=== PATIENT | female | born 1945 | race Caucasian/White ===

== ENCOUNTER 2017-10-06 11:18 | Emergency (ER) | payer OTHER, BC ==
[2017-10-06] MEDS ORDERED: METHYLPREDNISOLONE 125 MG INJ ONE (12:00)
[2017-10-06] MEDS ORDERED: LEVALBUTEROL 1.25 MG/3 ML NEB ONE (12:00)
[2017-10-06] MEDS ORDERED: IPRATROPIUM BROM 0.5MG/2.5ML ONE (12:00)
[2017-10-06 12:12] LABS: Absolute Lymphocytes (CBC) 1.5 K/uL (0.7-4.9); Absolute Monocytes 0.4 K/uL (0.1-1.3); Absolute Neutrophil 4.4 K/uL (1.8-8.0); Basophils % 0.5 % (0-1.3); Eosinophils % 8.3 % (0-4.4); Hematocrit 33.3 % (36.0-45.0); Lymphocytes % 21.8 % (15.3-44.8); MCH 30.1 pg (27.0-35.0); MCV 93.5 fL (80-100); MPV 10.2 fL (7.6-11.3); Monocytes % 6.4 % (3.3-12.3); RBC Red Blood Cell Count 3.56 M/uL (3.86-4.86)
[2017-10-06] MEDS ORDERED: MAGNESIUM SULFATE 1 gm IVPB 1 GM/100 ML BAG IV ONE (12:17)
[2017-10-06 12:41] LABS: Potassium 5.3 mEq/L (3.6-5.0)
--- NOTE | 2017-10-06 13:00 | RAD REPORT ---
EXAM DESCRIPTION: RAD - Chest Pa And Lat (2 Views) - 10/06/2017 12:53 pm CLINICAL HISTORY: Shortness of breath. COMPARISON: 06/23/2017, 05/19/2017 TECHNIQUE: PA and lateral views of the chest were obtained. FINDINGS: The lungs are hyperexpanded compatible with COPD. The heart is upper limit of normal in si ze. No fracture or aggressive bony process. IMPRESSION: COPD without acute process identified.
[2017-10-06] MEDS ORDERED: ALBUTEROL 2.5 MG/3 ML NEB SOL ONE (13:43)
--- NOTE | 2017-10-06 14:20 | ER ---
Nurse's Notes [facility] Name: Macrina Mason Age: 71 yrs Sex: Female : 1945 Arrival Date: 10/06/2017 Time: 11:23 Bed 6 Private MD: Diagnosis: Chronic obstructive pulmonary disease with (acute) exacerbation;Hyperkalemia Presentation: 10/06 11:38 Presenting complaint: Patient states: "I got diagnosed with COPD in Jul and I got lk1 really short of breath about 3-4 days ago. I am using about 5 breathing treatments a day.". Transition of care: patient was not received from another setting of care. Onset of symptoms was October 02, 2017. Care prior to arrival: None. 11:38 Method Of Arrival: Wheelchair lk1 11:38 Acuity: EVENS 2 lk1 Triage Assessment: 11:39 General: Appears distressed, Behavior is calm, cooperative, appropriate for age. Pain: lk1 Complains of pain in chest and head Pain currently is 7 out of 10 on a pain scale. Respiratory: Reports shortness of breath cough that is air hunger labored breathing pain with cough Airway is patent Respiratory effort is labored, with nasal flaring, pursed lip, using tripod position, Respiratory pattern is symmetrical, tachypnea Onset: The symptoms/episode began/occurred 3-4 days ago, the patient has moderate shortness of breath. Historical: - Allergies: 11:38 No Known Allergies; lk1 - PMHx: 11:38 Schizophrenia; DVT; Bipolar disorder; allergies; COPD; lk1 - PSHx: 11:38 ERIKA TKR; sinus; lk1 - Immunization history:: Adult Immunizations up to date. - Social history:: Smoking status: unknown. Screenin:40 Abuse screen: Denies threats or abuse. Denies injuries from another. Nutritional hj screening: No deficits noted. Tuberculosis screening: No symptoms or risk factors identified. Fall Risk None identified. Assessment: 11:40 General: Appears in no apparent distress. uncomfortable, Behavior is cooperative, hj appropriate for age, anxious. Pain: Denies pain. Neuro: Level of Consciousness is awake, alert, obeys commands, Oriented to person, place, time, situation, Appropriate for age. Cardiovascular: Capillary refill < 3 seconds Patient's skin is warm and dry. Cardiovascular: Rhythm is regular. Respiratory: Airway is patent Respiratory effort is labored, Respiratory pattern is tachypnea Breath sounds with wheezes. GI: Abdomen is obese. : No signs and/or symptoms were reported regarding the genitourinary system. EENT: No signs and/or symptoms were reported regarding the EENT system. Derm: No signs and/or symptoms reported regarding the dermatologic system. Musculoskeletal: No signs and/or symptoms reported regarding the musculoskeletal system. 12:45 Reassessment: Patient and/or family updated on plan of care and expected duration. Pain hj level reassessed. Patient is alert, oriented x 3, equal unlabored respirations, skin warm/dry/pink. Patient states feeling better. 13:52 Reassessment: Patient and/or family updated on plan of care and expected duration. Pain hj level reassessed. Patient is alert, oriented x 3, equal unlabored respirations, skin warm/dry/pink. Patient states feeling better. Patient states symptoms have improved. Vital Signs: 11:36 BP 158 / 63; Pulse 84; Resp 26; Temp 97.6(O); Pulse Ox 97% on R/A; Weight 134.26 kg lk1 (R); Height 5 ft. 10 in. (177.80 cm) (R); 12:08 BP 131 / 64; Pulse 84; Resp 18; Pulse Ox 100% on Nebulizer Mask; hj 13:51 BP 139 / 70; Pulse 85; Resp 18; Pulse Ox 100% on Nebulizer Mask; hj 14:48 BP 140 / 68; Pulse 86; Resp 18; Pulse Ox 97% on R/A; hj 11:36 Body Mass Index 42.47 (134.26 kg, 177.80 cm) lk1 ED Course: 11:23 Patient arrived in ED. mr 11:35 Mary Gage, JOHN [facility]. kb 11:35 Kameron Phipps MD is Attending Physician. kb 11:38 Paulino Valerio, BENTON is Primary Nurse. hj 11:39 Triage completed. lk1 11:40 Arm band placed on left wrist. lk1 11:40 Patient has correct armband on for positive identification. Placed in gown. Bed in low hj position. Call light in reach. Side rails up X 1. 11:40 Initial lab(s) drawn, by me, sent to lab. Inserted saline lock: 22 gauge in right hand, hj using aseptic technique. Blood collected. 12:00 Radiology exam delayed due to patient receiving breathing treatment at this time. la2 12:26 Radiology exam delayed due to patient is not appropriately dressed for the exam at this jb2 time. 12:52 X-ray completed. Patient tolerated procedure well. Patient moved back from radiology. jb2 12:53 Chest Pa And Lat (2 Views) XRAY In Process Unspecified. EDMS 14:46 No provider procedures requiring assistance completed. IV discontinued, intact, hj bleeding controlled, No redness/swelling at site. Pressure dressing applied. Administered Medications: 11:36 Drug: Xopenex (3) 1.25 mg Route: Inhalation; hj 12:05 Follow up: Response: No adverse reaction; Wheezing diminished hj 11:36 Drug: AtroVENT Aerosol 0.5 mg Route: Inhalation; hj 12:05 Follow up: Response: No adverse reaction; Wheezing diminished hj 11:39 Drug: SOLU-Medrol 125 mg Route: IVP; Site: right hand; hj 12:04 Follow up: Response: No adverse reaction hj 12:04 Drug: Magnesium Sulfate 1 grams Route: IVPB; Infused Over: 1 hrs; Site: right hand; hj 13:08 Drug: Albuterol 2.5 mg Route: Inhalation; hj 13:33 Drug: Albuterol 2.5 mg Route: Inhalation; hj 13:33 Drug: Albuterol 2.5 mg Route: Inhalation; hj Outcome: 14:19 Discharge ordered by MD. kb 14:46 Discharged to home via wheelchair. hj 14:46 Condition: stable 14:46 Discharge instructions given to patient, Instructed on discharge instructions, follow up and referral plans. medication usage, Demonstrated understanding of instructions, follow-up care, medications, Prescriptions given X 1. 14:47 Patient left the ED. hj Signatures: Dispatcher [employer] EDMI Mary Gage, JOHN BARBER-Supriya Miranda Kwaku Escobar jb2 Paulino Valerio RN RN hj Kluge, Leah, RN RN lk1 Eileen Nieves la2
--- NOTE | 2017-10-06 14:20 | EDPHYS ---
Physician Documentation [facility] Name: Macrina Mason Age: 71 yrs Sex: Female : 1945 Arrival Date: 10/06/2017 Time: 11:23 Bed 6 Private MD: ED Physician Kameron Phipps HPI: 10/06 12:02 This 71 yrs old Female presents to ER via Wheelchair with complaints of kb Cough, Breathing Difficulty. 12:02 The patient has shortness of breath at rest, and the patient has a history of COPD. kb Onset: The symptoms/episode began/occurred 4 day(s) ago, and became persistent. Duration: The symptoms are continuous. The patient's shortness of breath is aggravated by exertion, talking, is alleviated by nothing. Associated signs and symptoms: Pertinent positives: non-productive cough, Pertinent negatives: chest pain, productive cough, diaphoresis, dizziness, fever, hemoptysis, loss of consciousness, nausea, numbness in extremities, visual changes, vomiting. Severity of symptoms: At their worst the symptoms were moderate in the emergency department the symptoms are unchanged. The patient has experienced similar episodes in the past, several times. The patient has not recently seen a physician. Pt states she was diagnosed with COPD last year. Last saw Dr Clement in and was given neb treatments and inhalers. States she started having more difficulty breathing and a cough a few days ago, called [facility] and he told her she needed to see a ground crewman. Has an appt 10/19 with Terry. . Historical: - Allergies: 11:38 No Known Allergies; lk1 - PMHx: 11:38 Schizophrenia; DVT; Bipolar disorder; allergies; COPD; lk1 - PSHx: 11:38 ERIKA TKR; sinus; lk1 - Immunization history:: Adult Immunizations up to date. - Social history:: Smoking status: unknown. ROS: 11:42 Constitutional: Negative for fever, chills, and weight loss, Cardiovascular: Negative kb for chest pain, palpitations, and edema, Abdomen/GI: Negative for abdominal pain, nausea, vomiting, diarrhea, and constipation, Back: Negative for injury and pain, MS/Extremity: Negative for injury and deformity, Skin: Negative for injury, rash, and discoloration, Neuro: Negative for headache, weakness, numbness, tingling, and seizure. 11:42 Respiratory: Positive for cough, shortness of breath, wheezing, Negative for dyspnea on exertion, hemoptysis, orthopnea, pleurisy, sputum production. Exam: 11:42 Constitutional: This is a well developed, well nourished patient who is awake, alert, kb and in no acute distress. Head/Face: Normocephalic, atraumatic. ENT: Nares patent. No nasal discharge, no septal abnormalities noted. Tympanic membranes are normal and external auditory canals are clear. Oropharynx with no redness, swelling, or masses, exudates, or evidence of obstruction, uvula midline. Mucous membranes moist. Chest/axilla: Normal chest wall appearance and motion. Nontender with no deformity. No lesions are appreciated. Cardiovascular: Regular rate and rhythm with a normal S1 and S2. No gallops, murmurs, or rubs. Normal PMI, no JVD. No pulse deficits. Abdomen/GI: Soft, non-tender, with normal bowel sounds. No distension or tympany. No guarding or rebound. No evidence of tenderness throughout. Back: No spinal tenderness. No costovertebral tenderness. Full range of motion. Skin: Warm, dry with normal turgor. Normal color with no rashes, no lesions, and no evidence of cellulitis. MS/ Extremity: Pulses equal, no cyanosis. Neurovascular intact. Full, normal range of motion. Neuro: Awake and alert, GCS 15, oriented to person, place, time, and situation. Cranial nerves II-XII grossly intact. Motor strength 5/5 in all extremities. Sensory grossly intact. Cerebellar exam normal. Normal gait. 11:42 Respiratory: mild respiratory distress is noted, moderate respiratory distress is noted, Respirations: labored breathing, Breath sounds: wheezing: expiratory that is moderate, is heard diffusely. 13:17 Respiratory: the patient does not display signs of respiratory distress, Respirations: kb normal, Breath sounds: wheezing: expiratory that is mild, is heard diffusely. Vital Signs: 11:36 BP 158 / 63; Pulse 84; Resp 26; Temp 97.6(O); Pulse Ox 97% on R/A; Weight 134.26 kg lk1 (R); Height 5 ft. 10 in. (177.80 cm) (R); 12:08 BP 131 / 64; Pulse 84; Resp 18; Pulse Ox 100% on Nebulizer Mask; hj 13:51 BP 139 / 70; Pulse 85; Resp 18; Pulse Ox 100% on Nebulizer Mask; hj 14:48 BP 140 / 68; Pulse 86; Resp 18; Pulse Ox 97% on R/A; hj 11:36 Body Mass Index 42.47 (134.26 kg, 177.80 cm) lk1 MDM: 11:35 Patient medically screened. kb 11:42 Data reviewed: vital signs, nurses notes. Data interpreted: Pulse oximetry: on room air kb is 97 %. Interpretation: normal. ED course: O2 sat decreased to 93% while talking and with exertion. O2 sat remains at 97% while pt is at rest. . 13:17 ED course: Pt resting on stretcher, resp even and unlabored. No apparent distress. 100% kb on room air. . 13:59 Counseling: I had a detailed discussion with the patient and/or guardian regarding: the kb historical points, exam findings, and any diagnostic results supporting the discharge/admit diagnosis, lab results, radiology results, the need for outpatient follow up, a family practitioner. 14:18 ED course: Pt states she is feeling much better and wants to go home. Educated on kb elevated potassium. Given albuterol to decrease level. Pt will follow up with Dr Clement. . 04 11:36 Order name: CBC with Diff; Complete Time: 12:25 kb 10/06 11:36 Order name: Basic Metabolic Panel; Complete Time: 13:06 kb 10/06 11:36 Order name: Chest Pa And Lat (2 Views) XRAY; Complete Time: 13:01 kb 10/06 11:36 Order name: IV Start; Complete Time: 11:56 kb Administered Medications: 11:36 Drug: Xopenex (3) 1.25 mg Route: Inhalation; hj 12:05 Follow up: Response: No adverse reaction; Wheezing diminished hj 11:36 Drug: AtroVENT Aerosol 0.5 mg Route: Inhalation; hj 12:05 Follow up: Response: No adverse reaction; Wheezing diminished hj 11:39 Drug: SOLU-Medrol 125 mg Route: IVP; Site: right hand; hj 12:04 Follow up: Response: No adverse reaction hj 12:04 Drug: Magnesium Sulfate 1 grams Route: IVPB; Infused Over: 1 hrs; Site: right hand; hj 13:08 Drug: Albuterol 2.5 mg Route: Inhalation; hj 13:33 Drug: Albuterol 2.5 mg Route: Inhalation; hj 13:33 Drug: Albuterol 2.5 mg Route: Inhalation; hj Disposition: 10/07 07:30 Co-signature as Attending Physician, Kameron Phipps MD I agree with the assessment and joelle plan of care. Disposition: 10/06/17 14:19 Discharged to Home. Impression: Chronic obstructive pulmonary disease with (acute) exacerbation, Hyperkalemia. - Condition is Stable. - Discharge Instructions: Chronic Obstructive Pulmonary Disease. - Prescriptions for prednisone 10 mg Oral tablet - take 1 tablet by ORAL route 2 times per day for 10 days; 20 tablet. - Medication Reconciliation Form, Thank You Letter, Antibiotic Education, Prescription Opioid Use form. - Follow up: Emergency Department; When: As needed; Reason: Worsening of condition. Follow up: Private Physician; When: 2 - 3 days; Reason: Recheck today's complaints, Continuance of care, Re-evaluation by your physician. Signatures: Dispatcher [employer] Mary Alberts, BUSINESS DEVELOPMENT ENGINEER-C BUSINESS DEVELOPMENT ENGINEER-Kameron Friedman MD MD cha Joaquin, Henry, RN RN Linda Pulido RN RN lk1
[2017-10-06 14:53] VITALS: TEMP 97.6
[2017-10-06 14:56] VITALS: BP 140/68; O2SAT 97
== END 2017-10-06 14:47 | disposition home or self-care (01) ==
LOC: ER 11:18
DX: J44.1 Chronic obstructive pulmonary disease with (acute) exacerbation (principal); E87.5 Hyperkalemia
CPT/HCPCS: 36415; 71046; 80048; 85025; 96374; 96375; 99284; J2930; J3475

== ENCOUNTER 2017-11-09 19:49 | Emergency (ER) | payer OTHER, BC ==
--- NOTE | 2017-11-09 20:54 | RAD REPORT ---
EXAM DESCRIPTION: CT - Stone Protocol - 11/09/2017 8:37 pm CLINICAL HISTORY: Abdominal pain. Status post fall. COMPARISON: 2011 TECHNIQUE: Computed axial tomography of the abdomen pelvis was obtained without oral or IV contrast. Lack of IV and oral contrast limits evaluation of solid organs, bowel, and vessels. Coronal reformat james images were obtained and reviewed. All CT scans are performed using dose optimization technique as appropriate and may include automated exposure control or mA/KV adjustment according to patient size. FINDINGS: A renal calculus is not seen. An ureteral calculus is not noted. A bladder calculus is not present. Renal cortical thinning is present. Moderate dilatation of a left extrarenal pelvis has dev eloped. An 18 millimeter left renal cyst is suspected the. The liver, spleen, pancreas and adrenals appear grossly normal There is no evidence of diverticulitis. Spondylosis involves the lumbar spine resulting in spinal stenosis A filter has been placed into the inferior vena cava. One of the limbs protrudes through the wall sev eral millimeters medial A hysterectomy has been performed. A moderate amount of stool is present within the colon . Mild stra nding within the central mesentery is unchanged IMPRESSION: Negative for a genitourinary calculus Moderate dilatation of a left extrarenal pelvis may be secondary to a stricture. If clinically indica jaems a nuclear medicine renal scan with Lasix may be helpful Spondylosis involving lumbar spine resulting in spinal stenosis
[2017-11-09] MEDS ORDERED: KETOROLAC 30 MG/ML INJ ONE (20:55)
--- NOTE | 2017-11-09 21:01 | RAD REPORT ---
EXAM DESCRIPTION: RAD - Knee Right 3 View - 11/09/2017 8:53 pm CLINICAL HISTORY: Right knee pain status post fall FINDINGS: No fracture or dislocation is seen. Right knee arthroplasty has been performed. There is no evidence of loosening of the prosthesis
--- NOTE | 2017-11-09 21:14 | ER ---
Nurse's Notes [facility] Name: Macrina Mason Age: 71 yrs Sex: Female : 1945 Arrival Date: 11/09/2017 Time: 19:51 Bed 15 Private MD: Diagnosis: Contusion of lower back and pelvis;Contusion of right knee;Contusion of left knee Presentation: 11/09 19:49 Presenting complaint: EMS states: Pt called EMS due to fall when going to the restroom. ea Pt denied hitting head or LOC. Complaining of lower back pain and erika arm pain. Transition of care: patient was not received from another setting of care. Onset of symptoms was November 09, 2017. Initial Sepsis Screen: Does the patient meet any 2 criteria? No. Patient's initial sepsis screen is negative. Does the patient have a suspected source of infection? No. Patient's initial sepsis screen is negative. Care prior to arrival: None. 19:49 Method Of Arrival: EMS: [facility] ea 19:49 Acuity: [place] 3 ea Triage Assessment: 19:55 General: Appears in no apparent distress. Behavior is calm, cooperative, appropriate ea for age. General: Pt reports she was trying to transfer herself to the restroom and her knees gave out. . General: Pt denies hitting head, or LOC. Pain: Complains of pain in lumbar area, left low back, right low back, right arm, left arm, right knee and left knee Pain currently is 9 out of 10 on a pain scale. Quality of pain is described as aching. Neuro: Level of Consciousness is awake, alert, obeys commands, Oriented to person, place, time, situation. Respiratory: Airway is patent Respiratory effort is even, unlabored, Respiratory pattern is regular, symmetrical. Historical: - Allergies: 19:54 No Known Allergies; ea - PMHx: 19:54 allergies; Bipolar disorder; COPD; DVT; Schizophrenia; ea - PSHx: 19:54 sinus; ERIKA TKR; ea - Immunization history:: Adult Immunizations up to date. - Social history:: Smoking status: . Screenin:58 Abuse screen: Denies threats or abuse. Nutritional screening: No deficits noted. ea Tuberculosis screening: No symptoms or risk factors identified. Fall Risk Fall in past 12 months (25 points). Assessment: 20:13 General: Appears uncomfortable, well developed, well nourished, Behavior is rk2 cooperative. Pain: Complains of pain in right leg and back and right knee and right low back and left low back and lumbar area and left leg and left arm and right arm and left knee. Neuro: Level of Consciousness is alert, Oriented to person, place, time, situation. Respiratory: Airway is patent Respiratory effort is even, unlabored, Respiratory pattern is regular, symmetrical. Derm: Skin is pink, warm \T\ dry. Injury Description: No obvious trauma noted. 20:28 Reassessment: Pt. taken to radiology on stretcher by tech.. rk2 21:40 Reassessment: Pt. placed onto bedside commode... in room. rk2 Vital Signs: 19:49 BP 138 / 83; Pulse 78; Resp 18; Temp 97.8(O); Pulse Ox 100% on R/A; Weight 140.61 kg; ea Height 5 ft. 10 in. (177.80 cm); Pain 9/10; 21:15 BP 123 / 78; Pulse 72; Resp 18; Pulse Ox 98% on R/A; rk2 19:49 Body Mass Index 44.48 (140.61 kg, 177.80 cm) ea ED Course: 19:51 Patient arrived in ED. ea 19:53 Cheng Sanches MD is Attending Physician. gs 19:53 Triage completed. ea 19:59 Patient has correct armband on for positive identification. Bed in low position. Call ea light in reach. Side rails up X2. 19:59 Arm band placed on right wrist. ea 20:07 Emma Rodrigez, RN is Primary Nurse. rk2 20:[address] vm2 20:37 CT completed. Patient moved back from CT. vm2 20:37 CT Stone Protocol In Process Unspecified. EDMS 20:52 X-ray completed. Portable x-ray completed in exam room. Patient tolerated procedure kc2 well. 20:53 Knee Right 3 View XRAY In Process Unspecified. EDMS 21:56 No provider procedures requiring assistance completed. rk2 Administered Medications: 20:57 Drug: TORadol 30 mg Route: IVP; Site: Other; rk2 21:43 Follow up: Response: No adverse reaction rk2 Outcome: 21:13 Discharge ordered by . gs 21:56 Discharged to home via wheelchair. rk2 21:56 Condition: unchanged 21:56 Discharge instructions given to patient, family, Prescriptions given X 1. 22:11 Patient left the ED. rk2 Signatures: Dispatcher [employer] Wendi Sanchez kc2 Dona Navarrete2 Sammie Paz RN Cheng Mcfadden ea, MD MD Emma Rodrigez RN RN rk2
--- NOTE | 2017-11-09 21:14 | EDPHYS ---
Physician Documentation [facility] Name: Macrina Mason Age: 71 yrs Sex: Female : 1945 Arrival Date: 11/09/2017 Time: 19:51 Bed 15 Private MD: ED Physician Cheng Sanches HPI: 11/09 21:00 This 71 yrs old Female presents to ER via EMS with complaints of Fall Injury. gs 21:00 Details of fall: The patient fell from an upright position, while walking. Onset: The gs symptoms/episode began/occurred acutely, just prior to arrival. Associated injuries: The patient sustained injury to the low back, pain with movement, right knee. Severity of symptoms: At their worst the symptoms were moderate, in the emergency department the symptoms are unchanged. The patient has experienced similar episodes in the past, a few times. Historical: - Allergies: 19:54 No Known Allergies; ea - PMHx: 19:54 allergies; Bipolar disorder; COPD; DVT; Schizophrenia; ea - PSHx: 19:54 sinus; ERIKA TKR; ea - Immunization history:: Adult Immunizations up to date. - Social history:: Smoking status: . ROS: 21:00 All other systems are negative. gs Exam: 21:00 Head/Face: Normocephalic, atraumatic. Eyes: Pupils equal round and reactive to light, gs extra-ocular motions intact. Lids and lashes normal. Conjunctiva and sclera are non-icteric and not injected. Cornea within normal limits. Periorbital areas with no swelling, redness, or edema. ENT: Nares patent. No nasal discharge, no septal abnormalities noted. Tympanic membranes are normal and external auditory canals are clear. Oropharynx with no redness, swelling, or masses, exudates, or evidence of obstruction, uvula midline. Mucous membranes moist. Neck: Trachea midline, no thyromegaly or masses palpated, and no cervical lymphadenopathy. Supple, full range of motion without nuchal rigidity, or vertebral point tenderness. No Meningismus. Chest/axilla: Normal chest wall appearance and motion. Nontender with no deformity. No lesions are appreciated. Cardiovascular: Regular rate and rhythm with a normal S1 and S2. No gallops, murmurs, or rubs. Normal PMI, no JVD. No pulse deficits. Respiratory: Lungs have equal breath sounds bilaterally, clear to auscultation and percussion. No rales, rhonchi or wheezes noted. No increased work of breathing, no retractions or nasal flaring. Abdomen/GI: Soft, non-tender, with normal bowel sounds. No distension or tympany. No guarding or rebound. No evidence of tenderness throughout. Skin: Warm, dry with normal turgor. Normal color with no rashes, no lesions, and no evidence of cellulitis. Neuro: Awake and alert, GCS 15, oriented to person, place, time, and situation. Cranial nerves II-XII grossly intact. Motor strength 5/5 in all extremities. Sensory grossly intact. Cerebellar exam normal. Normal gait. 21:00 Constitutional: The patient appears alert, awake. 21:00 Back: vertebral tenderness, is appreciated at L3 and L4. 21:00 Musculoskeletal/extremity: ROM: limited active range of motion due to pain, limited passive range of motion due to pain, Joints: the right knee displays painful range of motion, tenderness. Vital Signs: 19:49 BP 138 / 83; Pulse 78; Resp 18; Temp 97.8(O); Pulse Ox 100% on R/A; Weight 140.61 kg; ea Height 5 ft. 10 in. (177.80 cm); Pain 9/10; 21:15 BP 123 / 78; Pulse 72; Resp 18; Pulse Ox 98% on R/A; rk2 19:49 Body Mass Index 44.48 (140.61 kg, 177.80 cm) ea MDM: 19:58 Patient medically screened. 21:00 Data reviewed: vital signs, nurses notes. Response to treatment: and as a result, I will discharge patient. 21:44 ED course: discussed with rads 3mm protrusion this is considered not pathologic per literature, plan discharge. 11/09 19:58 Order name: Knee Right 3 View XRAY; Complete Time: 21:11 11/09 19:58 Order name: CT Stone Protocol; Complete Time: 21:11 Administered Medications: 20:57 Drug: TORadol 30 mg Route: IVP; Site: Other; rk2 21:43 Follow up: Response: No adverse reaction rk2 Disposition: 11/09/17 21:13 Discharged to Home. Impression: Contusion of lower back and pelvis, Contusion of right knee, Contusion of left knee. - Condition is Stable. - Prescriptions for Tylenol- Codeine #4 300-60 mg Oral Tablet - take 1 tablet by ORAL route every 6 hours As needed; 10 tablet. - Medication Reconciliation Form, Thank You Letter, Antibiotic Education, Prescription Opioid Use form. - Follow up: Private Physician; When: 2 - 3 days; Reason: Re-evaluation by your physician. Signatures: Dispatcher [employer] EDMS Sammie Paz RN RN ea Cheng Sanches MD MD Emma Rodrigez RN RN rk2 Corrections: (The following items were deleted from the chart) 22:11 21:13 11/09/2017 21:13 Discharged to Home. Impression: Contusion of lower back and rk2 pelvis; Contusion of right knee; Contusion of left knee. Condition is Stable. Forms are Medication Reconciliation Form, Thank You Letter, Antibiotic Education, Prescription Opioid Use. Follow up: Private Physician; When: 2 - 3 days; Reason: Re-evaluation by your physician.
[2017-11-09 22:16] VITALS: TEMP 97.8
[2017-11-09 22:17] VITALS: BP 123/78; O2SAT 98
== END 2017-11-09 22:11 | disposition home or self-care (01) ==
LOC: ER 19:49
DX: S30.0XXA Contusion of lower back and pelvis, initial encounter (principal); S80.02XA Contusion of left knee, initial encounter; S80.01XA Contusion of right knee, initial encounter; W18.39XA Other fall on same level, initial encounter; Y93.01 Activity, walking, marching and hiking; Y92.9 Unspecified place or not applicable
CPT/HCPCS: 74176; 76377; 96374; 99284

== ENCOUNTER 2017-12-02 10:51 | Emergency (ER) | payer OTHER, BC ==
[2017-12-02] MEDS ORDERED: FENTANYL CITR 100 MCG/2 ML ONE (11:15)
--- NOTE | 2017-12-02 12:03 | ER ---
Nurse's Notes [facility] Name: Macrina Mason Age: 72 yrs Sex: Female : 1945 Arrival Date: 12/02/2017 Time: 10:56 Bed 18 Private MD: Rafael Clement Diagnosis: Cumminuted non-dispalced left humeral head fracture. S/p fall Presentation: 12/02 10:57 Presenting complaint: EMS states: EMS states patient was ambulating with walker, walker ae1 got caught on step and patient fell forward striking her left shoulder. Denies LOC. Transition of care: patient was not received from another setting of care. Onset of symptoms was December 02, 2017. 10:57 Method Of Arrival: EMS: [facility] ae1 11:16 Risk Assessment: Do you want to hurt yourself or someone else? Patient reports no ae1 desire to harm self or others. Initial Sepsis Screen: Does the patient meet any 2 criteria? No. Patient's initial sepsis screen is negative. Does the patient have a suspected source of infection? No. Patient's initial sepsis screen is negative. Care prior to arrival: Medication(s) given: zofran 4 mg, fentanyl 100 mcg IVP IV initiated. 20 GA, in the right hand. 11:16 Acuity: [place] 4 ae1 Triage Assessment: 11:17 General: Appears uncomfortable, obese, Behavior is cooperative, anxious, crying, ae1 restless. Pain: Complains of pain in anterior aspect of left shoulder and posterior aspect of left shoulder Pain radiates to left arm. Neuro: Level of Consciousness is awake, alert, obeys commands, Oriented to person, place, time, situation. Respiratory: Airway is patent Respiratory effort is even, unlabored, Respiratory pattern is regular, symmetrical. 11:17 EENT: No signs and/or symptoms were reported regarding the EENT system. ae1 11:17 Cardiovascular: cool and dry. ae1 11:17 GI: Abdomen is round obese. : No signs and/or symptoms were reported regarding the ae1 genitourinary system. Derm: Skin is pale, Patient has Fentanyl patches on ERIKA arms, 25 mcg each. Historical: - Allergies: 11:03 No Known Allergies; ae1 - PMHx: 11:04 allergies; Bipolar disorder; COPD; DVT; Schizophrenia; ae1 - Immunization history:: Last tetanus immunization: > 10 years ago. - Social history:: Smoking status: Patient/guardian denies using tobacco, never smoked. - Ebola Screening: : Patient negative for fever greater than or equal to 101.5 degrees Fahrenheit, and additional compatible Ebola Virus Disease symptoms Patient denies exposure to infectious person Patient denies travel to an Ebola-affected area in the 21 days before illness onset. Screenin:21 Abuse screen: Denies threats or abuse. Nutritional screening: No deficits noted. ae1 Tuberculosis screening: No symptoms or risk factors identified. Fall Risk Fall in past 12 months (25 points). Secondary diagnosis (15 points) impaired mobility, IV access (20 points). Ambulatory Aid- Crutches/Cane/Walker (15 pts). Gait- Impaired (20 pts.). Mental Status- Oriented to own ability (0 pts). Assessment: 12:47 Pain: Complains of pain in anterior aspect of left shoulder and posterior aspect of ae1 left shoulder Pain currently is 10 out of 10 on a pain scale. Noted to be crying, moaning, Provider notified, no new orders received at this time. Tourism Radio Presenter consult initiated. 12:57 Reassessment: patient updated on plan of care, awaiting Tourism Radio Presenter consult. ae1 13:30 Reassessment: Boat Outfitting Supervisor Natali at bedside discussing options with patient. ae1 13:35 Reassessment: Provider at bedside discussing plan of care. ae1 13:50 Reassessment: Patient and/or family updated on plan of care and expected duration. Pain ae1 level reassessed. General: Behavior is anxious, crying, restless. Pain: Complains of pain in anterior aspect of left shoulder and posterior aspect of left shoulder Noted to be crying, moaning, restless. 14:28 Reassessment: Patient assisted to restroom via wheelchair. Patient tolerated poorly. ae1 Pain: Complains of pain in anterior aspect of left shoulder and posterior aspect of left shoulder Pain currently is 10 out of 10 on a pain scale. Quality of pain is described as sharp, stabbing, Noted to be agitated, crying, grimacing, moaning, restless. 14:40 Reassessment: patient reports nausea, provider notified, new orders received. ae1 14:51 Reassessment: Patient still awaiting transportation home. Patient states her daughter ae1 is coming from [facility] to pick her up. 15:17 Reassessment: is now at bedside. Reassessment: No changes from previously ae1 documented assessment. Pain: Complains of pain in anterior aspect of left shoulder and posterior aspect of left shoulder Noted to be crying, moaning. Vital Signs: 11:05 BP 151 / 102; Pulse 79; Resp 24 S; Pulse Ox 97% on R/A; Weight 139.71 kg (R); Pain ae1 1010; 11:45 BP 108 / 51; Pulse 57; Resp 19; Pulse Ox 96% on R/A; ae1 12:12 Temp 97.8(O); ae1 13:51 BP 120 / 96; Pulse 62; Resp 21 S; Pulse Ox 95% on R/A; ae1 ED Course: 10:56 Patient arrived in ED. ae1 10:56 Kevyn Carrillo MD is Attending Physician. kdr 10:57 Rahul Guajardo RN is Primary Nurse. ae1 11:03 Bed in low position. Call light in reach. Side rails up X2. Pulse ox on. NIBP on. Warm ae1 blanket given. 11:10 Arm band placed on right wrist. ae1 11:17 Triage completed. ae1 11:47 X-ray completed. Portable x-ray completed in exam room. Patient tolerated procedure ml well. 11:48 Shoulder Left (2 View) XRAY In Process Unspecified. EDMS 11:48 Clavicle Left XRAY In Process Unspecified. EDMS 11:48 Humerus Left XRAY In Process Unspecified. EDMS 11:50 Rafael Clement MD is Private Physician. rg4 11:56 Rafael Clement MD is Referral Physician. kdr 11:56 Krishna Cole MD is Referral Physician. kdr 16:23 No provider procedures requiring assistance completed. IV discontinued. rk2 Administered Medications: 11:21 Drug: fentaNYL (PF) 50 mcg Route: IVP; Site: right hand; ae1 12:01 Follow up: Response: Pain is unchanged, physician notified ae1 12:12 Not Given (Hemodynamic Parameters; Provider notified. ): morphine 5 mg IM once ae1 12:12 Drug: [place] 10 mg-325 mg 1 tabs Route: PO; ae1 13:51 Follow up: Response: Pain is unchanged, physician notified ae1 14:44 Drug: Zofran 4 mg Route: IVP; Site: right hand; ae1 Outcome: 12:02 Discharge ordered by . kdr 16:23 Discharged to home via wheelchair. rk2 16:23 Condition: good 16:23 Discharge instructions given to patient, family, Prescriptions given X 1. 16:26 Patient left the ED. rk2 Signatures: Dispatcher [employer] EDMS Kevyn Carrillo MD MD kdr Lopez, Melissa ml Elliott, Andrea, RN RN ae1 Arleen Moore 4 Emma Rodrigez RN RN rk2 Corrections: (The following items were deleted from the chart) 14:15 11:17 Cardiovascular: ae1 ae1
--- NOTE | 2017-12-02 12:03 | EDPHYS ---
Physician Documentation [facility] Name: Macrina Mason Age: 72 yrs Sex: Female : 1945 Arrival Date: 12/02/2017 Time: 10:56 Bed 18 Private MD: Rafael Clement ED Physician Kevyn Carrillo HPI: 12/02 12:13 This 72 yrs old Female presents to ER via EMS with complaints of Fall Injury. kdr 12:13 Details of fall: The patient fell from an upright position, while standing. Onset: The kdr symptoms/episode began/occurred suddenly, just prior to arrival. Associated injuries: The patient sustained anterior aspect of left shoulder, left bicep, posterior aspect of left shoulder, left axilla and left tricep, decreased range of motion, painful injury. Severity of symptoms: At their worst the symptoms were severe, incapacitating, just prior to arrival, in the emergency department the symptoms are unchanged. The patient has not experienced similar symptoms in the past. The patient has not recently seen a physician. Historical: - Allergies: 11:03 No Known Allergies; ae1 - PMHx: 11:04 allergies; Bipolar disorder; COPD; DVT; Schizophrenia; ae1 - Immunization history:: Last tetanus immunization: > 10 years ago. - Social history:: Smoking status: Patient/guardian denies using tobacco, never smoked. - Ebola Screening: : Patient negative for fever greater than or equal to 101.5 degrees Fahrenheit, and additional compatible Ebola Virus Disease symptoms Patient denies exposure to infectious person Patient denies travel to an Ebola-affected area in the 21 days before illness onset. ROS: 12:13 Constitutional: Negative for fever, chills, and weight loss, Eyes: Negative for injury, kdr pain, redness, and discharge, Neck: Negative for injury, pain, and swelling, Cardiovascular: Negative for chest pain, palpitations, and edema, Respiratory: Negative for shortness of breath, cough, wheezing, and pleuritic chest pain, Abdomen/GI: Negative for abdominal pain, nausea, vomiting, diarrhea, and constipation, Back: Negative for injury and pain, : Negative for injury, bleeding, discharge, and swelling, Skin: Negative for injury, rash, and discoloration, Neuro: Negative for headache, weakness, numbness, tingling, and seizure activity. Psych: Negative for depression, anxiety, suicide ideation, homicidal ideation, and hallucinations, Allergy/Immunology: Negative for hives, rash, and allergies, Endocrine: Negative for neck swelling, polydipsia, polyuria, polyphagia, and marked weight changes, Hematologic/Lymphatic: Negative for swollen nodes, abnormal bleeding, and unusual bruising. 12:13 MS/extremity: Positive for injury or acute deformity, decreased range of motion, pain, tenderness, Negative for 12:13 Skin: Positive for abrasion(s), of the left knee. Exam: 12:13 Constitutional: This is a well developed, well nourished patient who is awake, alert, kdr and in no acute distress. Head/Face: Normocephalic, atraumatic. Eyes: Pupils equal round and reactive to light, extra-ocular motions intact. Lids and lashes normal. Conjunctiva and sclera are non-icteric and not injected. Cornea within normal limits. Periorbital areas with no swelling, redness, or edema. Neck: Trachea midline, no thyromegaly or masses palpated, and no cervical lymphadenopathy. Supple, full range of motion without nuchal rigidity, or vertebral point tenderness. No Meningismus. Chest/axilla: Normal chest wall appearance and motion. Nontender with no deformity. No lesions are appreciated. Cardiovascular: Regular rate and rhythm with a normal S1 and S2. No gallops, murmurs, or rubs. Normal PMI, no JVD. No pulse deficits. Respiratory: Lungs have equal breath sounds bilaterally, clear to auscultation and percussion. No rales, rhonchi or wheezes noted. No increased work of breathing, no retractions or nasal flaring. Abdomen/GI: Soft, non-tender, with normal bowel sounds. No distension or tympany. No guarding or rebound. No evidence of tenderness throughout. Back: No spinal tenderness. No costovertebral tenderness. Full range of motion. Neuro: Awake and alert, GCS 15, oriented to person, place, time, and situation. Cranial nerves II-XII grossly intact. Motor strength 5/5 in all extremities. Sensory grossly intact. Cerebellar exam normal. Normal gait. Psych: Awake, alert, with orientation to person, place and time. Behavior, mood, and affect are within normal limits. 12:13 Skin: injury, abrasion(s), moderate sized abrasion noted, of the left scapular area, right arm, right leg and left leg. Vital Signs: 11:05 BP 151 / 102; Pulse 79; Resp 24 S; Pulse Ox 97% on R/A; Weight 139.71 kg (R); Pain ae1 10/10; 11:45 BP 108 / 51; Pulse 57; Resp 19; Pulse Ox 96% on R/A; ae1 12:12 Temp 97.8(O); ae1 13:51 BP 120 / 96; Pulse 62; Resp 21 S; Pulse Ox 95% on R/A; ae1 MDM: 12:02 Patient medically screened. kdr 12:13 Data reviewed: vital signs, nurses notes, radiologic studies. Counseling: I had a kdr detailed discussion with the patient and/or guardian regarding: the historical points, exam findings, and any diagnostic results supporting the discharge/admit diagnosis, radiology results, the need for outpatient follow up. 12/02 11:03 Order name: Shoulder Left (2 View) XRAY; Complete Time: 12:45 kdr 12/02 11:03 Order name: Clavicle Left XRAY; Complete Time: 12:45 kdr 12/02 11:03 Order name: Humerus Left XRAY; Complete Time: 12:45 kdr 12/02 11:55 Order name: Sling: To left arm; Complete Time: 12:21 kdr Administered Medications: 11:21 Drug: fentaNYL (PF) 50 mcg Route: IVP; Site: right hand; ae1 12:01 Follow up: Response: Pain is unchanged, physician notified ae1 12:12 Not Given (Hemodynamic Parameters; Provider notified. ): morphine 5 mg IM once ae1 12:12 Drug: [place] 10 mg-325 mg 1 tabs Route: PO; ae1 13:51 Follow up: Response: Pain is unchanged, physician notified ae1 14:44 Drug: Zofran 4 mg Route: IVP; Site: right hand; ae1 Disposition: 12/02/17 12:02 Discharged to Home. Impression: Cumminuted non-dispalced left humeral head fracture. S/p fall. - Condition is Stable. - Discharge Instructions: Shoulder Fracture, Humerus Fracture, Treated with Immobilization. - Prescriptions for Tylenol- Codeine #3 300-30 mg Oral Tablet - take 2 tablet by ORAL route every 6 hours As needed; 30 tablet. - Medication Reconciliation Form, Thank You Letter, Prescription Opioid Use form. - Follow up: Rafael Clement MD; When: 2 - 3 days; Reason: If symptoms return, Further diagnostic work-up, Recheck today's complaints, Continuance of care, Re-evaluation by your physician. Follow up: Krishna Cole MD; When: 1 - 2 days; Reason: If symptoms return, Further diagnostic work-up, Recheck today's complaints, Continuance of care, Re-evaluation by your physician. - Problem is new. - Symptoms have improved. Signatures: Dispatcher [employer] EDMS Kevyn Carrillo MD MD kdr Rahul Guajardo RN RN ae1 Emma Rodrigez RN RN rk2 Corrections: (The following items were deleted from the chart) 16:26 12:02 12/02/2017 12:02 Discharged to Home. Impression: Cumminuted non-dispalced left rk2 humeral head fracture. S/p fall. Condition is Stable. Forms are Medication Reconciliation Form, Thank You Letter, Antibiotic Education, Prescription Opioid Use. Follow up: Rafael Clement; When: 2 - 3 days; Reason: If symptoms return, Further diagnostic work-up, Recheck today's complaints, Continuance of care, Re-evaluation by your physician. Follow up: Krishna Cole; When: 1 - 2 days; Reason: If symptoms return, Further diagnostic work-up, Recheck today's complaints, Continuance of care, Re-evaluation by your physician. Problem is new. Symptoms have improved. kdr
[2017-12-02] MEDS ORDERED: HYDROCODONE/APAP 10/325 TAB ONE (12:12)
--- NOTE | 2017-12-02 12:40 | RAD REPORT ---
EXAM DESCRIPTION: RAD - Clavicle Left - 12/02/2017 11:48 am CLINICAL HISTORY: Left shoulder pain status post fall FINDINGS: No fracture or dislocation is seen involving the left clavicle
--- NOTE | 2017-12-02 12:43 | RAD REPORT ---
EXAM DESCRIPTION: RAD - Shoulder Left 2 View - 12/02/2017 11:48 am CLINICAL HISTORY: Left shoulder pain status post fall FINDINGS: A mildly displaced fracture involves the humeral head. The greater tubercle is avulsed. No dislocation is seen
--- NOTE | 2017-12-02 12:44 | RAD REPORT ---
EXAM DESCRIPTION: RAD - Humerus Left - 12/02/2017 11:48 am CLINICAL HISTORY: Left arm pain status post fall FINDINGS: A mildly displaced fracture involves the humeral head. The greater tubercle is avulsed. No dislocation is seen
[2017-12-02] MEDS ORDERED: ONDANSETRON 4 MG/2 ML VIAL ONE (14:47)
[2017-12-02 16:37] VITALS: TEMP 97.8
[2017-12-02 16:38] VITALS: BP 120/96; O2SAT 95
== END 2017-12-02 16:26 | disposition home or self-care (01) ==
LOC: ER 10:51
DX: S42.295A Other nondisplaced fracture of upper end of left humerus, initial encounter for closed fracture (principal); W18.39XA Other fall on same level, initial encounter; Y93.89 Activity, other specified; Y92.9 Unspecified place or not applicable; Y99.9 Unspecified external cause status; J44.9 Chronic obstructive pulmonary disease, unspecified
CPT/HCPCS: 73000; 73030; 73060; 96374; 96375; 99284; J2405; J3010

== ENCOUNTER 2018-03-12 13:13 | Emergency (ER) | payer OTHER, BC ==
[2018-03-12] MEDS ORDERED: MEPERIDINE HCL 50 MG/ML AMP ONE ×2 (14:36→17:18)
[2018-03-12] MEDS ORDERED: NA CHLORIDE 0.9% 500 ML ONE (14:36)
[2018-03-12 14:56] LABS: Absolute Lymphocytes (CBC) 1.5 K/uL (0.7-4.9); Absolute Monocytes 0.4 K/uL (0.1-1.3); Absolute Neutrophil 4.8 K/uL (1.8-8.0); Basophils % 0.4 % (0-1.3); Eosinophils % 3.7 % (0-4.4); Hematocrit 32.2 % (36.0-45.0); Lymphocytes % 21.7 % (15.3-44.8); MCH 30.4 pg (27.0-35.0); MCV 89.2 fL (80-100); MPV 9.9 fL (7.6-11.3); Monocytes % 5.7 % (3.3-12.3); RBC Red Blood Cell Count 3.61 M/uL (3.86-4.86)
[2018-03-12 15:10] LABS: ALT/SGPT 21 U/L (12-78); AST/SGOT 20 U/L (15-37); Albumin 3.9 g/dL (3.4-5.0); Alkaline Phosphatase 183 U/L (45-117); BUN Blood Urea Nitrogen 21 mg/dL (7-18); Bicarbonate 24 mmol/L (21-32); Bilirubin Direct < 0.1 mg/dL (0-0.2); Bilirubin Total 0.4 mg/dL (0.2-1.0); Glucose Level 84 mg/dL (74-106); Lipase 244 U/L (73-393); Potassium 5.3 mmol/L (3.5-5.1); Protein, Total 7.5 g/dL (6.4-8.2); Sodium Level 141 mmol/L (136-145)
[2018-03-12 15:15] LABS: Urine Blood TRACE (NEG); Urine Glucose NEGATIVE (NEG); Urine Protein 2+ (NEG); Urine Specific Gravity 1.015 (1.005-1.030)
[2018-03-12 15:53] LABS: Urine Bacteria >50 /HPF (<20); Urine Culture Reflex Order REFLEXED; Urine RBC <5 /HPF (NONE SEEN)
[2018-03-12] MEDS ORDERED: CIPROFLOXACIN 400mg IV 400 MG/200 ML BAG IV ONE (16:42)
--- NOTE | 2018-03-12 16:58 | RAD REPORT ---
EXAM DESCRIPTION: CT - Abdomen Pelvis Wo Contrast - 03/12/2018 4:26 pm CLINICAL HISTORY: Abdominal pain. ABD PAIN COMPARISON: Stone Protocol dated 11/09/2017Stone Protocol dated 11/09/2017 TECHNIQUE: CT imaging of the abdomen and pelvis was performed without contrast. Solid organ and vasc ular assessment is limited due to lack of IV contrast. All CT scans are performed using dose optimization technique as appropriate and may include automated exposure control or mA/KV adjustment according to patient size. FINDINGS: The lower lung serna are clear. The liver, spleen, pancreas, adrenal glands and kidneys are within normal limits for a limited non-co ntrast examination.IVC filter is noted. No bowel obstruction, free air, free fluid or abscess. The appendix is not identified as a discrete structure, however, no secondary findings of appendicitis are identified. The osseous structures are within normal limits. IMPRESSION: No acute intra-abdominal or pelvic findings. A limited non-contrast examination was performed as detailed.
--- NOTE | 2018-03-12 17:06 | EDPHYS ---
Physician Documentation [facility] Name: Macrina Mason Age: 72 yrs Sex: Female : 1945 Arrival Date: 03/12/2018 Time: 13:14 Bed 20 Private MD: Rafael Clement ED Physician Ta Stevens HPI: 03/12 16:01 This 72 yrs old Female presents to ER via Wheelchair with complaints of abd rn pain. 16:01 The patient presents with abdominal pain in the lower abdomen. Onset: The rn symptoms/episode began/occurred 2 day(s) ago. The symptoms do not radiate. Associated signs and symptoms: Pertinent positives: diarrhea, nausea, Pertinent negatives: anorexia, blood in stools, chest pain, fever, palpitations, shortness of breath, vaginal discharge, vomiting. The symptoms are described as achy. Modifying factors: The symptoms are alleviated by nothing, the symptoms are aggravated by touching the area. Severity of pain: At its worst the pain was moderate in the emergency department the pain has improved. The patient has not experienced similar symptoms in the past. The patient has not recently seen a physician. Historical: - Allergies: 14:06 No Known Allergies; aj1 - Home Meds: 14:06 Symbicort 80-4.5 mcg/actuation inhalation HFAA 2 puffs 2 times per day [Active]; aj1 duloxetine 60 mg oral cpDR 1 cap once daily [Active]; donepezil 10 mg oral tab 1 tab twice a day [Active]; diclofenac sodium 75 mg oral TbEC 1 tab 2 times per day [Active]; divalproex 500 mg oral Tb24 1 tab once daily [Active]; gabapentin 300 mg oral cap 1 cap 3 times per day [Active]; bupropion HCl 300 mg Oral Tb24 1 tab once daily [Active]; Amitiza 24 mcg oral cap 1 cap 2 times per day [Active]; amitriptyline 25 mg Oral tab 1 tab 2 times per day [Active]; PreserVision Lutein 226 mg-200 unit -5 mg-0.8 mg oral cap daily [Active]; lisinopril 2.5 mg Oral tab 1 tab once daily [Active]; memantine 10 mg oral tab 1 tab 2 times per day [Active]; mirtazapine 30 mg Oral tab 1 tab once daily [Active]; carbamazepine 200 mg Oral CM12 1 cap 2 times per day [Active]; atorvastatin 20 mg oral tab 1 tab once daily [Active]; folic acid 800 mcg Oral tab 1 tab once daily [Active]; flaxseed oil oral oral daily [Active]; Centrum Silver oral oral daily [Active]; ipratropium bromide 0.02 % inhalation soln 1.25 mL every 6 hours [Active]; lorazepam 0.5 mg Oral tab 1 tab 3 times per day [Active]; - PMHx: 14:06 allergies; Bipolar disorder; COPD; DVT; Schizophrenia; aj1 - PSHx: 14:06 Knee surgery; aj1 - Immunization history:: Flu vaccine is up to date. - Social history:: Smoking status: Patient/guardian denies using tobacco. - Ebola Screening: : Patient denies travel to an Ebola-affected area in the 21 days before illness onset. - Family history:: not pertinent. - Hospitalizations: : No recent hospitalization is reported. ROS: 16:01 Constitutional: Negative for fever, chills, and weight loss, Eyes: Negative for injury, rn pain, redness, and discharge, Neck: Negative for injury, pain, and swelling, Cardiovascular: Negative for chest pain, palpitations, and edema, Respiratory: Negative for shortness of breath, cough, wheezing, and pleuritic chest pain, Abdomen/GI: + abd pain/nausea/diarrhea MS/Extremity: Negative for injury and deformity, Skin: Negative for injury, rash, and discoloration, Neuro: Negative for headache, weakness, numbness, tingling, and seizure. Exam: 16:03 Constitutional: Overweight female, appears to be in pain Head/Face: Normocephalic, rn atraumatic. Eyes: Pupils equal round and reactive to light, extra-ocular motions intact. Lids and lashes normal. Conjunctiva and sclera are non-icteric and not injected. Cornea within normal limits. Periorbital areas with no swelling, redness, or edema. Cardiovascular: Regular rate and rhythm with a normal S1 and S2. No gallops, murmurs, or rubs. Normal PMI, no JVD. No pulse deficits. Respiratory: Lungs have equal breath sounds bilaterally, clear to auscultation and percussion. No rales, rhonchi or wheezes noted. No increased work of breathing, no retractions or nasal flaring. Abdomen/GI: soft, mild RLQ/LLQ/suprapubic tenderness, no rebound, no masses Back: No spinal tenderness. No costovertebral tenderness. Full range of motion. MS/ Extremity: Pulses equal, no cyanosis. Neurovascular intact. Full, normal range of motion. Equal circumference. Neuro: Awake and alert, GCS 15, oriented to person, place, time, and situation. Cranial nerves II-XII grossly intact. Motor strength 5/5 in all extremities. Sensory grossly intact. Vital Signs: 14:06 BP 171 / 84; Pulse 79; Resp 18; Temp 98.1(O); Pulse Ox 100% on R/A; Weight 145.15 kg aj1 (R); Height 5 ft. 10 in. (177.80 cm) (R); Pain 10/10; 15:08 BP 115 / 78; Pulse 65; Resp 20; Pulse Ox 98% on R/A; em 16:00 BP 158 / 64; Pulse 59; Resp 17; Pulse Ox 96% on R/A; dh3 17:00 BP 156 / 58; Pulse 67; Resp 16; Pulse Ox 99% on R/A; dh3 17:42 BP 163 / 60; Pulse 58; Resp 16; Pulse Ox 99% on R/A; Pain 10/10; em 14:06 Body Mass Index 45.91 (145.15 kg, 177.80 cm) [facility] MDM: 14:14 Patient medically screened. rn 17:02 Differential diagnosis: appendicitis, cholecystitis, Cholelithiasis, diverticulitis, rn gastritis, pancreatitis, Peptic Ulcer Disease, Pyelonephritis, Ureterolithiasis, urinary tract infection. Data reviewed: vital signs, nurses notes, lab test result(s), radiologic studies, CT scan, and as a result, I will discharge patient. Counseling: I had a detailed discussion with the patient and/or guardian regarding: the historical points, exam findings, and any diagnostic results supporting the discharge/admit diagnosis, lab results, radiology results, the need for outpatient follow up, to return to the emergency department if symptoms worsen or persist or if there are any questions or concerns that arise at home. Response to treatment: the patient's symptoms have mildly improved after treatment, and as a result, I will discharge patient. Special discussion: Based on the patient's Hx, exam, and Dx evaluation, there is no indication for emergent surgery or inpatient Tx. It is understood by the patient/guardian that if the Sx's persist or worsen they need to return immediately for re-evaluation. I discussed with the patient/guardian in detail that at this point there is no indication for admission to the hospital. It is understood, however, that if the symptoms persist or worsen the patient needs to return immediately for re-evaluation. 03/12 14:21 Order name: Basic Metabolic Panel; Complete Time: 15:30 rn 03/12 14:21 Order name: CBC with Diff; Complete Time: 15:30 rn 03/12 14:21 Order name: Creatinine for Radiology; Complete Time: 15:30 rn 03/12 14:21 Order name: Hepatic Function; Complete Time: 15:30 rn 03/12 14:21 Order name: Lipase; Complete Time: 15:30 03/12 14:21 Order name: Urine Microscopic Only; Complete Time: 15:54 03/12 15:09 Order name: Urine Dipstick--Ancillary (enter results); Complete Time: 15:30 03/12 15:55 Order name: Urine Culture [facility] 03/12 16:04 Order name: Abdomen ; Complete Time: 17:00 [facility] 03/12 14:21 Order name: IV Saline Lock; Complete Time: 14:35 rn 03/12 14:21 Order name: Labs collected and sent; Complete Time: 14:35 03/12 14:21 Order name: Urine Dipstick-Ancillary (obtain specimen); Complete Time: 15:19 rn Administered Medications: 14:36 Drug: Demerol 25 mg Route: IVP; Site: right antecubital; iw 16:19 Follow up: Response: No adverse reaction; Pain is decreased em 14:47 Drug: NS 0.9% 500 ml Route: IV; Rate: bolus; Site: right antecubital; iw 15:50 Follow up: IV Status: Completed infusion; IV Intake: 500ml em 16:44 Drug: Cipro 400 mg Volume: 200 ml; Route: IVPB; Infused Over: 60 mins; Site: right em antecubital; 18:20 Follow up: Response: No adverse reaction; IV Status: Completed infusion; IV Intake: em 200ml 17:45 Drug: Demerol 25 mg Route: IVP; Site: right antecubital; em 18:33 Follow up: Response: No adverse reaction; Pain is decreased em Disposition: 03/12/18 17:06 Discharged to Home. Impression: Urinary tract infection, site not specified. - Condition is Stable. - Discharge Instructions: Urinary Tract Infection, Adult. - Prescriptions for Cipro 500 mg Oral Tablet - take 1 tablet by ORAL route every 12 hours for 10 days; 20 tablet. Ultram 50 mg Oral Tablet - take 1 tablet by ORAL route every 6 hours As needed; 20 tablet. - Medication Reconciliation Form, Thank You Letter, Antibiotic Education, Prescription Opioid Use form. - Follow up: Private Physician; When: As needed; Reason: Recheck today's complaints, Re-evaluation by your physician. - Problem is new. - Symptoms have improved. Signatures: Dispatcher [employer] EDNusrat Liz RN RN aj1 Kevin Guevara, LIFT MANAGER LIFT MANAGER em Terrie Frye RN [place] iw Ta Stevens MD MD furnace door tender: (The following items were deleted from the chart) 16:03 16:01 Constitutional: Negative for fever, chills, and weight loss, rn rn 16:04 14:22 Abdomen Pelvis W Con+CT.RAD.BRZ ordered. [facility] 18:38 17:06 03/12/2018 17:06 Discharged to Home. Impression: Urinary tract infection, site em not specified. Condition is Stable. Forms are Medication Reconciliation Form, Thank You Letter, Antibiotic Education, Prescription Opioid Use. Follow up: Private Physician; When: As needed; Reason: Recheck today's complaints, Re-evaluation by your physician. Problem is new. Symptoms have improved. rn
--- NOTE | 2018-03-12 17:06 | ER ---
Nurse's Notes [facility] Name: Macrina Mason Age: 72 yrs Sex: Female : 1945 Arrival Date: 03/12/2018 Time: 13:14 Bed 20 Private MD: Rafael Clement Diagnosis: Urinary tract infection, site not specified Presentation: 03/12 13:58 Presenting complaint: Patient states: Right lower abdominal pain since Wednesday, aj1 states the pain wasn't that bad at first but yesterday it started to become severe and radiate to her back. Reports nausea, and diarrhea. Denies vomiting. Denies fever. Transition of care: patient was not received from another setting of care. Onset of symptoms was March 09, 2018. Risk Assessment: Do you want to hurt yourself or someone else? Patient reports no desire to harm self or others. Initial Sepsis Screen: Does the patient meet any 2 criteria? No. Patient's initial sepsis screen is negative. Does the patient have a suspected source of infection? No. Patient's initial sepsis screen is negative. Care prior to arrival: None. 13:58 Method Of Arrival: Wheelchair aj1 13:58 Acuity: [place] 3 aj1 Triage Assessment: 14:06 General: Appears uncomfortable, Behavior is anxious, restless. Pain: Complains of pain aj1 in left lower quadrant Pain radiates to back Pain currently is 10 out of 10 on a pain scale. Neuro: Level of Consciousness is awake, alert, obeys commands. Cardiovascular: Patient's skin is warm and dry. Respiratory: Airway is patent Respiratory effort is even, unlabored, Respiratory pattern is regular, symmetrical. Historical: - Allergies: 14:06 No Known Allergies; aj1 - Home Meds: 14:06 Symbicort 80-4.5 mcg/actuation inhalation HFAA 2 puffs 2 times per day [Active]; aj1 duloxetine 60 mg oral cpDR 1 cap once daily [Active]; donepezil 10 mg oral tab 1 tab twice a day [Active]; diclofenac sodium 75 mg oral TbEC 1 tab 2 times per day [Active]; divalproex 500 mg oral Tb24 1 tab once daily [Active]; gabapentin 300 mg oral cap 1 cap 3 times per day [Active]; bupropion HCl 300 mg Oral Tb24 1 tab once daily [Active]; Amitiza 24 mcg oral cap 1 cap 2 times per day [Active]; amitriptyline 25 mg Oral tab 1 tab 2 times per day [Active]; PreserVision Lutein 226 mg-200 unit -5 mg-0.8 mg oral cap daily [Active]; lisinopril 2.5 mg Oral tab 1 tab once daily [Active]; memantine 10 mg oral tab 1 tab 2 times per day [Active]; mirtazapine 30 mg Oral tab 1 tab once daily [Active]; carbamazepine 200 mg Oral CM12 1 cap 2 times per day [Active]; atorvastatin 20 mg oral tab 1 tab once daily [Active]; folic acid 800 mcg Oral tab 1 tab once daily [Active]; flaxseed oil oral oral daily [Active]; Centrum Silver oral oral daily [Active]; ipratropium bromide 0.02 % inhalation soln 1.25 mL every 6 hours [Active]; lorazepam 0.5 mg Oral tab 1 tab 3 times per day [Active]; - PMHx: 14:06 allergies; Bipolar disorder; COPD; DVT; Schizophrenia; aj1 - PSHx: 14:06 Knee surgery; aj1 - Immunization history:: Flu vaccine is up to date. - Social history:: Smoking status: Patient/guardian denies using tobacco. - Ebola Screening: : Patient denies travel to an Ebola-affected area in the 21 days before illness onset. - Family history:: not pertinent. - Hospitalizations: : No recent hospitalization is reported. Screenin:15 Abuse screen: Denies threats or abuse. Nutritional screening: No deficits noted. em Tuberculosis screening: No symptoms or risk factors identified. Fall Risk None identified. Assessment: 14:30 General: Appears in no apparent distress. uncomfortable, Behavior is cooperative, em anxious. Pain: Complains of pain in back and abdomen and left lower quadrant Pain currently is 10 out of 10 on a pain scale. Neuro: Level of Consciousness is awake, alert, obeys commands, Oriented to person, place, time, situation, Gait is steady, Speech is normal. Cardiovascular: Capillary refill < 3 seconds Patient's skin is warm and dry. Respiratory: Airway is patent Respiratory effort is even, unlabored, Respiratory pattern is regular, symmetrical. GI: Abdomen is obese, Bowel sounds present X 4 quads. Abd is soft X 4 quads Abdomen is tender to palpation in right lower quadrant and left lower quadrant. : Urine is clear. EENT: No signs and/or symptoms were reported regarding the EENT system. Derm: Skin is intact, Skin is pink, warm \T\ dry. Musculoskeletal: Range of motion: limited in left shoulder. 14:49 Reassessment: finished drinking PO contrast, CT notified. em 15:18 Reassessment: Patient appears in no apparent distress at this time. Patient and/or em family updated on plan of care and expected duration. Pain level reassessed. Patient is alert, oriented x 3, equal unlabored respirations, skin warm/dry/pink. 16:20 Reassessment: Patient appears in no apparent distress at this time. Patient and/or em family updated on plan of care and expected duration. Pain level reassessed. Patient is alert, oriented x 3, equal unlabored respirations, skin warm/dry/pink. pt wheeled to CT via stretcher Patient states feeling better. 17:17 Reassessment: Patient appears in no apparent distress at this time. Patient and/or em family updated on plan of care and expected duration. Pain level reassessed. Patient is alert, oriented x 3, equal unlabored respirations, skin warm/dry/pink. pt up for discharge, pending completion of IV antibiotics. 17:25 Reassessment: Patient appears in no apparent distress at this time. pt request pain em medication. 18:15 Reassessment: Patient appears in no apparent distress at this time. Patient and/or em family updated on plan of care and expected duration. Pain level reassessed. Patient is alert, oriented x 3, equal unlabored respirations, skin warm/dry/pink. waiting for ride. Vital Signs: 14:06 BP 171 / 84; Pulse 79; Resp 18; Temp 98.1(O); Pulse Ox 100% on R/A; Weight 145.15 kg aj1 (R); Height 5 ft. 10 in. (177.80 cm) (R); Pain 10/10; 15:08 BP 115 / 78; Pulse 65; Resp 20; Pulse Ox 98% on R/A; em 16:00 BP 158 / 64; Pulse 59; Resp 17; Pulse Ox 96% on R/A; dh3 17:00 BP 156 / 58; Pulse 67; Resp 16; Pulse Ox 99% on R/A; dh3 17:42 BP 163 / 60; Pulse 58; Resp 16; Pulse Ox 99% on R/A; Pain 10/10; em 14:06 Body Mass Index 45.91 (145.15 kg, 177.80 cm) aj1 ED Course: 13:14 Patient arrived in ED. sb2 13:15 Rafael Clement MD is Private Physician. sb2 14:00 Triage completed. aj1 14:06 Arm band placed on Patient placed in an exam room. aj1 14:11 Kevin Guevara LVN is Primary Nurse. em 14:14 Ta Stevens MD is Attending Physician. rn 14:30 Patient has correct armband on for positive identification. Bed in low position. Call em light in reach. Adult w/ patient. 14:35 Initial lab(s) drawn, by me, sent to lab. Inserted saline lock: 20 gauge in right dh3 antecubital area, using aseptic technique. Blood collected. 15:06 Urine collected: clean catch specimen, cloudy. iw 16:25 CT completed. Patient moved to CT via stretcher. Patient moved back from CT. cw1 16:27 Abdomen In Process Unspecified. EDMS 18:11 No provider procedures requiring assistance completed. IV discontinued, intact, em bleeding controlled, No redness/swelling at site. Pressure dressing applied. Administered Medications: 14:36 Drug: Demerol 25 mg Route: IVP; Site: right antecubital; iw 16:19 Follow up: Response: No adverse reaction; Pain is decreased em 14:47 Drug: NS 0.9% 500 ml Route: IV; Rate: bolus; Site: right antecubital; iw 15:50 Follow up: IV Status: Completed infusion; IV Intake: 500ml em 16:44 Drug: Cipro 400 mg Volume: 200 ml; Route: IVPB; Infused Over: 60 mins; Site: right em antecubital; 18:20 Follow up: Response: No adverse reaction; IV Status: Completed infusion; IV Intake: em 200ml 17:45 Drug: Demerol 25 mg Route: IVP; Site: right antecubital; em 18:33 Follow up: Response: No adverse reaction; Pain is decreased em Intake: 15:50 IV: 500ml; Total: 500ml. em 18:20 IV: 200ml; Total: 700ml. em Outcome: 17:06 Discharge ordered by . rn 18:32 Discharged to home via wheelchair. em 18:32 Condition: good 18:32 Discharge instructions given to patient, Instructed on discharge instructions, follow up and referral plans. medication usage, Demonstrated understanding of instructions, follow-up care, medications, Prescriptions given X 2. 18:38 Patient left the ED. em Addendum: 03/15/2018 19:18 Addendum: Culture Results: Positive urine culture. Bacteria is resistant to, has i w intermediate sensitivity, or is not tested against prescribed antibiotics. Report given to RTANA for further evaluation and then to mall plant caretaker for follow up with patient. Phone call Attempt #1 pt states she is still having lower abd pain, and hasn't been taking her abx because she has been vomiting, called in Macrobid 100 mg PO BID X 7 days, qty 14, no refills and Levaquin 250 mg PO daily X 10 days, qty 10, no refills, called in to [facility] pharmacy, faxed culture report to Dr. Clement's office. Signatures: Dispatcher [employer] Nusrat Cruz, RN RN aj1 Kevin Guevara, CERTIFIED GREEN BUILDING ENGINEER CERTIFIED GREEN BUILDING ENGINEER Terrie Huang, Ta Santizo RN, MD MD rn Woodley, Crystal cw1 Irlanda Castano 3 Essie Rock2
[2018-03-12 18:45] VITALS: TEMP 98.1
[2018-03-12 18:49] VITALS: O2SAT 99
[2018-03-12 18:50] VITALS: BP 163/60
== END 2018-03-12 18:38 | disposition home or self-care (01) ==
LOC: ER 13:13
DX: N39.0 Urinary tract infection, site not specified (principal); F31.9 Bipolar disorder, unspecified; J44.9 Chronic obstructive pulmonary disease, unspecified; Z86.718 Personal history of other venous thrombosis and embolism; F20.9 Schizophrenia, unspecified
CPT/HCPCS: 36415; 74176; 80048; 80076; 83690; 85025; 87077 ×2; 87086; 87088; 87186 ×2; 96361; 96365; 96366; 96375; 99284; J0744; J2175 ×2; 81003; 81015

== ENCOUNTER 2018-09-30 20:19 | Emergency (ER) | payer OTHER, BC ==
[2018-09-30] MEDS ORDERED: FENTANYL CITR 100 MCG/2 ML ONE (20:48)
[2018-09-30] MEDS ORDERED: ONDANSETRON 4 MG/2 ML VIAL ONE (20:48)
[2018-09-30 20:51] LABS: Absolute Lymphocytes (CBC) 1.8 K/uL (0.7-4.9); Absolute Monocytes 0.5 K/uL (0.1-1.3); Absolute Neutrophil 3.7 K/uL (1.8-8.0); Basophils % 0.5 % (0-1.3); Eosinophils % 6.6 % (0-4.4); Hematocrit 29.8 % (36.0-45.0); Lymphocytes % 27.5 % (15.3-44.8); Monocytes % 7.9 % (3.3-12.3); RBC Red Blood Cell Count 3.18 M/uL (3.86-4.86)
--- NOTE | 2018-09-30 21:37 | RAD REPORT ---
EXAM DESCRIPTION: RAD - Femur Right - 09/30/2018 9:21 pm CLINICAL HISTORY: Fall, femur pain COMPARISON: None. FINDINGS: No fracture, dislocation or periosteal reaction noted. No acute or suspicious bony finding . Right knee prosthesis in place. No radiographic evidence for loosening. No measurable joint effusio n. No air or foreign body in the soft tissues. IMPRESSION: Negative right femur examination for fracture or acute finding.
--- NOTE | 2018-09-30 21:37 | RAD REPORT ---
EXAM DESCRIPTION: RAD - Shoulder Left 2 View - 09/30/2018 9:21 pm CLINICAL HISTORY: Fall, shoulder pain COMPARISON: November 2017 left shoulder, chest film March 2018 TECHNIQUE: Internal and external rotation views of the left shoulder were obtained. FINDINGS: No dislocation of the humeral head. Acute fracture of the proximal humerus is not confirme d. There is remodeling and angulation deformity related to a remote fracture. Minimal AC joint degene rative change present. IMPRESSION: Negative two-view left shoulder examination for acute finding. Remodeling and angulation deformity is seen secondary to prior fracture.
[2018-09-30] MEDS ORDERED: DIAZEPAM 10 MG/2 ML INJ SYRINGE ONE (22:46)
--- NOTE | 2018-10-01 01:16 | ER ---
Nurse's Notes [facility] Name: Macrina Mason Age: 72 yrs Sex: Female : 1945 Arrival Date: 09/30/2018 Time: 20:26 Bed 27 Private MD: Diagnosis: Fracture of thoracic vertebra-Unstable Presentation: 09/30 20:28 Presenting complaint: EMS states: patient was getting out of her car and she started mg2 feeling weakness on her knees. she fell on the gravel/ground and hit her head, back and bottom. she sustained pain on the mentioned areas and in route here she started complaining of rib pain. denies LOC. Care prior to arrival: Medication(s) given: Normal saline infusion, 500 mL, zofran 4 mg, fentanyl 100 mcg IV. Mechanism of Injury: Fall from standing position. Trauma event details: Injury occurred:. 20:28 Acuity: [place] 2 mg2 20:28 Method Of Arrival: [facility] mg2 20:49 Transition of care: patient was not received from another setting of care. Onset of mg2 symptoms was September 30, 2018. Risk Assessment: Do you want to hurt yourself or someone else? Patient reports no desire to harm self or others. Initial Sepsis Screen: Does the patient meet any 2 criteria? No. Patient's initial sepsis screen is negative. Does the patient have a suspected source of infection? No. Patient's initial sepsis screen is negative. Trauma Activation: Not Applicable Physician: ED Physician; Name: ; Notified At: ; Arrived At: Physician: General Surgeon; Name: ; Notified At: ; Arrived At: Physician: Radiology; Name: ; Notified At: ; Arrived At: Physician: Respiratory; Name: ; Notified At: ; Arrived At: Physician: Lab; Name: ; Notified At: ; Arrived At: Historical: - Allergies: 20:53 No Known Allergies; mg2 - Home Meds: 20:53 Amitiza 24 mcg Oral cap 1 cap 2 times per day [Active]; amitriptyline 25 mg Oral tab 1 mg2 tab 2 times per day [Active]; atorvastatin 20 mg Oral tab 1 tab once daily [Active]; bupropion HCl 300 mg Oral Tb24 1 tab once daily [Active]; carbamazepine 200 mg Oral CM12 1 cap 2 times per day [Active]; Centrum Silver Oral daily [Active]; diclofenac sodium 75 mg Oral TbEC 1 tab 2 times per day [Active]; divalproex 500 mg Oral Tb24 1 tab once daily [Active]; donepezil 10 mg Oral tab 1 tab twice a day [Active]; duloxetine 60 mg Oral cpDR 1 cap once daily [Active]; flaxseed oil Oral daily [Active]; folic acid 800 mcg Oral tab 1 tab once daily [Active]; gabapentin 300 mg Oral cap 1 cap 3 times per day [Active]; ipratropium bromide 0.02 % inhalation soln 1.25 mL every 6 hours [Active]; lisinopril 2.5 mg Oral tab 1 tab once daily [Active]; lorazepam 0.5 mg Oral tab 1 tab 3 times per day [Active]; memantine 10 mg Oral tab 1 tab 2 times per day [Active]; mirtazapine 30 mg Oral tab 1 tab once daily [Active]; PreserVision Lutein 226 mg-200 unit -5 mg-0.8 mg Oral cap daily [Active]; Symbicort 80-4.5 mcg/actuation inhalation HFAA 2 puffs 2 times per day [Active]; - PMHx: 20:53 allergies; Bipolar disorder; COPD; DVT; Schizophrenia; mg2 - PSHx: 20:53 eye surgery; both knee replacement; mg2 - Immunization history:: Flu vaccine is up to date. - Immunization history: Last tetanus immunization: unknown. - Social history:: Smoking status: Patient/guardian denies using tobacco, Patient/guardian denies using alcohol, street drugs, IV drugs. - Ebola Screening: : No symptoms or risks identified at this time. Screenin:42 Abuse screen: Denies threats or abuse. Denies injuries from another. Nutritional mg2 screening: No deficits noted. Tuberculosis screening: No symptoms or risk factors identified. Fall risk At risk due to prior history of falls. 20:55 Fall Risk Fall in past 12 months (25 points). IV access (20 points). mg2 Primary Survey: 20:47 NO uncontrolled hemorrhage observed. Breathing/Chest: Respiratory pattern: regular, mg2 Respiratory effort: spontaneous, unlabored, Breath sounds: clear. Circulation: Skin color: pink. Disability Alert. Exposure/Environment: All clothing and personal items were removed. Forensic evidence collection is not deemed to be indicated at this time. Items placed in patient belonging bag. There is no evidence of uncontrolled external bleeding. No obvious injuries are noted at this time. 23:23 Reassessment Airway Airway Patent Oxygen Nasal cannula Breathing/Chest Respiratory mg2 pattern Regular Respiratory effort Spontaneous Unlabored Breath sounds Clear Chest inspection Symmetrical Circulation Color [place] Disability Alert. Secondary Survey: 20:48 HEENT: No deficits noted. Gastrointestinal: No deficits noted. : No deficits noted. mg2 Musculoskeletal: Circulation, motion, and sensation intact. Capillary refill < 3 seconds, Reports pain in back of left arm, posterior chest, buttocks, back of right leg and back. Assessment: 20:42 General: Appears uncomfortable, Behavior is anxious. Pain: Complains of pain in back of mg2 head, back of left arm, posterior chest, buttocks, back of right leg and back Pain does not radiate. Pain at worst was 10 out of 10 on a pain scale. Quality of pain is described as aching, Pain began suddenly, 30 min ago. Is intermittent, Alleviated by medications. Neuro: Level of Consciousness is awake, alert, obeys commands, Oriented to person, place, time, situation. EENT: No signs and/or symptoms were reported regarding the EENT system. Cardiovascular: Capillary refill < 3 seconds Patient's skin is warm and dry. Respiratory: Airway is patent Respiratory effort is even, unlabored, Respiratory pattern is regular, symmetrical. GI: No signs and/or symptoms were reported involving the gastrointestinal system. : No signs and/or symptoms were reported regarding the genitourinary system. Derm: Skin is intact, is healthy with good turgor, Skin is pink, warm \T\ dry. normal, abrasion in the left mid back. Musculoskeletal: Circulation, motion, and sensation intact. Capillary refill < 3 seconds, Reports pain in back of left arm, posterior chest, buttocks, back of right leg and back Pain is 10 out of 10 on a pain scale. 20:57 Reassessment: patient sent to [facility] via stretcher. logrolling done. c-collar in situ. mg2 21:06 Reassessment: patient sent back from xray. mg2 23:22 Reassessment: patient is asleep. mg2 10/01 01:08 Reassessment: report called to BENTON Romero of [facility]. mg2 01:17 Reassessment: patient informed about the need for transfer. she agreed. mg2 02:06 Reassessment: patient taken by [facility] to be transferred to [facility]. mg2 Vital Signs: 09/30 20:34 BP 156 / 72; Pulse 58; Resp 18; Temp 98.6; Pulse Ox 100% on R/A; Weight 122.47 kg; mg2 Height 5 ft. 10 in. (177.80 cm); Pain 10/10; 22:17 BP 146 / 42; Pulse 70; Resp 18; Pulse Ox 98% on 1 lpm NC; Pain 8/10; mg2 23:20 Pulse 62; Resp 18; Pulse Ox 100% on R/A; Pain 0/10; mg2 10/01 00:36 BP 162 / 62; Pulse 59; Resp 18; Pulse Ox 100% on 1 lpm NC; mg2 01:14 BP 155 / 52; Pulse 60; Resp 18; Pulse Ox 100% on 1 lpm NC; mg2 09/30 20:34 Body Mass Index 38.74 (122.47 kg, 177.80 cm) mg2 [place] Coma Score: 09/30 20:34 Eye Response: spontaneous(4). Verbal Response: oriented(5). Motor Response: obeys mg2 commands(6). Total: 15. 10/01 00:36 Eye Response: spontaneous(4). Verbal Response: oriented(5). Motor Response: obeys mg2 commands(6). Total: 15. Trauma Score (Adult): 09/30 20:34 Eye Response: spontaneous(1); Verbal Response: oriented(1); Motor Response: obeys mg2 commands(2); Systolic BP: > 89 mm Hg(4); Respiratory Rate: 10 to 29 per min(4); [place] Score: 15; Trauma Score: 12 10/01 00:36 Eye Response: spontaneous(1); Verbal Response: oriented(1); Motor Response: obeys mg2 commands(2); Systolic BP: > 89 mm Hg(4); Respiratory Rate: 10 to 29 per min(4); [place] Score: 15; Trauma Score: 12 ED Course: 09/30 18:20 Patient has correct armband on for positive identification. Placed in gown. Bed in low jp3 position. Call light in reach. Side rails up X 1. Side rails up X2. 20:26 Patient arrived in ED. aa1 20:27 Jesús Crabtree PA is PHCP. jr8 20:27 Kameron Phipps MD is Attending Physician. jr8 20:28 Danny Crawford, [place] is Primary Nurse. mg2 20:30 Initial lab(s) drawn, by me, sent to lab. Maintain EMS IV. Dressing intact. Good blood jp3 return noted. Site clean \T\ dry. Gauge \T\ site: 18-gauge in RAC. 20:31 Radiology exam delayed due to lab results not completed at this time. (BUN/Creatinine). vr 20:34 Triage completed. mg2 20:40 Pulse ox on. NIBP on. jp3 20:41 CBC with Diff Sent. jp3 20:42 Basic Metabolic Panel Sent. jp3 20:54 Patient maintains SpO2 saturation greater than 95% on room air. Thermoregulation: warm mg2 blanket given to patient. 20:54 Arm band placed on. mg2 20:55 No provider procedures requiring assistance completed. mg2 21:[address] via stretcher. vr 21:20 XRAY Shoulder LEFT 2 view In Process Unspecified. EDMS 21:20 XRAY Femur RIGHT In Process Unspecified. EDMS 21:34 CT completed. Patient tolerated procedure well. Patient moved back from CT. nj 22:06 Head C Spine Cap Wo Con In Process Unspecified. EDMS 10/01 00:50 Steele cath inserted, using sterile technique, 16 Fr., by me, balloon inflated, returned mg2 1 liter of urine. Patient tolerated well. 02:07 Patient transferred, IV remains in place. mg2 Administered Medications: 09/30 20:45 Drug: fentaNYL (PF) 50 mcg Route: IVP; Site: right antecubital; mg2 21:57 Follow up: Response: No adverse reaction; Marked relief of symptoms mg2 20:45 Drug: Zofran 4 mg Route: IVP; Site: right antecubital; mg2 21:57 Follow up: Response: No adverse reaction; Marked relief of symptoms mg2 21:57 Drug: fentaNYL (PF) 50 mcg Route: IVP; Site: right antecubital; mg2 22:38 Follow up: Response: No adverse reaction; Marked relief of symptoms mg2 22:38 Drug: Valium 5 mg Route: IVP; Site: right antecubital; mg2 10/01 00:49 Follow up: Response: No adverse reaction; Marked relief of symptoms mg2 01:28 Drug: Valium 2 mg Route: IVP; Site: right antecubital; mg2 02:00 Follow up: Response: No adverse reaction; Marked relief of symptoms mg2 : Drug: fentaNYL (PF) 50 mcg Route: IVP; Site: right antecubital; mg2 02:00 Follow up: Response: No adverse reaction; Marked relief of symptoms mg2 Intake: 09/30 23:20 PO: 0ml; Total: 0ml. mg2 Outcome: 10/01 01:16 ER care complete, transfer ordered by MD. ortega 02:07 Transferred by ground EMS to [facility], Transfer form completed. mg2 02:07 Condition: stable 02:07 Instructed on the need for admit, Demonstrated understanding of instructions. 02:08 Patient's length of stay in the Emergency Department was greater than 2 hours. awaiting mg2 for transfer to other facility. Patient's length of stay extended due to 02:09 Patient left the ED. mg2 Signatures: Dispatcher [employer] EDMS Anisha Lafleur RN RN aa1 Dona Colon Josh, PA PA jr8 Rakesh Haley Michele, RN RN mg2 Kobe Lafleur jp3 Corrections: (The following items were deleted from the chart) 09/30 23:24 21:07 Reassessment Breathing/Chest mg2 mg2 10/01 00:52 09/30 20:34 BP 156 / 72; Pulse 58bpm; Resp 18bpm; Pulse Ox 100% RA; 122.47 kg; Height 5 mg2 ft. 10 in.; BMI: 38.7; Pain 10/10; mg2
--- NOTE | 2018-10-01 01:17 | EDPHYS ---
Physician Documentation [facility] Name: Macrina Mason Age: 72 yrs Sex: Female : 1945 Arrival Date: 09/30/2018 Time: 20:26 Bed 27 Private MD: ED Physician Kameron Phipps HPI: 09/30 20:44 This 72 yrs old Female presents to ER via EMS with complaints of Fall Injury, jr8 Shoulder Injury. 20:44 Details of fall: The patient fell from an upright position, while standing. Onset: The jr8 symptoms/episode began/occurred acutely, today. Associated injuries: The patient sustained injury to the head, neck injury, upper back injury, injury to the low back, right leg, left arm. Severity of symptoms: At their worst the symptoms were moderate, in the emergency department the symptoms are unchanged. The patient has not experienced similar symptoms in the past. The patient has not recently seen a physician. Patient stated that she had a long car drive today. While getting out of the car legs buckled causing her to fall on back and head. Denies LOC. EMS was called out to seen. Patient in spinal motion restriction upon arrival in moderate pain. No obvious deformity noted . Historical: - Allergies: 20:53 No Known Allergies; mg2 - Home Meds: 20:53 Amitiza 24 mcg Oral cap 1 cap 2 times per day [Active]; amitriptyline 25 mg Oral tab 1 mg2 tab 2 times per day [Active]; atorvastatin 20 mg Oral tab 1 tab once daily [Active]; bupropion HCl 300 mg Oral Tb24 1 tab once daily [Active]; carbamazepine 200 mg Oral CM12 1 cap 2 times per day [Active]; Centrum Silver Oral daily [Active]; diclofenac sodium 75 mg Oral TbEC 1 tab 2 times per day [Active]; divalproex 500 mg Oral Tb24 1 tab once daily [Active]; donepezil 10 mg Oral tab 1 tab twice a day [Active]; duloxetine 60 mg Oral cpDR 1 cap once daily [Active]; flaxseed oil Oral daily [Active]; folic acid 800 mcg Oral tab 1 tab once daily [Active]; gabapentin 300 mg Oral cap 1 cap 3 times per day [Active]; ipratropium bromide 0.02 % inhalation soln 1.25 mL every 6 hours [Active]; lisinopril 2.5 mg Oral tab 1 tab once daily [Active]; lorazepam 0.5 mg Oral tab 1 tab 3 times per day [Active]; memantine 10 mg Oral tab 1 tab 2 times per day [Active]; mirtazapine 30 mg Oral tab 1 tab once daily [Active]; PreserVision Lutein 226 mg-200 unit -5 mg-0.8 mg Oral cap daily [Active]; Symbicort 80-4.5 mcg/actuation inhalation HFAA 2 puffs 2 times per day [Active]; - PMHx: 20:53 allergies; Bipolar disorder; COPD; DVT; Schizophrenia; mg2 - PSHx: 20:53 eye surgery; both knee replacement; mg2 - Immunization history:: Flu vaccine is up to date. - Immunization history: Last tetanus immunization: unknown. - Social history:: Smoking status: Patient/guardian denies using tobacco, Patient/guardian denies using alcohol, street drugs, IV drugs. - Ebola Screening: : No symptoms or risks identified at this time. ROS: 20:44 Constitutional: Negative for fever, chills, and weight loss. jr8 20:44 Neck: Positive for pain with movement, pain at rest, tenderness, bony tenderness. 20:44 Back: Positive for pain at rest, pain with movement. 20:44 MS/extremity: Positive for pain, tenderness, of the left arm and right leg. 20:44 Neuro: Positive for headache, Negative for altered mental status, dizziness, loss of consciousness. 20:44 All other systems are negative. Exam: 20:44 Head/Face: Normocephalic, atraumatic. Eyes: Pupils equal round and reactive to light, jr8 extra-ocular motions intact. Lids and lashes normal. Conjunctiva and sclera are non-icteric and not injected. Cornea within normal limits. Periorbital areas with no swelling, redness, or edema. ENT: Nares patent. No nasal discharge, no septal abnormalities noted. Tympanic membranes are normal and external auditory canals are clear. Oropharynx with no redness, swelling, or masses, exudates, or evidence of obstruction, uvula midline. Mucous membranes moist. Chest/axilla: Normal chest wall appearance and motion. Nontender with no deformity. No lesions are appreciated. Cardiovascular: Regular rate and rhythm with a normal S1 and S2. No gallops, murmurs, or rubs. Normal PMI, no JVD. No pulse deficits. Respiratory: Lungs have equal breath sounds bilaterally, clear to auscultation and percussion. No rales, rhonchi or wheezes noted. No increased work of breathing, no retractions or nasal flaring. Abdomen/GI: Soft, non-tender, with normal bowel sounds. No distension or tympany. No guarding or rebound. No evidence of tenderness throughout. Skin: Warm, dry with normal turgor. Normal color with no rashes, no lesions, and no evidence of cellulitis. Neuro: Awake and alert, GCS 15, oriented to person, place, time, and situation. Cranial nerves II-XII grossly intact. Motor strength 5/5 in all extremities. Sensory grossly intact. Cerebellar exam normal. Normal gait. 20:44 Neck: External neck: is normal, C-spine: C-collar placed CORPORATE PILOT, Back board CORPORATE PILOT vertebral tenderness, that is moderate, appreciated at C3, C4, C5 and C6, Thyroid: appears normal, Trachea: is midline with no obvious abnormalities, ROM/movement: pain, that is moderate, with any movement, Lymph nodes: no appreciated lymphadenopathy. 20:44 Back: pain, that is moderate, of the thoracic area and lumbar area, ROM is painful, normal spinal alignment noted, vertebral tenderness, is appreciated at T4, T5, T6, T7, T12, L1 and L2, small abrasion noted to right lateral back. 20:44 Musculoskeletal/extremity: Extremities: grossly normal except: noted in the left shoulder: pain, tenderness, noted in the right hip: pain, tenderness, ROM: limited active range of motion, in the left arm and right leg, limited active range of motion due to pain, limited passive range of motion due to pain, Circulation is intact in all extremities. Pulses: noted to be 2+ in the right radial artery, right posterior tibial artery, right dorsalis pedis artery, left radial artery, left posterior tibial artery and left dorsalis pedis artery, Sensation intact. Vital Signs: 20:34 BP 156 / 72; Pulse 58; Resp 18; Temp 98.6; Pulse Ox 100% on R/A; Weight 122.47 kg; mg2 Height 5 ft. 10 in. (177.80 cm); Pain 10/10; 22:17 BP 146 / 42; Pulse 70; Resp 18; Pulse Ox 98% on 1 lpm NC; Pain 8/10; mg2 23:20 Pulse 62; Resp 18; Pulse Ox 100% on R/A; Pain 0/10; mg2 10/01 00:36 BP 162 / 62; Pulse 59; Resp 18; Pulse Ox 100% on 1 lpm NC; mg2 01:14 BP 155 / 52; Pulse 60; Resp 18; Pulse Ox 100% on 1 lpm NC; mg2 09/30 20:34 Body Mass Index 38.74 (122.47 kg, 177.80 cm) mg2 [place] Coma Score: 09/30 20:34 Eye Response: spontaneous(4). Verbal Response: oriented(5). Motor Response: obeys mg2 commands(6). Total: 15. 10/01 00:36 Eye Response: spontaneous(4). Verbal Response: oriented(5). Motor Response: obeys mg2 commands(6). Total: 15. Trauma Score (Adult): 09/30 20:34 Eye Response: spontaneous(1); Verbal Response: oriented(1); Motor Response: obeys mg2 commands(2); Systolic BP: > 89 mm Hg(4); Respiratory Rate: 10 to 29 per min(4); [place] Score: 15; Trauma Score: 12 10/01 00:36 Eye Response: spontaneous(1); Verbal Response: oriented(1); Motor Response: obeys mg2 commands(2); Systolic BP: > 89 mm Hg(4); Respiratory Rate: 10 to 29 per min(4); [place] Score: 15; Trauma Score: 12 MDM: 09/30 20:29 Patient medically screened. jr8 10/01 00:37 Data reviewed: vital signs, nurses notes, lab test result(s), radiologic studies, CT jr8 scan, plain films. Data interpreted: cardiac monitor: rate is 60 beats/min, rhythm is normal sinus rhythm, with no ectopy, Interpretation: normal rate, normal rhythm, Pulse oximetry: on room air is 100 %. Interpretation: normal. Counseling: I had a detailed discussion with the patient and/or guardian regarding: the historical points, exam findings, and any diagnostic results supporting the discharge/admit diagnosis, lab results, radiology results, the need to transfer to another facility, [facility] does not immediately have the required specialist. 01:13 ED course: [facility] Contacted and accepted patient for spinal fracture . 09/30 20:29 Order name: CBC with Diff; Complete Time: 21:10 09/30 20:29 Order name: Basic Metabolic Panel; Complete Time: 21:10 09/30 20:29 Order name: XRAY Shoulder LEFT 2 view; Complete Time: 21:43 8 09/30 20:29 Order name: XRAY Femur RIGHT; Complete Time: 21:43 09/30 21:17 Order name: Head C Spine Cap Wo Con EDMS 09/30 20:29 Order name: IV; Complete Time: 20:41 10/01 00:51 Order name: Steele; Complete Time: 00:51 mg2 Administered Medications: 09/30 20:45 Drug: fentaNYL (PF) 50 mcg Route: IVP; Site: right antecubital; mg2 21:57 Follow up: Response: No adverse reaction; Marked relief of symptoms mg2 20:45 Drug: Zofran 4 mg Route: IVP; Site: right antecubital; mg2 21:57 Follow up: Response: No adverse reaction; Marked relief of symptoms mg2 21:57 Drug: fentaNYL (PF) 50 mcg Route: IVP; Site: right antecubital; mg2 22:38 Follow up: Response: No adverse reaction; Marked relief of symptoms mg2 22:38 Drug: Valium 5 mg Route: IVP; Site: right antecubital; mg2 10/01 00:49 Follow up: Response: No adverse reaction; Marked relief of symptoms mg2 01:28 Drug: Valium 2 mg Route: IVP; Site: right antecubital; mg2 02:00 Follow up: Response: No adverse reaction; Marked relief of symptoms mg2 01:29 Drug: fentaNYL (PF) 50 mcg Route: IVP; Site: right antecubital; mg2 02:00 Follow up: Response: No adverse reaction; Marked relief of symptoms mg2 Disposition: 10/01/18 01:16 Transfer ordered to [facility]. Diagnosis is Fracture of thoracic vertebra - Unstable . - Reason for transfer: Higher level of care. - Accepting physician is Dr. Palacios . - Condition is Stable. - Problem is new. - Symptoms have improved. Addendum: 10/03/2018 11:12 Co-signature as Attending Physician, Kameron Phipps MD I agree with the assessment and c decker plan of care. Signatures: Dispatcher [employer] [facility] Kameron Phipps MD MD cha Roszak, Josh, PA PA jr8 Danny Crawford RN RN mg2 Corrections: (The following items were deleted from the chart) 09/30 21:18 20:30 Head C Spine CAP W [id number] ordered. [facility] 10/01 02:09 01:16 10/01/2018 01:16 Transfer ordered to [facility]. mg2 Diagnosis is Fracture of thoracic vertebra - Unstable . Reason for transfer: Higher level of care. Accepting physician is Dr. Palacios . Condition is Stable. Problem is new. Symptoms have improved. jr8
[2018-10-01] MEDS ORDERED: FENTANYL CITR 100 MCG/2 ML ONE (01:31)
[2018-10-01] MEDS ORDERED: DIAZEPAM 10 MG/2 ML INJ SYRINGE ONE (01:31)
[2018-10-01 02:28] VITALS: TEMP 98.6
[2018-10-01 02:37] VITALS: O2SAT 100
[2018-10-01 02:40] VITALS: BP 155/52
--- NOTE | 2018-10-03 12:00 | RAD REPORT ---
EXAM DESCRIPTION: Head C Spine Cap Wo Con CLINICAL HISTORY: Fall injury;Pain COMPARISON: None Available. TECHNIQUE: Multiple helical axial tomographic images were obtained of the head, cervical spine, ches t, abdomen, and pelvis without intravenous contrast. Coronal and sagittal reformatted images were obt ained. This exam was performed according to our departmental dose-optimization program, which include s automated exposure control, adjustment of the mA and/or kV according to patient size and/or use of iterative reconstruction technique. FINDINGS: CT head: Exam mildly limited given that a portion of the frontal calvarium is not imaged. Mild generalized brain volume loss is present. There is mild hypoattenuation in the periventricular w luis matter suggestive of chronic microvascular ischemic changes. There is no acute intracranial hemo rrhage. No mass. No midline shift. No ventriculomegaly. Bhagat-white matter differentiation is maintain ed. Right maxillary sinus mucosal thickening is present with hypertrophy of the right maxillary sinus wal l suggestive of chronic sinusitis. Mastoid air cells and middle ear spaces are clear. Changes of lens replacement noted. Osseous structures are unremarkable. Surrounding soft tissues are unremarkable. CT cervical spine: No evidence for an acute fracture of the cervical spine. Multilevel facet joint degenerative changes demonstrated. Neuroforaminal narrowing at C3-C4 and C4-C5 is present. Central canal appears grossly p atent. No subluxation. Surrounding soft tissues are unremarkable. CT chest: Thyroid gland: A few hypodense structures in the left thyroid lobe are present measuring up to 2.2 cm ; a few rounded structures demonstrate peripheral calcification. Axilla: unremarkable. Aorta: No evidence of aortic aneurysm. Mediastinum: Unremarkable. No adenopathy. Heart: Heart is normal in size. Lungs/airways: No consolidation. Airways are patent. Pleural spaces: No significant pleural effusion. No pneumothorax. Osseous: There is an acute fracture extending through the disc space at T9-T10 involving the inferior endplate of T9 and superior endplate of T10 with mild widening of the disc space. No evidence of ret ropulsion. Fracture through an anterior T9-T10 osteophyte is present. There are multilevel anterior o steophytes of the thoracic spine suggestive of DISH. Chronic appearing fracture deformity of the left humeral head/neck noted. Soft tissues: Unremarkable. CT abdomen pelvis: Liver: Homogenous attenuation is demonstrated. Gallbladder/biliary: Gallbladder appears unremarkable. No calcified gallstones. No evidence of biliar y ductal dilatation. Pancreas: Unremarkable. Spleen: Unremarkable. Adrenals: Unremarkable. Kidneys and ureters: No evidence of renal or ureteral stones. No hydronephrosis. There is a 2.[address] in the upper pole of the left kidney. Bladder: Trace amount of air in the bladder is present. Pelvic organs: Post hysterectomy changes are present. Bowel: No evidence of bowel obstruction. No bowel wall thickening. Appendix appears unremarkable. Non specific haziness of the small bowel mesentery noted. Peritoneum: No free air. No significant free fluid. Lymph nodes: Unremarkable. Vasculature: IVC filter is present. Mild aortoiliac atherosclerosis present. Soft tissues: Unremarkable. Bones: Degenerative changes of the lumbar spine noted. IMPRESSION: 1. Acute fracture extending through the disc space at T9-T10 with associated fractures o f the inferior endplate of T9 and superior endplate of T10 and mild disc space widening. Findings sug gestive of DISH. 2. No acute intracranial process. 3. No evidence for an acute fracture of the cervical spine. 4. No acute cardiopulmonary process. 5. Trace amount of air in the bladder which may be related to recent catheterization or cystitis. 6. Changes of chronic right maxillary sinusitis. 7. Few rounded structures in the thyroid gland may represent cysts or nodules and can be followed up with ultrasound nonemergently. 8. Chronic appearing fracture of the left humeral head/neck. THIS REPORT CONTAINS FINDINGS THAT MAY BE CRITICAL TO PATIENT CARE: The findings were verbally discu ssed via telephone conference with Dr. Crabtree at 22:46 hrs central time on 09/30/2018. The results w ere acknowledged and understood. Electronically signed by: Jordan Jerez MD 09/30/2018 11:03 PM CDT Due to temporary technical issues with the PACS/Fluency reporting system, reports are being signed by the in house radiologist as a courtesy to ensure prompt reporting. The interpreting radiologist is [employer] responsible for the content of the report.
== END 2018-10-01 02:09 | disposition short-term general hospital (02) ==
LOC: ER 20:19
DX: S22.008A Other fracture of unspecified thoracic vertebra, initial encounter for closed fracture (principal); W19.XXXA Unspecified fall, initial encounter; Y93.89 Activity, other specified; Y92.89 Other specified places as the place of occurrence of the external cause; Z86.718 Personal history of other venous thrombosis and embolism; F20.9 Schizophrenia, unspecified; F31.9 Bipolar disorder, unspecified; J44.9 Chronic obstructive pulmonary disease, unspecified
CPT/HCPCS: 85025; 80048; 36415; 70450; 71250; 72125; 73030; 73552; 51702; 96375; 96374; 99285; J3360 ×2; J3010 ×2; J2405

== ENCOUNTER 2019-01-12 14:22 | Emergency (ER) | payer OTHER, BC ==
--- OUTSIDE RECORDS SUMMARY | 2019-01-12 14:24 | XMS REPORT ---
:1945 Author Organization [employer] Care Team Providers Name Role Phone Gordon Ireland Provider Role Unavailable Allergies, Adverse Reactions, Alerts Substance Reaction Event Type N.K.D.A. Info Not Available Non Drug Allergy Problems Problem Type Condition Code Onset Dates Condition Status Assessment Other closed displaced fracture of S42.292S Active proximal end of left humerus, sequela Assessment Sprain of left shoulder, S43.402A Active unspecified shoulder sprain type, initial encounter Assessment Acute pain of left shoulder M25.512 Active Medications Medication Code Code Instructions Start End Status Dosage System Date Date Divalproex [facility] 33707627734 500 MG Orally Active 1 tablet Sodium Twice a day Claritin [facility] 51555981616 10 MG Orally December 08, Active 1 tablet Once a day 2018 Memantine HCl [facility] [address]-78 Active not defined Oxybutynin [facility] 06404543231 5 MG Oral Active not Chloride ER defined Calcium ND 0 Oral Active 1 tab Promethazine HCl [facility] 90902372537 25 MG/ML Active 1 ml as Injection every needed 6 hrs Protonix [facility] 61895155610 40 MG Orally Active 1 tablet Once a day Atorvastatin [facility] [address]-34 Active not Calcium defined Carbamazepine [facility] [address]-47 Active not defined Melatonin [facility] 08080356444 3 MG Orally Active 1 tablet Once a day at bedtime as needed with food Trazodone HCl [facility] 99663018015 50 MG Oral Active not defined Imodium A-D [facility] 76135417568 2 MG Orally Active 1 tablet Four times a as needed day Simethicone [facility] 17166311878 80 MG Orally Active 1 tablet Four times a after day meals and at bedtime as needed Vitamin D [facility] 19812596448 1000 UNIT Active 1 tablet Orally Once a day Folic Acid-Vit [facility] 49417-[address]29 0.8-10-0.115 MG Active 1 tablet B6-Vit B12 Orally Once a day Donepezil HCl [facility] 17836683494 10 MG Oral Active not defined Flonase [facility] 0 50 MCG/DOSE December 08, Active 1 spray Nasally Twice a 2019 in each day nostril Benadryl Allergy [facility] 45220611057 25 MG Orally Active 1 tablet every 8 hrs as needed Zantac [facility] 59833244103 150 MG Orally Active 1 tablet Once a day at bedtime Duloxetine HCl [facility] 76140660818 60 MG Oral Active not defined Topiramate [facility] 81937010466 100 MG Oral Active not defined Ipratropium-Albu [facility] 44763268081 0.5-2.5 (3) Active 3 ml terol MG/3ML Inhalation every 6 hrs Results Name Result Date Reference Range Unit Abnormality Flag Physical/Occupational Therapy Summary Purpose [employer] Submission
[2019-01-12 15:44] LABS: Absolute Lymphocytes (CBC) 1.4 K/uL (0.7-4.9); Basophils % 0.9 % (0-1.3); Eosinophils % 5.5 % (0-4.4); Hematocrit 36.8 % (36.0-45.0); Lymphocytes % 17.7 % (15.3-44.8); MPV 8.7 fL (7.6-11.3); Monocytes % 7.5 % (3.3-12.3); RBC Red Blood Cell Count 3.97 M/uL (3.86-4.86)
[2019-01-12] MEDS ORDERED: NA CHLORIDE 0.9% 500 ML ONE (15:49)
[2019-01-12] MEDS ORDERED: ONDANSETRON 4 MG/2 ML VIAL ONE (15:49)
[2019-01-12 16:02] LABS: ALT/SGPT 14 U/L (12-78); AST/SGOT 10 U/L (15-37); Alkaline Phosphatase 147 U/L (45-117); BUN Blood Urea Nitrogen 20 mg/dL (7-18); Bicarbonate 25 mmol/L (21-32); Bilirubin Direct < 0.1 mg/dL (0-0.2); Bilirubin Total 0.2 mg/dL (0.2-1.0); Glucose Level 73 mg/dL (74-106); Lipase 133 U/L (73-393); Potassium 4.4 mmol/L (3.5-5.1); Protein, Total 6.9 g/dL (6.4-8.2); Sodium Level 141 mmol/L (136-145)
--- NOTE | 2019-01-12 16:53 | RAD REPORT ---
EXAM DESCRIPTION: CT - Abdomen Pelvis Wo Contrast - 01/12/2019 4:40 pm CLINICAL HISTORY: Abdominal pain. ABD PAIN COMPARISON: <Comparisons> TECHNIQUE: CT imaging of the abdomen and pelvis was performed without contrast. Solid organ, bowel a nd vascular assessment is limited due to lack of IV and oral contrast. All CT scans are performed using dose optimization technique as appropriate and may include automated exposure control or mA/KV adjustment according to patient size. FINDINGS: The lower lung serna are clear. The liver, spleen, pancreas, adrenal glands and kidneys are within normal limits for a limited non-co ntrast examination.IVC filter. No bowel obstruction, free air, free fluid or abscess. Moderate stool is present in the colon. The ap pendix is normal. Findings related to DISH are present at the thoracolumbar junction. IMPRESSION: No acute intra-abdominal or pelvic findings. A limited non-contrast examination was performed as detailed.
--- NOTE | 2019-01-12 17:37 | EDPHYS ---
Physician Documentation [facility] Name: Macrina Mason Age: 73 yrs Sex: Female : 1945 Arrival Date: 01/12/2019 Time: 14:24 Bed 25 Private MD: Rafael Clement ED Physician Kevyn Carrillo HPI: 01/12 15:27 This 73 yrs old Female presents to ER via Wheelchair with complaints of kb Nausea/Vomiting. 15:28 The patient presents to the emergency department with nausea, vomiting. Onset: The kb symptoms/episode began/occurred 2 week(s) ago. Possible causes: unknown. The symptoms are aggravated by nothing. The symptoms are alleviated by nothing. Associated signs and symptoms: Pertinent positives: abdominal pain, constipation, nausea, vomiting, Pertinent negatives: anorexia, belching, diarrhea, dysuria, fever, flatulence, GI bleeding, hematuria, vaginal discharge. Severity of symptoms: At their worst the symptoms were moderate in the emergency department the symptoms are unchanged. The patient has not experienced similar symptoms in the past. The patient has not recently seen a physician. Pt reports she got out of rehab 2 weeks ago and has nausea and vomiting since then. States she hasn't been able to hold anything down. Denies fever. States even in rehab she couldn't eat much. She has an appt with DR Clement today, but his office staff sent her here because she was so sick to her stomach. Reports she has had some constipation, but was able to have a BM this morning. Historical: - Allergies: 15:33 No Known Allergies; iw - Home Meds: 15:33 Amitiza 24 mcg Oral cap 1 cap 2 times per day [Active]; aspirin 325 mg Oral tab 1 tab iw once daily [Active]; carbamazepine 200 mg Oral CM12 1 cap 2 times per day [Active]; mirtazapine 30 mg Oral tab 1 tab once daily [Active]; trazodone 50 mg Oral tab nightly [Active]; divalproex 500 mg Oral Tb24 1 tab once daily [Active]; topiramate 100 mg oral CSpX 1 cap once daily [Active]; memantine 10 mg Oral tab 1 tab 2 times per day [Active]; lisinopril 2.5 mg Oral tab 1 tab twice a day [Active]; bisacodyl Oral as needed [Active]; Breo Ellipta 200-25 mcg/dose inhalation dsdv 1 puff once daily [Active]; amitriptyline 25 mg Oral tab 1 tab 2 times per day [Active]; folic acid 800 mcg Oral tab 1 tab once daily [Active]; gabapentin 800 mg oral tab 3 times per day [Active]; diclofenac sodium 75 mg Oral TbEC 1 tab 2 times per day [Active]; carvedilol 6.25 mg oral tab 1 tab 2 times per day [Active]; flaxseed oil 1,000 mg oral cap daily [Active]; fexofenadine 180 mg Oral tab 1 tab once daily [Active]; lorazepam 0.5 mg Oral tab 1 tab 2 times per day [Active]; duloxetine 60 mg oral cpDR 1 cap once daily [Active]; bupropion HCl 300 mg Oral Tb24 1 tab once daily [Active]; oxybutynin chloride 5 mg Oral tr24 2 tabs once daily [Active]; atorvastatin 20 mg Oral tab 1 tab once daily [Active]; levothyroxine 200 mcg tab 1 tab once daily [Active]; promethazine 25 mg Oral tab 1 tab every 6 hours [Active]; donepezil 10 mg Oral tab 1 tab twice a day [Active]; - PMHx: 15:38 allergies; Bipolar disorder; COPD; DVT; Schizophrenia; iw - PSHx: 15:38 eye surgery; both knee replacement; iw - Immunization history:: Adult Immunizations up to date. - Social history:: Smoking status: Patient/guardian denies using tobacco. - Ebola Screening: : Patient negative for fever greater than or equal to 101.5 degrees Fahrenheit, and additional compatible Ebola Virus Disease symptoms Patient denies exposure to infectious person Patient denies travel to an Ebola-affected area in the 21 days before illness onset No symptoms or risks identified at this time. ROS: 15:27 Constitutional: Negative for fever, chills, and weight loss, Neck: Negative for injury, kb pain, and swelling, Cardiovascular: Negative for chest pain, palpitations, and edema, Respiratory: Negative for shortness of breath, cough, wheezing, and pleuritic chest pain, Back: Negative for injury and pain, : Negative for injury, bleeding, discharge, and swelling, MS/Extremity: Negative for injury and deformity, Skin: Negative for injury, rash, and discoloration, Neuro: Negative for headache, weakness, numbness, tingling, and seizure. 15:27 Abdomen/GI: Positive for nausea and vomiting, constipation, Negative for abdominal pain, diarrhea, abdominal cramps, abdominal distension, anorexia. Exam: 15:26 Constitutional: This is a well developed, well nourished patient who is awake, alert, kb and in no acute distress. Head/Face: Normocephalic, atraumatic. Eyes: Pupils equal round and reactive to light, extra-ocular motions intact. Lids and lashes normal. Conjunctiva and sclera are non-icteric and not injected. Cornea within normal limits. Periorbital areas with no swelling, redness, or edema. ENT: Nares patent. No nasal discharge, no septal abnormalities noted. Tympanic membranes are normal and external auditory canals are clear. Oropharynx with no redness, swelling, or masses, exudates, or evidence of obstruction, uvula midline. Mucous membranes moist. Neck: Trachea midline, no thyromegaly or masses palpated, and no cervical lymphadenopathy. Supple, full range of motion without nuchal rigidity, or vertebral point tenderness. No Meningismus. Chest/axilla: Normal chest wall appearance and motion. Nontender with no deformity. No lesions are appreciated. Cardiovascular: Regular rate and rhythm with a normal S1 and S2. No gallops, murmurs, or rubs. Normal PMI, no JVD. No pulse deficits. Respiratory: Lungs have equal breath sounds bilaterally, clear to auscultation and percussion. No rales, rhonchi or wheezes noted. No increased work of breathing, no retractions or nasal flaring. Skin: Warm, dry with normal turgor. Normal color with no rashes, no lesions, and no evidence of cellulitis. MS/ Extremity: Pulses equal, no cyanosis. Neurovascular intact. Full, normal range of motion. Neuro: Awake and alert, GCS 15, oriented to person, place, time, and situation. Cranial nerves II-XII grossly intact. Motor strength 5/5 in all extremities. Sensory grossly intact. Cerebellar exam normal. Normal gait. 15:27 Abdomen/GI: Inspection: obese Bowel sounds: normal, Palpation: soft, in all quadrants, kb mild abdominal tenderness, in all quadrants. Vital Signs: 15:17 BP 118 / 58; Pulse 88; Resp 20; Temp 97.7; Pulse Ox 100% on R/A; Weight 108.86 kg; 5 Height 5 ft. 10 in. (177.80 cm); 17:16 BP 132 / 92; Pulse 64; Resp 17; Pulse Ox 98% on R/A; wh 18:00 BP 154 / 67; Pulse 69; Resp 18; Pulse Ox 100% on R/A; wh 15:17 Body Mass Index 34.44 (108.86 kg, 177.80 cm) [facility] MDM: 15:13 Patient medically screened. kb 15:26 Data reviewed: vital signs, nurses notes. Data interpreted: Pulse oximetry: on room air kb is 100 %. Interpretation: normal. 17:35 Counseling: I had a detailed discussion with the patient and/or guardian regarding: the kb historical points, exam findings, and any diagnostic results supporting the discharge/admit diagnosis, lab results, radiology results, the need for outpatient follow up, a family practitioner, to return to the emergency department if symptoms worsen or persist or if there are any questions or concerns that arise at home. 01/12 15:21 Order name: Basic Metabolic Panel; Complete Time: 16:06 kb 01/12 15:21 Order name: CBC with Diff; Complete Time: 15:53 kb 01/12 15:21 Order name: Hepatic Function; Complete Time: 16:06 kb 01/12 15:21 Order name: Lipase; Complete Time: 16:06 kb 01/12 16:34 Order name: Abdomen ; Complete Time: 17:02 EDMS 01/12 15:21 Order name: IV Saline Lock; Complete Time: 15:37 kb 01/12 15:21 Order name: Labs collected and sent; Complete Time: 15:37 kb Administered Medications: 15:38 Drug: NS 0.9% 500 ml Route: IV; Rate: bolus; Site: right antecubital; 18:16 Follow up: Response: No adverse reaction; IV Status: Completed infusion 15:38 Drug: Zofran 4 mg Route: IVP; Site: right antecubital; 18:16 Follow up: Response: No adverse reaction Disposition: 18:54 Co-signature as Attending Physician, Kevyn Carrillo MD I agree with the assessment and kdr plan of care. Disposition: 01/12/19 17:36 Discharged to Home. Impression: Nausea and vomiting. - Condition is Stable. - Discharge Instructions: Nausea and Vomiting, Adult, Nfyx-tw-Gpic. - Prescriptions for Zofran 4 mg Oral Tablet - take 1 tablet by ORAL route every 6 hours As needed; 20 tablet. - Medication Reconciliation Form, Thank You Letter, Antibiotic Education, Prescription Opioid Use form. - Follow up: Private Physician; When: 2 - 3 days; Reason: Recheck today's complaints, Continuance of care, Re-evaluation by your physician. Follow up: Emergency Department; When: As needed; Reason: Worsening of condition. Signatures: Dispatcher [employer] EDMS Mary Gage, JOHN HEAD HOUSEKEEPER-Kevyn Mart MD MD kdr Williams, Irene, RN RN iw Habalo, Winsy wh Corrections: (The following items were deleted from the chart) 15:28 15:26 Constitutional: This is a well developed, well nourished patient who is awake, kb alert, and in no acute distress. Head/Face: Normocephalic, atraumatic. Eyes: Pupils equal round and reactive to light, extra-ocular motions intact. Lids and lashes normal. Conjunctiva and sclera are non-icteric and not injected. Cornea within normal limits. Periorbital areas with no swelling, redness, or edema. ENT: Nares patent. No nasal discharge, no septal abnormalities noted. Tympanic membranes are normal and external auditory canals are clear. Oropharynx with no redness, swelling, or masses, exudates, or evidence of obstruction, uvula midline. Mucous membranes moist. Neck: Trachea midline, no thyromegaly or masses palpated, and no cervical lymphadenopathy. Supple, full range of motion without nuchal rigidity, or vertebral point tenderness. No Meningismus. Chest/axilla: Normal chest wall appearance and motion. Nontender with no deformity. No lesions are appreciated. Cardiovascular: Regular rate and rhythm with a normal S1 and S2. No gallops, murmurs, or rubs. Normal PMI, no JVD. No pulse deficits. Respiratory: Lungs have equal breath sounds bilaterally, clear to auscultation and percussion. No rales, rhonchi or wheezes noted. No increased work of breathing, no retractions or nasal flaring. Abdomen/GI: Soft, non-tender, with normal bowel sounds. No distension or tympany. No guarding or rebound. No evidence of tenderness throughout. Skin: Warm, dry with normal turgor. Normal color with no rashes, no lesions, and no evidence of cellulitis. MS/ Extremity: Pulses equal, no cyanosis. Neurovascular intact. Full, normal range of motion. Neuro: Awake and alert, GCS 15, oriented to person, place, time, and situation. Cranial nerves II-XII grossly intact. Motor strength 5/5 in all extremities. Sensory grossly intact. Cerebellar exam normal. Normal gait. kb 15:28 15:26 Constitutional: Negative for fever, chills, and weight loss, ENT: Negative for kb injury, pain, and discharge, Neck: Negative for injury, pain, and swelling, Cardiovascular: Negative for chest pain, palpitations, and edema, Abdomen/GI: Negative for abdominal pain, nausea, vomiting, diarrhea, and constipation, Back: Negative for injury and pain, : Negative for injury, bleeding, discharge, and swelling, MS/Extremity: Negative for injury and deformity, Skin: Negative for injury, rash, and discoloration, kb 15:28 15:26 Respiratory: Positive for shortness of breath, Negative for cough, dyspnea on kb exertion, hemoptysis, orthopnea, pleurisy, sputum production, wheezing, kb 15:28 15:26 Neuro: Positive for dizziness, near syncope, kb kb 15:30 15:27 Abdomen/GI: Positive for nausea and vomiting, Negative for abdominal pain, kb diarrhea, constipation, abdominal cramps, abdominal distension, anorexia, kb 15:30 15:28 Pt reports she got out of rehab 2 weeks ago and has nausea and vomiting since kb then. States she hasn't been able to hold anything down. Denies fever. States even in rehab she couldn't eat much. She has an appt with DR Clement today, but his office staff sent her here because she was so sick to her stomach. . kb 16:34 15:21 Abdomen Pelvis W Con+CT.RAD.BRZ ordered. EDMS EDMS 18:17 17:36 01/12/2019 17:36 Discharged to Home. Impression: Nausea and vomiting. Condition wh is Stable. Forms are Medication Reconciliation Form, Thank You Letter, Antibiotic Education, Prescription Opioid Use. Follow up: Private Physician; When: 2 - 3 days; Reason: Recheck today's complaints, Continuance of care, Re-evaluation by your physician. Follow up: Emergency Department; When: As needed; Reason: Worsening of condition. kb
--- NOTE | 2019-01-12 17:37 | ER ---
Nurse's Notes [facility] Name: Macrina Mason Age: 73 yrs Sex: Female : 1945 Arrival Date: 01/12/2019 Time: 14:24 Bed 25 [facility] MD: Rafael Clement Diagnosis: Nausea and vomiting Presentation: 01/12 15:23 Presenting complaint: Patient states: nausea, vomiting X 2 weeks, also constipated. iw Transition of care: patient was not received from another setting of care. Onset of symptoms was December 31, 2018. Risk Assessment: Do you want to hurt yourself or someone else? Patient reports no desire to harm self or others. Initial Sepsis Screen: Does the patient meet any 2 criteria? No. Patient's initial sepsis screen is negative. Does the patient have a suspected source of infection? No. Patient's initial sepsis screen is negative. Care prior to arrival: None. 15:23 Method Of Arrival: Wheelchair iw 15:23 Acuity: [place] 3 iw Triage Assessment: 16:54 General: Appears in no apparent distress. Pain: Complains of pain in abdomen Pain does wh not radiate. Pain currently is 5 out of 10 on a pain scale. 16:56 General: Behavior is calm, cooperative. wh Historical: - Allergies: 15:33 No Known Allergies; iw - Home Meds: 15:33 Amitiza 24 mcg Oral cap 1 cap 2 times per day [Active]; aspirin 325 mg Oral tab 1 tab iw once daily [Active]; carbamazepine 200 mg Oral CM12 1 cap 2 times per day [Active]; mirtazapine 30 mg Oral tab 1 tab once daily [Active]; trazodone 50 mg Oral tab nightly [Active]; divalproex 500 mg Oral Tb24 1 tab once daily [Active]; topiramate 100 mg oral CSpX 1 cap once daily [Active]; memantine 10 mg Oral tab 1 tab 2 times per day [Active]; lisinopril 2.5 mg Oral tab 1 tab twice a day [Active]; bisacodyl Oral as needed [Active]; Breo Ellipta 200-25 mcg/dose inhalation dsdv 1 puff once daily [Active]; amitriptyline 25 mg Oral tab 1 tab 2 times per day [Active]; folic acid 800 mcg Oral tab 1 tab once daily [Active]; gabapentin 800 mg oral tab 3 times per day [Active]; diclofenac sodium 75 mg Oral TbEC 1 tab 2 times per day [Active]; carvedilol 6.25 mg oral tab 1 tab 2 times per day [Active]; flaxseed oil 1,000 mg oral cap daily [Active]; fexofenadine 180 mg Oral tab 1 tab once daily [Active]; lorazepam 0.5 mg Oral tab 1 tab 2 times per day [Active]; duloxetine 60 mg oral cpDR 1 cap once daily [Active]; bupropion HCl 300 mg Oral Tb24 1 tab once daily [Active]; oxybutynin chloride 5 mg Oral tr24 2 tabs once daily [Active]; atorvastatin 20 mg Oral tab 1 tab once daily [Active]; levothyroxine 200 mcg tab 1 tab once daily [Active]; promethazine 25 mg Oral tab 1 tab every 6 hours [Active]; donepezil 10 mg Oral tab 1 tab twice a day [Active]; - PMHx: 15:38 allergies; Bipolar disorder; COPD; DVT; Schizophrenia; iw - PSHx: 15:38 eye surgery; both knee replacement; iw - Immunization history:: Adult Immunizations up to date. - Social history:: Smoking status: Patient/guardian denies using tobacco. - Ebola Screening: : Patient negative for fever greater than or equal to 101.5 degrees Fahrenheit, and additional compatible Ebola Virus Disease symptoms Patient denies exposure to infectious person Patient denies travel to an Ebola-affected area in the 21 days before illness onset No symptoms or risks identified at this time. Screenin:54 Abuse screen: Denies threats or abuse. Denies injuries from another. Nutritional wh screening: No deficits noted. Tuberculosis screening: No symptoms or risk factors identified. Fall Risk None identified. Assessment: 17:00 General: Appears in no apparent distress. Behavior is calm, cooperative, appropriate wh for age. Pain: Complains of pain in abdomen Pain does not radiate. Pain currently is 5 out of 10 on a pain scale. Pain began 2-3 days ago. Neuro: Level of Consciousness is awake, alert, obeys commands, Oriented to person, place, time, situation, Appropriate for age Family Practice Physician Assistant are equal bilaterally. Cardiovascular: Heart tones S1 S2. Respiratory: Airway is patent Respiratory effort is even, unlabored, Respiratory pattern is regular, symmetrical, Breath sounds are clear bilaterally. GI: Abdomen is round non-distended, Bowel sounds present X 4 quads. Abd is soft Reports nausea. EENT: No signs and/or symptoms were reported regarding the EENT system. Derm: Skin is intact, is healthy with good turgor, Skin is pink, warm \T\ dry. normal. Musculoskeletal: Range of motion: intact in all extremities. 18:02 Reassessment: Patient appears in no apparent distress at this time. Patient and/or wh family updated on plan of care and expected duration. Pain level reassessed. Patient is alert, oriented x 3, equal unlabored respirations, skin warm/dry/pink. Patient states feeling better. 18:14 Reassessment: Patient appears in no apparent distress at this time. Patient and/or wh family updated on plan of care and expected duration. Pain level reassessed. Patient is alert, oriented x 3, equal unlabored respirations, skin warm/dry/pink. Patient states feeling better. Patient states symptoms have improved. Vital Signs: 15:17 BP 118 / 58; Pulse 88; Resp 20; Temp 97.7; Pulse Ox 100% on R/A; Weight 108.86 kg; 5 Height 5 ft. 10 in. (177.80 cm); 17:16 BP 132 / 92; Pulse 64; Resp 17; Pulse Ox 98% on R/A; wh 18:00 BP 154 / 67; Pulse 69; Resp 18; Pulse Ox 100% on R/A; wh 15:17 Body Mass Index 34.44 (108.86 kg, 177.80 cm) [facility] ED Course: 14:24 Patient arrived in ED. as 14:24 Rafael Clement MD is Private Physician. as 15:12 Michoacano Guerrero is Primary Nurse. wh 15:13 Mary Gage FNP-C is [facility]. kb 15:13 Kevyn Carrillo MD is Attending Physician. kb 15:18 Patient has correct armband on for positive identification. Bed in low position. Call [facility] light in reach. Side rails up X 1. Adult w/ patient. Pulse ox on. NIBP on. 15:24 Triage completed. iw 15:30 Inserted saline lock: 20 gauge in right antecubital area, using aseptic technique. wh Blood collected. 15:36 Radiology exam delayed due to lab results not completed at this time. (BUN/Creatinine) or IV insertion attempt and/or patient not having appropriate IV at this time. 16:[address] via stretcher. or 16:40 Abdomen In Process Unspecified. EDMS 17:00 Patient notified of wait time. 18:15 No provider procedures requiring assistance completed. IV discontinued, intact, bleeding controlled, No redness/swelling at site. Administered Medications: 15:38 Drug: NS 0.9% 500 ml Route: IV; Rate: bolus; Site: right antecubital; 18:16 Follow up: Response: No adverse reaction; IV Status: Completed infusion 15:38 Drug: Zofran 4 mg Route: IVP; Site: right antecubital; 18:16 Follow up: Response: No adverse reaction Outcome: 17:36 Discharge ordered by MD. kb 18:15 Discharged to home via wheelchair, with family. 18:15 Condition: improved 18:15 Discharge instructions given to patient, family, Instructed on discharge instructions, follow up and referral plans. medication usage, POC Nausea Demonstrated understanding of instructions, follow-up care, medications, POC Prescriptions given X 1. 18:17 Patient left the ED. Signatures: Dispatcher [employer] EDWY Mary Gage, JOHN BARBER-Lisa Rothman Irene, RN RN iw Jordan, Nathan nj Martinez, Maria [facility] Michoacano Guerrero Corrections: (The following items were deleted from the chart) 15:38 15:37 NS 0.9% 500 ml IV at bolus in left antecubital [facility]
[2019-01-12 19:10] VITALS: TEMP 97.7
[2019-01-12 19:12] VITALS: BP 154/67; O2SAT 100
== END 2019-01-12 18:17 | disposition home or self-care (01) ==
LOC: ER 14:22
DX: R11.2 Nausea with vomiting, unspecified (principal); J44.9 Chronic obstructive pulmonary disease, unspecified; F31.9 Bipolar disorder, unspecified; F20.9 Schizophrenia, unspecified; Z79.82 Long term (current) use of aspirin; Z86.718 Personal history of other venous thrombosis and embolism
CPT/HCPCS: 96361; 85025; 80048; 36415; 80076; 83690; 74176; 96374; 99284; J2405

== ENCOUNTER 2019-01-20 11:24 | Emergency (ER) | payer OTHER, BC ==
--- OUTSIDE RECORDS SUMMARY | 2019-01-20 11:27 | XMS REPORT ---
[...] End Status Dosage System Date Date Divalproex [facility] 12189278580 500 MG Orally Active 1 tablet Sodium Twice a day Claritin [facility] 96170411479 10 MG Orally December 08, Active 1 tablet Once a day 2018 Memantine HCl [facility] [address]-29 Active not defined Oxybutynin [facility] 52845156179 5 MG Oral Active not Chloride ER defined Calcium ND 0 Oral Active 1 tab Promethazine HCl [facility] 72168982686 25 MG/ML Active 1 ml as Injection every needed 6 hrs Protonix [facility] 54949956471 40 MG Orally Active 1 tablet Once a day Atorvastatin [facility] [address]-50 Active not Calcium defined Carbamazepine [facility] [address]-53 Active not defined Melatonin [facility] 39004013905 3 MG Orally Active 1 tablet Once a day at bedtime as needed with food Trazodone HCl [facility] 16224921301 50 MG Oral Active not defined Imodium A-D [facility] 60845739072 2 MG Orally Active 1 tablet Four times a as needed day Simethicone [facility] 14496294523 80 MG Orally Active 1 tablet Four times a after day meals and at bedtime as needed Vitamin D [facility] 22627212928 1000 UNIT Active 1 tablet Orally Once a day Folic Acid-Vit [facility] [address]24 0.8-10-0.115 MG Active 1 tablet B6-Vit B12 Orally Once a day Donepezil HCl [facility] 88603837269 10 MG Oral Active not defined Flonase [facility] 0 50 MCG/DOSE December 08, Active 1 spray Nasally Twice a 2019 in each day nostril Benadryl Allergy [facility] 06771403029 25 MG Orally Active 1 tablet every 8 hrs as needed Zantac [facility] 58583871053 150 MG Orally Active 1 tablet Once a day at bedtime Duloxetine HCl [facility] 24236148958 60 MG Oral Active not defined Topiramate [facility] 33856000365 100 MG Oral Active not defined Ipratropium-Albu [facility] 89271522523 0.5-2.5 (3) Active 3 ml terol MG/3ML Inhalation every 6 hrs Results Name Result Date Reference Range Unit Abnormality Flag Physical/Occupational Therapy Summary Purpose eClinicalWorks Submission
--- NOTE | 2019-01-20 12:24 | RAD REPORT ---
EXAM DESCRIPTION: CT - Head Brain Wo Cont - 01/20/2019 12:17 pm CLINICAL HISTORY: WEAKNESS Headache, drowsiness, CVA symptomology. COMPARISON: Sinus Wo Cont dated 10/04/2017; HEAD BRAIN W O CONTRAST dated 12/26/2014 TECHNIQUE: All CT scans are performed using dose optimization technique as appropriate and may inclu de automated exposure control or mA/KV adjustment according to patient size. FINDINGS: No intracranial hemorrhage, hydrocephalus or extra-axial fluid collection.Mild generalized brain atrophy is present with mild periventricular and deep white matter chronic microvascular ische phil changes.No areas of brain edema or evidence of midline shift. Mild mucosal thickening affects the right maxillary antrum. The paranasal sinuses mastoids appear oth erwise clear. The calvarium is intact. IMPRESSION: No acute intracranial abnormality.
[2019-01-20 12:54] LABS: Absolute Lymphocytes (CBC) 1.1 K/uL (0.7-4.9); Basophils % 0.5 % (0-1.3); Eosinophils % 5.5 % (0-4.4); Hematocrit 28.6 % (36.0-45.0); Lymphocytes % 22.7 % (15.3-44.8); MPV 9.8 fL (7.6-11.3); Monocytes % 6.5 % (3.3-12.3); RBC Red Blood Cell Count 3.07 M/uL (3.86-4.86)
[2019-01-20 13:02] LABS: Protime INR 1.02
[2019-01-20] MEDS ORDERED: FENTANYL CITR 100 MCG/2 ML ONE ×3 (13:15→21:42)
[2019-01-20 13:17] LABS: ALT/SGPT 18 U/L (12-78); AST/SGOT 16 U/L (15-37); Albumin 2.7 g/dL (3.4-5.0); Alkaline Phosphatase 125 U/L (45-117); BUN Blood Urea Nitrogen 18 mg/dL (7-18); Bicarbonate 24 mmol/L (21-32); Bilirubin Direct < 0.1 mg/dL (0-0.2); Bilirubin Total 0.1 mg/dL (0.2-1.0); Glucose Level 80 mg/dL (74-106); Magnesium 2.3 mg/dL (1.8-2.4); NT PRO-BNP 1262 pg/mL (<125); Potassium 4.6 mmol/L (3.5-5.1); Sodium Level 145 mmol/L (136-145); Troponin (Emerg Dept Use Only) 0.05 ng/mL (0.0-0.045)
--- NOTE | 2019-01-20 13:28 | RAD REPORT ---
EXAM DESCRIPTION: Zack Single View01/20/2019 1:18 pm CLINICAL HISTORY: Chest pain COMPARISON: March 2018 FINDINGS: The lungs appear clear of acute infiltrate. The heart is borderline enlarged IMPRESSION: No acute abnormalities displayed
--- NOTE | 2019-01-20 13:52 | RAD REPORT ---
EXAM DESCRIPTION: RAD - Shoulder Left 2 View - 01/20/2019 1:40 pm CLINICAL HISTORY: Left shoulder pain FINDINGS: Old left humeral neck fracture No acute fracture or dislocation seen. Osteoporosis
[2019-01-20 15:04] LABS: Urine Blood NEGATIVE (NEG); Urine Glucose NEGATIVE (NEG); Urine Protein NEGATIVE (NEG)
[2019-01-20 15:31] LABS: Urine Bacteria <20 /HPF (<20); Urine Culture Reflex Order REFLEXED; Urine RBC NONE SEEN /HPF (NONE SEEN)
--- NOTE | 2019-01-20 15:36 | EKG ---
Test Date: 2019-01-20 Test Time: 12:35:12 Sr. Operations Manager: KELLY MEASUREMENT RESULTS: Intervals: Rate: 67 OH: 198 QRSD: 116 QT: 450 QTc: 475 Mcdowell: P: 51 OH: 198 QRS: -34 T: 23 INTERPRETIVE STATEMENTS: Normal sinus rhythm Left axis deviation Cannot rule out Anterior infarct, age undetermined Abnormal ECG Compared to ECG 03/19/2018 17:39:08 Left-axis deviation now present Myocardial infarct finding now present Sinus arrhythmia no longer present Electronically Signed On 01-20-19 15:35:10 CDT by Cuba Sotelo
--- NOTE | 2019-01-20 16:52 | RAD REPORT ---
EXAM DESCRIPTION: MRI - Brain W/Wo Cont - 01/20/2019 4:41 pm CLINICAL HISTORY: . Headache, drowsiness, CVA symptomology, seizure COMPARISON: MRA Head Wo Cont dated 01/20/2019; Head Brain Wo Cont dated 01/20/2019; Sinus Wo Cont date d 10/04/2017 TECHNIQUE: Multi-sequence, multiplanar MR imaging of the brain was performed with contrast. FINDINGS: No intracranial hemorrhage, hydrocephalus, or extra-axial fluid collection.Mild brain atro phy with mild T2 and FLAIR hyperintensity in the periventricular and deep white matter compatible wit h chronic microvascular ischemic changes. No edema or shift of midline structures. No intracranial ma ss. DWI is negative for acute CVA. The midline structures are normally formed. Coronal T1 and T2 weighted sequences show symmetric hippo campal structures and temporal lobes.Mild mucosal thickening of the right maxillary antrum is seen. T he paranasal sinuses and mastoids are otherwise clear. Post-contrast images show no abnormal enhancement to suggest tumor or infection. IMPRESSION: Negative for acute CVA or other acute intracranial process. No pathologic post-contrast enhancement suspected.
--- NOTE | 2019-01-20 16:56 | RAD REPORT ---
EXAM DESCRIPTION: MRI - MRA Head Wo Cont - 01/20/2019 4:42 pm CLINICAL HISTORY: WEAKNESS CVA COMPARISON: Head Brain Wo Cont dated 01/20/2019 FINDINGS: 3D noncontrast [id number] MR angiography of the [place] was performed. No aneurysm, flow-limiting stenosis or vascular malformation is seen. Forward flow seen in codominant vertebral arteries. The visualized dural venous sinuses appear patent. IMPRESSION: No significant flow abnormality of the [place] is identified.
--- NOTE | 2019-01-20 16:58 | RAD REPORT ---
EXAM DESCRIPTION: MRI - MRA Neck W/Wo Cont - 01/20/2019 4:42 pm CLINICAL HISTORY: . Headache, drowsiness, CVA COMPARISON: No comparisons FINDINGS: Contrast enhance 2D [id number] MR angiography of the neck vessels was performed. A left aortic arch is present with normal branching pattern of the great vessels. Both common carotid arteries and subclavian arteries are widely patent. No significant internal carotid artery stenosis identified. Antegrade flow seen in both vertebral art eries. IMPRESSION: No significant flow abnormality of the neck vessels identified.
[2019-01-20] MEDS ORDERED: MORPHINE 4 MG/ML SYR ONE (17:07)
[2019-01-20] MEDS ORDERED: NA CHLORIDE 0.9% 500 ML ONE (17:10)
--- NOTE | 2019-01-20 18:51 | ER ---
Nurse's Notes [facility] Name: Macrina Mason Age: 73 yrs Sex: Female : 1945 Arrival Date: 01/20/2019 Time: 11:34 Bed 15 Private MD: Diagnosis: Other chronic pain;Weakness Presentation: 01/20 11:41 Presenting complaint: EMS states: pt ambulated to restroom while using a walker, became sg really weak while sitting on the toilet, was able to stand with the help of the walker and the but reported to her that she needs to sit down and was able to sit herself on the floor, pt reports left arm pain from a previous injury and break from a fall several weeks ago. Transition of care: patient was not received from another setting of care. Onset of symptoms was January 20, 2019. Risk Assessment: Do you want to hurt yourself or someone else? Patient reports no desire to harm self or others. Initial Sepsis Screen: Does the patient meet any 2 criteria? No. Patient's initial sepsis screen is negative. Does the patient have a suspected source of infection? No. Patient's initial sepsis screen is negative. Care prior to arrival: Medication(s) given: Normal saline infusion, 900 mL zofran 4 mg, IV initiated. 18 GA, in the right antecubital area. 11:41 Method Of Arrival: EMS: [facility] sg 11:41 Acuity: [place] 3 sg 11:57 Note pt reports fall was in september, has had rehab and PT for treatment after fall. sg Historical: - Allergies: 11:56 No Known Allergies; sg - PMHx: 11:56 allergies; Bipolar disorder; COPD; DVT; Schizophrenia; sg - PSHx: 11:56 eye surgery; both knee replacement; sg - Immunization history:: Adult Immunizations up to date. - Social history:: Smoking status: Patient/guardian denies using tobacco. - Ebola Screening: : Patient negative for fever greater than or equal to 101.5 degrees Fahrenheit, and additional compatible Ebola Virus Disease symptoms Patient denies exposure to infectious person Patient denies travel to an Ebola-affected area in the 21 days before illness onset No symptoms or risks identified at this time. Screenin:10 Abuse screen: Denies threats or abuse. Denies injuries from another. Nutritional sg screening: No deficits noted. Tuberculosis screening: No symptoms or risk factors identified. Never had TB. Fall Risk None identified. Assessment: 13:02 Reassessment: xray at bedside at this time. sg 15:10 Reassessment: pt reports having pain in the left hip and left knee at this time, pt sg states she did not fall but is unsure if while sitting herself down if she injured herself. 16:46 Reassessment: Patient appears in no apparent distress at this time. Patient and/or sg family updated on plan of care and expected duration. Pain level reassessed. Patient is alert, oriented x 3, equal unlabored respirations, skin warm/dry/pink. pt returned from MRI at this time, pt tolerated scan well, pt son remains at bedside at this time, awaiting results, awaiting dispo, will continue to monitor. 19:04 Reassessment: Patient appears in no apparent distress at this time. Patient and/or aa1 family updated on plan of care and expected duration. Pain level reassessed. Patient is alert, oriented x 3, equal unlabored respirations, skin warm/dry/pink. Pt's son notified of d/c and states he will be here shortly to pick her up. 19:30 Reassessment: Pt's son present for d/c. Pt states she cannot go home because she is aa1 still having pain. States, "I'm not leaving. I can't go home. It's not my fault you can't find anything wrong with me." Informed pt that unfortunately we are not able to admit her to the hospital through the emergency but she is welcome to contact her PCP to see if he is able to direct admit her to the hospital. Pt reports she will contact Dr. Clement at this time. 19:55 Reassessment: This RN and Anisha RN at bedside for discharge instructions pt states she bb is not going home "It is not my fault that they can't find out what is wrong with me" instructed pt that EDP tried to contact her provider and left a message with him, along with rehab facility but they were unable to contact anyone, instructed pt again that all of her test results were negative and that there was no medical reason for pt to be admitted at this time and that she should follow up with her primary care doctor for further evaluation. 20:21 Reassessment: spoke to Dr Clement who stated he saw pt 2 days ago in his office and that bb she was okay to be discharged home and she should follow-up with him next week. 21:30 Reassessment: Dr Carrillo notified pt c/o pain unable to get into wheelchair with out bb pain medication new orders received pt medicated see SEP. 21:56 Reassessment: Patient appears in no apparent distress at this time. Patient is alert, aa1 oriented x 3, equal unlabored respirations, skin warm/dry/pink. Pt dc'd at this time and transported to [facility] by wheelchair. Vital Signs: 11:43 Pulse 77; Resp 18; Temp 97.6; Pulse Ox 100% on R/A; sg 11:57 BP 136 / 67; sg 12:00 BP 135 / 85; Pulse 76; Resp 18; Temp 97.9(TE); Pulse Ox 100% on R/A; mh5 13:00 BP 115 / 56; Pulse 62; Resp 18; Pulse Ox 100% on R/A; mh5 15:01 BP 103 / 64; Pulse 66; Resp 18; Temp 97.7; Pulse Ox 100% on R/A; mh5 16:53 BP 133 / 68; Pulse 65; Resp 18; Temp 97.0(TE); Pulse Ox 100% ; mh5 18:20 BP 136 / 65; Pulse 62; Resp 18; Temp 97.9(TE); Pulse Ox 100% on R/A; mh5 19:30 BP 150 / 75; Pulse 68; Resp 18; Temp 98.0; Pulse Ox 100% on R/A; aa1 ED Course: 11:34 Patient arrived in ED. sg 11:42 Triage completed. sg 11:42 Arm band placed on. sg 11:42 Patient has correct armband on for positive identification. Bed in low position. Call 5 light in reach. Side rails up X2. Adult w/ patient. Warm blanket given. Pulse ox on. NIBP on. 11:54 Edwar Higginbotham NP is PHCP. pm1 11:54 Cheng Sanches MD is Attending Physician. pm1 12:15 Maintain EMS IV. Good blood return noted. Site clean \\T\\ dry. Gauge \\T\\ site: 18 G RAC. IV sg is patent, with good blood return. 12:16 CT Head Brain wo Cont In Process Unspecified. EDMS 12:44 EKG done, by pharmacy technician assistant. reviewed by Cheng Sanches MD. at1 12:54 Jack Leos, RN is Primary Nurse. sg 13:17 X-ray completed. Portable x-ray completed in exam room. Patient tolerated procedure jb2 well. 13:19 XRAY Chest (1 view) In Process Unspecified. EDMS 13:41 Shoulder Left (2 View) XRAY In Process Unspecified. EDMS 14:49 Steele cath inserted, using sterile technique, 16 Fr., by va, balloon inflated, to sg gravity drainage, urine specimen collected. returned clear yellow urine. Patient tolerated well. 14:58 Urine Dipstick--Ancillary (enter results) Sent. mh5 14:58 Urine Microscopic Only Sent. mh5 14:58 Basic Metabolic Panel Sent. 5 14:58 CBC with Diff Sent. mh5 14:59 Urine collected: Steele catheter specimen, clear, Amount Returned: 240mL. mh5 16:41 MRA Head Wo Cont In Process Unspecified. EDMS 16:41 Brain W/Wo Cont In Process Unspecified. EDMS 16:41 MRA Neck W/Wo Cont In Process Unspecified. EDMS 16:52 MRI completed. Patient tolerated well. em2 17:40 Repeat lab(s) drawn. by ED staff, sent to lab. sg 19:30 No provider procedures requiring assistance completed. Steele cath removed intact, aa1 balloon deflated. IV discontinued, intact, bleeding controlled, No redness/swelling at site. Pressure dressing applied. Administered Medications: 13:02 Drug: fentaNYL (PF) 25 mcg Route: IVP; Site: right antecubital; sg 14:15 Follow up: Response: No adverse reaction sg 16:55 Drug: NS 0.9% 500 ml Route: IV; Rate: bolus; Site: right antecubital; sg 19:00 Follow up: IV Status: Completed infusion; IV Intake: 500ml aa1 16:55 Drug: morphine 4 mg Route: IVP; Site: right antecubital; sg 18:25 Drug: fentaNYL (PF) 25 mcg Route: IVP; Site: right antecubital; aa5 19:25 Follow up: Response: No adverse reaction; Pain is decreased aa1 18:55 Drug: Bactrim (160 mg-800 mg (DS) 1 tablet Route: PO; sg 19:55 Follow up: Response: No adverse reaction aa1 21:50 Drug: fentaNYL (PF) 25 mcg Route: IM; Site: right deltoid; bb 22:04 Follow up: Response: Medication administered at discharge. bb Intake: 19:00 IV: 500ml; Total: 500ml. aa1 Outcome: 18:50 Discharge ordered by MD. pm1 22:00 Discharged to home via wheelchair, with family. aa1 22:00 Condition: good 22:00 Discharge instructions given to patient, family, Instructed on discharge instructions, follow up and referral plans. Demonstrated understanding of instructions, follow-up care. 22:11 Patient left the ED. aa1 Signatures: Dispatcher [employer] EDMS Jack Leos RN RN sg Anisha Lafleur RN RN aa1 Kwaku Escobar jb2 Priya Law RN RN bb Rachel Vann RN RN aa5 Mando Dela Cruz em2 Rafaela Harris, household appliances service technician EKG Tat1 Edwar Higginbotham, HARDBOARD FACTORY WORKER HARDBOARD FACTORY WORKER pm1 Supriya Zhong [facility] Corrections: (The following items were deleted from the chart) 14:58 11:41 Care prior to arrival: Medication(s) given: zofran 4 mg, IV initiated. 18 GA, in sg the right antecubital area, sg
--- NOTE | 2019-01-20 18:52 | EDPHYS ---
Physician Documentation [facility] Name: Macrina Mason Age: 73 yrs Sex: Female : 1945 Arrival Date: 01/20/2019 Time: 11:34 Bed 15 Private MD: ED Physician Cheng Sanches HPI: 01/20 12:48 This 73 yrs old Female presents to ER via EMS with complaints of Generalized pm1 Weakness, Left Shoulder Pain. 12:48 The patient's problem is reported as weakness, that is generalized. pm1 15:18 Onset: The symptoms/episode began/occurred this morning, at 06:30, upon waking up. pm1 Duration: The episode is continuous. Context: occurred at home, Possible contributing factors include: Recent UTI and prescribed sulfa per Dr. Rose. The symptoms are alleviated by nothing. The symptoms are aggravated by nothing. Associated signs and symptoms: Pertinent positives: nausea, Left shoulder pain, Pertinent negatives: abdominal pain, chest pain, dizziness, headache, numbness, tingling. Severity of symptoms:. Patient's baseline: Neuro: alert and fully oriented, Motor: no deficits, Ambulation: walks with assist only, uses walker, Speech: normal. The patient has been recently seen by a physician: the patient's primary care provider, Dr. Rose. Historical: - Allergies: 11:56 No Known Allergies; sg - PMHx: 11:56 allergies; Bipolar disorder; COPD; DVT; Schizophrenia; sg - PSHx: 11:56 eye surgery; both knee replacement; sg - Immunization history:: Adult Immunizations up to date. - Social history:: Smoking status: Patient/guardian denies using tobacco. - Ebola Screening: : Patient negative for fever greater than or equal to 101.5 degrees Fahrenheit, and additional compatible Ebola Virus Disease symptoms Patient denies exposure to infectious person Patient denies travel to an Ebola-affected area in the 21 days before illness onset No symptoms or risks identified at this time. ROS: 15:18 Constitutional: Negative for fever, chills, and weight loss, Eyes: Negative for injury, pm1 pain, redness, and discharge, ENT: Negative for injury, pain, and discharge, Neck: Negative for injury, pain, and swelling, Cardiovascular: Negative for chest pain, palpitations, and edema, Respiratory: Negative for shortness of breath, cough, wheezing, and pleuritic chest pain, Abdomen/GI: Negative for abdominal pain, nausea, vomiting, diarrhea, and constipation, : Negative for injury, bleeding, discharge, and swelling, Skin: Negative for injury, rash, and discoloration. 15:18 Back: Positive for pain with movement, of the low back area. 15:18 MS/extremity: Positive for pain, of the anterior aspect of left shoulder, left antecubital area and left wrist and left hip. 15:18 Neuro: Positive for weakness, of the generalized, Negative for altered mental status, dizziness, headache, numbness, seizure activity, syncope, tingling. Exam: 13:05 Radiologist reports: No acute intracranial abnormality pm1 15:18 Constitutional: This is a well developed, well nourished patient who is awake, alert, pm1 and in no acute distress. Head/Face: Normocephalic, atraumatic. Eyes: Pupils equal round and reactive to light, extra-ocular motions intact. Lids and lashes normal. Conjunctiva and sclera are non-icteric and not injected. Cornea within normal limits. Periorbital areas with no swelling, redness, or edema. ENT: Nares patent. No nasal discharge, no septal abnormalities noted. Tympanic membranes are normal and external auditory canals are clear. Oropharynx with no redness, swelling, or masses, exudates, or evidence of obstruction, uvula midline. Mucous membranes moist. Neck: Trachea midline, no thyromegaly or masses palpated, and no cervical lymphadenopathy. Supple, full range of motion without nuchal rigidity, or vertebral point tenderness. No Meningismus. Chest/axilla: Normal chest wall appearance and motion. Nontender with no deformity. No lesions are appreciated. Cardiovascular: Regular rate and rhythm with a normal S1 and S2. No gallops, murmurs, or rubs. Normal PMI, no JVD. No pulse deficits. Respiratory: Lungs have equal breath sounds bilaterally, clear to auscultation and percussion. No rales, rhonchi or wheezes noted. No increased work of breathing, no retractions or nasal flaring. Abdomen/GI: Soft, non-tender, with normal bowel sounds. No distension or tympany. No guarding or rebound. No evidence of tenderness throughout. Back: No spinal tenderness. No costovertebral tenderness. Full range of motion. Skin: Warm, dry with normal turgor. Normal color with no rashes, no lesions, and no evidence of cellulitis. 15:18 Musculoskeletal/extremity: Extremities: grossly normal except: noted in the left knee, left hip, left wrist, and anterior aspect of left shoulder: tenderness, pain with movement of joints, Circulation is intact in all extremities. 15:18 Neuro: Orientation: is normal, Cranial nerves: CN II- XII are normal as tested, Motor: is normal, moves all fours, Sensation: is normal, no obvious gross deficits. 15:18 Neuro: Motor: Patient with 5/5 strength bilateral plantar and dorsiflexion of both pm1 great toes. Vital Signs: 11:43 Pulse 77; Resp 18; Temp 97.6; Pulse Ox 100% on R/A; sg 11:57 BP 136 / 67; sg 12:00 BP 135 / 85; Pulse 76; Resp 18; Temp 97.9(TE); Pulse Ox 100% on R/A; mh5 13:00 BP 115 / 56; Pulse 62; Resp 18; Pulse Ox 100% on R/A; mh5 15:01 BP 103 / 64; Pulse 66; Resp 18; Temp 97.7; Pulse Ox 100% on R/A; mh5 16:53 BP 133 / 68; Pulse 65; Resp 18; Temp 97.0(TE); Pulse Ox 100% ; mh5 18:20 BP 136 / 65; Pulse 62; Resp 18; Temp 97.9(TE); Pulse Ox 100% on R/A; mh5 19:30 BP 150 / 75; Pulse 68; Resp 18; Temp 98.0; Pulse Ox 100% on R/A; aa1 MDM: 12:03 Patient medically screened. pm1 18:15 Data reviewed: vital signs. Data interpreted: Pulse oximetry: on room air is 100 %. pm1 Interpretation: normal. 18:25 ED course: Left message with Autumn Boudreaux RN with [facility] [address] 18:37 ED course: Called [facility] [place]. No answer and mailbox pm1 is full. 18:47 Counseling: I had a detailed discussion with the patient and/or guardian regarding: the pm1 historical points, exam findings, and any diagnostic results supporting the discharge/admit diagnosis, lab results, radiology results, the need for outpatient follow up. 18:50 ED course: Left message on Dr. Rose's voice mail regarding patient and impression of pm1 chronic pain and patient's desire for intermediate, home health, and/or physical therapy. 01/20 12:07 Order name: Basic Metabolic Panel pm1 01/20 12:07 Order name: CBC with Diff pm1 01/20 12:07 Order name: LFT's; Complete Time: 14:17 pm1 01/20 12:07 Order name: Magnesium; Complete Time: 14:17 pm1 01/20 12:07 Order name: NT PRO-BNP; Complete Time: 14:17 pm01/20 12:07 Order name: PT-INR; Complete Time: 13:08 pm1 01/20 12:04 Order name: CT Head Brain wo Cont; Complete Time: 12:32 pm1 01/20 12:07 Order name: Troponin (emerg Dept Use Only); Complete Time: 14:17 pm1 01/20 12:07 Order name: Urine Microscopic Only; Complete Time: 16:14 pm1 01/20 12:08 Order name: Basic Metabolic Panel; Complete Time: 14:17 EDMS 01/20 12:08 Order name: CBC with Automated Diff; Complete Time: 13:08 EDMS 01/20 14:56 Order name: Urine Dipstick--Ancillary (enter results); Complete Time: 16:14 ms 01/20 15:32 Order name: Urine Culture EDMS 01/20 16:40 Order name: Troponin (emerg Dept Use Only); Complete Time: 18:19 pm1 01/20 12:07 Order name: XRAY Chest (1 view); Complete Time: 14:17 pm01/20 12:07 Order name: EKG; Complete Time: 12:09 pm01/20 12:07 Order name: Cardiac monitoring; Complete Time: 12:10 pm01/20 12:07 Order name: EKG - Nurse/Tech; Complete Time: 18:56 pm01/20 12:07 Order name: IV Saline Lock; Complete Time: 12:10 pm01/20 12:07 Order name: Shoulder Left (2 View) XRAY; Complete Time: 14:17 pm01/20 15:20 Order name: MRA Head Wo Cont; Complete Time: 17:06 EDMS 01/20 15:20 Order name: Brain W/Wo Cont; Complete Time: 16:55 EDMS 01/20 15:20 Order name: MRA Neck W/Wo Cont; Complete Time: 17:06 EDMS 01/20 12:07 Order name: Labs collected and sent; Complete Time: 12:10 pm1 01/20 12:07 Order name: O2 Per Protocol; Complete Time: 12:10 pm1 01/20 12:07 Order name: O2 Sat Monitoring; Complete Time: 12:10 pm1 01/20 12:07 Order name: Urine Dipstick-Ancillary (obtain specimen); Complete Time: 14:58 pm1 01/20 14:32 Order name: Orthostatic Blood Pressure; Complete Time: 14:48 pm1 01/20 14:32 Order name: Straight Cath - Urine; Complete Time: 14:48 ms Administered Medications: 13:02 Drug: fentaNYL (PF) 25 mcg Route: IVP; Site: right antecubital; sg 14:15 Follow up: Response: No adverse reaction sg 16:55 Drug: NS 0.9% 500 ml Route: IV; Rate: bolus; Site: right antecubital; sg 19:00 Follow up: IV Status: Completed infusion; IV Intake: 500ml aa1 16:55 Drug: morphine 4 mg Route: IVP; Site: right antecubital; sg 18:25 Drug: fentaNYL (PF) 25 mcg Route: IVP; Site: right antecubital; aa5 19:25 Follow up: Response: No adverse reaction; Pain is decreased aa1 18:55 Drug: Bactrim (160 mg-800 mg (DS) 1 tablet Route: PO; sg 19:55 Follow up: Response: No adverse reaction aa1 21:50 Drug: fentaNYL (PF) 25 mcg Route: IM; Site: right deltoid; bb 22:04 Follow up: Response: Medication administered at discharge. bb Disposition: 01/21 18:33 Co-signature as Attending Physician, Cheng Sanches MD. gs Disposition: 01/20/19 18:50 Discharged to Home. Impression: Weakness, Other chronic pain. - Condition is Stable. - Discharge Instructions: Chronic Pain, Weakness. - Medication Reconciliation Form, Thank You Letter, Antibiotic Education, Prescription Opioid Use form. - Follow up: Emergency Department; When: As needed; Reason: Worsening of condition. Follow up: Private Physician; When: 2 - 3 days; Reason: Recheck today's complaints, Continuance of care, Re-evaluation by your physician. - Problem is new. - Symptoms have improved. - Notes: [address] [address] Autumn Boudreaux RN [phone] Signatures: Dispatcher [employer] EDMS Jack Leos, RN RN sg Anisha Lafleur RN RN aa1 Priya Law, RN RN Supriya Nielsen ms, Audri, RN RN aa5 Edwar Higginbotham, AUTOMATIC PROFILE SANDER OPERATOR AUTOMATIC PROFILE SANDER OPERATOR pm1 Cheng Sanches MD MD gs Corrections: (The following items were deleted from the chart) 01/20 15:19 15:05 MR STROKE PROTOCOL+MRI.RAD.BRZ ordered. [facility] 22:11 18:50 01/20/2019 18:50 Discharged to Home. Impression: WeaknessOther chronic pain. aa1 Condition is Stable. Forms are Medication Reconciliation Form, Thank You Letter, Antibiotic Education, Prescription Opioid Use. Follow up: Emergency Department; When: As needed; Reason: Worsening of condition. Follow up: Private Physician; When: 2 - 3 days; Reason: Recheck today's complaints, Continuance of care, Re-evaluation by your physician. Problem is new. Symptoms have improved. pm1
[2019-01-20] MEDS ORDERED: SMZ./TMP. 800/160 MG TABLET ONE (19:05)
[2019-01-20 23:54] VITALS: O2SAT 100
[2019-01-21 01:06] VITALS: BP 150/75; TEMP 98
== END 2019-01-20 22:11 | disposition home or self-care (01) ==
LOC: ER 11:24
DX: G89.29 Other chronic pain (principal); Z96.653 Presence of artificial knee joint, bilateral
CPT/HCPCS: 96361; 93005; 87088; 85025; 87086; 80048; 36415; 83735; 85610; 80076; 84484 ×2; 83880; 70450; 71045; 73030; 70553; 70544; 70549; 51702; 96375; 96372; 96374; 99285; A9577; J3010 ×3; 81003; 81015

== ENCOUNTER 2019-03-21 17:17 | Inpatient (IN) | payer OTHER, BC ==
--- OUTSIDE RECORDS SUMMARY | 2019-03-21 17:20 | XMS REPORT ---
[...] End Status Dosage System Date Date Divalproex [facility] 17885423331 500 MG Orally Active 1 tablet Sodium Twice a day Claritin [facility] 84585894440 10 MG Orally December 08, Active 1 tablet Once a day 2018 Memantine HCl [facility] [address]-32 Active not defined Oxybutynin [facility] 79989401378 5 MG Oral Active not Chloride ER defined Calcium ND 0 Oral Active 1 tab Promethazine HCl [facility] 01901875866 25 MG/ML Active 1 ml as Injection every needed 6 hrs Protonix [facility] 81328180093 40 MG Orally Active 1 tablet Once a day Atorvastatin [facility] [address]-93 Active not Calcium defined Carbamazepine [facility] [address]-41 Active not defined Melatonin [facility] 86035631370 3 MG Orally Active 1 tablet Once a day at bedtime as needed with food Trazodone HCl [facility] 60741885679 50 MG Oral Active not defined Imodium A-D [facility] 62407156182 2 MG Orally Active 1 tablet Four times a as needed day Simethicone [facility] 15481500290 80 MG Orally Active 1 tablet Four times a after day meals and at bedtime as needed Vitamin D [facility] 55077870259 1000 UNIT Active 1 tablet Orally Once a day Folic Acid-Vit [facility] 11389-85738 0.8-10-0.115 MG Active 1 tablet B6-Vit B12 Orally Once a day Donepezil HCl [facility] 99150374468 10 MG Oral Active not defined Flonase [facility] 0 50 MCG/DOSE December 08, Active 1 spray Nasally Twice a 2019 in each day nostril Benadryl Allergy [facility] 70036904409 25 MG Orally Active 1 tablet every 8 hrs as needed Zantac [facility] 75273752276 150 MG Orally Active 1 tablet Once a day at bedtime Duloxetine HCl [facility] 57930274739 60 MG Oral Active not defined Topiramate [facility] 74190166431 100 MG Oral Active not defined Ipratropium-Albu [facility] 64995072918 0.5-2.5 (3) Active 3 ml terol MG/3ML Inhalation every 6 hrs Results Name Result Date Reference Range Unit Abnormality Flag Physical/Occupational Therapy Summary Purpose eClinicalWorks Submission
--- OUTSIDE RECORDS SUMMARY | 2019-03-21 17:20 | XMS REPORT ---
:1945 [facility] [address] [place] [id number] Care Team Providers Name Role Phone Unavailable Unavailable Unavailable Problems This patient has no known problems. Allergies, Adverse Reactions, Alerts This patient has no known allergies or adverse reactions. Medications This patient has no known medications.
[2019-03-21] MEDS ORDERED: ONDANSETRON 4 MG/2 ML VIAL ONE (18:49)
[2019-03-21] MEDS ORDERED: FAMOTIDINE 20 MG/2 ML VIAL IV ONE (18:49)
[2019-03-21] MEDS ORDERED: MORPHINE 2 MG/ML SYR ONE ×2 (18:49→19:58)
[2019-03-21] MEDS ORDERED: NA CHLORIDE 0.9% 1,000 ML ONE (18:50)
[2019-03-21] MEDS ORDERED: CIPROFLOXACIN 400mg IV 400 MG/200 ML BAG IV ONE (18:50)
[2019-03-21 18:56] LABS: Absolute Lymphocytes (CBC) 1.7 K/uL (0.7-4.9); Basophils % 0.8 % (0-1.3); Hematocrit 32.2 % (36.0-45.0); Lymphocytes % 27.5 % (15.3-44.8); MPV 8.1 fL (7.6-11.3); RBC Red Blood Cell Count 3.44 M/uL (3.86-4.86)
[2019-03-21 18:59] LABS: Protime INR 1.05
[2019-03-21 19:16] LABS: ALT/SGPT 37 U/L (12-78); AST/SGOT 31 U/L (15-37); Albumin 3.4 g/dL (3.4-5.0); Alkaline Phosphatase 146 U/L (45-117); BUN Blood Urea Nitrogen 23 mg/dL (7-18); Bicarbonate 23 mmol/L (21-32); Bilirubin Direct < 0.1 mg/dL (0-0.2); Bilirubin Total 0.3 mg/dL (0.2-1.0); Glucose Level 79 mg/dL (74-106); Lipase 234 U/L (73-393); Magnesium 2.1 mg/dL (1.8-2.4); NT PRO-BNP 2038 pg/mL (<125); Potassium 4.6 mmol/L (3.5-5.1); Sodium Level 142 mmol/L (136-145); Troponin (Emerg Dept Use Only) 0.06 ng/mL (0.0-0.045)
[2019-03-21] MEDS ORDERED: METRONIDAZOLE 500mg IVPB 500 MG/100 ML BAG IV ONE (19:18)
--- NOTE | 2019-03-21 19:53 | ER ---
Nurse's Notes [facility] Name: Macrina Mason Age: 73 yrs Sex: Female : 1945 Arrival Date: 03/21/2019 Time: 17:19 Bed 14 Private MD: Diagnosis: Abdominal tenderness;Urinary tract infection, site not specified;Unspecified kidney failure;Weakness;Obesity, unspecified Presentation: 03/21 17:37 Presenting complaint: Lower abdominal pain, low back pain, and burning with urination x hb 4 days. Transition of care: patient was not received from another setting of care. Onset of symptoms was March 18, 2019. Risk Assessment: Do you want to hurt yourself or someone else? Patient reports no desire to harm self or others. Initial Sepsis Screen: Does the patient meet any 2 criteria? No. Patient's initial sepsis screen is negative. Does the patient have a suspected source of infection? No. Patient's initial sepsis screen is negative. Care prior to arrival: None. 17:37 Method Of Arrival: Wheelchair hb 17:37 Acuity: [place] 3 hb Historical: - Allergies: 17:39 No Known Allergies; hb - Home Meds: 17:45 Amitiza 24 mcg Oral cap 1 cap 2 times per day [Active]; amitriptyline 25 mg Oral tab 1 rb1 tab 2 times per day [Active]; aspirin 325 mg Oral tab 1 tab once daily [Active]; atorvastatin 20 mg Oral tab 1 tab once daily [Active]; Bisacodyl Oral as needed [Active]; Breo Ellipta 200-25 mcg/dose inhalation dsdv 1 puff once daily [Active]; bupropion HCl 300 mg Oral Tb24 1 tab once daily [Active]; carbamazepine 200 mg Oral CM12 1 cap 2 times per day [Active]; carvedilol 6.25 mg Oral tab 1 tab 2 times per day [Active]; diclofenac sodium 75 mg Oral TbEC 1 tab 2 times per day [Active]; divalproex 500 mg Oral Tb24 1 tab once daily [Active]; donepezil 10 mg Oral tab 1 tab twice a day [Active]; duloxetine 60 mg Oral cpDR 1 cap once daily [Active]; fexofenadine 180 mg Oral tab 1 tab once daily [Active]; flaxseed oil 1,000 mg Oral cap daily [Active]; folic acid 800 mcg Oral tab 1 tab once daily [Active]; gabapentin 800 mg Oral tab 3 times per day [Active]; levothyroxine 200 mcg tab 1 tab once daily [Active]; lisinopril 2.5 mg Oral tab 1 tab twice a day [Active]; lorazepam 0.5 mg Oral tab 1 tab 2 times per day [Active]; memantine 10 mg Oral tab 1 tab 2 times per day [Active]; mirtazapine 30 mg Oral tab 1 tab once daily [Active]; oxybutynin chloride 5 mg Oral tr24 2 tabs once daily [Active]; promethazine 25 mg Oral tab 1 tab every 6 hours [Active]; topiramate 100 mg Oral CSpX 1 cap once daily [Active]; trazodone 50 mg Oral tab nightly [Active]; - PMHx: 17:45 allergies; Bipolar disorder; COPD; DVT; Schizophrenia; rb1 - PSHx: 17:45 eye surgery; both knee replacement; rb1 17:45 Hysterectomy; rb1 - Immunization history:: Adult Immunizations up to date. - Social history:: Smoking status: Patient/guardian denies using tobacco. - Ebola Screening: : No symptoms or risks identified at this time. - Family history:: not pertinent. Screenin:45 Abuse screen: Denies threats or abuse. Nutritional screening: No deficits noted. rb1 Tuberculosis screening: No symptoms or risk factors identified. Fall Risk None identified. Assessment: 17:45 General: Appears uncomfortable, Behavior is cooperative, anxious, Denies fever. Pain: rb1 Complains of pain in lower abdomen and lower back Pain currently is 10 out of 10 on a pain scale. Pain began 3-4 days ago. Neuro: Level of Consciousness is awake, alert, obeys commands, Oriented to person, place, situation. Cardiovascular: Capillary refill < 3 seconds is brisk in bilateral fingers. Respiratory: Airway is patent Respiratory effort is even, unlabored, Respiratory pattern is regular, symmetrical. GI: No signs and/or symptoms were reported involving the gastrointestinal system. : Reports pain with urination. Derm: Skin is pink, warm \T\ dry. 18:38 Reassessment: Patient appears in no apparent distress at this time. No changes from rb1 previously documented assessment. 19:20 Reassessment: Patient appears in no apparent distress at this time. Patient and/or aa1 family updated on plan of care and expected duration. Pain level reassessed. Patient is alert, oriented x 3, equal unlabored respirations, skin warm/dry/pink. Reassessment: Awaiting provider reassessment. notified pt c/o pain that was not resolved with morphine. : Reports burning with urination, pain in vaginal area. Musculoskeletal: Circulation, motion, and sensation intact. Capillary refill < 3 seconds. 20:10 Reassessment: Patient appears in no apparent distress at this time. Patient and/or aa1 family updated on plan of care and expected duration. Pain level reassessed. Patient is alert, oriented x 3, equal unlabored respirations, skin warm/dry/pink. Pt reports she urinated all over herself and now her pain is gone. Linens and gown changed at this time and pt taken to CT scan. 20:59 Reassessment: Patient appears in no apparent distress at this time. Patient and/or aa1 family updated on plan of care and expected duration. Pain level reassessed. Patient is alert, oriented x 3, equal unlabored respirations, skin warm/dry/pink. Report given to BENTON Souza on 4th floor. Vital Signs: 17:39 BP 154 / 89; Pulse 65; Resp 16; Temp 97.1; Pulse Ox 100% on R/A; Weight 107.05 kg; hb Height 5 ft. 10 in. (177.80 cm); Pain 10/10; 18:30 BP 168 / 88; Pulse 58; Resp 19; Pulse Ox 100% ; Pain 10/10; rb1 19:20 BP 117 / 78; Pulse 59; Resp 18; Pulse Ox 100% on R/A; Pain 8/10; aa1 20:42 BP 161 / 80; Pulse 61; Resp 18; Temp 97.4; Pulse Ox 100% on R/A; Pain 0/10; aa1 17:39 Body Mass Index 33.86 (107.05 kg, 177.80 cm) hb ED Course: 17:19 Patient arrived in ED. rg4 17:38 Triage completed. hb 17:39 Arm band placed on. hb 17:45 Patient has correct armband on for positive identification. Bed in low position. Call rb1 light in reach. Side rails up X 1. Pulse ox on. NIBP on. Warm blanket given. 17:50 Kameron Phipps MD is Attending Physician. joelle 18:11 Radiology exam delayed due to lab results not completed at this time. IV insertion vm2 attempt and/or patient not having appropriate IV at this time. 18:35 Catalina Edmonds, RN is Primary Nurse. rb1 18:44 XRAY Chest (1 view) In Process Unspecified. EDMS 19:50 Holland Gutierres DO is Hospitalizing Provider. joelle 20:25 Abdomen In Process Unspecified. EDMS 20:44 No provider procedures requiring assistance completed. Patient admitted, IV remains in aa1 place. 22g IV noted to R AC that was inserted by previous shift. Administered Medications: 18:45 Drug: NS 0.9% 1000 ml Route: IV; Rate: 125 ml/hr; Site: right antecubital; rb1 20:42 Follow up: IV Status: Infusion continued upon admission aa1 18:45 Drug: Pepcid 20 mg Route: IVP; Site: right antecubital; rb1 19:45 Follow up: Response: No adverse reaction aa1 18:45 Drug: morphine 2 mg Route: IVP; Site: right antecubital; rb1 18:45 Drug: Zofran 4 mg Route: IVP; Site: right antecubital; rb1 19:45 Follow up: Response: No adverse reaction aa1 18:50 Drug: Cipro 400 mg Volume: 200 ml; Route: IVPB; Infused Over: 60 mins; Site: right rb1 antecubital; 19:50 Follow up: IV Status: Completed infusion; IV Intake: 200ml aa1 19:20 Drug: Flagyl 500 mg Volume: 100 ml; Route: IVPB; Rate: 200 ml/hr; Infused Over: 30 aa1 mins; Site: right antecubital; 19:50 Follow up: IV Status: Completed infusion; IV Intake: 100ml aa1 20:00 Drug: morphine 2 mg Route: IVP; Site: right antecubital; aa1 21:00 Follow up: Response: No adverse reaction; Pain is decreased; RASS: Alert and Calm (0) aa1 20:00 Drug: Rocephin 1 grams Route: IV; Rate: per protocol; Site: right antecubital; aa1 20:05 Follow up: IV Status: Completed infusion; IV Intake: 10ml aa1 21:05 Not Given (Other Intervention Used): Ativan 1 mg IVP once aa1 21:06 Not Given (Other Intervention Used): Geodon 20 mg IM once aa1 21:06 Not Given (Other Intervention Used): Ativan 1 mg IVP once aa1 Intake: 19:50 IV: 100ml; Total: 100ml. aa1 19:50 IV: 200ml; Total: 300ml. aa1 20:05 IV: 10ml; Total: 310ml. aa1 Outcome: 19:52 Decision to Hospitalize by Provider. joelle 21:07 Admitted to Med/surg accompanied by tech, via wheelchair, room 404, with chart, Report aa1 called to BENTON Souza 21:07 Condition: stable 21:07 Discharge instructions given to patient, Instructed on the need for admit. 21:08 Patient left the ED. aa1 Signatures: Dispatcher [employer] EDMS Anisha Lafleur RN RN aa1 Kameron Phipps MD MD cha Barber, Rebecca RN RN rb1 Ivone Valdez RN RN hb Garcia, Rubi rg4 McGuire, Victoria [facility] Corrections: (The following items were deleted from the chart) 18:18 17:45 PSHx: Uterectomy; rb1 rb1
--- NOTE | 2019-03-21 19:54 | EDPHYS ---
Physician Documentation [facility] Name: Macrina Mason Age: 73 yrs Sex: Female : 1945 Arrival Date: 03/21/2019 Time: 17:19 Bed 14 Private MD: GEORGE Physician Kameron Phipps HPI: 03/21 18:06 This 73 yrs old Female presents to ER via Wheelchair with complaints of Low joelle Back Pain, Pain With Urination. 18:06 The patient presents with pain that is acute, with no known mechanism of injury. joelle 18:07 The symptoms are located in the low back. The pain does not radiate. The problem was joelle sustained from unknown cause. Modifying factors: The patient symptoms are alleviated by nothing, the patient symptoms are aggravated by any movement, movement. The patient presents with abdominal pain in the lower abdomen, abdominal distention in the upper abdomen, in the lower abdomen. Onset: The symptoms/episode began/occurred 3 day(s) ago. Severity of symptoms: At their worst the symptoms were moderate. Historical: - Allergies: 17:39 No Known Allergies; hb - Home Meds: 17:45 Amitiza 24 mcg Oral cap 1 cap 2 times per day [Active]; amitriptyline 25 mg Oral tab 1 rb1 tab 2 times per day [Active]; aspirin 325 mg Oral tab 1 tab once daily [Active]; atorvastatin 20 mg Oral tab 1 tab once daily [Active]; Bisacodyl Oral as needed [Active]; Breo Ellipta 200-25 mcg/dose inhalation dsdv 1 puff once daily [Active]; bupropion HCl 300 mg Oral Tb24 1 tab once daily [Active]; carbamazepine 200 mg Oral CM12 1 cap 2 times per day [Active]; carvedilol 6.25 mg Oral tab 1 tab 2 times per day [Active]; diclofenac sodium 75 mg Oral TbEC 1 tab 2 times per day [Active]; divalproex 500 mg Oral Tb24 1 tab once daily [Active]; donepezil 10 mg Oral tab 1 tab twice a day [Active]; duloxetine 60 mg Oral cpDR 1 cap once daily [Active]; fexofenadine 180 mg Oral tab 1 tab once daily [Active]; flaxseed oil 1,000 mg Oral cap daily [Active]; folic acid 800 mcg Oral tab 1 tab once daily [Active]; gabapentin 800 mg Oral tab 3 times per day [Active]; levothyroxine 200 mcg tab 1 tab once daily [Active]; lisinopril 2.5 mg Oral tab 1 tab twice a day [Active]; lorazepam 0.5 mg Oral tab 1 tab 2 times per day [Active]; memantine 10 mg Oral tab 1 tab 2 times per day [Active]; mirtazapine 30 mg Oral tab 1 tab once daily [Active]; oxybutynin chloride 5 mg Oral tr24 2 tabs once daily [Active]; promethazine 25 mg Oral tab 1 tab every 6 hours [Active]; topiramate 100 mg Oral CSpX 1 cap once daily [Active]; trazodone 50 mg Oral tab nightly [Active]; - PMHx: 17:45 allergies; Bipolar disorder; COPD; DVT; Schizophrenia; rb1 - PSHx: 17:45 eye surgery; both knee replacement; rb1 17:45 Hysterectomy; rb1 - Immunization history:: Adult Immunizations up to date. - Social history:: Smoking status: Patient/guardian denies using tobacco. - Ebola Screening: : No symptoms or risks identified at this time. - Family history:: not pertinent. ROS: 18:07 Constitutional: Negative for fever, chills, and weight loss, Eyes: Negative for injury, joelle pain, redness, and discharge, ENT: Negative for injury, pain, and discharge, Neck: Negative for injury, pain, and swelling, Cardiovascular: Negative for chest pain, palpitations, and edema, Respiratory: Negative for shortness of breath, cough, wheezing, and pleuritic chest pain, Back: Negative for injury and pain, : Negative for injury, bleeding, discharge, and swelling, MS/Extremity: Negative for injury and deformity, Neuro: Negative for headache, weakness, numbness, tingling, and seizure, Psych: Negative for depression, anxiety, suicide ideation, homicidal ideation, and hallucinations, Allergy/Immunology: Negative for hives, rash, and allergies, Endocrine: Negative for neck swelling, polydipsia, polyuria, polyphagia, and marked weight changes, Hematologic/Lymphatic: Negative for swollen nodes, abnormal bleeding, and unusual bruising. 18:07 Abdomen/GI: Positive for abdominal pain, diarrhea, abdominal cramps, of the right lower quadrant and left lower quadrant. Exam: 18:07 Constitutional: This is a well developed, well nourished patient who is awake, alert, joelle and in no acute distress. Head/Face: Normocephalic, atraumatic. Eyes: Pupils equal round and reactive to light, extra-ocular motions intact. Lids and lashes normal. Conjunctiva and sclera are non-icteric and not injected. Cornea within normal limits. Periorbital areas with no swelling, redness, or edema. ENT: Nares patent. No nasal discharge, no septal abnormalities noted. Tympanic membranes are normal and external auditory canals are clear. Oropharynx with no redness, swelling, or masses, exudates, or evidence of obstruction, uvula midline. Mucous membranes moist. Neck: Trachea midline, no thyromegaly or masses palpated, and no cervical lymphadenopathy. Supple, full range of motion without nuchal rigidity, or vertebral point tenderness. No Meningismus. Chest/axilla: Normal chest wall appearance and motion. Nontender with no deformity. No lesions are appreciated. Cardiovascular: Regular rate and rhythm with a normal S1 and S2. No gallops, murmurs, or rubs. Normal PMI, no JVD. No pulse deficits. Respiratory: Lungs have equal breath sounds bilaterally, clear to auscultation and percussion. No rales, rhonchi or wheezes noted. No increased work of breathing, no retractions or nasal flaring. Back: No spinal tenderness. No costovertebral tenderness. Full range of motion. MS/ Extremity: Pulses equal, no cyanosis. Neurovascular intact. Full, normal range of motion. Neuro: Awake and alert, GCS 15, oriented to person, place, time, and situation. Cranial nerves II-XII grossly intact. Motor strength 5/5 in all extremities. Sensory grossly intact. Cerebellar exam normal. Normal gait. Psych: Awake, alert, with orientation to person, place and time. Behavior, mood, and affect are within normal limits. 18:07 Abdomen/GI: Inspection: distension, Bowel sounds: normal, Palpation: moderate abdominal tenderness, in the right lower quadrant and left lower quadrant, Liver: no appreciated palpable abnormalities, Hernia: not appreciated. Vital Signs: 17:39 BP 154 / 89; Pulse 65; Resp 16; Temp 97.1; Pulse Ox 100% on R/A; Weight 107.05 kg; hb Height 5 ft. 10 in. (177.80 cm); Pain 10/10; 18:30 BP 168 / 88; Pulse 58; Resp 19; Pulse Ox 100% ; Pain 10/10; rb1 19:20 BP 117 / 78; Pulse 59; Resp 18; Pulse Ox 100% on R/A; Pain 8/10; aa1 20:42 BP 161 / 80; Pulse 61; Resp 18; Temp 97.4; Pulse Ox 100% on R/A; Pain 0/10; aa1 17:39 Body Mass Index 33.86 (107.05 kg, 177.80 cm) hb MDM: 17:50 Patient medically screened. [facility] 18:09 Data reviewed: vital signs, nurses notes, lab test result(s), EKG, radiologic studies, [facility] CT scan, plain films. 03/21 17:40 Order name: Urine Microscopic Only; Complete Time: 21:06 kb 03/21 18:06 Order name: Basic Metabolic Panel; Complete Time: 19:21 [facility] 03/21 18:06 Order name: CBC with Diff; Complete Time: 19:41 [facility] 03/21 18:06 Order name: LFT's; Complete Time: 19:21 [facility] 03/21 18:06 Order name: Magnesium; Complete Time: 19:21 [facility] 03/21 18:06 Order name: NT PRO-BNP; Complete Time: 19:21 [facility] 03/21 18:06 Order name: PT-INR; Complete Time: 19:21 [facility] 03/21 18:06 Order name: Troponin (emerg Dept Use Only); Complete Time: 19:21 [facility] 03/21 18:06 Order name: Lipase; Complete Time: 19:21 [facility] 03/21 18:06 Order name: Type And Screen; Complete Time: 21:06 [facility] 03/21 18:06 Order name: Urine Culture [facility] 03/21 18:55 Order name: Urine Dipstick--Ancillary (enter results); Complete Time: 21:06 03/21 19:53 Order name: Valproic Acid (depakote) [facility] 03/21 19:53 Order name: Tegretol Level [facility] 03/21 17:40 Order name: Urine Dipstick-Ancillary (obtain specimen); Complete Time: 19:20 kb 03/21 18:06 Order name: XRAY Chest (1 view); Complete Time: 21:06 [facility] 03/21 18:06 Order name: EKG; Complete Time: 18:09 [facility] 03/21 18:06 Order name: Cardiac monitoring; Complete Time: 19:04 [facility] 03/21 20:02 Order name: Abdomen ; Complete Time: 21:06 EDMS 03/21 18:06 Order name: EKG - Nurse/Tech; Complete Time: 19:04 [facility] 03/21 18:06 Order name: IV Saline Lock; Complete Time: 19:04 [facility] 03/21 18:06 Order name: Labs collected and sent; Complete Time: 19:04 [facility] 03/21 18:06 Order name: O2 Per Protocol; Complete Time: 19:04 [facility] 03/21 18:06 Order name: O2 Sat Monitoring; Complete Time: 19:04 [facility] Administered Medications: 18:45 Drug: NS 0.9% 1000 ml Route: IV; Rate: 125 ml/hr; Site: right antecubital; rb1 20:42 Follow up: IV Status: Infusion continued upon admission aa1 18:45 Drug: Pepcid 20 mg Route: IVP; Site: right antecubital; rb1 19:45 Follow up: Response: No adverse reaction aa1 18:45 Drug: morphine 2 mg Route: IVP; Site: right antecubital; rb1 18:45 Drug: Zofran 4 mg Route: IVP; Site: right antecubital; rb1 19:45 Follow up: Response: No adverse reaction aa1 18:50 Drug: Cipro 400 mg Volume: 200 ml; Route: IVPB; Infused Over: 60 mins; Site: right rb1 antecubital; 19:50 Follow up: IV Status: Completed infusion; IV Intake: 200ml aa1 19:20 Drug: Flagyl 500 mg Volume: 100 ml; Route: IVPB; Rate: 200 ml/hr; Infused Over: 30 aa1 mins; Site: right antecubital; 19:50 Follow up: IV Status: Completed infusion; IV Intake: 100ml aa1 20:00 Drug: morphine 2 mg Route: IVP; Site: right antecubital; aa1 21:00 Follow up: Response: No adverse reaction; Pain is decreased; RASS: Alert and Calm (0) aa1 20:00 Drug: Rocephin 1 grams Route: IV; Rate: per protocol; Site: right antecubital; aa1 20:05 Follow up: IV Status: Completed infusion; IV Intake: 10ml aa1 21:05 Not Given (Other Intervention Used): Ativan 1 mg IVP once aa1 21:06 Not Given (Other Intervention Used): Geodon 20 mg IM once aa1 21:06 Not Given (Other Intervention Used): Ativan 1 mg IVP once aa1 Disposition: 03/21/19 19:52 Hospitalization ordered by Holland Gutierres for Inpatient Admission. Preliminary diagnosis are Abdominal tenderness, Urinary tract infection, site not specified, Unspecified kidney failure, Weakness, Obesity, unspecified. - Bed requested for Telemetry/MedSurg (Inpatient). - Status is Inpatient Admission. aa1 - Condition is Fair. - Problem is new. - Symptoms have improved. UTI on Admission? Yes Signatures: Dispatcher [employer] [facility] Mary Gage FNP-C [employer]-Shayy Estrella RN RN Anisha Lafleur RN RN aa Kameron Phipps MD MD cha Barber, Rebecca RN RN [facility] Ivone Valdez RN RN Corrections: (The following items were deleted from the chart) 18:18 17:45 PSHx: Uterectomy; rb1 rb1 20:01 18:09 Abdomen Pelvis W Con+CT.RAD.BRZ ordered. [facility] 20:32 19:52 Hospitalization Ordered by Holland Gutierres DO for Inpatient Admission. Preliminary diagnosis is Abdominal tenderness; Urinary tract infection, site not specified; Unspecified kidney failure; Weakness; Obesity, unspecified. Bed requested for Telemetry/MedSurg (Inpatient). Status is Inpatient Admission. Condition is Fair. Problem is new. Symptoms have improved. UTI on Admission? Yes. [facility] 21:03 20:32 03/21/2019 19:52 Hospitalization Ordered by Holland Gutierres DO for Inpatient mw Admission. Preliminary diagnosis is Abdominal tenderness; Urinary tract infection, site not specified; Unspecified kidney failure; Weakness; Obesity, unspecified. Bed requested for Telemetry/MedSurg (Inpatient). Status is Inpatient Admission. Condition is Fair. Problem is new. Symptoms have improved. UTI on Admission? Yes. 21:08 21:03 03/21/2019 19:52 Hospitalization Ordered by Holland Gutierres DO for Inpatient aa1 Admission. Preliminary diagnosis is Abdominal tenderness; Urinary tract infection, site not specified; Unspecified kidney failure; Weakness; Obesity, unspecified. Bed requested for Telemetry/MedSurg (Inpatient). Status is Inpatient Admission. Condition is Fair. Problem is new. Symptoms have improved. UTI on Admission? Yes. mw
[2019-03-21] MEDS ORDERED: CEFTRIAXONE/SWI 1gm 1 GM/10 ML SYR ONE (19:58)
[2019-03-21 20:00] LABS: Urine Bacteria 20-50 /HPF (<20); Urine Culture Reflex Order REFLEXED; Urine RBC <5 /HPF (NONE SEEN)
[2019-03-21] MEDS ORDERED: WATER FOR INJ,STERILE 10 ML ONE (20:15)
[2019-03-21] MEDS ORDERED: LORazepam 2 MG/ML VIAL ONE (20:15)
[2019-03-21] MEDS ORDERED: ZIPRASIDONE MESYLA 20 MG/VIAL IM ONE (20:15)
--- NOTE | 2019-03-21 20:35 | P.HP ---
Certification for Inpatient Patient admitted to: Inpatient With expected LOS: >2 Midnights Patient will require the following post-hospital care: Home Health Services Practitioner: I am a practitioner with admitting privileges, knowledge of patient current condition, hospital course, and medical plan of care. Services: Services provided to patient in accordance with Admission requirements found in Title 42 Section 412.3 of the Code of Federal Regulations Patient History Date of Service: 03/21/19 Primary Care Provider: Dr. Alegre Reason for admission: Urinary pain History of Present Illness: 73-year-old female presented to the emergency room with urinary pain. Patient with multiple medical problems including bipolar disorder, schizophrenia , chronic renal disease stage III, hypertension, hyperlipidemia, dementia, and chronic pain. Patient reported increasing pain with urination over the last several days. She reports some pain to the lower abdominal pelvic region. She is not sure whether this is related to the pain with urination. Patient with history of ESBL treated with meropenem last year in March. No mention of fever. Denies shortness of breath, chest pain. Patient came into the ER for further evaluation In the ER patient seems to have pain out of proportion. Patient with history of chronic pain. In the ER urinalysis was positive for bacteria. White count 6.3, hemoglobin 10.9. Sodium 142, potassium 4.6. BUN of 23, creatinine 1.52 with a GFR of 34. Glucose 79. AST, ALT within normal range. Lactic acid and pro calcitonin pending at this time. CT of the abdomen and pelvis pending at this time. Troponin 0.06. BNP 2088. Lipase unremarkable. Patient admitted for further evaluation and treatment. When I saw the patient in the ER, pain seems to be out of proportion. There were times during her examination and history when she had no pain. Patient with history of bipolar disorder and schizophrenia. Patient lives at home. Allergies No Known Allergies Allergy (Verified 03/15/18 23:47) Home medications list reviewed: Yes Home Medications: Acetam/Caff/Butal [Fioricet*] 1 tab PO Q8H PRN 03/16/18 Amitriptyline HCl 25 mg PO BID 03/16/18 Atorvastatin Calcium [Lipitor*] 20 mg PO DAILY 03/16/18 Budesonide/Formoterol Fumarate [Symbicort 80-4.5 Mcg Inhaler] 2 puff IH BID 06/21 Bupropion HCl [Bupropion Xl] 300 mg PO DAILY 03/16/18 Carbamazepine [Tegretol*] 200 mg PO BEDTIME 03/16/18 Diclofenac Na [Voltaren D.r*] 75 mg PO BID 03/16/18 Divalproex Sodium [Depakote ER] 500 mg PO DAILY 03/16/18 Donepezil HCl 10 mg PO BID 03/16/18 Duloxetine HCl 60 mg PO DAILY 03/16/18 Gabapentin [Gralise] 800 mg PO TID 03/16/18 Hydrocodone 10/APAP 325 [[place]ague 10/325*] 1 tab PO BID 03/16/18 LORazepam [Ativan*] 0.5 mg PO TID 03/16/18 Levothyroxine Sodium [Synthroid] 200 mcg PO DAILY 03/16/18 Lubiprostone [Amitiza*] 25 mcg PO BID 03/16/18 Memantine HCl [Namenda*] 10 mg PO BEDTIME 03/16/18 Mirtazapine [Remeron] 30 mg PO DAILY 03/16/18 Tolterodine Tartrate [Detrol] 2 mg PO BID 03/16/18 Topiramate [Topamax*] 100 mg PO BID 03/16/18 Trazodone [Desyrel*] 50 mg PO DAILY 03/16/18 Vit C/Karla AC/Lut/Copper/Znox [Preservision Lutein Softgel] 1 each PO DAILY 06/21 Aspirin [Aspirin EC 81 MG] 81 mg PO DAILY #30 tablet. 03/21/18 Carvedilol [Coreg] 6.25 mg PO BID #60 tab 03/21/18 Docusate [Colace Cap*] 100 mg PO BID PRN cap 03/21/18 Meropenem [Merrem 500 MG/100 ML NS IVPB] 500 mg IV Q12HR #1 bag 03/21/18 Triamcinolone 0.1% Oint [Kenalog 0.1% Ointment*] 1 appl TOP BID tube 03/21/18 - Past Medical/Surgical History Diabetic: No -: Bipolar disorder -: Schizophrenia -: COPD -: History of DVT -: Hypertension -: Hypothyroidism -: Hyperlipidemia -: Dementia -: Chronic pain with neuropathy -: Complete hysterectomy Psychosocial/ Personal History: Patient lives at home. - Family History Mother -: Lung disease, Diabetes Notes: COPD Father -: Heart disease Notes: quadruple bypass - Social History Smoking Status: Unknown if ever smoked Alcohol use: No CD- Drugs: No Caffeine use: No Place of Residence: Home Review of Systems General: As per HPI Eyes: Unremarkable ENT: Unremarkable Respiratory: Unremarkable Cardiovascular: Unremarkable Gastrointestinal: Abdominal Pain, As per HPI Genitourinary: Dysuria, Frequency, As per HPI Musculoskeletal: Unremarkable Integumentary: Unremarkable Neurological: As per HPI Lymphatics: Unremarkable Physical Examination - Physical Exam General: Alert, In no apparent distress, Oriented x3, Other (Increased anxiety noted. At times patient without distress.) HEENT: Atraumatic, Normocephalic, Mucous membr. moist/pink Neck: Supple, No Thyromegaly Respiratory: Clear to auscultation bilaterally, Normal air movement Cardiovascular: Normal pulses, Regular rate/rhythm Gastrointestinal: Normal bowel sounds, Soft and benign, Non-distended, Tenderness (Pain out of proportion to the lower pelvic region. No evidence of rash or inflammation to the vaginal region.) Musculoskeletal: No erythema, No tenderness, No warmth Integumentary: No tenderness/swelling, No erythema, No warmth, No cyanosis Neurological: Normal speech, Normal strength at 5/5 x4 extr, Normal tone, Abnormal affect (Increase anxiety. Patient with history of bipolar disorder and schizophrenia.) - Studies Laboratory Data (last 24 hrs) 03/21/19 18:42: PT 12.4, INR 1.05 03/21/19 18:42: WBC 6.3, Hgb 10.9 L, Hct 32.2 L, Plt Count 201 03/21/19 18:42: Sodium 142, Potassium 4.6, BUN 23 H, Creatinine 1.52 H, Glucose 79, Magnesium 2.1, Total Bilirubin 0.3, AST 31, ALT 37, Alkaline Phosphatase 146 H, Lipase 234 Assessment and Plan - Plan Impression: Lower abdominal pain with dysuria secondary to recurrent UTI with history of ESBL Chronic renal disease stage III Bipolar disorder Schizophrenia COPD Hypertension Chronic pain with neuropathy Hyperlipidemia Dementia Plan: Lower abdominal pain with dysuria secondary to recurrent UTI with history of ESBL: Patient will be admitted for further evaluation and treatment. Patient with history of ESBL last year in March. Patient reports history of recurrent UTI. Will start meropenem IV 1 g twice daily. Cath urine culture and blood cultures obtained. Await final results. If abnormal and positive for ESBL, patient will likely require placement for IV antibiotic treatment. Pain seems to be out of proportion. Will order CT scan of the abdomen and pelvis to further evaluate. Will check pro calcitonin and lactic acid. Will start IV fluids. Will provide DVT prophylaxis-Lovenox. Daytime hospitalist will continue her care. Likely discharge in the next 2-4 days pending clinical improvement and final analysis of urine culture. Chronic renal disease stage III: Continue IV fluids. Encourage oral intake. Bipolar disorder: Restart home meds including Buproprion XL 300 mg daily. Will provide Ativan as needed for agitation. Schizophrenia: Restart home medication of carbamazepine 200 mg 1 pill twice daily, divalproex 500 mg daily. Will obtain and verify home medication. COPD: Will provide COPD medication. Maintain sats above 94%. Hypertension: Restart carvedilol 6.25 mg 1 pill twice daily. Will verify lisinopril dosage before restarting. Continue to monitor and adjust appropriately. Chronic pain with neuropathy: Will provide medication for pain-tramadol and hydrocodone. Patient already takes Elavil 25 mg at bedtime, gabapentin 100 mg 3 times a day. Pain seems to be out of proportion. Will try to limit IV pain medication. Hyperlipidemia: Continue Lipitor 20 mg daily. Dementia: Continue home medication-Aricept 10 mg daily and Namenda 10 mg 1 pill twice daily. Will provide Ativan as needed for agitation. Discharge Plan: Home Plan to discharge in: Greater than 2 days - Advance Directives Does patient have a Living Will: No Does patient have a Durable POA for Healthcare: No - Code Status/Comfort Care Code Status Assessed: Yes (Patient is full code) Time Spent Managing Pts Care (In Minutes): 55
[2019-03-21 20:39] LABS: Urine Blood 2+ (NEG); Urine Glucose NEGATIVE (NEG); Urine Protein NEGATIVE (NEG); Urine Specific Gravity <1.005 (1.005-1.030); Urine pH 5.5 (5.0-7.0)
--- NOTE | 2019-03-21 20:43 | RAD REPORT ---
EXAM DESCRIPTION: CT - Abdomen Pelvis Wo Contrast - 03/21/2019 8:24 pm CLINICAL HISTORY: Abdominal pain COMPARISON: January 2019 TECHNIQUE: Computed axial tomography of the abdomen and pelvis was obtained. IV was not requested. O ral contrast was given. Coronal reconstructions performed. All CT scans are performed using dose optimization technique as appropriate and may include automated exposure control or mA/KV adjustment according to patient size. FINDINGS: The evaluation of solid organs and vessels is limited secondary to the lack of contrast a dministration. The liver, spleen, pancreas, and adrenals appear grossly normal. Extrarenal pelves. A couple of air bubbles within the bladder. Hysterectomy No evidence of diverticulitis. Spondylosis involving the lumbar spine resulting in spinal stenosis Filter within the inferior vena cava Borderline gallbladder distention IMPRESSION: A couple of air bubbles within the bladder may be secondary to recent instrumentation. Infection can also result in this appearance. Borderline gallbladder distention
--- NOTE | 2019-03-21 20:44 | RAD REPORT ---
EXAM DESCRIPTION: Zack Single View03/21/2019 6:40 pm CLINICAL HISTORY: Abd pain COMPARISON: January 2019 FINDINGS: The lungs appear clear of acute infiltrate. The heart is normal size IMPRESSION: No acute abnormalities displayed
[2019-03-21] MEDS ORDERED: ALBUTEROL 2.5 MG/3 ML NEB SOL NEB PRN (22:10)
[2019-03-21] MEDS ORDERED: IPRATROPIUM BROM 0.5MG/2.5ML NEB PRN (22:10)
[2019-03-21] MEDS ORDERED: LORazepam 2 MG/ML VIAL IV PRN (22:10)
[2019-03-21] MEDS ORDERED: Meropenem 1000 MG/VIAL IV SCH (22:10)
[2019-03-21] MEDS ORDERED: ACETAMINOPHEN 500 MG TAB PO PRN (22:10)
[2019-03-21] MEDS: NA CHLORIDE 0.9% 1,000 ML IV SCH (22:10)
[2019-03-21] MEDS ORDERED: ENOXAPARIN 40 MG/0.4 ML SQ SCH (23:00)
[2019-03-21] MEDS: ATORVASTATIN 20 MG TAB PO SCH (23:03)
[2019-03-21] MEDS: GABAPENTIN 400 MG CAP PO SCH (23:03)
[2019-03-21] MEDS: AMITRIPTYLINE 25 MG TAB PO SCH (23:03)
[2019-03-21] MEDS: DONEPEZIL HCL 5 MG TAB PO SCH (23:03)
[2019-03-21] MEDS: carBAMazepine 200 MG TAB PO SCH (23:03)
[2019-03-21] MEDS: MEMANTINE HCL 10 MG TABLET PO SCH (23:04)
[2019-03-21] MEDS: DIVALPROEX ER 250 MG TAB PO SCH (23:04)
[2019-03-21] MEDS: DULOXETINE 30 MG CAP PO SCH (23:04)
[2019-03-21] MEDS: CARVEDILOL 6.25 MG TAB PO SCH (23:05)
[2019-03-21] MEDS ORDERED: Meropenem 1 GM/100 ML BAG ONE (23:27)
[2019-03-21] MEDS: HYDROCODONE/APAP 7.5/325 MG TAB PO PRN (23:45)
[2019-03-22 02:40] VITALS: BMI 33.8
[2019-03-22] MEDS ORDERED: ENOXAPARIN 40 MG/0.4 ML SQ SCH ×2 (03:00→21:00)
[2019-03-22 04:44] LABS: Absolute Lymphocytes (CBC) 1.9 K/uL (0.7-4.9); Basophils % 0.6 % (0-1.3); Hematocrit 29.2 % (36.0-45.0); Lymphocytes % 34.5 % (15.3-44.8); MPV 8.8 fL (7.6-11.3); RBC Red Blood Cell Count 3.13 M/uL (3.86-4.86)
[2019-03-22 05:06] LABS: Potassium 4.7 mmol/L (3.5-5.1)
[2019-03-22 05:33] LABS: Thyroid Stimulating Hormone 9.07 uIU/mL (0.360-3.740)
[2019-03-22] MEDS: LEVOTHYROXINE SOD 0.1 MG TAB PO SCH (05:33)
[2019-03-22] MEDS: HYDROCODONE/APAP 7.5/325 MG TAB PO PRN ×2 (05:33→16:38)
[2019-03-22] MEDS: NA CHLORIDE 0.9% 1,000 ML IV SCH (05:34)
[2019-03-22 06:05] LABS: Urine Appearance CLOUDY; Urine Bilirubin NEGATIVE (NEG); Urine Blood TRACE (NEG); Urine Color YELLOW; Urine Glucose NEGATIVE (NEG); Urine Protein TRACE (NEG); Urine Specific Gravity 1.015 (1.005-1.030); Urine Urobilinogen 0.2 mg/dL (0.2-1.0)
[2019-03-22 06:10] LABS: Urine Microscopic Reflex ORDER UMIC
[2019-03-22 06:14] LABS: Urine Amorphous Sediment 1+ /HPF (NONE SEEN); Urine Bacteria <20 /HPF (<20); Urine Culture Reflex Order NOT NEEDED; Urine RBC <5 /HPF (NONE SEEN)
[2019-03-22] MEDS: ARFORMOTEROL TARTRATE 15 MCG/2 ML VIAL.NEB NEB SCH ×2 (08:47→20:00)
[2019-03-22] MEDS: Meropenem 1,000 MG in NA CHLORIDE 0.9% 100 ML IV SCH ×2 (08:50→20:07)
[2019-03-22] MEDS: BUPROPION HCL XL 150 MG TAB PO SCH (08:51)
[2019-03-22] MEDS: GABAPENTIN 400 MG CAP PO SCH ×3 (08:51→20:08)
[2019-03-22] MEDS: MEMANTINE HCL 10 MG TABLET PO SCH ×2 (08:51→20:08)
[2019-03-22] MEDS: CARVEDILOL 6.25 MG TAB PO SCH ×2 (08:51→20:10)
[2019-03-22] MEDS: ASPIRIN EC 81 MG TAB PO SCH (08:51)
[2019-03-22] MEDS: carBAMazepine 200 MG TAB PO SCH ×2 (08:51→20:08)
[2019-03-22] MEDS: TRAMADOL HCL 50 MG TAB PO PRN ×2 (09:01→20:09)
[2019-03-22] MEDS: ONDANSETRON 4 MG/2 ML VIAL IV PRN (09:01)
--- NOTE | 2019-03-22 11:30 | EKG ---
Test Date: 2019-03-21 Test Time: 23:08:44 Supervisor Refractory Products: RT-O MEASUREMENT RESULTS: Intervals: Rate: 57 [place]: 178 QRSD: 106 QT: 470 QTc: 457 [place]: P: 20 [place]: 178 QRS: -27 T: 10 INTERPRETIVE STATEMENTS: Sinus bradycardia with premature atrial complexes Minimal voltage criteria for LVH, may be normal variant Cannot rule out Anterior infarct, age undetermined Abnormal ECG Compared to ECG 01/20/2019 12:35:12 Atrial premature complex(es) now present Left ventricular hypertrophy now present Sinus rhythm no longer present Left-axis deviation no longer present Myocardial infarct finding still present Electronically Signed On 03-22-19 11:29:42 CDT by Cuba Sotelo
--- NOTE | 2019-03-22 14:02 | P.PN ---
Subjective Date of Service: 03/22/19 Primary Care Provider: Dr. Alegre Chief Complaint: Urinary pain Subjective: No C/O voiced, Tolerating diet, Improving, Doing well, Other (No fever over night) Review of Systems 10-point ROS is otherwise unremarkable Physical Examination - Vital Signs Temperature: 97.4 F Blood Pressure: 114/55 Pulse: 56 Respirations: 16 Pulse Ox (%): 99 - Physical Exam General: Alert, In no apparent distress HEENT: Atraumatic, PERRLA, EOMI Neck: Supple, JVD not distended Respiratory: Clear to auscultation bilaterally, Normal air movement Cardiovascular: Regular rate/rhythm, Normal S1 S2 Gastrointestinal: Normal bowel sounds, No tenderness Musculoskeletal: No tenderness Integumentary: No rashes Neurological: Normal speech, Normal tone, Normal affect Lymphatics: No axilla or inguinal lymphadenopathy - Studies Laboratory Data (last 24 hrs) 03/21/19 18:42: PT 12.4, INR 1.05 03/21/19 18:42: WBC 6.3, Hgb 10.9 L, Hct 32.2 L, Plt Count 201 03/21/19 18:42: Sodium 142, Potassium 4.6, BUN 23 H, Creatinine 1.52 H, Glucose 79, Magnesium 2.1, Total Bilirubin 0.3, AST 31, ALT 37, Alkaline Phosphatase 146 H, Lipase 234 Medications List Reviewed: Yes Assessment And Plan - Current Problems (Diagnosis) (1) UTI (urinary tract infection) Onset Date: 03/16/18 Current Visit: No Status: Acute Plan: Ua with with UTI -Past h/o of ESBL -Started on Merrem -Will continue till urine culture and blood culture back Qualifiers: Urinary tract infection type: acute cystitis Hematuria presence: without hematuria Qualified Code(s): N30.00 - Acute cystitis without hematuria (2) Bipolar disorder Onset Date: 03/16/18 Current Visit: No Status: Chronic Qualifiers: Active/Remission status: remission status unspecified Qualified Code(s): F31.9 - Bipolar disorder, unspecified (3) Dementia Onset Date: 10/22/14 Current Visit: No Status: Chronic Qualifiers: Dementia type: unspecified type Dementia behavioral disturbance: without behavioral disturbance Qualified Code(s): F03.90 - Unspecified dementia without behavioral disturbance (4) Hypothyroidism Onset Date: 10/22/14 Current Visit: No Status: Acute (5) Chronic pain Current Visit: Yes Status: Chronic Qualifiers: Chronic pain type: chronic pain syndrome Qualified Code(s): G89.4 - Chronic pain syndrome Discharge Plan: Home Plan to discharge in: Greater than 2 days - Code Status/Comfort Care Code Status Assessed: Yes Critical Care: No
[2019-03-22] MEDS: DIVALPROEX ER 250 MG TAB PO SCH (20:07)
[2019-03-22] MEDS: DULOXETINE 30 MG CAP PO SCH (20:08)
[2019-03-22] MEDS: AMITRIPTYLINE 25 MG TAB PO SCH (20:08)
[2019-03-22] MEDS: ATORVASTATIN 20 MG TAB PO SCH (20:08)
[2019-03-22] MEDS: DONEPEZIL HCL 5 MG TAB PO SCH (20:08)
[2019-03-23] MEDS: HYDROCODONE/APAP 7.5/325 MG TAB PO PRN (00:44)
[2019-03-23 04:55] LABS: Absolute Lymphocytes (CBC) 0.5 K/uL (0.7-4.9); Basophils % 0.2 % (0-1.3); Hematocrit 30.7 % (36.0-45.0); Lymphocytes % 8.4 % (15.3-44.8); MPV 8.7 fL (7.6-11.3); RBC Red Blood Cell Count 3.28 M/uL (3.86-4.86)
[2019-03-23] MEDS: LEVOTHYROXINE SOD 0.1 MG TAB PO SCH (05:39)
[2019-03-23] MEDS: ONDANSETRON 4 MG/2 ML VIAL IV PRN (06:35)
[2019-03-23] MEDS: ARFORMOTEROL TARTRATE 15 MCG/2 ML VIAL.NEB NEB SCH (08:14)
[2019-03-23] MEDS: Meropenem 1,000 MG in NA CHLORIDE 0.9% 100 ML IV SCH (09:04)
[2019-03-23] MEDS: CARVEDILOL 6.25 MG TAB PO SCH (09:05)
[2019-03-23] MEDS: ASPIRIN EC 81 MG TAB PO SCH (09:05)
[2019-03-23] MEDS: GABAPENTIN 400 MG CAP PO SCH ×2 (09:05→13:37)
[2019-03-23] MEDS: carBAMazepine 200 MG TAB PO SCH (09:05)
[2019-03-23] MEDS: MEMANTINE HCL 10 MG TABLET PO SCH (09:06)
[2019-03-23] MEDS: BUPROPION HCL XL 150 MG TAB PO SCH (09:06)
[2019-03-23 09:27] VITALS: O2SAT 93
--- NOTE | 2019-03-23 14:50 | P.DS ---
Admission Date: 03/21/19 Discharge Date: 03/23/19 Primary Care Provider: Dr. Alegre Disposition: ROUTINE DISCHARGE Discharge Condition: GOOD Reason for Admission: Urinary pain - Problems (1) UTI (urinary tract infection) Onset Date: 03/16/18 Current Visit: No Status: Acute Qualifiers: Urinary tract infection type: acute cystitis Hematuria presence: without hematuria Qualified Code(s): N30.00 - Acute cystitis without hematuria (2) Bipolar disorder Onset Date: 03/16/18 Current Visit: No Status: Chronic Qualifiers: Active/Remission status: remission status unspecified Qualified Code(s): F31.9 - Bipolar disorder, unspecified (3) Dementia Onset Date: 10/22/14 Current Visit: No Status: Chronic Qualifiers: Dementia type: unspecified type Dementia behavioral disturbance: without behavioral disturbance Qualified Code(s): F03.90 - Unspecified dementia without behavioral disturbance (4) Hypothyroidism Onset Date: 10/22/14 Current Visit: No Status: Acute (5) Chronic pain Current Visit: Yes Status: Chronic Qualifiers: Chronic pain type: chronic pain syndrome Qualified Code(s): G89.4 - Chronic pain syndrome Brief History of Present Illness: 73-year-old female presented to the emergency room with urinary pain. Patient with multiple medical problems including bipolar disorder, schizophrenia , chronic renal disease stage III, hypertension, hyperlipidemia, dementia, and chronic pain. Patient reported increasing pain with urination over the last several days. She reports some pain to the lower abdominal pelvic region. She is not sure whether this is related to the pain with urination. Patient with history of ESBL treated with meropenem last year in March. No mention of fever. Denies shortness of breath, chest pain. Patient came into the ER for further evaluation In the ER patient seems to have pain out of proportion. Patient with history of chronic pain. In the ER urinalysis was positive for bacteria. White count 6.3, hemoglobin 10.9. Sodium 142, potassium 4.6. BUN of 23, creatinine 1.52 with a GFR of 34. Glucose 79. AST, ALT within normal range. Lactic acid and pro calcitonin pending at this time. CT of the abdomen and pelvis pending at this time. Troponin 0.06. BNP 2088. Lipase unremarkable. Patient admitted for further evaluation and treatment. When I saw the patient in the ER, pain seems to be out of proportion. There were times during her examination and history when she had no pain. Patient with history of bipolar disorder and schizophrenia. Patient lives at home. Hospital Course: overall during the hospital stay patient remained stable Patient was initially admitted to the hospital for lower pelvic plain was thought to have urinary tract infection with initial UA positive for bacteria and leuk esterase. Urine culture however was done and was negative for any abnormality were bacterial growth. Initially patient was started on IV meropenem given the age of long-term es BL infection however after the urine cultures were negative. Antibiotics were stopped and patient was discharged home under stable condition. Patient does have history of chronic pain syndrome along with fibromyalgia and syncope most likely secondary to that and thus she was discharged home under stable condition given her white count and her chemistry panel was within normal limits and patient did not have any fever while here in the hospital as well Vital Signs/Physical Exam: Temp Pulse Resp BP Pulse Ox 97.7 F 66 16 134/53 L 96 03/23/19 12:00 03/23/19 12:00 03/23/19 12:00 03/23/19 12:00 03/23/19 12:00 General: Alert, In no apparent distress HEENT: Atraumatic, PERRLA, EOMI Neck: Supple, JVD not distended Respiratory: Clear to auscultation bilaterally, Normal air movement Cardiovascular: Regular rate/rhythm, Normal S1 S2 Gastrointestinal: Normal bowel sounds, No tenderness Musculoskeletal: No tenderness Integumentary: No rashes Neurological: Normal speech, Normal tone, Normal affect Lymphatics: No axilla or inguinal lymphadenopathy Laboratory Data at Discharge: WBC 6.4 K/uL (4.3-10.9) D 03/23/19 03:47 Hgb 10.4 g/dL (12.0-15.0) L 03/23/19 03:47 Hct 30.7 % (36.0-45.0) L 03/23/19 03:47 Plt Count 165 K/uL (152-406) 03/23/19 03:47 PT 12.4 SECONDS (9.5-12.5) 03/21/19 18:42 INR 1.05 03/21/19 18:42 Sodium 142 mmol/L (136-145) 03/23/19 03:47 Potassium 5.0 mmol/L (3.5-5.1) 03/23/19 03:47 BUN 21 mg/dL (7-18) H 03/23/19 03:47 Creatinine 1.29 mg/dL (0.55-1.3) 03/23/19 03:47 Glucose 99 mg/dL (74-106) 03/23/19 03:47 Magnesium 2.0 mg/dL (1.8-2.4) 03/23/19 03:47 Total Bilirubin 0.3 mg/dL (0.2-1.0) 03/21/19 18:42 AST 31 U/L (15-37) 03/21/19 18:42 ALT 37 U/L (12-78) 03/21/19 18:42 Alkaline Phosphatase 146 U/L (45-117) H 03/21/19 18:42 Lipase 234 U/L (73-393) 03/21/19 18:42 Home Medications: Amitriptyline [Elavil*] 1 tab PO BID 03/22/19 Aspirin 1 tab PO DAILY 03/22/19 Atorvastatin Calcium [Lipitor*] 1 tab PO DAILY 03/22/19 Bisacodyl [Dulcolax*] 1 tab PO DAILYPRN PRN 03/22/19 Bupropion HCl [Wellbutrin Xl] 1 tab PO DAILY 03/22/19 Carbamazepine [Tegretol*] 1 tab PO BID 03/22/19 Carvedilol [Coreg*] 1 tab PO BID 03/22/19 Diclofenac Na [Voltaren D.r*] 1 tab PO BID 03/22/19 Divalproex [Depakote Sprinkle*] 500 mg PO DAILY 03/22/19 Donepezil [Aricept*] 10 mg PO BID 03/22/19 Duloxetine [Cymbalta *] 60 mg PO DAILY 03/22/19 Fexofenadine HCl [Brooke Allergy] 1 tab PO DAILY 03/22/19 Flaxseed Oil 1 tab PO DAILY 03/22/19 Fluticasone/Vilanterol [Breo Ellipta 200-25 Mcg INH] 1 puff IH DAILY 03/22/19 Folic Acid 1 tab PO DAILY 03/22/19 Gabapentin [Neurontin] 1 tab PO TID 03/22/19 LORazepam [Ativan*] 1 tab PO BID 03/22/19 Levothyroxine [Synthroid*] 200 mcg PO DAILY 03/22/19 Lisinopril [Zestril] 1 tab PO BID 03/22/19 Lubiprostone [Amitiza*] 1 tab PO BID 03/22/19 Memantine HCl [Namenda*] 1 tab PO BID 03/22/19 Mirtazapine 1 tab PO DAILY 03/22/19 Oxybutynin Chloride [Ditropan*] 1 tab PO DAILY 03/22/19 Promethazine HCl 1 tab PO Q6H 03/22/19 Topiramate [Topamax*] 1 tab PO DAILY 03/22/19 Trazodone [Desyrel*] 1 tab PO BEDTIME 03/22/19 Patient Discharge Instructions: Please f.u with PCP and Pain mgmt doctor in 1 to 2 week post discharge. No new medication. Urine culture was negative for any growth. Diet: Regular Activity: Ad jimi
[2019-03-23 16:43] VITALS: BP 140/45; TEMP 97.4
== END 2019-03-23 15:51 | disposition home or self-care (01) | DRG 690 ==
LOC: ER 17:17 → ERHOLD 20:24 → 4TH 20:59
PROVIDERS: ADMIT Family Medicine; ATTEND Family Medicine
DX: N30.00 Acute cystitis without hematuria (principal); I48.0 Paroxysmal atrial fibrillation; F31.9 Bipolar disorder, unspecified; F20.9 Schizophrenia, unspecified; N18.3 Chronic kidney disease, stage 3 (moderate); I12.9 Hypertensive chronic kidney disease with stage 1 through stage 4 chronic kidney disease, or unspecified chronic kidney disease; E78.5 Hyperlipidemia, unspecified; E03.9 Hypothyroidism, unspecified; F03.90 Unspecified dementia, unspecified severity, without behavioral disturbance, psychotic disturbance, mood disturbance, and anxiety; G89.29 Other chronic pain; G62.9 Polyneuropathy, unspecified; J44.9 Chronic obstructive pulmonary disease, unspecified; Z16.12 Extended spectrum beta lactamase (ESBL) resistance
CPT/HCPCS: 36415; 71045; 74176; 80048; 80076; 80156; 80164; 81003; 81015; 83605; 83690; 83735; 83880; 84145; 84439; 84443; 84484; 85025; 85610; 86850; 86900; 86901; 87040; 87086; 87088; 93005; 94640; 96361; 96365; 96375; 97161; 99285; J0696; J0744; J1650; J2185; J2270; J2405; J3486; J7030; J7605

== ENCOUNTER 2019-07-17 15:21 | Inpatient (IN) | payer OTHER, BC ==
--- OUTSIDE RECORDS SUMMARY | 2019-07-17 15:24 | XMS REPORT ---
:1945 Author Organization [employer] Care Team Providers Name Role Phone Alegre, Na Provider Role Unavailable Allergies, Adverse Reactions, Alerts Substance Reaction Event Type N.K.D.A. Info Not Available Non Drug Allergy Problems Problem Type Condition Code Onset Dates Condition Status Assessment Unsteady gait R26.81 Active Assessment Hyperkalemia E87.5 Active Assessment Migraines G43.909 Active Assessment Alkaline phosphatase elevation R74.8 Active Assessment Primary osteoarthritis of both M17.0 Active knees Assessment Degenerative disc disease, lumbar M51.36 Active Assessment Nausea R11.0 Active Assessment Dermatitis L30.9 Active Problem COPD (chronic obstructive pulmonary J44.9 Active disease) Assessment Mixed hyperlipidemia E78.2 Active Problem Allergic rhinitis J30.9 Active Assessment HTN (hypertension) I10 Active Problem Mixed hyperlipidemia E78.2 Active Problem Dementia without behavioral F03.90 Active disturbance, unspecified dementia type Problem Migraines G43.909 Active Problem Overactive bladder N32.81 Active Problem Other chronic pain G89.29 Active Assessment CKD (chronic kidney disease), stage N18.3 Active III Problem CKD (chronic kidney disease), stage N18.3 Active III Assessment Acquired hypothyroidism E03.9 Active Problem Swelling R60.9 Active Problem Primary osteoarthritis of both M17.0 Active knees Problem Lumbar disc herniation M51.26 Active Problem Pure hyperglyceridemia E78.1 Active Problem Bipolar disorder F31.9 Active Problem Degenerative disc disease, lumbar M51.36 Active Problem Unsteady gait R26.81 Active Problem Acquired hypothyroidism E03.9 Active Problem Depression F32.9 Active Problem Anxiety F41.9 Active Problem Hyperthyroidism E05.90 Active Problem HTN (hypertension) I10 Active Medications Medication Code Code Instructions Start End Status Dosage System Date Date Carvedilol [facility] 21924490681 6.25 MG Orally Active 1 tablet Twice a day Lisinopril [facility] 00482993862 2.5 MG Orally Active 1 tablet twice a day Carbamazepine [facility] 22196099448 200 MG Orally Active 1 tablet once a day Ondansetron HCl NDC 32561683771 4 MG Orally Active 1 tablet every 6 hrs Vitamin D [facility] 16014158799 1000 UNIT Active 1 tablet Orally Once a day Melatonin ND 91667885297 3 MG Orally Active 1 tablet Once a day at bedtime as needed with food Protonix [facility] 55487879596 40 MG Orally Active 1 tablet Once a day Imitrex ND 63304240343 50 MG Orally Apr 03, Active 1 tablet Once a day november 2018 as needed repeat dose 1 dose in 2 hours ( max 2 doses in 24 hours) Donepezil HCl [facility] 99317673542 10 MG Oral Active 1 tablet twice a day at bedtime Claritin [facility] 58609131730 10 MG Orally December 08, Active 1 tablet Once a day 2018 Duloxetine HCl [facility] 12018219954 60 MG Orally Active 1 capsule Once a day Benadryl Allergy [facility] 11162310639 25 MG Orally Active 1 tablet every 8 hrs as needed Simethicone [facility] 29343876843 80 MG Orally Active 1 tablet Four times a after day meals and at bedtime as needed Imodium A-D [facility] 30542358704 2 MG Orally Active 1 tablet Four times a as needed day Gabapentin [facility] 59457200223 800 MG Orally Active 1 tablet three times a day Oxybutynin [facility] 75161356874 5 MG Oral twice Active 1 tablet Chloride ER a day Ipratropium-Albu [facility] 39549866289 0.5-2.5 (3) Active 3 ml terol MG/3ML Inhalation every 6 hrs Zofran [facility] 90526032214 4 MG Orally Jun 17, Active 1 tablet every 12 hrs 2018 prn nausea Trazodone HCl [facility] 74841473438 50 MG Oral Active not defined Zantac [facility] 72586998958 150 MG Orally Active 1 tablet Once a day at bedtime Atorvastatin [facility] 36058398797 20 MG Orally Active 1 tablet Calcium Once a day Levothyroxine [facility] 36285398296 25 MCG Orally Apr 24, Active 1 tablet Sodium Once a day 2018 in the morning on an empty stomach Divalproex [facility] 75116183801 500 MG Orally Active 1 tablet Sodium Twice a day Levothyroxine [facility] 86935642696 200 MCG Orally Active 1 tablet Sodium Once a day on an empty stomach in the morning Flonase [facility] 79703847693 50 MCG/DOSE December 08, Active 1 spray Nasally Twice a 2019 in each day nostril Diclofenac [facility] 77439885789 75 MG Orally Active 1 tablet Sodium Twice a day with food or milk BuPROPion HCl ER [facility] 44891126148 300 MG Orally Active 1 tablet (XL) Once a day in the morning Memantine HCl [facility] 53132723460 10 MG Orally Active 1 tablet Twice a day Promethazine HCl [facility] 71350817719 25 MG/ML Inactive 1 ml as Injection every needed 6 hrs Folic Acid-Vit [facility] 7[address]133 0.8-10-0.115 MG Active 1 tablet B6-Vit B12 Orally Once a day Topiramate [facility] 27843852043 100 MG Active TAKE 1 TABLET BY MOUTH TWICE DAILY Oxybutynin [facility] 25440443626 5 MG Orally Apr 27October Active 1 tablet Chloride Twice a day 2018 Calcium NDC 0 Oral Active 1 tab Results Name Result Date Reference Range Unit Abnormality Flag Basic Metabolic Panel ----Calcium Level 8.4 20190616 8.5-10.1 mg/dL L ----Glomerular Filtration 33 [id number] =/>90 mL L Rate ----Creatinine 1.56 20190616 0.55-1.3 mg/dL H ----BUN Blood Urea Nitrogen 34 20190616 7-18 mg/dL H ----Glucose Level 85 87972562 74-106 mg/dL ----Sodium Level 143 20190616 136-145 mmol/L ----Potassium 5.3 77072785 3.5-5.1 mmol/L H ----Chloride Level 114 20190616 98-107 mmol/L H ----Bicarbonate 26 20190616 21-32 mmol/L Summary Purpose [employer] Submission
--- OUTSIDE RECORDS SUMMARY | 2019-07-17 15:24 | XMS REPORT ---
:1945 Author Organization [employer] Care Team Providers Name Role Phone Alegre, Na Provider Role Unavailable Allergies No Known Allergies Problems Problem Type Condition Code Onset Dates Condition Status Problem Allergic rhinitis J30.9 Active Problem Primary osteoarthritis of both M17.0 Active knees Problem Dementia without behavioral F03.90 Active disturbance, unspecified dementia type Problem Overactive bladder N32.81 Active Assessment Urinary tract infection, site not N39.0 Active specified Problem Migraines G43.909 Active Assessment Hematuria, unspecified R31.9 Active Problem Other chronic pain G89.29 Active Problem Pure hyperglyceridemia E78.1 Active Problem Swelling R60.9 Active Problem Mixed hyperlipidemia E78.2 Active Problem Lumbar disc herniation M51.26 Active Problem Acquired hypothyroidism E03.9 Active Problem Bipolar disorder F31.9 Active Problem Unsteady gait R26.81 Active Problem HTN (hypertension) I10 Active Problem Depression F32.9 Active Problem Degenerative disc disease, lumbar M51.36 Active Problem Anxiety F41.9 Active Problem Hyperthyroidism E05.90 Active Problem COPD (chronic obstructive pulmonary J44.9 Active disease) Medications Medication Code Code Instructions Start End Date Status Dosage System Date Topiramate ND 68496411922 100 MG Orally Active 1 tablet twice a day Levothyroxine ND 90112309907 200 MCG Orally Active 1 tablet Sodium Once a day on an empty stomach in the morning Imodium A-D ND 31171900403 2 MG Orally Active 1 tablet Four times a as needed day Melatonin ND 21223898919 3 MG Orally Active 1 tablet Once a day at bedtime as needed with food Oxybutynin ND 34623576222 5 MG Oral twice Active 1 tablet Chloride ER a day Lisinopril ND 55825217832 2.5 MG Orally Active 1 tablet twice a day Ipratropium-Albu ND 68567451870 0.5-2.5 (3) Active 3 ml terol MG/3ML Inhalation every 6 hrs Levothyroxine ND 64218511342 25 MCG Orally Oct 24, Active 1 tablet Sodium Once a day 2018 in the morning on an empty stomach Simethicone [facility] 98599375969 80 MG Orally Active 1 tablet Four times a after day meals and at bedtime as needed Memantine HCl [facility] 49107113538 10 MG Orally Active 1 tablet Twice a day Donepezil HCl [facility] 63263245114 10 MG Oral Active 1 tablet twice a day at bedtime Carbamazepine [facility] 39845394180 200 MG Orally Active 1 tablet once a day Claritin [facility] 45076915522 10 MG Orally December 08, Active 1 tablet Once a day 2018 BuPROPion HCl ER [facility] 73875108040 300 MG Orally Active 1 tablet (XL) Once a day in the morning Calcium ND 0 Oral Active 1 tab Cipro [facility] 75194966794 500 MG Orally May 12, May 19, Active 1 tablet every 12 hrs 2018 2018 Oxybutynin [facility] 38151907065 5 MG Orally Apr 27October Active 1 tablet Chloride Twice a day 2018 Benadryl Allergy [facility] 57242806166 25 MG Orally Active 1 tablet every 8 hrs as needed Imitrex [facility] 44079218800 50 MG Orally Apr 03, Active 1 tablet Once a day november 2018 as needed repeat dose 1 dose in 2 hours ( max 2 doses in 24 hours) Carvedilol [facility] 37069696165 6.25 MG Orally Active 1 tablet Twice a day Promethazine HCl [facility] 69625114833 25 MG/ML Active 1 ml as Injection every needed 6 hrs Zantac [facility] 25801394928 150 MG Orally Active 1 tablet Once a day at bedtime Duloxetine HCl [facility] 99329310627 60 MG Orally Active 1 capsule Once a day Folic Acid-Vit [facility] 54688-82312 0.8-10-0.115 MG Active 1 tablet B6-Vit B12 Orally Once a day Divalproex [facility] 40308356153 500 MG Orally Active 1 tablet Sodium Twice a day Vitamin D [facility] 19250437019 1000 UNIT Active 1 tablet Orally Once a day Diclofenac [facility] 70937598242 75 MG Orally Active 1 tablet Sodium Twice a day with food or milk Flonase [facility] 90461518748 50 MCG/DOSE December 08, Active 1 spray in Nasally Twice a 2018 each day nostril Protonix [facility] 99125255571 40 MG Orally Active 1 tablet Once a day Atorvastatin [facility] 37356136934 20 MG Orally Active 1 tablet Calcium Once a day Trazodone HCl [facility] 83499014060 50 MG Oral Active not defined Gabapentin [facility] 28008277304 800 MG Orally Active 1 tablet three times a day Ondansetron HCl [facility] 92031889218 4 MG Orally Active 1 tablet every 6 hrs Results Name Result Date Reference Range Unit Abnormality Flag Urine Dip Stick ----Appearance yellow and cloudy 20190512 ----SP. Gr 1.015 20190512 ----pH 6.0 20190512 ----Ketone NEG 20190512 ----Glucose NEG 20190512 ----Blood 2+ 20190512 ----Protein 1+ 20190512 ----Nitrite POS 20190512 ----Leukocytes 3+ 20190512 Summary Purpose [employer]ClinicalWorks Submission
--- OUTSIDE RECORDS SUMMARY | 2019-07-17 15:24 | XMS REPORT ---
:1945 Author Organization [employer] Care Team Providers Name Role Phone Alegre, Na Provider Role Unavailable Allergies No Known Allergies Problems Problem Type Condition Code Onset Dates Condition Status Problem Mixed hyperlipidemia E78.2 Active Problem Dementia without behavioral F03.90 Active disturbance, unspecified dementia type Problem Migraines G43.909 Active Problem Overactive bladder N32.81 Active Problem Other chronic pain G89.29 Active Problem CKD (chronic kidney disease), stage N18.3 Active III Problem Swelling R60.9 Active Problem Primary osteoarthritis [...] COPD (chronic obstructive pulmonary J44.9 Active disease) Problem HTN (hypertension) I10 Active Problem Allergic rhinitis J30.9 Active Medications Medication Code Code Instructions Start End Status Dosage System Date Date Comp Air [facility] 39099992839 - every 6 hours Jun 16, Active as directed Compressor as needed 2019 Nebulizer Results No Known Results Summary Purpose [employer]ClinicalWorks Submission
--- OUTSIDE RECORDS SUMMARY | 2019-07-17 15:24 | XMS REPORT ---
:1945 [facility] [address] [place] [address] Care Team Providers Name Role Phone Unavailable Unavailable Unavailable Problems This patient has no known problems. Allergies, Adverse Reactions, Alerts This patient has no known allergies or adverse reactions. Medications This patient has no known medications.
--- OUTSIDE RECORDS SUMMARY | 2019-07-17 15:24 | XMS REPORT ---
:1945 Author Organization [employer] Care Team Providers Name Role Phone Alegre, Na Provider Role Unavailable Allergies, Adverse Reactions, Alerts Substance Reaction Event Type N.K.D.A. Info Not Available Non Drug Allergy Problems Problem Type Condition Code Onset Dates Condition Status Assessment Unsteady gait R26.81 Active Assessment Other chronic pain G89.29 Active Assessment Mild chronic anemia D64.9 Active Assessment Elevated TSH R79.89 Active Assessment Lumbar disc herniation M51.26 Active Assessment Overactive bladder N32.81 Active Assessment COPD (chronic obstructive pulmonary J44.9 Active disease) Assessment Primary osteoarthritis of both M17.0 Active knees Assessment Dementia without behavioral F03.90 Active disturbance, unspecified dementia type Problem Anxiety F41.9 Active Assessment Migraines G43.909 Active Problem COPD (chronic obstructive pulmonary J44.9 Active disease) Assessment Degenerative disc disease, lumbar M51.36 Active Problem Allergic rhinitis J30.9 Active Problem Primary osteoarthritis of both M17.0 Active knees Problem Dementia without behavioral F03.90 Active disturbance, unspecified dementia type Problem Overactive bladder N32.81 Active Problem Migraines G43.909 Active Assessment Acquired hypothyroidism E03.9 Active Assessment HTN (hypertension) I10 Active Problem Other chronic pain G89.29 Active Assessment Mixed hyperlipidemia E78.2 Active Problem Pure hyperglyceridemia E78.1 Active Problem Swelling R60.9 Active Problem Mixed hyperlipidemia E78.2 Active Problem Lumbar disc herniation M51.26 Active Problem Acquired hypothyroidism E03.9 Active Assessment Pain in left shoulder M25.512 Active Problem Bipolar disorder F31.9 Active Problem Unsteady gait R26.81 Active Problem HTN (hypertension) I10 Active Problem Depression F32.9 Active Problem Degenerative disc disease, lumbar M51.36 Active Problem Hyperthyroidism E05.90 Active Medications Medication Code Code Instructions Start End Date Status Dosage System Date Protonix [facility] 79042485618 40 MG Orally Active 1 tablet Once a day Benadryl Allergy [facility] 16442714807 25 MG Orally Active 1 tablet every 8 hrs as needed Folic Acid-Vit [facility] 52867-59375 0.8-10-0.115 MG Active 1 tablet B6-Vit B12 Orally Once a day Calcium ND 0 Oral Active 1 tab Diclofenac [facility] 53398422886 75 MG Orally Active 1 tablet Sodium Twice a day with food or milk Carbamazepine [facility] 07876295664 200 MG Orally Active 1 tablet once a day Ipratropium-Albu [facility] 98881633658 0.5-2.5 (3) Active 3 ml terol MG/3ML Inhalation every 6 hrs Simethicone [facility] 13676190547 80 MG Orally Active 1 tablet Four times a after day meals and at bedtime as needed Myrbetriq [facility] 90252300253 25 MG Orally Apr 27October Active 1 tablet Once a day 2018 Levothyroxine [facility] 55164844591 25 MCG Orally Apr 27, Active 1 tablet Sodium Once a day 2018 in the morning on an empty stomach Ondansetron HCl [facility] 65714502112 4 MG Orally Active 1 tablet every 6 hrs Gabapentin [facility] 59178337677 800 MG Orally Active 1 tablet three times a day Atorvastatin [facility] 63910094666 20 MG Orally Active 1 tablet Calcium Once a day Oxybutynin [facility] 32015702571 5 MG Oral twice Active 1 tablet Chloride ER a day Claritin [facility] 40625554808 10 MG Orally December 08, Active 1 tablet Once a day 2018 Promethazine HCl [facility] 86688542896 25 MG/ML Active 1 ml as Injection every needed 6 hrs Melatonin [facility] 53850933289 3 MG Orally Active 1 tablet Once a day at bedtime as needed with food Carvedilol [facility] 36146717624 6.25 MG Orally Active 1 tablet Twice a day Lisinopril [facility] 48976065622 2.5 MG Orally Active 1 tablet twice a day Donepezil HCl [facility] 07533073674 10 MG Oral Active 1 tablet twice a day at bedtime Vitamin D [facility] 39587441524 1000 UNIT Active 1 tablet Orally Once a day Duloxetine HCl [facility] 85413155466 60 MG Orally Active 1 capsule Once a day BuPROPion HCl ER [facility] 44008470853 300 MG Orally Active 1 tablet (XL) Once a day in the morning Flonase [facility] 31003285351 50 MCG/DOSE December 08, Active 1 spray in Nasally Twice a 2018 each day nostril Imodium A-D [facility] 06490549768 2 MG Orally Active 1 tablet Four times a as needed day Imitrex [facility] 21817638670 50 MG Orally Apr 03, Active 1 tablet Once a day november 2018 as needed repeat dose 1 dose in 2 hours ( max 2 doses in 24 hours) Levothyroxine [facility] 82806699508 200 MCG Orally Active 1 tablet Sodium Once a day on an empty stomach in the morning Topiramate [facility] 56759715852 100 MG Orally Active 1 tablet twice a day Divalproex [facility] 92601190332 500 MG Orally Active 1 tablet Sodium Twice a day Zantac [facility] 46860463902 150 MG Orally Active 1 tablet Once a day at bedtime Memantine HCl [facility] 29921822559 10 MG Orally Active 1 tablet Twice a day Trazodone HCl [facility] 46285282350 50 MG Oral Active not defined Results No Known Results Summary Purpose [employer]ClinicalWorks Submission
--- OUTSIDE RECORDS SUMMARY | 2019-07-17 15:24 | XMS REPORT ---
[...] bladder N32.81 Active Problem Migraines G43.909 Active Problem Other chronic pain G89.29 Active [...] (chronic obstructive pulmonary J44.9 Active disease) Medications No Known Medications Results No Known Results Summary Purpose [employer]ClinicalWorks Submission
--- OUTSIDE RECORDS SUMMARY | 2019-07-17 15:24 | XMS REPORT ---
[...] Active Problem Allergic rhinitis J30.9 Active Medications No Known Medications Results No Known Results Summary Purpose [employer]ClinicalWorks Submission
--- OUTSIDE RECORDS SUMMARY | 2019-07-17 15:24 | XMS REPORT ---
[...] type Problem Overactive bladder N32.81 Active Assessment Mixed hyperlipidemia E78.2 Active Problem Migraines G43.909 Active Assessment Acquired hypothyroidism E03.9 Active Assessment Migraines G43.909 Active Problem Other chronic pain G89.29 Active Problem Pure hyperglyceridemia E78.1 Active Problem Swelling R60.9 Active Problem Mixed hyperlipidemia E78.2 Active Problem Lumbar disc herniation M51.26 Active Problem Acquired hypothyroidism E03.9 Active Problem Bipolar disorder F31.9 Active Problem Unsteady gait R26.81 Active Problem HTN (hypertension) I10 Active Problem Depression F32.9 Active Assessment Elevated TSH R79.89 Active Problem Degenerative disc disease, lumbar M51.36 Active Problem Anxiety F41.9 Active Assessment Mild chronic anemia D64.9 Active Problem Hyperthyroidism E05.90 Active Problem COPD (chronic obstructive pulmonary J44.9 Active disease) Medications No Known Medications Results No Known Results Summary Purpose [employer]ClinicalWorks Submission
--- OUTSIDE RECORDS SUMMARY | 2019-07-17 15:25 | XMS REPORT ---
:1945 Author Organization [employer] Care Team Providers Name Role Phone Alegre, Na Provider Role Unavailable Allergies No Known Allergies Problems Problem Type Condition Code Onset Dates Condition Status Problem Migraines G43.909 Active Problem Primary osteoarthritis of both M17.0 Active knees Problem Dementia without behavioral F03.90 Active disturbance, unspecified dementia type Problem CKD (chronic kidney disease), stage N18.3 Active III Problem Unsteady gait R26.81 Active Problem Overactive bladder N32.81 Active Problem Dry eye syndrome of both eyes H04.123 Active Problem Pure hyperglyceridemia E78.1 Active Problem Swelling R60.9 Active Problem Other chronic pain G89.29 Active Problem Lumbar disc herniation M51.26 Active Problem Degenerative disc disease, lumbar M51.36 Active Problem Hyperthyroidism E05.90 Active Problem Acquired hypothyroidism E03.9 Active Problem Bipolar disorder F31.9 Active Problem Anxiety F41.9 Active Problem COPD (chronic obstructive pulmonary J44.9 Active disease) Problem HTN (hypertension) I10 Active Problem Allergic rhinitis J30.9 Active Problem Depression F32.9 Active Problem Mixed hyperlipidemia E78.2 Active Medications No Known Medications Results No Known Results Summary Purpose eClinicalWorks Submission
--- OUTSIDE RECORDS SUMMARY | 2019-07-17 15:25 | XMS REPORT ---
:1945 Author Organization [employer] Care Team Providers Name Role Phone Alegre, Na Provider Role Unavailable Allergies No Known Allergies Problems Problem Type Condition Code Onset Dates Condition Status Assessment Overactive bladder N32.81 Active Problem Allergic rhinitis J30.9 Active Assessment Degenerative disc disease, lumbar M51.36 Active Problem Mixed hyperlipidemia E78.2 Active Assessment Dry eye syndrome of both eyes H04.123 Active Problem Migraines G43.909 Active Problem Primary osteoarthritis of both M17.0 Active knees Problem Dementia without behavioral F03.90 Active disturbance, unspecified dementia type Problem CKD (chronic kidney disease), stage N18.3 Active III Problem Overactive bladder N32.81 Active Problem Unsteady gait R26.81 Active Problem Dry eye syndrome of both eyes H04.123 Active Assessment Dry mouth, unspecified R68.2 Active Problem Pure hyperglyceridemia E78.1 Active Problem Swelling R60.9 Active Problem Other chronic pain G89.29 Active Problem Lumbar disc herniation M51.26 Active Problem Degenerative disc disease, lumbar M51.36 Active Problem Hyperthyroidism E05.90 Active Problem Acquired hypothyroidism E03.9 Active Problem Bipolar disorder F31.9 Active Problem Anxiety F41.9 Active Problem COPD (chronic obstructive pulmonary J44.9 Active disease) Problem HTN (hypertension) I10 Active Problem Depression F32.9 Active Medications Medication Code Code Instructions Start End Date Status Dosage System Date Melatonin ND 22305650748 3 MG Orally Active 1 tablet Once a day at bedtime as needed with food Simethicone ND 86607775653 80 MG Orally Active 1 tablet Four times a after day meals and at bedtime as needed Calcium NDC 0 Oral Active 1 tab Vitamin D ND 65972913368 1000 UNIT Active 1 tablet Orally Once a day Donepezil HCl ND 86694857245 10 MG Oral Active 1 tablet twice a day at bedtime Oxybutynin ND 69123802772 5 MG Orally Apr 27October Active 1 tablet Chloride Twice a day 2018 Claritin ND 89798607563 10 MG Orally December 08, Active 1 tablet Once a day 2018 Protonix [facility] 59861765132 40 MG Orally Active 1 tablet Once a day Duloxetine HCl [facility] 40552358314 60 MG Orally Active 1 capsule Once a day Zantac [facility] 08155332961 150 MG Orally Active 1 tablet Once a day at bedtime Gabapentin [facility] 70097017791 800 MG Orally Active 1 tablet three times a day Oxybutynin [facility] 72809381731 5 MG Oral twice Active 1 tablet Chloride ER a day Topiramate [facility] 18483438021 100 MG Active TAKE 1 TABLET BY MOUTH TWICE DAILY BuPROPion HCl ER [facility] 76289802539 300 MG Orally Active 1 tablet (XL) Once a day in the morning Imitrex [facility] 30158900776 50 MG Orally Apr 03, Active 1 tablet Once a day november 2018 as needed repeat dose 1 dose in 2 hours ( max 2 doses in 24 hours) Benadryl Allergy [facility] 35880844687 25 MG Orally Active 1 tablet every 8 hrs as needed Imodium A-D [facility] 56689709605 2 MG Orally Active 1 tablet Four times a as needed day Atorvastatin [facility] 35240959604 20 MG Orally Active 1 tablet Calcium Once a day Levothyroxine [facility] 82561781406 200 MCG Orally Active 1 tablet Sodium Once a day on an empty stomach in the morning Ipratropium-Albu [facility] 40748795560 0.5-2.5 (3) Active 3 ml terol MG/3ML Inhalation every 6 hrs Folic Acid-Vit [facility] 98424-12521 0.8-10-0.115 MG Active 1 tablet B6-Vit B12 Orally Once a day Flonase [facility] 60607589698 50 MCG/DOSE December 08, Active 1 spray in Nasally Twice a 2018 each day nostril Zofran [facility] 75122726397 4 MG Orally Jun 17, Active 1 tablet every 12 hrs 2019 prn nausea Lisinopril [facility] 59661374557 2.5 MG Orally Active 1 tablet twice a day Diclofenac ND 33936078542 75 MG Orally Active 1 tablet Sodium Twice a day with food or milk Levothyroxine [facility] 48479686361 25 MCG Orally Apr 27, Active 1 tablet Sodium Once a day 2018 in the morning on an empty stomach Memantine HCl [facility] 62736045501 10 MG Orally Active 1 tablet Twice a day Comp Air [facility] 66358572435 - every Jun 16, Active as Compressor hours as needed 2019 directed Nebulizer Carvedilol [facility] 52942730842 6.25 MG Orally Active 1 tablet Twice a day Carbamazepine [facility] 39926139947 200 MG Orally Active 1 tablet once a day Trazodone HCl [facility] 64708212490 50 MG Oral Active not defined Divalproex [facility] 20985833362 500 MG Orally Active 1 tablet Sodium Twice a day Ondansetron HCl [facility] 11075246926 4 MG Orally Active 1 tablet every 6 hrs Results Name Result Date Reference Range Unit Abnormality Flag Sjogren's Ab, Anti-SSA/-SSB ----Sjogren's <0.2 [id number] 0.0-0.9 AI Anti-SS-A ----Sjogren's <0.2 [id number] 0.0-0.9 AI Anti-SS-B EDWIN w/Reflex ----EDWIN Direct Negative [id number] Negative Comp. Metabolic Panel (14) (CMP) ----Sodium 142 20190627 134-144 mmol/L ----BUN/Creatinine 17 64728530 12-28 Ratio ----Chloride 106 50381121 96-106 mmol/L ----Potassium 5.5 85910687 3.5-5.2 mmol/L H ----Calcium 9.2 83655361 8.7-10.3 mg/dL ----Protein, Total 5.7 02147089 6.0-8.5 g/dL L ----Carbon Dioxide, 23 20190627 20-29 mmol/L Total ----A/G Ratio 1.9 72129904 1.2-2.2 ----eGFR If NonAfricn 38 [id number] >59 mL/min/1.73 L Am ----Bilirubin, Total <0.2 17892965 0.0-1.2 mg/dL ----eGFR If Africn Am 44 [id number] >59 mL/min/1.73 L ----Albumin 3.7 58812296 3.5-4.8 g/dL ----BUN 23 20190627 8-27 mg/dL ----Globulin, Total 2.0 20190627 1.5-4.5 g/dL ----Creatinine 1.38 20190627 0.57-1.00 mg/dL H ----ALT (SGPT) 13 20190627 0-32 IU/L ----Glucose 84 20190627 65-99 mg/dL ----Alkaline 122 20190627 39-117 IU/L H Phosphatase ----AST (SGOT) 13 20190627 0-40 IU/L Summary Purpose eClinicalWorks Submission
--- NOTE | 2019-07-17 16:25 | RAD REPORT ---
EXAM DESCRIPTION: RAD - Chest Single View - 07/17/2019 4:03 pm CLINICAL HISTORY: Weakness, shortness of breath COMPARISON: March 2019 TECHNIQUE: AP portable chest image was obtained 1558 hours . FINDINGS: Lung volumes are low. No acute lung parenchymal process. Heart and vasculature are normal. No measurable pleural effusion and no pneumothorax. No acute bony abnormality seen. No acute aortic findings suspected. IMPRESSION: No acute cardiopulmonary process. No significant change from comparison.
[2019-07-17 16:50] LABS: Absolute Lymphocytes (CBC) 0.4 K/uL (0.7-4.9); Basophils % 0.3 % (0-1.3); Hematocrit 32.5 % (36.0-45.0); Lymphocytes % 5.3 % (15.3-44.8); MPV 9.1 fL (7.6-11.3); RBC Red Blood Cell Count 3.41 M/uL (3.86-4.86)
[2019-07-17 16:51] LABS: Protime INR 1.04
[2019-07-17 17:26] LABS: Urine Bacteria LOADED /HPF (<20); Urine Culture Reflex Order REFLEXED; Urine RBC <5 /HPF (NONE SEEN)
[2019-07-17 17:28] LABS: Blood Morphology Comment NOT SEEN (NOT SEEN); Platelet Estimate DECR; Urine White Blood Cell Casts OK
[2019-07-17] MEDS ORDERED: ACETAMINOPHEN 325 MG TABLET ONE (17:38)
--- NOTE | 2019-07-17 17:38 | EDPHYS ---
Physician Documentation [facility] Name: Macrina Mason Age: 73 yrs Sex: Female : 1945 Arrival Date: 07/17/2019 Time: 15:29 Bed 16 Private MD: ED Physician Ta Stevens HPI: 07/17 16:38 This 73 yrs old Female presents to ER via EMS with complaints of general jr8 weakness . 16:38 The patient's problem is reported as weakness, that is generalized. Onset: The jr8 symptoms/episode began/occurred acutely, 2 day(s) ago. Duration: The episode is continuous. Context: the episode(s) was witnessed, by family. The symptoms are alleviated by nothing. The symptoms are aggravated by walking. Associated signs and symptoms: The patient has no apparent associated signs or symptoms. Severity of symptoms: At their worst the symptoms were moderate in the emergency department the symptoms are unchanged. Patient's baseline: Neuro: alert and fully oriented, Motor: no deficits, Ambulation: walks with assist only, uses walker, Speech: normal. The patient has not experienced similar symptoms in the past. The patient has not recently seen a physician. Historical: - Allergies: 15:52 No Known Allergies; jl7 - Home Meds: 15:52 Amitiza 24 mcg Oral cap 1 cap 2 times per day [Active]; amitriptyline 25 mg Oral tab 1 jl7 tab 2 times per day [Active]; aspirin 325 mg Oral tab 1 tab once daily [Active]; atorvastatin 20 mg Oral tab 1 tab once daily [Active]; Bisacodyl Oral as needed [Active]; Breo Ellipta 200-25 mcg/dose inhalation dsdv 1 puff once daily [Active]; bupropion HCl 300 mg Oral Tb24 1 tab once daily [Active]; carbamazepine 200 mg Oral CM12 1 cap 2 times per day [Active]; carvedilol 6.25 mg Oral tab 1 tab 2 times per day [Active]; diclofenac sodium 75 mg Oral TbEC 1 tab 2 times per day [Active]; divalproex 500 mg Oral Tb24 1 tab once daily [Active]; donepezil 10 mg Oral tab 1 tab twice a day [Active]; duloxetine 60 mg Oral cpDR 1 cap once daily [Active]; fexofenadine 180 mg Oral tab 1 tab once daily [Active]; flaxseed oil 1,000 mg Oral cap daily [Active]; folic acid 800 mcg Oral tab 1 tab once daily [Active]; gabapentin 800 mg Oral tab 3 times per day [Active]; levothyroxine 200 mcg tab 1 tab once daily [Active]; lisinopril 2.5 mg Oral tab 1 tab twice a day [Active]; lorazepam 0.5 mg Oral tab 1 tab 2 times per day [Active]; memantine 10 mg Oral tab 1 tab 2 times per day [Active]; mirtazapine 30 mg Oral tab 1 tab once daily [Active]; oxybutynin chloride 5 mg Oral tr24 2 tabs once daily [Active]; promethazine 25 mg Oral tab 1 tab every 6 hours [Active]; topiramate 100 mg Oral CSpX 1 cap once daily [Active]; trazodone 50 mg Oral tab nightly [Active]; - PMHx: 15:52 allergies; Bipolar disorder; COPD; DVT; Schizophrenia; jl7 - PSHx: 15:52 Hysterectomy; eye surgery; both knee replacement; jl7 - Immunization history:: Adult Immunizations unknown. - Social history:: Smoking status: unknown. - Ebola Screening: : No symptoms or risks identified at this time. ROS: 16:45 Eyes: Negative for injury, pain, redness, and discharge, ENT: Negative for injury, jr8 pain, and discharge, Neck: Negative for injury, pain, and swelling, Cardiovascular: Negative for chest pain, palpitations, and edema, Respiratory: Negative for shortness of breath, cough, wheezing, and pleuritic chest pain, Abdomen/GI: Negative for abdominal pain, nausea, vomiting, diarrhea, and constipation, Back: Negative for injury and pain, MS/Extremity: Negative for injury and deformity, Skin: Negative for injury, rash, and discoloration. 16:45 Neuro: Positive for weakness. Exam: 16:45 Eyes: Pupils equal round and reactive to light, extra-ocular motions intact. Lids and jr8 lashes normal. Conjunctiva and sclera are non-icteric and not injected. Cornea within normal limits. Periorbital areas with no swelling, redness, or edema. ENT: Nares patent. No nasal discharge, no septal abnormalities noted. Tympanic membranes are normal and external auditory canals are clear. Oropharynx with no redness, swelling, or masses, exudates, or evidence of obstruction, uvula midline. Mucous membranes moist. Neck: Trachea midline, no thyromegaly or masses palpated, and no cervical lymphadenopathy. Supple, full range of motion without nuchal rigidity, or vertebral point tenderness. No Meningismus. Cardiovascular: Regular rate and rhythm with a normal S1 and S2. No gallops, murmurs, or rubs. Normal PMI, no JVD. No pulse deficits. Respiratory: Lungs have equal breath sounds bilaterally, clear to auscultation and percussion. No rales, rhonchi or wheezes noted. No increased work of breathing, no retractions or nasal flaring. Abdomen/GI: Soft, non-tender, with normal bowel sounds. No distension or tympany. No guarding or rebound. No evidence of tenderness throughout. Back: No spinal tenderness. No costovertebral tenderness. Full range of motion. Skin: Warm, dry with normal turgor. Normal color with no rashes, no lesions, and no evidence of cellulitis. MS/ Extremity: Pulses equal, no cyanosis. Neurovascular intact. Full, normal range of motion. Neuro: Awake and alert, GCS 15, oriented to person, place, time, and situation. Cranial nerves II-XII grossly intact. Motor strength 4/5 in all extremities. Sensory grossly intact. 17:37 Radiologist reports: No acute findings jr8 Vital Signs: 15:58 BP 143 / 61; Pulse 89; Resp 19 S; Temp 99.4(O); Pulse Ox 97% on R/A; jl7 16:30 BP 162 / 83; Pulse 88; Resp 16 S; Temp 99.4(O); Pulse Ox 100% on R/A; jl7 17:30 BP 154 / 89; Pulse 92; Resp 19 S; Pulse Ox 99% on R/A; jl7 MDM: 15:30 Patient medically screened. jr8 17:32 Differential diagnosis: CVA, TIA, metabolic disorder, drug effects, sepsis. Data jr8 reviewed: vital signs, nurses notes, lab test result(s), EKG, radiologic studies, CT scan, plain films. Data interpreted: Pulse oximetry: on room air is 97 %. Interpretation: normal. Counseling: I had a detailed discussion with the patient and/or guardian regarding: the historical points, exam findings, and any diagnostic results supporting the discharge/admit diagnosis, lab results, radiology results, the need for further work-up and treatment in the hospital. 07/17 15:41 Order name: Basic Metabolic Panel; Complete Time: 17:43 [facility] 07/17 15:41 Order name: CBC with Diff; Complete Time: 17:34 07/17 15:41 Order name: LFT's; Complete Time: 17:43 [facility] 07/17 15:41 Order name: Magnesium; Complete Time: 17:43 [facility] 07/17 15:41 Order name: NT PRO-BNP; Complete Time: 17:43 07/17 15:41 Order name: PT-INR; Complete Time: 16:53 [facility] 07/17 15:41 Order name: Troponin (emerg Dept Use Only); Complete Time: 17:43 [facility] 07/17 15:41 Order name: Urine Microscopic Only; Complete Time: 17:34 [facility] 07/17 15:41 Order name: Blood Culture Adult (2) [facility] 07/17 15:41 Order name: Procalcitonin; Complete Time: 17:23 [facility] 07/17 17:03 Order name: Urine Dipstick--Ancillary (enter results) bd 07/17 17:06 Order name: Valproic Acid (Depakene) Level; Complete Time: 17:43 [facility] 07/17 17:28 Order name: Urine Culture [facility] 07/17 15:41 Order name: XRAY Chest (1 view); Complete Time: 16:35 [facility] 07/17 15:41 Order name: EKG; Complete Time: 15:42 [facility] 07/17 15:41 Order name: Cardiac monitoring; Complete Time: 16:42 07/17 15:41 Order name: EKG - Nurse/Tech; Complete Time: 16:42 07/17 15:41 Order name: IV Saline Lock; Complete Time: 16:42 [facility] 07/17 15:41 Order name: Labs collected and sent; Complete Time: 16:42 [facility] 07/17 15:41 Order name: O2 Per Protocol; Complete Time: 16:42 07/17 15:41 Order name: O2 Sat Monitoring; Complete Time: 16:42 07/17 15:41 Order name: Urine Dipstick-Ancillary (obtain specimen); Complete Time: 18:34 [facility] 07/17 16:47 Order name: CT Head Brain wo Cont; Complete Time: 18:02 [facility] 07/17 17:28 Order name: CBC Smear Scan; Complete Time: 17:34 [facility] 07/17 17:35 Order name: Flu [facility] 07/17 15:41 Order name: Straight Cath; Complete Time: 17:31 [facility] Administered Medications: 17:55 Drug: Tylenol 650 mg Route: PO; jl7 18:34 Follow up: Response: No adverse reaction jl7 18:00 Drug: Rocephin 2 grams Route: IV; Rate: calculated rate; Site: right forearm; jl7 18:05 Follow up: Response: No adverse reaction; IV Status: Completed infusion jl7 18:12 Drug: NS 0.9% 1000 ml Route: IV; Rate: 1000 ml; Site: right forearm; jl7 18:33 Follow up: IV Status: Infusion continued upon admission jl7 Disposition: 18:40 Co-signature as Attending Physician, Ta Stevens MD. rn Disposition: 07/17/19 17:36 Hospitalization ordered by Geovanni Guzmán for Inpatient Admission. Preliminary diagnosis are Altered mental status, unspecified, Urinary tract infection, site not specified. - Bed requested for Telemetry/MedSurg (Inpatient). - Status is Inpatient Admission. jl7 - Condition is Stable. - Problem is new. - Symptoms have improved. UTI on Admission? Yes Signatures: Dispatcher [employer] EDSC Teagan Banks Roman, MD MD rn Roszak, Josh, PA PA jr8 Toan Nunez RN RN jl7 Corrections: (The following items were deleted from the chart) 16:54 16:47 Head Brain Wo Cont+CT.RAD.BRZ ordered. EDSC EDMS 17:08 16:48 VALPROIC ACID (DEPAKOTE)+C.LAB.BRZ ordered. [facility] EDSC 17:56 17:36 Hospitalization Ordered by Geovanni Guzmán MD for Inpatient Admission. Preliminary bd diagnosis is Altered mental status, unspecified; Urinary tract infection, site not specified. Bed requested for Telemetry/MedSurg (Inpatient). Status is Inpatient Admission. Condition is Stable. Problem is new. Symptoms have improved. UTI on Admission? Yes. [facility] 18:36 17:56 07/17/2019 17:36 Hospitalization Ordered by Geovanni Guzmán MD for Inpatient jl7 Admission. Preliminary diagnosis is Altered mental status, unspecified; Urinary tract infection, site not specified. Bed requested for Telemetry/MedSurg (Inpatient). Status is Inpatient Admission. Condition is Stable. Problem is new. Symptoms have improved. UTI on Admission? Yes. bd
--- NOTE | 2019-07-17 17:38 | ER ---
Nurse's Notes [facility] Name: Macrina Mason Age: 73 yrs Sex: Female : 1945 Arrival Date: 07/17/2019 Time: 15:29 Bed 16 Private MD: Diagnosis: Altered mental status, unspecified;Urinary tract infection, site not specified Presentation: 07/17 15:30 Presenting complaint: EMS states: Bilateral lower extremity weakness x 2-3 days, jl7 reports she had a severe migraine 2 days ago and took powerful painkiller and has not been feeling well since then. Transition of care: patient was not received from another setting of care. Onset of symptoms was July 15, 2019. Risk Assessment: Do you want to hurt yourself or someone else? Patient reports no desire to harm self or others. Initial Sepsis Screen: Does the patient meet any 2 criteria? No. Patient's initial sepsis screen is negative. Does the patient have a suspected source of infection? No. Patient's initial sepsis screen is negative. Care prior to arrival: Glucose check: 117 Temp 101.6, BP 130/80, HR 89, RR 16. 15:30 Method Of Arrival: EMS [facility] 15:30 Acuity: [facility] 3 jl7 Historical: - Allergies: 15:52 No Known Allergies; jl7 - Home Meds: 15:52 Amitiza 24 mcg Oral cap 1 cap 2 times per day [Active]; amitriptyline 25 mg Oral tab 1 jl7 tab 2 times per day [Active]; aspirin 325 mg Oral tab 1 tab once daily [Active]; atorvastatin 20 mg Oral tab 1 tab once daily [Active]; Bisacodyl Oral as needed [Active]; Breo Ellipta 200-25 mcg/dose inhalation dsdv 1 puff once daily [Active]; bupropion HCl 300 mg Oral Tb24 1 tab once daily [Active]; carbamazepine 200 mg Oral CM12 1 cap 2 times per day [Active]; carvedilol 6.25 mg Oral tab 1 tab 2 times per day [Active]; diclofenac sodium 75 mg Oral TbEC 1 tab 2 times per day [Active]; divalproex 500 mg Oral Tb24 1 tab once daily [Active]; donepezil 10 mg Oral tab 1 tab twice a day [Active]; duloxetine 60 mg Oral cpDR 1 cap once daily [Active]; fexofenadine 180 mg Oral tab 1 tab once daily [Active]; flaxseed oil 1,000 mg Oral cap daily [Active]; folic acid 800 mcg Oral tab 1 tab once daily [Active]; gabapentin 800 mg Oral tab 3 times per day [Active]; levothyroxine 200 mcg tab 1 tab once daily [Active]; lisinopril 2.5 mg Oral tab 1 tab twice a day [Active]; lorazepam 0.5 mg Oral tab 1 tab 2 times per day [Active]; memantine 10 mg Oral tab 1 tab 2 times per day [Active]; mirtazapine 30 mg Oral tab 1 tab once daily [Active]; oxybutynin chloride 5 mg Oral tr24 2 tabs once daily [Active]; promethazine 25 mg Oral tab 1 tab every 6 hours [Active]; topiramate 100 mg Oral CSpX 1 cap once daily [Active]; trazodone 50 mg Oral tab nightly [Active]; - PMHx: 15:52 allergies; Bipolar disorder; COPD; DVT; Schizophrenia; jl7 - PSHx: 15:52 Hysterectomy; eye surgery; both knee replacement; jl7 - Immunization history:: Adult Immunizations unknown. - Social history:: Smoking status: unknown. - Ebola Screening: : No symptoms or risks identified at this time. Screenin:30 Abuse screen: Denies threats or abuse. Denies injuries from another. Nutritional jl7 screening: No deficits noted. Tuberculosis screening: No symptoms or risk factors identified. Fall Risk Fall in past 12 months (25 points). Secondary diagnosis (15 points) IV access (20 points). Total Sandoval Fall Scale indicates High Risk Score (45 or more points). Fall prevention measures have been instituted. Side Rails Up X 2 Placed Close to Nursing Station Frequent Obs/Assessments Occuring Family Present and informed to notify staff if the need to leave the bedside As available patient and family educated on Fall Prevention Program and Strategies. Assessment: 15:30 General: Appears in no apparent distress. uncomfortable, obese, unkempt, Behavior is jl7 cooperative. Pain: Denies pain. Neuro: Level of Consciousness is awake, alert, obeys commands, Oriented to person, place, time, situation, Motor Mechanic are equal bilaterally Speech with expressive aphasia noted, Facial symmetry appears normal, Reports weakness in right leg and left leg. Cardiovascular: Patient's skin is warm and dry. Respiratory: Airway is patent Respiratory effort is even, unlabored, Respiratory pattern is regular, symmetrical. Derm: Skin is pink, warm \T\ dry. Musculoskeletal: Range of motion: intact in all extremities. 16:30 Reassessment: Patient appears in no apparent distress at this time. No changes from jl7 previously documented assessment. Patient and/or family updated on plan of care and expected duration. Pain level reassessed. Patient is alert, oriented x 3, equal unlabored respirations, skin warm/dry/pink. 17:30 Reassessment: Patient appears in no apparent distress at this time. No changes from jl7 previously documented assessment. Patient and/or family updated on plan of care and expected duration. Pain level reassessed. Patient is alert, oriented x 3, equal unlabored respirations, skin warm/dry/pink. Vital Signs: 15:58 BP 143 / 61; Pulse 89; Resp 19 S; Temp 99.4(O); Pulse Ox 97% on R/A; jl7 16:30 BP 162 / 83; Pulse 88; Resp 16 S; Temp 99.4(O); Pulse Ox 100% on R/A; jl7 17:30 BP 154 / 89; Pulse 92; Resp 19 S; Pulse Ox 99% on R/A; jl7 ED Course: 15:29 Patient arrived in ED. em 15:29 Jesús Crabtree PA is PHCP. jr8 15:30 Ta Stevens MD is Attending Physician. jr8 15:30 Patient has correct armband on for positive identification. Bed in low position. Call jl7 light in reach. Side rails up X2. monitoring and evaluation advisor on. Pulse ox on. NIBP on. 15:30 Warm blanket given. jl7 15:40 Toan Nunez, BENTON is Primary Nurse. jl7 15:45 Triage completed. jl7 15:58 Arm band placed on right wrist. jl7 16:04 XRAY Chest (1 view) In Process Unspecified. EDMS 16:05 Inserted saline lock: 22 gauge in right forearm, using aseptic technique. Blood jl7 collected. 16:05 First set of blood cultures drawn by il. Inserted saline lock: 22 gauge in right jl7 antecubital area, using aseptic technique. Blood collected. 16:30 Initial lab(s) drawn, by me, sent to lab. Second set of blood cultures drawn by me. jl7 16:45 Urine collected: straight cath specimen, cloudy. Straight cath inserted, using sterile 7 technique, 16 Fr. Specimen obtained. 17:15 EKG done, by ED staff, reviewed by Jesús JURADO. 7 17:36 Geovanni Guzmán MD is Hospitalizing Provider. jr8 17:43 CT Head Brain wo Cont In Process Unspecified. EDMS 17:45 EKG done, by ED staff, reviewed by Jesús JURADO. 3 18:34 No provider procedures requiring assistance completed. Flu and/or RSV swab sent to lab. jl7 Patient admitted, IV remains in place. intact, No redness/swelling at site. Administered Medications: 17:55 Drug: Tylenol 650 mg Route: PO; 7 18:34 Follow up: Response: No adverse reaction jl7 18:00 Drug: Rocephin 2 grams Route: IV; Rate: calculated rate; Site: right forearm; jl7 18:05 Follow up: Response: No adverse reaction; IV Status: Completed infusion jl7 18:12 Drug: NS 0.9% 1000 ml Route: IV; Rate: 1000 ml; Site: right forearm; jl7 18:33 Follow up: IV Status: Infusion continued upon admission jl7 Outcome: 17:36 Decision to Hospitalize by Provider. jr8 18:34 Admitted to Tele accompanied by [facility], via stretcher, room 207, with chart, Report jl7 called to BENTON Saldivar 18:34 Condition: stable 18:34 Discharge instructions given to patient, family, Instructed on the need for admit, Demonstrated understanding of instructions. 18:36 Patient left the ED. jl7 Signatures: Dispatcher [employer] EDMS Kevin Guevara RN Jesús Shi PA PA jr8 Leal, Jahala, RN RN jl7 Herrera, Deanna on license of [facility] Corrections: (The following items were deleted from the chart) 18:09 17:30 EKG done, by ED staff, reviewed by Jesús gustafson 18:09 16:45 EKG done, by ED staff, reviewed by Jesús gustafson
[2019-07-17] MEDS ORDERED: NA CHLORIDE 0.9% 1,000 ML ONE (17:39)
[2019-07-17] MEDS ORDERED: CEFTRIAXONE/SWI 1gm 2 GM/20 ML SYR ONE (17:39)
[2019-07-17 17:42] LABS: ALT/SGPT 24 U/L (12-78); AST/SGOT 20 U/L (15-37); Albumin 2.8 g/dL (3.4-5.0); Alkaline Phosphatase 137 U/L (45-117); BUN Blood Urea Nitrogen 34 mg/dL (7-18); Bicarbonate 25 mmol/L (21-32); Bilirubin Direct 0.1 mg/dL (0-0.2); Bilirubin Total 0.4 mg/dL (0.2-1.0); Glucose Level 93 mg/dL (74-106); Magnesium 2.1 mg/dL (1.8-2.4); NT PRO-BNP 4154 pg/mL (<125); Potassium 4.6 mmol/L (3.5-5.1); Protein, Total 6.7 g/dL (6.4-8.2); Sodium Level 143 mmol/L (136-145); Troponin (Emerg Dept Use Only) < 0.02 ng/mL (0.0-0.045)
--- NOTE | 2019-07-17 17:51 | RAD REPORT ---
EXAM DESCRIPTION: CT - Head Brain Wo Cont - 07/17/2019 5:42 pm CLINICAL HISTORY: Bilateral lower extremity weakness COMPARISON: CT head January 2019 TECHNIQUE: Axial 5 mm thick images of the head were obtained without IV contrast. All CT scans are performed using dose optimization technique as appropriate and may include automated exposure control or mA/KV adjustment according to patient size. FINDINGS: No intracranial hemorrhage, mass, edema or shift of mid-line structures. No acute infarcti on changes seen. No cortical edema or sulcal effacement. Mild atrophy and chronic ischemic changes ar e present matching comparison. Ventricles are in proportion. Mastoid air cells are clear. Chronic right maxillary sinus mucosal thickening and wall thickening not ed. No acute bony findings. IMPRESSION: No acute intracranial finding. Atrophy and chronic ischemic changes match comparison. Chronic right-sided maxillary sinus changes.
[2019-07-17] MEDS: NA CHLORIDE 0.9% 1,000 ML IV SCH (18:28)
[2019-07-17] MEDS ORDERED: ACETAMINOPHEN 500 MG TAB PO PRN (18:28)
[2019-07-17 18:49] VITALS: BMI 34.8
[2019-07-17] MEDS ORDERED: CHLORHEXIDINE GLUCO 4% 120 ML TOP SCH (19:00)
--- NOTE | 2019-07-17 19:23 | RAD REPORT ---
EXAM DESCRIPTION: CT - Abdomen Pelvis Wo Contrast - 07/17/2019 7:01 pm CLINICAL HISTORY: abdominal pain COMPARISON: Abdomen Pelvis Wo Contrast dated 03/21/2019 TECHNIQUE: Axial [address] imaging of the abdomen and pelvis was performed without IV contrast. No IV contrast was given because of allergy, abnormal renal function, patient refusal or physician re quest. No oral contrast. All CT scans are performed using dose optimization technique as appropriate and may include automated exposure control or mA/KV adjustment according to patient size. FINDINGS: No suspicious findings in the lung bases. The liver, spleen and pancreas show no suspicious findings on non-contrast imaging. Gallbladder and b iliary tree are also without suspicious finding. No hydronephrosis or suspicious renal mass. No significant adrenal finding. Isodense renal masses an d pyelonephritis cannot be excluded in the absence of IV contrast. Uterus is absent. Ovaries are abse nt or atrophic. No adnexal mass. Urinary bladder is only partially filled. Bladder wall does not appear abnormally thickened. A puncta te air density is seen along the anterior wall of the bladder. This is difficult to determine if this is in the lumen, in the wall or within a diverticulum of abutting bowel. Patient had a similar findi ng in March 2019. This is potentially air from a catheterization procedure. Air from an infectiou s process is a possibility. No dilated bowel loops or bowel wall thickening. No free air, free fluid or inflammatory stranding. No hernia, mass or bulky lymphadenopathy. No suspicious bony findings. Degenerative changes are present. IVC filter is in place. Vascular calci fications are seen. IMPRESSION: Non-contrast enhanced CT abdomen and pelvis imaging show no significant or suspicious fi nding. Single punctate air density in the urinary bladder may be from recent instrumentation or catheterizat ion. Punctate air density from an infectious process in the bladder is possible. A similar finding wa s seen in March 2019. Full assessment is limited is the absence of IV contrast.
[2019-07-17 20:10] LABS: Urine Blood 2+ (NEG); Urine Glucose NEGATIVE (NEG); Urine Protein 2+ (NEG); Urine pH 6.5 (5.0-7.0)
[2019-07-17] MEDS: NYSTATIN PWDR 100000 UNIT/GM TOP SCH (21:00)
[2019-07-17] MEDS: HYDROCODONE/APAP 10/325 TAB PO PRN (21:41)
--- NOTE | 2019-07-18 00:10 | HP ---
Date of Admission: 07/17/2019 Code Status: Full. Chief Complaint: Altered mental status. Primary Care Physician: Dr. Alegre. History Of Present Illness: Patient is a 73-year-old female with past medical history of bipolar dis order, schizophrenia, chronic kidney disease stage 3, hypertension, hyperlipidemia, dementia, chronic pain, comes in with decreased mental status. Patient is a very poor historian. Most of the history is taken from the previous records, ER staff, and some by the patient. The patient's symptoms began 2 days prior to admission, not worsened by anything. Patient has had some confusion. No falls. Ortega beltran was brought into the ER and was found to have UTI. White blood cell count was positive, howeve r, procalcitonin was 27. The patient's kidney function was around her baseline. Troponin was negati ve. Head CT scan did not show any acute changes. Chest x-ray showed no acute cardiopulmonary proces s. Patient was then referred for admission. When seen in the ER, she was awake, alert, oriented x3, in some mild distress. Past Medical History: Hypertension, hypothyroidism, hyperlipidemia, history of DVT, COPD, schizophre raudel, bipolar disorder, atrial fibrillation, not a candidate for anticoagulation, dementia, chronic pa in with neuropathy. Surgical History: Complete hysterectomy. Allergies: NO KNOWN DRUG ALLERGIES. Medications: List reviewed. Social History: No current tobacco use, alcohol use, or illicit drug use. Lives at home. , uses a walker for ambulation. Family History: Mother has lung disease and diabetes as well as COPD. Father has heart disease and had quadruple bypass. Review of Systems: Limited due to patient's medical condition. Otherwise, as per HPI. Physical Examination: Vital Signs: Blood pressure 143/61, pulse 89, respirations 19, temperature 99.4, O2 97% on room air. General: Awake, alert, and oriented x3, in some mild distress, ill-appearing female, obese, elderly. HEENT: Normocephalic, atraumatic. PERRLA. EOMI. Dry mucous membranes. Oropharynx is clear. Poor dentition. Conjunctivae are anicteric. Neck: Supple. No JVD. Trachea midline. CV: S1, S2, irregularly irregular. Peripheral pulses are present. Respiratory: Diminished breath sounds at the bases. Poor inspiratory effort, otherwise moving air w ell bilaterally at the apices. No wheezing or stridor. Gastrointestinal: Abdomen is soft. Mild tenderness to palpation in the epigastric region. No rebou nd or guarding. Positive bowel sounds. Extremities: No clubbing, cyanosis. The patient has trace edema. No calf tenderness. Neuro: Cranial nerves 2 through 12 intact grossly. No focal neurological deficit. Moves all 4 extr emities. Speech is normal. Patient does appear to be confused, repeating multiple phrases. Psych: Mood is dysphoric. Judgment is poor. Insight is also poor. Affect is congruent with mood. Laboratory Data: Valproic acid level is 26. UA shows [id number] wbc's, loaded bacteria. Microscopy is pending. Sodium 143, potassium 4.6, chloride 112, CO2 of 25, BUN 34, creatinine 1.69, glucose 93, calcium 8.8, magnesium 2.1. Troponin less than 0.02, BNP 4154, albumin 2.8, procalciton in 27.92. INR 1.04. WBC 7.6, H and H 10.7 and 32.5, platelets 124, neutrophils 86%. Imaging Studies: CT scan of the head shows no acute intracranial finding. Atrophy and chronic ische phil changes match comparison, chronic right-sided maxillary sinus changes. Chest x-ray shows no acut e cardiopulmonary process. No significant change from previous. Assessment: A 73-year-old female with, 1.Acute metabolic encephalopathy, likely related to urinary tract infection. We will place on fall precautions. 2.Acute cystitis without hematuria. Patient received Rocephin, we will continue. We will obtain ur ine culture and followup. 3.Atrial fibrillation, paroxysmal. Patient is not a candidate for anticoagulation. We will continu e with rate control. 4.Chronic kidney disease. Creatinine is somewhat above baseline of 1.3, 1.4. 5.Essential hypertension. We will resume home medications as appropriate. 6.Hypothyroidism. Continue Synthroid. 7.History of deep venous thrombosis, currently not on any anticoagulation. 8.Chronic obstructive pulmonary disease, chronic bronchitis. We will continue with nebulizer treatm ents. 9.History of schizophrenia. 10.Bipolar disorder, stable. 11.Mixed hyperlipidemia. Continue statin. 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 No behavioral disturbance. 13.Chronic pain with neuropathy. 14.Abdominal pain, epigastric. We will obtain CT scan of the abdomen and pelvis. Patient unable to describe her pain or answer questions regarding her abdomen. 15.Deep vein thrombosis prophylaxis with Lovenox renally dosed. Plan: Admit patient to Med-Surg, place as inpatient. Length of stay greater than 2 midnights. [facility] Voice ID: [id number]
[2019-07-18] MEDS: HYDROCODONE/APAP 10/325 TAB PO PRN ×3 (02:43→20:47)
[2019-07-18] MEDS: NA CHLORIDE 0.9% 1,000 ML IV SCH ×3 (05:28→17:43)
[2019-07-18 05:48] LABS: Absolute Lymphocytes (CBC) 0.6 K/uL (0.7-4.9); Basophils % 0.4 % (0-1.3); Hematocrit 25.6 % (36.0-45.0); Lymphocytes % 10.3 % (15.3-44.8); MPV 8.4 fL (7.6-11.3)
[2019-07-18 06:15] LABS: Albumin 2.1 g/dL (3.4-5.0); Bilirubin Total 0.3 mg/dL (0.2-1.0); Potassium 4.3 mmol/L (3.5-5.1); Protein, Total 5.1 g/dL (6.4-8.2)
[2019-07-18 07:21] LABS: Blood Morphology Comment NOT SEEN (NOT SEEN); Platelet Estimate DECR; Urine White Blood Cell Casts OK
[2019-07-18] MEDS ORDERED: CEFTRIAXONE 1 GM/NS 50 ML 1 GM/50 ML BAG IV SCH (09:00)
[2019-07-18] MEDS: NYSTATIN PWDR 100000 UNIT/GM TOP SCH ×2 (09:16→20:49)
[2019-07-18] MEDS: ENOXAPARIN 30 MG/0.3 ML SQ SCH (09:16)
[2019-07-18] MEDS: CEFTRIAXONE/SWI 1gm 1 GM/10 ML SYR IV SCH (09:17)
--- NOTE | 2019-07-18 13:31 | P.PN ---
Subjective Date of Service: 07/18/19 headache, fatigue. poor appetite. dw patient and son at bedside. Review of Systems 10-point ROS is otherwise unremarkable General: Fever, Chills, Malaise Physical Examination - Vital Signs Temperature: 97.3 F Blood Pressure: 180/72 Pulse: 81 Respirations: 16 Pulse Ox (%): 99 - Physical Exam General: Alert, In no apparent distress HEENT: Atraumatic, PERRLA, EOMI Neck: Supple, JVD not distended Respiratory: Clear to auscultation bilaterally, Normal air movement Cardiovascular: Regular rate/rhythm, Normal S1 S2 Gastrointestinal: Normal bowel sounds, No tenderness Musculoskeletal: No tenderness Integumentary: No rashes Neurological: Normal speech, Normal tone, Normal affect Lymphatics: No axilla or inguinal lymphadenopathy - Studies Laboratory Data (last 24 hrs) 07/17/19 16:30: PT 12.3, INR 1.04 07/17/19 16:30: WBC 7.6, Hgb 10.7 L, Hct 32.5 L, Plt Count 124 L 07/17/19 16:30: Sodium 143, Potassium 4.6, BUN 34 H, Creatinine 1.69 H, Glucose 93, Magnesium 2.1, Total Bilirubin 0.4, AST 20, ALT 24, Alkaline Phosphatase 137 H Assessment And Plan - Plan Ms. Mason is 73 y/o female pw AMS #Acute metabolic encephalopathy,-likely related to urinary tract infection. - treat underlying infection -continue fall precaition #Acute cystitis without hematuria- Urine culture with GNR > 100K colon, await final culture - continue rocephin -follow VS and blood culture #Atrial fibrillation, paroxysmal- currently in NSR - Patient is not a candidate for anticoagulation. We will continue with rate control. #Chronic kidney disease.-Creatinine is close to baseline - continue IVF #Essential hypertension- resume home medications as appropriate. #Hypothyroidism- Continue Synthroid. #History of deep venous thrombosis, currently not on any anticoagulation. #Chronic obstructive pulmonary disease, chronic bronchitis-stable -We will continue with nebulizer treatments PRN #History of schizophrenia. #Bipolar disorder, stable. #Mixed hyperlipidemia. Continue statin. 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 No behavioral disturbance. #Chronic pain with neuropathy. #Deep vein thrombosis prophylaxis with Lovenox renally dosed.
[2019-07-18 18:24] LABS: Absolute Lymphocytes (CBC) 0.6 K/uL (0.7-4.9); Basophils % 0.4 % (0-1.3); Hematocrit 27.3 % (36.0-45.0); Lymphocytes % 11.6 % (15.3-44.8); MPV 9.1 fL (7.6-11.3); RBC Red Blood Cell Count 2.85 M/uL (3.86-4.86)
[2019-07-18 19:30] LABS: Blood Morphology Comment NOTED (NOT SEEN); Platelet Estimate DECR; Poikilocytosis 1+; Urine White Blood Cell Casts OK
--- NOTE | 2019-07-18 20:58 | EKG ---
Test Date: 2019-07-17 Test Time: 17:44:22 Computer Peripheral Equipment Operator: DARYL MEASUREMENT RESULTS: Intervals: Rate: 101 [place]: QRSD: 106 QT: 348 QTc: 451 [place]: P: [place]: QRS: -55 T: 68 INTERPRETIVE STATEMENTS: Atrial fibrillation with rapid ventricular response Left anterior fascicular block Cannot rule out Anterior infarct, age undetermined Abnormal ECG Compared to ECG 07/17/2019 16:37:44 Sinus rhythm no longer present Myocardial infarct finding still present Electronically Signed On 07-18-19 20:55:18 FORM SETTER/DRIVER by Cuba Sotelo
--- NOTE | 2019-07-18 20:58 | EKG ---
Test Date: 2019-07-17 Test Time: 16:37:44 Fire Management Technician: JÚNIOR MEASUREMENT RESULTS: Intervals: Rate: 88 [place]: 166 QRSD: 106 QT: 364 QTc: 440 [place]: P: 12 [place]: 166 QRS: -46 T: 74 INTERPRETIVE STATEMENTS: Normal sinus rhythm Left anterior fascicular block Cannot rule out Anterior infarct, age undetermined Abnormal ECG Compared to ECG 03/21/2019 23:08:44 Left anterior fascicular block now present Sinus bradycardia no longer present Atrial premature complex(es) no longer present Left ventricular hypertrophy no longer present Myocardial infarct finding still present Electronically Signed On 07-18-19 20:55:22 TRAY FILLER by Cuba Sotelo
[2019-07-19] MEDS: HYDROCODONE/APAP 10/325 TAB PO PRN ×3 (03:55→18:38)
[2019-07-19] MEDS: NA CHLORIDE 0.9% 1,000 ML IV SCH ×3 (05:02→22:10)
[2019-07-19 05:52] LABS: Absolute Lymphocytes (CBC) 0.8 K/uL (0.7-4.9); Basophils % 0.3 % (0-1.3); Hematocrit 25.2 % (36.0-45.0); Lymphocytes % 15.5 % (15.3-44.8); MPV 8.6 fL (7.6-11.3); RBC Red Blood Cell Count 2.66 M/uL (3.86-4.86)
[2019-07-19 06:17] LABS: Albumin 2.1 g/dL (3.4-5.0); Bilirubin Total 0.3 mg/dL (0.2-1.0); Magnesium 1.9 mg/dL (1.8-2.4); Potassium 4.5 mmol/L (3.5-5.1); Protein, Total 5.4 g/dL (6.4-8.2)
[2019-07-19] MEDS: CEFTRIAXONE/SWI 1gm 1 GM/10 ML SYR IV SCH (08:23)
[2019-07-19] MEDS: NYSTATIN PWDR 100000 UNIT/GM TOP SCH ×2 (08:24→21:46)
[2019-07-19] MEDS: ENOXAPARIN 30 MG/0.3 ML SQ SCH (09:00)
--- NOTE | 2019-07-19 11:02 | P.PN ---
Subjective Date of Service: 07/19/19 PT at bedside. Still with body aches, improved. Mental status has improved. Physical Examination - Vital Signs Temperature: 97 F Blood Pressure: 140/86 Pulse: 73 Respirations: 20 Pulse Ox (%): 94 - Physical Exam General: Alert, In no apparent distress, Obese HEENT: Atraumatic, PERRLA, EOMI Neck: Supple, JVD not distended Respiratory: Clear to auscultation bilaterally, Normal air movement Cardiovascular: Regular rate/rhythm, Normal S1 S2 Gastrointestinal: Normal bowel sounds, No tenderness Musculoskeletal: No tenderness Integumentary: No rashes Neurological: Normal speech, Normal affect - Studies Laboratory Tests 07/19/19 07/19/19 05:28 05:28 WBC 5.3 Hgb 8.5 L Hct 25.2 L Plt Count 97 L Sodium 143 Potassium 4.5 BUN 23 H Creatinine 1.32 H Alkaline Phosphatase 150 H Microbiology Data (last 24 hrs): 07/17/19 16:58 Clean Catch Urine [place] Count - Final >100,000 CFU/ML. 07/17/19 16:58 Clean Catch Urine - Final Escherichia Coli 07/17/19 16:05 Blood - Blood Gram Stain - Final 07/17/19 16:30 Blood - Blood Gram Stain - Final Medications List Reviewed: Yes Assessment And Plan - Plan Ms. Mason is 73 y/o female pw AMS #Acute metabolic encephalopathy,-likely related to urinary tract infection. - treat underlying infection -continue fall precaution #Acute cystitis without hematuria- Urine culture with Ecoli - continue rocephin -follow VS and blood culture #Atrial fibrillation, paroxysmal- currently in NSR - Patient is not a candidate for anticoagulation. We will continue with rate control. #Chronic kidney disease.-Creatinine is close to baseline - continue IVF, improving. #Essential hypertension- resume home medications as appropriate. #Hypothyroidism- Continue Synthroid. #History of deep venous thrombosis, currently not on any anticoagulation. #Chronic obstructive pulmonary disease, chronic bronchitis-stable -We will continue with nebulizer treatments PRN #History of schizophrenia. #Bipolar disorder, stable. #Mixed hyperlipidemia. Continue statin. 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 No behavioral disturbance. #Chronic pain with neuropathy. #Deep vein thrombosis prophylaxis with SCD. patient with thrombocytopenia PT/OT
[2019-07-19] MEDS: ONDANSETRON 4 MG/2 ML VIAL IV PRN (17:59)
[2019-07-20] MEDS: HYDROCODONE/APAP 10/325 TAB PO PRN ×4 (01:05→23:36)
[2019-07-20 06:21] LABS: Absolute Lymphocytes (CBC) 0.9 K/uL (0.7-4.9); Basophils % 0.3 % (0-1.3); Bilirubin Total 0.3 mg/dL (0.2-1.0); Hematocrit 26.5 % (36.0-45.0); Lymphocytes % 15.4 % (15.3-44.8); MPV 8.4 fL (7.6-11.3); Magnesium 1.7 mg/dL (1.8-2.4); Potassium 4.7 mmol/L (3.5-5.1); Protein, Total 5.4 g/dL (6.4-8.2); RBC Red Blood Cell Count 2.82 M/uL (3.86-4.86)
[2019-07-20] MEDS: CEFTRIAXONE/SWI 1gm 1 GM/10 ML SYR IV SCH (09:03)
[2019-07-20] MEDS: NYSTATIN PWDR 100000 UNIT/GM TOP SCH ×2 (09:04→21:50)
--- NOTE | 2019-07-20 11:03 | P.PN ---
Subjective Date of Service: 07/20/19 Patient is more alert. complains "I'm not better", unable to elaborate. "They keep poking me" Physical Examination - Vital Signs Temperature: 97.6 F Blood Pressure: 179/80 Pulse: 71 Respirations: 18 Pulse Ox (%): 98 - Physical Exam General: Alert, In no apparent distress, Obese HEENT: Atraumatic, PERRLA, EOMI Neck: Supple, JVD not distended Respiratory: Clear to auscultation bilaterally, Normal air movement Cardiovascular: Regular rate/rhythm, Normal S1 S2 Gastrointestinal: Normal bowel sounds, No tenderness Musculoskeletal: No tenderness Integumentary: No rashes Neurological: Normal speech, Normal tone, Normal affect Lymphatics: No axilla or inguinal lymphadenopathy - Studies Laboratory Tests 07/20/19 07/20/19 07/20/19 05:30 05:30 05:30 WBC 6.1 D RBC 2.82 L Hgb 8.9 L Plt Count 109 L Sodium 141 Potassium 4.7 Chloride 112 H Glucose 74 Magnesium 1.7 L Alkaline Phosphatase 159 H Procalcitonin 4.44 H Microbiology Data (last 24 hrs): 07/17/19 16:05 Blood - Blood Gram Stain - Final 07/17/19 16:30 Blood - Blood Gram Stain - Final 07/17/19 16:58 Clean Catch Urine [place] Count - Final >100,000 CFU/ML. 07/17/19 16:58 Clean Catch Urine - Final Escherichia Coli 07/20/19 Microbiology 07/17/19 16:30 Blood - Blood Gram Stain - Final 07/17/19 16:05 Blood - Blood Gram Stain - Final 07/17/19 16:30 Blood - Blood Aerobic Blood Culture - Preliminary 07/17/19 16:30 Blood - Blood Anaerobic Blood Culture - Preliminary Escherichia Coli 07/17/19 16:05 Blood - Blood Aerobic Blood Culture - Preliminary 07/17/19 16:05 Blood - Blood Anaerobic Blood Culture - Preliminary Escherichia Coli Microbiology 07/17/19 16:58 Clean Catch Urine [place] Count - Final 07/17/19 16:58 Clean Catch Urine - Final Escherichia Coli >100,000 CFU/ML. Medications List Reviewed: Yes Assessment And Plan - Plan Ms. Mason is 73 y/o female pw AMS #Acute metabolic encephalopathy,-likely related to urinary tract infection/ bacteremia. - treat underlying infection -continue fall precaution -significantly improved #Ecoli Bacteremia- from UTI. - Continue IV abx -repeat blood cultures, pending. #Acute cystitis without hematuria- Urine culture with Ecoli - continue rocephin -follow VS #Atrial fibrillation, paroxysmal- currently in NSR - Patient is not a candidate for anticoagulation. We will continue with rate control. #Chronic kidney disease.-Creatinine is close to baseline - continue IVF, resolved #Essential hypertension- resume home medications as appropriate. #Hypothyroidism- Continue Synthroid. #History of deep venous thrombosis, currently not on any anticoagulation. #Chronic obstructive pulmonary disease, chronic bronchitis-stable -We will continue with nebulizer treatments PRN #History of schizophrenia. #Bipolar disorder, stable. #Mixed hyperlipidemia. Continue statin. 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 No behavioral disturbance. #Chronic pain with neuropathy. #Deep vein thrombosis prophylaxis with SCD. patient with thrombocytopenia PT/OT Dispo- to SNF once repeat blood culture results. Discharge Plan: Custodial
[2019-07-20] MEDS: NA CHLORIDE 0.9% 1,000 ML IV SCH ×2 (13:08→21:48)
[2019-07-21] MEDS: NA CHLORIDE 0.9% 1,000 ML IV SCH (00:31)
[2019-07-21] MEDS: ONDANSETRON 4 MG/2 ML VIAL IV PRN (03:32)
[2019-07-21 05:25] LABS: Basophils % 0.3 % (0-1.3); Hematocrit 26.9 % (36.0-45.0); Lymphocytes % 16.9 % (15.3-44.8); MPV 7.9 fL (7.6-11.3)
[2019-07-21 05:29] LABS: Potassium 4.3 mmol/L (3.5-5.1)
[2019-07-21] MEDS: NYSTATIN PWDR 100000 UNIT/GM TOP SCH ×2 (08:21→20:50)
[2019-07-21] MEDS: HYDROCODONE/APAP 10/325 TAB PO PRN ×2 (08:21→20:49)
[2019-07-21] MEDS: CEFTRIAXONE/SWI 1gm 1 GM/10 ML SYR IV SCH (08:21)
--- NOTE | 2019-07-21 10:31 | P.PN ---
Subjective Date of Service: 07/21/19 Subjective: Working w/ PT, Doing well improving. Lower back pain. Physical Examination - Vital Signs Temperature: 97.7 F Blood Pressure: 150/70 Pulse: 83 Respirations: 20 Pulse Ox (%): 100 - Physical Exam General: Alert, In no apparent distress HEENT: Atraumatic, PERRLA, EOMI Neck: Supple, JVD not distended Respiratory: Clear to auscultation bilaterally, Normal air movement Cardiovascular: Regular rate/rhythm, Normal S1 S2 Gastrointestinal: Normal bowel sounds, No tenderness Musculoskeletal: No tenderness Integumentary: No rashes Neurological: Normal speech, Normal tone, Normal affect Lymphatics: No axilla or inguinal lymphadenopathy - Studies Laboratory Tests 07/21/19 07/21/19 07/21/19 04:46 04:51 04:51 WBC 6.2 RBC 2.90 L Hgb 9.3 L Hct 26.9 L Plt Count 112 L Sodium 142 Potassium 4.3 Chloride 111 H Carbon Dioxide 23 BUN 10 Creatinine 1.04 Magnesium 1.7 L Microbiology Data (last 24 hrs): 07/17/19 16:05 Blood - Blood Gram Stain - Final 07/17/19 16:30 Blood - Blood Gram Stain - Final Microbiology 07/20/19 09:16 Blood - Blood Anaerobic Blood Culture - Final 07/20/19 09:16 Blood - Blood Anaerobic Blood Culture - Final 07/17/19 16:58 Clean Catch Urine [place] Count - Final 07/17/19 16:58 Clean Catch Urine - Final Escherichia Coli >100,000 CFU/ML. 07/17/19 16:30 Blood - Blood Gram Stain - Final 07/17/19 16:05 Blood - Blood Gram Stain - Final 07/20/19 09:16 Blood - Blood Aerobic Blood Culture - Preliminary 07/20/19 09:16 Blood - Blood No growth in 24 hours. 07/20/19 09:16 Blood - Blood Aerobic Blood Culture - Preliminary 07/20/19 09:16 Blood - Blood No growth in 24 hours. 07/17/19 16:30 Blood - Blood Aerobic Blood Culture - Preliminary 07/17/19 16:30 Blood - Blood Anaerobic Blood Culture - Preliminary Escherichia Coli 07/17/19 16:05 Blood - Blood Aerobic Blood Culture - Preliminary 07/17/19 16:05 Blood - Blood Anaerobic Blood Culture - Preliminary Escherichia Coli Medications List Reviewed: Yes Assessment And Plan - Plan Ms. Mason is 73 y/o female pw AMS #Acute metabolic encephalopathy,-likely related to urinary tract infection/ bacteremia. - treat underlying infection -continue fall precaution -significantly improved #Ecoli Bacteremia- from UTI. - Continue IV abx -repeat blood cultures, pending. #Acute cystitis without hematuria- Urine culture with Ecoli - continue rocephin -follow VS #Atrial fibrillation, paroxysmal- currently in NSR - Patient is not a candidate for anticoagulation. We will continue with rate control. #Chronic kidney disease.-Creatinine is close to baseline - continue IVF, resolved #Essential hypertension- resume home medications as appropriate. #Hypothyroidism- Continue Synthroid. #History of deep venous thrombosis, currently not on any anticoagulation. #Chronic obstructive pulmonary disease, chronic bronchitis-stable -We will continue with nebulizer treatments PRN #History of schizophrenia. #Bipolar disorder, stable. #Mixed hyperlipidemia. Continue statin. 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 No behavioral disturbance. #Chronic pain with neuropathy. #Deep vein thrombosis prophylaxis with SCD. patient with thrombocytopenia PT/OT Dispo- to SNF once repeat blood culture results. Discharge Plan: Jail
[2019-07-21] MEDS ORDERED: POLYVINYL ALCOHOL 1.4% 15 ML EACH EYE PRN (12:32)
[2019-07-21] MEDS ORDERED: HYDRALAZINE HCL 20 MG/ML VIAL IV PRN (12:37)
--- NOTE | 2019-07-21 15:25 | P.DS ---
Admission Date: 07/17/19 Discharge Date: 07/23/19 Disposition: TRANSFER TO [facility] Discharge Condition: GOOD Reason for Admission: AMS - Problems (1) Bacteremia due to Escherichia coli Current Visit: Yes Status: Acute (2) UTI (urinary tract infection) Onset Date: 03/16/18 Current Visit: No Status: Acute Qualifiers: Urinary tract infection type: acute cystitis Hematuria presence: without hematuria Qualified Code(s): N30.00 - Acute cystitis without hematuria (3) Chronic pain Current Visit: No Status: Chronic Qualifiers: Chronic pain type: chronic pain syndrome Qualified Code(s): G89.4 - Chronic pain syndrome (4) Dementia Onset Date: 10/22/14 Current Visit: No Status: Chronic Qualifiers: Dementia type: unspecified type Dementia behavioral disturbance: without behavioral disturbance Qualified Code(s): F03.90 - Unspecified dementia without behavioral disturbance Hospital Course: Ms. Mason is 73-year-old female with past medical history of bipolar disorder , schizophrenia, chronic kidney disease stage 3, hypertension, hyperlipidemia, dementia, chronic pain, presented with decreased mental status. Initial evaluation found patient to have UTI and she was initiated on antibiotics. Urine culture grew cephalosporin sensitive E coli. Blood culture subsequently grew cephalosporin sensitive E coli as well and patient responded adequately to IV antibiotics. Repeat blood culture is negative. Patient's mental status returned to baseline. She underwent physical and occupational therapy, recommended for alf facility. She will be discharged to SNF with oral antibiotics to complete for 14 days. She remained hemodynamically stable for discharge. Vital Signs/Physical Exam: Temp Pulse Resp BP Pulse Ox 97.7 F 83 20 150/70 H 100 07/21/19 12:35 07/21/19 12:35 07/21/19 12:35 07/21/19 12:35 07/21/19 12:35 General: Alert, In no apparent distress, Obese HEENT: Atraumatic, PERRLA, EOMI Neck: Supple, JVD not distended Respiratory: Clear to auscultation bilaterally, Normal air movement Cardiovascular: Regular rate/rhythm, Normal S1 S2 Gastrointestinal: Normal bowel sounds, No tenderness Musculoskeletal: Tenderness (chronic) Integumentary: No rashes Neurological: Normal speech, Normal tone, Normal affect Lymphatics: No axilla or inguinal lymphadenopathy Laboratory Data at Discharge: WBC 6.2 K/uL (4.3-10.9) 07/21/19 04:51 Hgb 9.3 g/dL (12.0-15.0) L 07/21/19 04:51 Hct 26.9 % (36.0-45.0) L 07/21/19 04:51 Plt Count 112 K/uL (152-406) L 07/21/19 04:51 PT 12.3 SECONDS (9.5-12.5) 07/17/19 16:30 INR 1.04 07/17/19 16:30 Sodium 142 mmol/L (136-145) 07/21/19 04:51 Potassium 4.3 mmol/L (3.5-5.1) 07/21/19 04:51 BUN 10 mg/dL (7-18) 07/21/19 04:51 Creatinine 1.04 mg/dL (0.55-1.3) 07/21/19 04:51 Glucose 82 mg/dL (74-106) 07/21/19 04:51 Magnesium 1.7 mg/dL (1.8-2.4) L 07/21/19 04:46 Total Bilirubin 0.3 mg/dL (0.2-1.0) 07/20/19 05:30 AST 34 U/L (15-37) 07/20/19 05:30 ALT 30 U/L (12-78) 07/20/19 05:30 Alkaline Phosphatase 159 U/L (45-117) H 07/20/19 05:30 Home Medications: Aspirin 325 mg PO Q6HP PRN 07/18/19 Diclofenac Sodium 75 mg PO BID 07/18/19 Divalproex Sodium 500 mg PO BID 07/18/19 Donepezil HCl 10 mg PO BID 07/18/19 Duloxetine HCl 60 mg PO DAILY 07/18/19 Flaxseed Oil 1,000 mg PO DAILY 07/18/19 Fluticasone/Vilanterol [Breo Ellipta 200-25 Mcg INH] 1 each IH PRN 07/18/19 Folic Acid 0.4 mg PO DAILY 07/18/19 Gabapentin 800 mg PO TID 07/18/19 Hydrocodone Bit/Acetaminophen [Hydrocodon-Acetaminophen 5-325] 1 each PO Q6HP PRN 07/18/19 Levothyroxine Sodium 25 mcg PO [id number] 07/18/19 Memantine HCl 10 mg PO BID 07/18/19 Mirtazapine 30 mg PO BEDTIME 07/18/19 Oxybutynin Chloride 5 mg PO BID 07/18/19 Promethazine HCl 25 mg PO Q6HP PRN 07/18/19 Propranolol HCl 20 mg PO BID 07/18/19 Sumatriptan [Imitrex*] 100 mg PO PRN 07/18/19 Tizanidine [Zanaflex*] 4 mg PO BID 07/18/19 Trazodone [Desyrel*] 50 mg PO BEDTIME 07/18/19 Cephalexin [Keflex] 500 mg PO Q6HR 14 Days #56 cap 07/21/19 Diphenhydramine [Benadryl*] 25 mg PO DAILY PRN 07/21/19 New Medications: Cephalexin [Keflex] 500 mg PO Q6HR 14 Days #56 cap Diet: Regular Activity: Ad jimi Followup: Unknown,U [Primary Care Provider] - 1 Week
[2019-07-21] MEDS: PROPRANOLOL HCL 10 MG TAB PO SCH (20:50)
[2019-07-21] MEDS: ALBUTEROL 2.5 MG/3 ML NEB SOL NEB PRN (23:05)
[2019-07-21] MEDS: IPRATROPIUM BROM 0.5MG/2.5ML NEB PRN (23:05)
[2019-07-22] MEDS ORDERED: TEMAZEPAM 15 MG CAP PO PRN (00:07)
[2019-07-22] MEDS: CEPHALEXIN 250 MG CAP PO SCH ×2 (01:13→06:13)
[2019-07-22] MEDS: ALBUTEROL 2.5 MG/3 ML NEB SOL NEB PRN ×2 (06:10→10:30)
[2019-07-22] MEDS: IPRATROPIUM BROM 0.5MG/2.5ML NEB PRN ×2 (06:10→10:30)
[2019-07-22 07:59] VITALS: O2SAT 99
[2019-07-22] MEDS: PROPRANOLOL HCL 10 MG TAB PO SCH (08:33)
[2019-07-22] MEDS: NYSTATIN PWDR 100000 UNIT/GM TOP SCH (08:34)
[2019-07-22] MEDS ORDERED: ONDANSETRON 4 MG (ODT) TAB PO ONE (09:00)
[2019-07-22] MEDS ORDERED: CEPHALEXIN 500 MG CAP PO SCH (12:00)
[2019-07-22 12:44] VITALS: BP 136/75; TEMP 96.8
== END 2019-07-22 12:49 | DRG 689 ==
LOC: ER 15:21 → ERHOLD 17:44 → 2ND 18:20
PROVIDERS: ADMIT Family Medicine; ATTEND Hospitalist
DX: N30.00 Acute cystitis without hematuria (principal); G93.41 Metabolic encephalopathy; R78.81 Bacteremia; I12.9 Hypertensive chronic kidney disease with stage 1 through stage 4 chronic kidney disease, or unspecified chronic kidney disease; N18.3 Chronic kidney disease, stage 3 (moderate); E03.9 Hypothyroidism, unspecified; J42 Unspecified chronic bronchitis; F20.9 Schizophrenia, unspecified; F31.9 Bipolar disorder, unspecified; G89.4 Chronic pain syndrome; G62.9 Polyneuropathy, unspecified; F01.50 Vascular dementia, unspecified severity, without behavioral disturbance, psychotic disturbance, mood disturbance, and anxiety; R10.13 Epigastric pain; E78.2 Mixed hyperlipidemia; B96.20 Unspecified Escherichia coli [E. coli] as the cause of diseases classified elsewhere; I48.0 Paroxysmal atrial fibrillation; Z86.718 Personal history of other venous thrombosis and embolism
CPT/HCPCS: 36415; 51702; 70450; 71045; 74176; 80048; 80053; 80076; 80164; 81003; 81015; 82947; 82977; 83735; 83880; 84145; 84484; 85025; 85610; 87040; 87077; 87086; 87088; 87186; 87205; 87804; 93005; 94760; 96374; 97110; 97112; 97116; 97161; 97530; 99285; J0696; J1650; J2405; J7030

== ENCOUNTER 2019-08-09 18:37 | Emergency (ER) | payer OTHER, BC ==
--- OUTSIDE RECORDS SUMMARY | 2019-08-09 18:39 | XMS REPORT ---
:1945 [facility] Organization [facility] Address [facility] [address]rell [address] [place] [id number] Care Team Providers Name Role Phone Unavailable Unavailable Unavailable Problems This patient has no known problems. Allergies, Adverse Reactions, Alerts This patient has no known allergies or adverse reactions. Medications This patient has no known medications.
--- OUTSIDE RECORDS SUMMARY | 2019-08-09 18:39 | XMS REPORT ---
[...] Date Status Dosage System Date Topiramate ND 68301935070 100 MG Orally Active 1 tablet twice a day Levothyroxine ND 90847072453 200 MCG Orally Active 1 tablet Sodium Once a day on an empty stomach in the morning Imodium A-D ND 51404284548 2 MG Orally Active 1 tablet Four times a as needed day Melatonin ND 80010844805 3 MG Orally Active 1 tablet Once a day at bedtime as needed with food Oxybutynin ND 89277220843 5 MG Oral twice Active 1 tablet Chloride ER a day Lisinopril ND 26636474414 2.5 MG Orally Active 1 tablet twice a day Ipratropium-Albu ND 53926825129 0.5-2.5 (3) Active 3 ml terol MG/3ML Inhalation every 6 hrs Levothyroxine ND 32638659935 25 MCG Orally Oct 24, Active 1 tablet Sodium Once a day 2018 in the morning on an empty stomach Simethicone [facility] 55821747187 80 MG Orally Active 1 tablet Four times a after day meals and at bedtime as needed Memantine HCl [facility] 16617459171 10 MG Orally Active 1 tablet Twice a day Donepezil HCl [facility] 84471513117 10 MG Oral Active 1 tablet twice a day at bedtime Carbamazepine [facility] 61057760232 200 MG Orally Active 1 tablet once a day Claritin [facility] 71974904826 10 MG Orally December 08, Active 1 tablet Once a day 2018 BuPROPion HCl ER [facility] 98579132857 300 MG Orally Active 1 tablet (XL) Once a day in the morning Calcium ND 0 Oral Active 1 tab Cipro [facility] 23645322812 500 MG Orally May 12, May 19, Active 1 tablet every 12 hrs 2018 2018 Oxybutynin [facility] 15903477902 5 MG Orally Apr 27October Active 1 tablet Chloride Twice a day 2018 Benadryl Allergy [facility] 01624781290 25 MG Orally Active 1 tablet every 8 hrs as needed Imitrex [facility] 99373097957 50 MG Orally Apr 03, Active 1 tablet Once a day november 2018 as needed repeat dose 1 dose in 2 hours ( max 2 doses in 24 hours) Carvedilol [facility] 41886304385 6.25 MG Orally Active 1 tablet Twice a day Promethazine HCl [facility] 93353414946 25 MG/ML Active 1 ml as Injection every needed 6 hrs Zantac [facility] 48197665973 150 MG Orally Active 1 tablet Once a day at bedtime Duloxetine HCl [facility] 77093874311 60 MG Orally Active 1 capsule Once a day Folic Acid-Vit [facility] 96766-69[address] 0.8-10-0.115 MG Active 1 tablet B6-Vit B12 Orally Once a day Divalproex [facility] 60879884591 500 MG Orally Active 1 tablet Sodium Twice a day Vitamin D [facility] 53009719934 1000 UNIT Active 1 tablet Orally Once a day Diclofenac [facility] 72796821679 75 MG Orally Active 1 tablet Sodium Twice a day with food or milk Flonase [facility] 01545147590 50 MCG/DOSE December 08, Active 1 spray in Nasally Twice a 2018 each day nostril Protonix [facility] 01095173248 40 MG Orally Active 1 tablet Once a day Atorvastatin [facility] 63448804719 20 MG Orally Active 1 tablet Calcium Once a day Trazodone HCl [facility] 94887030338 50 MG Oral Active not defined Gabapentin [facility] 81938946807 800 MG Orally Active 1 tablet three times a day Ondansetron HCl [facility] 11705195344 4 MG Orally Active 1 tablet every 6 hrs Results Name Result Date Reference Range Unit Abnormality Flag Urine Dip Stick ----Appearance yellow and cloudy 20190512 ----SP. Gr 1.015 20190512 ----pH 6.0 20190512 ----Ketone NEG 20190512 ----Glucose NEG 20190512 ----Blood 2+ 20190512 ----Protein 1+ 20190512 ----Nitrite POS 20190512 ----Leukocytes 3+ 20190512 Summary Purpose eClinicalWorks Submission
--- OUTSIDE RECORDS SUMMARY | 2019-08-09 18:40 | XMS REPORT ---
[...] End Date Status Dosage System Date Protonix [facility] 84942681392 40 MG Orally Active 1 tablet Once a day Benadryl Allergy [facility] 92580652120 25 MG Orally Active 1 tablet every 8 hrs as needed Folic Acid-Vit [facility] 76576-21378 0.8-10-0.115 MG Active 1 tablet B6-Vit B12 Orally Once a day Calcium ND 0 Oral Active 1 tab Diclofenac [facility] 80021822581 75 MG Orally Active 1 tablet Sodium Twice a day with food or milk Carbamazepine [facility] 83369944648 200 MG Orally Active 1 tablet once a day Ipratropium-Albu [facility] 56929264268 0.5-2.5 (3) Active 3 ml terol MG/3ML Inhalation every 6 hrs Simethicone [facility] 98360324608 80 MG Orally Active 1 tablet Four times a after day meals and at bedtime as needed Myrbetriq [facility] 64335585987 25 MG Orally Apr 27October Active 1 tablet Once a day 2018 Levothyroxine [facility] 70148674787 25 MCG Orally Apr 27, Active 1 tablet Sodium Once a day 2018 in the morning on an empty stomach Ondansetron HCl [facility] 01947706210 4 MG Orally Active 1 tablet every 6 hrs Gabapentin [facility] 05603861812 800 MG Orally Active 1 tablet three times a day Atorvastatin [facility] 45421720545 20 MG Orally Active 1 tablet Calcium Once a day Oxybutynin [facility] 18414621331 5 MG Oral twice Active 1 tablet Chloride ER a day Claritin [facility] 98794925994 10 MG Orally December 08, Active 1 tablet Once a day 2018 Promethazine HCl [facility] 40977403682 25 MG/ML Active 1 ml as Injection every needed 6 hrs Melatonin [facility] 00298969890 3 MG Orally Active 1 tablet Once a day at bedtime as needed with food Carvedilol [facility] 98644320733 6.25 MG Orally Active 1 tablet Twice a day Lisinopril [facility] 67532869613 2.5 MG Orally Active 1 tablet twice a day Donepezil HCl [facility] 45853607793 10 MG Oral Active 1 tablet twice a day at bedtime Vitamin D [facility] 57208521083 1000 UNIT Active 1 tablet Orally Once a day Duloxetine HCl [facility] 74778107819 60 MG Orally Active 1 capsule Once a day BuPROPion HCl ER [facility] 69943842939 300 MG Orally Active 1 tablet (XL) Once a day in the morning Flonase [facility] 60909919631 50 MCG/DOSE December 08, Active 1 spray in Nasally Twice a 2018 each day nostril Imodium A-D [facility] 62407041944 2 MG Orally Active 1 tablet Four times a as needed day Imitrex [facility] 85263881862 50 MG Orally Apr 03, Active 1 tablet Once a day november 2018 as needed repeat dose 1 dose in 2 hours ( max 2 doses in 24 hours) Levothyroxine [facility] 32790864408 200 MCG Orally Active 1 tablet Sodium Once a day on an empty stomach in the morning Topiramate [facility] 76270530831 100 MG Orally Active 1 tablet twice a day Divalproex [facility] 31798506319 500 MG Orally Active 1 tablet Sodium Twice a day Zantac [facility] 88818101661 150 MG Orally Active 1 tablet Once a day at bedtime Memantine HCl [facility] 28849911637 10 MG Orally Active 1 tablet Twice a day Trazodone HCl [facility] 89273930345 50 MG Oral Active not defined Results No Known Results Summary Purpose eClinicalWorks Submission
--- OUTSIDE RECORDS SUMMARY | 2019-08-09 18:40 | XMS REPORT ---
[...] Status Dosage System Date Date Comp Air [facility] 84122067281 - every 6 hours Jun 16, Active as directed Compressor as needed 2019 Nebulizer Results No Known Results Summary Purpose eClinicalWorks Submission
--- OUTSIDE RECORDS SUMMARY | 2019-08-09 18:40 | XMS REPORT ---
[...] End Status Dosage System Date Date Carvedilol [facility] 05315132607 6.25 MG Orally Active 1 tablet Twice a day Lisinopril [facility] 44233816809 2.5 MG Orally Active 1 tablet twice a day Carbamazepine [facility] 56707612650 200 MG Orally Active 1 tablet once a day Ondansetron HCl [facility] 13610368327 4 MG Orally Active 1 tablet every 6 hrs Vitamin D [facility] 91669742350 1000 UNIT Active 1 tablet Orally Once a day Melatonin ND 32062482798 3 MG Orally Active 1 tablet Once a day at bedtime as needed with food Protonix [facility] 77807232695 40 MG Orally Active 1 tablet Once a day Imitrex ND 52974396284 50 MG Orally Apr 03, Active 1 tablet Once a day november 2018 as needed repeat dose 1 dose in 2 hours ( max 2 doses in 24 hours) Donepezil HCl [facility] 95362048920 10 MG Oral Active 1 tablet twice a day at bedtime Claritin [facility] 41578655343 10 MG Orally December 08, Active 1 tablet Once a day 2018 Duloxetine HCl [facility] 94319125264 60 MG Orally Active 1 capsule Once a day Benadryl Allergy [facility] 98958885348 25 MG Orally Active 1 tablet every 8 hrs as needed Simethicone [facility] 52764516766 80 MG Orally Active 1 tablet Four times a after day meals and at bedtime as needed Imodium A-D [facility] 46906692080 2 MG Orally Active 1 tablet Four times a as needed day Gabapentin [facility] 39642793830 800 MG Orally Active 1 tablet three times a day Oxybutynin [facility] 92144837132 5 MG Oral twice Active 1 tablet Chloride ER a day Ipratropium-Albu [facility] 41492951520 0.5-2.5 (3) Active 3 ml terol MG/3ML Inhalation every 6 hrs Zofran [facility] 30602922706 4 MG Orally Jun 17, Active 1 tablet every 12 hrs 2018 prn nausea Trazodone HCl [facility] 47228619972 50 MG Oral Active not defined Zantac [facility] 64386427399 150 MG Orally Active 1 tablet Once a day at bedtime Atorvastatin [facility] 00176796968 20 MG Orally Active 1 tablet Calcium Once a day Levothyroxine [facility] 99767357628 25 MCG Orally Apr 24, Active 1 tablet Sodium Once a day 2018 in the morning on an empty stomach Divalproex [facility] 85598072530 500 MG Orally Active 1 tablet Sodium Twice a day Levothyroxine [facility] 87169607847 200 MCG Orally Active 1 tablet Sodium Once a day on an empty stomach in the morning Flonase [facility] 53533919399 50 MCG/DOSE December 08, Active 1 spray Nasally Twice a 2019 in each day nostril Diclofenac [facility] 98400414727 75 MG Orally Active 1 tablet Sodium Twice a day with food or milk BuPROPion HCl ER [facility] 94961152096 300 MG Orally Active 1 tablet (XL) Once a day in the morning Memantine HCl [facility] 04863373404 10 MG Orally Active 1 tablet Twice a day Promethazine HCl [facility] 53627675183 25 MG/ML Inactive 1 ml as Injection every needed 6 hrs Folic Acid-Vit [facility] 87218-45899 0.8-10-0.115 MG Active 1 tablet B6-Vit B12 Orally Once a day Topiramate [facility] 90242676413 100 MG Active TAKE 1 TABLET BY MOUTH TWICE DAILY Oxybutynin [facility] 15894168647 5 MG Orally Apr 27October Active 1 [...] 20190616 7-18 mg/dL H ----Glucose Level 85 26804634 74-106 mg/dL ----Sodium Level 143 20190616 136-145 mmol/L ----Potassium 5.3 03549084 3.5-5.1 mmol/L H ----Chloride Level 114 20190616 98-107 mmol/L H ----Bicarbonate 26 20190616 21-32 mmol/L Summary Purpose eClinicalWorks Submission
--- OUTSIDE RECORDS SUMMARY | 2019-08-09 18:41 | XMS REPORT ---
[...] Date Status Dosage System Date Melatonin ND 93094057446 3 MG Orally Active 1 tablet Once a day at bedtime as needed with food Simethicone ND 60994420936 80 MG Orally Active 1 tablet Four times a after day meals and at bedtime as needed Calcium NDC 0 Oral Active 1 tab Vitamin D ND 10004118608 1000 UNIT Active 1 tablet Orally Once a day Donepezil HCl ND 11780294326 10 MG Oral Active 1 tablet twice a day at bedtime Oxybutynin ND 84007489102 5 MG Orally Apr 27October Active 1 tablet Chloride Twice a day 2018 Claritin ND 97330133514 10 MG Orally December 08, Active 1 tablet Once a day 2018 Protonix [facility] 36230955089 40 MG Orally Active 1 tablet Once a day Duloxetine HCl [facility] 49579358008 60 MG Orally Active 1 capsule Once a day Zantac [facility] 94585518850 150 MG Orally Active 1 tablet Once a day at bedtime Gabapentin [facility] 50465002581 800 MG Orally Active 1 tablet three times a day Oxybutynin [facility] 67598927138 5 MG Oral twice Active 1 tablet Chloride ER a day Topiramate [facility] 85809639535 100 MG Active TAKE 1 TABLET BY MOUTH TWICE DAILY BuPROPion HCl ER [facility] 28028830943 300 MG Orally Active 1 tablet (XL) Once a day in the morning Imitrex [facility] 43477449310 50 MG Orally Apr 03, Active 1 tablet Once a day november 2018 as needed repeat dose 1 dose in 2 hours ( max 2 doses in 24 hours) Benadryl Allergy [facility] 15271336677 25 MG Orally Active 1 tablet every 8 hrs as needed Imodium A-D [facility] 89046288177 2 MG Orally Active 1 tablet Four times a as needed day Atorvastatin [facility] 12793820545 20 MG Orally Active 1 tablet Calcium Once a day Levothyroxine [facility] 74948079120 200 MCG Orally Active 1 tablet Sodium Once a day on an empty stomach in the morning Ipratropium-Albu [facility] 99692016793 0.5-2.5 (3) Active 3 ml terol MG/3ML Inhalation every 6 hrs Folic Acid-Vit [facility] 21597-07405 0.8-10-0.115 MG Active 1 tablet B6-Vit B12 Orally Once a day Flonase [facility] 00959474555 50 MCG/DOSE December 08, Active 1 spray in Nasally Twice a 2018 each day nostril Zofran [facility] 28211815541 4 MG Orally Jun 17, Active 1 tablet every 12 hrs 2019 prn nausea Lisinopril [facility] 79656688478 2.5 MG Orally Active 1 tablet twice a day Diclofenac ND 44306579443 75 MG Orally Active 1 tablet Sodium Twice a day with food or milk Levothyroxine [facility] 88406007624 25 MCG Orally Apr 27, Active 1 tablet Sodium Once a day 2018 in the morning on an empty stomach Memantine HCl [facility] 03306760355 10 MG Orally Active 1 tablet Twice a day Comp Air [facility] 80784728528 - every Jun 16, Active as Compressor hours as needed 2019 directed Nebulizer Carvedilol [facility] 47170581910 6.25 MG Orally Active 1 tablet Twice a day Carbamazepine [facility] 74047712676 200 MG Orally Active 1 tablet once a day Trazodone HCl [facility] 78005548930 50 MG Oral Active not defined Divalproex [facility] 68529159595 500 MG Orally Active 1 tablet Sodium Twice a day Ondansetron HCl [facility] 80299785439 4 MG Orally Active 1 tablet every 6 hrs Results Name Result Date Reference Range Unit Abnormality Flag Sjogren's Ab, Anti-SSA/-SSB ----Sjogren's <0.2 [id number] 0.0-0.9 AI Anti-SS-A ----Sjogren's <0.2 16976850 0.0-0.9 AI Anti-SS-B EDWIN w/Reflex ----EDWIN Direct Negative 20190627 Negative Comp. Metabolic Panel (14) (CMP) ----Sodium 142 20190627 134-144 mmol/L ----BUN/Creatinine 17 23067196 12-28 Ratio ----Chloride 106 00596907 96-106 mmol/L ----Potassium 5.5 09974950 3.5-5.2 mmol/L H ----Calcium 9.2 67785327 8.7-10.3 mg/dL ----Protein, Total 5.7 56336026 6.0-8.5 g/dL L ----Carbon Dioxide, 23 20190627 20-29 mmol/L Total ----A/G Ratio 1.9 93845354 1.2-2.2 ----eGFR If NonAfricn 38 09364416 >59 mL/min/1.73 L Am ----Bilirubin, Total <0.2 15873062 0.0-1.2 mg/dL ----eGFR If Africn Am 44 98086058 >59 mL/min/1.73 L ----Albumin 3.7 32926743 3.5-4.8 g/dL ----BUN 23 20190627 8-27 mg/dL ----Globulin, Total 2.0 20190627 1.5-4.5 g/dL ----Creatinine 1.38 20190627 0.57-1.00 mg/dL H ----ALT (SGPT) 13 20190627 0-32 IU/L ----Glucose 84 20190627 65-99 mg/dL ----Alkaline 122 20190627 39-117 IU/L H Phosphatase ----AST (SGOT) 13 20190627 0-40 IU/L Summary Purpose eClinicalWorks Submission
[2019-08-09] MEDS ORDERED: NA CHLORIDE 0.9% 1,000 ML ONE (19:34)
[2019-08-09] MEDS ORDERED: KETOROLAC 30 MG/ML INJ ONE (19:34)
[2019-08-09 20:06] LABS: Absolute Lymphocytes (CBC) 1.3 K/uL (0.7-4.9); Basophils % 0.5 % (0-1.3); Hematocrit 25.2 % (36.0-45.0); Lymphocytes % 28.8 % (15.3-44.8); RBC Red Blood Cell Count 2.62 M/uL (3.86-4.86)
[2019-08-09 20:13] LABS: ALT/SGPT 17 U/L (12-78); AST/SGOT 24 U/L (15-37); Albumin 2.8 g/dL (3.4-5.0); Alkaline Phosphatase 113 U/L (45-117); BUN Blood Urea Nitrogen 23 mg/dL (7-18); Bicarbonate 24 mmol/L (21-32); Bilirubin Direct < 0.1 mg/dL (0-0.2); Bilirubin Total 0.3 mg/dL (0.2-1.0); Glucose Level 76 mg/dL (74-106); Lipase 84 U/L (73-393); Potassium 4.6 mmol/L (3.5-5.1); Protein, Total 5.9 g/dL (6.4-8.2); Sodium Level 143 mmol/L (136-145)
--- NOTE | 2019-08-09 20:45 | RAD REPORT ---
EXAM DESCRIPTION: CT - Stone Protocol - 08/09/2019 8:33 pm CLINICAL HISTORY: Flank pain. ABD PAIN COMPARISON: Abdomen Pelvis Wo Contrast dated 07/17/2019 TECHNIQUE: Axial images were obtained without oral or IV contrast. Lack of contrast limits solid org an and vascular assessment. The [id number] spans the entirety of the system partially obscuring uppermost abdomen and lung bases. Coronal reformatted images were obtained and reviewed. All CT scans are performed using dose optimization technique as appropriate and may include automated exposure control or mA/KV adjustment according to patient size. FINDINGS: Mild linear opacities are present in both lung bases likely subsegmental atelectasis. Imaged portions of the liver and spleen show no suspicious findings on non-contrast imaging. The panc reas and adrenal glands are normal. No pathologic lymphadenopathy in the abdomen or pelvis. No urinary tract stones or obstructive uropathy. Small benign renal cysts. IVC filter is in place. No bowel obstruction, free air, free fluid or abscess. Normal appendix noted.Moderate stool is presen t in the colon. No significant bony abnormality. IMPRESSION: No urinary tract stones or obstructive uropathy.
[2019-08-09] MEDS ORDERED: FENTANYL CITR 100 MCG/2 ML ONE (22:25)
[2019-08-09] MEDS ORDERED: CEFTRIAXONE/SWI 1gm 1 GM/10 ML SYR ONE (22:26)
--- NOTE | 2019-08-09 22:41 | EDPHYS ---
Physician Documentation [facility] Name: Macrina Mason Age: 73 yrs Sex: Female : 1945 Arrival Date: 08/09/2019 Time: 18:41 Bed 16 Private MD: ED Physician Josh Leiva HPI: 08/09 19:21 This 73 yrs old Female presents to ER via EMS with complaints of Back Pain. tw4 19:21 The patient presents with pain that is acute, with no known mechanism of injury. The tw4 symptoms are located in the right low back. Onset: The symptoms/episode began/occurred today. The pain radiates to the right low back. Associated signs and symptoms: The patient has no apparent associated signs or symptoms. The problem was sustained from unknown cause. Modifying factors: The patient symptoms are alleviated by nothing, the patient symptoms are aggravated by nothing. Severity of symptoms: At their worst the symptoms were moderate, in the emergency department the symptoms are unchanged. The patient has not experienced similar symptoms in the past. Historical: - Allergies: 18:49 No Known Allergies; ph - PMHx: 18:49 allergies; Bipolar disorder; COPD; DVT; Schizophrenia; Back pain; ph - PSHx: 18:49 Hysterectomy; eye surgery; both knee replacement; ph - Immunization history:: Adult Immunizations up to date. - Coronavirus screen:: The patient has NOT traveled to [place], [place], or [place] in the past 14 days. The patient has NOT had contact with known/suspected case of Coronavirus?. - Social history:: Smoking status: Patient denies any tobacco usage or history of. - Ebola Screening: : No symptoms or risks identified at this time. ROS: 19:21 Constitutional: Negative for fever, chills, and weight loss, Eyes: Negative for injury, tw4 pain, redness, and discharge, Cardiovascular: Negative for chest pain, palpitations, and edema, Respiratory: Negative for shortness of breath, cough, wheezing, and pleuritic chest pain, Abdomen/GI: Negative for abdominal pain, nausea, vomiting, diarrhea, and constipation, MS/Extremity: Negative for injury and deformity, Skin: Negative for injury, rash, and discoloration, Neuro: Negative for headache, weakness, numbness, tingling, and seizure. 19:21 Back: Positive for decreased range of motion, pain at rest, pain with movement, flank pain, Negative for injury or acute deformity. Exam: 19:21 Head/Face: Normocephalic, atraumatic. Chest/axilla: Normal chest wall appearance and tw4 motion. Nontender with no deformity. No lesions are appreciated. Cardiovascular: Regular rate and rhythm with a normal S1 and S2. No gallops, murmurs, or rubs. Normal PMI, no JVD. No pulse deficits. Respiratory: Lungs have equal breath sounds bilaterally, clear to auscultation and percussion. No rales, rhonchi or wheezes noted. No increased work of breathing, no retractions or nasal flaring. 19:21 Back: No spinal tenderness. No costovertebral tenderness. Full range of motion. MS/ Extremity: Pulses equal, no cyanosis. Neurovascular intact. Full, normal range of motion. Neuro: Awake and alert, GCS 15, oriented to person, place, time, and situation. Cranial nerves II-XII grossly intact. Motor strength 5/5 in all extremities. Sensory grossly intact. Cerebellar exam normal. Normal gait. 19:21 Constitutional: The patient appears in obvious distress, moderately distressed, in obvious pain. 19:21 Abdomen/GI: Inspection: abdomen appears normal, Bowel sounds: diminished, Palpation: mild abdominal tenderness, in the suprapubic area. Vital Signs: 18:44 BP 168 / 78; Pulse 95; Resp 18; Temp 97.8; Pulse Ox 98% on R/A; ph 19:40 BP 125 / 60; Pulse 61; Resp 18; Temp 98; Pulse Ox 99% on R/A; Pain 10/10; jv1 20:43 BP 133 / 66; Pulse 60; Resp 18; Temp 98; Pulse Ox 99% ; Pain 10/10; jv1 21:54 BP 117 / 90; Pulse 53; Resp 18; Temp 98; Pulse Ox 99% ; Pain 8/10; jv1 22:50 BP 125 / 80; Pulse 60; Resp 18; Temp 98; Pulse Ox 98% ; Pain 0/10; jv1 23:18 BP 140 / 70; jv1 MDM: 19:01 Patient medically screened. tw4 08/10 06:12 Differential diagnosis: Osteomyelitis Osteoporosis. Data reviewed: vital signs, nurses tw4 notes. Data interpreted: Pulse oximetry: Interpretation: normal. Counseling: I had a detailed discussion with the patient and/or guardian regarding: the historical points, exam findings, and any diagnostic results supporting the discharge/admit diagnosis. Medication response: morphine relieved the patient's pain. Symptoms have resolved. Response to treatment: and as a result, I will discharge patient. Special discussion: I discussed with the patient/guardian in detail that at this point there is no indication for admission to the hospital. It is understood, however, that if the symptoms persist or worsen the patient needs to return immediately for re-evaluation. 08/09 19:18 Order name: Basic Metabolic Panel [facility] 08/09 19:18 Order name: CBC with Diff [facility] 08/09 19:18 Order name: Creatinine for Radiology [facility] 08/09 19:18 Order name: Hepatic Function [facility] 08/09 19:18 Order name: Lipase [facility] 08/09 20:14 Order name: Basic Metabolic Panel; Complete Time: 22:36 EDMS 08/09 22:36 Interpretation: Normal except: GFR 33; BUN 23; CRE 1.56; CL 112. [facility] 08/09 20:10 Order name: CT Stone Protocol; Complete Time: 21:10 [facility] 08/09 21:12 Interpretation: No acute disease. [facility] 08/09 20:14 Order name: Liver (Hepatic) Function; Complete Time: 22:36 EDMS 08/09 22:36 Interpretation: Normal except: TP 5.9; ALB 2.8; A/G 0.9. [facility] 08/09 20:14 Order name: Lipase; Complete Time: 21:11 [facility] 08/09 21:11 Interpretation: Within normal limits: LIP 84. [facility] 08/09 20:14 Order name: CBC with Automated Diff; Complete Time: 22:36 EDMS 08/09 22:36 Interpretation: Normal except: RBC 2.62; HGB 8.2; HCT 25.2; PLT 129. [facility] 08/09 20:14 Order name: Creatinine (Radiology Only); Complete Time: 21:10 EDMS 08/09 21:11 Interpretation: Normal except: GFR 33; CRE 1.55. [facility] 08/09 21:55 Order name: Urine Dipstick--Ancillary (enter results) [facility] 08/09 22:02 Order name: Urine Culture [facility] 08/09 19:18 Order name: IV Saline Lock; Complete Time: 19:57 tw4 08/09 19:18 Order name: Labs collected and sent; Complete Time: 19:57 tw4 Administered Medications: 08/09 19:45 Drug: NS 0.9% 1000 ml Route: IV; Rate: 1 bolus; Site: right antecubital; jv1 19:45 Drug: TORadol 30 mg Route: IVP; Site: right antecubital; jv1 22:17 Follow up: Response: No adverse reaction mg2 22:31 Drug: Rocephin - (cefTRIAXone) 1 grams Route: IVPB; Infused Over: 30 mins; Site: right mg2 antecubital; 23:19 Follow up: Response: No adverse reaction; IV Status: Completed infusion jv1 22:31 Drug: fentaNYL (PF) 25 mcg Route: IVP; Site: right antecubital; mg2 23:18 Follow up: BP 140 / 70; Response: No adverse reaction; Pain is decreased jv1 Disposition: 08/09/19 22:40 Discharged to Home. Impression: Urinary tract infection, site not specified. - Condition is Stable. - Discharge Instructions: Dysuria, Urinary Tract Infection, Adult. - Prescriptions for Pyridium 200 mg Oral Tablet - take 1 tablet by ORAL route every 8 hours for 3 days; 9 tablet. Macrobid 100 mg Oral Capsule - take 1 capsule by ORAL route every 12 hours for 10 days; 20 capsule. Bactrim DS 800- 160 mg Oral Tablet - take 1 tablet by ORAL route every 12 hours for 10 days; 20 tablet. - Medication Reconciliation Form, Thank You Letter, Antibiotic Education, Prescription Opioid Use, SBAR form form. - Follow up: Private Physician; When: Upon discharge from the Emergency Department; Reason: If symptoms return, Recheck today's complaints, Continuance of care, Re-evaluation by your physician. - Problem is new. - Symptoms have improved. Signatures: Dispatcher [employer] Priscilla Pérez RN RN Josh Leiva MD MD tw4 Danny Crawford RN RN mg2 Sheila Pinto RN RN jv1 Corrections: (The following items were deleted from the chart) 21:11 21:10 Normal except: GFR 33. tw4 tw4 23:43 22:40 08/09/2019 22:40 Discharged to Home. Impression: Urinary tract infection, site mg2 not specified. Condition is Stable. Forms are Medication Reconciliation Form, Thank You Letter, Antibiotic Education, Prescription Opioid Use. Follow up: Private Physician; When: Upon discharge from the Emergency Department; Reason: If symptoms return, Recheck today's complaints, Continuance of care, Re-evaluation by your physician. Problem is new. Symptoms have improved. tw4
--- NOTE | 2019-08-09 22:41 | ER ---
Nurse's Notes [facility] Name: Macrina Mason Age: 73 yrs Sex: Female : 1945 Arrival Date: 08/09/2019 Time: 18:41 Bed 16 Private MD: Diagnosis: Urinary tract infection, site not specified Presentation: 08/09 18:42 Presenting complaint: EMS states: Severe R mid back pain, reports hx of slipped disk, ph also had episode of urinary incontinence [employer], denies fall, recent UTI, from [facility]. Transition of care: patient was not received from another setting of care. Onset of symptoms was August 09, 2019. Risk Assessment: Do you want to hurt yourself or someone else? Patient reports no desire to harm self or others. 18:42 Method Of Arrival: EMS: [facility] 18:42 Acuity: [facility] 3 ph 19:13 Initial Sepsis Screen: Does the patient meet any 2 criteria? No. Patient's initial ph sepsis screen is negative. Does the patient have a suspected source of infection? No. Patient's initial sepsis screen is negative. 23:11 Care prior to arrival: None. jv1 Historical: - Allergies: 18:49 No Known Allergies; ph - PMHx: 18:49 allergies; Bipolar disorder; COPD; DVT; Schizophrenia; Back pain; ph - PSHx: 18:49 Hysterectomy; eye surgery; both knee replacement; ph - Immunization history:: Adult Immunizations up to date. - Coronavirus screen:: The patient has NOT traveled to [place], [place], or [place] in the past 14 days. The patient has NOT had contact with known/suspected case of Coronavirus?. - Social history:: Smoking status: Patient denies any tobacco usage or history of. - Ebola Screening: : No symptoms or risks identified at this time. Screenin:27 Abuse screen: Denies threats or abuse. Nutritional screening: No deficits noted. jv1 Tuberculosis screening: No symptoms or risk factors identified. Fall Risk None identified. Assessment: 20:09 General: Appears in no apparent distress. uncomfortable, obese, Behavior is jv1 cooperative, crying. Pain: Complains of pain in suprapubic area and right low back Pain radiates to right leg Pain currently is 10 out of 10 on a pain scale. Quality of pain is described as aching, radiating. Neuro: Level of Consciousness is awake, alert, obeys commands, Oriented to person, place, time, situation, Machine Strap Buckler are equal bilaterally Moves all extremities. Cardiovascular: Denies chest pain, Heart tones S1 S2 Capillary refill < 3 seconds Pulses are all present. Respiratory: Airway is patent Respiratory effort is even, unlabored, Respiratory pattern is regular, symmetrical, Breath sounds are clear bilaterally. GI: Abdomen is round non-distended, Bowel sounds present X 4 quads. Abd is soft and non tender X 4 quads. : No signs and/or symptoms were reported regarding the genitourinary system. EENT: No signs and/or symptoms were reported regarding the EENT system. Derm:. Musculoskeletal: Reports pain in suprapubic area and right low back. 20:26 Reassessment: Patient states symptoms have improved. pt taken to CT scan. jv1 20:46 Reassessment: back from ct.. jv1 21:51 Reassessment: Patient appears in no apparent distress at this time. No changes from jv1 previously documented assessment. Patient and/or family updated on plan of care and expected duration. Pain level reassessed. Patient is alert, oriented x 3, equal unlabored respirations, skin warm/dry/pink. provider ordered for straight cath to obtain urine specimen. straight cath done. 22:50 Reassessment: Patient appears in no apparent distress at this time. No changes from jv1 previously documented assessment. Patient and/or family updated on plan of care and expected duration. Pain level reassessed. Patient is alert, oriented x 3, equal unlabored respirations, skin warm/dry/pink. 23:19 Reassessment: No changes from previously documented assessment. Patient and/or family jv1 updated on plan of care and expected duration. Pain level reassessed. Patient is alert, oriented x 3, equal unlabored respirations, skin warm/dry/pink. Patient states feeling better. Patient states symptoms have improved. called report to Leobardo Vigil LVN. waiting for ambulance. Vital Signs: 18:44 BP 168 / 78; Pulse 95; Resp 18; Temp 97.8; Pulse Ox 98% on R/A; ph 19:40 BP 125 / 60; Pulse 61; Resp 18; Temp 98; Pulse Ox 99% on R/A; Pain 10/10; jv1 20:43 BP 133 / 66; Pulse 60; Resp 18; Temp 98; Pulse Ox 99% ; Pain 10/10; jv1 21:54 BP 117 / 90; Pulse 53; Resp 18; Temp 98; Pulse Ox 99% ; Pain 8/10; jv1 22:50 BP 125 / 80; Pulse 60; Resp 18; Temp 98; Pulse Ox 98% ; Pain 0/10; jv1 23:18 BP 140 / 70; jv1 ED Course: 18:41 Patient arrived in ED. ph 18:44 Triage completed. ph 18:49 Arm band placed on Patient placed in an exam room, on a stretcher. Antipyretics given ph from triage as ordered by an ER provider. 19:00 Josh Leiva MD is Attending Physician. tw4 19:57 Basic Metabolic Panel Sent. jv1 20:27 Patient has correct armband on for positive identification. jv1 20:42 CT Stone Protocol In Process Unspecified. EDMS 21:45 Straight cath inserted, using sterile technique, 16 Fr. Specimen obtained. Returned mg2 1000 ml . 22:59 No provider procedures requiring assistance completed. jv1 23:11 IV discontinued, intact, bleeding controlled, No redness/swelling at site. Pressure jv1 dressing applied. Administered Medications: 19:45 Drug: NS 0.9% 1000 ml Route: IV; Rate: 1 bolus; Site: right antecubital; jv1 19:45 Drug: TORadol 30 mg Route: IVP; Site: right antecubital; jv1 22:17 Follow up: Response: No adverse reaction mg2 22:31 Drug: Rocephin - (cefTRIAXone) 1 grams Route: IVPB; Infused Over: 30 mins; Site: right mg2 antecubital; 23:19 Follow up: Response: No adverse reaction; IV Status: Completed infusion jv1 22:31 Drug: fentaNYL (PF) 25 mcg Route: IVP; Site: right antecubital; mg2 23:18 Follow up: BP 140 / 70; Response: No adverse reaction; Pain is decreased jv1 Outcome: 22:40 Discharge ordered by . tw4 23:08 Discharged to [facility]. Report called to Leobardo Vigil LVN jv1 23:08 Condition: improved 23:08 Discharge instructions given to patient, [facility], Instructed on discharge instructions, follow up and referral plans. medication usage, Demonstrated understanding of instructions, follow-up care, medications. 23:43 Patient left the ED. mg2 Signatures: Dispatcher [employer] EDMS Priscilla Simon RN RN ph Josh Leiva MD MD tw4 Danny Crawford RN RN mg2 Sheila Pinto RN RN jv1 Corrections: (The following items were deleted from the chart) 19:16 18:42 Presenting complaint: EMS states: Severe L mid back pain, reports hx of slipped ph disk, also had episode of urinary incontinence [employer], denies fall, recent UTI, from [facility]
[2019-08-10 00:27] VITALS: TEMP 98
[2019-08-10 00:32] VITALS: BP 140/70; O2SAT 98
[2019-08-10 08:16] LABS: Urine Blood 2+ (NEG); Urine Glucose NEGATIVE (NEG); Urine Protein 1+ (NEG); Urine pH 5.5 (5.0-7.0)
== END 2019-08-09 23:43 | disposition home or self-care (01) ==
LOC: ER 18:37
DX: N39.0 Urinary tract infection, site not specified (principal)
CPT/HCPCS: 96365; 85025; 80048; 36415; 80076; 81003; 83690; 76377; 74176; 51702; 96375; 99284; J3010; J0696; J7030

== ENCOUNTER 2019-08-19 06:36 | Inpatient (IN) | payer OTHER, BC ==
--- OUTSIDE RECORDS SUMMARY | 2019-08-19 06:38 | XMS REPORT ---
[...] End Date Status Dosage System Date Protonix [facility] 75572733853 40 MG Orally Active 1 tablet Once a day Benadryl Allergy [facility] 34427045790 25 MG Orally Active 1 tablet every 8 hrs as needed Folic Acid-Vit [facility] [address] 0.8-10-0.115 MG Active 1 tablet B6-Vit B12 Orally Once a day Calcium ND 0 Oral Active [address] [facility] 62489987526 75 MG Orally Active 1 tablet Sodium Twice a day with food or milk Carbamazepine [facility] 34822297721 200 MG Orally Active 1 tablet once a day Ipratropium-Albu [facility] 87423030491 0.5-2.5 (3) Active 3 ml terol MG/3ML Inhalation every [address] [facility] 72176810686 80 MG Orally Active 1 tablet Four times a after day meals and at bedtime as needed Myrbetriq [facility] 83103253767 25 MG Orally Apr 27October Active 1 tablet Once a day [address] [facility] 21506493181 25 MCG Orally Apr 27, Active 1 tablet Sodium Once a day 2018 in the morning on an empty stomach Ondansetron HCl [facility] 94987937730 4 MG Orally Active 1 tablet every [address] [facility] 89463963468 800 MG Orally Active 1 tablet three times a day Atorvastatin [facility] 75156588246 20 MG Orally Active 1 tablet Calcium Once a day Oxybutynin [facility] 78815000267 5 MG Oral twice Active 1 tablet Chloride ER a day Claritin [facility] 64247945031 10 MG Orally December 08, Active 1 tablet Once a day [address] [facility] 32901125288 25 MG/ML Active 1 ml as Injection every needed [address] [facility] 16834924763 3 MG Orally Active 1 tablet Once a day at bedtime as needed with food Carvedilol [facility] 33229058097 6.25 MG Orally Active 1 tablet Twice a day Lisinopril [facility] 21361975545 2.5 MG Orally Active 1 tablet twice a day Donepezil HCl [facility] 85424397200 10 MG Oral Active 1 tablet twice a day at bedtime Vitamin D [facility] 37194986898 1000 UNIT Active 1 tablet Orally Once a day Duloxetine HCl [facility] 14411456495 60 MG Orally Active 1 capsule Once a day BuPROPion HCl ER [facility] 60407428139 300 MG Orally Active 1 tablet (XL) Once a day in the morning Flonase [facility] 41392508890 50 MCG/DOSE December 08, Active 1 spray in Nasally Twice a 2018 each day nostril Imodium A-D [facility] 09475740736 2 MG Orally Active 1 tablet Four times a as needed day Imitrex [facility] 97984656122 50 MG Orally Apr 03, Active 1 tablet Once a day november 2018 as needed repeat dose 1 dose in 2 hours ( max 2 doses in 24 hours) Levothyroxine [facility] 91093864572 200 MCG Orally Active 1 tablet Sodium Once a day on an empty stomach in the morning Topiramate [facility] 28510850758 100 MG Orally Active 1 tablet twice a day Divalproex [facility] 54621168508 500 MG Orally Active 1 tablet Sodium Twice a day Zantac [facility] 95771962495 150 MG Orally Active 1 tablet Once a day at bedtime Memantine HCl [facility] 74404811982 10 MG Orally Active 1 tablet Twice a day Trazodone HCl [facility] 30696591993 50 MG Oral Active not defined Results No Known Results Summary Purpose eClinicalWorks Submission
--- OUTSIDE RECORDS SUMMARY | 2019-08-19 06:38 | XMS REPORT ---
:1945 Author Organization [facility] Address [facility] [address] [place] [id number] Care Team Providers Name Role Phone Unavailable Unavailable Unavailable Problems This patient has no known problems. Allergies, Adverse Reactions, Alerts This patient has no known allergies or adverse reactions. Medications This patient has no known medications.
--- OUTSIDE RECORDS SUMMARY | 2019-08-19 06:38 | XMS REPORT ---
[...] Date Status Dosage System Date Topiramate ND 44467576479 100 MG Orally Active 1 tablet twice a day Levothyroxine ND 76925595500 200 MCG Orally Active 1 tablet Sodium Once a day on an empty stomach in the morning Imodium A-D ND 05789295804 2 MG Orally Active 1 tablet Four times a as needed day Melatonin ND 79308055622 3 MG Orally Active 1 tablet Once a day at bedtime as needed with food Oxybutynin ND 03783066275 5 MG Oral twice Active 1 tablet Chloride ER a day Lisinopril ND 49107519880 2.5 MG Orally Active 1 tablet twice a day Ipratropium-Albu ND 11407475570 0.5-2.5 (3) Active 3 ml terol MG/3ML Inhalation every 6 hrs Levothyroxine ND 04410224422 25 MCG Orally Oct 24, Active 1 tablet Sodium Once a day 2018 in the morning on an empty stomach Simethicone [facility] 02325985669 80 MG Orally Active 1 tablet Four times a after day meals and at bedtime as needed Memantine HCl [facility] 25292905341 10 MG Orally Active 1 tablet Twice a day Donepezil HCl [facility] 32690490173 10 MG Oral Active 1 tablet twice a day at bedtime Carbamazepine [facility] 14072445843 200 MG Orally Active 1 tablet once a day Claritin [facility] 70571679003 10 MG Orally December 08, Active 1 tablet Once a day 2018 BuPROPion HCl ER [facility] 49987653344 300 MG Orally Active 1 tablet (XL) Once a day in the morning Calcium ND 0 Oral Active 1 tab Cipro [facility] 26445780891 500 MG Orally May 12, May 19, Active 1 tablet every 12 hrs 2018 2018 Oxybutynin [facility] 42837061329 5 MG Orally Apr 27October Active 1 tablet Chloride Twice a day 2018 Benadryl Allergy [facility] 69996799496 25 MG Orally Active 1 tablet every 8 hrs as needed Imitrex [facility] 25882734327 50 MG Orally Apr 03, Active 1 tablet Once a day november 2018 as needed repeat dose 1 dose in 2 hours ( max 2 doses in 24 hours) Carvedilol [facility] 39701976797 6.25 MG Orally Active 1 tablet Twice a day Promethazine HCl [facility] 35321588577 25 MG/ML Active 1 ml as Injection every needed 6 hrs Zantac [facility] 98809465873 150 MG Orally Active 1 tablet Once a day at bedtime Duloxetine HCl [facility] 06877779528 60 MG Orally Active 1 capsule Once a day Folic Acid-Vit [facility] [address] 0.8-10-0.115 MG Active 1 tablet B6-Vit B12 Orally Once a day Divalproex [facility] 45571238973 500 MG Orally Active 1 tablet Sodium Twice a day Vitamin D [facility] 21287713173 1000 UNIT Active 1 tablet Orally Once a day Diclofenac [facility] 78752131522 75 MG Orally Active 1 tablet Sodium Twice a day with food or milk Flonase [facility] 61640538396 50 MCG/DOSE December 08, Active 1 spray in Nasally Twice a 2018 each day nostril Protonix [facility] 22082026835 40 MG Orally Active 1 tablet Once a day Atorvastatin [facility] 90561082091 20 MG Orally Active 1 tablet Calcium Once a day Trazodone HCl [facility] 32796540657 50 MG Oral Active not defined Gabapentin [facility] 02216107097 800 MG Orally Active 1 tablet three times a day Ondansetron HCl [facility] 56035585983 4 MG Orally Active 1 tablet every 6 hrs Results Name Result Date Reference Range Unit Abnormality Flag Urine Dip Stick ----Appearance yellow and cloudy 20190512 ----SP. Gr 1.015 20190512 ----pH 6.0 20190512 ----Ketone NEG 20190512 ----Glucose NEG 20190512 ----Blood 2+ 20190512 ----Protein 1+ 20190512 ----Nitrite POS 20190512 ----Leukocytes 3+ 20190512 Summary Purpose eClinicalWorks Submission
--- OUTSIDE RECORDS SUMMARY | 2019-08-19 06:39 | XMS REPORT ---
[...] Date Status Dosage System Date Melatonin ND 96356534749 3 MG Orally Active 1 tablet Once a day at bedtime as needed with food Simethicone ND 12002971724 80 MG Orally Active 1 tablet Four times a after day meals and at bedtime as needed Calcium NDC 0 Oral Active 1 tab Vitamin D ND 68834963752 1000 UNIT Active 1 tablet Orally Once a day Donepezil HCl ND 50183224743 10 MG Oral Active 1 tablet twice a day at bedtime Oxybutynin ND 74246493150 5 MG Orally Apr 27October Active 1 tablet Chloride Twice a day 2018 Claritin ND 18858231118 10 MG Orally December 08, Active 1 tablet Once a day [address] [facility] 40527275192 40 MG Orally Active 1 tablet Once a day Duloxetine HCl [facility] 43876704548 60 MG Orally Active 1 capsule Once a day Zantac [facility] 41460007077 150 MG Orally Active 1 tablet Once a day at bedtime Gabapentin [facility] 57111676563 800 MG Orally Active 1 tablet three times a day Oxybutynin [facility] 63185051967 5 MG Oral twice Active 1 tablet Chloride ER a day Topiramate [facility] 68296248435 100 MG Active TAKE 1 TABLET BY MOUTH TWICE DAILY BuPROPion HCl ER [facility] 22685713442 300 MG Orally Active 1 tablet (XL) Once a day in the morning Imitrex [facility] 89272678533 50 MG Orally Apr 03, Active 1 tablet Once a day november 2018 as needed repeat dose 1 dose in 2 hours ( max 2 doses in 24 hours) Benadryl Allergy [facility] 97641391771 25 MG Orally Active 1 tablet every 8 hrs as needed Imodium A-D [facility] 30199233230 2 MG Orally Active 1 tablet Four times a as needed day Atorvastatin [facility] 97004860574 20 MG Orally Active 1 tablet Calcium Once a day Levothyroxine [facility] 34301115020 200 MCG Orally Active 1 tablet Sodium Once a day on an empty stomach in the morning Ipratropium-Albu [facility] 43774553765 0.5-2.5 (3) Active 3 ml terol MG/3ML Inhalation every 6 hrs Folic Acid-Vit [facility] 17420-99310 0.8-10-0.115 MG Active 1 tablet B6-Vit B12 Orally Once a day Flonase [facility] 30268023559 50 MCG/DOSE December 08, Active 1 spray in Nasally Twice a 2018 each day nostril Zofran [facility] 76883412351 4 MG Orally Jun 17, Active 1 tablet every 12 hrs 2019 prn nausea Lisinopril [facility] 68320258357 2.5 MG Orally Active 1 tablet twice a day Diclofenac ND 29154123433 75 MG Orally Active 1 tablet Sodium Twice a day with food or milk Levothyroxine [facility] 03291918990 25 MCG Orally Apr 27, Active 1 tablet Sodium Once a day 2018 in the morning on an empty stomach Memantine HCl [facility] 83093758802 10 MG Orally Active 1 tablet Twice a day Comp Air [facility] 74043613934 - every Jun 16, Active as Compressor hours as needed 2019 directed Nebulizer Carvedilol [facility] 53715119348 6.25 MG Orally Active 1 tablet Twice a day Carbamazepine [facility] 92091190275 200 MG Orally Active 1 tablet once a day Trazodone HCl [facility] 18904177221 50 MG Oral Active not defined Divalproex [facility] 05812040630 500 MG Orally Active 1 tablet Sodium Twice a day Ondansetron HCl [facility] 08449780247 4 MG Orally Active 1 tablet every 6 hrs Results Name Result Date Reference Range Unit Abnormality Flag Sjogren's Ab, Anti-SSA/-SSB ----Sjogren's <0.2 [id number] 0.0-0.9 AI Anti-SS-A ----Sjogren's <0.2 [id number] 0.0-0.9 AI Anti-SS-B EDWIN w/Reflex ----EDWIN Direct Negative [id number] Negative Comp. Metabolic Panel (14) (CMP) ----Sodium 142 20190627 134-144 mmol/L ----BUN/Creatinine 17 36869632 12-28 Ratio ----Chloride 106 58718030 96-106 mmol/L ----Potassium 5.5 56548156 3.5-5.2 mmol/L H ----Calcium 9.2 85792374 8.7-10.3 mg/dL ----Protein, Total 5.7 70695492 6.0-8.5 g/dL L ----Carbon Dioxide, 23 20190627 20-29 mmol/L Total ----A/G Ratio 1.9 92173578 1.2-2.2 ----eGFR If NonAfricn 38 [id number] >59 mL/min/1.73 L Am ----Bilirubin, Total <0.2 07207464 0.0-1.2 mg/dL ----eGFR If Africn Am 44 [id number] >59 mL/min/1.73 L ----Albumin 3.7 85102762 3.5-4.8 g/dL ----BUN 23 20190627 8-27 mg/dL ----Globulin, Total 2.0 20190627 1.5-4.5 g/dL ----Creatinine 1.38 20190627 0.57-1.00 mg/dL H ----ALT (SGPT) 13 20190627 0-32 IU/L ----Glucose 84 20190627 65-99 mg/dL ----Alkaline 122 20190627 39-117 IU/L H Phosphatase ----AST (SGOT) 13 20190627 0-40 IU/L Summary Purpose eClinicalWorks Submission
--- OUTSIDE RECORDS SUMMARY | 2019-08-19 06:39 | XMS REPORT ---
[...] Status Dosage System Date Date Comp Air [facility] 07862107471 - every 6 hours Jun 16, Active as directed Compressor as needed 2019 Nebulizer Results No Known Results Summary Purpose eClinicalWorks Submission
--- OUTSIDE RECORDS SUMMARY | 2019-08-19 06:39 | XMS REPORT ---
[...] End Status Dosage System Date Date Carvedilol [facility] 15404908563 6.25 MG Orally Active 1 tablet Twice a day Lisinopril [facility] 84369403387 2.5 MG Orally Active 1 tablet twice a day Carbamazepine [facility] 78525967230 200 MG Orally Active 1 tablet once a day Ondansetron HCl NDC 16197686823 4 MG Orally Active 1 tablet every 6 hrs Vitamin D [facility] 40290180992 1000 UNIT Active 1 tablet Orally Once a day Melatonin ND 14629916289 3 MG Orally Active 1 tablet Once a day at bedtime as needed with food Protonix [facility] 69158906143 40 MG Orally Active 1 tablet Once a day Imitrex ND 54667660363 50 MG Orally Apr 03, Active 1 tablet Once a day november 2018 as needed repeat dose 1 dose in 2 hours ( max 2 doses in 24 hours) Donepezil HCl [facility] 89325211723 10 MG Oral Active 1 tablet twice a day at bedtime Claritin [facility] 72845864148 10 MG Orally December 08, Active 1 tablet Once a day 2018 Duloxetine HCl [facility] 10039621760 60 MG Orally Active 1 capsule Once a day Benadryl Allergy [facility] 74591982875 25 MG Orally Active 1 tablet every 8 hrs as needed Simethicone [facility] 41465520220 80 MG Orally Active 1 tablet Four times a after day meals and at bedtime as needed Imodium A-D [facility] 13403563779 2 MG Orally Active 1 tablet Four times a as needed day Gabapentin [facility] 57777163301 800 MG Orally Active 1 tablet three times a day Oxybutynin [facility] 19381147822 5 MG Oral twice Active 1 tablet Chloride ER a day Ipratropium-Albu [facility] 53070287316 0.5-2.5 (3) Active 3 ml terol MG/3ML Inhalation every 6 hrs Zofran [facility] 91389027383 4 MG Orally Jun 17, Active 1 tablet every 12 hrs 2018 prn nausea Trazodone HCl [facility] 92610653262 50 MG Oral Active not defined Zantac [facility] 30631052890 150 MG Orally Active 1 tablet Once a day at bedtime Atorvastatin [facility] 02409881414 20 MG Orally Active 1 tablet Calcium Once a day Levothyroxine [facility] 10759284483 25 MCG Orally Apr 24, Active 1 tablet Sodium Once a day 2018 in the morning on an empty stomach Divalproex [facility] 81110909115 500 MG Orally Active 1 tablet Sodium Twice a day Levothyroxine [facility] 17102442472 200 MCG Orally Active 1 tablet Sodium Once a day on an empty stomach in the morning Flonase [facility] 46718716543 50 MCG/DOSE December 08, Active 1 spray Nasally Twice a 2019 in each day nostril Diclofenac [facility] 45810968572 75 MG Orally Active 1 tablet Sodium Twice a day with food or milk BuPROPion HCl ER [facility] 59878307494 300 MG Orally Active 1 tablet (XL) Once a day in the morning Memantine HCl [facility] 03354970177 10 MG Orally Active 1 tablet Twice a day Promethazine HCl [facility] 69429589373 25 MG/ML Inactive 1 ml as Injection every needed 6 hrs Folic Acid-Vit [facility] 943[address]-67651 0.8-10-0.115 MG Active 1 tablet B6-Vit B12 Orally Once a day Topiramate [facility] 60418225870 100 MG Active TAKE 1 TABLET BY MOUTH TWICE DAILY Oxybutynin [facility] 33781217768 5 MG Orally Apr 27October Active 1 [...] 20190616 7-18 mg/dL H ----Glucose Level 85 23324907 74-106 mg/dL ----Sodium Level 143 20190616 136-145 mmol/L ----Potassium 5.3 39511567 3.5-5.1 mmol/L H ----Chloride Level 114 20190616 98-107 mmol/L H ----Bicarbonate 26 20190616 21-32 mmol/L Summary Purpose eClinicalWorks Submission
--- NOTE | 2019-08-19 07:03 | RAD REPORT ---
EXAM DESCRIPTION: CT - Ct Stroke Brain Wo Cont - 08/19/2019 6:51 am CLINICAL HISTORY: Confusion/alteration of awareness COMPARISON: July 2019 TECHNIQUE: Computed axial tomography of the head was obtained. All CT scans are performed using dose optimization technique as appropriate and may include automated exposure control or mA/KV adjustment according to patient size. FINDINGS: An intracranial bleed is not seen . The ventricles are normal in caliber. No extra-axial fluid collection is noted. Mild low-density within periventricular, deep and subcortical white matter likely ischemic changes s econdary to small vessel disease Fluid within the sinuses/ mastoids is not seen. IMPRESSION: No acute intracranial abnormality is seen. If patient's symptoms persist MRI of the bra in would be recommended. Avery of the emergency room was notified at 653 a.m. August 19, 2019
[2019-08-19 07:14] LABS: Absolute Lymphocytes (CBC) 1.6 K/uL (0.7-4.9); Basophils % 0.7 % (0-1.3); Hematocrit 31.8 % (36.0-45.0); Lymphocytes % 34.6 % (15.3-44.8); MPV 9.2 fL (7.6-11.3)
[2019-08-19 07:17] LABS: Protime INR 0.93
[2019-08-19] MEDS ORDERED: FLUMAZENIL 0.1 MG/ML (5 mL VIAL) IV ONE (07:20)
[2019-08-19 07:23] LABS: Barbiturates NEGATIVE (NEGATIVE); Benzodiazepines NEGATIVE (NEGATIVE); Cocaine NEGATIVE (NEGATIVE); METHAMPHETAM NEGATIVE (NEGATIVE); Methadone NEGATIVE (NEGATIVE); Opiates NEGATIVE (NEGATIVE); Phencyclidine NEGATIVE (NEGATIVE); THC Cannibis NEGATIVE (NEGATIVE)
[2019-08-19] MEDS ORDERED: HYDRALAZINE HCL 20 MG/ML VIAL ONE ×2 (07:23→13:32)
[2019-08-19 07:28] LABS: Magnesium 3.3 mg/dL (1.8-2.4); Troponin (Emerg Dept Use Only) 0.09 ng/mL (0.0-0.045)
[2019-08-19 07:48] LABS: Potassium 6.2 mmol/L (3.5-5.1)
[2019-08-19] MEDS ORDERED: CEFTRIAXONE/SWI 1gm 1 GM/10 ML SYR ONE (07:52)
[2019-08-19 08:04] LABS: Urine Bacteria >50 /HPF (<20); Urine Culture Reflex Order REFLEXED; Urine Mucus 1+ /HPF (NONE SEEN); Urine RBC <5 /HPF (NONE SEEN)
--- NOTE | 2019-08-19 08:06 | RAD REPORT ---
EXAM DESCRIPTION: Zack Single View08/19/2019 7:51 am CLINICAL HISTORY: Chest pain COMPARISON: July 2019 FINDINGS: Mild bilateral pulmonary opacities Heart is mildly enlarged IMPRESSION: These findings may indicate mild CHF or pneumonia
[2019-08-19 08:07] LABS: Thyroid Stimulating Hormone 2.91 uIU/mL (0.360-3.740)
[2019-08-19] MEDS ORDERED: ALBUTEROL 2.5 MG/3 ML NEB SOL ONE (08:21)
[2019-08-19] MEDS ORDERED: FUROSEMIDE 20 MG/ 2ML VIAL ONE (08:21)
[2019-08-19] MEDS ORDERED: INSULIN -REGULAR HUMAN 50 UNIT/0.5 ML ML ONE ×2 (08:21→21:30)
[2019-08-19] MEDS ORDERED: D50W 25 GM/50 ML SYRINGE/VIAL IV ONE ×4 (08:22→21:30)
[2019-08-19] MEDS ORDERED: NA CHLORIDE 0.9% 1,000 ML ONE (08:22)
--- NOTE | 2019-08-19 08:32 | ER ---
Nurse's Notes [facility] Name: Macrina Mason Age: 73 yrs Sex: Female : 1945 Arrival Date: 08/19/2019 Time: 06:37 Bed 4 Private MD: Diagnosis: Hypothermia;Acute kidney failure;Hypermagnesemia;Hyperkalemia;Encephalopathy, unspecified;Acute combined systolic (congestive) and diastolic (congestive) heart failure Presentation: 08/19 06:37 Presenting complaint: EMS states: they were toned out for report of pt unresponsive pt bb last known well 0100. Transition of care: patient was received from another setting of care (long-term care [facility]), [facility]. Onset of symptoms was August 19, 2019. Risk Assessment: Do you want to hurt yourself or someone else? Unable to obtain. Initial Sepsis Screen: Does the patient meet any 2 criteria? Altered Mental Status. Does the patient have a suspected source of infection? Yes: Dysuria/Frequency/Urgency/UTI Care prior to arrival: IV initiated. 18 GA, in the right antecubital area, Glucose check: 92. 06:37 Method Of Arrival: EMS: [facility] bb 06:37 Acuity: [facility] 1 bb Historical: - Allergies: 06:59 No Known Allergies; bb - Home Meds: 07:19 Breo Ellipta 200-25 mcg/dose inhalation dsdv 1 puff once daily [Active]; promethazine bb 25 mg Oral tab 1 tab every 6 hours [Active]; mirtazapine 30 mg Oral tab 1 tab once daily [Active]; levothyroxine 200 mcg tab 1 tab once daily [Active]; trazodone 50 mg Oral tab nightly [Active]; Amitiza 24 mcg Oral cap 1 cap 2 times per day [Active]; amitriptyline 25 mg Oral tab 1 tab 2 times per day [Active]; aspirin 325 mg Oral tab 1 tab once daily [Active]; atorvastatin 20 mg Oral tab 1 tab once daily [Active]; Bisacodyl Oral as needed [Active]; bupropion HCl 300 mg Oral Tb24 1 tab once daily [Active]; carbamazepine 200 mg Oral CM12 1 cap 2 times per day [Active]; carvedilol 6.25 mg Oral tab 1 tab 2 times per day [Active]; diclofenac sodium 75 mg Oral TbEC 1 tab 2 times per day [Active]; divalproex 500 mg Oral Tb24 1 tab once daily [Active]; donepezil 10 mg Oral tab 1 tab twice a day [Active]; duloxetine 60 mg Oral cpDR 1 cap once daily [Active]; fexofenadine 180 mg Oral tab 1 tab once daily [Active]; flaxseed oil 1,000 mg Oral cap daily [Active]; folic acid 800 mcg Oral tab 1 tab once daily [Active]; gabapentin 800 mg Oral tab 3 times per day [Active]; lisinopril 2.5 mg Oral tab 1 tab twice a day [Active]; lorazepam 0.5 mg Oral tab 1 tab 2 times per day [Active]; memantine 10 mg Oral tab 1 tab 2 times per day [Active]; oxybutynin chloride 5 mg Oral tr24 2 tabs once daily [Active]; topiramate 100 mg Oral CSpX 1 cap once daily [Active]; - PMHx: 07:19 allergies; Back pain; Bipolar disorder; COPD; DVT; Schizophrenia; bb - PSHx: 07:19 Hysterectomy; eye surgery; both knee replacement; bb - Immunization history:: Adult Immunizations unknown. - Coronavirus screen:: The patient has NOT traveled to [place] in the past 14 days. Proceed with normal triage process as indicated. - Social history:: Smoking status: unknown. - Ebola Screening: : No symptoms or risks identified at this time. Screenin:45 The patient has not been NPO before screening. The patient is not alert, or is unable bb to follow commands. Bedside swallow screening discontinued. Patient kept NPO until cleared by Speech Therapy or Physician. 07:11 Abuse screen: Denies threats or abuse. Denies injuries from another. Nutritional lp1 screening: No deficits noted. Tuberculosis screening: No symptoms or risk factors identified. Fall Risk Total Sandoval Fall Scale indicates High Risk Score (45 or more points). Fall prevention measures have been instituted. Side Rails Up X 2 Placed Close to Nursing Station Frequent Obs/Assessments Occuring As available patient and family educated on Fall Prevention Program and Strategies. Assessment: 06:35 Reassessment: pt to CT scan via EMS stretcher accompanied by this RN. bb 06:45 Reassessment: phlebotomy at bedside for lab draw. bb 07:02 Reassessment: spoke to nurse at [facility] who states pt is normally A\T\O x 4, pt's bb last known well time was 0100 when night nurse administered Xanax 1 mg which pt receives PRN for sleep then pt was found by aide at 0600 unresponsive. 07:05 General: Appears Behavior is drowsy, unresponsive. responsive to tactile stimuli . em Pain: Unable to use pain scale. Patient is unresponsive. Neuro: Level of Consciousness is obtunded, unresponsive, Pupils are sluggish. Cardiovascular: Capillary refill is > 3 seconds is sluggish in bilateral fingers toes Rhythm is sinus bradycardia. Respiratory: Airway is patent Respiratory effort is shallow, Respiratory pattern is regular. : Steele in place to gravity drainage Urine is clear. EENT: Sclera/Cornea are clear in right eye and left eye. Derm: Skin is intact, is thin, Skin is dry, Skin is pale. Musculoskeletal: Capillary refill is sluggish, in bilateral fingers. toes. 07:20 Reassessment: pt belongings given to security, 2 rings and watch, 1 pillow and black em pants, bra and gown were cut and discarded. 08:23 Reassessment: No changes from previously documented assessment. Symptoms have not em improved. 08:51 Reassessment: Dr. Gutierres and ADRIEN Espinosa at bedside. em 09:05 Reassessment: No changes from previously documented assessment. RT at bedside for ABG em Symptoms have not improved. 09:15 Reassessment: Patient appears in no apparent distress at this time. MRI delayed due to sg rad staffing, pt to be admitted. 09:35 Reassessment: No changes from previously documented assessment. ADRIEN Espinosa at bedside for em intubation. 10:20 Reassessment: Patient appears in no apparent distress at this time. pt sedated, skin em pale warm and dry, respirations even pt on ventilator. 11:05 Reassessment: BGL 70, provider notified, received verbal order for 1/2 AMP D50. em 11:10 General: Appears comfortable. Neuro: Level of Consciousness is obtunded, unresponsive. em Respiratory: Airway via oral intubation Respiratory effort is Respiratory pattern is regular, symmetrical. : Steele in place to gravity drainage. Derm: Skin is intact, is thin, Skin is dry, Skin is pale. 11:16 Reassessment: report given to Sachi, RN at ICU. em Vital Signs: 06:59 BP 177 / 84; Pulse 57; Resp 10 S; Pulse Ox 98% on R/A; Weight 108.86 kg (R); Height 5 bb ft. 7 in. (170.18 cm) (R); Pain 0/10; 07:10 BP 193 / 92; Pulse 69; Resp 18; Temp 95.5(C); Pulse Ox 100% on 4 lpm NC; lp1 07:20 BP 201 / 92; Pulse 66; Temp 95.6; Pulse Ox 100% on 4 lpm NC; sg 07:27 BP 160 / 85; Pulse 68; Pulse Ox 100% on 4 lpm NC; em 07:40 BP 154 / 67; Pulse 54; Resp 14 S; Temp 95.6(C); Pulse Ox 100% on 4 lpm NC; em 08:00 BP 172 / 80; Pulse 84; Resp 12 S; Temp 95.7(C); Pulse Ox 100% on 4 lpm NC; em 08:30 BP 161 / 63; Pulse 59; Resp 14 S; Temp 95.9(C); Pulse Ox 100% on 4 lpm NC; em 08:50 BP 164 / 75; Pulse 63; Resp 16; Pulse Ox 100% on 4 lpm NC; em 09:10 BP 111 / 82; Pulse 62; Resp 18; Pulse Ox 99% on 4 lpm NC; em 09:48 BP 108 / 63; Pulse 65; Resp 12; Pulse Ox 100% on Nebulizer Mask; em 09:55 BP 163 / 96; Pulse 83; Resp 16 A; Pulse Ox 100% on ETT ambu; em 09:58 BP 177 / 85; Pulse 75; Resp 18 A; Pulse Ox 100% on 50% FiO2 ETT vent; em 10:15 BP 108 / 96; Pulse 79; Resp 18 A; Pulse Ox 100% on 50% FiO2 ETT vent; em 10:20 BP 120 / 80; Pulse 74; Resp 18 A; Pulse Ox 99% on 50% FiO2 ETT vent; em 10:30 BP 155 / 73; Pulse 75; Resp 22 A; Temp 97.0(C); Pulse Ox 100% on 50% FiO2 ETT vent; em 11:00 BP 161 / 95; Pulse 72; Resp 21; Pulse Ox 100% on 50% FiO2 ETT vent; em 11:10 BP 157 / 65; Pulse 65; Resp 18 A; Temp 97.2(C); em 06:59 Body Mass Index 37.59 (108.86 kg, 170.18 cm) bb 07:20 a kae hugger has been applied, Jesús JURADO notified of pt condition and VS sg Donovan Coma Score: 08:08 Eye Response: to pain(2). Verbal Response: incomprehensible(2). Motor Response: jr8 withdraws from pain(4). Total: 8. NIH Stroke Scale Scores: 06:45 NIHSS Score: 36 bb 07:36 NIHSS Score: 27 jr8 ED Course: 06:[address] scan via EMS stretcher accompanied by this RN. bb 06:35 Maintain EMS IV. Dressing intact. Site clean \T\ dry. Gauge \T\ site: 18 g R AC. bb 06:37 Patient arrived in ED. bb 06:43 Jesús Crabtree PA is PHCP. jr8 06:43 Kevyn Carrillo MD is Attending Physician. jr8 06:55 EKG done, by ED staff, reviewed by Jesús JURADO. bb 06:55 Initial lab(s) drawn, by wood preserving plant laborer, sent to lab. First set of blood cultures drawn. rr5 06:58 Triage completed. bb 06:59 Arm band placed on. bb 07:00 Patient has correct armband on for positive identification. Placed in gown. Bed in low lp1 position. Side rails up X2. school bus monitor on. Pulse ox on. NIBP on. 07:05 Steele cath inserted, using sterile technique, 16 Fr., by nv, balloon inflated, urine rr5 specimen collected. 07:11 Thermoregulation: Kae blanket applied. lp1 07:32 Inserted saline lock: 22 gauge in left antecubital area, using aseptic technique. Blood sg collected. Flushed left antecubital with 5 ml normal saline. 07:35 Kevin Guevara, RN is Primary Nurse. em 08:30 Holland Gutierres DO is Hospitalizing Provider. jr8 09:51 Assisted provider with intubation using 7.5 mm ETT via oral route. ET tube secured at em 23cm at the teeth. Set up intubation tray. Intubated by Jesús JURADO Placement verified by CXR, CO2 detector w/ + color change, auscultating bilateral breath sounds, Patient tolerated well. 10:12 NGT: inserted 14 Fr. other oral gastric verified placement of air over stomach, em Placement verified by X-ray, to intermittent suction. Returned bile. Patient tolerated well. 11:44 Patient admitted, IV remains in place. em Administered Medications: 07:25 Drug: hydrALAZINE 5 mg Route: IV; Rate: calculated rate; Site: right antecubital; em 08:00 Follow up: Response: No adverse reaction; Blood pressure is lowered; IV Status: em Completed infusion 07:37 Not Given (Physician Discretion): hydrALAZINE 10 mg IV at calculated rate once em 08:08 Drug: Rocephin 1 grams Route: IV; Rate: calculated rate; Site: left antecubital; em 09:00 Follow up: Response: No adverse reaction; IV Status: Completed infusion; IV Intake: 10mlem 08:23 Drug: NS 0.9% 1000 ml Route: IV; Rate: 1000 ml; Site: left antecubital; em 08:25 Drug: D50W 50 ml Route: IVP; Site: left antecubital; em 09:38 Follow up: Response: No adverse reaction em 08:38 Drug: Albuterol 2.5 mg Route: Inhalation; em 09:42 Follow up: Response: No adverse reaction em 08:38 Drug: Albuterol 2.5 mg Route: Inhalation; em 08:38 Drug: Albuterol 2.5 mg Route: Inhalation; em 08:38 Drug: Calcium Gluconate 1 grams Route: IVPB; Infused Over: 60 mins; Site: left em antecubital; 09:38 Follow up: Response: No adverse reaction; IV Status: Completed infusion; IV Intake: em 100ml 08:40 Drug: Insulin Regular Human 10 units {Co-Signature: sg (Jack Leos RN).} Route: IVP; em Site: right antecubital; 09:38 Follow up: Response: No adverse reaction em 08:42 Drug: Lasix 20 mg Route: IVP; Site: right antecubital; em 09:38 Follow up: Response: No adverse reaction em 09:50 Drug: Etomidate 10 mg Route: IVP; Site: left antecubital; em 09:52 Follow up: Response: No adverse reaction em 09:50 Drug: Rocuronium 100 mg Route: IVP; Site: left antecubital; em 09:52 Follow up: Response: No adverse reaction em 10:14 Drug: Propofol 5 mcg/kg/min Route: IV; Rate: calculated rate; Site: left antecubital; em 11:18 Follow up: Response: No adverse reaction; IV Status: Infusion continued upon transfer; em started propofol at 10mcg/min/hr, titrated up to 15mcg/min/hr at 1055 11:11 Drug: D50W 25 ml Route: IVP; Site: right antecubital; em 11:34 Follow up: Response: No adverse reaction; Blood sugar is elevated em Point of Care Testing: Blood Glucose: 09:38 Blood Glucose: 85 mg/dL; em 11:05 Blood Glucose: 70 mg/dL; em 11:30 Blood Glucose: 107 mg/dL; em Ranges: Intake: 09:00 IV: 10ml; Total: 10ml. em 09:38 IV: 100ml; Total: 110ml. em Ventilator: 09:58 Fi02: 50%; Rate: 16min; T.V.: 500ml; Peep: 5cm; em Outcome: 08:31 Decision to Hospitalize by Provider. jr8 11:44 Admitted to ICU accompanied by nurse, via wheelchair, room 1, with oxygen, on monitor, em with chart, Report called to BENTON Karimi 11:44 Condition: stable 11:44 Instructed on the need for admit. em 11:45 Patient left the ED. NIH Stroke Scale - NIH Stroke Score Date: 08/19/2019 Time: 06:45 Total Score = 36 1a. Level of Consciousness (LOC) - 3(Unresponsive) 1b. Level of Consciousness (LOC) (Year \T\ Age) - 2(Neither) 1c. LOC Commands (Open \T\ Closes Eyes/Field Case Manager) - 2(Neither) 2. Best Gaze (Lateral Gaze Paresis) - 0(Normal) 3. Visual Field Loss - 0(No visual loss) 4. Facial Palsy - 3(Complete paralysis) 5a. Left Arm: Motor (10-second hold) - 4(No movement) 5b. Right Arm: Motor (10-second hold) - 4(No movement) 6a. Left Leg: Motor (5-second hold - always test supine) - 4(No movement) 6b. Right Leg: Motor (5-second hold - always test supine) - 4(No movement) 7. Limb Ataxia (finger/nose \T\ heel/mccann - test with eyes open) - 2(Present in two limbs) 8. Sensory Loss (pinprick arms/legs/face) - 1(Mild to moderate loss) 9. Best Language: Aphasia (description/naming/reading) - 3(Mute, global aphasia) 10. Dysarthria (speech clarity - read or repeat words) - 2(Severe) 11. Extinction and Inattention (visual/tactile/auditory/spatial/personal) - 2(Profound) Initials: hernando NIH Stroke Scale - NIH Stroke Score Date: 08/19/2019 Time: 07:36 Total Score = 27 1a. Level of Consciousness (LOC) - 1(Not Alert) 1b. Level of Consciousness (LOC) (Year \T\ Age) - 2(Neither) 1c. LOC Commands (Open \T\ Closes Eyes/Field Case Manager) - 2(Neither) 2. Best Gaze (Lateral Gaze Paresis) - 1(Partial gaze palsy) 3. Visual Field Loss - 1(Partial hemianopia) 4. Facial Palsy - 0(Normal) 5a. Left Arm: Motor (10-second hold) - 4(No movement) 5b. Right Arm: Motor (10-second hold) - 4(No movement) 6a. Left Leg: Motor (5-second hold - always test supine) - 4(No movement) 6b. Right Leg: Motor (5-second hold - always test supine) - 4(No movement) 7. Limb Ataxia (finger/nose \T\ heel/mccann - test with eyes open) - 9(Amputation, joint fusion) - Notes: unable to test 8. Sensory Loss (pinprick arms/legs/face) - 0(Normal) 9. Best Language: Aphasia (description/naming/reading) - 2(Severe aphasia) 10. Dysarthria (speech clarity - read or repeat words) - 2(Severe) 11. Extinction and Inattention (visual/tactile/auditory/spatial/personal) - 0(No abnormality) Initials: jrGeraldine Signatures: Jack Leos RN Kevin Hughes RN RN Priya Del Toro RN RN bb Smirch, Shelby, Daylin Sherwood RN, RN RN lp1 Jesús Crabtree PA PA jr8 Casey Berrios RN RN rr5 Jack Leos RN sg Corrections: (The following items were deleted from the chart) 11:18 10:20 Reassessment: Patient appears in no apparent distress at this time. pt em sedated, skin pink warm and dry, respirations even pt on ventilator em 08:23 Reassessment: No changes from previously documented assessment. Patient em states symptoms have not improved. em 09:05 Reassessment: No changes from previously documented assessment. RT at em bedside for ABG Patient states symptoms have not improved. em 02 08:33 02/ 10:35 Reassessment: No changes from previously documented assessment. em ADRIEN Espinosa at bedside for intubation em
--- NOTE | 2019-08-19 08:32 | EDPHYS ---
Physician Documentation [facility] Name: Macrina Mason Age: 73 yrs Sex: Female : 1945 Arrival Date: 08/19/2019 Time: 06:37 Bed 4 Private MD: ED Physician Kevyn Carrillo HPI: 08/19 07:36 This 73 yrs old Female presents to ER via EMS with complaints of Altered jr8 Mental Status. 07:36 The patient presents with decreased mental status, decreased responsiveness. Onset: The jr8 symptoms/episode began/occurred acutely, today, at an unknown time. Last known well 0100 this AM. Possible causes: unknown. Current symptoms: In the emergency department the patient's symptoms are unchanged from the initial presentation. Patient's baseline: Neuro: alert and fully oriented, Motor: no deficits, Ambulation: walks with assist only, uses walker, Speech: normal. It is unknown whether or not the patient has had similar symptoms in the past. The patient has been recently seen at the [facility] Emergency [facility], last week, for unrelated complaints, Nurse reports normal mentation at that time . NE staff went to check on patient this AM. Stated that she got xanax last night. Found her unresponsive this morning and could not arouse her. Last known normal 0100 this AM. Patient minimally responsive to painful stimulus upon arrival but with normal saturation . Historical: - Allergies: 06:59 No Known Allergies; bb - Home Meds: 07:19 Breo Ellipta 200-25 mcg/dose inhalation dsdv 1 puff once daily [Active]; promethazine bb 25 mg Oral tab 1 tab every 6 hours [Active]; mirtazapine 30 mg Oral tab 1 tab once daily [Active]; levothyroxine 200 mcg tab 1 tab once daily [Active]; trazodone 50 mg Oral tab nightly [Active]; Amitiza 24 mcg Oral cap 1 cap 2 times per day [Active]; amitriptyline 25 mg Oral tab 1 tab 2 times per day [Active]; aspirin 325 mg Oral tab 1 tab once daily [Active]; atorvastatin 20 mg Oral tab 1 tab once daily [Active]; Bisacodyl Oral as needed [Active]; bupropion HCl 300 mg Oral Tb24 1 tab once daily [Active]; carbamazepine 200 mg Oral CM12 1 cap 2 times per day [Active]; carvedilol 6.25 mg Oral tab 1 tab 2 times per day [Active]; diclofenac sodium 75 mg Oral TbEC 1 tab 2 times per day [Active]; divalproex 500 mg Oral Tb24 1 tab once daily [Active]; donepezil 10 mg Oral tab 1 tab twice a day [Active]; duloxetine 60 mg Oral cpDR 1 cap once daily [Active]; fexofenadine 180 mg Oral tab 1 tab once daily [Active]; flaxseed oil 1,000 mg Oral cap daily [Active]; folic acid 800 mcg Oral tab 1 tab once daily [Active]; gabapentin 800 mg Oral tab 3 times per day [Active]; lisinopril 2.5 mg Oral tab 1 tab twice a day [Active]; lorazepam 0.5 mg Oral tab 1 tab 2 times per day [Active]; memantine 10 mg Oral tab 1 tab 2 times per day [Active]; oxybutynin chloride 5 mg Oral tr24 2 tabs once daily [Active]; topiramate 100 mg Oral CSpX 1 cap once daily [Active]; - PMHx: 07:19 allergies; Back pain; Bipolar disorder; COPD; DVT; Schizophrenia; bb - PSHx: 07:19 Hysterectomy; eye surgery; both knee replacement; bb - Immunization history:: Adult Immunizations unknown. - Coronavirus screen:: The patient has NOT traveled to [place] in the past 14 days. Proceed with normal triage process as indicated. - Social history:: Smoking status: unknown. - Ebola Screening: : No symptoms or risks identified at this time. ROS: 07:36 Unable to obtain ROS due to altered mental status, obtunded state. jr8 Exam: 07:36 Eyes: Pupils: right pupil is approximately 4 mm(s), left pupil is approximately 4 jr8 mm(s), irregularly shaped, in the right eye, reactive, Conjunctiva: normal, Corneas: are normal, Sclera: no appreciated abnormality, Anterior chamber: normal, Lids and lashes: appear normal. 07:36 ENT: External ear(s): are unremarkable, Ear canal(s): are normal, clear, TM's: are normal, Nose: External nose: no obvious acute abnormality, Nasal septum: is midline, Nasal mucosa: moist, Turbinates: are normal, Mouth: Lips: dry, Oral mucosa: dry, Gums: pink, Tongue: is normal, Posterior pharynx: Airway: patent, Uvula: midline, swelling, is not appreciated, erythema, is not appreciated. 07:36 Neck: External neck: is normal, C-spine: crepitus, is not appreciated, Trachea: is midline with no obvious abnormalities, ROM/movement: nuchal rigidity, is not appreciated, Lymph nodes: no appreciated lymphadenopathy. 07:36 Cardiovascular: Rate: normal, Rhythm: regular, Pulses: Pulses are 2+ in right radial artery and left radial artery. Heart sounds: normal, normal S1and S2, no S3 or S4, no murmur, no rub, no gallop, Edema: is not appreciated, JVD: is not appreciated. 07:36 Respiratory: the patient does not display signs of respiratory distress, Respirations: shallow respirations, that is mild, Breath sounds: are clear throughout, no bronchial sounds, no decreased breath sounds, no rales, rhonchi, no stridor, no wheezing. 07:36 Abdomen/GI: Inspection: obese Bowel sounds: active, all quadrants, Palpation: soft, in all quadrants, Liver: no appreciated palpable abnormalities. 07:36 Skin: Appearance: Color: normal in color, Temperature: cool. 07:36 Neuro: Orientation: Not oriented to person, place, time, situation, Mentation: unable to follow commands, somnolent, responsive to pain, Motor: Flaccid in right arm, left arm, right leg and left leg. Sensation: no obvious gross deficits, seizure activity, is not displayed by the patient, Abnormal movements: there are no abnormal movements. 08:08 ECG was reviewed by the Attending Physician. jr8 Vital Signs: 06:59 BP 177 / 84; Pulse 57; Resp 10 S; Pulse Ox 98% on R/A; Weight 108.86 kg (R); Height 5 bb ft. 7 in. (170.18 cm) (R); Pain 0/10; 07:10 BP 193 / 92; Pulse 69; Resp 18; Temp 95.5(C); Pulse Ox 100% on 4 lpm NC; lp1 07:20 BP 201 / 92; Pulse 66; Temp 95.6; Pulse Ox 100% on 4 lpm NC; sg 07:27 BP 160 / 85; Pulse 68; Pulse Ox 100% on 4 lpm NC; em 07:40 BP 154 / 67; Pulse 54; Resp 14 S; Temp 95.6(C); Pulse Ox 100% on 4 lpm NC; em 08:00 BP 172 / 80; Pulse 84; Resp 12 S; Temp 95.7(C); Pulse Ox 100% on 4 lpm NC; em 08:30 BP 161 / 63; Pulse 59; Resp 14 S; Temp 95.9(C); Pulse Ox 100% on 4 lpm NC; em 08:50 BP 164 / 75; Pulse 63; Resp 16; Pulse Ox 100% on 4 lpm NC; em 09:10 BP 111 / 82; Pulse 62; Resp 18; Pulse Ox 99% on 4 lpm NC; em 09:48 BP 108 / 63; Pulse 65; Resp 12; Pulse Ox 100% on Nebulizer Mask; em 09:55 BP 163 / 96; Pulse 83; Resp 16 A; Pulse Ox 100% on ETT ambu; em 09:58 BP 177 / 85; Pulse 75; Resp 18 A; Pulse Ox 100% on 50% FiO2 ETT vent; em 10:15 BP 108 / 96; Pulse 79; Resp 18 A; Pulse Ox 100% on 50% FiO2 ETT vent; em 10:20 BP 120 / 80; Pulse 74; Resp 18 A; Pulse Ox 99% on 50% FiO2 ETT vent; em 10:30 BP 155 / 73; Pulse 75; Resp 22 A; Temp 97.0(C); Pulse Ox 100% on 50% FiO2 ETT vent; em 11:00 BP 161 / 95; Pulse 72; Resp 21; Pulse Ox 100% on 50% FiO2 ETT vent; em 11:10 BP 157 / 65; Pulse 65; Resp 18 A; Temp 97.2(C); em 06:59 Body Mass Index 37.59 (108.86 kg, 170.18 cm) bb 07:20 a kae hugger has been applied, Jesús JURADO notified of pt condition and VS sg NIH Stroke Scale Scores: 06:45 NIHSS Score: 36 bb 07:36 NIHSS Score: 27 jr8 [place] Coma Score: 08:08 Eye Response: to pain(2). Verbal Response: incomprehensible(2). Motor Response: jr8 withdraws from pain(4). Total: 8. Ventilator: 09:58 Fi02: 50%; Rate: 16min; T.V.: 500ml; Peep: 5cm; em Procedures: 10:10 Intubation: Ventilated with 100% NRB prior to procedure. O2 saturation prior to jr8 procedure was 100 %. Intubated orally using # 4 Harini blade with 7.5 mm ETT. was successful on first attempt. Ventilated with Ambu bag. ventilator. Tube secured with ETT gonzalez at center of mouth measured 23 cm at lip. Placement verified by CXR, CO2 detector with (+) color change, auscultating bilateral breath sounds, O2 saturation after procedure was 100 %. Patient tolerated well. MDM: 06:43 Patient medically screened. jr8 08:23 Differential Diagnosis: CVA, electrolyte abnormality, hypoglycemia, intracranial bleed, jr8 overdose, pneumonia, sepsis, UTI, volume depletion. Data reviewed: vital signs, nurses notes, lab test result(s), EKG, radiologic studies, plain films. Data interpreted: Pulse oximetry: on room air is 100 %. Interpretation: normal. Counseling: I had a detailed discussion with the patient and/or guardian regarding: the historical points, exam findings, and any diagnostic results supporting the discharge/admit diagnosis, lab results, radiology results, the need for further work-up and treatment in the hospital. ED course: Patient with minimal improvement at this time. Will admit to ICU for Acute renal failure, Hyperkalemia, Hypermagnesemia, Encephalopathy, UTI, Hypothermia for further evaluation . 08:29 Physician consultation: Holland Gutierres DO was called at 08:30, was contacted at 08:30, jr8 regarding admission, to the ICU, consult, patient's condition, and will see patient in ED. 10:11 ED course: After talking with Dr. Gutierres post ABG. Opted to intubate at this time due jr8 to AMS with hypoventilation that is starting to affect her pH balance. 08/19 06:42 Order name: Troponin (emerg Dept Use Only) 08/19 06:42 Order name: Magnesium 08/19 06:42 Order name: Basic Metabolic Panel 08/19 06:42 Order name: CBC with Diff 08/19 06:42 Order name: Protime (+inr) 08/19 06:42 Order name: Ptt, Activated 08/19 06:43 Order name: UDS 08/19 06:43 Order name: Urine Microscopic Only 08/19 06:48 Order name: Blood Culture Adult (2) [facility] 08/19 06:48 Order name: Procalcitonin [facility] 08/19 06:48 Order name: Lactate [facility] 08/19 06:48 Order name: TSH [facility] 08/19 06:48 Order name: T4 Free [facility] 08/19 06:48 Order name: Depakote [facility] 08/19 07:01 Order name: Glucose, Ancillary Testing; Complete Time: 07:28 EDMS 08/19 07:15 Order name: Urine Dipstick--Ancillary (enter results) 08/19 07:20 Order name: CBC with Automated Diff; Complete Time: 07:28 EDMS 08/19 07:20 Order name: Protime (+INR); Complete Time: 07:28 EDMS 08/19 07:20 Order name: PTT, Activated Partial Thromb; Complete Time: 07:28 EDMS 08/19 07:24 Order name: Urine Drug Screen; Complete Time: 07:28 EDMS 08/19 07:28 Order name: Lactate; Complete Time: 07:30 EDMS 08/19 07:48 Order name: Basic Metabolic Panel; Complete Time: 08:50 EDMS 08/19 07:48 Order name: Troponin (Emerg Dept Use Only); Complete Time: 08:50 EDMS 08/19 07:48 Order name: Magnesium; Complete Time: 08:50 EDMS 08/19 08:04 Order name: Urine Microscopic Only; Complete Time: 08:08 EDMS 08/19 08:08 Order name: T4 Free; Complete Time: 08:09 EDMS 08/19 08:08 Order name: Valproic Acid (Depakene) Level; Complete Time: 08:08 EDMS 08/19 08:08 Order name: Thyroid Stimulating Hormone; Complete Time: 08:09 EDMS 08/19 08:18 Order name: Procalcitonin; Complete Time: 08:20 EDMS 08/19 08:22 Order name: LAB Add On [facility] 08/19 06:42 Order name: CT Stroke Brain w/o Contrast 08/19 06:42 Order name: Stroke CXR 1 View 08/19 06:42 Order name: EKG; Complete Time: 06:44 08/19 06:42 Order name: Accucheck; Complete Time: 07:08 bb 08/19 07:10 Order name: CT; Complete Time: 07:28 EDMS 08/19 08:17 Order name: RAD; Complete Time: 08:20 EDMS 08/19 08:29 Order name: MRI - Brain Wo Cont 8 08/19 08:33 Order name: Urine Dipstick-Ancillary; Complete Time: 08:37 EDMS 08/19 08:43 Order name: NT PRO-BNP; Complete Time: 08:50 EDMS 08/19 08:58 Order name: ABG 08/19 09:39 Order name: ABG Arterial Blood Gas; Complete Time: 10:08 EDMS 08/19 09:52 Order name: Glucose, Ancillary Testing; Complete Time: 10:08 EDMS 08/19 10:05 Order name: Sputum Culture 08/19 10:14 Order name: XRAY Chest (1 view) [facility] 08/19 10:27 Order name: XRAY Abdomen 1 View [facility] 08/19 11:06 Order name: Glucose, Ancillary Testing; Complete Time: 11:08 EDMS 08/19 11:18 Order name: RAD; Complete Time: 11:19 EDMS 08/19 11:25 Order name: RAD; Complete Time: 11:32 EDMS 08/19 11:34 Order name: Blood Culture [facility] 08/19 06:42 Order name: Cardiac monitoring; Complete Time: 07:08 08/19 06:42 Order name: EKG - Nurse/Tech; Complete Time: 07:08 08/19 06:42 Order name: IV Saline Lock; Complete Time: 07:08 08/19 06:42 Order name: Labs collected and sent; Complete Time: 07:08 08/19 06:42 Order name: NPO; Complete Time: 07:08 bb 08/19 06:42 Order name: O2 Per Protocol; Complete Time: 07:08 bb 08/19 06:42 Order name: O2 Sat Monitoring; Complete Time: 07:09 08/19 06:42 Order name: Stroke Swallow Screen; Complete Time: 07:09 08/19 06:43 Order name: Straight Cath; Complete Time: 07:08 bb EC:08 Rate is 60 beats/min. Rhythm is regular, Sinus Rhythm. Left axis deviation noted. AR jr8 interval is prolonged at 210 msec. QRS interval is normal. QT interval is normal. No Q waves. T waves are Inverted in lead III. No ST changes noted. Clinical impression: 1st degree heart block and No evidence of ischemia. Interpreted by me. Reviewed by me. Administered Medications: 07:25 Drug: hydrALAZINE 5 mg Route: IV; Rate: calculated rate; Site: right antecubital; em 08:00 Follow up: Response: No adverse reaction; Blood pressure is lowered; IV Status: em Completed infusion 07:37 Not Given (Physician Discretion): hydrALAZINE 10 mg IV at calculated rate once em 08:08 Drug: Rocephin 1 grams Route: IV; Rate: calculated rate; Site: left antecubital; em 09:00 Follow up: Response: No adverse reaction; IV Status: Completed infusion; IV Intake: 10mlem 08:23 Drug: NS 0.9% 1000 ml Route: IV; Rate: 1000 ml; Site: left antecubital; em 08:25 Drug: D50W 50 ml Route: IVP; Site: left antecubital; em 09:38 Follow up: Response: No adverse reaction em 08:38 Drug: Albuterol 2.5 mg Route: Inhalation; em 09:42 Follow up: Response: No adverse reaction em 08:38 Drug: Albuterol 2.5 mg Route: Inhalation; em 08:38 Drug: Albuterol 2.5 mg Route: Inhalation; em 08:38 Drug: Calcium Gluconate 1 grams Route: IVPB; Infused Over: 60 mins; Site: left em antecubital; 09:38 Follow up: Response: No adverse reaction; IV Status: Completed infusion; IV Intake: em 100ml 08:40 Drug: Insulin Regular Human 10 units {Co-Signature: sg (Jack Leos RN).} Route: IVP; em Site: right antecubital; 09:38 Follow up: Response: No adverse reaction em 08:42 Drug: Lasix 20 mg Route: IVP; Site: right antecubital; em 09:38 Follow up: Response: No adverse reaction em 09:50 Drug: Etomidate 10 mg Route: IVP; Site: left antecubital; em 09:52 Follow up: Response: No adverse reaction em 09:50 Drug: Rocuronium 100 mg Route: IVP; Site: left antecubital; em 09:52 Follow up: Response: No adverse reaction em 10:14 Drug: Propofol 5 mcg/kg/min Route: IV; Rate: calculated rate; Site: left antecubital; em 11:18 Follow up: Response: No adverse reaction; IV Status: Infusion continued upon transfer; em started propofol at 10mcg/min/hr, titrated up to 15mcg/min/hr at 1055 11:11 Drug: D50W 25 ml Route: IVP; Site: right antecubital; em 11:34 Follow up: Response: No adverse reaction; Blood sugar is elevated em Point of Care Testing: Blood Glucose: 09:38 Blood Glucose: 85 mg/dL; em 11:05 Blood Glucose: 70 mg/dL; em 11:30 Blood Glucose: 107 mg/dL; em Ranges: Critical Glucose Levels:Adult <50 mg/dl or >400 mg/dl <40 mg/dl or >180 mg/dl Disposition: 08:30 Critical Care:. jr8 19:04 Co-signature as Attending Physician, Kevyn Carrillo MD I agree with the assessment and kdr plan of care. Disposition: 08/19/19 08:31 Hospitalization ordered by Holland Gutierres for Inpatient Admission. Preliminary diagnosis are Hypothermia, Acute kidney failure, Hypermagnesemia, Hyperkalemia, Encephalopathy, unspecified, Acute combined systolic (congestive) and diastolic (congestive) heart failure. - Bed requested for Intensive Care Unit. - Status is Inpatient Admission. ss - Condition is Fair. - Problem is new. - Symptoms are unchanged. Critical care time excluding procedures: 08:30 Critical care time: Bedside Care: 20 minutes, Consultation: 10 minutes. Total time: 30 jr8 minutes NIH Stroke Scale - NIH Stroke Score Date: 08/19/2019 Time: 06:45 Total Score = 36 1a. Level of Consciousness (LOC) - 3(Unresponsive) 1b. Level of Consciousness (LOC) (Year \T\ Age) - 2(Neither) 1c. LOC Commands (Open \T\ Closes Eyes/Benefits Specialist) - 2(Neither) 2. Best Gaze (Lateral Gaze Paresis) - 0(Normal) 3. Visual Field Loss - 0(No visual loss) 4. Facial Palsy - 3(Complete paralysis) 5a. Left Arm: Motor (10-second hold) - 4(No movement) 5b. Right Arm: Motor (10-second hold) - 4(No movement) 6a. Left Leg: Motor (5-second hold - always test supine) - 4(No movement) 6b. Right Leg: Motor (5-second hold - always test supine) - 4(No movement) 7. Limb Ataxia (finger/nose \T\ heel/mccann - test with eyes open) - 2(Present in two limbs) 8. Sensory Loss (pinprick arms/legs/face) - 1(Mild to moderate loss) 9. Best Language: Aphasia (description/naming/reading) - 3(Mute, global aphasia) 10. Dysarthria (speech clarity - read or repeat words) - 2(Severe) 11. Extinction and Inattention (visual/tactile/auditory/spatial/personal) - 2(Profound) Initials: hernando NIH Stroke Scale - NIH Stroke Score Date: 08/19/2019 Time: 07:36 Total Score = 27 1a. Level of Consciousness (LOC) - 1(Not Alert) 1b. Level of Consciousness (LOC) (Year \T\ Age) - 2(Neither) 1c. LOC Commands (Open \T\ Closes Eyes/Benefits Specialist) - 2(Neither) 2. Best Gaze (Lateral Gaze Paresis) - 1(Partial gaze palsy) 3. Visual Field Loss - 1(Partial hemianopia) 4. Facial Palsy - 0(Normal) 5a. Left Arm: Motor (10-second hold) - 4(No movement) 5b. Right Arm: Motor (10-second hold) - 4(No movement) 6a. Left Leg: Motor (5-second hold - always test supine) - 4(No movement) 6b. Right Leg: Motor (5-second hold - always test supine) - 4(No movement) 7. Limb Ataxia (finger/nose \T\ heel/mccann - test with eyes open) - 9(Amputation, joint fusion) - Notes: unable to test 8. Sensory Loss (pinprick arms/legs/face) - 0(Normal) 9. Best Language: Aphasia (description/naming/reading) - 2(Severe aphasia) 10. Dysarthria (speech clarity - read or repeat words) - 2(Severe) 11. Extinction and Inattention (visual/tactile/auditory/spatial/personal) - 0(No abnormality) Initials: jr8 Signatures: Dispatcher [employer] Jcak Caldwell RN RN sg Kevyn Carrillo MD MD [facility] Kevin Guevara, RN RN Priya Del Toro RN RN bb Smirch, Shelby, RN RN ss Jesús Crabtree PA PA jr8 Stephan Boyd RN RN ja1 Lesly Trevino Jack Leos RN sg Corrections: (The following items were deleted from the chart) 08:33 08:31 Hospitalization Ordered by Holland Gutierres DO for Inpatient Admission. eb Preliminary diagnosis is Hypothermia; Acute kidney failure; Hypermagnesemia; Hyperkalemia; Encephalopathy, unspecified; Acute combined systolic (congestive) and diastolic (congestive) heart failure. Bed requested for Intensive Care Unit. Status is Inpatient Admission. Condition is Fair. Problem is new. Symptoms are unchanged. jr8 09:22 08:33 08/19/2019 08:31 Hospitalization Ordered by Holland Gutierres DO for [facility] Inpatient Admission. Preliminary diagnosis is Hypothermia; Acute kidney failure; Hypermagnesemia; Hyperkalemia; Encephalopathy, unspecified; Acute combined systolic (congestive) and diastolic (congestive) heart failure. Bed requested for Intensive Care Unit. Status is Inpatient Admission. Condition is Fair. Problem is new. Symptoms are unchanged. eb 11:45 09:22 08/19/2019 08:31 Hospitalization Ordered by Holland Gutierres DO for Inpatient Admission. Preliminary diagnosis is Hypothermia; Acute kidney failure; Hypermagnesemia; Hyperkalemia; Encephalopathy, unspecified; Acute combined systolic (congestive) and diastolic (congestive) heart failure. Bed requested for Intensive Care Unit. Status is Inpatient Admission. Condition is Fair. Problem is new. Symptoms are unchanged. ja1
[2019-08-19 08:33] LABS: Urine Blood NEGATIVE (NEG); Urine Glucose NEGATIVE (NEG); Urine Protein NEGATIVE (NEG); Urine Specific Gravity 1.015 (1.005-1.030)
[2019-08-19] MEDS ORDERED: CALCIUM GLUCONATE 1gm/100 ML NS (4.65 mEq/100mL) IV ONE ×2 (09:00)
[2019-08-19] MEDS ORDERED: MIDAZOLAM HCL 2 MG/2 ML INJ ONE (09:27)
[2019-08-19] MEDS ORDERED: RSI MEDICATION KIT IV ONE (09:27)
[2019-08-19 09:35] LABS: Blood Gas Oxyhemoglobin 96.9 % (94-97)
--- NOTE | 2019-08-19 09:55 | P.HP ---
Certification for Inpatient Patient admitted to: Inpatient With expected LOS: >2 Midnights Patient will require the following post-hospital care: Other (group home) Practitioner: I am a practitioner with admitting privileges, knowledge of patient current condition, hospital course, and medical plan of care. Services: Services provided to patient in accordance with Admission requirements found in Title 42 Section 412.3 of the Code of Federal Regulations Patient History Date of Service: 08/19/19 Primary Care Provider: group home physician Reason for admission: Altered mental status History of Present Illness: 73-year-old female with history of dementia, seizure disorder, COPD, bipolar disorder, hypothyroidism. Patient with recent bacteremia and UTI with culture showing E coli. [facility] Bactrim and Macrobid. Most of the information came from the ER physician and . reports patient was doing well. He visited her yesterday. Patient was acting appropriately. Her mentation was at her baseline yesterday. She does have underlying severe dementia. Patient presented to the emergency room with altered mental state. Patient had increased somnolence. Vital signs were stable other than blood pressure slightly elevated. She was hyperthermic with a temperature of 95. Patient required oxygen. Workup included CT head showed no evidence of stroke. Chest x -ray showed possible volume overload. Troponin 0.09. BUN of 30, creatinine 1.93 with a GFR of 20. Glucose 84. Sodium 139, potassium 6.2. Chloride 107, bicarb 27. PH is 7.33 with a pCO2 of 47. Procalcitonin unremarkable. Lactic acid unremarkable. Patient was given calcium gluconate in the emergency room along with blood pressure medication. Case discussed with ER physician due to her increased somnolence and poor respirations patient will be intubated. Patient will be transferred to ICU for further evaluation. When I saw the patient in the ER, she had increased somnolence. Minimal response to pain. Respirations low. Patient was still hypothermic. Allergies No Known Allergies Allergy (Verified 07/17/19 19:33) Home medications list reviewed: Yes Home Medications: Aspirin 325 mg PO Q6HP PRN 07/18/19 Diclofenac Sodium 75 mg PO BID 07/18/19 Divalproex Sodium 500 mg PO BID 07/18/19 Donepezil HCl 10 mg PO BID 07/18/19 Duloxetine HCl 60 mg PO DAILY 07/18/19 Flaxseed Oil 1,000 mg PO DAILY 07/18/19 Fluticasone/Vilanterol [Breo Ellipta 200-25 Mcg INH] 1 each IH PRN 07/18/19 Folic Acid 0.4 mg PO DAILY 07/18/19 Gabapentin 800 mg PO TID 07/18/19 Hydrocodone Bit/Acetaminophen [Hydrocodon-Acetaminophen 5-325] 1 each PO Q6HP PRN 07/18/19 Levothyroxine Sodium 25 mcg PO [id number] 07/18/19 Memantine HCl 10 mg PO BID 07/18/19 Mirtazapine 30 mg PO BEDTIME 07/18/19 Oxybutynin Chloride 5 mg PO BID 07/18/19 Promethazine HCl 25 mg PO Q6HP PRN 07/18/19 Propranolol HCl 20 mg PO BID 07/18/19 Sumatriptan [Imitrex*] 100 mg PO PRN 07/18/19 Tizanidine [Zanaflex*] 4 mg PO BID 07/18/19 Trazodone [Desyrel*] 50 mg PO BEDTIME 07/18/19 Cephalexin [Keflex] 500 mg PO Q6HR 14 Days #56 cap 07/21/19 Diphenhydramine [Benadryl*] 25 mg PO DAILY PRN 07/21/19 - Past Medical/Surgical History Diabetic: No -: Bipolar disorder -: Schizoaffective disorder -: COPD -: History of DVT-cannot describe further/in neck -: Hypertension -: Hypothyroidism -: Hyperlipidemia -: Dementia -: Chronic pain with neuropathy -: Chronic renal disease -: Complete hysterectomy -: sb knee replacement Psychosocial/ Personal History: Patient [facility]. - Family History Mother -: Heart disease, Lung disease Notes: COPD Father -: Heart disease, Diabetes Notes: quadruple bypass - Social History Smoking Status: Unknown if ever smoked Alcohol use: No CD- Drugs: No Caffeine use: No Place of Residence: [place] Review of Systems is unable to be obtained Physical Examination - Physical Exam General: Other (Increased somnolence noted. Poor response to pain.) HEENT: Atraumatic, Normocephalic Neck: Supple Respiratory: Other (Poor inspiration and expiration. Diminished the basis) Cardiovascular: Normal pulses, Regular rate/rhythm Gastrointestinal: Normal bowel sounds, Soft and benign, Non-distended, No tenderness Integumentary: Tenderness/swelling (Minimal edema to the lower extremities bilateral) Neurological: Other (Patient with history of severe dementia. Increased somnolence noted. Patient to be intubated.) - Studies Laboratory Data (last 24 hrs) 08/19/19 06:54: PT 11.0, INR 0.93, APTT 25.7 08/19/19 06:54: WBC 4.5, Hgb 10.2 L, Hct 31.8 L D, Plt Count 159 D 08/19/19 06:54: Sodium 139, Potassium 6.2 H*, BUN 30 H, Creatinine 1.93 H, Glucose 84, Magnesium 3.3 H D Assessment and Plan - Plan Impression: Acute encephalopathy likely multifactorial suspect recurrent UTI with bacteremia Acute on chronic renal failure stage 2 with hyperkalemia Acute respiratory failure with acute on chronic diastolic CHF exacerbation with history of COPD with elevated troponin Hypertension Bipolar disorder with schizoaffective disorder Severe dementia History of seizure disorder Anemia likely of chronic disease Plan: Acute encephalopathy likely multifactorial suspect recurrent UTI with bacteremia , hypothermia, acute renal failure, acute respiratory failure: Case discussed with the ER. Due to poor respiration patient will be admitted for acute respiratory failure. Patient with multiple medical issues. Patient recently on Bactrim/Macrobid for UTI/bacteremia. Previous cultures reviewed. Patient has E coli. Will start IV meropenem. Will continue with IV Lasix. Patient has been given calcium gluconate for hyperkalemia. Will also give 1 amp of D50 followed by 10 units of regular insulin IV. Patient will also require Kayexalate. This was recommended by Nephrology. Patient will be intubated due to acute respiratory failure. Pulmonology consulted for ICU management. Will continue with vent protocol. Cardiology consulted to further evaluate. Order echocardiogram and renal ultrasound. Will monitor telemetry and cardiac enzymes. Neurology also consulted. Will obtain MRI of brain once medically stable. Will also order EEG due to history of seizure disorder. Will continue with Depakote. Will monitor electrolytes closely. Bear hugger in place. Pharmacy consulted to monitor medications. Will provide PICC line. Dobhoff will be placed for nutrition. Will continue to reassess. Case discussed with . Advanced directives address with him. Patient is full code at this time. Acute on chronic renal failure stage 2 with hyperkalemia: Case discussed with Nephrology. Patient has received calcium gluconate. Patient will also receive 1 amp D50 with followed by insulin and Kayexalate. Will monitor electrolytes closely. Renal ultrasound obtained. Await further recommendations from Nephrology. Acute respiratory failure with acute on chronic diastolic CHF exacerbation with history of COPD with elevated troponin: Patient to be intubated. Continue vent protocol. Pulmonology consulted to further evaluate. Cardiology also consulted to further assess. Will continue with IV Lasix 20 mg IV twice daily. Will order echocardiogram. Monitor telemetry and cardiac enzymes. Will provide DVT prophylaxis-heparin. Hypertension: Will provide medication IV for elevated blood pressure. Bipolar disorder with schizoaffective disorder: Obtained and verify penitentiary medication. Severe dementia: Obtained and verify penitentiary medication History of seizure disorder: Neurology consulted. Continue with Depakote. Depakote level low. Will get MRI brain once medically stable. EEG also ordered. Anemia likely of chronic disease: Will monitor lab closely. Maintain hemoglobin above 7.0. Discharge Plan: [facility]way Plan to discharge in: Greater than 2 days - Advance Directives Does patient have a Living Will: No Does patient have a Durable POA for Healthcare: No - Code Status/Comfort Care Code Status Assessed: Yes (Patient is full code) Time Spent Managing Pts Care (In Minutes): 65
[2019-08-19] MEDS ORDERED: propofoL 1,000 MG/100 ML VIAL IV ONE (10:14)
--- NOTE | 2019-08-19 10:53 | RAD REPORT ---
EXAM DESCRIPTION: Zack Single View08/19/2019 10:43 am CLINICAL HISTORY: Device placement endotracheal tube placement IMPRESSION: An endotracheal tube has been inserted with its tip well above the bong. Nasogastric tube is present within the stomach
--- NOTE | 2019-08-19 11:15 | RAD REPORT ---
EXAM DESCRIPTION: RAD - Abdomen Single View - 08/19/2019 11:00 am CLINICAL HISTORY: Device placement NG tube placement FINDINGS: The tip of a NG tube lies within the mid stomach.
[2019-08-19] MEDS ORDERED: ACETAMINOPHEN 500 MG TAB PO PRN (11:27)
[2019-08-19] MEDS ORDERED: ALBUTEROL 2.5 MG/3 ML NEB SOL NEB PRN (11:27)
[2019-08-19] MEDS ORDERED: SOD POLYSTYREN SUL 15 GM/60 ML UCUP PO ONE ×2 (11:27→21:14)
[2019-08-19] MEDS ORDERED: ONDANSETRON 4 MG/2 ML VIAL IV PRN (11:27)
[2019-08-19] MEDS ORDERED: IPRATROPIUM BROM 0.5MG/2.5ML NEB PRN (11:27)
[2019-08-19] MEDS ORDERED: ACETAMINOPHEN 650MG/RECT SUPP PR PRN (11:27)
[2019-08-19] MEDS ORDERED: HYDRALAZINE HCL 20 MG/ML VIAL IV PRN (13:11)
[2019-08-19 13:41] VITALS: BMI 37.7
[2019-08-19] MEDS ORDERED: FENTANYL CITR 100 MCG/2 ML IV PRN (13:47)
[2019-08-19] MEDS ORDERED: MIDAZOLAM HCL 2 MG/2 ML INJ IV PRN (13:47)
[2019-08-19] MEDS ORDERED: HALOPERIDOL LACT 5 MG/ML INJ IV PRN (13:47)
[2019-08-19] MEDS: Meropenem 1,000 MG in NA CHLORIDE 0.9% 100 ML IV SCH ×2 (13:51→20:30)
[2019-08-19] MEDS ORDERED: METOPROLOL TAR 25 MG TAB ONE (13:51)
[2019-08-19] MEDS: LORazepam 2 MG/ML VIAL IV PRN ×2 (14:12→19:08)
--- NOTE | 2019-08-19 14:17 | CON ---
Reason For Consult: History of atrial fibrillation. History Of Present Illness: Ms. Mason is a 73-year-old woman. She lives in a senior living. She h as a history of atrial fibrillation and does not normally take any anticoagulant. I am really not young re of the reason for her living in a senior living or the reason for her present medications. In any event at about 1 o'clock this morning she was awake and asked the nurses at the senior living to get h er a sleeping pill. She received Xanax and this morning at 6 when they went in to wake her up she wa s unarousable. Medications: She receives in the senior living other than Xanax are Breo Ellipta, promethazine, judith zapine, levothyroxine, trazodone, Amitiza, amitriptyline, aspirin, atorvastatin, bupropion, carbamaze pine, carvedilol, diclofenac, donepezil, duloxetine, fexofenadine, flaxseed oil, folic acid, gabapent in, lisinopril 2.5 mg twice a day, lorazepam 0.5 b.i.d., memantine, oxybutynin, and topiramate. She has dementia, COPD, bipolar, depression, history of deep vein thrombosis, schizophrenia. She has had hysterectomy, eye surgery, both knees have been replaced. Physical Examination: General: The patient is intubated and comatose. HEENT: Pupils react. All of her pulses are palpab le. Lungs: Breath sounds are equal bilaterally. She is on a propofol drip but it has been turned off just to see if she not awaken. Extremities reve aled mild edema. A chest x-ray post intubation shows endotracheal tube at an acceptable level. Brai n CAT scan looks normal. There does not seem to be an infiltrate or mass or evidence of any signific ant pulmonary problem to account for her obtundation or comatose state. Impression: The patient probably is obtunded or comatose because of medications. She is on a lot of medications that could make her obtunded. Certainly, she received all at once that would be it, but I doubt if that happened and it could be that the combination of medications would probably have a l deisi half-life in her with the addition of Xanax just puts her over the edge. She has an elevated tro ponin of 0.09. This is not an acute coronary syndrome. She has a very elevated potassium, so I thin k we want to not give her any more spironolactone. We can do an echocardiogram again, but her echoca rdiograms in the past have not shown depressed ejection fraction, so the role of spironolactone in he r is questionable anyway, but now that we see a potassium of 6.2, I would recommend not giving spiron olactone any further. Thank you very much for your kind referral of Ms. Mason. I will follow her with you. SADA/MIGUEL ÁNGEL Voice ID: [id number] Report ID: [id number]
[2019-08-19] MEDS ORDERED: ROCURONIUM 50 MG/5 ML VIAL IV ONE (14:51)
[2019-08-19] MEDS ORDERED: ETOMIDATE 20 MG/10 ML VIAL IV ONE (14:51)
[2019-08-19] MEDS: propofoL 1,000 MG/100 ML VIAL IV PRN ×2 (15:35→20:10)
[2019-08-19 16:16] LABS: BUN Blood Urea Nitrogen 28 mg/dL (7-18); Bicarbonate 26 mmol/L (21-32); Glucose Level 83 mg/dL (74-106); Sodium Level 139 mmol/L (136-145)
[2019-08-19 16:17] LABS: Potassium 5.6 mmol/L (3.5-5.1)
[2019-08-19] MEDS: METHYLPREDNISOLONE 40 MG INJ IV SCH (16:46)
[2019-08-19] MEDS: METOPROLOL TAR 25 MG TAB PO SCH (16:46)
[2019-08-19] MEDS: FUROSEMIDE 20 MG/ 2ML VIAL IV SCH ×2 (16:46→16:56)
[2019-08-19 17:48] LABS: CKMB Creatine Kinase MB < 1.0 ng/mL (0.3-3.6); Creatine Phosphokinase 23 U/L (26-192); Troponin I 0.08 ng/mL (0.0-0.045)
[2019-08-19] MEDS: ARFORMOTEROL TARTRATE 15 MCG/2 ML VIAL.NEB NEB SCH (19:45)
[2019-08-19] MEDS: VALPROATE SODIUM INJ 500 MG in NA CHLORIDE 0.9% 100 ML IV SCH (20:29)
[2019-08-19] MEDS: HEPARIN 5000 UNIT/ML 1 ML VIAL SQ SCH (20:30)
[2019-08-19] MEDS: FAMOTIDINE 20 MG/2 ML VIAL IV SCH (20:32)
[2019-08-19 20:54] LABS: Potassium 6.2 mmol/L (3.5-5.1)
[2019-08-19] MEDS ORDERED: Meropenem 1000 MG/VIAL IV SCH (21:00)
[2019-08-19] MEDS ORDERED: LEVALBUTEROL 0.63 MG/3 ML NEB NEB ONE (21:11)
[2019-08-19] MEDS ORDERED: D50W 25 GM/50 ML SYRINGE/VIAL IV PRN (21:14)
[2019-08-19] MEDS ORDERED: GLUCAGON 1 MG/VIAL IM PRN (21:14)
[2019-08-19] MEDS ORDERED: INSULIN -REGULAR HUMAN 50 UNIT/0.5 ML ML IV ONE (21:15)
[2019-08-19] MEDS ORDERED: CALCIUM GLUC 10% INJ 4.65 MEQ in NA CHLORIDE 0.9% 100 ML IV ONE (21:16)
[2019-08-19] MEDS ORDERED: FUROSEMIDE 40 MG/4 ML VIAL IV ONE (21:26)
[2019-08-19] MEDS ORDERED: CALCIUM GLUCONATE 1 GM IVPB 1 GM/50 ML BAG IV ONE (21:30)
[2019-08-19] MEDS ORDERED: SOD POLYSTYREN SUL 15 GM/60 ML UCUP ONE (21:31)
[2019-08-20] MEDS: METHYLPREDNISOLONE 40 MG INJ IV SCH ×2 (00:31→08:46)
[2019-08-20] MEDS: propofoL 1,000 MG/100 ML VIAL IV PRN ×3 (00:32→08:25)
[2019-08-20 02:48] LABS: Potassium 5.3 mmol/L (3.5-5.1)
[2019-08-20 02:57] LABS: CKMB Creatine Kinase MB < 1.0 ng/mL (0.3-3.6); Creatine Phosphokinase 22 U/L (26-192); Troponin I 0.11 ng/mL (0.0-0.045)
[2019-08-20 04:47] LABS: Absolute Lymphocytes (CBC) 1.1 K/uL (0.7-4.9); Basophils % 0.3 % (0-1.3); Hematocrit 35.1 % (36.0-45.0); MPV 9.6 fL (7.6-11.3)
[2019-08-20 05:15] LABS: Thyroid Stimulating Hormone 1.51 uIU/mL (0.360-3.740)
[2019-08-20 05:18] LABS: Potassium 5.7 mmol/L (3.5-5.1)
[2019-08-20] MEDS ORDERED: LEVOTHYROXINE SODIUM 100 MCG VIAL IV SCH (06:00)
--- NOTE | 2019-08-20 06:25 | EKG ---
Test Date: 2019-08-19 Test Time: 06:55:55 Clutch Assembler: TOMI MEASUREMENT RESULTS: Intervals: Rate: 60 PA: 210 QRSD: 118 QT: 450 QTc: 450 [place]: P: 75 PA: 210 QRS: -43 T: 20 INTERPRETIVE STATEMENTS: Sinus rhythm with sinus arrhythmia with 1st degree AV block Left axis deviation Abnormal ECG Compared to ECG 07/17/2019 17:44:22 First degree AV block now present Myocardial infarct finding no longer present Supraventricular tachycardia is no longer present Electronically Signed On 08-20-19 06:24:55 LICENSED SALES ASSISTANT by Abraham Solomon
[2019-08-20 06:26] LABS: Arterial Blood Carboxyhemoglob 0.9 % (0-1.5); Blood Gas Oxyhemoglobin 95.7 % (94-97); Blood O2 Saturation 97.8 % (92-98.5)
[2019-08-20] MEDS: FUROSEMIDE 100 MG/10 ML VIAL IV SCH ×3 (06:46→21:10)
[2019-08-20] MEDS: METOPROLOL TAR 25 MG TAB PO SCH ×2 (06:46→17:33)
[2019-08-20] MEDS: ARFORMOTEROL TARTRATE 15 MCG/2 ML VIAL.NEB NEB SCH (08:01)
--- NOTE | 2019-08-20 08:01 | P.PN ---
Subjective Date of Service: 08/20/19 Primary Care Provider: alf physician Chief Complaint: Altered mental status Subjective: Other (Patient intubated at this time. Response to pain.) Physical Examination - Vital Signs Temperature: 96.7 F Blood Pressure: 123/52 Pulse: 68 Respirations: 12 Pulse Ox (%): 98 - Physical Exam General: Other (Patient is intubated. Patient response to pain better than yesterday.) HEENT: Atraumatic Neck: Supple Respiratory: Clear to auscultation bilaterally, Normal air movement Cardiovascular: Normal pulses, Regular rate/rhythm Gastrointestinal: Normal bowel sounds, No tenderness Musculoskeletal: No erythema, No warmth Integumentary: No tenderness/swelling, No erythema, No warmth, No cyanosis Neurological: Other (Response to pain noted) - Studies Laboratory Data (last 24 hrs) 08/19/19 06:54: Sodium 139, Potassium 6.2 H*, BUN 30 H, Creatinine 1.93 H, Glucose 84, Magnesium 3.3 H D Microbiology Data (last 24 hrs): 08/19/19 07:03 Blood - Blood Anaerobic Blood Culture - Final 08/19/19 06:54 Blood - Blood Anaerobic Blood Culture - Final Medications List Reviewed: Yes Assessment & Plan Discharge Plan: [facility] Plan to discharge in: Greater than 2 days Physician Review Additional Text: Impression: Acute encephalopathy likely multifactorial suspect recurrent UTI with bacteremia , hypothermia, acute renal failure, acute respiratory failure verses medication Acute on chronic renal failure stage 2 with hyperkalemia Acute respiratory failure with acute on chronic diastolic CHF exacerbation with history of COPD with elevated troponin Hypertension Bipolar disorder with schizoaffective disorder Severe dementia History of seizure disorder Anemia likely of chronic disease History of atrial fibrillation not on chronic anti coagulation therapy Plan: Acute encephalopathy likely multifactorial suspect recurrent UTI with bacteremia , hypothermia, acute renal failure, acute respiratory failure verses medication : Patient remains intubated at this time. Continue with IV meropenem. Blood and urine culture obtained. Patient received multiple rounds of medication for hyperkalemia. Potassium still elevated. Will recheck potassium this morning. Continue to wean off ventilator. There is some report that the patient received benzodiazepine at the skilled nursing before she had altered mental status changes. Urine drug screen was negative for benzodiazepine. Patient does take multiple medications. Multiple medications have been held. Will continue with Depakote. Will continue to monitor electrolytes. Will discuss with pulmonology, cardiology and nephrology. Once medically stable will obtain EEG and MRI. This will likely occur after she is extubated. Will continue to monitor closely. Acute on chronic renal failure stage 2 with hyperkalemia: Case discussed with Nephrology yesterday. Patient has received multiple rounds of medication for hyperkalemia. Potassium improving. Will recheck potassium at this time. If still elevated patient may require another round of medication to help with hyperkalemia. Aldactone has been discontinued. Continue with IV Lasix. Acute respiratory failure with acute on chronic diastolic CHF exacerbation with history of COPD with elevated troponin: Patient remains intubated. Continue vent protocol. Continue to wean off ventilator. Continue IV Lasix. Will obtain echocardiogram. Repeat chest x-ray today. Await further recommendation from pulmonology. Hypertension: Will provide medication IV for elevated blood pressure. Bipolar disorder with schizoaffective disorder: Patient takes multiple medications. Medications have been held. Urine drug screen was negative for benzodiazepine. Apparently patient received doses in the skilled nursing. Tylenol level within normal range. Severe dementia: Patient takes multiple medications. History of seizure disorder: Neurology consulted. Continue with Depakote. Depakote level low. Will get MRI brain and EEG once medically stable and off ventilator. Anemia likely of chronic disease: Will monitor lab closely. Maintain hemoglobin above 7.0. History of atrial fibrillation not on chronic anti coagulation therapy: Patient remains in sinus rhythm. Will monitor closely. Time Spent Managing Pts Care (In Minutes): 55
--- NOTE | 2019-08-20 08:09 | RAD REPORT ---
EXAM DESCRIPTION: US - Renal Ultrasound-Complete - 08/19/2019 9:24 pm CLINICAL HISTORY: acute renal failure COMPARISON: [facility] Protocol dated 08/09/2019 FINDINGS: The right kidney measures 9.3 x 3.9 by 5.2 cm. The left kidney measures 10.0 x 4.9 x 4.6 cm. Cortical thickness is within normal limits. There is increased cortical echogenicity which could be medical renal disease, body habitus artifact or combination. No hydronephrosis or suspicious renal mass. Urinary bladder assessment was limited due to decompressed state adjacent bowel. Overall exam is limited. Patient was on a ventilator with little ability to be repositioned or remove d for better acoustic window. IMPRESSION: No hydronephrosis or suspicious renal mass. Increased cortical echogenicity could be medical renal disease, body habitus artifact or a combinatio n.
--- NOTE | 2019-08-20 08:21 | RAD REPORT ---
EXAM DESCRIPTION: RAD - Chest Single View - 08/20/2019 7:02 am CLINICAL HISTORY: ETT placement COMPARISON: Chest Single View dated 08/19/2019 TECHNIQUE: AP portable chest image was obtained 08/20/2019 7:02 am . FINDINGS: ET tube remains in good position. Tip is mid aortic arch level. Lung volumes remain low. N o new or progressive lung parenchymal process. NG tube is in place well below the diaphragm. Heart and vasculature are normal. No measurable pleural effusion and no pneumothorax. No acute bony abnormality seen. No acute aortic findings suspected. IMPRESSION: No new or progressive finding from prior day imaging.
[2019-08-20] MEDS: HEPARIN 5000 UNIT/ML 1 ML VIAL SQ SCH ×2 (08:47→21:11)
[2019-08-20] MEDS: FAMOTIDINE 20 MG/2 ML VIAL IV SCH (08:47)
[2019-08-20] MEDS: VALPROATE SODIUM INJ 500 MG in NA CHLORIDE 0.9% 100 ML IV SCH (08:48)
[2019-08-20] MEDS ORDERED: FUROSEMIDE 40 MG/4 ML VIAL IV SCH (09:00)
[2019-08-20] MEDS: LORazepam 2 MG/ML VIAL IV PRN (09:00)
[2019-08-20] MEDS ORDERED: THIAMINE 200 MG/2 ML INJ IVP SCH (09:00)
--- NOTE | 2019-08-20 09:02 | P.CNS ---
Date of Consult: 08/20/19 Primary Care Provider: halfway physician Chief Complaint: Altered mental status patient on a ventilator History of Present Illness: Patient is 73 years of age admitted from a custodial was found unresponsive he is currently on propofol on a ventilator. Multiple medical issues E coli in the urine was also hyperkalemia GB side effect of the medication she has chronic renal failure currently on propofol drip unresponsive no evidence of a stroke and a CT 3-year-old female with history of dementia, seizure disorder, COPD, bipolar disorder, hypothyroidism. Patient with recent bacteremia and UTI with culture showing E coli. Patient was sent back to the custodial on Bactrim and Macrobid. Pro calcitonin is normal Allergies No Known Allergies Allergy (Verified 07/17/19 19:33) Home Medications: Acetaminophen [Tylenol] 650 mg PO Q6HR PRN MDD 3gm 08/19/19 Aspirin [Aspirin EC 325 MG] 325 mg PO Q6HR PRN 08/19/19 Diclofenac Na [Voltaren D.r*] 75 mg PO BID 08/19/19 Diclofenac Sodium [Voltaren] 100 gm TP DAILY PRN 08/19/19 Diphenhydramine [Benadryl Tab/Cap] 25 mg PO DAILY PRN 08/19/19 Divalproex Sodium [Depakote] 500 mg PO BID 08/19/19 Docusate Sodium 100 mg PO BID PRN 08/19/19 Donepezil HCl [Aricept] 10 mg PO BID 08/19/19 Duloxetine HCl [Drizalma Sprinkle] 60 mg PO DAILY 08/19/19 Enema, Fleet Adult [Fleet Enema Adult*] 1 bottle [place] DAILY PRN 08/19/19 Flaxseed Oil 1,000 mg PO DAILY 08/19/19 Fluticasone/Vilanterol [Breo Ellipta 200-25 Mcg INH] 1 inh IH DAILY 08/19/19 Folic Acid 0.4 mg PO DAILY 08/19/19 Gabapentin [Neurontin] 800 mg PO TID 08/19/19 Ipratropium/Albuterol Sulfate [Iprat-Albut 0.5-3(2.5) mg/3 ml] 3 ml NEB Q4H PRN 08/19/19 Levothyroxine Sodium 25 mcg PO DAILY 08/19/19 Mag Hydrox/Aluminum Hyd/Simeth [Sunita-Lanta Liquid] 30 ml PO Q4H PRN 08/19/19 Mag Hydroxide 8% [Milk Of Magnesia] 30 ml PO DAILY PRN 08/19/19 Magnesium Citrate [Citroma*] 1 bottle PO DAILY PRN 08/19/19 Melatonin 5 mg PO BEDTIME PRN PRN 08/19/19 Memantine HCl [Namenda] 10 mg PO BID 08/19/19 Mirtazapine [Remeron] 30 mg PO BEDTIME 08/19/19 Nitrofuran Macro [Macrobid*] 1 cap PO BID 08/19/19 Nystatin 1,000,000 unit TOP BID 08/19/19 Oxycodone HCl 5 mg PO BID 08/19/19 Phenol/Glycerin [Chloraseptic Max [place]] 2 spray PO Q4H PRN 08/19/19 Promethazine HCl 25 mg PO Q6HR PRN 08/19/19 Propranolol HCl 20 mg PO BID 08/19/19 Smz./Tmp. [Bactrim Ds 800 MG/160 MG] 1 tab PO BID 08/19/19 Sodium Chloride [Saline Nasal [place]] 2 spray IN BID PRN 08/19/19 Sumatriptan [Imitrex] 100 mg PO DAILY PRN 08/19/19 Tizanidine [Zanaflex*] 4 mg PO BID 08/19/19 Trazodone HCl [Desyrel] 200 mg PO DAILY 08/19/19 guaiFENesin [Sunita-Tussin] 5 ml PO Q6HR PRN 08/19/19 - Past Medical/Surgical History Diabetic: No -: Bipolar disorder -: Schizoaffective disorder -: COPD -: History of DVT-cannot describe further/in neck -: Hypertension -: Hypothyroidism -: Hyperlipidemia -: Dementia -: Chronic pain with neuropathy -: Chronic renal disease -: Complete hysterectomy -: sb knee replacement Psychosocial/ Personal History: Patient currently at custodial. - Family History Mother Medical History: Heart disease, Lung disease Notes: COPD Father Medical History: Heart disease, Diabetes Notes: quadruple bypass - Social History Smoking Status: Unknown if ever smoked Alcohol use: No CD- Drugs: No Caffeine use: No Place of Residence: [facility] Term Review of Systems is unable to be obtained Physical Examination Temp Pulse Resp BP Pulse Ox 96.7 F L 68 12 123/52 L 98 08/20/19 08:02 08/20/19 08:02 08/20/19 08:02 08/20/19 08:02 08/20/19 08:02 General: Unresponsive Respiratory: Clear to auscultation bilaterally Cardiovascular: No edema, Regular rate/rhythm Gastrointestinal: Normal bowel sounds, Soft and benign Musculoskeletal: No clubbing, No swelling - Problems (1) Respiratory failure Current Visit: Yes Status: Acute Plan: Patient is 73 years of age admitted with altered mental status she is currently on a ventilator propofol drip patient was mildly hypoxic hypercapnic on admission chest x-rays clear white count is normal vital signs stable plan to wean off the ventilator possible extubate continue with breathing treatments p.r.n. 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
--- NOTE | 2019-08-20 10:01 | CON ---
Date of Consultation: 08/19/2019 Requesting Provider: Dr. Holland Gutierres. Reason For Consultation: Acute kidney injury and hyperkalemia. History Of Present Illness: Ms. Mason is seen here in the ICU. History gathered from the chart. The patient has been intubated. The patient is a 73-year-old female with history of dementi a, seizure disorder, COPD, bipolar disorder, and hypothyroidism, who was sent in from the [facility] with altered mental status. The patient was drowsy and not arousable. The patient was seen here i n the emergency room. She was hypothermic and was found to have poor respiratory status, and the pat ient was intubated for airway protection and for respiratory support. The patient had hyperkalemia o n admission, as well as acute kidney injury. The patient has been treated partially in the emergency room for hyperkalemia. The patient has been in the ICU, has not required pressor support. In terms of renal function, the patient was according to the chart, recently hospitalized for urinary tract infection. She was found to have urinary tract infection with E coli and was discharged on ni trofurantoin as well as Bactrim. Urine and blood cultures at that time had shown both bacteremia and urinary tract infection secondary to E coli. The culture for the urinal was sensitive to Bactrim an d blood cultures were sensitive to Bactrim as well. The patient's creatinine upon that discharge is 1.55. It appears that she does have a long history of chronic kidney disease with a baseline creatin ine from 1.2 to 1.5. On presentation to the hospital this admission, creatinine was 1.93. Also on a dmission, patient had a potassium of 6.2. With management of this, has ranged from a peak of 6.2 whi ch has wavered and had a latha of 5.3. Past Medical History: As per HPI. Physical Examination: Vital Signs: Blood pressure is 140/82, pulse 72, temperature 97.5. Input and output not recorded he re in the computer; however, more 1900 mL of urine output per observe since transfer from the emergen cy room with another 600 in the Steele bag throughout the day today. General: Patient is intubated with FiO2 of 50%. Patient is sedated. Heart: Regular rate and rhythm. No murmurs, rubs, or gallops. Lungs: Crepitations heard in bilateral lung serna. Abdomen: Soft, nontender, nondistended. Extremities: With 1+ edema. Laboratory Data: Sodium 141, potassium 6.2, chloride 105, CO2 of 27, BUN 28, creatinine 1.9, glucose 139, calcium 9. Potassium was 6.2 on admission. BUN and creatinine were 30/1.93. Magnesium was 3. 3. Troponin was mildly elevated. BNP was 1648. TSH was 2.9. CBC; WBC 4.5, hemoglobin 10.2, hemato crit 31.8, platelet count 159. Blood gas; pH 7.33, pCO2 of 47.9, pO2 of 184, bicarb 24.5. UA; 5 to 10 wbc's and over 50 bacteria with reflex culture. There are no rbc's in the urine, negative for ket ones, nitrate, and leukocyte esterase. U-tox was negative. Acetaminophen less than 2. Microbiology Data: Initial blood cultures, no growth 24 hours. Urine culture, final results pending . Diagnostic Imaging: Renal ultrasound on 08/19, no hydronephrosis or suspicious mass. Increased lauryn l cortical echogenicity was noted. The CT scan of the head with no acute findings. Chest x-ray show ing mild CHF versus pneumonia. Current Medications: Reviewed. Impression: 1.Acute kidney injury on chronic kidney disease, likely from acute illness with underlying possible urinary tract infection. Etiology of renal failure, likely acute tubular necrosis with acute illness . 2.Hyperkalemia, likely from recent Bactrim use and worsening renal function with unknown dietary int viji outside of hospital. 3.Altered mental status. 4.Acute respiratory failure. 5.Elevated troponin. Plan: The patient's nursing and chart was reviewed. The patient was on SHAWN inhibitor as well as spi ronolactone. This likely led to hyperkalemia with worsening renal failure with recent Bactrim use. The patient will be medically managed for hyperkalemia. The patient did have significant tachycardia and hypertension, so the patient will be given Xopenex nebulizers, D50, and insulin to assist with p otassium movement. The patient has received Kayexalate twice earlier today 30 g x1. She has not had a bowel movement, so will repeat Kayexalate 1 dose now. We will also repeat beta-agonist therapy, D 50, insulin. Patient was also received calcium gluconate and will continue patient with ICU monitori ng. If there is any arrhythmias, the patient can receive further doses of calcium gluconate for card iac stability. The patient's renal function will need to be closely monitored. We will monitor stri ct input and output and avoid hypotension in the patient to avoid further worsening ATN. I would ahsan id any NSAIDs and any contrast. Please assure any medications are renally dosed to creatinine cleara nce of less than 10. Currently medication doses appear to be appropriate. There is not a need for acute renal replacement therapy at this time. We will continue to medically manage the patient's hyperkalemia with management hope to observe a downward trend in patient's potas sium balance. If nutrition is undertaken, these must be low-potassium renal feeds. In terms of the patient's respiratory failure, would follow up all cultures. Would consider adding a viral panel to the patient to rule out any viral disease as a cause. The patient may need MRI for f urther evaluation of mentation to ensure that there has not been any acute neurologic insult. Continue monitoring strict input and output. We will need to monitor serial electrolytes every 4 to 6 hours to ensure that electrolyte balance is maintained. Dr. Gutierres, thank you kindly for the consultation. Contact me anytime with any questions or concerns . /MIGUEL ÁNGEL Voice ID: [id number] Report ID: [id number]
[2019-08-20] MEDS ORDERED: TRAMADOL HCL 50 MG TAB PO PRN (14:49)
[2019-08-20] MEDS ORDERED: POLYETHYL GLY 3350 17 GM/DOSE PO PRN (14:49)
[2019-08-20] MEDS: HYDROCODONE/APAP 7.5/325 MG TAB PO PRN ×2 (15:03→23:11)
--- NOTE | 2019-08-20 15:07 | PN ---
Mrs. Mason seems to be awakening some. Her potassium came into the almost normal range yesterday, but now is back up. Kayexalate is still being given. She will not be tolerant of any more spironolactone because what we see today. Her troponins are mildly elevated, not something that makes me think this is an acute coronary syndrome. We will readdress the issue of whether we should do a cardiac cath if we can get to the point where she is speaking with us and extubated obviously, and if she has chest pain. Other than that, I think it is best we avoid doing heart catheterization. SADA/MIGUEL ÁNGEL Voice ID: [id number] Report ID: [id number] MTDD
[2019-08-20] MEDS: DIVALPROEX DR 500MG TAB PO SCH (21:09)
[2019-08-20] MEDS: DONEPEZIL HCL 5 MG TAB PO SCH (21:10)
[2019-08-20] MEDS: GABAPENTIN 400 MG CAP PO SCH (21:10)
[2019-08-20] MEDS: MEMANTINE HCL 10 MG TABLET PO SCH (21:10)
--- NOTE | 2019-08-21 00:07 | PN ---
Date of Progress Note: 08/20/2019 Subjective: Patient is seen at the bedside. Patient remains intubated. FiO2 has been reduced at 30 %. She is currently on SIMV setting. She has had urine output over 1 L overnight in response to Las ix challenge. Patient remains sedated. Objective: Vital Signs: Blood pressure is 142/79, pulse 66, afebrile. Urinary output measured at 1 .2 L. General: Intubated, no acute distress. Heart: Regular rate and rhythm. No murmurs, rubs, or gallops. Lungs: Grossly clear to auscultation bilaterally. Abdomen: Soft, nontender, nondistended. Extremities: No significant edema. Laboratory Data: BUN and creatinine 30 and 2.01. Potassium was 5.7 at 4:23 and repeat at 8:25 was 5 .1. TSH 1.510. Magnesium is 3. CBC, hemoglobin 11.2, hematocrit 35.1. UA had shown WBCs and bacte arti. However, microbiology data shows mixed win of the urine. Current Medications: Reviewed. Furosemide 60 mg IV t.i.d. was noted. Remainder medications reviewe d. Impression: 1.Acute kidney injury on chronic kidney disease. 2.Urinary tract infection. 3.Electrolyte abnormalities. 4.Acute respiratory failure. 5.Altered mental status. Plan: Renal function has shown some worsening likely in the setting of ATN. The patient has been co ntinued on Lasix and dose will need to be reduced. Once the patient is on minimal vent settings and pulmonary edema is no longer an acute factor posing any difficulty in weaning. Avoid all NSAIDs. Av oid all contrast. Monitor strict input and output. Continue monitoring serial chemistries. Renal d ose all antibiotics to creatinine clearance less than 10. I will continue to follow. SE/MODL Voice ID: [id number] Report ID: [id number]
[2019-08-21] MEDS ORDERED: FENTANYL CITR 100 MCG/2 ML IV ONE (02:25)
[2019-08-21 05:04] LABS: Absolute Lymphocytes (CBC) 2.1 K/uL (0.7-4.9); Basophils % 0.6 % (0-1.3); Hematocrit 30.5 % (36.0-45.0); Lymphocytes % 19.7 % (15.3-44.8); MPV 9.2 fL (7.6-11.3); RBC Red Blood Cell Count 3.13 M/uL (3.86-4.86)
[2019-08-21 05:21] LABS: Magnesium 3.1 mg/dL (1.8-2.4); Potassium 4.3 mmol/L (3.5-5.1)
[2019-08-21] MEDS: METOPROLOL TAR 25 MG TAB PO SCH ×2 (06:00→17:14)
[2019-08-21] MEDS: LEVOTHYROXINE SOD 0.025 MG TAB PO SCH (06:04)
[2019-08-21] MEDS ORDERED: LORazepam 2 MG/ML VIAL IV PRN (07:00)
--- NOTE | 2019-08-21 08:11 | RAD REPORT ---
EXAM DESCRIPTION: [facility] Single View08/21/2019 5:32 am CLINICAL HISTORY: Shortness of breath COMPARISON: August 19 FINDINGS: Endotracheal tube has been removed. Lungs appear clear of acute infiltrate. Heart is mildly enlarged
[2019-08-21] MEDS: MEMANTINE HCL 10 MG TABLET PO SCH ×2 (08:42→20:49)
[2019-08-21] MEDS: DULOXETINE 30 MG CAP PO SCH (08:42)
[2019-08-21] MEDS: FOLIC ACID 1 MG TABLET PO SCH (08:42)
[2019-08-21] MEDS: DOCUSATE NA 100 MG CAP PO SCH (08:42)
[2019-08-21] MEDS: FUROSEMIDE 100 MG/10 ML VIAL IV SCH (08:42)
[2019-08-21] MEDS: GABAPENTIN 400 MG CAP PO SCH ×3 (08:42→20:49)
[2019-08-21] MEDS: HEPARIN 5000 UNIT/ML 1 ML VIAL SQ SCH ×2 (08:42→20:49)
[2019-08-21] MEDS: DONEPEZIL HCL 5 MG TAB PO SCH ×2 (08:42→20:49)
[2019-08-21] MEDS: DIVALPROEX DR 500MG TAB PO SCH ×2 (08:43→20:49)
[2019-08-21] MEDS: HYDROCODONE/APAP 7.5/325 MG TAB PO PRN ×2 (08:51→20:44)
[2019-08-21] MEDS ORDERED: HOME MED 1 EA UNK (Docusate Sodium [Docusate Sodium] 100 MG) PO SCH (09:00)
--- NOTE | 2019-08-21 09:50 | P.PN ---
Subjective Date of Service: 08/21/19 Primary Care Provider: [facility] physician Chief Complaint: Altered mental status patient on a ventilator Subjective: Improving, Doing well Physical Examination - Vital Signs Temperature: 96.8 F Blood Pressure: 152/67 Pulse: 50 Respirations: 18 Pulse Ox (%): 98 - Physical Exam General: Alert, Cooperative, Other (Increase anxiety) HEENT: Atraumatic Neck: Supple Respiratory: Clear to auscultation bilaterally, Normal air movement Cardiovascular: Normal pulses, Regular rate/rhythm Gastrointestinal: Normal bowel sounds, Soft and benign, Non-distended Neurological: Normal speech, Normal strength at 5/5 x4 extr, Normal tone, Abnormal affect (Increase anxiety noted) - Studies Microbiology Data (last 24 hrs): 08/19/19 07:05 Clean Catch Urine [place] Count - Final >100,000 CFU/ML. 08/19/19 07:05 Clean Catch Urine - Final MIXED WIN. 08/19/19 07:03 Blood - Blood Anaerobic Blood Culture - Final 08/19/19 06:54 Blood - Blood Anaerobic Blood Culture - Final Medications List Reviewed: Yes Assessment & Plan Discharge Plan: Other (Skilled placement) Plan to discharge in: 24 Hours Physician Review Additional Text: Impression: Acute encephalopathy likely multifactorial hypothermia, acute renal failure, acute respiratory failure verses medication Acute on chronic renal failure stage 2 with hyperkalemia Acute respiratory failure with acute on chronic diastolic CHF exacerbation with history of COPD with elevated troponin Hypertension Bipolar disorder with schizoaffective disorder Severe dementia History of seizure disorder Anemia likely of chronic disease History of atrial fibrillation not on chronic anti coagulation therapy Plan: Acute encephalopathy likely multifactorial suspect hypothermia, acute renal failure, acute respiratory failure verses medication: Patient was extubated yesterday. Patient has done well. Urine culture negative only shows mixed win. IV antibiotic therapy has been discontinued. Patient has received diuresis with improvement. Chest x-ray reviewed. Will decrease IV Lasix. Await further recommendations from nephrology. MRI order to evaluate for her encephalopathy. Patient with underlying psychiatric disorder. Etiology of encephalopathy still on known but may be related to her acute respiratory failure verses medications. Patient takes multiple medications. This was reviewed in detail yesterday. Adjustments have been made. Will discuss further with Neurology and Psychiatry for further recommendation. I will transition patient to the floor. I will have physical therapy assess ambulation. Will connect with older adult social work specialist to help arrange for skilled placement at discharge. Will discuss with family. I will turn the service over to the hospitalist team tomorrow. Over go the plan of care with him. Acute on chronic renal failure stage 2 with hyperkalemia: Case discussed with Nephrology yesterday. Potassium improved. Will decrease Lasix. Await further recommendations from nephrology. Acute respiratory failure with acute on chronic diastolic CHF exacerbation with history of COPD with elevated troponin: Patient extubated yesterday. Will decrease IV Lasix. Continue fluid restriction. Chest x-ray shows improvement. Echocardiogram pending at this time. Hypertension: Medications have been adjusted to oral medication. Will monitor and adjust appropriately. Bipolar disorder with schizoaffective disorder: Patient takes multiple medications. Some medications have been held. Urine drug screen negative for benzodiazepine upon admission. Apparently patient was given benzodiazepine prior to admission in the [facility]. Nurses will discuss with nursing staff at snf. Will consult Psychiatry for further evaluation and recommendation on current medication/treatment. Severe dementia: Patient takes multiple medications. Neurology and Psychiatry to evaluate. MRI pending. History of seizure disorder: Neurology consulted. Continue with Depakote. Depakote level low. MRI brain and EEG to be obtained. Anemia likely of chronic disease: Will monitor lab closely. Maintain hemoglobin above 7.0. History of atrial fibrillation not on chronic anti coagulation therapy: Patient remains in sinus rhythm. Will monitor closely. Time Spent Managing Pts Care (In Minutes): 55
--- NOTE | 2019-08-21 10:51 | RAD REPORT ---
EXAM DESCRIPTION: MRI - Brain Wo Cont - 08/21/2019 7:57 am CLINICAL HISTORY: Slurred speech COMPARISON: August 19, [address] TECHNIQUE: Axial, sagittal, and coronal magnetic images of the brain were obtained. Contrast was not requested FINDINGS: Mild to moderate signal within periventricular, deep subcortical white matter probably isc hemic changes secondary to small vessel Diffusion-weighted/ADC mapping does not reveal evidence of acute infarction. The ventricles are normal caliber. An extra-axial fluid collection is not present Fluid within the sinuses/mastoids is not noted IMPRESSION: No acute abnormality is displayed
--- NOTE | 2019-08-21 11:09 | P.PN ---
Date of Service: 08/21/19 Vital Signs Temp Pulse Resp BP Pulse Ox 96.8 F 50 18 152/67 H 98 08/21/19 09:49 08/21/19 09:49 08/21/19 09:49 08/21/19 09:49 08/21/19 09:49 Medications Acetaminophen (Tylenol -Extra Strength) 500 mg PO Q4HP PRN PRN Reason: TEMP > 101' F Stop: 09/18/19 11:28 Last Admin: 08/20/19 17:32 Dose: 500 mg Acetaminophen (Tylenol Suppository) 650 mg WI Q6HP PRN PRN Reason: TEMP > 101' F Stop: 09/18/19 11:28 Hydrocodone Bitart/Acetaminophen ([place] 7.5/325 Mg) 1 tab PO Q6H PRN PRN Reason: Pain scale 5-7 (Moderate) Stop: 09/19/19 14:50 Last Admin: 08/21/19 08:51 Dose: 1 tab Albuterol Sulfate (Proventil 0.083% Neb Soln) 2.5 mg NEB [id number] PRN PRN Reason: SHORTNESS OF BREATH Stop: 09/18/19 11:28 Dextrose (Dextrose 50% Syringe/Vial) 12.5 gm IV PRN PRN; Protocol PRN Reason: HYPOGLYCEMIA Stop: 09/18/19 21:15 Divalproex Sodium (Depakote) 500 mg PO BID [facility] Stop: 09/19/19 21:01 Last Admin: 08/21/19 08:43 Dose: 500 mg Docusate Sodium (Colace Cap) 100 mg PO DAILY [facility] Stop: 09/20/19 09:01 Last Admin: 08/21/19 08:42 Dose: 100 mg Donepezil HCl (Aricept) 10 mg PO BID [facility] Stop: 09/19/19 21:01 Last Admin: 08/21/19 08:42 Dose: 10 mg Duloxetine HCl (Cymbalta Delayed Release Pellets) 60 mg PO DAILY [facility] Stop: 09/20/19 09:01 Last Admin: 08/21/19 08:42 Dose: 60 mg Folic Acid (Folic Acid) 1 mg PO DAILY [facility] Stop: 09/20/19 09:01 Last Admin: 08/21/19 08:42 Dose: 1 mg Furosemide (Lasix) 40 mg IV BID [facility] Stop: 09/20/19 21:01 Gabapentin (Neurontin) 800 mg PO TID [facility] Stop: 09/19/19 21:01 Last Admin: 08/21/19 08:42 Dose: 800 mg Glucagon (Glucagen) 1 mg IM 1X PRN; Protocol PRN Reason: HYPOGLYCEMIA Stop: 09/18/19 21:15 Heparin Sodium (Porcine) (Heparin 5,000 Units/Ml) 5,000 unit SQ Q12HR [facility] Stop: 09/18/19 21:01 Last Admin: 08/21/19 08:42 Dose: 5,000 unit Hydralazine HCl (Apresoline) 10 mg IV Q6HP PRN PRN Reason: FOR SBP>160 OR DBP>100 MMHG Stop: 09/18/19 13:12 Ipratropium [place] (Atrovent Neb) 0.5 mg NEB [id number] PRN PRN Reason: SHORTNESS OF BREATH Stop: 09/18/19 11:28 Last Admin: 08/19/19 19:45 Dose: 0.5 mg Levothyroxine Sodium (Synthroid) 0.025 mg PO DAILYAC [facility] Stop: 09/20/19 06:31 Last Admin: 08/21/19 06:04 Dose: 0.025 mg Lorazepam (Ativan) 0.5 mg IV TID PRN PRN Reason: AGITATION Stop: 09/20/19 09:01 Memantine (Namenda) 10 mg PO BID [facility] Stop: 09/19/19 21:01 Last Admin: 08/21/19 08:42 Dose: 10 mg Metoprolol Tartrate (Lopressor) 25 mg PO BID 6AM 6PM [facility] Stop: 09/18/19 18:01 Last Admin: 08/21/19 06:00 Dose: Not Given Ondansetron HCl (Zofran) 4 mg IV Q6HP PRN PRN Reason: NAUSEA / VOMITING Stop: 09/18/19 11:28 Polyethylene Glycol (Glycolax) 17 gm PO DAILY PRN PRN Reason: CONSTIPATION Stop: 09/19/19 14:50 Last Admin: 08/20/19 15:03 Dose: 17 gm Sodium Chloride (Normal Saline Flush) 10 ml IV BID [facility] Stop: 09/18/19 21:01 Last Admin: 08/21/19 08:43 Dose: 10 ml Tramadol HCl (Ultram) 50 mg PO TID PRN PRN Reason: Pain scale 2-4 (Mild) Stop: 09/19/19 14:50 Last Admin: 08/21/19 00:19 Dose: 50 mg Microbiology Results 08/19/19 07:05 Clean Catch Urine [place] Count - Final >100,000 CFU/ML. 08/19/19 07:05 Clean Catch Urine - Final MIXED SERGEY. 08/19/19 07:03 Blood - Blood Aerobic Blood Culture - Preliminary No growth in 24 hours. 08/19/19 07:03 Blood - Blood Anaerobic Blood Culture - Final 08/19/19 06:54 Blood - Blood Aerobic Blood Culture - Preliminary No growth in 24 hours. 08/19/19 06:54 Blood - Blood Anaerobic Blood Culture - Final Assessment/ Plan: Nephrology CPS stable without CP or SOB. No acute events overnight. BL low back pain. Working with PT. Vitals, medications, blood work and imaging reviewed in the chart. NAD. MMM. Neck supple. CTA. RRR. Soft Abd. No C/C/E. No rash. AAO. Normal Speech. Steele with light urine. A/ AMBAR Hyperkalemia Hypocalcemia CKD III with Proteinuria HTN with CKD. Anemia in chronic illness P/ Continue current POC and Medications. Change Lasix to PO. Encourage nutrition. Low sodium. AM labs. Daily weight. No NSAIDs. PT as tolerated. LEFT VENTRICULAR WALL MOTION: NORMAL DOPPLER/COLOR FLOW: MILD AORTIC, MITRAL AND TRICUSPID REGURGITATION. NORMAL RIGHT VENTRICULAR SYSTOLIC PRESSURE. COMMENTS: NORMAL 2D ECHOCARDIOGRAM. MILD AORTIC, MITRAL AND TRICUSPID REGURGITATION. EXAM DESCRIPTION: [facility] Single View08/21/2019 5:32 am CLINICAL HISTORY: Shortness of breath COMPARISON: August 19 FINDINGS: Endotracheal tube has been removed. Lungs appear clear of acute infiltrate. Heart is mildly enlarged. EXAM DESCRIPTION: US - Renal Ultrasound-Complete - 08/19/2019 9:24 pm CLINICAL HISTORY: acute renal failure COMPARISON: [facility] Protocol dated 08/09/2019 FINDINGS: The right kidney measures 9.3 x 3.9 by 5.2 cm. The left kidney measures 10.0 x 4.9 x 4.6 cm. Cortical thickness is within normal limits. There is increased cortical echogenicity which could be medical renal disease, body habitus artifact or combination. No hydronephrosis or suspicious renal mass. Urinary bladder assessment was limited due to decompressed state adjacent bowel. Overall exam is limited. Patient was on a ventilator with little ability to be repositioned or removed for better acoustic window. IMPRESSION: No hydronephrosis or suspicious renal mass. Increased cortical echogenicity could be medical renal disease, body habitus artifact or a combination.
--- NOTE | 2019-08-21 11:30 | ECHO ---
HEIGHT: 5 ft 6 in WEIGHT: 233 lb 8 oz DATE OF STUDY: 08/21/[address]: Holland Gutierres DO 2-DIMENSIONAL: YES M.MODE: YES DOPPLER: YES COLOR FLOW: YES TDS: NO PORTABLE: NO DEFINITY: NO BUBBLE STUDY: NO DIAGNOSIS: ACUTE RESPIRATORY AND RENAL FAILURE, CONGESTIVE HEART FAILURE CARDIAC HISTORY: CATHERIZATION: NO SURGERY: NO PROSTHETIC VALVE: NO PACEMAKER: NO MEASUREMENTS (cm) DIASTOLIC (NORMALS) SYSTOLIC (NORMALS) IVSd 1.0 (0.6-1.2) LA Diam 3.7 (1.9-4.0) LVEF 75% LVIDd 4.5 (3.5-5.7) LVIDs 2.6 (2.0-3.5) %FS 43% LVPWd 1.1 (0.6-1.2) Ao Diam 3.0 (2.0-3.7) 2 DIMENSIONAL ASSESSMENT: RIGHT ATRIUM: NORMAL LEFT ATRIUM: NORMAL RIGHT VENTRICLE: NORMAL LEFT VENTRICLE: NORMAL TRICUSPID VALVE: NORMAL MITRAL VALVE: NORMAL PULMONIC VALVE: NORMAL AORTIC VALVE: NORMAL PERICARDIAL EFFUSION: NONE AORTIC ROOT: NORMAL LEFT VENTRICULAR WALL MOTION: NORMAL DOPPLER/COLOR FLOW: MILD AORTIC, MITRAL AND TRICUSPID REGURGITATION. NORMAL RIGHT VENTRICULAR SYSTOLIC PRESSURE. COMMENTS: NORMAL 2D ECHOCARDIOGRAM. MILD AORTIC, MITRAL AND TRICUSPID REGURGITATION. TECHNOLOGIST: Talya SHANKAR
[2019-08-21 12:48] LABS: Urine Appearance CLEAR; Urine Bilirubin NEGATIVE (NEG); Urine Blood NEGATIVE (NEG); Urine Color YELLOW; Urine Glucose NEGATIVE (NEG); Urine Protein NEGATIVE (NEG); Urine Urobilinogen 0.2 mg/dL (0.2-1.0)
[2019-08-21 13:13] LABS: UR MICROALBUMIN 4.2 mg/dL (< 1.9)
[2019-08-21 13:17] LABS: Urine Bacteria <20 /HPF (<20); Urine Culture Reflex Order REFLEXED; Urine RBC <5 /HPF (NONE SEEN)
[2019-08-21 16:21] VITALS: TEMP 97.2
[2019-08-21] MEDS ORDERED: FUROSEMIDE 40 MG/4 ML VIAL IV SCH (21:00)
[2019-08-21 21:23] VITALS: O2SAT 96
[2019-08-21] MEDS ORDERED: MELATONIN 5 MG TABLET PO SCH (23:45)
[2019-08-22 05:01] LABS: Absolute Lymphocytes (CBC) 2.8 K/uL (0.7-4.9); Basophils % 0.7 % (0-1.3); Hematocrit 30.1 % (36.0-45.0); Lymphocytes % 28.5 % (15.3-44.8); MPV 9.3 fL (7.6-11.3); RBC Red Blood Cell Count 3.07 M/uL (3.86-4.86)
[2019-08-22 05:07] LABS: Magnesium 2.7 mg/dL (1.8-2.4); Phosphorus 3.7 mg/dL (2.5-4.9); Potassium 4.4 mmol/L (3.5-5.1); Uric Acid 6.9 mg/dL (2.6-6.0)
[2019-08-22] MEDS: METOPROLOL TAR 25 MG TAB PO SCH (05:49)
[2019-08-22] MEDS: LEVOTHYROXINE SOD 0.025 MG TAB PO SCH (05:49)
--- NOTE | 2019-08-22 07:02 | RAD REPORT ---
EXAM DESCRIPTION: RAD - Chest Single View - 08/22/2019 6:46 am CLINICAL HISTORY: ETT placement Chest pain. COMPARISON: Chest Single View dated 08/21/2019; Chest Single View dated 08/20/2019; Chest Single View dated 08/19/2019; Chest Single View dated 08/19/2019 FINDINGS: Portable technique limits examination quality. The lungs are grossly clear. The heart is mildly enlarged in size. No displaced fractures. IMPRESSION: No acute intrathoracic process suspected.
[2019-08-22] MEDS ORDERED: FUROSEMIDE 40 MG TABLET PO SCH (08:30)
[2019-08-22] MEDS ORDERED: DULERA 200/5 (MOMETASONE/FORMOTEROL) INHALER IH SCH (09:00)
[2019-08-22] MEDS ORDERED: VITAMIN D 5,000 UNIT CAP PO SCH (09:00)
[2019-08-22] MEDS: DOCUSATE NA 100 MG CAP PO SCH (09:00)
[2019-08-22] MEDS: GABAPENTIN 400 MG CAP PO SCH (09:02)
[2019-08-22] MEDS: DONEPEZIL HCL 5 MG TAB PO SCH (09:02)
[2019-08-22] MEDS: DULOXETINE 30 MG CAP PO SCH (09:02)
[2019-08-22] MEDS: DIVALPROEX DR 500MG TAB PO SCH (09:03)
[2019-08-22] MEDS: FOLIC ACID 1 MG TABLET PO SCH (09:03)
[2019-08-22] MEDS: HYDROCODONE/APAP 7.5/325 MG TAB PO PRN (09:03)
[2019-08-22] MEDS: MEMANTINE HCL 10 MG TABLET PO SCH (09:03)
[2019-08-22] MEDS: HEPARIN 5000 UNIT/ML 1 ML VIAL SQ SCH (09:03)
[2019-08-22 09:41] VITALS: BP 146/67
--- NOTE | 2019-08-22 11:08 | P.DS ---
Admission Date: 08/19/19 Discharge Date: 08/22/19 Primary Care Provider: snf physician Disposition: TRANSFER TO SNF - REHAB Discharge Condition: FAIR Reason for Admission: Altered mental status patient on a ventilator Brief History of Present Illness: From H and P 73-year-old female with history of dementia, seizure disorder, COPD, bipolar disorder, hypothyroidism. Patient with recent bacteremia and UTI with culture showing E coli. Patient was sent back to the longterm on Bactrim and Macrobid. Most of the information came from the ER physician and . reports patient was doing well. He visited her yesterday. Patient was acting appropriately. Her mentation was at her baseline yesterday. She does have underlying severe dementia. Patient presented to the emergency room with altered mental state. Patient had increased somnolence. Vital signs were stable other than blood pressure slightly elevated. She was hyperthermic with a temperature of 95. Patient required oxygen. Workup included CT head showed no evidence of stroke. Chest x -ray showed possible volume overload. Troponin 0.09. BUN of 30, creatinine 1.93 with a GFR of 20. Glucose 84. Sodium 139, potassium 6.2. Chloride 107, bicarb 27. PH is 7.33 with a pCO2 of 47. Procalcitonin unremarkable. Lactic acid unremarkable. Patient was given calcium gluconate in the emergency room along with blood pressure medication. due to her increased somnolence and poor respirations patient will be intubated. Patient will be transferred to ICU for further evaluation. Hospital Course: Patient is a 73-year-old female with multiple chronic medical conditions comes in with decreased mental status and respirations needing to be intubated. This was thought to be due to medication side effect. Patient is on multiple sedating medications at the nursing facility. Patient also had elevated troponin. Cardiology was consulted. Echocardiogram did not show significant changes from previous ejection fraction was normal. ACS was ruled out. No further cardiac intervention recommended by cardiology at this time. Patient was also seen by pulmonology for ventilation management. She was able to be extubated. Patient did well and did not have any further hypoxic episodes since. Dulera was added. MRI of the brain was negative. CT scan also did not show any acute hemorrhage. Neurology was consulted. Patient was continued on her Depakote. Patient was seen by nephrology due to acute kidney injury. Her kidney function normalized. Her home medication spironolactone will be discontinued due to hyperkalemia. Psychiatry was also consulted due to patient' s depression anxiety. Adjustments were made to her medication doses. Cymbalta was in increased to 90 mg and Abilify was added. Patient has multiple sedating medications including Zanaflex trazodone Remeron will be discontinued. Avoid benzodiazepines. Patient is in referred back to nursing facility and was discharged in a stable condition. Acute encephalopathy likely multifactorial hypothermia, acute renal failure, acute respiratory failure verses medication Acute on chronic renal failure stage 2 with hyperkalemia Acute respiratory failure with acute on chronic diastolic CHF exacerbation with history of COPD with elevated troponin Hypertension Bipolar disorder with schizoaffective disorder Severe dementia History of seizure disorder Anemia likely of chronic disease History of atrial fibrillation not on chronic anti coagulation therapy Vital Signs/Physical Exam: Temp Pulse Resp BP Pulse Ox 97.2 F 54 18 146/67 H 97 08/22/19 08:00 08/22/19 08:00 08/22/19 08:00 08/22/19 08:00 08/22/19 08:00 General: Alert, In no apparent distress, Oriented x3, Other (Elderly female) HEENT: Atraumatic, PERRLA, EOMI Neck: Supple, JVD not distended Respiratory: Clear to auscultation bilaterally, Normal air movement Cardiovascular: No edema, Normal pulses, Regular rate/rhythm, Normal S1 S2 Gastrointestinal: Normal bowel sounds, Soft and benign, Non-distended, Tenderness (Minimal) Musculoskeletal: No tenderness Integumentary: No rashes Neurological: Normal speech, Normal tone, Cranial nerves 3-12 intact, Normal affect Laboratory Data at Discharge: WBC 9.7 K/uL (4.3-10.9) 08/22/19 04:44 Hgb 9.7 g/dL (12.0-15.0) L 08/22/19 04:44 Hct 30.1 % (36.0-45.0) L 08/22/19 04:44 Plt Count 194 K/uL (152-406) 08/22/19 04:44 PT 11.0 SECONDS (9.5-12.5) 08/19/19 06:54 INR 0.93 08/19/19 06:54 APTT 25.7 SECONDS (24.3-36.9) 08/19/19 06:54 Sodium 141 mmol/L (136-145) 08/22/19 04:44 Potassium 4.4 mmol/L (3.5-5.1) 08/22/19 04:44 BUN 38 mg/dL (7-18) H 08/22/19 04:44 Creatinine 2.04 mg/dL (0.55-1.3) H 08/22/19 04:44 Glucose 120 mg/dL (74-106) H 08/22/19 04:44 Uric Acid 6.9 mg/dL (2.6-6.0) H 08/22/19 04:44 Phosphorus 3.7 mg/dL (2.5-4.9) 08/22/19 04:44 Magnesium 2.7 mg/dL (1.8-2.4) H 08/22/19 04:44 Troponin I 0.11 ng/mL (0.0-0.045) H 08/20/19 02:05 Home Medications: Acetaminophen [Tylenol] 650 mg PO Q6HR PRN MDD 3gm 08/19/19 Aspirin [Aspirin EC 325 MG] 325 mg PO Q6HR PRN 08/19/19 Diclofenac Sodium [Voltaren] 100 gm TP DAILY PRN 08/19/19 Divalproex Sodium [Depakote] 500 mg PO BID 08/19/19 Docusate Sodium 100 mg PO BID PRN 08/19/19 Donepezil HCl [Aricept] 10 mg PO BID 08/19/19 Enema, Fleet Adult [Fleet Enema Adult*] 1 bottle ME DAILY PRN 08/19/19 Flaxseed Oil 1,000 mg PO DAILY 08/19/19 Fluticasone/Vilanterol [Breo Ellipta 200-25 Mcg INH] 1 inh IH DAILY 08/19/19 Folic Acid 0.4 mg PO DAILY 08/19/19 Gabapentin [Neurontin] 800 mg PO TID 08/19/19 Ipratropium/Albuterol Sulfate [Iprat-Albut 0.5-3(2.5) mg/3 ml] 3 ml NEB Q4H PRN 08/19/19 Levothyroxine Sodium 25 mcg PO DAILY 08/19/19 Mag Hydrox/Aluminum Hyd/Simeth [Sunita-Lanta Liquid] 30 ml PO Q4H PRN 08/19/19 Mag Hydroxide 8% [Milk Of Magnesia*] 30 ml PO DAILY PRN 08/19/19 Magnesium Citrate [Citroma*] 1 bottle PO DAILY PRN 08/19/19 Melatonin 5 mg PO BEDTIME PRN PRN 08/19/19 Memantine HCl [Namenda] 10 mg PO BID 08/19/19 Nitrofuran Macro [Macrobid*] 1 cap PO BID 08/19/19 Nystatin 1,000,000 unit TOP BID 08/19/19 Oxycodone HCl 5 mg PO BID 08/19/19 Phenol/Glycerin [Chloraseptic Max [place]] 2 spray PO Q4H PRN 08/19/19 Sodium Chloride [Saline Nasal [place]] 2 spray IN BID PRN 08/19/19 Sumatriptan [Imitrex*] 100 mg PO DAILY PRN 08/19/19 guaiFENesin [Sunita-Tussin] 5 ml PO Q6HR PRN 08/19/19 ARIPiprazole [Abilify] 5 mg PO DAILY #30 tab 08/22/19 Duloxetine HCl [Jenniferma Brannonle] 90 mg PO DAILY #60 cap.spr 08/22/19 Furosemide [Lasix*] 40 mg PO DAILY #60 tab 08/22/19 Metoprolol Tartrate [Lopressor*] 25 mg PO BID 6AM 6PM #60 tab 08/22/19 Mometasone/Formoterol [Dulera 200 Mcg/5 Mcg Inhaler] 2 puff IH BID #1 inhaler New Medications: ARIPiprazole [Abilify] 5 mg PO DAILY #30 tab Duloxetine HCl [Drizalma Sprinkle] 90 mg PO DAILY #60 cap.spr Furosemide [Lasix*] 40 mg PO DAILY #60 tab Metoprolol Tartrate [Lopressor*] 25 mg PO BID 6AM 6PM #60 tab Mometasone/Formoterol [Dulera 200 Mcg/5 Mcg Inhaler] 2 puff IH BID #1 inhaler Patient Discharge Instructions: Follow up with primary care physician in 2-3 days. Follow up with psychiatrist Dr. Alvares in 2 weeks. Follow up with neurologist Dr. Zuniga in 2 weeks. Follow up with evening or night nurse supervisor Dr. Solomon in 1-2 weeks. Follow up with mail handler sorter Dr. Fernando in 2 weeks. Return to ER for worsening condition Diet: AHA Activity: Ad jimi Followup: Pranay Stewart MD [ACTIVE - CAN ADMIT] - Mauricio Zuniga MD [ASSOCIATE-ACTIVE - CAN ADMIT] - Abraham Solomon MD [ACTIVE - CAN ADMIT] - Jovany Alvares [ACTIVE - CAN ADMIT] - Time spent managing pt's care (in minutes): 37
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
--- NOTE | 2019-08-22 13:41 | PN ---
Date of Progress Note: 08/22/2019 Ms. Mason was admitted with toxic encephalopathy and coma. She has a history of bipolar disorder w ith schizophrenia, DVT, and COPD. She had hyperkalemia. Her Aldactone was stopped. Echocardiogram which was done yesterday was normal without any wall motion abnormalities or effusion. She is on Lop ressor, Lasix, and hydralazine for her blood pressure. Her blood pressure is 145/65. She is in sinu s rhythm. Renal is following. Her last potassium is 4.3. Her creatinine however have worsened to 2 .7 and I would consider stopping her Lasix as well. I will leave that up to Nephrology. No further cardiac recommendation at this point. NB/MODL Voice ID: [id number] Report ID: [id number]
--- NOTE | 2019-08-23 09:10 | CON ---
Date of Consultation: 08/21/2019 Chief Complaint: Psychiatric consultation advice on medication for patient with significant psychiatric history of bipolar disorder. History Of Present Illness: Ms. Mason is a 73-year-old female with a psychiatric history significant for dementia and bipolar disorder. Patient does have a comorbid medical pathology significant for seizure disorder, COPD, and hypothyroidism, recently admitted on account of altered mental status. On interview, patient reports history of multiple psychiatric hospitalizations and numerous suicidal attempts. She does admit to be depressed and lack desire to live, but no intent or plane to commit suicide. She reports difficulty sleeping , frequent crying spells, racing thoughts and lack energy and motivation. She is , has 2 children, a son and a daughter. She does admit to anxiety symptoms, also admits to poor memory and concentration. She states she is all a lone and has no one to be by her side. She denies psychotic symptoms and no history of OCD or panic attacks. She is currently on Cymbalta 60 mg p.o. and Mirtazapine 30 mg daily for depressive symptoms and she is on numerous anticonvulsants for seizure disorder. She states she is compliant with the medication and no significant side effects. Objective: Vital Signs: Blood pressure 146/67, pulse rate is 72, respiratory rate is 18, temperature is 98. Mental Status: Patient is an obese built female, dressed in hospital gown, lying on bed, not in any acute distress. Alert and oriented to person and place, but not time and date. She is superficially cooperative with interview. No stereotypic movement. Concentration and memory are poor. Mild psychomotor retardation. Her mood seems to be depressed. Affect is not congruent. Thought process linear to circumstantial. Thought content, no delusional thinking. Patient verbalized she rather be than to be alive, but not intent to hurt herself. No auditory hallucinations. Fund of knowledge is average. Language skills fair. Diagnoses: 1. Bipolar disorder, most recent episode depressed, moderate. 2. Delirium. 3. Dementia. Recommendations: 1. Recommend increasing Cymbalta to 90 mg p.o. daily for depressive symptoms. 2. Start Abilify 5 mg p.o. daily for depressive symptoms and mood stabilization. 3. Discussed recommendations with management team. 4. Followup with Psychiatry on outpatient basis 2 weeks post discharge SAMANTHA/MIGUEL ÁNGEL Voice ID: [id number] Report ID: [id number] DULCE
--- NOTE | 2019-08-23 15:14 | EEG ---
CHART: [id number] TEST ID#: [id number] DATE OF STUDY: 08/21/2019 THE EEG WAS RECORDED PORTABLE IN THE PATIENTS ROOM ON A 17 CHANNEL MACHINE. ELECTRODES WERE APPLIED IN THE USUAL MANNER USING THE INTERNATIONAL 10-20 SYSTEM. THE WAKING BACKGROUND RHYTHM IN THIS RECORD CONSISTS OF FAIRLY WELL DEVELOPED AND FAIRLY WELL ORGANIZED WAVES OF 11 HZ., MAXIMAL IN THE POSTERIOR HEAD REGIONS WHICH ATTENUATE NORMALLY WITH EYE OPENING. LOW-VOLTAGE 18-22 HZ ACTIVITY EXPRESSED IN THE FRONTAL REGIONS. THERE ARE NO FOCAL OR LATERALIZING FEATURES. NO EPILEPTIFORM ACTIVITY APPEARS. SLEEP OCCURRED NATURALLY. IN ADDTION NORMAL SLEEP PATTERNS ARE PRESENT. HYPERVENTILATION WAS NOT PERFORMED. PHOTIC STIMULATION PRODUCED NO DRIVING BILATERALLY. IMPRESSION: NORMAL EEG FOR THE AGE OF THE PATIENT IN [place], DROWSINESS AND SLEEP.
== END 2019-08-22 12:02 | DRG 189 ==
LOC: ER 06:36 → ERHOLD 09:09 → 3RD-ICU 11:20 → 2ND 08-21 09:15
PROVIDERS: ADMIT Family Medicine; ATTEND Family Medicine
DX: J96.00 Acute respiratory failure, unspecified whether with hypoxia or hypercapnia (principal); I50.33 Acute on chronic diastolic (congestive) heart failure; N39.0 Urinary tract infection, site not specified; G93.40 Encephalopathy, unspecified; N17.9 Acute kidney failure, unspecified; I48.20 Chronic atrial fibrillation, unspecified; I13.0 Hypertensive heart and chronic kidney disease with heart failure and stage 1 through stage 4 chronic kidney disease, or unspecified chronic kidney disease; E03.9 Hypothyroidism, unspecified; B96.20 Unspecified Escherichia coli [E. coli] as the cause of diseases classified elsewhere; J44.9 Chronic obstructive pulmonary disease, unspecified; F03.90 Unspecified dementia, unspecified severity, without behavioral disturbance, psychotic disturbance, mood disturbance, and anxiety; N18.2 Chronic kidney disease, stage 2 (mild); F25.0 Schizoaffective disorder, bipolar type; D63.8 Anemia in other chronic diseases classified elsewhere; E87.5 Hyperkalemia; R68.0 Hypothermia, not associated with low environmental temperature; E83.51 Hypocalcemia
CPT/HCPCS: 31500; 36415; 51702; 70450; 70551; 71045; 74018; 76770; 80048; 80164; 80307; 80329; 81001; 81003; 81015; 82043; 82550; 82553; 82570; 82805; 82947; 83605; 83735; 83880; 84100; 84132; 84145; 84300; 84439; 84443; 84484; 84550; 85025; 85610; 85730; 87040; 87070; 87086; 87088; 87205; 93005; 93306; 94002; 94003; 94640; 95819; 97112; 97116; 97161; 97530; 99291; 99292; J0360; J0610; J0696; J1644; J1940; J2250; J2704; J2920; J3010; J3411; J7030; J7605; J7606

== ENCOUNTER 2019-08-23 23:45 | Emergency (ER) | payer OTHER, BC ==
--- OUTSIDE RECORDS SUMMARY | 2019-08-23 23:47 | XMS REPORT ---
:1945 [facility] [address] Harrell [address] [place] [id number] Care Team Providers Name Role Phone Unavailable Unavailable Unavailable Problems This patient has no known problems. Allergies, Adverse Reactions, Alerts This patient has no known allergies or adverse reactions. Medications This patient has no known medications.
--- OUTSIDE RECORDS SUMMARY | 2019-08-23 23:47 | XMS REPORT ---
[...] End Status Dosage System Date Date Carvedilol [facility] [id number] 6.25 MG Orally Active 1 tablet Twice a day Lisinopril [facility] 48121413201 2.5 MG Orally Active 1 tablet twice a day Carbamazepine [facility] 30920542117 200 MG Orally Active 1 tablet once a day Ondansetron HCl NDC 02801516041 4 MG Orally Active 1 tablet every 6 hrs Vitamin D [facility] 06213940067 1000 UNIT Active 1 tablet Orally Once a day Melatonin ND 68627922046 3 MG Orally Active 1 tablet Once a day at bedtime as needed with food Protonix [facility] 84117081575 40 MG Orally Active 1 tablet Once a day Imitrex ND 25169606901 50 MG Orally Apr 03, Active 1 tablet Once a day november 2018 as needed repeat dose 1 dose in 2 hours ( max 2 doses in 24 hours) Donepezil HCl [facility] 37335631952 10 MG Oral Active 1 tablet twice a day at bedtime Claritin [facility] 61699256045 10 MG Orally December 08, Active 1 tablet Once a day 2018 Duloxetine HCl [facility] 23038365501 60 MG Orally Active 1 capsule Once a day Benadryl Allergy [facility] 37750462564 25 MG Orally Active 1 tablet every 8 hrs as needed Simethicone [facility] 09492431509 80 MG Orally Active 1 tablet Four times a after day meals and at bedtime as needed Imodium A-D [facility] 19299083232 2 MG Orally Active 1 tablet Four times a as needed day Gabapentin [facility] 05299880419 800 MG Orally Active 1 tablet three times a day Oxybutynin [facility] 07563010401 5 MG Oral twice Active 1 tablet Chloride ER a day Ipratropium-Albu [facility] 66080266057 0.5-2.5 (3) Active 3 ml terol MG/3ML Inhalation every 6 hrs Zofran [facility] 82423270989 4 MG Orally Jun 17, Active 1 tablet every 12 hrs 2018 prn nausea Trazodone HCl [facility] 51629985471 50 MG Oral Active not defined Zantac [facility] 77622933955 150 MG Orally Active 1 tablet Once a day at bedtime Atorvastatin [facility] 14582998804 20 MG Orally Active 1 tablet Calcium Once a day Levothyroxine [facility] 92774287205 25 MCG Orally Apr 24, Active 1 tablet Sodium Once a day 2018 in the morning on an empty stomach Divalproex [facility] 27179212293 500 MG Orally Active 1 tablet Sodium Twice a day Levothyroxine [facility] 32153330250 200 MCG Orally Active 1 tablet Sodium Once a day on an empty stomach in the morning Flonase [facility] 40273063997 50 MCG/DOSE December 08, Active 1 spray Nasally Twice a 2019 in each day nostril Diclofenac [facility] 14779725529 75 MG Orally Active 1 tablet Sodium Twice a day with food or milk BuPROPion HCl ER [facility] 95596557805 300 MG Orally Active 1 tablet (XL) Once a day in the morning Memantine HCl [facility] 31463026326 10 MG Orally Active 1 tablet Twice a day Promethazine HCl [facility] 69685475991 25 MG/ML Inactive 1 ml as Injection every needed 6 hrs Folic Acid-Vit [facility] [id number] 0.8-10-0.115 MG Active 1 tablet B6-Vit B12 Orally Once a day Topiramate [facility] 22234726151 100 MG Active TAKE 1 TABLET BY MOUTH TWICE DAILY Oxybutynin [facility] 53586258438 5 MG Orally Apr 27October Active 1 [...] 20190616 7-18 mg/dL H ----Glucose Level 85 16151987 74-106 mg/dL ----Sodium Level 143 20190616 136-145 mmol/L ----Potassium 5.3 38187830 3.5-5.1 mmol/L H ----Chloride Level 114 20190616 98-107 mmol/L H ----Bicarbonate 26 20190616 21-32 mmol/L Summary Purpose eClinicalWorks Submission
--- OUTSIDE RECORDS SUMMARY | 2019-08-23 23:47 | XMS REPORT ---
[...] End Date Status Dosage System Date Protonix [facility] 32881229702 40 MG Orally Active 1 tablet Once a day Benadryl Allergy [facility] 65955674648 25 MG Orally Active 1 tablet every 8 hrs as needed Folic Acid-Vit [facility] [address] 0.8-10-0.115 MG Active 1 tablet B6-Vit B12 Orally Once a day Calcium ND 0 Oral Active 1 tab Diclofenac [facility] 60686901486 75 MG Orally Active 1 tablet Sodium Twice a day with food or milk Carbamazepine [facility] 25897100953 200 MG Orally Active 1 tablet once a day Ipratropium-Albu [facility] 67665112569 0.5-2.5 (3) Active 3 ml terol MG/3ML Inhalation every 6 hrs Simethicone [facility] 27026393042 80 MG Orally Active 1 tablet Four times a after day meals and at bedtime as needed Myrbetriq [facility] 62280980979 25 MG Orally Apr 27October Active 1 tablet Once a day 2018 Levothyroxine [facility] 72654705138 25 MCG Orally Apr 27, Active 1 tablet Sodium Once a day 2018 in the morning on an empty stomach Ondansetron HCl [facility] 14030670555 4 MG Orally Active 1 tablet every 6 hrs Gabapentin [facility] 63611316692 800 MG Orally Active 1 tablet three times a day Atorvastatin [facility] 58922023153 20 MG Orally Active 1 tablet Calcium Once a day Oxybutynin [facility] 74813140656 5 MG Oral twice Active 1 tablet Chloride ER a day Claritin [facility] 35510297358 10 MG Orally December 08, Active 1 tablet Once a day 2018 Promethazine HCl [facility] 56118130975 25 MG/ML Active 1 ml as Injection every needed 6 hrs Melatonin [facility] 51954131829 3 MG Orally Active 1 tablet Once a day at bedtime as needed with food Carvedilol [facility] 60298487994 6.25 MG Orally Active 1 tablet Twice a day Lisinopril [facility] 62648007603 2.5 MG Orally Active 1 tablet twice a day Donepezil HCl [facility] 50636244863 10 MG Oral Active 1 tablet twice a day at bedtime Vitamin D [facility] 63924791899 1000 UNIT Active 1 tablet Orally Once a day Duloxetine HCl [facility] 26218343387 60 MG Orally Active 1 capsule Once a day BuPROPion HCl ER [facility] 62212015471 300 MG Orally Active 1 tablet (XL) Once a day in the morning Flonase [facility] 44616494700 50 MCG/DOSE December 08, Active 1 spray in Nasally Twice a 2018 each day nostril Imodium A-D [facility] 39611170534 2 MG Orally Active 1 tablet Four times a as needed day Imitrex [facility] 90574989221 50 MG Orally Apr 03, Active 1 tablet Once a day november 2018 as needed repeat dose 1 dose in 2 hours ( max 2 doses in 24 hours) Levothyroxine [facility] 47886292692 200 MCG Orally Active 1 tablet Sodium Once a day on an empty stomach in the morning Topiramate [facility] 29608262254 100 MG Orally Active 1 tablet twice a day Divalproex [facility] 62164556642 500 MG Orally Active 1 tablet Sodium Twice a day Zantac [facility] 39839255580 150 MG Orally Active 1 tablet Once a day at bedtime Memantine HCl [facility] 27728181803 10 MG Orally Active 1 tablet Twice a day Trazodone HCl [facility] 87807072217 50 MG Oral Active not defined Results No Known Results Summary Purpose eClinicalWorks Submission
--- OUTSIDE RECORDS SUMMARY | 2019-08-23 23:47 | XMS REPORT ---
[...] Status Dosage System Date Date Comp Air [facility] [id number] - every 6 hours Jun 16, Active as directed Compressor as needed 2019 Nebulizer Results No Known Results Summary Purpose eClinicalWorks Submission
--- OUTSIDE RECORDS SUMMARY | 2019-08-23 23:47 | XMS REPORT ---
[...] Date Status Dosage System Date Topiramate ND 39147888583 100 MG Orally Active 1 tablet twice a day Levothyroxine ND 68693872949 200 MCG Orally Active 1 tablet Sodium Once a day on an empty stomach in the morning Imodium A-D ND 73267768267 2 MG Orally Active 1 tablet Four times a as needed day Melatonin ND 98307912355 3 MG Orally Active 1 tablet Once a day at bedtime as needed with food Oxybutynin ND 91411139020 5 MG Oral twice Active 1 tablet Chloride ER a day Lisinopril ND 29805296206 2.5 MG Orally Active 1 tablet twice a day Ipratropium-Albu ND 89440171445 0.5-2.5 (3) Active 3 ml terol MG/3ML Inhalation every 6 hrs Levothyroxine ND 27059610712 25 MCG Orally Oct 24, Active 1 tablet Sodium Once a day 2018 in the morning on an empty stomach Simethicone [facility] 01116391942 80 MG Orally Active 1 tablet Four times a after day meals and at bedtime as needed Memantine HCl [facility] 22299459835 10 MG Orally Active 1 tablet Twice a day Donepezil HCl [facility] 54137937632 10 MG Oral Active 1 tablet twice a day at bedtime Carbamazepine [facility] 06338610415 200 MG Orally Active 1 tablet once a day Claritin [facility] 90858550101 10 MG Orally December 08, Active 1 tablet Once a day 2018 BuPROPion HCl ER [facility] 41659912998 300 MG Orally Active 1 tablet (XL) Once a day in the morning Calcium ND 0 Oral Active 1 tab Cipro [facility] 18072946890 500 MG Orally May 12, May 19, Active 1 tablet every 12 hrs 2018 [address] [facility] 09358554893 5 MG Orally Apr 27October Active 1 tablet Chloride Twice a day 2018 Benadryl Allergy [facility] 35178153778 25 MG Orally Active 1 tablet every 8 hrs as needed Imitrex [facility] 76411336169 50 MG Orally Apr 03, Active 1 tablet Once a day november 2018 as needed repeat dose 1 dose in 2 hours ( max 2 doses in 24 hours) Carvedilol [facility] 13391262621 6.25 MG Orally Active 1 tablet Twice a day Promethazine HCl [facility] 60536470613 25 MG/ML Active 1 ml as Injection every needed 6 hrs Zantac [facility] 37162408240 150 MG Orally Active 1 tablet Once a day at bedtime Duloxetine HCl [facility] 30997994641 60 MG Orally Active 1 capsule Once a day Folic Acid-Vit [facility] [address]856 0.8-10-0.115 MG Active 1 tablet B6-Vit B12 Orally Once a day Divalproex [facility] 23803807253 500 MG Orally Active 1 tablet Sodium Twice a day Vitamin D [facility] 63565131504 1000 UNIT Active 1 tablet Orally Once a day Diclofenac [facility] 83962440707 75 MG Orally Active 1 tablet Sodium Twice a day with food or milk Flonase [facility] 75450191632 50 MCG/DOSE December 08, Active 1 spray in Nasally Twice a 2018 each day nostril Protonix [facility] 74210900768 40 MG Orally Active 1 tablet Once a day Atorvastatin [facility] 16433811313 20 MG Orally Active 1 tablet Calcium Once a day Trazodone HCl [facility] 18783973271 50 MG Oral Active not defined Gabapentin [facility] 58550187882 800 MG Orally Active 1 tablet three times a day Ondansetron HCl [facility] 07224885008 4 MG Orally Active 1 tablet every 6 hrs Results Name Result Date Reference Range Unit Abnormality Flag Urine Dip Stick ----Appearance yellow and cloudy 20190512 ----SP. Gr 1.015 20190512 ----pH 6.0 20190512 ----Ketone NEG 20190512 ----Glucose NEG 20190512 ----Blood 2+ 20190512 ----Protein 1+ 20190512 ----Nitrite POS 20190512 ----Leukocytes 3+ 20190512 Summary Purpose eClinicalWorks Submission
--- OUTSIDE RECORDS SUMMARY | 2019-08-23 23:48 | XMS REPORT ---
[...] Date Status Dosage System Date Melatonin ND 20506140990 3 MG Orally Active 1 tablet Once a day at bedtime as needed with food Simethicone ND 19866282274 80 MG Orally Active 1 tablet Four times a after day meals and at bedtime as needed Calcium NDC 0 Oral Active 1 tab Vitamin D ND 47043131118 1000 UNIT Active 1 tablet Orally Once a day Donepezil HCl ND 35493799059 10 MG Oral Active 1 tablet twice a day at bedtime Oxybutynin ND 44279224073 5 MG Orally Apr 27October Active 1 tablet Chloride Twice a day 2018 Claritin ND 81187082502 10 MG Orally December 08, Active 1 tablet Once a day 2018 Protonix [facility] 35271357967 40 MG Orally Active 1 tablet Once a day Duloxetine HCl [facility] 69316671065 60 MG Orally Active 1 capsule Once a day Zantac [facility] 88720061139 150 MG Orally Active 1 tablet Once a day at bedtime Gabapentin [facility] 62266569581 800 MG Orally Active 1 tablet three times a day Oxybutynin [facility] 70131465469 5 MG Oral twice Active 1 tablet Chloride ER a day Topiramate [facility] 01433925393 100 MG Active TAKE 1 TABLET BY MOUTH TWICE DAILY BuPROPion HCl ER [facility] 37240388184 300 MG Orally Active 1 tablet (XL) Once a day in the morning Imitrex [facility] 01748880456 50 MG Orally Apr 03, Active 1 tablet Once a day november 2018 as needed repeat dose 1 dose in 2 hours ( max 2 doses in 24 hours) Benadryl Allergy [facility] 40225269981 25 MG Orally Active 1 tablet every 8 hrs as needed Imodium A-D [facility] 58194424003 2 MG Orally Active 1 tablet Four times a as needed day Atorvastatin [facility] 75070429126 20 MG Orally Active 1 tablet Calcium Once a day Levothyroxine [facility] 99226323728 200 MCG Orally Active 1 tablet Sodium Once a day on an empty stomach in the morning Ipratropium-Albu [facility] 36741009953 0.5-2.5 (3) Active 3 ml terol MG/3ML Inhalation every 6 hrs Folic Acid-Vit [facility] 58149-[address]35 0.8-10-0.115 MG Active 1 tablet B6-Vit B12 Orally Once a day Flonase [facility] 14042983450 50 MCG/DOSE December 08, Active 1 spray in Nasally Twice a 2018 each day nostril Zofran [facility] 76349966452 4 MG Orally Jun 17, Active 1 tablet every 12 hrs 2019 prn nausea Lisinopril [facility] 92257033443 2.5 MG Orally Active 1 tablet twice a day Diclofenac ND 91245841244 75 MG Orally Active 1 tablet Sodium Twice a day with food or milk Levothyroxine [facility] 10742817427 25 MCG Orally Apr 27, Active 1 tablet Sodium Once a day 2018 in the morning on an empty stomach Memantine HCl [facility] 12418838561 10 MG Orally Active 1 tablet Twice a day Comp Air [facility] 99984816906 - every Jun 16, Active as Compressor hours as needed 2019 directed Nebulizer Carvedilol [facility] 40823786719 6.25 MG Orally Active 1 tablet Twice a day Carbamazepine [facility] 38638169643 200 MG Orally Active 1 tablet once a day Trazodone HCl [facility] 86129297213 50 MG Oral Active not defined Divalproex [facility] 08916937729 500 MG Orally Active 1 tablet Sodium Twice a day Ondansetron HCl [facility] 75998947083 4 MG Orally Active 1 tablet every 6 hrs Results Name Result Date Reference Range Unit Abnormality Flag Sjogren's Ab, Anti-SSA/-SSB ----Sjogren's <0.2 [id number] 0.0-0.9 AI Anti-SS-A ----Sjogren's <0.2 [id number] 0.0-0.9 AI Anti-SS-B EDWIN w/Reflex ----EDWIN Direct Negative [id number] Negative Comp. Metabolic Panel (14) (CMP) ----Sodium 142 20190627 134-144 mmol/L ----BUN/Creatinine 17 63621639 12-28 Ratio ----Chloride 106 92868596 96-106 mmol/L ----Potassium 5.5 00431381 3.5-5.2 mmol/L H ----Calcium 9.2 61072350 8.7-10.3 mg/dL ----Protein, Total 5.7 06972520 6.0-8.5 g/dL L ----Carbon Dioxide, 23 20190627 20-29 mmol/L Total ----A/G Ratio 1.9 95774501 1.2-2.2 ----eGFR If NonAfricn 38 13879977 >59 mL/min/1.73 L Am ----Bilirubin, Total <0.2 35011114 0.0-1.2 mg/dL ----eGFR If Africn Am 44 [id number] >59 mL/min/1.73 L ----Albumin 3.7 95234164 3.5-4.8 g/dL ----BUN 23 20190627 8-27 mg/dL ----Globulin, Total 2.0 20190627 1.5-4.5 g/dL ----Creatinine 1.38 20190627 0.57-1.00 mg/dL H ----ALT (SGPT) 13 20190627 0-32 IU/L ----Glucose 84 20190627 65-99 mg/dL ----Alkaline 122 20190627 39-117 IU/L H Phosphatase ----AST (SGOT) 13 20190627 0-40 IU/L Summary Purpose eClinicalWorks Submission
[2019-08-24 00:38] LABS: Absolute Lymphocytes (CBC) 2.7 K/uL (0.7-4.9); Basophils % 0.7 % (0-1.3); Hematocrit 30.3 % (36.0-45.0); Lymphocytes % 35.6 % (15.3-44.8); MPV 9.6 fL (7.6-11.3)
[2019-08-24] MEDS ORDERED: LORazepam 2 MG/ML VIAL ONE ×3 (00:40→08:50)
[2019-08-24 00:41] LABS: Protime INR 0.93
[2019-08-24 00:56] LABS: Barbiturates NEGATIVE (NEGATIVE); Benzodiazepines POSITIVE (NEGATIVE); Cocaine NEGATIVE (NEGATIVE); METHAMPHETAM NEGATIVE (NEGATIVE); Methadone NEGATIVE (NEGATIVE); Opiates NEGATIVE (NEGATIVE); Phencyclidine NEGATIVE (NEGATIVE); THC Cannibis NEGATIVE (NEGATIVE)
[2019-08-24] MEDS ORDERED: ZIPRASIDONE MESYLA 20 MG/VIAL IM ONE ×2 (01:01→10:01)
[2019-08-24] MEDS ORDERED: WATER FOR INJ,STERILE 10 ML ONE (01:02)
[2019-08-24 01:09] LABS: ALT/SGPT 11 U/L (12-78); AST/SGOT 11 U/L (15-37); Albumin 2.9 g/dL (3.4-5.0); Alkaline Phosphatase 123 U/L (45-117); BUN Blood Urea Nitrogen 40 mg/dL (7-18); Bicarbonate 28 mmol/L (21-32); Bilirubin Direct 0.1 mg/dL (0-0.2); Bilirubin Total 0.3 mg/dL (0.2-1.0); Glucose Level 92 mg/dL (74-106); Potassium 4.9 mmol/L (3.5-5.1); Protein, Total 6.2 g/dL (6.4-8.2); Sodium Level 141 mmol/L (136-145)
[2019-08-24 03:15] LABS: Urine Blood NEGATIVE (NEG); Urine Glucose NEGATIVE (NEG); Urine Protein NEGATIVE (NEG); Urine Specific Gravity 1.015 (1.005-1.030)
--- NOTE | 2019-08-24 07:19 | EKG ---
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 MEASUREMENT RESULTS: Intervals: Rate: 86 UT: 190 QRSD: 102 QT: 584 QTc: 698 [place]: P: 44 UT: 190 QRS: -55 T: 77 INTERPRETIVE STATEMENTS: Normal sinus rhythm Left anterior fascicular block Anterolateral infarct, age undetermined Prolonged QT Abnormal ECG Compared to ECG 08/19/2019 06:55:55 Left anterior fascicular block now present Myocardial infarct finding now present Prolonged QT interval now present Sinus arrhythmia no longer present First degree AV block no longer present Left-axis deviation no longer present Electronically Signed On 08-24-19 07:19:06 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
--- NOTE | 2019-08-24 13:58 | ER ---
Nurse's Notes [facility] Name: Macrina Mason Age: 73 yrs Sex: Female : 1945 Arrival Date: 08/23/2019 Time: 23:51 Bed 14 Private MD: Diagnosis: Suicidal ideations;Major depressive disorder, recurrent Presentation: 08/23 23:50 Presenting complaint: EMS states: patient stated she wants to , punching her head, rr5 holding her breath. bruise noted on the forehead area and face. 23:50 Transition of care: patient was received from another setting of care (long-term care 5 facility), [facility]. Onset of symptoms was August 24, 2019. Risk Assessment: Do you want to hurt yourself or someone else? Patient reports desire/thoughts of hurting themselves or someone else. Provider notified. Initial Sepsis Screen: Does the patient meet any 2 criteria? No. Patient's initial sepsis screen is negative. Does the patient have a suspected source of infection? No. Patient's initial sepsis screen is negative. Note brought by EMS escorted by MONTSE and public service officer with Emergency alf order form. Care prior to arrival: None. 23:50 Method Of Arrival: EMS: [facility] rr5 23:50 Acuity: [facility] 2 rr5 Historical: - Allergies: 23:50 No Known Allergies; rr5 - Home Meds: 23:50 Amitiza 24 mcg Oral cap 1 cap 2 times per day [Active]; amitriptyline 25 mg Oral tab 1 rr5 tab 2 times per day [Active]; aspirin 325 mg Oral tab 1 tab once daily [Active]; atorvastatin 20 mg Oral tab 1 tab once daily [Active]; Bisacodyl Oral as needed [Active]; Breo Ellipta 200-25 mcg/dose inhalation dsdv 1 puff once daily [Active]; bupropion HCl 300 mg Oral Tb24 1 tab once daily [Active]; carbamazepine 200 mg Oral CM12 1 cap 2 times per day [Active]; carvedilol 6.25 mg Oral tab 1 tab 2 times per day [Active]; diclofenac sodium 75 mg Oral TbEC 1 tab 2 times per day [Active]; divalproex 500 mg Oral Tb24 1 tab once daily [Active]; duloxetine 60 mg Oral cpDR 1 cap once daily [Active]; donepezil 10 mg Oral tab 1 tab twice a day [Active]; fexofenadine 180 mg Oral tab 1 tab once daily [Active]; flaxseed oil 1,000 mg Oral cap daily [Active]; folic acid 800 mcg Oral tab 1 tab once daily [Active]; gabapentin 800 mg Oral tab 3 times per day [Active]; lisinopril 2.5 mg Oral tab 1 tab twice a day [Active]; lorazepam 0.5 mg Oral tab 1 tab 2 times per day [Active]; oxybutynin chloride 5 mg Oral tr24 2 tabs once daily [Active]; levothyroxine 200 mcg tab 1 tab once daily [Active]; memantine 10 mg Oral tab 1 tab 2 times per day [Active]; mirtazapine 30 mg Oral tab 1 tab once daily [Active]; promethazine 25 mg Oral tab 1 tab every 6 hours [Active]; topiramate 100 mg Oral CSpX 1 cap once daily [Active]; trazodone 50 mg Oral tab nightly [Active]; - PMHx: 23:50 allergies; Back pain; Bipolar disorder; COPD; DVT; Schizophrenia; UTI; rr5 - Immunization history:: Adult Immunizations unknown. - Coronavirus screen:: The patient has NOT traveled to [place] in the past 14 days. Proceed with normal triage process as indicated. - Social history:: Smoking status: unknown. - Ebola Screening: : Unable to complete screening because. Screenin:50 Abuse screen: Denies threats or abuse. Denies injuries from another. Nutritional rr5 screening: No deficits noted. Tuberculosis screening: No symptoms or risk factors identified. Fall Risk IV access (20 points). Gait- Impaired (20 pts.). Mental Status- Overestimates/Forgets Limitations (15 pts.). Total Sandoval Fall Scale indicates High Risk Score (45 or more points). Fall prevention measures have been instituted. Side Rails Up X 2 Placed Close to Nursing Station Frequent Obs/Assessments Occuring As available patient and family educated on Fall Prevention Program and Strategies. Assessment: 23:50 General: Appears in no apparent distress. uncomfortable, Behavior is agitated, rr5 uncooperative, withdrawn, does want to open her eyes, not want to talk to anyone.. Reports I want to . brought by EMS escorted by MONTSE and public service officer with emergency alf order from on chart.. 23:50 Pain: Unable to use pain scale. Patient appears agitated, withdrawn. Neuro: Level of rr5 Consciousness is awake, alert, Oriented to person, place, time, situation. Cardiovascular: Capillary refill < 3 seconds Patient's skin is warm and dry. Respiratory: Airway is patent Respiratory effort is even, unlabored, Respiratory pattern is regular, symmetrical. GI: No signs and/or symptoms were reported involving the gastrointestinal system. : No signs and/or symptoms were reported regarding the genitourinary system. EENT: No signs and/or symptoms were reported regarding the EENT system. Derm: Bruising that is dark purple, on forehead, right eye, right cheek, right ear, left eye and abdomen. Musculoskeletal: Capillary refill < 3 seconds. 08/24 00:30 Reassessment: patient started to punched her self and shouting "I want to , let me rr5 " ED provider aware with order made and carried out. 2 point restraint applied. 01:45 Reassessment: Patient appears in no apparent distress at this time. patient's asleep rr5 discontinued restraint, vital signs taken and recorded. ED provider informed. 03:00 Reassessment: Patient appears in no apparent distress at this time. No changes from rr5 previously documented assessment. awaiting for mental facility acceptance. 04:30 Reassessment: Patient appears in no apparent distress at this time. No changes from previously documented assessment. Pt sleeping well no signs of distress noted. 05:30 Reassessment: Patient appears in no apparent distress at this time. No changes from previously documented assessment. Pt sleeping well no signs of distress noted. 07:00 Reassessment: RECD REPORT FROM RAFAL BHARDWAJ. 73YO WF SENT FROM [facility] FOR SI AND bp SELF-INJURIOUS BEHAVIOR. PT MEDICALLY CLEARED, DISPO PENDING. BHAVESH ON FILE. 07:04 Reassessment: Patient appears in no apparent distress at this time. No changes from previously documented assessment. Pt sleeping well no signs of distress noted. 07:30 Reassessment: PT ENGAGING IN SELF-INJURIOUS BEHAVIOR, HITTING HERSELF IN THE HEAD bp REPEATEDLY. PT NOT RESPONDING TO VERBAL REDIRECTION, REQUIRING PHYSICAL INTERVENTION TO PREVENT SELF-HARM. 08:00 Reassessment: PT REPEATEDLY COMBATIVE WITH STAFF AND MAKING SELF-INJURIOUS GESTURES, bp USING PROFANITY AND THREATS AT STAFF. PT REQUIRING FREQUENT PHYSICAL REDIRECTION TO CEASE THESE BEHAVIORS. PT NOT RESPONDING TO VERBAL REDIRECTION AND ATTEMPTING TO STRIKE STAFF. RESTRAINTS PLACED FOR PT AND STAFF SAFETY. RESTRAINT RELEASE CRITERIA EXPLAINED, BUT PT REFUSED TO COMPLY. 09:00 Reassessment: PT D/C OWN RESTRAINTS AND ATTEMPTING TO INJURE SELF AND STAFF. RESTRAINTS bp REAPPLIED. 09:14 Reassessment: REPORT TO MIGUEL ANGEL BHARDWAJ AT [facility]. AWAITING FURTHER bp DOCUMENTATION FOR DOC TO DOC. 09:27 Reassessment: PT DECLINED BY [facility] / PT COMBATIVENESS AND NECESSITY OF bp RESTRAINTS. 09:44 Reassessment: NURSE REPORT TO MONIQUE BHARDWAJ AT [facility] FOR STEPHEN-PSYCH, DOC TO DOC bp PENDING. 10:30 Reassessment: PT SLEEPING, RESTRAINTS RELEASED. bp 11:58 Reassessment: FURTHER DOCUMENTATION FAXED TO [facility]. ADMIN RESPONSE PENDING. bp 13:43 Reassessment: Report called to Gina BHARDWAJ at [facility]. hb 14:44 Reassessment: [facility] FOR TRANSPORT. bp Psych: 08/23 23:50 Subjective: Patient's mood is sad, irritable, hopeless, Delusions are Hallucinations rr5 are denied Having thoughts of suicide. Plan for suicide is punching her face and holding her breath. verbalized I want to . 23:50 Objective: Patient is uncooperative, Speech is normal, Affect is inappropriate. rr5 Interventions: Removed personal items and placed in bag. Patient placed in hospital gown. Searched person for dangerous items. Urine collected and sent for urine drug test. Belonging list filled out. Restraints: Patient placed in soft restraints as ordered by physician. Patient's physical safety, cardiac and respiratory status will continue to be monitored while in restraints. 08/24 00:00 Interventions: Patient reassessed during use of restraints. Patient is physically safe. rr5 Patient's cardiac status is stable. Patient's respirations are even and unlabored. Patient has good circulation in all extremities as indicated by capillary refill < 3 seconds. Patient's ROM assessed and is intact. Patient hygiene and elimination needs met. Patient assessed for signs of distress. Patient remains reasonably comfortable at this time. Assisted patient in de-escalation of behavior by removing stimuli causing behavior where possible. Restraints continue to be necessary for patient and staff safety. Suicide Risk Assessment: Sad Person Scale: Sex of patient: Female: Score 0 points. Age of patient: Score 1 point if patient is over 65. Depression: Score 1 point if signs of depression are present. Previous Attempt: Substance Abuse: Score 0 point if patient does not abuse alcohol or drugs. Rational Thinking: Score 1 point if patient is lacking rational thinking. Social Support: Score 1 point if social support is lacking and/or unavailable. Organized Plan: Score 0 if patient did not have an organized plan in place. Relationship: Score 1 point if patient is , , , or for a single male Chronic Sickness: Score 1 point if patient has illness, chronic, debilitating, or severe. TOTAL POINTS: If total points are 5-6, proposed clinical action is to strongly consider hospitalization, depending upon confidence in the follow-up arrangement. Implement suicide precautions. 00:00 Safety Checks: Personal items have been removed. Door is open. No visitors are present rr5 at this time. sitter at bedside. unable to complete, patient is uncooperative. Commitment: Patient will be an involuntary commitment. Commitment papers completed. Vital Signs: 08/23 23:50 BP 141 / 100; Pulse 75; Resp 19; Temp 98.1; Pulse Ox 99% ; Weight 108.86 kg; rr5 08/24 00:30 BP 145 / 105; Pulse 79; Resp 17; Temp 98.1(A); Pulse Ox 99% ; rr5 00:45 BP 121 / 74; Pulse 82; Resp 17; Pulse Ox 100% ; rr5 01:00 BP 126 / 104; Pulse 61; Resp 17; Pulse Ox 98% on R/A; rr5 01:15 BP 126 / 104; Pulse 77; Resp 18; Pulse Ox 99% on R/A; rr5 01:15 BP 136 / 99; Pulse 80; Resp 20; Pulse Ox 100% ; rr5 01:30 BP 115 / 45; Pulse 75; Resp 17; Pulse Ox 96% on R/A; rr5 01:45 BP 98 / 45; Pulse 59; Resp 16; Pulse Ox 97% ; rr5 02:00 BP 95 / 59; Pulse 60; Resp 15; Temp 98; Pulse Ox 95% ; rr5 03:00 BP 95 / 45; Pulse 62; Resp 16; Pulse Ox 97% ; rr5 03:19 BP 118 / 51; Pulse 73; Resp 18; Pulse Ox 98% ; rr5 04:30 BP 122 / 59; Pulse 63; Resp 16; Pulse Ox 97% ; wh 05:55 BP 111 / 46 LA; Pulse 54 LA; Resp 20; Pulse Ox 98% on R/A; cs8 07:00 BP 122 / 51; Pulse 72; Resp 16; Pulse Ox 95% ; bp 08:16 BP 92 / 61; Pulse 68; Resp 18; Pulse Ox 98% on R/A; dh3 09:48 BP 145 / 49; Pulse 70; Resp 16; Pulse Ox 97% ; bp 10:54 BP 120 / 53; Pulse 69; Resp 17; Pulse Ox 96% ; bp 11:58 BP 102 / 49; Pulse 59; Resp 16; Pulse Ox 98% ; bp ED Course: 08/23 23:50 Arm band placed on right wrist. rr5 23:51 Patient arrived in ED. rr5 23:54 Josh Leiva MD is Attending Physician. tw4 08/24 00:00 Pulse ox on. NIBP on. Warm blanket given. Pillow given. Patient is placed in psych rr5 hold. Patient is placed in psych hold. Patient is placed in psych hold. 00:07 EKG done, by ED staff, reviewed by Josh Leiva MD. bb 00:10 Initial lab(s) drawn, by [facility], sent to lab. Inserted saline lock: 20 gauge in left bb forearm, using aseptic technique. Blood collected. 00:20 Straight cath inserted, using sterile technique, 16 Fr. Specimen obtained. Patient bb tolerated well. 00:46 Casey Berrios, RN is Primary Nurse. rr5 00:50 Triage completed. rr5 01:15 Patient has correct armband on for positive identification. Placed in gown. Bed in low rr5 position. Call light in reach. Side rails up X2. Valuables inventory done. Locked in safe. See valuables checklist. 01:17 Patient is placed in psych hold. rr5 01:30 Safety checks: Items removed: yes. Door open/sign placed on door: yes. Sitter present: cs8 Yes. 01:45 Safety checks: Items removed: yes. Door open/sign placed on door: yes. Safety checks: cs8 Sitter present: Yes. 02:00 Safety checks: Items removed: Door open/sign placed on door: yes. Sitter present: Yes. cs8 02:15 Safety checks: Items removed: yes. Door open/sign placed on door: yes. cs8 02:30 Safety checks: Items removed: yes. Door open/sign placed on door: yes. Sitter present: cs8 Yes. 02:45 Safety checks: Items removed: yes. Door open/sign placed on door: yes. Sitter present: cs8 Yes. 03:00 Safety checks: Items removed: yes. Door open/sign placed on door: yes. Sitter present: cs8 Yes. 03:15 Safety checks: Items removed: yes. Door open/sign placed on door: yes. Sitter present: cs8 Yes. 03:30 Safety checks: Items removed: yes. Door open/sign placed on door: yes. Sitter present: cs8 Yes. 03:45 Safety checks: Items removed: yes. Door open/sign placed on door: yes. Sitter present: cs8 Yes. 04:00 Safety checks: Items removed: yes. Door open/sign placed on door: yes. Sitter present: cs8 Yes. 04:15 Safety checks: Items removed: yes. Door open/sign placed on door: yes. Sitter present: cs8 Yes. 04:30 Safety checks: Items removed: yes. Safety checks: Door open/sign placed on door: yes. cs8 Sitter present: Yes. Placed in gown. Bed in low position. Side rails up X2. Pulse ox on. NIBP on. 04:30 Safety checks: Items removed: yes. Door open/sign placed on door: yes. Sitter present: cs8 Yes. Placed in gown. Bed in low position. Side rails up X2. Pulse ox on. NIBP on. 05:00 Safety checks: Items removed: yes. Door open/sign placed on door: yes. Sitter present: cs8 Yes. Side rails up X2. Pulse ox on. NIBP on. 05:15 Safety checks: Items removed: yes. Door open/sign placed on door: yes. Sitter present: cs8 Yes. Side rails up X2. Pulse ox on. NIBP on. 05:30 Safety checks: Items removed: yes. Door open/sign placed on door: yes. Sitter present: cs8 Yes. Side rails up X2. Pulse ox on. NIBP on. 05:45 Safety checks: Items removed: yes. Door open/sign placed on door: yes. Sitter present: cs8 Yes. Side rails up X2. Pulse ox on. NIBP on. 06:00 Safety checks: Items removed: yes. Door open/sign placed on door: yes. Sitter present: cs8 Yes. Side rails up X2. 06:15 Safety checks: Items removed: yes. Door open/sign placed on door: yes. Sitter present: cs8 Yes. Side rails up X2. Pulse ox on. NIBP on. 06:30 spoke with Renae from [facility]. Requested EKG and UA results to be faxed to [phone]. faxed as requested. 06:30 Safety checks: Items removed: yes. Door open/sign placed on door: yes. Sitter present: cs8 Yes. Side rails up X2. Pulse ox on. NIBP on. 06:45 Safety checks: Items removed: yes. Door open/sign placed on door: yes. Sitter present: cs8 Yes. Side rails up X2. Pulse ox on. NIBP on. 06:59 Primary Nurse role handed off by Casey Berrios, [place] bp 06:59 Henrique Angel, [place] is Primary Nurse. bp 07:00 [facility] called to check if patient still needed placement/ due to shift change eb someone will be calling back to do nurse to nurse. 09:10 Nurse from [facility] calling to do nurse to nurse. dh4 09:20 Sekou from [facility] calling for nurse to nurse. dh4 09:28 Pt denied at [facility] per sekou / pt must be off restraints for 24 hours. dh4 09:37 [facility] for nurse to nurse consulation. dh4 11:01 Attending Physician role handed off by Josh Leiva MD kdr 11:01 Kevyn Carrillo MD is Attending Physician. kdr 11:34 called the [facility]' office spoke with Maria Del Rosario who will page the [facility] deputy for a warrant. 12:40 called [facility] to page out Judge Weston for the transfer warrant to be signed. eb 12:51 Transfer Warrant sandy faxed to Judge Weston. [facility] 13:15 Administrative approval from [facility] from Aline Bowen. [facility] 13:59 \\[id number] initial contact made with Gia Rodriguez from the [facility]/ \\[id number] Dr. Wilde accepted the patient without conference / \\[id number] administrative approval given by Nhi Mcgill/ the facility requests the transfer warrant be faxed to [phone] prior to Nurse to Nurse being done. 14:47 No provider procedures requiring assistance completed. IV discontinued, intact, bp bleeding controlled, No redness/swelling at site. Pressure dressing applied. Restraints: 00:30 Violent/Self Destructive Restraint: Order: obtained. Initiated August 24, 2019 at rr5 00:30 Staff present during the Initiation of Restraint: Priya RN, sofia RN, casey RN, . Observed actions/behavior: violent, actively suicidal, harming self/others, unable to follow instructions, Less restrictive alternatives attempted: 1:1 patient care, placed near Nurse station, repositioned, trained sitter in room, Monitoring: Mental status: agitated/restless, verbally abusive, Cognition: poor safety awareness, Impulsive, poor attention/concentration, Circulation: Within defined parameters (based on Cardiovascular assessment). Skin integrity: Range of Motion: Performed. Restraint status: Soft wrist restraint (Right) Started. Soft wrist restraint (Left) Started. 00:30 Violent/Self Destructive Restraint: Family Notification/Education: Unable to provide rr5 education: uncooperative, withdrawn. 00:45 Violent/Self Destructive Restraint: Observed actions/behavior: violent, actively rr5 suicidal, harming self/others, unable to follow instructions, Less restrictive alternatives attempted: placed near Nurse station, reoriented to location, repositioned, trained sitter in room, Alternative interventions: Effective. Clinical justification for use: Violent/self destructing behavior impacts therapeutic environment. Poses a serious danger to physical safety of self \\T\\ others. Monitoring: Mental status: agitated/restless, Cognition: poor safety awareness, Impulsive, Circulation: Within defined parameters (based on Cardiovascular assessment). Skin integrity: Within defined parameters (based on Integumentary assessment) Restraint status: Soft wrist restraint (Right) Continued. Soft wrist restraint (Left) Continued. Violent/Self Destructive Restraint: Observed actions/behavior: violent, actively suicidal, harming self/others, Monitoring: Mental status: agitated/restless, verbally abusive, Cognition: poor safety awareness, Impulsive, poor attention/concentration, Circulation: Within defined parameters (based on Cardiovascular assessment). Skin integrity: Within defined parameters (based on Integumentary assessment) Restraint status: Soft wrist restraint (Right) Continued. Soft wrist restraint (Left) Continued. 01:00 Violent/Self Destructive Restraint: Observed actions/behavior: violent, harming rr5 self/others, Monitoring: Mental status: agitated/restless, Cognition: poor safety awareness, Impulsive, poor attention/concentration, Circulation: Within defined parameters (based on Cardiovascular assessment). Skin integrity: Within defined parameters (based on Integumentary assessment) Restraint status: Soft wrist restraint (Right) Continued. Soft wrist restraint (Left) Continued. 01:15 Violent/Self Destructive Restraint: Observed actions/behavior: violent, harming rr5 self/others, Less restrictive alternatives attempted: 1:1 patient care, placed near Nurse station, reoriented to location, repositioned, trained sitter in room, Alternative interventions: Ineffective. Clinical justification for use: Violent/self destructing behavior impacts therapeutic environment. Poses a serious danger to physical safety of self \\T\\ others. Monitoring: Mental status: agitated/restless, verbally abusive, Cognition: poor safety awareness, Impulsive, poor attention/concentration, Circulation: Within defined parameters (based on Cardiovascular assessment). Skin integrity: Within defined parameters (based on Integumentary assessment) No injuries due to Restraints noted. 01:15 Violent/Self Destructive Restraint: Restraint status: Soft wrist restraint (Right) rr5 Continued. Soft wrist restraint (Left) Continued. 01:30 Violent/Self Destructive Restraint: Observed actions/behavior: harming self/others, rr5 unable to follow instructions, Less restrictive alternatives attempted: 1:1 patient care, placed near Nurse station, reoriented to location, repositioned, trained sitter in room, Alternative interventions: Ineffective. Clinical justification for use: Violent/self destructing behavior impacts therapeutic environment. Poses a serious danger to physical safety of self \\T\\ others. Monitoring: Mental status: agitated/restless, Cognition: poor safety awareness, Impulsive, Circulation: Within defined parameters (based on Cardiovascular assessment). Skin integrity: Within defined parameters (based on Integumentary assessment) No injuries due to Restraints noted. Range of Motion: declined. Restraint status: Soft wrist restraint (Right) Continued. Soft wrist restraint (Left) Continued. 01:45 Violent/Self Destructive Restraint: Less restrictive alternatives attempted: decreased rr5 environmental stimuli, 1:1 patient care, placed near Nurse station, medications evaluated, repositioned, trained sitter in room, Alternative interventions: Monitoring: Mental status: patient asleep, Cognition: Unable to assess. Circulation: Within defined parameters (based on Cardiovascular assessment). Skin integrity: Within defined parameters (based on Integumentary assessment) No injuries due to Restraints noted. Restraint status: Soft wrist restraint (Right) Discontinued. Soft wrist restraint (Left) Discontinued. Readiness for Discontinue: Release criteria met. No longer exhibiting violent or self destructive behavior. Alt interventions effective. 02:15 Violent/Self Destructive Restraint: Face to Face Evaluatn: Response of Patient to rr5 Restraint: patient asleep Medical \\T\\ Behavioral condition: asleep on bed comfortable, hemodynamically stable. Terminate restraint. MD Notified of Evaluation result: Josh Leiva MD. 08:00 Violent/Self Destructive Restraint: Initiated August 24, 2019 at 08:00 Staff present bp during the Initiation of Restraint: VU PACK, PRAHSANT BHARDWAJ. Family Notification/Education: Unable to provide education: PT REFUSED. Observed actions/behavior: violent, actively suicidal, harming self/others, repeated attempts to get up from bed/chair without assistance. Less restrictive alternatives attempted: decreased environmental stimuli, 1:1 patient care, placed near Nurse station, reoriented to location, medications evaluated, repositioned, trained sitter in room, Alternative interventions: Ineffective. Clinical justification for use: Violent/self destructing behavior impacts therapeutic environment. Poses a serious danger to physical safety of self \\T\\ others. Monitoring: Mental status: agitated/restless, verbally abusive, Cognition: poor judgement, Impulsive, Circulation: Within defined parameters (based on Cardiovascular assessment). Skin integrity: Within defined parameters (based on Integumentary assessment) No injuries due to Restraints noted. Range of Motion: declined. Restraint status: Soft wrist restraint (Right) Started. Soft wrist restraint (Left) Started. Readiness for Discontinue: Criteria not met. Patient still violent/self destructive and Alternative interventions still ineffective. Restraint continued. Face to Face Evaluatn: Immediate Situation: PT STRIKING SELF AND STAFF, ACTIVELY COMBATIVE AND SUICIDAL Response of Patient to Restraint: VERBALLY ABUSIVE AND THREATENING TO STAFF, ATTEMPTS TO D/C RESTRAINTS Medical \\T\\ Behavioral condition: MEDICALLY STABLE, ACTIVELY COMBATIVE Continue Restraint. MD Notified of Evaluation result: Kevyn Carrillo MD. 08:15 Violent/Self Destructive Restraint: Observed actions/behavior: violent, actively bp suicidal, harming self/others, repeated attempts to get up from bed/chair without assistance. unable to follow instructions, Less restrictive alternatives attempted: decreased environmental stimuli, 1:1 patient care, placed near Nurse station, reoriented to location, medications evaluated, repositioned, trained sitter in room, Alternative interventions: Ineffective. Clinical justification for use: Violent/self destructing behavior impacts therapeutic environment. Poses a serious danger to physical safety of self \\T\\ others. Monitoring: Mental status: agitated/restless, verbally abusive, Cognition: poor judgement, Impulsive, Circulation: Within defined parameters (based on Cardiovascular assessment). Skin integrity: Within defined parameters (based on Integumentary assessment) No injuries due to Restraints noted. Restraint status: Soft wrist restraint (Right) Continued. Soft wrist restraint (Left) Continued. Readiness for Discontinue: Criteria not met. Patient still violent/self destructive and Alternative interventions still ineffective. Restraint continued. 08:30 Violent/Self Destructive Restraint: Observed actions/behavior: violent, actively bp suicidal, harming self/others, repeated attempts to get up from bed/chair without assistance. Less restrictive alternatives attempted: decreased environmental stimuli, 1:1 patient care, placed near Nurse station, reoriented to location, medications evaluated, repositioned, trained sitter in room, Alternative interventions: Ineffective. Clinical justification for use: Violent/self destructing behavior impacts therapeutic environment. Poses a serious danger to physical safety of self \\T\\ others. Monitoring: Mental status: agitated/restless, verbally abusive, Cognition: poor judgement, Impulsive, Circulation: Within defined parameters (based on Cardiovascular assessment). Skin integrity: Within defined parameters (based on Integumentary assessment) No injuries due to Restraints noted. Restraint status: Soft wrist restraint (Right) Continued. Soft wrist restraint (Left) Continued. Readiness for Discontinue: Criteria not met. Patient still violent/self destructive and Alternative interventions still ineffective. Restraint continued. 08:45 Violent/Self Destructive Restraint: Observed actions/behavior: violent, actively bp suicidal, harming self/others, repeated attempts to get up from bed/chair without assistance. unable to follow instructions, Less restrictive alternatives attempted: decreased environmental stimuli, 1:1 patient care, placed near Nurse station, reoriented to location, medications evaluated, medicated for pain/anxiety, repositioned, trained sitter in room, Alternative interventions: Ineffective. Clinical justification for use: Violent/self destructing behavior impacts therapeutic environment. Poses a serious danger to physical safety of self \\T\\ others. Monitoring: Mental status: agitated/restless, verbally abusive, Cognition: poor judgement, Impulsive, Circulation: Within defined parameters (based on Cardiovascular assessment). Skin integrity: Within defined parameters (based on Integumentary assessment) No injuries due to Restraints noted. Restraint status: Soft wrist restraint (Right) Continued. Soft wrist restraint (Left) Continued. Readiness for Discontinue: Criteria not met. Patient still violent/self destructive and Alternative interventions still ineffective. Restraint continued. 09:00 Violent/Self Destructive Restraint: Observed actions/behavior: violent, actively bp suicidal, harming self/others, repeated attempts to get up from bed/chair without assistance. unable to follow instructions, Less restrictive alternatives attempted: decreased environmental stimuli, 1:1 patient care, placed near Nurse station, reoriented to location, medications evaluated, medicated for pain/anxiety, repositioned, trained sitter in room, Alternative interventions: Ineffective. Clinical justification for use: Violent/self destructing behavior impacts therapeutic environment. Poses a serious danger to physical safety of self \\T\\ others. Monitoring: Mental status: agitated/restless, verbally abusive, Cognition: poor judgement, poor safety awareness, Impulsive, Circulation: Within defined parameters (based on Cardiovascular assessment). Skin integrity: Within defined parameters (based on Integumentary assessment) No injuries due to Restraints noted. Restraint status: Soft wrist restraint (Right) Continued. Soft wrist restraint (Left) Continued. Readiness for Discontinue: Criteria not met. Patient still violent/self destructive and Alternative interventions still ineffective. Restraint continued. Violent/Self Destructive Restraint: Range of Motion: declined. Hydration/Food: patient declined. Elimination/Hygiene: Patient declined. 09:15 Violent/Self Destructive Restraint: Observed actions/behavior: violent, actively bp suicidal, harming self/others, repeated attempts to get up from bed/chair without assistance. unable to follow instructions, Less restrictive alternatives attempted: decreased environmental stimuli, 1:1 patient care, placed near Nurse station, reoriented to location, medications evaluated, medicated for pain/anxiety, repositioned, trained sitter in room, Alternative interventions: Ineffective. Clinical justification for use: Violent/self destructing behavior impacts therapeutic environment. Poses a serious danger to physical safety of self \\T\\ others. Monitoring: Mental status: agitated/restless, verbally abusive, Cognition: poor judgement, poor safety awareness, Impulsive, Circulation: Within defined parameters (based on Cardiovascular assessment). Skin integrity: Within defined parameters (based on Integumentary assessment) No injuries due to Restraints noted. Restraint status: Soft wrist restraint (Right) Continued. Soft wrist restraint (Left) Continued. Readiness for Discontinue: Criteria not met. Patient still violent/self destructive and Alternative interventions still ineffective. Restraint continued. 09:30 Violent/Self Destructive Restraint: Observed actions/behavior: violent, actively bp suicidal, harming self/others, repeated attempts to get up from bed/chair without assistance. unable to follow instructions, Less restrictive alternatives attempted: decreased environmental stimuli, 1:1 patient care, placed near Nurse station, reoriented to location, medications evaluated, repositioned, trained sitter in room, Alternative interventions: Ineffective. Clinical justification for use: Violent/self destructing behavior impacts therapeutic environment. Poses a serious danger to physical safety of self \\T\\ others. Monitoring: Mental status: agitated/restless, verbally abusive, Cognition: poor judgement, poor safety awareness, Impulsive, Circulation: Within defined parameters (based on Cardiovascular assessment). Skin integrity: Within defined parameters (based on Integumentary assessment) No injuries due to Restraints noted. Restraint status: Soft wrist restraint (Right) Continued. Soft wrist restraint (Left) Continued. Readiness for Discontinue: Criteria not met. Patient still violent/self destructive and Alternative interventions still ineffective. Restraint continued. 09:45 Violent/Self Destructive Restraint: Observed actions/behavior: violent, actively bp suicidal, harming self/others, repeated attempts to get up from bed/chair without assistance. unable to follow instructions, Less restrictive alternatives attempted: decreased environmental stimuli, 1:1 patient care, placed near Nurse station, reoriented to location, medications evaluated, repositioned, trained sitter in room, Alternative interventions: Ineffective. Clinical justification for use: Violent/self destructing behavior impacts therapeutic environment. Poses a serious danger to physical safety of self \\T\\ others. Monitoring: Mental status: agitated/restless, verbally abusive, Cognition: poor judgement, poor safety awareness, Impulsive, Circulation: Within defined parameters (based on Cardiovascular assessment). Skin integrity: Within defined parameters (based on Integumentary assessment) Restraint status: Soft wrist restraint (Right) Continued. Soft wrist restraint (Left) Continued. Readiness for Discontinue: Criteria not met. Patient still violent/self destructive and Alternative interventions still ineffective. Restraint continued. 10:00 Violent/Self Destructive Restraint: Observed actions/behavior: violent, harming bp self/others, repeated attempts to get up from bed/chair without assistance. unable to follow instructions, Less restrictive alternatives attempted: decreased environmental stimuli, 1:1 patient care, placed near Nurse station, reoriented to location, medicated for pain/anxiety, repositioned, trained sitter in room, Alternative interventions: Ineffective. Clinical justification for use: Violent/self destructing behavior impacts therapeutic environment. Poses a serious danger to physical safety of self \\T\\ others. Monitoring: Mental status: agitated/restless, verbally abusive, Cognition: poor judgement, poor safety awareness, Impulsive, Circulation: Within defined parameters (based on Cardiovascular assessment). Skin integrity: Within defined parameters (based on Integumentary assessment) No injuries due to Restraints noted. Range of Motion: declined. Hydration/Food: patient declined. Elimination/Hygiene: Patient declined. Restraint status: Soft wrist restraint (Right) Continued. Soft wrist restraint (Left) Continued. Readiness for Discontinue: Criteria not met. Patient still violent/self destructive and Alternative interventions still ineffective. Restraint continued. 10:15 Violent/Self Destructive Restraint: Observed actions/behavior: bp confusion/disorientation, impaired decision making, repeated attempts to get up from bed/chair without assistance. unable to follow instructions, Less restrictive alternatives attempted: decreased environmental stimuli, 1:1 patient care, placed near Nurse station, reoriented to location, medications evaluated, repositioned, trained sitter in room, Alternative interventions: Ineffective. Clinical justification for use: Violent/self destructing behavior impacts therapeutic environment. Poses a serious danger to physical safety of self \\T\\ others. Monitoring: Mental status: confused. Cognition: Unable to assess. poor attention/concentration, unable to follow commands, Circulation: Within defined parameters (based on Cardiovascular assessment). Skin integrity: Within defined parameters (based on Integumentary assessment) No injuries due to Restraints noted. Restraint status: Soft wrist restraint (Right) Continued. Soft wrist restraint (Left) Continued. Readiness for Discontinue: Criteria not met. Patient still violent/self destructive and Alternative interventions still ineffective. Restraint continued. 10:30 Violent/Self Destructive Restraint: Restraint status: Soft wrist restraint (Right) bp Continued. Soft wrist restraint (Left) Continued. Readiness for Discontinue: Release criteria met. No longer exhibiting violent or self destructive behavior. Alt interventions effective. Restraint discontinuation: Discontinued at August 24, 2019 at 10:30 Effective alternative interventions: medicated for pain/anxiety. Administered Medications: 00:42 Drug: Ativan 1 mg Route: IVP; Site: left forearm; bb 01:45 Follow up: Response: No adverse reaction; Other; patient asleep not aggressive. rr5 00:55 Drug: Geodon 20 mg Route: IM; Site: right deltoid; rr5 01:45 Follow up: Response: No adverse reaction; Other; patient asleep not aggressive rr5 04:39 Drug: Ativan 2 mg Route: IVP; Site: left forearm; wh 08:52 Follow up: Response: No adverse reaction bp 08:52 Drug: Ativan 2 mg Route: IVP; Site: left forearm; bp 10:07 Follow up: Response: No adverse reaction bp 10:07 Drug: Geodon 20 mg Route: IM; Site: left vastus lateralis; bp 14:40 Follow up: Response: Anxiety decreased bp Intake: Outcome: 13:56 ER care complete, transfer ordered by . kdr 14:46 Transferred by [facility] Transfer form completed. Note: [facility] [place] 14:46 Condition: stable 14:46 Instructed on the need for transfer. 15:01 Patient left the ED. bp Signatures: Kevyn Carrillo MD MD kdr Ballard, Brenda RN RN Ivone Romero RN RN hb Herrera, Deanna 3 Rafal Guerrero Brian, RN RN Josh Allan MD MD 4 Lesly Trevino Christina 8 Casey Berrios RN RN rr5 Pasquale Bone 4 Corrections: (The following items were deleted from the chart) 03:50 03:44 Safety checks: Items removed: yes. Door open/sign placed on door: yes. Sitter cs8 present: Yes. cs8 03:57 02:54 Safety checks: Door open/sign placed on door: Sitter present: Yes. cs8 cs8 08:29 08:15 Reassessment: PT REPEATEDLY COMBATIVE WITH STAFF AND MAKING SELF-INJURIOUS bp GESTURES, USING PROFANITY AND THREATS AT STAFF. PT REQUIRING FREQUENT PHYSICAL REDIRECTION TO CEASE THESE BEHAVIORS bp 09:48 09:37 behavioral facility called for nurse to nurse [place] [id number]
--- NOTE | 2019-08-24 13:58 | EDPHYS ---
Physician Documentation [facility] Name: Macrina Mason Age: 73 yrs Sex: Female : 1945 Arrival Date: 08/23/2019 Time: 23:51 Bed 14 Private MD: ED Physician Kevyn Carrillo HPI: 08/24 06:52 This 73 yrs old Female presents to ER via EMS with complaints of Suicidal tw4 Ideation. 06:52 The patient presents to the emergency department with suicide ideation, but the patient tw4 has no formulated plan. Onset: The symptoms/episode began/occurred today. Past psychiatric history: Prior diagnosis: schizophrenia. Associated signs and symptoms: The patient has no apparent associated signs or symptoms. 06:53 Past psychiatric history: Psychiatric medications include: Wellbutrin, Zoloft. Severity tw4 of symptoms: At their worst the symptoms were moderate in the emergency department the symptoms are unchanged. Unable to obtain HPI due to patient is being uncooperative. Historical: - Allergies: 08/23 23:50 No Known Allergies; rr5 - Home Meds: 23:50 Amitiza 24 mcg Oral cap 1 cap 2 times per day [Active]; amitriptyline 25 mg Oral tab 1 rr5 tab 2 times per day [Active]; aspirin 325 mg Oral tab 1 tab once daily [Active]; atorvastatin 20 mg Oral tab 1 tab once daily [Active]; Bisacodyl Oral as needed [Active]; Breo Ellipta 200-25 mcg/dose inhalation dsdv 1 puff once daily [Active]; bupropion HCl 300 mg Oral Tb24 1 tab once daily [Active]; carbamazepine 200 mg Oral CM12 1 cap 2 times per day [Active]; carvedilol 6.25 mg Oral tab 1 tab 2 times per day [Active]; diclofenac sodium 75 mg Oral TbEC 1 tab 2 times per day [Active]; divalproex 500 mg Oral Tb24 1 tab once daily [Active]; duloxetine 60 mg Oral cpDR 1 cap once daily [Active]; donepezil 10 mg Oral tab 1 tab twice a day [Active]; fexofenadine 180 mg Oral tab 1 tab once daily [Active]; flaxseed oil 1,000 mg Oral cap daily [Active]; folic acid 800 mcg Oral tab 1 tab once daily [Active]; gabapentin 800 mg Oral tab 3 times per day [Active]; lisinopril 2.5 mg Oral tab 1 tab twice a day [Active]; lorazepam 0.5 mg Oral tab 1 tab 2 times per day [Active]; oxybutynin chloride 5 mg Oral tr24 2 tabs once daily [Active]; levothyroxine 200 mcg tab 1 tab once daily [Active]; memantine 10 mg Oral tab 1 tab 2 times per day [Active]; mirtazapine 30 mg Oral tab 1 tab once daily [Active]; promethazine 25 mg Oral tab 1 tab every 6 hours [Active]; topiramate 100 mg Oral CSpX 1 cap once daily [Active]; trazodone 50 mg Oral tab nightly [Active]; - PMHx: 23:50 allergies; Back pain; Bipolar disorder; COPD; DVT; Schizophrenia; UTI; rr5 - Immunization history:: Adult Immunizations unknown. - Coronavirus screen:: The patient has NOT traveled to [place] in the past 14 days. Proceed with normal triage process as indicated. - Social history:: Smoking status: unknown. - Ebola Screening: : Unable to complete screening because. ROS: 08/24 06:53 Unable to obtain ROS due to patient being uncooperative. tw4 16:07 Constitutional: The patient is uncooperative kdr Exam: 06:53 Head/Face: Normocephalic, atraumatic. tw4 06:53 Chest/axilla: Normal chest wall appearance and motion. Nontender with no deformity. No lesions are appreciated. Cardiovascular: Regular rate and rhythm with a normal S1 and S2. No gallops, murmurs, or rubs. Normal PMI, no JVD. No pulse deficits. Respiratory: Lungs have equal breath sounds bilaterally, clear to auscultation and percussion. No rales, rhonchi or wheezes noted. No increased work of breathing, no retractions or nasal flaring. Abdomen/GI: Soft, non-tender, with normal bowel sounds. No distension or tympany. No guarding or rebound. No evidence of tenderness throughout. MS/ Extremity: Pulses equal, no cyanosis. Neurovascular intact. Full, normal range of motion. 06:53 Constitutional: The patient appears in no acute distress, awake, pt is uncooperative holding her breath 06:53 Neuro: Orientation: unable to test, the patient refuses to cooperate, Mentation: slow to respond, Motor: moves all fours, unable to test, the patient refuses to cooperate. 06:53 Psych: Behavior/mood is aggressive, angry, delirious, Affect is animated, Patient having thoughts of suicide. Denies suicidal plan. Vital Signs: 08/23 23:50 BP 141 / 100; Pulse 75; Resp 19; Temp 98.1; Pulse Ox 99% ; Weight 108.86 kg; rr5 08/24 00:30 BP 145 / 105; Pulse 79; Resp 17; Temp 98.1(A); Pulse Ox 99% ; rr5 00:45 BP 121 / 74; Pulse 82; Resp 17; Pulse Ox 100% ; rr5 01:00 BP 126 / 104; Pulse 61; Resp 17; Pulse Ox 98% on R/A; rr5 01:15 BP 126 / 104; Pulse 77; Resp 18; Pulse Ox 99% on R/A; rr5 01:15 BP 136 / 99; Pulse 80; Resp 20; Pulse Ox 100% ; rr5 01:30 BP 115 / 45; Pulse 75; Resp 17; Pulse Ox 96% on R/A; rr5 01:45 BP 98 / 45; Pulse 59; Resp 16; Pulse Ox 97% ; rr5 02:00 BP 95 / 59; Pulse 60; Resp 15; Temp 98; Pulse Ox 95% ; rr5 03:00 BP 95 / 45; Pulse 62; Resp 16; Pulse Ox 97% ; rr5 03:19 BP 118 / 51; Pulse 73; Resp 18; Pulse Ox 98% ; rr5 04:30 BP 122 / 59; Pulse 63; Resp 16; Pulse Ox 97% ; wh 05:55 BP 111 / 46 LA; Pulse 54 LA; Resp 20; Pulse Ox 98% on R/A; cs8 07:00 BP 122 / 51; Pulse 72; Resp 16; Pulse Ox 95% ; bp 08:16 BP 92 / 61; Pulse 68; Resp 18; Pulse Ox 98% on R/A; dh3 09:48 BP 145 / 49; Pulse 70; Resp 16; Pulse Ox 97% ; bp 10:54 BP 120 / 53; Pulse 69; Resp 17; Pulse Ox 96% ; bp 11:58 BP 102 / 49; Pulse 59; Resp 16; Pulse Ox 98% ; bp MDM: 08/23 23:55 Patient medically screened. tw4 08/24 13:57 Data reviewed: vital signs, nurses notes. Counseling: I had a detailed discussion with kdr the patient and/or guardian regarding: the historical points, exam findings, and any diagnostic results supporting the discharge/admit diagnosis, lab results, the need to transfer to another facility. 08/23 23:55 Order name: Acetaminophen; Complete Time: 06:10 08/24 06:10 Interpretation: Normal except: ACETA < 2.0. 08/23 23:55 Order name: Basic Metabolic Panel; Complete Time: 06:10 08/24 06:10 Interpretation: Normal except: GFR 21; CRE 2.28; BUN 40. 08/23 23:55 Order name: CBC with Diff; Complete Time: 06:10 08/24 06:11 Interpretation: Normal except: WBC 7.6; RBC 3.10; HGB 9.8; HCT 30.3; EOSINOPHIL % 8.3. 08/23 23:55 Order name: ETOH Level; Complete Time: 06:10 08/24 06:12 Interpretation: Within normal limits: ETOH < 10. 08/23 23:55 Order name: Hepatic Function; Complete Time: 06:10 08/24 06:11 Interpretation: Normal except: AST 11; ALT 11; ALK 123; TP 6.2; ALB 2.9; A/G 0.9. 08/23 23:55 Order name: PT-INR; Complete Time: 06:10 08/24 06:12 Interpretation: Within normal limits: PT 11.0. 08/23 23:55 Order name: Ptt, Activated; Complete Time: 06:10 08/24 06:12 Interpretation: Within normal limits: PTT 29.8. 08/23 23:55 Order name: Salicylate; Complete Time: 06:10 08/24 06:11 Interpretation: Normal except: ROSA MARIA < 1.7. 08/23 23:55 Order name: Urine Drug Screen; Complete Time: 06:10 08/24 06:12 Interpretation: Normal except: BZO POSITIVE. 08/24 00:42 Order name: Urine Dipstick--Ancillary (enter results); Complete Time: 06:10 [facility] 08/24 00:43 Order name: Urine Culture mw2 08/23 23:55 Order name: EKG; Complete Time: 23:58 tw4 08/23 23:55 Order name: EKG - Nurse/Tech; Complete Time: 00:31 tw4 08/23 23:55 Order name: IV Saline Lock; Complete Time: 00:31 tw4 08/23 23:55 Order name: Labs collected and sent; Complete Time: 00:31 tw4 08/23 23:55 Order name: Urine Dipstick-Ancillary (obtain specimen); Complete Time: 00:31 tw4 08/24 03:25 Order name: Restraint:Violent/Self Destructive (Adult:18yo or >); Complete Time: 03:24 rr5 08/24 07:25 Order name: Diet Regular; Complete Time: 07:26 dh3 08/24 08:53 Order name: Restraint:Violent/Self Destructive (Adult:18yo or >); Complete Time: 08:54 bp 08/24 12:42 Order name: Diet Regular; Complete Time: 12:42 dh3 Administered Medications: 00:42 Drug: Ativan 1 mg Route: IVP; Site: left forearm; bb 01:45 Follow up: Response: No adverse reaction; Other; patient asleep not aggressive. rr5 00:55 Drug: Geodon 20 mg Route: IM; Site: right deltoid; rr5 01:45 Follow up: Response: No adverse reaction; Other; patient asleep not aggressive rr5 04:39 Drug: Ativan 2 mg Route: IVP; Site: left forearm; wh 08:52 Follow up: Response: No adverse reaction bp 08:52 Drug: Ativan 2 mg Route: IVP; Site: left forearm; bp 10:07 Follow up: Response: No adverse reaction bp 10:07 Drug: Geodon 20 mg Route: IM; Site: left vastus lateralis; bp 14:40 Follow up: Response: Anxiety decreased bp Disposition: 08/24/19 13:56 Transfer ordered to Psych Facility. Diagnosis are Suicidal ideations, Major depressive disorder, recurrent. - Reason for transfer: Higher level of care. - Accepting physician is Dr. Wilde. - Condition is Fair. - Problem is an acute exacerbation. - Symptoms are unchanged. Signatures: Dispatcher [employer] EDKevyn Espino MD MD kdr Ballard, Brenda, RN RN [place] Puckett Brian RN RN Josh Allan MD MD tw4 Casey Berrios RN RN rr5 Corrections: (The following items were deleted from the chart) 15:01 13:56 08/24/2019 13:56 Transfer ordered to Psych Facility. Diagnosis is Suicidal bp ideations; Major depressive disorder, recurrent. Reason for transfer: Higher level of care. Accepting physician is Dr. Wilde. Condition is Fair. Problem is an acute exacerbation. Symptoms are unchanged. kdr
[2019-08-24 15:28] VITALS: TEMP 98
[2019-08-24 15:47] VITALS: BP 102/49; O2SAT 98
== END 2019-08-24 15:01 ==
LOC: ER 23:45
DX: F33.9 Major depressive disorder, recurrent, unspecified (principal); F20.9 Schizophrenia, unspecified; J44.9 Chronic obstructive pulmonary disease, unspecified; Z79.82 Long term (current) use of aspirin
CPT/HCPCS: 93005; 87088; 85025; 87086; 80048; 36415; 80320; 80329 ×2; 85610; 80076; 80307 ×8; 85730; 81003; 51702; 96372; 96374; 99285; J3486 ×2

== ENCOUNTER 2019-09-13 20:22 | Inpatient (IN) | payer OTHER, BC ==
--- OUTSIDE RECORDS SUMMARY | 2019-09-13 20:24 | XMS REPORT ---
:1945 Author Organization [facility] Address [address] [place] [address] Care Team Providers Name Role Phone Unavailable Unavailable Unavailable Payers Payer Name Policy Type Policy Number Effective Date Expiration Date Problems This patient has no known problems. Allergies, Adverse Reactions, Alerts Allergy Allergy Status Severity Reaction(s) Onset Inactive Treating Comments Name Type Date Date Clinician No Known DA Active U 2019-08 Allergies 20 00:00:0 0 Medications This patient has no known medications. Results Test Description Test Time Test Comments Text Results Atomic Results Result Comments VALPROIC ACID (DEPAKENE) 2019-08-31 07:37:00 Test Item Value Reference Range Comments VALPROIC ACID (DEPAKENE) (test code=VALP) 45.7 ug/mL 50.0-100.0 HGBA1C - GLYCOSYLATED [id number] 14:38:00 Test Item Value Reference Range Comments GLYCOSYLATED HEMOGLOBIN (HA1C) (test code=GLYHGB) 4.7 % 4.0-6.0 URINALYSIS [id number] 13:31:00 Test Item Value Reference Range Comments UA COLOR (test code=COLU) YELLOW YELLOW UA APPEARANCE (test code=APPU) CLOUDY CLEAR UA GLUCOSE DIPSTICK (test code=DGLUU) NEGATIVE MG/AL NEGATIVE UA BILIRUBIN DIPSTICK (test code=BILU) NEGATIVE NEGATIVE UA KETONE DIPSTICK (test code=KETU) NEGATIVE MG/DL NEGATIVE UA SPECIFIC GRAVITY (test code=SGU) 1.020 1.000-1.030 UA BLOOD DIPSTICK (test code=DAMIEN) 1+ NEGATIVE UA PH DIPSTICK (test code=RJ) 5.5 4.5-8.5 UA PROTEIN DIPSTICK (test code=PROU) 30 (1+) NEGATIVE UA UROBILINOGEN DIPSTICK (test code=URO) 0.2 EU/dL <=1.0 UA NITRITE DIPSTICK (test code=MARY ALICE) POSITIVE NEGATIVE UA LEUKOCYTE ESTERASE DIPSTICK (test 3+ NEGATIVE code=LEUU) UA WBC (test code=WBCU) >100 /HPF 0-3 UA RBC (test code=RBCU) 0-3 /HPF 0-3 UA EPITHELIAL CELLS (test code=EPIU) 3+ /LPF NONE-FEW UA BACTERIA (test code=BACU) 3+ /HPF NEGATIVE URINALYSIS [id number] 13:20:00 Test Item Value Reference Range Comments UA COLOR (test code=COLU) YELLOW YELLOW UA APPEARANCE (test code=APPU) CLOUDY CLEAR UA GLUCOSE DIPSTICK (test code=DGLUU) NEGATIVE MG/AL NEGATIVE UA BILIRUBIN DIPSTICK (test code=BILU) NEGATIVE NEGATIVE UA KETONE DIPSTICK (test code=KETU) NEGATIVE MG/DL NEGATIVE UA SPECIFIC GRAVITY (test code=SGU) 1.020 1.000-1.030 UA BLOOD DIPSTICK (test code=DAMIEN) 1+ NEGATIVE UA PH DIPSTICK (test code=RJ) 5.5 4.5-8.5 UA PROTEIN DIPSTICK (test code=PROU) 30 (1+) NEGATIVE UA UROBILINOGEN DIPSTICK (test code=URO) 0.2 EU/dL <=1.0 UA NITRITE DIPSTICK (test code=MARY ALICE) POSITIVE NEGATIVE UA LEUKOCYTE ESTERASE DIPSTICK (test 3+ NEGATIVE code=LEUU) UA WBC (test code=WBCU) /HPF 0-3 UA RBC (test code=RBCU) /HPF 0-3 UA EPITHELIAL CELLS (test code=EPIU) /LPF NONE-FEW UA BACTERIA (test code=BACU) /HPF NEGATIVE BASIC METABOLIC [id number] 12:49:00 Test Item Value Reference Range Comments SODIUM (test code=NA) 140 mmol/L 136-145 POTASSIUM (test code=K) 5.1 MMOL/L 3.6-5.2 CHLORIDE (test code=CL) 108 MMOL/L 98-110 CARBON DIOXIDE (test 23 mEq/L 24-32 code=CO2) GLUCOSE (test code=GLU) 88 mg/dL 70-110 BLOOD UREA NITROGEN (test 29 mg/dL 7-18 code=BUN) GLOMERULAR FILTRATION RATE 36 >60 The estimated glomerular (test code=GFR) filtration rate is computed usingpatient race, age (>18), sex, and serum creatinine. If anyof the needed data elements are missing the Laboratory cannot compute an estimation of the glomerular filtration rate. CREATININE (test code=CREAT) 1.53 mg/dL 0.60-1.30 CALCIUM (test code=CA) 9.2 mg/dL 8.6-10.4 BASIC METABOLIC [id number] 12:43:00 Test Item Value Reference Range Comments SODIUM (test code=NA) mmol/L 136-145 POTASSIUM (test code=K) 5.1 MMOL/L 3.6-5.2 CHLORIDE (test code=CL) MMOL/L 98-110 CARBON DIOXIDE (test mEq/L 24-32 code=CO2) GLUCOSE (test code=GLU) mg/dL 70-110 BLOOD UREA NITROGEN (test 29 mg/dL 7-18 code=BUN) GLOMERULAR FILTRATION RATE 36 >60 The estimated glomerular (test code=GFR) filtration rate is computed usingpatient race, age (>18), sex, and serum creatinine. If anyof the needed data elements are missing the Laboratory cannot compute an estimation of the glomerular filtration rate. CREATININE (test code=CREAT) 1.53 mg/dL 0.60-1.30 CALCIUM (test code=CA) mg/dL 8.6-10.4 CBC W/AUTO [id number] 12:02:00 Test Item Value Reference Range Comments WHITE BLOOD CELL (test code=WBC) 6.89 K/mm3 5.0-12.0 RED BLOOD CELL (test code=RBC) 2.93 M/mm3 4.20-5.40 HEMOGLOBIN (test code=HGB) 9.2 G/DL 12.0-16.0 HEMATOCRIT (test code=HCT) 30.0 % 36.0-46.0 MEAN CELL VOLUME (test code=MCV) 102 fL 81-99 MEAN CELL HGB (test code=MCH) 31.4 PGM 27-31 MEAN CELL HGB CONCENTRATION (test code=MCHC) 30.7 G/DL 33-37 RED CELL DISTRIBUTION WIDTH (test code=RDW) 13.3 % 11.6-16.2 PLATELET COUNT (test code=PLT) 190 K/mm3 130-400 MEAN PLATELET VOLUME (test code=MPV) 11.3 fl 7.4-10.4 NEUTROPHIL % (test code=NT%) 64.0 % 43-65 IMMATURE GRANULOCYTE % (test code=IG%) 0.4 % 0.0-2.0 LYMPHOCYTE % (test code=LY%) 21.2 % 20.5-45.5 MONOCYTE % (test code=MO%) 7.5 % 5.5-11.7 EOSINOPHIL % (test code=EO%) 6.5 % 0.9-2.9 BASOPHIL % (test code=BA%) 0.4 % 0.2-1.0 NUCLEATED RBC % (test code=NRBC%) 0.0 % 0-1.0 NEUTROPHIL # (test code=NT#) 4.40 K/mm3 2.2-4.8 LYMPHOCYTE # (test code=LY#) 1.46 K/mm3 1.3-2.9 MONOCYTE # (test code=MO#) 0.52 K/mm3 0.3-0.8 EOSINOPHIL # (test code=EO#) 0.45 K/MM3 0.0-0.2 BASOPHIL # (test code=BA#) 0.03 K/mm3 0.0-0.1 LIPID PROFILE (CORONARY RISK)2019-08-27 12:09:00 Test Item Value Reference Range Comments TRIGLYCERIDES (test 149 mg/dL 35-160 X-wguvtx-l-benzoquinone imine code=TRIG) (NAPQI), a metabolite ofacetaminophen (paracetamol), may generate erroneously lowresults in samples for patients that have taken toxic dosesof acetaminophen (paracetamol). CHOLESTEROL (test code=CHOL) 211 mg/dL 50-200 HDL CHOLESTEROL (test 50 mg/dL 35-85 code=HDL) LIPOPROTEIN LDL TORI (test 131 MG/DL 10-130 code=LDLC) CORONARY RISK FACTOR (test 4.22 code=RISK) CHOL/HDL RISK MALE: 1/2 AVG 3.43 FEMALE: 1/2 AVG 3.27 AVG 4.97 AVG 4.44 2X AVG 9.55 2X AVG 7.05 3X AVG 23.39 3X AVG 11.04~~~~~~~~~~~~~~~~~~~~~~~~~ ~~~~~~~~~~~~~~~~~~~~~~~~~~~~~~ ~~~~~National Cholesterol Education (NCEP) Guidelines:~~~~~~~~~~~~~~~~~~~ ~~~~~~~~~~~~~~~~~~~~~~~~~~~~~~ ~~~~~~~~~~~ HDL Cholesterol<40mg/dL: HDL Cholesterol (Major risk factor for CHD)>60mg/dL: HDL Cholesterol (Negative risk factor for CHD)40-59mg/dL: Borderline Risk LDL Cholesterol<100mg/dL: Desirable LDL-C yyosaiuyejfrv773-520yr/dL: Borderline High Risk LDL-C vpkvuoahgweki823-960rk/dL: High risk LDL-C concentration HDL-LDL Cholesterol is affected by a number of factors suchas smoking, age and sex.~~~~~~~~~~~~~~~~~~~~~~~~~~ ~~~~~~~~~~~~~~~~~~~~~~~~~~~~~~ ~~~~ THYROID STIMULATING [id number] 12:09:00 Test Item Value Reference Range Comments THYROID STIMULATING HORMONE (test code=TSH) 8.41 mIU/mL 0.38-5.60
--- OUTSIDE RECORDS SUMMARY | 2019-09-13 20:24 | XMS REPORT ---
[...] Date Status Dosage System Date Topiramate ND 76848171251 100 MG Orally Active 1 tablet twice a day Levothyroxine ND 85831059716 200 MCG Orally Active 1 tablet Sodium Once a day on an empty stomach in the morning Imodium A-D ND 88647735324 2 MG Orally Active 1 tablet Four times a as needed day Melatonin ND 53016867147 3 MG Orally Active 1 tablet Once a day at bedtime as needed with food Oxybutynin ND 76629658900 5 MG Oral twice Active 1 tablet Chloride ER a day Lisinopril ND 04798497541 2.5 MG Orally Active 1 tablet twice a day Ipratropium-Albu ND 83839208425 0.5-2.5 (3) Active 3 ml terol MG/3ML Inhalation every 6 hrs Levothyroxine ND 82715080749 25 MCG Orally Oct 24, Active 1 tablet Sodium Once a day 2018 in the morning on an empty stomach Simethicone [facility] 82777017284 80 MG Orally Active 1 tablet Four times a after day meals and at bedtime as needed Memantine HCl [facility] 14910723059 10 MG Orally Active 1 tablet Twice a day Donepezil HCl [facility] 68793489678 10 MG Oral Active 1 tablet twice a day at bedtime Carbamazepine [facility] 21811536489 200 MG Orally Active 1 tablet once a day Claritin [facility] 83837346048 10 MG Orally December 08, Active 1 tablet Once a day 2018 BuPROPion HCl ER [facility] 30375493030 300 MG Orally Active 1 tablet (XL) Once a day in the morning Calcium ND 0 Oral Active 1 tab Cipro [facility] 40786956156 500 MG Orally May 12, May 19, Active 1 tablet every 12 hrs 2018 2018 Oxybutynin [facility] 02373295706 5 MG Orally Apr 27October Active 1 tablet Chloride Twice a day 2018 Benadryl Allergy [facility] 82582480381 25 MG Orally Active 1 tablet every 8 hrs as needed Imitrex [facility] 06497493844 50 MG Orally Apr 03, Active 1 tablet Once a day november 2018 as needed repeat dose 1 dose in 2 hours ( max 2 doses in 24 hours) Carvedilol [facility] 19011129641 6.25 MG Orally Active 1 tablet Twice a day Promethazine HCl [facility] 17153012033 25 MG/ML Active 1 ml as Injection every needed 6 hrs Zantac [facility] 08626132422 150 MG Orally Active 1 tablet Once a day at bedtime Duloxetine HCl [facility] 20820526521 60 MG Orally Active 1 capsule Once a day Folic Acid-Vit [facility] [address]240 0.8-10-0.115 MG Active 1 tablet B6-Vit B12 Orally Once a day Divalproex [facility] 43295522044 500 MG Orally Active 1 tablet Sodium Twice a day Vitamin D [facility] 34776281607 1000 UNIT Active 1 tablet Orally Once a day Diclofenac [facility] 41504974755 75 MG Orally Active 1 tablet Sodium Twice a day with food or milk Flonase [facility] 31083881875 50 MCG/DOSE December 08, Active 1 spray in Nasally Twice a 2018 each day nostril Protonix [facility] 19810640830 40 MG Orally Active 1 tablet Once a day Atorvastatin [facility] 53759676484 20 MG Orally Active 1 tablet Calcium Once a day Trazodone HCl [facility] 10168784180 50 MG Oral Active not defined Gabapentin [facility] 05183340194 800 MG Orally Active 1 tablet three times a day Ondansetron HCl [facility] 28309734474 4 MG Orally Active 1 tablet every 6 hrs Results Name Result Date Reference Range Unit Abnormality Flag Urine Dip Stick ----Appearance yellow and cloudy 20190512 ----SP. Gr 1.015 20190512 ----pH 6.0 20190512 ----Ketone NEG 20190512 ----Glucose NEG 20190512 ----Blood 2+ 20190512 ----Protein 1+ 20190512 ----Nitrite POS 20190512 ----Leukocytes 3+ 20190512 Summary Purpose eClinicalWorks Submission
--- OUTSIDE RECORDS SUMMARY | 2019-09-13 20:25 | XMS REPORT ---
[...] End Status Dosage System Date Date Carvedilol [facility] 86420910874 6.25 MG Orally Active 1 tablet Twice a day Lisinopril [facility] 08799063581 2.5 MG Orally Active 1 tablet twice a day Carbamazepine [facility] 56983350954 200 MG Orally Active 1 tablet once a day Ondansetron HCl NDC 90710867694 4 MG Orally Active 1 tablet every 6 hrs Vitamin D [facility] 50407887756 1000 UNIT Active 1 tablet Orally Once a day Melatonin ND 98212614288 3 MG Orally Active 1 tablet Once a day at bedtime as needed with food Protonix [facility] 65057050930 40 MG Orally Active 1 tablet Once a day Imitrex ND 77526236725 50 MG Orally Apr 03, Active 1 tablet Once a day november 2018 as needed repeat dose 1 dose in 2 hours ( max 2 doses in 24 hours) Donepezil HCl [facility] 20356510443 10 MG Oral Active 1 tablet twice a day at bedtime Claritin [facility] 17005934279 10 MG Orally December 08, Active 1 tablet Once a day 2018 Duloxetine HCl [facility] 54663091290 60 MG Orally Active 1 capsule Once a day Benadryl Allergy [facility] 07286514964 25 MG Orally Active 1 tablet every 8 hrs as needed Simethicone [facility] 40817899382 80 MG Orally Active 1 tablet Four times a after day meals and at bedtime as needed Imodium A-D [facility] 19026099727 2 MG Orally Active 1 tablet Four times a as needed day Gabapentin [facility] 51850512911 800 MG Orally Active 1 tablet three times a day Oxybutynin [facility] 47480833364 5 MG Oral twice Active 1 tablet Chloride ER a day Ipratropium-Albu [facility] 19908408185 0.5-2.5 (3) Active 3 ml terol MG/3ML Inhalation every 6 hrs Zofran [facility] 51970501128 4 MG Orally Jun 17, Active 1 tablet every 12 hrs 2018 prn nausea Trazodone HCl [facility] 84134187763 50 MG Oral Active not defined Zantac [facility] 56988751759 150 MG Orally Active 1 tablet Once a day at bedtime Atorvastatin [facility] 66205669331 20 MG Orally Active 1 tablet Calcium Once a day Levothyroxine [facility] 98841939011 25 MCG Orally Apr 24, Active 1 tablet Sodium Once a day 2018 in the morning on an empty stomach Divalproex [facility] 97722298696 500 MG Orally Active 1 tablet Sodium Twice a day Levothyroxine [facility] 59292729855 200 MCG Orally Active 1 tablet Sodium Once a day on an empty stomach in the morning Flonase [facility] 20313416740 50 MCG/DOSE December 08, Active 1 spray Nasally Twice a 2019 in each day nostril Diclofenac [facility] 29652358932 75 MG Orally Active 1 tablet Sodium Twice a day with food or milk BuPROPion HCl ER [facility] 32314545568 300 MG Orally Active 1 tablet (XL) Once a day in the morning Memantine HCl [facility] 68834009530 10 MG Orally Active 1 tablet Twice a day Promethazine HCl [facility] 99546287340 25 MG/ML Inactive 1 ml as Injection every needed 6 hrs Folic Acid-Vit [facility] 27535-[address]94 0.8-10-0.115 MG Active 1 tablet B6-Vit B12 Orally Once a day Topiramate [facility] 79881965376 100 MG Active TAKE 1 TABLET BY MOUTH TWICE DAILY Oxybutynin [facility] 32118134761 5 MG Orally Apr 27October Active 1 [...] 20190616 7-18 mg/dL H ----Glucose Level 85 77219135 74-106 mg/dL ----Sodium Level 143 20190616 136-145 mmol/L ----Potassium 5.3 69502791 3.5-5.1 mmol/L H ----Chloride Level 114 20190616 98-107 mmol/L H ----Bicarbonate 26 20190616 21-32 mmol/L Summary Purpose eClinicalWorks Submission
--- OUTSIDE RECORDS SUMMARY | 2019-09-13 20:25 | XMS REPORT ---
[...] Status Dosage System Date Date Comp Air [facility] [id number] - every 6 hours Jun 16, Active as directed Compressor as needed 2019 Nebulizer Results No Known Results Summary Purpose eClinicalWorks Submission
--- OUTSIDE RECORDS SUMMARY | 2019-09-13 20:25 | XMS REPORT ---
:1945 Author Organization [employer] Care Team Providers Name Role Phone Alerge, Na Provider Role Unavailable Allergies No Known [...]
--- OUTSIDE RECORDS SUMMARY | 2019-09-13 20:25 | XMS REPORT ---
[...] Date Status Dosage System Date Melatonin ND 95367637138 3 MG Orally Active 1 tablet Once a day at bedtime as needed with food Simethicone ND 08558183118 80 MG Orally Active 1 tablet Four times a after day meals and at bedtime as needed Calcium NDC 0 Oral Active 1 tab Vitamin D ND 00062236645 1000 UNIT Active 1 tablet Orally Once a day Donepezil HCl ND 07424851828 10 MG Oral Active 1 tablet twice a day at bedtime Oxybutynin ND 69030635311 5 MG Orally Apr 27October Active 1 tablet Chloride Twice a day 2018 Claritin ND 70207646017 10 MG Orally December 08, Active 1 tablet Once a day 2018 Protonix [facility] 61387108941 40 MG Orally Active 1 tablet Once a day Duloxetine HCl [facility] 41484730248 60 MG Orally Active 1 capsule Once a day Zantac [facility] 20271926637 150 MG Orally Active 1 tablet Once a day at bedtime Gabapentin [facility] 79936652744 800 MG Orally Active 1 tablet three times a day Oxybutynin [facility] 06181437003 5 MG Oral twice Active 1 tablet Chloride ER a day Topiramate [facility] 74850362829 100 MG Active TAKE 1 TABLET BY MOUTH TWICE DAILY BuPROPion HCl ER [facility] 81532465168 300 MG Orally Active 1 tablet (XL) Once a day in the morning Imitrex [facility] 82111924284 50 MG Orally Apr 03, Active 1 tablet Once a day november 2018 as needed repeat dose 1 dose in 2 hours ( max 2 doses in 24 hours) Benadryl Allergy [facility] 30234752742 25 MG Orally Active 1 tablet every 8 hrs as needed Imodium A-D [facility] 03324913962 2 MG Orally Active 1 tablet Four times a as needed day Atorvastatin [facility] 52382554616 20 MG Orally Active 1 tablet Calcium Once a day Levothyroxine [facility] 26849247382 200 MCG Orally Active 1 tablet Sodium Once a day on an empty stomach in the morning Ipratropium-Albu [facility] 01661792492 0.5-2.5 (3) Active 3 ml terol MG/3ML Inhalation every 6 hrs Folic Acid-Vit [facility] 35445-61504 0.8-10-0.115 MG Active 1 tablet B6-Vit B12 Orally Once a day Flonase [facility] 69902894336 50 MCG/DOSE December 08, Active 1 spray in Nasally Twice a 2018 each day nostril Zofran [facility] 93894147425 4 MG Orally Jun 17, Active 1 tablet every 12 hrs 2019 prn nausea Lisinopril [facility] 68935615442 2.5 MG Orally Active 1 tablet twice a day Diclofenac ND 45735075067 75 MG Orally Active 1 tablet Sodium Twice a day with food or milk Levothyroxine [facility] 31261525153 25 MCG Orally Apr 27, Active 1 tablet Sodium Once a day 2018 in the morning on an empty stomach Memantine HCl [facility] 97451977504 10 MG Orally Active 1 tablet Twice a day Comp Air [facility] 80064892305 - every Jun 16, Active as Compressor hours as needed 2019 directed Nebulizer Carvedilol [facility] 95257991423 6.25 MG Orally Active 1 tablet Twice a day Carbamazepine [facility] 76203984691 200 MG Orally Active 1 tablet once a day Trazodone HCl [facility] 76485129100 50 MG Oral Active not defined Divalproex [facility] 39831029477 500 MG Orally Active 1 tablet Sodium Twice a day Ondansetron HCl [facility] 91394549782 4 MG Orally Active 1 tablet every 6 hrs Results Name Result Date Reference Range Unit Abnormality Flag Sjogren's Ab, Anti-SSA/-SSB ----Sjogren's <0.2 [id number] 0.0-0.9 AI Anti-SS-A ----Sjogren's <0.2 [id number] 0.0-0.9 AI Anti-SS-B EDWIN w/Reflex ----EDWIN Direct Negative 20190627 Negative Comp. Metabolic Panel (14) (CMP) ----Sodium 142 20190627 134-144 mmol/L ----BUN/Creatinine 17 94769612 12-28 Ratio ----Chloride 106 62536302 96-106 mmol/L ----Potassium 5.5 51798952 3.5-5.2 mmol/L H ----Calcium 9.2 05398804 8.7-10.3 mg/dL ----Protein, Total 5.7 10950506 6.0-8.5 g/dL L ----Carbon Dioxide, 23 20190627 20-29 mmol/L Total ----A/G Ratio 1.9 64258475 1.2-2.2 ----eGFR If NonAfricn 38 29790619 >59 mL/min/1.73 L Am ----Bilirubin, Total <0.2 04458644 0.0-1.2 mg/dL ----eGFR If Africn Am 44 [id number] >59 mL/min/1.73 L ----Albumin 3.7 85019094 3.5-4.8 g/dL ----BUN 23 20190627 8-27 mg/dL ----Globulin, Total 2.0 20190627 1.5-4.5 g/dL ----Creatinine 1.38 20190627 0.57-1.00 mg/dL H ----ALT (SGPT) 13 20190627 0-32 IU/L ----Glucose 84 20190627 65-99 mg/dL ----Alkaline 122 20190627 39-117 IU/L H Phosphatase ----AST (SGOT) 13 20190627 0-40 IU/L Summary Purpose eClinicalWorks Submission
--- OUTSIDE RECORDS SUMMARY | 2019-09-13 20:25 | XMS REPORT ---
[...] End Date Status Dosage System Date Protonix [facility] 56943768236 40 MG Orally Active 1 tablet Once a day Benadryl Allergy [facility] 16695573656 25 MG Orally Active 1 tablet every 8 hrs as needed Folic Acid-Vit [facility] 22297-82527 0.8-10-0.115 MG Active 1 tablet B6-Vit B12 Orally Once a day Calcium ND 0 Oral Active [address] [facility] 66465327244 75 MG Orally Active 1 tablet Sodium Twice a day with food or milk Carbamazepine [facility] 01907311321 200 MG Orally Active 1 tablet once a day Ipratropium-Albu [facility] 66673878853 0.5-2.5 (3) Active 3 ml terol MG/3ML Inhalation every [address] [facility] 28227885912 80 MG Orally Active 1 tablet Four times a after day meals and at bedtime as needed Myrbetriq [facility] 97454732773 25 MG Orally Apr 27October Active 1 tablet Once a day [address] [facility] 42681181671 25 MCG Orally Apr 27, Active 1 tablet Sodium Once a day 2018 in the morning on an empty stomach Ondansetron HCl [facility] 91346951209 4 MG Orally Active 1 tablet every [address] [facility] 10465420787 800 MG Orally Active 1 tablet three times a day Atorvastatin [facility] 96352449679 20 MG Orally Active 1 tablet Calcium Once a day Oxybutynin [facility] 46234469303 5 MG Oral twice Active 1 tablet Chloride ER a day Claritin [facility] 88144561856 10 MG Orally December 08, Active 1 tablet Once a day [address] [facility] 87644402229 25 MG/ML Active 1 ml as Injection every needed [address] [facility] 03306252684 3 MG Orally Active 1 tablet Once a day at bedtime as needed with food Carvedilol [facility] 55720460190 6.25 MG Orally Active 1 tablet Twice a day Lisinopril [facility] 47570992706 2.5 MG Orally Active 1 tablet twice a day Donepezil HCl [facility] 97206103272 10 MG Oral Active 1 tablet twice a day at bedtime Vitamin D [facility] 70210418181 1000 UNIT Active 1 tablet Orally Once a day Duloxetine HCl [facility] 95888786691 60 MG Orally Active 1 capsule Once a day BuPROPion HCl ER [facility] 32506012765 300 MG Orally Active 1 tablet (XL) Once a day in the morning Flonase [facility] 24846510613 50 MCG/DOSE December 08, Active 1 spray in Nasally Twice a 2018 each day nostril Imodium A-D [facility] 62457251826 2 MG Orally Active 1 tablet Four times a as needed day Imitrex [facility] 98519891540 50 MG Orally Apr 03, Active 1 tablet Once a day november 2018 as needed repeat dose 1 dose in 2 hours ( max 2 doses in 24 hours) Levothyroxine [facility] 70968065612 200 MCG Orally Active 1 tablet Sodium Once a day on an empty stomach in the morning Topiramate [facility] 11105484949 100 MG Orally Active 1 tablet twice a day Divalproex [facility] 25830700696 500 MG Orally Active 1 tablet Sodium Twice a day Zantac [facility] 20833555264 150 MG Orally Active 1 tablet Once a day at bedtime Memantine HCl [facility] 11028471506 10 MG Orally Active 1 tablet Twice a day Trazodone HCl [facility] 28733308909 50 MG Oral Active not defined Results No Known Results Summary Purpose eClinicalWorks Submission
[2019-09-13 22:30] LABS: Absolute Lymphocytes (CBC) 0.9 K/uL (0.7-4.9); Basophils % 0.3 % (0-1.3); Hematocrit 32.5 % (36.0-45.0); Lymphocytes % 16.5 % (15.3-44.8); MPV 8.9 fL (7.6-11.3); RBC Red Blood Cell Count 3.34 M/uL (3.86-4.86)
[2019-09-13 22:31] LABS: Protime INR 0.99
--- NOTE | 2019-09-13 22:36 | RAD REPORT ---
EXAM DESCRIPTION: RAD - Pelvis - 09/13/2019 9:55 pm CLINICAL HISTORY: Pelvic pain status post injury FINDINGS: No fracture or dislocation is seen.
--- NOTE | 2019-09-13 22:37 | RAD REPORT ---
EXAM DESCRIPTION: RAD - Femur Right - 09/13/2019 9:55 pm CLINICAL HISTORY: Leg pain FINDINGS: No fracture is seen. No bony abnormality is displayed
--- NOTE | 2019-09-13 22:39 | RAD REPORT ---
EXAM DESCRIPTION: Zack Single View09/13/2019 10:19 pm CLINICAL HISTORY: Chest pain COMPARISON: August 2019 FINDINGS: The lungs appear clear of acute infiltrate. The heart is mildly enlarged IMPRESSION: No acute abnormalities displayed
--- NOTE | 2019-09-13 22:39 | RAD REPORT ---
EXAM DESCRIPTION: RAD - Femur Left - 09/13/2019 9:56 pm CLINICAL HISTORY: Left leg pain FINDINGS: The bones are osteoporotic. No fracture is seen. No bony lesion is displayed.
[2019-09-13 23:02] LABS: Albumin 3.1 g/dL (3.4-5.0); Bilirubin Direct 0.1 mg/dL (0-0.2); Bilirubin Total 0.3 mg/dL (0.2-1.0); Potassium 4.5 mmol/L (3.5-5.1); Protein, Total 7.1 g/dL (6.4-8.2); Troponin (Emerg Dept Use Only) 0.1 ng/mL (0.0-0.045)
[2019-09-13] MEDS ORDERED: NA CHLORIDE 0.9% 250 ML ONE (23:44)
[2019-09-13] MEDS ORDERED: CEFTRIAXONE/SWI 1gm 1 GM/10 ML SYR ONE (23:44)
[2019-09-14 00:01] LABS: Urine Blood 1+ (NEG); Urine Glucose NEGATIVE (NEG); Urine Protein 1+ (NEG)
--- NOTE | 2019-09-14 00:16 | ER ---
Nurse's Notes [facility] Name: Macrina Mason Age: 73 yrs Sex: Female : 1945 Arrival Date: 09/13/2019 Time: 20:41 Bed 17 Private MD: Diagnosis: Weakness;Urinary tract infection, site not specified;elevated troponin Presentation: 09/12 20:42 Chief complaint: Patient states: I HAVE A BAD UTI AND I HAVE A HEADACHE. Care prior to ls4 arrival: None. Mechanism of Injury: Fall UNKNOWN EMS STATES THAT FAMILY STATES THAT SHE FELL YESTERDAY AND HAS BEEN FALLING FREQUENTLY. Trauma event details: Injury occurred in the [facility], Injury occurred: at home. Injury occurred: September 12, 2019. Activity prior to arrival: None. 20:42 Acuity: EVESN 3 ls4 20:42 Method Of Arrival: EMS: [facility] ls4 20:52 Coronavirus screen: The patient has NOT traveled to a country currently being monitored ls4 by the [facility] within the last 14 days. Proceed with normal triage procedures. Ebola Screen: No symptoms or risks identified at this time. Initial Sepsis Screen: Does the patient meet any 2 criteria? No. Patient's initial sepsis screen is negative. Does the patient have a suspected source of infection? No. Patient's initial sepsis screen is negative. Risk Assessment: Do you want to hurt yourself or someone else? Patient reports no desire to harm self or others. 23:15 Onset of symptoms is unknown. ls4 Triage Assessment: 21:07 General:. Neuro: Reports headache frontal area, since YESTERDAY PER PATIENT. ls4 Cardiovascular: Denies chest pain. Respiratory: Respiratory effort is even, unlabored, Breath sounds are diminished bilaterally. Derm: LEFT KNEE ABRASION. Trauma Activation: Not Applicable Physician: ED Physician; Name: ; Notified At: ; Arrived At: Physician: General Surgeon; Name: ; Notified At: ; Arrived At: Physician: Radiology; Name: ; Notified At: ; Arrived At: Physician: Respiratory; Name: ; Notified At: ; Arrived At: Physician: Lab; Name: ; Notified At: ; Arrived At: Historical: - Allergies: 21:34 No Known Allergies; ls4 - PMHx: 21:34 allergies; Back pain; Bipolar disorder; COPD; DVT; Schizophrenia; UTI; ls4 - Immunization history:: Adult Immunizations up to date. - Social history:: Smoking status: Patient denies any tobacco usage or history of. Patient/guardian denies using alcohol, street drugs, IV drugs, caffeine. Screenin:36 Abuse screen: Denies threats or abuse. Denies injuries from another. Nutritional ls4 screening: No deficits noted. Tuberculosis screening: No symptoms or risk factors identified. Fall Risk Total Sandoval Fall Scale indicates High Risk Score (45 or more points). Fall prevention measures have been instituted. Side Rails Up X 2 Placed Close to Nursing Station Frequent Obs/Assessments Occuring Family Present and informed to notify staff if the need to leave the bedside As available patient and family educated on Fall Prevention Program and Strategies. Assessment: 20:42 General: Appears obese, unkempt, Behavior is calm, cooperative, appropriate for age. ls4 Pain: Complains of pain in top of head Pain currently is 7 out of 10 on a pain scale. Quality of pain is described as aching, Pain began gradually, Is intermittent. Neuro: No deficits noted. Oriented to person, place, time, situation, Scale Reclamation Tender are equal bilaterally Moves all extremities. Gait is unsteady, Speech is normal, Facial symmetry appears normal, Pupils are PERRLA, Cardiovascular: Denies chest pain. Respiratory: Respiratory effort is even, unlabored, Respiratory pattern is regular, Breath sounds are clear bilaterally. GI: Abdomen is non-distended, obese, Bowel sounds present X 4 quads. : Reports burning with urination, pain in suprapubic area urinary frequency. Musculoskeletal: Circulation, motion, and sensation intact. Capillary refill < 3 seconds, Range of motion: intact in all extremities, Swelling absent Reports. 20:42 Derm: Decubitus located on sacrum NONBLANCHABLE REDNESS TO BUTTOCKS AND SACRAL AREA. PT ls4 TURNED AND REPOSITIONED. PERICARE DONE. 23:00 Reassessment: Patient and/or family updated on plan of care and expected duration. Pain ls4 level reassessed. Patient is alert, oriented x 3, equal unlabored respirations, skin warm/dry/pink. PT TURNED AND REPOSITIONED. 09/13 00:00 Reassessment: Patient appears in no apparent distress at this time. Patient and/or ls4 family updated on plan of care and expected duration. Pain level reassessed. Patient is alert, oriented x 3, equal unlabored respirations, skin warm/dry/pink. PT REPOSITIONED AND TURNED. . 02:35 Reassessment: Patient appears in no apparent distress at this time. Patient and/or ls4 family updated on plan of care and expected duration. Pain level reassessed. Patient is alert, oriented x 3, equal unlabored respirations, skin warm/dry/pink. PT REPOSITIONED TO BACK. 04:00 Reassessment: Patient appears in no apparent distress at this time. Patient and/or wh family updated on plan of care and expected duration. Pain level reassessed. Patient is alert, oriented x 3, equal unlabored respirations, skin warm/dry/pink. transferred to room 17. 10:48 Reassessment: Called report to BENTON Esquivel. Information from the SBAR was given, All rb1 questions asked and answered. Vital Signs: 09/12 20:52 BP 165 / 80; Pulse 66; Resp 14; Temp 98.4(O); Pulse Ox 99% on R/A; Weight 108.86 kg; ls4 Height 5 ft. 4 in. (162.56 cm); Pain 7/10; 23:11 BP 179 / 80; Pulse 65; Resp 14; Temp 98; Pulse Ox 99% on R/A; Pain 5/10; ls4 03 02:30 BP 173 / 89; Pulse 70; Resp 14; Pulse Ox 98% on R/A; Pain 3/10; ls4 04:00 BP 155 / 92; Pulse 84; Resp 18; Pulse Ox 99% on R/A; wh 09/12 20:52 Body Mass Index 41.20 (108.86 kg, 162.56 cm) ls4 ED Course: 09/12 20:14 Inserted saline lock: 20 gauge in right antecubital area, using aseptic technique. ls4 Blood collected. 20:14 Initial lab(s) drawn, by ms, sent to lab. Urine collected: Steele catheter specimen, ls4 cloudy, Amount Returned: 400mL EKG done, by ED staff, reviewed by Kameron Phipps MD. Steele cath inserted, using sterile technique, 16 Fr., by ms, balloon inflated, to gravity drainage, urine specimen collected. 20:41 Patient arrived in ED. ds1 20:41 Catrina Hussein RN is Primary Nurse. ls4 20:41 Arm band placed on. ls4 20:43 Kameron Vela PA is PHCP. cp 20:44 Kameron Phipps MD is Attending Physician. cp 20:48 Triage completed. ls4 21:36 Patient has correct armband on for positive identification. Fall risk band placed. Bed ls4 in low position. Call light in reach. Side rails up X 1. Adult w/ patient. teletypesetter monitor on. Pulse ox on. NIBP on. Warm blanket given. 21:36 No provider procedures requiring assistance completed. ls4 21:57 XRAY Pelvis In Process Unspecified. EDMS 21:57 XRAY Femur LEFT In Process Unspecified. EDMS 21:57 XRAY Femur RIGHT In Process Unspecified. EDMS 22:14 CT Traumagram (Head C Spine CAP wo con) In Process Unspecified. EDMS 22:20 XRAY Chest (1 view) In Process Unspecified. EDMS 23:51 Flu Sent. 4 03 00:12 Urine Dipstick--Ancillary (enter results) Sent. ls4 00:15 Kristina Garcia MD is Hospitalizing Provider. cp 04:00 Report received from Priya Law RN. 04:00 Patient admitted, IV remains in place. 09:32 EKG done, by genetic technologist. reviewed by Jesús JURADO. at1 10:50 No provider procedures requiring assistance completed. Patient admitted, IV remains in rb1 place. Administered Medications: 09/12 23:30 Drug: NS 0.9% 250 ml Route: IV; Rate: bolus; Site: right antecubital; [facility] 09/13 00:00 Follow up: IV Status: Completed infusion; IV Intake: 250ml [facility] 09/12 23:48 Drug: Rocephin 1 grams Route: IV; Rate: calculated rate; Site: right antecubital; [facility] 12 00:14 Follow up: Response: No adverse reaction; IV Status: Completed infusion; IV Intake: [id number] 00:24 Drug: NS 0.9% 1000 ml Route: IV; Rate: 75 ml/hr; Site: right antecubital; 4 05:11 Follow up: Response: No adverse reaction; IV Status: Completed infusion; Infusion wh continued upon admission 00:24 Drug: Lovenox 110 mg Route: Sub-Q; Site: right lower abdomen; ls4 01:09 Follow up: Response: No adverse reaction ls4 00:47 Drug: Aspirin Chewable Tablet 324 mg Route: PO; ls4 01:09 Follow up: Response: No adverse reaction ls4 Intake: 00:00 IV: 250ml; Total: 250ml. ls4 00:14 IV: 10ml; Total: 260ml. ls4 Outcome: 00:16 Decision to Hospitalize by Provider. cp 04:00 Admitted to ER Hold. Please see [facility] for further documentation. 04:00 Condition: stable 04:00 Instructed on the need for admit. 10:50 Patient left the ED. rb1 10:50 Admitted to Med/surg accompanied by tech, via stretcher, room 231, with chart, Report rb1 called to BNETON Esquivel Signatures: Dispatcher [employer] EDMT Kalyn Gu ds1 Rafaela Harris, fleet manager/dispatch EKG Tat1 Kameron Vela PA PA cp Barber, Rebecca, RN RN rb1 Michoacano Guerrero Catrina Hussein RN RN ls4 Corrections: (The following items were deleted from the chart) 00:14 00:13 IV Status: Completed infusion ls4 ls4 00:15 03/11 23:59 IV Status: Completed infusion; IV Intake: 10ml ls4 ls4 09/13 02:33 03 22:00 Reassessment: Patient and/or family updated on plan of care and expected ls4 duration. Pain level reassessed. Patient is alert, oriented x 3, equal unlabored respirations, skin warm/dry/pink. ls4 09/13 19:47 11:43 Patient left the ED. rb1 rb1
--- NOTE | 2019-09-14 00:17 | EDPHYS ---
Physician Documentation [facility] Name: Macrina Mason Age: 73 yrs Sex: Female : 1945 Arrival Date: 09/13/2019 Time: 20:41 Bed 17 Private MD: ED Physician Kameron Phipps HPI: 09/12 21:05 This 73 yrs old Female presents to ER via EMS with complaints of Hip Pain, cp Fall Injury. Historical: - Allergies: 21:34 No Known Allergies; ls4 - PMHx: 21:34 allergies; Back pain; Bipolar disorder; COPD; DVT; Schizophrenia; UTI; ls4 - Immunization history:: Adult Immunizations up to date. - Social history:: Smoking status: Patient denies any tobacco usage or history of. Patient/guardian denies using alcohol, street drugs, IV drugs, caffeine. ROS: 21:10 Constitutional: Positive for poor PO intake, Negative for body aches, chills, fever. cp 21:10 Eyes: Negative for injury, pain, redness, and discharge. cp 21:10 ENT: Negative for drainage from ear(s), ear pain, sore throat, difficulty swallowing, difficulty handling secretions. 21:10 Cardiovascular: Negative for chest pain, palpitations. 21:10 Respiratory: Negative for cough, shortness of breath, wheezing. 21:10 Abdomen/GI: Negative for vomiting, diarrhea, constipation, black/tarry stool, rectal bleeding. 21:10 MS/extremity: Positive for pain. 21:10 Neuro: Positive for headache, weakness, Negative for altered mental status. 21:10 All other systems are negative. Exam: 21:20 Constitutional: The patient appears in no acute distress, alert, awake, cp non-diaphoretic, non-toxic, well developed, well nourished, obese. 21:20 Head/Face: Normocephalic, atraumatic. cp 21:20 Eyes: Periorbital structures: appear normal, Pupils: equal, round, and reactive to light and accomodation, Extraocular movements: intact throughout, Conjunctiva: normal, no exudate, no injection, Sclera: no appreciated abnormality, Lids and lashes: appear normal, bilaterally. 21:20 ENT: External ear(s): are unremarkable, Ear canal(s): are normal, clear, TM's: bulging, is not appreciated, bilaterally, dullness, bilaterally, erythema, is not appreciated, bilaterally, Nose: is normal, Mouth: Lips: dry, Oral mucosa: pink and intact, dry, Posterior pharynx: Airway: no evidence of obstruction, patent, erythema, is not appreciated, exudate, is not appreciated. 21:20 Neck: ROM/movement: Meningeal signs: are not present, nuchal rigidity, is not appreciated. 21:20 Chest/axilla: Inspection: normal, Palpation: is normal, no crepitus, no tenderness. 21:20 Cardiovascular: Rate: normal, Rhythm: regular, Pulses: Pulses are 2+ in right radial artery, right dorsalis pedis artery, left radial artery and left dorsalis pedis artery. Edema: is not appreciated, JVD: is not appreciated. 21:20 Respiratory: the patient does not display signs of respiratory distress, Respirations: normal, no use of accessory muscles, no retractions, labored breathing, is not present, Breath sounds: are clear throughout, no decreased breath sounds, no stridor, no wheezing. 21:20 Abdomen/GI: Inspection: abdomen appears normal, Bowel sounds: active, all quadrants, Palpation: soft, in all quadrants, moderate abdominal tenderness, in all quadrants. 21:20 Musculoskeletal/extremity: Extremities: grossly normal except: noted in the left knee: abrasion, pain. 21:20 Neuro: Orientation: to person, place \T\ time. Mentation: is normal, Motor: moves all fours, general weakness without focal deficits, Sensation: is normal. 22:26 ECG was reviewed by the Attending Physician. cp Vital Signs: 20:52 BP 165 / 80; Pulse 66; Resp 14; Temp 98.4(O); Pulse Ox 99% on R/A; Weight 108.86 kg; ls4 Height 5 ft. 4 in. (162.56 cm); Pain 7/10; 23:11 BP 179 / 80; Pulse 65; Resp 14; Temp 98; Pulse Ox 99% on R/A; Pain 5/10; ls4 03/12 02:30 BP 173 / 89; Pulse 70; Resp 14; Pulse Ox 98% on R/A; Pain 3/10; ls4 04:00 BP 155 / 92; Pulse 84; Resp 18; Pulse Ox 99% on R/A; wh 03/11 20:52 Body Mass Index 41.20 (108.86 kg, 162.56 cm) ls4 MDM: 09/12 20:41 Patient medically screened. joelle 20:55 Patient medically screened. 09/13 00:00 Differential diagnosis: metabolic disorder, urosepsis, UTI, multiple trauma, CVA, acute cp OR. 00:15 Data reviewed: vital signs, nurses notes, lab test result(s), EKG, radiologic studies, cp CT scan. 00:15 Test interpretation: by ED physician or midlevel provider: ECG. Counseling: I had a cp detailed discussion with the patient and/or guardian regarding: the historical points, exam findings, and any diagnostic results supporting the discharge/admit diagnosis, lab results. Response to treatment: the patient's symptoms have mildly improved after treatment, and as a result, I will admit patient. 00:20 Physician consultation: Kristina Garcia MD was contacted at 00:15, regarding admission, cp to the telemetry unit. patient's condition. 09/12 20:58 Order name: Basic Metabolic Panel; Complete Time: 00:10 09/13 00:10 Interpretation: Normal except: CL 109; BUN 30; CRE 1.70; GFR 30. 09/12 20:58 Order name: CBC with Diff; Complete Time: 22:55 09/12 22:55 Interpretation: Normal except: RBC 3.34; HGB 10.7; HCT 32.5; PLT 100; EOSINOPHIL % 7.3. 09/12 20:58 Order name: LFT's; Complete Time: 00:10 09/12 20:58 Order name: Magnesium; Complete Time: 00:10 09/12 20:58 Order name: NT PRO-BNP; Complete Time: 00:10 09/12 20:58 Order name: PT-INR; Complete Time: 00:10 09/12 20:58 Order name: Troponin (emerg Dept Use Only); Complete Time: 00:10 09/13 00:11 Interpretation: Abnormal: TROPED 0.10. 09/12 20:58 Order name: Lactate; Complete Time: 22:55 09/12 20:58 Order name: Procalcitonin; Complete Time: 01:08 09/12 20:58 Order name: Blood Culture Adult (2) cp 09/12 20:58 Order name: Urine Microscopic Only; Complete Time: 01:08 09/12 23:08 Order name: Urine Dipstick--Ancillary (enter results) mw2 09/12 23:25 Order name: Flu ls4 09/13 00:04 Order name: Urine Dipstick-Ancillary; Complete Time: 00:10 EDIL 09/13 00:11 Interpretation: Normal except: UBLD 1+; UPROT 1+; U NIT POSITIVE; UESTR 3+. 09/12 20:58 Order name: XRAY Chest (1 view); Complete Time: 22:55 cp 09/12 20:58 Order name: XRAY Pelvis; Complete Time: 22:55 09/12 20:58 Order name: XRAY Femur LEFT; Complete Time: 22:55 09/12 20:58 Order name: XRAY Femur RIGHT; Complete Time: 22:55 09/12 21:30 Order name: CT Traumagram (Head C Spine CAP wo con) 09/13 01:17 Order name: Influenza Screen (A EDIL 09/13 05:50 Order name: CBC with Automated Diff EDIL 09/13 06:01 Order name: Comprehensive Metabolic Panel EDIL 09/13 06:01 Order name: T4 Free EDIL 09/13 06:01 Order name: Thyroid Stimulating Hormone EDIL 09/13 09:02 Order name: Troponin I EDIL 09/12 20:58 Order name: EKG; Complete Time: 20:59 09/12 20:58 Order name: Cardiac monitoring; Complete Time: 21:41 09/12 20:58 Order name: EKG - Nurse/Tech; Complete Time: 23:14 09/12 20:58 Order name: IV Saline Lock; Complete Time: 23:15 09/12 20:58 Order name: Labs collected and sent; Complete Time: 23:15 09/12 20:58 Order name: O2 Per Protocol; Complete Time: 21:41 09/12 20:58 Order name: O2 Sat Monitoring; Complete Time: 21:41 09/12 20:58 Order name: Steele; Complete Time: 23:14 09/12 20:58 Order name: Urine Dipstick-Ancillary (obtain specimen); Complete Time: 23:26 09/13 09:21 Order name: EKG; Complete Time: 09:21 [facility] EC/11 22:26 Rate is 60 beats/min. Rhythm is regular. FL interval is normal. QRS interval is cp prolonged at 112 msec. QT interval is normal. Interpreted by me. Reviewed by me. Administered Medications: 23:30 Drug: NS 0.9% 250 ml Route: IV; Rate: bolus; Site: right antecubital; 4 09/13 00:00 Follow up: IV Status: Completed infusion; IV Intake: 250ml [facility] 09/12 23:48 Drug: Rocephin 1 grams Route: IV; Rate: calculated rate; Site: right antecubital; 4 09/13 00:14 Follow up: Response: No adverse reaction; IV Status: Completed infusion; IV Intake: [id number] 00:24 Drug: NS 0.9% 1000 ml Route: IV; Rate: 75 ml/hr; Site: right antecubital; 4 05:11 Follow up: Response: No adverse reaction; IV Status: Completed infusion; Infusion wh continued upon admission 00:24 Drug: Lovenox 110 mg Route: Sub-Q; Site: right lower abdomen; 4 01:09 Follow up: Response: No adverse reaction [facility] 00:47 Drug: Aspirin Chewable Tablet 324 mg Route: PO; 4 01:09 Follow up: Response: No adverse reaction [facility] Disposition: 00:30 Chart complete. cp 11:59 Co-signature as Attending Physician, Kameron Phipps MD I agree with the assessment and joelle plan of care. Disposition: 09/14/19 00:16 Hospitalization ordered by Kristina Garcia for Inpatient Admission. Preliminary diagnosis are Weakness, Urinary tract infection, site not specified, elevated troponin. - Bed requested for Telemetry/MedSurg (Inpatient). - Status is Inpatient Admission. rb1 - Condition is Stable. - Problem is new. - Symptoms are unchanged. Signatures: Dispatcher [employer] Magui Villalpando RN Kameron Cisneros MD MD cha Page, Corey, PA PA cp Barber, Rebecca, BENTON RN rb1 Catrina Hussein RN RN 4 Michoacano Guerrero Corrections: (The following items were deleted from the chart) 09/12 21:34 20:58 Head C Spine MPR Wo Con+CT.RAD.BRZ ordered. EDIL EDMS 09/13 02:06 00:16 Hospitalization Ordered by Kristina Garcia MD for Inpatient Admission. Preliminary dw diagnosis is Weakness; Urinary tract infection, site not specified; elevated troponin. Bed requested for Telemetry/MedSurg (Inpatient). Status is Inpatient Admission. Condition is Stable. Problem is new. Symptoms are unchanged. cp 09:41 02:06 09/14/2019 00:16 Hospitalization Ordered by Kristina Garcia MD for Inpatient dw Admission. Preliminary diagnosis is Weakness; Urinary tract infection, site not specified; elevated troponin. Bed requested for [facility] ER HOLD. Status is Inpatient Admission. Condition is Stable. Problem is new. Symptoms are unchanged. dw 11:43 09:41 09/14/2019 00:16 Hospitalization Ordered by Kristina Garcia MD for Inpatient rb1 Admission. Preliminary diagnosis is Weakness; Urinary tract infection, site not specified; elevated troponin. Bed requested for Telemetry/MedSurg (Inpatient). Status is Inpatient Admission. Condition is Stable. Problem is new. Symptoms are unchanged. dw
[2019-09-14 00:28] LABS: Urine Bacteria >50 /HPF (<20); Urine RBC <5 /HPF (NONE SEEN)
[2019-09-14] MEDS ORDERED: ENOXAPARIN 100 MG/ML SYR SQ ONE (00:37)
[2019-09-14] MEDS ORDERED: ENOXAPARIN 30 MG/0.3 ML SQ ONE (00:38)
[2019-09-14] MEDS ORDERED: NA CHLORIDE 0.9% 1,000 ML ONE (00:40)
[2019-09-14] MEDS ORDERED: ASPIRIN 81 MG CHEWABLE TABLET ONE (00:40)
[2019-09-14] MEDS ORDERED: MORPHINE 2 MG/ML SYR IV PRN (01:16)
[2019-09-14] MEDS ORDERED: NA CHLORIDE 0.9% 1,000 ML IV SCH (02:00)
[2019-09-14 05:18] VITALS: BMI 41.1
[2019-09-14 05:42] LABS: Absolute Lymphocytes (CBC) 0.7 K/uL (0.7-4.9); Basophils % 0.2 % (0-1.3); Hematocrit 30.2 % (36.0-45.0); Lymphocytes % 9.4 % (15.3-44.8); MPV 9.1 fL (7.6-11.3); RBC Red Blood Cell Count 3.08 M/uL (3.86-4.86)
[2019-09-14 05:59] LABS: Albumin 2.9 g/dL (3.4-5.0); Bilirubin Total 0.3 mg/dL (0.2-1.0); Potassium 4.4 mmol/L (3.5-5.1); Protein, Total 7.1 g/dL (6.4-8.2)
[2019-09-14 06:00] LABS: Thyroid Stimulating Hormone 4.25 uIU/mL (0.360-3.740)
--- NOTE | 2019-09-14 07:01 | P.HP ---
Certification for Inpatient Patient admitted to: Inpatient With expected LOS: >2 Midnights Patient will require the following post-hospital care: None Practitioner: I am a practitioner with admitting privileges, knowledge of patient current condition, hospital course, and medical plan of care. Services: Services provided to patient in accordance with Admission requirements found in Title 42 Section 412.3 of the Code of Federal Regulations Patient History Date of Service: 09/14/19 Reason for admission: Altered mental status; UTIs; generalized weakness; status post fall History of Present Illness: Patient is a 73-year-old female who came into the hospital with generalized weakness and a fall. She has suffer from a urinary tract infection and has been on IV antibiotic therapy. She was there about 3 weeks ago and at that time she was having acute psychosis. She was hitting herself in completely confused. She was sent to a [facility] at [place]. She apparently was released from that facility and has been living with her family. I spoke with the [facility] and they tell me that she did not come back to their facility after discharging from [place]. She is normally ambulatory and interactive. Currently she is not really interacting appropriately. I did try to contact family but there was no family available by phone. At this time patient has had a change in status from her baseline. She will need to be admitted to the hospital for further evaluation. She could be having encephalopathy from her urinary tract infection. Will need to do a neurology consultation as well as MRI of the brain if her mentation does not improve with hydration any antibiotics. X-rays have not revealed an acute fracture. However she is having a lot of pain in the left hip. We may need to review the CT scan. At this time she will be admitted to the hospital as an inpatient. Allergies No Known Allergies Allergy (Verified 07/17/19 19:33) Home Medications: Acetaminophen [Tylenol] 650 mg PO Q6HR PRN MDD 3gm 08/19/19 Aspirin [Aspirin EC 325 MG] 325 mg PO Q6HR PRN 08/19/19 Diclofenac Sodium [Voltaren] 100 gm TP DAILY PRN 08/19/19 Divalproex Sodium [Depakote] 500 mg PO BID 08/19/19 Docusate Sodium 100 mg PO BID PRN 08/19/19 Donepezil HCl [Aricept] 10 mg PO BID 02/15/20 Enema, Fleet Adult [Fleet Enema Adult*] 1 bottle FL DAILY PRN 08/19/19 Flaxseed Oil 1,000 mg PO DAILY 08/19/19 Fluticasone/Vilanterol [Breo Ellipta 200-25 Mcg INH] 1 inh IH DAILY 08/19/19 Folic Acid 0.4 mg PO DAILY 08/19/19 Gabapentin [Neurontin] 800 mg PO TID 08/19/19 Ipratropium/Albuterol Sulfate [Iprat-Albut 0.5-3(2.5) mg/3 ml] 3 ml NEB Q4H PRN 08/19/19 Levothyroxine Sodium 25 mcg PO DAILY 08/19/19 Mag Hydrox/Aluminum Hyd/Simeth [[facility]-Lanta Liquid] 30 ml PO Q4H PRN 08/19/19 Mag Hydroxide 8% [Milk Of Magnesia*] 30 ml PO DAILY PRN 08/19/19 Magnesium Citrate [Citroma*] 1 bottle PO DAILY PRN 08/19/19 Melatonin 5 mg PO BEDTIME PRN PRN 08/19/19 Memantine HCl [Namenda] 10 mg PO BID 08/19/19 Nitrofuran Macro [Macrobid*] 1 cap PO BID 08/19/19 Nystatin 1,000,000 unit TOP BID 08/19/19 Oxycodone HCl 5 mg PO BID 08/19/19 Phenol/Glycerin [Chloraseptic Max Wingina] 2 spray PO Q4H PRN 08/19/19 Sodium Chloride [Saline Nasal Wingina] 2 spray IN BID PRN 08/19/19 Sumatriptan [Imitrex*] 100 mg PO DAILY PRN 08/19/19 guaiFENesin [[facility]-Tussin] 5 ml PO Q6HR PRN 08/19/19 ARIPiprazole [Abilify] 5 mg PO DAILY #30 tab 08/22/19 Duloxetine HCl [Drizalma Sprinkle] 90 mg PO DAILY #60 cap.drRadhaspr 08/22/19 Furosemide [Lasix*] 40 mg PO DAILY #60 tab 08/22/19 Metoprolol Tartrate [Lopressor*] 25 mg PO BID 6AM 6PM #60 tab 08/22/19 Mometasone/Formoterol [Dulera 200 Mcg/5 Mcg Inhaler] 2 puff IH BID #1 inhaler - Past Medical/Surgical History Has patient received pneumonia vaccine in the past: Yes Diabetic: No -: Bipolar disorder -: Schizoaffective disorder -: COPD -: History of DVT-cannot describe further/in neck -: Hypertension -: Hypothyroidism -: Hyperlipidemia -: Dementia -: Chronic pain with neuropathy -: Chronic renal disease -: Complete hysterectomy -: sb knee replacement Psychosocial/ Personal History: [facility] currently at [facility] - Family History Mother Medical History: Heart disease, Lung disease Notes: COPD Father Medical History: Heart disease, Diabetes Notes: quadruple bypass - Social History Smoking Status: Unknown if ever smoked Alcohol use: No CD- Drugs: No Caffeine use: No Place of Residence: Jail Review of Systems is unable to be obtained Physical Examination - Vital Signs Temperature: 98.4 F Blood Pressure: 159/94 Pulse: 82 Respirations: 16 Pulse Ox (%): 99 - Physical Exam General: Alert, In no apparent distress, Demented, Confused HEENT: Atraumatic, PERRLA, Mucous membr. moist/pink, EOMI, Sclerae nonicteric Neck: Supple, 2+ carotid pulse no bruit, No LAD, Without JVD or thyroid abnormality Respiratory: Clear to auscultation bilaterally, Normal air movement Cardiovascular: Regular rate/rhythm, Normal S1 S2, Systolic murmur Gastrointestinal: Normal bowel sounds, Soft and benign, Non-distended, No tenderness Musculoskeletal: No clubbing, No swelling, No tenderness Integumentary: No rashes Neurological: Sensation intact, Cranial nerves 3-12 intact, Normal affect, Abnormal gait, Abnormal speech, Abnormal strength Lymphatics: No axilla or inguinal lymphadenopathy - Studies Laboratory Data (last 24 hrs) 09/13/19 22:00: PT 11.7, INR 0.99 09/13/19 22:00: WBC 5.5, Hgb 10.7 L, Hct 32.5 L, Plt Count 100 L 09/13/19 22:00: Sodium 142, Potassium 4.5, BUN 30 H, Creatinine 1.70 H, Glucose 81, Magnesium 2.0 D, Total Bilirubin 0.3, AST 10 L, ALT 14, Alkaline Phosphatase 134 H Microbiology Data (last 24 hrs): 09/13/19 23:45 Nasopharnyx Influenza Type A Antigen Screen - Final 09/13/19 23:45 Nasopharnyx Influenza Type B Antigen Screen - Final Assessment & Plan - Problems (Diagnosis) (1) Acute encephalopathy Current Visit: Yes Status: Acute (2) Urinary tract infection Current Visit: Yes Status: Acute (3) 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 Aggressive IV hydration 2. IV antibiotic therapy 3. Pain control 4. Resume medication for bipolar disorder and her P he renal disorders 5. Monitor renal function closely 6. Serial troponins 7. Repeat CT of the head or MRI of the brain and for mentation is not improving 8. Neurology consultation 9. GI and DVT prophylaxis Discharge Plan: Jail Plan to discharge in: Greater than 2 days - Advance Directives Does patient have a Living Will: No Does patient have a Durable POA for Healthcare: No - Code Status/Comfort Care Code Status Assessed: Yes Code Status: Full Code Critical Care: No Time Spent Managing PTS Care (In Minutes): 40
[2019-09-14] MEDS ORDERED: CEFTRIAXONE/SWI 1gm 1 GM/10 ML SYR ONE (08:34)
[2019-09-14] MEDS: CEFTRIAXONE/SWI 1gm 1 GM/10 ML SYR IVP SCH ×2 (08:36→20:41)
--- NOTE | 2019-09-14 08:51 | EKG ---
Test Date: 2019-09-13 Test Time: 22:21:54 Retail Brand Ambassador: MATHEUS MEASUREMENT RESULTS: Intervals: Rate: 60 GA: 178 QRSD: 112 QT: 418 QTc: 418 [place]: P: 44 GA: 178 QRS: -13 T: 42 INTERPRETIVE STATEMENTS: Normal sinus rhythm with sinus arrhythmia Minimal voltage criteria for LVH, may be normal variant Cannot rule out Anterior infarct, age undetermined Abnormal ECG Compared to ECG 08/24/2019 00:07:26 Left ventricular hypertrophy now present Left anterior fascicular block no longer present Prolonged QT interval no longer present Myocardial infarct finding still present Electronically Signed On 09-14-19 08:50:25 CDT by Cuba Sotelo
--- NOTE | 2019-09-14 10:01 | RAD REPORT ---
EXAM DESCRIPTION: CT - Head C Spine Cap Wo Con - 09/14/2019 6:27 am ADDENDUM #1 EXAM: CT chest, abdomen, and pelvis without intravenous contrast CLINICAL HISTORY: Fall, general weakness COMPARISON: None Available TECHNIQUE: Multiple helical axial tomographic images were obtained of the chest, abdomen, and pelvis without intravenous contrast. Coronal and sagittal reformatted images were obtained. This exam was performed according to our departmental dose-optimization program, which includes autom ated exposure control, adjustment of the mA and/or kV according to patient size and/or use of iterati ve reconstruction technique. FINDINGS: Chest: Thyroid gland: A 1.8 cm hypodense structure in the left thyroid lobe is present with associated calci fication. Axilla: unremarkable. Aorta: No evidence of aortic aneurysm. Mediastinum: Unremarkable. No adenopathy. Heart: Heart is normal in size. Lungs/airways: There are geographic areas of groundglass opacity in both lungs favoring atelectasis o purvi infiltrates. Airways are patent. Pleural spaces: Trace bilateral pleural effusions are present. No pneumothorax. Osseous: Chronic-appearing fracture deformity of the left humeral head/neck noted. Thoracic spine ost eophytes are present. No acute fracture. Soft tissues: Unremarkable. Abdomen and pelvis: Liver: Homogenous attenuation is demonstrated. Gallbladder/biliary: Gallbladder appears unremarkable. No calcified gallstones. No evidence of biliar y ductal dilatation. Pancreas: Unremarkable. Spleen: Unremarkable. Adrenals: Unremarkable. Kidneys and ureters: No evidence of renal or ureteral stones. No hydronephrosis. There is a 2 cm cyst in the upper pole of the left kidney. Bladder: Unremarkable. Pelvic organs: Post hysterectomy changes are present. Bowel: No evidence of bowel obstruction. No bowel wall thickening. Appendix appears unremarkable. Non specific mild mesenteric haziness noted. Peritoneum: No free air. No significant free fluid. Lymph nodes: Unremarkable. Vasculature: IVC filter is present. Mild aortoiliac atherosclerosis is noted. Soft tissues: Unremarkable. Bones: Degenerative changes of the lumbar spine are present. No acute fracture. IMPRESSION: 1. Areas of geographic groundglass opacity in both lungs likely related to atelectasis r ather than infiltrates. Trace bilateral pleural effusions. 2. No evidence for an acute process within the abdomen or pelvis. 3. Left thyroid lobe cyst versus nodule, nonemergent follow-up ultrasound recommended. 4. Chronic appearing fracture deformity of the left humeral head/neck. Electronically signed by: Jordan Jerez MD 09/13/2019 11:32 PM CDT End of Addendum EXAM DESCRIPTION: Head C Spine Cap Wo Con CLINICAL HISTORY: Fall, general weakness COMPARISON: CT head August 19, 2019 TECHNIQUE: Multiple helical axial tomographic images were obtained of the head and cervical spine wi thout intravenous contrast. Coronal and sagittal reformatted images were obtained. This exam was perf ormed according to our departmental dose-optimization program, which includes automated exposure cont rol, adjustment of the mA and/or kV according to patient size and/or use of iterative reconstruction technique. FINDINGS: Mild generalized brain volume loss is demonstrated. There is mild hypoattenuation in the p eriventricular white matter suggestive of chronic microvascular ischemic changes. There is no acute i ntracranial hemorrhage. No mass. No midline shift. No ventriculomegaly. Bhagat-white matter differentia tion is maintained. Mild right maxillary sinus mucosal thickening is demonstrated. Thickening of the right maxillary sinu s wall again noted which can be seen with chronic sinusitis. Mastoid air cells and middle ear spaces are clear. Orbits and orbital contents are unremarkable. No acute calvarial fracture. No evidence for an acute fracture of the cervical spine. No subluxation. Multilevel facet arthropathy is demonstrated. There is multilevel neural foraminal narrowing. There is a 1.8 cm hypodense in the left thyroid lobe with associated coarse calcification. Small left temporoparietal scalp hematoma is present. IMPRESSION: 1. No acute intracranial process. 2. No evidence for an acute fracture of the cervical spine. 3. 1.8 cm incidental thyroid nodule. Recommend thyroid US. Reference: J Am Leopoldo Radiol. 2015 Aug;12(2 ): 143-50 Electronically signed by: Jordan Jerez MD 09/13/2019 10:53 PM CDT Due to temporary technical issues with the PACS/Fluency reporting system, reports are being signed by the in house radiologist as a courtesy to ensure prompt reporting. The interpreting radiologist is f ully responsible for the content of the report.
--- NOTE | 2019-09-14 11:11 | EKG ---
Test Date: 2019-09-14 Test Time: 09:31:15 Railroad Car Checker: KELLY MEASUREMENT RESULTS: Intervals: Rate: 83 MD: 162 QRSD: 108 QT: 400 QTc: 470 [place]: P: 14 MD: 162 QRS: -37 T: 69 INTERPRETIVE STATEMENTS: Normal sinus rhythm Left axis deviation Moderate voltage criteria for LVH, may be normal variant Cannot rule out Septal infarct, age undetermined Abnormal ECG Compared to ECG 09/13/2019 22:21:54 Left-axis deviation now present Sinus arrhythmia no longer present Myocardial infarct finding still present Electronically Signed On 09-14-19 11:11:17 CDT by Cuba Sotelo
--- NOTE | 2019-09-14 11:33 | P.PN ---
Date of Service: 09/14/19 Patient with history of bipolar and psychotic disorder, recurrent well padded metastatic to from multiple sedative medications, recent urosepsis noted with elevated troponin 1 month ago but no intervention done after which she was discharged to a residential and later to an acute psych facility . She somehow has been at home with family rather than the NH but now presented because she was hitting herself. unclear if she was taking her meds as family no available . She is being managed for UTI but noted routine troponin was noted elevated to 3.6. EKG shows no acute ischemic changes. -I will consult Cardiology now but from history and review of records patient has chronic troponin elevation. -also unclear why it is patient's mental status changes as patient is oriented, complain of gen pain at this point which seems to be typical of her baseline
--- NOTE | 2019-09-14 20:08 | CON ---
Reason For Consultation: Consultation called because of altered mental status. History Of Present Illness: Ms. Mason is a 73-year-old patient who was seen in clinic with markell dorantes, comes into [facility] with generalized weakness, fall, urinary tract infection, and a rec ent hospital admission in [place] with psychotic features. She was discharged from the [facility] facility and came home and sent back to [facility], where she was originally residing and appa rently became more disoriented, confused, not following instructions and was brought in for evaluatio n. At [facility], urinary tract infection was suspected as her urinalysis was very consiste nt with urinary tract infection. Her white blood cell count was normal. Hemoglobin and hematocrit a re essentially stable, but low around 10 and 30. Chemistries show dehydration with increased creatin ine 1.47. She had blood work suggestive of a possible myocardial infarction and she is currently pebbles ng ruled out for that. Her last troponin is 3.76 and a rapid troponin was 0.1 yesterday. Since she fell, she had a trauma series. CT scan from head to toe, which showed no acute findings. She did decker ve ventricular small-vessel ischemic disease without acute ischemic or hemorrhagic findings. Again, no fractures in the bones of the head, neck, chest, arm, or legs. She did say when she fell she bump ed her head, her right shoulder, her elbow, and her right hip and had some pain there, but that is be ing further evaluated. Past Medical History: Moderate dementia likely Alzheimer's type for which she is on Aricept, bipolar disorder, schizoaffective disorder, chronic obstructive pulmonary disease, hypertension, hypothyroid ism, dyslipidemia, peripheral neuropathy, chronic renal insufficiency. Surgical History: Complete hysterectomy, bilateral knee replacement. Social History: Patient lives at home with family. No alcohol, tobacco, or IV drug use exposure. Family History: Heart disease, lung disease, COPD in mother and heart disease, diabetes in father. Medications: At home, Tylenol 650 mg every 6 hours as needed, aspirin 325 mg every 6 hours as needed , Voltaren 100 g topical daily, Depakote 500 mg twice a day, docusate sodium 100 mg twice a day, done pezil 10 mg twice a day as needed, flaxseed oil 1000 mg daily, Breo Ellipta 200/25 mcg inhaled 1 chester y, folic acid 0.4 mg daily, gabapentin 800 mg 3 times daily, ipratropium/albuterol nebulizer every 4 hours as needed, levothyroxine 25 mcg daily, [facility]ita-Lanta liquid 30 mL every 4 hours as needed, milk of magnesia 30 mL daily as needed, Citroma 1 bottle daily as needed, melatonin 5 mg at bedtime, Namenda 10 mg twice daily, Macrobid 1 daily, nystatin 1 million units topically twice daily, oxycodone 5 mg twice daily, Imitrex 100 mg daily as needed, Abilify 5 mg daily, Sunita-Tussin 5 mL every 6 hours as ne eded, duloxetine 90 mg daily, Lasix 40 mg daily, Lopressor 25 mg twice daily, and Dulera 200 mcg/5 mc g inhaler 2 puffs twice daily. Review of Systems: Not reliable. Physical Examination: Vital Signs: Blood pressure 147/67, pulse 81, respiratory rate 16, temperature 98.1, oxygen saturati on 99% on room air. General: Ms. Mason is resting in bed. HEENT: She has mild bruising in the right elbow and no obvious bruising on the right head, some on t he right forearm. Otherwise, she is normocephalic and atraumatic. Sclerae appear anicteric. Oropha rynx is moist. Neck: Supple. Chest: Clear. Abdomen: Soft. Extremities: Show mild edema in the lower extremities. Neurological: She is alert and oriented to person, but not situation, place, time. She does follow simple commands with encouragement, not able to follow complex commands. Cranial nerves show no foca l deficits by observation. Face is symmetric. Sensation responses on the face are symmetric and hea ring appears intact. Motor examination, she does move the arms with encouragement and appears equal. Leg movement appears equal with encouragement. Sensation and responses, sensation appears equal an d symmetric. Reflexes are around 1+. Unable to ambulate at this point. Laboratory Studies: Complete blood count with differential shows white blood cell 7.2, hemoglobin 10 .0, hematocrit 30.2, platelets 100. Chemistries; sodium 141, potassium 4.4, chloride 109, carbon marily xide 26, BUN 20, creatinine 1.47. On admission, creatinine was 1.70. Her liver function studies ess entially unremarkable except for elevated alkaline phosphatase of 131, and she has myocardial infarct ion rule out ongoing. Urinalysis shows positive nitrites, 3+ esterase, greater than 50 bacteria, 1+ total protein, 1+ blood, greater than 50 white blood cells and greater than 50 bacteria. Assessment: Ms. Mason is a 73-year-old patient with urinary tract infection, which has aggravated her chronic dementia from Alzheimer disease. Therefore, she has acute on chronic encephalopathy. Sukhdev rahman did have episodes of psychosis in the past and she has psychiatric diagnoses including schizoaffect luis miguel disorder and bipolar disorder. Plan: 1.Continue aggressive management of urinary tract infection with antibiotics as per primary team inc tash Miles. Continue with hydration. 2.Continue the donepezil and memantine. 3.Continue comorbid condition medications including for hypothyroidism and other medications. 4.She has no evidence of acute ischemic or hemorrhagic stroke on exam or on imaging. However, the a spirin should be continued and folic acid 1 mg daily. 5.Once discharged, she may follow up with Dr. Zuniga in 1 month after her discharge. SHANNON/MIGUEL ÁNGEL Voice ID: [id number] Report ID: [id number]
[2019-09-14] MEDS: DULOXETINE 30 MG CAP PO SCH (20:41)
[2019-09-14] MEDS: ARIPiprazole 5 MG TAB PO SCH (20:41)
[2019-09-14] MEDS: Enoxaparin 120 MG/0.8 ML SYR SQ SCH (20:41)
--- NOTE | 2019-09-15 05:21 | CON ---
Date of Consultation: 09/14/2019 Reason For Consultation: Elevated troponin. History Of Present Illness: Ms. Mason is a 73-year-old [place] woman who came into the hosp ital with weakness, was found to have a urinary tract infection. She was in the hospital recently in August 2019, and had a normal echocardiogram then. She has also a history of hypothyroidism, COPD , chronic diastolic congestive heart failure, seizure disorder, and depression. She has absolutely n o cardiac symptoms. No shortness of breath. No chest pain. Denied PND, orthopnea, pedal edema, pal pitations, or syncope. Weakness was her main complaint. Past Medical History: As stated above. Allergies: SHE HAS NO ALLERGIES. Review of Systems: Negative. Social History: Negative. Family History: Noncontributory. Medications: At home include, Abilify, Synthroid, inhalers, Neurontin, Lasix, Depakote, and metoprol ol. Physical Examination: General: Ms. Mason appears to be very somnolent, very fatigued. Vital Signs: Stable. Heart: She was in sinus rhythm. She was afebrile. HEENT: Negative. Neck: Supple with no bruit, lymphadenopathy, JVD, or thyromegaly. Chest: Clear to auscultation and percussion. Cardiac: Revealed a regular rhythm and rate. No murmurs, gallops, or rubs. Abdomen: Obese. Extremities: Revealed no clubbing, cyanosis. She had trace edema. Diagnostic Data: Her hemoglobin was 10.0. Her troponin was 3.76. Creatinine is 1.47. Chest x-ray was negative. Urinalysis was positive for UTI. EKG was nonspecific. Impression And Plan: Elevated troponin probably secondary to urinary tract infection and possible se psis. This is not an acute coronary syndrome. There are absolutely no cardiac symptoms reported by the patient. Recent echocardiogram was normal. I will treat her UTI. Continue the present regimen for her other problems, which include depression, hypothyroidism, chronic obstructive pulmonary disea se, chronic diastolic congestive heart failure, attention deficit disorder, as well as neuropathy. Sharonda Mason really is not a candidate for coronary intervention at this point. If she develops chest pain, we will change our plan. We will continue to follow her. SU/MIGUEL ÁNGEL Voice ID: [id number] Report ID: [id number]
[2019-09-15 06:15] LABS: Absolute Lymphocytes (CBC) 0.7 K/uL (0.7-4.9); Basophils % 0.5 % (0-1.3); Hematocrit 26.6 % (36.0-45.0); Lymphocytes % 15.5 % (15.3-44.8); MPV 9.2 fL (7.6-11.3); RBC Red Blood Cell Count 2.82 M/uL (3.86-4.86)
[2019-09-15 07:09] LABS: Albumin 2.5 g/dL (3.4-5.0); Bilirubin Total 0.3 mg/dL (0.2-1.0); Potassium 4.1 mmol/L (3.5-5.1); Protein, Total 6.4 g/dL (6.4-8.2)
[2019-09-15 07:19] LABS: Troponin I 3.67 ng/mL (0.0-0.045)
[2019-09-15] MEDS: Enoxaparin 120 MG/0.8 ML SYR SQ SCH (08:19)
[2019-09-15] MEDS: CEFTRIAXONE/SWI 1gm 1 GM/10 ML SYR IVP SCH (08:20)
--- NOTE | 2019-09-15 11:10 | P.PN ---
Subjective Date of Service: 09/15/19 Chief Complaint: Altered mental status; UTIs; generalized weakness; status post fall Subjective: No new changes Physical Examination - Vital Signs Temperature: 97.5 F Blood Pressure: 114/52 Pulse: 84 Respirations: 19 Pulse Ox (%): 95 - Physical Exam General: Alert, In no apparent distress HEENT: Atraumatic, PERRLA, EOMI Neck: Supple, JVD not distended Respiratory: Clear to auscultation bilaterally, Normal air movement Cardiovascular: Regular rate/rhythm, Normal S1 S2 Gastrointestinal: Normal bowel sounds, No tenderness Musculoskeletal: No tenderness Integumentary: No rashes Neurological: Normal speech, Normal tone, Normal affect Lymphatics: No axilla or inguinal lymphadenopathy Assessment & Plan Discharge Plan: Residential - Code Status/Comfort Care Code Status Assessed: No Physician Review Additional Text: #Metabolic encephalopathy-UTIs contributory. Patient with underlining psych disorder. -will treat underlining infection. -Repeat CT brain as mentation remains same. -Neuro on consult #Urinary tract infection- blood pressure relatively low. -UA strongly positive, present urinary tract infection with E coli. -escalate abx to zosyn pending cultures. -follow urine culture. #Depressive disorder-continue medication. # elevated troponin-serial troponin elevated. Evaluated by loom operator, thought to be secondary to acute infection. -will discontinue full dose Lovenox. -follow patient clinically. #Hypothyroidism-continue medication. #H/o COPD- Stable. #Dementia with behavioral disturbance- antipsychotics cautiously due to decreased mentation. -will consider holding med. #GI and DVT prophylaxis Discharge Plan: Residential Plan to discharge in: Greater than 2 days
[2019-09-15] MEDS ORDERED: Meropenem 1000 MG/VIAL IV SCH (12:40)
[2019-09-15] MEDS ORDERED: Meropenem 1,000 MG in NA CHLORIDE 0.9% 100 ML IV SCH (13:00)
--- NOTE | 2019-09-15 13:01 | PN ---
Date of Progress Note: 09/15/2019 Ms. Mason was admitted with UTI, sepsis, elevated troponin. No cardiac symptoms. Her troponin did get higher from her first troponin and I believe it was approximately 4 but yet her EKG showed sinus rhythm, left ventricular hypertrophy. No arrhythmias. Patient continues to deny any chest pain or shortness of breath. She has severe chronic dementia and Alzheimer's. She was seen by Dr. Zuniga yesterday. She is on aspirin. She is on folic acid. No cardiac symptoms reported. No further card iac plans. Recent echo was normal in August 2019. I will sign off her case. If she develops ches t pain or shortness of breath, we will readdress the issue. SU/MIGUEL ÁNGEL Voice ID: [id number] Report ID: [id number]
--- NOTE | 2019-09-15 13:52 | RAD REPORT ---
EXAM DESCRIPTION: CT - Head Brain Wo Cont - 09/15/2019 1:34 pm CLINICAL HISTORY: persistent AMS COMPARISON: Ct Stroke Brain Wo Cont dated 08/19/2019 TECHNIQUE: Axial 5 mm thick images of the head were obtained without IV contrast. All CT scans are performed using dose optimization technique as appropriate and may include automated exposure control or mA/KV adjustment according to patient size. FINDINGS: No intracranial hemorrhage, mass, edema or shift of mid-line structures. No acute cortical based infarction identified. No cortical edema or sulcal effacement. Mild atrophy changes are presen t with ventricles in proportion. White matter chronic ischemic changes are present similar to the com parison study. Arterial tree calcifications are present. Mastoid air cells are clear. Chronic right maxillary sinusitis changes are present. Paranasal sinuses are otherwise unremarkable. No acute bony findings. Patient has normal variant hyperostosis frontalis interna. Minimal stranding is present in the left lateral scalp soft tissues. IMPRESSION: No acute intracranial findings identifiable. The atrophy and chronic ischemic changes ma tch the recent August 19 study. Right maxillary sinus chronic sinusitis.
[2019-09-15] MEDS: PIPER/TAZO/NS 3.375gm 3.375 GM/100 ML BAG IVPB SCH (16:47)
[2019-09-15] MEDS ORDERED: PIPER/TAZO/NS 3.375gm 3.375 GM/100 ML BAG IVPB SCH (17:00)
[2019-09-15] MEDS: DULOXETINE 30 MG CAP PO SCH (20:46)
[2019-09-15] MEDS: ARIPiprazole 5 MG TAB PO SCH (20:46)
[2019-09-16] MEDS: PIPER/TAZO/NS 3.375gm 3.375 GM/100 ML BAG IVPB SCH (01:23)
[2019-09-16] MEDS ORDERED: Meropenem 500 MG VIAL IV SCH (09:00)
[2019-09-16] MEDS: ACETAMINOPHEN 500 MG TAB PO PRN ×2 (09:25→23:03)
[2019-09-16] MEDS: Meropenem 500 MG in NA CHLORIDE 0.9% 100 ML IV SCH ×2 (09:25→17:10)
[2019-09-16 15:25] LABS: Albumin 2.4 g/dL (3.4-5.0); Bilirubin Total 0.2 mg/dL (0.2-1.0); Hematocrit 27.1 % (36.0-45.0); Lymphocytes % 23.5 % (15.3-44.8); MPV 9.4 fL (7.6-11.3); Potassium 4.1 mmol/L (3.5-5.1); Protein, Total 6.3 g/dL (6.4-8.2); RBC Red Blood Cell Count 2.88 M/uL (3.86-4.86)
[2019-09-16 15:40] LABS: Thyroid Stimulating Hormone 5.54 uIU/mL (0.360-3.740)
[2019-09-16] MEDS ORDERED: MORPHINE 2 MG/ML SYR IV ONE ×2 (16:00→18:00)
[2019-09-16 16:04] LABS: Blood Morphology Comment NOT SEEN (NOT SEEN); Platelet Estimate ADEQ; White Blood Cell Scan OK
[2019-09-16] MEDS: PROPRANOLOL HCL 10 MG TAB PO SCH (17:10)
[2019-09-16] MEDS: ONDANSETRON 4 MG/2 ML VIAL IV PRN (17:54)
--- NOTE | 2019-09-16 19:14 | PN ---
Subjective: Currently, patient is lying in bed. She looks comfortable. She is fully alert, but she is not oriented. She is trying to eat her lunch. She has been having diarrhea, and she has 3 bowel movements. She is started on meropenem. She has no nausea, no vomiting, no chest pain, or abdomina l pain. Review of Systems: Otherwise negative. Objective: Vital Signs: Blood pressure is 131/58, respiratory rate 16, pulse 90, temperature 97.8, saturating 98. General: The patient is alert, does not look in any distress. Not very oriented. HEENT: Atraumatic, normocephalic. PERRLA. Oral mucosa is moist. Neck: Supple. No JVD. No carotid bruits. Chest: Clear to auscultation. Good air entry. Heart: Regular rate and rhythm. S1, S2 normal. No gallop or murmur. Abdomen: Soft, nontender. No masses. No hepatosplenomegaly. Obese. Positive bowel sounds. Extremities: No clubbing, no cyanosis, no edema. Neurologic: Deferred. Psychiatric: Normal affect. Laboratory Data: Today, showed CBC pending. Chemistry all pending. Troponin peaked at 4.44 down to 3.67 yesterday. UA was positive and urine culture was positive for ESBL E coli. Assessment And Plan: 1.Metabolic encephalopathy secondary to urosepsis, improved. The patient seems more alert today acc ording to the nurse. Continue IV antibiotic with meropenem. We will consider ID consult to discuss a term of antibiotic with meropenem. Repeat CT of the brain did not show any significant change. Dr Radha Zuniga advised to continue her admission medication and treat her urosepsis aggressively. 2.Urosepsis, better. Patient is on meropenem. Again, we will consider ID consult to decide the ter m of antibiotic. 3.Depression. She is on Abilify 5 mg p.o. at bedtime and Cymbalta 30 mg at bedtime. 4.[id number] myocardial infarction with elevated troponin. Cardiology evaluated the patient. There is no intervention at this point given patient's multiple comorbidities and the fact that she is asymptomatic. They signed off. 5.Hypothyroidism. LTAC TSH, I do not have. Patient is on Synthroid while in the hospital. 6.Diarrhea, new. We will check for Clostridium difficile. 7.Dementia. We will resume patient on memantine and Aricept. 8.Insomnia. We will hold off trazodone as patient being confused lately. 9.Deep vein thrombosis prophylaxis. I will start patient on Lovenox 30 given her renal insufficienc y. 10.Discharge plan will be pending to LTAC when she gets accepted after the weekend. CORRY/MIGUEL ÁNGEL Voice ID: [id number] Report ID: [id number]
[2019-09-16] MEDS: ARIPiprazole 5 MG TAB PO SCH (21:47)
[2019-09-16] MEDS: DULOXETINE 30 MG CAP PO SCH (21:48)
[2019-09-16] MEDS: MEMANTINE HCL 10 MG TABLET PO SCH (21:48)
[2019-09-16] MEDS: DONEPEZIL HCL 5 MG TAB PO SCH (21:48)
[2019-09-17] MEDS: Meropenem 500 MG in NA CHLORIDE 0.9% 100 ML IV SCH ×3 (01:00→16:00)
[2019-09-17] MEDS: PROPRANOLOL HCL 10 MG TAB PO SCH ×2 (05:40→17:03)
[2019-09-17 06:27] LABS: Absolute Lymphocytes (CBC) 1.1 K/uL (0.7-4.9); Basophils % 0.5 % (0-1.3); Hematocrit 27.9 % (36.0-45.0); Lymphocytes % 26.3 % (15.3-44.8); MPV 8.4 fL (7.6-11.3)
[2019-09-17 06:55] LABS: Albumin 2.5 g/dL (3.4-5.0); Bilirubin Total 0.2 mg/dL (0.2-1.0); Potassium 4.1 mmol/L (3.5-5.1); Protein, Total 6.5 g/dL (6.4-8.2)
[2019-09-17] MEDS: MEMANTINE HCL 10 MG TABLET PO SCH ×2 (08:45→20:18)
[2019-09-17] MEDS: ACETAMINOPHEN 500 MG TAB PO PRN ×2 (13:43→18:54)
--- NOTE | 2019-09-17 15:45 | PN ---
Subjective: Currently, patient is lying in bed. She looks comfortable. She has no chest pain, no a bdominal pain. She stated that she is having a lot of diarrhea. In the meantime, no fever, no chill s. According to the nurse, there was no bowel movement overnight. She looks comfortable otherwise i n bed. Objective: Vital Signs: Blood pressure 144/65, respiratory rate 18, pulse 64, temperature 97.4, sat urating 99% on room air. General: Patient is alert, does not look in any distress. HEENT: Atraumatic, normocephalic. PERRLA. Oral mucosa is moist. Neck: Supple. No JVD. No bruits. Chest: Clear to auscultation. Good air entry. No expiratory wheezing. Heart: Regular rate and rhythm. S1, S2 normal. No gallop or murmur. Abdomen: Soft, nontender. No masses. No hepatosplenomegaly. Obese. Positive bowel sounds. Extremities: No clubbing, cyanosis, or edema. No calf tenderness. Psychiatric: She has normal flat affect otherwise. Laboratory Data: Labs today showed CBC with white blood cells , hemoglobin 9.2, platelets 139. Chemistry within normal except for GFR of 43. Assessment/plan: 1.Metabolic encephalopathy secondary to urosepsis, improved. It seems the patient is fully alert at this point. Continue IV antibiotic with meropenem. ID consult requested to discuss the term of ant ibiotic. CT of the brain twice did not show any significant change. Dr. Zuniga advised to continu e aggressive treatment for sepsis, hoping that will help to preserve her metabolic encephalopathy, wh ich seems much better now. 2.Urosepsis, much better. Again, patient on meropenem. She has ESBL. ID consult requested to deci de the term of antibiotic and . 3.Diarrhea, new since yesterday. Clostridium difficile ordered, but is still pending. 4.Non-ST elevation myocardial infarction with elevated troponin. Cardiology evaluated the patient. Given her multiple comorbidities, it seems like no intervention, they signed off. 5.Depression. Patient on Abilify as well as Cymbalta. 6.Dementia. I restarted her medication yesterday with Aricept and memantine. 7.Insomnia. Trazodone on hold for now given patient's confusion recently. 8.Deep vein thrombosis prophylaxis, on Lovenox 30 given her renal insufficiency. 9.Discharge plan pending to LTAC after we get patient to get accepted hopefully in a.m. if patient h as no Clostridium difficile and if accepted at LTAC, she can go home. CORRY/MIGUEL ÁNGEL Voice ID: [id number] Report ID: [id number]
[2019-09-17] MEDS: DONEPEZIL HCL 5 MG TAB PO SCH (20:18)
[2019-09-17] MEDS: DULOXETINE 30 MG CAP PO SCH (20:18)
[2019-09-17] MEDS: ARIPiprazole 5 MG TAB PO SCH (20:18)
[2019-09-18] MEDS: Meropenem 500 MG in NA CHLORIDE 0.9% 100 ML IV SCH ×3 (00:14→17:11)
[2019-09-18] MEDS: ACETAMINOPHEN 500 MG TAB PO PRN ×3 (01:00→20:03)
[2019-09-18] MEDS: PROPRANOLOL HCL 10 MG TAB PO SCH ×2 (05:05→17:11)
[2019-09-18] MEDS: MEMANTINE HCL 10 MG TABLET PO SCH ×2 (09:02→20:03)
[2019-09-18] MEDS: ONDANSETRON 4 MG/2 ML VIAL IV PRN ×2 (15:39→23:06)
--- NOTE | 2019-09-18 16:38 | P.PN ---
Subjective Date of Service: 09/18/19 Chief Complaint: Altered mental status; UTIs; generalized weakness; status post fall Subjective: Improving This is a 73-year-old female that was admitted for urosepsis. Doing much better since she has been on antibiotics and hydrated. Patient is able to eat and drink. Diarrhea has decreased. C. diff antigen was positive but toxin negative. Unlikely that patient has Clostridium difficile. May be secondary to the antibiotics that she is on currently. All renal function has improved of the last 24 hr. Review of Systems General: Unremarkable Eyes: Unremarkable ENT: Unremarkable Respiratory: Unremarkable Cardiovascular: Unremarkable Musculoskeletal: Unremarkable Integumentary: Unremarkable Neurological: Unremarkable Lymphatics: Unremarkable Physical Examination - Vital Signs Temperature: 97.5 F Blood Pressure: 137/60 Pulse: 78 Respirations: 18 Pulse Ox (%): 99 - Physical Exam General: Alert, In no apparent distress, Oriented x3 HEENT: Mucous membr. moist/pink, EOMI Neck: Supple, JVD not distended, No Thyromegaly Respiratory: Clear to auscultation bilaterally, Normal air movement Cardiovascular: No edema, Normal pulses, Regular rate/rhythm, No gallops, No rubs, No murmurs Capillary refill: <2 Seconds Gastrointestinal: Normal bowel sounds, Soft and benign, Non-distended, No ascites, No tenderness, No masses, No rebound, No guarding Musculoskeletal: No clubbing, No swelling, No contractures, No erythema, No tenderness, No warmth Integumentary: No rashes, No breakdown, No significant lesion, No tenderness/ swelling, No erythema, No warmth, No cyanosis Neurological: Normal speech, Normal strength at 5/5 x4 extr, Normal tone, Sensation intact, Cranial nerves 3-12 intact, Normal reflexes 2+, Normal affect Lymphatics: No axilla or inguinal lymphadenopathy Assessment & Plan - Problems (Diagnosis) (1) Acute encephalopathy Current Visit: Yes Status: Acute (2) Urinary tract infection Current Visit: Yes Status: Acute Qualifiers: Urinary tract infection type: acute cystitis Hematuria presence: without hematuria Qualified Code(s): N30.00 - Acute cystitis without hematuria (3) Bacteremia due to Escherichia coli Current Visit: No Status: Acute (4) COPD (chronic obstructive pulmonary disease) Current Visit: No Status: Chronic Qualifiers: COPD type: chronic bronchitis Chronic bronchitis type: simple Qualified Code(s): J41.0 - Simple chronic bronchitis (5) Hypothyroidism Onset Date: 10/22/14 Current Visit: No Status: Chronic Qualifiers: 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 Qualified Code(s): E03.8 - Other specified hypothyroidism; E06.3 - Autoimmune thyroiditis (6) Hypoxia Onset Date: 12/10/14 Current Visit: No Status: Acute (7) Dementia Onset Date: 10/22/14 Current Visit: No Status: Chronic Qualifiers: Dementia type: Alzheimer's disease Alzheimer's disease onset: unspecified onset Dementia behavioral disturbance: without behavioral disturbance Qualified Code(s): G30.9 - Alzheimer's disease, unspecified; F02.80 - Dementia in other diseases classified elsewhere without behavioral disturbance (8) ESBL (extended spectrum beta-lactamase) producing bacteria infection Current Visit: Yes Status: Acute (9) CKD (chronic kidney disease) stage 3, GFR 30-59 ml/min Current Visit: Yes Status: Chronic (10) AMBAR (acute kidney injury) Current Visit: Yes Status: Acute Discharge Plan: LTAC Plan to discharge in: 24 Hours Physician Review Additional Text: 1. Metabolic encephalopathy secondary to urosepsis, improved. It seems the patient is fully alert at this point. Continue IV antibiotic with meropenem. ID consult requested to discuss the term of antibiotic. CT of the brain twice did not show any significant change. Dr. Zuniga advised to continue aggressive treatment for sepsis, hoping that will help to preserve her metabolic encephalopathy, which seems much better now. 2.Urosepsis, much better. Again, patient on meropenem. She has ESBL. ID consult requested to decide the term of antibiotic. 3.Diarrhea, new since yesterday. Clostridium difficile Ag + but Toxin (-). Unlikely that patient has c-diff at this time. 4.Non-ST elevation myocardial infarction with elevated troponin. Cardiology evaluated the patient. Given her multiple comorbidities, it seems like no intervention, they signed off. 5.Depression. Patient on Abilify as well as Cymbalta. 6.Dementia. Medications restarted yesterday with Aricept and memantine. 7.Insomnia. Trazodone on hold for now given patient's confusion recently. 8.Deep vein thrombosis prophylaxis, on Lovenox 30 given her renal insufficiency. 9.Discharge plan pending to LTAC after we get patient to get accepted hopefully in a.m. Critical Care: No Time Spent Managing Pts Care (In Minutes): 35
[2019-09-18] MEDS: DONEPEZIL HCL 5 MG TAB PO SCH (20:03)
[2019-09-18] MEDS: DULOXETINE 30 MG CAP PO SCH (20:03)
[2019-09-18] MEDS: ARIPiprazole 5 MG TAB PO SCH (20:03)
[2019-09-18] MEDS ORDERED: LORAZEPAM 1 MG TABLET PO PRN (20:51)
[2019-09-18] MEDS ORDERED: HYDROCODONE/APAP 5/325 MG TAB PO ONE (22:43)
[2019-09-19] MEDS: Meropenem 500 MG in NA CHLORIDE 0.9% 100 ML IV SCH ×3 (00:02→17:21)
[2019-09-19] MEDS: PROPRANOLOL HCL 10 MG TAB PO SCH ×2 (05:15→17:20)
[2019-09-19] MEDS: MEMANTINE HCL 10 MG TABLET PO SCH ×2 (08:04→20:29)
--- NOTE | 2019-09-19 08:23 | P.PN ---
Subjective Date of Service: 09/19/19 Primary Care Provider: unknown Chief Complaint: Altered mental status; UTIs; generalized weakness; status post fall Subjective: Doing well Physical Examination - Vital Signs Temperature: 97 F Blood Pressure: 148/71 Pulse: 67 Respirations: 16 Pulse Ox (%): 99 - Physical Exam General: Alert, Cooperative HEENT: Atraumatic Neck: Supple Respiratory: Clear to auscultation bilaterally, Normal air movement Cardiovascular: Normal pulses, Regular rate/rhythm Gastrointestinal: Normal bowel sounds, Soft and benign, Non-distended Neurological: Normal speech, Normal strength at 5/5 x4 extr, Normal tone - Studies Microbiology Data (last 24 hrs): 09/13/19 22:00 Blood - Blood Aerobic Blood Culture - Final Escherichia Coli Esbl 09/13/19 22:00 Blood - Blood Blood Culture Gram Stain - Final 09/13/19 22:00 Blood - Blood Anaerobic Blood Culture - Final No growth in 5 days. Medications List Reviewed: Yes Assessment & Plan Discharge Plan: LTAC Plan to discharge in: 24 Hours Physician Review Additional Text: Impression: Metabolic encephalopathy with sepsis related to UTI and bacteremia, blood/urine culture positive for E coli ESBL Acute on chronic renal disease stage 3 Diarrhea Elevated troponin related to sepsis Depression/schizophrenia Dementia Insomnia Anemia of chronic disease Plan: Metabolic encephalopathy with sepsis related to UTI and bacteremia, blood/urine culture positive for E coli ESBL: Continue IV antibiotic therapy-meropenem. Patient will need 2 week course of antibiotic therapy. Awaiting approval for long-term acute care facility placement. Anticipate approval today. If not approved patient will require skilled placement for continued antibiotic therapy. Acute on chronic renal disease stage III: This has improved. Overall stable. Encourage oral intake. Diarrhea: Improved. Will provide probiotic. C diff negative. Elevated troponin related to sepsis: Reviewed notes from cardiology. Cardiology felt this was not related to CAD. This was likely related to sepsis. Depression/schizophrenia: Home medications reviewed and restarted. Dementia: Continue home medication Insomnia: Continue home medication Anemia of chronic disease: Overall stable. Monitor closely. Time Spent Managing Pts Care (In Minutes): 55
[2019-09-19] MEDS ORDERED: HOME MED 1 EA UNK (Duloxetine Hcl [Cymbalta] 1 TAB) PO SCH (09:00)
[2019-09-19] MEDS: DULOXETINE 30 MG CAP PO SCH (09:23)
[2019-09-19] MEDS: DIVALPROEX DR 500MG TAB PO SCH ×2 (09:23→20:30)
[2019-09-19] MEDS: FERROUS SULFATE 325 MG TAB PO SCH (09:23)
[2019-09-19] MEDS: LACTOBACILLUS/ACIDOPHILUS TAB PO SCH ×3 (09:24→20:29)
[2019-09-19] MEDS: CYANOCOBALAMIN 1,000 MCG TAB PO SCH (09:24)
[2019-09-19] MEDS: OLANZapine 2.5 MG TAB PO SCH ×2 (09:32→20:30)
--- NOTE | 2019-09-19 10:31 | EKG ---
Test Date: 2019-09-16 Test Time: 18:08:40 Gravel Weigher: MOSHE MEASUREMENT RESULTS: Intervals: Rate: 113 FL: 176 QRSD: 110 QT: 386 QTc: 529 [place]: P: -2 FL: 176 QRS: -48 T: 178 INTERPRETIVE STATEMENTS: Sinus tachycardia Left anterior fascicular block Septal infarct, age undetermined T wave abnormality, consider inferior ischemia T wave abnormality, consider anterolateral ischemia Abnormal ECG Compared to ECG 09/14/2019 09:31:15 Left anterior fascicular block now present T-wave abnormality now present Possible ischemia now present Sinus rhythm no longer present Left-axis deviation no longer present Left ventricular hypertrophy no longer present Myocardial infarct finding still present Electronically Signed On 09-19-19 10:29:19 CDT by Cuba Sotelo
--- NOTE | 2019-09-19 17:14 | CON ---
History Of Present Illness: This is a 73-year-old female. I was consulted for urinary tract infecti on secondary to ESBL and bacteremia secondary to ESBL, currently being treated with meropenem. Patie nt came in with altered mental status, generalized weakness, urinary tract infection. Patient evangelina corbett being treated with meropenem. Feeling much better today. She has been having recurrent urinary tract infection. No other complaints except lower abdominal discomfort. Past Medical History: Bipolar disorder, schizoaffective disorder, COPD, history of DVT, hypertension , hypothyroidism, hyperlipidemia, dementia, chronic pain and neuropathy, chronic renal failure, compl ete hysterectomy, bilateral knee replacement. Social History: Nonsmoker, nondrinker. [facility]. Current Medications: Include meropenem. See MAR for other medications. Allergies: NO KNOWN DRUG ALLERGIES. Review of Systems: A 10-point review was performed. Physical Examination: General: This is a 73-year-old female, lying in bed, not in any acute distress. Vital Signs: Temperature 96.8, pulse 78, respirations 16, blood pressure 148/71. HEENT: Unremarkable. Neck: Supple. Lungs: Clear to auscultation. Heart: S1, S2. Regular. Abdomen: Soft, nontender. Bowel sounds present. Extremities: No edema. Laboratory Data: WBC 4.2, hemoglobin 9.2, platelets 139. Chemistry shows sodium 142, potassium 4.1, chloride 110, bicarb 26, BUN 28, creatinine 1.23, glucose 92, albumin is 2.5. Procalcitonin 0.28. Head CT showed no intracranial hemorrhage, mass, edema. No acute bony finding. Chest x-ray from shows no acute abnormalities. Assessment And Plan: Recurrent urinary tract infection, currently being treated for Escherichia coli extended spectrum beta-lactamase and bacteremia secondary to Escherichia coli extended spectrum beta -lactamase. Total duration of treatment 2 weeks. Repeat cultures. We will continue antibiotic and supportive care with meropenem. Consider transferring to long-term acute care. We will follow the p atient closely. Thank you Dr. Gutierres for consult. NF/MODL Voice ID: [id number] Report ID: [id number]
[2019-09-19] MEDS: ENOXAPARIN 30 MG/0.3 ML SQ SCH (17:21)
[2019-09-19] MEDS: DONEPEZIL HCL 5 MG TAB PO SCH (20:29)
[2019-09-19] MEDS: ARIPiprazole 5 MG TAB PO SCH (20:29)
[2019-09-19] MEDS: TRAZODONE 50 MG TABLET PO SCH (20:29)
[2019-09-20] MEDS: Meropenem 500 MG in NA CHLORIDE 0.9% 100 ML IV SCH ×3 (01:22→16:23)
[2019-09-20] MEDS: PROPRANOLOL HCL 10 MG TAB PO SCH ×2 (05:01→17:07)
[2019-09-20] MEDS: FERROUS SULFATE 325 MG TAB PO SCH (09:14)
[2019-09-20] MEDS: OLANZapine 2.5 MG TAB PO SCH ×2 (09:14→22:09)
[2019-09-20] MEDS: CYANOCOBALAMIN 1,000 MCG TAB PO SCH (09:14)
[2019-09-20] MEDS: DIVALPROEX DR 500MG TAB PO SCH ×2 (09:14→22:08)
[2019-09-20] MEDS: LACTOBACILLUS/ACIDOPHILUS TAB PO SCH ×3 (09:14→22:08)
[2019-09-20] MEDS: MEMANTINE HCL 10 MG TABLET PO SCH ×2 (09:14→22:09)
[2019-09-20] MEDS: DULOXETINE 30 MG CAP PO SCH (09:14)
[2019-09-20] MEDS: ACETAMINOPHEN 500 MG TAB PO PRN (10:04)
[2019-09-20] MEDS: ONDANSETRON 4 MG/2 ML VIAL IV PRN (10:36)
--- NOTE | 2019-09-20 14:07 | P.PN ---
Subjective Date of Service: 09/20/19 Primary Care Provider: unknown Chief Complaint: Altered mental status; UTIs; generalized weakness; status post fall Subjective: Doing well Physical Examination - Vital Signs Temperature: 97.1 F Blood Pressure: 103/52 Pulse: 73 Respirations: 18 Pulse Ox (%): 99 - Physical Exam General: Alert, In no apparent distress, Oriented x3 HEENT: Atraumatic Neck: Supple Respiratory: Clear to auscultation bilaterally, Normal air movement Cardiovascular: Normal pulses, Regular rate/rhythm Neurological: Normal speech, Normal strength at 5/5 x4 extr, Normal tone - Studies Medications List Reviewed: Yes Assessment & Plan Discharge Plan: Other (alf facility) Plan to discharge in: 24 Hours Physician Review Additional Text: Impression: Metabolic encephalopathy with sepsis related to UTI and bacteremia, blood/urine culture positive for E coli ESBL Acute on chronic renal disease stage 3 Diarrhea Elevated troponin related to sepsis Depression/schizophrenia Dementia Insomnia Anemia of chronic disease Plan: Metabolic encephalopathy with sepsis related to UTI and bacteremia, blood/urine culture positive for E coli ESBL: Continue IV antibiotic therapy-meropenem. Patient will need 2 week course of antibiotic therapy. Patient was denied going to a long-term acute care facility. Therefore patient being evaluated for skilled placement. Hopefully the patient will be approved. Patient will need PICC line prior to discharge. Acute on chronic renal disease stage III: This has improved. Overall stable. Encourage oral intake. Diarrhea: Improved. Will provide probiotic. C diff negative. Elevated troponin related to sepsis: Reviewed notes from cardiology. Cardiology felt this was not related to CAD. This was likely related to sepsis. Depression/schizophrenia: Home medications reviewed and restarted. Dementia: Continue home medication Insomnia: Continue home medication Anemia of chronic disease: Overall stable. Monitor closely. Time Spent Managing Pts Care (In Minutes): 55
--- NOTE | 2019-09-20 16:12 | PN ---
Subjective: Patient lying in bed. No new complaints. Objective: Vital Signs: Temperature 97, pulse 73, respirations 16, blood pressure 103/52. Lungs: Basal crackles. Heart: S1, S2. Regular. Abdomen: Soft. Bowel sounds present. Extremity: Trace edema. Laboratory Data: Shows WBC 4.2, hemoglobin 9.2, platelets are 139. Chemistry shows sodium 142, pota ssium 4.1, chloride 110, bicarb 26, BUN 28, creatinine 1.2, glucose is 92. Albumin is 2.5. Micro da ta, ESBL in urine and blood, E coli from 09/12. Yesterday, blood cultures are pending. We will follow patient closely. Patient now has pancytopenia with WBC down to 4.2, hemoglobin 9.2, a nd platelets are 139. Continue current treatment. We will follow patient closely. NF/MODL Voice ID: [id number] Report ID: [id number]
[2019-09-20] MEDS: ENOXAPARIN 30 MG/0.3 ML SQ SCH (16:23)
[2019-09-20] MEDS ORDERED: PROPRANOLOL HCL 10 MG TAB PO SCH (17:09)
[2019-09-20] MEDS ORDERED: NA CHLORIDE 0.9% 500 ML IV ONE (17:29)
[2019-09-20 19:26] VITALS: O2SAT 97
[2019-09-20] MEDS: TRAZODONE 50 MG TABLET PO SCH (22:09)
[2019-09-20] MEDS: DONEPEZIL HCL 5 MG TAB PO SCH (22:09)
[2019-09-20] MEDS: ARIPiprazole 5 MG TAB PO SCH (22:11)
[2019-09-21] MEDS: Meropenem 500 MG in NA CHLORIDE 0.9% 100 ML IV SCH ×3 (00:58→18:08)
[2019-09-21] MEDS: ONDANSETRON 4 MG/2 ML VIAL IV PRN ×2 (00:59→15:29)
[2019-09-21] MEDS: ACETAMINOPHEN 500 MG TAB PO PRN ×2 (05:15→18:59)
[2019-09-21] MEDS: FERROUS SULFATE 325 MG TAB PO SCH (09:47)
[2019-09-21] MEDS: CYANOCOBALAMIN 1,000 MCG TAB PO SCH (09:48)
[2019-09-21] MEDS: DULOXETINE 30 MG CAP PO SCH (09:48)
[2019-09-21] MEDS: OLANZapine 2.5 MG TAB PO SCH (09:48)
[2019-09-21] MEDS: DIVALPROEX DR 500MG TAB PO SCH (09:48)
[2019-09-21] MEDS: LACTOBACILLUS/ACIDOPHILUS TAB PO SCH ×2 (09:49→13:49)
[2019-09-21] MEDS: MEMANTINE HCL 10 MG TABLET PO SCH (09:49)
--- NOTE | 2019-09-21 11:56 | RAD REPORT ---
EXAM DESCRIPTION: RAD - Chest Single View - 09/21/2019 1:59 am CLINICAL HISTORY: PICC placement COMPARISON: None. TECHNIQUE: XR CHEST 1 VIEW 09/21/2019 12:44 AM CDT FINDINGS: Cardiac silhouette is normal in size. Lungs are clear without consolidation, atelectasis, mass or edema. There is no pleural effusion. There is no pneumothorax. There are no acute osseous fin dings. Right PICC line tip is in the upper SVC. IMPRESSION: Clear lungs. Electronically signed by: Ranjith Velasquez MD 09/21/2019 1:15 AM CDT Due to temporary technical issues with the PACS/Fluency reporting system, reports are being signed by the in house radiologist as a courtesy to ensure prompt reporting. The interpreting radiologist is f ully responsible for the content of the report.
[2019-09-21 12:58] VITALS: TEMP 97
[2019-09-21] MEDS: NYSTATIN 500,000 UNIT/5 ML UDC PO SCH ×2 (13:49→18:08)
--- NOTE | 2019-09-21 14:51 | P.PN ---
Subjective Date of Service: 09/21/19 Primary Care Provider: unknown Chief Complaint: Altered mental status; UTIs; generalized weakness; status post fall Subjective: Improving, Doing well Physical Examination - Vital Signs Temperature: 97 F Blood Pressure: 131/58 Pulse: 85 Respirations: 18 Pulse Ox (%): 99 - Physical Exam General: Alert, In no apparent distress, Oriented x3 HEENT: Atraumatic Neck: Supple Respiratory: Clear to auscultation bilaterally, Normal air movement Cardiovascular: Normal pulses, Regular rate/rhythm Gastrointestinal: Normal bowel sounds, Soft and benign, Non-distended Musculoskeletal: No tenderness, No warmth Integumentary: No erythema, No warmth, No cyanosis Neurological: Normal speech, Normal strength at 5/5 x4 extr, Normal tone, Normal affect - Studies Medications List Reviewed: Yes Assessment & Plan Discharge Plan: Other (SNF) Plan to discharge in: 24 Hours Physician Review Additional Text: Impression: Metabolic encephalopathy with sepsis related to UTI and bacteremia, blood/urine culture positive for E coli ESBL C dif positive with chronic diarrhea: Acute on chronic renal disease stage 3 Diarrhea Elevated troponin related to sepsis Depression/schizophrenia Dementia Insomnia Anemia of chronic disease Plan: Metabolic encephalopathy with sepsis related to UTI and bacteremia, blood/urine culture positive for E coli ESBL: Continue IV antibiotic therapy-meropenem. Patient will need 2 week course of antibiotic therapy. Patient now with PICC line. Await approval for snf. C dif positive with chronic diarrhea: Will start Oral vancomycin. Acute on chronic renal disease stage III: This has improved. Overall stable. Encourage oral intake. Elevated troponin related to sepsis: Reviewed notes from cardiology. Cardiology felt this was not related to CAD. This was likely related to sepsis. Depression/schizophrenia: Home medications reviewed and restarted. Dementia: Continue home medication Insomnia: Continue home medication Anemia of chronic disease: Overall stable. Monitor closely. Time Spent Managing Pts Care (In Minutes): 55
--- NOTE | 2019-09-21 14:55 | P.DS ---
Admission Date: 09/14/19 Discharge Date: 09/21/19 Primary Care Provider: unknown Disposition: TRANSFER TO SNF - MEDICAL Discharge Condition: GOOD Reason for Admission: Altered mental status; UTIs; generalized weakness; status post fall Consultations: Cardiology-Dr. Solomon Neurology-Dr. Zuniga PSYC Procedures: CT Head: FINDINGS: No intracranial hemorrhage, mass, edema or shift of mid-line structures. No acute cortical based infarction identified. No cortical edema or sulcal effacement. Mild atrophy changes are present with ventricles in proportion. White matter chronic ischemic changes are present similar to the comparison study. Arterial tree calcifications are present. Mastoid air cells are clear. Chronic right maxillary sinusitis changes are present. Paranasal sinuses are otherwise unremarkable. No acute bony findings. Patient has normal variant hyperostosis frontalis interna. Minimal stranding is present in the left lateral scalp soft tissues. IMPRESSION: No acute intracranial findings identifiable. The atrophy and chronic ischemic changes match the recent August 19 study. Right maxillary sinus chronic sinusitis. Medical problem list: Metabolic encephalopathy with sepsis related to UTI and bacteremia, blood/urine culture positive for E coli ESBL C dif positive with chronic diarrhea: Acute on chronic renal disease stage 3 Diarrhea Elevated troponin related to sepsis Depression/schizophrenia Dementia Insomnia Anemia of chronic disease Brief History of Present Illness: 73-year-old female presented to the emergency room with generalized weakness, fall. Patient also had altered mental status. Hospital Course: Patient presented with altered mental status secondary to metabolic encephalopathy with sepsis related to UTI and bacteremia. Blood and urine cultures were positive for E coli-ESBL. Patient placed on IV antibiotic therapy. PICC line also placed. The patient has done well. During the course of her stay CT scan unremarkable. Her altered mental status resolved. Patient now back to baseline. Patient with underlying depression, schizophrenia, and dementia. Patient was evaluated for skilled placement. Patient improved. At discharge patient will continue with meropenem 500 mg IV 3 times a day for 8 more days to complete therapy. Recommend to recheck urinalysis and blood culture after that time to monitor resolution. If negative PICC line can be discontinued. Patient with history of chronic diarrhea. This was evaluated. Initial C diff evaluation was negative. This was sent to an outside lab. Prior to discharge. The results were positive. Diarrhea has improved. Patient will be treated. At discharge she will continue with vancomycin 250 mg/5 mL at 5 mL [place] 4 times a day for 10 days. Patient will also continue with lactobacillus 3 times a day. Patient may follow up with GI as an outpatient to further monitor and address. Patient had elevated troponin. This was likely related to her sepsis. Patient was seen by Cardiology. No need for cardiac evaluation at this time. Recommend cardiac stress test as an outpatient. Patient may follow up with cardiology as an outpatient. Patient has history of hypertension. This has remained stable. Propanolol was discontinued. Recommend to monitor blood pressure daily. If her blood pressure remains elevated greater than 140/90 patient may need to restart medication. Would recommend carvedilol low dose if required. This can be further addressed by her PCP. Patient with underlying depression, schizophrenia and dementia. At discharge she will continue with her medications including Depakote 500 mg 1 pill twice daily, Aricept 10 mg at bedtime, Namenda 10 mg twice daily, Zyprexa 2.5 mg 1 pill twice daily, trazodone 200 mg at bedtime, Abilify 5 mg daily, and Cymbalta 60 mg daily. Patient with iron and B12 deficiency. At discharge she will continue with iron and B12 supplementation. Recommend to recheck CBC in 2-4 weeks to monitor progress. Vital Signs/Physical Exam: Temp Pulse Resp BP Pulse Ox 97 F 85 18 131/58 L 99 09/21/19 14:51 09/21/19 14:51 09/21/19 14:51 09/21/19 14:51 09/21/19 14:51 General: Alert, In no apparent distress HEENT: Atraumatic Neck: Supple Respiratory: Clear to auscultation bilaterally, Normal air movement Cardiovascular: Normal pulses, Regular rate/rhythm Gastrointestinal: Normal bowel sounds, Soft and benign, Non-distended Musculoskeletal: No erythema, No tenderness, No warmth Integumentary: No tenderness/swelling, No erythema, No warmth, No cyanosis Neurological: Normal speech, Normal strength at 5/5 x4 extr, Normal tone Laboratory Data at Discharge: WBC 4.2 K/uL (4.3-10.9) L 09/17/19 06:05 Hgb 9.2 g/dL (12.0-15.0) L 09/17/19 06:05 Hct 27.9 % (36.0-45.0) L 09/17/19 06:05 Plt Count 139 K/uL (152-406) L 09/17/19 06:05 PT 11.7 SECONDS (9.5-12.5) 09/13/19 22:00 INR 0.99 09/13/19 22:00 Sodium 142 mmol/L (136-145) 09/17/19 06:05 Potassium 4.1 mmol/L (3.5-5.1) 09/17/19 06:05 BUN 28 mg/dL (7-18) H 09/17/19 06:05 Creatinine 1.23 mg/dL (0.55-1.3) 09/17/19 06:05 Glucose 92 mg/dL (74-106) 09/17/19 06:05 Magnesium 2.0 mg/dL (1.8-2.4) D 09/13/19 22:00 Total Bilirubin 0.2 mg/dL (0.2-1.0) 09/17/19 06:05 AST 16 U/L (15-37) 09/17/19 06:05 ALT 12 U/L (12-78) 09/17/19 06:05 Alkaline Phosphatase 109 U/L (45-117) 09/17/19 06:05 Troponin I 3.67 ng/mL (0.0-0.045) H* 09/15/19 05:38 Home Medications: ARIPiprazole [Abilify*] 1 tab PO DAILY 09/14/19 Divalproex Sodium [Depakote] 500 mg PO BID 09/14/19 Donepezil [Aricept*] 10 mg PO BEDTIME 09/14/19 Duloxetine HCl [Cymbalta] 1 tab PO DAILY 09/14/19 Hydrocodone 5/APAP 325 [[place] 5/325*] 1 tab PO Q6H PRN 09/14/19 Memantine HCl 1 tab PO BID 09/14/19 OLANZapine [Zyprexa*] 1 tab PO BID 09/14/19 Trazodone HCl [Desyrel] 2 tab PO BEDTIME 09/14/19 Cyanocobalamin [Vitamin B-12*] 1,000 mcg PO DAILY #90 tab 09/21/19 Ferrous Sulfate [Ferrous Sulfate*] 325 mg PO DAILY #90 tab 09/21/19 Lactobacillus Acidophilus [Acidophilus Lactobacilli] 1 each PO TID #90 capsule 09/21/19 Nystatin 5 ml PO SEECOM #1 bottle 09/21/19 Vancomycin Oral Soln [Vancocin HCl*] 5 ml PO Q6HR #1 bottle 09/21/19 New Medications: Cyanocobalamin [Vitamin B-12*] 1,000 mcg PO DAILY #90 tab Ferrous Sulfate [Ferrous Sulfate*] 325 mg PO DAILY #90 tab Lactobacillus Acidophilus [Acidophilus Lactobacilli] 1 each PO TID #90 capsule Nystatin 5 ml PO SEECOM #1 bottle Vancomycin Oral Soln [Vancocin HCl*] 5 ml PO Q6HR #1 bottle Patient Discharge Instructions: 1. Patient will go to skilled facility to continue therapy. 2. Patient presented with altered mental status secondary to metabolic encephalopathy with sepsis related to UTI and bacteremia. Blood and urine cultures were positive for E coli-ESBL. Patient placed on IV antibiotic therapy. PICC line also placed. The patient has done well. During the course of her stay CT scan unremarkable. Her altered mental status resolved. Patient now back to baseline. Patient with underlying depression, schizophrenia, and dementia. Patient was evaluated for skilled placement. Patient improved. At discharge patient will continue with meropenem 500 mg IV 3 times a day for 8 more days to complete therapy. Recommend to recheck urinalysis and blood culture after that time to monitor resolution. If negative PICC line can be discontinued. 3. Patient with history of chronic diarrhea. This was evaluated. Initial C diff evaluation was negative. This was sent to an outside lab. Prior to discharge. The results were positive. Diarrhea has improved. Patient will be treated. At discharge she will continue with vancomycin 250 mg/5 mL at 5 mL [place] 4 times a day for 10 days. Patient will also continue with lactobacillus 3 times a day. Patient may follow up with GI as an outpatient to further monitor and address. 4. Patient had elevated troponin. This was likely related to her sepsis. Patient was seen by Cardiology. No need for cardiac evaluation at this time. Recommend cardiac stress test as an outpatient. Patient may follow up with cardiology as an outpatient. 5. Patient has history of hypertension. This has remained stable. Propanolol was discontinued. Recommend to monitor blood pressure daily. If her blood pressure remains elevated greater than 140/90 patient may need to restart medication. Would recommend carvedilol low dose if required. This can be further addressed by her PCP. 6. Patient with underlying depression, schizophrenia and dementia. At discharge she will continue with her medications including Depakote 500 mg 1 pill twice daily, Aricept 10 mg at bedtime, Namenda 10 mg twice daily, Zyprexa 2.5 mg 1 pill twice daily, trazodone 200 mg at bedtime, Abilify 5 mg daily, and Cymbalta 60 mg daily. 7. Patient with iron and B12 deficiency. At discharge she will continue with iron and B12 supplementation. Recommend to recheck CBC in 2-4 weeks to monitor progress. 8. Patient reported some oral thrush. At discharge nystatin swish and swallow will be provided for 1 week. Diet: AHA Activity: Ad jimi Time spent managing pt's care (in minutes): 55
[2019-09-21] MEDS: VANCOMYCIN ORAL SOLN 250 MG/5 ML OSYR PO SCH ×2 (15:33→18:08)
[2019-09-21 16:30] VITALS: BP 124/58
[2019-09-21] MEDS: ENOXAPARIN 30 MG/0.3 ML SQ SCH (18:08)
[2019-09-21] MEDS ORDERED: NYSTATIN PWDR 100000 UNIT/GM TOP SCH (21:00)
[2019-09-25 14:10] LABS: C.diff Antigen/Toxin Ag pos : Tox neg (NEG : NEG)
--- NOTE | 2019-10-03 09:12 | CON ---
Date of Consultation: 09/14/2019 Chief Complaint: Psychiatry is consulted to evaluate patient psychiatrically and make medication recommendations. History Of Present Illness: Ms. Macrina Mason is a 73-year-old female with a psychiatric history significant for Bipolar disorder. The patient is currently admitted for altered mental status and history of UTI on IV antibiotic therapy. On interview, the patient was unable to provide detailed history on what lead to her current admission, she however verbalized that she is not depressed but she is feeling very sick. She was observed to be perseverating and restless. The patient was brought in confused by EMS. Patient's family could not be reached to provide collateral information. The patient lives at home with and son after her recent discharge from psychiatric admission. Objective: Vital Signs: Blood pressure , pulse rate is 85, respiratory rate is 18, pulse oximetry is 99% on room air. Mental Status: Patient is an obese built female, lying on bed, was unable to fully participate with this examination The patient is perseverating and restless. Assessment: 1. Delirium. 2. Bipolar disorder Recommendations: 1. Recommend continuing Abilify 5 mg p.o. daily. 2. Recommend reducing Cymbalta 30 mg p.o. daily. 3. Discussed recommendations with treatment team. 4. Recommend the patient to followup with Psychiatry 2 weeks post discharge. Spent 45 minutes reviewing patient's chart, interviewing patient and discussing with patient's treatment team CLARY Voice ID: [id number] Report ID: [id number] DULCE
== END 2019-09-21 19:15 | DRG 871 ==
LOC: ER 20:22 → OBSVTOIN 09-14 02:03 → ERHOLD 09-14 02:03 → 2ND 09-14 10:55 → 4TH 09-16 20:25
PROVIDERS: ADMIT Hospitalist; ATTEND Hospitalist
DX: A41.51 Sepsis due to Escherichia coli [E. coli] (principal); G93.41 Metabolic encephalopathy; N39.0 Urinary tract infection, site not specified; Z16.12 Extended spectrum beta lactamase (ESBL) resistance; A04.72 Enterocolitis due to Clostridium difficile, not specified as recurrent; N17.9 Acute kidney failure, unspecified; B96.20 Unspecified Escherichia coli [E. coli] as the cause of diseases classified elsewhere; I12.9 Hypertensive chronic kidney disease with stage 1 through stage 4 chronic kidney disease, or unspecified chronic kidney disease; N18.3 Chronic kidney disease, stage 3 (moderate); F32.9 Major depressive disorder, single episode, unspecified; F20.9 Schizophrenia, unspecified; F03.90 Unspecified dementia, unspecified severity, without behavioral disturbance, psychotic disturbance, mood disturbance, and anxiety; G47.00 Insomnia, unspecified; D64.9 Anemia, unspecified
CPT/HCPCS: 36415; 36569; 51702; 70450; 71045; 71250; 72125; 72170; 80048; 80053; 80076; 81003; 81015; 83605; 83735; 83880; 84145; 84439; 84443; 84484; 85025; 85610; 87040; 87077; 87086; 87088; 87186; 87205; 87324; 87449; 87493; 87804; 93005; 96361; 96365; 96372; 97110; 97112; 97116; 97161; 97530; 99285; J0696; J1650; J2270; J2405; J2543; J7030; J7040

== ENCOUNTER 2019-10-12 04:50 | Emergency (ER) | payer OTHER, BC ==
--- OUTSIDE RECORDS SUMMARY | 2019-10-12 04:53 | XMS REPORT ---
:1945 Author Organization [facility] t Address [address] [place] [address] Care Team Providers Name Role Phone Unavailable Unavailable Unavailable Payers Payer Name Policy Type Policy Number Effective Date Expiration D ate Problems This patient has no known problems. Allergies, Adverse Reactions, Alerts Allergy Allergy Status Severity Reaction(s) Onset Inactive Treating C omments Name Type Date Date Clinician No Known DA Active U 2019-08 Allergies 20 00:00:0 0 Medications This patient has no known medications. Results Test Description Test Time Test Comments Text Results Atomic Results Result Comments VALPROIC ACID (DEPAKENE) 2019-08-31 07:37:00 Test Item Value Reference Range Comments VALPROIC ACID (DEPAKENE) (test code = VALP) 45.7 ug/mL 50.0 -100.0 HGBA1C - GLYCOSYLATED [id number] 14:38:00 Test Item Value Reference Range Comments GLYCOSYLATED HEMOGLOBIN (HA1C) (test code = GLYHGB) 4.7 % 4.0-6.0 URINALYSIS [id number] 13:31:00 Test Item Value Reference Range Comments UA COLOR (test code = COLU) YELLOW YELLOW UA APPEARANCE (test code = APPU) CLOUDY CLEAR UA GLUCOSE DIPSTICK (test code = DGLUU) NEGATIVE MG/AL NEGATIVE UA BILIRUBIN DIPSTICK (test code = BILU) NEGATIVE NEGATIV E UA KETONE DIPSTICK (test code = KETU) NEGATIVE MG/DL NEGATIVE UA SPECIFIC GRAVITY (test code = SGU) 1.020 1.000-1.03 0 UA BLOOD DIPSTICK (test code = DAMIEN) 1+ NEGATIVE UA PH DIPSTICK (test code = RJ) 5.5 4.5-8.5 UA PROTEIN DIPSTICK (test code = PROU) 30 (1+) NEGATIVE UA UROBILINOGEN DIPSTICK (test code = URO) 0.2 EU/dL <=1.0 UA NITRITE DIPSTICK (test code = MARY ALICE) POSITIVE NEGATIVE UA LEUKOCYTE ESTERASE DIPSTICK (test code = 3+ NEGA TIVE LEUU) UA WBC (test code = WBCU) >100 /HPF 0-3 UA RBC (test code = RBCU) 0-3 /HPF 0-3 UA EPITHELIAL CELLS (test code = EPIU) 3+ /LPF NONE-FEW UA BACTERIA (test code = BACU) 3+ /HPF NEGATIVE URINALYSIS [id number] 13:20:00 Test Item Value Reference Range Comments UA COLOR (test code = COLU) YELLOW YELLOW UA APPEARANCE (test code = APPU) CLOUDY CLEAR UA GLUCOSE DIPSTICK (test code = DGLUU) NEGATIVE MG/AL NEGATIVE UA BILIRUBIN DIPSTICK (test code = BILU) NEGATIVE NEGATIV E UA KETONE DIPSTICK (test code = KETU) NEGATIVE MG/DL NEGATIVE UA SPECIFIC GRAVITY (test code = SGU) 1.020 1.000-1.03 0 UA BLOOD DIPSTICK (test code = DAMIEN) 1+ NEGATIVE UA PH DIPSTICK (test code = RJ) 5.5 4.5-8.5 UA PROTEIN DIPSTICK (test code = PROU) 30 (1+) NEGATIVE UA UROBILINOGEN DIPSTICK (test code = URO) 0.2 EU/dL <=1.0 UA NITRITE DIPSTICK (test code = MARY ALICE) POSITIVE NEGATIVE UA LEUKOCYTE ESTERASE DIPSTICK (test code = 3+ NEGA TIVE LEUU) UA WBC (test code = WBCU) /HPF 0-3 UA RBC (test code = RBCU) /HPF 0-3 UA EPITHELIAL CELLS (test code = EPIU) /LPF NONE-FEW UA BACTERIA (test code = BACU) /HPF NEGATIVE BASIC METABOLIC [id number] 12:49:00 Test Item Value Reference Range Comments SODIUM (test code = NA) 140 mmol/L 136-145 POTASSIUM (test code = K) 5.1 MMOL/L 3.6-5.2 CHLORIDE (test code = CL) 108 MMOL/L 98-110 CARBON DIOXIDE (test code = 23 mEq/L 24-32 CO2) GLUCOSE (test code = GLU) 88 mg/dL 70-110 BLOOD UREA NITROGEN (test 29 mg/dL 7-18 code = BUN) GLOMERULAR FILTRATION RATE 36 >60 The e stimated glomerular (test code = GFR) filtration rat e is computed usingpatient rac e, age (>18), sex, and serum c reatinine. If anyof the needed data elements are missing the Laboratory cannot compute a n estimation of the glomerula r filtration rate. CREATININE (test code = 1.53 mg/dL 0.60-1.30 CREAT) CALCIUM (test code = CA) 9.2 mg/dL 8.6-10.4 BASIC METABOLIC [id number] 12:43:00 Test Item Value Reference Range Comments SODIUM (test code = NA) mmol/L 136-145 POTASSIUM (test code = K) 5.1 MMOL/L 3.6-5.2 CHLORIDE (test code = CL) MMOL/L 98-110 CARBON DIOXIDE (test code = mEq/L 24-32 CO2) GLUCOSE (test code = GLU) mg/dL 70-110 BLOOD UREA NITROGEN (test 29 mg/dL 7-18 code = BUN) GLOMERULAR FILTRATION RATE 36 >60 The e stimated glomerular (test code = GFR) filtration rat e is computed usingpatient rac e, age (>18), sex, and serum c reatinine. If anyof the needed data elements are missing the Laboratory cannot compute a n estimation of the glomerula r filtration rate. CREATININE (test code = 1.53 mg/dL 0.60-1.30 CREAT) CALCIUM (test code = CA) mg/dL 8.6-10.4 CBC W/AUTO [id number] 12:02:00 Test Item Value Reference Range Comments WHITE BLOOD CELL (test code = WBC) 6.89 K/mm3 5.0-12.0 RED BLOOD CELL (test code = RBC) 2.93 M/mm3 4.20-5.40 HEMOGLOBIN (test code = HGB) 9.2 G/DL 12.0-16.0 HEMATOCRIT (test code = HCT) 30.0 % 36.0-46.0 MEAN CELL VOLUME (test code = MCV) 102 fL 81-99 MEAN CELL HGB (test code = MCH) 31.4 PGM 27-31 MEAN CELL HGB CONCENTRATION (test code = MCHC) 30.7 G/DL 3 3-37 RED CELL DISTRIBUTION WIDTH (test code = RDW) 13.3 % 11 .6-16.2 PLATELET COUNT (test code = PLT) 190 K/mm3 130-400 MEAN PLATELET VOLUME (test code = MPV) 11.3 fl 7.4-10.4 NEUTROPHIL % (test code = NT%) 64.0 % 43-65 IMMATURE GRANULOCYTE % (test code = IG%) 0.4 % 0.0-2.0 LYMPHOCYTE % (test code = LY%) 21.2 % 20.5-45.5 MONOCYTE % (test code = MO%) 7.5 % 5.5-11.7 EOSINOPHIL % (test code = EO%) 6.5 % 0.9-2.9 BASOPHIL % (test code = BA%) 0.4 % 0.2-1.0 NUCLEATED RBC % (test code = NRBC%) 0.0 % 0-1.0 NEUTROPHIL # (test code = NT#) 4.40 K/mm3 2.2-4.8 LYMPHOCYTE # (test code = LY#) 1.46 K/mm3 1.3-2.9 MONOCYTE # (test code = MO#) 0.52 K/mm3 0.3-0.8 EOSINOPHIL # (test code = EO#) 0.45 K/MM3 0.0-0.2 BASOPHIL # (test code = BA#) 0.03 K/mm3 0.0-0.1 LIPID PROFILE (CORONARY RISK)2019-08-27 12:09:00 Test Item Value Reference Range Comments TRIGLYCERIDES (test code = 149 mg/dL 35-160 N-[place] wfb-n-pntubibvlxsh imine TRIG) (NAPQI), a metab olite ofacetaminophen (paracetamol), may generate err oneously lowresults in sa mples for patients that decker ve taken toxic dosesof acetamin ophen (paracetamol). CHOLESTEROL (test code = 211 mg/dL 50-200 CHOL) HDL CHOLESTEROL (test code = 50 mg/dL 35-85 HDL) LIPOPROTEIN LDL TORI (test 131 MG/DL 10-130 code = LDLC) CORONARY RISK FACTOR (test 4.22 code = RISK) CHOL/HDL RISK M MIRI: 2 AVG 3.43 FEMALE: 1/2 AVG 3.27 AVG 4.97 AVG 4.44 2X AVG 9.55 2X AVG 7.05 3X AVG 23.39 3X AVG 11.04~~~~~~~~~~~ ~~~~~~~~~~~~~~ ~~~~~~~~~~~~~~~~ ~~~~~~~~~~~~~~ ~~~~~[facility] olesterol Education (NCEP) Guidelines:~~~~~ ~~~~~~~~~~~~~~ ~~~~~~~~~~~~~~~~ ~~~~~~~~~~~~~~ ~~~~~~~~~~~ HDL Cholestero l<40mg/dL: HDL Cholesterol (Major risk factor for CHD)> 60mg/dL: HDL Cholesterol (Neg ative risk factor for CHD)4 0-59mg/dL: Borderline Risk LDL Cholesterol<10 0mg/dL: Desirable LDL-C [id number] -159mg/dL: Borderline High Risk LDL-C drezpfmoizvkv362 -189mg/dL: High risk LDL-C concentration HDL-LDL Choleste rol is affected by a nu mber of factors suchas s moking, age and sex.~~~~~~~~~~~~ ~~~~~~~~~~~~~~ ~~~~~~~~~~~~~~~~ ~~~~~~~~~~~~~~ ~~~~ THYROID STIMULATING [id number] 12:09:00 Test Item Value Reference Range Comments THYROID STIMULATING HORMONE (test code = TSH) 8.41 mIU/mL 0. 38-5.60
--- OUTSIDE RECORDS SUMMARY | 2019-10-12 04:54 | XMS REPORT ---
:1945 Author Organization [employer] Care Team Providers Name Role Phone Alegre, Na Provider Role Unavailable Allergies No Known Allergies Problems Problem Type Condition Code Onset Dates Condition Statu s Problem Allergic rhinitis J30.9 Active Problem Primary osteoarthritis of both M17.0 Active knees Problem Dementia without behavioral F03.90 Active disturbance, unspecified dementia type Problem Overactive bladder N32.81 Active Assessment Urinary tract infection, site not N39.0 Active specified Problem Migraines G43.909 Active Assessment Hematuria, unspecified R31.9 Activ e Problem Other chronic pain G89.29 Active Problem Pure hyperglyceridemia E78.1 Activ e Problem Swelling R60.9 Active Problem Mixed hyperlipidemia E78.2 Active Problem Lumbar disc herniation M51.26 Activ e Problem Acquired hypothyroidism E03.9 Acti ve Problem Bipolar disorder F31.9 Active Problem Unsteady gait R26.81 Active Problem HTN (hypertension) I10 Active Problem Depression F32.9 Active Problem Degenerative disc disease, lumbar M51.36 Active Problem Anxiety F41.9 Active Problem Hyperthyroidism E05.90 Active Problem COPD (chronic obstructive pulmonary J44.9 Active disease) Medications Medication Code Code Instructions Start End Date Status Dosage System Date Topiramate ND 59016912523 100 MG Orally Active 1 t ablet twice a day Levothyroxine ND 69825197869 200 MCG Orally Active 1 tablet Sodium Once a day on an empty stomach in the morning Imodium A-D ND 46204425048 2 MG Orally Active 1 ta blet Four times a as needed day Melatonin ND 38395844118 3 MG Orally Active 1 tabl et Once a day at bedtime as needed with food Oxybutynin ND 62936149176 5 MG Oral twice Active 1 tablet Chloride ER a day Lisinopril ND 67104756014 2.5 MG Orally Active 1 t ablet twice a day Ipratropium-Albu ND 99509668403 0.5-2.5 (3) Active 3 ml terol MG/3ML Inhalation every 6 hrs Levothyroxine ND 13720261129 25 MCG Orally Oct , Active 1 tablet Sodium Once a day 2018 in the morning on an empty stomach Simethicone ND 39008275254 80 MG Orally Active 1 t ablet Four times a after day meals and at bedtime as needed Memantine HCl ND 65643617094 10 MG Orally Active 1 tablet Twice a day Donepezil HCl ND 68245412828 10 MG Oral Active 1 t ablet twice a day at bedtime Carbamazepine ND 16927720963 200 MG Orally Active 1 tablet once a day Claritin ND 58319654944 10 MG Orally December 08, Active 1 tab let Once a day 2018 BuPROPion HCl ER ND 44848792419 300 MG Orally Activ e 1 tablet (XL) Once a day in the morning Calcium NDC 0 Oral Active 1 tab Cipro [facility] 91629623334 500 MG Orally May 12, May 19, Active 1 tabl et every 12 hrs 2018 2018 Oxybutynin [facility] 50586244686 5 MG Orally Apr 27October Active 1 tab let Chloride Twice a day 2018 Benadryl Allergy ND 38849600824 25 MG Orally Active 1 tablet every 8 hrs as needed Imitrex ND 56141733960 50 MG Orally Apr 03, Active 1 tabl et Once a day november 2018 as needed repeat dose 1 dose in 2 hours ( max 2 doses in 24 hours) Carvedilol [facility] 28712802309 6.25 MG Orally Active 1 tablet Twice a day Promethazine HCl [facility] 60520610561 25 MG/ML Active 1 ml as Injection every needed 6 hrs Zantac [facility] 12481741347 150 MG Orally Active 1 tabl et Once a day at bedtime Duloxetine HCl [facility] 51103202692 60 MG Orally Active 1 capsule Once a day Folic Acid-Vit [facility] 24532-49396 0.8-10-0.115 MG Activ e 1 tablet B6-Vit B12 Orally Once a day Divalproex ND 33313635928 500 MG Orally Active 1 t ablet Sodium Twice a day Vitamin D [facility] 82424637638 1000 UNIT Active 1 tablet Orally Once a day Diclofenac ND 47178723727 75 MG Orally Active 1 ta blet Sodium Twice a day with food or milk Flonase [facility] 73805858991 50 MCG/DOSE December 08, Active 1 spray in Nasally Twice a 2018 each day nostril Protonix [facility] 86868101773 40 MG Orally Active 1 tabl et Once a day Atorvastatin [facility] 92539598540 20 MG Orally Active 1 tablet Calcium Once a day Trazodone HCl [facility] 23977278634 50 MG Oral Active not defined Gabapentin [facility] 99721625438 800 MG Orally Active 1 t ablet three times a day Ondansetron HCl [facility] 11460720893 4 MG Orally Active 1 tablet every 6 hrs Results Name Result Date Reference Range Unit Abnormali ty Flag Urine Dip Stick ----Appearance yellow and cloudy 20190512 ----SP. Gr 1.015 20190512 ----pH 6.0 20190512 ----Ketone NEG 20190512 ----Glucose NEG 72572599 ----Blood 2+ 20190512 ----Protein 1+ 20190512 ----Nitrite POS [id number] ----Leukocytes 3+ 20190512 Summary Purpose [employer] Submission
--- OUTSIDE RECORDS SUMMARY | 2019-10-12 04:54 | XMS REPORT ---
:1945 Author Organization e[employer]Works Care Team Providers Name Role Phone Alegre, Na Provider Role Unavailable Allergies, Adverse Reactions, Alerts Substance Reaction Event Type N.K.D.A. 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 Activ e Assessment Overactive bladder N32.81 Active Assessment COPD [...] Migraines G43.909 Active Assessment Acquired hypothyroidism E03.9 Acti ve Assessment HTN (hypertension) I10 Active Problem Other chronic pain G89.29 Active Assessment Mixed hyperlipidemia E78.2 Active Problem Pure hyperglyceridemia E78.1 Activ e Problem Swelling R60.9 Active Problem Mixed hyperlipidemia E78.2 Active Problem Lumbar disc herniation M51.26 Activ e Problem Acquired hypothyroidism E03.9 Acti ve Assessment Pain in left shoulder M25.512 Active Problem Bipolar disorder F31.9 Active Problem Unsteady gait R26.81 Active Problem HTN (hypertension) I10 Active Problem Depression F32.9 Active Problem Degenerative disc disease, lumbar M51.36 Active Problem Hyperthyroidism E05.90 Active Medications Medication Code Code Instructions Start End Date Status Dosage System Date Protonix ND 85612687773 40 MG Orally Active 1 tabl et Once a day Benadryl Allergy ND 87001116134 25 MG Orally Active 1 tablet every 8 hrs as needed Folic Acid-Vit [facility] 33277-28613 0.8-10-0.115 MG Activ e 1 tablet B6-Vit B12 Orally Once a day Calcium NDC 0 Oral Active 1 tab Diclofenac ND 84035884126 75 MG Orally Active 1 ta blet Sodium Twice a day with food or milk Carbamazepine [facility] 79974727020 200 MG Orally Active 1 tablet once a day Ipratropium-Albu [facility] 61641178434 0.5-2.5 (3) Active 3 ml terol MG/3ML Inhalation every 6 hrs Simethicone [facility] 76321733575 80 MG Orally Active 1 t ablet Four times a after day meals and at bedtime as needed Myrbetriq [facility] 64232181329 25 MG Orally Apr 27October Active 1 tab let Once a day 2018 Levothyroxine [facility] 19356756388 25 MCG Orally Apr 27, Active 1 tablet Sodium Once a day 2018 in the morning on an empty stomach Ondansetron HCl [facility] 37310227184 4 MG Orally Active 1 tablet every 6 hrs Gabapentin ND 60822747887 800 MG Orally Active 1 t ablet three times a day Atorvastatin [facility] 38351628212 20 MG Orally Active 1 tablet Calcium Once a day Oxybutynin ND 58292801241 5 MG Oral twice Active 1 tablet Chloride ER a day Claritin [facility] 42345444982 10 MG Orally December 08, Active 1 tab let Once a day 2018 Promethazine HCl [facility] 27388479133 25 MG/ML Active 1 ml as Injection every needed 6 hrs Melatonin [facility] 64409532772 3 MG Orally Active 1 tabl et Once a day at bedtime as needed with food Carvedilol [facility] 86986483984 6.25 MG Orally Active 1 tablet Twice a day Lisinopril [facility] 41186747701 2.5 MG Orally Active 1 t ablet twice a day Donepezil HCl [facility] 03318364370 10 MG Oral Active 1 t ablet twice a day at bedtime Vitamin D [facility] 32715629422 1000 UNIT Active 1 tablet Orally Once a day Duloxetine HCl [facility] 77203879369 60 MG Orally Active 1 capsule Once a day BuPROPion HCl ER [facility] 21529796199 300 MG Orally Activ e 1 tablet (XL) Once a day in the morning Flonase [facility] 33992479946 50 MCG/DOSE December 08, Active 1 spray in Nasally Twice a 2019 each day nostril Imodium A-D [facility] 61898496391 2 MG Orally Active 1 ta blet Four times a as needed day Imitrex ND 64418961544 50 MG Orally Apr 03, Active 1 tabl et Once a day november 2018 as needed repeat dose 1 dose in 2 hours ( max 2 doses in 24 hours) Levothyroxine [facility] 54565061540 200 MCG Orally Active 1 tablet Sodium Once a day on an empty stomach in the morning Topiramate [facility] 66117677002 100 MG Orally Active 1 t ablet twice a day Divalproex [facility] 11989240945 500 MG Orally Active 1 t ablet Sodium Twice a day Zantac [facility] 59378220305 150 MG Orally Active 1 tabl et Once a day at bedtime Memantine HCl [facility] 72915230557 10 MG Orally Active 1 tablet Twice a day Trazodone HCl [facility] 23397103119 50 MG Oral Active not defined Results No Known Results Summary Purpose eClinicalWorks Submission
--- OUTSIDE RECORDS SUMMARY | 2019-10-12 04:55 | XMS REPORT ---
:1945 Author Organization [employer]Works Care Team Providers Name Role Phone Alegre, Na Provider Role Unavailable Allergies No Known Allergies Problems Problem Type Condition Code Onset Dates Condition Statu s Problem Mixed hyperlipidemia E78.2 Active Problem Dementia without behavioral F03.90 Active disturbance, unspecified dementia type Problem Migraines G43.909 Active Problem Overactive bladder N32.81 Active Problem Other chronic pain G89.29 Active Problem CKD (chronic kidney disease), stage N18.3 Active III Problem Swelling R60.9 Active Problem Primary osteoarthritis of both M17.0 Active knees Problem Lumbar disc herniation M51.26 Activ e Problem Pure hyperglyceridemia E78.1 Activ e Problem Bipolar disorder F31.9 Active Problem Degenerative disc disease, lumbar M51.36 Active Problem Unsteady gait R26.81 Active Problem Acquired hypothyroidism E03.9 Acti ve Problem Depression F32.9 Active Problem Anxiety F41.9 Active Problem Hyperthyroidism E05.90 Active Problem COPD (chronic obstructive pulmonary J44.9 Active disease) Problem HTN (hypertension) I10 Active Problem Allergic rhinitis J30.9 Active Medications Medication Code Code Instructions Start End Status Dosage System Date Date Comp Air [facility] 35826266672 - every 6 hours Jun 16, Active as directed Compressor as needed 2019 Nebulizer Results No Known Results Summary Purpose eClinicalWorks Submission
--- OUTSIDE RECORDS SUMMARY | 2019-10-12 04:55 | XMS REPORT ---
[...] Assessment Acquired hypothyroidism E03.9 Acti ve Assessment Migraines G43.909 Active Problem Other chronic [...]
--- OUTSIDE RECORDS SUMMARY | 2019-10-12 04:56 | XMS REPORT ---
:1945 Author Organization [employer] Care Team Providers Name Role Phone Alegre, Na Provider Role Unavailable Allergies No Known Allergies Problems Problem Type Condition Code Onset Dates Condition Statu s Assessment Overactive bladder N32.81 Active Problem Allergic [...] H04.123 Active Assessment Dry mouth, unspecified R68.2 Activ e Problem Pure hyperglyceridemia E78.1 Activ e Problem Swelling R60.9 Active Problem Other chronic pain G89.29 Active Problem Lumbar disc herniation M51.26 Activ e Problem Degenerative disc disease, lumbar M51.36 Active Problem Hyperthyroidism E05.90 Active Problem Acquired hypothyroidism E03.9 Acti ve Problem Bipolar disorder F31.9 Active Problem Anxiety F41.9 Active Problem COPD (chronic obstructive pulmonary J44.9 Active disease) Problem HTN (hypertension) I10 Active Problem Depression F32.9 Active Medications Medication Code Code Instructions Start End Date Status Dosage System Date Melatonin ND 69995272518 3 MG Orally Active 1 tabl et Once a day at bedtime as needed with food Simethicone ND 90936236007 80 MG Orally Active 1 t ablet Four times a after day meals and at bedtime as needed Calcium NDC 0 Oral Active 1 tab Vitamin D ND 90997903500 1000 UNIT Active 1 tablet Orally Once a day Donepezil HCl ND 66457003937 10 MG Oral Active 1 t ablet twice a day at bedtime Oxybutynin ND 33285404425 5 MG Orally Apr 27October Active 1 tab let Chloride Twice a day 2018 Claritin [facility] 11462123939 10 MG Orally December 08, Active 1 tab let Once a day 2018 Protonix [facility] 90487271105 40 MG Orally Active 1 tabl et Once a day Duloxetine HCl [facility] 55545501794 60 MG Orally Active 1 capsule Once a day Zantac [facility] 23247222393 150 MG Orally Active 1 tabl et Once a day at bedtime Gabapentin ND 37190871485 800 MG Orally Active 1 t ablet three times a day Oxybutynin [facility] 87323135631 5 MG Oral twice Active 1 tablet Chloride ER a day Topiramate [facility] 51452891164 100 MG Active TAKE 1 TABLET BY MOUTH TWICE DAILY BuPROPion HCl ER [facility] 85102626791 300 MG Orally Activ e 1 tablet (XL) Once a day in the morning Imitrex ND 65998990024 50 MG Orally Apr 03, Active 1 tabl et Once a day november 2018 as needed repeat dose 1 dose in 2 hours ( max 2 doses in 24 hours) Benadryl Allergy [facility] 17411748445 25 MG Orally Active 1 tablet every 8 hrs as needed Imodium A-D [facility] 97927237310 2 MG Orally Active 1 ta blet Four times a as needed day Atorvastatin ND 57530079952 20 MG Orally Active 1 tablet Calcium Once a day Levothyroxine [facility] 75399827891 200 MCG Orally Active 1 tablet Sodium Once a day on an empty stomach in the morning Ipratropium-Albu [facility] 46793419772 0.5-2.5 (3) Active 3 ml terol MG/3ML Inhalation every 6 hrs Folic Acid-Vit [facility] 24926-29751 0.8-10-0.115 MG Activ e 1 tablet B6-Vit B12 Orally Once a day Flonase [facility] 71163801346 50 MCG/DOSE December 08, Active 1 spray in Nasally Twice a 2018 each day nostril Zofran [facility] 05073456306 4 MG Orally Jun 17, Active 1 tablet every 12 hrs 2019 prn nausea Lisinopril ND 55930761036 2.5 MG Orally Active 1 t ablet twice a day Diclofenac ND 07325143297 75 MG Orally Active 1 ta blet Sodium Twice a day with food or milk Levothyroxine [facility] 66506053945 25 MCG Orally Apr 27, Active 1 tablet Sodium Once a day 2018 in the morning on an empty stomach Memantine HCl [facility] 04766911958 10 MG Orally Active 1 tablet Twice a day Comp Air [facility] 12234594856 - every Jun 16, Active as Compressor hours as needed 2018 dire james Nebulizer Carvedilol [facility] 68083080909 6.25 MG Orally Active 1 tablet Twice a day Carbamazepine [facility] 83568382216 200 MG Orally Active 1 tablet once a day Trazodone HCl [facility] 85715053231 50 MG Oral Active not defined Divalproex [facility] 98403502929 500 MG Orally Active 1 t ablet Sodium Twice a day Ondansetron HCl [facility] 45119675101 4 MG Orally Active 1 tablet every 6 hrs Results Name Result Date Reference Range Unit Abnormali ty Flag Sjogren's Ab, Anti-SSA/-SSB ----Sjogren's <0.2 [id number] 0.0-0.9 AI Anti-SS-A ----Sjogren's <0.2 [id number] 0.0-0.9 AI Anti-SS-B EDWIN w/Reflex ----EDWIN Direct Negative [id number] Negative Comp. Metabolic Panel (14) (CMP) ----Sodium 142 66675656 134-144 mmol/L ----BUN/Creatinine 17 [id number] 12-28 Ratio ----Chloride 106 89286113 96-106 mmol/L ----Potassium 5.5 12601101 3.5-5.2 mmol/L H ----Calcium 9.2 13951524 8.7-10.3 mg/dL ----Protein, Total 5.7 05511855 6.0-8.5 g/dL L ----Carbon Dioxide, 23 20190627 20-29 mmol/L Total ----A/G Ratio 1.9 [id number] 1.2-2.2 ----eGFR If NonAfricn 38 [id number] >59 mL/min/1.73 L Am ----Bilirubin, Total <0.2 76508120 0.0-1.2 mg/dL ----eGFR If Africn Am 44 [id number] >59 mL/min/1.73 L ----Albumin 3.7 20190627 3.5-4.8 g/dL ----BUN 23 20190627 8-27 mg/dL ----Globulin, Total 2.0 20190627 1.5-4.5 g/dL ----Creatinine 1.38 20190627 0.57-1.00 mg/dL H ----ALT (SGPT) 13 20190627 0-32 IU/L ----Glucose 84 20190627 65-99 mg/dL ----Alkaline 122 20190627 39-117 IU/L H Phosphatase ----AST (SGOT) 13 20190627 0-40 IU/L Summary Purpose eClinicalWorks Submission
--- OUTSIDE RECORDS SUMMARY | 2019-10-12 04:56 | XMS REPORT ---
:1945 Author Organization eClinicalWorks Care Team Providers Name Role Phone Alegre, Na Provider Role Unavailable Allergies, Adverse Reactions, Alerts Substance Reaction Event Type N.K.D.A. Info Not Available Non Drug Allergy Problems Problem Type Condition Code Onset Dates Condition Statu s Assessment Unsteady gait R26.81 Active Assessment Hyperkalemia [...] N18.3 Active III Assessment Acquired hypothyroidism E03.9 Acti ve Problem Swelling R60.9 Active Problem Primary osteoarthritis [...] End Status Dosage System Date Date Carvedilol ND 32516293661 6.25 MG Orally Active 1 tablet Twice a day Lisinopril ND 68297381915 2.5 MG Orally Active 1 t ablet twice a day Carbamazepine ND 24814099668 200 MG Orally Active 1 tablet once a day Ondansetron HCl [facility] 35866727394 4 MG Orally Active 1 tablet every [address] [facility] 66519619158 1000 UNIT Active 1 tablet Orally Once a day Melatonin ND 25496100817 3 MG Orally Active 1 tabl et Once a day at bedtime as needed with food Protonix [facility] 64846267916 40 MG Orally Active 1 tabl et Once a day Imitrex ND 19213338327 50 MG Orally Apr 03, Active 1 tabl et Once a day november 2018 as needed repeat dose 1 dose in 2 hours ( max 2 doses in 24 hours) Donepezil HCl [facility] 42362756171 10 MG Oral Active 1 t ablet twice a day at bedtime Claritin [facility] 78345642555 10 MG Orally December 08, Active 1 tab let Once a day [address] [facility] 75999041641 60 MG Orally Active 1 capsule Once a day Benadryl Allergy [facility] 06062558723 25 MG Orally Active 1 tablet every 8 hrs as needed Simethicone [facility] 73493849590 80 MG Orally Active 1 t ablet Four times a after day meals and at bedtime as needed Imodium A-D [facility] 16104022548 2 MG Orally Active 1 ta blet Four times a as needed day Gabapentin [facility] 80867036844 800 MG Orally Active 1 t ablet three times a day Oxybutynin [facility] 84528341384 5 MG Oral twice Active 1 tablet Chloride ER a day Ipratropium-Albu [facility] 19930312606 0.5-2.5 (3) Active 3 ml terol MG/3ML Inhalation every [address] [facility] 66885267231 4 MG Orally Jun 17, Active 1 tablet every 12 hrs 2018 prn nausea Trazodone HCl [facility] 52037996933 50 MG Oral Active not defined Zantac [facility] 57676408298 150 MG Orally Active 1 tabl et Once a day at bedtime Atorvastatin [facility] 11959345421 20 MG Orally Active 1 tablet Calcium Once a day Levothyroxine [facility] 57480641270 25 MCG Orally Apr 27, Active 1 tablet Sodium Once a day 2018 in the morning on an empty stomach Divalproex [facility] 38699712509 500 MG Orally Active 1 t ablet Sodium Twice a day Levothyroxine NDC 32315184021 200 MCG Orally Active 1 tablet Sodium Once a day on an empty stomach in the morning Flonase ND 86649334945 50 MCG/DOSE December 08, Active 1 spray Nasally Twice a 2019 in each day nostril Diclofenac ND 08320027229 75 MG Orally Active 1 ta blet Sodium Twice a day with food or milk BuPROPion HCl ER ND 58858232799 300 MG Orally Activ e 1 tablet (XL) Once a day in the morning Memantine HCl ND 64672703493 10 MG Orally Active 1 tablet Twice a day Promethazine HCl [facility] 86387453027 25 MG/ML Inactive 1 ml as Injection every needed 6 hrs Folic Acid-Vit [facility] 14106-78703 0.8-10-0.115 MG Activ e 1 tablet B6-Vit B12 Orally Once a day Topiramate [facility] 84029094444 100 MG Active TAKE 1 TABLET BY MOUTH TWICE DAILY Oxybutynin [facility] 00892335754 5 MG Orally Apr 27October Active 1 tab let Chloride Twice a day 2018 Calcium NDC 0 Oral Active 1 tab Results Name Result Date Reference Range Unit Abnormali ty Flag Basic Metabolic Panel ----Calcium Level 8.4 [id number] 8.5-10.1 mg/dL L ----Glomerular Filtration 33 [id number] =/>90 mL L Rate ----Creatinine 1.56 65364467 0.55-1.3 mg/dL H ----BUN Blood Urea Nitrogen 34 25885430 7-18 mg/dL H ----Glucose Level 85 26544625 74-106 mg/dL ----Sodium Level 143 78947792 136-145 mmol/L ----Potassium 5.3 79828111 3.5-5.1 mmol/L H ----Chloride Level 114 05715695 98-107 mmol/L H ----Bicarbonate 26 20190616 21-32 mmol/L Summary Purpose eClinicalWorks Submission
--- OUTSIDE RECORDS SUMMARY | 2019-10-12 04:56 | XMS REPORT ---
:1945 Author Organization eClinicalWorks Care Team Providers Name Role Phone Alegre, Na Provider Role Unavailable Allergies No Known Allergies Problems Problem Type Condition Code Onset Dates Condition Statu s Problem Migraines G43.909 Active Problem Primary osteoarthritis of both M17.0 Active knees Problem Dementia without behavioral F03.90 Active disturbance, unspecified dementia type Problem CKD (chronic kidney disease), stage N18.3 Active III Problem Unsteady gait R26.81 Active Problem Overactive bladder N32.81 Active Problem Dry eye syndrome of both eyes H04.123 Active Problem Pure hyperglyceridemia E78.1 Activ e [...]
--- NOTE | 2019-10-12 06:44 | ER ---
Nurse's Notes [facility] Name: Macrina Mason Age: 73 yrs Sex: Female : 1945 Arrival Date: 10/12/2019 Time: 04:53 Bed 20 Private MD: Diagnosis: Contusion of right knee;Contusion of left knee;Contusion of left upper arm;Displaced transverse fracture of shaft of humerus, left arm-Chronic Presentation: 10/11 04:55 Chief complaint: EMS states: "Her said that she fell around 2300 yesterday jd3 evening after having an accendent and getting out of the shower and fall and hurt her left shoulder.". Coronavirus screen: Proceed with normal triage. Ebola Screen: Patient negative for fever greater than or equal to 101.5 degrees Fahrenheit, and additional compatible Ebola Virus Disease symptoms. Initial Sepsis Screen: Does the patient meet any 2 criteria? No. Patient's initial sepsis screen is negative. Does the patient have a suspected source of infection? No. Patient's initial sepsis screen is negative. Risk Assessment: Do you want to hurt yourself or someone else? Patient reports no desire to harm self or others. Onset of symptoms was October 11, 2019. 04:55 Method Of Arrival: EMS: [facility] jd3 04:55 Acuity: [facility] 3 jd3 Historical: - Allergies: 05:03 Penicillins; jd3 - Home Meds: 05:03 Amitiza 24 mcg Oral cap 1 cap 2 times per day [Active]; aspirin 325 mg Oral tab 1 tab jd3 once daily [Active]; atorvastatin 20 mg Oral tab 1 tab once daily [Active]; carbamazepine 200 mg Oral CM12 1 cap 2 times per day [Active]; Bisacodyl Oral as needed [Active]; carvedilol 6.25 mg Oral tab 1 tab 2 times per day [Active]; bupropion HCl 300 mg Oral Tb24 1 tab once daily [Active]; diclofenac sodium 75 mg Oral TbEC 1 tab 2 times per day [Active]; Breo Ellipta 200-25 mcg/dose inhalation dsdv 1 puff once daily [Active]; duloxetine 60 mg Oral cpDR 1 cap once daily [Active]; amitriptyline 25 mg Oral tab 1 tab 2 times per day [Active]; donepezil 10 mg Oral tab 1 tab twice a day [Active]; fexofenadine 180 mg Oral tab 1 tab once daily [Active]; folic acid 800 mcg Oral tab 1 tab once daily [Active]; gabapentin 800 mg Oral tab 3 times per day [Active]; lisinopril 2.5 mg Oral tab 1 tab twice a day [Active]; levothyroxine 200 mcg tab 1 tab once daily [Active]; mirtazapine 30 mg Oral tab 1 tab once daily [Active]; topiramate 100 mg Oral CSpX 1 cap once daily [Active]; lorazepam 0.5 mg Oral tab 1 tab 2 times per day [Active]; memantine 10 mg Oral tab 1 tab 2 times per day [Active]; oxybutynin chloride 5 mg Oral tr24 2 tabs once daily [Active]; flaxseed oil 1,000 mg Oral cap daily [Active]; promethazine 25 mg Oral tab 1 tab every 6 hours [Active]; divalproex 500 mg Oral Tb24 1 tab once daily [Active]; trazodone 50 mg Oral tab nightly [Active]; - PMHx: 05:03 allergies; UTI; DVT; Bipolar disorder; Back pain; Schizophrenia; COPD; jd3 - PSHx: 05:03 ERIKA kNEE; jd3 - Immunization history:: Adult Immunizations up to date. - Social history:: Smoking status: Patient denies any tobacco usage or history of. - Family history:: not pertinent. - Hospitalizations: : No recent hospitalization is reported. Screenin:07 Abuse screen: Denies threats or abuse. Nutritional screening: No deficits noted. ea Tuberculosis screening: No symptoms or risk factors identified. 05:08 Fall Risk Fall in past 12 months (25 points). Ambulatory Aid- Crutches/Cane/Walker (15 jd3 pts). Gait- Weak (10 pts.). Mental Status- Overestimates/Forgets Limitations (15 pts.). Total Sandoval Fall Scale indicates High Risk Score (45 or more points). Fall prevention measures have been instituted. Side Rails Up X 2 Placed Close to Nursing Station Frequent Obs/Assessments Occuring. Assessment: 05:05 General: Appears in no apparent distress. uncomfortable, Behavior is calm, cooperative, jd3 appropriate for age, drowsy. Pain: Complains of pain in left shoulder, right knee and left knee Quality of pain is described as aching, tender. Neuro: Level of Consciousness is awake, obeys commands, drowsy. Oriented to person, place, time, situation. Cardiovascular: Denies chest pain, Capillary refill < 3 seconds Patient's skin is warm and dry. Respiratory: Airway is patent Respiratory effort is even, unlabored, Respiratory pattern is regular, symmetrical, Denies cough, shortness of breath. GI: No signs and/or symptoms were reported involving the gastrointestinal system. Patient currently denies constipation, diarrhea, nausea, vomiting. : No signs and/or symptoms were reported regarding the genitourinary system. EENT: No signs and/or symptoms were reported regarding the EENT system. Derm: Skin is intact, Skin is dry, Skin is normal, Skin temperature is warm. Musculoskeletal: Circulation, motion, and sensation intact. Range of motion: limited in left shoulder. 06:12 Reassessment: Patient appears in no apparent distress at this time. No changes from jd3 previously documented assessment. Patient and/or family updated on plan of care and expected duration. Pain level reassessed. 06:52 Reassessment: Patient appears in no apparent distress at this time. No changes from jd3 previously documented assessment. Patient and/or family updated on plan of care and expected duration. Pain level reassessed. provider at bedside discussing results, attempted to call son for discharge with no answer. 07:00 General: Appears in no apparent distress. comfortable, Behavior is calm, cooperative. rb1 Pain: Complains of pain in left shoulder Pain currently is 3 out of 10 on a pain scale. Neuro: Level of Consciousness is awake, obeys commands, Oriented to person, place, time, situation. Respiratory: Airway is patent Respiratory effort is even, unlabored, Respiratory pattern is regular, symmetrical. Derm: Skin is pink, warm \\T\\ dry. 07:25 Reassessment: Tried to call the pt. son Chele \\T\\ [phone], but his voice mailbox is rb1 not set up. 07:34 Reassessment: Spoke to Chele, the pt. son. He will come to pick her up around 0930, he rb1 reports that he has to take his father to dialysis and has children asleep at the house, so he needs to make arrangements before he can come. 08:00 Reassessment: Patient appears in no apparent distress at this time. No changes from rb1 previously documented assessment. 08:49 Reassessment: Patient appears in no apparent distress at this time. Pt. resting with rb1 eyes closed, respirations even, unlabored. Discharge pending, awaiting transportation. 09:51 Reassessment: Discharge pending due to waiting for transportation. rb1 10:15 Reassessment: Patient appears in no apparent distress at this time. Patient and/or rb1 family updated on plan of care and expected duration. Pain level reassessed. Patient is alert, oriented x 3, equal unlabored respirations, skin warm/dry/pink. Vital Signs: 05:04 BP 151 / 59; Pulse 73; Resp 18 S; Temp 98.4(A); Pulse Ox 99% on R/A; Weight 107.05 kg jd3 (R); Height 5 ft. 11 in. (180.34 cm) (R); Pain 8/10; 06:12 BP 144 / 73; Pulse 63; Resp 17 S; Pulse Ox 99% on R/A; jd3 06:53 BP 155 / 70; Pulse 63; Resp 16 S; Pulse Ox 99% on R/A; jd3 07:30 BP 147 / 58; Pulse 67; Resp 18; Pulse Ox 99% ; Pain 3/10; rb1 08:30 BP 158 / 72; Pulse 61; Resp 17; Pulse Ox 98% on R/A; rb1 09:30 BP 165 / 62; Pulse 61; Resp 18; Pulse Ox 97% on R/A; rb1 10:15 BP 147 / 74; Pulse 63; Resp 17; Pulse Ox 98% on R/A; rb1 05:04 Body Mass Index 32.91 (107.05 kg, 180.34 cm) jd3 ED Course: 04:53 Patient arrived in ED. sg 04:54 Ta Stevens MD is Attending Physician. rn 04:55 Rolando Shipman RN is Primary Nurse. jd3 04:57 Triage completed. jd3 05:05 Arm band placed on. jd3 05:07 Patient has correct armband on for positive identification. Bed in low position. Call ea light in reach. Side rails up X2. 05:09 Pulse ox on. NIBP on. jd3 05:37 XRAY Knee LEFT 3 view In Process Unspecified. EDMS 05:37 XRAY Knee RIGHT 3 view In Process Unspecified. EDMS 05:38 XRAY Humerus LEFT In Process Unspecified. EDMS 10:19 No provider procedures requiring assistance completed. Patient did not have IV access rb1 during this emergency room visit. Administered Medications: No medications were administered Outcome: 06:43 Discharge ordered by . rn 10:19 Discharged to home via wheelchair, with family. rb1 10:19 Condition: stable 10:19 Discharge instructions given to patient, Instructed on discharge instructions, follow up and referral plans. Demonstrated understanding of instructions, follow-up care, Prescriptions given X none 10:19 Patient left the ED. rb1 Signatures: Dispatcher [employer] EDMS Jack Leos RN RN sg Ta Stevens MD MD rn Barber, Rebecca RN RN rb1 Sammie Paz RN RN ea Davies, Jonathon RN RN jd3 Corrections: (The following items were deleted from the chart) 10:25 10:24 Patient left the ED. rb1 rb1
--- NOTE | 2019-10-12 06:44 | EDPHYS ---
Physician Documentation [facility] Name: Macrina Mason Age: 73 yrs Sex: Female : 1945 Arrival Date: 10/12/2019 Time: 04:53 Bed 20 Private MD: ED Physician Ta Stevens HPI: 10/11 04:55 This 73 yrs old Female presents to ER via Unassigned with complaints of fall. rn 04:55 Details of fall: The patient fell from an upright position, while walking. Onset: The rn symptoms/episode began/occurred this morning. Associated injuries: The patient sustained left shoulder, both knees. Severity of symptoms: At their worst the symptoms were mild, in the emergency department the symptoms are unchanged. The patient has experienced similar episodes in the past. The patient has not recently seen a physician. Reports chronic falls, reports walking this AM, fell forward, landed on knees and hurt left shoulder. Has broken left humerus before and has had bilateral knee replacements. No head injury/back injury/chest or abd injury. Had gotten up to use shower to clean off accident. . Historical: - Allergies: 05:03 Penicillins; jd3 - Home Meds: 05:03 Amitiza 24 mcg Oral cap 1 cap 2 times per day [Active]; aspirin 325 mg Oral tab 1 tab jd3 once daily [Active]; atorvastatin 20 mg Oral tab 1 tab once daily [Active]; carbamazepine 200 mg Oral CM12 1 cap 2 times per day [Active]; Bisacodyl Oral as needed [Active]; carvedilol 6.25 mg Oral tab 1 tab 2 times per day [Active]; bupropion HCl 300 mg Oral Tb24 1 tab once daily [Active]; diclofenac sodium 75 mg Oral TbEC 1 tab 2 times per day [Active]; Breo Ellipta 200-25 mcg/dose inhalation dsdv 1 puff once daily [Active]; duloxetine 60 mg Oral cpDR 1 cap once daily [Active]; amitriptyline 25 mg Oral tab 1 tab 2 times per day [Active]; donepezil 10 mg Oral tab 1 tab twice a day [Active]; fexofenadine 180 mg Oral tab 1 tab once daily [Active]; folic acid 800 mcg Oral tab 1 tab once daily [Active]; gabapentin 800 mg Oral tab 3 times per day [Active]; lisinopril 2.5 mg Oral tab 1 tab twice a day [Active]; levothyroxine 200 mcg tab 1 tab once daily [Active]; mirtazapine 30 mg Oral tab 1 tab once daily [Active]; topiramate 100 mg Oral CSpX 1 cap once daily [Active]; lorazepam 0.5 mg Oral tab 1 tab 2 times per day [Active]; memantine 10 mg Oral tab 1 tab 2 times per day [Active]; oxybutynin chloride 5 mg Oral tr24 2 tabs once daily [Active]; flaxseed oil 1,000 mg Oral cap daily [Active]; promethazine 25 mg Oral tab 1 tab every 6 hours [Active]; divalproex 500 mg Oral Tb24 1 tab once daily [Active]; trazodone 50 mg Oral tab nightly [Active]; - PMHx: 05:03 allergies; UTI; DVT; Bipolar disorder; Back pain; Schizophrenia; COPD; jd3 - PSHx: 05:03 ERIKA kNEE; jd3 - Immunization history:: Adult Immunizations up to date. - Social history:: Smoking status: Patient denies any tobacco usage or history of. - Family history:: not pertinent. - Hospitalizations: : No recent hospitalization is reported. ROS: 04:55 Constitutional: Negative for fever, chills, and weight loss, Cardiovascular: Negative rn for chest pain, palpitations, and edema, Respiratory: Negative for shortness of breath, cough, wheezing, and pleuritic chest pain, Abdomen/GI: Negative for abdominal pain, nausea, vomiting, diarrhea, and constipation, Back: Negative for injury and pain, MS/Extremity: + left shoulder and both knee pain Skin: bruising to both knees Neuro: Negative for headache, numbness, tingling, and seizure. Exam: 04:55 Constitutional: This is a well developed, well nourished patient who is awake, alert, rn and in no acute distress. Head/Face: Normocephalic, atraumatic. ENT: No oral trauma Neck: No spinal tenderness Cardiovascular: Regular rate and rhythm. No pulse deficits. Respiratory: No increased work of breathing, no retractions or nasal flaring. Abdomen/GI: soft, non-tender Back: No spinal tenderness. No costovertebral tenderness. Full range of motion. MS/ Extremity: Pulses equal, no cyanosis. + mild right knee tenderness, mild lef tknee tenderness, + mild left proximal humerus tenderness. Ecchymosis of both knees. No gross deformity. Neuro: Awake and alert, GCS 15 Vital Signs: 05:04 BP 151 / 59; Pulse 73; Resp 18 S; Temp 98.4(A); Pulse Ox 99% on R/A; Weight 107.05 kg jd3 (R); Height 5 ft. 11 in. (180.34 cm) (R); Pain 8/10; 06:12 BP 144 / 73; Pulse 63; Resp 17 S; Pulse Ox 99% on R/A; jd3 06:53 BP 155 / 70; Pulse 63; Resp 16 S; Pulse Ox 99% on R/A; jd3 07:30 BP 147 / 58; Pulse 67; Resp 18; Pulse Ox 99% ; Pain 3/10; rb1 08:30 BP 158 / 72; Pulse 61; Resp 17; Pulse Ox 98% on R/A; rb1 09:30 BP 165 / 62; Pulse 61; Resp 18; Pulse Ox 97% on R/A; rb1 10:15 BP 147 / 74; Pulse 63; Resp 17; Pulse Ox 98% on R/A; rb1 05:04 Body Mass Index 32.91 (107.05 kg, 180.34 cm) jd3 MDM: 04:54 Patient medically screened. rn 06:42 Differential diagnosis: contusion, fracture, sprain, strain. Data reviewed: vital rn signs, nurses notes, radiologic studies, plain films, and as a result, I will discharge patient. Counseling: I had a detailed discussion with the patient and/or guardian regarding: the historical points, exam findings, and any diagnostic results supporting the discharge/admit diagnosis, radiology results, the need for outpatient follow up, to return to the emergency department if symptoms worsen or persist or if there are any questions or concerns that arise at home. Special discussion: I discussed with the patient/guardian in detail that at this point there is no indication for admission to the hospital. It is understood, however, that if the symptoms persist or worsen the patient needs to return immediately for re-evaluation. ED course: Xray shoulder shows old left proximal humeral fracture, no acute changes. Xrays right and left knee without acute fracture or dislocation.. 10/11 04:55 Order name: XRAY Humerus LEFT rn 10/11 04:55 Order name: XRAY Knee LEFT 3 view rn 10/11 04:55 Order name: XRAY Knee RIGHT 3 view rn Administered Medications: No medications were administered Disposition: 10/12/19 06:43 Discharged to Home. Impression: Contusion of right knee, Contusion of left knee, Contusion of left upper arm, Displaced transverse fracture of shaft of humerus, left arm - Chronic. - Condition is Stable. - Discharge Instructions: Contusion, Knee Pain. - Medication Reconciliation Form, Thank You Letter, Antibiotic Education, Prescription Opioid Use form. - Follow up: Private Physician; When: As needed; Reason: Recheck today's complaints, Re-evaluation by your physician. - Problem is new. - Symptoms have improved. Signatures: Dispatcher [employer] EDMS Ta Stevens MD MD rn Barber, Rebecca RN RN rb1 Rolando Shipman RN RN jd3 Corrections: (The following items were deleted from the chart) 10:24 06:43 10/12/2019 06:43 Discharged to Home. Impression: Contusion of right knee; rb1 Contusion of left knee; Contusion of left upper arm; Displaced transverse fracture of shaft of humerus, left arm - Chronic. Condition is Stable. Forms are Medication Reconciliation Form, Thank You Letter, Antibiotic Education, Prescription Opioid Use. Follow up: Private Physician; When: As needed; Reason: Recheck today's complaints, Re-evaluation by your physician. Problem is new. Symptoms have improved. rn
--- NOTE | 2019-10-12 09:44 | RAD REPORT ---
EXAM DESCRIPTION: RAD - Knee Left 3 View - 10/12/2019 5:36 am CLINICAL HISTORY: The patient is 73 years old and is Female; PAIN TECHNIQUE: Three views of the left knee. COMPARISON: No relevant prior studies available. FINDINGS: BONES/JOINTS: A left knee prosthesis is present. The hardware is engaged without surrounding luce ncy. No acute Fracture. No dislocation. SOFT TISSUES: Unremarkable. IMPRESSION: No acute findings in the left knee. Electronically signed by: Myranda Oconnell MD 10/12/2019 5:49 AM CDT Due to temporary technical issues with the PACS/Fluency reporting system, reports are being signed by the in house radiologist as a courtesy to ensure prompt reporting. The interpreting radiologist is f ully responsible for the content of the report.
--- NOTE | 2019-10-12 09:51 | RAD REPORT ---
EXAM DESCRIPTION: RAD - Knee Right 3 View - 10/12/2019 5:37 am CLINICAL HISTORY: The patient is 73 years old and is Female; PAIN TECHNIQUE: Three views of the right knee. COMPARISON: No relevant prior studies available. FINDINGS: BONES/JOINTS: A right knee prosthesis is present. The hardware is engaged without surrou nding lucency. No acute fracture. No dislocation. SOFT TISSUES: Unremarkable. IMPRESSION: No acute findings in the right knee. Electronically signed by: Myranda Oconnell MD 10/12/2019 5:50 AM CDT Due to temporary technical issues with the PACS/Fluency reporting system, reports are being signed by the in house radiologist as a courtesy to ensure prompt reporting. The interpreting radiologist is f ully responsible for the content of the report.
--- NOTE | 2019-10-12 10:00 | RAD REPORT ---
EXAM DESCRIPTION: RAD - Humerus Left - 10/12/2019 5:37 amEXAM: CLINICAL HISTORY: The patient is 73 years old and is Female; PAIN TECHNIQUE: Frontal and lateral views of the left humerus. COMPARISON: Chest radiograph September 21, 2019 FINDINGS: BONES/JOINTS: Deformity of the proximal left humerus suggesting a subacute/healing fracture is pres ent. The appearance is similar to prior exam. No dislocation. SOFT TISSUES: Unremarkable. IMPRESSION: No acute findings in the left humerus. Electronically signed by: Mryanda Oconnell MD 10/12/2019 5:49 AM CDT Due to temporary technical issues with the PACS/Fluency reporting system, reports are being signed by the in house radiologist as a courtesy to ensure prompt reporting. The interpreting radiologist is f ully responsible for the content of the report.
[2019-10-12 10:33] VITALS: TEMP 98.4
[2019-10-12 10:42] VITALS: BP 147/74; O2SAT 98
== END 2019-10-12 10:24 | disposition home or self-care (01) ==
LOC: ER 04:50
DX: S42.322A Displaced transverse fracture of shaft of humerus, left arm, initial encounter for closed fracture (principal); S80.01XA Contusion of right knee, initial encounter; S40.022A Contusion of left upper arm, initial encounter; W19.XXXA Unspecified fall, initial encounter; Y93.01 Activity, walking, marching and hiking; Y92.9 Unspecified place or not applicable; Z79.82 Long term (current) use of aspirin; Z88.0 Allergy status to penicillin; F20.9 Schizophrenia, unspecified; F31.9 Bipolar disorder, unspecified; J44.9 Chronic obstructive pulmonary disease, unspecified
CPT/HCPCS: 99284

== ENCOUNTER 2019-10-18 16:30 | Inpatient (IN) | payer OTHER, BC ==
--- OUTSIDE RECORDS SUMMARY | 2019-10-18 16:33 | XMS REPORT ---
[...] Date Status Dosage System Date Topiramate ND 04869407117 100 MG Orally Active 1 t ablet twice a day Levothyroxine ND 34009977206 200 MCG Orally Active 1 tablet Sodium Once a day on an empty stomach in the morning Imodium A-D ND 41061272656 2 MG Orally Active 1 ta blet Four times a as needed day Melatonin ND 60535368231 3 MG Orally Active 1 tabl et Once a day at bedtime as needed with food Oxybutynin ND 60890540655 5 MG Oral twice Active 1 tablet Chloride ER a day Lisinopril ND 13141018376 2.5 MG Orally Active 1 t ablet twice a day Ipratropium-Albu ND 30700213857 0.5-2.5 (3) Active 3 ml terol MG/3ML Inhalation every 6 hrs Levothyroxine ND 31767630996 25 MCG Orally Oct , Active 1 tablet Sodium Once a day 2018 in the morning on an empty stomach Simethicone ND 23636277000 80 MG Orally Active 1 t ablet Four times a after day meals and at bedtime as needed Memantine HCl ND 21741395060 10 MG Orally Active 1 tablet Twice a day Donepezil HCl ND 36601756360 10 MG Oral Active 1 t ablet twice a day at bedtime Carbamazepine ND 74324092171 200 MG Orally Active 1 tablet once a day Claritin ND 78930938850 10 MG Orally December 08, Active 1 tab let Once a day 2018 BuPROPion HCl ER ND 21593911720 300 MG Orally Activ e 1 tablet (XL) Once a day in the morning Calcium NDC 0 Oral Active 1 tab Cipro [facility] 84135693326 500 MG Orally May 12, May 19, Active 1 tabl et every 12 hrs 2018 2018 Oxybutynin [facility] 58258624551 5 MG Orally Apr 27October Active 1 tab let Chloride Twice a day 2018 Benadryl Allergy ND 42278873468 25 MG Orally Active 1 tablet every 8 hrs as needed Imitrex ND 71692959205 50 MG Orally Apr 03, Active 1 tabl et Once a day november 2018 as needed repeat dose 1 dose in 2 hours ( max 2 doses in 24 hours) Carvedilol [facility] 05672503760 6.25 MG Orally Active 1 tablet Twice a day Promethazine HCl [facility] 84942633681 25 MG/ML Active 1 ml as Injection every needed 6 hrs Zantac [facility] 98853761470 150 MG Orally Active 1 tabl et Once a day at bedtime Duloxetine HCl [facility] 09827931020 60 MG Orally Active 1 capsule Once a day Folic Acid-Vit [facility] 18652-63809 0.8-10-0.115 MG Activ e 1 tablet B6-Vit B12 Orally Once a day Divalproex ND 37207214175 500 MG Orally Active 1 t ablet Sodium Twice a day Vitamin D [facility] 04871998207 1000 UNIT Active 1 tablet Orally Once a day Diclofenac ND 19950109110 75 MG Orally Active 1 ta blet Sodium Twice a day with food or milk Flonase [facility] 57499496935 50 MCG/DOSE December 08, Active 1 spray in Nasally Twice a 2018 each day nostril Protonix [facility] 82203043348 40 MG Orally Active 1 tabl et Once a day Atorvastatin [facility] 27625223587 20 MG Orally Active 1 tablet Calcium Once a day Trazodone HCl [facility] 70195514038 50 MG Oral Active not defined Gabapentin [facility] 13042478775 800 MG Orally Active 1 t ablet three times a day Ondansetron HCl [facility] 18112358058 4 MG Orally Active 1 tablet every 6 hrs Results Name Result Date Reference Range Unit Abnormali ty Flag Urine Dip Stick ----Appearance yellow and cloudy 20190512 ----SP. Gr 1.015 20190512 ----pH 6.0 20190512 ----Ketone NEG 20190512 ----Glucose NEG 79004085 ----Blood 2+ 20190512 ----Protein 1+ 20190512 ----Nitrite POS [id number] ----Leukocytes 3+ 20190512 Summary Purpose eClinicalWorks Submission
--- OUTSIDE RECORDS SUMMARY | 2019-10-18 16:33 | XMS REPORT ---
:1945 Author Organization [facility] t Address [address] [place] [address] Care Team Providers Name Role Phone Unavailable [...] 45.7 ug/mL 50.0 -100.0 HGBA1C - GLYCOSYLATED [id number] 14:38:00 Test Item Value Reference Range Comments GLYCOSYLATED HEMOGLOBIN (HA1C) (test code = GLYHGB) 4.7 % 4.0-6.0 URINALYSIS [id number] 13:31:00 Test Item Value Reference Range Comments [...] code = BACU) 3+ /HPF NEGATIVE URINALYSIS [id number] 13:20:00 Test Item Value Reference Range Comments [...] code = BACU) /HPF NEGATIVE BASIC METABOLIC [id number] 12:49:00 Test Item Value Reference Range Comments [...] = CA) 9.2 mg/dL 8.6-10.4 BASIC METABOLIC [id number] 12:43:00 Test Item Value Reference Range Comments [...] code = CA) mg/dL 8.6-10.4 CBC W/AUTO [id number] 12:02:00 Test Item Value Reference Range Comments [...] (test code = 149 mg/dL 35-160 [facility]-cgzgzchpxkqh imine TRIG) (NAPQI), a metab olite ofacetaminophen [...] 23.39 3X AVG 11.04~~~~~~~~~~~ ~~~~~~~~~~~~~~ ~~~~~~~~~~~~~~~~ ~~~~~~~~~~~~~~ ~~~~~[facility] olesterol Education (NCEP) Guidelines:~~~~~ ~~~~~~~~~~~~~~ ~~~~~~~~~~~~~~~~ ~~~~~~~~~~~~~~ ~~~~~~~~~~~ HDL Cholestero l<40mg/dL: HDL Cholesterol (Major risk factor for CHD)> 60mg/dL: HDL Cholesterol (Neg ative risk factor for CHD)4 0-59mg/dL: Borderline Risk LDL Cholesterol<10 0mg/dL: Desirable LDL-C [id number] -159mg/dL: Borderline High Risk LDL-C -189mg/dL: High risk LDL-C concentration HDL-LDL Choleste rol is affected by a nu mber of factors suchas s moking, age and sex.~~~~~~~~~~~~ ~~~~~~~~~~~~~~ ~~~~~~~~~~~~~~~~ ~~~~~~~~~~~~~~ ~~~~ THYROID STIMULATING [id number] 12:09:00 Test Item Value Reference Range Comments THYROID STIMULATING HORMONE (test code = TSH) 8.41 mIU/mL 0. 38-5.60
--- OUTSIDE RECORDS SUMMARY | 2019-10-18 16:34 | XMS REPORT ---
[...] Date Status Dosage System Date Protonix ND 47602416622 40 MG Orally Active 1 tabl et Once a day Benadryl Allergy ND 03044450168 25 MG Orally Active 1 tablet every 8 hrs as needed Folic Acid-Vit [facility] 77603-45950 0.8-10-0.115 MG Activ e 1 tablet B6-Vit B12 Orally Once a day Calcium NDC 0 Oral Active 1 tab Diclofenac ND 45038071218 75 MG Orally Active 1 ta blet Sodium Twice a day with food or milk Carbamazepine [facility] 00692425261 200 MG Orally Active 1 tablet once a day Ipratropium-Albu [facility] 33931164060 0.5-2.5 (3) Active 3 ml terol MG/3ML Inhalation every 6 hrs Simethicone [facility] 49918017506 80 MG Orally Active 1 t ablet Four times a after day meals and at bedtime as needed Myrbetriq [facility] 87514892370 25 MG Orally Apr 27October Active 1 tab let Once a day 2018 Levothyroxine [facility] 30970995639 25 MCG Orally Apr 27, Active 1 tablet Sodium Once a day 2018 in the morning on an empty stomach Ondansetron HCl [facility] 76107700717 4 MG Orally Active 1 tablet every 6 hrs Gabapentin ND 05995443073 800 MG Orally Active 1 t ablet three times a day Atorvastatin [facility] 76455496084 20 MG Orally Active 1 tablet Calcium Once a day Oxybutynin ND 60972806770 5 MG Oral twice Active 1 tablet Chloride ER a day Claritin [facility] 44257212313 10 MG Orally December 08, Active 1 tab let Once a day 2018 Promethazine HCl [facility] 14505896348 25 MG/ML Active 1 ml as Injection every needed 6 hrs Melatonin [facility] 67909902631 3 MG Orally Active 1 tabl et Once a day at bedtime as needed with food Carvedilol [facility] 06937916149 6.25 MG Orally Active 1 tablet Twice a day Lisinopril [facility] 33347366390 2.5 MG Orally Active 1 t ablet twice a day Donepezil HCl [facility] 53330616359 10 MG Oral Active 1 t ablet twice a day at bedtime Vitamin D [facility] 43298427976 1000 UNIT Active 1 tablet Orally Once a day Duloxetine HCl [facility] 66907692492 60 MG Orally Active 1 capsule Once a day BuPROPion HCl ER [facility] 41833596936 300 MG Orally Activ e 1 tablet (XL) Once a day in the morning Flonase [facility] 73447486057 50 MCG/DOSE December 08, Active 1 spray in Nasally Twice a 2019 each day nostril Imodium A-D [facility] 43112230174 2 MG Orally Active 1 ta blet Four times a as needed day Imitrex ND 29885298298 50 MG Orally Apr 03, Active 1 tabl et Once a day november 2018 as needed repeat dose 1 dose in 2 hours ( max 2 doses in 24 hours) Levothyroxine [facility] 77071443768 200 MCG Orally Active 1 tablet Sodium Once a day on an empty stomach in the morning Topiramate [facility] 22088292010 100 MG Orally Active 1 t ablet twice a day Divalproex [facility] 16520835201 500 MG Orally Active 1 t ablet Sodium Twice a day Zantac [facility] 54779412572 150 MG Orally Active 1 tabl et Once a day at bedtime Memantine HCl [facility] 01038883815 10 MG Orally Active 1 tablet Twice a day Trazodone HCl [facility] 82515212115 50 MG Oral Active not defined Results No Known Results Summary Purpose eClinicalWorks Submission
--- OUTSIDE RECORDS SUMMARY | 2019-10-18 16:34 | XMS REPORT ---
[...] Status Dosage System Date Date Comp Air [facility] 97330900163 - every 6 hours Jun 16, Active as directed Compressor as needed 2019 Nebulizer Results No Known Results Summary Purpose eClinicalWorks Submission
--- OUTSIDE RECORDS SUMMARY | 2019-10-18 16:35 | XMS REPORT ---
[...] Date Status Dosage System Date Melatonin ND 49461428305 3 MG Orally Active 1 tabl et Once a day at bedtime as needed with food Simethicone ND 91385073555 80 MG Orally Active 1 t ablet Four times a after day meals and at bedtime as needed Calcium NDC 0 Oral Active 1 tab Vitamin D ND 87266201926 1000 UNIT Active 1 tablet Orally Once a day Donepezil HCl ND 50440963026 10 MG Oral Active 1 t ablet twice a day at bedtime Oxybutynin ND 50260366227 5 MG Orally Apr 27October Active 1 tab let Chloride Twice a day 2018 Claritin [facility] 32378883414 10 MG Orally December 08, Active 1 tab let Once a day 2018 Protonix [facility] 46487039301 40 MG Orally Active 1 tabl et Once a day Duloxetine HCl [facility] 62746295969 60 MG Orally Active 1 capsule Once a day Zantac [facility] 11561076412 150 MG Orally Active 1 tabl et Once a day at bedtime Gabapentin ND 23891711948 800 MG Orally Active 1 t ablet three times a day Oxybutynin [facility] 04534198675 5 MG Oral twice Active 1 tablet Chloride ER a day Topiramate [facility] 22489244231 100 MG Active TAKE 1 TABLET BY MOUTH TWICE DAILY BuPROPion HCl ER [facility] 59693093012 300 MG Orally Activ e 1 tablet (XL) Once a day in the morning Imitrex ND 39070208789 50 MG Orally Apr 03, Active 1 tabl et Once a day november 2018 as needed repeat dose 1 dose in 2 hours ( max 2 doses in 24 hours) Benadryl Allergy [facility] 53893499460 25 MG Orally Active 1 tablet every 8 hrs as needed Imodium A-D [facility] 03594606620 2 MG Orally Active 1 ta blet Four times a as needed day Atorvastatin ND 63485754550 20 MG Orally Active 1 tablet Calcium Once a day Levothyroxine [facility] 11773797540 200 MCG Orally Active 1 tablet Sodium Once a day on an empty stomach in the morning Ipratropium-Albu [facility] 98955841671 0.5-2.5 (3) Active 3 ml terol MG/3ML Inhalation every 6 hrs Folic Acid-Vit [facility] 53187-52466 0.8-10-0.115 MG Activ e 1 tablet B6-Vit B12 Orally Once a day Flonase [facility] 56505746285 50 MCG/DOSE December 08, Active 1 spray in Nasally Twice a 2018 each day nostril Zofran [facility] 14947601848 4 MG Orally Jun 17, Active 1 tablet every 12 hrs 2019 prn nausea Lisinopril ND 61674298222 2.5 MG Orally Active 1 t ablet twice a day Diclofenac ND 11842027429 75 MG Orally Active 1 ta blet Sodium Twice a day with food or milk Levothyroxine [facility] 13907256886 25 MCG Orally Apr 27, Active 1 tablet Sodium Once a day 2018 in the morning on an empty stomach Memantine HCl [facility] 64851301093 10 MG Orally Active 1 tablet Twice a day Comp Air [facility] 09434297434 - every Jun 16, Active as Compressor hours as needed 2018 dire james Nebulizer Carvedilol [facility] 83623629055 6.25 MG Orally Active 1 tablet Twice a day Carbamazepine [facility] 52583302078 200 MG Orally Active 1 tablet once a day Trazodone HCl [facility] 53829278159 50 MG Oral Active not defined Divalproex [facility] 17351000063 500 MG Orally Active 1 t ablet Sodium Twice a day Ondansetron HCl [facility] 22183791415 4 MG Orally Active 1 tablet every 6 hrs Results Name Result Date Reference Range Unit Abnormali ty Flag Sjogren's Ab, Anti-SSA/-SSB ----Sjogren's <0.2 [id number] 0.0-0.9 AI Anti-SS-A ----Sjogren's <0.2 [id number] 0.0-0.9 AI Anti-SS-B EDWIN w/Reflex ----EDWIN Direct Negative [id number] Negative Comp. Metabolic Panel (14) (CMP) ----Sodium 142 32730143 134-144 mmol/L ----BUN/Creatinine 17 [id number] 12-28 Ratio ----Chloride 106 94472837 96-106 mmol/L ----Potassium 5.5 [id number] 3.5-5.2 mmol/L H ----Calcium 9.2 37086621 8.7-10.3 mg/dL ----Protein, Total 5.7 90392279 6.0-8.5 g/dL L ----Carbon Dioxide, 23 [id number] 20-29 mmol/L Total ----A/G Ratio 1.9 [id number] 1.2-2.2 ----eGFR If NonAfricn 38 [id number] >59 mL/min/1.73 L Am ----Bilirubin, Total <0.2 12897952 0.0-1.2 mg/dL ----eGFR If Africn Am 44 [id number] >59 mL/min/1.73 L ----Albumin 3.7 20190627 3.5-4.8 g/dL ----BUN 23 [id number] 8-27 mg/dL ----Globulin, Total 2.0 20190627 1.5-4.5 g/dL ----Creatinine 1.38 20190627 0.57-1.00 mg/dL H ----ALT (SGPT) 13 [id number] 0-32 IU/L ----Glucose 84 20190627 65-99 mg/dL ----Alkaline 122 20190627 39-117 IU/L H Phosphatase ----AST (SGOT) 13 [id number] 0-40 IU/L Summary Purpose eClinicalWorks Submission
--- OUTSIDE RECORDS SUMMARY | 2019-10-18 16:35 | XMS REPORT ---
[...] Status Dosage System Date Date Carvedilol ND 91490402364 6.25 MG Orally Active 1 tablet Twice a day Lisinopril ND 95518262978 2.5 MG Orally Active 1 t ablet twice a day Carbamazepine ND 76000066765 200 MG Orally Active 1 tablet once a day Ondansetron HCl [facility] 72858638761 4 MG Orally Active 1 tablet every 6 hrs Vitamin D [facility] 74633596449 1000 UNIT Active 1 tablet Orally Once a day Melatonin ND 13481561085 3 MG Orally Active 1 tabl et Once a day at bedtime as needed with food Protonix [facility] 49545910339 40 MG Orally Active 1 tabl et Once a day Imitrex ND 96747170284 50 MG Orally Apr 03, Active 1 tabl et Once a day november 2018 as needed repeat dose 1 dose in 2 hours ( max 2 doses in 24 hours) Donepezil HCl [facility] 41209474171 10 MG Oral Active 1 t ablet twice a day at bedtime Claritin [facility] 04000255130 10 MG Orally December 08, Active 1 tab let Once a day 2018 Duloxetine HCl [facility] 95850832304 60 MG Orally Active 1 capsule Once a day Benadryl Allergy [facility] 53141789392 25 MG Orally Active 1 tablet every 8 hrs as needed Simethicone [facility] 60475605049 80 MG Orally Active 1 t ablet Four times a after day meals and at bedtime as needed Imodium A-D [facility] 72340092228 2 MG Orally Active 1 ta blet Four times a as needed day Gabapentin [facility] 30051762133 800 MG Orally Active 1 t ablet three times a day Oxybutynin [facility] 03083575454 5 MG Oral twice Active 1 tablet Chloride ER a day Ipratropium-Albu [facility] 00673442732 0.5-2.5 (3) Active 3 ml terol MG/3ML Inhalation every 6 hrs Zofran [facility] 23995279083 4 MG Orally Jun 17, Active 1 tablet every 12 hrs 2018 prn nausea Trazodone HCl [facility] 36505013883 50 MG Oral Active not defined Zantac [facility] 04019603692 150 MG Orally Active 1 tabl et Once a day at bedtime Atorvastatin [facility] 51443933713 20 MG Orally Active 1 tablet Calcium Once a day Levothyroxine [facility] 81530254626 25 MCG Orally Apr 27, Active 1 tablet Sodium Once a day 2018 in the morning on an empty stomach Divalproex [facility] 76535266135 500 MG Orally Active 1 t ablet Sodium Twice a day Levothyroxine NDC 17864050027 200 MCG Orally Active 1 tablet Sodium Once a day on an empty stomach in the morning Flonase ND 26481693076 50 MCG/DOSE December 08, Active 1 spray Nasally Twice a 2019 in each day nostril Diclofenac ND 86600463366 75 MG Orally Active 1 ta blet Sodium Twice a day with food or milk BuPROPion HCl ER ND 78426874438 300 MG Orally Activ e 1 tablet (XL) Once a day in the morning Memantine HCl ND 09008256838 10 MG Orally Active 1 tablet Twice a day Promethazine HCl [facility] 63010950503 25 MG/ML Inactive 1 ml as Injection every needed 6 hrs Folic Acid-Vit [facility] 32892-80659 0.8-10-0.115 MG Activ e 1 tablet B6-Vit B12 Orally Once a day Topiramate [facility] 35914447391 100 MG Active TAKE 1 TABLET BY MOUTH TWICE DAILY Oxybutynin [facility] 00266896408 5 MG Orally Apr 27October Active 1 tab let Chloride Twice a day 2018 Calcium NDC 0 Oral Active 1 tab Results Name Result Date Reference Range Unit Abnormali ty Flag Basic Metabolic Panel ----Calcium Level 8.4 37757597 8.5-10.1 mg/dL L ----Glomerular Filtration 33 [id number] =/>90 mL L Rate ----Creatinine 1.56 19527784 0.55-1.3 mg/dL H ----BUN Blood Urea Nitrogen 34 15883497 7-18 mg/dL H ----Glucose Level 85 51968975 74-106 mg/dL ----Sodium Level 143 22721571 136-145 mmol/L ----Potassium 5.3 72623374 3.5-5.1 mmol/L H ----Chloride Level 114 31405605 98-107 mmol/L H ----Bicarbonate 26 20190616 21-32 mmol/L Summary Purpose eClinicalWorks Submission
--- NOTE | 2019-10-18 16:59 | RAD REPORT ---
EXAM DESCRIPTION: RAD - Chest Single View - 10/18/2019 4:53 pm CLINICAL HISTORY: AMS Chest pain. COMPARISON: Chest Single View dated 09/21/2019; Chest Single View dated 09/13/2019; Chest Single View dated 08/22/2019; Chest Single View dated 08/21/2019 FINDINGS: Portable technique limits examination quality. Mild interstitial pulmonary edema. The heart is mildly prominent. No displaced fractures. IMPRESSION: CHF.
[2019-10-18 17:18] LABS: Absolute Lymphocytes (CBC) 0.6 K/uL (0.7-4.9); Basophils % 0.4 % (0-1.3); Hematocrit 37.7 % (36.0-45.0); Lymphocytes % 4.8 % (15.3-44.8); MPV 9.4 fL (7.6-11.3); RBC Red Blood Cell Count 4.02 M/uL (3.86-4.86)
[2019-10-18 17:19] LABS: Protime INR 0.99
--- NOTE | 2019-10-18 17:25 | RAD REPORT ---
EXAM DESCRIPTION: CT - Head Brain Wo Cont - 10/18/2019 5:10 pm CLINICAL HISTORY: AMS Headache, drowsiness COMPARISON: Head Brain Wo Cont dated 09/15/2019; Ct Stroke Brain Wo Cont dated 08/19/2019; Head Brain Wo Cont dated 07/17/2019 TECHNIQUE: All CT scans are performed using dose optimization technique as appropriate and may inclu de automated exposure control or mA/KV adjustment according to patient size. FINDINGS: No intracranial hemorrhage, hydrocephalus or extra-axial fluid collection.No areas of brai n edema or evidence of midline shift. The paranasal sinuses and mastoids are clear. The calvarium is intact. IMPRESSION: No acute intracranial abnormality.
[2019-10-18] MEDS ORDERED: dexAMETHasone 10 MG/ML VIAL ONE (18:21)
[2019-10-18] MEDS ORDERED: CLINDAMYCIN 900MG/D5W 900 MG/50 ML IVPB IV ONE (18:22)
[2019-10-18 18:25] LABS: Albumin 3.3 g/dL (3.4-5.0); Bilirubin Total 0.5 mg/dL (0.2-1.0); Platelet Estimate ADEQ; Potassium 5.4 mmol/L (3.5-5.1); Protein, Total 8.3 g/dL (6.4-8.2); Urine White Blood Cell Casts OK
[2019-10-18 18:26] LABS: Blood Morphology Comment NOT SEEN (NOT SEEN)
[2019-10-18 18:28] LABS: Troponin (Emerg Dept Use Only) 0.67 ng/mL (0.0-0.045)
[2019-10-18 18:38] LABS: Urine Bacteria >50 /HPF (<20); Urine Culture Reflex Order NOT NEEDED
[2019-10-18] MEDS ORDERED: VANCOMYCIN/NS 1 gm 1 GM/250 ML BAG IVPB ONE (19:00)
--- NOTE | 2019-10-18 19:10 | RAD REPORT ---
EXAM DESCRIPTION: CT - Soft Tissue Neck W/Contr CLINICAL HISTORY: left facial swelling Pain and swelling left neck COMPARISON: C Spine Wo Con dated 04/21/2019; Head Brain Wo Cont dated 10/18/[address] scans are performed using dose optimization technique as appropriate and may includ e automated exposure control or mA/KV adjustment according to patient size. FINDINGS: Skin thickening and subcutaneous inflammatory fat stranding is seen along the left aspect of pain neck from the level of the left parotid gland inferiorly to the left base of the neck. The in flammation also extends along the left upper chest. The left parotid gland appears quite enlarged rel ative to the right with inflammatory fat stranding present within the gland. Mild mass effect larynx is present toward the right. No bulky adenopathy seen. Bilateral layering pleural effusions suspected. IMPRESSION: Significant enlargement and inflammatory appearance to the left parotid gland suggests p arotitis.
[2019-10-18] MEDS ORDERED: ASPIRIN 600 MG/SUPP PR ONE (19:18)
--- NOTE | 2019-10-18 19:28 | EDPHYS ---
Physician Documentation [facility] Name: Macrina Mason Age: 73 yrs Sex: Female : 1945 Arrival Date: 10/18/2019 Time: 16:31 Bed 4 Private MD: Rashaun Mariano T ED Physician Jalen Gonzalez HPI: 10/17 16:31 This 73 yrs old Female presents to ER via Unassigned with complaints of ps1 altered mental status. 16:31 patient was recently hospitalized for sepsis and sent to [place]. Went home and now ps1 disoriented per EMS. Not able to answer questions. Moving all 4. Alert. Listless. . Historical: - Allergies: 16:53 PENICILLINS; ph - Home Meds: 16:53 Breo Ellipta 200-25 mcg/dose inhalation dsdv 1 puff once daily [Active]; divalproex 250 ph mg oral TbEC 3 tabs 2 times per day [Active]; duloxetine 60 mg Oral cpDR 1 cap once daily [Active]; gabapentin 800 mg Oral tab 1 tab 3 times per day [Active]; diclofenac sodium 75 mg Oral TbEC 1 tab 2 times per day [Active]; levothyroxine 25 mcg oral tab 1 tab once daily [Active]; memantine 10 mg Oral tab 1 tab 2 times per day [Active]; flaxseed oil 1,000 mg Oral cap daily [Active]; topiramate 100 mg Oral CSpX 1 cap twice a day [Active]; donepezil 10 mg Oral tab 1 tab twice a day [Active]; propranolol 20 mg Oral tab 1 tab 2 times per day [Active]; meloxicam 7.5 mg oral tab 1 tab once daily [Active]; Toprol XL 25 mg Oral Tb24 1 tab twice a day [Active]; ondansetron 4 mg oral TbDL 1 tabs every 12 hours [Active]; furosemide 40 mg Oral tab 1 tab once daily [Active]; hydrocodone-acetaminophen 5-325 mg Oral tab 1 tab every 6 hours [Active]; olanzapine 2.5 mg oral tab 1 tabs twice a day [Active]; - PMHx: 16:53 allergies; Back pain; Bipolar disorder; COPD; DVT; Schizophrenia; UTI; ph - PSHx: 16:53 ERIKA kNEE; ph - Immunization history:: Adult Immunizations unknown. - Social history:: Smoking status: unknown. ROS: 16:36 Unable to obtain ROS due to altered mental status. ps1 Exam: 16:36 Head/Face: Normocephalic, atraumatic. Eyes: Pupils equal round and reactive to light, ps1 extra-ocular motions intact. Lids and lashes normal. Conjunctiva and sclera are non-icteric and not injected. 16:36 Constitutional: The patient appears alert, listless. 16:36 Chest/axilla: Inspection: normal. 16:36 Cardiovascular: Rate: normal, Rhythm: regular. 16:36 Respiratory: the patient does not display signs of respiratory distress, Respirations: normal. 16:36 Abdomen/GI: Inspection: abdomen appears normal, Palpation: abdomen is soft and non-tender. 16:36 Skin: Appearance: Color: normal in color. 16:36 Neuro: Orientation: Not oriented to person, place, time. Vital Signs: 16:33 BP 145 / 67; Pulse 65; Resp 18; Pulse Ox 95% on R/A; ph 17:17 Weight 86.18 kg; ph 18:06 BP 135 / 67; Pulse 55; Resp 18; Temp 98.1; Pulse Ox 100% on R/A; ph 19:28 BP 139 / 65; Pulse 69; Resp 18; Pulse Ox 100% on R/A; mg2 20:00 BP 120 / 55; Pulse 59; Resp 18; Pulse Ox 100% on R/A; mg2 20:30 BP 126 / 42; Pulse 57; Resp 18; Pulse Ox 100% on R/A; mg2 21:33 BP 121 / 64; Pulse 56; Resp 18; Temp 98(TE); Pulse Ox 100% on R/A; mg2 MDM: 16:37 Patient medically screened. ps1 19:20 ED course: IV fluid bolus of 30 mL/kg withheld due to cxray showing pulmonary edema. cp 19:24 Data reviewed: vital signs, nurses notes, lab test result(s), EKG, radiologic studies, cp CT scan, plain films. Test interpretation: by ED physician or midlevel provider: ECG. Physician consultation: Geovanni Guzmán MD was called at 19:24, was contacted at 19:24, regarding admission, to the medical/surgical unit. patient's condition. 10/17 16:36 Order name: Urine Culture ps1 10/17 16:36 Order name: Blood Culture Adult (2) [facility] 10/17 16:36 Order name: CBC with Diff; Complete Time: 18:30 [facility] 10/17 19:08 Interpretation: Normal except: WBC 13.1; MCHC 31.7; ASHLEY% 92.2; LYM% 4.8; MN% 2.6; NEUT cp A 12.0; LYMA 0.6. 10/17 16:36 Order name: Lactate; Complete Time: 17:35 [facility] 10/17 16:36 Order name: Procalcitonin; Complete Time: 18:49 [facility] 10/17 16:36 Order name: Protime (+inr); Complete Time: 17:24 [facility] 10/17 16:36 Order name: Troponin (emerg Dept Use Only); Complete Time: 18:30 [facility] 10/17 19:08 Interpretation: Abnormal: TROPED 0.67. 10/17 16:36 Order name: Urine Microscopic Only; Complete Time: 18:42 [facility] 10/17 16:36 Order name: CMP; Complete Time: 18:30 [facility] 10/17 19:08 Interpretation: Normal except: K 5.4; CO2 16; GLUC 62; BUN 20; CRE 1.45; GFR 36. 10/17 16:36 Order name: Urine Culture [facility] 10/17 16:50 Order name: CORONAVIRUS (COVID-19) [facility] 10/17 17:16 Order name: Glucose, Ancillary Testing; Complete Time: 17:17 [facility] 10/17 18:26 Order name: CBC Smear Scan; Complete Time: 18:30 [facility] 10/17 19:55 Order name: Glucose, Ancillary Testing [facility] 10/17 16:36 Order name: Chest Single View XRAY; Complete Time: 17:07 [facility] 10/17 16:36 Order name: Accucheck; Complete Time: 16:50 [facility] 10/17 16:36 Order name: Cardiac monitoring; Complete Time: 16:50 [facility] 10/17 16:36 Order name: EKG - Nurse/Tech; Complete Time: 16:50 [facility] 10/17 16:36 Order name: IV Saline Lock - Large Bore; Complete Time: 17:17 [facility] 10/17 16:36 Order name: CT Head Brain wo Cont; Complete Time: 17:26 [facility] 10/17 17:58 Order name: CT Soft Tissue Neck W/contr; Complete Time: 19:12 [facility] 10/17 20:07 Order name: Glucose, Ancillary Testing [facility] 10/17 20:19 Order name: Amylase Level [facility] 10/17 21:39 Order name: Urine Microscopic Only [facility] 10/17 16:36 Order name: Labs collected and sent; Complete Time: 17:18 ps1 10/17 16:36 Order name: O2 Per Protocol; Complete Time: 16:51 ps1 10/17 16:36 Order name: O2 Sat Monitoring; Complete Time: 16:51 ps1 10/17 16:36 Order name: Urine Dipstick-Ancillary (obtain specimen); Complete Time: 20:16 ps1 10/17 19:31 Order name: Accucheck Blood Glucose; Complete Time: 20:15 cp Administered Medications: 18:03 Not Given (Physician Discretion): NS 0.9% (30 ml/kg) 30 ml/kg IV at bolus once; Sepsis ph Protocol 19:30 Drug: Clindamycin 900 mg Route: IVPB; Infused Over: 30 mins; Site: left antecubital; mg2 21:36 Follow up: Response: No adverse reaction; IV Status: Completed infusion mg2 19:30 Drug: Decadron - Dexamethasone 10 mg Route: IVP; Site: left antecubital; mg2 21:36 Follow up: Response: No adverse reaction mg2 19:30 Drug: Aspirin Suppository 300 mg Route: VT; mg2 21:36 Follow up: Response: No adverse reaction mg2 19:42 Drug: D50W 50 ml Route: IVP; Site: left antecubital; mg2 21:35 Follow up: Response: No adverse reaction; Blood sugar is elevated mg2 19:50 Drug: vancoMYCIN 1 grams Route: IVPB; Infused Over: 2 hrs; Site: left antecubital; mg2 21:36 Follow up: Response: No adverse reaction; IV Status: Completed infusion mg2 Disposition: 19:45 Chart complete. cp 10/18 07:19 Co-signature as Attending Physician, Jalen Gonzalez MD I agree with the assessment and ps1 plan of care. Disposition: 10/18/19 19:27 Hospitalization ordered by Geovanni Guzmán for Inpatient Admission. Preliminary diagnosis are Altered mental status, unspecified, Left Parotitis, Other sepsis. - Bed requested for Telemetry/MedSurg (Inpatient). - Status is Inpatient Admission. sg - Condition is Stable. - Problem is new. - Symptoms are unchanged. Signatures: Dispatcher [employer] EDMS Jack Leos RN RN Priscilla Simon RN RN ph Kameron Vela PA PA cp [place], [facility] Jalen Gonzalez MD MD [facility] Danny Crawford RN RN mg2 Corrections: (The following items were deleted from the chart) 10/17 19:29 19:27 Hospitalization Ordered by Geovanni Guzmán MD for Inpatient Admission. Preliminary cp diagnosis is Altered mental status, unspecified; Left Parotitis. Bed requested for Telemetry/MedSurg (Inpatient). Status is Inpatient Admission. Condition is Stable. Problem is new. Symptoms are unchanged. cp 21:34 19:29 10/18/2019 19:27 Hospitalization Ordered by Geovanni Guzmán MD for Inpatient mt Admission. Preliminary diagnosis is Altered mental status, unspecified; Left Parotitis; Other sepsis. Bed requested for Telemetry/MedSurg (Inpatient). Status is Inpatient Admission. Condition is Stable. Problem is new. Symptoms are unchanged. cp 22:26 21:34 10/18/2019 19:27 Hospitalization Ordered by Geovanni Guzmán MD for Inpatient sg Admission. Preliminary diagnosis is Altered mental status, unspecified; Left Parotitis; Other sepsis. Bed requested for Telemetry/MedSurg (Inpatient). Status is Inpatient Admission. Condition is Stable. Problem is new. Symptoms are unchanged. mt
--- NOTE | 2019-10-18 19:28 | ER ---
Nurse's Notes [facility] Name: Macrina Mason Age: 73 yrs Sex: Female : 1945 Arrival Date: 10/18/2019 Time: 16:31 Bed 4 Private MD: Rashaun Mariano T Diagnosis: Altered mental status, unspecified;Left Parotitis;Other sepsis Presentation: 10/17 16:33 Chief complaint: EMS states: Pt from home, EMS called for AMS, recently d/c from group home, pt minimally responsive, drowsy and moaning, BGL 76, oral glucose given, all other VS WNL, hx of urosepsis, is unknown if pt has been appropriately taking home medications. Coronavirus screen: Patient denies a cough. Patient denies shortness of breath or difficulty breathing. Patient reports a measured and/or subjective temperature greater than 100.4F. Patient denies travel on a cruise ship or to a country the [facility] currently lists as an affected area. Patient denies contact with known and/or suspected case of COVID-19. Ebola Screen: No symptoms or risks identified at this time. Initial Sepsis Screen: Does the patient meet any 2 criteria? Altered Mental Status. Yes Does the patient have a suspected source of infection? Yes: Dysuria/Frequency/Urgency/UTI. Risk Assessment: Do you want to hurt yourself or someone else? Patient reports no desire to harm self or others. Onset of symptoms was October 18, 2019. 16:33 Method Of Arrival: EMS: [facility] 16:33 Acuity: [facility] 2 ph Historical: - Allergies: 16:53 PENICILLINS; ph - Home Meds: 16:53 Breo Ellipta 200-25 mcg/dose inhalation dsdv 1 puff once daily [Active]; divalproex 250 ph mg oral TbEC 3 tabs 2 times per day [Active]; duloxetine 60 mg Oral cpDR 1 cap once daily [Active]; gabapentin 800 mg Oral tab 1 tab 3 times per day [Active]; diclofenac sodium 75 mg Oral TbEC 1 tab 2 times per day [Active]; levothyroxine 25 mcg oral tab 1 tab once daily [Active]; memantine 10 mg Oral tab 1 tab 2 times per day [Active]; flaxseed oil 1,000 mg Oral cap daily [Active]; topiramate 100 mg Oral CSpX 1 cap twice a day [Active]; donepezil 10 mg Oral tab 1 tab twice a day [Active]; propranolol 20 mg Oral tab 1 tab 2 times per day [Active]; meloxicam 7.5 mg oral tab 1 tab once daily [Active]; Toprol XL 25 mg Oral Tb24 1 tab twice a day [Active]; ondansetron 4 mg oral TbDL 1 tabs every 12 hours [Active]; furosemide 40 mg Oral tab 1 tab once daily [Active]; hydrocodone-acetaminophen 5-325 mg Oral tab 1 tab every 6 hours [Active]; olanzapine 2.5 mg oral tab 1 tabs twice a day [Active]; - PMHx: 16:53 allergies; Back pain; Bipolar disorder; COPD; DVT; Schizophrenia; UTI; ph - PSHx: 16:53 ERIKA kNEE; ph - Immunization history:: Adult Immunizations unknown. - Social history:: Smoking status: unknown. Screenin:11 Abuse screen: Denies threats or abuse. Denies injuries from another. Nutritional ph screening: No deficits noted. Tuberculosis screening: No symptoms or risk factors identified. Fall Risk No fall in past 12 months (0 pts). No secondary diagnosis (0 pts). IV access (20 points). Ambulatory Aid- None/Bed Rest/Nurse Assist (0 pts). Gait- Weak (10 pts.). Mental Status- Overestimates/Forgets Limitations (15 pts.). Total Sandoval Fall Scale indicates High Risk Score (45 or more points). Fall prevention measures have been instituted. Side Rails Up X 2 Placed Close to Nursing Station Frequent Obs/Assessments Occuring As available patient and family educated on Fall Prevention Program and Strategies. Assessment: 17:15 General: Appears in no apparent distress. obese, Behavior is cooperative, drowsy, ph fussy, quiet, Denies fever. Pain: Denies pain. Neuro: Level of Consciousness is awake, obeys commands, confused, lethargic, Oriented to person, place, Moves all extremities. Pupils are PERRLA. Cardiovascular: Capillary refill < 3 seconds in bilateral fingers. Respiratory: Airway is patent Respiratory effort is even, unlabored, Respiratory pattern is regular, symmetrical. GI: No signs and/or symptoms were reported involving the gastrointestinal system. Derm: Skin is intact, is fragile, is thin, Skin is pink, warm \\T\\ dry. Musculoskeletal: Circulation, motion, and sensation intact. Range of motion: intact in all extremities. 18:04 Reassessment: Patient appears in no apparent distress at this time. Patient and/or ph family updated on plan of care and expected duration. Pain level reassessed. Pt awake, moaning, repeating "okay, okay" area of redness and swelling noted to L jaw area, firm and warm to touch, ERP notified of finding, additional imaging and antibiotics ordered. 18:56 Reassessment: Patient appears in no apparent distress at this time. Notified by CT that ph pt's IV infiltrated, additional IV started. 21:13 Reassessment: hospitalist came and examined the patient. mg2 21:33 Reassessment: Patient appears in no apparent distress at this time. Patient and/or mg2 family updated on plan of care and expected duration. Pain level reassessed. Vital Signs: 16:33 BP 145 / 67; Pulse 65; Resp 18; Pulse Ox 95% on R/A; ph 17:17 Weight 86.18 kg; ph 18:06 BP 135 / 67; Pulse 55; Resp 18; Temp 98.1; Pulse Ox 100% on R/A; ph 19:28 BP 139 / 65; Pulse 69; Resp 18; Pulse Ox 100% on R/A; mg2 20:00 BP 120 / 55; Pulse 59; Resp 18; Pulse Ox 100% on R/A; mg2 20:30 BP 126 / 42; Pulse 57; Resp 18; Pulse Ox 100% on R/A; mg2 21:33 BP 121 / 64; Pulse 56; Resp 18; Temp 98(TE); Pulse Ox 100% on R/A; mg2 ED Course: 16:31 Patient arrived in ED. em1 16:31 Jalen Gonzalez MD is Attending Physician. ps1 16:37 Triage completed. ph 16:37 Priscilla Simon, [place] is Primary Nurse. ph 16:47 EKG done, by ED staff, reviewed by Jalen Gonzalez MD. jp3 16:48 Patient has correct armband on for positive identification. Placed in gown. Bed in low jp3 position. Call light in reach. Side rails up X 1. Side rails up X2. Warm blanket given. Verbal reassurance given. rn admissions on. Pulse ox on. NIBP on. 16:51 Rashaun Mariano MD is Private Physician. am2 16:53 Chest Single View XRAY In Process Unspecified. EDMS 17:00 Initial lab(s) drawn, by me, sent to lab. First set of blood cultures drawn by me. ph Inserted saline lock: 20 gauge in right antecubital area, using aseptic technique. Blood collected. 17:09 CT Head Brain wo Cont In Process Unspecified. EDMS 17:14 Arm band placed on right wrist. ph 17:40 Second set of blood cultures drawn Urine collected: straight cath specimen, cloudy. ph Straight cath inserted, using sterile technique, 14 Fr. Returned cloudy urine. Patient tolerated poorly. 18:56 CT Soft Tissue Neck W/contr In Process Unspecified. EDMS 18:57 Inserted saline lock: 22 gauge in left antecubital area, using aseptic technique. ph 19:06 Kameron Vela PA is PHCP. cp 19:25 Geovanni Guzmán MD is Hospitalizing Provider. cp 19:44 Primary Nurse role handed off by Priscilla Simon, [place] sg 19:58 Danny Crawford, [place] is Primary Nurse. mg2 20:44 No provider procedures requiring assistance completed. Patient admitted, IV remains in mg2 place. 10/18 09:34 per Rafaela in the lab patient's COVID swab was sent to [facility] to get eb tested no PUI number needed at this time. Administered Medications: 10/17 18:03 Not Given (Physician Discretion): NS 0.9% (30 ml/kg) 30 ml/kg IV at bolus once; Sepsis ph Protocol 19:30 Drug: Clindamycin 900 mg Route: IVPB; Infused Over: 30 mins; Site: left antecubital; mg2 21:36 Follow up: Response: No adverse reaction; IV Status: Completed infusion mg2 19:30 Drug: Decadron - Dexamethasone 10 mg Route: IVP; Site: left antecubital; mg2 21:36 Follow up: Response: No adverse reaction mg2 19:30 Drug: Aspirin Suppository 300 mg Route: AK; mg2 21:36 Follow up: Response: No adverse reaction mg2 19:42 Drug: D50W 50 ml Route: IVP; Site: left antecubital; mg2 21:35 Follow up: Response: No adverse reaction; Blood sugar is elevated mg2 19:50 Drug: vancoMYCIN 1 grams Route: IVPB; Infused Over: 2 hrs; Site: left antecubital; mg2 21:36 Follow up: Response: No adverse reaction; IV Status: Completed infusion mg2 Outcome: 19:27 Decision to Hospitalize by Provider. cp 21:52 Admitted to Tele accompanied by tech, via stretcher, room 416, with chart, Report mg2 called to [place] Henao 21:52 Condition: stable 21:52 Instructed on the need for admit, Demonstrated understanding of instructions. 22:26 Patient left the ED. sg Signatures: Dispatcher [employer] EDMS Jack Leos, RN RN sg Jose Antonio Zhong em1 Priscilla Simon RN RN ph Kameron Vela PA PA cp Rafaela Wayne am2 Jalen Gonzalez MD MD ps1 Lesly Trevino Michele RN RN mg2 Kobe Lafleur jp3 Corrections: (The following items were deleted from the chart) 21:35 21:33 BP 121 / 64; Pulse 56bpm; Resp 18bpm; Pulse Ox 100% RA; mg2 mg2
[2019-10-18] MEDS ORDERED: D50W 25 GM/50 ML SYRINGE/VIAL IV ONE (19:43)
--- NOTE | 2019-10-18 20:48 | P.CNS ---
Date of Consult: 10/18/19 I was called by Dr Guzmán in regards to evaluation of parotitis. Patient's chart is reviewed. She was discharged about 1 month ago for AMS with UTI. She was brought today for AMS and underwent ER evaluation. She has leukocytosis and bacteruria with this admission. She has multiple chronic medical conditions and prior imaging for comparison. I reviewed her recent CT neck with contrast in conjunction with prior CT Head and MRI neck over the last 2 years. She has prominent left parotid swelling with fat stranding extending from the anabaptist to the left lower neck. There is no radiographic evidence of airway compromise. I do not see clear evidence of odontogenic infection as a factor. I spoke with Dr Guzmán regarding my findings and recommend Abx coverage to include staph, which is a common agent in parotid infection, especially in patients with chronic/recurrent hospitalizations. MDR strains need to be considered. If possible, a culture might be collected by massaging the parotid gland firmly and collection pus draining from Ivette's duct. General care for parotitis including warm compresses, firm and frequent massage, sialogogues including lemon wedges, sour candies, and ice chips are recommended. There is no sign of abscess on the scan at this time and no surgical intervention is currently indicated. I would be happy to evaluate the patient in person if needed/if patient not improving but will defer for now in light of COVID crisis. There is a left thyroid nodule as well. It appears stable from prior studies. Consideration can be made for observation vs US/FNA. Acute evaluation is not strongly indicated at this time.
--- NOTE | 2019-10-18 21:24 | P.HP ---
Certification for Inpatient Patient admitted to: Inpatient With expected LOS: >2 Midnights Practitioner: I am a practitioner with admitting privileges, knowledge of patient current condition, hospital course, and medical plan of care. Services: Services provided to patient in accordance with Admission requirements found in Title 42 Section 412.3 of the Code of Federal Regulations Patient History Date of Service: 10/18/19 Reason for admission: Altered mental status, protitis History of Present Illness: Patient is a 73-year-old female with past medical history of COPD, hypertension hyperlipidemia chronic kidney disease, dementia who was recently discharged from the hospital about a month ago for C. diff colitis and E..S. BL he coli in the urine and blood. Patient comes in for swelling of the left parotid gland. Patient's symptoms are constant moderate progressively worsening. She reports pain that is sharp. Patient is immunocompromised. Patient's workup revealed elevated white blood cell count. Her head CT scan was negative for any acute changes and CT of the neck showed left-sided protitis. Patient was not having any difficulty breathing or stridor. She was given Decadron IV vancomycin. Cultures were also obtained. Patient was referred for admission. When seen in the ER she was awake alert oriented x2 in some moderate distress. Due to patient's symptoms she has been swabbed for COVID 19 Allergies No Known Allergies Allergy (Verified 07/17/19 19:33) Home medications list reviewed: Yes Home Medications: ARIPiprazole [Abilify*] 1 tab PO DAILY 09/14/19 Divalproex Sodium [Depakote] 500 mg PO BID 09/14/19 Donepezil [Aricept*] 10 mg PO BEDTIME 09/14/19 Duloxetine HCl [Cymbalta] 1 tab PO DAILY 09/14/19 Hydrocodone 5/APAP 325 [[place] 5/325*] 1 tab PO Q6H PRN 09/14/19 Memantine HCl 1 tab PO BID 09/14/19 OLANZapine [Zyprexa*] 1 tab PO BID 09/14/19 Trazodone HCl [Desyrel] 2 tab PO BEDTIME 09/14/19 Cyanocobalamin [Vitamin B-12*] 1,000 mcg PO DAILY #90 tab 09/21/19 Ferrous Sulfate [Ferrous Sulfate*] 325 mg PO DAILY #90 tab 09/21/19 Lactobacillus Acidophilus [Acidophilus Lactobacilli] 1 each PO TID #90 capsule 09/21/19 Nystatin 5 ml PO SEECOM #1 bottle 09/21/19 Vancomycin Oral Soln [Vancocin HCl*] 5 ml PO Q6HR #1 bottle 09/21/19 - Past Medical/Surgical History Diabetic: No -: Bipolar disorder -: Schizoaffective disorder -: COPD -: History of DVT-cannot describe further/in neck -: Hypertension -: Hypothyroidism -: Hyperlipidemia -: Dementia -: Chronic pain with neuropathy -: Chronic renal disease -: Complete hysterectomy -: sb knee replacement Psychosocial/ Personal History: Patient currently at [facility]. - Family History Mother -: Heart disease, Lung disease Notes: COPD Father -: Heart disease, Diabetes Notes: quadruple bypass - Social History Smoking Status: Unknown if ever smoked Alcohol use: No CD- Drugs: No Caffeine use: No Review of Systems 10-point ROS is otherwise unremarkable Neurological: As per HPI Physical Examination - Vital Signs Temperature: 98.1 F Blood Pressure: 145/67 Pulse: 65 Respirations: 18 Pulse Ox (%): 95 - Physical Exam General: Alert, Oriented x2, Mild distress, Obese, Other (Ill-appearing elderly female) HEENT: Atraumatic, PERRLA, Mucous membr. moist/pink, Other (Left parotid gland swelling redness and tenderness), EOMI, Sclerae nonicteric Neck: JVD not distended, Other (Swelling and redness on the left side) Respiratory: Clear to auscultation bilaterally, Normal air movement, Other (No stridor or use of accessory muscles) Cardiovascular: Normal pulses, Regular rate/rhythm, Normal S1 S2, Edema Capillary refill: <2 Seconds Gastrointestinal: Normal bowel sounds, Soft and benign, Non-distended, No tenderness Musculoskeletal: No tenderness Integumentary: No rashes Neurological: Normal speech, Normal strength at 5/5 x4 extr, Normal tone, Normal affect - Studies Laboratory Data (last 24 hrs) 10/18/19 17:00: Amylase 72 10/18/19 17:00: Sodium 138, Potassium 5.4 H, BUN 20 H, Creatinine 1.45 H, Glucose 62 L, Total Bilirubin 0.5, AST 14 L, ALT 14, Alkaline Phosphatase 177 H 10/18/19 17:00: PT 11.7, INR 0.99 10/18/19 17:00: WBC 13.1 H, Hgb 12.0, Hct 37.7, Plt Count 212 Imagings Data: EXAM DESCRIPTION: CT - Soft Tissue Neck W/Contr CLINICAL HISTORY: left facial swelling Pain and swelling left neck COMPARISON: C Spine Wo Con dated 04/21/2019; Head Brain Wo Cont dated 10/18/[address] scans are performed using dose optimization technique as appropriate and may include automated exposure control or mA/KV adjustment according to patient size. FINDINGS: Skin thickening and subcutaneous inflammatory fat stranding is seen along the left aspect of pain neck from the level of the left parotid gland inferiorly to the left base of the neck. The inflammation also extends along the left upper chest. The left parotid gland appears quite enlarged relative to the right with inflammatory fat stranding present within the gland. Mild mass effect larynx is present toward the right. No bulky adenopathy seen. Bilateral layering pleural effusions suspected. IMPRESSION: Significant enlargement and inflammatory appearance to the left parotid gland suggests parotitis. EXAM DESCRIPTION: CT - Head Brain Wo Cont - 10/18/2019 5:10 pm CLINICAL HISTORY: AMS Headache, drowsiness COMPARISON: Head Brain Wo Cont dated 09/15/2019; Ct Stroke Brain Wo Cont dated 08/19/2019; Head Brain Wo Cont dated 07/17/2019 TECHNIQUE: All CT scans are performed using dose optimization technique as appropriate and may include automated exposure control or mA/KV adjustment according to patient size. FINDINGS: No intracranial hemorrhage, hydrocephalus or extra-axial fluid collection.No areas of brain edema or evidence of midline shift. The paranasal sinuses and mastoids are clear. The calvarium is intact. IMPRESSION: No acute intracranial abnormality. Assessment and Plan - Plan 73-year-old female with 1. Acute left parotitis. CT scan reviewed with the ENT Dr. Castano. No surgical intervention at this time. No abscess or stone or obstruction. Will start on broad-spectrum IV antibiotics. Patient is immunocompromised and has had multiple recent hospitalizations has chronic kidney disease. Will follow up on blood cultures. [place] [id number]. With left shift. No elevated lactate or pro calcitonin. 2. Acute metabolic encephalopathy. Rule out covid 19. Patient did have subjective fever at home. Testing has been sent out. Will place on contact in droplet precautions. Place on 4th floor. 3. Elevated troponin level. Likely secondary to above. Spoke with supervisor drying electronics utility worker Dr. Sotelo. Recent echocardiogram in August was normal. Patient denies any chest pain. Will continue to monitor. Continue aspirin. Patient not a candidate for intervention at this time. 4. Chronic kidney disease stage 3. Creatinine is slightly above baseline. Will continue to monitor. Avoid NSAIDs. Consult nephrology. Continue IV fluids 5. Hyperkalemia. Will give Kayexalate monitor 6. Hypoglycemia. Patient is not a diabetic received amp of D50. Will monitor blood glucose level. Start on D5 half NS 7. Acute cystitis. Microscopy is pending. Patient recently completed treatment for E. S. B. L E.coli. Follow up on urine culture 8. COPD chronic bronchitis. Not oxygen dependent. Stable 9. Essential hypertension. Resume home medications as appropriate. 10. Hypothyroidism. Resume home medication 11. Dementia. Alzheimer's. Without behavioral disturbance. Fall precautions 12. Bipolar disorder. Continue home medications 13. Schizoaffective disorder. Continue home medications. Recently seen by psychiatry last month. DVT prophylaxis with Lovenox renally dosed. Patient may need placement Plan to discharge in: Greater than 2 days - Advance Directives Does patient have a Living Will: No Does patient have a Durable POA for Healthcare: No - Code Status/Comfort Care Code Status Assessed: Yes
[2019-10-18] MEDS ORDERED: SOD POLYSTYREN SUL 15 GM/60 ML UCUP PO ONE (21:58)
[2019-10-18] MEDS ORDERED: CEFEPIME 2 GM VIAL IV SCH (22:07)
[2019-10-18] MEDS: INSULIN -REGULAR HUMAN 50 UNIT/0.5 ML ML SQ SCH (22:07)
[2019-10-18] MEDS ORDERED: ONDANSETRON 4 MG/2 ML VIAL IV PRN (22:07)
[2019-10-18] MEDS ORDERED: D5 0.45 NS 1,000 ML IV SCH (22:07)
[2019-10-18 23:05] VITALS: BMI 36.9
[2019-10-19 05:43] LABS: Potassium 5.5 mmol/L (3.5-5.1)
[2019-10-19] MEDS ORDERED: SOD POLYSTYREN SUL 15 GM/60 ML UCUP PO ONE (07:00)
[2019-10-19] MEDS: INSULIN -REGULAR HUMAN 50 UNIT/0.5 ML ML SQ SCH ×4 (07:30→21:00)
[2019-10-19 07:48] LABS: Absolute Lymphocytes (CBC) 0.8 K/uL (0.7-4.9); Basophils % 0.6 % (0-1.3); Hematocrit 33.7 % (36.0-45.0); Lymphocytes % 3.9 % (15.3-44.8); MPV 9.7 fL (7.6-11.3); RBC Red Blood Cell Count 3.66 M/uL (3.86-4.86)
[2019-10-19] MEDS: ENOXAPARIN 30 MG/0.3 ML SQ SCH (08:02)
[2019-10-19 08:31] LABS: Platelet Estimate ADEQ
[2019-10-19 08:32] LABS: Blood Morphology Comment NOT SEEN (NOT SEEN)
[2019-10-19] MEDS ORDERED: ASPIRIN EC 81 MG TAB PO SCH (09:00)
[2019-10-19] MEDS ORDERED: VANCOMYCIN/NS 1 gm 1 GM/250 ML BAG IVPB SCH (09:00)
--- NOTE | 2019-10-19 09:08 | CON ---
Date of Consultation: 10/19/2019 The patient admitted by Dr. Guzmán on 10/18/2019. Patient was seen on 10/19/2019. Reason For Consultation: Elevated troponin, altered mental status, and parotitis. History Of Present Illness: Ms. Mason is 73, has a history of bipolar disorder, COPD, DVT, schizop hrenia, UTI, recent sepsis. She recently had an echocardiogram which was normal. Her EKG showed sin us rhythm with left anterior hemiblock, which is chronic. She came in with a white count of 13,000, creatinine of 1.43, and evidence of parotitis. She has already been consulted by Dr. Castano I am no t really so sure why the troponin was drawn, but nevertheless, it was 0.67. No history of chest pain or cardiac symptoms. Past Medical History: As stated above. Allergies: PENICILLIN. Review of Systems: Noncontributory. Social History: Noncontributory. Family History: Noncontributory. Medications: At home include aspirin, Depakote, benazepril, duloxetine, , Lasix, Neurontin, inhaler s, Synthroid, metoprolol, and memantine. Physical Examination: Reported to be within normal limit except for her parotitis, vital signs are stable, she is afebrile, and she is in sinus rhythm. Diagnostic Data: Listed earlier. Chest x-ray showed possible congestive heart failure. Impression And Plan: Elevated troponin secondary to parotitis. May be it is still elevated from her recent sepsis. Her chest x-ray showed congestive heart failure, but there are no cardiac symptoms. I will continue her home medications including her p.o. Lasix. Antibiotics have been ordered for he r parotitis. ENT has seen her. Her echocardiogram was normal 2 months ago. Her EKG has not changed since. There are no cardiac symptoms and no clinical finding on physical examination of congestive heart failure. I would not repeat any cardiac workup. I will be available for questions if the need arises. SU/MIGUEL ÁNGEL Voice ID: [id number] Report ID: [id number]
[2019-10-19] MEDS ORDERED: D5 0.45 NS 1,000 ML IV SCH ×2 (10:28→17:58)
[2019-10-19] MEDS: SODIUM BICARB 325 MG TAB PO SCH ×2 (11:52→16:52)
--- NOTE | 2019-10-19 17:36 | P.CNS ---
Date of Consult: 10/19/19 Subjective: Patient is a 73-year-old female with past medical history of COPD, hypertension, hyperlipidemia, chronic kidney disease, and dementia. Patient was recently discharged from the hospital about a month ago for C. diff colitis in the ESBL E. coli in the urine and blood. Patient came to the hospital this admission with complaints of pain and swelling in the left parotid gland that has progressively gotten worse. I was consulted for leukocytosis. PMH: Bipolar disorder, schizoaffective disorder, COPD, history of DVT, hy pertension, hypothyroidism, hyperlipidemia, dementia, chronic pain with neuropathy, chronic renal disease Surgical history: Complete hysterectomy, bilateral knee replacement Medications: Aspirin 1 tab PO DAILY 10/18/19 Diclofenac Na [Voltaren D.r*] 75 mg PO BID PRN 10/18/19 Divalproex ER [Depakote *ER] 3 tab PO BID 10/18/19 Donepezil HCl 10 mg PO BID 10/18/19 Duloxetine HCl 60 mg PO DAILY 10/18/19 Flaxseed Oil 1 cap PO DAILY 10/18/19 Fluticasone/Vilanterol [Breo Ellipta 200-25 Mcg INH] 1 puff IN DAILY 10/18/19 Folic Acid 1 tab PO DAILY 10/18/19 Furosemide 40 mg PO DAILY 10/18/19 Gabapentin 800 mg PO TID 10/18/19 Hydrocodone 5/APAP 325 [[place] 5/325*] 1 tab PO Q6H PRN 10/18/19 Levothyroxine Sodium 25 mcg PO 0630 10/18/19 Loratadine [Claritin*] 1 tab PO DAILY PRN 10/18/19 Meloxicam [Mobic*] 7.5 mg PO DAILY 10/18/19 Memantine HCl 10 mg PO BID 10/18/19 Metoprolol Succinate 25 mg PO BID 10/18/19 OLANZapine [Zyprexa*] 2.5 mg PO BID 10/18/19 Ondansetron [Ondansetron Odt] 4 mg PO Q12H PRN 10/18/19 Propranolol HCl 20 mg PO BID 10/18/19 Topiramate 100 mg PO BID 10/18/19 Vit A,C & E/Lutein/Minerals [Healthy Eyes Tablet] 1 tab PO DAILY 10/18/19 Family history: Mother with heart disease and lung disease/COPD. Father with heart disease and diabetes Social history: Denies tobacco and alcohol use ROS: Vision: Denies change in vision HEENT: Denies difficulty swallowing CV: Denies chest pain RESP: Denies difficulty breathing, shortness of breath, cough GI: Reports diarrhea : Reports incontinence MSK: Reports uses walker at home and has had multiple falls Physical examination: Vitals: T 97.8, pulse 84, respirations 18, BP 147/56 Labs: NA 141, K 5.5, BUN 21, Creatinine 1.43, GFR 36, WBC 20.5 ROS: General: Patient alert, knows she is in the hospital but unsure of which one CV: S1, S2 HEENT: Left parotid glad swollen with mild erythema RESP: Clear to auscultation ABD: Soft, round, normoactive bowel sounds : Incontinence, using brief Extremities: mild swelling to BLLE, 1+ pedal pulses and 2+ radial pulses Skin: multiple bruises to upper and lower extremities Assessment and plan: Patient is 73-year-old female with past medical history of COPD, hypertension, hyperlipidemia, chronic kidney disease, and dementia. Patient presented to the hospital with pain and swelling of the left parotid gland. Patient recently treated for ESBL E.coli in the urine and blood. Urine cultures show 4+ Gram-negative rods, awaiting final report and sensitivity. Blood cultures show no growth to date. CT neck shows left sided protitis without evidence of abcess, stone or obstruction. Leukocytosis, patient currently being treated with IV Maxipime and IV Vancomycin, continue. Diarrhea, patient receiving kayexalate for high potassium. Patient tested for COVID-19 this admission with negative results reported by charge nurse, Chest x-ray shows evidence of CHF. Will continue to monitor for signs of infection. Thank you for consult. Patient discussed with Dr. Savage.
--- NOTE | 2019-10-19 17:56 | P.PN ---
Subjective Date of Service: 10/19/19 Chief Complaint: Altered mental status, protitis Patient seen and examined chart reviewed and case discussed with RN and ID HOSPICE HOME HEALTH AIDE. Patient COVID TESTING WAS NEGATIVE. WILL BE MOVED down to 2nd floor. Still has swelling and pain on the left parotid gland Review of Systems 10-point ROS is otherwise unremarkable ENT: As per HPI Physical Examination - Vital Signs Temperature: 97.8 F Blood Pressure: 147/56 Pulse: 84 Respirations: 18 Pulse Ox (%): 97 - Physical Exam General: Alert, Oriented x3, Mild distress, Obese, Other (Ill-appearing elderly female) HEENT: Atraumatic, PERRLA, Other (Left parotid gland erythema swelling and tenderness to palpation extending down to the neck), EOMI Neck: Supple, JVD not distended Respiratory: Clear to auscultation bilaterally, Normal air movement Cardiovascular: Regular rate/rhythm, Normal S1 S2, Edema Gastrointestinal: Normal bowel sounds, Soft and benign, Non-distended, No tenderness Musculoskeletal: No tenderness Integumentary: No rashes Neurological: Normal speech, Normal tone, Normal affect - Studies Laboratory Data (last 24 hrs) 10/18/19 17:00: Amylase 72 10/18/19 17:00: Sodium 138, Potassium 5.4 H, BUN 20 H, Creatinine 1.45 H, Glucose 62 L, Total Bilirubin 0.5, AST 14 L, ALT 14, Alkaline Phosphatase 177 H 10/18/19 17:00: WBC 13.1 H, Hgb 12.0, Hct 37.7, Plt Count 212 Microbiology Data (last 24 hrs): 10/18/19 17:05 Nasopharnyx Coronavirus COVID-19 PCR - Final Urine culture: Gram-negative rods, 4+ Medications List Reviewed: Yes Assessment And Plan - Plan 73-year-old female with 1. Acute left parotitis. CT scan reviewed with the ENT Dr. Csatano. No surgical intervention at this time. No abscess or stone or obstruction. Adjust broad-spectrum IV antibiotics. WBC count has gone up to 20,000. Will switch to meropenem. Patient is immunocompromised and has had multiple recent hospitalizations has chronic kidney disease. Will follow up on blood cultures. 2. Acute metabolic encephalopathy. covid 19 has been ruled out. Patient did have subjective fever at home. Testing has been sent out. Will move to 2nd floor unit. 3. Elevated troponin level. Likely secondary to above. Spoke with medical radiation dosimetrist [employer] worker Dr. Sotelo. Recent echocardiogram in August was normal. Patient denies any chest pain. Will continue to monitor. Continue aspirin. Patient not a candidate for intervention at this time. 4. Chronic kidney disease stage 3. Creatinine is slightly above baseline. Will continue to monitor. Avoid NSAIDs. Consult nephrology. Continue IV fluids 5. Hyperkalemia. Will give Kayexalate monitor. Repeat level this evening 6. Hypoglycemia. Patient is not a diabetic received amp of D50. Continued D5 half NS. Resolved 7. Acute cystitis. Microscopy is pending. Patient recently completed treatment for E. S. B. L E.coli. urine culture grew out 4+ gram-negative rods. Possible repeat of ESBL. SWITCH ANTIBIOTICS TO MEROPENEM 8. COPD chronic bronchitis. Not oxygen dependent. Stable 9. Essential hypertension. Resume home medications as appropriate. 10. Hypothyroidism. Resume home medication 11. Dementia. Alzheimer's. Without behavioral disturbance. Fall precautions 12. Bipolar disorder. Continue home medications 13. Schizoaffective disorder. Continue home medications. Recently seen by psychiatry last month.. 14. Patient under investigation for COVID 19. Testing came back negative. Incentive spirometer Consult Physical therapy and occupational therapy for evaluation DVT prophylaxis with Lovenox renally dosed. Patient may need placement
[2019-10-19] MEDS ORDERED: LORATADINE 10 MG TAB PO PRN (17:58)
[2019-10-19] MEDS ORDERED: VANCOMYCIN 2 GM in NA CHLORIDE 0.9% 500 ML IVPB SCH ×2 (18:00→19:30)
[2019-10-19] MEDS: D5 0.45 NS 1,000 ML IV SCH (18:52)
--- NOTE | 2019-10-19 20:48 | P.CNS ---
Date of Consult: 10/19/19 Reason for Consult: AMBAR Requesting Physician: Geovanni Guzmán Chief Complaint: Altered mental status, protitis History of Present Illness: 73 yo WF COPD presented to the ER with moderate, progressive left parotid gland swelling with associated confusion. Limited IH/ ROS due to confusion. Patient is a 73-year-old female with past medical history of COPD, hypertension hyperlipidemia chronic kidney disease, dementia who was recently discharged from the hospital about a month ago for C. diff colitis and E..S. BL he coli in the urine and blood. Patient comes in for swelling of the left parotid gland. Patient's symptoms are constant moderate progressively worsening. She reports pain that is sharp. Patient is immunocompromised. Patient's workup revealed elevated white blood cell count. Her head CT scan was negative for any acute changes and CT of the neck showed left-sided protitis. Patient was not having any difficulty breathing or stridor. She was given Decadron IV vancomycin. Cultures were also obtained. Patient was referred for admission. When seen in the ER she was awake alert oriented x2 in some moderate distress. Due to patient's symptoms she has been swabbed for COVID 19. 16:31 This 73 yrs old Female presents to ER via Unassigned with complaints of ps1 altered mental status. 16:31 patient was recently hospitalized for sepsis and sent to [place]. Went home and now ps1 disoriented per EMS. Not able to answer questions. Moving all 4. Alert. Listless. Allergies Penicillins Allergy (Verified 10/19/19 03:02) Itching/Hives/Rash Home medications list reviewed: Yes Home Medications: Aspirin 1 tab PO DAILY 10/18/19 Diclofenac Na [Voltaren D.r*] 75 mg PO BID PRN 10/18/19 Divalproex ER [Depakote *ER] 3 tab PO BID 10/18/19 Donepezil HCl 10 mg PO BID 10/18/19 Duloxetine HCl 60 mg PO DAILY 10/18/19 Flaxseed Oil 1 cap PO DAILY 10/18/19 Fluticasone/Vilanterol [Breo Ellipta 200-25 Mcg INH] 1 puff IN DAILY 10/18/19 Folic Acid 1 tab PO DAILY 10/18/19 Furosemide 40 mg PO DAILY 10/18/19 Gabapentin 800 mg PO TID 10/18/19 Hydrocodone 5/APAP 325 [[place] 5/325*] 1 tab PO Q6H PRN 10/18/19 Levothyroxine Sodium 25 mcg PO 0630 10/18/19 Loratadine [Claritin*] 1 tab PO DAILY PRN 10/18/19 Meloxicam [Mobic*] 7.5 mg PO DAILY 10/18/19 Memantine HCl 10 mg PO BID 10/18/19 Metoprolol Succinate 25 mg PO BID 10/18/19 OLANZapine [Zyprexa*] 2.5 mg PO BID 10/18/19 Ondansetron [Ondansetron Odt] 4 mg PO Q12H PRN 10/18/19 Propranolol HCl 20 mg PO BID 10/18/19 Topiramate 100 mg PO BID 10/18/19 Vit A,C & E/Lutein/Minerals [Healthy Eyes Tablet] 1 tab PO DAILY 10/18/19 - Past Medical/Surgical History Diabetic: No -: Bipolar disorder -: Schizoaffective disorder -: COPD -: History of DVT-cannot describe further/in neck -: Hypertension -: Hypothyroidism -: Hyperlipidemia -: Dementia -: Chronic pain with neuropathy -: Chronic renal disease -: Complete hysterectomy -: sb knee replacement Psychosocial/ Personal History: Patient currently at [facility]. - Family History Mother Medical History: Heart disease, Lung disease Notes: COPD Father Medical History: Heart disease, Diabetes Notes: quadruple bypass - Social History Smoking Status: Unknown if ever smoked Alcohol use: No CD- Drugs: No Caffeine use: No Place of Residence: Home Review of Systems is unable to be obtained (Confusion) General: Weakness, Malaise Neurological: Confusion Physical Examination Temp Pulse Resp BP Pulse Ox 97.8 F 84 18 147/56 H 97 10/19/19 18:48 10/19/19 18:48 10/19/19 18:48 10/19/19 18:48 10/19/19 18:48 General: In no apparent distress, Confused HEENT: Atraumatic Neck: Supple Respiratory: Clear to auscultation bilaterally Cardiovascular: No edema, Regular rate/rhythm Gastrointestinal: Soft and benign, Non-distended Musculoskeletal: No clubbing, No contractures Integumentary: No rashes, No cyanosis Neurological: Normal speech Laboratory Data (last 24 hrs) 10/18/19 17:00: Amylase 72 Imagings Data: EXAM DESCRIPTION: RAD - Chest Single View - 10/18/2019 4:53 pm CLINICAL HISTORY: AMS Chest pain. COMPARISON: Chest Single View dated 09/21/2019; Chest Single View dated 09/13/2019; Chest Single View dated 08/22/2019; Chest Single View dated 08/21/2019 FINDINGS: Portable technique limits examination quality. Mild interstitial pulmonary edema. The heart is mildly prominent. No displaced fractures. IMPRESSION: CHF. Conclusions/Impression: A/ AMBAR likely CRS. Hyperkalemia. Acidosis. CKD III. Hyperglycemia. HTN with CKD. Anemia in chronic illness. Toxic metabolic encephalopathy. Acute cystitis. P/ Continue current POC and Medications. Gentle IVF. Continue abx. Monitor vanco level. Start oral bicarb. Agree with kayexalate. No NSAIDs. AM labs. Daily weight. Thank you kindly for the consultation.
[2019-10-19] MEDS ORDERED: HOME MED 1 EA UNK (Gabapentin [Gabapentin] 300 MG) PO SCH (21:00)
[2019-10-19] MEDS: LACTOBACILLUS/ACIDOPHILUS TAB PO SCH ×2 (21:00→21:25)
[2019-10-19] MEDS ORDERED: HOME MED 1 EA UNK (Donepezil Hcl [Donepezil Hcl] 10 MG) PO SCH (21:00)
[2019-10-19] MEDS ORDERED: CEFEPIME/SWI 2gm 2 GM/20 ML SYR IV SCH (21:00)
[2019-10-19] MEDS: DIVALPROEX ER 250 MG TAB PO SCH (21:24)
[2019-10-19] MEDS: METOPROLOL XL 25 MG TAB PO SCH (21:25)
[2019-10-19] MEDS: MEMANTINE HCL 10 MG TABLET PO SCH (21:25)
[2019-10-19] MEDS: DONEPEZIL HCL 5 MG TAB PO SCH (21:25)
[2019-10-19] MEDS: TOPIRAMATE 100 MG TAB PO SCH (21:27)
[2019-10-19] MEDS: OLANZapine 2.5 MG TAB PO SCH (21:28)
[2019-10-19] MEDS: Meropenem 1,000 MG in NA CHLORIDE 0.9% 100 ML IV SCH (22:25)
[2019-10-19] MEDS: ACETAMINOPHEN 500 MG TAB PO PRN (23:27)
[2019-10-20] MEDS ORDERED: Meropenem 1000 MG/VIAL IV SCH (01:00)
[2019-10-20] MEDS: D5 0.45 NS 1,000 ML IV SCH (01:54)
[2019-10-20] MEDS: LEVOTHYROXINE SOD 0.025 MG TAB PO SCH (05:49)
[2019-10-20] MEDS: ACETAMINOPHEN 500 MG TAB PO PRN ×2 (06:06→17:11)
[2019-10-20 06:21] LABS: Albumin 2.6 g/dL (3.4-5.0); Bilirubin Total 0.5 mg/dL (0.2-1.0); Magnesium 2.1 mg/dL (1.8-2.4); Potassium 3.4 mmol/L (3.5-5.1); Protein, Total 6.5 g/dL (6.4-8.2); Uric Acid 9.9 mg/dL (2.6-6.0)
[2019-10-20 06:46] LABS: Absolute Lymphocytes (CBC) 1.5 K/uL (0.7-4.9); Basophils % 0.3 % (0-1.3); Hematocrit 30.8 % (36.0-45.0); Lymphocytes % 12.3 % (15.3-44.8); MPV 8.6 fL (7.6-11.3); RBC Red Blood Cell Count 3.37 M/uL (3.86-4.86)
[2019-10-20] MEDS: INSULIN -REGULAR HUMAN 50 UNIT/0.5 ML ML SQ SCH ×4 (07:30→21:00)
--- NOTE | 2019-10-20 08:59 | P.PN ---
Subjective Date of Service: 10/20/19 Chief Complaint: Altered mental status, protitis Subjective: Improving Patient seen and examined chart reviewed and case discussed with RN. Still has swelling and pain on the left parotid gland but is improving Review of Systems 10-point ROS is otherwise unremarkable ENT: As per HPI Physical Examination - Vital Signs Temperature: 98.1 F Blood Pressure: 131/61 Pulse: 72 Respirations: 16 Pulse Ox (%): 94 - Physical Exam General: Alert, In no apparent distress, Oriented x3, Obese, Other (Ill- appearing elderly female) HEENT: Atraumatic, PERRLA, Other (Left parotid gland swelling and redness improving), EOMI Neck: Supple, JVD not distended Respiratory: Clear to auscultation bilaterally, Normal air movement Cardiovascular: Regular rate/rhythm, Normal S1 S2, Edema Gastrointestinal: Normal bowel sounds, Soft and benign, Non-distended, No tenderness Musculoskeletal: No tenderness Integumentary: No rashes Neurological: Normal speech, Normal tone, Cranial nerves 3-12 intact, Normal affect - Studies Laboratory Last Values WBC 13.1 K/uL (4.3-10.9) H 10/18/19 17:00 RBC 4.02 M/uL (3.86-4.86) 10/18/19 17:00 Hgb 12.0 g/dL (12.0-15.0) 10/18/19 17:00 Hct 37.7 % (36.0-45.0) 10/18/19 17:00 MCV 93.7 fL (80-100) 10/18/19 17:00 MCH 29.7 pg (27.0-35.0) 10/18/19 17:00 MCHC 31.7 g/dL (32.0-36.0) L 10/18/19 17:00 RDW 13.8 % (12.1-15.2) 10/18/19 17:00 Plt Count 212 K/uL (152-406) 10/18/19 17:00 MPV 9.4 fL (7.6-11.3) 10/18/19 17:00 Neutrophils % 92.2 % (41.7-73.7) H 10/18/19 17:00 Lymphocytes % 4.8 % (15.3-44.8) L 10/18/19 17:00 Monocytes % 2.6 % (3.3-12.3) L 10/18/19 17:00 Eosinophils % 0.0 % (0-4.4) 10/18/19 17:00 Basophils % 0.4 % (0-1.3) 10/18/19 17:00 Absolute Neutrophils 12.0 K/uL (1.8-8.0) H 10/18/19 17:00 Absolute Lymphocytes 0.6 K/uL (0.7-4.9) L 10/18/19 17:00 Absolute Monocytes 0.3 K/uL (0.1-1.3) 10/18/19 17:00 Absolute Eosinophils 0.0 K/uL (0-0.5) 10/18/19 17:00 Absolute Basophils 0.1 K/uL (0-0.5) 10/18/19 17:00 Morphology Comment Not seen (NOT SEEN) 10/18/19 17:00 PT 11.7 SECONDS (9.5-12.5) 10/18/19 17:00 INR 0.99 10/18/19 17:00 Sodium 138 mmol/L (136-145) 10/18/19 17:00 Potassium 5.4 mmol/L (3.5-5.1) H 10/18/19 17:00 Chloride 107 mmol/L (98-107) 10/18/19 17:00 Carbon Dioxide 16 mmol/L (21-32) L 10/18/19 17:00 BUN 20 mg/dL (7-18) H 10/18/19 17:00 Creatinine 1.45 mg/dL (0.55-1.3) H 10/18/19 17:00 Estimated GFR 36 mL/min (=/>90) L 10/18/19 17:00 Glucose 62 mg/dL (74-106) L 10/18/19 17:00 POC Glucose 114 mg/dl (65-120) 10/18/19 19:55 Lactic Acid 0.9 mmol/L (0.4-2.0) 10/18/19 17:00 Calcium 9.4 mg/dL (8.5-10.1) 10/18/19 17:00 Total Bilirubin 0.5 mg/dL (0.2-1.0) 10/18/19 17:00 AST 14 U/L (15-37) L 10/18/19 17:00 ALT 14 U/L (12-78) 10/18/19 17:00 Alkaline Phosphatase 177 U/L (45-117) H 10/18/19 17:00 Rapid Troponin I 0.67 ng/mL (0.0-0.045) H* 10/18/19 17:00 Serum Total Protein 8.3 g/dL (6.4-8.2) H 10/18/19 17:00 Albumin 3.3 g/dL (3.4-5.0) L 10/18/19 17:00 Globulin 5.0 g/dL (2.3-3.5) H 10/18/19 17:00 Albumin/Globulin Ratio 0.7 (1.1-1.8) L 10/18/19 17:00 Amylase 72 U/L (25-115) 10/18/19 17:00 Procalcitonin 0.06 ng/mL (<0.50) 10/18/19 17:00 Urine RBC 5-10 /HPF (NONE SEEN) H 10/18/19 17:45 Urine WBC >50 /HPF (<5) H 10/18/19 17:45 Ur Squamous Epith Cells 5-10 /HPF (NONE SEEN) H 10/18/19 17:45 Urine Bacteria >50 /HPF (<20) H 10/18/19 17:45 Urine Culture Reflexed Not needed 10/18/19 17:45 Microbiology Data (last 24 hrs): 10/18/19 17:45 Catheterized Urine [place] Count - Final >100,000 CFU/ML. 10/18/19 17:45 Catheterized Urine - Final Klebsiella Oxytoca 10/18/19 17:05 Nasopharnyx Coronavirus COVID-19 PCR - Final Medications List Reviewed: Yes Assessment And Plan - Plan 73-year-old female with 1. Acute left parotitis. CT scan reviewed with the ENT Dr. Castano. No surgical intervention at this time. No abscess or stone or obstruction. Adjust broad-spectrum IV antibiotics. WBC count trending down. Patient is immunocompromised and has had multiple recent hospitalizations has chronic kidney disease. Will follow up on blood cultures. Clinically improving. patient recommended to continue secretagouges and to massage the gland. 2. Acute metabolic encephalopathy. Resolved now back to baseline does have mild dementia. covid 19 has been ruled out. Patient did have subjective fever at home. Testing has been sent out. 3. Elevated troponin level. Likely secondary to above. Spoke with [facility] rn Dr. Sotelo. Recent echocardiogram in August was normal. Patient denies any chest pain. Will continue to monitor. Continue aspirin. Patient not a candidate for intervention at this time. 4. Chronic kidney disease stage 3. Creatinine is slightly above baseline. Will continue to monitor. Avoid NSAIDs. Consult nephrology. stop IV fluids. 5. Hyperkalemia. Will give Kayexalate monitor. Corrected 6. Hypoglycemia. Patient is not a diabetic received amp of D50. Resolved 7. Acute cystitis. Microscopy is pending. Patient recently completed treatment for E. S. B. L E.coli. urine culture showing Klebsiella. 8. COPD chronic bronchitis. Not oxygen dependent. Stable 9. Essential hypertension. Resume home medications as appropriate. 10. Hypothyroidism. Resume home medication 11. Dementia. Alzheimer's. Without behavioral disturbance. Fall precautions 12. Bipolar disorder. Continue home medications 13. Schizoaffective disorder. Continue home medications. Recently seen by psychiatry last month.. 14. Patient under investigation for COVID 19. Testing came back negative. Incentive spirometer Consult Physical therapy and occupational therapy for evaluation DVT prophylaxis with Lovenox renally dosed. Patient may need placement. Likely Dc in the next 24 hr depending on clinical improvement
[2019-10-20] MEDS ORDERED: HOME MED 1 EA UNK (Fluticasone/Vilanterol [Breo Ellipta 200-25 Mcg Inh] 1 PUFF) IN SCH (09:00)
[2019-10-20] MEDS: FOLIC ACID PO SCH (09:00)
[2019-10-20] MEDS ORDERED: FUROSEMIDE 20 MG TABLET PO SCH (09:00)
[2019-10-20] MEDS ORDERED: FUROSEMIDE 40 MG TABLET PO SCH (09:00)
[2019-10-20] MEDS ORDERED: HOME MED 1 EA UNK (Duloxetine Hcl [Duloxetine Hcl] 60 MG) PO SCH (09:00)
[2019-10-20] MEDS: SODIUM BICARB 325 MG TAB PO SCH ×3 (09:25→16:50)
[2019-10-20] MEDS: DULOXETINE 30 MG CAP PO SCH (09:25)
[2019-10-20] MEDS: LACTOBACILLUS/ACIDOPHILUS TAB PO SCH ×3 (09:25→20:58)
[2019-10-20] MEDS: TOPIRAMATE 100 MG TAB PO SCH ×2 (09:26→20:58)
[2019-10-20] MEDS: GABAPENTIN 300 MG CAP PO SCH ×3 (09:26→20:59)
[2019-10-20] MEDS: MEMANTINE HCL 10 MG TABLET PO SCH ×2 (09:26→20:58)
[2019-10-20] MEDS: METOPROLOL XL 25 MG TAB PO SCH ×2 (09:26→20:58)
[2019-10-20] MEDS: ASPIRIN 325 MG TAB PO SCH (09:26)
[2019-10-20] MEDS: DIVALPROEX ER 250 MG TAB PO SCH ×2 (09:26→20:58)
[2019-10-20] MEDS: DONEPEZIL HCL 5 MG TAB PO SCH ×2 (09:27→21:00)
[2019-10-20] MEDS: ENOXAPARIN 30 MG/0.3 ML SQ SCH (09:27)
[2019-10-20] MEDS: OLANZapine 2.5 MG TAB PO SCH ×2 (09:27→20:58)
--- NOTE | 2019-10-20 10:21 | P.PN ---
Date of Service: 10/20/19 Subjective: Patient is a 73-year-old female with past medical history of COPD, hypertension, hyperlipidemia, chronic kidney disease, and dementia. Patient was recently discharged from the hospital about a month ago for C. diff colitis in the ESBL E. coli in the urine and blood. Patient came to the hospital this admission with complaints of pain and swelling in the left parotid gland that has progressively gotten worse. The patient reports difficulty eating due to pain. Denies difficulty breathing. The patient reports diarrhea. Physical examination: Vitals: T 98.3, pulse 65, respirations 16, BP 128/60, O2 96% Labs: NA 145, K 3.4, BUN 24, Creatinine 1.47, GFR 35, Uric acid 9.9, WBC 12.5, Albumin 2.6 ROS: General: Patient alert, knows she is in the hospital but unsure of which one CV: S1, S2 HEENT: Left parotid glad swollen with mild erythema RESP: Clear to auscultation ABD: Soft, round, normoactive bowel sounds : Incontinence, using brief Extremities: mild swelling to BLLE, 1+ pedal pulses and 2+ radial pulses Skin: multiple bruises to upper and lower extremities Assessment and plan: Patient presented to the hospital with pain and swelling of the left parotid gland. Urine cultures show Klebsiella Oxytoca, continue current antibiotics while in hospital. Blood cultures show no growth to date. CT neck shows left sided protitis without evidence of abcess, stone or obstruction, no surgical intervention. Leukocytosis, patient currently being treated with IV Maxipime and IV Vancomycin, continue while in the hospital. Diarrhea, patient receiving kayexalate for high potassium. Patient tested for COVID-19 this admission with negative results reported by charge nurse, Chest x-ray shows evidence of CHF. On discharge, recommend to change antibiotic to Augmentin for total of two weeks. Will continue to monitor for signs of infection. Patient discussed with Dr. Savage.
[2019-10-20] MEDS: Meropenem 1,000 MG in NA CHLORIDE 0.9% 100 ML IV SCH ×2 (10:53→20:57)
--- NOTE | 2019-10-20 12:06 | EKG ---
Test Date: 2019-10-18 Test Time: 16:41:15 [employer]: SUPRIYA MEASUREMENT RESULTS: Intervals: Rate: 69 VA: QRSD: 104 QT: 432 QTc: 462 [place]: P: VA: QRS: 12 T: 10 INTERPRETIVE STATEMENTS: Accelerated Junctional rhythm Anterior infarct, age undetermined Abnormal ECG Compared to ECG 09/16/2019 18:08:40 Accelerated junctional rhythm now present Sinus tachycardia no longer present Left anterior fascicular block no longer present T-wave abnormality no longer present Possible ischemia no longer present Myocardial infarct finding still present Electronically Signed On 10-20-19 12:03:21 CDT by [place] Sotelo
[2019-10-20] MEDS: VANCOMYCIN 2 GM in NA CHLORIDE 0.9% 500 ML IVPB SCH (17:12)
[2019-10-20] MEDS ORDERED: POTASS/SODIUM PHOSPHATE 1 PKT POWD.PACK PO ONE (20:41)
--- NOTE | 2019-10-20 20:46 | P.PN ---
Date of Service: 10/20/19 Vital Signs Temp Pulse Resp BP Pulse Ox 97.9 F 59 16 123/56 L 94 10/20/19 16:00 10/20/19 16:00 10/20/19 16:00 10/20/19 16:00 10/20/19 16:00 Medications Acetaminophen (Tylenol -Extra Strength) 500 mg PO Q6H PRN PRN Reason: Pain scale 2-4 (Mild) Stop: 11/17/19 22:08 Last Admin: 10/20/19 17:11 Dose: 500 mg Documented by: Aspirin (Abdulaziz Aspirin) 325 mg PO DAILY [facility] Stop: 11/19/19 09:01 Last Admin: 10/20/19 09:26 Dose: 325 mg Documented by: Divalproex Sodium (Depakote *Er*) 750 mg PO BID [facility] Stop: 11/18/19 21:01 Last Admin: 10/20/19 09:26 Dose: 750 mg Documented by: Donepezil HCl (Aricept) 10 mg PO BID [facility] Stop: 11/18/19 21:01 Last Admin: 10/20/19 09:27 Dose: 10 mg Documented by: Duloxetine HCl (Cymbalta Delayed Release Pellets) 60 mg PO DAILY [facility] Stop: 11/19/19 09:01 Last Admin: 10/20/19 09:25 Dose: 60 mg Documented by: Enoxaparin Sodium (Lovenox 30 Mg Inj) 30 mg SQ DAILY [facility] Stop: 11/18/19 09:01 Last Admin: 10/20/19 09:27 Dose: 30 mg Documented by: Gabapentin (Neurontin) 300 mg PO TID [facility] Stop: 11/19/19 09:01 Last Admin: 10/20/19 14:00 Dose: 300 mg Documented by: Home Med (Fluticasone/Vilanterol [Breo Ellipta 200-25 Mcg Inh]) 1 puff IN DAILY [facility] Stop: 11/19/19 09:01 Home Med (Folic Acid [Folic Acid]) 1 tab PO DAILY [facility] Stop: 11/19/19 09:01 Last Admin: 10/20/19 09:00 Dose: Not Given Documented by: Vancomycin HCl 2 gm/ Sodium (Chloride) 500 mls @ 250 mls/hr IVPB Q24H [facility] Stop: 11/19/19 18:01 Last Admin: 10/20/19 17:12 Dose: 500 mls Documented by: Meropenem 1,000 mg/ Sodium (Chloride) 100 mls @ 100 mls/hr IV Q12HR [facility] Stop: 11/18/19 21:01 Last Admin: 10/20/19 10:53 Dose: 100 mls Documented by: Insulin Human Regular (Novolin -R) 0 unit SQ ACHS [facility]; Protocol Stop: 11/17/19 22:08 Last Admin: 10/20/19 16:30 Dose: Not Given Documented by: Lactobacillus Acidoph/Bulgaricus (Lactinex) 1 tab PO TID [facility] Stop: 11/18/19 18:57 Last Admin: 10/20/19 14:22 Dose: 1 tab Documented by: Levothyroxine Sodium (Synthroid) 0.025 mg PO 0630 [facility] Stop: 11/19/19 06:31 Last Admin: 10/20/19 05:49 Dose: 0.025 mg Documented by: Loratadine (Claritin) 10 mg PO DAILY PRN PRN Reason: ALLERGIES Stop: 11/18/19 17:59 Memantine (Namenda) 10 mg PO BID [facility] Stop: 11/18/19 21:01 Last Admin: 10/20/19 09:26 Dose: 10 mg Documented by: Metoprolol Succinate (Toprol Xl) 25 mg PO BID [facility] Stop: 11/18/19 21:01 Last Admin: 10/20/19 09:26 Dose: 25 mg Documented by: Olanzapine (Zyprexa) 2.5 mg PO BID [facility] Stop: 11/18/19 21:01 Last Admin: 10/20/19 09:27 Dose: 2.5 mg Documented by: Ondansetron HCl (Zofran) 4 mg IV Q4H PRN PRN Reason: NAUSEA / VOMITING Stop: 11/17/19 22:08 Potassium Phos/Sodium Phos (Neutra-Phos Pwd) 2 pkt PO ONCE ONE Stop: 10/20/19 20:42 Sodium Bicarbonate (Sodium Bicarb 325 Mg) 650 mg PO TIDWM [facility] Stop: 11/18/19 12:01 Last Admin: 10/20/19 16:50 Dose: 650 mg Documented by: Sodium Chloride (Normal Saline Flush) 10 ml IV BID [facility] Stop: 11/17/19 22:08 Last Admin: 10/20/19 09:27 Dose: 10 ml Documented by: Topiramate (Topamax) 100 mg PO BID [facility] Stop: 11/18/19 21:01 Last Admin: 10/20/19 09:26 Dose: 100 mg Documented by: Microbiology Results 10/18/19 17:45 Catheterized Urine [place] Count - Final >100,000 CFU/ML. 10/18/19 17:45 Catheterized Urine - Final Klebsiella Oxytoca 10/18/19 17:40 Blood - Blood Aerobic Blood Culture - Preliminary No growth in 24 hours. 10/18/19 17:40 Blood - Blood Anaerobic Blood Culture - Preliminary No growth in 24 hours. 10/18/19 17:00 Blood - Blood Aerobic Blood Culture - Preliminary No growth in 24 hours. 10/18/19 17:00 Blood - Blood Anaerobic Blood Culture - Preliminary No growth in 24 hours. 10/18/19 17:05 Nasopharnyx Coronavirus COVID-19 PCR - Final Assessment/ Plan: Nephrology Limited IH/ ROS due to confusion. CPS stable without CP or SOB. No acute events overnight. Vitals, medications, blood work and imaging reviewed in the chart. General: In no apparent distress, Confused HEENT: Atraumatic Neck: Supple Respiratory: Clear to auscultation bilaterally Cardiovascular: No edema, Regular rate/rhythm Gastrointestinal: Soft and benign, Non-distended Musculoskeletal: No clubbing, No contractures Integumentary: No rashes, No cyanosis Neurological: Normal speech Laboratory Data (last 24 hrs) 10/18/19 17:00: Amylase 72 Imagings Data: EXAM DESCRIPTION: RAD - Chest Single View - 10/18/2019 4:53 pm CLINICAL HISTORY: AMS Chest pain. COMPARISON: Chest Single View dated 09/21/2019; Chest Single View dated 09/13/2019; Chest Single View dated 08/22/2019; Chest Single View dated 08/21/2019 FINDINGS: Portable technique limits examination quality. Mild interstitial pulmonary edema. The heart is mildly prominent. No displaced fractures. IMPRESSION: CHF. Conclusions/Impression: A/ AMBAR likely CRS. Hyperkalemia. Acidosis. CKD III. Hyperglycemia. HTN with CKD. Anemia in chronic illness. Toxic metabolic encephalopathy. Acute cystitis. P/ Continue current POC and Medications. Continue abx. Monitor vanco level. Give neutra-phos. Encourage free water intake. No NSAIDs. AM labs. Daily weight.
[2019-10-21] MEDS: ACETAMINOPHEN 500 MG TAB PO PRN ×4 (03:32→23:31)
[2019-10-21 06:08] LABS: Absolute Lymphocytes (CBC) 0.9 K/uL (0.7-4.9); Basophils % 0.5 % (0-1.3); Hematocrit 28.5 % (36.0-45.0); Lymphocytes % 10.3 % (15.3-44.8); MPV 8.5 fL (7.6-11.3); RBC Red Blood Cell Count 3.12 M/uL (3.86-4.86)
[2019-10-21] MEDS: LEVOTHYROXINE SOD 0.025 MG TAB PO SCH (06:10)
[2019-10-21 06:47] LABS: Albumin 2.4 g/dL (3.4-5.0); Bilirubin Total 0.3 mg/dL (0.2-1.0); Phosphorus 2.3 mg/dL (2.5-4.9); Protein, Total 6.1 g/dL (6.4-8.2)
[2019-10-21 06:56] LABS: Potassium 2.7 mmol/L (3.5-5.1)
[2019-10-21] MEDS ORDERED: POTASSIUM CL SA 10 MEQ TAB PO ONE ×2 (06:58→09:00)
[2019-10-21] MEDS: INSULIN -REGULAR HUMAN 50 UNIT/0.5 ML ML SQ SCH ×4 (07:30→21:00)
--- NOTE | 2019-10-21 08:03 | P.PN ---
Subjective Date of Service: 10/21/19 Chief Complaint: Altered mental status, protitis Subjective: Improving Patient seen and examined chart reviewed and case discussed with RN and Dr. Savage. Still has swelling and pain on the left parotid gland but is improving. Patient work with physical therapy yesterday however feeling weak Review of Systems 10-point ROS is otherwise unremarkable ENT: As per HPI Physical Examination - Vital Signs Temperature: 97.7 F Blood Pressure: 159/62 Pulse: 69 Respirations: 18 Pulse Ox (%): 96 - Physical Exam General: Alert, In no apparent distress, Oriented x3, Obese, Other (Elderly female) HEENT: Atraumatic, PERRLA, Other (Left parotid gland swelling erythema has improved significantly. TTP), EOMI Neck: Supple, JVD not distended Respiratory: Clear to auscultation bilaterally, Normal air movement Cardiovascular: Regular rate/rhythm, Normal S1 S2, Edema Gastrointestinal: Normal bowel sounds, Soft and benign, Non-distended, No tenderness Musculoskeletal: No tenderness Integumentary: No rashes Neurological: Normal speech, Normal tone, Cranial nerves 3-12 intact, Normal affect - Studies Laboratory Last Values WBC 13.1 K/uL (4.3-10.9) H 10/18/19 17:00 RBC 4.02 M/uL (3.86-4.86) 10/18/19 17:00 Hgb 12.0 g/dL (12.0-15.0) 10/18/19 17:00 Hct 37.7 % (36.0-45.0) 10/18/19 17:00 MCV 93.7 fL (80-100) 10/18/19 17:00 MCH 29.7 pg (27.0-35.0) 10/18/19 17:00 MCHC 31.7 g/dL (32.0-36.0) L 10/18/19 17:00 RDW 13.8 % (12.1-15.2) 10/18/19 17:00 Plt Count 212 K/uL (152-406) 10/18/19 17:00 MPV 9.4 fL (7.6-11.3) 10/18/19 17:00 Neutrophils % 92.2 % (41.7-73.7) H 10/18/19 17:00 Lymphocytes % 4.8 % (15.3-44.8) L 10/18/19 17:00 Monocytes % 2.6 % (3.3-12.3) L 10/18/19 17:00 Eosinophils % 0.0 % (0-4.4) 10/18/19 17:00 Basophils % 0.4 % (0-1.3) 10/18/19 17:00 Absolute Neutrophils 12.0 K/uL (1.8-8.0) H 10/18/19 17:00 Absolute Lymphocytes 0.6 K/uL (0.7-4.9) L 10/18/19 17:00 Absolute Monocytes 0.3 K/uL (0.1-1.3) 10/18/19 17:00 Absolute Eosinophils 0.0 K/uL (0-0.5) 10/18/19 17:00 Absolute Basophils 0.1 K/uL (0-0.5) 10/18/19 17:00 Morphology Comment Not seen (NOT SEEN) 10/18/19 17:00 PT 11.7 SECONDS (9.5-12.5) 10/18/19 17:00 INR 0.99 10/18/19 17:00 Sodium 138 mmol/L (136-145) 10/18/19 17:00 Potassium 5.4 mmol/L (3.5-5.1) H 10/18/19 17:00 Chloride 107 mmol/L (98-107) 10/18/19 17:00 Carbon Dioxide 16 mmol/L (21-32) L 10/18/19 17:00 BUN 20 mg/dL (7-18) H 10/18/19 17:00 Creatinine 1.45 mg/dL (0.55-1.3) H 10/18/19 17:00 Estimated GFR 36 mL/min (=/>90) L 10/18/19 17:00 Glucose 62 mg/dL (74-106) L 10/18/19 17:00 POC Glucose 114 mg/dl (65-120) 10/18/19 19:55 Lactic Acid 0.9 mmol/L (0.4-2.0) 10/18/19 17:00 Calcium 9.4 mg/dL (8.5-10.1) 10/18/19 17:00 Total Bilirubin 0.5 mg/dL (0.2-1.0) 10/18/19 17:00 AST 14 U/L (15-37) L 10/18/19 17:00 ALT 14 U/L (12-78) 10/18/19 17:00 Alkaline Phosphatase 177 U/L (45-117) H 10/18/19 17:00 Rapid Troponin I 0.67 ng/mL (0.0-0.045) H* 10/18/19 17:00 Serum Total Protein 8.3 g/dL (6.4-8.2) H 10/18/19 17:00 Albumin 3.3 g/dL (3.4-5.0) L 10/18/19 17:00 Globulin 5.0 g/dL (2.3-3.5) H 10/18/19 17:00 Albumin/Globulin Ratio 0.7 (1.1-1.8) L 10/18/19 17:00 Amylase 72 U/L (25-115) 10/18/19 17:00 Procalcitonin 0.06 ng/mL (<0.50) 10/18/19 17:00 Urine RBC 5-10 /HPF (NONE SEEN) H 10/18/19 17:45 Urine WBC >50 /HPF (<5) H 10/18/19 17:45 Ur Squamous Epith Cells 5-10 /HPF (NONE SEEN) H 10/18/19 17:45 Urine Bacteria >50 /HPF (<20) H 10/18/19 17:45 Urine Culture Reflexed Not needed 10/18/19 17:45 Microbiology Data (last 24 hrs): 10/18/19 17:45 Catheterized Urine [place] Count - Final >100,000 CFU/ML. 10/18/19 17:45 Catheterized Urine - Final Klebsiella Oxytoca Medications List Reviewed: Yes Assessment And Plan - Plan 73-year-old female with 1. Acute left parotitis. CT scan reviewed with the ENT Dr. Castano. No surgical intervention at this time. No abscess or stone or obstruction. Continue broad-spectrum IV antibiotics. WBC count trending down. Patient is immunocompromised and has had multiple recent hospitalizations has chronic kidney disease. Will follow up on blood cultures - negative to date. Clinically improving. patient recommended to continue secretagouges and to massage the gland. 2. Acute metabolic encephalopathy. Resolved now back to baseline does have mild dementia. covid 19 has been ruled out. Patient did have subjective fever at home. 3. Elevated troponin level. Likely secondary to above. Appreciate Dr. Sotelo input. Recent echocardiogram in August was normal. Patient denies any chest pain. Will continue to monitor. Continue aspirin. Patient not a candidate for intervention at this time. 4. Chronic kidney disease stage 3. Creatinine now normalized. Will continue to monitor. Avoid NSAIDs. Consult nephrology. 5. Hypokalemia. Likely secondary to diarrhea which is from the Kayexalate. Replace and monitor. Check magnesium level 6. Diarrhea. Likely secondary to Kayexalate however patient had recent C. diff infection. 7. Acute cystitis. Microscopy is pending. Patient recently completed treatment for E. S. B. L E.coli. urine culture showing Klebsiella. Continue antibiotics 8. COPD chronic bronchitis. Not oxygen dependent. Stable 9. Essential hypertension. Continue meds stable 10. Hypothyroidism. Resume home medication 11. Dementia. Alzheimer's. Without behavioral disturbance. Fall precautions 12. Bipolar disorder. Continue home medications 13. Schizoaffective disorder. Continue home medications. Recently seen by psychiatry last month.. 14. Patient under investigation for COVID 19. Testing came back negative. Incentive spirometer Continue Physical therapy and occupational therapy. DVT prophylaxis with Lovenox Referred to [facility] facility for physical therapy.
[2019-10-21] MEDS: DIVALPROEX ER 250 MG TAB PO SCH ×2 (09:00→21:00)
[2019-10-21] MEDS: FOLIC ACID PO SCH (09:00)
[2019-10-21] MEDS: LACTOBACILLUS/ACIDOPHILUS TAB PO SCH ×3 (09:36→21:39)
[2019-10-21] MEDS: METOPROLOL XL 25 MG TAB PO SCH ×2 (09:36→21:38)
[2019-10-21] MEDS: OLANZapine 2.5 MG TAB PO SCH ×2 (09:37→21:38)
[2019-10-21] MEDS: GABAPENTIN 300 MG CAP PO SCH ×3 (09:37→21:00)
[2019-10-21] MEDS: DONEPEZIL HCL 5 MG TAB PO SCH ×2 (09:37→21:39)
[2019-10-21] MEDS: ASPIRIN 325 MG TAB PO SCH (09:37)
[2019-10-21] MEDS: DULOXETINE 30 MG CAP PO SCH (09:37)
[2019-10-21] MEDS: TOPIRAMATE 100 MG TAB PO SCH ×2 (09:37→21:38)
[2019-10-21] MEDS: Meropenem 1,000 MG in NA CHLORIDE 0.9% 100 ML IV SCH ×2 (09:38→21:38)
[2019-10-21] MEDS: MEMANTINE HCL 10 MG TABLET PO SCH ×2 (09:38→21:39)
[2019-10-21] MEDS ORDERED: Magnesium Sulfate 2gm IVPB 2 G/50 ML BAG IV ONE (16:08)
[2019-10-21] MEDS: POTASS/SODIUM PHOSPHATE 1 PKT POWD.PACK PO SCH (17:30)
[2019-10-21] MEDS: VANCOMYCIN 2 GM in NA CHLORIDE 0.9% 500 ML IVPB SCH (17:47)
[2019-10-21] MEDS ORDERED: NA CHLORIDE 0.9% 250 ML ONE (18:05)
--- NOTE | 2019-10-21 20:47 | PN ---
Date of Progress Note: 10/21/2019 Subjective: Patient is seen at the bedside. No overnight events reported. The patient has no acute complaints, but does continue to have pain over her left parotid gland. Denies any fevers, chills, chest pain, shortness of breath, nausea, vomiting, or diarrhea. Objective: Vital Signs: Blood pressure is 162/63, pulse 80, temperature 98.1. General: No acute distress. Heart: Regular rate and rhythm. No murmurs, rubs, or gallops. Lungs: Clear to auscultation bilaterally. Abdomen: Soft, nontender, nondistended. Extremities: With trace edema. HEENT: Left parotid swelling noted which is tender to the touch. Laboratory Data: CBC showing hemoglobin 9.2, hematocrit 28.5. Serum chemistry: Sodium 144, potassi um was 2.7 in the morning and then was 3.2 on the last check, chloride 113, BUN and creatinine 15/1.0 9. Current Medications: Reviewed. Of note, the patient did receive 1 dose of Neutra-Phos yesterday. S he also received potassium chloride 40 mEq x1 earlier today. Impression: 1.Electrolyte abnormalities including hypokalemia and hypophosphatemia. 2.Urinary tract infection with Klebsiella. 3.Acute left parotitis. 4.Altered mental status. 5.Chronic obstructive pulmonary disease. Plan: The patient's renal function has remained stable. Would continue antibiotics for parotitis an d urinary tract infection. For the patient's hypokalemia and hypophosphatemia, it is likely secondar y to decreased p.o. intake overall with the patient's parotitis. The patient's potassium was replete d. I have added to magnesium 2 g to help with potassium balance. Hypophosphatemia persists. I will place the patient on Neutra-Phos with meals until tomorrow, and I would recommend encouraging p.o., especially encouraging dairy intake to help with dietary phosphorus supplementation. Continue monito ring electrolytes and phosphorus levels and will continue to follow. SE/MODL Voice ID: [id number] Report ID: [id number]
[2019-10-21 23:03] LABS: Urine Appearance CLEAR; Urine Bilirubin NEGATIVE (NEG); Urine Blood NEGATIVE (NEG); Urine Color YELLOW; Urine Glucose NEGATIVE (NEG); Urine Protein NEGATIVE (NEG); Urine Urobilinogen 0.2 mg/dL (0.2-1.0)
[2019-10-21 23:23] LABS: UR MICROALBUMIN 14.4 mg/dL (< 1.9)
[2019-10-22 00:15] LABS: Urine Bacteria 20-50 /HPF (<20); Urine Culture Reflex Order NOT NEEDED
[2019-10-22 06:00] LABS: Basophils % 0.6 % (0-1.3); Hematocrit 29.1 % (36.0-45.0); Lymphocytes % 18.6 % (15.3-44.8); MPV 8.3 fL (7.6-11.3); RBC Red Blood Cell Count 3.18 M/uL (3.86-4.86)
[2019-10-22] MEDS: ACETAMINOPHEN 500 MG TAB PO PRN ×3 (06:10→18:26)
[2019-10-22] MEDS: LEVOTHYROXINE SOD 0.025 MG TAB PO SCH (06:10)
[2019-10-22 06:14] LABS: Magnesium 2.1 mg/dL (1.8-2.4); Potassium 3.3 mmol/L (3.5-5.1)
[2019-10-22] MEDS: INSULIN -REGULAR HUMAN 50 UNIT/0.5 ML ML SQ SCH ×4 (07:30→21:00)
--- NOTE | 2019-10-22 08:29 | P.PN ---
Subjective Date of Service: 10/22/19 Chief Complaint: Altered mental status, protitis Subjective: Improving Patient seen and examined chart reviewed and case discussed with RN. Still has swelling and pain on the left parotid gland but is improving. Review of Systems 10-point ROS is otherwise unremarkable ENT: As per HPI Physical Examination - Vital Signs Temperature: 98.4 F Blood Pressure: 124/60 Pulse: 69 Respirations: 16 Pulse Ox (%): 95 - Physical Exam General: Alert, In no apparent distress, Oriented x3, Obese, Other (Elderly female) HEENT: Atraumatic, PERRLA, Other (Left parotid gland swelling improved. Minimal erythema), EOMI Neck: Supple, JVD not distended Respiratory: Clear to auscultation bilaterally, Normal air movement, Other (No wheezing or stridor) Cardiovascular: Regular rate/rhythm, Normal S1 S2, Edema Gastrointestinal: Normal bowel sounds, Soft and benign, Non-distended, No tender ness Musculoskeletal: No tenderness Integumentary: No rashes Neurological: Normal speech, Normal tone, Cranial nerves 3-12 intact, Normal affect - Studies Laboratory Last Values WBC 13.1 K/uL (4.3-10.9) H 10/18/19 17:00 RBC 4.02 M/uL (3.86-4.86) 10/18/19 17:00 Hgb 12.0 g/dL (12.0-15.0) 10/18/19 17:00 Hct 37.7 % (36.0-45.0) 10/18/19 17:00 MCV 93.7 fL (80-100) 10/18/19 17:00 MCH 29.7 pg (27.0-35.0) 10/18/19 17:00 MCHC 31.7 g/dL (32.0-36.0) L 10/18/19 17:00 RDW 13.8 % (12.1-15.2) 10/18/19 17:00 Plt Count 212 K/uL (152-406) 10/18/19 17:00 MPV 9.4 fL (7.6-11.3) 10/18/19 17:00 Neutrophils % 92.2 % (41.7-73.7) H 10/18/19 17:00 Lymphocytes % 4.8 % (15.3-44.8) L 10/18/19 17:00 Monocytes % 2.6 % (3.3-12.3) L 10/18/19 17:00 Eosinophils % 0.0 % (0-4.4) 10/18/19 17:00 Basophils % 0.4 % (0-1.3) 10/18/19 17:00 Absolute Neutrophils 12.0 K/uL (1.8-8.0) H 10/18/19 17:00 Absolute Lymphocytes 0.6 K/uL (0.7-4.9) L 10/18/19 17:00 Absolute Monocytes 0.3 K/uL (0.1-1.3) 10/18/19 17:00 Absolute Eosinophils 0.0 K/uL (0-0.5) 10/18/19 17:00 Absolute Basophils 0.1 K/uL (0-0.5) 10/18/19 17:00 Morphology Comment Not seen (NOT SEEN) 10/18/19 17:00 PT 11.7 SECONDS (9.5-12.5) 10/18/19 17:00 INR 0.99 10/18/19 17:00 Sodium 138 mmol/L (136-145) 10/18/19 17:00 Potassium 5.4 mmol/L (3.5-5.1) H 10/18/19 17:00 Chloride 107 mmol/L (98-107) 10/18/19 17:00 Carbon Dioxide 16 mmol/L (21-32) L 10/18/19 17:00 BUN 20 mg/dL (7-18) H 10/18/19 17:00 Creatinine 1.45 mg/dL (0.55-1.3) H 10/18/19 17:00 Estimated GFR 36 mL/min (=/>90) L 10/18/19 17:00 Glucose 62 mg/dL (74-106) L 10/18/19 17:00 POC Glucose 114 mg/dl (65-120) 10/18/19 19:55 Lactic Acid 0.9 mmol/L (0.4-2.0) 10/18/19 17:00 Calcium 9.4 mg/dL (8.5-10.1) 10/18/19 17:00 Total Bilirubin 0.5 mg/dL (0.2-1.0) 10/18/19 17:00 AST 14 U/L (15-37) L 10/18/19 17:00 ALT 14 U/L (12-78) 10/18/19 17:00 Alkaline Phosphatase 177 U/L (45-117) H 10/18/19 17:00 Rapid Troponin I 0.67 ng/mL (0.0-0.045) H* 10/18/19 17:00 Serum Total Protein 8.3 g/dL (6.4-8.2) H 10/18/19 17:00 Albumin 3.3 g/dL (3.4-5.0) L 10/18/19 17:00 Globulin 5.0 g/dL (2.3-3.5) H 10/18/19 17:00 Albumin/Globulin Ratio 0.7 (1.1-1.8) L 10/18/19 17:00 Amylase 72 U/L (25-115) 10/18/19 17:00 Procalcitonin 0.06 ng/mL (<0.50) 10/18/19 17:00 Urine RBC 5-10 /HPF (NONE SEEN) H 10/18/19 17:45 Urine WBC >50 /HPF (<5) H 10/18/19 17:45 Ur Squamous Epith Cells 5-10 /HPF (NONE SEEN) H 10/18/19 17:45 Urine Bacteria >50 /HPF (<20) H 10/18/19 17:45 Urine Culture Reflexed Not needed 10/18/19 17:45 Microbiology Data (last 24 hrs): Urine culture growing Klebsiella Medications List Reviewed: Yes Assessment And Plan - Plan 73-year-old female with 1. Acute left parotitis. Improving erythema has reduced his swelling is better. CT scan reviewed with the ENT Dr. Castano. No surgical intervention at this time. No abscess or stone or obstruction. Continue broad-spectrum IV antibiotics. WBC count trending down. Patient is immunocompromised and has had multiple recent hospitalizations has chronic kidney disease. Will follow up on blood cultures - negative to date. Clinically improving. patient recommended to continue secretagouges and to massage the gland. 2. Acute metabolic encephalopathy. Resolved now back to baseline does have mild dementia. covid 19 has been ruled out. Patient did have subjective fever at home. 3. Elevated troponin level. Likely secondary to above. Appreciate Dr. Sotelo input. Recent echocardiogram in August was normal. Patient denies any chest pain. Will continue to monitor. Continue aspirin. Patient not a candidate for intervention at this time. 4. Chronic kidney disease stage 3. Creatinine now normalized. Will continue to monitor. Avoid NSAIDs. Appreciate nephrology input 5. Hypokalemia. Likely secondary to diarrhea which is from the Kayexalate. Replace and monitor. Check magnesium level 6. Diarrhea. Likely secondary to Kayexalate however patient had recent C. diff infection. Continue with Lactinex 7. Acute cystitis. Patient recently completed treatment for E. S. B. L E.coli. urine culture showing Klebsiella. Continue antibiotics 8. COPD chronic bronchitis. Not oxygen dependent. Stable 9. Essential hypertension. Continue meds stable 10. Hypothyroidism. Resume home medication 11. Dementia. Alzheimer's. Without behavioral disturbance. Fall precautions 12. Bipolar disorder. Continue home medications 13. Schizoaffective disorder. Continue home medications. Recently seen by psychiatry last month.. 14. Patient under investigation for COVID 19. Testing came back negative. Incentive spirometer Continue Physical therapy and occupational therapy. DVT prophylaxis with Lovenox., dose adjusted his kidney function is improved Referred to alf facility for physical therapy. Discharge to alf facility once accepted on oral antibiotics Augmentin for 2 weeks. Spoke with patient she does not have any allergy to penicillin and has used penicillin in the past. She stated that her usually tells staff that she is allergic to penicillin despite no actual allergy.
[2019-10-22] MEDS: DIVALPROEX ER 250 MG TAB PO SCH ×2 (09:00→22:20)
[2019-10-22] MEDS: FOLIC ACID PO SCH (09:00)
[2019-10-22] MEDS: GABAPENTIN 300 MG CAP PO SCH ×3 (09:00→22:19)
[2019-10-22] MEDS: MEMANTINE HCL 10 MG TABLET PO SCH ×2 (09:00→22:20)
[2019-10-22] MEDS: Meropenem 1,000 MG in NA CHLORIDE 0.9% 100 ML IV SCH (09:42)
[2019-10-22] MEDS: OLANZapine 2.5 MG TAB PO SCH ×2 (09:43→22:21)
[2019-10-22] MEDS: ASPIRIN 325 MG TAB PO SCH (09:43)
[2019-10-22] MEDS: DONEPEZIL HCL 5 MG TAB PO SCH ×2 (09:43→22:19)
[2019-10-22] MEDS: TOPIRAMATE 100 MG TAB PO SCH ×2 (09:44→22:20)
[2019-10-22] MEDS: DULOXETINE 30 MG CAP PO SCH (09:45)
[2019-10-22] MEDS: LACTOBACILLUS/ACIDOPHILUS TAB PO SCH ×3 (09:45→22:20)
[2019-10-22] MEDS: METOPROLOL XL 25 MG TAB PO SCH ×2 (09:46→22:19)
[2019-10-22] MEDS: POTASS/SODIUM PHOSPHATE 1 PKT POWD.PACK PO SCH ×2 (09:46→16:07)
[2019-10-22] MEDS: ENOXAPARIN 40 MG/0.4 ML SQ SCH (09:46)
[2019-10-22] MEDS ORDERED: POTASSIUM CL SA 10 MEQ TAB PO ONE (14:47)
--- NOTE | 2019-10-22 19:50 | PN ---
Date of Progress Note: 10/22/2019 Subjective: Patient is seen at the bedside. No overnight events are reported. Continues on antibio tics for her parotitis. She states the pain is improved and she is able to tolerate more food than s he was yesterday. Denies any fevers, chills, chest pain, shortness of breath, nausea, vomiting, or d iarrhea. Objective: Vital Signs: Blood pressure is 122/57, pulse 75, temperature 97.6. General: No acute distress. HEENT: Left parotid swelling noted, subjectively less tender than yesterday. Heart: Regular rate and rhythm. No murmurs, rubs, or gallops. Lungs: Grossly clear to auscultation. Abdomen: Soft, nontender, nondistended. Extremities: Trace to 1+ edema. Laboratory Data: CBC with WBC of 5.4, hemoglobin 9.5, hematocrit 29.1, platelets 178. Serum professor of biochemistry ry from today: Potassium is 3.3, chloride 113, BUN and creatinine 11 over 0.95, glucose is 91, magne sium 2.1, calcium 8.9. Vancomycin trough yesterday was 22.8. Current Medications: Reviewed. Of note, patient was started on Neutra-Phos b.i.d. yesterday with me als. I do not see any additional potassium supplementation for today. Phosphorus level is not noted . Impression: 1.Electrolyte abnormalities including hypokalemia and hypophosphatemia. 2.Urinary tract infection with klebsiella. 3.Acute left parotitis. 4.Altered mental status. 5.Chronic obstructive pulmonary disease. Plan: Patient's renal function remains stable. Potassium again is low. I have ordered a 40 mEq p.o . replenishment. The patient now is having a loose stool and undergoing C difficile workup. This wi ll intensify her potassium loss, and so we will need to continue monitoring electrolytes closely. Ortega beltran may require standing IV potassium until the patient's enteritis improves. We will continue mon itoring daily potassium, magnesium levels. Phosphorus is not drawn today. However, we will continue Neutra-Phos until tomorrow and continue fol lowing for improvement in phosphorus level. Encourage p.o. intake as tolerated. The patient may nee d standing IV phosphorus supplementation as well if it remains low, again until enteritis resolves. SE/MODL Voice ID: [id number] Report ID: [id number]
[2019-10-22] MEDS: AMOX/K CLAV 875 MG TAB PO SCH (22:18)
[2019-10-23] MEDS: ACETAMINOPHEN 500 MG TAB PO PRN ×4 (00:08→20:53)
[2019-10-23 04:27] LABS: Absolute Lymphocytes (CBC) 1.3 K/uL (0.7-4.9); Basophils % 0.8 % (0-1.3); Hematocrit 27.5 % (36.0-45.0); Lymphocytes % 27.4 % (15.3-44.8); RBC Red Blood Cell Count 2.98 M/uL (3.86-4.86)
[2019-10-23 04:34] LABS: Phosphorus 2.8 mg/dL (2.5-4.9); Potassium 3.9 mmol/L (3.5-5.1)
[2019-10-23] MEDS: LEVOTHYROXINE SOD 0.025 MG TAB PO SCH (05:16)
[2019-10-23] MEDS: INSULIN -REGULAR HUMAN 50 UNIT/0.5 ML ML SQ SCH ×4 (07:30→20:47)
[2019-10-23] MEDS: TOPIRAMATE 100 MG TAB PO SCH ×2 (08:29→20:46)
[2019-10-23] MEDS: OLANZapine 2.5 MG TAB PO SCH ×2 (08:29→20:43)
[2019-10-23] MEDS: ENOXAPARIN 40 MG/0.4 ML SQ SCH (08:29)
[2019-10-23] MEDS: LACTOBACILLUS/ACIDOPHILUS TAB PO SCH ×3 (08:30→20:45)
[2019-10-23] MEDS: DONEPEZIL HCL 5 MG TAB PO SCH ×2 (08:31→20:50)
[2019-10-23] MEDS: POTASS/SODIUM PHOSPHATE 1 PKT POWD.PACK PO SCH ×2 (08:31→17:27)
[2019-10-23] MEDS: DIVALPROEX ER 250 MG TAB PO SCH ×2 (08:31→20:46)
[2019-10-23] MEDS: GABAPENTIN 300 MG CAP PO SCH ×3 (08:31→20:45)
[2019-10-23] MEDS: MEMANTINE HCL 10 MG TABLET PO SCH ×2 (08:31→20:46)
[2019-10-23] MEDS: AMOX/K CLAV 875 MG TAB PO SCH ×2 (08:32→20:45)
[2019-10-23] MEDS: DULOXETINE 30 MG CAP PO SCH (08:32)
[2019-10-23] MEDS: ASPIRIN 325 MG TAB PO SCH (08:32)
[2019-10-23] MEDS: METOPROLOL XL 25 MG TAB PO SCH ×2 (08:32→20:46)
[2019-10-23] MEDS: FOLIC ACID 1 MG TABLET PO SCH (10:40)
[2019-10-23 12:39] LABS: C.diff Antigen/Toxin Ag neg : Tox neg (NEG : NEG)
--- NOTE | 2019-10-23 15:11 | P.PN ---
Subjective Date of Service: 10/23/19 Primary Care Provider: Dr. Alegre Chief Complaint: Altered mental status, protitis Subjective: Improving Physical Examination - Vital Signs Temperature: 99.2 F Blood Pressure: 137/64 Pulse: 69 Respirations: 18 Pulse Ox (%): 98 - Physical Exam General: Alert, Cooperative HEENT: Atraumatic Neck: Other (Left parotid enlargement with pain with palpation) Respiratory: Clear to auscultation bilaterally, Normal air movement Cardiovascular: Normal pulses, Regular rate/rhythm Neurological: Normal speech, Normal affect - Studies Medications List Reviewed: Yes Assessment & Plan Discharge Plan: Other (custodial facility) Plan to discharge in: 24 Hours Physician Review Additional Text: Impression: Left acute parotiditis Acute metabolic encephalopathy Elevated troponin likely related to above Chronic renal disease stage III with hypokalemia Diarrhea Acute cystitis recently treated for E coli-ESBL COPD Hypertension Hypothyroidism Dementia Bipolar disorder with schizoaffective disorder Plan: Continue current antibiotic treatment-Augmentin. Patient will require 2 weeks of oral antibiotic therapy. Case discussed with nephrology. Continue other medications. Awaiting approval for skilled placement. Continue physical therapy, occupational therapy. Patient on DVT prophylaxis. Will plan for discharge once approved to skilled facility. Patient will need close follow up with ENT. Time Spent Managing Pts Care (In Minutes): 55
--- NOTE | 2019-10-23 15:52 | P.PN ---
Date of Service: 10/23/19 Subjective: Patient is a 73-year-old female with past medical history of COPD, hypertension, hyperlipidemia, chronic kidney disease, and dementia. Patient was recently discharged from the hospital about a month ago for C. diff colitis in the ESBL E. coli in the urine and blood. Patient came to the hospital this admission with complaints of pain and swelling in the left parotid gland that has progressively gotten worse. Patient reports able to tolerate small bites of food. Denies difficulty breathing. The patient reports diarrhea x3 today. Nurse reports patient was able to sit on the side of the bed with physical therapy. Awaiting transfer to SNF. Physical examination: Vitals: T 98.3, pulse 65, respirations 16, BP 128/60, O2 96% Labs: NA 146, K 3.9, BUN 10, Creatinine 0.87, GFR 64, WBC 4.6, Albumin 2.4 ROS: General: Patient alert, oriented, lying in bed CV: S1, S2 HEENT: Left parotid glad swollen, no erythema or warmth RESP: Clear to auscultation ABD: Soft, round, normoactive bowel sounds : Incontinence, using brief Extremities: mild swelling to BLLE, 1+ pedal pulses and 2+ radial pulses Skin: multiple bruises to upper and lower extremities Assessment and plan: Urine cultures show Klebsiella Oxytoca, continue current antibiotics Blood cultures show no growth to date. CT neck shows left sided protitis without evidence of abcess, stone or obstruction, no surgical intervention. Leukocytosis resolved Patient currently being treated Augmentin, recommend total of two weeks Diarrhea, stool cultures pending Patient tested for COVID-19 this admission with negative results reported by charge nurse, Chest x-ray shows evidence of CHF Will continue to monitor for signs of infection. Patient discussed with Dr. Savage.
--- NOTE | 2019-10-23 17:52 | P.PN ---
Date of Service: 10/23/19 Vital Signs Temp Pulse Resp BP Pulse Ox 97.8 F 66 16 138/64 96 10/23/19 16:00 10/23/19 16:00 10/23/19 16:00 10/23/19 16:00 10/23/19 16:00 Medications Acetaminophen (Tylenol -Extra Strength) 500 mg PO Q6H PRN PRN Reason: Pain scale 2-4 (Mild) Stop: 11/17/19 22:08 Last Admin: 10/23/19 14:34 Dose: 500 mg Documented by: Amoxicillin/Clavulanate Potassium (Augmentin 875-125 Tab) 875 mg PO BID [facility]; Protocol Stop: 11/21/19 21:01 Last Admin: 10/23/19 08:32 Dose: 875 mg Documented by: Aspirin (Abdulaziz Aspirin) 325 mg PO DAILY [facility] Stop: 11/19/19 09:01 Last Admin: 10/23/19 08:32 Dose: 325 mg Documented by: Divalproex Sodium (Depakote *Er*) 750 mg PO BID [facility] Stop: 11/18/19 21:01 Last Admin: 10/23/19 08:31 Dose: 750 mg Documented by: Donepezil HCl (Aricept) 10 mg PO BID [facility] Stop: 11/18/19 21:01 Last Admin: 10/23/19 08:31 Dose: 10 mg Documented by: Duloxetine HCl (Cymbalta Delayed Release Pellets) 60 mg PO DAILY [facility] Stop: 11/19/19 09:01 Last Admin: 10/23/19 08:32 Dose: 60 mg Documented by: Enoxaparin Sodium (Lovenox 40 Mg Inj) 40 mg SQ DAILY [facility] Stop: 11/21/19 09:01 Last Admin: 10/23/19 08:29 Dose: 40 mg Documented by: Folic Acid (Folic Acid) 1 mg PO DAILY [facility] Stop: 11/22/19 09:01 Last Admin: 10/23/19 10:40 Dose: 1 mg Documented by: Gabapentin (Neurontin) 300 mg PO TID [facility] Stop: 11/19/19 09:01 Last Admin: 10/23/19 14:35 Dose: 300 mg Documented by: Home Med (Fluticasone/Vilanterol [Breo Ellipta 200-25 Mcg Inh]) 1 puff IN DAILY [facility] Stop: 11/19/19 09:01 Insulin Human Regular (Novolin -R) 0 unit SQ ACHS [facility]; Protocol Stop: 11/17/19 22:08 Last Admin: 10/23/19 16:30 Dose: Not Given Documented by: Lactobacillus Acidoph/Bulgaricus (Lactinex) 1 tab PO TID [facility] Stop: 11/18/19 18:57 Last Admin: 10/23/19 14:34 Dose: 1 tab Documented by: Levothyroxine Sodium (Synthroid) 0.025 mg PO 0630 [facility] Stop: 11/19/19 06:31 Last Admin: 10/23/19 05:16 Dose: 0.025 mg Documented by: Loratadine (Claritin) 10 mg PO DAILY PRN PRN Reason: ALLERGIES Stop: 11/18/19 17:59 Last Admin: 10/21/19 06:15 Dose: 10 mg Documented by: Memantine (Namenda) 10 mg PO BID [facility] Stop: 11/18/19 21:01 Last Admin: 10/23/19 08:31 Dose: 10 mg Documented by: Metoprolol Succinate (Toprol Xl) 25 mg PO BID [facility] Stop: 11/18/19 21:01 Last Admin: 10/23/19 08:32 Dose: 25 mg Documented by: Olanzapine (Zyprexa) 2.5 mg PO BID [facility] Stop: 11/18/19 21:01 Last Admin: 10/23/19 08:29 Dose: 2.5 mg Documented by: Ondansetron HCl (Zofran) 4 mg IV Q4H PRN PRN Reason: NAUSEA / VOMITING Stop: 11/17/19 22:08 Potassium Phos/Sodium Phos (Neutra-Phos Pwd) 1 pkt PO BIDWM [facility] Stop: 11/20/19 17:01 Last Admin: 10/23/19 17:27 Dose: 1 pkt Documented by: Sodium Chloride (Normal Saline Flush) 10 ml IV BID [facility] Stop: 11/17/19 22:08 Last Admin: 10/23/19 08:27 Dose: 10 ml Documented by: Topiramate (Topamax) 100 mg PO BID [facility] Stop: 11/18/19 21:01 Last Admin: 10/23/19 08:29 Dose: 100 mg Documented by: Microbiology Results 10/18/19 17:00 Blood - Blood Aerobic Blood Culture - Final No growth in 5 days. 10/18/19 17:00 Blood - Blood Anaerobic Blood Culture - Final No growth in 5 days. 10/18/19 17:45 Catheterized Urine [place] Count - Final >100,000 CFU/ML. 10/18/19 17:45 Catheterized Urine - Final Klebsiella Oxytoca 10/18/19 17:40 Blood - Blood Aerobic Blood Culture - Preliminary No growth in 24 hours. 10/18/19 17:40 Blood - Blood Anaerobic Blood Culture - Preliminary No growth in 24 hours. 10/18/19 17:05 Nasopharnyx Coronavirus COVID-19 PCR - Final Assessment/ Plan: Nephrology Reports worsening diarrhea today. CPS stable without CP or SOB. No acute events overnight. Vitals, medications, blood work and imaging reviewed in the chart. General: In no apparent distress, Confused HEENT: Atraumatic Neck: Supple Respiratory: Clear to auscultation bilaterally Cardiovascular: No edema, Regular rate/rhythm Gastrointestinal: Soft and benign, Non-distended Musculoskeletal: No clubbing, No contractures Integumentary: No rashes, No cyanosis Neurological: Normal speech Laboratory Data (last 24 hrs) 10/18/19 17:00: Amylase 72 Imagings Data: EXAM DESCRIPTION: RAD - Chest Single View - 10/18/2019 4:53 pm CLINICAL HISTORY: AMS Chest pain. COMPARISON: Chest Single View dated 09/21/2019; Chest Single View dated 09/13/2019; Chest Single View dated 08/22/2019; Chest Single View dated 08/21/2019 FINDINGS: Portable technique limits examination quality. Mild interstitial pulmonary edema. The heart is mildly prominent. No displaced fractures. IMPRESSION: CHF. Conclusions/Impression: A/ AMBAR likely CRS. Hypernatremia. Hyperkalemia/ Hypokalemia. Acidosis. CKD III. Hyperglycemia. HTN with CKD. Anemia in chronic illness. Toxic metabolic encephalopathy. Acute cystitis. P/ Continue current POC and Medications. Continue abx. Monitor vanco level. Encourage free water intake. No NSAIDs. AM labs. Daily weight.
[2019-10-24] MEDS: ACETAMINOPHEN 500 MG TAB PO PRN ×3 (02:51→14:24)
[2019-10-24 04:09] LABS: Absolute Lymphocytes (CBC) 1.8 K/uL (0.7-4.9); Basophils % 0.6 % (0-1.3); MPV 8.2 fL (7.6-11.3); RBC Red Blood Cell Count 3.29 M/uL (3.86-4.86)
[2019-10-24 04:19] LABS: Potassium 4.5 mmol/L (3.5-5.1)
[2019-10-24] MEDS: LEVOTHYROXINE SOD 0.025 MG TAB PO SCH (06:01)
[2019-10-24] MEDS: INSULIN -REGULAR HUMAN 50 UNIT/0.5 ML ML SQ SCH ×2 (07:30→11:30)
[2019-10-24] MEDS: GABAPENTIN 300 MG CAP PO SCH ×2 (09:00→13:41)
[2019-10-24] MEDS: OLANZapine 2.5 MG TAB PO SCH (09:18)
[2019-10-24] MEDS: POTASS/SODIUM PHOSPHATE 1 PKT POWD.PACK PO SCH (09:18)
[2019-10-24] MEDS: DIVALPROEX ER 250 MG TAB PO SCH (09:19)
[2019-10-24] MEDS: DONEPEZIL HCL 5 MG TAB PO SCH (09:20)
[2019-10-24] MEDS: ASPIRIN 325 MG TAB PO SCH (09:20)
[2019-10-24] MEDS: LACTOBACILLUS/ACIDOPHILUS TAB PO SCH ×2 (09:20→13:39)
[2019-10-24] MEDS: TOPIRAMATE 100 MG TAB PO SCH (09:20)
[2019-10-24] MEDS: FOLIC ACID 1 MG TABLET PO SCH (09:21)
[2019-10-24] MEDS: METOPROLOL XL 25 MG TAB PO SCH (09:21)
[2019-10-24] MEDS: MEMANTINE HCL 10 MG TABLET PO SCH (09:21)
[2019-10-24] MEDS: AMOX/K CLAV 875 MG TAB PO SCH (09:21)
[2019-10-24] MEDS: DULOXETINE 30 MG CAP PO SCH (09:22)
[2019-10-24] MEDS: ENOXAPARIN 40 MG/0.4 ML SQ SCH (09:23)
[2019-10-24 15:10] VITALS: O2SAT 99
--- NOTE | 2019-10-24 15:30 | P.DS ---
Admission Date: 10/18/19 Discharge Date: 10/24/19 Primary Care Provider: Dr. Alegre Disposition: TRANSFER TO SNF - MEDICAL Discharge Condition: GOOD Reason for Admission: Altered mental status, protitis Consultations: ID-Dr. Savage ENT-Dr. Castano Cardiology-Dr. Sotelo Nephrology-Dr. Fernando Procedures: CT scan: FINDINGS: Skin thickening and subcutaneous inflammatory fat stranding is seen along the left aspect of pain neck from the level of the left parotid gland inferiorly to the left base of the neck. The inflammation also extends along the left upper chest. The left parotid gland appears quite enlarged relative to the right with inflammatory fat stranding present within the gland. Mild mass effect larynx is present toward the right. No bulky adenopathy seen. Bilateral layering pleural effusions suspected. IMPRESSION: Significant enlargement and inflammatory appearance to the left parotid gland suggests parotitis. Medical problem list: Left acute parotiditis Acute metabolic encephalopathy Elevated troponin likely related to above Chronic renal disease stage III with hypokalemia Diarrhea Acute cystitis/UTI treated for E coli-ESBL COPD Hypertension Hypothyroidism Dementia Bipolar disorder with schizoaffective disorder Brief History of Present Illness: 73-year-old female with multiple medical problems presented with altered mental status. Patient found to have acute parotitis with acute on chronic renal disease. Patient was admitted for further evaluation. Hospital Course: Review daily notes for details of hospitalization. Patient was admitted for altered mental status related to acute metabolic encephalopathy. This was related to acute peritonitis and UTI. Patient was found to have E coli with ESBL. Patient treated during the course of her stay. Patient was seen by multiple specialists including Infectious Disease, Nephrology, and ENT. During the course for her stay UTI was treated. At discharge patient required Augmentin twice daily for 10 more days to continue to treat the peritonitis. Patient will follow up with ENT as directed. Patient with other medical problems including COPD, hypertension, hypothyroidism, dementia, bipolar disorder. She will continue with her current medications. Patient with chronic renal disease follow up with nephrology in 1 week to monitor progress. Recommend to recheck lab-BMP in 1 week. Vital Signs/Physical Exam: Temp Pulse Resp BP Pulse Ox 97.4 F 75 15 130/67 99 10/24/19 12:00 10/24/19 12:00 10/24/19 12:00 10/24/19 12:00 10/24/19 12:00 General: Alert, In no apparent distress, Oriented x3, Cooperative HEENT: Atraumatic Neck: Other (Mild swelling to the left parotid region) Respiratory: Clear to auscultation bilaterally, Normal air movement Cardiovascular: Normal pulses, Regular rate/rhythm Gastrointestinal: Normal bowel sounds, Soft and benign, Non-distended Neurological: Normal speech, Normal strength at 5/5 x4 extr, Normal tone, Normal affect Laboratory Data at Discharge: WBC 5.5 K/uL (4.3-10.9) D 10/24/19 03:36 Hgb 9.8 g/dL (12.0-15.0) L 10/24/19 03:36 Hct 30.0 % (36.0-45.0) L 10/24/19 03:36 Plt Count 190 K/uL (152-406) D 10/24/19 03:36 PT 11.7 SECONDS (9.5-12.5) 10/18/19 17:00 INR 0.99 10/18/19 17:00 Sodium 143 mmol/L (136-145) 10/24/19 03:36 Potassium 4.5 mmol/L (3.5-5.1) 10/24/19 03:36 BUN 13 mg/dL (7-18) 10/24/19 03:36 Creatinine 0.90 mg/dL (0.55-1.3) 10/24/19 03:36 Glucose 97 mg/dL (74-106) 10/24/19 03:36 Uric Acid 9.9 mg/dL (2.6-6.0) H D 10/20/19 05:54 Phosphorus 2.8 mg/dL (2.5-4.9) 10/23/19 04:00 Magnesium 2.1 mg/dL (1.8-2.4) 10/22/19 05:21 Total Bilirubin 0.3 mg/dL (0.2-1.0) 10/21/19 05:53 AST 8 U/L (15-37) L 10/21/19 05:53 ALT 9 U/L (12-78) L 10/21/19 05:53 Alkaline Phosphatase 118 U/L (45-117) H 10/21/19 05:53 Amylase 72 U/L (25-115) 10/18/19 17:00 Home Medications: Aspirin 1 tab PO DAILY 10/18/19 Divalproex ER [Depakote *ER] 3 tab PO BID 10/18/19 Donepezil HCl 10 mg PO BID 10/18/19 Duloxetine HCl 60 mg PO DAILY 10/18/19 Flaxseed Oil 1 cap PO DAILY 10/18/19 Fluticasone/Vilanterol [Breo Ellipta 200-25 Mcg INH] 1 puff IN DAILY 10/18/19 Folic Acid 1 tab PO DAILY 10/18/19 Gabapentin 800 mg PO TID 10/18/19 Hydrocodone 5/APAP 325 [[place] 5/325*] 1 tab PO Q6H PRN 10/18/19 Levothyroxine Sodium 25 mcg PO 0630 10/18/19 Loratadine [Claritin*] 1 tab PO DAILY PRN 10/18/19 Memantine HCl 10 mg PO BID 10/18/19 Metoprolol Succinate 25 mg PO BID 10/18/19 OLANZapine [Zyprexa*] 2.5 mg PO BID 10/18/19 Ondansetron [Ondansetron Odt] 4 mg PO Q12H PRN 10/18/19 Topiramate 100 mg PO BID 10/18/19 Vit A,C & E/Lutein/Minerals [Healthy Eyes Tablet] 1 tab PO DAILY 10/18/19 Amox/Clavulanate [Augmentin 875-125 Tab*] 875 mg PO BID #20 tab 10/24/19 New Medications: Amox/Clavulanate [Augmentin 875-125 Tab*] 875 mg PO BID #20 tab Patient Discharge Instructions: 1. Transfer to SNF. 2. Continue with Augmentin 875 mg BID for 10 days. Follow up with ENT in 2 weeks to follow up hospitalization. 3. She may continue with her other medications. 4. Follow up with Nephrology in 1-2 weeks. 5. Recheck lab-CBC, CMP in 1-2 weeks. Diet: AHA Activity: Ad jimi Time spent managing pt's care (in minutes): 55
[2019-10-24 17:05] VITALS: BP 142/65; TEMP 97.5
--- NOTE | 2019-10-24 20:57 | P.PN ---
Date of Service: 10/24/19 Vital Signs Temp Pulse Resp BP Pulse Ox 97.5 F 68 16 142/65 H 99 10/24/19 16:00 10/24/19 16:00 10/24/19 16:00 10/24/19 16:00 10/24/19 16:00 Microbiology Results 10/18/19 17:40 Blood - Blood Aerobic Blood Culture - Final No growth in 5 days. 10/18/19 17:40 Blood - Blood Anaerobic Blood Culture - Final No growth in 5 days. 10/18/19 17:00 Blood - Blood Aerobic Blood Culture - Final No growth in 5 days. 10/18/19 17:00 Blood - Blood Anaerobic Blood Culture - Final No growth in 5 days. 10/18/19 17:45 Catheterized Urine [place] Count - Final >100,000 CFU/ML. 10/18/19 17:45 Catheterized Urine - Final Klebsiella Oxytoca 10/18/19 17:05 Nasopharnyx Coronavirus COVID-19 PCR - Final Assessment/ Plan: Nephrology Doing well and feeling better. CPS stable without CP or SOB. No acute events overnight. Vitals, medications, blood work and imaging reviewed in the chart. General: In no apparent distress, Confused HEENT: Atraumatic Neck: Supple Respiratory: Clear to auscultation bilaterally Cardiovascular: No edema, Regular rate/rhythm Gastrointestinal: Soft and benign, Non-distended Musculoskeletal: No clubbing, No contractures Integumentary: No rashes, No cyanosis Neurological: Normal speech Laboratory Data (last 24 hrs) 10/18/19 17:00: Amylase 72 Imagings Data: EXAM DESCRIPTION: RAD - Chest Single View - 10/18/2019 4:53 pm CLINICAL HISTORY: AMS Chest pain. COMPARISON: Chest Single View dated 09/21/2019; Chest Single View dated 09/13/2019; Chest Single View dated 08/22/2019; Chest Single View dated 08/21/2019 FINDINGS: Portable technique limits examination quality. Mild interstitial pulmonary edema. The heart is mildly prominent. No displaced fractures. IMPRESSION: CHF. Conclusions/Impression: A/ AMBAR likely CRS. Hypernatremia. Hyperkalemia/ Hypokalemia. Acidosis. CKD III. Hyperglycemia. HTN with CKD. Anemia in chronic illness. Toxic metabolic encephalopathy. Acute cystitis. P/ Continue current POC and Medications. Continue abx. Monitor vanco level. Encourage free water intake. No NSAIDs. AM labs. Daily weight.
== END 2019-10-24 16:28 | DRG 154 ==
LOC: ER 16:30 → 4TH 21:57 → 2ND 10-19 18:44
PROVIDERS: ADMIT Family Medicine; ATTEND Family Medicine
DX: K11.21 Acute sialoadenitis (principal); G92 Toxic encephalopathy; N30.00 Acute cystitis without hematuria; Z16.12 Extended spectrum beta lactamase (ESBL) resistance; N17.9 Acute kidney failure, unspecified; N18.3 Chronic kidney disease, stage 3 (moderate); E87.5 Hyperkalemia; E87.6 Hypokalemia; E16.2 Hypoglycemia, unspecified; B96.20 Unspecified Escherichia coli [E. coli] as the cause of diseases classified elsewhere; J42 Unspecified chronic bronchitis; I12.9 Hypertensive chronic kidney disease with stage 1 through stage 4 chronic kidney disease, or unspecified chronic kidney disease; E03.9 Hypothyroidism, unspecified; G30.9 Alzheimer's disease, unspecified; F02.80 Dementia in other diseases classified elsewhere, unspecified severity, without behavioral disturbance, psychotic disturbance, mood disturbance, and anxiety; F31.9 Bipolar disorder, unspecified; F25.9 Schizoaffective disorder, unspecified; D63.8 Anemia in other chronic diseases classified elsewhere; Z87.898 Personal history of other specified conditions; Z03.818 Encounter for observation for suspected exposure to other biological agents ruled out
CPT/HCPCS: 36415; 51702; 70450; 70491; 71045; 80048; 80053; 80202; 81001; 81015; 82043; 82150; 82570; 82947; 83605; 83735; 84100; 84132; 84145; 84484; 84550; 85025; 85610; 87040; 87045; 87046; 87077; 87086; 87088; 87186; 87324; 87449; 93005; 94760; 96365; 96375; 97110; 97112; 97116; 97161; 97530; 99285; J0692; J1100; J1650; J3370; J3475; J7030; J7040; J7799; Q9967; U0002

== ENCOUNTER 2019-11-06 00:19 | Emergency (ER) | payer OTHER, BC ==
--- OUTSIDE RECORDS SUMMARY | 2019-11-06 00:45 | XMS REPORT ---
:1945 Author Organization [facility] t Address [address] [place] [address] Care Team Providers Name Role Phone Unavailable Unavailable Unavailable Payers Payer Name Policy Type Policy Number Effective Date Expiration D ate Problems Condition Condition Condition Status Onset Resolution Last Treatin g Comments Name Details Category Date Date Treatment Clinician Date Unsteady Unsteady Problem Active gait gait Bipolar Bipolar Problem Active disorder disorder Acquired Acquired Problem Active hypothyroid hypothyroid ism ism COPD COPD Problem Active (chronic (chronic obstructive obstructive pulmonary pulmonary disease) disease) Anxiety Anxiety Problem Active Allergic Allergic Problem Active rhinitis rhinitis Hyperthyroi Hyperthyroi Problem Active dism dism Degenerativ Degenerativ Problem Active e disc e disc disease, disease, lumbar lumbar Depression Depression Problem Active HTN HTN Problem Active (hypertensi (hypertensi on) on) Dementia Dementia Problem Active without without behavioral behavioral disturbance disturbance , , unspecified unspecified dementia dementia type type Pure Pure Problem Active hyperglycer hyperglycer idemia idemia Lumbar disc Lumbar disc Problem Active herniation herniation Primary Primary Problem Active osteoarthri osteoarthri tis of both tis of both knees knees Mixed Mixed Problem Active hyperlipide hyperlipide narciso narciso Swelling Swelling Problem Active Migraines Migraines Problem Active Overactive Overactive Problem Active bladder bladder Other Other Problem Active chronic chronic pain pain CKD CKD Problem Active (chronic (chronic kidney kidney disease), disease), stage III stage III Dry eye Dry eye Problem Active syndrome of syndrome of both eyes both eyes Allergies, Adverse Reactions, Alerts Allergy Allergy Status Severity Reaction(s) Onset Inactive Treating C omments Name Type Date Date Clinician No Known DA Active U 2019-08 Allergies -20 00:00:0 0 Medications Ordered Filled Start Stop Current Ordering Indication Dosage Frequency Signature Comments Components Medication Medication Date Date Medication? Clinician (SIG) Name Name Lesley Sutton 2018-07 Yes Na Alegre 1 tablet 2-14 00:00: 00 Comp Air Comp Air 2018-07 Yes Na Alegre as Compressor Compressor 2-13 directed Nebulizer Nebulizer 00:00: 00 Levothyroxi Levothyroxi 2018-07 Yes Na Alegre 1 tab let ne Sodium ne Sodium 0-24 in the 00:00: morning on 00 an empty stomach Oxybutynin Oxybutynin 2018-07 2020- No Na Alegre 1 table t Chloride Chloride 0-24 04-21 00:00: 00:00 00 :00 Imitrex Imitrex Yes Na Alegre 1 tablet 30 as needed 00:00: 00 Claritin Claritin Yes Na Alegre 1 tablet 12-08 00:00: 00 Flonase Flonase Yes Na Alegre 1 spray in 12-08 each 00:00: nostril 00 Carvedilol Carvedilol Yes Na Alegre 1 tablet Lisinopril Lisinopril Yes Na Alegre 1 tablet Carbamazepi Carbamazepi Yes Na Alegre 1 tabl et ne ne Ondansetron Ondansetron Yes Na Alegre 1 tabl et HCl HCl Vitamin D Vitamin D Yes Na Alegre 1 tablet Melatonin Melatonin Yes Na Alegre 1 tablet at bedtime as needed with food Protonix Protonix Yes Na Alegre 1 tablet Donepezil Donepezil Yes Na Alegre 1 tablet HCl HCl at bedtime Duloxetine Duloxetine Yes Na Alegre 1 capsul e HCl HCl Benadryl Benadryl Yes Na Alegre 1 tablet Allergy Allergy as needed Simethicone Simethicone Yes Na Alegre 1 tabl et after meals and at bedtime as needed Imodium A-D Imodium A-D Yes Na Alegre 1 tabl et as needed Gabapentin Gabapentin Yes Na Alegre 1 tablet Oxybutynin Oxybutynin Yes Na Alegre 1 tablet Chloride ER Chloride ER Ipratropium Ipratropium Yes Na Alegre 3 ml -Albuterol -Albuterol Trazodone Trazodone Yes Na Alegre not HCl HCl defined Zantac Zantac Yes Na Alegre 1 tablet at bedtime Atorvastati Atorvastati Yes Na Alegre 1 tabl et n Calcium n Calcium Divalproex Divalproex Yes Na Alegre 1 tablet Sodium Sodium Levothyroxi Levothyroxi Yes Na Alegre 1 tabl et ne Sodium ne Sodium on an empty stomach in the morning Diclofenac Diclofenac Yes Na Alegre 1 tablet Sodium Sodium with food or milk BuPROPion BuPROPion Yes Na Alegre 1 tablet HCl ER (XL) HCl ER (XL) in the morning Memantine Memantine Yes Na Alegre 1 tablet HCl HCl Folic Folic Yes Na Alegre 1 tablet Acid-Vit Acid-Vit B6-Vit B12 B6-Vit B12 Topiramate Topiramate Yes Na Alegre TAKE 1 TABLET BY MOUTH TWICE DAILY Calcium Calcium Yes Na Alegre 1 tab Encounters Start End Encounter Admission Attending Care Care Encounter Date/Time Date/Time Type Type Clinicians Facility Department ID 2019-09-13 2019-09-13 [id number] 09:14:00 09:14:00 [facility] 2019-07-01 2019-07-01 [facility] [id number] 15:38:00 15:38:00 [facility] 2019-06-27 2019-06-27 [facility] [id number] 10:00:00 10:00:00 [facility] 2019-06-21 2019-06-21 [facility] [id number] 14:45:00 14:45:00 [facility] 2019-06-16 2019-06-16 [facility] [id number] 15:42:00 15:42:00 [facility] 2019-06-14 2019-06-14 [facility] [id number] 10:40:00 10:40:00 [facility] 2019-06-06 2019-06-06 [facility] [id number] 11:00:00 11:00:00 [facility] 2019-06-05 2019-06-05 [facility] [id number] 16:47:00 16:47:00 [facility] 2019-05-12 2019-05-12 [facility] [id number] 15:40:00 15:40:00 [employer] [facility] 2019-04-27 2019-04-27 [facility] [id number] 16:10:00 16:10:00 [facility] [employer] [facility] 2019-04-27 2019-04-27 [facility] [id number] 11:20:00 11:20:00 [place] [facility] [employer] [facility] 2019-04-03 2019-04-03 [id number] 12:04:00 12:04:00 [employer] [facility] 2019-03-28 2019-03-28 [facility] [id number] 13:40:00 13:40:00 [employer] [facility] 2019-03-21 2019-03-21 [facility] [id number] 15:40:00 15:40:00 [employer] [facility] [employer] [facility] 2019-03-14 2019-03-14 [facility] [id number] 13:13:00 13:13:00 [employer] [facility] 2019-03-13 2019-03-13 [facility] [id number] 14:00:00 14:00:00 [employer] [facility] 2018-12-08 2018-12-08 [facility] [id number] 15:00:00 15:00:00 [facility] Results Test Description Test Time Test Comments Text Results Atomic Results Result Comments VALPROIC ACID (DEPAKENE) 2019-08-31 07:37:00 Test Item Value Reference Range Comments VALPROIC ACID (DEPAKENE) (test code = VALP) 45.7 ug/mL 50.0 -100.0 HGBA1C - GLYCOSYLATED [id number] 14:38:00 Test Item Value Reference Range Comments GLYCOSYLATED HEMOGLOBIN (HA1C) (test code = GLYHGB) 4.7 % 4.0-6.0 URINALYSIS [id number] 13:31:00 Test Item Value Reference Range Comments [...] code = BACU) 3+ /HPF NEGATIVE URINALYSIS [id number] 13:20:00 Test Item Value Reference Range Comments [...] code = BACU) /HPF NEGATIVE BASIC METABOLIC [id number] 12:49:00 Test Item Value Reference Range Comments [...] = CA) 9.2 mg/dL 8.6-10.4 BASIC METABOLIC [id number] 12:43:00 Test Item Value Reference Range Comments [...] code = CA) mg/dL 8.6-10.4 CBC W/AUTO [id number] 12:02:00 Test Item Value Reference Range Comments [...] (test code = 149 mg/dL 35-160 [place] tzo-n-oqvpeghybuxl imine TRIG) (NAPQI), a metab olite ofacetaminophen [...] code = RISK) CHOL/HDL RISK M MIRI: 1/2 AVG 3.43 FEMALE: 1/2 AVG 3.27 AVG 4.97 AVG 4.44 2X AVG 9.55 2X AVG 7.05 3X AVG 23.39 3X AVG 11.04~~~~~~~~~~~ ~~~~~~~~~~~~~~ ~~~~~~~~~~~~~~~~ ~~~~~~~~~~~~~~ ~~~~~National olesterol Education (NCEP) Guidelines:~~~~~ ~~~~~~~~~~~~~~ ~~~~~~~~~~~~~~~~ ~~~~~~~~~~~~~~ ~~~~~~~~~~~ HDL Cholestero l<40mg/dL: HDL Cholesterol (Major risk factor for CHD)> 60mg/dL: HDL Cholesterol (Neg ative risk factor for CHD)4 0-59mg/dL: Borderline Risk LDL Cholesterol<10 0mg/dL: Desirable LDL-C [id number] -159mg/dL: Borderline High Risk LDL-C [id number] -189mg/dL: High risk LDL-C concentration HDL-LDL Choleste rol is affected by a nu mber of factors suchas s moking, age and sex.~~~~~~~~~~~~ ~~~~~~~~~~~~~~ ~~~~~~~~~~~~~~~~ ~~~~~~~~~~~~~~ ~~~~ THYROID STIMULATING [id number] 12:09:00 Test Item Value Reference Range Comments THYROID STIMULATING HORMONE (test code = TSH) 8.41 mIU/mL 0. 38-5.60
--- OUTSIDE RECORDS SUMMARY | 2019-11-06 00:46 | XMS REPORT ---
[...] Date Status Dosage System Date Topiramate ND 87471827699 100 MG Orally Active 1 t ablet twice a day Levothyroxine ND 94594920494 200 MCG Orally Active 1 tablet Sodium Once a day on an empty stomach in the morning Imodium A-D ND 83319171980 2 MG Orally Active 1 ta blet Four times a as needed day Melatonin ND 06202838051 3 MG Orally Active 1 tabl et Once a day at bedtime as needed with food Oxybutynin ND 07088228236 5 MG Oral twice Active 1 tablet Chloride ER a day Lisinopril ND 46082577420 2.5 MG Orally Active 1 t ablet twice a day Ipratropium-Albu ND 58714360909 0.5-2.5 (3) Active 3 ml terol MG/3ML Inhalation every 6 hrs Levothyroxine ND 05004932918 25 MCG Orally Oct , Active 1 tablet Sodium Once a day 2018 in the morning on an empty stomach Simethicone ND 22772983501 80 MG Orally Active 1 t ablet Four times a after day meals and at bedtime as needed Memantine HCl ND 83717273163 10 MG Orally Active 1 tablet Twice a day Donepezil HCl ND 12647026771 10 MG Oral Active 1 t ablet twice a day at bedtime Carbamazepine ND 41009885893 200 MG Orally Active 1 tablet once a day Claritin ND 54242421769 10 MG Orally December 08, Active 1 tab let Once a day 2018 BuPROPion HCl ER ND 12926912191 300 MG Orally Activ e 1 tablet (XL) Once a day in the morning Calcium NDC 0 Oral Active 1 tab Cipro [facility] 23226110769 500 MG Orally May 12, May 19, Active 1 tabl et every 12 hrs 2018 2018 Oxybutynin [facility] 73921167086 5 MG Orally Apr 27October Active 1 tab let Chloride Twice a day 2018 Benadryl Allergy ND 22981280242 25 MG Orally Active 1 tablet every 8 hrs as needed Imitrex ND 03157018346 50 MG Orally Apr 03, Active 1 tabl et Once a day november 2018 as needed repeat dose 1 dose in 2 hours ( max 2 doses in 24 hours) Carvedilol [facility] 72991122346 6.25 MG Orally Active 1 tablet Twice a day Promethazine HCl [facility] 08785315927 25 MG/ML Active 1 ml as Injection every needed 6 hrs Zantac [facility] 33815651020 150 MG Orally Active 1 tabl et Once a day at bedtime Duloxetine HCl [facility] 41198258344 60 MG Orally Active 1 capsule Once a day Folic Acid-Vit [facility] 48791-85662 0.8-10-0.115 MG Activ e 1 tablet B6-Vit B12 Orally Once a day Divalproex ND 06637712421 500 MG Orally Active 1 t ablet Sodium Twice a day Vitamin D [facility] 72749186886 1000 UNIT Active 1 tablet Orally Once a day Diclofenac ND 93172221948 75 MG Orally Active 1 ta blet Sodium Twice a day with food or milk Flonase [facility] 27797273237 50 MCG/DOSE December 08, Active 1 spray in Nasally Twice a 2018 each day nostril Protonix [facility] 11084565102 40 MG Orally Active 1 tabl et Once a day Atorvastatin [facility] 87095583606 20 MG Orally Active 1 tablet Calcium Once a day Trazodone HCl [facility] 69814714499 50 MG Oral Active not defined Gabapentin [facility] 70496733482 800 MG Orally Active 1 t ablet three times a day Ondansetron HCl [facility] 77573569154 4 MG Orally Active 1 tablet every 6 hrs Results Name Result Date Reference Range Unit Abnormali ty Flag Urine Dip Stick ----Appearance yellow and cloudy 20190512 ----SP. Gr 1.015 20190512 ----pH 6.0 20190512 ----Ketone NEG 20190512 ----Glucose NEG [id number] ----Blood 2+ 20190512 ----Protein 1+ 20190512 ----Nitrite POS [id number] ----Leukocytes 3+ 20190512 Summary Purpose eClinicalWorks Submission
[2019-11-06] MEDS ORDERED: ACETAMINOPHEN 500 MG TAB ONE (00:47)
--- OUTSIDE RECORDS SUMMARY | 2019-11-06 00:47 | XMS REPORT ---
[...] Date Status Dosage System Date Protonix ND 52667287924 40 MG Orally Active 1 tabl et Once a day Benadryl Allergy ND 29320412204 25 MG Orally Active 1 tablet every 8 hrs as needed Folic Acid-Vit [facility] 53441-37109 0.8-10-0.115 MG Activ e 1 tablet B6-Vit B12 Orally Once a day Calcium NDC 0 Oral Active 1 tab Diclofenac ND 95135408811 75 MG Orally Active 1 ta blet Sodium Twice a day with food or milk Carbamazepine [facility] 17599848498 200 MG Orally Active 1 tablet once a day Ipratropium-Albu [facility] 56553744732 0.5-2.5 (3) Active 3 ml terol MG/3ML Inhalation every 6 hrs Simethicone [facility] 35217970577 80 MG Orally Active 1 t ablet Four times a after day meals and at bedtime as needed Myrbetriq [facility] 80142081444 25 MG Orally Apr 27October Active 1 tab let Once a day 2018 Levothyroxine [facility] 82690934560 25 MCG Orally Apr 27, Active 1 tablet Sodium Once a day 2018 in the morning on an empty stomach Ondansetron HCl [facility] 52309785222 4 MG Orally Active 1 tablet every 6 hrs Gabapentin ND 47024284740 800 MG Orally Active 1 t ablet three times a day Atorvastatin [facility] 32459826004 20 MG Orally Active 1 tablet Calcium Once a day Oxybutynin ND 05970920745 5 MG Oral twice Active 1 tablet Chloride ER a day Claritin [facility] 64222489620 10 MG Orally December 08, Active 1 tab let Once a day 2018 Promethazine HCl [facility] 25693096718 25 MG/ML Active 1 ml as Injection every needed 6 hrs Melatonin [facility] 03305510305 3 MG Orally Active 1 tabl et Once a day at bedtime as needed with food Carvedilol [facility] 60637040142 6.25 MG Orally Active 1 tablet Twice a day Lisinopril [facility] 61309151379 2.5 MG Orally Active 1 t ablet twice a day Donepezil HCl [facility] 94802907284 10 MG Oral Active 1 t ablet twice a day at bedtime Vitamin D [facility] 16508898772 1000 UNIT Active 1 tablet Orally Once a day Duloxetine HCl [facility] 02572363762 60 MG Orally Active 1 capsule Once a day BuPROPion HCl ER [facility] 26568238627 300 MG Orally Activ e 1 tablet (XL) Once a day in the morning Flonase [facility] 11763064366 50 MCG/DOSE December 08, Active 1 spray in Nasally Twice a 2019 each day nostril Imodium A-D [facility] 47418814860 2 MG Orally Active 1 ta blet Four times a as needed day Imitrex ND 92720131033 50 MG Orally Apr 03, Active 1 tabl et Once a day november 2018 as needed repeat dose 1 dose in 2 hours ( max 2 doses in 24 hours) Levothyroxine [facility] 46201839090 200 MCG Orally Active 1 tablet Sodium Once a day on an empty stomach in the morning Topiramate [facility] 21374995907 100 MG Orally Active 1 t ablet twice a day Divalproex [facility] 54246282483 500 MG Orally Active 1 t ablet Sodium Twice a day Zantac [facility] 02463855382 150 MG Orally Active 1 tabl et Once a day at bedtime Memantine HCl [facility] 05532887025 10 MG Orally Active 1 tablet Twice a day Trazodone HCl [facility] 32130236624 50 MG Oral Active not defined Results No Known Results Summary Purpose eClinicalWorks Submission
--- OUTSIDE RECORDS SUMMARY | 2019-11-06 00:47 | XMS REPORT ---
[...] Dosage System Date Date Comp Air [facility] 89897952178 - every 6 hours Jun 16, Active as directed Compressor as needed 2019 Nebulizer Results No Known Results Summary Purpose eClinicalWorks Submission
--- OUTSIDE RECORDS SUMMARY | 2019-11-06 00:48 | XMS REPORT ---
[...] Date Status Dosage System Date Melatonin ND 21483419418 3 MG Orally Active 1 tabl et Once a day at bedtime as needed with food Simethicone ND 30517835335 80 MG Orally Active 1 t ablet Four times a after day meals and at bedtime as needed Calcium NDC 0 Oral Active 1 tab Vitamin D ND 64136758539 1000 UNIT Active 1 tablet Orally Once a day Donepezil HCl ND 20709764045 10 MG Oral Active 1 t ablet twice a day at bedtime Oxybutynin ND 07965996387 5 MG Orally Apr 27October Active 1 tab let Chloride Twice a day 2018 Claritin [facility] 82199073905 10 MG Orally December 08, Active 1 tab let Once a day 2018 Protonix [facility] 17460139342 40 MG Orally Active 1 tabl et Once a day Duloxetine HCl [facility] 21775488548 60 MG Orally Active 1 capsule Once a day Zantac [facility] 33797406198 150 MG Orally Active 1 tabl et Once a day at bedtime Gabapentin ND 53462087306 800 MG Orally Active 1 t ablet three times a day Oxybutynin [facility] 29738889113 5 MG Oral twice Active 1 tablet Chloride ER a day Topiramate [facility] 19514241978 100 MG Active TAKE 1 TABLET BY MOUTH TWICE DAILY BuPROPion HCl ER [facility] 81623265690 300 MG Orally Activ e 1 tablet (XL) Once a day in the morning Imitrex ND 85820205637 50 MG Orally Apr 03, Active 1 tabl et Once a day november 2018 as needed repeat dose 1 dose in 2 hours ( max 2 doses in 24 hours) Benadryl Allergy [facility] 99555722237 25 MG Orally Active 1 tablet every 8 hrs as needed Imodium A-D [facility] 39467859826 2 MG Orally Active 1 ta blet Four times a as needed day Atorvastatin ND 11364168233 20 MG Orally Active 1 tablet Calcium Once a day Levothyroxine [facility] 54998572518 200 MCG Orally Active 1 tablet Sodium Once a day on an empty stomach in the morning Ipratropium-Albu [facility] 23614412153 0.5-2.5 (3) Active 3 ml terol MG/3ML Inhalation every 6 hrs Folic Acid-Vit [facility] [address]38[address]42 0.8-10-0.115 MG Activ e 1 tablet B6-Vit B12 Orally Once a day Flonase [facility] 44456443893 50 MCG/DOSE December 08, Active 1 spray in Nasally Twice a 2018 each day nostril Zofran [facility] 56438331489 4 MG Orally Jun 17, Active 1 tablet every 12 hrs 2019 prn nausea Lisinopril ND 32636488281 2.5 MG Orally Active 1 t ablet twice a day Diclofenac ND 96366967447 75 MG Orally Active 1 ta blet Sodium Twice a day with food or milk Levothyroxine [facility] 62375145416 25 MCG Orally Apr 27, Active 1 tablet Sodium Once a day 2018 in the morning on an empty stomach Memantine HCl [facility] 79347564912 10 MG Orally Active 1 tablet Twice a day Comp Air [facility] 30601609423 - every Jun 16, Active as Compressor hours as needed 2018 dire james Nebulizer Carvedilol [facility] 13400665508 6.25 MG Orally Active 1 tablet Twice a day Carbamazepine [facility] 36147146711 200 MG Orally Active 1 tablet once a day Trazodone HCl [facility] 60244464235 50 MG Oral Active not defined Divalproex [facility] 42580311170 500 MG Orally Active 1 t ablet Sodium Twice a day Ondansetron HCl [facility] 24031358916 4 MG Orally Active 1 tablet every 6 hrs Results Name Result Date Reference Range Unit Abnormali ty Flag Sjogren's Ab, Anti-SSA/-SSB ----Sjogren's <0.2 [id number] 0.0-0.9 AI Anti-SS-A ----Sjogren's <0.2 [id number] 0.0-0.9 AI Anti-SS-B EDWIN w/Reflex ----EDWIN Direct Negative [id number] Negative Comp. Metabolic Panel (14) (CMP) ----Sodium 142 68153830 134-144 mmol/L ----BUN/Creatinine 17 20190627 12-28 Ratio ----Chloride 106 88291099 96-106 mmol/L ----Potassium 5.5 56096531 3.5-5.2 mmol/L H ----Calcium 9.2 53866631 8.7-10.3 mg/dL ----Protein, Total 5.7 97888645 6.0-8.5 g/dL L ----Carbon Dioxide, 23 20190627 20-29 mmol/L Total ----A/G Ratio 1.9 45259823 1.2-2.2 ----eGFR If NonAfricn 38 [id number] >59 mL/min/1.73 L Am ----Bilirubin, Total <0.2 47996078 0.0-1.2 mg/dL ----eGFR If Africn Am 44 [id number] >59 mL/min/1.73 L ----Albumin 3.7 20190627 3.5-4.8 g/dL ----BUN 23 20190627 8-27 mg/dL ----Globulin, Total 2.0 20190627 1.5-4.5 g/dL ----Creatinine 1.38 20190627 0.57-1.00 mg/dL H ----ALT (SGPT) 13 20190627 0-32 IU/L ----Glucose 84 20190627 65-99 mg/dL ----Alkaline 122 20190627 39-117 IU/L H Phosphatase ----AST (SGOT) 13 [id number] 0-40 IU/L Summary Purpose eClinicalWorks Submission
--- OUTSIDE RECORDS SUMMARY | 2019-11-06 00:48 | XMS REPORT ---
[...] Status Dosage System Date Date Carvedilol ND 42802416057 6.25 MG Orally Active 1 tablet Twice a day Lisinopril ND 35258270305 2.5 MG Orally Active 1 t ablet twice a day Carbamazepine ND 05933185277 200 MG Orally Active 1 tablet once a day Ondansetron HCl [facility] 02364020071 4 MG Orally Active 1 tablet every 6 hrs Vitamin D [facility] 22281484613 1000 UNIT Active 1 tablet Orally Once a day Melatonin ND 38392538633 3 MG Orally Active 1 tabl et Once a day at bedtime as needed with food Protonix [facility] 94776797403 40 MG Orally Active 1 tabl et Once a day Imitrex ND 93426593896 50 MG Orally Apr 03, Active 1 tabl et Once a day november 2018 as needed repeat dose 1 dose in 2 hours ( max 2 doses in 24 hours) Donepezil HCl [facility] 34499957971 10 MG Oral Active 1 t ablet twice a day at bedtime Claritin [facility] 78682237339 10 MG Orally December 08, Active 1 tab let Once a day 2018 Duloxetine HCl [facility] 30507503975 60 MG Orally Active 1 capsule Once a day Benadryl Allergy [facility] 54479559928 25 MG Orally Active 1 tablet every 8 hrs as needed Simethicone [facility] 71341184207 80 MG Orally Active 1 t ablet Four times a after day meals and at bedtime as needed Imodium A-D [facility] 65005984486 2 MG Orally Active 1 ta blet Four times a as needed day Gabapentin [facility] 82022117764 800 MG Orally Active 1 t ablet three times a day Oxybutynin [facility] 61016719791 5 MG Oral twice Active 1 tablet Chloride ER a day Ipratropium-Albu [facility] 47123169103 0.5-2.5 (3) Active 3 ml terol MG/3ML Inhalation every 6 hrs Zofran [facility] 99999117111 4 MG Orally Jun 17, Active 1 tablet every 12 hrs 2018 prn nausea Trazodone HCl [facility] 97751931512 50 MG Oral Active not defined Zantac [facility] 16339405534 150 MG Orally Active 1 tabl et Once a day at bedtime Atorvastatin [facility] 40065080152 20 MG Orally Active 1 tablet Calcium Once a day Levothyroxine [facility] 49190344588 25 MCG Orally Apr 27, Active 1 tablet Sodium Once a day 2018 in the morning on an empty stomach Divalproex [facility] 54444195824 500 MG Orally Active 1 t ablet Sodium Twice a day Levothyroxine NDC 28521904599 200 MCG Orally Active 1 tablet Sodium Once a day on an empty stomach in the morning Flonase ND 46610065450 50 MCG/DOSE December 08, Active 1 spray Nasally Twice a 2019 in each day nostril Diclofenac ND 39430153047 75 MG Orally Active 1 ta blet Sodium Twice a day with food or milk BuPROPion HCl ER ND 90394669740 300 MG Orally Activ e 1 tablet (XL) Once a day in the morning Memantine HCl ND 93211716846 10 MG Orally Active 1 tablet Twice a day Promethazine HCl [facility] 93581959679 25 MG/ML Inactive 1 ml as Injection every needed 6 hrs Folic Acid-Vit [facility] 71276-96473 0.8-10-0.115 MG Activ e 1 tablet B6-Vit B12 Orally Once a day Topiramate [facility] 12060925022 100 MG Active TAKE 1 TABLET BY MOUTH TWICE DAILY Oxybutynin [facility] 76277571704 5 MG Orally Apr 27October Active 1 tab let Chloride Twice a day 2018 Calcium NDC 0 Oral Active 1 tab Results Name Result Date Reference Range Unit Abnormali ty Flag Basic Metabolic Panel ----Calcium Level 8.4 85309859 8.5-10.1 mg/dL L ----Glomerular Filtration 33 [id number] =/>90 mL L Rate ----Creatinine 1.56 [id number] 0.55-1.3 mg/dL H ----BUN Blood Urea Nitrogen 34 21630203 7-18 mg/dL H ----Glucose Level 85 [id number] 74-106 mg/dL ----Sodium Level 143 82554447 136-145 mmol/L ----Potassium 5.3 [id number] 3.5-5.1 mmol/L H ----Chloride Level 114 [id number] 98-107 mmol/L H ----Bicarbonate 26 20190616 21-32 mmol/L Summary Purpose eClinicalWorks Submission
--- NOTE | 2019-11-06 02:14 | ER ---
Nurse's Notes [facility] Name: Macrina Mason Age: 73 yrs Sex: Female : 1945 Arrival Date: 11/06/2019 Time: 00:24 Bed 4 Private MD: Diagnosis: Contusion of unspecified part of head;Sprain of joints and ligaments of other parts of neck;Concussion without loss of consciousness Presentation: 11/05 00:24 Chief complaint: EMS states: patient was in the bathroom, the patient came with the raised toilet seat when it tipped over. hitting her left side of the face on the wall. denies LOC. takes Aspirin but no blood thinners. complains of pain on the left side of the face. with bruising noted on the outer cantus of the left eye. Coronavirus screen: Proceed with normal triage. Patient denies a cough. Patient denies shortness of breath or difficulty breathing. Patient denies measured and/or subjective temperature greater than 100.4F prior to today's visit. Ebola Screen: No symptoms or risks identified at this time. Initial Sepsis Screen: Does the patient meet any 2 criteria? No. Patient's initial sepsis screen is negative. Does the patient have a suspected source of infection? No. Patient's initial sepsis screen is negative. Risk Assessment: Do you want to hurt yourself or someone else? Patient reports no desire to harm self or others. Onset of symptoms was November 06, 2019 at 00:00. 00:24 Method Of Arrival: EMS: [facility] 00:24 Acuity: [place] 3 rv Triage Assessment: 00:29 General: Appears comfortable, Behavior is calm, cooperative. Pain: Complains of pain in rv left eye and left rastafarian Pain currently is 7 out of 10 on a pain scale. EENT: No signs and/or symptoms were reported regarding the EENT system. Neuro: Level of Consciousness is awake, alert, obeys commands, Oriented to person, place, time, situation, Moves all extremities. Full function. Cardiovascular: Patient's skin is warm and dry. Rhythm is sinus rhythm. Respiratory: Airway is patent Respiratory effort is even, unlabored. Derm: Skin is intact. Historical: - Allergies: 00:29 PENICILLINS; rv - PMHx: 00:29 allergies; Back pain; Bipolar disorder; COPD; DVT; Schizophrenia; UTI; rv - Immunization history:: Adult Immunizations up to date. - Social history:: Smoking status: Patient denies any tobacco usage or history of. Screenin:30 Abuse screen: Denies threats or abuse. Denies injuries from another. Nutritional rv screening: No deficits noted. Tuberculosis screening: No symptoms or risk factors identified. Fall Risk Fall in past 12 months (25 points). Secondary diagnosis (15 points) impaired mobility, No IV (0 pts). Ambulatory Aid- None/Bed Rest/Nurse Assist (0 pts). Gait- Weak (10 pts.). Mental Status- Overestimates/Forgets Limitations (15 pts.). Total Sandoval Fall Scale indicates High Risk Score (45 or more points). Fall prevention measures have been instituted. Side Rails Up X 2 Frequent Obs/Assessments Occuring As available patient and family educated on Fall Prevention Program and Strategies. Assessment: 00:48 Reassessment: patient sent to ct scan via stretcher. General: Appears in no apparent mg2 distress. comfortable, Behavior is calm, cooperative. Pain: Complains of pain in face and neck. Neuro: Level of Consciousness is awake, alert, obeys commands, Oriented to person, place, time, situation. Cardiovascular: Capillary refill < 3 seconds Patient's skin is warm and dry. Respiratory: Airway is patent Respiratory effort is even, unlabored, Respiratory pattern is regular, symmetrical. GI: No signs and/or symptoms were reported involving the gastrointestinal system. : No signs and/or symptoms were reported regarding the genitourinary system. EENT: No signs and/or symptoms were reported regarding the EENT system. Derm: Bruising that is dark purple, on left side of the eye area. Musculoskeletal: Circulation, motion, and sensation intact. Capillary refill < 3 seconds. 00:53 Reassessment: patient sent to ct scan via stretcher. mg2 02:30 Reassessment: C-collar removed from patient at this time; Patient drinking water, lp1 sitting up at 45 degrees for comfort. 02:44 Reassessment: [facility] contacted for discharge; will call back with transportation lp1 arrangements. 04:17 Reassessment: Patient appears in no apparent distress at this time. mg2 06:06 Reassessment: Patient and/or family updated on plan of care and expected duration. Pain rv level reassessed. Patient is alert, oriented x 3, equal unlabored respirations, skin warm/dry/pink. Vital Signs: 00:24 BP 141 / 69; Pulse 66; Resp 17; Temp 97.7; Pulse Ox 100% ; Weight 116.12 kg; Height 5 rv ft. 11 in. (180.34 cm); Pain 7/10; 02:50 BP 141 / 63; Pulse 60; Resp 16; Pulse Ox 100% on R/A; lp1 03:40 BP 153 / 60; Pulse 55; Resp 15; Pulse Ox 99% on R/A; rv 04:17 BP 115 / 59; Pulse 56; Resp 18; Pulse Ox 100% on R/A; mg2 05:00 BP 123 / 60; Pulse 59; Resp 12; Pulse Ox 100% on R/A; rv 06:00 BP 147 / 64; Pulse 59; Resp 12; Pulse Ox 99% on R/A; rv 00:24 Body Mass Index 35.70 (116.12 kg, 180.34 cm) rv [place] Coma Score: 03:42 Eye Response: spontaneous(4). Verbal Response: oriented(5). Motor Response: obeys tw4 commands(6). Total: 15. ED Course: 00:24 Patient arrived in ED. rv 00:27 Josh Leiva MD is Attending Physician. tw4 00:28 Triage completed. rv 00:29 Arm band placed on Patient placed in the treatment room, on a stretcher, Patient rv notified of wait time. 00:30 Patient has correct armband on for positive identification. Bed in low position. Call rv light in reach. Side rails up X2. radiation monitor on. Pulse ox on. NIBP on. 00:30 Rigid cervical collar applied and checked by physician. rv 00:47 Danny Crawford, [place] is Primary Nurse. mg2 00:49 No provider procedures requiring assistance completed. Patient did not have IV access mg2 during this emergency room visit. 01:21 CT Head C Spine In Process Unspecified. EDMS 01:22 CT Facial Bones W/O Con In Process Unspecified. EDMS Administered Medications: 00:48 Drug: Tylenol 1000 mg Route: PO; mg2 03:41 Follow up: Response: No adverse reaction rv Outcome: 02:14 Discharge ordered by . tw4 07:28 Patient left the ED. sv Signatures: Dispatcher [employer] EDMS Libby, Autumn, RN RN sv Daylin Perea, RN RN lp1 Josh Leiva MD MD tw4 Danny Crawford, RN RN mg2 Alex Pinto RN RN rv
--- NOTE | 2019-11-06 02:14 | EDPHYS ---
Physician Documentation [facility] Name: Macrina Msaon Age: 73 yrs Sex: Female : 1945 Arrival Date: 11/06/2019 Time: 00:24 Bed 4 Private MD: ED Physician Josh Leiva HPI: 11/05 03:42 This 73 yrs old Female presents to ER via EMS with complaints of head injury tw4 after fall. 03:42 The patient or guardian reports injury, pain. The complaints affect the left eye. tw4 Context of injury: The problem was sustained at a [facility] or assisted living facility. Onset: The symptoms/episode began/occurred just prior to arrival. Associated signs and symptoms: Loss of consciousness: This patient did not experience any loss of consciousness. Pertinent positives: neck pain, Pertinent negatives: the patient has not experienced a loss of conciousness, biting tongue, double vision. Severity of symptoms: At their worst the symptoms were moderate, in the emergency department the symptoms are unchanged. The patient has not experienced similar symptoms in the past. Historical: - Allergies: 00:29 PENICILLINS; rv - PMHx: 00:29 allergies; Back pain; Bipolar disorder; COPD; DVT; Schizophrenia; UTI; rv - Immunization history:: Adult Immunizations up to date. - Social history:: Smoking status: Patient denies any tobacco usage or history of. ROS: 03:42 Constitutional: Negative for fever, chills, and weight loss, Eyes: Negative for injury, tw4 pain, redness, and discharge, Cardiovascular: Negative for chest pain, palpitations, and edema, Respiratory: Negative for shortness of breath, cough, wheezing, and pleuritic chest pain, Abdomen/GI: Negative for abdominal pain, nausea, vomiting, diarrhea, and constipation, Back: Negative for injury and pain, MS/Extremity: Negative for injury and deformity, Skin: Negative for injury, rash, and discoloration, Neuro: Negative for headache, weakness, numbness, tingling, and seizure. Exam: 03:42 Constitutional: This is a well developed, well nourished patient who is awake, alert, tw4 and in no acute distress. 03:42 Chest/axilla: Normal chest wall appearance and motion. Nontender with no deformity. No lesions are appreciated. Cardiovascular: Regular rate and rhythm with a normal S1 and S2. No gallops, murmurs, or rubs. Normal PMI, no JVD. No pulse deficits. Respiratory: Lungs have equal breath sounds bilaterally, clear to auscultation and percussion. No rales, rhonchi or wheezes noted. No increased work of breathing, no retractions or nasal flaring. Abdomen/GI: Soft, non-tender, with normal bowel sounds. No distension or tympany. No guarding or rebound. No evidence of tenderness throughout. Back: No spinal tenderness. No costovertebral tenderness. Full range of motion. MS/ Extremity: Pulses equal, no cyanosis. Neurovascular intact. Full, normal range of motion. Neuro: Awake and alert, GCS 15, oriented to person, place, time, and situation. Cranial nerves II-XII grossly intact. Motor strength 5/5 in all extremities. Sensory grossly intact. Cerebellar exam normal. Normal gait. 03:42 Head/face: Noted is contusion, that is superficial, of the left eye. Vital Signs: 00:24 BP 141 / 69; Pulse 66; Resp 17; Temp 97.7; Pulse Ox 100% ; Weight 116.12 kg; Height 5 rv ft. 11 in. (180.34 cm); Pain 7/10; 02:50 BP 141 / 63; Pulse 60; Resp 16; Pulse Ox 100% on R/A; lp1 03:40 BP 153 / 60; Pulse 55; Resp 15; Pulse Ox 99% on R/A; rv 04:17 BP 115 / 59; Pulse 56; Resp 18; Pulse Ox 100% on R/A; mg2 05:00 BP 123 / 60; Pulse 59; Resp 12; Pulse Ox 100% on R/A; rv 06:00 BP 147 / 64; Pulse 59; Resp 12; Pulse Ox 99% on R/A; rv 00:24 Body Mass Index 35.70 (116.12 kg, 180.34 cm) rv [place] Coma Score: 03:42 Eye Response: spontaneous(4). Verbal Response: oriented(5). Motor Response: obeys tw4 commands(6). Total: 15. MDM: 00:27 Patient medically screened. tw4 11/05 00:27 Order name: CT Head C Spine tw4 11/05 00:34 Order name: CT Facial Bones W/O Con tw4 Administered Medications: 00:48 Drug: Tylenol 1000 mg Route: PO; mg2 03:41 Follow up: Response: No adverse reaction rv Disposition: 11/06/19 02:14 Discharged to Home. Impression: Contusion of unspecified part of head, Sprain of joints and ligaments of other parts of neck, Concussion without loss of consciousness. - Condition is Stable. - Discharge Instructions: Contusion, Head Injury, Adult, [id number]. - Prescriptions for Tramadol 50 mg Oral Tablet - take 1 tablet by ORAL route every 8 hours as needed; 12 tablet. - SBAR form, Medication Reconciliation Form, Thank You Letter, Antibiotic Education, Prescription Opioid Use form. - Follow up: Private Physician; When: Upon discharge from the Emergency Department; Reason: Recheck today's complaints, Continuance of care, Re-evaluation by your physician. - Problem is new. - Symptoms have improved. Signatures: Dispatcher [employer] EDAutumn Ch RN RN Josh Thompson MD MD tw4 Danny Crawford RN RN mg2 Alex Pinto RN RN rv Corrections: (The following items were deleted from the chart) 07:28 02:14 11/06/2019 02:14 Discharged to Home. Impression: Contusion of unspecified part of sv head; Sprain of joints and ligaments of other parts of neck; Concussion without loss of consciousness. Condition is Stable. Forms are Medication Reconciliation Form, Thank You Letter, Antibiotic Education, Prescription Opioid Use. Follow up: Private Physician; When: Upon discharge from the Emergency Department; Reason: Recheck today's complaints, Continuance of care, Re-evaluation by your physician. Problem is new. Symptoms have improved. tw4
[2019-11-06 07:34] VITALS: TEMP 97.7
[2019-11-06 07:42] VITALS: BP 147/64; O2SAT 99
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
--- NOTE | 2019-11-06 11:40 | RAD REPORT ---
EXAM DESCRIPTION: CT - Facial Bones W/ Mpr - 11/06/2019 5:36 am CLINICAL HISTORY: SMASH INJURY COMPARISON: None. TECHNIQUE: CT Head and Cervical spine WO contrast, CT MAXILLOFACIAL WITHOUT IV CONTRAST on 11/06/2019 12:27 AM CDT This exam was performed according to our departmental dose-optimization program, which includes autom ated exposure control, adjustment of the mA and/or kV according to patient size and/or use of iterati ve reconstruction technique. FINDINGS: Brain: There is no acute hemorrhage, mass effect or midline shift. Bhagat-white differentiat ion is preserved. There is no hydrocephalus. There is no significant volume loss for age. The calvarium is intact. There is a left periorbital scalp hematoma. There is moderate thickening of the right maxillary sinus. Mastoid air cells are clear. Cervical Spine: There is no acute fracture. Alignment is anatomic. There is moderate diffuse bilatera l facet arthritis. Disc spaces are maintained. Vertebral body heights are preserved. Soft tissues are unremarkable. IMPRESSION: No acute fracture or intracranial hemorrhage. Electronically signed by: Ranjith Velasquez MD 11/06/2019 1:34 AM CDT Due to temporary technical issues with the PACS/Fluency reporting system, reports are being signed by the in house radiologist as a courtesy to ensure prompt reporting. The interpreting radiologist is f ully responsible for the content of the report.
== END 2019-11-06 07:28 | disposition home or self-care (01) ==
LOC: ER 00:19
DX: S06.0X0A Concussion without loss of consciousness, initial encounter (principal); S13.8XXA Sprain of joints and ligaments of other parts of neck, initial encounter; S00.93XA Contusion of unspecified part of head, initial encounter; W19.XXXA Unspecified fall, initial encounter; Y93.9 Activity, unspecified; Y92.129 Unspecified place in nursing home as the place of occurrence of the external cause; Z88.0 Allergy status to penicillin
CPT/HCPCS: 70450; 70486; 72125; 76377; 99284

== ENCOUNTER 2020-02-20 16:36 | Inpatient (IN) | payer OTHER, BC ==
--- OUTSIDE RECORDS SUMMARY | 2020-02-20 16:39 | XMS REPORT ---
[...] Active Problem Mixed hyperlipidemia E78.2 Active Medications Medication Code Code Instructions Start End Status Dosage System Date Date [facility] [id number] 1 % Externally January 03, Feb 02, Active 1 application twice a day 2019 2019 to affected area Results No Known Results Summary Purpose eClinicalWorks Submission
--- OUTSIDE RECORDS SUMMARY | 2020-02-20 16:39 | XMS REPORT | Continuity of Care Document ---
:1945 Author Organization [facility] t Address [address] [place] [address] Care Team Providers Name Role Phone Unavailable Unavailable Unavailable Payers Payer Name Policy Type Policy Number Effective Date Expiration Date S ource Problems Condition Condition Condition Status Onset Resolution Last Treating Co mments Source Name Details Category Date Date Treatment Clinician Date Unsteady Unsteady Problem [facility] Bipolar Bipolar Problem Active [facility] disorder [facility] Acquired Acquired Problem [facility] hypothyroi hypothyroi [facility] dism [facility] COPD COPD Problem Active [facility] (chronic (chronic [facility] - obstructiv obstructiv Me moria e e l pulmonary pulmonary Outp ati disease) disease) ent Clinics Anxiety Anxiety Problem [facility] Allergic Allergic Problem [facility] Hyperthyro Hyperthyro Problem Active [facility] idism idism [facility] Degenerati Degenerati Problem Active [facility] ve disc ve disc [facility] disease, disease, [facility]ori a lumbar lumbar l Outpati ent Clinics Depression Depression Problem [facility] HTN HTN Problem Active [facility] (hypertens (hypertens [facility] - ion) ion) [facility] Dementia Dementia Problem [facility] without without [facility] behavioral behavioral Me moria disturbanc disturbanc l e, e, Outpati unspecifie unspecifie en t d dementia d dementia Cl inics type type Pure Pure Problem Active [facility] hyperglyce hyperglyce [facility] - ridemia ridemia [facility] Lumbar Lumbar Problem Active [facility] disc disc [facility] herniation herniation Me moria l [facility] Primary Primary Problem Active [facility] osteoarthr osteoarthr [facility] both knees [facility] Mixed Mixed Problem Active [facility] hyperlipid hyperlipid [facility] - emia emia [facility] Swelling Swelling Problem [facility] Migraines Migraines Problem [facility] Overactive Overactive Problem Active [facility] Other Other Problem Active [facility] chronic chronic [facility] pain [facility] CKD CKD Problem Active [facility] (chronic (chronic [facility] kidney kidney [facility] disease), disease), l stage III stage III Outp ati ent Clinics Dry eye Dry eye Problem Active [facility] syndrome syndrome [facility] of both of both [facility] eyes eyes l [facility] Allergies, Adverse Reactions, Alerts Allergy Allergy Status Severity Reaction(s) Onset Inactive Treating Comm ents Source Name Type Date Date Clinician No Known DA Active [facility] 08[facility] [facility] 00:00: [facility] 00 are [place] Medications Ordered Filled Start Stop Current Ordering Indication Dosage Frequency Signature Comments Components Source Medication Medication Date Date Medication? Clinician (SIG) Name Name Divalproex Divalproex Yes [place] [address] [facility] Sodium Sodium [facility] Procedures This patient has no known procedures. Encounters Start End Encounter Admission Attending Care Care Encounter Source Date/Time Date/Time Type Type Clinicians Facility Department ID 2020-02-09 2020-02-09 Outpatient Anna Johnson [id number] [facility] 16:59:00 16:59:00 t [employer] [facility] Medicine [facility] 2020-02-05 2020-02-05 Outpatient Anna Johnson [id number] [facility] 17:16:00 17:16:00 t [employer] [facility] Medicine [facility] 2020-01-23 2020-01-23 Outpatient Anna Johnson [id number] [facility] 10[facility]32:00 10:32:[address] [place] [address] [place] - [address] [facility] Medicine l Medicine Outpati ent Clinics 2020-01-15 2020-01-15 [facility] [id number] 09:59:00 09:59:[address] [place] [address] [place] - Drive [facility] Medicine l Medicine Outpati ent Clinics 2020-01-10 2020-01-10 [facility] [id number] [address] 14:25:00 14:25:00 [place] [employer] [place] s - Drive [facility] Medicine l Medicine Outpati ent Clinics 2020-01-08 2020-01-08 [facility] [id number] 14[facility]20:00 14:20:00 [place] [employer] s - Drive [facility] Medicine l Medicine Outpati ent Clinics 2020-01-07 2020-01-07 [facility] [id number] 19:54:00 19:54:00 t [facility] - Road [facility] l Medicine Outpati ent Clinics 2020-01-04 2020-01-04 [facility] [id number] 13:37:00 13:37:00 [place] [employer] s - Drive [facility] Medicine l Medicine Outpati ent Clinics 2019-09-13 2019-09-13 [facility] [id number] 09:14:00 09:14:00 [place] [employer] - Drive [facility] Medicine l Medicine Outpati ent Clinics 2019-07-01 2019-07-01 [facility] [id number] 15:38:00 15:38:00 [place] [employer] [place] [facility] - Drive [facility] Medicine l Medicine Outpati ent Clinics 2019-06-27 2019-06-27 [facility] [id number] [facility] 10:00:00 10:00:00 [place] [employer] [place] [facility] - Drive [facility] Medicine l Medicine Outpati ent Clinics 2019-06-21 2019-06-21 [facility] [id number] [facility] 14:45:00 14:45:00 [place] [employer] - Drive [facility] l Medicine Outpati ent Clinics 2019-06-16 2019-06-16 [facility] [id number] [facility] 15:42:00 15:42:[address] [place] [address] [place] - Drive [facility] Medicine l Medicine Outpati ent Clinics 2019-06-14 2019-06-14 [facility] [id number] [facility] 10:40:00 10:40:[address] [place] [address] [place] - Drive [facility] Medicine l Medicine Outpati ent Clinics 2019-06-06 2019-06-06 [facility] [id number] 11:00:00 11:00:[address] [place] [address] [place] - Drive [facility] Medicine l Medicine Outpati ent Clinics 2019-06-05 2019-06-05 [facility] [id number] [facility] 16:47:00 16:47:[address] [place] [address] [place] - Drive [facility] Medicine l Medicine Outpati ent Clinics 2019-05-12 2019-05-12 [facility] [id number] 15:40:00 15:40:[address] [place] [address] [place] - Drive [facility] Medicine Medicine Outpati ent Clinics 2019-04-27 2019-04-27 [facility] [id number] 16:10:00 16:10:[address] [place] [address] [place] - Drive [facility] Medicine Medicine Outpati ent Clinics 2019-04-27 2019-04-27 [facility] [id number] 11:20:00 11:20:[address] [place] [address] [place] - Drive [facility] Medicine Medicine Outpati ent Clinics 2019-04-03 2019-04-03 [facility] [id number] 12:04:00 12:04:[address] [place] [address] [place] - Drive [facility] Medicine Medicine Outpati ent Clinics 2019-03-28 2019-03-28 [facility] [id number] 13:40:00 13:40:[address] [place] [address] [place] - Drive [facility] l Medicine Outpati ent Clinics 2019-03-21 2019-03-21 [facility] [id number] [facility] 15:40:00 15:40:00 [place] [facility] ent [facility] 2019-03-14 2019-03-14 [facility] [id number] 13:13:00 13:13:00 t [facility] 2019-03-13 2019-03-13 Outpatient Anna Annat [id number] 14:00:00 14:00:00 t [facility] ent [facility] 2018-12-08 2018-12-08 Outpatient Anna nAnat [id number] 15:00:00 15:00:00 t [facility] Results Test Description Test Time Test Comments Results Result Comments Source VALPROIC ACID (DEPAKENE) 2019-08-31 07:37:00 Test Item Value Reference Range Interpretation Comme nts VALPROIC ACID (DEPAKENE) (test code = VALP) 45.7 ug/mL 50.0-100.0 L HGBA1C - GLYCOSYLATED [id number] 14:38:00 Test Item Value Reference Range Interpretation Comments GLYCOSYLATED HEMOGLOBIN (HA1C) (test 4.7 % 4.0-6.0 N code = GLYHGB) URINALYSIS [id number] 13:31:00 Test Item Value Reference Range Interpretation Comments UA COLOR (test code = COLU) YELLOW YELLOW UA APPEARANCE (test code = CLOUDY CLEAR A APPU) UA GLUCOSE DIPSTICK (test code NEGATIVE MG/AL NEGATIVE = DGLUU) UA BILIRUBIN DIPSTICK (test NEGATIVE NEGATIVE code = BILU) UA KETONE DIPSTICK (test code NEGATIVE MG/DL NEGATIVE = KETU) UA SPECIFIC GRAVITY (test code 1.020 1.000-1.030 = SGU) UA BLOOD DIPSTICK (test code = 1+ NEGATIVE A DAMIEN) UA PH DIPSTICK (test code = 5.5 4.5-8.5 RJ) UA PROTEIN DIPSTICK (test code 30 (1+) NEGATIVE A = PROU) UA UROBILINOGEN DIPSTICK (test 0.2 EU/dL <=1.0 code = URO) UA NITRITE DIPSTICK (test code POSITIVE NEGATIVE A = MARY ALICE) UA LEUKOCYTE ESTERASE DIPSTICK 3+ NEGATIVE (test code = LEUU) UA WBC (test code = WBCU) >100 /HPF 0-3 A UA RBC (test code = RBCU) 0-3 /HPF 0-3 UA EPITHELIAL CELLS (test code 3+ /LPF NONE-FEW = EPIU) UA BACTERIA (test code = BACU) 3+ /HPF NEGATIVE A URINALYSIS [id number] 13:20:00 Test Item Value Reference Range Interpretation Comments UA COLOR (test code = COLU) YELLOW YELLOW UA APPEARANCE (test code = CLOUDY CLEAR A APPU) UA GLUCOSE DIPSTICK (test code NEGATIVE MG/AL NEGATIVE = DGLUU) UA BILIRUBIN DIPSTICK (test NEGATIVE NEGATIVE code = BILU) UA KETONE DIPSTICK (test code NEGATIVE MG/DL NEGATIVE = KETU) UA SPECIFIC GRAVITY (test code 1.020 1.000-1.030 = SGU) UA BLOOD DIPSTICK (test code = 1+ NEGATIVE A DAMIEN) UA PH DIPSTICK (test code = 5.5 4.5-8.5 RJ) UA PROTEIN DIPSTICK (test code 30 (1+) NEGATIVE A = PROU) UA UROBILINOGEN DIPSTICK (test 0.2 EU/dL <=1.0 code = URO) UA NITRITE DIPSTICK (test code POSITIVE NEGATIVE A = MARY ALICE) UA LEUKOCYTE ESTERASE DIPSTICK 3+ NEGATIVE (test code = LEUU) UA WBC (test code = WBCU) /HPF 0-3 UA RBC (test code = RBCU) /HPF 0-3 UA EPITHELIAL CELLS (test code /LPF NONE-FEW = EPIU) UA BACTERIA (test code = BACU) /HPF NEGATIVE BASIC METABOLIC [id number] 12:49:00 Test Item Value Reference Range Interpretation Comments SODIUM (test code = 140 mmol/L 136-145 N NA) POTASSIUM (test code 5.1 MMOL/L 3.6-5.2 N = K) CHLORIDE (test code = 108 MMOL/L 98-110 N CL) CARBON DIOXIDE (test 23 mEq/L 24-32 L code = CO2) GLUCOSE (test code = 88 mg/dL 70-110 N GLU) BLOOD UREA NITROGEN 29 mg/dL 7-18 H (test code = BUN) GLOMERULAR FILTRATION 36 >60 L The es timated RATE (test code = glomerular filtration GFR) rate is compute d usingpatient ra ce, age (>18), sex, and serum creatinine. If anyof the needed data elements are mi ssing the Laboratory cannot compute an isma mation of the glomerul ar filtration rate . CREATININE (test code 1.53 mg/dL 0.60-1.30 H = CREAT) CALCIUM (test code = 9.2 mg/dL 8.6-10.4 N CA) BASIC METABOLIC [id number] 12:43:00 Test Item Value Reference Range Interpretation Comments SODIUM (test code = mmol/L 136-145 NA) POTASSIUM (test code 5.1 MMOL/L 3.6-5.2 N = K) CHLORIDE (test code = MMOL/L 98-110 CL) CARBON DIOXIDE (test mEq/L 24-32 code = CO2) GLUCOSE (test code = mg/dL 70-110 GLU) BLOOD UREA NITROGEN 29 mg/dL 7-18 H (test code = BUN) GLOMERULAR FILTRATION 36 >60 L The es timated RATE (test code = glomerular filtration GFR) rate is compute d usingpatient ra ce, age (>18), sex, and serum creatinine. If anyof the needed data elements are mi ssing the Laboratory cannot compute an isma mation of the glomerul ar filtration rate . CREATININE (test code 1.53 mg/dL 0.60-1.30 H = CREAT) CALCIUM (test code = mg/dL 8.6-10.4 CA) CBC W/AUTO [id number] 12:02:00 Test Item Value Reference Range Interpretation Comments WHITE BLOOD CELL (test code = WBC) 6.89 K/mm3 5.0-12.0 N RED BLOOD CELL (test code = RBC) 2.93 M/mm3 4.20-5.40 L HEMOGLOBIN (test code = HGB) 9.2 G/DL 12.0-16.0 L HEMATOCRIT (test code = HCT) 30.0 % 36.0-46.0 L MEAN CELL VOLUME (test code = MCV) 102 fL 81-99 H MEAN CELL HGB (test code = MCH) 31.4 PGM 27-31 H MEAN CELL HGB CONCENTRATION (test 30.7 G/DL 33-37 L code = MCHC) RED CELL DISTRIBUTION WIDTH (test 13.3 % 11.6-16.2 N code = RDW) PLATELET COUNT (test code = PLT) 190 K/mm3 130-400 N MEAN PLATELET VOLUME (test code = 11.3 fl 7.4-10.4 H MPV) NEUTROPHIL % (test code = NT%) 64.0 % 43-65 N IMMATURE GRANULOCYTE % (test code 0.4 % 0.0-2.0 N = IG%) LYMPHOCYTE % (test code = LY%) 21.2 % 20.5-45.5 N MONOCYTE % (test code = MO%) 7.5 % 5.5-11.7 N EOSINOPHIL % (test code = EO%) 6.5 % 0.9-2.9 H BASOPHIL % (test code = BA%) 0.4 % 0.2-1.0 N NUCLEATED RBC % (test code = 0.0 % 0-1.0 N NRBC%) NEUTROPHIL # (test code = NT#) 4.40 K/mm3 2.2-4.8 N LYMPHOCYTE # (test code = LY#) 1.46 K/mm3 1.3-2.9 N MONOCYTE # (test code = MO#) 0.52 K/mm3 0.3-0.8 N EOSINOPHIL # (test code = EO#) 0.45 K/MM3 0.0-0.2 H BASOPHIL # (test code = BA#) 0.03 K/mm3 0.0-0.1 N LIPID PROFILE (CORONARY RISK)2019-08-27 12:09:00 Test Item Value Reference Range Interpretation Comments TRIGLYCERIDES (test 149 mg/dL 35-160 N N-acetyl -p-benzoquinone code = TRIG) imine (NAPQI), a metabolite ofacetaminophen (paracetamol), may generate errone ously lowresults in s amples for patients th at have taken toxic dos esof acetaminophen (paracetamol). CHOLESTEROL (test 211 mg/dL 50-200 H code = CHOL) HDL CHOLESTEROL (test 50 mg/dL 35-85 N code = HDL) LIPOPROTEIN LDL TORI 131 MG/DL 10-130 H (test code = LDLC) CORONARY RISK FACTOR 4.22 (test code = RISK) CHOL/HDL RISK MALE: 1/2 AVG 3.43 FEMALE: 1/2 AV G 3.27 AVG 4.97 AV G 4.44 2X AVG 9.55 2X AV G 7.05 3X AVG 23.39 3X AVG 11.04~~~~~~~~~~ ~~~~~~~~ ~~~~~~~~~~~~~~~ ~~~~~~~~ ~~~~~~~~~~~~~~~ ~~~~Yudith onal Cholestero l Education (NCEP ) Guidelines:~~~~ ~~~~~~~~ ~~~~~~~~~~~~~~~ ~~~~~~~~ ~~~~~~~~~~~~~~~ ~~~~~~~~ ~~ HDL Cholesterol<4 0mg/dL: HDL Cholesterol (Major risk factor for CHD)>60mg/dL: H DL Cholesterol (Ne gative risk factor for CHD)40-59mg/dL: Borderline Risk LD L Cholesterol<1 00mg/dL: Desirable LDL-C [id number] 0-159mg/ dL: Borderline High Risk LDL-C [id number] 0-189mg/ dL: High risk L DL-C concentration H DL-LDL Cholesterol is affected by a number of factors suchas smoking, age and sex.~~~~~~~~~~~ ~~~~~~~~ ~~~~~~~~~~~~~~~ ~~~~~~~~ ~~~~~~~~~~~~~~~ ~~~ THYROID STIMULATING [id number] 12:09:00 Test Item Value Reference Range Interpretation Comments THYROID STIMULATING HORMONE (test 8.41 mIU/mL 0.38-5.60 H code = TSH)
--- OUTSIDE RECORDS SUMMARY | 2020-02-20 16:39 | XMS REPORT ---
[...] R26.81 Active Problem Overactive bladder N32.81 Active Assessment Dysuria R30.0 Active Problem Dry eye syndrome of both [...]
--- OUTSIDE RECORDS SUMMARY | 2020-02-20 16:40 | XMS REPORT ---
[...] End Status Dosage System Date Date Divalproex [facility] 31881918987 250 MG Orally Active 3 t ablets Sodium Twice a day Results No Known Results Summary Purpose eClinicalWorks Submission
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
--- OUTSIDE RECORDS SUMMARY | 2020-02-20 16:40 | XMS REPORT ---
[...] Mixed hyperlipidemia E78.2 Active Medications Medication Code System Code Instructions Start Date End Date Status Dosage Bactrim DS [facility] 19237704496 800-160 MG Orally January 14, January 24, Activ e 1 tablet Twice a day 2019 2019 Results No Known Results Summary Purpose eClinicalWorks Submission
[2020-02-20 17:46] LABS: Urine Bacteria 20-50 /HPF (<20)
--- NOTE | 2020-02-20 17:46 | RAD REPORT ---
EXAM DESCRIPTION: CT - Head Brain Wo Cont - 02/20/2020 5:34 pm CLINICAL HISTORY: Alteration of awareness/confusion/tremors COMPARISON: November 2019 TECHNIQUE: Computed axial tomography of the head was obtained. IV contrast was not requested. All CT scans are performed using dose optimization technique as appropriate and may include automated exposure control or mA/KV adjustment according to patient size. FINDINGS: An intracranial bleed is not seen . The ventricles are normal in caliber. No extra-axial fluid collection is noted. Mild low-density areas within periventricular, deep and subcortical white matter likely represent isc hemic changes secondary to small vessel disease. Fluid within the sinuses/ mastoids is not seen. IMPRESSION: No acute intracranial abnormality is seen. If patient's symptoms persist MRI of the bra in would be recommended.
[2020-02-20 17:47] LABS: Urine Blood TRACE (NEG); Urine Glucose NEGATIVE (NEG); Urine Protein NEGATIVE (NEG); Urine pH 5.5 (5.0-7.0)
[2020-02-20 17:47] LABS: Urine Culture Reflex Order NOT NEEDED; Urine Mucus 2+ /HPF (NONE SEEN)
[2020-02-20 18:18] LABS: ALT/SGPT 10 U/L (12-78); AST/SGOT 9 U/L (15-37); Albumin 2.8 g/dL (3.4-5.0); Alkaline Phosphatase 99 U/L (45-117); BUN Blood Urea Nitrogen 55 mg/dL (7-18); Bicarbonate 27 mmol/L (21-32); Bilirubin Direct < 0.1 mg/dL (0-0.2); Bilirubin Total 0.3 mg/dL (0.2-1.0); Glucose Level 86 mg/dL (74-106); Lipase 116 U/L (73-393); Magnesium 2.7 mg/dL (1.8-2.4); Potassium 5.2 mmol/L (3.5-5.1); Protein, Total 6.1 g/dL (6.4-8.2); Sodium Level 144 mmol/L (136-145)
[2020-02-20 18:25] LABS: Absolute Lymphocytes (CBC) 1.1 K/uL (0.7-4.9); Basophils % 0.3 % (0-1.3); Lymphocytes % 24.5 % (15.3-44.8); MPV 9.2 fL (7.6-11.3); RBC Red Blood Cell Count 3.08 M/uL (3.86-4.86)
--- NOTE | 2020-02-20 18:38 | RAD REPORT ---
EXAM DESCRIPTION: Zack Single View02/20/2020 5:54 pm CLINICAL HISTORY: COPD and tremors COMPARISON: October 2019 FINDINGS: The lungs appear clear of acute infiltrate. The heart is normal size IMPRESSION: No acute abnormalities displayed
--- NOTE | 2020-02-20 18:39 | EDPHYS ---
Physician Documentation [facility] Name: Macrina Mason Age: 74 yrs Sex: Female : 1945 Arrival Date: 02/20/2020 Time: 16:42 Bed 4 Private MD: ED Physician Ta Stevens HPI: 02/19 18:30 This 74 yrs old Female presents to ER via EMS with complaints of AMS, rn tremors, weakness. 18:30 The patient presents with decreased mental status, decreased responsiveness. Onset: The rn symptoms/episode began/occurred at an unknown time. Possible causes: unknown. Current symptoms: In the emergency department the patient's symptoms are unchanged from the initial presentation. The patient has experienced similar episodes in the past. Reports generalized weakness, feels like has UTI, + new tremors for 2 days, can't stop shaking, no fever, having "trouble thinking". No fall or head injury. No focal neuro complaint. . Historical: - Allergies: 16:50 PENICILLINS; bp - Home Meds: 16:50 Metoprolol Tartrate Oral [Active]; levothyroxine 25 mcg tab 1 tab once daily [Active]; bp gabapentin 800 mg Oral tab 1 tab 3 times per day [Active]; hydrocodone-acetaminophen 5-325 mg Oral tab 1 tab every 6 hours [Active]; olanzapine 2.5 mg Oral tab 1 tabs twice a day [Active]; aspirin 325 mg Oral tab 1 tab once daily [Active]; propranolol 20 mg Oral tab 1 tab 2 times per day [Active]; furosemide 40 mg Oral tab 1 tab once daily [Active]; - PMHx: 16:50 allergies; Back pain; Bipolar disorder; COPD; DVT; Schizophrenia; UTI; bp - Immunization history:: Adult Immunizations up to date. - Social history:: Smoking status: Patient denies any tobacco usage or history of. - Family history:: not pertinent. - Hospitalizations: : No recent hospitalization is reported. ROS: 18:30 Constitutional: Negative for fever, + chills and tremors Eyes: Negative for injury, rn pain, redness, and discharge, Cardiovascular: Negative for chest pain, palpitations, and edema, Respiratory: Negative for shortness of breath, cough, wheezing, and pleuritic chest pain, Abdomen/GI: Negative for vomiting, diarrhea, and constipation, : + dysuria and frequency MS/Extremity: Negative for injury and deformity, Neuro: Negative for headache, numbness, tingling, and seizure. Exam: 18:30 Constitutional: This is a well developed, well nourished patient who is awake, rn somnolent, forgets what she is talking about mid-sentence Head/Face: Normocephalic, atraumatic. Cardiovascular: Regular rate and rhythm. No pulse deficits. Respiratory: No increased work of breathing, no retractions or nasal flaring. Abdomen/GI: soft, mild suprapubic tendernes,s no rebound Skin: Warm, dry MS/ Extremity: Pulses equal, dusky bilateral hands but equal and strong radial pulses with good cap refill Neuro: Awake, somnolent, moves all 4 extremities with 4/5 strength, + upper ext tremors and jerking movements, no seizure like activity. Vital Signs: 16:46 BP 126 / 65; Pulse 66; Resp 17; Temp 97.1; Pulse Ox 96% ; bp 17:32 BP 119 / 76; Pulse 66; Resp 17; Pulse Ox 99% ; bp 19:26 BP 133 / 60; Pulse 58; Resp 17; Temp 97.6; Pulse Ox 99% ; rr5 MDM: 16:52 Patient medically screened. rn 18:30 Differential Diagnosis: CVA, electrolyte abnormality, hypoglycemia, intracranial bleed, rn seizure, UTI, volume depletion. Data reviewed: vital signs, nurses notes, lab test result(s), radiologic studies, CT scan, plain films, and as a result, I will admit patient. Counseling: I had a detailed discussion with the patient and/or guardian regarding: the historical points, exam findings, and any diagnostic results supporting the discharge/admit diagnosis, lab results, radiology results, the need for further work-up and treatment in the hospital. Response to treatment: the patient's symptoms have mildly improved after treatment, and as a result, I will admit patient. Admission orders: after a detailed discussion of the patient's condition and case, the admit orders are written by me. ED course: Pt admitted to Dr. Gutierres for UTI and AMS, weakness, and new onset tremors. . 02/19 17:00 Order name: CBC with Diff rn 02/19 17:00 Order name: Basic Metabolic Panel; Complete Time: 18:26 rn 02/19 17:00 Order name: Urine Culture rn 02/19 17:00 Order name: Urine Microscopic Only; Complete Time: 18:00 rn 02/19 17:00 Order name: Blood Culture Adult (2) rn 02/19 17:00 Order name: Procalcitonin rn 02/19 17:00 Order name: CT Head Brain wo Cont; Complete Time: 18:00 rn 02/19 17:00 Order name: EKG; Complete Time: 17:01 rn 02/19 17:00 Order name: Hepatic Function; Complete Time: 18:26 rn 02/19 17:00 Order name: Lipase; Complete Time: 18:26 rn 02/19 17:01 Order name: XRAY Chest (1 view); Complete Time: 18:48 rn 02/19 17:01 Order name: Magnesium; Complete Time: 18:26 rn 02/19 17:17 Order name: Urine Dipstick--Ancillary (enter results); Complete Time: 18:00 bd 02/19 17:00 Order name: IV Start; Complete Time: 17:49 rn 02/19 17:00 Order name: Urine Dipstick-Ancillary (obtain specimen); Complete Time: 17:32 rn 02/19 17:00 Order name: EKG - Nurse/Tech; Complete Time: 17:32 rn 02/19 17:00 Order name: Labs collected and sent; Complete Time: 17:49 rn Administered Medications: 18:50 Drug: Rocephin 1 grams Route: IV; Rate: calculated rate; Site: right antecubital; bp 19:03 Follow up: IV Status: Completed infusion bp Disposition: 02/20/20 18:38 Hospitalization ordered by Holland Gutierres for Inpatient Admission. Preliminary diagnosis are Urinary tract infection, site not specified, Altered mental status, unspecified, Weakness. - Bed requested for Telemetry/MedSurg (Inpatient). - Status is Inpatient Admission. ar5 - Condition is Stable. - Problem is new. - Symptoms have improved. Signatures: Dispatcher [employer] Magui Villalpando RN Ta Chapa MD MD rn Peltier, Brian, RN RN bp Robles, Autumn ar5 Corrections: (The following items were deleted from the chart) 19:12 18:38 Hospitalization Ordered by Holland Gutierres DO for Inpatient Admission. Preliminary dw diagnosis is Urinary tract infection, site not specified; Altered mental status, unspecified; Weakness. Bed requested for Telemetry/MedSurg (Inpatient). Status is Inpatient Admission. Condition is Stable. Problem is new. Symptoms have improved. rn 20:05 19:12 02/20/2020 18:38 Hospitalization Ordered by Holland Gutierres DO for Inpatient ar5 Admission. Preliminary diagnosis is Urinary tract infection, site not specified; Altered mental status, unspecified; Weakness. Bed requested for Telemetry/MedSurg (Inpatient). Status is Inpatient Admission. Condition is Stable. Problem is new. Symptoms have improved. dw
--- NOTE | 2020-02-20 18:39 | ER ---
Nurse's Notes [facility] Name: Macrina Mason Age: 74 yrs Sex: Female : 1945 Arrival Date: 02/20/2020 Time: 16:42 Bed 4 Private MD: Diagnosis: Urinary tract infection, site not specified;Altered mental status, unspecified;Weakness Presentation: 02/19 16:46 Chief complaint: EMS states: EXTREMITY TREMORS OFF AND ON FOR 2 DAYS. Coronavirus bp screen: At this time, the client does not indicate any symptoms associated with coronavirus-19. Ebola Screen: No symptoms or risks identified at this time. Initial Sepsis Screen: Does the patient meet any 2 criteria? No. Patient's initial sepsis screen is negative. Does the patient have a suspected source of infection? No. Patient's initial sepsis screen is negative. Risk Assessment: Do you want to hurt yourself or someone else? Patient reports no desire to harm self or others. Onset of symptoms is unknown. Care prior to arrival: Glucose check: 98. 16:46 Method Of Arrival: EMS: [facility] bp 16:46 Acuity: [place] 3 bp Triage Assessment: 16:50 General: Appears in no apparent distress. comfortable, obese, Behavior is listless. bp Pain: Denies pain. EENT: No deficits noted. Neuro: Level of Consciousness is listless, Oriented to person, place, time, situation, Appropriate for age. Cardiovascular: Rhythm is sinus rhythm. Respiratory: No deficits noted. GI: No signs and/or symptoms were reported involving the gastrointestinal system. : No signs and/or symptoms were reported regarding the genitourinary system. Derm: No deficits noted. Musculoskeletal: No deficits noted. Historical: - Allergies: 16:50 PENICILLINS; bp - Home Meds: 16:50 Metoprolol Tartrate Oral [Active]; levothyroxine 25 mcg tab 1 tab once daily [Active]; bp gabapentin 800 mg Oral tab 1 tab 3 times per day [Active]; hydrocodone-acetaminophen 5-325 mg Oral tab 1 tab every 6 hours [Active]; olanzapine 2.5 mg Oral tab 1 tabs twice a day [Active]; aspirin 325 mg Oral tab 1 tab once daily [Active]; propranolol 20 mg Oral tab 1 tab 2 times per day [Active]; furosemide 40 mg Oral tab 1 tab once daily [Active]; - PMHx: 16:50 allergies; Back pain; Bipolar disorder; COPD; DVT; Schizophrenia; UTI; bp - Immunization history:: Adult Immunizations up to date. - Social history:: Smoking status: Patient denies any tobacco usage or history of. - Family history:: not pertinent. - Hospitalizations: : No recent hospitalization is reported. Screenin:53 Abuse screen: Denies threats or abuse. Denies injuries from another. Nutritional bp screening: No deficits noted. Tuberculosis screening: No symptoms or risk factors identified. Fall Risk None identified. Assessment: 16:53 General: SEE TRIAGE NOTE. bp 17:33 Reassessment: PT TO CT WITH PR[employer]. bp 19:20 General: Appears in no apparent distress. comfortable, awaiting for room assignment. rr5 Pain: Denies pain. Neuro: Level of Consciousness is awake, alert, obeys commands, Reports weakness. Cardiovascular: Capillary refill < 3 seconds Patient's skin is warm and dry. Respiratory: Airway is patent Respiratory effort is even, unlabored, Respiratory pattern is regular, symmetrical. : Reports incontinence. 19:20 GI: Abdomen is round non-distended. EENT: No signs and/or symptoms were reported rr5 regarding the EENT system. Derm: Skin is intact, is healthy with good turgor, Skin temperature is warm. Musculoskeletal: Circulation, motion, and sensation intact. Capillary refill < 3 seconds. Vital Signs: 16:46 BP 126 / 65; Pulse 66; Resp 17; Temp 97.1; Pulse Ox 96% ; bp 17:32 BP 119 / 76; Pulse 66; Resp 17; Pulse Ox 99% ; bp 19:26 BP 133 / 60; Pulse 58; Resp 17; Temp 97.6; Pulse Ox 99% ; rr5 ED Course: 16:42 Patient arrived in ED. iw 16:45 Henrique Angel, [place] is Primary Nurse. bp 16:47 Triage completed. bp 16:52 Ta Stevens MD is Attending Physician. rn 16:53 Arm band placed on. bp 16:55 Patient has correct armband on for positive identification. Bed in low position. Call bp light in reach. Side rails up X2. 17:34 CT Head Brain wo Cont In Process Unspecified. EDMS 17:45 Inserted saline lock: 20 gauge in right antecubital area, using aseptic technique. bp Blood collected. 17:54 XRAY Chest (1 view) In Process Unspecified. EDMS 18:37 Mainor Turcios FNP-C is Hospitalizing Provider. rn 18:38 Holland Gutierres DO is Hospitalizing Provider. rn 19:37 No provider procedures requiring assistance completed. Patient admitted, IV remains in rr5 place. intact, No redness/swelling at site. Administered Medications: 18:50 Drug: Rocephin 1 grams Route: IV; Rate: calculated rate; Site: right antecubital; bp 19:03 Follow up: IV Status: Completed infusion bp Outcome: 18:38 Decision to Hospitalize by Provider. rn 19:37 Admitted to Med/surg accompanied by tech, via stretcher, room 212, with chart, Report rr5 called to iman 19:37 Condition: stable 19:37 Instructed on the need for admit. 20:05 Patient left the ED. ar5 Signatures: Dispatcher [employer] EDTerrie Martinez RN RN iw Nieto, Roman, MD MD rn Peltier, Brian, RN RN bp Roque, Raymond, RN RN rr5 Mai Amin ar5
[2020-02-20] MEDS ORDERED: CEFTRIAXONE/SWI 1gm 1 GM/10 ML SYR ONE (19:02)
[2020-02-20] MEDS ORDERED: NA CHLORIDE 0.9% 100 ML IV ONE (19:02)
--- NOTE | 2020-02-20 19:03 | P.HP ---
Certification for Inpatient Patient admitted to: Observation With expected LOS: <2 Midnights Patient will require the following post-hospital care: None Practitioner: I am a practitioner with admitting privileges, knowledge of patient current condition, hospital course, and medical plan of care. Services: Services provided to patient in accordance with Admission requirements found in Title 42 Section 412.3 of the Code of Federal Regulations Patient History Date of Service: 02/20/20 Primary Care Provider: Dr. Alegre Reason for admission: UTI/AMS History of Present Illness: 74-year-old female presents emergency department for reported altered mental status. Patient with history of urinary tract infection and altered mental status similar to this. Patient is alert but lethargic, Patient does doze off while speaking. Patient does report that she has had some burning with urination for approximately 1 week. Patient does have a history of chronic kidney disease stage 3. ED provider wishes to admit patient for further evaluation and management. When I saw the patient in the emergency department she was awake but lethargic. Vital signs within normal limits. Patient is afebrile, blood pressure within normal limits. Patient does not appear septic at this time. Urine culture obtained in the emergency department. Allergies No Known Allergies Allergy (Unverified 10/22/19 09:42) Home Medications: Aspirin 1 tab PO DAILY 10/18/19 Divalproex ER [Depakote *ER] 3 tab PO BID 10/18/19 Donepezil HCl 10 mg PO BID 10/18/19 Duloxetine HCl 60 mg PO DAILY 10/18/19 Flaxseed Oil 1 cap PO DAILY 10/18/19 Fluticasone/Vilanterol [Breo Ellipta 200-25 Mcg INH] 1 puff IN DAILY 10/18/19 Folic Acid 1 tab PO DAILY 10/18/19 Gabapentin 800 mg PO TID 10/18/19 Hydrocodone 5/APAP 325 [[place] 5/325*] 1 tab PO Q6H PRN 10/18/19 Levothyroxine Sodium 25 mcg PO 0630 10/18/19 Loratadine [Claritin*] 1 tab PO DAILY PRN 10/18/19 Memantine HCl 10 mg PO BID 10/18/19 Metoprolol Succinate 25 mg PO BID 10/18/19 OLANZapine [Zyprexa*] 2.5 mg PO BID 10/18/19 Ondansetron [Ondansetron Odt] 4 mg PO Q12H PRN 10/18/19 Topiramate 100 mg PO BID 10/18/19 Vit A,C & E/Lutein/Minerals [Healthy Eyes Tablet] 1 tab PO DAILY 10/18/19 Amox/Clavulanate [Augmentin 875-125 Tab*] 875 mg PO BID #20 tab 10/24/19 - Past Medical/Surgical History Diabetic: No -: Bipolar disorder -: Schizoaffective disorder -: COPD -: History of DVT-cannot describe further/in neck -: Hypertension -: Hypothyroidism -: Hyperlipidemia -: Dementia -: Chronic pain with neuropathy -: Chronic renal disease -: Complete hysterectomy -: sb knee replacement Psychosocial/ Personal History: Patient currently lives at home with her , son this. Reports that she does have a nurse that comes to visit her but reports that she does not have home health. - Family History Mother -: Heart disease, Lung disease Notes: COPD Father -: Heart disease, Diabetes Notes: quadruple bypass - Social History Smoking Status: Never smoker Alcohol use: No CD- Drugs: No Caffeine use: No Place of Residence: Home Review of Systems 10-point ROS is otherwise unremarkable General: Chills, Weakness, Malaise Genitourinary: Dysuria, Frequency Physical Examination - Physical Exam General: Alert, In no apparent distress, Confused, Other (Lethargic) HEENT: Atraumatic, Normocephalic, PERRLA, Other (Mucous membranes dry) Neck: Supple Respiratory: Clear to auscultation bilaterally, Normal air movement Cardiovascular: Regular rate/rhythm, Normal S1 S2 Capillary refill: <2 Seconds Gastrointestinal: Normal bowel sounds, Soft and benign, No tenderness, No rebound, No guarding Musculoskeletal: No contractures, No erythema, No tenderness Integumentary: No tenderness/swelling, No erythema, No warmth Neurological: Normal strength at 5/5 x4 extr, Normal tone, Abnormal affect - Studies Laboratory Data (last 24 hrs) 02/20/20 17:45: Sodium 144, Potassium 5.2 H, BUN 55 H, Creatinine 2.00 H, Glucose 86, Magnesium 2.7 H D, Total Bilirubin 0.3, AST 9 L, ALT 10 L, Alkaline Phosphatase 99, Lipase 116 02/20/20 17:45: WBC 4.7, Hgb 9.7 L, Hct 29.0 L, Plt Count 129 L Assessment and Plan - Plan Assessment Toxic metabolic encephalopathy likely secondary to urinary tract infection Acute kidney injury underlying CKD stage 3 Bipolar and schizoaffective disorder COPD Hypertension Hypothyroidism Hyperlipidemia Chronic back pain with neuropathy Plan Toxic metabolic encephalopathy likely secondary to urinary tract infection: Urine culture obtained in the emergency department, patient was started on Rocephin at this time. Previous urine culture sensitive to Rocephin. Will followup on urine culture. Will also provide gentle hydration. DVT prophylaxis with heparin 5000 units subcutaneous twice daily. Anticipate clinical improvement in the next 24-48 hr. Acute kidney injury underlying CKD stage 3: Nephrology has been consulted on this case. Continue gentle hydration at this time. Appreciate further input from nephrology. Bipolar and schizoaffective disorder: Obtain and continue patient's home medications. COPD: Albuterol inhaler in place as needed, continue patient's home medications as appropriate. Hypertension: Obtain and continue patient's home medications. Hypothyroidism: Obtain and continue patient's home medications. Hyperlipidemia: Obtain and continue patient's home medications. Chronic back pain with neuropathy: [place] as needed. Discharge Plan: Home Plan to discharge in: 24 Hours - Advance Directives Does patient have a Living Will: No Does patient have a Durable POA for Healthcare: No - Code Status/Comfort Care Code Status Assessed: Yes (Patient is full code) Critical Care: No Time Spent Managing Pts Care (In Minutes): 55
[2020-02-20] MEDS ORDERED: ONDANSETRON 4 MG/2 ML VIAL IV PRN (21:22)
[2020-02-20] MEDS ORDERED: ACETAMINOPHEN 500 MG TAB PO PRN (21:22)
[2020-02-20] MEDS ORDERED: ALBUTEROL INHALER 60 PUFF/8 GM IH PRN (21:22)
[2020-02-20] MEDS ORDERED: NA CHLORIDE 0.9% 1,000 ML IV SCH (21:22)
[2020-02-20] MEDS: NACHLORIDE 0.45% 1,000 ML IV SCH (22:55)
[2020-02-20] MEDS: HEPARIN 5000 UNIT/ML 1 ML VIAL SQ SCH (22:56)
[2020-02-20 22:59] VITALS: BMI 31.6
[2020-02-21 06:26] LABS: Magnesium 2.8 mg/dL (1.8-2.4); Potassium 4.5 mmol/L (3.5-5.1); Thyroid Stimulating Hormone 1.43 uIU/mL (0.360-3.740)
[2020-02-21 06:32] LABS: Absolute Lymphocytes (CBC) 1.4 K/uL (0.7-4.9); Basophils % 0.6 % (0-1.3); Hematocrit 29.5 % (36.0-45.0); Lymphocytes % 36.4 % (15.3-44.8); MPV 9.8 fL (7.6-11.3); RBC Red Blood Cell Count 3.16 M/uL (3.86-4.86)
[2020-02-21 08:10] LABS: Blood Morphology Comment NOT SEEN (NOT SEEN); Platelet Estimate DECR; Urine White Blood Cell Casts OK
[2020-02-21] MEDS: HEPARIN 5000 UNIT/ML 1 ML VIAL SQ SCH (08:40)
[2020-02-21] MEDS: HYDROCODONE/APAP 5/325 MG TAB PO PRN ×3 (10:24→23:05)
[2020-02-21] MEDS: NACHLORIDE 0.45% 1,000 ML IV SCH (12:40)
--- NOTE | 2020-02-21 13:08 | P.PN ---
Subjective Date of Service: 02/21/20 Primary Care Provider: Dr. Alegre Chief Complaint: UTI/AMS Altered mental status resolved. No new complaint except generalized weakness. Urine culture is pending. Physical Examination - Vital Signs Temperature: 97.4 F Blood Pressure: 136/63 Pulse: 52 Respirations: 15 Pulse Ox (%): 98 - Physical Exam General: In no apparent distress, Oriented x3 HEENT: Mucous membr. moist/pink Neck: JVD not distended Respiratory: Clear to auscultation bilaterally, Normal air movement Cardiovascular: No edema, Regular rate/rhythm, Normal S1 S2 Gastrointestinal: Normal bowel sounds, Soft and benign, Non-distended, No tenderness Musculoskeletal: No swelling, No erythema Integumentary: No rashes Neurological: Normal strength at 5/5 x4 extr, Cranial nerves 3-12 intact - Studies Laboratory Data (last 24 hrs) 02/21/20 05:23: Sodium 143, Potassium 4.5, BUN 53 H, Creatinine 1.85 H, Glucose 76, Magnesium 2.8 H 02/21/20 05:23: WBC 3.7 L D, Hgb 9.9 L, Hct 29.5 L, Plt Count 97 L D 02/20/20 17:45: Sodium 144, Potassium 5.2 H, BUN 55 H, Creatinine 2.00 H, Glucose 86, Magnesium 2.7 H D, Total Bilirubin 0.3, AST 9 L, ALT 10 L, Alkaline Phosphatase 99, Lipase 116 02/20/20 17:45: WBC 4.7, Hgb 9.7 L, Hct 29.0 L, Plt Count 129 L Microbiology Data (last 24 hrs): 02/20/20 23:18 Nasopharnyx Coronavirus COVID-19 PCR - Final Assessment And Plan - Current Problems (Diagnosis) (1) Acute encephalopathy Current Visit: No Status: Acute (2) UTI (urinary tract infection) Onset Date: 03/16/18 Current Visit: No Status: Acute Qualifiers: Urinary tract infection type: acute cystitis Hematuria presence: without hematuria Qualified Code(s): N30.00 - Acute cystitis without hematuria (3) AMBAR (acute kidney injury) Current Visit: No Status: Acute (4) COPD (chronic obstructive pulmonary disease) Current Visit: No Status: Chronic Qualifiers: COPD type: chronic bronchitis Chronic bronchitis type: simple Qualified Code(s): J41.0 - Simple chronic bronchitis (5) Dementia Onset Date: 10/22/14 Current Visit: No Status: Chronic Qualifiers: Dementia type: Alzheimer's disease Alzheimer's disease onset: unspecified onset Dementia behavioral disturbance: without behavioral disturbance Qualified Code(s): G30.9 - Alzheimer's disease, unspecified; F02.80 - Dementia in other diseases classified elsewhere without behavioral disturbance (6) Hypothyroidism Onset Date: 10/22/14 Current Visit: No Status: Chronic Qualifiers: 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 coli. Continue current antibiotics. Follow urine culture and adjust antibiotics as appropriate. Altered mental status resolved. PT evaluation. Acute renal failure Likely prerenal secondary to dehydration. Serum creatinine is trending down. Continue IV hydration and monitor renal function. Nephrology consult. COPD: Stable. Hypothyroidism Tsh within normal limit. Stable. Validate home medications for med reconciliation. Continue home dose Synthroid.
[2020-02-21] MEDS ORDERED: CEFTRIAXONE 1 GM/NS 50 ML 1 GM/50 ML BAG IV SCH (18:00)
[2020-02-21] MEDS ORDERED: CEFTRIAXONE/SWI 1gm 1 GM/10 ML SYR IV SCH (18:00)
--- NOTE | 2020-02-21 22:18 | P.CNS ---
Date of Consult: 02/21/20 Reason for Consult: AMBAR Requesting Physician: phoenix benito Primary Care Provider: Dr. Alegre Chief Complaint: UTI/AMS History of Present Illness: 74-year-old female presents emergency department for reported altered mental status. Patient with history of urinary tract infection and altered mental status similar to this. Patient is alert but lethargic, Patient does doze off while speaking. Patient does report that she has had some burning with urination for approximately 1 week. Patient does have a history of chronic kidney disease stage 3. ED provider wishes to admit patient for further e valuation and management. 18:30 This 74 yrs old Female presents to ER via EMS with complaints of AMS, rn tremors, weakness. 18:30 The patient presents with decreased mental status, decreased responsiveness. Onset: The rn symptoms/episode began/occurred at an unknown time. Possible causes: unknown. Current symptoms: In the emergency department the patient's symptoms are unchanged from the initial presentation. The patient has experienced similar episodes in the past. Reports generalized weakness, feels like has UTI, + new tremors for 2 days, can't stop shaking, no fever, having "trouble thinking". No fall or head injury. No focal neuro complaint. Allergies No Known Allergies Allergy (Unverified 10/22/19 09:42) Home medications list reviewed: Yes Home Medications: Aspirin 1 tab PO DAILY 10/18/19 Divalproex ER [Depakote *ER] 3 tab PO BID 10/18/19 Donepezil HCl 10 mg PO BID 10/18/19 Duloxetine HCl 60 mg PO DAILY 10/18/19 Flaxseed Oil 1 cap PO DAILY 10/18/19 Fluticasone/Vilanterol [Breo Ellipta 200-25 Mcg INH] 1 puff IN DAILY 10/18/19 Folic Acid 1 tab PO DAILY 10/18/19 Gabapentin 800 mg PO TID 10/18/19 Hydrocodone 5/APAP 325 [[place] 5/325*] 1 tab PO Q6H PRN 10/18/19 Levothyroxine Sodium 25 mcg PO 0630 10/18/19 Loratadine [Claritin*] 1 tab PO DAILY PRN 10/18/19 Memantine HCl 10 mg PO BID 10/18/19 Metoprolol Succinate 25 mg PO BID 10/18/19 OLANZapine [Zyprexa*] 2.5 mg PO BID 10/18/19 Ondansetron [Ondansetron Odt] 4 mg PO Q12H PRN 10/18/19 Topiramate 100 mg PO BID 10/18/19 Vit A,C & E/Lutein/Minerals [Healthy Eyes Tablet] 1 tab PO DAILY 10/18/19 Amox/Clavulanate [Augmentin 875-125 Tab*] 875 mg PO BID #20 tab 10/24/19 - Past Medical/Surgical History Diabetic: No -: Bipolar disorder -: Schizoaffective disorder -: COPD -: History of DVT-cannot describe further/in neck -: Hypertension -: Hypothyroidism -: Hyperlipidemia -: Dementia -: Chronic pain with neuropathy -: Chronic renal disease -: Complete hysterectomy -: sb knee replacement Psychosocial/ Personal History: Patient currently lives at home with her , son this. Reports that she does have a nurse that comes to visit her but reports that she does not have home health. - Family History Mother Medical History: Heart disease, Lung disease Notes: COPD Father Medical History: Heart disease, Diabetes Notes: quadruple bypass - Social History Smoking Status: Unknown if ever smoked Alcohol use: No CD- Drugs: No Caffeine use: Yes Place of Residence: Home Review of Systems 10-point ROS is otherwise unremarkable General: Weakness, Malaise Respiratory: SOB with Excertion Gastrointestinal: Nausea Neurological: Weakness Physical Examination Temp Pulse Resp BP Pulse Ox 97.6 F 56 18 125/60 98 02/21/20 16:00 02/21/20 16:00 02/21/20 17:53 02/21/20 16:00 02/21/20 16:00 General: Cooperative, Obese HEENT: Atraumatic, Normocephalic Neck: Supple Respiratory: Clear to auscultation bilaterally, Diminished Cardiovascular: No edema, Regular rate/rhythm Gastrointestinal: Soft and benign, Non-distended Musculoskeletal: No clubbing, No contractures Integumentary: No rashes, No cyanosis Neurological: Normal speech Laboratory Data (last 24 hrs) 02/21/20 05:23: Sodium 143, Potassium 4.5, BUN 53 H, Creatinine 1.85 H, Glucose 76, Magnesium 2.8 H 02/21/20 05:23: WBC 3.7 L D, Hgb 9.9 L, Hct 29.5 L, Plt Count 97 L D Imagings Data: EXAM DESCRIPTION: Zack Single View02/20/2020 5:54 pm CLINICAL HISTORY: COPD and tremors COMPARISON: October 2019 FINDINGS: The lungs appear clear of acute infiltrate. The heart is normal size IMPRESSION: No acute abnormalities displayed Conclusions/Impression: A/ AMBAR improving with IVF Hyperkalemia Hypocalcemia Moderate malnutrition Pancytopenia Acute cystitis P/ Continue current POC and Medications. Continue IVF 1/2NS. Continue Abx. Follow up culture. Start Vitamin D & C. Encourage nutrition. No NSAIDs. AM labs. Daily weight. Thank you kindly for the consultation.
[2020-02-21] MEDS: ASCORBIC ACID 500 MG TABLET PO SCH (23:05)
[2020-02-22] MEDS: NACHLORIDE 0.45% 1,000 ML IV SCH (01:30)
[2020-02-22 04:26] LABS: Absolute Lymphocytes (CBC) 1.3 K/uL (0.7-4.9); Basophils % 0.4 % (0-1.3); Hematocrit 25.1 % (36.0-45.0); Lymphocytes % 36.3 % (15.3-44.8); RBC Red Blood Cell Count 2.68 M/uL (3.86-4.86)
[2020-02-22] MEDS: HYDROCODONE/APAP 5/325 MG TAB PO PRN ×2 (04:37→10:42)
[2020-02-22 04:41] LABS: Magnesium 2.4 mg/dL (1.8-2.4); Potassium 5.2 mmol/L (3.5-5.1)
--- NOTE | 2020-02-22 08:44 | EKG ---
Test Date: 2020-02-20 Test Time: 17:25:41 Supervisor Spring Up: LAMBERT MEASUREMENT RESULTS: Intervals: Rate: 57 CT: 198 QRSD: 112 QT: 448 QTc: 436 [place]: P: 61 CT: 198 QRS: -32 T: 96 INTERPRETIVE STATEMENTS: Sinus bradycardia Left axis deviation Cannot rule out Anterior infarct, age undetermined Abnormal ECG Compared to ECG 10/18/2019 16:41:15 Left-axis deviation now present Accelerated junctional rhythm no longer present Myocardial infarct finding still present Electronically Signed On 02-22-20 08:38:49 CDT by Cuba Sotelo
[2020-02-22] MEDS ORDERED: CALCITROL 0.25 MCG CAP PO SCH (09:00)
[2020-02-22] MEDS ORDERED: VITAMIN D 5,000 UNIT CAP PO SCH (09:00)
[2020-02-22] MEDS: ASCORBIC ACID 500 MG TABLET PO SCH (10:42)
[2020-02-22 11:05] VITALS: O2SAT 94
--- NOTE | 2020-02-22 12:05 | P.DS ---
Admission Date: 02/21/20 Discharge Date: 02/22/20 Primary Care Provider: Dr. Alegre Disposition: DC HOME/HOME HEALTH CARE Discharge Condition: FAIR Reason for Admission: UTI/AMS - Problems (1) Acute encephalopathy Status: Acute (2) UTI (urinary tract infection) Onset Date: 03/16/18 Status: Acute Qualifiers: Urinary tract infection type: acute cystitis Hematuria presence: without hematuria Qualified Code(s): N30.00 - Acute cystitis without hematuria (3) AMBAR (acute kidney injury) Status: Acute (4) COPD (chronic obstructive pulmonary disease) Status: Chronic Qualifiers: COPD type: chronic bronchitis Chronic bronchitis type: simple Qualified Code(s): J41.0 - Simple chronic bronchitis (5) Dementia Onset Date: 10/22/14 Status: Chronic Qualifiers: Dementia type: Alzheimer's disease Alzheimer's disease onset: unspecified onset Dementia behavioral disturbance: without behavioral disturbance Qualified Code(s): G30.9 - Alzheimer's disease, unspecified; F02.80 - Dementia in other diseases classified elsewhere without behavioral disturbance (6) Hypothyroidism Onset Date: 10/22/14 Status: Chronic Qualifiers: 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 She has a history of recurrent UTI. UA in the emergency department suggest the presence of UTI. She has a history of chronic kidney disease. Her creatinine was increased above baseline. The patient was admitted for further management. Hospital Course: Patient admitted to the medical floor and treated for UTI with IV antibiotics. He is also hydrated with IV fluid. Her renal function responded to the IV flow with decrease in serum creatinine. Her urine culture yielded polymicrobial growth. Her mental status improved with treatment. Patient was back to baseline. She was seen and evaluated by physical therapy. She ambulated in the hallway with a walker. Patient was seen in consultation by nephrology-Dr. Fernando who assisted with treatment of the acute renal failure. Patient clinical condition has improved. She is discharged with Omnicef to continue treatment for the UTI. Recommend home health to be resumed on discharge. Vital Signs/Physical Exam: Temp Pulse Resp BP Pulse Ox 97.0 F 62 19 128/55 L 97 02/22/20 08:00 02/22/20 08:00 02/22/20 10:42 02/22/20 08:00 02/22/20 08:00 General: Alert, In no apparent distress HEENT: Mucous membr. moist/pink, Sclerae nonicteric Neck: Supple, JVD not distended Respiratory: Clear to auscultation bilaterally, Normal air movement Cardiovascular: No edema, Regular rate/rhythm, Normal S1 S2 Capillary refill: <2 Seconds Gastrointestinal: Normal bowel sounds, Soft and benign, Non-distended, No tenderness Musculoskeletal: No swelling, No erythema Integumentary: No rashes Neurological: Normal strength at 5/5 x4 extr, Cranial nerves 3-12 intact Laboratory Data at Discharge: WBC 3.6 K/uL (4.3-10.9) L 02/22/20 03:50 Hgb 8.6 g/dL (12.0-15.0) L 02/22/20 03:50 Hct 25.1 % (36.0-45.0) L 02/22/20 03:50 Plt Count 112 K/uL (152-406) L 02/22/20 03:50 Sodium 141 mmol/L (136-145) 02/22/20 03:50 Potassium 5.2 mmol/L (3.5-5.1) H 02/22/20 03:50 BUN 47 mg/dL (7-18) H 02/22/20 03:50 Creatinine 1.61 mg/dL (0.55-1.3) H 02/22/20 03:50 Glucose 98 mg/dL (74-106) 02/22/20 03:50 Magnesium 2.4 mg/dL (1.8-2.4) 02/22/20 03:50 Total Bilirubin 0.3 mg/dL (0.2-1.0) 02/20/20 17:45 AST 9 U/L (15-37) L 02/20/20 17:45 ALT 10 U/L (12-78) L 02/20/20 17:45 Alkaline Phosphatase 99 U/L (45-117) 02/20/20 17:45 Lipase 116 U/L (73-393) 02/20/20 17:45 Home Medications: Aspirin 1 tab PO DAILY 10/18/19 Divalproex ER [Depakote *ER] 3 tab PO BID 10/18/19 Donepezil HCl 10 mg PO BID 10/18/19 Duloxetine HCl 60 mg PO DAILY 10/18/19 Flaxseed Oil 1 cap PO DAILY 10/18/19 Fluticasone/Vilanterol [Breo Ellipta 200-25 Mcg INH] 1 puff IN DAILY 10/18/19 Folic Acid 1 tab PO DAILY 10/18/19 Gabapentin 800 mg PO TID 10/18/19 Hydrocodone 5/APAP 325 [[place] 5/325*] 1 tab PO Q6H PRN 10/18/19 Levothyroxine Sodium 25 mcg PO 0630 10/18/19 Loratadine [Claritin*] 1 tab PO DAILY PRN 10/18/19 Memantine HCl 10 mg PO BID 10/18/19 Metoprolol Succinate 25 mg PO BID 10/18/19 OLANZapine [Zyprexa*] 2.5 mg PO BID 10/18/19 Ondansetron [Ondansetron Odt] 4 mg PO Q12H PRN 10/18/19 Topiramate 100 mg PO BID 10/18/19 Vit A,C & E/Lutein/Minerals [Healthy Eyes Tablet] 1 tab PO DAILY 10/18/19 Ascorbic Acid [Vitamin C*] 500 mg PO Q12H #90 tablet 02/22/20 Calcitrol [Rocaltrol*] 0.5 mcg PO DAILY #30 cap 02/22/20 Cefdinir [Cefdinir*] 300 mg PO BID #14 cap 02/22/20 Cholecalciferol (Vitamin D3) [Vitamin D 5,000 IU Cap*] 5,000 unit PO DAILY #30 cap 02/22/20 New Medications: Cefdinir [Cefdinir*] 300 mg PO BID #14 cap Calcitrol [Rocaltrol*] 0.5 mcg PO DAILY #30 cap Ascorbic Acid [Vitamin C*] 500 mg PO Q12H #90 tablet Cholecalciferol (Vitamin D3) [Vitamin D 5,000 IU Cap*] 5,000 unit PO DAILY #30 cap Diet: AHA Activity: Fall precautions Followup: Leroy Fernando DO [ACTIVE - CAN ADMIT] - Time spent managing pt's care (in minutes): 35
[2020-02-22 13:01] VITALS: BP 122/58; TEMP 97.4
== END 2020-02-22 13:43 | disposition home health service (06) | DRG 682 ==
LOC: ER 16:36 → ERHOLD 18:52 → 2ND 19:38 → OBSVTOIN 02-21 10:50
PROVIDERS: ADMIT Family Medicine; ATTEND Internal Medicine
DX: N17.9 Acute kidney failure, unspecified (principal); G92 Toxic encephalopathy; N30.00 Acute cystitis without hematuria; E44.0 Moderate protein-calorie malnutrition; I12.9 Hypertensive chronic kidney disease with stage 1 through stage 4 chronic kidney disease, or unspecified chronic kidney disease; N18.3 Chronic kidney disease, stage 3 (moderate); F25.0 Schizoaffective disorder, bipolar type; E78.5 Hyperlipidemia, unspecified; M54.9 Dorsalgia, unspecified; G62.9 Polyneuropathy, unspecified; J41.0 Simple chronic bronchitis; E06.3 Autoimmune thyroiditis; G30.9 Alzheimer's disease, unspecified; F02.80 Dementia in other diseases classified elsewhere, unspecified severity, without behavioral disturbance, psychotic disturbance, mood disturbance, and anxiety; B96.1 Klebsiella pneumoniae [K. pneumoniae] as the cause of diseases classified elsewhere; E87.5 Hyperkalemia; E83.51 Hypocalcemia; Z68.31 Body mass index [BMI] 31.0-31.9, adult; Z11.59 Encounter for screening for other viral diseases
CPT/HCPCS: 36415; 70450; 71045; 80048; 80076; 81003; 81015; 83690; 83735; 84145; 84439; 84443; 85025; 87040; 87077; 87086; 87088; 87186; 93005; 96374; 97116; 97161; 97530; 99285; G0378; J0696; J1644; U0002

== ENCOUNTER 2020-05-16 07:16 | Emergency (ER) | payer OTHER, BC ==
--- OUTSIDE RECORDS SUMMARY | 2020-05-16 07:22 | XMS REPORT ---
:[address] [facility] Address [address] [place] [place] [address] Care Team Providers Name Role Phone Nian Alegre Unavailable [phone] PROBLEMS Type Condition ICD9-CM FTS06-KS Onset Condition SNOMED Code Notes Code Code Dates Status Problem Dementia without F03.90 Active 82306940 behavioral disturbance, unspecified dementia type Problem Unsteady gait R26.81 Active 243867764 Problem Primary M17.0 Active 323603666 osteoarthritis of both knees Problem Bipolar disorder F31.9 Active 54320665 Problem Acquired E03.9 Active 385426208 hypothyroidism Problem Hyperthyroidism E05.90 Active 78339482 Problem Degenerative disc M51.36 Active 08410226 disease, lumbar Problem CKD (chronic kidney N18.3 Active 668927813 disease), stage III Problem Overactive bladder N32.81 Active 296662889 Problem Allergic rhinitis J30.9 Active 40480594 Problem COPD (chronic J44.9 Active 39401924 obstructive pulmonary disease) Problem Migraines G43.909 Active 51113839 Problem Mixed hyperlipidemia E78.2 Active 290252179 Problem Pure E78.1 Active 182859102 hyperglyceridemia Problem Swelling R60.9 Active 577431268 Problem Other chronic pain G89.29 Active 34872494 Problem Lumbar disc M51.26 Active 502440635 herniation Problem Dry eye syndrome of H04.123 Active 22772685 both eyes Problem Cloudy urine R82.90 Active 9307676 Problem Jerking R25.3 Active 095225084 Problem Wheelchair dependent Z99.3 Active 048443880 Problem Depression F32.9 Active 90877330 Problem History of recurrent Z87.440 Active 715738122 UTI (urinary tract infection) Problem HTN (hypertension) I10 Active 55229067 Problem Anxiety F41.9 Active 05920423 Problem Bipolar disorder, F31.4 Active 43199265 current episode depressed, severe, without psychotic features Problem Decreased ROM of M25.612 Active 583253353 left shoulder Problem Acute pain of left M25.512 Active 38948368 shoulder Problem Abnormality of gait R26.9 Active 65152658 ALLERGIES No Known Allergies ENCOUNTERS from 1945 to 2020-05-10 Encounter Location Date Provider Diagnosis [facility] [address] [place], Nina Alegre History of recurrent Family Medicine [place], [place] UTI (uri nary tract [id number] infection) Z87. 440 IMMUNIZATIONS Vaccine Route Administration Date Status Phenergan (Promethazine) IM Intramuscular Mar 13, 2019 Admini stered SOCIAL HISTORY Tobacco Use: Social History Observation Description Date Details (start date - stop date) Never Smoker Sex Assigned At : Social History Observation Description Sex Assigned At Unknown PHQ9 Question Answer Notes Little interest or pleasure in doing things Not at all Feeling down, depressed, or hopeless Not at all Trouble falling or staying asleep or sleeping too much Nearl y every day Feeling tired or having little energy More than half the day s Poor appetite or overeating More than half the days Feeling bad about yourself, or that you are a failure, Not a t all or have let yourself or your family down Trouble concentrating on things, such as reading the Nearly every day newspaper or watching television Moving or speaking so slowly that other people could Not at all have noticed; or the opposite, being so fidgety or restless that you have been moving around a lot more than usual Total Score 10 Interpretation Moderate Depression Thoughts that you would be better off or of Not at all hurting yourself in some way Alcohol Screen Question Answer Notes Did you have a drink containing alcohol in the past year? No Points 0 Interpretation Negative Tobacco Use/Smoking Question Answer Notes Are you a never smoker Additional Findings: Tobacco Non-User Current non-smoker REASON FOR REFERRAL No Information VITAL SIGNS No information MEDICATIONS Medication SIG (Take, Route, Start Date End Date Status Frequency, Duration) Calcium 1 tab Oral for 14 days Activ e Ondansetron HCl 4 MG 1 tablet Orally every 6 Active hrs Furosemide 40 MG TAKE 1 TABLET BY MOUTH A ctive EVERY DAY for 60 BuPROPion HCl ER (XL) 300 1 tablet in the morning Active MG Orally Once a day for 30 day(s) Carbamazepine 200 MG 1 tablet Orally once a Active day Metoprolol Succinate ER 25 TAKE 1 TABLET BY MOUTH Active MG TWICE DAILY AT 6AM AND 6PM for 30 Folic Acid-Vit B6-Vit B12 1 tablet Orally Once a Active 0.8-10-0.115 MG day for 30 day(s) Donepezil HCl 10 MG 1 tablet at bedtime Oral Active twice a day Divalproex Sodium 250 MG 3 tablets Orally Twice a Active day for 30 day(s) Ipratropium-Albuterol 3 ml Inhalation every 6 Active 0.5-2.5 (3) MG/3ML hrs Oxybutynin Chloride ER 5 MG 1 tablet Oral twice a day Active Duloxetine HCl 60 MG 1 capsule Orally Once a Active day Memantine HCl 10 MG 1 tablet Orally Twice a Active day Topiramate 100 MG TAKE 1 TABLET BY MOUTH Active TWICE DAILY for 30 Vitamin D 1000 UNIT 1 tablet Orally Once a Active day for 30 day(s) Trazodone HCl 50 MG Oral for 30 Active Calcitriol 0.25 MCG TAKE 2 CAPSULES BY MOUTH Active EVERY DAY for 15 Gabapentin 800 MG 1 tablet Orally three A ctive times a day Protonix 40 MG 1 tablet Orally Once a Act luis miguel day for 30 day(s) Levothyroxine Sodium 200 1 tablet on an empty Active MCG stomach in the morning Orally Once a day Diclofenac Sodium 1 % 2 gram application to Active affected area Transdermal Three times a day for 30 day(s) Flonase 50 MCG/DOSE 1 spray in each nostril Dec, Not-Taking Nasally Twice a day for 30 day(s) Simethicone 80 MG 1 tablet after meals and Not-Taking at bedtime as needed Orally Four times a day Comp Air Compressor as directed every 6 hours Jun, Active Nebulizer - as needed for 90 days Benadryl Allergy 25 MG 1 tablet as needed Orally Active every 8 hrs Imodium A-D 2 MG 1 tablet as needed Orally Not-Taking Four times a day Zantac 150 MG 1 tablet at bedtime Not-Mann ing Orally Once a day for 30 day(s) Diclofenac Sodium 75 MG 1 tablet with food or Active milk Orally Twice a day for 30 day(s) Zofran 4 MG 1 tablet Orally every 12 Jun, Act luis miguel hrs prn nausea for 30 days Melatonin 3 MG 1 tablet at bedtime as Act luis miguel needed with food Orally Once a day for 30 day(s) Levothyroxine Sodium 25 MCG 1 tablet in the morning Apr, Active on an empty stomach Orally Once a day Carvedilol 6.25 MG 1 tablet Orally Twice a Active day Atorvastatin Calcium 20 MG 1 tablet Orally Once a Active day Imitrex 50 MG 1 tablet as needed Orally Mar, A ctive Once a day may repeat dose 1 dose in 2 hours ( max 2 doses in 24 hours) Lisinopril 2.5 MG 1 tablet Orally twice a Active day Claritin 10 MG 1 tablet Orally Once a Dec, Act luis miguel day for 30 day(s) PROCEDURES No Information RESULTS No Results REASON FOR VISIT cloudy urine MEDICAL (GENERAL) HISTORY Type Description Date Medical History htn Medical History Bipolar disorder Medical History Allergic rhinitis Medical History Depression Medical History HTN (hypertension) Medical History Swelling Medical History Anxiety Medical History Migraines Medical History COPD (chronic obstructive pulmonary dise ase) Medical History Hyperthyroidism Surgical History sb. TKA-metal 2015 Hospitalization History UTI_ [facility] 2020 Goals Section No Information Health Concerns No Information MEDICAL EQUIPMENT No Information MENTAL STATUS No Information FUNCTIONAL STATUS No Information ASSESSMENTS Encounter Date Diagnosis Notes May, History of recurrent UTI (urinary tract infection) (ICD-10 - Z87.440) PLAN OF TREATMENT Medication Medication Name Sig Start Date Stop Date Diclofenac Sodium 1 % 2 gram application to affected area Transdermal Three times a day for 30 day(s) Treatment Notes Test Name Order Date Urinalysis W/Microscopic 2020-05-10 Urine Culture Reflex Order 2020-05-10 Next Appt Details Provider Name:Nina Alegre, 2020-07-08 01:2 0:00 PM, [address], [address], [place], [address], Insurance Providers Payer Name Payer Address Payer Insured Patient Coverage Cover age Phone Name Relationship to Start Date End Date Insured [employer] [address] [phone] [place] [address] [facility] [id number] MEDICARE Attn Part B [id number] [place] self [employer] Claims [address] [facility] [place] [phone]
--- OUTSIDE RECORDS SUMMARY | 2020-05-16 07:22 | XMS REPORT ---
:1945 Author Organization [facility] Address [address] [place], [address] [place] [address] Care Team Providers Name Role Phone Nina Alegre Unavailable [phone] PROBLEMS Type Condition ICD9-CM MUU04-EL Onset Condition SNOMED Code Notes Code Code Dates Status Problem Dementia without F03.90 Active 57368831 behavioral disturbance, unspecified dementia type Problem Unsteady gait R26.81 Active 994335088 Problem Primary M17.0 Active 555037390 osteoarthritis of both knees Problem Bipolar disorder F31.9 Active 94007546 Problem Acquired E03.9 Active 256953537 hypothyroidism Problem Hyperthyroidism E05.90 Active 81437993 Problem Degenerative disc M51.36 Active 32449115 disease, lumbar Problem CKD (chronic kidney N18.3 Active 544765065 disease), stage III Problem Overactive bladder N32.81 Active 738771276 Problem Allergic rhinitis J30.9 Active 26853113 Problem COPD (chronic J44.9 Active 06410144 obstructive pulmonary disease) Problem Migraines G43.909 Active 48263215 Problem Mixed hyperlipidemia E78.2 Active 003949338 Problem Pure E78.1 Active 025990100 hyperglyceridemia Problem Swelling R60.9 Active 047867679 Problem Other chronic pain G89.29 Active 96993717 Problem Lumbar disc M51.26 Active 881806792 herniation Problem Dry eye syndrome of H04.123 Active 80587883 both eyes Problem Cloudy urine R82.90 Active 7247948 Problem Jerking R25.3 Active 297905855 Problem Wheelchair dependent 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 Active 753234713 Problem Depression F32.9 Active 45614099 Problem History of recurrent Z87.440 Active 499495992 UTI (urinary tract infection) Problem HTN (hypertension) I10 Active 41425276 Problem Anxiety F41.9 Active 68585386 Problem Bipolar disorder, F31.4 Active 91093070 current episode depressed, severe, without psychotic features Problem Decreased ROM of M25.612 Active 746493174 left shoulder Problem Acute pain of left M25.512 Active 69032668 shoulder Problem Abnormality of gait R26.9 Active 79348665 ALLERGIES No Known Allergies ENCOUNTERS from 1945 to 2020-05-12 Encounter Location Date Provider Diagnosis [facility] [employer] [address] [place], [facility] [address], follow- up Z09 ; [place] [address] pain of left s houlder M25.512 ; Decre ased ROM of left concha ulder M25.612 ; Hyp h rt & chr kdny dis w hrt fail and stg 1- 4/unsp chr kdny I13.0 ; Heart failure, unspec ified I50.9 ; Bipolar disorder, curre nt episode depress ed, severe, without psychotic featu res F31.4 ; Dementi a without behavio ral disturbance, unspecified dem entia type F03.90 ; Abnormality of gait R26.9 ; Wheelch air dependent Z99.3 and History of urin edinson tract infection Z87.440 IMMUNIZATIONS Vaccine Route Administration Date Status Phenergan [...] REASON FOR REFERRAL No Information VITAL SIGNS Height 69 in May, Weight 217 lbs May, Temperature 96.4 degrees Fahrenheit May, BMI 32.04 kg/m2 May, Oximetry 98 % May, Respiratory Rate 16 /min May, Blood pressure systolic 148 mm Hg May, Blood pressure diastolic 68 mm Hg May, MEDICATIONS Medication SIG (Take, Route, Start Date [...] Orally three A ctive times a day Cipro 500 MG 1 tablet Orally every 12 13 Sep, 2020 Act luis miguel hrs for 7 days Protonix 40 MG 1 tablet Orally Once [...] Information RESULTS No Results REASON FOR VISIT [facility]. In office. MEDICAL (GENERAL) HISTORY Type Description Date Medical History htn Medical History Bipolar disorder Medical History Allergic rhinitis Medical History Depression Medical History HTN (hypertension) Medical History Swelling Medical History Anxiety Medical History Migraines Medical History COPD (chronic obstructive pulmonary dise ase) Medical History Hyperthyroidism Surgical History sb. TKA-metal 2015 Hospitalization History UTI_ [facility] 2020 Goals Section No Information Health Concerns No Information MEDICAL EQUIPMENT No Information MENTAL STATUS No Information FUNCTIONAL STATUS No Information ASSESSMENTS Encounter Date Diagnosis Notes May, Dementia without behavioral disturbance, unspecified dementia type (ICD-10 - F03.90) May, Bipolar disorder, current episode depres sed, severe, without psychotic features (ICD-10 - F31.4) May, Wheelchair dependent (ICD-10 - Z99.3) May, Abnormality of gait (ICD-10 - R26.9) May, Decreased ROM of left shoulder (ICD-10 - M25.612) May, Acute pain of left shoulder (ICD-10 - M2 5.512) May, Heart failure, unspecified (ICD-10 - I50 .9) May, Hyp hrt & chr kdny dis w hrt fail and st g -/unsp chr kdny (ICD-10 - I13.0) May, History of urinary tract infection (ICD- 10 - Z87.440) May, Hospital discharge follow-up (ICD-10 - Z 09) PLAN OF TREATMENT Medication Medication Name Sig Start Date Stop Date Cipro 500 MG 1 tablet Orally every 12 hrs for 7 days Mar, Diclofenac Sodium 1 % 2 gram application to affected area Transdermal Three times a day for 30 day(s) Treatment Notes Assessment Notes Clinical Notes Hospital discharge follow-up will obtain records Acute pain of left shoulder Will send order for [facility] to start physical therapy evil and treat to decrease pain and increase range of motion of neck and shoulderSince it is a taxing effort to leave the home For the patient Decreased ROM of left shoulder decrease pain do stretches da all Hyp hrt & chr kdny dis w hrt fail -- Maintian a low salt WELCH H diet, and stg -/unsp chr kdny exercise, weight loss and decrease stress recommended. Keep BP log and will review next visit. If blood pressure consistently above 140/90 return to clinic for adjustment of meds. Try to quit smoking if you currently smoke. Decrease caffeine intake if possible. - - advised to avoid phenylephrine and pseudoephedrine in otc sinus/cold meds containing these decongestants which work by vasoconstricting blood vessels to help decrease congestion however may cause your BP to rise. -- If you have a cold may take Coricidin brand of cold medicines safe for high blood pressure patients. Heart failure, unspecified -low salt diet.-limit water intak e to no more than 1.5L per day- Weigh yourself daily. If increase swelling in legs and ankles or weight gain of more than 2-3 lbs in one day then call clinic because you are likely retaining fluid.- Go to ER if you develop any sob or chest pain.-May increase lasix for about 3 days to decrease edema. Bipolar disorder, current episode Follow up with mental heal th depressed, severe, without specialist Dr. Bravo psychotic features Dementia without behavioral Continue medications follow-up w ith disturbance, unspecified dementia neurology type Wheelchair dependent Fall precautions discussed-Be careful and try to eliminate rugs, throws, pets , and dim lighting.-Take frequent breaks if you feel tired- Move slowly and take a look at your surrounding before you get up and move.- use walker /wheelchair Next Appt Details 2 Months Reason: Provider Name:Nina Alegre, 2020-07-08 01:2 0:00 PM, [address] [place], [address], [place], [address], Insurance Providers Payer Name Payer Address Payer Insured Patient Coverage Cover age Phone Name Relationship to Start Date End Date Insured MEDICARE Attn Part B [id number] Yanelis Mason self [employer] Claims [address] [facility] [id number] [place] [address] [phone] Yanelis Mason self and [employer] [address] [address]
--- OUTSIDE RECORDS SUMMARY | 2020-05-16 07:22 | XMS REPORT | Continuity of Care Document ---
:1945 Author Organization [facility] t Address [address] [place] [address] Care Team Providers Name Role Phone Unavailable Unavailable Unavailable Payers Payer Name Policy Type Policy Number Effective Date Expiration Date S ource Problems This patient has no known problems. Allergies, Adverse Reactions, Alerts Allergy Allergy Status Severity Reaction(s) Onset Inactive Treating Comm ents Source Name Type Date Date Clinician No Known DA Active U 2019-07 [facility] [place] [facility] 00:[facility]: [address] No Known DA Active U 0 [facility] 2-20 [place] 00:[facility]: [facility] 00 are [place] Medications Ordered Filled Start Stop Current Ordering Indication Dosage Frequency Signature Comments Components Source Medication Medication Date Date Medication? Clinician (SIG) Name Name Cipro Cipro 2020- Yes Na Alegre [address] [facility] Santyl Santyl 0 2020- No [facility] 1 [facility] - [facility]: 00:00 n nickel [facility] 00 :00 thickness l Outpati ent Clinics Zofran Zofran 2018-07 Yes Na [facility]re [address] [facility] - 00:[facility]: [facility] 00 l [facility] Comp Air Comp Air 2018-07 Yes Na [facility] as [facility] Compressor Compressor 2-13 directed [facility] - Nebulizer Nebulizer 00:00: Mem oria 00 l [facility] Levothyroxi Levothyroxi 2018-07 Yes Na Alegre [address] [facility] ne Sodium ne Sodium 0-24 in the [place] [facility] - 00:00: morning on Memoria 00 an empty l stomach [facility] Imitrex Imitrex Yes Na Alegre [address] [facility] 9-30 as needed [facility] - 00:[facility]: [facility] 00 l [facility] Flonase Flonase Yes Na Alegre [address] [facility] 6[facility]06 each [facility] - 00:00: nostril Memoria 00 l [facility] Claritin Claritin Yes Na Alegre [address] [facility] 6-06 [facility] - 00:00: [facility]oria 00 l [facility] Divalproex Divalproex Yes Na Alegre [address] [facility] Sodium Sodium [facility] Lisinopril Lisinopril Yes Na Alegre [address] [facility] Carvedilol Carvedilol Yes Na Alegre [address] [facility] Simethicone Simethicone Yes Na [place]legre [address] [facility] after [facility] - meals and Memoria at bedtime l as needed [facility] Furosemide Furosemide Yes Na Alegre TAKE [address] [facility] TABLET BY [facility] - MOUTH Memoria EVERY DAY l [facility] Duloxetine Duloxetine Yes Na Alegre [address] [facility] HCl HCl [facility] - [facility] l [facility] Benadryl Benadryl Yes Na Alegre [address] [facility] Allergy Allergy as needed [facility] - Memoria l [facility]ics Metoprolol Metoprolol Yes Na Alegre TAKE [address] [facility] Succinate Succinate TABLET BY [facility] - ER ER MOUTH Memoria TWICE l DAILY AT [facility] 6AM AND ent 6PM Clinics Topiramate Topiramate Yes Na Alegre TAKE [address] [facility] TABLET BY [facility] - MOUTH Memoria TWICE l DAILY [facility] Ipratropium Ipratropium Yes Na Alegre [address] [facility] -Albuterol -Albuterol [place] [facility] - Memoria l [facility]ics Calcium Calcium Yes [facility] Carbamazepi Carbamazepi Yes Na Alegre [address] [facility] ne ne [facility] - [facility] l [facility] ent Clinics BuPROPion BuPROPion Yes Na Alegre [address] [facility] HCl ER (XL) HCl ER (XL) in the [facility] - morning [facility]oria l [facility] Clinics Gabapentin Gabapentin Yes Na Alegre [address] [facility] Levothyroxi Levothyroxi Yes Na Alegre [address] [facility] ne Sodium ne Sodium on an Luke s - empty Memoria stomach in l the [facility] morning ent Clinics Atorvastati Atorvastati Yes Na Alegre [address] [facility] n Calcium n Calcium [facility] - [facility] l [facility]ics Diclofenac Diclofenac Yes Na Alegre [address] [facility] Sodium Sodium with food [facility] - or milk Memoria l [facility]ics Donepezil Donepezil Yes Na Alegre [address] [facility] HCl HCl at bedtime [facility] - [facility] Protonix Protonix Yes Na Alegre [address] [facility] Ondansetron Ondansetron Yes Na Alegre [address] [facility] [address] HCl HCl [facility] - [facility] Oxybutynin Oxybutynin Yes Na Alegre [address] [facility] Chloride ER Chloride ER L ukes - Memoria l [facility] Clinics Folic Folic Yes Na Alegre [address] [facility] [address] Acid-Vit Acid-Vit [facility] - B6-Vit B12 B6-Vit B12 Mem oria l [facility] Clinics Memantine Memantine Yes Na Alegre [address] [facility] HCl HCl [facility] - [facility] l [facility]ics Trazodone Trazodone Yes Na Alegre not [facility] HCl HCl defined [facility] - [facility] Imodium A-D Imodium A-D Yes Na Alegre [address] [facility] as needed [facility] - [facility] Melatonin Melatonin Yes Na Alegre [address] [facility] at bedtime [facility] - as needed [facility]oria with food l [facility]ics Vitamin D Vitamin D Yes Na Alegre [address] [facility] - [facility] l Outpati ent Clinics Zantac Zantac Yes Na Alerge [address] [facility] - [facility] l Outpati ent Clinics Procedures Procedure Date / Time Performed Performing [id number] 2020-04-22 00:00:00 ENCPL [id number] 2020-04-22 00:00:00 ENCPL [id number] 2020-04-22 00:00:00 ENCPL [id number] 2020-04-22 00:00:00 ENCPL [id number] 2020-04-22 00:00:00 ENCPL [id number] 2020-04-19 00:00:00 ENCPL [id number] 2020-04-19 00:00:00 ENCPL [id number] 2020-04-19 00:00:00 ENCPL [id number] 2020-04-19 00:00:00 ENCPL [id number] 2020-04-19 00:00:00 ENCPL [id number] 2020-04-19 00:00:00 ENCPL Encounters Start End Encounter Admission Attending Care Care Encounter Source Date/Time Date/Time Type Type Clinicians Facility Department ID 2020-05-11 2020-05-11 Outpatient [facility] [id number] [facility] 2020-05-09 2020-05-09 Outpatient STLMLC [facility]LMLC [id number] [facility] 2020-05-06 2020-05-06 Outpatient [facility]LMLC STLMLC [id number] [facility] 2020-03-28 2020-03-28 Outpatient STLMLC STLMLC [id number] [facility] 2020-03-17 2020-03-17 Outpatient Anna Johnson [id number] [facility] 15:04:00 15:04:00 Tissue [employer] [facility] Outpati ent Clinics 2020-03-08 2020-03-08 Outpatient [facility] [id number] [facility] 16:56:00 16:56:00 [place] [email or web address] s - Drive [facility] Medicine Medicine Outpati ent Clinics 2020-02-09 2020-02-09 [place] [id number] 16:59:00 16:59:00 [place] [employer] s - Drive [facility] l Medicine Outpati ent Clinics 2020-02-05 2020-02-05 [facility] [id number] 17:16:00 17:16:00 [place] [employer] s - Drive [facility] l Medicine Outpati ent Clinics 2020-01-23 2020-01-23 [facility] [id number] 10:32:00 10:32:00 t [place] Care [facility] Connect s - Drive [facility] Medicine Outpati ent Clinics 2020-01-15 2020-01-15 [facility] [id number] 09:59:00 09:59:00 t [place] Care [facility] Connect s - Drive [facility] Medicine Outpati ent Clinics 2020-01-10 2020-01-10 [facility] [id number] 14:25:00 14:25:00 t [place] Care [facility] Connect s - Drive [facility] Medicine Outpati ent Clinics 2020-01-08 2020-01-08 [facility] [id number] 14:20:00 14:20:00 t [employer] s - Drive [facility] Medicine Outpati ent Clinics 2020-01-07 2020-01-07 [facility] [id number] [address] 19:54:00 19:54:00 t [facility] s - Road [facility] Medicine Outpati ent Clinics 2020-01-04 2020-01-04 [facility] [id number] 13:37:00 13:37:00 t [place] [facility] Connect s - Drive [facility] l Medicine Outpati ent Clinics 2019-09-13 2019-09-13 [facility] [id number] [facility] 09:14:00 09:14:00 t [place] Care [facility] Connect s - Drive [facility] Medicine Outpati ent Clinics 2019-07-01 2019-07-01 [facility] [id number] [facility] 15:38:00 15:38:[address] Luke s - Drive [facility] l Medicine Outpati ent Clinics 2019-06-27 2019-06-27 [facility] [id number] 10:00:00 10:00:[address] Luke s - Drive [facility] Medicine l Medicine Outpati ent Clinics 2019-06-21 2019-06-21 [facility] [id number] [address] 14:45:00 14:45:[address] Luke s - Drive [facility] l Medicine Outpati ent Clinics 2019-06-16 2019-06-16 [facility] [id number] [facility] 15:42:00 15:42:00 [place] [employer] Luke s - Drive [facility] Medicine l Medicine Outpati ent Clinics 2019-06-14 2019-06-14 [facility] [id number] 10:40:00 10:40:00 [place] [employer] Luke s - Drive [facility] Medicine l Medicine Outpati ent Clinics 2019-06-06 2019-06-06 [facility] [id number] 11:00:00 11:00:00 [place] [employer] Luke s - Drive [facility] Medicine l Medicine Outpati ent Clinics 2019-06-05 2019-06-05 [facility] [id number] 16:47:00 16:47:00 [place] [employer] Luke s - Drive [facility] Medicine l Medicine Outpati ent Clinics 2019-05-12 2019-05-12 [facility] [id number] 15:40:00 15:40:00 t [place] [employer] Luke s - Drive [facility] Medicine l Medicine Outpati ent Clinics 2019-04-27 2019-04-27 [facility] [id number] 16:10:00 16:10:00 [place] [employer] Luke s - Drive [facility] Medicine l Medicine Outpati ent Clinics 2019-04-27 2019-04-27 [facility] [id number] 11:20:00 11:20:[address] Luke s - Drive [facility] Medicine l Medicine Outpati ent Clinics 2019-04-03 2019-04-03 [facility] [id number] 12:04:00 12:04:00 t [employer] [place] s - [facility] ent Clinics 2019-03-28 2019-03-28 [facility] [id number] 13:40:00 13:40:00 t [place] [employer] [facility] ent Clinics 2019-03-21 2019-03-21 [facility] [id number] 15:40:00 15:40:00 t [employer] - [employer] [facility] ent Clinics 2019-03-14 2019-03-14 [facility] [id number] 13:13:00 13:13:00 t [employer] [facility] ent Clinics 2019-03-13 2019-03-13 Outpatient [place] [facility] [id number] 14:00:00 14:00:00 t [employer] [place] [facility] - [facility] ent Clinics 2018-12-08 2018-12-08 [facility] [id number] [facility] 15:00:00 15:00:00 t [facility] and [facility] - and [facility] a [facility] of [facility] [place] by [facility] ent Clinics Results Test Description Test Time Test Comments Results Result Comments Source CBC W/AUTO DIFF 2020-04-22 07:20:00 Test Item Value Reference Range Interpretation Comme nts WHITE BLOOD CELL (test code = WBC) 5.7 K/mm3 3.5-11.0 N RED BLOOD CELL (test code = RBC) 2.28 M/mm3 4.70-6.10 L HEMOGLOBIN (test code = HGB) 7.2 G/DL 10.4-14.9 L HEMATOCRIT (test code = HCT) 23.5 % 31.5-44.1 L MEAN CELL VOLUME (test code = MCV) 103.1 Fl 84.5-98.6 H MEAN CELL HGB (test code = MCH) 31.6 pg 27.0-34.2 N MEAN CELL HGB CONCETRATION (test code = MCHC) 30.6 G/DL 31.5-34. 0 L RED CELL DISTRIBUTION WIDTH (test code = RDW) 14.3 SD 11.5-14. 5 N PLATELET COUNT (test code = PLT) 150 K/mm3 150-450 N MEAN PLATELET VOLUME (test code = MPV) 12.00 fL 7.0-10.5 H NEUTROPHIL % (test code = NT%) 52.0 % 40-76 N IMMATURE GRANULOCYTE % (test code = IG%) 0.4 % 0.0-5.0 N LYMPHOCYTE % (test code = LY%) 29.9 % 20.5-51.1 N MONOCYTE % (test code = MO%) 6.4 % 1.7-9.3 N EOSINOPHIL % (test code = EO%) 10.8 % 0.0-6.0 H BASOPHIL % (test code = BA%) 0.5 % 0.0-2.0 N NUCLEATED RBC % (test code = NRBC%) 0.0 /100WBC% 0.0-1.0 N NEUTROPHIL # (test code = NT#) 2.9 K/mm3 1.8-7.6 N IMMATURE GRANULOCYTE # (test code = IG#) 0.02 x10 3/uL 0.00-0.03 N LYMPHOCYTE # (test code = LY#) 1.7 K/mm3 0.6-3.2 N MONOCYTE # (test code = MO#) 0.4 K/mm3 0.3-1.1 N EOSINOPHIL # (test code = EO#) 0.6 K/mm3 0.0-0.4 H BASOPHIL # (test code = BA#) 0.0 K/mm3 0.0-0.1 N NUCLEATED RBC # (test code = NRBC#) 0.0 K/mm3 0.0-0.1 N MANUAL DIFF REQUIRED (test code = MDIFF) NO DIFF/SCN CRITERIA CBC W/AUTO [id number] 12:23:00 Test Item Value Reference Range Interpretation Comments WHITE BLOOD CELL (test code = 5.6 K/mm3 3.5-11.0 N WBC) RED BLOOD CELL (test code = 2.35 M/mm3 4.70-6.10 L RBC) HEMOGLOBIN (test code = HGB) 7.5 G/DL 10.4-14.9 L HEMATOCRIT (test code = HCT) 23.5 % 31.5-44.1 L MEAN CELL VOLUME (test code = 100.0 Fl 84.5-98.6 H MCV) MEAN CELL HGB (test code = MCH) 31.9 pg 27.0-34.2 N MEAN CELL HGB CONCETRATION 31.9 G/DL 31.5-34.0 N (test code = MCHC) RED CELL DISTRIBUTION WIDTH 14.2 SD 11.5-14.5 N (test code = RDW) PLATELET COUNT (test code = 142 K/mm3 150-450 L PLT) MEAN PLATELET VOLUME (test code 11.20 fL 7.0-10.5 H = MPV) NEUTROPHIL % (test code = NT%) 57.7 % 40-76 N IMMATURE GRANULOCYTE % (test 0.4 % 0.0-5.0 N code = IG%) LYMPHOCYTE % (test code = LY%) 22.1 % 20.5-51.1 N MONOCYTE % (test code = MO%) 6.8 % 1.7-9.3 N EOSINOPHIL % (test code = EO%) 12.6 % 0.0-6.0 H BASOPHIL % (test code = BA%) 0.4 % 0.0-2.0 N NUCLEATED RBC % (test code = 0.0 /100WBC% 0.0-1.0 N NRBC%) NEUTROPHIL # (test code = NT#) 3.2 K/mm3 1.8-7.6 N IMMATURE GRANULOCYTE # (test 0.02 x10 3/uL 0.00-0.03 N code = IG#) LYMPHOCYTE # (test code = LY#) 1.2 K/mm3 0.6-3.2 N MONOCYTE # (test code = MO#) 0.4 K/mm3 0.3-1.1 N EOSINOPHIL # (test code = EO#) 0.7 K/mm3 0.0-0.4 H BASOPHIL # (test code = BA#) 0.0 K/mm3 0.0-0.1 N NUCLEATED RBC # (test code = 0.0 K/mm3 0.0-0.1 N NRBC#) MANUAL DIFF REQUIRED (test code NO DIFF/SCN CRITERIA = MDIFF) [id number] 15:11:00 Test Item Value Reference Range Interpretation Comments TRANSFERRRIN (test code 193 mg/dL 192-364 Perf ormed At: BN = TRANSF) [facility] [id number] [place], [place] [id number] ra Carlitos ZAMORA [phone] GLUCOSE BEDSIDE [id number] 13:01:00 Test Item Value Reference Range Interpretation Comments GLUCOSE BEDSIDE TESTING (test code 101 mg/dL 70-110 N = GLUBED) GLUCOSE BEDSIDE [id number] 08:35:00 Test Item Value Reference Range Interpretation Comments GLUCOSE BEDSIDE TESTING (test code 101 mg/dL 70-110 N = GLUBED) GLUCOSE BEDSIDE [id number] 19:42:00 Test Item Value Reference Range Interpretation Comments GLUCOSE BEDSIDE TESTING (test code = 93 mg/dL 70-110 N GLUBED) GLUCOSE BEDSIDE [id number] 16:13:00 Test Item Value Reference Range Interpretation Comments GLUCOSE BEDSIDE TESTING (test code = 96 mg/dL 70-110 N GLUBED) GLUCOSE BEDSIDE [id number] 12:55:00 Test Item Value Reference Range Interpretation Comments GLUCOSE BEDSIDE TESTING (test code 104 mg/dL 70-110 N = GLUBED) CBC W/AUTO [id number] 12:42:00 Test Item Value Reference Range Interpretation Comments WHITE BLOOD CELL (test code = 7.1 K/mm3 3.5-11.0 N WBC) RED BLOOD CELL (test code = 2.95 M/mm3 4.70-6.10 L RBC) HEMOGLOBIN (test code = HGB) 9.3 G/DL 10.4-14.9 L HEMATOCRIT (test code = HCT) 28.6 % 31.5-44.1 L MEAN CELL VOLUME (test code = 96.9 Fl 84.5-98.6 N MCV) MEAN CELL HGB (test code = MCH) 31.5 pg 27.0-34.2 N MEAN CELL HGB CONCETRATION 32.5 G/DL 31.5-34.0 N (test code = MCHC) RED CELL DISTRIBUTION WIDTH 13.9 SD 11.5-14.5 N (test code = RDW) PLATELET COUNT (test code = 113 K/mm3 150-450 L PLT) MEAN PLATELET VOLUME (test code 9.40 fL 7.0-10.5 N = MPV) NEUTROPHIL % (test code = NT%) 66.1 % 40-76 IMMATURE GRANULOCYTE % (test 0.6 % 0.0-5.0 N code = IG%) LYMPHOCYTE % (test code = LY%) 17.8 % 20.5-51.1 L MONOCYTE % (test code = MO%) 11.6 % 1.7-9.3 H EOSINOPHIL % (test code = EO%) 3.8 % 0.0-6.0 N BASOPHIL % (test code = BA%) 0.1 % 0.0-2.0 N NUCLEATED RBC % (test code = 0.0 /100WBC% 0.0-1.0 N NRBC%) NEUTROPHIL # (test code = NT#) 4.7 K/mm3 1.8-7.6 N IMMATURE GRANULOCYTE # (test 0.04 x10 3/uL 0.00-0.03 H code = IG#) LYMPHOCYTE # (test code = LY#) 1.3 K/mm3 0.6-3.2 N MONOCYTE # (test code = MO#) 0.8 K/mm3 0.3-1.1 N EOSINOPHIL # (test code = EO#) 0.3 K/mm3 0.0-0.4 N BASOPHIL # (test code = BA#) 0.0 K/mm3 0.0-0.1 N NUCLEATED RBC # (test code = 0.0 K/mm3 0.0-0.1 N NRBC#) FE W/TOTAL IRON BINDING CAP.2020-04-13 08:58:00 Test Item Value Reference Range Interpretation Comments SERUM IRON (test code = IRON) 85 mcG/DL 50-170 N TOTAL IRON BINDING CAPACITY (test 241 mcG/DL 250-450 L code = TIBC) IRON SATURATION (test code = 35 % calc 12-57 N FESAT) VITAMIN [id number] 08:58:00 Test Item Value Reference Range Interpretation Comments VITAMIN B12 (test code = VITB12) 479 PG/ML 183-986 N FOLIC [id number] 08:58:00 Test Item Value Reference Range Interpretation Comments FOLIC ACID (test code = FOL) 7.00 NG/ML 3.10-17.50 N [id number] 08:58:00 Test Item Value Reference Range Interpretation Comments FERRITIN (test code = TIO) 154.1 NG/ML 3.0-105.0 H GLUCOSE BEDSIDE [id number] 08:22:00 Test Item Value Reference Range Interpretation Comments GLUCOSE BEDSIDE TESTING (test code 107 mg/dL 70-110 N = GLUBED) BASIC METABOLIC [id number] 06:11:00 Test Item Value Reference Range Interpretation Comments SODIUM (test code = NA) 139 mmol/L 134-147 N POTASSIUM (test code = K) 3.6 mmol/L 3.4-5.0 N CHLORIDE (test code = CL) 109 mmol/L 100-108 H CARBON DIOXIDE (test code = CO2) 27 mmol/L 21-32 N ANION GAP (test code = GAP) 3.0 GAP calc 4.0-15.0 L GLUCOSE (test code = GLU) 108 MG/DL 70-110 BLOOD UREA NITROGEN (test code = 13 MG/DL 7-18 N BUN) GLOMERULAR FILTRATION RATE (test 52 estGFR >60 L code = GFR) CREATININE (test code = CREAT) 1.1 MG/DL 0.6-1.0 H CALCIUM (test code = CA) 8.8 MG/DL 8.5-10.1 N GLUCOSE BEDSIDE [id number] 20:03:00 Test Item Value Reference Range Interpretation Comments GLUCOSE BEDSIDE TESTING (test code 124 mg/dL 70-110 H = GLUBED) CBC W/AUTO [id number] 08:57:00 Test Item Value Reference Range Interpretation Comments WHITE BLOOD CELL 4.9 K/mm3 3.5-11.0 N (test code = WBC) RED BLOOD CELL (test 2.46 M/mm3 4.70-6.10 L code = RBC) HEMOGLOBIN (test code 7.6 G/DL 10.4-14.9 L = HGB) HEMATOCRIT (test code 24.3 % 31.5-44.1 L = HCT) MEAN CELL VOLUME 98.8 Fl 84.5-98.6 H (test code = MCV) MEAN CELL HGB (test 30.9 pg 27.0-34.2 N code = MCH) MEAN CELL HGB 31.3 G/DL 31.5-34.0 L CONCETRATION (test code = MCHC) RED CELL DISTRIBUTION 13.8 SD 11.5-14.5 N WIDTH (test code = RDW) PLATELET COUNT (test 95 K/mm3 150-450 L code = PLT) MEAN PLATELET VOLUME 10.30 fL 7.0-10.5 N (test code = MPV) NEUTROPHIL % (test 55.9 % 40-76 code = NT%) IMMATURE GRANULOCYTE 0.4 % 0.0-5.0 N % (test code = IG%) LYMPHOCYTE % (test 22.5 % 20.5-51.1 N code = LY%) MONOCYTE % (test code 10.5 % 1.7-9.3 H = MO%) EOSINOPHIL % (test 10.3 % 0.0-6.0 H code = EO%) BASOPHIL % (test code 0.4 % 0.0-2.0 N = BA%) NUCLEATED RBC % (test 0.0 /100WBC% 0.0-1.0 N code = NRBC%) NEUTROPHIL # (test 2.7 K/mm3 1.8-7.6 N code = NT#) IMMATURE GRANULOCYTE 0.02 x10 3/uL 0.00-0.03 N # (test code = IG#) LYMPHOCYTE # (test 1.1 K/mm3 0.6-3.2 N code = LY#) MONOCYTE # (test code 0.5 K/mm3 0.3-1.1 N = MO#) EOSINOPHIL # (test 0.5 K/mm3 0.0-0.4 H code = EO#) BASOPHIL # (test code 0.0 K/mm3 0.0-0.1 N = BA#) NUCLEATED RBC # (test 0.0 K/mm3 0.0-0.1 N code = NRBC#) MANUAL DIFF REQUIRED NO DIFF/SCN CRITERIA SLIDE R EVIEW (test code = MDIFF) CONSISTA NT WITH AUTO DIFFERENTI AL. CBC W/AUTO [id number] 08:57:00 Test Item Value Reference Range Interpretation Comments WHITE BLOOD CELL 4.9 K/mm3 3.5-11.0 N (test code = WBC) RED BLOOD CELL (test 2.46 M/mm3 4.70-6.10 L code = RBC) HEMOGLOBIN (test code 7.6 G/DL 10.4-14.9 L = HGB) HEMATOCRIT (test code 24.3 % 31.5-44.1 L = HCT) MEAN CELL VOLUME 98.8 Fl 84.5-98.6 H (test code = MCV) MEAN CELL HGB (test 30.9 pg 27.0-34.2 N code = MCH) MEAN CELL HGB 31.3 G/DL 31.5-34.0 L CONCETRATION (test code = MCHC) RED CELL DISTRIBUTION 13.8 SD 11.5-14.5 N WIDTH (test code = RDW) PLATELET COUNT (test 95 K/mm3 150-450 L code = PLT) MEAN PLATELET VOLUME 10.30 fL 7.0-10.5 N (test code = MPV) NEUTROPHIL % (test 55.9 % 40-76 code = NT%) IMMATURE GRANULOCYTE 0.4 % 0.0-5.0 N % (test code = IG%) LYMPHOCYTE % (test 22.5 % 20.5-51.1 N code = LY%) MONOCYTE % (test code 10.5 % 1.7-9.3 H = MO%) EOSINOPHIL % (test 10.3 % 0.0-6.0 H code = EO%) BASOPHIL % (test code 0.4 % 0.0-2.0 N = BA%) NUCLEATED RBC % (test 0.0 /100WBC% 0.0-1.0 N code = NRBC%) NEUTROPHIL # (test 2.7 K/mm3 1.8-7.6 N code = NT#) IMMATURE GRANULOCYTE 0.02 x10 3/uL 0.00-0.03 N # (test code = IG#) LYMPHOCYTE # (test 1.1 K/mm3 0.6-3.2 N code = LY#) MONOCYTE # (test code 0.5 K/mm3 0.3-1.1 N = MO#) EOSINOPHIL # (test 0.5 K/mm3 0.0-0.4 H code = EO#) BASOPHIL # (test code 0.0 K/mm3 0.0-0.1 N = BA#) NUCLEATED RBC # (test 0.0 K/mm3 0.0-0.1 N code = NRBC#) MANUAL DIFF REQUIRED NO DIFF/SCN CRITERIA SLIDE R KOFIW (test code = MDIFF) CONSISTA NT WITH AUTO DIFFERENTI AL. RBC [id number] 08:57:00 Test Item Value Reference Range Interpretation Comments PLATELET ESTIMATE DECREASED THOUSAND ADEQUATE PLAT ELET COUNT (test code = REVIEWED AND PLTEST) VERIFIED. PLATELET MORPHOLOGY NORMAL (test code = PLTMORPH) CBC W/AUTO [id number] 08:57:00 Test Item Value Reference Range Interpretation Comments WHITE BLOOD CELL 4.9 K/mm3 3.5-11.0 N (test code = WBC) RED BLOOD CELL (test 2.46 M/mm3 4.70-6.10 L code = RBC) HEMOGLOBIN (test code 7.6 G/DL 10.4-14.9 L = HGB) HEMATOCRIT (test code 24.3 % 31.5-44.1 L = HCT) MEAN CELL VOLUME 98.8 Fl 84.5-98.6 H (test code = MCV) MEAN CELL HGB (test 30.9 pg 27.0-34.2 N code = MCH) MEAN CELL HGB 31.3 G/DL 31.5-34.0 L CONCETRATION (test code = MCHC) RED CELL DISTRIBUTION 13.8 SD 11.5-14.5 N WIDTH (test code = RDW) PLATELET COUNT (test 95 K/mm3 150-450 L code = PLT) MEAN PLATELET VOLUME 10.30 fL 7.0-10.5 N (test code = MPV) NEUTROPHIL % (test 55.9 % 40-76 code = NT%) IMMATURE GRANULOCYTE 0.4 % 0.0-5.0 N % (test code = IG%) LYMPHOCYTE % (test 22.5 % 20.5-51.1 N code = LY%) MONOCYTE % (test code 10.5 % 1.7-9.3 H = MO%) EOSINOPHIL % (test 10.3 % 0.0-6.0 H code = EO%) BASOPHIL % (test code 0.4 % 0.0-2.0 N = BA%) NUCLEATED RBC % (test 0.0 /100WBC% 0.0-1.0 N code = NRBC%) NEUTROPHIL # (test 2.7 K/mm3 1.8-7.6 N code = NT#) IMMATURE GRANULOCYTE 0.02 x10 3/uL 0.00-0.03 N # (test code = IG#) LYMPHOCYTE # (test 1.1 K/mm3 0.6-3.2 N code = LY#) MONOCYTE # (test code 0.5 K/mm3 0.3-1.1 N = MO#) EOSINOPHIL # (test 0.5 K/mm3 0.0-0.4 H code = EO#) BASOPHIL # (test code 0.0 K/mm3 0.0-0.1 N = BA#) NUCLEATED RBC # (test 0.0 K/mm3 0.0-0.1 N code = NRBC#) MANUAL DIFF REQUIRED NO DIFF/SCN CRITERIA SLIDE Lul MADRIGAL (test code = MDIFF) CONSISTA NT WITH AUTO DIFFERENTI AL. GLUCOSE BEDSIDE [id number] 07:43:00 Test Item Value Reference Range Interpretation Comments GLUCOSE BEDSIDE TESTING (test code = 97 mg/dL 70-110 N GLUBED) BASIC METABOLIC [id number] 07:02:00 Test Item Value Reference Range Interpretation Comments SODIUM (test code = NA) 126 mmol/L 134-147 L POTASSIUM (test code = K) 3.5 mmol/L 3.4-5.0 N CHLORIDE (test code = CL) 96 mmol/L 100-108 L CARBON DIOXIDE (test code = CO2) 23 mmol/L 21-32 N ANION GAP (test code = GAP) 7.0 GAP calc 4.0-15.0 N GLUCOSE (test code = GLU) 492 MG/DL 70-110 HH BLOOD UREA NITROGEN (test code = 16 MG/DL 7-18 N BUN) GLOMERULAR FILTRATION RATE (test 47 estGFR >60 L code = GFR) CREATININE (test code = CREAT) 1.2 MG/DL 0.6-1.0 H CALCIUM (test code = CA) 7.8 MG/DL 8.5-10.1 L [id number] 07:02:00 Test Item Value Reference Range Interpretation Comments MAGNESIUM (test code = MAG) 1.5 MG/DL 1.8-2.4 L CBC W/AUTO [id number] 06:50:00 Test Item Value Reference Range Interpretation Comments WHITE BLOOD CELL (test code = WBC) 4.9 K/mm3 3.5-11.0 N RED BLOOD CELL (test code = RBC) 2.46 M/mm3 4.70-6.10 L HEMOGLOBIN (test code = HGB) 7.6 G/DL 10.4-14.9 L HEMATOCRIT (test code = HCT) 24.3 % 31.5-44.1 L MEAN CELL VOLUME (test code = MCV) 98.8 Fl 84.5-98.6 H MEAN CELL HGB (test code = MCH) 30.9 pg 27.0-34.2 N MEAN CELL HGB CONCETRATION (test 31.3 G/DL 31.5-34.0 L code = MCHC) RED CELL DISTRIBUTION WIDTH (test SD 11.5-14.5 N code = RDW) PLATELET COUNT (test code = PLT) 95 K/mm3 150-450 L MEAN PLATELET VOLUME (test code = fL 7.0-10.5 N MPV) NEUTROPHIL % (test code = NT%) % 40-76 IMMATURE GRANULOCYTE % (test code % 0.0-5.0 N = IG%) LYMPHOCYTE % (test code = LY%) % 20.5-51.1 N MONOCYTE % (test code = MO%) % 1.7-9.3 H EOSINOPHIL % (test code = EO%) % 0.0-6.0 H BASOPHIL % (test code = BA%) % 0.0-2.0 N NUCLEATED RBC % (test code = /100WBC% 0.0-1.0 N NRBC%) NEUTROPHIL # (test code = NT#) K/mm3 1.8-7.6 N IMMATURE GRANULOCYTE # (test code x10 3/uL 0.00-0.03 N = IG#) LYMPHOCYTE # (test code = LY#) K/mm3 0.6-3.2 N MONOCYTE # (test code = MO#) K/mm3 0.3-1.1 N EOSINOPHIL # (test code = EO#) K/mm3 0.0-0.4 H BASOPHIL # (test code = BA#) K/mm3 0.0-0.1 N NUCLEATED RBC # (test code = K/mm3 0.0-0.1 N NRBC#) MANUAL DIFF REQUIRED (test code = DIFF/SCN CRITERIA MDIFF) GLUCOSE BEDSIDE [id number] 20:58:00 Test Item Value Reference Range Interpretation Comments GLUCOSE BEDSIDE TESTING (test code = 90 mg/dL 70-110 N GLUBED) GLUCOSE BEDSIDE [id number] 18:52:00 Test Item Value Reference Range Interpretation Comments GLUCOSE BEDSIDE TESTING (test code = 92 mg/dL 70-110 N GLUBED) BASIC METABOLIC [id number] 17:20:00 Test Item Value Reference Range Interpretation Comments SODIUM (test code = NA) 139 mmol/L 134-147 N POTASSIUM (test code = K) 4.1 mmol/L 3.4-5.0 N CHLORIDE (test code = CL) 107 mmol/L 100-108 N CARBON DIOXIDE (test code = CO2) 26 mmol/L 21-32 N ANION GAP (test code = GAP) 6.0 GAP calc 4.0-15.0 N GLUCOSE (test code = GLU) 100 MG/DL 70-110 BLOOD UREA NITROGEN (test code = 17 MG/DL 7-18 N BUN) GLOMERULAR FILTRATION RATE (test 58 estGFR >60 L code = GFR) CREATININE (test code = CREAT) 1.0 MG/DL 0.6-1.0 N CALCIUM (test code = CA) 9.2 MG/DL 8.5-10.1 N CORTISOL [id number] 15:12:00 Test Item Value Reference Range Interpretation Comments CORTISOL AM (test code 9.8 ug/dL 6.2-19.4 Perfo rmed At: HD = CORTAM) [facility] [address] [id number] stacie Grossman MD [phone] GLUCOSE BEDSIDE [id number] 14:56:00 Test Item Value Reference Range Interpretation Comments GLUCOSE BEDSIDE TESTING (test code 100 mg/dL 70-110 N = GLUBED) THYROID STIMULATING [id number] 13:24:00 Test Item Value Reference Range Interpretation Comments THYROID STIMULATING HORMONE 6.680 mcIU/ML 0.340-4.820 H (test code = TSH) - CT ABD PELVIS [id number] 11:35:00 Name: SHANTEL LAURENT Formerly [facility] : 1945 Age/S: 74 / F [address] [facility] Unit #: [id number] Loc: [place] [address] Phys: Ursula Do MD Acct: [id number] Dis Date: Status: ADM IN PHONE #: [phone] Exam Date: 04/11/2020 111 FAX #: Reason: abdominal pain EXAMS: CPT: [id number] CT ABD PELVIS W/CONT 03894 HISTORY: abdominal pain TECHNIQUE: Helical imaging of the abdomen and pelvis is performed with intravenous contrast. Approximately 100 mL of intravenous contrast was administered. Oral contrast is administered. Sagittal and coronal reconstructions reviewed. CT DLP dose: 991 mGy-cm. Iterative dose reduction technique was utilized. Location: C3 Comparison study: None FINDINGS: The images of the lung bases demonstrate no masses, effusions or infiltrates. Heart size is normal. There is no pericardial effusion. The liver is homogeneous, free of focal masses and dilated intrahepatic ducts. The gallbladder is unremarkable. The spleen is normal in size and contour. The pancreas is morphologically normal. No mass, pancreatic duct dilatation or peripancreatic edema is visible. The adrenal glands are normal in size and contour. There is a 2 cm low-density cyst arising from the left upper kidney. No hydronephrosis is seen. Mild perinephric stranding seen around each kidney. No renal nor ureteral calculi. The urinary bladder is unremarkable. There is minimal oral contrast in the stomach. No significant contrast seen in the remaining bowel. Stomach and duodenum appear unremarkable. The visualized small bowel is unremarkable without evidence of bowel thickening or obstruction. The colon is unremarkable. The uterus is absent. No adnexal masses are visible. No retroperitoneal lymphadenopathy is present. The diffusely atherosclerotic aorta is of normal caliber. The IVC is patent. An IVC filter appears in place. Majority of the struts have penetrated beyond the wall of the IVC. The portal vein is patent. No evidenceof ascites. Abdominal wall is intact. PAGE 1 Signed Report (CONTINUED) Name: SHANTEL LAURENT Formerly [facility] : 1945 Age/S: 74 / F [address] [facility] [place] Unit #: [id number] Loc: [place] [address] Phys: Ursual Do MD Acct: [id number] Dis Date: Status: ADM IN PHONE #: [phone] Exam Date: 04/11/2020 1115 FAX #:Reason: abdominal pain EXAMS: CPT: [id number] CT ABD PELVIS W/CONT [address]43 <Continued> No significant bone lesions. IMPRESSION: 1. There is a 2 cm low- density cyst arising from the upper pole left kidney. 2. Status post hysterectomy. 3. IVC filter in noted in the infrarenal segment. 4. Mild perinephric stranding is seen around each kidney. Consider possibility of pyelonephritis. at 1135 Reported and signed by: Gregory Mayers M.D. CC: Zurdo Rondon MD; Ursula Do MD Technologist:Shahla Vaughn, RT(R)(CT) CTDI: DLP: Trnscb Date/Time: 04/11/2020 (7345) [email or web address] Orig Print D/T: S: 04/11/2020 (6467) PAGE 2 Signed ReportGLUCOSE BEDSIDE [id number] 08:00:00 Test Item Value Reference Range Interpretation Comments GLUCOSE BEDSIDE TESTING (test code 152 mg/dL 70-110 H = GLUBED) CBC W/AUTO [id number] 06:43:00 Test Item Value Reference Range Interpretation Comments WHITE BLOOD CELL (test code = 6.7 K/mm3 3.5-11.0 N WBC) RED BLOOD CELL (test code = 2.57 M/mm3 4.70-6.10 L RBC) HEMOGLOBIN (test code = HGB) 8.1 G/DL 10.4-14.9 L HEMATOCRIT (test code = HCT) 26.3 % 31.5-44.1 L MEAN CELL VOLUME (test code = 102.3 Fl 84.5-98.6 H MCV) MEAN CELL HGB (test code = MCH) 31.5 pg 27.0-34.2 N MEAN CELL HGB CONCETRATION 30.8 G/DL 31.5-34.0 L (test code = MCHC) RED CELL DISTRIBUTION WIDTH 13.8 SD 11.5-14.5 N (test code = RDW) PLATELET COUNT (test code = 112 K/mm3 150-450 L PLT) MEAN PLATELET VOLUME (test code 10.70 fL 7.0-10.5 H = MPV) NEUTROPHIL % (test code = NT%) 73.4 % 40-76 IMMATURE GRANULOCYTE % (test 0.9 % 0.0-5.0 N code = IG%) LYMPHOCYTE % (test code = LY%) 11.4 % 20.5-51.1 L MONOCYTE % (test code = MO%) 7.9 % 1.7-9.3 N EOSINOPHIL % (test code = EO%) 6.1 % 0.0-6.0 H BASOPHIL % (test code = BA%) 0.3 % 0.0-2.0 N NUCLEATED RBC % (test code = 0.0 /100WBC% 0.0-1.0 N NRBC%) NEUTROPHIL # (test code = NT#) 4.9 K/mm3 1.8-7.6 N IMMATURE GRANULOCYTE # (test 0.06 x10 3/uL 0.00-0.03 H code = IG#) LYMPHOCYTE # (test code = LY#) 0.8 K/mm3 0.6-3.2 N MONOCYTE # (test code = MO#) 0.5 K/mm3 0.3-1.1 N EOSINOPHIL # (test code = EO#) 0.4 K/mm3 0.0-0.4 N BASOPHIL # (test code = BA#) 0.0 K/mm3 0.0-0.1 N NUCLEATED RBC # (test code = 0.0 K/mm3 0.0-0.1 N NRBC#) MANUAL DIFF REQUIRED (test code NO DIFF/SCN CRITERIA = MDIFF) RBC [id number] 06:43:00 Test Item Value Reference Range Interpretation Comments PLATELET ESTIMATE (test SLIGHTLY DECREASED ADEQUATE code = PLTEST) THOUSAND PLATELET MORPHOLOGY NORMAL (test code = PLTMORPH) CBC W/AUTO [id number] 06:42:00 Test Item Value Reference Range Interpretation Comments WHITE BLOOD CELL (test code = 6.7 K/mm3 3.5-11.0 N WBC) RED BLOOD CELL (test code = 2.57 M/mm3 4.70-6.10 L RBC) HEMOGLOBIN (test code = HGB) 8.1 G/DL 10.4-14.9 L HEMATOCRIT (test code = HCT) 26.3 % 31.5-44.1 L MEAN CELL VOLUME (test code = 102.3 Fl 84.5-98.6 H MCV) MEAN CELL HGB (test code = MCH) 31.5 pg 27.0-34.2 N MEAN CELL HGB CONCETRATION 30.8 G/DL 31.5-34.0 L (test code = MCHC) RED CELL DISTRIBUTION WIDTH 13.8 SD 11.5-14.5 N (test code = RDW) PLATELET COUNT (test code = 112 K/mm3 150-450 L PLT) MEAN PLATELET VOLUME (test code 10.70 fL 7.0-10.5 H = MPV) NEUTROPHIL % (test code = NT%) 73.4 % 40-76 IMMATURE GRANULOCYTE % (test 0.9 % 0.0-5.0 N code = IG%) LYMPHOCYTE % (test code = LY%) 11.4 % 20.5-51.1 L MONOCYTE % (test code = MO%) 7.9 % 1.7-9.3 N EOSINOPHIL % (test code = EO%) 6.1 % 0.0-6.0 H BASOPHIL % (test code = BA%) 0.3 % 0.0-2.0 N NUCLEATED RBC % (test code = 0.0 /100WBC% 0.0-1.0 N NRBC%) NEUTROPHIL # (test code = NT#) 4.9 K/mm3 1.8-7.6 N IMMATURE GRANULOCYTE # (test 0.06 x10 3/uL 0.00-0.03 H code = IG#) LYMPHOCYTE # (test code = LY#) 0.8 K/mm3 0.6-3.2 N MONOCYTE # (test code = MO#) 0.5 K/mm3 0.3-1.1 N EOSINOPHIL # (test code = EO#) 0.4 K/mm3 0.0-0.4 N BASOPHIL # (test code = BA#) 0.0 K/mm3 0.0-0.1 N NUCLEATED RBC # (test code = 0.0 K/mm3 0.0-0.1 N NRBC#) MANUAL DIFF REQUIRED (test code NO DIFF/SCN CRITERIA = MDIFF) CBC W/AUTO [id number] 06:42:00 Test Item Value Reference Range Interpretation Comments WHITE BLOOD CELL (test code = 6.7 K/mm3 3.5-11.0 N WBC) RED BLOOD CELL (test code = 2.57 M/mm3 4.70-6.10 L RBC) HEMOGLOBIN (test code = HGB) 8.1 G/DL 10.4-14.9 L HEMATOCRIT (test code = HCT) 26.3 % 31.5-44.1 L MEAN CELL VOLUME (test code = 102.3 Fl 84.5-98.6 H MCV) MEAN CELL HGB (test code = MCH) 31.5 pg 27.0-34.2 N MEAN CELL HGB CONCETRATION 30.8 G/DL 31.5-34.0 L (test code = MCHC) RED CELL DISTRIBUTION WIDTH 13.8 SD 11.5-14.5 N (test code = RDW) PLATELET COUNT (test code = 112 K/mm3 150-450 L PLT) MEAN PLATELET VOLUME (test code 10.70 fL 7.0-10.5 H = MPV) NEUTROPHIL % (test code = NT%) 73.4 % 40-76 IMMATURE GRANULOCYTE % (test 0.9 % 0.0-5.0 N code = IG%) LYMPHOCYTE % (test code = LY%) 11.4 % 20.5-51.1 L MONOCYTE % (test code = MO%) 7.9 % 1.7-9.3 N EOSINOPHIL % (test code = EO%) 6.1 % 0.0-6.0 H BASOPHIL % (test code = BA%) 0.3 % 0.0-2.0 N NUCLEATED RBC % (test code = 0.0 /100WBC% 0.0-1.0 N NRBC%) NEUTROPHIL # (test code = NT#) 4.9 K/mm3 1.8-7.6 N IMMATURE GRANULOCYTE # (test 0.06 x10 3/uL 0.00-0.03 H code = IG#) LYMPHOCYTE # (test code = LY#) 0.8 K/mm3 0.6-3.2 N MONOCYTE # (test code = MO#) 0.5 K/mm3 0.3-1.1 N EOSINOPHIL # (test code = EO#) 0.4 K/mm3 0.0-0.4 N BASOPHIL # (test code = BA#) 0.0 K/mm3 0.0-0.1 N NUCLEATED RBC # (test code = 0.0 K/mm3 0.0-0.1 N NRBC#) MANUAL DIFF REQUIRED (test code NO DIFF/SCN CRITERIA = MDIFF) GLUCOSE BEDSIDE [id number] 06:33:00 Test Item Value Reference Range Interpretation Comments GLUCOSE BEDSIDE TESTING (test code 154 mg/dL 70-110 H = GLUBED) BASIC METABOLIC [id number] 06:18:00 Test Item Value Reference Range Interpretation Comments SODIUM (test code = NA) 132 mmol/L 134-147 L POTASSIUM (test code = K) 3.2 mmol/L 3.4-5.0 L CHLORIDE (test code = CL) 99 mmol/L 100-108 L CARBON DIOXIDE (test code = CO2) 25 mmol/L 21-32 N ANION GAP (test code = GAP) 8.0 GAP calc 4.0-15.0 N GLUCOSE (test code = GLU) 440 MG/DL 70-110 H BLOOD UREA NITROGEN (test code = 19 MG/DL 7-18 H BUN) GLOMERULAR FILTRATION RATE (test 52 estGFR >60 L code = GFR) CREATININE (test code = CREAT) 1.1 MG/DL 0.6-1.0 H CALCIUM (test code = CA) 8.1 MG/DL 8.5-10.1 L - XR CHEST 1 [id number] 21:13:00 Name: SHANTEL LAURENT [place] : 1945 Age/S: 74 / F [address] [address] [place] Unit #: [id number] Loc: [place] [address] Phys: Ursula Do MD Acct: [id number] Dis Date: Status: ADM IN PHONE #: [phone] Exam Date: 04/10/20202106 FAX #: Reason: PICC LINE PLACEMENT EXAMS: CPT: [id number] XR CHEST 1 V 19753 Fluoro Time: DAP (Gy m2): Air Kerma (mGy): Location Code: H 31 CHEST AP HISTORY: PICC line placement COMPARISON: Chest radiograph from 04/07/2020 FINDINGS: Right PICC line tip is at distal SVC. No evidence of consolidation, effusion, or pneumothorax is present. The cardiomediastinal silhouette and pulmonary vasculature are normal. Cervical spine fusion hardware is noted. Osseous structures are otherwise unremarkable. IMPRESSION: Right PICC line tip is at distal SVC. at 2113 Reported and signed by: Karey Oconnor MD CC: Zurdo Rondon MD; Ursula Do MD PAGE 1 Signed Report Name: SHANTEL LAURENT [place] : 1945 Age/S: 74 / F [address] [address] [place] Unit #: [id number] Loc: [place] [address] Phys: Ursula Do MD Acct: [id number] Dis Date: Status: ADM IN PHONE #: [phone] Exam Date: 04/10/20202106 FAX #: Reason: PICC LINE PLACEMENT EXAMS: CPT: [id number] XR CHEST 1 V 09760 Fluoro Time: DAP (Gy m2): Air Kerma (mGy): <Continued> Technologist: Joelle So RT(R)(CT) Trnscb Date/Time: 04/10/2020 (2112) [id number] Orig Print D/T: S: 04/10/2020 (2115) PAGE 2 Signed ReportGLUCOSE BEDSIDE [id number] 20:19:00 Test Item Value Reference Range Interpretation Comments GLUCOSE BEDSIDE TESTING (test code = 76 mg/dL 70-110 N GLUBED) GLUCOSE BEDSIDE [id number] 16:22:00 Test Item Value Reference Range Interpretation Comments GLUCOSE BEDSIDE TESTING (test code = 82 mg/dL 70-110 N GLUBED) CBC W/AUTO [id number] 07:47:00 Test Item Value Reference Range Interpretation Comments WHITE BLOOD CELL (test code = 4.1 K/mm3 3.5-11.0 N WBC) RED BLOOD CELL (test code = 2.76 M/mm3 4.70-6.10 L RBC) HEMOGLOBIN (test code = HGB) 8.7 G/DL 10.4-14.9 L HEMATOCRIT (test code = HCT) 28.3 % 31.5-44.1 L MEAN CELL VOLUME (test code = 102.5 Fl 84.5-98.6 H MCV) MEAN CELL HGB (test code = MCH) 31.5 pg 27.0-34.2 N MEAN CELL HGB CONCETRATION 30.7 G/DL 31.5-34.0 L (test code = MCHC) RED CELL DISTRIBUTION WIDTH 14.1 SD 11.5-14.5 N (test code = RDW) PLATELET COUNT (test code = 110 K/mm3 150-450 L PLT) MEAN PLATELET VOLUME (test code 10.60 fL 7.0-10.5 H = MPV) NEUTROPHIL % (test code = NT%) 65.2 % 40-76 N IMMATURE GRANULOCYTE % (test 0.2 % 0.0-5.0 N code = IG%) LYMPHOCYTE % (test code = LY%) 18.9 % 20.5-51.1 L MONOCYTE % (test code = MO%) 8.6 % 1.7-9.3 N EOSINOPHIL % (test code = EO%) 6.6 % 0.0-6.0 H BASOPHIL % (test code = BA%) 0.5 % 0.0-2.0 N NUCLEATED RBC % (test code = 0.0 /100WBC% 0.0-1.0 N NRBC%) NEUTROPHIL # (test code = NT#) 2.7 K/mm3 1.8-7.6 N IMMATURE GRANULOCYTE # (test 0.01 x10 3/uL 0.00-0.03 N code = IG#) LYMPHOCYTE # (test code = LY#) 0.8 K/mm3 0.6-3.2 N MONOCYTE # (test code = MO#) 0.4 K/mm3 0.3-1.1 N EOSINOPHIL # (test code = EO#) 0.3 K/mm3 0.0-0.4 N BASOPHIL # (test code = BA#) 0.0 K/mm3 0.0-0.1 N NUCLEATED RBC # (test code = 0.0 K/mm3 0.0-0.1 N NRBC#) MANUAL DIFF REQUIRED (test code NO DIFF/SCN CRITERIA = MDIFF) BASIC METABOLIC [id number] 06:50:00 Test Item Value Reference Range Interpretation Comments SODIUM (test code = NA) 142 mmol/L 134-147 N POTASSIUM (test code = K) 4.2 mmol/L 3.4-5.0 N CHLORIDE (test code = CL) 107 mmol/L 100-108 N CARBON DIOXIDE (test code = CO2) 33 mmol/L 21-32 H ANION GAP (test code = GAP) 2.0 GAP calc 4.0-15.0 L GLUCOSE (test code = GLU) 154 MG/DL 70-110 H BLOOD UREA NITROGEN (test code = 26 MG/DL 7-18 H BUN) GLOMERULAR FILTRATION RATE (test 36 estGFR >60 L code = GFR) CREATININE (test code = CREAT) 1.5 MG/DL 0.6-1.0 H CALCIUM (test code = CA) 8.8 MG/DL 8.5-10.1 N GLUCOSE BEDSIDE [id number] 00:23:00 Test Item Value Reference Range Interpretation Comments GLUCOSE BEDSIDE TESTING (test code = 88 mg/dL 70-110 N GLUBED) GLUCOSE BEDSIDE [id number] 22:47:00 Test Item Value Reference Range Interpretation Comments GLUCOSE BEDSIDE TESTING (test code = 50 mg/dL 70-110 L GLUBED) GLUCOSE BEDSIDE [id number] 20:50:00 Test Item Value Reference Range Interpretation Comments GLUCOSE BEDSIDE TESTING (test code = 62 mg/dL 70-110 L GLUBED) BASIC METABOLIC [id number] 19:19:00 Test Item Value Reference Range Interpretation Comments SODIUM (test code = NA) 145 mmol/L 134-147 N POTASSIUM (test code = K) 6.4 mmol/L 3.4-5.0 HH CHLORIDE (test code = CL) 110 mmol/L 100-108 H CARBON DIOXIDE (test code = CO2) 32 mmol/L 21-32 N ANION GAP (test code = GAP) 3.0 GAP calc 4.0-15.0 L GLUCOSE (test code = GLU) 51 MG/DL 70-110 L BLOOD UREA NITROGEN (test code = 30 MG/DL 7-18 H BUN) GLOMERULAR FILTRATION RATE (test 36 estGFR >60 L code = GFR) CREATININE (test code = CREAT) 1.5 MG/DL 0.6-1.0 H CALCIUM (test code = CA) 9.5 MG/DL 8.5-10.1 N BASIC METABOLIC [id number] 15:26:00 Test Item Value Reference Range Interpretation Comments SODIUM (test code = NA) 142 mmol/L 134-147 N POTASSIUM (test code = K) 6.1 mmol/L 3.4-5.0 HH CHLORIDE (test code = CL) 109 mmol/L 100-108 H CARBON DIOXIDE (test code = CO2) 30 mmol/L 21-32 N ANION GAP (test code = GAP) 3.0 GAP calc 4.0-15.0 L GLUCOSE (test code = GLU) 87 MG/DL 70-110 N BLOOD UREA NITROGEN (test code = 30 MG/DL 7-18 H BUN) GLOMERULAR FILTRATION RATE (test 34 estGFR >60 L code = GFR) CREATININE (test code = CREAT) 1.6 MG/DL 0.6-1.0 H CALCIUM (test code = CA) 9.0 MG/DL 8.5-10.1 N GLUCOSE BEDSIDE [id number] 12:06:00 Test Item Value Reference Range Interpretation Comments GLUCOSE BEDSIDE TESTING (test code = 81 mg/dL 70-110 N GLUBED) GLUCOSE BEDSIDE [id number] 12:06:00 Test Item Value Reference Range Interpretation Comments GLUCOSE BEDSIDE TESTING (test code = 54 mg/dL 70-110 L GLUBED) GLUCOSE BEDSIDE [id number] 08:14:00 Test Item Value Reference Range Interpretation Comments GLUCOSE BEDSIDE TESTING (test code = 46 mg/dL 70-110 L GLUBED) GLUCOSE BEDSIDE [id number] 08:14:00 Test Item Value Reference Range Interpretation Comments GLUCOSE BEDSIDE TESTING (test code = 34 mg/dL 70-110 LL GLUBED) CBC W/AUTO [id number] 06:08:00 Test Item Value Reference Range Interpretation Comments WHITE BLOOD CELL (test code = 4.7 K/mm3 3.5-11.0 N WBC) RED BLOOD CELL (test code = 3.00 M/mm3 4.70-6.10 L RBC) HEMOGLOBIN (test code = HGB) 9.5 G/DL 10.4-14.9 L HEMATOCRIT (test code = HCT) 31.0 % 31.5-44.1 L MEAN CELL VOLUME (test code = 103.3 Fl 84.5-98.6 H MCV) MEAN CELL HGB (test code = MCH) 31.7 pg 27.0-34.2 N MEAN CELL HGB CONCETRATION 30.6 G/DL 31.5-34.0 L (test code = MCHC) RED CELL DISTRIBUTION WIDTH 13.8 SD 11.5-14.5 N (test code = RDW) PLATELET COUNT (test code = 91 K/mm3 150-450 L PLT) MEAN PLATELET VOLUME (test code 10.60 fL 7.0-10.5 H = MPV) NEUTROPHIL % (test code = NT%) 67.8 % 40-76 N IMMATURE GRANULOCYTE % (test 0.2 % 0.0-5.0 N code = IG%) LYMPHOCYTE % (test code = LY%) 17.7 % 20.5-51.1 L MONOCYTE % (test code = MO%) 9.6 % 1.7-9.3 H EOSINOPHIL % (test code = EO%) 4.3 % 0.0-6.0 N BASOPHIL % (test code = BA%) 0.4 % 0.0-2.0 N NUCLEATED RBC % (test code = 0.0 /100WBC% 0.0-1.0 N NRBC%) NEUTROPHIL # (test code = NT#) 3.2 K/mm3 1.8-7.6 N IMMATURE GRANULOCYTE # (test 0.01 x10 3/uL 0.00-0.03 N code = IG#) LYMPHOCYTE # (test code = LY#) 0.8 K/mm3 0.6-3.2 N MONOCYTE # (test code = MO#) 0.5 K/mm3 0.3-1.1 N EOSINOPHIL # (test code = EO#) 0.2 K/mm3 0.0-0.4 N BASOPHIL # (test code = BA#) 0.0 K/mm3 0.0-0.1 N NUCLEATED RBC # (test code = 0.0 K/mm3 0.0-0.1 N NRBC#) MANUAL DIFF REQUIRED (test code NO DIFF/SCN CRITERIA = MDIFF) RBC [id number] 06:08:00 Test Item Value Reference Range Interpretation Comments PLATELET ESTIMATE DECREASED ADEQUATE PLATELET C OUNT (test code = THOUSAND VERIFIED BY PLTEST) EXAMINATION OF PERIPHERAL BLOODSMEAR.MANU AL PLT ESTIMATE 92,000-115,000 PLATELET NORMAL MORPHOLOGY (test code = PLTMORPH) CBC W/AUTO [id number] 06:07:00 Test Item Value Reference Range Interpretation Comments WHITE BLOOD CELL (test code = 4.7 K/mm3 3.5-11.0 N WBC) RED BLOOD CELL (test code = 3.00 M/mm3 4.70-6.10 L RBC) HEMOGLOBIN (test code = HGB) 9.5 G/DL 10.4-14.9 L HEMATOCRIT (test code = HCT) 31.0 % 31.5-44.1 L MEAN CELL VOLUME (test code = 103.3 Fl 84.5-98.6 H MCV) MEAN CELL HGB (test code = MCH) 31.7 pg 27.0-34.2 N MEAN CELL HGB CONCETRATION 30.6 G/DL 31.5-34.0 L (test code = MCHC) RED CELL DISTRIBUTION WIDTH 13.8 SD 11.5-14.5 N (test code = RDW) PLATELET COUNT (test code = 91 K/mm3 150-450 L PLT) MEAN PLATELET VOLUME (test code 10.60 fL 7.0-10.5 H = MPV) NEUTROPHIL % (test code = NT%) 67.8 % 40-76 N IMMATURE GRANULOCYTE % (test 0.2 % 0.0-5.0 N code = IG%) LYMPHOCYTE % (test code = LY%) 17.7 % 20.5-51.1 L MONOCYTE % (test code = MO%) 9.6 % 1.7-9.3 H EOSINOPHIL % (test code = EO%) 4.3 % 0.0-6.0 N BASOPHIL % (test code = BA%) 0.4 % 0.0-2.0 N NUCLEATED RBC % (test code = 0.0 /100WBC% 0.0-1.0 N NRBC%) NEUTROPHIL # (test code = NT#) 3.2 K/mm3 1.8-7.6 N IMMATURE GRANULOCYTE # (test 0.01 x10 3/uL 0.00-0.03 N code = IG#) LYMPHOCYTE # (test code = LY#) 0.8 K/mm3 0.6-3.2 N MONOCYTE # (test code = MO#) 0.5 K/mm3 0.3-1.1 N EOSINOPHIL # (test code = EO#) 0.2 K/mm3 0.0-0.4 N BASOPHIL # (test code = BA#) 0.0 K/mm3 0.0-0.1 N NUCLEATED RBC # (test code = 0.0 K/mm3 0.0-0.1 N NRBC#) MANUAL DIFF REQUIRED (test code NO DIFF/SCN CRITERIA = MDIFF) CBC W/AUTO [id number] 06:07:00 Test Item Value Reference Range Interpretation Comments WHITE BLOOD CELL (test code = 4.7 K/mm3 3.5-11.0 N WBC) RED BLOOD CELL (test code = 3.00 M/mm3 4.70-6.10 L RBC) HEMOGLOBIN (test code = HGB) 9.5 G/DL 10.4-14.9 L HEMATOCRIT (test code = HCT) 31.0 % 31.5-44.1 L MEAN CELL VOLUME (test code = 103.3 Fl 84.5-98.6 H MCV) MEAN CELL HGB (test code = MCH) 31.7 pg 27.0-34.2 N MEAN CELL HGB CONCETRATION 30.6 G/DL 31.5-34.0 L (test code = MCHC) RED CELL DISTRIBUTION WIDTH 13.8 SD 11.5-14.5 N (test code = RDW) PLATELET COUNT (test code = 91 K/mm3 150-450 L PLT) MEAN PLATELET VOLUME (test code 10.60 fL 7.0-10.5 H = MPV) NEUTROPHIL % (test code = NT%) 67.8 % 40-76 N IMMATURE GRANULOCYTE % (test 0.2 % 0.0-5.0 N code = IG%) LYMPHOCYTE % (test code = LY%) 17.7 % 20.5-51.1 L MONOCYTE % (test code = MO%) 9.6 % 1.7-9.3 H EOSINOPHIL % (test code = EO%) 4.3 % 0.0-6.0 N BASOPHIL % (test code = BA%) 0.4 % 0.0-2.0 N NUCLEATED RBC % (test code = 0.0 /100WBC% 0.0-1.0 N NRBC%) NEUTROPHIL # (test code = NT#) 3.2 K/mm3 1.8-7.6 N IMMATURE GRANULOCYTE # (test 0.01 x10 3/uL 0.00-0.03 N code = IG#) LYMPHOCYTE # (test code = LY#) 0.8 K/mm3 0.6-3.2 N MONOCYTE # (test code = MO#) 0.5 K/mm3 0.3-1.1 N EOSINOPHIL # (test code = EO#) 0.2 K/mm3 0.0-0.4 N BASOPHIL # (test code = BA#) 0.0 K/mm3 0.0-0.1 N NUCLEATED RBC # (test code = 0.0 K/mm3 0.0-0.1 N NRBC#) MANUAL DIFF REQUIRED (test code NO DIFF/SCN CRITERIA = MDIFF) BASIC METABOLIC [id number] 06:06:00 Test Item Value Reference Range Interpretation Comments SODIUM (test code = NA) 144 mmol/L 134-147 N POTASSIUM (test code = K) 5.3 mmol/L 3.4-5.0 H CHLORIDE (test code = CL) 110 mmol/L 100-108 H CARBON DIOXIDE (test code = CO2) 29 mmol/L 21-32 N ANION GAP (test code = GAP) 5.0 GAP calc 4.0-15.0 N GLUCOSE (test code = GLU) 67 MG/DL 70-110 L BLOOD UREA NITROGEN (test code = 36 MG/DL 7-18 H BUN) GLOMERULAR FILTRATION RATE (test 36 estGFR >60 L code = GFR) CREATININE (test code = CREAT) 1.5 MG/DL 0.6-1.0 H CALCIUM (test code = CA) 9.4 MG/DL 8.5-10.1 N CBC W/AUTO [id number] 05:48:00 Test Item Value Reference Range Interpretation Comments WHITE BLOOD CELL (test code = WBC) 4.7 K/mm3 3.5-11.0 N RED BLOOD CELL (test code = RBC) 3.00 M/mm3 4.70-6.10 L HEMOGLOBIN (test code = HGB) 9.5 G/DL 10.4-14.9 L HEMATOCRIT (test code = HCT) 31.0 % 31.5-44.1 L MEAN CELL VOLUME (test code = MCV) 103.3 Fl 84.5-98.6 H MEAN CELL HGB (test code = MCH) 31.7 pg 27.0-34.2 N MEAN CELL HGB CONCETRATION (test 30.6 G/DL 31.5-34.0 L code = MCHC) RED CELL DISTRIBUTION WIDTH (test SD 11.5-14.5 N code = RDW) PLATELET COUNT (test code = PLT) 91 K/mm3 150-450 L MEAN PLATELET VOLUME (test code = fL 7.0-10.5 H MPV) NEUTROPHIL % (test code = NT%) % 40-76 N IMMATURE GRANULOCYTE % (test code % 0.0-5.0 N = IG%) LYMPHOCYTE % (test code = LY%) % 20.5-51.1 L MONOCYTE % (test code = MO%) % 1.7-9.3 H EOSINOPHIL % (test code = EO%) % 0.0-6.0 N BASOPHIL % (test code = BA%) % 0.0-2.0 N NUCLEATED RBC % (test code = /100WBC% 0.0-1.0 N NRBC%) NEUTROPHIL # (test code = NT#) K/mm3 1.8-7.6 N IMMATURE GRANULOCYTE # (test code x10 3/uL 0.00-0.03 N = IG#) LYMPHOCYTE # (test code = LY#) K/mm3 0.6-3.2 N MONOCYTE # (test code = MO#) K/mm3 0.3-1.1 N EOSINOPHIL # (test code = EO#) K/mm3 0.0-0.4 N BASOPHIL # (test code = BA#) K/mm3 0.0-0.1 N NUCLEATED RBC # (test code = K/mm3 0.0-0.1 N NRBC#) MANUAL DIFF REQUIRED (test code = DIFF/SCN CRITERIA MDIFF) - MRI BRAIN W/O [id number] 19:59:00 FAX: Zurdo Perales MD [phone] Camps: PM St: ADM Name: SHANTEL LAURENT [facility] : 1945 Age/S: 74/F [address] Unit #: [id number] Loc: L.ICU0 [place] [address] Phys: Zurdo Rondon MD Acct: [id number] Dis Date: Status: ADM IN PHONE #: [phone] Exam Date: 04/08/2020 1730 FAX #: Reason: ISCHEMIC STROKE EXAMS: CPT: [id number] MRI BRAIN W/O CONTRAST 30344 LOCATION CODE H 31 MRI BRAIN WITHOUT CONTRAST HISTORY: Ischemic stroke COMPARISON: CT brain from prior day TECHNIQUE: Axial GRE, axial T2, axial T1, axial T2 FLAIR, coronal T2, sagittal T1, axial DWI with ADC map, coronal DWI. No contrast given FINDINGS: There is no diffusion restriction to suggest acute ischemia. Diffuse periventricular white matter foci ofincreased T2/FLAIR signal changes are compatible with chronic microangiopathy. The ventricles and subarachnoid spaces are normal without evidence of hydrocephalus, shift of midline, or mass effect present. No evidence of subarachnoid hemorrhage, intracerebral hematoma, or extra- axial fluid collections are present. Osseous structures, surroun ding soft tissues, sella turcica, posterior fossa and brainstem, IAC's and mastoids are normalin signal intensity. Normal signal void in the carotid and basilar arteries along with superior sagittal sinus is present. Optic chiasm, pituitary stalk, and cavernous sinus regions appear within normal limits. IMPRESSION: 1. No evidence of acute ischemia or infarct. 2. Moderate diffuse periventricular white matter chronic microvascular changes. PAGE 1 Signed Report (CONTINUED) FAX: Zurdo Perales MD [phone] Camps: PM St: ADM------- Name: SHANTEL LAURENT [place] : 1945 Age/S: 74/F [address] Unit #: [id number] Loc: .ICU[address] [place] [address] Phys:Zurdo Rondon MD Acct: [id number] Dis Date: Status: ADM IN PHONE #: [phone] Exam Date: 04/08/2020 1730 FAX #: Reason: ISCHEMIC STROKE EXAMS: CPT: [id number] MRI BRAIN W/O CONTRAST 91327 <Continued> at 1958 Reported and signed by: Karey Oconnor MD CC: Zurdo Rondon MD Technologist: RT Rajat(R)(MR) Transcribed Date/Time/By: 04/08/2020 (1958) :[email or web address] Orig PrintD/T: S: 04/08/2020 (2001) PAGE 2 Signed Report- XR SHOULDER 2+V [id number] 16:42:00 Name[facility] 1945 Age/S: 74 / F [address] Unit #: [id number] Loc: [place] [address] Phys: Zurdo Rondon MD Acct: [id number] Dis Date: Status: ADM IN PHONE #: [phone] Exam Date: 04/08/2020 1630 FAX #: Reason: left shou lder pain EXAMS: CPT: [id number] XR SHOULDER 2+[place] [address] Fluoro Time: DAP (Gy m2): Air Kerma (mGy): Dictation Location B2 LEFT SHOULDER 3 VIEWS: HISTORY: Pain COMMENT: Frontal radiographs of patient's left shoulder were obtained. The humerus was in internal and external rotation. Comparison: None FINDINGS: There is old fracture of the left humeral neck with residual deformity. There is remodeling of the humeral head which may be related to prior dislocation. Degenerative narrowing of the acromioclavicular joint. No obvious acute fracture or dislocation seen. Surrounding bones and soft tissues are intact. IMPRESSION: Old injury of the left humeral head and neck with residual deformity. at 1642 Reported and signed by: Soraida Sorensen M.D. CC: Zurdo Rondon MD PAGE1 Signed Report Name: SHANTEL LAURENT [place] : 1945 Age/S: 74 / F [address] [facility] Unit #: [id number] Loc: [place] [address] Phys: Zurdo Rondon MD Acct: [id number] Dis Date: Status: ADM IN PHONE #: [phone] Exam Date: 04/08/2020 1630 FAX #: Reason: left shoulder pain EXAMS: CPT: [id number] XR SHOULDER 2+[place] [address] Fluoro Time: DAP (Gy m2): Air Kerma (mGy): <Continued> Technologist: Kimmie Curtis RT(R)(CT) Trnscb Date/Time: 04/08/2020 (1642) KingPXC Orig Print D/T: S: 04/08/2020 (7485) PAGE 2 Signed [id number] 06:02:00 Test Item Value Reference Range Interpretation Comments TROPONIN-I (test 0.160 NG/ML 0.000-0.045 HH Negative: < /= 0.045 code = TROPI) Positive: >/= 0.046 Correlation wit h serial results, other cardiac markers, and cl inical findings is nec essary to determine the c linical significance of this result. Quantit ative results using d ifferent methodologies s hould not be compared to one another as nume rical results may nella yby method. Completed by Nursing: NOBASIC METABOLIC [id number] 05:37:00 Test Item Value Reference Range Interpretation Comments SODIUM (test code = NA) 143 mmol/L 134-147 N POTASSIUM (test code = K) 4.9 mmol/L 3.4-5.0 N CHLORIDE (test code = CL) 111 mmol/L 100-108 H CARBON DIOXIDE (test code = CO2) 26 mmol/L 21-32 N ANION GAP (test code = GAP) 6.0 GAP calc 4.0-15.0 N GLUCOSE (test code = GLU) 77 MG/DL 70-110 N BLOOD UREA NITROGEN (test code = 48 MG/DL 7-18 H BUN) GLOMERULAR FILTRATION RATE (test 29 estGFR >60 L code = GFR) CREATININE (test code = CREAT) 1.8 MG/DL 0.6-1.0 H CALCIUM (test code = CA) 9.1 MG/DL 8.5-10.1 N Comment: FASTING IN AMLIPID PROFILE (CORONARY RISK)2020-04-08 05:37:00 Test Item Value Reference Range Interpretation Comments TRIGLYCERIDES (test code = TRIG) 66 MG/DL 0-150 N CHOLESTEROL (test code = CHOL) 176 MG/DL 133-200 N CHOLESTEROL/HDL RATIO (test code = 2.84 RATIO >0 CHOLHDL) HDL CHOLESTEROL (test code = HDL) 62 MG/DL 40-59 H NON-HDL CHOLESTEROL (test code = 114 mg/dL <130 NHDL) LIPOPROTEIN LDL (test code = LDL) 86 MG/DL 0-129 N LDL/HDL (test code = LDL/HDL) 1.38 Ratio 1.48-3.22 Avg L Comment: FASTING IN [id number] 05:37:00 Test Item Value Reference Range Interpretation Comments GLYCOSYLATED HEMOGLOBIN (HA1C) 5.0 % A1C 0.0-5.7 N (test code = GLYHGB) ESTIMATED AVERAGE GLUCOSE (test 97 MG/DLest code = EAG) CBC W/AUTO [id number] 05:23:00 Test Item Value Reference Range Interpretation Comments WHITE BLOOD CELL (test code = 4.5 K/mm3 3.5-11.0 N WBC) RED BLOOD CELL (test code = 2.70 M/mm3 4.70-6.10 L RBC) HEMOGLOBIN (test code = HGB) 8.5 G/DL 10.4-14.9 L HEMATOCRIT (test code = HCT) 28.1 % 31.5-44.1 L MEAN CELL VOLUME (test code = 104.1 Fl 84.5-98.6 H MCV) MEAN CELL HGB (test code = MCH) 31.5 pg 27.0-34.2 N MEAN CELL HGB CONCETRATION 30.2 G/DL 31.5-34.0 L (test code = MCHC) RED CELL DISTRIBUTION WIDTH 13.6 SD 11.5-14.5 N (test code = RDW) PLATELET COUNT (test code = 87 K/mm3 150-450 L PLT) MEAN PLATELET VOLUME (test code 11.10 fL 7.0-10.5 H = MPV) NEUTROPHIL % (test code = NT%) 62.8 % 40-76 N IMMATURE GRANULOCYTE % (test 0.2 % 0.0-5.0 N code = IG%) LYMPHOCYTE % (test code = LY%) 27.4 % 20.5-51.1 N MONOCYTE % (test code = MO%) 7.4 % 1.7-9.3 N EOSINOPHIL % (test code = EO%) 1.8 % 0.0-6.0 N BASOPHIL % (test code = BA%) 0.4 % 0.0-2.0 N NUCLEATED RBC % (test code = 0.0 /100WBC% 0.0-1.0 N NRBC%) NEUTROPHIL # (test code = NT#) 2.8 K/mm3 1.8-7.6 N IMMATURE GRANULOCYTE # (test 0.01 x10 3/uL 0.00-0.03 N code = IG#) LYMPHOCYTE # (test code = LY#) 1.2 K/mm3 0.6-3.2 N MONOCYTE # (test code = MO#) 0.3 K/mm3 0.3-1.1 N EOSINOPHIL # (test code = EO#) 0.1 K/mm3 0.0-0.4 N BASOPHIL # (test code = BA#) 0.0 K/mm3 0.0-0.1 N NUCLEATED RBC # (test code = 0.0 K/mm3 0.0-0.1 N NRBC#) MANUAL DIFF REQUIRED (test code NO DIFF/SCN CRITERIA = MDIFF) [id number] 21:26:00 Test Item Value Reference Range Interpretation Comments TROPONIN-I (test 0.155 NG/ML 0.000-0.045 HH Negative: < /= 0.045 code = TROPI) Positive: >/= 0.046 Correlation wit h serial results, other cardiac markers, and cl inical findings is nec essary to determine the c linical significance of this result. Quantit ative results using d ifferent methodologies s hould not be compared to one another as nume rical results may nella yby method. Completed by Nursing: NOVITAMIN [id number] 19:04:00 Test Item Value Reference Range Interpretation Comments VITAMIN B12 (test code = VITB12) 376 PG/ML 183-986 N FOLIC [id number] 19:04:00 Test Item Value Reference Range Interpretation Comments FOLIC ACID (test code = FOL) 6.20 NG/ML 3.10-17.50 N THYROID STIMULATING [id number] 19:04:00 Test Item Value Reference Range Interpretation Comments THYROID STIMULATING HORMONE 3.100 mcIU/ML 0.340-4.820 N (test code = TSH) CARBAMAZEPINE (TEGRETOL)2020-04-07 19:04:00 Test Item Value Reference Range Interpretation Comments CARBAMAZEPINE (TEGRETOL) (test < 0.5 mcG/ML 4.0-12.0 L code = CARB) VALPROIC ACID (DEPAKENE)2020-04-07 19:04:00 Test Item Value Reference Range Interpretation Comments VALPROIC ACID (DEPAKENE) (test 53.7 mcG/ML 50.0-100.0 N code = VALP) VITAMIN [id number] 18:35:00 Test Item Value Reference Range Interpretation Comments VITAMIN B12 (test code = VITB12) 376 PG/ML 183-986 N FOLIC [id number] 18:35:00 Test Item Value Reference Range Interpretation Comments FOLIC ACID (test code = FOL) 6.20 NG/ML 3.10-17.50 N THYROID STIMULATING [id number] 18:35:00 Test Item Value Reference Range Interpretation Comments THYROID STIMULATING HORMONE 3.100 mcIU/ML 0.340-4.820 N (test code = TSH) CARBAMAZEPINE (TEGRETOL)2020-04-07 18:35:00 Test Item Value Reference Range Interpretation Comments CARBAMAZEPINE (TEGRETOL) (test code = mcG/ML 4.0-12.0 CARB) VALPROIC ACID (DEPAKENE)2020-04-07 18:35:00 Test Item Value Reference Range Interpretation Comments VALPROIC ACID (DEPAKENE) (test code = mcG/ML 50.0-100.0 VALP) [id number] 18:17:00 Test Item Value Reference Range Interpretation Comments TROPONIN-I (test 0.140 NG/ML 0.000-0.045 HH Negative: < /= 0.045 code = TROPI) Positive: >/= 0.046 Correlation wit h serial results, other cardiac markers, and cl inical findings is nec essary to determine the c linical significance of this result. Quantit ative results using d ifferent methodologies s hould not be compared to one another as nume rical results may nella yby method. Completed by Nursing: NOCOVID 19 INHOUSE [id number] 16:14:00 Test Item Value Reference Range Interpretation Comments COVID 19 INHOUSE AG NEGATIVE Negative Per manu facturer, (test code = negative result s should [id number]) be treated aspr esumptive and, if inconsi stent with clinical signs andsymptoms or necessary for patient man agement, should betested with an alternative mol ecular assay. Negative resultsdo not preclude SA RS-CoV-2 infection and s hould not be usedas the s ole basis for patient man agement decisions. Neg ative results should be considered in t he context of apatient's r ecent exposures, hist ory, presence of cli nicalsigns and symptoms co nsistent with COVID-19. GLUCOSE BEDSIDE [id number] 16:06:00 Test Item Value Reference Range Interpretation Comments GLUCOSE BEDSIDE TESTING (test code = 79 mg/dL 70-110 N GLUBED) UA RFLX MICR CULT IF [id number] 15:35:00 Test Item Value Reference Range Interpretation Comments UA COLOR (test code = YELLOW discript YEL/STRAW COLU) UA APPEARANCE (test code CLOUDY discript CLEAR A = APPU) UA GLUCOSE DIPSTICK (test NEGATIVE mg/dL NEG code = DGLUU) UA BILIRUBIN DIPSTICK NEGATIVE mg/dL NEG (test code = BILU) UA KETONE DIPSTICK (test NEGATIVE mg/dL NEG code = KETU) UA SPECIFIC GRAVITY (test 1.010 SG 1.005-1.030 code = SGU) UA BLOOD DIPSTICK (test 2+ mg/DL NEG A code = DAMIEN) UA PH DIPSTICK (test code 6.0 pH UNITS 5.0-7.0 = RJ) UA PROTEIN DIPSTICK (test TR mg/dL NEG A code = PROU) UA UROBILINIOGEN DIPSTICK 0.2 mg/dL <2.0 (test code = URO) UA NITRITE DIPSTICK (test POSITIVE SCREEN NEG code = MARY ALICE) UA LEUKOCYTE ESTERASE 2+ Leuk/mcL NEGATIVE A DIPSTICK (test code = LEUU) UA WBC (test code = WBCU) 30-40 #WBC/HPF 0-3 A UA RBC (test code = RBCU) 5-10 #RBC/HPF 0-3 A UA BACTERIA (test code = 1+ /HPF NONE-TRACE A BACU) UA SQUAMOUS CELLS (test NONE SEEN /HPF NONE code = SQU) UA CULTURE NEEDED? (test YES,WBC>10 & EPI<25 Culture CHK code = UACULT) Criteria Indication for culture: RiskForSepsis-no oth srcUA RFLX MICR CULT IF [id number] 15:28:00 Test Item Value Reference Range Interpretation Comments UA COLOR (test code = COLU) YELLOW discript YEL/STRAW UA APPEARANCE (test code = CLOUDY discript CLEAR A APPU) UA GLUCOSE DIPSTICK (test NEGATIVE mg/dL NEG code = DGLUU) UA BILIRUBIN DIPSTICK (test NEGATIVE mg/dL NEG code = BILU) UA KETONE DIPSTICK (test code NEGATIVE mg/dL NEG = KETU) UA SPECIFIC GRAVITY (test 1.010 SG 1.005-1.030 code = SGU) UA BLOOD DIPSTICK (test code 2+ mg/DL NEG A = DAMIEN) UA PH DIPSTICK (test code = 6.0 pH UNITS 5.0-7.0 RJ) UA PROTEIN DIPSTICK (test TR mg/dL NEG A code = PROU) UA UROBILINIOGEN DIPSTICK 0.2 mg/dL <2.0 (test code = URO) UA NITRITE DIPSTICK (test POSITIVE SCREEN NEG code = MARY ALICE) UA LEUKOCYTE ESTERASE 2+ Leuk/mcL NEGATIVE A DIPSTICK (test code = LEUU) UA CULTURE NEEDED? (test code Criteria Culture CHK = UACULT) Indication for culture: RiskForSepsis-no oth srcPROTHROMBIN [id number] 14:58:00 Test Item Value Reference Range Interpretation Comments PT PATIENT (test code = PTP) 11.2 SECONDS 9.3-12.9 N INTERNATIONAL NORMAL RATIO 0.99 INR Unit 0.8-1.2 N (test code = INR) THROMBOPLASTIN TIME [id number] 14:58:00 Test Item Value Reference Range Interpretation Comments THROMBOPLASTIN TIME PARTIAL 21.3 SECONDS 26-35 L (test code = PTT) BASIC METABOLIC [id number] 14:46:00 Test Item Value Reference Range Interpretation Comments SODIUM (test code = NA) 138 mmol/L 134-147 N POTASSIUM (test code = K) 5.8 mmol/L 3.4-5.0 H No hemolysis. CHLORIDE (test code = CL) 105 mmol/L 100-108 N CARBON DIOXIDE (test code = 31 mmol/L 21-32 N CO2) ANION GAP (test code = GAP) 2.0 GAP calc 4.0-15.0 L GLUCOSE (test code = GLU) 77 MG/DL 70-110 N BLOOD UREA NITROGEN (test 47 MG/DL 7-18 H code = BUN) GLOMERULAR FILTRATION RATE 23 estGFR >60 L (test code = GFR) CREATININE (test code = 2.2 MG/DL 0.6-1.0 H CREAT) CALCIUM (test code = CA) 9.1 MG/DL 8.5-10.1 N Completed by Nursing: [id number] 14:46:00 Test Item Value Reference Range Interpretation Comments TROPONIN-I (test 0.151 NG/ML 0.000-0.045 HH Negative: < /= 0.045 code = TROPI) Positive: >/= 0.046 Correlation wit h serial results, other cardiac markers, and cl inical findings is nec essary to determine the c linical significance of this result. Quantit ative results using d ifferent methodologies s hould not be compared to one another as nume rical results may nella yby method. Completed by Nursing: NO- CT ANGIO [id number] 14:46:00 Name: SHANTEL LAURENT : 1945 Age/S: 74 / F [address] Unit #: [id number] Loc: [place] [address] Phys: Jc Garcia MD Acct: [id number] Dis Date: Status: PRE ER PHONE #: [phone] Exam Date: 04/07/2020 1430 FAX #: Reason: ams, slurred speech EXAMS: CPT: [id number] CT ANGIO NECK [address] EXAM: - CTANGIO HEAD, - CT ANGIO NECK Location: C3 HISTORY: 74 years old Female with ams, slurred speech TECHNIQUE: Axial slices were obtained through the head and neckduring bolus administration of IV contrast timed to maximally opacify the carotid arteries. Images were reviewed on a 3D workstation using MPR, MIP, and volume rendered techniques. COMPARISON: None FINDINGS: Aortic Arch: Normal three-vessel anatomic configuration of the aortic arch is demonstrated. There are scattered, atherosclerotic calcifications noted about the aortic arch. Origins of the great vessels appear widely patent. ? Extracranial Carotid Arterial System: The RIGHT common carotid artery, internal carotid artery, and external carotid artery are patent and demonstrate no abnormality. The LEFT common carotid artery, internal carotid artery, and external carotid artery are patent and demonstrate no abnormality. ? Extracranial Vertebral Arterial System: The RIGHT vertebral artery demonstrates no abnormality. The LEFT vertebral artery demonstrates no abnormality. The vertebral arteries are codominant. ? Intracranial Anterior Circulation: Mild scattered atherosclerotic calcifications are noted about the cavernous internal carotid arteries. The RIGHT anterior circulation including the right internal carotid artery, middle cerebral artery, and anterior cerebral artery demonstrates no abnormality. The LEFT anterior circulation including the left internal carotid artery, middle cerebral artery,and anterior cerebral artery demonstrates no abnormality. The anterior communicating artery is unremarkable. No posterior communicating arteries are identified. ? Vertebrobasilar Circulation: The basilar artery is unremarkable. PAGE 1 Signed Report (CONTINUED) Name: SHANTEL LAURENT : 1945 Age/S: 74 / F [address] Unit #: [id number] Loc: [place] [address] Phys: Jc Garcia MD Acct: [id number] Dis Date: Status: PRE ER PHONE #: [phone] Exam Date: 04/07/2020 1430FAX #: Reason: ams, slurred speech EXAMS: CPT: [id number] CT ANGIO NECK [address] <Continued> The RIGHT posterior cerebral artery, superior cerebellar artery, and posterior inferior cerebellar artery demonstrate no abnormality. The LEFT posterior cerebral artery, superior cerebellar artery, and posterior inferior cerebellar artery demonstrate no abnormality. ? Nonvascular findings: The visualized dural sinuses and intradural venous system are unremarkable. No evidence of intracranial mass, mass effect,or abnormal enhancement. The skull base, calvaria, orbits, and overlying soft tissues are intact. The visualized soft tissues of the neck demonstrate an enlarged multinodular thyroid goiter with bilateral thyroid nodules including a dominant low density 1.9 cm nodule and associated calcification in the left lobe of the thyroid gland (image 110, series 2). Superiormediastinum are within normal limits. Visualized lung apices demonstrate bilateral homero undglass airspace opacities with intralobular septal thickening suspicious for pulmonaryedema. There is a 3 mm right upper lobe pulmonary nodule seen (image 60, series 2), of doubtful clinical significance. Marked, degenerative changes of spine. No osseous abnormality is identified. IMPRESSION: No evidence of abrupt vessel cut off, vascular occlusion, aneurysm or dissection in the visualized vessels of the head or neck. Incidentally noted multinodular thyroid goiter. Findings may be further assessed with correlation with TFTs and/or nonemergent thyroid ultrasound for further evaluation. Visualized lung apices demonstrate findings of mild pulmonary edema. There is a nonspecific 3 mm right upper lobe pulmonary nodule, of doubtful clinical significance. at 1446 Reported and signed by: Alina Marcum M.D. CC: Jc Miller Technologist:RT Jesse(R)(CT) CTDI: DLP: Trnscb Date/Time: 04/07/2020 (1445) KingKW9 Orig Print D/T: S: 04/07/2020 (6503) PAGE 2 Signed Report- CT ANGIO [id number] 14:46:00 Name: SHANTEL LAURENT : 1945 Age/S: 74 / F [address] [address] Unit #: [id number] Loc: [place] [address] Phys: Jc Garcia MD Acct: [id number] Dis Date: Status: PRE ER PHONE #: [phone] Exam Date: 04/07/2020 1425 FAX #: Reason: ams, slurred speech EXAMS: CPT: [id number] CT ANGIO HEAD [address] EXAM: - CTANGIO HEAD, - CT ANGIO NECK Location: C3 HISTORY: 74 years old Female with ams, slurred speech TECHNIQUE: Axial slices were obtained through the head and neckduring bolus administration of IV contrast timed to maximally opacify the carotid arteries. Images were reviewed on a 3D workstation using MPR, MIP, and volume rendered techniques. COMPARISON: None FINDINGS: Aortic Arch: Normal three-vessel anatomic configuration of the aortic arch is demonstrated. There are scattered, atherosclerotic calcifications noted about the aortic arch. Origins of the great vessels appear widely patent. ? Extracranial Carotid Arterial System: The RIGHT common carotid artery, internal carotid artery, and external carotid artery are patent and demonstrate no abnormality. The LEFT common carotid artery, internal carotid artery, and external carotid artery are patent and demonstrate no abnormality. ? Extracranial Vertebral Arterial System: The RIGHT vertebral artery demonstrates no abnormality. The LEFT vertebral artery demonstrates no abnormality. The vertebral arteries are codominant. ? Intracranial Anterior Circulation: Mild scattered atherosclerotic calcifications are noted about the cavernous internal carotid arteries. The RIGHT anterior circulation including the right internal carotid artery, middle cerebral artery, and anterior cerebral artery demonstrates no abnormality. The LEFT anterior circulation including the left internal carotid artery, middle cerebral artery,and anterior cerebral artery demonstrates no abnormality. The anterior communicating artery is unremarkable. No posterior communicating arteries are identified. ? Vertebrobasilar Circulation: The basilar artery is unremarkable. PAGE 1 Signed Report (CONTINUED) Name: [place] : 1945 Age/S: 74 / F [address] Unit #: [id number] Loc: [place] [address] Phys: Jc Garcia MD Acct: [id number] Dis Date: Status: PRE ER PHONE #: [phone] Exam Date: 04/07/2020 1425FAX #: Reason: ams, slurred speech EXAMS: CPT: [id number] CT ANGIO HEAD [address] <Continued> The RIGHT posterior cerebral artery, superior cerebe llar artery, and posterior inferior cerebellar artery demonstrate no abnormality. The LEFT posterior cerebral artery, superior cerebellar artery, and posterior inferior cerebellar artery demonstrate no abnormality. ? Nonvascular findings: The visualized dural sinuses and intradural venous system are unremarkable. No evidence of intracranial mass, mass effect,or abnormal enhancement. The skull base, calvaria, orbits, and overlying soft tissues are intact. The visualized soft tissues of the neck demonstrate an enlarged multinodular thyroid g oiter with bilateral thyroid nodules including a dominant low density 1.9 cm nodule and associated calcification in the left lobe of the thyroid gland (image 110, series 2). Superiormediastinum are within normal limits. Visualized lung apices demonstrate bilateral groundglass airspace opacities with intralobular septal thickening suspicious for pulmonaryedema. There is a 3 mm right upper lobe pulmonary nodule seen (image 60, series 2), of doubtful clinical significance. Marked, degenerative changes of spine. No osseous abnormality is identified. IMPRESSION: No evidence of abrupt vessel cut off, vascular occlusion, aneurysm or dissection in the visualized vessels of the head or neck. Incidentally noted multinodular thyroid goiter. Findings may be further assessed with correlation with TFTs and/or nonemergent thyroid ultrasound for further evaluation. Visualized lung apices demonstrate findings of mild pulmonary edema. There is a nonspecific 3 mm right upper lobe pulmonary nodule, of doubtful clinical significance. at 1446 Reported and signed by: Alina Marcum M.D. CC: Jc Millre Technologist:Kimmie Curtis RT(R)(CT) CTDI: DLP: Trnscb Date/Time: 04/07/2020 (1446) [id number] Orig Print D/T: S: 04/07/2020 (3426) PAGE 2 Signed Report- XR CHEST 1 [id number] 14:37:00 Name: SHANTEL LAURENT [place] : 1945 Age/S: 74 / F [address] [address] Unit #: [id number] Loc: [place] [address] Phys: Jc Garcia MD Acct: [id number] Dis Date: Status: PRE ER PHONE #: [phone] Exam Date: 04/07/2020 1432 FAX #: Reason: Code Stroke EXAMS: CPT: [id number] XR CHEST 1 V 94745 Fluoro Time: DAP (Gy m2): Air Kerma (mGy): EXAM: - XR CHEST 1 V Location code:C3 HISTORY: Stroke COMPARISON: None available time of interpretation. FINDINGS: Frontal view of the chest is submitted. Heart size within normal limits. Low lung volumes with mild to moderate bronchovascular crowding. The lungs are clear of focal consolidation. No effusion or evidence of pneumothorax.. Not fully included in the gbrzv-ti-jmin, there appears to be cortical irregularity about the left humeral head, which may represent fracture; age indeterminate. An IVC filter is partially seen in the upper abdomen. IMPRESSION 1. Low lung volumes and bronchovascular crowding. Otherwise, No radiographic evidence of acute cardiopulmonary process. 2.Not fully included in the zpolm-ll-seqa, there appears to be cortical irregularity about the left humeral head, which may represent fracture; age indeterminate. Correlate with point tenderness on physical exam. Additional dedicated radiographs of the left shoulder and/or humerus may be obtained if it is clinically warranted. at 1437 Reported and signed by: Alina Marcum M.D. CC: Jc Garcia MD PAGE 1 Signed Report Name: SHANTEL LAURENT [place] : 1945 Age/S: 74 / [id number] [place] Unit #: [id number] Loc: [place] [address] Phys: Jc Garcia MD Acct: [id number] Date: Status: PRE ER PHONE #: [phone] Exam Date: 04/07/2020 1432 FAX #: Reason: Code Stroke EXAMS: CPT: [id number] XR CHEST 1 V 91349 Fluoro Time: DAP (Gy m2): Air Kerma (mGy): <Continued> Technologist: Courtney Roland, RT(R) Trnscb Date/Time: 04/07/2020 (5817) KingKW9 Orig PrintD/T: S: 04/07/2020 (1216) PAGE 2 Signed ReportCBC W/O [id number] 14:23:00 Test Item Value Reference Range Interpretation Comments WHITE BLOOD CELL (test code = WBC) 6.6 K/mm3 3.5-11.0 N RED BLOOD CELL (test code = RBC) 2.85 M/mm3 4.70-6.10 L HEMOGLOBIN (test code = HGB) 9.1 G/DL 10.4-14.9 L HEMATOCRIT (test code = HCT) 29.1 % 31.5-44.1 L MEAN CELL VOLUME (test code = MCV) 102.1 Fl 84.5-98.6 H MEAN CELL HGB (test code = MCH) 31.9 pg 27.0-34.2 N MEAN CELL HGB CONCETRATION (test 31.3 G/DL 31.5-34.0 L code = MCHC) RED CELL DISTRIBUTION WIDTH (test 13.6 SD 11.5-14.5 N code = RDW) PLATELET COUNT (test code = PLT) 122 K/mm3 150-450 L MEAN PLATELET VOLUME (test code = 9.90 fL 7.0-10.5 N MPV) - CT HEAD/BRAIN W/O [id number] 14:23:00 Name: SHANTEL LAURENT [facility]ly [facility] : 1945 Age/S: 74 / F [id number] [address] Unit #: [id number] Loc: [place] [address] Phys: Jc Garcia MD Acct: [id number] Dis Date: Status: PRE ER PHONE #: [phone] Exam Date: 04/07/2020 1413 FAX #: Reason: Code Str shailesh EXAMS: CPT: [id number] CT HEAD/BRAIN W/O CONT 54947 EXAM: - CTHEAD/BRAIN W/O CONT HISTORY: Code Stroke C3 TECHNIQUE: Axial tomograms through the brain were obtained without intravenous contrast. Coronal and sagittal reformatted images are provided. One or more of the following dose reduction techniques were used: Automated exposure control, adjustment of the mA and/or kV according to patient size, and/or utilization of iterative reconstruction technique. COMPARISON: None a vailable time of interpretation. FINDINGS: There is no intracranial hemorrhage, mass, or mass effect. No midline shift or transtentorial herniation. The ventricular system and sulci are prominent; consistent with mild parenchymal atrophy. There are scattered, periventricular deep subcortical white matter changes seen consistent with microangiopathic/chronic small vessel ischemic change. There is no evidence of acute infarction. No extra-axial fluid collection seen. The osseous structures and orbits, show no significant abnormalities. Opacification of the right maxillary sinus. Otherwise, the visualized sinuses are relatively clear. The soft tissues are unremarkable. IMPRESSION: No acute intracranial abnormality with no evidence of intracranial mass effect, hemorrhage or acute infarction. 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 Dr. Marcum called these findings to Jc Garcia MD on 04/07/2020 2:20 PM PAGE 1 Signed Report (CONTINUED) Name: SHANTEL LAURENT [place] : 1945 Age/S: 74 / F [id number] [address] Unit #: [id number] Loc: [place] [address] Phys: Jc Garcia MD Acct: [id number] Dis Date: Status: PRE ER PHONE #: [phone] Exam Date: 04/07/2020 1413 FAX #: Reason: Code Stroke EXAMS: CPT: [id number] CT HEAD/BRAIN W/O CONT 74085 <Continued> at 1423 Reported and signed by: Alina Marcum M.D. CC: Jc Garcia MD Technologist:RT Jesse(R)(CT) CTDI: DLP: Trnscb Date/Time: 04/07/2020 (1423) [id number] Orig Print D/T: S: 04/07/2020 (6005) PAGE 2 Signed ReportVALPROIC ACID (DEPAKENE)2019-08-31 07:37:00 Test Item Value Reference Range Interpretation Comments VALPROIC ACID (DEPAKENE) (test 45.7 ug/mL 50.0-100.0 L code = VALP) HGBA1C - GLYCOSYLATED [id number] 14:38:00 Test Item Value Reference Range Interpretation Comments GLYCOSYLATED HEMOGLOBIN (HA1C) (test 4.7 % 4.0-6.0 N code = GLYHGB) URINALYSIS [id number] 13:31:00 Test Item Value Reference Range Interpretation [...] = BACU) 3+ /HPF NEGATIVE A URINALYSIS [id number] 13:20:00 Test Item Value Reference Range Interpretation [...] code = BACU) /HPF NEGATIVE BASIC METABOLIC [id number] 12:49:00 Test Item Value Reference Range Interpretation [...] 9.2 mg/dL 8.6-10.4 N CA) BASIC METABOLIC [id number] 12:43:00 Test Item Value Reference Range Interpretation [...] code = mg/dL 8.6-10.4 CA) CBC W/AUTO [id number] 12:02:00 Test Item Value Reference Range Interpretation [...] Risk LD L Cholesterol<1 00mg/dL: Desirable LDL-C [id number] 0-159mg/ dL: Borderline High Risk LDL-C xdktwowpjuqsy20 0-189mg/ dL: High risk L DL-C concentration H DL-LDL Cholesterol is affected by a number of factors suchas smoking, age and sex.~~~~~~~~~~~ ~~~~~~~~ ~~~~~~~~~~~~~~~ ~~~~~~~~ ~~~~~~~~~~~~~~~ ~~~ THYROID STIMULATING [id number] 12:09:00 Test Item Value Reference Range Interpretation Comments THYROID STIMULATING HORMONE (test 8.41 mIU/mL 0.38-5.60 H code = TSH)
--- OUTSIDE RECORDS SUMMARY | 2020-05-16 07:22 | XMS REPORT ---
:1945 Author Organization eClinicalWorks Care Team Providers Name Role Phone Alegre, Na Provider Role Unavailable Allergies No Known Allergies Problems Problem Type Condition Code Onset Dates Condition Statu s Problem Dementia without behavioral F03.90 Active disturbance, unspecified dementia type Problem Swelling R60.9 Active Problem Primary osteoarthritis of both M17.0 Active knees Problem Dry eye syndrome of both eyes H04.123 Active Problem Acquired hypothyroidism E03.9 Acti ve Problem CKD (chronic kidney disease), stage N18.3 Active III Problem Unsteady gait R26.81 Active Problem Cloudy urine R82.90 Active Problem Lumbar disc herniation M51.26 Activ e Problem Pure hyperglyceridemia E78.1 Activ e Problem Overactive bladder N32.81 Active Problem Other chronic pain G89.29 Active Problem Hyperthyroidism E05.90 Active Problem HTN (hypertension) I10 Active Problem Bipolar disorder F31.9 Active Problem Degenerative disc disease, lumbar M51.36 Active Problem COPD (chronic obstructive pulmonary J44.9 Active disease) Problem Allergic rhinitis J30.9 Active Problem Depression F32.9 Active Problem Mixed hyperlipidemia E78.2 Active Problem Anxiety F41.9 Active Problem Migraines G43.909 Active Medications Medication Code Code Instructions Start End Status Dosage System Date Date Lisinopril [facility] 78628485929 2.5 MG Orally Active 1 t ablet twice a day Carvedilol [facility] 51554979299 6.25 MG Orally Active 1 tablet Twice a day Zofran ND 73736139293 4 MG Orally Jun 14, Active 1 tablet every 12 hrs 2018 prn nausea Levothyroxine ND 23545711857 25 MCG Orally Oct 24, Active 1 tablet in Sodium Once a day 2019 the morning on an empty stomach Simethicone ND 47768715022 80 MG Orally Active 1 t ablet Four times a after meals day and at bedtime as needed Divalproex ND 36244090592 250 MG Orally Active 3 t ablets Sodium Twice a day Furosemide [facility] 87175832322 40 MG Active TAKE 1 TA BLET BY MOUTH EVERY DAY Duloxetine HCl ND 03131445368 60 MG Orally Active 1 capsule Once a day Comp Air ND 42803972546 - every 6 Jun 16, Active as direc james Compressor hours as needed 2018 Nebulizer Benadryl Allergy ND 90205631153 25 MG Orally Active 1 tablet as every 8 hrs needed Santyl ND 30357674086 250 UNIT/GM January Active 1 applic ation Externally 06, 04, nickel twice a day 2019 2019 thickness Flonase ND 85322134920 50 MCG/DOSE December Active 1 spray in Nasally Twice a 06, each nos tril day 2018 Metoprolol ND 55551755894 25 MG Active TAKE 1 TA BLET Succinate ER BY MOUTH TWICE DAILY AT 6AM AND 6PM Topiramate ND 45709766387 100 MG Active TAKE 1 TA BLET BY MOUTH TWICE DAILY Ipratropium-Albu ND 39546865547 0.5-2.5 (3) Active 3 ml terol MG/3ML Inhalation every 6 hrs Imitrex ND 13984513405 50 MG Orally Sept Active 1 table t as Once a day december 01, needed repeat dose 1 2018 dose in 2 hours ( max 2 doses in 24 hours) Calcium NDC 0 Oral Active 1 tab Carbamazepine ND 55194116333 200 MG Orally Active 1 tablet once a day BuPROPion HCl ER ND 91385539820 300 MG Orally Activ e 1 tablet in (XL) Once a day the morning Gabapentin ND 95532035505 800 MG Orally Active 1 t ablet three times a day Cipro ND 70386862783 500 MG Orally Mar Active 1 tabl et every 12 hrs , , 2019 2019 Levothyroxine ND 12977620213 200 MCG Orally Active 1 tablet on Sodium Once a day an empty stomach in the morning Atorvastatin ND 78856023538 20 MG Orally Active 1 tablet Calcium Once a day Diclofenac ND 49152019001 75 MG Orally Active 1 ta blet with Sodium Twice a day food or milk Donepezil HCl ND 73518100002 10 MG Oral Active 1 t ablet at twice a day bedtime Protonix ND 37834770577 40 MG Orally Active 1 tabl et Once a day Ondansetron HCl ND 85902065232 4 MG Orally Active 1 tablet every 6 hrs Oxybutynin [facility] 06937159543 5 MG Oral twice Active 1 tablet Chloride ER a day Folic Acid-Vit [facility] [address] 0.8-10-0.115 MG Activ e 1 tablet B6-Vit B12 Orally Once a day Memantine HCl [facility] 55174927757 10 MG Orally Active 1 tablet Twice a day Trazodone HCl [facility] 51340593951 50 MG Oral Active not defined Claritin [facility] 07235749444 10 MG Orally Melissa Active 1 tabl et Once a day 2018 Imodium A-D [facility] 45265914984 2 MG Orally Active 1 ta blet as Four times a needed day Melatonin [facility] 26205731016 3 MG Orally Active 1 tabl et at Once a day bedtime as needed with food Vitamin D [facility] 40205130389 1000 UNIT Active 1 tablet Orally Once a day Zantac [facility] 77892560929 150 MG Orally Active 1 tabl et at Once a day bedtime Results No Known Results Summary Purpose eClinicalWorks Submission
--- OUTSIDE RECORDS SUMMARY | 2020-05-16 07:22 | XMS REPORT ---
[...] F32.9 Active Problem Mixed hyperlipidemia E78.2 Active Assessment Cloudy urine R82.90 Active Problem Anxiety F41.9 Active Problem Migraines G43.909 Active Medications No Known Medications Results No Known Results Summary Purpose eClinicalWorks Submission
--- OUTSIDE RECORDS SUMMARY | 2020-05-16 07:22 | XMS REPORT ---
:1945 Author Organization [facility] Address [address] [place] [place] [address] Care Team Providers Name Role Phone Nina Alegre Unavailable [phone] PROBLEMS Type Condition ICD9-CM [id number] Onset Condition SNOMED Code Notes Code Code Dates Status Problem Dementia without F03.90 Active 50223191 behavioral disturbance, unspecified dementia type Problem Unsteady gait R26.81 Active 788095435 Problem Primary M17.0 Active 771533802 osteoarthritis of both knees Problem Bipolar disorder F31.9 Active 85063685 Problem Acquired E03.9 Active 355140541 hypothyroidism Problem Hyperthyroidism E05.90 Active 14370737 Problem Degenerative disc M51.36 Active 84509169 disease, lumbar Problem CKD (chronic kidney N18.3 Active 762432899 disease), stage III Problem Overactive bladder N32.81 Active 599943700 Problem Allergic rhinitis J30.9 Active 18317359 Problem COPD (chronic J44.9 Active 68488577 obstructive pulmonary disease) Problem Migraines G43.909 Active 34677727 Problem Mixed hyperlipidemia E78.2 Active 180222616 Problem Pure E78.1 Active 423279387 hyperglyceridemia Problem Swelling R60.9 Active 052611531 Problem Other chronic pain G89.29 Active 63464372 Problem Lumbar disc M51.26 Active 303120975 herniation Problem Dry eye syndrome of H04.123 Active 11487003 both eyes Problem Cloudy urine R82.90 Active 3491935 Problem Jerking R25.3 Active 641406358 Problem Wheelchair dependent Z99.3 Active 232462352 Problem Depression F32.9 Active 23525062 Problem History of recurrent Z87.440 Active 294023547 UTI (urinary tract infection) Problem HTN (hypertension) I10 Active 89061924 Problem Anxiety F41.9 Active 77347576 Problem Bipolar disorder, F31.4 Active 77216622 current episode depressed, severe, without psychotic features Problem Decreased ROM of M25.612 Active 946423222 left shoulder Problem Acute pain of left M25.512 Active 70634069 shoulder Problem Abnormality of gait R26.9 Active 80874756 ALLERGIES No Known Allergies ENCOUNTERS from 1945 to 2020-05-13 Encounter Location Date Provider Diagnosis [facility] [address], [place] [address] IMMUNIZATIONS Vaccine Route Administration Date Status Phenergan [...] tab Oral for 14 days Activ e Carbamazepine 200 MG 1 tablet Orally once a Active day Diclofenac Sodium 75 MG 1 tablet with food or Active milk Orally Twice a day for 30 day(s) BuPROPion HCl ER (XL) 300 1 tablet in the Active MG morning Orally Once a day for 30 day(s) Cipro 500 MG 1 tablet Orally every Mar, Active 12 hrs for 7 days Gabapentin 800 MG 1 tablet Orally three A ctive times a day Folic Acid-Vit B6-Vit B12 1 tablet Orally Once a Active 0.8-10-0.115 MG day for 30 day(s) Oxybutynin Chloride ER 5 1 tablet Oral twice a Active MG day Furosemide 40 MG TAKE 1 TABLET BY MOUTH A ctive EVERY DAY for 60 Ipratropium-Albuterol 3 ml Inhalation every Active 0.5-2.5 (3) MG/3ML 6 hrs Ondansetron HCl 4 MG 1 tablet Orally every Active 6 hrs Metoprolol Succinate ER 25 TAKE 1 TABLET BY MOUTH Active MG TWICE DAILY AT 6AM AND 6PM for 30 Donepezil HCl 10 MG 1 tablet at bedtime A ctive Oral twice a day Divalproex Sodium 250 MG 3 tablets Orally Twice Active a day for 30 day(s) Vitamin D 1000 UNIT 1 tablet Orally Once a Active day for 30 day(s) Nitrofurantoin Monohyd as directed Orally May, May, Active Macro 100 MG twice daily for 10 days Duloxetine HCl 60 MG 1 capsule Orally Once Active a day Topiramate 100 MG TAKE 1 TABLET BY MOUTH Active TWICE DAILY for 30 Trazodone HCl 50 MG Oral for 30 Active Calcitriol 0.25 MCG TAKE 2 CAPSULES BY Ac tive MOUTH EVERY DAY for 15 Protonix 40 MG 1 tablet Orally Once a Act luis miguel day for 30 day(s) Levothyroxine Sodium 200 1 tablet on an empty Active MCG stomach in the morning Orally Once a day Diclofenac Sodium 1 % 2 gram application to Active affected area Transdermal Three times a day for 30 day(s) Flonase 50 MCG/DOSE 1 spray in each Dec, Not-T aking nostril Nasally Twice a day for 30 day(s) Simethicone 80 MG 1 tablet after meals No t-Taking and at bedtime as needed Orally Four times a day Comp Air Compressor as directed every 6 Jun, A ctive Nebulizer - hours as needed for 90 days Benadryl Allergy 25 MG 1 tablet as needed Active Orally every 8 hrs Imodium A-D 2 MG 1 tablet as needed Not-T aking Orally Four times a day Zantac 150 MG 1 tablet at bedtime Not-Mann ing Orally Once a day for 30 day(s) Memantine HCl 10 MG 1 tablet Orally Twice Active a day Zofran 4 MG 1 tablet Orally every 14 Jun, 2019 Active 12 hrs prn nausea for 30 days Melatonin 3 MG 1 tablet at bedtime as Act luis miguel needed with food Orally Once a day for 30 day(s) Levothyroxine Sodium 25 1 tablet in the Apr, A ctive MCG morning on an empty stomach Orally Once a day Carvedilol 6.25 MG 1 tablet Orally Twice Active a day Atorvastatin Calcium 20 MG 1 tablet Orally Once a Active day Imitrex 50 MG 1 tablet as needed Mar, Active Orally Once a day may repeat dose 1 dose in 2 hours ( max 2 doses in 24 hours) Lisinopril 2.5 MG 1 tablet Orally twice A ctive a day Claritin 10 MG 1 tablet Orally Once a Dec, Act luis miguel day for 30 day(s) PROCEDURES No Information RESULTS No Results REASON FOR VISIT uti* MEDICAL (GENERAL) HISTORY Type Description Date Medical History htn Medical History Bipolar disorder Medical History Allergic rhinitis Medical History Depression Medical History HTN (hypertension) Medical History Swelling Medical History Anxiety Medical History Migraines Medical History COPD (chronic obstructive pulmonary dise ase) Medical History Hyperthyroidism Surgical History sb. TKA-metal 2016 Hospitalization History UTI_ [place] [address] Goals Section No Information Health Concerns No Information MEDICAL EQUIPMENT No Information MENTAL STATUS No Information FUNCTIONAL STATUS No Information ASSESSMENTS No Information PLAN OF TREATMENT Medication Medication Name Sig Start Date Stop Date Cipro 500 MG 1 tablet Orally every 12 hrs Mar, for 7 days Diclofenac Sodium 1 % 2 gram application to affected area Transdermal Three times a day for 30 day(s) Nitrofurantoin Monohyd Macro as directed Orally twice May,May, 100 MG daily for 10 days Next Appt Details Provider Name:Nina Alegre, 2020-07-08 01:2 0:00 PM, [address], [place], [address], Insurance Providers Payer Name Payer Address Payer Insured Patient Coverage Cover age Phone Name Relationship to Start Date End Date Insured MEDICARE Attn Part B [id number] Yanelis Mason self [employer] Claims [address] [place] [address] [employer] [address] [phone] Yanelis Mason self and Blue [address] [address]
--- NOTE | 2020-05-16 08:25 | RAD REPORT ---
EXAM DESCRIPTION: RAD - Chest Single View - 05/16/2020 8:14 am CLINICAL HISTORY: weakness Chest pain. COMPARISON: Chest Single View dated 02/20/2020; Chest Single View dated 10/18/2019; Chest Single View dated 09/21/2019; Chest Single View dated 09/13/2019 FINDINGS: Portable technique limits examination quality. The lungs are grossly clear. The heart is normal in size. No displaced fractures.Old traumatic change s proximal left humerus. IMPRESSION: No acute intrathoracic process suspected.
[2020-05-16 08:56] LABS: Basophils % 0.3 % (0-1.3); Hematocrit 30.5 % (36.0-45.0); Lymphocytes % 13.7 % (15.3-44.8); MPV 8.9 fL (7.6-11.3); RBC Red Blood Cell Count 3.22 M/uL (3.86-4.86)
[2020-05-16 08:57] LABS: Protime INR 0.97
[2020-05-16 09:01] LABS: ALT/SGPT 9 U/L (12-78); AST/SGOT 11 U/L (15-37); Albumin 3.1 g/dL (3.4-5.0); Alkaline Phosphatase 95 U/L (45-117); BUN Blood Urea Nitrogen 41 mg/dL (7-18); Bicarbonate 33 mmol/L (21-32); Bilirubin Direct < 0.1 mg/dL (0-0.2); Bilirubin Total 0.3 mg/dL (0.2-1.0); Glucose Level 95 mg/dL (74-106); Magnesium 2.1 mg/dL (1.8-2.4); NT PRO-BNP 1388 pg/mL (<125); Potassium 4.5 mmol/L (3.5-5.1); Protein, Total 6.8 g/dL (6.4-8.2); Sodium Level 140 mmol/L (136-145); Troponin (Emerg Dept Use Only) 0.13 ng/mL (0.0-0.045)
[2020-05-16 09:53] LABS: Urine Blood 1+ (NEG); Urine Glucose NEGATIVE (NEG); Urine Protein NEGATIVE (NEG); Urine Specific Gravity 1.015 (1.005-1.030)
--- NOTE | 2020-05-16 11:24 | ER ---
Nurse's Notes [facility] Name: Macrina Mason Age: 74 yrs Sex: Female : 1945 Arrival Date: 05/16/2020 Time: 07:23 Bed 8 Private MD: Diagnosis: Weakness;Urinary tract infection, site not specified Presentation: 05/16 07:26 Chief complaint: EMS states: pt has been on Macrobid for a UTI, this morning got up to iw use the bathroom and felt weak, EMS reports pt fell beside her bed, was found sitting beside her bed, pt denies that she fell states that she sat herself down because she was weak, pt also takes pain medication that makes her drowsy and weak, pt denies any injury or pain, pt states she is here because she has a UTI, sees Dr. Alegre. Coronavirus screen: At this time, the client does not indicate any symptoms associated with coronavirus-19. Ebola Screen: Patient negative for fever greater than or equal to 101.5 degrees Fahrenheit, and additional compatible Ebola Virus Disease symptoms Patient denies exposure to infectious person. Patient denies travel to an Ebola-affected area in the 21 days before illness onset. No symptoms or risks identified at this time. Initial Sepsis Screen: Does the patient meet any 2 criteria? No. Patient's initial sepsis screen is negative. Does the patient have a suspected source of infection? No. Patient's initial sepsis screen is negative. Risk Assessment: Do you want to hurt yourself or someone else? Patient reports no desire to harm self or others. Onset of symptoms was May 16, 2020. Care prior to arrival: Glucose check: 124. 07:26 Method Of Arrival: EMS: [facility] 07:26 Acuity: VEENS 3 iw Historical: - Allergies: 08:59 NKA; iw - Home Meds: 07:31 aspirin 325 mg Oral tab 1 tab once daily [Active]; furosemide 40 mg Oral tab 1 tab once iw daily [Active]; gabapentin 800 mg Oral tab 1 tab 3 times per day [Active]; hydrocodone-acetaminophen 5-325 mg Oral tab 1 tab every 6 hours [Active]; levothyroxine 25 mcg tab 1 tab once daily [Active]; Metoprolol Tartrate Oral [Active]; olanzapine 2.5 mg Oral tab 1 tabs twice a day [Active]; propranolol 20 mg Oral tab 1 tab 2 times per day [Active]; - PMHx: 07:31 allergies; Back pain; Bipolar disorder; COPD; DVT; Schizophrenia; UTI; ADD/ADHD; iw - Immunization history:: Adult Immunizations up to date. - Social history:: Smoking status: Patient denies any tobacco usage or history of. Screenin:01 Abuse screen: Denies threats or abuse. Denies injuries from another. Nutritional iw screening: No deficits noted. Tuberculosis screening: No symptoms or risk factors identified. 12:25 Fall Risk IV access (20 points). iw Assessment: 07:45 General: Appears in no apparent distress. Behavior is calm. Pain: Denies pain. Neuro: iw Level of Consciousness is awake, obeys commands, Oriented to person, place, time, situation, Moves all extremities. Cardiovascular: Patient's skin is warm and dry. Respiratory: Respiratory effort is even, unlabored, Respiratory pattern is regular, symmetrical. Derm: Skin is fragile, is thin, Skin is dry, Skin is pale. Musculoskeletal: Range of motion: intact in all extremities. 10:59 Reassessment: Patient appears in no apparent distress at this time. pt was able to get iw herself up out of bed with walker, pt ambulated out of room with walker, steady gait, placed herself back into bed. 11:51 Reassessment: Patient appears in no apparent distress at this time. Patient and/or iw family updated on plan of care and expected duration. Pain level reassessed. Patient is alert, oriented x 3, equal unlabored respirations, skin warm/dry/pink. spoke with pt son Chele Mason, will be here to pick her up. Vital Signs: 07:26 BP 121 / 64; Pulse 60; Resp 16 S; Temp 97.9(O); Pulse Ox 96% on R/A; Weight 99.79 kg; iw Height 5 ft. 5 in. (165.10 cm); Pain 0/10; 10:00 BP 125 / 64; Pulse 59; Resp 16 S; Pulse Ox 96% on R/A; Pain 0/10; iw 11:51 BP 114 / 52; Pulse 62; Resp 16; Pulse Ox 98% on R/A; iw 07:26 Body Mass Index 36.61 (99.79 kg, 165.10 cm) iw ED Course: 07:23 Patient arrived in ED. iw 07:29 Triage completed. iw 07:29 Arm band placed on. iw 07:49 Kevyn Carrillo MD is Attending Physician. kdr 08:14 XRAY Chest (1 view) In Process Unspecified. EDMS 08:16 Initial lab(s) drawn, by me, sent to lab. Inserted saline lock: 20 gauge in right dh3 antecubital area, using aseptic technique. Blood collected. 08:20 EKG done, by ED staff, reviewed by Kevyn Carrillo MD. 3 08:52 Terrie Frye, RN is Primary Nurse. iw 09:40 Straight cath inserted, using sterile technique, Specimen obtained. 15Fr Returned 3 cloudy urine. Patient tolerated well. 12:25 Patient has correct armband on for positive identification. iw 12:25 No provider procedures requiring assistance completed. IV discontinued, intact, iw bleeding controlled, No redness/swelling at site. Pressure dressing applied. Administered Medications: 11:50 Drug: Rocephin 1 grams Route: IV; Rate: calculated rate; Site: right antecubital; iw 12:14 Not Given (not available in pharmacy ): cefPODOXime 100 mg PO once iw Outcome: 11:23 Discharge ordered by . kdr 12:25 Discharged to home via wheelchair, with friend. iw 12:25 Condition: good 12:25 Discharge instructions given to patient, family, Instructed on discharge instructions, follow up and referral plans. medication usage, Demonstrated understanding of instructions, follow-up care, medications, Prescriptions given X 2. 12:26 Patient left the ED. dm5 Addendum: 05/19/2020 11:20 Addendum: Culture Results: Positive urine culture. Phone call Attempt #1 left voice a a5 mail. Signatures: Dispatcher [employer] EDYoon Garrido RN RN Kevyn Carpio MD MD [facility] Terrie Frye RN RN Rachel Vann RN RN [facility] Irlanda Castano [facility]
--- NOTE | 2020-05-16 11:24 | EDPHYS ---
Physician Documentation [facility] Name: Macrina Mason Age: 74 yrs Sex: Female : 1945 Arrival Date: 05/16/2020 Time: 07:23 Bed 8 Private MD: ED Physician Kevyn Carrillo HPI: 05/16 07:55 This 74 yrs old Female presents to ER via EMS with complaints of General kdr Weakness. 07:55 The patient was found at home sitting next to the bed on the floor. She states that she kdr was up to go to the bathroom and became nauseated and weak. She states that she sat herself on the floor and did not fall or hit her head - no LOC. She has no new pain or c/o other than chronic arthritis pain which she states is unchanged. Onset: The symptoms/episode began/occurred suddenly, just prior to arrival, this morning. Severity of symptoms: At their worst the symptoms were moderate in the emergency department the symptoms have improved mildly. The patient has experienced similar episodes in the past, a few times. The patient has been recently seen by a physician: Is being treated for a UTI. Historical: - Allergies: 08:59 NKA; iw - Home Meds: 07:31 aspirin 325 mg Oral tab 1 tab once daily [Active]; furosemide 40 mg Oral tab 1 tab once iw daily [Active]; gabapentin 800 mg Oral tab 1 tab 3 times per day [Active]; hydrocodone-acetaminophen 5-325 mg Oral tab 1 tab every 6 hours [Active]; levothyroxine 25 mcg tab 1 tab once daily [Active]; Metoprolol Tartrate Oral [Active]; olanzapine 2.5 mg Oral tab 1 tabs twice a day [Active]; propranolol 20 mg Oral tab 1 tab 2 times per day [Active]; - PMHx: 07:31 allergies; Back pain; Bipolar disorder; COPD; DVT; Schizophrenia; UTI; ADD/ADHD; iw - Immunization history:: Adult Immunizations up to date. - Social history:: Smoking status: Patient denies any tobacco usage or history of. ROS: 07:55 Constitutional: Negative for fever, chills, and weight loss, Eyes: Negative for injury, kdr pain, redness, and discharge, Neck: Negative for injury, pain, and swelling, Cardiovascular: Negative for chest pain, palpitations, and edema, Respiratory: Negative for shortness of breath, cough, wheezing, and pleuritic chest pain, Abdomen/GI: Negative for abdominal pain, nausea, vomiting, diarrhea, and constipation, Back: Negative for injury and pain, : Negative for injury, bleeding, discharge, and swelling, MS/Extremity: Negative for injury and deformity, Skin: Negative for injury, rash, and discoloration, Psych: Negative for depression, anxiety, suicide ideation, homicidal ideation, and hallucinations, Allergy/Immunology: Negative for hives, rash, and allergies, Endocrine: Negative for neck swelling, polydipsia, polyuria, polyphagia, and marked weight changes, Hematologic/Lymphatic: Negative for swollen nodes, abnormal bleeding, and unusual bruising. 07:55 Neuro: Positive for dizziness, weakness, Negative for altered mental status, headache, hearing loss, loss of consciousness, numbness, seizure activity, speech changes, syncope, near syncope, tingling, tinnitus, tremor, visual changes. Exam: 07:55 Constitutional: This is a well developed, well nourished patient who is awake, alert, kdr and in no acute distress. Head/Face: Normocephalic, atraumatic. Eyes: Pupils equal round and reactive to light, extra-ocular motions intact. Lids and lashes normal. Conjunctiva and sclera are non-icteric and not injected. Cornea within normal limits. Periorbital areas with no swelling, redness, or edema. Neck: Trachea midline, no thyromegaly or masses palpated, and no cervical lymphadenopathy. Supple, full range of motion without nuchal rigidity, or vertebral point tenderness. No Meningismus. Chest/axilla: Normal chest wall appearance and motion. Nontender with no deformity. No lesions are appreciated. Cardiovascular: Regular rate and rhythm with a normal S1 and S2. No gallops, murmurs, or rubs. Normal PMI, no JVD. No pulse deficits. Respiratory: Lungs have equal breath sounds bilaterally, clear to auscultation and percussion. No rales, rhonchi or wheezes noted. No increased work of breathing, no retractions or nasal flaring. Abdomen/GI: Soft, non-tender, with normal bowel sounds. No distension or tympany. No guarding or rebound. No evidence of tenderness throughout. Back: No spinal tenderness. No costovertebral tenderness. Full range of motion. Skin: Warm, dry with normal turgor. Normal color with no rashes, no lesions, and no evidence of cellulitis. MS/ Extremity: Pulses equal, no cyanosis. Neurovascular intact. Full, normal range of motion. Psych: Awake, alert, with orientation to person, place and time. Behavior, mood, and affect are within normal limits. 07:55 Neuro: Orientation: to person, place. 18:42 ECG was reviewed by the Attending Physician. kdr Vital Signs: 07:26 BP 121 / 64; Pulse 60; Resp 16 S; Temp 97.9(O); Pulse Ox 96% on R/A; Weight 99.79 kg; iw Height 5 ft. 5 in. (165.10 cm); Pain 0/10; 10:00 BP 125 / 64; Pulse 59; Resp 16 S; Pulse Ox 96% on R/A; Pain 0/10; iw 11:51 BP 114 / 52; Pulse 62; Resp 16; Pulse Ox 98% on R/A; iw 07:26 Body Mass Index 36.61 (99.79 kg, 165.10 cm) iw MDM: 07:55 Data reviewed: vital signs, nurses notes, lab test result(s), radiologic studies. kdr Counseling: I had a detailed discussion with the patient and/or guardian regarding: the historical points, exam findings, and any diagnostic results supporting the discharge/admit diagnosis, lab results, radiology results, the need for outpatient follow up. 11:23 Patient medically screened. [facility] 05/16 07:55 Order name: Basic Metabolic Panel; Complete Time: 09:40 [facility] 05/16 07:55 Order name: CBC with Diff; Complete Time: 09:40 [facility] 05/16 07:55 Order name: LFT's; Complete Time: 09:40 [facility] 05/16 07:55 Order name: Magnesium; Complete Time: 09:40 [facility] 05/16 07:55 Order name: NT PRO-BNP; Complete Time: 09:40 [facility] 05/16 07:55 Order name: PT-INR; Complete Time: 09:40 [facility] 05/16 07:55 Order name: Troponin (emerg Dept Use Only); Complete Time: 09:40 [facility] 05/16 07:55 Order name: XRAY Chest (1 view); Complete Time: 09:40 [facility] 05/16 07:55 Order name: EKG; Complete Time: 07:56 kdr 05/16 07:55 Order name: Cardiac monitoring; Complete Time: 08:27 kdr 05/16 09:50 Order name: Urine Culture sg 05/16 09:50 Order name: Urine Dipstick--Ancillary (enter results); Complete Time: 11:21 bd 05/16 07:55 Order name: EKG - Nurse/Tech; Complete Time: 08:27 kdr 05/16 07:55 Order name: IV Saline Lock; Complete Time: 08:27 kdr 05/16 07:55 Order name: Labs collected and sent; Complete Time: 08:27 kdr 05/16 07:55 Order name: O2 Per Protocol; Complete Time: 08:27 kdr 05/16 07:55 Order name: O2 Sat Monitoring; Complete Time: 08:27 kdr 05/16 08:03 Order name: Urine Dipstick-Ancillary (obtain specimen): Cath UA; Complete Time: 09:52 kdr EC:42 Rate is 55 beats/min. Rhythm is regular, Sinus bradycardia with No ectopy. QRS [place] is kdr Normal. Left axis deviation noted. [place] interval is normal. QRS interval is normal. QT interval is normal. Clinical impression: NSR w/ Non-specific ST/T Changes. Administered Medications: 11:50 Drug: Rocephin 1 grams Route: IV; Rate: calculated rate; Site: right antecubital; iw 12:14 Not Given (not available in pharmacy ): cefPODOXime 100 mg PO once iw Disposition: 05/16/20 11:23 Discharged to Home. Impression: Weakness, Urinary tract infection, site not specified. - Condition is Stable. - Discharge Instructions: Urinary Tract Infection, Adult, [id number], Weakness, [id number]. - Prescriptions for cefpodoxime 100 mg Oral Tablet - take 1 tablet by ORAL route every 12 hours for 10 days take with food; 20 tablet. - Medication Reconciliation Form, Thank You Letter, Antibiotic Education form. - Follow up: Private Physician; When: 2 - 3 days; Reason: If symptoms return, Further diagnostic work-up, Recheck today's complaints, Continuance of care, Re-evaluation by your physician. - Problem is an ongoing problem. - Symptoms have improved. Signatures: Dispatcher [employer] Yono Benitez, RN RN [id number] Kevyn Carrillo MD MD kdr Williams, Irene, RN RN iw Corrections: (The following items were deleted from the chart) 12:26 11:23 05/16/2020 11:23 Discharged to Home. Impression: Weakness; Urinary tract dm5 infection, site not specified. Condition is Stable. Forms are Medication Reconciliation Form, Thank You Letter, Antibiotic Education, Prescription Opioid Use. Follow up: Private Physician; When: 2 - 3 days; Reason: If symptoms return, Further diagnostic work-up, Recheck today's complaints, Continuance of care, Re-evaluation by your physician. Problem is an ongoing problem. Symptoms have improved. kdr
[2020-05-16] MEDS ORDERED: CEFTRIAXONE/SWI 1gm 1 GM/10 ML SYR ONE (11:49)
[2020-05-16 13:52] VITALS: TEMP 97.9
[2020-05-16 13:58] VITALS: BP 114/52; O2SAT 98
--- NOTE | 2020-05-19 07:52 | EKG ---
Test Date: 2020-05-16 Test Time: 08:20:18 Chief Clerk: DARYL MEASUREMENT RESULTS: Intervals: Rate: 55 MN: QRSD: 114 QT: 476 QTc: 455 [place]: P: MN: QRS: -34 T: -58 INTERPRETIVE STATEMENTS: Junctional rhythm Left axis deviation Cannot rule out Anterior infarct, age undetermined Abnormal ECG Compared to ECG 02/20/2020 17:25:41 Junctional rhythm now present Sinus bradycardia no longer present Myocardial infarct finding still present Electronically Signed On 05-19-20 07:42:18 HEAD TRIMMER by Cuba Sotelo
== END 2020-05-16 12:26 | disposition home or self-care (01) ==
LOC: ER 07:16
DX: N39.0 Urinary tract infection, site not specified (principal); J44.9 Chronic obstructive pulmonary disease, unspecified; F31.9 Bipolar disorder, unspecified; Z79.82 Long term (current) use of aspirin
CPT/HCPCS: 93005; 87088; 85025; 87086; 80048; 36415; 83735; 85610; 80076; 87077; 87186; 81003; 84484; 83880; 71045; 51702; 96374; 99284; J0696

== ENCOUNTER 2020-05-28 10:39 | Emergency (ER) | payer OTHER, BC ==
--- OUTSIDE RECORDS SUMMARY | 2020-05-28 11:30 | XMS REPORT | Continuity of Care Document ---
:1945 Author Organization [facility] t Address [address] [place] [address] Care Team Providers Name Role Phone Doctor Unassigned, Name Attending Clinician Unavailable Payers Payer Name Policy Type Policy Number Effective Date Expiration Date S ource Problems This patient has no known problems. Allergies, Adverse Reactions, Alerts Allergy Allergy Status Severity Reaction(s) Onset Inactive Treating Comm ents Source Name Type Date Date Clinician No Known DA Active U 2019-07 [facility]-04 Clear s 00:00: [place] 00 [facility] No Known DA Active U 2019-0 [facility] Allergie 2-20 Fletcher s 00:00: [facility] [place] 00 are [place] Medications Ordered Filled Start Stop Current Ordering Indication Dosage Frequency Signature Comments Components Source Medication Medication Date Date Medication? Clinician (SIG) Name Name Cipro Cipro 2019- 2020- Yes [facility] [address] [facility] 00 :00 [facility] Santyl Santyl 0 2020- No [facility] 1 [facility] applicatio [facility] - 00:[facility]: 00:00 n nickel Memoria 00 :00 thickness l [facility] Zofran Zofran 2018-07 Yes Na [facility] [address] [facility]: [facility]oria 00 l [facility] Comp Air Comp Air 2018-07 Yes [facility] as [facility] Compressor Compressor 2-13 directed [facility] - Nebulizer Nebulizer 00:00: Mem oria 00 l [facility] Levothyroxi Levothyroxi 2018-07 Yes [place] [address] [facility] ne Sodium ne Sodium 0-24 in the [place] - 00:00: morning on Memoria 00 an empty l stomach [facility] Imitrex Imitrex Yes [place] [address] [facility] 9-30 as needed [facility] - 00:[facility]: Memoria 00 l [facility] Flonase Flonase Yes Na [place] [address] [facility] 6[facility]06 each [facility] - 00:00: nostril Memoria 00 l [facility] Claritin Claritin Yes [place] [address] [facility] 6[facility]06 [facility] - 00:[facility]: Memoria 00 l [facility] Divalproex Divalproex Yes Na [place]re [address] [facility] [address] Sodium Sodium [facility] Lisinopril Lisinopril Yes Na [facility] [address] [facility] Carvedilol Carvedilol Yes Na [facility] [address] [facility] Simethicone Simethicone Yes [place] [address] [facility] after [facility] - meals and Memoria at bedtime l as needed [facility] Furosemide Furosemide Yes Na Alegre TAKE [address] [facility] TABLET BY [facility] - MOUTH Memoria EVERY DAY l [facility] Duloxetine Duloxetine Yes Na [place] [address] [facility] HCl HCl [facility] Benadryl Benadryl Yes [place] [address] [facility] Allergy Allergy as needed [facility] - Memoria l [facility] Metoprolol Metoprolol Yes Na Alegre TAKE [address] [facility] Succinate Succinate TABLET BY [facility] - ER ER MOUTH Memoria TWICE l DAILY AT Outpati 6AM AND ent 6PM Clinics Topiramate Topiramate Yes Na Alegre TAKE [address] [facility] TABLET BY [facility] - MOUTH Memoria TWICE l DAILY [facility] Ipratropium Ipratropium Yes Na [facility] [address] -Albuterol -Albuterol [facility] - [facility] l [facility] Calcium Calcium Yes [facility] Carbamazepi Carbamazepi Yes Na [place]legre [address] [facility] ne ne [facility] BuPROPion BuPROPion Yes [place] [address] [facility] HCl ER (XL) HCl ER (XL) in the [facility] - morning [facility] l [facility] Gabapentin Gabapentin Yes Na [facility] [address] [facility] Levothyroxi Levothyroxi Yes Na [place] [address] [facility] ne Sodium ne Sodium on an Luke s - empty Memoria stomach in l the [facility]ics Atorvastati Atorvastati Yes [place]re [address] [facility] n Calcium n Calcium [facility] Diclofenac Diclofenac Yes [place] [address] [facility] [address] Sodium Sodium with food [facility] - or milk [facility]oria l [facility] Donepezil Donepezil Yes Na [place] [address] [facility] [address] HCl HCl at bedtime [facility] Protonix Protonix Yes Na [facility] [address] [facility] Ondansetron Ondansetron Yes [place] [address] [facility] [address] HCl HCl [facility] Oxybutynin Oxybutynin Yes Na Alegre [address] [facility] [facility] Chloride ER Chloride ER L ukes - Memoria l [facility] Folic Folic Yes Na [place]re [address] [facility] [address] Acid-Vit Acid-Vit [facility] - B6-Vit B12 B6-Vit B12 Mem oria l [facility] Memantine Memantine Yes [place] [address] [facility] HCl HCl [facility] Trazodone Trazodone Yes Na [facility] not [facility] HCl HCl defined [facility] Imodium A-D Imodium A-D Yes [place] [address] [facility] as needed [facility] Melatonin Melatonin Yes Na [place] [address] [facility] at bedtime [facility] - as needed [facility] with food l Outpati ent Clinics Vitamin D Vitamin D Yes Na [facility] [address] [facility] Zantac Zantac Yes Na A[place] [address] [facility] bedtime [facility] Procedures Procedure Date / Time Performed Performing Clinician [facility] e [id number] 2020-04-22 00:00:00 ENCPL [id number] 2020-04-22 00:00:00 ENCPL [id number] 2020-04-22 00:00:00 ENCPL [id number] 2020-04-22 00:00:00 ENCPL [id number] 2020-04-22 00:00:00 ENCPL [id number] 2020-04-19 00:00:00 ENCPL [id number] 2020-04-19 00:00:00 ENCPL [id number] 2020-04-19 00:00:00 ENCPL [id number] 2020-04-19 00:00:00 ENCPL [id number] 2020-04-19 00:00:00 ENCPL [id number] 2020-04-19 00:00:00 ENCPL Encounters Start End Encounter Admission Attending Care Care Encounter Source Date/Time Date/Time Type Type Clinicians Facility Department ID 2020-05-16 2020-05-16 Orders Doctor GENOVEVA [id number] 00:00:00 00:00:00 Only Unassigned, SHONDA [id number] [place] [facility] [id number] 2020-05-11 2020-05-11 Outpatient [facility] [id number] [facility] 2020-05-09 2020-05-09 Outpatient [facility] [id number] [facility] 2020-05-06 2020-05-06 Outpatient [facility] [id number] [facility] 2020-03-28 2020-03-28 Out[facility] [id number] [facility] 2020-03-17 2020-03-17 [facility] [id number] 15:04:00 15:04:[address] Luke s - Drive [facility] Medicine Outpati ent Clinics 2020-03-08 2020-03-08 [facility] [id number] 16:56:00 16:56:00 [place] [employer] [facility] - Drive [facility] Medicine Outpati ent Clinics 2020-02-09 2020-02-09 [facility] [id number] 16:59:00 16:59:00 [place] [employer] [facility] - Drive [facility] Medicine Outpati ent Clinics 2020-02-05 2020-02-05 [facility] [id number] 17:16:00 17:16:00 [place] [employer] [facility] - Drive [facility] Medicine Outpati ent Clinics 2020-01-23 2020-01-23 [facility] [id number] 10:32:00 10:32:00 [place] - Drive [facility] Medicine Outpati ent Clinics 2020-01-15 2020-01-15 [facility] [id number] 09:59:00 09:59:00 [place] - Drive [facility] Medicine Outpati ent Clinics 2020-01-10 2020-01-10 [facility] [id number] 14:25:00 14:25:00 [place] [employer] [facility] - Drive [facility] Medicine Outpati ent Clinics 2020-01-08 2020-01-08 [facility] [id number] 14:20:00 14:20:00 [place] - Drive [facility] Medicine Outpati ent Clinics 2020-01-07 2020-01-07 [facility] [id number] 19:54:00 19:54:[address] [employer] s - Road [facility] Medicine Outpati ent Clinics 2020-01-04 2020-01-04 [facility] [id number] 13:37:00 13:37:[address] Luke s - Drive [facility] l Medicine Outpati ent Clinics 2019-09-13 2019-09-13 [facility] [id number] 09:14:00 09:14:[address] Luke s - Drive [facility] Medicine l Medicine Outpati ent Clinics 2019-07-01 2019-07-01 [facility] [id number] 15:38:00 15:38:00 [place] [employer] [facility] - Drive [facility] Medicine l Medicine Outpati ent Clinics 2019-06-27 2019-06-27 [facility] [id number] 10:00:00 10:00:00 [place] [employer] [facility] s - Drive [facility] l Medicine Outpati ent Clinics 2019-06-21 2019-06-21 [facility] [id number] 14:45:00 14:45:00 [place] - Drive [facility] Medicine Medicine Outpati ent Clinics 2019-06-16 2019-06-16 [facility] [id number] 15:42:00 15:42:00 [place] - Drive [facility] Medicine l Medicine Outpati ent Clinics 2019-06-14 2019-06-14 [facility] [id number] 10:40:00 10:40:00 [place] - Drive [facility] Medicine Medicine Outpati ent Clinics 2019-06-06 2019-06-06 [facility] [id number] 11:00:00 11:00:00 [place] [employer] [facility] [place] [facility] - Drive [facility] Medicine l Medicine Outpati ent Clinics 2019-06-05 2019-06-05 [facility] [id number] 16:47:00 16:47:00 [place] [employer] [facility] - Drive [facility] Medicine l Medicine Outpati ent Clinics 2019-05-12 2019-05-12 [facility] [id number] 15:40:00 15:40:00 [place] [employer] [facility] - Drive [facility] Medicine l Medicine Outpati ent Clinics 2019-04-27 2019-04-27 [facility] [id number] 16:10:00 16:10:00 [place] - Drive [facility] Outpati ent Clinics 2019-04-27 2019-04-27 [facility] [id number] 11:20:00 11:20:00 [place] - Drive [facility] Outpati ent Clinics 2019-04-03 2019-04-03 [facility] [id number] 12:04:00 12:04:00 t [place] [employer] Luke s - Drive [facility] Outpati ent Clinics 2019-03-28 2019-03-28 [facility] [id number] 13:40:00 13:40:00 [place] - Drive [facility] Outpati ent Clinics 2019-03-21 2019-03-21 [facility] [id number] 15:40:00 15:40:00 [place] s - Drive [facility] Outpati ent Clinics 2019-03-14 2019-03-14 [facility] [id number] 13:13:00 13:13:00 [place] s - Drive [facility] Outpati ent Clinics 2019-03-13 2019-03-13 [facility] [id number] 14:00:00 14:00:00 [place] - Drive [facility] Outpati ent Clinics 2018-12-08 2018-12-08 [facility] [id number] 15:00:00 15:00:00 [facility] Clin[facility] Results Test Description Test Time [...] = MDIFF) NO DIFF/SCN CRITERIA CBC W/AUTO [id number] 12:23:00 Test Item Value Reference Range Interpretation [...] (test code NO DIFF/SCN CRITERIA = MDIFF) [id number] 15:11:00 Test Item Value Reference Range Interpretation Comments TRANSFERRRIN (test code 193 mg/dL 192-364 Perf ormed At: BN = TRANSF) [facility] [id number] ra Carlitos ZAMORA Ph:[phone] GLUCOSE BEDSIDE [id number] 13:01:00 Test Item Value Reference Range Interpretation Comments GLUCOSE BEDSIDE TESTING (test code 101 mg/dL 70-110 N = GLUBED) GLUCOSE BEDSIDE [id number] 08:35:00 Test Item Value Reference Range Interpretation Comments GLUCOSE BEDSIDE TESTING (test code 101 mg/dL 70-110 N = GLUBED) GLUCOSE BEDSIDE [id number] 19:42:00 Test Item Value Reference Range Interpretation Comments GLUCOSE BEDSIDE TESTING (test code = 93 mg/dL 70-110 N GLUBED) GLUCOSE BEDSIDE [id number] 16:13:00 Test Item Value Reference Range Interpretation Comments GLUCOSE BEDSIDE TESTING (test code = 96 mg/dL 70-110 N GLUBED) GLUCOSE BEDSIDE [id number] 12:55:00 Test Item Value Reference Range Interpretation Comments GLUCOSE BEDSIDE TESTING (test code 104 mg/dL 70-110 N = GLUBED) CBC W/AUTO [id number] 12:42:00 Test Item Value Reference Range Interpretation [...] 35 % calc 12-57 N FESAT) VITAMIN [id number] 08:58:00 Test Item Value Reference Range Interpretation Comments VITAMIN B12 (test code = VITB12) 479 PG/ML 183-986 N FOLIC [id number] 08:58:00 Test Item Value Reference Range Interpretation Comments FOLIC ACID (test code = FOL) 7.00 NG/ML 3.10-17.50 N [id number] 08:58:00 Test Item Value Reference Range Interpretation Comments FERRITIN (test code = TIO) 154.1 NG/ML 3.0-105.0 H GLUCOSE BEDSIDE [id number] 08:22:00 Test Item Value Reference Range Interpretation Comments GLUCOSE BEDSIDE TESTING (test code 107 mg/dL 70-110 N = GLUBED) BASIC METABOLIC [id number] 06:11:00 Test Item Value Reference Range Interpretation [...] CA) 8.8 MG/DL 8.5-10.1 N GLUCOSE BEDSIDE [id number] 20:03:00 Test Item Value Reference Range Interpretation Comments GLUCOSE BEDSIDE TESTING (test code 124 mg/dL 70-110 H = GLUBED) CBC W/AUTO [id number] 08:57:00 Test Item Value Reference Range Interpretation [...] NT WITH AUTO DIFFERENTI AL. CBC W/AUTO [id number] 08:57:00 Test Item Value Reference Range Interpretation [...] CONSISTA NT WITH AUTO DIFFERENTI AL. RBC [id number] 08:57:00 Test Item Value Reference Range Interpretation Comments PLATELET ESTIMATE DECREASED THOUSAND ADEQUATE PLAT ELET COUNT (test code = REVIEWED AND PLTEST) VERIFIED. PLATELET MORPHOLOGY NORMAL (test code = PLTMORPH) CBC W/AUTO [id number] 08:57:00 Test Item Value Reference Range Interpretation [...] NT WITH AUTO DIFFERENTI AL. GLUCOSE BEDSIDE [id number] 07:43:00 Test Item Value Reference Range Interpretation Comments GLUCOSE BEDSIDE TESTING (test code = 97 mg/dL 70-110 N GLUBED) BASIC METABOLIC [id number] 07:02:00 Test Item Value Reference Range Interpretation [...] code = CA) 7.8 MG/DL 8.5-10.1 L [id number] 07:02:00 Test Item Value Reference Range Interpretation Comments MAGNESIUM (test code = MAG) 1.5 MG/DL 1.8-2.4 L CBC W/AUTO [id number] 06:50:00 Test Item Value Reference Range Interpretation [...] code = DIFF/SCN CRITERIA MDIFF) GLUCOSE BEDSIDE [id number] 20:58:00 Test Item Value Reference Range Interpretation Comments GLUCOSE BEDSIDE TESTING (test code = 90 mg/dL 70-110 N GLUBED) GLUCOSE BEDSIDE [id number] 18:52:00 Test Item Value Reference Range Interpretation Comments GLUCOSE BEDSIDE TESTING (test code = 92 mg/dL 70-110 N GLUBED) BASIC METABOLIC [id number] 17:20:00 Test Item Value Reference Range Interpretation [...] = CA) 9.2 MG/DL 8.5-10.1 N CORTISOL [id number] 15:12:00 Test Item Value Reference Range Interpretation Comments CORTISOL AM (test code 9.8 ug/dL 6.2-19.4 Perfo rmed At: HD = CORTAM) [facility] [id number] stacie Grossman MD Ph:[phone] GLUCOSE BEDSIDE [id number] 14:56:00 Test Item Value Reference Range Interpretation Comments GLUCOSE BEDSIDE TESTING (test code 100 mg/dL 70-110 N = GLUBED) THYROID STIMULATING [id number] 13:24:00 Test Item Value Reference Range Interpretation Comments THYROID STIMULATING HORMONE 6.680 mcIU/ML 0.340-4.820 H (test code = TSH) - CT ABD PELVIS [id number] 11:35:00 Name: SHANTEL LAURENT Thayer : 1945 Age/S: 74 / F [id number] [address] [place] Unit #: [id number] Loc: [place] [address] Phys: Ursula Do MD Acct: [id number] Dis Date: Status: ADM IN PHONE #: [phone] Exam Date: 04/11/2020 1115 FAX #: Reason: abdominal pain EXAMS: CPT: [id number] CT ABD PELVIS W/CONT 90462 HISTORY: abdominal pain TECHNIQUE: Helical imaging of [...] 1 Signed Report (CONTINUED) Name: SHANTEL LAURENT Thayer : 1945 Age/S: 74 / F [address] [facility] [place] Unit #: [id number] Loc: [place] [address] Phys: Ursula Do MD Acct: [id number] Dis Date: Status: ADM IN PHONE #: [phone] Exam Date: 04/11/2020 1113 FAX #:Reason: abdominal pain EXAMS: CPT: [id number] CT ABD PELVIS W/CONT 14464 <Continued> No significant bone lesions. IMPRESSION: 1. [...] CC: Zurdo Rondon MD; Ursula Do MD Technologist:RT Moises(R)(CT) CTDI: DLP: Trnscb Date/Time: 04/11/2020 (1135) [email or web address] Orig Print D/T: S: 04/11/2020 (4435) PAGE 2 Signed ReportGLUCOSE BEDSIDE [id number] 08:00:00 Test Item Value Reference Range Interpretation Comments GLUCOSE BEDSIDE TESTING (test code 152 mg/dL 70-110 H = GLUBED) CBC W/AUTO [id number] 06:43:00 Test Item Value Reference Range Interpretation [...] code NO DIFF/SCN CRITERIA = MDIFF) RBC [id number] 06:43:00 Test Item Value Reference Range Interpretation Comments PLATELET ESTIMATE (test SLIGHTLY DECREASED ADEQUATE code = PLTEST) THOUSAND PLATELET MORPHOLOGY NORMAL (test code = PLTMORPH) CBC W/AUTO [id number] 06:42:00 Test Item Value Reference Range Interpretation [...] NO DIFF/SCN CRITERIA = MDIFF) CBC W/AUTO [id number] 06:42:00 Test Item Value Reference Range Interpretation [...] NO DIFF/SCN CRITERIA = MDIFF) GLUCOSE BEDSIDE [id number] 06:33:00 Test Item Value Reference Range Interpretation Comments GLUCOSE BEDSIDE TESTING (test code 154 mg/dL 70-110 H = GLUBED) BASIC METABOLIC [id number] 06:18:00 Test Item Value Reference Range Interpretation [...] MG/DL 8.5-10.1 L - XR CHEST 1 [id number] 21:13:00 Name: SHANTEL LAURENT [facility] : 1945 Age/S: 74 / F [address] [address] [place] Unit #: [id number] Loc: [place] [address] Phys: Ursula Do MD Acct: [id number] Dis Date: Status: ADM IN PHONE #: [phone] Exam Date: 04/10/20202106 FAX #: Reason: PICC LINE PLACEMENT EXAMS: CPT: [id number] XR CHEST 1 V 72629 Fluoro Time: DAP (Gy m2): Air Kerma [...] PAGE 1 Signed Report Name: SHANTEL LAURENT : 1945 Age/S: 74 / F [address] [address] [place] Unit #: [id number] Loc: [place] [address] Phys: Ursula Do MD Acct: [id number] Dis Date: Status: ADM IN PHONE #: [phone] Exam Date: 04/10/20202106 FAX #: Reason: PICC LINE PLACEMENT EXAMS: CPT: [id number] XR CHEST 1 V 18519 Fluoro Time: DAP (Gy m2): Air Kerma (mGy): <Continued> Technologist: Joelle So RT(R)(CT) Trnscb Date/Time: 04/10/2020 (2112) [email or web address] Orig Print D/T: S: 04/10/2020 (2115) PAGE 2 Signed ReportGLUCOSE BEDSIDE [id number] 20:19:00 Test Item Value Reference Range Interpretation Comments GLUCOSE BEDSIDE TESTING (test code = 76 mg/dL 70-110 N GLUBED) GLUCOSE BEDSIDE [id number] 16:22:00 Test Item Value Reference Range Interpretation Comments GLUCOSE BEDSIDE TESTING (test code = 82 mg/dL 70-110 N GLUBED) CBC W/AUTO [id number] 07:47:00 Test Item Value Reference Range Interpretation [...] NO DIFF/SCN CRITERIA = MDIFF) BASIC METABOLIC [id number] 06:50:00 Test Item Value Reference Range Interpretation [...] CA) 8.8 MG/DL 8.5-10.1 N GLUCOSE BEDSIDE [id number] 00:23:00 Test Item Value Reference Range Interpretation Comments GLUCOSE BEDSIDE TESTING (test code = 88 mg/dL 70-110 N GLUBED) GLUCOSE BEDSIDE [id number] 22:47:00 Test Item Value Reference Range Interpretation Comments GLUCOSE BEDSIDE TESTING (test code = 50 mg/dL 70-110 L GLUBED) GLUCOSE BEDSIDE [id number] 20:50:00 Test Item Value Reference Range Interpretation Comments GLUCOSE BEDSIDE TESTING (test code = 62 mg/dL 70-110 L GLUBED) BASIC METABOLIC [id number] 19:19:00 Test Item Value Reference Range Interpretation [...] CA) 9.5 MG/DL 8.5-10.1 N BASIC METABOLIC [id number] 15:26:00 Test Item Value Reference Range Interpretation [...] CA) 9.0 MG/DL 8.5-10.1 N GLUCOSE BEDSIDE [id number] 12:06:00 Test Item Value Reference Range Interpretation Comments GLUCOSE BEDSIDE TESTING (test code = 81 mg/dL 70-110 N GLUBED) GLUCOSE BEDSIDE [id number] 12:06:00 Test Item Value Reference Range Interpretation Comments GLUCOSE BEDSIDE TESTING (test code = 54 mg/dL 70-110 L GLUBED) GLUCOSE BEDSIDE [id number] 08:14:00 Test Item Value Reference Range Interpretation Comments GLUCOSE BEDSIDE TESTING (test code = 46 mg/dL 70-110 L GLUBED) GLUCOSE BEDSIDE [id number] 08:14:00 Test Item Value Reference Range Interpretation Comments GLUCOSE BEDSIDE TESTING (test code = 34 mg/dL 70-110 LL GLUBED) CBC W/AUTO [id number] 06:08:00 Test Item Value Reference Range Interpretation [...] code NO DIFF/SCN CRITERIA = MDIFF) RBC [id number] 06:08:00 Test Item Value Reference Range Interpretation Comments PLATELET ESTIMATE DECREASED ADEQUATE PLATELET C OUNT (test code = THOUSAND VERIFIED BY PLTEST) EXAMINATION OF PERIPHERAL BLOODSMEAR.MANU AL PLT ESTIMATE 92,000-115,000 PLATELET NORMAL MORPHOLOGY (test code = PLTMORPH) CBC W/AUTO [id number] 06:07:00 Test Item Value Reference Range Interpretation [...] NO DIFF/SCN CRITERIA = MDIFF) CBC W/AUTO [id number] 06:07:00 Test Item Value Reference Range Interpretation [...] NO DIFF/SCN CRITERIA = MDIFF) BASIC METABOLIC [id number] 06:06:00 Test Item Value Reference Range Interpretation [...] CA) 9.4 MG/DL 8.5-10.1 N CBC W/AUTO [id number] 05:48:00 Test Item Value Reference Range Interpretation [...] DIFF/SCN CRITERIA MDIFF) - MRI BRAIN W/O [id number] 19:59:00 FAX: Zurdo Perales MD [phone] Camps: PM St: ADM Name: SHANTEL LAURENT [facility] : 1945 Age/S: 74/F [address] [address] [place] Unit #: [id number] Loc: L.ICU0 [place] [address] Phys: Zurdo Rondon MD Acct: [id number] Dis Date: Status: ADM IN PHONE #: [phone] Exam Date: 04/08/2020 1734 FAX #: Reason: ISCHEMIC STROKE EXAMS: CPT: [id number] MRI BRAIN W/O CONTRAST 55539 LOCATION CODE H 31 MRI BRAIN WITHOUT [...] Signed Report (CONTINUED) FAX: Zurdo Perales MD [phone] Camps: PM St: ADM------- Name: SHANTEL LAURENT [facility] : 1945 Age/S: 74/F [address] [address] Unit #: [id number] Loc: L.ICU[address] [place] [address] Phys:Zurdo Rondon MD Acct: [id number] Dis Date: Status: ADM IN PHONE #: [phone] Exam Date: 04/08/2020 1730 FAX #: Reason: ISCHEMIC STROKE EXAMS: CPT: [id number] MRI BRAIN W/O CONTRAST 21441 <Continued> at 1959 Reported and signed by: Karey Oconnor MD CC: Zurdo Rondon MD Technologist: Brian Luther RT(R)(MR) Transcribed Date/Time/By: 04/08/2020 (1958) :[email or web address] Orig PrintD/T: S: 04/08/2020 (2001) PAGE 2 Signed Report- XR SHOULDER 2+V [id number] 16:42:00 Name: SHANTEL LAURENT Thayer : 1945 Age/S: 74 / F [address] [address] [place] Unit #: [id number] Loc: [place] [address] Phys: Zurdo Rondon MD Acct: [id number] Dis Date: Status: ADM IN PHONE #: [phone] Exam Date: 04/08/2020 1630 FAX #: Reason: left shou lder pain EXAMS: CPT: [id number] XR SHOULDER 2+[place] [address] Fluoro Time: DAP (Gy m2): Air Kerma [...] MD PAGE1 Signed Report Name: SHANTEL LAURENT [place] : 1945 Age/S: 74 / F [address] [address] Unit #: [id number] Loc: [place] [address] Phys: Zurdo Rondon MD Acct: [id number] Dis Date: Status: ADM IN PHONE #: [phone] Exam Date: 04/08/2020 1630 FAX #: Reason: left shoulder pain EXAMS: CPT: [id number] XR SHOULDER 2+V LT [address]856 Fluoro Time: DAP (Gy m2): Air Kerma (mGy): <Continued> Technologist: Kimmie Curtis RT(R)(CT) Trnscb Date/Time: 04/08/2020 (1641) TigistC Orig Print D/T: S: 04/08/2020 (4199) PAGE 2 Signed [id number] 06:02:00 Test Item Value Reference Range Interpretation [...] may nella yby method. Completed by Nursing: [facility] METABOLIC [id number] 05:37:00 Test Item Value Reference Range Interpretation [...] Ratio 1.48-3.22 Avg L Comment: FASTING IN [id number] 05:37:00 Test Item Value Reference Range Interpretation Comments GLYCOSYLATED HEMOGLOBIN (HA1C) 5.0 % A1C 0.0-5.7 N (test code = GLYHGB) ESTIMATED AVERAGE GLUCOSE (test 97 MG/DLest code = EAG) CBC W/AUTO [id number] 05:23:00 Test Item Value Reference Range Interpretation [...] (test code NO DIFF/SCN CRITERIA = MDIFF) [id number] 21:26:00 Test Item Value Reference Range Interpretation [...] nella yby method. Completed by Nursing: NOVITAMIN [id number] 19:04:00 Test Item Value Reference Range Interpretation Comments VITAMIN B12 (test code = VITB12) 376 PG/ML 183-986 N FOLIC [id number] 19:04:00 Test Item Value Reference Range Interpretation Comments FOLIC ACID (test code = FOL) 6.20 NG/ML 3.10-17.50 N THYROID STIMULATING [id number] 19:04:00 Test Item Value Reference Range Interpretation Comments THYROID STIMULATING HORMONE 3.100 mcIU/ML 0.340-4.820 N (test code = TSH) CARBAMAZEPINE (TEGRETOL)2020-04-07 19:04:00 Test Item Value Reference Range Interpretation Comments CARBAMAZEPINE (TEGRETOL) (test < 0.5 mcG/ML 4.0-12.0 L code = CARB) VALPROIC ACID (DEPAKENE)2020-04-07 19:04:00 Test Item Value Reference Range Interpretation Comments VALPROIC ACID (DEPAKENE) (test 53.7 mcG/ML 50.0-100.0 N code = VALP) VITAMIN [id number] 18:35:00 Test Item Value Reference Range Interpretation Comments VITAMIN B12 (test code = VITB12) 376 PG/ML 183-986 N FOLIC [id number] 18:35:00 Test Item Value Reference Range Interpretation Comments FOLIC ACID (test code = FOL) 6.20 NG/ML 3.10-17.50 N THYROID STIMULATING [id number] 18:35:00 Test Item Value Reference Range Interpretation Comments THYROID STIMULATING HORMONE 3.100 mcIU/ML 0.340-4.820 N (test code = TSH) CARBAMAZEPINE (TEGRETOL)2020-04-07 18:35:00 Test Item Value Reference Range Interpretation Comments CARBAMAZEPINE (TEGRETOL) (test code = mcG/ML 4.0-12.0 CARB) VALPROIC ACID (DEPAKENE)2020-04-07 18:35:00 Test Item Value Reference Range Interpretation Comments VALPROIC ACID (DEPAKENE) (test code = mcG/ML 50.0-100.0 VALP) [id number] 18:17:00 Test Item Value Reference Range Interpretation [...] method. Completed by Nursing: NOCOVID 19 INHOUSE [id number] 16:14:00 Test Item Value Reference Range Interpretation Comments COVID 19 INHOUSE AG NEGATIVE Negative Per manu facturer, (test code = negative result s should [id number]) be treated aspr esumptive and, if inconsi [...] symptoms co nsistent with COVID-19. GLUCOSE BEDSIDE [id number] 16:06:00 Test Item Value Reference Range Interpretation Comments GLUCOSE BEDSIDE TESTING (test code = 79 mg/dL 70-110 N GLUBED) UA RFLX MICR CULT IF [id number] 15:35:00 Test Item Value Reference Range Interpretation [...] RiskForSepsis-no oth srcUA RFLX MICR CULT IF [id number] 15:28:00 Test Item Value Reference Range Interpretation [...] UACULT) Indication for culture: RiskForSepsis-no oth srcPROTHROMBIN [id number] 14:58:00 Test Item Value Reference Range Interpretation Comments PT PATIENT (test code = PTP) 11.2 SECONDS 9.3-12.9 N INTERNATIONAL NORMAL RATIO 0.99 INR Unit 0.8-1.2 N (test code = INR) THROMBOPLASTIN TIME [id number] 14:58:00 Test Item Value Reference Range Interpretation Comments THROMBOPLASTIN TIME PARTIAL 21.3 SECONDS 26-35 L (test code = PTT) BASIC METABOLIC [id number] 14:46:00 Test Item Value Reference Range Interpretation [...] 9.1 MG/DL 8.5-10.1 N Completed by Nursing: [id number] 14:46:00 Test Item Value Reference Range Interpretation [...] method. Completed by Nursing: NO- CT ANGIO [id number] 14:46:00 Name: SHANTEL LAURENT [facility] : 1945 Age/S: 74 / F [address] Unit #: [id number] Loc: [place] [address] Phys: Jc Garcia MD Acct: [id number] Dis Date: Status: PRE ER PHONE #: [phone] Exam Date: 04/07/2020 1430 FAX #: Reason: ams, slurred speech EXAMS: CPT: [id number] CT ANGIO NECK 59483 EXAM: - CTANGIO HEAD, - CT ANGIO [...] LAURENT : 1945 Age/S: 74 / F [address] Unit #: [id number] Loc: [place] [address] Phys: Jc Garcia MD Acct: [id number] Dis Date: Status: PRE ER PHONE #: [phone] Exam Date: 04/07/2020 1430FAX #: Reason: ams, slurred speech EXAMS: CPT: [id number] CT ANGIO NECK 82605 <Continued> The RIGHT posterior cerebral artery, superior [...] Technologist:RT Jesse(R)(CT) CTDI: DLP: Trnscb Date/Time: 04/07/2020 (4506) t.NOÉR.KW9 Orig Print D/T: S: 04/07/2020 (0518) PAGE 2 Signed Report- CT ANGIO [id number] 14:46:00 Name: SHANTEL LAURENT : 1945 Age/S: 74 / F [address] [address] Unit #: [id number] Loc: [place] [address] Phys: Jc Garcia MD Acct: [id number] Dis Date: Status: PRE ER PHONE #: [phone] Exam Date: 04/07/2020 1425 FAX #: Reason: ams, slurred speech EXAMS: CPT: [id number] CT ANGIO HEAD 92008 EXAM: - CTANGIO HEAD, - CT ANGIO [...] LAURENT : 1945 Age/S: 74 / F [address] Unit #: [id number] Loc: [place] [address] Phys: Jc Garcia MD Acct: [id number] Dis Date: Status: PRE ER PHONE #: [phone] Exam Date: 04/07/2020 1425FAX #: Reason: ams, slurred speech EXAMS: CPT: [id number] CT ANGIO HEAD [address]32[address] <Continued> The RIGHT posterior cerebral artery, superior [...] Technologist:RT Jesse(R)(CT) CTDI: DLP: Trnscb Date/Time: 04/07/2020 (7746) tBRADYR.KW9 Orig Print D/T: S: 04/07/2020 (4844) PAGE 2 Signed Report- XR CHEST 1 [id number] 14:37:00 Name: SHANTEL LAURENTland : 1945 Age/S: 74 / F [address] [address] Unit #: [id number] Loc: [place] [address] Phys: Jc Garcia MD Acct: [id number] Dis Date: Status: PRE ER PHONE #: [phone] Exam Date: 04/07/2020 1432 FAX #: Reason: Code Stroke EXAMS: CPT: [id number] XR CHEST 1 V 64552 Fluoro Time: DAP (Gy m2): Air Kerma [...] of pneumothorax.. Not fully included in the xndxe-bz-ftrk, there appears to be cortical irregularity about the left humeral head, which may represent fracture; age indeterminate. An IVC filter is partially seen in the upper abdomen. IMPRESSION 1. Low lung volumes and bronchovascular crowding. Otherwise, No radiographic evidence of acute cardiopulmonary process. 2.Not fully included in the gcayj-bg-hbnj, there appears to be cortical irregularity about the left humeral head, which may represent fracture; age indeterminate. Correlate with point tenderness on physical exam. Additional dedicated radiographs of the left shoulder and/or humerus may be obtained if it is clinically warranted. at 1437 Reported and signed by: Alina Marcum M.D. CC: Jc Garcia MD PAGE 1 Signed Report Name: SHANTEL LAURENT [place] : 1945 Age/S: 74 / [id number] Unit #: [id number] Loc: [place] [address] Phys: Jc Garcia MD Acct: [id number] Date: Status: PRE ER PHONE #: [phone] Exam Date: 04/07/2020 1432 FAX #: Reason: Code Stroke EXAMS: CPT: [id number] XR CHEST 1 V 92892 Fluoro Time: DAP (Gy m2): Air Kerma (mGy): <Continued> Technologist: Courtney Roland RT(R) Trnscb Date/Time: 04/07/2020 (1437) KingKW9 Orig PrintD/T: S: 04/07/2020 (2997) PAGE 2 Signed ReportCBC W/O [id number] 14:23:00 Test Item Value Reference Range Interpretation [...] 7.0-10.5 N MPV) - CT HEAD/BRAIN W/O [id number] 14:23:00 [facility] [place] [facility] 1945 Age/S: 74 / F [address] Unit #: [id number] Loc: [place] [address] Phys: Jc Garcia MD Acct: [id number] Dis Date: Status: PRE ER PHONE #: [phone] Exam Date: 04/07/2020 1417 FAX #: Reason: Code Str shailesh EXAMS: CPT: [id number] CT HEAD/BRAIN W/O CONT 58311 EXAM: - CTHEAD/BRAIN W/O CONT HISTORY: Code [...] 1 Signed Report (CONTINUED) Name: SHANTEL LAURENT [place] : 1945 Age/S: 74 / F [address] [facility] Unit #: [id number] Loc: [place] [address] Phys: Jc Garcia MD Acct: [id number] Dis Date: Status: PRE ER PHONE #: [phone] Exam Date: 04/07/2020 141 FAX #: Reason: Code Stroke EXAMS: CPT: [id number] CT HEAD/BRAIN W/O CONT 08970 <Continued> at 1423 Reported and signed by: Alina Marcum M.D. CC: Jc Garcia MD Technologist:Kimmie Curtis RT(R)(CT) CTDI: DLP: Trnscb Date/Time: 04/07/2020 (1423) t.NOÉR.KW9/t.SDR.KW9 Orig Print D/T: S: 04/07/2020 (7830) PAGE 2 Signed ReportVALPROIC ACID (DEPAKENE)2019-08-31 07:37:00 Test Item Value Reference Range Interpretation Comments VALPROIC ACID (DEPAKENE) (test 45.7 ug/mL 50.0-100.0 L code = VALP) HGBA1C - GLYCOSYLATED [id number] 14:38:00 Test Item Value Reference Range Interpretation Comments GLYCOSYLATED HEMOGLOBIN (HA1C) (test 4.7 % 4.0-6.0 N code = GLYHGB) URINALYSIS [id number] 13:31:00 Test Item Value Reference Range Interpretation [...] = BACU) 3+ /HPF NEGATIVE A URINALYSIS [id number] 13:20:00 Test Item Value Reference Range Interpretation [...] code = BACU) /HPF NEGATIVE BASIC METABOLIC [id number] 12:49:00 Test Item Value Reference Range Interpretation [...] 9.2 mg/dL 8.6-10.4 N CA) BASIC METABOLIC [id number] 12:43:00 Test Item Value Reference Range Interpretation [...] code = mg/dL 8.6-10.4 CA) CBC W/AUTO [id number] 12:02:00 Test Item Value Reference Range Interpretation [...] Risk LD L Cholesterol<1 00mg/dL: Desirable LDL-C zihvporvtvqgv98 0-159mg/ dL: Borderline High Risk LDL-C rgmwjcungyfwu27 0-189mg/ dL: High risk L DL-C concentration H DL-LDL Cholesterol is affected by a number of factors suchas smoking, age and sex.~~~~~~~~~~~ ~~~~~~~~ ~~~~~~~~~~~~~~~ ~~~~~~~~ ~~~~~~~~~~~~~~~ ~~~ THYROID STIMULATING [id number] 12:09:00 Test Item Value Reference Range Interpretation Comments THYROID STIMULATING HORMONE (test 8.41 mIU/mL 0.38-5.60 H code = TSH)
--- OUTSIDE RECORDS SUMMARY | 2020-05-28 11:30 | XMS REPORT ---
[...] End Status Dosage System Date Date Lisinopril [facility] 56717128660 2.5 MG Orally Active 1 t ablet twice a day Carvedilol [facility] 25254993804 6.25 MG Orally Active 1 tablet Twice a day Zofran ND 61701053911 4 MG Orally Jun 14, Active 1 tablet every 12 hrs 2018 prn nausea Levothyroxine ND 32288930581 25 MCG Orally Oct 24, Active 1 tablet in Sodium Once a day 2019 the morning on an empty stomach Simethicone ND 24687490546 80 MG Orally Active 1 t ablet Four times a after meals day and at bedtime as needed Divalproex ND 28639007496 250 MG Orally Active 3 t ablets Sodium Twice a day Furosemide [facility] 50961178954 40 MG Active TAKE 1 TA BLET BY MOUTH EVERY DAY Duloxetine HCl ND 98822606788 60 MG Orally Active 1 capsule Once a day Comp Air ND 32571660788 - every 6 Jun 16, Active as direc james Compressor hours as needed 2018 Nebulizer Benadryl Allergy ND 02645900567 25 MG Orally Active 1 tablet as every 8 hrs needed Santyl ND 51461746482 250 UNIT/GM January Active 1 applic ation Externally 06, 04, nickel twice a day 2019 2019 thickness Flonase ND 96670125944 50 MCG/DOSE December Active 1 spray in Nasally Twice a 06, each nos tril day 2018 Metoprolol ND 74951573816 25 MG Active TAKE 1 TA BLET Succinate ER BY MOUTH TWICE DAILY AT 6AM AND 6PM Topiramate ND 70508188921 100 MG Active TAKE 1 TA BLET BY MOUTH TWICE DAILY Ipratropium-Albu ND 18310873296 0.5-2.5 (3) Active 3 ml terol MG/3ML Inhalation every 6 hrs Imitrex ND 58723629174 50 MG Orally Sept Active 1 table t as Once a day december 01, needed repeat dose 1 2018 dose in 2 hours ( max 2 doses in 24 hours) Calcium NDC 0 Oral Active 1 tab Carbamazepine ND 53355889428 200 MG Orally Active 1 tablet once a day BuPROPion HCl ER ND 52935029744 300 MG Orally Activ e 1 tablet in (XL) Once a day the morning Gabapentin ND 60436699660 800 MG Orally Active 1 t ablet three times a day Cipro ND 23323985270 500 MG Orally Mar Active 1 tabl et every 12 hrs , , 2019 2019 Levothyroxine ND 54428367396 200 MCG Orally Active 1 tablet on Sodium Once a day an empty stomach in the morning Atorvastatin ND 15890700402 20 MG Orally Active 1 tablet Calcium Once a day Diclofenac ND 70760530460 75 MG Orally Active 1 ta blet with Sodium Twice a day food or milk Donepezil HCl ND 85182735817 10 MG Oral Active 1 t ablet at twice a day bedtime Protonix ND 94059592029 40 MG Orally Active 1 tabl et Once a day Ondansetron HCl ND 33765537523 4 MG Orally Active 1 tablet every 6 hrs Oxybutynin [facility] 94727598721 5 MG Oral twice Active 1 tablet Chloride ER a day Folic Acid-Vit [facility] 30[address]-67887 0.8-10-0.115 MG Activ e 1 tablet B6-Vit B12 Orally Once a day Memantine HCl [facility] 01688501860 10 MG Orally Active 1 tablet Twice a day Trazodone HCl [facility] 76185187138 50 MG Oral Active not defined Claritin [facility] 63869327457 10 MG Orally Melissa Active 1 tabl et Once a day 2018 Imodium A-D [facility] 22995013275 2 MG Orally Active 1 ta blet as Four times a needed day Melatonin [facility] 78768178920 3 MG Orally Active 1 tabl et at Once a day bedtime as needed with food Vitamin D [facility] 85018746334 1000 UNIT Active 1 tablet Orally Once a day Zantac [facility] 69716506164 150 MG Orally Active 1 tabl et at Once a day bedtime Results No Known Results Summary Purpose eClinicalWorks Submission
--- OUTSIDE RECORDS SUMMARY | 2020-05-28 11:31 | XMS REPORT | Summary of Care ---
:1945 Author Organization [facility] - Health Address [address] [place] [address] Care Team Providers Name Role Phone Godfrey Clement Primary Care Provider Encounter Details Date Type Department Care Team Description 05/16/2020 Orders Only [facility] Doctor Unassigned, No [address] [facility] [place] [address] [address] [id number] Allergies No Known Allergiesdocumented as of this encounter (statuses as of 05/21/2020) Medications Medication Sig Dispensed Refills Start Date End Date Status FOLIC Take 1 tablet 0 Active ACID/MULTIVIT-MIN/LUTEIN by mouth daily. (CENTRUM SILVER ORAL) MULTIVITAMIN ORAL Take 1 tablet 0 Active by mouth daily. mv,iron,min-folic Take 1 capsule 0 Active acid-biotin (HAIR, SKIN by mouth daily. AND NAILS-ARGAN OIL) 66.7-1,666.7 mcg Cap cholecalciferol, vitamin Take 1,000 0 Active D3, 1,000 unit tablet Units by mouth 2 (two) times daily. fexofenadine (GUILLERMINA Take 180 mg by 0 Active ALLERGY) 180 mg tablet mouth daily. acetaminophen (TYLENOL) Take 2 tablets 90 tablet 0 06/03/2016 Active 325 mg tablet by mouth every 6 (six) hours as needed for Pain (scale 1-3). LORazepam (ATIVAN) 0.5 Take 1 tablet 30 tablet 0 06/03/2016 Active mg tablet by mouth 3 (three) times daily. gabapentin (NEURONTIN) Take 1 tablet 60 tablet 0 06/03/2016 Active 800 mg tablet by mouth 2 (two) times daily. diphenhydrAMINE Take 1 tablet 30 tablet 0 06/03/2016 Active (BENADRYL) 50 mg tablet by mouth every 4 (four) hours as needed for Itching or Allergies. atorvastatin (LIPITOR) Take 1 tablet 30 tablet 0 06/03/2016 Active 20 mg tablet by mouth at bedtime. benztropine (COGENTIN) 1 Take 1 tablet 30 tablet 0 06/03/2016 Active mg tablet by mouth 2 (two) times daily. QUEtiapine (SEROQUEL XR) Take 1 tablet 30 tablet 0 06/03/2016 Active 200 mg 24 hr tablet by mouth daily. risperiDONE (RISPERDAL) Take 1 tablet 60 tablet 0 06/03/2016 Active 2 mg tablet by mouth 2 (two) times daily. calcium carbonate Take 1 tablet 30 tablet 0 06/03/2016 Active (CALCIUM 500) 500 mg by mouth daily. calcium (1,250 mg) tablet donepezil (ARICEPT ODT) Take 1 tablet 30 tablet 0 06/03/2016 Active 5 mg disintegrating by mouth at tablet bedtime. folic acid (FOLVITE) 800 Take 1 tablet 30 tablet 0 06/03/2016 Active mcg tablet by mouth daily. flaxseed 1,000 mg Cap Take 1 capsule 30 capsule 0 06/03/2016 Active by mouth 2 (two) times daily. ferrous sulfate 325 mg Take 1 tablet 30 tablet 0 06/03/2016 Active (65 mg iron) tablet by mouth daily. bisacodyl (DULCOLAX) 5 Take 1 tablet 30 tablet 0 06/03/2016 Active mg EC tablet by mouth as needed for Constipation. lactulose (CEPHULAC) 10 Take 15 mL by 1 Bottle 2 06/03/2016 Active gram/15 mL solution mouth every morning as needed for Constipation. montelukast (SINGULAIR) Take 1 tablet 30 tablet 0 06/03/2016 Active 10 mg tablet by mouth daily. codeine-guaifenesin Take 5 mL by 180 mL 0 06/03/2016 Active (ROBITUSSIN AC) 10-100 mouth every 6 mg/5 mL solution (six) hours as needed (sore throat, cough). fluticasone 50 Use 2 Sprays in 16 g 0 06/03/2016 Active mcg/actuation nasal each nostril spray daily. buPROPion XL (WELLBUTRIN Take 1 tablet 30 tablet 0 06/03/2016 Active XL) 300 mg 24 hr tablet by mouth daily. DULoxetine (CYMBALTA) 60 Take 1 capsule 30 capsule 0 6 Active mg capsule by mouth daily. triamcinolone acetonide Apply to 15 g 1 06/03/2016 Active (TRIDERM) 0.1 % cream area(s) 2 (two) times daily. rash amitriptyline (ELAVIL) Take 1 tablet 30 tablet 0 06/03/2016 Active 25 mg tablet by mouth at bedtime. tolterodine (DETROL) 2 Take 1 tablet 60 tablet 0 06/03/2016 Active mg tablet by mouth 2 (two) times daily. documented as of this encounter (statuses as of 05/21/2020) Active Problems Problem Noted Date UTI (urinary tract infection) 05/27/2016 Knee joint replacement status 04/16/2016 Morbid obesity 04/15/2016 Pain 04/15/2016 Anemia Arthritis Chronic kidney disease History of DVT (deep vein thrombosis) Hypertension documented as of this encounter (statuses as of 05/21/2020) Resolved Problems Problem Noted Date Resolved Date Post-op pain 10/30/2015 04/15/2016 Acute kidney injury 02/02/2015 04/15/2016 Pulmonary embolism 11/08/2014 04/15/2016 documented as of this encounter (statuses as of 05/21/2020) Social History Tobacco Use Types Packs/Day Years Used Date Never Smoker Smokeless Tobacco: Never Used Comments: denies smoking Alcohol Use Drinks/Week oz/Week Comments No Sex Assigned at Date Recorded Not on file documented as of this encounter Last Filed Vital Signs Not on filedocumented in this encounter Plan of Treatment Health Maintenance Due Date Last Done Comments HEPATITIS C (HCV) SCREEN 1945 Depression Screening 1959 DTaP,Tdap,and Td Vaccines (1 - Tdap) 11/14/1966 Breast Cancer Screening (MAMMOGRAM) 1987 COLON CANCER SCREENING ANNUAL FIT/FOBT 11/14/1997 COLON CANCER SCREENING FIT DNA EVERY 3 YEARS 11/14/1997 COLON CANCER SCREENING SIGMOIDOSCOPY EVERY 5 YEARS 11/14/1997 COLONOSCOPY 11/14/1997 Colorectal Cancer Screening 11/14/1997 Zoster Recombinant Vaccine (SHINGRIX) (1 of 2) 11/14/1997 Medicare Wellness Visit 11/14/2012 Osteoporosis Screening 11/14/2012 PNEUMOCOCCAL VACCINES 65+ (1 of 1 - PPSV23) 11/14/2012 INFLUENZA VACCINE (#1) 2020 documented as of this encounter Implants Implanted Type Area [employer]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 [employer]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 Model / Identifier Expiration Serial / Lot Date Cement CEMENT Right: Biomet 01/01/20193-- / Implanted: Qty: 1 on 10/30/2015 by Jack Horn MD at [facility] Knee 8 [id number] / [id number] Cement CEMENT Right: Biomet 01/01/2019- / Implanted: Qty: 1 on 10/30/2015 by Jack Horn MD at [facility] Knee 8 [id number] / [id number] [employer] C[employer] W/ Gent CEMENT Left: Kia 10/03/201999-2958-937 / Implanted: Qty: 1 on 04/15/2016 by Jack Horn MD at [facility] Knee 8 [id number] / [id number] [employer] W/ Gent CEMENT Left: Kia 08/04/201967-8484-963- / Implanted: Qty: 1 on 04/15/2016 by Jack Horn MD at [facility] Knee 8 [id number] / [id number] [facility] Open Box Femoral Femur Left: Biomet 0 11/03/2023 [id number] / Implanted: Qty: 1 on 04/15/2016 by Jack Horn MD at [facility] Knee 6 [id number] / [id number] Ps Open Box Femoral Right KNEE Right: Biomet 03/0 07/2022 [id number] / Implanted: Qty: 1 on 10/30/2015 by Jack Horn MD at [facility] Knee 8 [id number] / [id number] Ps Tibial Bearing KNEE Right: Biomet 10/18/2019 1 [id number] / Implanted: Qty: 1 on 10/30/2015 by Jack Horn MD at [facility] Knee 7 [id number] / [id number] Ps Tibial Bearing KNEE Left: Biomet 08/12/2020 1 [id number] / Implanted: Qty: 1 on 04/15/2016 by Jack Horn MD at [facility] Knee 0 [id number] / [id number] Series A Standard Patella PATELLA Right: Biomet 10/2020 [id number] / Implanted: Qty: 1 on 10/30/2015 by Jack Horn MD at [facility] Knee 0 [id number] / [id number] Series-A Standard Patella PATELLA Left: Biomet 04/2021 [id number] / Implanted: Qty: 1 on 04/15/2016 by Jack Horn MD at [facility] Knee 1 [id number] / [id number] Cruciate Tibial Plate PLATE Right: Biomet 12/04/19 25 [id number] / Implanted: Qty: 1 on 10/30/2015 by Jack Horn MD at [facility] Knee J [id number] / [id number] Fixed Cruciate Tibial Plate Tibia Left: Biomet [id number] / Implanted: Qty: 1 on 04/15/2016 by Jack Horn MD at [facility] Augment Knee J [id number] / [id number] documented as of this encounter Procedures Procedure Name Priority Date/Time Associated Diagnosis Comme [facility] EMERGENCY DEPARTMENT Routine 05/16/2020 12:01 AM 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 Medicare & B ent [phone] [place]SH [phone] BCBS OF BCBS [id number] 2014-Pres [phone] [facility] ent [phone] [place] [address] documented as of this encounter
[2020-05-28 11:55] LABS: Basophils % 0.3 % (0-1.3); Hematocrit 28.3 % (36.0-45.0); Lymphocytes % 12.1 % (15.3-44.8); MPV 8.8 fL (7.6-11.3)
--- NOTE | 2020-05-28 11:55 | RAD REPORT ---
EXAM DESCRIPTION: CT - CTHCSPWOC - 05/28/2020 11:34 am CLINICAL HISTORY: fall, head and neck injury COMPARISON: Head C Spine Mpr Wo Con dated 11/06/2019 TECHNIQUE: Axial 5 mm thick images of the head were obtained. It has All CT scans are performed using dose optimization technique as appropriate and may include automated exposure control or mA/KV adjustment according to patient size. FINDINGS: No intracranial hemorrhage, mass, edema or acute intracranial finding. No suspicion for ac elda infarction. No extra-axial fluid collections. Mastoid air cells are clear. Chronic sinus changes are present right maxillary sinus. No globe or orbit abnormality seen. Atrophy changes are mild. Vent ricles are in proportion. Mild chronic ischemic changes also present. Intracranial findings are simil ar to comparison. Cervical bodies are normal in height. No subluxation abnormality. Accentuated cervical lordosis and u pper thoracic kyphosis noted similar to comparison. No new or progressive disc space narrowing. No fr acture or acute bony abnormality. Multilevel facet joint degenerative changes are present. Bilateral foraminal stenosis present at C3-4 and C4-5. Left foraminal stenosis at C5-6. Central canal detail is inherently limited. No paraspinal mass or hematoma. IMPRESSION: No hemorrhage, edema or acute intracranial finding. Patient has mild atrophy and chronic ischemic pattern matches the November 2019 study. Prominent cervical spine degenerative changes are present primarily in the facet joints. No fracture identified and no acute finding or change from comparison.
--- NOTE | 2020-05-28 11:57 | RAD REPORT ---
EXAM DESCRIPTION: RAD - Knee Left 2 View - 05/28/2020 11:47 am CLINICAL HISTORY: PAIN, multiple falls COMPARISON: Knee Left 3 View dated 10/12/2019; Knee Left 2 View dated 04/04/2019 FINDINGS: No fracture, dislocation or periosteal reaction.Left total knee prosthesis in place. No ra diographic evidence for loosening. Cortical irregularity along the lateral margin of the lateral femo ral condyle matches prior imaging. Acute fracture is unlikely. No measurable joint effusion. No soft tissue abnormality. IMPRESSION: Total knee prosthesis in place with no acute bone or joint finding.
--- NOTE | 2020-05-28 11:59 | RAD REPORT ---
EXAM DESCRIPTION: RAD - Knee Right 2 View - 05/28/2020 11:52 am CLINICAL HISTORY: PAIN, multiple falls COMPARISON: Knee Right 3 View dated 10/12/2019; Knee Right 2 View dated 04/04/2019 FINDINGS: No fracture, dislocation or periosteal reaction.Right total knee prosthesis in place. No r adiographic evidence for loosening. Cortical irregularity along the lateral margin of the lateral fem oral condyle matches prior imaging and is similar in appearance to the left knee. No acute bone findi ngs seen. No new soft tissue calcification. Contusion or edema change seen in the soft tissues of the distal thigh, above the knee joint level. No foreign body. IMPRESSION: Degenerative and postsurgical changes are noted to the right knee with no acute bone or joint finding. Contusion or edema in the soft tissues of the anterior lower thigh.
[2020-05-28 12:09] LABS: Bilirubin Total 0.4 mg/dL (0.2-1.0); Potassium 4.5 mmol/L (3.5-5.1); Protein, Total 6.9 g/dL (6.4-8.2)
[2020-05-28 14:20] LABS: Urine Blood 1+ (NEG); Urine Glucose NEGATIVE (NEG); Urine Protein 2+ (NEG)
[2020-05-28] MEDS ORDERED: levoFLOXacin 750 MG TAB ONE (14:50)
--- NOTE | 2020-05-28 15:49 | ER ---
Nurse's Notes [facility] Name: Macrina Mason Age: 74 yrs Sex: Female : 1945 Arrival Date: 05/28/2020 Time: 10:42 Bed 8 Private MD: Diagnosis: Acute cystitis;fatigue Presentation: 05/28 10:47 Chief complaint: Patient states: Bilateral knee pain and bruising after multiple falls ss over the past few weeks. Pt reports that she has been trying to get more help at home VIA home health because her is unable to help her transfer to bedside commode very well and has been unsuccessful doing so. pt states, "I've been calling and calling and calling and we just can't get help from home health." Pt was seen in ED last week for similar complaint. Coronavirus screen: Client denies travel out of the [place] in the last 14 days. Ebola Screen: Patient denies exposure to infectious person. Patient denies travel to an Ebola-affected area in the 21 days before illness onset. Initial Sepsis Screen: Does the patient meet any 2 criteria? No. Patient's initial sepsis screen is negative. Does the patient have a suspected source of infection? No. Patient's initial sepsis screen is negative. Risk Assessment: Do you want to hurt yourself or someone else? Patient reports no desire to harm self or others. Onset of symptoms is unknown. 10:47 Method Of Arrival: EMS: [facility] 10:47 Acuity: [facility] 3 ss Historical: - Allergies: 10:57 PENICILLINS; ss - Home Meds: 15:58 aspirin 325 mg Oral tab 1 tab once daily [Active]; furosemide 40 mg Oral tab 1 tab once ss daily [Active]; gabapentin 800 mg Oral tab 1 tab 3 times per day [Active]; hydrocodone-acetaminophen 5-325 mg Oral tab 1 tab every 6 hours [Active]; levothyroxine 25 mcg tab 1 tab once daily [Active]; Metoprolol Tartrate Oral [Active]; olanzapine 2.5 mg Oral tab 1 tabs twice a day [Active]; propranolol 20 mg Oral tab 1 tab 2 times per day [Active]; - PMHx: 10:57 ADD/ADHD; allergies; Back pain; Bipolar disorder; COPD; DVT; Schizophrenia; UTI; ss - Immunization history:: Adult Immunizations up to date. - Social history:: Smoking status: Patient denies any tobacco usage or history of. Screenin:57 Abuse screen: Denies threats or abuse. Denies injuries from another. Nutritional ss screening: No deficits noted. Tuberculosis screening: Never had TB. Fall Risk Fall in past 12 months (25 points). No secondary diagnosis (0 pts). No IV (0 pts). Ambulatory Aid- None/Bed Rest/Nurse Assist (0 pts). Gait- Normal/Bed Rest/Wheelchair (0 pts) Mental Status- Oriented to own ability (0 pts). Assessment: 10:57 General: Appears uncomfortable, Behavior is cooperative, anxious, Pt reports over the ss past few weeks she has been falling while attempting to transfer herself to bedside commode. Pt reports that despite multiple attempts to get more help at home via home health she has been denies. Pt states, "I just need to be in a detention. I just can't get strong enough to do anything" . Pain: Complains of pain in bilateral knees Pain currently is 9 out of 10 on a pain scale. Quality of pain is described as aching, tender, Pain began x weeks Is continuous. Neuro: Level of Consciousness is awake, alert, obeys commands, Oriented to person, place, time, situation. Cardiovascular: Capillary refill < 3 seconds is brisk in bilateral fingers. Respiratory: Airway is patent Respiratory effort is even, unlabored, Respiratory pattern is regular, symmetrical. GI: Patient currently denies diarrhea, nausea, vomiting. : No signs and/or symptoms were reported regarding the genitourinary system. EENT: Oral mucosa is moist. Derm: Bruising that is multiple bruises to bilateral knees in various stages of healing. . Musculoskeletal: Circulation, motion, and sensation intact. Range of motion: intact in all extremities, Swelling absent. 11:30 Reassessment: PT to CT now via stretcher. ss 12:30 Reassessment: Patient appears in no apparent distress at this time. Patient and/or ss family updated on plan of care and expected duration. Pain level reassessed. Pt is resting with eyes closed. Lights dimmed for comfort. Call light remains within reach. 13:30 Reassessment: Patient appears in no apparent distress at this time. No changes from ss previously documented assessment. awaiting for Autumn Randle, [facility] member services representative to call back. 14:29 Reassessment: Pt has been accepted at [facility] in [place]. Awaiting EMS for ss transportation. 15:37 Reassessment: Patient appears in no apparent distress at this time. assisted patient ss onto bedside commode. Pt voided x 1. Now back in bed on monitors. Vital Signs: 10:47 BP 149 / 62; Pulse 57; Resp 16; Temp 97.0(TE); Pulse Ox 97% on R/A; Weight 99.79 kg; ss Height 5 ft. 10 in. (177.80 cm); Pain 9/10; 14:30 BP 139 / 51; Pulse 58; Resp 16; Pulse Ox 97% on R/A; ss 15:36 BP 122 / 52; Pulse 77; Resp 16; Pulse Ox 98% on R/A; ss 10:47 Body Mass Index 31.57 (99.79 kg, 177.80 cm) ED Course: 10:42 Patient arrived in ED. ss 10:48 Rachel Vann, RN is Primary Nurse. aa5 10:55 Triage completed. ss 10:57 Arm band placed on right wrist. ss 10:57 Patient has correct armband on for positive identification. Bed in low position. Call ss light in reach. Side rails up X 1. Pulse ox on. NIBP on. 11:08 Jalen Gonzalez MD is Attending Physician. ps1 11:[address] via stretcher. jg6 11:29 Amaya Mckeon, [place] is Primary Nurse. ss 11:30 Inserted saline lock: 22 gauge in right antecubital area, using aseptic technique. ss Blood collected. 11:34 CT Head C Spine In Process Unspecified. EDMS 11:37 CT completed. Patient tolerated procedure well. Patient moved to radiology. jj2 11:47 Knee Left 2 View XRAY In Process Unspecified. EDMS 11:47 Knee Right 2 View XRAY In Process Unspecified. EDMS 13:53 Urine collected: straight cath specimen, cloudy, Amount Returned: 320mL. ss 15:58 No provider procedures requiring assistance completed. IV discontinued, intact, ss bleeding controlled, No redness/swelling at site. Pressure dressing applied. Administered Medications: 14:42 Drug: LevaQUIN 750 mg Route: PO; ss 15:59 Follow up: Response: No adverse reaction Outcome: 15:48 Discharge ordered by . ps1 15:58 Discharged to [facility] 15:58 Condition: good 15:58 Discharge instructions given to patient, EMS, Instructed on discharge instructions, follow up and referral plans. medication usage, Prescriptions given X 1. 15:59 Patient left the ED. Signatures: Dispatcher [employer] EDMS Jordan Peña jj2 Rachel Vann RN RN aa5 Amaya Mckeon RN RN ss Singer, Phillip, MD MD ps1 Oscar, Juany [email or web address]
--- NOTE | 2020-05-28 15:49 | EDPHYS ---
Physician Documentation [facility] Name: Macrina Mason Age: 74 yrs Sex: Female : 1945 Arrival Date: 05/28/2020 Time: 10:42 Bed 8 Private MD: ED Physician Jalen Gonzalez HPI: 05/28 11:14 This 74 yrs old Female presents to ER via EMS with complaints of Knee Pain. ps1 11:14 patient has had multiple falls over last couple of months. Patient states that she has ps1 been seen and evaluated multiple times for the same without resolution. No cause identified per patient. Does not have the strength to walk. States that she has bilateral L>R knee pain. Multiple contusions with different stages of healing. . Historical: - Allergies: 10:57 PENICILLINS; ss - Home Meds: 15:58 aspirin 325 mg Oral tab 1 tab once daily [Active]; furosemide 40 mg Oral tab 1 tab once ss daily [Active]; gabapentin 800 mg Oral tab 1 tab 3 times per day [Active]; hydrocodone-acetaminophen 5-325 mg Oral tab 1 tab every 6 hours [Active]; levothyroxine 25 mcg tab 1 tab once daily [Active]; Metoprolol Tartrate Oral [Active]; olanzapine 2.5 mg Oral tab 1 tabs twice a day [Active]; propranolol 20 mg Oral tab 1 tab 2 times per day [Active]; - PMHx: 10:57 ADD/ADHD; allergies; Back pain; Bipolar disorder; COPD; DVT; Schizophrenia; UTI; ss - Immunization history:: Adult Immunizations up to date. - Social history:: Smoking status: Patient denies any tobacco usage or history of. ROS: 11:14 Eyes: Negative for injury, pain, redness, and discharge, Cardiovascular: Negative for ps1 chest pain, palpitations, and edema, Respiratory: Negative for shortness of breath, cough, wheezing, and pleuritic chest pain, Abdomen/GI: Negative for abdominal pain, nausea, vomiting, diarrhea, and constipation, Back: Negative for injury and pain. 11:14 Constitutional: Positive for fatigue, malaise. 11:14 MS/extremity: Positive for contusion, decreased range of motion, pain, of the right leg and left leg. 11:14 Skin: Negative for cellulitis, diaphoresis. Exam: 11:19 Constitutional: This is a well developed, well nourished patient who is awake, alert, ps1 and in no acute distress. Head/Face: Normocephalic, atraumatic. Eyes: Pupils equal round and reactive to light, extra-ocular motions intact. Lids and lashes normal. Conjunctiva and sclera are non-icteric and not injected. Cardiovascular: Regular rate and rhythm. No gallops, murmurs, or rubs. Normal PMI, no JVD. No pulse deficits. Respiratory: Lungs have equal breath sounds bilaterally, clear to auscultation and percussion. No rales, rhonchi or wheezes noted. No increased work of breathing, no retractions or nasal flaring. Abdomen/GI: Soft, non-tender, with normal bowel sounds. No distension or tympany. No guarding or rebound. No evidence of tenderness throughout. 11:19 Musculoskeletal/extremity: Extremities: grossly normal except: noted in the left leg: contusion, decreased ROM, noted in the right leg: contusion, decreased ROM, pain. Vital Signs: 10:47 BP 149 / 62; Pulse 57; Resp 16; Temp 97.0(TE); Pulse Ox 97% on R/A; Weight 99.79 kg; ss Height 5 ft. 10 in. (177.80 cm); Pain 9/10; 14:30 BP 139 / 51; Pulse 58; Resp 16; Pulse Ox 97% on R/A; ss 15:36 BP 122 / 52; Pulse 77; Resp 16; Pulse Ox 98% on R/A; ss 10:47 Body Mass Index 31.57 (99.79 kg, 177.80 cm) MDM: 11:29 Patient medically screened. ps1 05/28 11:14 Order name: CBC with Diff; Complete Time: 11:59 ps1 05/28 11:14 Order name: CMP; Complete Time: 12:10 ps1 05/28 12:11 Interpretation: Abnormal: CRE 2.10; Chronic. ps1 05/28 11:14 Order name: CT Head C Spine; Complete Time: 11:59 ps1 05/28 13:43 Order name: Urine Microscopic Only iw 05/28 13:53 Order name: Urine Dipstick--Ancillary (enter results) bd 05/28 13:54 Order name: Urine Dipstick-Ancillary EDMS 05/28 11:14 Order name: Urine Dipstick-Ancillary (obtain specimen); Complete Time: 13:52 ps1 05/28 11:14 Order name: Knee Left 2 View XRAY; Complete Time: 12:04 ps1 05/28 11:14 Order name: Knee Right 2 View XRAY; Complete Time: 12:05 ps1 Administered Medications: 14:42 Drug: LevaQUIN 750 mg Route: PO; ss 15:59 Follow up: Response: No adverse reaction ss Disposition: 05/28/20 15:48 Discharged to Home. Impression: Acute cystitis, fatigue. - Condition is Stable. - Discharge Instructions: Urinary Tract Infection, Adult. - Prescriptions for Levaquin 750 mg Oral Tablet - take 1 tablet by ORAL route once daily for 5 days; 10 tablet. - SBAR form, Medication Reconciliation Form, Thank You Letter, Antibiotic Education, Prescription Opioid Use form. - Follow up: Private Physician; When: As needed; Reason: Further diagnostic work-up, Re-evaluation by your physician. Follow up: Emergency Department; When: As needed; Reason: Fever > 102 F, Worsening of condition. - Problem is an ongoing problem. - Symptoms are unchanged. Signatures: Dispatcher [employer] EDMS Amaya Mckeon RN RN ss Jalen Gonzalez MD MD ps1 Corrections: (The following items were deleted from the chart) 15:59 15:48 05/28/2020 15:48 Discharged to Home. Impression: Acute cystitis; fatigue. ss Condition is Stable. Forms are SBAR form, Medication Reconciliation Form, Thank You Letter, Antibiotic Education, Prescription Opioid Use. Follow up: Private Physician; When: As needed; Reason: Further diagnostic work-up, Re-evaluation by your physician. Follow up: Emergency Department; When: As needed; Reason: Fever > 102 F, Worsening of condition. Problem is an ongoing problem. Symptoms are unchanged. ps1
[2020-05-28 16:14] LABS: Urine Bacteria 20-50 /HPF (<20); Urine RBC 20-50 /HPF (NONE SEEN)
[2020-05-28 16:15] LABS: Urine Amorphous Sediment 2+ /HPF (NONE SEEN); Urine Culture Reflex Order REFLEXED
[2020-05-28 20:43] VITALS: TEMP 97
[2020-05-28 20:51] VITALS: BP 122/52; O2SAT 98
== END 2020-05-28 15:59 | disposition home or self-care (01) ==
LOC: ER 10:39
DX: N30.00 Acute cystitis without hematuria (principal); M25.562 Pain in left knee; M25.561 Pain in right knee; J44.9 Chronic obstructive pulmonary disease, unspecified; F20.9 Schizophrenia, unspecified; Z86.718 Personal history of other venous thrombosis and embolism; Z79.82 Long term (current) use of aspirin; Z88.0 Allergy status to penicillin
CPT/HCPCS: 36415; 70450; 72125; 80053; 81003; 81015; 85025; 87077; 87086; 87088; 87186; 99284

== ENCOUNTER 2020-06-14 12:35 | Emergency (ER) | payer OTHER, BC ==
[2020-06-14] MEDS ORDERED: ACETAMINOPHEN 325 MG TABLET ONE (13:08)
--- NOTE | 2020-06-14 13:09 | RAD REPORT ---
EXAM DESCRIPTION: CT - CTHCSPWOC - 06/14/2020 12:55 pm CLINICAL HISTORY: fall from wheelchair;Pain COMPARISON: Head C Spine Mpr Wo Con dated 05/28/2020 TECHNIQUE: Axial 5 mm thick images of the head were obtained. Axial 2 mm thick images of the cervic al spine were obtained with sagittal and coronal reconstruction images generated and reviewed. All CT scans are performed using dose optimization technique as appropriate and may include automated exposure control or mA/KV adjustment according to patient size. FINDINGS: No intracranial hemorrhage, mass, edema or acute intracranial finding. No suspicion for ac eklutna infarction. No extra-axial fluid collections. Mastoid air cells are clear. Acute and chronic righ t maxillary sinusitis. No globe or orbit abnormality seen. Patient has hyperostosis frontalis interna . Small left forehead scalp hematoma present. No foreign body. Patient has mild atrophy and chronic i schemic change. Ventricles are in proportion to the volume loss. Patient has multiple left-sided calcified and noncalcified thyroid nodules up to approximately 15 mm in size. This assessment is not complete on this examination. No clear change. Follow-up can be obtai mando as warranted. Cervical bodies are normal in height. Accentuated cervical lordosis noted with upper thoracic kyphosi s that is partially imaged. No subluxation abnormalities. Accentuated lordosis results in narrowing o f the posterior disc spaces at all levels. Endplate spurring changes are present. No fracture or acut e bony abnormality. No pathologic bone process. Multilevel facet joint degenerative change present. B cheli foraminal encroachment present at C3-4, severely at C4-5, C5-6 and C6-7. Central canal detail is inherently limited. No paraspinal mass or hematoma. IMPRESSION: Negative CT head examination for acute or significant finding. Intracranial findings are stable from May 28. Advanced cervical spine degenerative change primarily in the facet joints. No fracture or acute findi ng. No significant change from May 28.
--- OUTSIDE RECORDS SUMMARY | 2020-06-14 13:11 | XMS REPORT ---
[...] Date Lisinopril [facility] 95769345640 2.5 MG Orally Active 1 t ablet twice a day Carvedilol [facility] 95105158768 6.25 MG Orally Active 1 tablet Twice a day Zofran ND 66868373144 4 MG Orally Jun 14, Active 1 tablet every 12 hrs 2018 prn nausea Levothyroxine ND 82301732252 25 MCG Orally Oct 24, Active 1 tablet in Sodium Once a day 2019 the morning on an empty stomach Simethicone ND 26438985372 80 MG Orally Active 1 t ablet Four times a after meals day and at bedtime as needed Divalproex ND 39882852574 250 MG Orally Active 3 t ablets Sodium Twice a day Furosemide [facility] 40225895714 40 MG Active TAKE 1 TA BLET BY MOUTH EVERY DAY Duloxetine HCl ND 84503102110 60 MG Orally Active 1 capsule Once a day Comp Air ND 56890812158 - every 6 Jun 16, Active as direc james Compressor hours as needed 2018 Nebulizer Benadryl Allergy ND 16175387502 25 MG Orally Active 1 tablet as every 8 hrs needed Santyl ND 61799590309 250 UNIT/GM January Active 1 applic ation Externally 06, 04, nickel twice a day 2019 2019 thickness Flonase ND 66417317119 50 MCG/DOSE December Active 1 spray in Nasally Twice a 06, each nos tril day 2018 Metoprolol ND 01354435762 25 MG Active TAKE 1 TA BLET Succinate ER BY MOUTH TWICE DAILY AT 6AM AND 6PM Topiramate ND 36298954404 100 MG Active TAKE 1 TA BLET BY MOUTH TWICE DAILY Ipratropium-Albu ND 74556401750 0.5-2.5 (3) Active 3 ml terol MG/3ML Inhalation every 6 hrs Imitrex ND 15265536804 50 MG Orally Sept Active 1 table t as Once a day december 01, needed repeat dose 1 2018 dose in 2 hours ( max 2 doses in 24 hours) Calcium NDC 0 Oral Active 1 tab Carbamazepine ND 27772500789 200 MG Orally Active 1 tablet once a day BuPROPion HCl ER ND 24735146246 300 MG Orally Activ e 1 tablet in (XL) Once a day the morning Gabapentin ND 08725916270 800 MG Orally Active 1 t ablet three times a day Cipro ND 00149816602 500 MG Orally Mar Active 1 tabl et every 12 hrs , , 2019 2019 Levothyroxine ND 37594875022 200 MCG Orally Active 1 tablet on Sodium Once a day an empty stomach in the morning Atorvastatin ND 33981322734 20 MG Orally Active 1 tablet Calcium Once a day Diclofenac ND 90061980627 75 MG Orally Active 1 ta blet with Sodium Twice a day food or milk Donepezil HCl ND 94834931866 10 MG Oral Active 1 t ablet at twice a day bedtime Protonix ND 50289606533 40 MG Orally Active 1 tabl et Once a day Ondansetron HCl ND 11896117800 4 MG Orally Active 1 tablet every 6 hrs Oxybutynin [facility] 27316010544 5 MG Oral twice Active 1 tablet Chloride ER a day Folic Acid-Vit [facility] [address]01-[address]03 0.8-10-0.115 MG Activ e 1 tablet B6-Vit B12 Orally Once a day Memantine HCl [facility] 77316250821 10 MG Orally Active 1 tablet Twice a day Trazodone HCl [facility] 11002511090 50 MG Oral Active not defined Claritin [facility] 79316578877 10 MG Orally Melissa Active 1 tabl et Once a day 2018 Imodium A-D [facility] 40175836084 2 MG Orally Active 1 ta blet as Four times a needed day Melatonin [facility] 73802201588 3 MG Orally Active 1 tabl et at Once a day bedtime as needed with food Vitamin D [facility] 66005645072 1000 UNIT Active 1 tablet Orally Once a day Zantac [facility] 04858495774 150 MG Orally Active 1 tabl et at Once a day bedtime Results No Known Results Summary Purpose eClinicalWorks Submission
--- OUTSIDE RECORDS SUMMARY | 2020-06-14 13:11 | XMS REPORT | Continuity of Care Document ---
:1945 Author Organization [facility] t Address [address] [place] [address] Care Team Providers Name Role Phone Doctor Unassigned, Name Attending Clinician Unavailable Payers Payer Name Policy Type Policy Number Effective Date Expiration Date S ource Problems This patient has no known problems. Allergies, Adverse Reactions, Alerts Allergy Allergy Status Severity Reaction(s) Onset Inactive Treating Comm ents Source Name Type Date Date Clinician No Known DA Active U 2019-07 [facility]04 [facility] s 00:00: [place] 00 [facility] No Known DA Active U 0 [facility] Allergie 2-20 [place] s 00:00: [facility] 00 are [place] Medications Ordered Filled Start Stop Current Ordering Indication Dosage Frequency Signature Comments Components Source Medication Medication Date Date Medication? Clinician (SIG) Name Name Cipro Cipro 2020- Yes Na [facility]leg[facility] [address] [facility]17 [facility]00 [facility] 00 :00 [facility] Santyl Santyl 2020- No [facility] 1 [facility] applicatio [facility] - 00:[facility]: 00:00 n nickel Memoria 00 :00 thickness l [facility] Zofran Zofran 2018-07 Yes Na [place] [address] [facility] - 00:[facility]: Memoria 00 l [facility] Comp Air Comp Air 2018-07 Yes [facility] as [facility] Compressor Compressor 2-13 directed [facility] - Nebulizer Nebulizer 00:00: Mem oria 00 l [facility] Levothyroxi Levothyroxi 2018-07 Yes Na [place] [address] [facility] ne Sodium ne Sodium 0-24 in the [place] es - 00:00: morning on Memoria 00 an empty l stomach [facility] Imitrex Imitrex Yes Na [place] [address] [facility] 9-30 as needed [facility] - 00:00: Memoria 00 l [facility] Flonase Flonase Yes Na A[place]re [address] [facility] 6[facility]06 each [facility] - 00:00: nostril Memoria 00 l [facility] Claritin Claritin Yes Na [place]re [address] [facility] 6-06 [facility] - 00:00: Memoria 00 l [facility] Divalproex Divalproex Yes Na Alegre [address] [facility] [address] Sodium Sodium [facility] Lisinopril Lisinopril Yes Na [place]re [address] [facility] Carvedilol Carvedilol Yes Na [place] [address] [facility] Simethicone Simethicone Yes [place] [address] [facility] after [facility] - meals and Memoria at bedtime l as needed [facility] Furosemide Furosemide Yes Na Alegre TAKE [address] [facility] TABLET BY [facility] - MOUTH Memoria EVERY DAY l [facility] Duloxetine Duloxetine Yes Na Alegre [address] [facility] HCl HCl [facility] - [facility]oria l [facility] Benadryl Benadryl Yes Na [place] [address] [facility] Allergy Allergy as needed Luke s - Memoria l [facility] Metoprolol Metoprolol Yes Na Alegre TAKE [address] [facility] Succinate Succinate TABLET BY [facility] - ER ER MOUTH Memoria TWICE l DAILY AT Outpati 6AM AND ent 6PM Clinics Topiramate Topiramate Yes Na Alegre TAKE [address] [facility] TABLET BY [facility] - MOUTH Memoria TWICE l DAILY [facility] Ipratropium Ipratropium Yes Na Alegre [address] [facility] -Albuterol -Albuterol [facility] - Memoria l [facility] Calcium Calcium Yes [facility] Carbamazepi Carbamazepi Yes Na Alegre [address] [facility] ne ne [facility] BuPROPion BuPROPion Yes Na Alegre [address] [facility] HCl ER (XL) HCl ER (XL) in the [facility] - morning [facility]oria l [facility] Gabapentin Gabapentin Yes Na A[place] [address] [facility] Levothyroxi Levothyroxi Yes Na [place] [address] [facility] ne Sodium ne Sodium on an Luke s - empty Memoria stomach in l the [facility] Clinics Atorvastati Atorvastati Yes Na Alegre [address] [facility] n Calcium n Calcium [facility] Diclofenac Diclofenac Yes Na [place] [address] [facility] [address] Sodium Sodium with food [facility] - or milk Memoria l [facility] Donepezil Donepezil Yes Na A[place]re [address] [facility] [facility] HCl [facility] Protonix Protonix Yes Na Alegre [address] [facility] Ondansetron Ondansetron Yes Na Alegre [address] [facility] HCl [facility] Oxybutynin Oxybutynin Yes Na Alegre [address] [facility] Chloride ER Chloride ER L [facility] - Memoria l [facility] Folic Folic Yes Na Alegre [address] [facility] [address] Acid-Vit Acid-Vit [facility] - B6-Vit B12 B6-Vit B12 Mem oria l [facility] Memantine Memantine Yes Na [place] [address] [facility] [address] HCl HCl [facility] Trazodone Trazodone Yes Na Alegre not [facility] HCl HCl defined [facility] Imodium A-D Imodium A-D Yes Na A[place]re [address] [facility] as needed [facility] Melatonin Melatonin Yes Na Alegre [...] Procedure Date / Time Performed Performing Clinician [facility] e [id number] 2020-04-22 00:00:00 ENCPL [id number] 2020-04-22 00:00:00 ENCPL [id number] 2020-04-22 00:00:00 ENCPL [id number] 2020-04-22 00:00:00 ENCPL [id number] 2020-04-22 00:00:00 ENCPL [id number] 2020-04-19 00:00:00 ENCPL [id number] 2020-04-19 00:00:00 ENCPL [id number] 2020-04-19 00:00:00 ENCPL [id number] 2020-04-19 00:00:00 ENCPL [id number] 2020-04-19 00:00:00 ENCPL [id number] 2020-04-19 00:00:00 ENCPL Encounters Start End Encounter Admission Attending Care Care Encounter Source Date/Time Date/Time Type Type Clinicians Facility Department ID 2020-05-16 2020-05-16 Orders Doctor GENOVEVA [id number] 00:00:00 00:00:00 Only Unassigned, SHONDA [id number] [place] [facility] [id number] 2020-05-11 2020-05-11 Outpatient [facility] [id number] 2020-05-09 2020-05-09 Outpatient [facility] [id number] [facility] 2020-05-06 2020-05-06 Outpatient [facility] [id number] [facility] 2020-03-28 2020-03-28 Outpatient [facility] [id number] [facility] 2020-03-17 2020-03-17 [facility] [id number] [facility] 15:04:00 15:04:00 [place] [employer] [place] - Drive [facility] Medicine l Medicine Outpati ent Clinics 2020-03-08 2020-03-08 [facility] [id number] 16:56:00 16:56:00 [place] [employer] [place] - Drive [facility] l Medicine Outpati ent Clinics 2020-02-09 2020-02-09 [facility] [id number] 16:59:00 16:59:00 [place] [employer] [place] s - Drive [facility] l Medicine Outpati ent Clinics 2020-02-05 2020-02-05 [facility] [id number] 17:16:00 17:16:00 [place] [employer]erd[employer] s - Drive [facility] l Medicine Outpati ent Clinics 2020-01-23 2020-01-23 [facility] [id number] 10:32:00 10:32:00 [place] s - Drive [facility] Medicine Outpati ent Clinics 2020-01-15 2020-01-15 [facility] [id number] 09:59:00 09:59:00 [place] [employer] Lu[employer]erd[employer] s - Drive [facility] l Medicine Outpati ent Clinics 2020-01-10 2020-01-10 [facility] [id number] 14:25:00 14:25:00 [place] [employer] Luke s - Drive [facility] Medicine Medicine Outpati ent Clinics 2020-01-08 2020-01-08 [facility] [id number] 14:20:00 14:20:00 [place] s - Drive [facility] l Medicine Outpati ent Clinics 2020-01-07 2020-01-07 [facility] [id number] 19:54:00 19:54:[address] [facility] [employer] s - Road [facility] l Medicine Outpati ent Clinics 2020-01-04 2020-01-04 [facility] [id number] 13:37:00 13:37:00 [place] [employer] Luke s - Drive [facility] Medicine Medicine Outpati ent Clinics 2019-09-13 2019-09-13 [facility] [id number] 09:14:00 09:14:00 [place] [employer] Lu[employer]erd[employer] s - Drive [facility] Medicine l Medicine Outpati ent Clinics 2019-07-01 2019-07-01 [facility] [id number] 15:38:00 15:38:00 [place] [employer] s - Drive [facility] Medicine l Medicine Outpati ent Clinics 2019-06-27 2019-06-27 [facility] [id number] 10:00:00 10:00:00 [place] [employer] s - Drive [facility] l Medicine Outpati ent Clinics 2019-06-21 2019-06-21 [facility] [id number] [address] 14:45:00 14:45:00 [place] [employer] s - Drive [facility] Medicine Outpati ent Clinics 2019-06-16 2019-06-16 [facility] [id number] 15:42:00 15:42:00 [place] [employer] s - Drive [facility] Medicine Medicine Outpati ent Clinics 2019-06-14 2019-06-14 [facility] [id number] 10:40:00 10:40:00 [place] - Drive [facility] Medicine Outpati ent Clinics 2019-06-06 2019-06-06 [facility] [id number] 11:00:00 11:00:00 [place] [employer] s - Drive [facility] Medicine l Medicine Outpati ent Clinics 2019-06-05 2019-06-05 [facility] [id number] 16:47:00 16:47:00 [place] [employer] s - Drive [facility] Medicine l Medicine Outpati ent Clinics 2019-05-12 2019-05-12 [facility] [id number] 15:40:00 15:40:00 [place] [employer] s - Drive [facility] Medicine Outpati ent Clinics 2019-04-27 2019-04-27 [facility] [id number] 16:10:00 16:10:00 [place] - [employer] [facility] Medicine Outpati ent Clinics 2019-04-27 2019-04-27 [facility] [id number] 11:20:00 11:20:00 [place] - Drive [facility] Outpati ent Clinics 2019-04-03 2019-04-03 [facility] [id number] 12:04:00 12:04:00 [place] - [employer] [facility] Medicine Outpati ent Clinics 2019-03-28 2019-03-28 [facility] [id number] 13:40:00 13:40:00 [place] - [employer] [facility] Outpati ent Clinics 2019-03-21 2019-03-21 [facility] [id number] 15:40:00 15:40:00 [place] - [employer] [facility] Outpati ent Clinics 2019-03-14 2019-03-14 [facility] [id number] 13:13:00 13:13:00 [place] - [employer] [facility] Outpati ent Clinics 2019-03-13 2019-03-13 [facility] [id number] 14:00:00 14:00:00 t [employer] [facility] Outpati ent Clinics 2018-12-08 2018-12-08 [facility] [id number] 15:00:00 15:00:00 t [facility] ent Clinics Results Test Description Test Time [...] = MDIFF) NO DIFF/SCN CRITERIA CBC W/AUTO [id number] 12:23:00 Test Item Value Reference Range Interpretation [...] (test code NO DIFF/SCN CRITERIA = MDIFF) [id number] 15:11:00 Test Item Value Reference Range Interpretation Comments TRANSFERRRIN (test code 193 mg/dL 192-364 Perf ormed At: BN = TRANSF) Lab[address] [id number] ZAMORA Ph:[phone] GLUCOSE BEDSIDE [id number] 13:01:00 Test Item Value Reference Range Interpretation Comments GLUCOSE BEDSIDE TESTING (test code 101 mg/dL 70-110 N = GLUBED) GLUCOSE BEDSIDE [id number] 08:35:00 Test Item Value Reference Range Interpretation Comments GLUCOSE BEDSIDE TESTING (test code 101 mg/dL 70-110 N = GLUBED) GLUCOSE BEDSIDE [id number] 19:42:00 Test Item Value Reference Range Interpretation Comments GLUCOSE BEDSIDE TESTING (test code = 93 mg/dL 70-110 N GLUBED) GLUCOSE BEDSIDE [id number] 16:13:00 Test Item Value Reference Range Interpretation Comments GLUCOSE BEDSIDE TESTING (test code = 96 mg/dL 70-110 N GLUBED) GLUCOSE BEDSIDE [id number] 12:55:00 Test Item Value Reference Range Interpretation Comments GLUCOSE BEDSIDE TESTING (test code 104 mg/dL 70-110 N = GLUBED) CBC W/AUTO [id number] 12:42:00 Test Item Value Reference Range Interpretation [...] 35 % calc 12-57 N FESAT) VITAMIN [id number] 08:58:00 Test Item Value Reference Range Interpretation Comments VITAMIN B12 (test code = VITB12) 479 PG/ML 183-986 N FOLIC [id number] 08:58:00 Test Item Value Reference Range Interpretation Comments FOLIC ACID (test code = FOL) 7.00 NG/ML 3.10-17.50 N [id number] 08:58:00 Test Item Value Reference Range Interpretation Comments FERRITIN (test code = TIO) 154.1 NG/ML 3.0-105.0 H GLUCOSE BEDSIDE [id number] 08:22:00 Test Item Value Reference Range Interpretation Comments GLUCOSE BEDSIDE TESTING (test code 107 mg/dL 70-110 N = GLUBED) BASIC METABOLIC [id number] 06:11:00 Test Item Value Reference Range Interpretation [...] CA) 8.8 MG/DL 8.5-10.1 N GLUCOSE BEDSIDE [id number] 20:03:00 Test Item Value Reference Range Interpretation Comments GLUCOSE BEDSIDE TESTING (test code 124 mg/dL 70-110 H = GLUBED) CBC W/AUTO [id number] 08:57:00 Test Item Value Reference Range Interpretation [...] NT WITH AUTO DIFFERENTI AL. CBC W/AUTO [id number] 08:57:00 Test Item Value Reference Range Interpretation [...] DIFF REQUIRED NO DIFF/SCN CRITERIA SLIDE R ROHAN (test code = MDIFF) CONSISTA NT WITH AUTO DIFFERENTI AL. RBC [id number] 08:57:00 Test Item Value Reference Range Interpretation Comments PLATELET ESTIMATE DECREASED THOUSAND ADEQUATE PLAT ELET COUNT (test code = REVIEWED AND PLTEST) VERIFIED. PLATELET MORPHOLOGY NORMAL (test code = PLTMORPH) CBC W/AUTO [id number] 08:57:00 Test Item Value Reference Range Interpretation [...] NT WITH AUTO DIFFERENTI AL. GLUCOSE BEDSIDE [id number] 07:43:00 Test Item Value Reference Range Interpretation Comments GLUCOSE BEDSIDE TESTING (test code = 97 mg/dL 70-110 N GLUBED) BASIC METABOLIC [id number] 07:02:00 Test Item Value Reference Range Interpretation [...] code = CA) 7.8 MG/DL 8.5-10.1 L [id number] 07:02:00 Test Item Value Reference Range Interpretation Comments MAGNESIUM (test code = MAG) 1.5 MG/DL 1.8-2.4 L CBC W/AUTO [id number] 06:50:00 Test Item Value Reference Range Interpretation [...] code = DIFF/SCN CRITERIA MDIFF) GLUCOSE BEDSIDE [id number] 20:58:00 Test Item Value Reference Range Interpretation Comments GLUCOSE BEDSIDE TESTING (test code = 90 mg/dL 70-110 N GLUBED) GLUCOSE BEDSIDE [id number] 18:52:00 Test Item Value Reference Range Interpretation Comments GLUCOSE BEDSIDE TESTING (test code = 92 mg/dL 70-110 N GLUBED) BASIC METABOLIC [id number] 17:20:00 Test Item Value Reference Range Interpretation [...] = CA) 9.2 MG/DL 8.5-10.1 N CORTISOL [id number] 15:12:00 Test Item Value Reference Range Interpretation Comments CORTISOL AM (test code 9.8 ug/dL 6.2-19.4 Perfo rmed At: HD = CORTAM) [facility] [id number] stacie Grossman MD Ph:[phone] GLUCOSE BEDSIDE [id number] 14:56:00 Test Item Value Reference Range Interpretation Comments GLUCOSE BEDSIDE TESTING (test code 100 mg/dL 70-110 N = GLUBED) THYROID STIMULATING [id number] 13:24:00 Test Item Value Reference Range Interpretation Comments THYROID STIMULATING HORMONE 6.680 mcIU/ML 0.340-4.820 H (test code = TSH) - CT ABD PELVIS [id number] 11:35:00 [facility] 1945 Age[facility] 74 / F [address] Unit #: [id number] Loc: [place] [address] Phys: Ursula Do MD Acct: [id number] Dis Date: Status: ADM IN PHONE #: [phone] Exam Date: 04/11/2020 1115 FAX #: Reason: abdominal pain EXAMS: CPT: [id number] CT ABD PELVIS W/CONT 27198 HISTORY: abdominal pain TECHNIQUE: Helical imaging of [...] 1 Signed Report (CONTINUED) Name: SHANTEL LAURENT [facility] : 1945 Age/S: 74 / F [address] [facility] [address] Unit #: [id number] Loc: [place] [address] Phys: Ursula Do MD Acct: [id number] Dis Date: Status: ADM IN PHONE #: [phone] Exam Date: 04/11/2020 1115 FAX #:Reason: abdominal pain EXAMS: CPT: [id number] CT ABD PELVIS W/CONT 63005 <Continued> No significant bone lesions. IMPRESSION: 1. [...] Moises(R)(CT) CTDI: DLP: Trnscb Date/Time: 04/11/2020 (1135) [email or web address] Orig Print D/T: S: 04/11/2020 (3792) PAGE 2 Signed ReportGLUCOSE BEDSIDE [id number] 08:00:00 Test Item Value Reference Range Interpretation Comments GLUCOSE BEDSIDE TESTING (test code 152 mg/dL 70-110 H = GLUBED) CBC W/AUTO [id number] 06:43:00 Test Item Value Reference Range Interpretation [...] code NO DIFF/SCN CRITERIA = MDIFF) RBC [id number] 06:43:00 Test Item Value Reference Range Interpretation Comments PLATELET ESTIMATE (test SLIGHTLY DECREASED ADEQUATE code = PLTEST) THOUSAND PLATELET MORPHOLOGY NORMAL (test code = PLTMORPH) CBC W/AUTO [id number] 06:42:00 Test Item Value Reference Range Interpretation [...] NO DIFF/SCN CRITERIA = MDIFF) CBC W/AUTO [id number] 06:42:00 Test Item Value Reference Range Interpretation [...] NO DIFF/SCN CRITERIA = MDIFF) GLUCOSE BEDSIDE [id number] 06:33:00 Test Item Value Reference Range Interpretation Comments GLUCOSE BEDSIDE TESTING (test code 154 mg/dL 70-110 H = GLUBED) BASIC METABOLIC [id number] 06:18:00 Test Item Value Reference Range Interpretation [...] MG/DL 8.5-10.1 L - XR CHEST 1 [id number] 21:13:00 Name: SHANTEL LAURENT [facility] : 1945 Age/S: 74 / F [address] Unit #: [id number] Loc: [place] [address] Phys: Ursula Do MD Acct: [id number] Dis Date: Status: ADM IN PHONE #: [phone] Exam Date: 04/10/20202106 FAX #: Reason: PICC LINE PLACEMENT EXAMS: CPT: [id number] XR CHEST 1 V 63917 Fluoro Time: DAP (Gy m2): Air Kerma [...] LAURENT : 1945 Age/S: 74 / F [address] Unit #: [id number] Loc: [place] [address] Phys: Ursula Do MD Acct: [id number] Dis Date: Status: ADM IN PHONE #: [phone] Exam Date: 04/10/20202106 FAX #: Reason: PICC LINE PLACEMENT EXAMS: CPT: [id number] XR CHEST 1 V 92253 Fluoro Time: DAP (Gy m2): Air Kerma (mGy): <Continued> Technologist: Joelle So RT(R)(CT) Trnscb Date/Time: 04/10/2020 (2112) [email or web address] Orig Print D/T: S: 04/10/2020 (2115) PAGE 2 Signed ReportGLUCOSE BEDSIDE [id number] 20:19:00 Test Item Value Reference Range Interpretation Comments GLUCOSE BEDSIDE TESTING (test code = 76 mg/dL 70-110 N GLUBED) GLUCOSE BEDSIDE [id number] 16:22:00 Test Item Value Reference Range Interpretation Comments GLUCOSE BEDSIDE TESTING (test code = 82 mg/dL 70-110 N GLUBED) CBC W/AUTO [id number] 07:47:00 Test Item Value Reference Range Interpretation [...] NO DIFF/SCN CRITERIA = MDIFF) BASIC METABOLIC [id number] 06:50:00 Test Item Value Reference Range Interpretation [...] CA) 8.8 MG/DL 8.5-10.1 N GLUCOSE BEDSIDE [id number] 00:23:00 Test Item Value Reference Range Interpretation Comments GLUCOSE BEDSIDE TESTING (test code = 88 mg/dL 70-110 N GLUBED) GLUCOSE BEDSIDE [id number] 22:47:00 Test Item Value Reference Range Interpretation Comments GLUCOSE BEDSIDE TESTING (test code = 50 mg/dL 70-110 L GLUBED) GLUCOSE BEDSIDE [id number] 20:50:00 Test Item Value Reference Range Interpretation Comments GLUCOSE BEDSIDE TESTING (test code = 62 mg/dL 70-110 L GLUBED) BASIC METABOLIC [id number] 19:19:00 Test Item Value Reference Range Interpretation [...] CA) 9.5 MG/DL 8.5-10.1 N BASIC METABOLIC [id number] 15:26:00 Test Item Value Reference Range Interpretation [...] CA) 9.0 MG/DL 8.5-10.1 N GLUCOSE BEDSIDE [id number] 12:06:00 Test Item Value Reference Range Interpretation Comments GLUCOSE BEDSIDE TESTING (test code = 81 mg/dL 70-110 N GLUBED) GLUCOSE BEDSIDE [id number] 12:06:00 Test Item Value Reference Range Interpretation Comments GLUCOSE BEDSIDE TESTING (test code = 54 mg/dL 70-110 L GLUBED) GLUCOSE BEDSIDE [id number] 08:14:00 Test Item Value Reference Range Interpretation Comments GLUCOSE BEDSIDE TESTING (test code = 46 mg/dL 70-110 L GLUBED) GLUCOSE BEDSIDE [id number] 08:14:00 Test Item Value Reference Range Interpretation Comments GLUCOSE BEDSIDE TESTING (test code = 34 mg/dL 70-110 LL GLUBED) CBC W/AUTO [id number] 06:08:00 Test Item Value Reference Range Interpretation [...] code NO DIFF/SCN CRITERIA = MDIFF) RBC [id number] 06:08:00 Test Item Value Reference Range Interpretation Comments PLATELET ESTIMATE DECREASED ADEQUATE PLATELET C OUNT (test code = THOUSAND VERIFIED BY PLTEST) EXAMINATION OF PERIPHERAL BLOODSMEAR.MANU AL PLT ESTIMATE 92,000-115,000 PLATELET NORMAL MORPHOLOGY (test code = PLTMORPH) CBC W/AUTO [id number] 06:07:00 Test Item Value Reference Range Interpretation [...] NO DIFF/SCN CRITERIA = MDIFF) CBC W/AUTO [id number] 06:07:00 Test Item Value Reference Range Interpretation [...] NO DIFF/SCN CRITERIA = MDIFF) BASIC METABOLIC [id number] 06:06:00 Test Item Value Reference Range Interpretation [...] CA) 9.4 MG/DL 8.5-10.1 N CBC W/AUTO [id number] 05:48:00 Test Item Value Reference Range Interpretation [...] DIFF/SCN CRITERIA MDIFF) - MRI BRAIN W/O [id number] 19:59:00 FAX: Zurdo Perales MD [phone] Camps: St: ADM Name: SHANTEL LAURENT [facility] : 1945 Age/S: 74/F [address] Unit #: [id number] Loc: L.ICU0 [place] [address] Phys: Zurdo Rondon MD Acct: [id number] Dis Date: Status: ADM IN PHONE #: [phone] Exam Date: 04/08/2020 1730 FAX #: Reason: ISCHEMIC STROKE EXAMS: CPT: [id number] MRI BRAIN W/O CONTRAST 45581 LOCATION CODE H 31 MRI BRAIN WITHOUT [...] Signed Report (CONTINUED) FAX: Zurdo Perales MD [phone] Camps: PM St: ADM------- Name: SHANTEL LAURENT [facility] : 1945 Age/S: 74/F [address] Unit #: [id number] Loc: [address] [address] Phys:Zurdo Rondon MD Acct: [id number] Dis Date: Status: ADM IN PHONE #: [phone] Exam Date: 04/08/2020 1730 FAX #: Reason: ISCHEMIC STROKE EXAMS: CPT: [id number] MRI BRAIN W/O CONTRAST 16169 <Continued> at 1959 Reported and signed by: Karey Oconnor MD CC: Zurdo Rondon MD Technologist: Brian Luther RT(R)(MR) Transcribed Date/Time/By: 04/08/2020 (1958) :[email or web address] Orig PrintD/T: S: 04/08/2020 (2001) PAGE 2 Signed Report- XR SHOULDER 2+V [id number] 16:42:00 Name: SHANTEL LAURENT [place] : 1945 Age/S: 74 / F [address] Unit #: [id number] Loc: [place] [address] Phys: Zurdo Rondon MD Acct: [id number] Dis Date: Status: ADM IN PHONE #: [phone] Exam Date: 04/08/2020 1630 FAX #: Reason: left shou lder pain EXAMS: CPT: [id number] XR SHOULDER 2+[place] [address] Fluoro Time: DAP (Gy m2): Air Kerma [...] MD PAGE1 Signed Report Name: SHANTEL LAURENT [place] : 1945 Age/S: 74 / F [address] Unit #: [id number] Loc: [place] [address] Phys: Zurdo Rondon MD Acct: [id number] Dis Date: Status: ADM IN PHONE #: [phone] Exam Date: 04/08/2020 1630 FAX #: Reason: left shoulder pain EXAMS: CPT: [id number] XR SHOULDER 2+[place] [address] Fluoro Time: DAP (Gy m2): Air Kerma (mGy): <Continued> Technologist: Kimmie Curtis RT(R)(CT) Trnscb Date/Time: 04/08/2020 (1641) Danette Orig Print D/T: S: 04/08/2020 (6594) PAGE 2 Signed [id number] 06:02:00 Test Item Value Reference Range Interpretation [...] may nella yby method. Completed by Nursing: [facility] METABOLIC [id number] 05:37:00 Test Item Value Reference Range Interpretation [...] Ratio 1.48-3.22 Avg L Comment: FASTING IN [id number] 05:37:00 Test Item Value Reference Range Interpretation Comments GLYCOSYLATED HEMOGLOBIN (HA1C) 5.0 % A1C 0.0-5.7 N (test code = GLYHGB) ESTIMATED AVERAGE GLUCOSE (test 97 MG/DLest code = EAG) CBC W/AUTO [id number] 05:23:00 Test Item Value Reference Range Interpretation [...] (test code NO DIFF/SCN CRITERIA = MDIFF) [id number] 21:26:00 Test Item Value Reference Range Interpretation [...] nella yby method. Completed by Nursing: NOVITAMIN [id number] 19:04:00 Test Item Value Reference Range Interpretation Comments VITAMIN B12 (test code = VITB12) 376 PG/ML 183-986 N FOLIC [id number] 19:04:00 Test Item Value Reference Range Interpretation Comments FOLIC ACID (test code = FOL) 6.20 NG/ML 3.10-17.50 N THYROID STIMULATING [id number] 19:04:00 Test Item Value Reference Range Interpretation Comments THYROID STIMULATING HORMONE 3.100 mcIU/ML 0.340-4.820 N (test code = TSH) CARBAMAZEPINE (TEGRETOL)2020-04-07 19:04:00 Test Item Value Reference Range Interpretation Comments CARBAMAZEPINE (TEGRETOL) (test < 0.5 mcG/ML 4.0-12.0 L code = CARB) VALPROIC ACID (DEPAKENE)2020-04-07 19:04:00 Test Item Value Reference Range Interpretation Comments VALPROIC ACID (DEPAKENE) (test 53.7 mcG/ML 50.0-100.0 N code = VALP) VITAMIN [id number] 18:35:00 Test Item Value Reference Range Interpretation Comments VITAMIN B12 (test code = VITB12) 376 PG/ML 183-986 N FOLIC [id number] 18:35:00 Test Item Value Reference Range Interpretation Comments FOLIC ACID (test code = FOL) 6.20 NG/ML 3.10-17.50 N THYROID STIMULATING [id number] 18:35:00 Test Item Value Reference Range Interpretation Comments THYROID STIMULATING HORMONE 3.100 mcIU/ML 0.340-4.820 N (test code = TSH) CARBAMAZEPINE (TEGRETOL)2020-04-07 18:35:00 Test Item Value Reference Range Interpretation Comments CARBAMAZEPINE (TEGRETOL) (test code = mcG/ML 4.0-12.0 CARB) VALPROIC ACID (DEPAKENE)2020-04-07 18:35:00 Test Item Value Reference Range Interpretation Comments VALPROIC ACID (DEPAKENE) (test code = mcG/ML 50.0-100.0 VALP) [id number] 18:17:00 Test Item Value Reference Range Interpretation [...] method. Completed by Nursing: NOCOVID 19 INHOUSE [id number] 16:14:00 Test Item Value Reference Range Interpretation Comments COVID 19 INHOUSE AG NEGATIVE Negative Per manu facturer, (test code = negative result s should [id number]) be treated aspr esumptive and, if inconsi [...] symptoms co nsistent with COVID-19. GLUCOSE BEDSIDE [id number] 16:06:00 Test Item Value Reference Range Interpretation Comments GLUCOSE BEDSIDE TESTING (test code = 79 mg/dL 70-110 N GLUBED) UA RFLX MICR CULT IF [id number] 15:35:00 Test Item Value Reference Range Interpretation [...] RiskForSepsis-no oth srcUA RFLX MICR CULT IF [id number] 15:28:00 Test Item Value Reference Range Interpretation [...] UACULT) Indication for culture: RiskForSepsis-no oth srcPROTHROMBIN [id number] 14:58:00 Test Item Value Reference Range Interpretation Comments PT PATIENT (test code = PTP) 11.2 SECONDS 9.3-12.9 N INTERNATIONAL NORMAL RATIO 0.99 INR Unit 0.8-1.2 N (test code = INR) THROMBOPLASTIN TIME [id number] 14:58:00 Test Item Value Reference Range Interpretation Comments THROMBOPLASTIN TIME PARTIAL 21.3 SECONDS 26-35 L (test code = PTT) BASIC METABOLIC [id number] 14:46:00 Test Item Value Reference Range Interpretation [...] 9.1 MG/DL 8.5-10.1 N Completed by Nursing: [id number] 14:46:00 Test Item Value Reference Range Interpretation [...] method. Completed by Nursing: NO- CT ANGIO [id number] 14:46:00 Name: SHANTEL LAURENT [facility] : 1945 Age/S: 74 / F [address] Unit #: [id number] Loc: [place] [address] Phys: Jc Garcia MD Acct: [id number] Dis Date: Status: PRE ER PHONE #: [phone] Exam Date: 04/07/2020 1430 FAX #: Reason: ams, slurred speech EXAMS: CPT: [id number] CT ANGIO NECK 23070 EXAM: - CTANGIO HEAD, - CT ANGIO [...] LAURENT : 1945 Age/S: 74 / F [address] Unit #: [id number] Loc: [place] [address] Phys: Jc Garcia MD Acct: [id number] Dis Date: Status: PRE ER PHONE #: [phone] Exam Date: 04/07/2020 1430FAX #: Reason: ams, slurred speech EXAMS: CPT: [id number] CT ANGIO NECK 366[address] <Continued> The RIGHT posterior cerebral artery, superior [...] Technologist:RT Jesse(R)(CT) CTDI: DLP: Trnscb Date/Time: 04/07/2020 (3926) t.NOÉR.KW9 Orig Print D/T: S: 04/07/2020 (5227) PAGE 2 Signed Report- CT ANGIO [id number] 14:46:00 Name: SHANTEL LAURENT : 1945 Age/S: 74 / F [address] Unit #: [id number] Loc: [place] [address] Phys: Jc Garcia MD Acct: [id number] Dis Date: Status: PRE ER PHONE #: [phone] Exam Date: 04/07/2020 1425 FAX #: Reason: ams, slurred speech EXAMS: CPT: [id number] CT ANGIO HEAD [address]327 EXAM: - CTANGIO HEAD, - CT ANGIO [...] PAGE 1 Signed Report (CONTINUED) Name: SHANTEL LAUERNT : 1945 Age/S: 74 / F [address] Unit #: [id number] Loc: [place] [address] Phys: Jc Garcia MD Acct: [id number] Dis Date: Status: PRE ER PHONE #: [phone] Exam Date: 04/07/2020 1425FAX #: Reason: ams, slurred speech EXAMS: CPT: [id number] CT ANGIO HEAD [address] <Continued> The RIGHT posterior cerebral artery, superior [...] by: Alina Marcum M.D. CC: Jc Miller Technologist:Kimmie Curtis, RT(R)(CT) CTDI: DLP: Trnscb Date/Time: 04/07/2020 (6646) t.NOÉR.KW9 Orig Print D/T: S: 04/07/2020 (7097) PAGE 2 Signed Report- XR CHEST 1 [id number] 14:37:00 Name: SHANTEL LAURENT [place] : 1945 Age/S: 74 / F [address] Unit #: [id number] Loc: [place] [address] Phys: Jc Garcia MD Acct: [id number] Dis Date: Status: PRE ER PHONE #: [phone] Exam Date: 04/07/2020 1432 FAX #: Reason: Code Stroke EXAMS: CPT: [id number] XR CHEST 1 V 20977 Fluoro Time: DAP (Gy m2): Air Kerma [...] of pneumothorax.. Not fully included in the tukaa-aa-yrsf, there appears to be cortical irregularity about the left humeral head, which may represent fracture; age indeterminate. An IVC filter is partially seen in the upper abdomen. IMPRESSION 1. Low lung volumes and bronchovascular crowding. Otherwise, No radiographic evidence of acute cardiopulmonary process. 2.Not fully included in the siisi-zd-qnam, there appears to be cortical irregularity about the left humeral head, which may represent fracture; age indeterminate. Correlate with point tenderness on physical exam. Additional dedicated radiographs of the left shoulder and/or humerus may be obtained if it is clinically warranted. at 1437 Reported and signed by: Alina Marcum M.D. CC: Jc Garcia MD PAGE 1 Signed Report Name: SHANTEL LAURENT [place] : 1945 Age/S: 74 / [id number] Unit #: [id number] Loc: [place] [address] Phys: Jc Garcia MD Acct: [id number] Date: Status: PRE ER PHONE #: [phone] Exam Date: 04/07/2020 1432 FAX #: Reason: Code Stroke EXAMS: CPT: [id number] XR CHEST 1 V 79706 Fluoro Time: DAP (Gy m2): Air Kerma (mGy): <Continued> Technologist: Courtney Roland RT(R) Trnscb Date/Time: 04/07/2020 (1437) Ansley.KW9 Orig PrintD/T: S: 04/07/2020 (7775) PAGE 2 Signed ReportCBC W/O [id number] 14:23:00 Test Item Value Reference Range Interpretation [...] 7.0-10.5 N MPV) - CT HEAD/BRAIN W/O [id number] 14:23:00 Name: SHANTEL LAURENT [place] : 1945 Age/S: 74 / F [address] Unit #: [id number] Loc: [place] [address] Phys: Jc Garcia MD Acct: [id number] Dis Date: Status: PRE ER PHONE #: [phone] Exam Date: 04/07/20203 FAX #: Reason: Code Str shailesh EXAMS: CPT: [id number] CT HEAD/BRAIN W/O CONT 52019 EXAM: - CTHEAD/BRAIN W/O CONT HISTORY: Code [...] 1 Signed Report (CONTINUED) Name: SHANTEL LAURENT [place] : 1945 Age/S: 74 / F [address] [facility] Unit #: [id number] Loc: [place] [address] Phys: Jc Garcia MD Acct: [id number] Dis Date: Status: PRE ER PHONE #: [phone] Exam Date: 04/07/2020 9207 FAX #: Reason: Code Stroke EXAMS: CPT: [id number] CT HEAD/BRAIN W/O CONT 82043 <Continued> at 1423 Reported and signed by: Alina Marcum M.D. CC: Jc Garcia MD Technologist:Kimmie Curtis, RT(R)(CT) CTDI: DLP: Trnscb Date/Time: 04/07/2020 (2640) t.SDR.KW9/t.SDR.KW9 Orig Print D/T: S: 04/07/2020 (6426) PAGE 2 Signed ReportVALPROIC ACID (DEPAKENE)2019-08-31 07:37:00 Test Item Value Reference Range Interpretation Comments VALPROIC ACID (DEPAKENE) (test 45.7 ug/mL 50.0-100.0 L code = VALP) HGBA1C - GLYCOSYLATED [id number] 14:38:00 Test Item Value Reference Range Interpretation Comments GLYCOSYLATED HEMOGLOBIN (HA1C) (test 4.7 % 4.0-6.0 N code = GLYHGB) URINALYSIS [id number] 13:31:00 Test Item Value Reference Range Interpretation [...] = BACU) 3+ /HPF NEGATIVE A URINALYSIS [id number] 13:20:00 Test Item Value Reference Range Interpretation [...] code = BACU) /HPF NEGATIVE BASIC METABOLIC [id number] 12:49:00 Test Item Value Reference Range Interpretation [...] 9.2 mg/dL 8.6-10.4 N CA) BASIC METABOLIC [id number] 12:43:00 Test Item Value Reference Range Interpretation [...] code = mg/dL 8.6-10.4 CA) CBC W/AUTO [id number] 12:02:00 Test Item Value Reference Range Interpretation [...] Risk LD L Cholesterol<1 00mg/dL: Desirable LDL-C krtdxlhfnsorp27 0-159mg/ dL: Borderline High Risk LDL-C mkdsgnihehaks20 0-189mg/ dL: High risk L DL-C concentration H DL-LDL Cholesterol is affected by a number of factors suchas smoking, age and sex.~~~~~~~~~~~ ~~~~~~~~ ~~~~~~~~~~~~~~~ ~~~~~~~~ ~~~~~~~~~~~~~~~ ~~~ THYROID STIMULATING [id number] 12:09:00 Test Item Value Reference Range Interpretation Comments THYROID STIMULATING HORMONE (test 8.41 mIU/mL 0.38-5.60 H code = TSH)
--- NOTE | 2020-06-14 13:50 | EDPHYS ---
Physician Documentation [facility] Name: Macrina Mason Age: 74 yrs Sex: Female : 1945 Arrival Date: 06/14/2020 Time: 12:32 Bed 8 Private MD: ED Physician Kevyn Carrillo HPI: 06/14 12:32 This 74 yrs old Female presents to ER via Unassigned with complaints of Head Injury cp Without LOC-Adult. 12:32 The patient or guardian reports injury. The complaints affect the forehead. Context of cp injury: resulted from a fall, from wheelchair. Onset: The symptoms/episode began/occurred just prior to arrival. 12:32 Associated signs and symptoms: Loss of consciousness: This patient did not experience cp any loss of consciousness. Pertinent positives: headache, neck pain, Pertinent negatives: incontinence, seizure, vomiting. Historical: - Allergies: 12:41 PENICILLINS; sv 12:41 tramadol; sv - Home Meds: 12:50 aspirin 325 mg Oral tab 1 tab once daily [Active]; furosemide 40 mg Oral tab 1 tab once hb daily [Active]; gabapentin 800 mg Oral tab 1 tab 3 times per day [Active]; hydrocodone-acetaminophen 5-325 mg Oral tab 1 tab every 6 hours [Active]; levothyroxine 25 mcg tab 1 tab once daily [Active]; Metoprolol Tartrate Oral [Active]; olanzapine 2.5 mg Oral tab 1 tabs twice a day [Active]; propranolol 20 mg Oral tab 1 tab 2 times per day [Active]; - PMHx: 12:41 Schizophrenia; allergies; Back pain; ADD/ADHD; Bipolar disorder; COPD; DVT; UTI; sv Dysphagia; Hyperlipidemia; Parkinsons; CHF; CVA; Alzheimers; Chronic kidney disease; TIA; Convulsions; - Immunization history:: Adult Immunizations up to date. - Social history:: Smoking status: Patient denies any tobacco usage or history of. - Immunization history: Last tetanus immunization: unknown. ROS: 12:35 Constitutional: Negative for body aches, chills, fever, poor PO intake. cp 12:35 Eyes: Negative for injury, pain, redness, and discharge. cp 12:35 Neck: Positive for pain with movement, pain at rest, tenderness. 12:35 Cardiovascular: Negative for chest pain. 12:35 Respiratory: Negative for cough, shortness of breath, wheezing. 12:35 Abdomen/GI: Negative for abdominal pain, nausea, vomiting. 12:35 Neuro: Positive for headache, Negative for altered mental status, syncope, weakness. 12:35 All other systems are negative. Exam: 13:00 Constitutional: The patient appears in no acute distress, alert, awake, cp non-diaphoretic, non-toxic, well developed, well nourished. 13:00 Head/face: Noted is contusion, that is superficial, of the forehead, ecchymosis, that is mild, of the forehead, a laceration(s), that is superficial, that is jagged, of the forehead, swelling, that is mild, of the forehead. 13:00 Eyes: Periorbital structures: appear normal, Pupils: equal, round, and reactive to light and accomodation, Extraocular movements: intact throughout, Conjunctiva: normal, no exudate, no injection, Lids and lashes: appear normal, bilaterally. 13:00 ENT: External ear(s): are unremarkable, Nose: is normal, Posterior pharynx: Airway: normal. 13:00 Neck: C-spine: C-collar placed [employer]. 13:00 Chest/axilla: Inspection: normal, Palpation: is normal, no crepitus, no tenderness. 13:00 Cardiovascular: Rate: normal. 13:00 Respiratory: the patient does not display signs of respiratory distress, Respirations: normal, no use of accessory muscles, no retractions, labored breathing, is not present, Breath sounds: are clear throughout, no decreased breath sounds. 13:00 Abdomen/GI: Inspection: abdomen appears normal, Palpation: abdomen is soft and non-tender, in all quadrants. 13:00 Back: pain, is absent. 13:00 Neuro: Orientation: to person, place \T\ time. Mentation: is normal. Vital Signs: 12:38 BP 137 / 61; Pulse 65; Resp 16; Temp 97.8; Pulse Ox 100% ; Weight 100 kg; Height 5 ft. hb 6 in. (167.64 cm); Pain 5/10; 13:30 BP 131 / 60; Pulse 62; Resp 16; Temp 98; Pulse Ox 100% ; sv 14:30 BP 132 / 65; Pulse 62; Resp 16; Temp 98; Pulse Ox 99% ; sv 12:38 Body Mass Index 35.58 (100.00 kg, 167.64 cm) hb Donovan Coma Score: 12:30 Eye Response: spontaneous(4). Verbal Response: confused(4). Motor Response: obeys hb commands(6). Total: 14. 12:32 Eye Response: spontaneous(4). Verbal Response: oriented(5). Motor Response: obeys cp commands(6). Total: 15. Trauma Score (Adult): 12:30 Eye Response: spontaneous(1); Verbal Response: confused(1); Motor Response: obeys hb commands(2); Systolic BP: > 89 mm Hg(4); Respiratory Rate: 10 to 29 per min(4); [place] Score: 14; Trauma Score: 12 13:30 Eye Response: spontaneous(1); Verbal Response: oriented(1); Motor Response: obeys sv commands(2); Systolic BP: > 89 mm Hg(4); Respiratory Rate: 10 to 29 per min(4); [place] Score: 15; Trauma Score: 12 14:30 Eye Response: spontaneous(1); Verbal Response: oriented(1); Motor Response: obeys sv commands(2); Systolic BP: > 89 mm Hg(4); Respiratory Rate: 10 to 29 per min(4); [place] Score: 15; Trauma Score: 12 MDM: 12:39 Patient medically screened. cp 13:30 Differential diagnosis: Contusion of Hematoma on Laceration of Intracranial bleed- cp Concussion c-spine fracture. 13:48 Data reviewed: vital signs, nurses notes, radiologic studies, CT scan. cp 13:48 Counseling: I had a detailed discussion with the patient and/or guardian regarding: the cp historical points, exam findings, and any diagnostic results supporting the discharge/admit diagnosis, radiology results, to return to the emergency department if symptoms worsen or persist or if there are any questions or concerns that arise at home. Response to treatment: the patient's symptoms have mildly improved after treatment, and as a result, I will discharge patient. Special discussion: Based on the patient's history, exam and DX evaluation, there is no indication for emergent intervention or inpatient TX. It is understood by the patient/guardian that if the SXs persist or worsen they need to return immediately for re-evaluation. ED course: VSS. CT head/c-spine negative for fracture. Wound cleaned and dressed, will discharge for continued monitoring. 06/14 12:34 Order name: CT Head C Spine; Complete Time: 13:24 cp 06/14 13:37 Order name: Gloves, Sterile; Complete Time: 13:50 cp 06/14 13:37 Order name: Setup Suture Tray; Complete Time: 13:50 cp 06/14 14:12 Order name: Dermabond; Complete Time: 14:12 hb Administered Medications: 13:49 Drug: HYDROcodone-acetaminophen 5 mg-325 mg 1 tabs Route: PO; sv 14:29 Follow up: Response: No adverse reaction; RASS: Alert and Calm (0) sv 13:50 Not Given (Physician Discretion): Tylenol 650 mg PO once sv 14:29 Not Given (Physician Discretion): Lidocaine-Epinephrine -1%: (1:100,000) 5 ml 20 ml sv Infiltration once; to bedside Disposition: 14:00 Chart complete. cp Disposition: 06/14/20 13:49 Discharged to Home. Impression: Fall from non-moving wheelchair, Contusion of unspecified part of head. - Condition is Stable. - Discharge Instructions: Head Injury, Adult. - Medication Reconciliation Form, Thank You Letter, Antibiotic Education, Prescription Opioid Use form. - Follow up: Private Physician; When: 1 - 2 days; Reason: Worsening of condition. - Problem is new. - Symptoms have improved. Addendum: 06/16/2020 17:40 Co-signature as Attending Physician, Kevyn Carrillo MD I agree with the assessment and k dr plan of care. Signatures: Dispatcher [employer] Autumn Grewal RN RN sv Rittger, Kevin, MD MD [facility] Kameron Vela PA PA cp Ivone Valdez, RN RN hb Corrections: (The following items were deleted from the chart) 06/14 14:29 13:37 Dressing - Wound ordered. cp sv 14:48 13:49 06/14/2020 13:49 Discharged to Home. Impression: Fall from non-moving wheelchair; hb Contusion of unspecified part of head. Condition is Stable. Forms are Medication Reconciliation Form, Thank You Letter, Antibiotic Education, Prescription Opioid Use. Follow up: Private Physician; When: 1 - 2 days; Reason: Worsening of condition. Problem is new. Symptoms have improved. cp
--- NOTE | 2020-06-14 13:50 | ER ---
Nurse's Notes [facility] Name: Macrina Mason Age: 74 yrs Sex: Female : 1945 Arrival Date: 06/14/2020 Time: 12:32 Bed 8 Private MD: Diagnosis: Fall from non-moving wheelchair;Contusion of unspecified part of head Presentation: 06/14 12:31 Chief complaint: EMS states: Pt was sitting in her wheelchair eating, leaned over and sv fell forward hitting her head. Denies LOC. Laceration noted to left side of forehead, not bleeding at this time. c/o neck pain in route, C collar placed by EMS. Care prior to arrival: Cervical collar in place. Mechanism of Injury: Fall sitting position. Trauma event details: Injury occurred in the [facility], Injury occurred: in an institution. Injury occurred: June 14, 2020. 12:31 Acuity: [place] 3 sv 12:31 Method Of Arrival: EMS: [facility] sv 12:38 Coronavirus screen: Client denies travel out of the [place] in the last 14 days. At this sv time, the client does not indicate any symptoms associated with coronavirus-19. Ebola Screen: No symptoms or risks identified at this time. Initial Sepsis Screen: Does the patient meet any 2 criteria? No. Patient's initial sepsis screen is negative. Does the patient have a suspected source of infection? No. Patient's initial sepsis screen is negative. Risk Assessment: Do you want to hurt yourself or someone else? Patient reports no desire to harm self or others. Onset of symptoms was June 14, 2020. Trauma Activation: Not Applicable Physician: ED Physician; Name: ; Notified At: ; Arrived At: Physician: General Surgeon; Name: ; Notified At: ; Arrived At: Physician: Radiology; Name: ; Notified At: ; Arrived At: Physician: Respiratory; Name: ; Notified At: ; Arrived At: Physician: Lab; Name: ; Notified At: ; Arrived At: Historical: - Allergies: 12:41 PENICILLINS; sv 12:41 tramadol; sv - Home Meds: 12:50 aspirin 325 mg Oral tab 1 tab once daily [Active]; furosemide 40 mg Oral tab 1 tab once hb daily [Active]; gabapentin 800 mg Oral tab 1 tab 3 times per day [Active]; hydrocodone-acetaminophen 5-325 mg Oral tab 1 tab every 6 hours [Active]; levothyroxine 25 mcg tab 1 tab once daily [Active]; Metoprolol Tartrate Oral [Active]; olanzapine 2.5 mg Oral tab 1 tabs twice a day [Active]; propranolol 20 mg Oral tab 1 tab 2 times per day [Active]; - PMHx: 12:41 Schizophrenia; allergies; Back pain; ADD/ADHD; Bipolar disorder; COPD; DVT; UTI; sv Dysphagia; Hyperlipidemia; Parkinsons; CHF; CVA; Alzheimers; Chronic kidney disease; TIA; Convulsions; - Immunization history:: Adult Immunizations up to date. - Social history:: Smoking status: Patient denies any tobacco usage or history of. - Immunization history: Last tetanus immunization: unknown. Screenin:41 Abuse screen: Denies threats or abuse. Denies injuries from another. Nutritional sv screening: No deficits noted. Tuberculosis screening: No symptoms or risk factors identified. Fall Risk None identified. Primary Survey: 12:31 NO uncontrolled hemorrhage observed. A: The patient is alert. Airway: patent, No sv supplemental oxygen in use on arrival. Oral cavity: clear, Trachea midline. Breathing/Chest: Respiratory pattern: regular, Respiratory effort: spontaneous, unlabored, Chest inspection: symmetrical rise and fall of the chest. Circulation: Pulses: palpable right radial artery and left radial artery. Skin color: pink, Skin temperature: warm, dry. Disability Alert. Exposure/Environment: All clothing and personal items were removed. Forensic evidence collection is not deemed to be indicated at this time. Items placed in patient belonging bag. There is no evidence of uncontrolled external bleeding. Obvious injury(ies) are noted at this time: laceration to left forehead A warming method has been applied: A warm blanket has been provided to the patient. 13:30 Reassessment Airway Airway Patent Oxygen No O2 Oral cavity Clear Trachea Midline sv Breathing/Chest Respiratory pattern Regular Respiratory effort Spontaneous Unlabored Chest inspection Symmetrical Circulation Pulses Palpable Color [place] Temperature Warm Dry Disability Alert. Secondary Survey: 12:31 HEENT: Head Other laceration to forehead. Gastrointestinal: No deficits noted. : No sv signs and/or symptoms were reported regarding the genitourinary system. Musculoskeletal: No signs and/or symptoms reported regarding the musculoskeletal system. 12:32 HEENT: Face Other small laceration to left forehead, not bleeding at this time. hb Gastrointestinal: No deficits noted. : No deficits noted. Musculoskeletal: Reports neck and upper back pain. Assessment: 12:35 General: Appears in no apparent distress. Behavior is calm, cooperative. Pain: Pain hb currently is 5 out of 10 on a pain scale. Neuro: Level of Consciousness is awake, alert, obeys commands, Oriented to person, place. EENT: No signs and/or symptoms were reported regarding the EENT system. Cardiovascular: Capillary refill < 3 seconds Patient's skin is warm and dry. Respiratory: Respiratory effort is even, unlabored, Respiratory pattern is regular, symmetrical. GI: No signs and/or symptoms were reported involving the gastrointestinal system. : No signs and/or symptoms were reported regarding the genitourinary system. Derm: Skin is pink, warm \T\ dry. Musculoskeletal: Reports neck and upper back pain. Injury Description: Laceration sustained to forehead. 12:49 Reassessment: Pt to CT via stretcher. hb 14:00 Reassessment: Report called to [facility] by Ivone BHARDWAJ. sv 14:30 Reassessment: Patient appears in no apparent distress at this time. Patient and/or sv family updated on plan of care and expected duration. Pain level reassessed. Patient is alert, oriented x 3, equal unlabored respirations, skin warm/dry/pink. Vital Signs: 12:38 BP 137 / 61; Pulse 65; Resp 16; Temp 97.8; Pulse Ox 100% ; Weight 100 kg; Height 5 ft. hb 6 in. (167.64 cm); Pain 5/10; 13:30 BP 131 / 60; Pulse 62; Resp 16; Temp 98; Pulse Ox 100% ; sv 14:30 BP 132 / 65; Pulse 62; Resp 16; Temp 98; Pulse Ox 99% ; sv 12:38 Body Mass Index 35.58 (100.00 kg, 167.64 cm) hb [place] Coma Score: 12:30 Eye Response: spontaneous(4). Verbal Response: confused(4). Motor Response: obeys hb commands(6). Total: 14. 12:32 Eye Response: spontaneous(4). Verbal Response: oriented(5). Motor Response: obeys cp commands(6). Total: 15. Trauma Score (Adult): 12:30 Eye Response: spontaneous(1); Verbal Response: confused(1); Motor Response: obeys hb commands(2); Systolic BP: > 89 mm Hg(4); Respiratory Rate: 10 to 29 per min(4); [place] Score: 14; Trauma Score: 12 13:30 Eye Response: spontaneous(1); Verbal Response: oriented(1); Motor Response: obeys sv commands(2); Systolic BP: > 89 mm Hg(4); Respiratory Rate: 10 to 29 per min(4); Donovan Score: 15; Trauma Score: 12 14:30 Eye Response: spontaneous(1); Verbal Response: oriented(1); Motor Response: obeys sv commands(2); Systolic BP: > 89 mm Hg(4); Respiratory Rate: 10 to 29 per min(4); [place] Score: 15; Trauma Score: 12 ED Course: 12:32 Patient arrived in ED. sv 12:32 Kameron Vela PA is PHCP. cp 12:32 Kevyn Carrillo MD is Attending Physician. cp 12:32 Autumn Souza RN is Primary Nurse. sv 12:32 Patient has correct armband on for positive identification. Placed in gown. Bed in low mh5 position. Call light in reach. Side rails up X2. Warm blanket given. Pulse ox on. NIBP on. 12:38 Triage completed. sv 12:38 Arm band placed on. hb 12:49 Patient maintains SpO2 saturation greater than 95% on room air. Thermoregulation: warm hb blanket given to patient. 12:55 CT Head C Spine In Process Unspecified. EDMS 14:40 No provider procedures requiring assistance completed. Patient did not have IV access sv during this emergency room visit. Administered Medications: 13:49 Drug: HYDROcodone-acetaminophen 5 mg-325 mg 1 tabs Route: PO; sv 14:29 Follow up: Response: No adverse reaction; RASS: Alert and Calm (0) sv 13:50 Not Given (Physician Discretion): Tylenol 650 mg PO once sv 14:29 Not Given (Physician Discretion): Lidocaine-Epinephrine -1%: (1:100,000) 5 ml 20 ml sv Infiltration once; to bedside Intake: 12:30 PO: 0ml; Total: 0ml. hb 13:30 PO: 0ml; Total: 0ml. sv 14:30 PO: 0ml; Total: 0ml. sv Output: 12:30 Urine: 0ml; Total: 0ml. hb 13:30 Urine: 0ml; Total: 0ml. sv 14:30 Urine: 0ml; Total: 0ml. sv Outcome: 13:49 Discharge ordered by MD. cp 14:48 Patient left the ED. hb 14:48 Discharged to fpc. Report called to [facility] sv 14:48 Condition: stable 14:48 Discharge instructions given to fpc, Instructed on discharge instructions, follow up and referral plans. Demonstrated understanding of instructions, follow-up care. 15:53 Patient's length of stay was not longer than 2 hours. sv Signatures: Dispatcher [employer] Autumn Grewal RN RN Kameron Vela PA PA cp Baxter, Heather, RN RN Supriya Diallo 5 Corrections: (The following items were deleted from the chart) 12:42 12:31 Chief complaint: EMS states: Pt was sitting in her wheelchair eating, leaned over sv and fell forward hitting her head. Denies LOC. Abrasion noted to left side of forehead, not bleeding at this time. c/o neck pain in route, C collar placed by EMS sv 12:49 12:38 BP 137 / 61; Pulse 65bpm; Resp 16bpm; Pulse Ox 100%; Temp 97.8F; sv hb
[2020-06-14] MEDS ORDERED: LIDOCAINE 1% W/EPI 1:100,000 MDV 50 ML VIAL ONE (13:59)
[2020-06-14] MEDS ORDERED: HYDROCODONE/APAP 5/325 MG TAB ONE (13:59)
[2020-06-14] MEDS ORDERED: DERMABOND SKIN ADHESIVE TOP ONE (14:16)
[2020-06-19 04:52] VITALS: O2SAT 100
[2020-06-19 04:54] VITALS: BP 131/60; TEMP 98
== END 2020-06-14 14:48 | disposition home or self-care (01) ==
LOC: ER 12:35
DX: S00.83XA Contusion of other part of head, initial encounter (principal); W05.0XXA Fall from non-moving wheelchair, initial encounter; Y93.89 Activity, other specified; Y92.129 Unspecified place in nursing home as the place of occurrence of the external cause; N18.9 Chronic kidney disease, unspecified; G20 Parkinson's disease; Z79.82 Long term (current) use of aspirin; Z88.0 Allergy status to penicillin; Z88.5 Allergy status to narcotic agent
CPT/HCPCS: 70450; 72125; 99284

== ENCOUNTER 2021-08-16 10:34 | Inpatient (IN) | payer OTHER, BC ==
--- OUTSIDE RECORDS SUMMARY | 2021-08-16 10:41 | XMS REPORT | Continuity of Care Document ---
:1945 Author Organization [facility] t Address [address] [place] [address] Care Team Providers Name Role Phone [phone] Attending Clinician Unavailable Chauncey Alegre Attending Clinician Unavailable Misael Attending Clinician Unavailable Sanjay Lindquist Attending Clinician Unavailable Farooq Canela Attending Clinician Unavailable Franchesca Attending Clinician Unavailable Chauncey LINDQUIST Attending Clinician Unavailable Doctor Unassigned, Name Attending Clinician Unavailable Sánchez Solano Attending Clinician Unavailable Herson Rondon Attending Clinician Unavailable [id number] Admitting Clinician Unavailable Misael Admitting Clinician Unavailable Physician, Primary or Family Admitting Clinician Unavailолег Sorensen Admitting Clinician Unavailable KNOW Admitting Clinician Unavailable JATINDER Admitting Clinician Unavailable Payers Payer Name Policy Type Policy Number Effective Date Expiration Date S ryanne [facility] [id number] BCTX BCTI [id number] Problems Condition Condition Condition Status Onset Resolution Last Treating Co mments Source Name Details Category Date Date Treatment Clinician Date UTI UTI Disease Active 2015-07 Univers (urinary (urinary 1-23 ity of tract tract 00:00: [place] infection) infection) 00 Me dical Branch Knee joint Knee joint Disease Active 2015-07 U nivers replacemen replacemen 0-13 it y of t status t status 00:00: [place] 00 Medical Branch Morbid Morbid Disease Active 2015-07 Univers obesity obesity 0-12 ity of 00:00: [place] [address] Medical Branch Pain Pain Disease Active 2015-07 Univers 0-12 ity of 00:00: [place] [address] Medical [place] History of History of Disease Active U nivers DVT (deep DVT (deep ity of vein vein [place] thrombosis thrombosis Me dical ) ) Branch Hypertensi Hypertensi Disease Active U nivers on on ity of [facility] Anemia Anemia Disease Active Univers ity of [facility] Arthritis Arthritis Disease Active Uni vers ity of [facility] Chronic Chronic Disease Active [facility] kidney kidney ity of disease disease [facility] Allergies, Adverse Reactions, Alerts Allergy Allergy Status Severity Reaction(s) Onset Inactive Treating Comm ents Source Name Type Date Date Clinician No Known DA Active U 2020-1 [facility] All[facility]ie [facility] Clear s 00:00: [place] 00 [facility] No Known DA Active U 2020-1 [facility] Allergie 0-04 Clear s 00:00: Simpson 00 [facility] No Known DA Active U 2020-0 [facility] Allergie 2-20 [place] 00:[facility] [place] No Known DA Active U 2020-0 [facility] Allergie 2-20 [place] 00:[facility]: [facility] 00 [place] Social History Social Habit Start Date Stop Date Quantity Comments Source Sex Assigned [facility] of [facility] Tobacco use and 2019-01-21 2019-01-21 Never used Universit y of exposure 00:00:00 00:00:00 [facility] Alcohol intake 2019-01-21 2019-01-21 Current University of 00:00:00 00:00:00 non-drinker of [facility] alcohol Branch (finding) Tobacco Comment 2014-11-08 2014-11-08 [facility] 00:[facility] 00:00:00 [facility] Smoking Status Start Date Stop Date Source Never smoker [facility] Medications Ordered Filled Start Stop Current Ordering Indication Dosage Frequency Signature Comments Components Source Medication Medication Date Date Medication? Clinician (SIG) Name Name Cipro Cipro 2019- 2020- No Na Alegre [address] [facility] 00 :[facility] l [facility] Clinics Santyl Santyl 2019- 2020- No [facility] applicatio [facility] - 00:[facility]: 00:00 n nickel Memoria 00 :00 thickness l [facility] Zofran Zofran 2018-07 Yes Na Alegre [address] [facility] - 00:[facility]: Memoria 00 l [facility] Comp Air Comp Air 2018-07 Yes Na [facility]legre as [facility] Compressor Compressor 2-13 directed [facility] - Nebulizer Nebulizer 00:00: Mem oria 00 l [facility] Levothyroxi Levothyroxi 2018-07 Yes Na Alegre [address] [facility] [facility] ne Sodium ne Sodium 0-24 in the [place] es - 00:00: morning on Memoria 00 an empty l stomach [facility] Imitrex Imitrex Yes Na Alegre [address] [facility] [facility] 9-30 as needed [facility] - 00:00: Memoria 00 l [facility] Flonase Flonase Yes Na Alegre [address] [facility] 6[facility]06 each [facility] - 00:00: nostril Memoria 00 l [facility] Claritin Claritin Yes Na Alegre [address] [facility] [facility] 6[facility]06 [facility] - 00:00: Memoria 00 l [facility] FOLIC 2015-07 Yes 1{tbl} Take 1 Univers ACID/MULTIV 1-30 tablet by ity of IT-MIN/LUTE 22:28: mouth [place] IN (CENTRUM 08 daily. Medica l SILVER Branch ORAL) MULTIVITAMI 2015-07 Yes 1{tbl} Take 1 Un nena N ORAL 1-30 tablet by ity of 22:28: mouth [place] 08 daily. Medical Branch mv,iron,min 2015-07 Yes 1{capsu Take 1 U nivers -folic 1-30 le} capsule by ity of acid-biotin 22:28: mouth [place] (HAIR, SKIN 08 daily. Medica l AND Branch NAILS-ARGAN OIL) 66.7-1,666. 7 mcg Cap cholecalcif 2015-07 Yes 1000U Take 1,000 Univers jameson, 1-30 Units by ity of vitamin D3, 22:28: mouth 2 Daniel as 1,000 unit 08 (two) Medical tablet times Branch daily. fexofenadin 2015-07 Yes 180mg Take 180 U nivers e (GUILLERMINA 1-30 mg by ity of ALLERGY) 22:28: mouth [place] 180 mg 08 daily. Medical tablet Branch acetaminoph 2015-07 Yes 650mg Take 2 Uni vers en 1-30 tablets by ity of (TYLENOL) 00:00: mouth [place] 325 mg 00 every 6 Medical tablet (six) Branch hours as needed for Pain (scale 1-3). LORazepam 2015-07 Yes .5mg Take 1 Univer s (ATIVAN) 1-30 tablet by ity of 0.5 mg 00:00: mouth 3 [place] tablet 00 (three) Medical times Branch daily. gabapentin 2015-07 Yes 800mg Take 1 Univ ers (NEURONTIN) 1-30 tablet by ity of 800 mg 00:00: mouth 2 [place] tablet 00 (two) Medical times Branch daily. diphenhydrA 2015-07 Yes 50mg Take 1 Univ ers MINE 1-30 tablet by ity of (BENADRYL) 00:00: mouth [place] 50 mg 00 every 4 Medical tablet (four) Branch hours as needed for Itching or Allergies. atorvastati 2015-07 Yes 20mg Take 1 Univ ers n (LIPITOR) 1-30 tablet by ity of 20 mg 00:00: mouth at [place] tablet 00 bedtime. Medical Branch benztropine 2015-07 Yes 1mg Take 1 Univ ers (COGENTIN) 1-30 tablet by ity of 1 mg tablet 00:00: mouth 2 Daniel as 00 (two) Medical times Branch daily. QUEtiapine 2015-07 Yes 200mg Take 1 Univ ers (SEROQUEL 1-30 tablet by ity o f XR) 200 mg 00:00: mouth [place] 24 hr 00 daily. Medical tablet Branch risperiDONE 2015-07 Yes 2mg Take 1 Univ ers (RISPERDAL) 1-30 tablet by ity of 2 mg tablet 00:00: mouth 2 Daniel as 00 (two) Medical times Branch daily. calcium 2015-07 Yes 500mg Take 1 Univers carbonate 1-30 tablet by ity o f (CALCIUM 00:00: mouth [place] 500) 500 mg 00 daily. Medica l calcium Branch (1,250 mg) tablet donepezil 2015-07 Yes 5mg Take 1 Univer s (ARICEPT 1-30 tablet by ity of ODT) 5 mg 00:00: [place] disintegrat 00 bedtime. Medi tori ing tablet Branch folic acid 2016-1 Yes 800ug Take 1 Univ ers (FOLVITE) 1-30 tablet by ity o f 800 mcg 00:00: mouth [place] tablet 00 daily. Medical Branch flaxseed 2015-07 Yes 1{capsu Take 1 Univ ers 1,000 mg 1-30 le} capsule by ity o f Cap 00:00: mouth 2 [place] 00 (two) Medical times Branch daily. ferrous 2015-07 Yes 325mg Take 1 Univers sulfate 325 1-30 tablet by ity of mg (65 mg 00:00: mouth [place] iron) 00 daily. Medical tablet Branch bisacodyl 2015-07 Yes 5mg Take 1 Univer s (DULCOLAX) 1-30 tablet by ity of 5 mg EC 00:00: mouth as [place] tablet 00 needed for Medical Constipati Branch on. lactulose 2015-07 Yes 15mL Take 15 mL Un nena (CEPHULAC) 1-30 by mouth ity o f 10 gram/15 00:00: every [place] mL solution 00 morning as Me dical needed for Branch Constipati on. montelukast 2015-07 Yes 10mg Take 1 Univ ers (SINGULAIR) 1-30 tablet by ity of 10 mg 00:00: mouth [place] tablet 00 daily. Medical Branch codeine-gua 2015-07 Yes 5mL Take 5 mL U nivers ifenesin 1-30 by mouth ity of (ROBITUSSIN 00:00: every 6 Daniel as AC) 10-100 00 (six) Medical mg/5 mL hours as Branch solution needed (sore throat, cough). fluticasone 2015-07 Yes 2{spray Use 2 Un nena 50 1-30 } Sprays in ity of mcg/actuati 00:00: each [place] on nasal 00 nostril Medical spray daily. Branch buPROPion 2015-07 Yes 300mg Take 1 Unive rs XL 1-30 tablet by ity of (WELLBUTRIN 00:00: mouth [place] XL) 300 mg 00 daily. Medical 24 hr Branch tablet DULoxetine 2015-07 Yes 60mg Take 1 Unive rs (CYMBALTA) 1-30 capsule by ity of 60 mg 00:00: mouth [place] capsule 00 daily. Medical Branch triamcinolo 2015-07 Yes Apply to U nivers ne 1-30 area(s) 2 ity of acetonide 00:00: (two) [place] (TRIDERM) 00 times Medical 0.1 % cream daily. Branch rash amitriptyli 2015-07 Yes 25mg Take 1 Univ ers ne (ELAVIL) 1-30 tablet by ity of 25 mg 00:00: mouth at [place] tablet 00 bedtime. Medical Branch tolterodine 2015-07 Yes 2mg Take 1 Univ ers (DETROL) 2 1-30 tablet by ity of mg tablet 00:00: mouth 2 [place] 00 (two) Medical times Branch daily. Divalproex Divalproex Yes Na Alegre [address] Sodium Sodium [facility] l [facility] Lisinopril Lisinopril Yes Na Alegre [address] [facility] Carvedilol Carvedilol Yes Na Alegre [address] [facility] Simethicone Simethicone Yes Na Alegre [address] [facility] after [facility] - meals and Memoria at bedtime l as needed [facility] Furosemide Furosemide Yes Na Alegre TAKE [address] [facility] [facility] TABLET BY [facility]ukes - MOUTH Memoria EVERY DAY l [facility] Duloxetine Duloxetine Yes Na Alegre [address] HCl HCl [facility] - Memoria l [facility] Benadryl Benadryl Yes Na Alegre [address] Allergy Allergy as needed Luke s - Memoria l [facility] Metoprolol Metoprolol Yes Na Alegre TAKE [address] [facility] [facility] Succinate Succinate TABLET BY [facility]ukes - ER ER MOUTH Memoria TWICE l DAILY AT [facility] 6AM AND ent 6PM Clinics Topiramate Topiramate Yes Na Alegre TAKE [address] [facility] TABLET BY [facility]ukes - MOUTH Memoria TWICE l DAILY [facility] Ipratropium Ipratropium Yes Na Alegre [address] -Albuterol -Albuterol [place] [facility] - Memoria l [facility] Calcium Calcium Yes Na [facility] Carbamazepi Carbamazepi Yes Na Alegre [address] [facility] [facility] ne ne [facility] BuPROPion BuPROPion Yes Na Alegre [address] HCl ER (XL) HCl ER (XL) in the [facility]ukes - morning Memoria l [facility] Gabapentin Gabapentin Yes Na Alegre [address] [facility] Levothyroxi Levothyroxi Yes Na Alegre [address] [facility] [facility] ne Sodium ne Sodium on an Luke s - empty [facility] stomach [facility] Atorvastati Atorvastati Yes Na Alegre [address] [facility] [facility] n Calcium n Calcium [facility] - [facility] l [facility] Diclofenac Diclofenac Yes Na Alegre [address] [facility] [facility] Sodium Sodium with food [facility]ukes - or milk Memoria l [facility] Donepezil Donepezil Yes Na Alegre [address] HCl HCl at bedtime [facility] Protonix Protonix Yes Na Alegre [address] [facility] Ondansetron Ondansetron Yes Na Alegre [address] HCl HCl [facility] Oxybutynin Oxybutynin Yes Na Alegre [address] Chloride ER Chloride ER L ukes - Memoria l [facility] Folic Folic Yes Na Alegre [address] Acid-Vit Acid-Vit Lukes - B6-Vit B12 B6-Vit B12 Mem oria l [facility] Memantine Memantine Yes Na Alegre [address] HCl HCl [facility] Trazodone Trazodone Yes Na Alegre not [facility] HCl HCl defined [facility] Imodium A-D Imodium A-D Yes Na Alegre [address] [facility] [facility] as needed [facility] Melatonin Melatonin Yes Na Alegre [address] [facility] [facility] at bedtime [facility] - as needed Memoria with food l [facility] Vitamin D Vitamin D Yes Na Alegre [address] [facility] Zantac Zantac Yes Na Alegre [address] [facility] [facility] at bedtime [facility] Procedures Procedure Date / Time Performed Performing Clinician Roque rahman [id number] 2021-02-15 00:00:00 ENCPL [id number] 2021-02-15 00:00:00 ENCPL [id number] 2021-02-15 00:00:00 ENCPL [id number] 2021-02-15 00:00:00 ENCPL [id number] 2021-02-15 00:00:00 ENCPL [id number] 2021-02-15 00:00:00 ENCPL EMERGENCY DEPARTMENT 2020-05-16 06:01:00 Doctor Unassigned, No U [facility] DOCUMENTS Name Medical Branch [id number] 2020-04-22 00:00:00 ENCPL [id number] 2020-04-22 00:00:00 ENCPL [id number] 2020-04-22 00:00:00 ENCPL [id number] 2020-04-22 00:00:00 ENCPL [id number] 2020-04-22 00:00:00 ENCPL [id number] 2020-04-22 00:00:00 ENCPL [id number] 2020-04-22 00:00:00 ENCPL [id number] 2020-04-22 00:00:00 ENCPL [id number] 2020-04-22 00:00:00 ENCPL [id number] 2020-04-22 00:00:00 ENCPL [id number] 2020-04-22 00:00:00 ENCPL [id number] 2020-04-22 00:00:00 ENCPL [id number] 2020-04-22 00:00:00 ENCPL [id number] 2020-04-22 00:00:00 ENCPL [id number] 2020-04-19 00:00:00 ENCPL [id number] 2020-04-19 00:00:00 ENCPL [id number] 2020-04-19 00:00:00 ENCPL [id number] 2020-04-19 00:00:00 ENCPL [id number] 2020-04-19 00:00:00 ENCPL [id number] 2020-04-19 00:00:00 ENCPL [id number] 2020-04-19 00:00:00 ENCPL [id number] 2020-04-19 00:00:00 ENCPL [id number] 2020-04-19 00:00:00 ENCPL [id number] 2020-04-19 00:00:00 ENCPL [id number] 2020-04-19 00:00:00 ENCPL [id number] 2020-04-19 00:00:00 ENCPL [id number] 2020-04-19 00:00:00 ENCPL [id number] 2020-04-19 00:00:00 ENCPL [id number] 2020-04-19 00:00:00 ENCPL [id number] 2020-04-10 00:00:00 BOKSY.01 [facility] [id number] 2020-04-07 00:00:00 CORAN.03 [facility] [id number] 2020-04-07 00:00:00 CORAN.03 [facility] Encounters Start End Encounter Admission Attending Care Care Encounter Source Date/Time Date/Time Type Type Clinicians Facility Department ID 2021-07-31 Outpatient 3 [id number] ENCPL REF ENCPL 12:37:26 0802 2021-07-31 Outpatient 3 [id number] ENCPL REF ENCPL 11:03:22 1124 2021-07-31 Outpatient 3 [id number] ENCPL REF ENCPL 10:46:27 1012 2021-07-31 Outpatient 3 [id number] ENCPL REF ENCPL 10:45:42 1009 2021-07-31 Outpatient 3 [id number] ENCPL REF ENCPL 10:42:01 0930 2021-07-31 Outpatient 3 [id number] ENCPL REF ENCPL 10:41:35 0929 2021-07-30 Outpatient Alegre, Na STLMLC STLMLC [id number] [facility] 14:29:39 [id number] [facility] 2021-07-30 Outpatient Alegre, Na STLMLC STLMLC [id number] [facility] 14:29:06 [id number] [facility] 2021-07-30 Outpatient Alegre, Na STLMLC STLMLC [id number] [facility] 13:55:23 [id number] [facility] 2021-07-30 Outpatient Alegre, Na STLMLC STLMLC [id number] [facility] [facility] 13:54:44 [id number] [facility] 2021-07-30 Outpatient Alegre, Na STLMLC STLMLC [id number] [facility] 13:52:28 [id number] [facility] 2021-07-30 Outpatient Alegre, Na STLMLC STLMLC [id number] [facility] 13:24:20 [id number] [facility] 2021-07-30 Outpatient Alegre, Na STLMLC STLMLC [id number] [facility] 13:20:59 [id number] [facility] 2021-07-30 Outpatient Alegre, Na STLMLC STLMLC [id number] [facility] 13:20:20 [id number] [facility] 2021-07-30 Outpatient Alegre, Na STLMLC STLMLC [id number] [facility] 13:19:53 [id number] [facility] 2021-07-30 Outpatient Alegre, Na STLMLC STLMLC [id number] [facility] 13:02:26 [id number] [facility] 2021-07-30 Outpatient Alegre, Na STLMLC STLMLC [id number] [facility] [address] 13:01:57 [id number] [facility] 2021-07-30 Outpatient Alegre, Na STLMLC STLMLC [id number] 12:52:27 [id number] [facility] 2021-07-30 Outpatient Alegre, Na STLMLC STLMLC [id number] [facility] [address] 12:14:12 [id number] [facility] 2021-07-30 Outpatient Alegre, Na STLMLC STLMLC [id number] [facility] 12:00:44 [id number] [facility] 2021-07-30 Outpatient Alegre, Na STLMLC STLMLC [id number] 11:58:07 [id number] [facility] 2021-07-30 Outpatient Alegre, Na STLMLC STLMLC [id number] 11:57:28 [id number] [facility] 2021-07-30 Outpatient Alegre, Na STLMLC STLMLC [id number] 11:48:36 [id number] [facility] 2021-07-30 Outpatient Laegre, Na STLMLC STLMLC [id number] 11:48:10 [id number] [facility] 2021-07-30 Outpatient Codey, Na STLMLC STLMLC [id number] [facility] [facility] 11:28:48 [id number] [facility] 2021-07-30 Outpatient Codey, Na STLMLC STLMLC [id number] 11:28:22 [id number] [facility] 2020-04-07 Inpatient HCAPM CARRILLO [id number] [facility] 13:56:00 30013 [facility] 2019-08-24 Inpatient Shay Hall HCATB ELIZABETH [id number] [facility] 18:16:00 [id number] [facility] [place] 2021-07-28 2021-07-28 ambulatory STLMLC STLMLC [id number] [facility] 2021-06-12 2021-06-12 ambulatory STLMLC STLMLC [id number] [facility] 2021-05-22 2021-05-22 ambulatory STLMLC STLMLC [id number] [facility] 2021-05-19 2021-05-19 ambulatory STLMLC STLMLC [id number] [facility] 2021-04-04 2021-04-04 Outpatient STLMLC STLMLC [id number] [facility] 2021-03-26 2021-03-26 Outpatient STLMLC STLMLC [id number] [facility] 2021-03-12 2021-03-12 Outpatient STLMLC STLMLC [id number] [facility] 2021-02-14 2021-02-14 [facility] [id number] [facility] 14:44:00 14:44:00 Devika [id number] [facility] 2021-02-14 2021-02-14 Outpatient Ameena, HCAPM LABO [id number] [facility] 14:44:00 14:44:00 Devika [id number] [facility] 2021-02-13 2021-02-13 Outpatient Hilton, HCAPM RADI [id number] [facility] 16:14:00 16:14:00 Nel [id number] [facility] 2021-02-13 2021-02-13 Outpatient Ameena, HCAPM LABO [id number] [facility] 13:32:00 13:32:00 Devika [id number] [facility] 2021-02-13 2021-02-13 Outpatient Ameena, HCAPM LABO [id number] [facility] 13:32:00 13:32:00 Devika [id number] [facility] 2021-02-12 2021-02-12 Outpatient Ameena, HCACL LABO [id number] 04-20 [facility] 19:12:00 19:12:00 Devika [id number] [facility] 2021-02-12 2021-02-12 Outpatient Ameena, HCAPM LABO [id number] [facility] 11:17:00 11:17:00 Devika [id number] [facility] 2021-02-12 2021-02-12 Outpatient Ameena, HCAPM LABO [id number] [facility] 11:17:00 11:17:00 Devika [id number] [facility] 2021-02-11 2021-02-11 Outpatient Nicole Sorensen HCAPM RADI [id number] [facility] 22:28:00 22:28:00 [id number] [facility] 2021-02-05 2021-02-05 Outpatient SorensenNicole HCAPM RADI [id number] [facility] 13:47:00 13:47:00 [id number] [facility] 2021-02-04 2021-02-04 Outpatient STLMLC STLMLC [id number] [facility] 00[facility]:00 Jermaine spann [facility] 2021-01-08 2021-01-08 Outpatient STLMLC STLC [id number] [facility] 2021-01-01 2021-01-01 Outpatient STLMLC STLC [id number] [facility] 2020-12-18 2020-12-18 Outpatient STLMLC STLC [id number] [facility] 2020-10-15 2020-10-15 Outpatient STLMLC STLC [id number] [facility] 2020-07-12 2020-07-12 Outpatient STLC STLC [id number] [facility] 2020-06-11 2020-06-11 Outpatient AMEENA, HCAPM LABO [id number] [facility] 19:25:00 19:25:00 DEVIKA [facility] 2020-06-11 2020-06-11 Outpatient AMEENA, HCAPM LABO [id number] [facility] 19:25:00 19:25:00 DEVIKA [facility] 2020-06-10 2020-06-10 Outpatient AMEENA, HCAPM LABO [id number] [facility] 10:43:00 10:43:00 DEVIKA [facility] 2020-06-10 2020-06-10 Outpatient AMEENA, HCAPM LABO [id number] [facility] 10:43:00 10:43:00 DEVIKA [id number] [facility] 2020-06-09 2020-06-09 Outpatient AMEENA, HCAPM LABO [id number] 21-20 [facility] 13:58:00 13:58:00 DEVIKA [facility] 2020-05-16 2020-05-16 Orders Doctor TOMAS [id number] Univers 00:00:00 00:00:00 Only Unassigned, SHONDA [id number] ity of [place] [facility] [id number] Daniel as [id number] [address] 2020-05-16 2020-05-16 Orders Doctor GENOVEVA [id number] 00:00:00 00:00:00 Only Unassigned, SHONDA [id number] [place] [facility] [id number] 2020-05-11 2020-05-11 Outpatient STLMLC STLMLC [id number] [facility] 2020-05-09 2020-05-09 Outpatient STLMLC STLMLC [id number] [facility] 2020-05-06 2020-05-06 Outpatient STLMLC STLMLC [id number] [facility] 2020-04-26 2020-04-26 Outpatient AMEENA, HCAPM LABO [id number] [facility] 07:57:00 07:57:00 DEVIKA [id number] [facility] 2020-04-22 2020-04-22 Outpatient SERAFIN, HCAPM LABO [id number] [facility] 07:07:00 07:07:00 MARGY [id number] [facility] 2020-04-20 2020-04-20 Outpatient Xiomara, HCAPM LABO [id number] [facility] 16:40:00 16:40:00 Emelia [id number] [facility] 2020-04-20 2020-04-20 Outpatient Xiomara, HCAPM LABO [id number] [facility] 16:40:00 16:40:00 Emelia [id number] [facility] 2020-04-19 2020-04-19 Outpatient Xiomara, HCAPM LABO [id number] [facility] 12:15:00 12:15:00 Emelia [id number] [facility] 2020-04-08 2020-04-08 Outpatient Nela, HCACL LABO [id number] [facility] 00:10:00 00:10:00 Zurdo [id number] [facility] 2020-03-28 2020-03-28 Outpatient STLMLC STLMLC [id number] [facility] 00[facility]00:00 [facility] 2020-03-17 2020-03-17 [facility] [id number] 15:04:00 15:04:[address] Luke s - Drive [facility] Medicine l Medicine Outpati ent Clinics 2020-03-08 2020-03-08 [facility] [id number] 16:56:00 16:56:[address] Luke s - Drive [facility] Medicine Outpati ent Clinics 2020-02-09 2020-02-09 [facility] [id number] 16:59:00 16:59:[address] Luke s - Drive [facility] Medicine Outpati ent Clinics 2020-02-05 2020-02-05 [facility] [id number] 17:16:00 17:16:[address] Luke s - Drive [facility] Medicine Outpati ent Clinics 2020-01-23 2020-01-23 [facility] [id number] 10:32:00 10:32:[address] Luke s - Drive [facility] Medicine Outpati ent Clinics 2020-01-15 2020-01-15 [facility] [id number] 09:59:00 09:59:[address] Luke s - Drive [facility] Medicine Outpati ent Clinics 2020-01-10 2020-01-10 [facility] [id number] [facility] 14:25:00 14:25:[address] Luke s - Drive [facility] 2020-01-08 2020-01-08 [facility] [id number] [facility] 14:20:00 14:20:[address] Luke s - Drive [facility] 2020-01-07 2020-01-07 [facility] [id number] [address] 19:54:00 19:54:[address] [facility] [address] [employer] s - Road [facility] l Medicine Outpati ent Clinics 2020-01-04 2020-01-04 [facility] [id number] 13:37:00 13:37:[address] Luke s - Drive [facility] Medicine l Medicine Outpati ent Clinics 2019-09-13 2019-09-13 [facility] [id number] [address] 09[facility]14:00 09:14:00 t [place] [employer] [employer] Luke s - Drive [facility] Medicine l Medicine Outpati ent Clinics 2019-07-01 2019-07-01 [facility] [id number] 15:38:00 15:38:00 t [place] [employer] Luke s - Drive [facility] Medicine l Medicine Outpati ent Clinics 2019-06-27 2019-06-27 [facility] [id number] [address] 10:00:00 10:00:00 t [place] [employer] - Drive [facility] Medicine l Medicine Outpati ent Clinics 2019-06-21 2019-06-21 [facility] [id number] 14:45:00 14:45:00 t [place] [employer] s - Drive [facility] Medicine l Medicine Outpati ent Clinics 2019-06-16 2019-06-16 [facility] [id number] [facility] 15:42:00 15:42:00 t [place] [employer] Luke s - Drive [facility] Medicine l Medicine Outpati ent Clinics 2019-06-14 2019-06-14 [facility] [id number] [facility] 10:40:00 10:40:00 t [place] [employer] - Drive [facility] Medicine l Medicine Outpati ent Clinics 2019-06-06 2019-06-06 [facility] [id number] [address] 11:00:00 11:00:00 t [place] [employer] Luke s - Drive [facility] Medicine l Medicine Outpati ent Clinics 2019-06-05 2019-06-05 [facility] [id number] 16:47:00 16:47:00 t [place] [employer] - Drive [facility] Medicine l Medicine Outpati ent Clinics 2019-05-12 2019-05-12 [facility] [id number] 15:40:00 15:40:00 t [employer] [employer] - Drive [facility] Medicine l Medicine Outpati ent Clinics 2019-04-27 2019-04-27 [facility] [id number] [address] 16:10:00 16:10:00 t [place]ipple [employer] s - Drive [facility] Medicine Outpati ent Clinics 2019-04-27 2019-04-27 [facility] [id number] [address] 11:20:00 11:20:00 t [employer] s - Drive [facility] Medicine Outpati ent Clinics 2019-04-03 2019-04-03 [facility] [id number] 12:04:00 12:04:00 t [employer] s - Drive [facility] Medicine Outpati [facility] Clinics 2019-03-28 2019-03-28 [facility] [id number] 13:40:00 13:40:00 t [employer]ipple [employer] - [employer] [facility] Medicine Outpati ent Clinics 2019-03-21 2019-03-21 [facility] [id number] 15:40:00 15:40:00 t [employer] s - Drive [facility] Medicine Outpati ent Clinics 2019-03-14 2019-03-14 [facility] [id number] 13:13:00 13:13:00 t [employer] s - Drive [facility] Medicine Outpati [facility] Clinics 2019-03-13 2019-03-13 [facility] [id number] [address] 14:00:00 14:00:00 t [place] [place] s - Drive [facility] Outpati ent Clinics 2018-12-08 2018-12-08 [facility] [id number] [facility] 15:00:00 15:00:00 t [facility] ent Clinics Results Test Description Test Time Test Comments Results Result Comments Source BASIC METABOLIC PANEL 2021-02-14 15:05:00 Test Item Value Reference Range Interpretation Comme nts SODIUM (test code = NA) 141 mmol/L 134-147 N POTASSIUM (test code = K) 5.0 mmol/L 3.4-5.0 N CHLORIDE (test code = CL) 110 mmol/L 100-108 H CARBON DIOXIDE (test code = CO2) 27 mmol/L 21-32 N ANION GAP (test code = GAP) 4.0 GAP calc 4.0-15.0 N GLUCOSE (test code = GLU) 101 MG/DL 70-110 N BLOOD UREA NITROGEN (test code = BUN) 42 MG/DL 7-18 H GLOMERULAR FILTRATION RATE (test code = GFR) 39 estGFR >60 L CREATININE (test code = CREAT) 1.4 MG/DL 0.6-1.0 H CALCIUM (test code = CA) 9.6 MG/DL 8.5-10.1 N BASIC METABOLIC [id number] 14:03:00 Test Item Value Reference Range Interpretation Comments SODIUM (test code = NA) 142 mmol/L 134-147 N POTASSIUM (test code = K) 5.0 mmol/L 3.4-5.0 N CHLORIDE (test code = CL) 112 mmol/L 100-108 H CARBON DIOXIDE (test code = CO2) 24 mmol/L 21-32 N ANION GAP (test code = GAP) 6.0 GAP calc 4.0-15.0 N GLUCOSE (test code = GLU) 108 MG/DL 70-110 N BLOOD UREA NITROGEN (test code = 47 MG/DL 7-18 H BUN) GLOMERULAR FILTRATION RATE (test 39 estGFR >60 L code = GFR) CREATININE (test code = CREAT) 1.4 MG/DL 0.6-1.0 H CALCIUM (test code = CA) 9.0 MG/DL 8.5-10.1 N CBC W/AUTO [id number] 13:54:00 Test Item Value Reference Range Interpretation Comments WHITE BLOOD CELL (test code = 6.5 K/mm3 3.5-11.0 N WBC) RED BLOOD CELL (test code = 2.75 M/mm3 4.70-6.10 L RBC) HEMOGLOBIN (test code = HGB) 9.0 G/DL 10.4-14.9 L HEMATOCRIT (test code = HCT) 28.1 % 31.5-44.1 L MEAN CELL VOLUME (test code = 102.2 Fl 84.5-98.6 H MCV) MEAN CELL HGB (test code = MCH) 32.7 pg 27.0-34.2 N MEAN CELL HGB CONCETRATION 32.0 G/DL 31.5-34.0 N (test code = MCHC) RED CELL DISTRIBUTION WIDTH 13.6 SD 11.5-14.5 N (test code = RDW) PLATELET COUNT (test code = 126 K/mm3 150-450 L PLT) MEAN PLATELET VOLUME (test code 10.90 fL 7.0-10.5 H = MPV) NEUTROPHIL % (test code = NT%) 61.2 % 40-76 N IMMATURE GRANULOCYTE % (test 0.3 % 0.0-5.0 N code = IG%) LYMPHOCYTE % (test code = LY%) 22.9 % 20.5-51.1 N MONOCYTE % (test code = MO%) 8.7 % 1.7-9.3 N EOSINOPHIL % (test code = EO%) 6.7 % 0.0-6.0 H BASOPHIL % (test code = BA%) 0.2 % 0.0-2.0 N NUCLEATED RBC % (test code = 0.0 /100WBC% 0.0-1.0 N NRBC%) NEUTROPHIL # (test code = NT#) 4.0 K/mm3 1.8-7.6 N IMMATURE GRANULOCYTE # (test 0.02 x10 3/uL 0.00-0.03 N code = IG#) LYMPHOCYTE # (test code = LY#) 1.5 K/mm3 0.6-3.2 N MONOCYTE # (test code = MO#) 0.6 K/mm3 0.3-1.1 N EOSINOPHIL # (test code = EO#) 0.4 K/mm3 0.0-0.4 N BASOPHIL # (test code = BA#) 0.0 K/mm3 0.0-0.1 N NUCLEATED RBC # (test code = 0.0 K/mm3 0.0-0.1 N NRBC#) MANUAL DIFF REQUIRED (test code NO DIFF/SCN CRITERIA = MDIFF) UA RFLX MICR CULT IF [id number] 11:59:00 Test Item Value Reference Range Interpretation Comments UA COLOR (test code = LIGHT YELLOW YEL/STRAW COLU) discript UA APPEARANCE (test code SLIGHTLY CLOUDY CLEAR = APPU) discript UA GLUCOSE DIPSTICK (test NEGATIVE mg/dL NEG code = DGLUU) UA BILIRUBIN DIPSTICK NEGATIVE mg/dL NEG (test code = BILU) UA KETONE DIPSTICK (test NEGATIVE mg/dL NEG code = KETU) UA SPECIFIC GRAVITY (test 1.020 SG 1.005-1.030 code = SGU) UA BLOOD DIPSTICK (test TRACE mg/DL NEG A code = DAMIEN) UA PH DIPSTICK (test code 6.0 pH UNITS 5.0-7.0 = RJ) UA PROTEIN DIPSTICK (test TRACE mg/dL NEG A code = PROU) UA UROBILINIOGEN DIPSTICK 0.2 mg/dL <2.0 (test code = URO) UA NITRITE DIPSTICK (test POSITIVE SCREEN NEG A code = MARY ALICE) UA LEUKOCYTE ESTERASE 2+ Leuk/mcL NEGATIVE A DIPSTICK (test code = LEUU) UA WBC (test code = WBCU) >50 #WBC/HPF 0-3 A UA RBC (test code = RBCU) 3-5 #RBC/HPF 0-3 A UA BACTERIA (test code = 4+ /HPF NONE-TRACE A BACU) UA SQUAMOUS CELLS (test TRACE /HPF NONE code = SQU) UA CULTURE NEEDED? (test YES,WBC>10 & EPI<25 Culture CHK code = UACULT) Criteria UA RFLX MICR CULT IF [id number] 11:55:00 Test Item Value Reference Range Interpretation Comments UA COLOR (test code = LIGHT YELLOW YEL/STRAW COLU) discript UA APPEARANCE (test code SLIGHTLY CLOUDY CLEAR = APPU) discript UA GLUCOSE DIPSTICK (test NEGATIVE mg/dL NEG code = DGLUU) UA BILIRUBIN DIPSTICK NEGATIVE mg/dL NEG (test code = BILU) UA KETONE DIPSTICK (test NEGATIVE mg/dL NEG code = KETU) UA SPECIFIC GRAVITY (test 1.020 SG 1.005-1.030 code = SGU) UA BLOOD DIPSTICK (test TRACE mg/DL NEG A code = DAMIEN) UA PH DIPSTICK (test code 6.0 pH UNITS 5.0-7.0 = RJ) UA PROTEIN DIPSTICK (test TRACE mg/dL NEG A code = PROU) UA UROBILINIOGEN DIPSTICK 0.2 mg/dL <2.0 (test code = URO) UA NITRITE DIPSTICK (test POSITIVE SCREEN NEG A code = MARY ALICE) UA LEUKOCYTE ESTERASE 2+ Leuk/mcL NEGATIVE A DIPSTICK (test code = LEUU) UA CULTURE NEEDED? (test Criteria Culture CHK code = UACULT) - CT HEAD/BRAIN W/O [id number] 23:15:00 [facility] 1945 Sex: F Name: SHANTEL LAURENT [facility]ly [facility] : 8Age/S: 75 / F [address] Unit #: [id number] Loc: [place] [address] Phys: Nicole Sorensen MD Acct: [id number] Dis Date: Status: REG REF PHONE#: [phone] Exam Date: 02/11/2021 2250 FAX #: Reason:CVA, COPD, TIA EXAMS: CPT: [id number] CT HEAD/BRAIN W/O CONT 96990 DICTATION LOCATION: [facility] HISTORY: Female, 75 years of age with CVA, COPD, TIA EXAM: CT BRAIN WITHOUT IV CONTRAST COMPARISON: MRI brain without contrast 10/06/2020, CT brain without contrast 04/07/2020 TECHNIQUE: Helical axial images were obtained through the brain without IV contrast. Coronal and sagittal reformats were performed. One or more of the following dose reduction techniques were used: Automated exposure control; adjustment of the mA and/or kV according to the patient size; and/or use of iterative reconstruction technique. FINDINGS: Images are moderately degraded by patient motion. There is no acute intra-axial or extra- axial hemorrhage, mass, mass effect or midline shift. No acute loss of the cortical slaughter/white junctions is seen. There is diffuse parenchymal atrophy consistent with patient age. Mild periventricular hypodensities are consistent with chronic small vessel ischemic disease. No calvarial fracture is seen. There is chronic mucosal thickening and periosteal reaction in right maxillary sinus, unchanged. Other sinuses and mastoids are clear. IMPRESSION: 1. No acute calvarial fracture, intracranial hemorrhage, infarct, or mass. 2. Age-related atrophy and chronic small vessel ischemic injuries. 3. Chronic right maxillary sinusitis. at 2315 Reported and signed by: Sierra Ramos MD CC: Nicole Sorensen MD Technologist:RT Mila(R) CTDI: DLP: Trnscb Date/Time: 02/11/2021 (2314) [email or web address] Orig Print D/T: S: 02/11/2021 (287) PAGE 1 Signed Report- MRI BRAIN W/O [id number] 15:12:00 [facility] 1945 Sex: F FAX: Nicole Cortes MD Camps: St: REG Name: SHANTEL LAURENT [facility] : 1945 Age/S: 75/F [address] Unit #: [id number] Loc: [place] [address] Phys: Nicole Sorensen MD Acct: [id number] Dis Date: Status: REG REF PHONE #: [phone] Exam Date: 02/05/2021 5166 FAX #: Reason: CVA EXAMS: CPT: [id number] MRI BRAIN W/O CONTRAST 98065 B2 - MRI BRAIN W/O CONTRAST HISTORY: CVA TECHNIQUE: Multiplanar multisequence MR images of the brain were obtained without intravenous contrast. COMPARISON: 04/08/2020 FINDINGS: Scattered hyperintense foci in the frontal and parietal white matter on FLAIR andT2-weighted images. There is no mass, mass effect or abnormal extra-axial fluid collection. Diffusion-weighted images show no hyperacute, acute or early subacute infarction.The ventricles are normal in size, shape, and position. There are normal signal voids in the larger intracranial vessels. Moderate mucosal thickening with aerated secretions in the right maxillary sinus. The paranasal sinuses and mastoid air cells are otherwise predominantly clear. The marrow signal pattern is within normal limits. IMPRESSION: Mild white matter microvascular disease. No significant intracranialabnormalities. Findings compatible with acute sinusitis in the appropriate clinical setting. at 1512 Reported and signed by: Herbie Graves M.D. CC: Nicole Sorensen MD Technologist: Morenita Orta, RT(R)(MR) Transcribed Date/Time/By: 02/05/2021 (1511) :[email or web address] Orig Print D/T: S: 02/05/2021 (7894) PAGE 1 Signed ReportCOVID 19 INHOUSE [id number] 19:52:00 Test Item Value Reference Range Interpretation Comments COVID 19 INHOUSE AG NEGATIVE Negative Per manu facturer, (test code = negative result s should [id number]) be treated aspr esumptive and, if inconsi [...] nicalsigns and symptoms co nsistent with COVID-19. [id number] 10:59:00 Test Item Value Reference Range Interpretation Comments AMMONIA (test code = AMM) 39 mcMOL/L 11-32 H CBC W/AUTO [id number] 14:34:00 Test Item Value Reference Range Interpretation Comments WHITE BLOOD CELL (test 4.6 K/mm3 3.5-11.0 N code = WBC) RED BLOOD CELL (test 2.83 M/mm3 4.70-6.10 L code = RBC) HEMOGLOBIN (test code 8.8 G/DL 10.4-14.9 L = HGB) HEMATOCRIT (test code 27.4 % 31.5-44.1 L = HCT) MEAN CELL VOLUME (test 96.8 Fl 84.5-98.6 N code = MCV) MEAN CELL HGB (test 31.1 pg 27.0-34.2 N code = MCH) MEAN CELL HGB 32.1 G/DL 31.5-34.0 N CONCETRATION (test code = MCHC) RED CELL DISTRIBUTION 13.9 SD 11.5-14.5 N WIDTH (test code = RDW) PLATELET COUNT (test 101 K/mm3 150-450 L PLATELE T COUNT code = PLT) REVIEWED AND VERIFIED. MEAN PLATELET VOLUME 11.80 fL 7.0-10.5 H (test code = MPV) NEUTROPHIL % (test 61.9 % 40-76 N code = NT%) IMMATURE GRANULOCYTE % 0.2 % 0.0-5.0 N (test code = IG%) LYMPHOCYTE % (test 26.5 % 20.5-51.1 N code = LY%) MONOCYTE % (test code 9.2 % 1.7-9.3 N = MO%) EOSINOPHIL % (test 2.0 % 0.0-6.0 N code = EO%) BASOPHIL % (test code 0.2 % 0.0-2.0 N = BA%) NUCLEATED RBC % (test 0.0 /100WBC% 0.0-1.0 N code = NRBC%) NEUTROPHIL # (test 2.8 K/mm3 1.8-7.6 N code = NT#) IMMATURE GRANULOCYTE # 0.01 x10 3/uL 0.00-0.03 N (test code = IG#) LYMPHOCYTE # (test 1.2 K/mm3 0.6-3.2 N code = LY#) MONOCYTE # (test code 0.4 K/mm3 0.3-1.1 N = MO#) EOSINOPHIL # (test 0.1 K/mm3 0.0-0.4 N code = EO#) BASOPHIL # (test code 0.0 K/mm3 0.0-0.1 N = BA#) NUCLEATED RBC # (test 0.0 K/mm3 0.0-0.1 N code = NRBC#) MANUAL DIFF REQUIRED NO DIFF/SCN CRITERIA (test code = MDIFF) COMPREHENSIVE METABOLIC [id number] 14:33:00 Test Item Value Reference Range Interpretation Comments SODIUM (test code = NA) 140 mmol/L 134-147 N POTASSIUM (test code = K) 5.0 mmol/L 3.4-5.0 N CHLORIDE (test code = CL) 106 mmol/L 100-108 N CARBON DIOXIDE (test code = CO2) 30 mmol/L 21-32 N ANION GAP (test code = GAP) 4.0 GAP calc 4.0-15.0 N GLUCOSE (test code = GLU) 95 MG/DL 70-110 N BLOOD UREA NITROGEN (test code = 36 MG/DL 7-18 H BUN) GLOMERULAR FILTRATION RATE (test 43 estGFR >60 L code = GFR) CREATININE (test code = CREAT) 1.3 MG/DL 0.6-1.0 H TOTAL PROTEIN (test code = PROT) 5.6 G/DL 6.4-8.2 L ALBUMIN (test code = ALB) 2.7 G/DL 3.4-5.0 L GLOBULIN (test code = GLOB) 2.9 GM/dL ALBUMIN/GLOBULIN RATIO (test 0.9 RATIO 1.2-2.2 L code = A/G) CALCIUM (test code = CA) 8.8 MG/DL 8.5-10.1 N BILIRUBIN TOTAL (test code = 0.20 MG/DL 0.2-1.2 N BILT) SGOT/AST (test code = AST) 15 Unit/L 15-37 N SGPT/ALT (test code = ALT) 14 Unit/L 12-78 N ALKALINE PHOSPHATASE TOTAL (test 91 Unit/L 45-117 N code = ALKP) CBC W/AUTO [id number] 08:08:00 Test Item Value Reference Range Interpretation Comments WHITE BLOOD CELL (test code = 4.3 K/mm3 3.5-11.0 N WBC) RED BLOOD CELL (test code = 2.50 M/mm3 4.70-6.10 L RBC) HEMOGLOBIN (test code = HGB) 7.9 G/DL 10.4-14.9 L HEMATOCRIT (test code = HCT) 25.2 % 31.5-44.1 L MEAN CELL VOLUME (test code = 100.8 Fl 84.5-98.6 H MCV) MEAN CELL HGB (test code = MCH) 31.6 pg 27.0-34.2 N MEAN CELL HGB CONCETRATION 31.3 G/DL 31.5-34.0 L (test code = MCHC) RED CELL DISTRIBUTION WIDTH 15.2 SD 11.5-14.5 H (test code = RDW) PLATELET COUNT (test code = 148 K/mm3 150-450 L PLT) MEAN PLATELET VOLUME (test code 11.70 fL 7.0-10.5 H = MPV) NEUTROPHIL % (test code = NT%) 51.4 % 40-76 N IMMATURE GRANULOCYTE % (test 0.2 % 0.0-5.0 N code = IG%) LYMPHOCYTE % (test code = LY%) 36.1 % 20.5-51.1 N MONOCYTE % (test code = MO%) 8.1 % 1.7-9.3 N EOSINOPHIL % (test code = EO%) 3.5 % 0.0-6.0 N BASOPHIL % (test code = BA%) 0.7 % 0.0-2.0 N NUCLEATED RBC % (test code = 0.0 /100WBC% 0.0-1.0 N NRBC%) NEUTROPHIL # (test code = NT#) 2.2 K/mm3 1.8-7.6 N IMMATURE GRANULOCYTE # (test 0.01 x10 3/uL 0.00-0.03 N code = IG#) LYMPHOCYTE # (test code = LY#) 1.6 K/mm3 0.6-3.2 N MONOCYTE # (test code = MO#) 0.4 K/mm3 0.3-1.1 N EOSINOPHIL # (test code = EO#) 0.2 K/mm3 0.0-0.4 N BASOPHIL # (test code = BA#) 0.0 K/mm3 0.0-0.1 N NUCLEATED RBC # (test code = 0.0 K/mm3 0.0-0.1 N NRBC#) MANUAL DIFF REQUIRED (test code NO DIFF/SCN CRITERIA = MDIFF) CBC W/AUTO [id number] 07:20:00 Test Item Value Reference Range Interpretation Comments WHITE BLOOD CELL (test code = 5.7 K/mm3 3.5-11.0 N WBC) RED BLOOD CELL (test code = 2.28 M/mm3 4.70-6.10 L RBC) HEMOGLOBIN (test code = HGB) 7.2 G/DL 10.4-14.9 L HEMATOCRIT (test code = HCT) 23.5 % 31.5-44.1 L MEAN CELL VOLUME (test code = 103.1 Fl 84.5-98.6 H MCV) MEAN CELL HGB (test code = MCH) 31.6 pg 27.0-34.2 N MEAN CELL HGB CONCETRATION 30.6 G/DL 31.5-34.0 L (test code = MCHC) RED CELL DISTRIBUTION WIDTH 14.3 SD 11.5-14.5 N (test code = RDW) PLATELET COUNT (test code = 150 K/mm3 150-450 N PLT) MEAN PLATELET VOLUME (test code 12.00 fL 7.0-10.5 H = MPV) NEUTROPHIL % (test code = NT%) 52.0 % 40-76 N IMMATURE GRANULOCYTE % (test 0.4 % 0.0-5.0 N code = IG%) LYMPHOCYTE % (test code = LY%) 29.9 % 20.5-51.1 N MONOCYTE % (test code = MO%) 6.4 % 1.7-9.3 N EOSINOPHIL % (test code = EO%) 10.8 % 0.0-6.0 H BASOPHIL % (test code = BA%) 0.5 % 0.0-2.0 N NUCLEATED RBC % (test code = 0.0 /100WBC% 0.0-1.0 N NRBC%) NEUTROPHIL # (test code = NT#) 2.9 K/mm3 1.8-7.6 N IMMATURE GRANULOCYTE # (test 0.02 x10 3/uL 0.00-0.03 N code = IG#) LYMPHOCYTE # (test code = LY#) 1.7 K/mm3 0.6-3.2 N MONOCYTE # (test code = MO#) 0.4 K/mm3 0.3-1.1 N EOSINOPHIL # (test code = EO#) 0.6 K/mm3 0.0-0.4 H BASOPHIL # (test code = BA#) 0.0 K/mm3 0.0-0.1 N NUCLEATED RBC # (test code = 0.0 K/mm3 0.0-0.1 N NRBC#) MANUAL DIFF REQUIRED (test code NO DIFF/SCN CRITERIA = MDIFF) CBC W/AUTO [id number] 06:15:00 Test Item Value Reference Range Interpretation Comments WHITE BLOOD CELL (test code = 5.1 K/mm3 3.5-11.0 N WBC) RED BLOOD CELL (test code = 2.22 M/mm3 4.70-6.10 L RBC) HEMOGLOBIN (test code = HGB) 7.0 G/DL 10.4-14.9 L HEMATOCRIT (test code = HCT) 22.4 % 31.5-44.1 L MEAN CELL VOLUME (test code = 100.9 Fl 84.5-98.6 H MCV) MEAN CELL HGB (test code = MCH) 31.5 pg 27.0-34.2 N MEAN CELL HGB CONCETRATION 31.3 G/DL 31.5-34.0 L (test code = MCHC) RED CELL DISTRIBUTION WIDTH 14.1 SD 11.5-14.5 N (test code = RDW) PLATELET COUNT (test code = 128 K/mm3 150-450 L PLT) MEAN PLATELET VOLUME (test code 11.10 fL 7.0-10.5 H = MPV) NEUTROPHIL % (test code = NT%) 51.4 % 40-76 IMMATURE GRANULOCYTE % (test 0.2 % 0.0-5.0 N code = IG%) LYMPHOCYTE % (test code = LY%) 29.9 % 20.5-51.1 N MONOCYTE % (test code = MO%) 6.7 % 1.7-9.3 N EOSINOPHIL % (test code = EO%) 11.4 % 0.0-6.0 H BASOPHIL % (test code = BA%) 0.4 % 0.0-2.0 N NUCLEATED RBC % (test code = 0.0 /100WBC% 0.0-1.0 N NRBC%) NEUTROPHIL # (test code = NT#) 2.6 K/mm3 1.8-7.6 N IMMATURE GRANULOCYTE # (test 0.01 x10 3/uL 0.00-0.03 N code = IG#) LYMPHOCYTE # (test code = LY#) 1.5 K/mm3 0.6-3.2 N MONOCYTE # (test code = MO#) 0.3 K/mm3 0.3-1.1 N EOSINOPHIL # (test code = EO#) 0.6 K/mm3 0.0-0.4 H BASOPHIL # (test code = BA#) 0.0 K/mm3 0.0-0.1 N NUCLEATED RBC # (test code = 0.0 K/mm3 0.0-0.1 N NRBC#) MANUAL DIFF REQUIRED (test code NO DIFF/SCN CRITERIA = MDIFF) CBC W/AUTO [id number] 16:46:00 Test Item Value Reference Range Interpretation Comments WHITE BLOOD CELL (test code = 5.4 K/mm3 3.5-11.0 N WBC) RED BLOOD CELL (test code = 2.18 M/mm3 4.70-6.10 L RBC) HEMOGLOBIN (test code = HGB) 7.0 G/DL 10.4-14.9 L HEMATOCRIT (test code = HCT) 21.9 % 31.5-44.1 L MEAN CELL VOLUME (test code = 100.5 Fl 84.5-98.6 H MCV) MEAN CELL HGB (test code = MCH) 32.1 pg 27.0-34.2 N MEAN CELL HGB CONCETRATION 32.0 G/DL 31.5-34.0 N (test code = MCHC) RED CELL DISTRIBUTION WIDTH 13.9 SD 11.5-14.5 N (test code = RDW) PLATELET COUNT (test code = 122 K/mm3 150-450 L PLT) MEAN PLATELET VOLUME (test code 11.30 fL 7.0-10.5 H = MPV) NEUTROPHIL % (test code = NT%) 57.3 % 40-76 N IMMATURE GRANULOCYTE % (test 0.2 % 0.0-5.0 N code = IG%) LYMPHOCYTE % (test code = LY%) 22.3 % 20.5-51.1 N MONOCYTE % (test code = MO%) 6.5 % 1.7-9.3 N EOSINOPHIL % (test code = EO%) 13.1 % 0.0-6.0 H BASOPHIL % (test code = BA%) 0.6 % 0.0-2.0 N NUCLEATED RBC % (test code = 0.0 /100WBC% 0.0-1.0 N NRBC%) NEUTROPHIL # (test code = NT#) 3.1 K/mm3 1.8-7.6 N IMMATURE GRANULOCYTE # (test [...] NO DIFF/SCN CRITERIA = MDIFF) CBC W/AUTO [id number] 12:23:00 Test Item Value Reference Range Interpretation [...] (test code NO DIFF/SCN CRITERIA = MDIFF) [id number] 15:11:00 Test Item Value Reference Range Interpretation Comments TRANSFERRRIN (test code 193 mg/dL 192-364 Perf ormed At: BN = TRANSF) [facility] [id number] ra [place] ZAMORA Ph:[phone] GLUCOSE BEDSIDE [id number] 13:01:00 Test Item Value Reference Range Interpretation Comments GLUCOSE BEDSIDE TESTING (test code 101 mg/dL 70-110 N = GLUBED) GLUCOSE BEDSIDE [id number] 08:35:00 Test Item Value Reference Range Interpretation Comments GLUCOSE BEDSIDE TESTING (test code 101 mg/dL 70-110 N = GLUBED) GLUCOSE BEDSIDE [id number] 19:42:00 Test Item Value Reference Range Interpretation Comments GLUCOSE BEDSIDE TESTING (test code = 93 mg/dL 70-110 N GLUBED) GLUCOSE BEDSIDE [id number] 16:13:00 Test Item Value Reference Range Interpretation Comments GLUCOSE BEDSIDE TESTING (test code = 96 mg/dL 70-110 N GLUBED) GLUCOSE BEDSIDE [id number] 12:55:00 Test Item Value Reference Range Interpretation Comments GLUCOSE BEDSIDE TESTING (test code 104 mg/dL 70-110 N = GLUBED) CBC W/AUTO [id number] 12:42:00 Test Item Value Reference Range Interpretation [...] 35 % calc 12-57 N FESAT) VITAMIN [id number] 08:58:00 Test Item Value Reference Range Interpretation Comments VITAMIN B12 (test code = VITB12) 479 PG/ML 183-986 N FOLIC [id number] 08:58:00 Test Item Value Reference Range Interpretation Comments FOLIC ACID (test code = FOL) 7.00 NG/ML 3.10-17.50 N [id number] 08:58:00 Test Item Value Reference Range Interpretation Comments FERRITIN (test code = TIO) 154.1 NG/ML 3.0-105.0 H GLUCOSE BEDSIDE [id number] 08:22:00 Test Item Value Reference Range Interpretation Comments GLUCOSE BEDSIDE TESTING (test code 107 mg/dL 70-110 N = GLUBED) BASIC METABOLIC [id number] 06:11:00 Test Item Value Reference Range Interpretation [...] CA) 8.8 MG/DL 8.5-10.1 N GLUCOSE BEDSIDE [id number] 20:03:00 Test Item Value Reference Range Interpretation Comments GLUCOSE BEDSIDE TESTING (test code 124 mg/dL 70-110 H = GLUBED) CBC W/AUTO [id number] 08:57:00 Test Item Value Reference Range Interpretation [...] NT WITH AUTO DIFFERENTI AL. CBC W/AUTO [id number] 08:57:00 Test Item Value Reference Range Interpretation [...] DIFF REQUIRED NO DIFF/SCN CRITERIA SLIDE R EVANTHONYW (test code = MDIFF) CONSISTA NT WITH AUTO DIFFERENTI AL. RBC [id number] 08:57:00 Test Item Value Reference Range Interpretation Comments PLATELET ESTIMATE DECREASED THOUSAND ADEQUATE PLAT ELET COUNT (test code = REVIEWED AND PLTEST) VERIFIED. PLATELET MORPHOLOGY NORMAL (test code = PLTMORPH) CBC W/AUTO [id number] 08:57:00 Test Item Value Reference Range Interpretation [...] NT WITH AUTO DIFFERENTI AL. GLUCOSE BEDSIDE [id number] 07:43:00 Test Item Value Reference Range Interpretation Comments GLUCOSE BEDSIDE TESTING (test code = 97 mg/dL 70-110 N GLUBED) BASIC METABOLIC [id number] 07:02:00 Test Item Value Reference Range Interpretation [...] code = CA) 7.8 MG/DL 8.5-10.1 L [id number] 07:02:00 Test Item Value Reference Range Interpretation Comments MAGNESIUM (test code = MAG) 1.5 MG/DL 1.8-2.4 L CBC W/AUTO [id number] 06:50:00 Test Item Value Reference Range Interpretation [...] code = DIFF/SCN CRITERIA MDIFF) GLUCOSE BEDSIDE [id number] 20:58:00 Test Item Value Reference Range Interpretation Comments GLUCOSE BEDSIDE TESTING (test code = 90 mg/dL 70-110 N GLUBED) GLUCOSE BEDSIDE [id number] 18:52:00 Test Item Value Reference Range Interpretation Comments GLUCOSE BEDSIDE TESTING (test code = 92 mg/dL 70-110 N GLUBED) BASIC METABOLIC [id number] 17:20:00 Test Item Value Reference Range Interpretation [...] = CA) 9.2 MG/DL 8.5-10.1 N CORTISOL [id number] 15:12:00 Test Item Value Reference Range Interpretation Comments CORTISOL AM (test code 9.8 ug/dL 6.2-19.4 Perfo rmed At: HD = CORTAM) [facility] [address] [id number] stacie Spann MD Ph:[phone] GLUCOSE BEDSIDE [id number] 14:56:00 Test Item Value Reference Range Interpretation Comments GLUCOSE BEDSIDE TESTING (test code 100 mg/dL 70-110 N = GLUBED) THYROID STIMULATING [id number] 13:24:00 Test Item Value Reference Range Interpretation Comments THYROID STIMULATING HORMONE 6.680 mcIU/ML 0.340-4.820 H (test code = TSH) - CT ABD PELVIS [id number] 11:35:00 Name: SHANTEL LAURENT [place] : 1945 Age/S: 74 / F [address] [address] Unit #: [id number] Loc: [place] [address] Phys: Ursula Do MD Acct: [id number] Dis Date: Status: ADM IN PHONE #: [phone] Exam Date: 04/11/2020 1115 FAX #: Reason: abdominal pain EXAMS: CPT: [id number] CT ABD PELVIS W/CONT 32333 HISTORY: abdominal pain TECHNIQUE: Helical imaging of [...] [place] : 1945 Age/S: 74 / F [address] Unit #: [id number] Loc: [place] [address] Phys: Ursula Do MD Acct: [id number] Dis Date: Status: ADM IN PHONE #: [phone] Exam Date: 04/11/2020 1115 FAX #:Reason: abdominal pain EXAMS: CPT: [id number] CT ABD PELVIS W/CONT 08481 <Continued> No significant bone lesions. IMPRESSION: 1. [...] (1135) t.NOÉR.NB16 Orig Print D/T: S: 04/11/2020 (1138) PAGE 2 Signed ReportGLUCOSE BEDSIDE [id number] 08:00:00 Test Item Value Reference Range Interpretation Comments GLUCOSE BEDSIDE TESTING (test code 152 mg/dL 70-110 H = GLUBED) CBC W/AUTO [id number] 06:43:00 Test Item Value Reference Range Interpretation [...] code NO DIFF/SCN CRITERIA = MDIFF) RBC [id number] 06:43:00 Test Item Value Reference Range Interpretation Comments PLATELET ESTIMATE (test SLIGHTLY DECREASED ADEQUATE code = PLTEST) THOUSAND PLATELET MORPHOLOGY NORMAL (test code = PLTMORPH) CBC W/AUTO [id number] 06:42:00 Test Item Value Reference Range Interpretation [...] NO DIFF/SCN CRITERIA = MDIFF) CBC W/AUTO [id number] 06:42:00 Test Item Value Reference Range Interpretation [...] NO DIFF/SCN CRITERIA = MDIFF) GLUCOSE BEDSIDE [id number] 06:33:00 Test Item Value Reference Range Interpretation Comments GLUCOSE BEDSIDE TESTING (test code 154 mg/dL 70-110 H = GLUBED) BASIC METABOLIC [id number] 06:18:00 Test Item Value Reference Range Interpretation [...] MG/DL 8.5-10.1 L - XR CHEST 1 [id number] 21:13:00 Name: SHANTEL LAURENT [facility]ly [facility] : 1945 Age/S: 74 / F [address] [facility] Unit #: [id number] Loc: [place] [address] Phys: Ursula Do MD Acct: [id number] Dis Date: Status: ADM IN PHONE #: [phone] Exam Date: 04/10/20202106 FAX #: Reason: PICC LINE PLACEMENT EXAMS: CPT: [id number] XR CHEST 1 V 81720 Fluoro Time: DAP (Gy m2): Air Kerma [...] line tip is at distal SVC. at 2112 Reported and signed by: Karey Oconnor MD CC: Zurdo Rondon MD; Ursula Do MD PAGE 1 Signed Report Name: SHANTEL LAURENT [place] : 1945 Age/S: 74 / F [address] [facility] Unit #: [id number] Loc: [place] [address] Phys: Ursula Do MD Acct: [id number] Dis Date: Status: ADM IN PHONE #: [phone] Exam Date: 04/10/20202106 FAX #: Reason: PICC LINE PLACEMENT EXAMS: CPT: [id number] XR CHEST 1 V 83123 Fluoro Time: DAP (Gy m2): Air Kerma (mGy): <Continued> Technologist: Joelle So RT(R)(CT) Trnscb Date/Time: 04/10/2020 (2112) KingEFM1 Orig Print D/T: S: 04/10/2020 (2115) PAGE 2 Signed ReportGLUCOSE BEDSIDE [id number] 20:19:00 Test Item Value Reference Range Interpretation Comments GLUCOSE BEDSIDE TESTING (test code = 76 mg/dL 70-110 N GLUBED) GLUCOSE BEDSIDE [id number] 16:22:00 Test Item Value Reference Range Interpretation Comments GLUCOSE BEDSIDE TESTING (test code = 82 mg/dL 70-110 N GLUBED) CBC W/AUTO [id number] 07:47:00 Test Item Value Reference Range Interpretation [...] NO DIFF/SCN CRITERIA = MDIFF) BASIC METABOLIC [id number] 06:50:00 Test Item Value Reference Range Interpretation [...] CA) 8.8 MG/DL 8.5-10.1 N GLUCOSE BEDSIDE [id number] 00:23:00 Test Item Value Reference Range Interpretation Comments GLUCOSE BEDSIDE TESTING (test code = 88 mg/dL 70-110 N GLUBED) GLUCOSE BEDSIDE [id number] 22:47:00 Test Item Value Reference Range Interpretation Comments GLUCOSE BEDSIDE TESTING (test code = 50 mg/dL 70-110 L GLUBED) GLUCOSE BEDSIDE [id number] 20:50:00 Test Item Value Reference Range Interpretation Comments GLUCOSE BEDSIDE TESTING (test code = 62 mg/dL 70-110 L GLUBED) BASIC METABOLIC [id number] 19:19:00 Test Item Value Reference Range Interpretation [...] CA) 9.5 MG/DL 8.5-10.1 N BASIC METABOLIC [id number] 15:26:00 Test Item Value Reference Range Interpretation [...] CA) 9.0 MG/DL 8.5-10.1 N GLUCOSE BEDSIDE [id number] 12:06:00 Test Item Value Reference Range Interpretation Comments GLUCOSE BEDSIDE TESTING (test code = 81 mg/dL 70-110 N GLUBED) GLUCOSE BEDSIDE [id number] 12:06:00 Test Item Value Reference Range Interpretation Comments GLUCOSE BEDSIDE TESTING (test code = 54 mg/dL 70-110 L GLUBED) GLUCOSE BEDSIDE [id number] 08:14:00 Test Item Value Reference Range Interpretation Comments GLUCOSE BEDSIDE TESTING (test code = 46 mg/dL 70-110 L GLUBED) GLUCOSE BEDSIDE [id number] 08:14:00 Test Item Value Reference Range Interpretation Comments GLUCOSE BEDSIDE TESTING (test code = 34 mg/dL 70-110 LL GLUBED) CBC W/AUTO [id number] 06:08:00 Test Item Value Reference Range Interpretation [...] code NO DIFF/SCN CRITERIA = MDIFF) RBC [id number] 06:08:00 Test Item Value Reference Range Interpretation Comments PLATELET ESTIMATE DECREASED ADEQUATE PLATELET C OUNT (test code = THOUSAND VERIFIED BY PLTEST) EXAMINATION OF PERIPHERAL BLOODSMEAR.MANU AL PLT ESTIMATE 92,000-115,000 PLATELET NORMAL MORPHOLOGY (test code = PLTMORPH) CBC W/AUTO [id number] 06:07:00 Test Item Value Reference Range Interpretation [...] NO DIFF/SCN CRITERIA = MDIFF) CBC W/AUTO [id number] 06:07:00 Test Item Value Reference Range Interpretation [...] NO DIFF/SCN CRITERIA = MDIFF) BASIC METABOLIC [id number] 06:06:00 Test Item Value Reference Range Interpretation [...] CA) 9.4 MG/DL 8.5-10.1 N CBC W/AUTO [id number] 05:48:00 Test Item Value Reference Range Interpretation [...] DIFF/SCN CRITERIA MDIFF) - MRI BRAIN W/O [id number] 19:59:00 FAX: Zurdo Perales MD [phone] Camps: PM St: ADM Name: SHANTEL LAURENT [place] : 1945 Age/S: 74/F [address] Unit #: [id number] Loc: L.ICU[address] [place] [address] Phys: Zurdo Rondon MD Acct: [id number] Dis Date: Status: ADM IN PHONE #: [phone] Exam Date: 04/08/2020 1730 FAX #: Reason: ISCHEMIC STROKE EXAMS: CPT: [id number] MRI BRAIN W/O CONTRAST 25079 LOCATION CODE H 31 MRI BRAIN WITHOUT [...] Signed Report (CONTINUED) FAX: Zurdo Perales MD [phone] Camps: PM St: ADM------- Name: SHANTEL LAURENT [place] : 1945 Age/S: 74/F [address] Unit #: [id number] Loc: L.ICU0 [place] [address] Phys:Zurdo Rondon MD Acct: [id number] Dis Date: Status: ADM IN PHONE #: [phone] Exam Date: 04/08/2020 1730 FAX #: Reason: ISCHEMIC STROKE EXAMS: CPT: [id number] MRI BRAIN W/O CONTRAST 19214 <Continued> at 1958 Reported and signed by: Karey Oconnor MD CC: Zurdo Rondon MD Technologist: Brian Luthre RT(R)(MR) Transcribed Date/Time/By: 04/08/2020 (1958) :KingEFM1 Orig PrintD/T: S: 04/08/2020 (2001) PAGE 2 Signed Report- XR SHOULDER 2+V [id number] 16:42:00 [facility] 1945 Age/S: 74 / F [address] Unit #: [id number] Loc: [place] [address] Phys: Zurdo Rondon MD Acct: [id number] Dis Date: Status: ADM IN PHONE #: [phone] Exam Date: 04/08/2020 1630 FAX #: Reason: left shou lder pain EXAMS: CPT: [id number] XR SHOULDER 2+[place] [address] Fluoro Time: DAP (Gy m2): Air Kerma [...] Rondon MD PAGE1 Signed Report Name: [place]EL [place] : 1945 Age/S: 74 / F [address] [address] Unit #: [id number] Loc: [place] [address] Phys: Zurdo Rondon MD Acct: [id number] Dis Date: Status: ADM IN PHONE #: [phone] Exam Date: 04/08/2020 1630 FAX #: Reason: left shoulder pain EXAMS: CPT: [id number] XR SHOULDER 2+[place] [address] Fluoro Time: DAP (Gy m2): Air Kerma (mGy): <Continued> Technologist: Kimmie Curtis RT(R)(CT) Trnscb Date/Time: 04/08/2020 (164) Ansley.PXC Orig Print D/T: S: 04/08/2020 (9247) PAGE 2 Signed [id number] 06:02:00 Test Item Value Reference Range Interpretation [...] may nella yby method. Completed by Nursing: [facility] METABOLIC [id number] 05:37:00 Test Item Value Reference Range Interpretation [...] Ratio 1.48-3.22 Avg L Comment: FASTING IN [id number] 05:37:00 Test Item Value Reference Range Interpretation Comments GLYCOSYLATED HEMOGLOBIN (HA1C) 5.0 % A1C 0.0-5.7 N (test code = GLYHGB) ESTIMATED AVERAGE GLUCOSE (test 97 MG/DLest code = EAG) CBC W/AUTO [id number] 05:23:00 Test Item Value Reference Range Interpretation [...] (test code NO DIFF/SCN CRITERIA = MDIFF) [id number] 21:26:00 Test Item Value Reference Range Interpretation [...] nella yby method. Completed by Nursing: NOVITAMIN [id number] 19:04:00 Test Item Value Reference Range Interpretation Comments VITAMIN B12 (test code = VITB12) 376 PG/ML 183-986 N FOLIC [id number] 19:04:00 Test Item Value Reference Range Interpretation Comments FOLIC ACID (test code = FOL) 6.20 NG/ML 3.10-17.50 N THYROID STIMULATING [id number] 19:04:00 Test Item Value Reference Range Interpretation Comments THYROID STIMULATING HORMONE 3.100 mcIU/ML 0.340-4.820 N (test code = TSH) CARBAMAZEPINE (TEGRETOL)2020-04-07 19:04:00 Test Item Value Reference Range Interpretation Comments CARBAMAZEPINE (TEGRETOL) (test < 0.5 mcG/ML 4.0-12.0 L code = CARB) VALPROIC ACID (DEPAKENE)2020-04-07 19:04:00 Test Item Value Reference Range Interpretation Comments VALPROIC ACID (DEPAKENE) (test 53.7 mcG/ML 50.0-100.0 N code = VALP) VITAMIN [id number] 18:35:00 Test Item Value Reference Range Interpretation Comments VITAMIN B12 (test code = VITB12) 376 PG/ML 183-986 N FOLIC [id number] 18:35:00 Test Item Value Reference Range Interpretation Comments FOLIC ACID (test code = FOL) 6.20 NG/ML 3.10-17.50 N THYROID STIMULATING [id number] 18:35:00 Test Item Value Reference Range Interpretation Comments THYROID STIMULATING HORMONE 3.100 mcIU/ML 0.340-4.820 N (test code = TSH) CARBAMAZEPINE (TEGRETOL)2020-04-07 18:35:00 Test Item Value Reference Range Interpretation Comments CARBAMAZEPINE (TEGRETOL) (test code = mcG/ML 4.0-12.0 CARB) VALPROIC ACID (DEPAKENE)2020-04-07 18:35:00 Test Item Value Reference Range Interpretation Comments VALPROIC ACID (DEPAKENE) (test code = mcG/ML 50.0-100.0 VALP) [id number] 18:17:00 Test Item Value Reference Range Interpretation [...] may nella yby method. Completed by Nursing: DANIKA [facility] INHOUSE [id number] 16:14:00 Test Item Value Reference Range Interpretation Comments COVID 19 INHOUSE AG NEGATIVE Negative Per manu facturer, (test code = negative result s should PHHAA91CQIH) be treated aspr esumptive and, if inconsi [...] symptoms co nsistent with COVID-19. GLUCOSE BEDSIDE [id number] 16:06:00 Test Item Value Reference Range Interpretation Comments GLUCOSE BEDSIDE TESTING (test code = 79 mg/dL 70-110 N GLUBED) UA RFLX MICR CULT IF [id number] 15:35:00 Test Item Value Reference Range Interpretation [...] RiskForSepsis-no oth srcUA RFLX MICR CULT IF [id number] 15:28:00 Test Item Value Reference Range Interpretation [...] UACULT) Indication for culture: RiskForSepsis-no oth srcPROTHROMBIN [id number] 14:58:00 Test Item Value Reference Range Interpretation Comments PT PATIENT (test code = PTP) 11.2 SECONDS 9.3-12.9 N INTERNATIONAL NORMAL RATIO 0.99 INR Unit 0.8-1.2 N (test code = INR) THROMBOPLASTIN TIME [id number] 14:58:00 Test Item Value Reference Range Interpretation Comments THROMBOPLASTIN TIME PARTIAL 21.3 SECONDS 26-35 L (test code = PTT) BASIC METABOLIC [id number] 14:46:00 Test Item Value Reference Range Interpretation [...] 9.1 MG/DL 8.5-10.1 N Completed by Nursing: [id number] 14:46:00 Test Item Value Reference Range Interpretation [...] method. Completed by Nursing: NO- CT ANGIO [id number] 14:46:00 Name: SHANTEL LAURENT [facility]ly [facility] : 1945 Age/S: 74 / F [address] [address] Unit #: [id number] Loc: [place] [address] Phys: Jc Garcia MD Acct: [id number] Dis Date: Status: PRE ER PHONE #: [phone] Exam Date: 04/07/2020 1430 FAX #: Reason: ams, slurred speech EXAMS: CPT: [id number] CT ANGIO NECK 14061 EXAM: - CTANGIO HEAD, - CT ANGIO [...] LAURENT : 1945 Age/S: 74 / F [address] [address] Unit #: [id number] Loc: [place] [address] Phys: Jc Garcia MD Acct: [id number] Dis Date: Status: PRE ER PHONE #: [phone] Exam Date: 04/07/2020 1430FAX #: Reason: ams, slurred speech EXAMS: CPT: [id number] CT ANGIO NECK [address]33[address] <Continued> The RIGHT posterior cerebral artery, superior [...] Technologist:RT Jesse(R)(CT) CTDI: DLP: Trnscb Date/Time: 04/07/2020 (1446) tSCOTTIE.KW9 Orig Print D/T: S: 04/07/2020 (9831) PAGE 2 Signed Report- CT ANGIO [id number] 14:46:00 Name: SHANTEL LAURENT [facility]ly [facility] : 1945 Age/S: 74 / F [address] [address] Unit #: [id number] Loc: [place] [address] Phys: Jc Garcia MD Acct: [id number] Dis Date: Status: PRE ER PHONE #: [phone] Exam Date: 04/07/2020 1425 FAX #: Reason: ams, slurred speech EXAMS: CPT: [id number] CT ANGIO HEAD [address]65 EXAM: - CTANGIO HEAD, - CT ANGIO [...] 1 Signed Report (CONTINUED) Name: [facility] 1945 Age/S: 74 / F [address] [facility] [address] Unit #: [id number] Loc: [place] [address] Phys: Jc Garcia MD Acct: [id number] Dis Date: Status: PRE ER PHONE #: [phone] Exam Date: 04/07/2020 1425FAX #: Reason: ams, slurred speech EXAMS: CPT: [id number] CT ANGIO HEAD [address] <Continued> The RIGHT posterior cerebral artery, superior [...] Technologist:RT Jesse(R)(CT) CTDI: DLP: Trnscb Date/Time: 04/07/2020 (1446) KingKW9 Orig Print D/T: S: 04/07/2020 (2920) PAGE 2 Signed Report- XR CHEST 1 [id number] 14:37:00 [facility] 1945 Age/S: 74 / F [address] [address] Unit #: [id number] Loc: [place] [address] Phys: Jc Garcia MD Acct: [id number] Dis Date: Status: PRE ER PHONE #: [phone] Exam Date: 04/07/2020 1432 FAX #: Reason: Code Stroke EXAMS: CPT: [id number] XR CHEST 1 V 77624 Fluoro Time: DAP (Gy m2): Air Kerma [...] of pneumothorax.. Not fully included in the nuqdw-dc-rsab, there appears to be cortical irregularity about the left humeral head, which may represent fracture; age indeterminate. An IVC filter is partially seen in the upper abdomen. IMPRESSION 1. Low lung volumes and bronchovascular crowding. Otherwise, No radiographic evidence of acute cardiopulmonary process. 2.Not fully included in the lvdsy-hz-rkdm, there appears to be cortical irregularity about the left humeral head, which may represent fracture; age indeterminate. Correlate with point tenderness on physical exam. Additional dedicated radiographs of the left shoulder and/or humerus may be obtained if it is clinically warranted. at 1437 Reported and signed by: Alina Marcum M.D. CC: Jc Garcia MD PAGE 1 Signed Report Name: SHANTEL LAURENT [place] : 1945 Age/S: 74 / [address] Unit #: [id number] Loc: [place] [address] Phys: Jc Garcia MD Acct: [id number] Date: Status: PRE ER PHONE #: [phone] Exam Date: 04/07/2020 1432 FAX #: Reason: Code Stroke EXAMS: CPT: [id number] XR CHEST 1 V 86041 Fluoro Time: DAP (Gy m2): Air Kerma (mGy): <Continued> Technologist: RT Frantz(R) Trnscb Date/Time: 04/07/2020 (1437) KingKW9 Orig PrintD/T: S: 04/07/2020 (8000) PAGE 2 Signed ReportC W/O [id number] 14:23:00 Test Item Value Reference Range Interpretation [...] 7.0-10.5 N MPV) - CT HEAD/BRAIN W/O [id number] 14:23:00 Name: SHANTEL LAURENT [facility] : 1945 Age/S: 74 / F [address] [address] Unit #: [id number] Loc: [place] [address] Phys: Jc Garcia MD Acct: [id number] Dis Date: Status: PRE ER PHONE #: [phone] Exam Date: 04/07/2020 2790 FAX #: Reason: Code Str shailesh EXAMS: CPT: [id number] CT HEAD/BRAIN W/O CONT 23788 EXAM: - CTHEAD/BRAIN W/O CONT HISTORY: Code [...] 1 Signed Report (CONTINUED) Name: SHANTEL LAURENT [place] : 1945 Age/S: 74 / F [address] [address] Unit #: [id number] Loc: [place] [address] Phys: Jc Garcia MD Acct: [id number] Dis Date: Status: PRE ER PHONE #: [phone] Exam Date: 04/07/2020 1413 FAX #: Reason: Code Stroke EXAMS: CPT: [id number] CT HEAD/BRAIN W/O CONT 77587 <Continued> at 1423 Reported and signed by: Alina Marcum M.D. CC: Jc Garcia MD Technologist:RT Jesse(R)(CT) CTDI: DLP: Trnscb Date/Time: 04/07/2020 (1422) t.BRIDGET.KW9/tSCOTTIE.KW9 Orig Print D/T: S: 04/07/2020 (5063) PAGE 2 Signed ReportSARS-COV2/RT-PCR ([facility]) 2019-10-19 13:24:00 Test Item Value Reference Range Interpretation Comments SARS-COV2/RT-PCR (test Not Detected Not Detected, Negative code = 1929711) SARS-COV-2 PERFORMING LAB [facility] (test code = 5063442) Negative results do not preclude SARS-CoV-2 infection and should not be used as the sole basis for patient management decisions. Negative results must be combined with clinical observations, patient history, and epidemiological information. A false negative result may occur if a specimen is improperly collected, transported or handled.The limit of detection for this assay is 250 copies/mL.This SARS CoV-2 test is a rapid, real-time RT-PCR test intended for the qualitative detection of nucleic acid from SARS-CoV-2 in a nasopharyngeal swab specimen collected from individuals suspected of COVID-19 by their healthcare provider.This test has not been Food and Drug Administration (FDA) cleared or approved and has been authorized by FDA under an Emergency Use Authorization (EUA). This EUA will be effective until the declaration that circumstances exist justifying the authorization of the emergency use of in vitro diagnostic tests for detection and/or diagnosis of COVID-19 is terminated under Section 564(b)(2) of the Act or the EUA is revoked under Section 564(g) of the Act.Fact Sheet for Healthcare Pro viders:https://www.KipCall/Documents/Xpert%20Xpress%20SARS%20CoV-2/Fact%20Sh eets/302-3802%85IBPE-EAK-8%20HEALTHCARE%20PROVIDERS%20FACT%20SHEET.pdfFact Sheet for Healthcare Patients:https://www.BRAINREPUBLIC/Documents/Xpert%20Xpress%20SARS%20CoV-2/Fact%20Sheets/302-3801%20SARS-COV -2%20PATIENT%20FACT%20SHEET.pdfPerforming Laboratory:[facility] [place], [place] [address]MTUKMCZA ACID (DEPAKENE)2019-08-31 07:37:00 Test Item Value Reference Range Interpretation Comments VALPROIC ACID (DEPAKENE) (test 45.7 ug/mL 50.0-100.0 L code = VALP) HGBA1C - GLYCOSYLATED [id number] 14:38:00 Test Item Value Reference Range Interpretation Comments GLYCOSYLATED HEMOGLOBIN (HA1C) (test 4.7 % 4.0-6.0 N code = GLYHGB) URINALYSIS [id number] 13:31:00 Test Item Value Reference Range Interpretation [...] = BACU) 3+ /HPF NEGATIVE A URINALYSIS [id number] 13:20:00 Test Item Value Reference Range Interpretation [...] code = BACU) /HPF NEGATIVE BASIC METABOLIC [id number] 12:49:00 Test Item Value Reference Range Interpretation [...] 9.2 mg/dL 8.6-10.4 N CA) BASIC METABOLIC [id number] 12:43:00 Test Item Value Reference Range Interpretation [...] code = mg/dL 8.6-10.4 CA) CBC W/AUTO [id number] 12:02:00 Test Item Value Reference Range Interpretation [...] Risk LD L Cholesterol<1 00mg/dL: Desirable LDL-C zktgujzolrjqs44 0-159mg/ dL: Borderline High Risk LDL-C tmynnkapgclqu72 0-189mg/ dL: High risk L DL-C concentration H DL-LDL Cholesterol is affected by a number of factors suchas smoking, age and sex.~~~~~~~~~~~ ~~~~~~~~ ~~~~~~~~~~~~~~~ ~~~~~~~~ ~~~~~~~~~~~~~~~ ~~~ THYROID STIMULATING [id number] 12:09:00 Test Item Value Reference Range Interpretation Comments THYROID STIMULATING HORMONE (test 8.41 mIU/mL 0.38-5.60 H code = TSH)
[2021-08-16 10:54] LABS: Urine Blood 1+ (Negative); Urine Glucose Negative (Negative); Urine Protein 2+ (Negative); Urine Specific Gravity 1.025 (1.005-1.030); Urine pH 6.5 (5.0-7.0)
--- NOTE | 2021-08-16 11:37 | RAD REPORT ---
EXAM DESCRIPTION: CT - Head Brain Wo Cont - 08/16/2021 11:22 am CLINICAL HISTORY: AMS COMPARISON: Head Brain Wo Cont dated 02/20/2020; Facial Bones W/ Mpr dated 11/06/2019 TECHNIQUE: All CT scans are performed using dose optimization technique as appropriate and may inclu de automated exposure control or mA/KV adjustment according to patient size. FINDINGS: No intracranial hemorrhage, hydrocephalus or extra-axial fluid collection.No areas of brai n edema or evidence of midline shift. The paranasal sinuses and mastoids are clear. The calvarium is intact. IMPRESSION: No acute intracranial abnormality.
--- NOTE | 2021-08-16 11:39 | RAD REPORT ---
EXAM DESCRIPTION: RAD - Chest Single View - 08/16/2021 11:15 am CLINICAL HISTORY: ams COMPARISON: Chest Single View dated 05/16/2020; Chest Single View dated 02/20/2020; Chest Single View dated 10/18/2019; Chest Single View dated 09/21/2019 FINDINGS: Lines: None. Lungs: No evidence of edema or pneumonia. Pleural: No significant pleural effusions or pneumothorax. Cardiac: The heart size is within normal limits. Bones: No acute fractures. Other: IMPRESSION: No acute cardiopulmonary disease.
[2021-08-16 12:16] LABS: Absolute Lymphocytes (CBC) 1.5 K/uL (0.7-4.9); Hematocrit 38.1 % (36.0-45.0); Lymphocytes % 10.2 % (15.3-44.8); MPV 9.2 fL (7.6-11.3)
[2021-08-16 12:45] LABS: SARS-COV-2 RT PCR NEGATIVE (NEGATIVE)
[2021-08-16 12:45] LABS: Blood Morphology Comment NOT SEEN (NOT SEEN); Platelet Estimate ADEQ
[2021-08-16 12:56] LABS: Bilirubin Direct 0.2 mg/dL (0-0.2); Bilirubin Total 0.4 mg/dL (0.2-1.0); Magnesium 2.3 mg/dL (1.8-2.4); Potassium 4.6 mmol/L (3.5-5.1); Protein, Total 7.5 g/dL (6.4-8.2)
[2021-08-16 12:58] LABS: Troponin High Sensitivity 1919.3 pg/mL (<58.9)
[2021-08-16] MEDS ORDERED: ASPIRIN EC 81 MG TAB PO ONE (13:07)
[2021-08-16] MEDS ORDERED: ONDANSETRON 4 MG/2 ML VIAL IV PRN (13:07)
[2021-08-16] MEDS ORDERED: NA CHLORIDE 0.9% 250 ML ONE (13:36)
[2021-08-16] MEDS ORDERED: CEFTRIAXONE 1000 MG/VIAL ONE (13:36)
--- NOTE | 2021-08-16 13:59 | ER ---
Nurse's Notes [facility] Name: Macrina Mason Age: 75 yrs Sex: Female : 1945 Arrival Date: 08/16/2021 Time: 10:36 Bed 4 Private MD: Diagnosis: UTI/ Urinary tract infection, site not specified;Altered mental status, unspecified;Non ST elevation RI Presentation: 08/16 11:01 Chief complaint: EMS states: Family called EMS for increased AMS and weakness. Stated jh6 that she had been unable to walk for the last couple of days. Coronavirus screen: Vaccine status: Client denies travel out of the [place] in the last 14 days. At this time, the client does not indicate any symptoms associated with coronavirus-19. Ebola Screen: Patient denies exposure to infectious person. Patient denies travel to an Ebola-affected area in the 21 days before illness onset. Initial Sepsis Screen: Does the patient meet any 2 criteria? RR > 20 per min. Altered Mental Status. HR > 90 bpm. Does the patient have a suspected source of infection? Yes: Dysuria/Frequency/Urgency/UTI. Risk Assessment: Do you want to hurt yourself or someone else? Patient reports no desire to harm self or others. Onset of symptoms was August 12, 2021. 11:01 Method Of Arrival: EMS: [place] [id number] 11:01 Acuity: [place] 2 [facility] Triage Assessment: 11:04 General: Appears obese, unkempt, skin w/d gown soaked in foul smelling urine. Behavior [facility] is cooperative, confused to place and time able to give name only. Pain: Denies pain. Historical: - Allergies: 11:06 PENICILLINS; 6 11:06 tramadol; 6 - PMHx: 11:06 ADD/ADHD; UTI; TIA; Schizophrenia; Alzheimers; CHF; allergies; Parkinsons; 6 Hyperlipidemia; DYSPHAGIA; DVT; CVA; COPD; convulsions; chronic kidney disease; Bipolar disorder; Back pain; - Immunization history:: Adult Immunizations up to date. - Social history:: Smoking status: Patient denies any tobacco usage or history of. Screenin:09 Abuse screen: Denies threats or abuse. Tuberculosis screening: No symptoms or risk [facility] factors identified. Fall Risk Fall in past 12 months (25 points). Secondary diagnosis (15 points) TIA, IV access (20 points). 11:35 Nutritional screening: No deficits noted. per spouse, pt has been able to eat well. has jh6 not taken much po fluids or food since yesterday.. Assessment: 12:05 General: Appears in no apparent distress. Behavior is calm, alert to self only. Smells jh6 of urine. Pain: Denies pain. Neuro: Oriented to person, Brand Analyst are equal bilaterally weak bilaterally. Cardiovascular: No deficits noted. 13:10 Reassessment: Patient and/or family updated on plan of care and expected duration. Pain jh6 level reassessed. Patient denies pain at this time. 14:30 Reassessment: Patient and/or family updated on plan of care and expected duration. Pain jh6 level reassessed. Patient is alert, oriented x 3, equal unlabored respirations, skin warm/dry/pink. pt wakes up to verbal stimuli and is alert to person only at this time. Patient denies pain at this time. 16:43 Reassessment: No changes from previously documented assessment. Patient denies pain at jh6 this time. Vital Signs: 11:01 BP 131 / 66; Pulse 90; Resp 20; Temp 97.2(O); Pulse Ox 96% ; Weight 113.4 kg; Height 5 [facility] ft. 4 in. (162.56 cm); Pain 0/10; 11:07 BP 111 / 93; Pulse 90; Resp 20; Pulse Ox 98% on R/A; 6 12:00 BP 112 / 74; Pulse 81; Resp 18; Pulse Ox 98% ; Pain 0/10; 6 14:00 BP 127 / 97; Pulse 85; Resp 17; Pulse Ox 99% ; Pain 0/10; 6 16:00 BP 139 / 69; Pulse 85; Resp 17; Temp 97.6(O); Pulse Ox 98% ; Pain 0/10; 6 11:01 Body Mass Index 42.91 (113.40 kg, 162.56 cm) [facility] Vitals: 11:07 Cardiac Rhythm Assessment Regular. [facility] ED Course: 10:36 Patient arrived in ED. [facility] 10:38 Tomasz Nelson PA is PHCP. [facility] 10:38 Kevyn Carrillo MD is Attending Physician. jmm 10:57 EKG done, by ED staff, reviewed by Tomasz JURADO. mb7 11:01 Madison Gonzalez, RN is Primary Nurse. 6 11:04 Triage completed. jh6 11:07 Arm band placed on left wrist. jh6 11:08 Speci-cath kit inserted, using sterile technique, 16 Fr., returned cloudy urine. 6 Patient tolerated well. 11:08 monitoring manager on. Pulse ox on. NIBP on. jh6 11:09 Inserted saline lock: 22 gauge in left antecubital area, using aseptic technique. 6 Maintain EMS IV. Dressing intact. Good blood return noted. Site clean \T\ dry. Gauge \T\ site: 20g to rt ac flushes well but little to no blood return. . 11:15 XRAY Chest (1 view) In Process Unspecified. EDMS 11:22 CT Head Brain wo Cont In Process Unspecified. EDMS 12:07 Placed in gown. Bed in low position. Call light in reach. Side rails up X2. Adult w/ [facility] patient. 12:08 No provider procedures requiring assistance completed. [facility] 13:58 Kristina Garcia MD is Hospitalizing Provider. [facility] Administered Medications: 13:43 Drug: Rocephin (cefTRIAXone) 2 grams Route: IV; Rate: calculated rate; Site: left [facility] antecubital; 14:09 Drug: Aspirin Chewable Tablet 324 mg Route: PO; vg1 15:21 Drug: Heparin (RI Drip) 12 units/kg/hr - (HEParin 51658 units, D5W 500 ml) [facility] {Co-Signature: vg1 (Dona Moore RN).} Route: IV; Rate: 20 calculated rate; Site: right antecubital; Outcome: 13:59 Decision to Hospitalize by Provider. [facility] 17:32 Patient left the ED. iw Signatures: Dispatcher [employer] EDMS Tomasz Nelson PA PA jmm Williams, Irene, RN RN iw Martinez, Maria Dona Hanna RN RN vg1 Madison Gonzalez, RN RN 6 Susie Ulloa mb7 Dona Moore RN vg1
--- NOTE | 2021-08-16 13:59 | EDPHYS ---
Physician Documentation [facility] Name: Macrina Mason Age: 75 yrs Sex: Female : 1945 Arrival Date: 08/16/2021 Time: 10:36 Bed 4 Private MD: ED Physician Kevyn Carrillo HPI: 08/16 10:53 This 75 yrs old Female presents to ER via EMS with complaints of Altered Mental Status. [facility] 10:53 The patient presents with decreased responsiveness. Onset: The symptoms/episode jmm began/occurred 1 day(s) ago. Possible causes: Urinary tract infection. Associated signs and symptoms: Pertinent negatives: abdominal pain. Current symptoms: In the emergency department the patient's symptoms are unchanged from the initial presentation. The patient has experienced a previous episode. This is a 75-year-old female with history of TIA, schizophrenia, Alzheimer's dementia, congestive heart failure that presents emerged department with altered mental status according to the . states that the patient normally will be able to ambulate slightly with a walker but now the patient is unable to use the walker and is mainly wheelchair-bound. States the patient has become increasingly confused and not as responsive when he talks to her. Patient currently complains of generalized pain and weakness but denies any focal area of pain.. Historical: - Allergies: 11:06 PENICILLINS; jh6 11:06 tramadol; jh6 - PMHx: 11:06 ADD/ADHD; UTI; TIA; Schizophrenia; Alzheimers; CHF; allergies; Parkinsons; jh6 Hyperlipidemia; DYSPHAGIA; DVT; CVA; COPD; convulsions; chronic kidney disease; Bipolar disorder; Back pain; - Immunization history:: Adult Immunizations up to date. - Social history:: Smoking status: Patient denies any tobacco usage or history of. ROS: 10:53 Unable to obtain ROS due to altered mental status. [facility] Exam: 10:53 Head/Face: atraumatic. Eyes: EOMI, no conjunctival erythema appreciated ENT: Moist [facility] Mucus Membranes Neck: Trachea midline, Supple Chest/axilla: Normal chest wall appearance and motion. Cardiovascular: Regular rate and rhythm. No edema appreciated Respiratory: Normal respirations, no respiratory distress appreciated Abdomen/GI: Non distended, soft Back: Normal ROM Skin: General appearance color normal 10:53 Constitutional: The patient appears awake, anxious, obviously ill. 10:53 Musculoskeletal/extremity: ROM: intact in all extremities. 10:53 Skin: Appearance: Color: normal in color. 10:53 Neuro: Orientation: to person. 10:53 Psych: Behavior/mood is cooperative, anxious. Vital Signs: 11:01 BP 131 / 66; Pulse 90; Resp 20; Temp 97.2(O); Pulse Ox 96% ; Weight 113.4 kg; Height 5 [facility] ft. 4 in. (162.56 cm); Pain 0/10; 11:07 BP 111 / 93; Pulse 90; Resp 20; Pulse Ox 98% on R/A; 6 12:00 BP 112 / 74; Pulse 81; Resp 18; Pulse Ox 98% ; Pain 0/10; [facility] 14:00 BP 127 / 97; Pulse 85; Resp 17; Pulse Ox 99% ; Pain 0/10; 6 16:00 BP 139 / 69; Pulse 85; Resp 17; Temp 97.6(O); Pulse Ox 98% ; Pain 0/10; [facility] 11:01 Body Mass Index 42.91 (113.40 kg, 162.56 cm) [facility] MDM: 10:54 Patient medically screened. [facility] 13:05 Data reviewed: vital signs, nurses notes. Counseling: I had a detailed discussion with bakari the patient and/or guardian regarding: the historical points, exam findings, and any diagnostic results supporting the discharge/admit diagnosis, the need for outpatient follow up, to return to the emergency department if symptoms worsen or persist or if there are any questions or concerns that arise at home. 08/16 10:53 Order name: Urine Dipstick-Ancillary; Complete Time: 10:54 [facility] 08/16 10:55 Order name: Basic Metabolic Panel; Complete Time: 13:07 [facility] 08/16 10:55 Order name: CBC with Diff; Complete Time: 12:46 [facility] 08/16 10:55 Order name: LFT's; Complete Time: 13:07 [facility] 08/16 10:55 Order name: Magnesium; Complete Time: 13:07 [facility] 08/16 10:55 Order name: NT PRO-BNP; Complete Time: 13:07 [facility] 08/16 10:55 Order name: PT-INR; Complete Time: 12:21 [facility] 08/16 10:55 Order name: Troponin HS; Complete Time: 13:07 [facility] 08/16 10:55 Order name: Procalcitonin; Complete Time: 13:12 [facility] 08/16 10:55 Order name: Lactate; Complete Time: 12:42 [facility] 08/16 10:55 Order name: Blood Culture Adult (2) [facility] 08/16 10:55 Order name: Urine Culture [facility] 08/16 10:57 Order name: COVID-19/FLU A+B (Document "Date of Onset" if Symptomatic) [facility] 08/16 10:58 Order name: COVID-19/FLU A+B; Complete Time: 12:46 [facility] 08/16 12:45 Order name: Manual Differential; Complete Time: 12:46 [facility] 08/16 13:12 Order name: Comprehensive Metabolic Panel [facility] 08/16 13:12 Order name: Comprehensive Metabolic Panel [facility] 08/16 13:12 Order name: Lactate [facility] 08/16 13:12 Order name: Lactate [facility] 08/16 13:12 Order name: Magnesium [facility] 08/16 13:12 Order name: Magnesium [facility] 08/16 13:12 Order name: NT PRO-BNP [facility] 08/16 13:12 Order name: NT PRO-BNP [facility] 08/16 13:12 Order name: Phosphorus [facility] 08/16 13:12 Order name: Phosphorus [facility] 08/16 13:12 Order name: Procalcitonin [facility] 08/16 13:12 Order name: Procalcitonin; Complete Time: 15:15 [facility] 08/16 13:12 Order name: Urinalysis [facility] 08/16 13:12 Order name: CBC with Automated Diff [facility] 08/16 13:13 Order name: CBC with Automated Diff [facility] 08/16 10:55 Order name: XRAY Chest (1 view); Complete Time: 11:40 [facility] 08/16 10:55 Order name: EKG; Complete Time: 10:56 [facility] 08/16 10:55 Order name: Cardiac monitoring; Complete Time: 13:55 [facility] 08/16 10:55 Order name: EKG - Nurse/Tech; Complete Time: 10:57 [facility] 08/16 10:55 Order name: IV Saline Lock; Complete Time: 13:55 [facility] 08/16 10:55 Order name: Labs collected and sent; Complete Time: 13:55 [facility] 08/16 10:55 Order name: O2 Per Protocol; Complete Time: 13:56 [facility] 08/16 10:55 Order name: O2 Sat Monitoring; Complete Time: 13:56 [facility] 08/16 10:56 Order name: CT Head Brain wo Cont; Complete Time: 11:37 [facility] 08/16 13:12 Order name: CONS Physician Consult [facility] 08/16 13:12 Order name: Heart Healthy [facility] 08/16 13:56 Order name: Ptt, Activated jh6 08/16 14:00 Order name: PTT, Activated Partial Thromb; Complete Time: 14:51 [facility] 08/16 16:04 Order name: Ptt, Activated 6 Administered Medications: 13:43 Drug: Rocephin (cefTRIAXone) 2 grams Route: IV; Rate: calculated rate; Site: left [facility] antecubital; 14:09 Drug: Aspirin Chewable Tablet 324 mg Route: PO; vg1 15:21 Drug: Heparin ([place] Drip) 12 units/kg/hr - (HEParin 73698 units, D5W 500 ml) [facility] {Co-Signature: vg1 (Dona Moore RN).} Route: IV; Rate: 20 calculated rate; Site: right antecubital; Disposition Summary: 08/16/21 13:59 Hospitalization Ordered Hospitalization Status: Observation [facility] Provider: Kristina Garcia Location: Telemetry/MedSur (Inpatient) [facility] Condition: Stable jmm Problem: new jmm Symptoms: are unchanged jmm Bed/Room Type: Standard [facility] Room Assignment: 206(08/16/21 15:40) eb Diagnosis - UTI/ Urinary tract infection, site not specified jmm - Altered mental status, unspecified jmm - Non ST elevation [place] m Forms: - Medication Reconciliation Form jmm - SBAR form jm Addendum: 08/18/2021 06:28 Co-signature as Attending Physician, Kevyn Carrillo MD I agree with the assessment and k dr plan of care. Signatures: Dispatcher [employer] [facility] Kevyn Carrillo MD MD kdr Mickail, Joel, PA PA Lesly Jj Victoria RN RN vg1 Madison Gonzalez RN RN 6 Dona Moore RN vg1 Corrections: (The following items were deleted from the chart) 08/16 15:40 13:59 [facility] eb
[2021-08-16] MEDS: NA CHLORIDE 0.9% 1,000 ML IV SCH (14:00)
[2021-08-16] MEDS ORDERED: ASPIRIN 81 MG CHEWABLE TABLET ONE (14:01)
[2021-08-16] MEDS ORDERED: HEPARIN/D5W 25,000 UNIT/500 ML BAG IV SCH (15:00)
[2021-08-16] MEDS ORDERED: Enoxaparin 120 MG/0.8 ML SYR SQ SCH (15:00)
[2021-08-16] MEDS ORDERED: HEPARIN/D5W 25,000 UNIT/500 ML BAG IV ONE (15:16)
[2021-08-16 18:26] VITALS: BMI 42.9
[2021-08-16] MEDS: CEFTRIAXONE 1,000 MG in NA CHLORIDE 0.9% 50 ML IVPB SCH (21:17)
[2021-08-16 22:47] VITALS: O2SAT 96
[2021-08-17] MEDS: NA CHLORIDE 0.9% 1,000 ML IV SCH ×5 (01:04→20:56)
[2021-08-17] MEDS: ACETAMINOPHEN 500 MG TAB PO PRN ×3 (01:50→20:51)
[2021-08-17 07:06] LABS: Absolute Lymphocytes (CBC) 1.5 K/uL (0.7-4.9); Hematocrit 30.9 % (36.0-45.0); Lymphocytes % 17.4 % (15.3-44.8); MPV 8.1 fL (7.6-11.3); RBC Red Blood Cell Count 3.11 M/uL (3.86-4.86)
[2021-08-17 07:19] LABS: Albumin 2.1 g/dL (3.4-5.0); Bilirubin Total 0.2 mg/dL (0.2-1.0); Magnesium 2.1 mg/dL (1.8-2.4); Phosphorus 3.4 mg/dL (2.5-4.9); Potassium 3.8 mmol/L (3.5-5.1); Protein, Total 5.9 g/dL (6.4-8.2)
[2021-08-17] MEDS ORDERED: CEFTRIAXONE 1000 MG/VIAL ONE (08:44)
[2021-08-17] MEDS ORDERED: NA CHLORIDE 0.9% 50 ML ONE (08:45)
[2021-08-17] MEDS: CEFTRIAXONE 1,000 MG in NA CHLORIDE 0.9% 50 ML IVPB SCH ×2 (08:51→20:52)
[2021-08-17] MEDS: ASPIRIN EC 81 MG TAB PO SCH (08:51)
[2021-08-17] MEDS ORDERED: POTASSIUM CL SA 10 MEQ TAB PO ONE (09:00)
[2021-08-17] MEDS ORDERED: LACTULOSE 20 GM/30 ML UCUP PO ONE (14:07)
[2021-08-17] MEDS ORDERED: MAGNESIUM HYDROXIDE 8% 30 ML PO PRN (14:07)
--- NOTE | 2021-08-17 14:16 | P.HP ---
Certification for Inpatient Patient admitted to: Inpatient With expected LOS: >2 Midnights Patient will require the following post-hospital care: None Practitioner: I am a practitioner with admitting privileges, knowledge of patient current condition, hospital course, and medical plan of care. Services: Services provided to patient in accordance with Admission requirements found in Title 42 Section 412.3 of the Code of Federal Regulations Patient History Date of Service: 08/17/21 Reason for admission: AMS/UTI/NSTEMI History of Present Illness: Patient is a 75-year-old female came to the hospital with altered mentation. Patient was found have a urinary tract infection. Patient also had significantly elevated troponin level. Spoke to Cardiology and because her mentation is so poor and not really having any chest pain, they wanted us to manage conservatively at this time. Troponins elevated on arrival. Plan to treat with IV antibiotics and gentle hydration. Will monitor labs closely. Cardiology will also plan to do stress test on Wednesday. At this time, patient be admitted for further treatment. Allergies No Known Allergies Allergy (Unverified 10/22/19 09:42) Home Medications: Aspirin 1 tab PO DAILY 10/18/19 Divalproex ER [Depakote *ER] 3 tab PO BID 10/18/19 Donepezil HCl 10 mg PO BID 10/18/19 Duloxetine HCl 60 mg PO DAILY 10/18/19 Fluticasone/Vilanterol [Breo Ellipta 200-25 Mcg INH] 1 puff IN DAILY 10/18/19 Folic Acid 1 tab PO DAILY 10/18/19 Gabapentin 800 mg PO TID 10/18/19 Hydrocodone 5/APAP 325 [[place] 5/325*] 1 tab PO Q6H PRN 10/18/19 Levothyroxine Sodium 25 mcg PO 0630 10/18/19 Loratadine [Claritin*] 1 tab PO DAILY PRN 10/18/19 Memantine HCl 10 mg PO BID 10/18/19 Metoprolol Succinate 25 mg PO BID 10/18/19 OLANZapine [Zyprexa*] 2.5 mg PO BID 10/18/19 Ondansetron [Ondansetron Odt] 4 mg PO Q12H PRN 10/18/19 Topiramate 100 mg PO BID 10/18/19 Vit A,C & E/Lutein/Minerals [Healthy Eyes Tablet] 1 tab PO DAILY 10/18/19 flaxseed oiL [Flaxseed Oil] 1 cap PO DAILY 10/18/19 Ascorbic Acid [Vitamin C*] 500 mg PO Q12H #90 tablet 02/22/20 Calcitrol [Rocaltrol*] 0.5 mcg PO DAILY #30 cap 02/22/20 Cefdinir [Cefdinir*] 300 mg PO BID #14 cap 02/22/20 Cholecalciferol (Vitamin D3) [Vitamin D 5,000 IU Cap*] 5,000 unit PO DAILY #30 cap 02/22/20 - Past Medical/Surgical History Diabetic: No -: Bipolar disorder -: Schizoaffective disorder -: COPD -: History of DVT-cannot describe further/in neck -: Hypertension -: Hypothyroidism -: Hyperlipidemia -: Dementia -: Chronic pain with neuropathy -: Chronic renal disease -: Complete hysterectomy -: sb knee replacement Psychosocial/ Personal History: Patient currently lives at home with her , son this. Reports that she does have a nurse that comes to visit her but reports that she does not have home health. - Family History Mother Medical History: Heart disease, Lung disease Notes: COPD Father Medical History: Heart disease, Diabetes Notes: quadruple bypass - Social History Smoking Status: Unknown if ever smoked Alcohol use: No CD- Drugs: No Caffeine use: Yes Place of Residence: Home Review of Systems 10-point ROS is otherwise unremarkable Physical Examination - Vital Signs Temperature: 96.8 F Blood Pressure: 122/58 Pulse: 57 Respirations: 17 Pulse Ox (%): 93 - Physical Exam General: Alert, In no apparent distress, Demented, Confused HEENT: Atraumatic, PERRLA, Mucous membr. moist/pink, EOMI, Sclerae nonicteric Neck: Supple, 2+ carotid pulse no bruit, No LAD, Without JVD or thyroid abnormality Respiratory: Clear to auscultation bilaterally, Normal air movement Cardiovascular: Regular rate/rhythm, Normal S1 S2, Systolic murmur Gastrointestinal: Normal bowel sounds, No tenderness Musculoskeletal: No tenderness Integumentary: No rashes Neurological: Normal gait, Normal speech, Normal strength at 5/5 x4 extr, Normal tone, Normal affect Lymphatics: No axilla or inguinal lymphadenopathy Assessment & Plan - Problems (Diagnosis) (1) AMBAR (acute kidney injury) Current Visit: No Status: Acute (2) Acute encephalopathy Current Visit: No Status: Acute (3) Depressive disorder Onset Date: 10/22/14 Current Visit: No Status: Acute (4) Hypoxia Onset Date: 12/10/14 Current Visit: No Status: Acute (5) 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 Gentle hydration 2. IV antibiotics 3. Pain control 4. Laxative 5. Stress test on Wednesday 6. Continue trending troponins per Cardiology recommendation 7. GI and DVT prophylaxis Discharge Plan: Home Plan to discharge in: Greater than 2 days - Advance Directives Does patient have a Living Will: No Does patient have a Durable POA for Healthcare: No - Code Status/Comfort Care Code Status Assessed: Yes Code Status: Full Code Critical Care: No Time Spent Managing PTS Care (In Minutes): 45
--- NOTE | 2021-08-17 14:34 | CON ---
Date of Consultation: 08/17/2021 Reason For Consultation: Elevated troponin. History Of Present Illness: This is a 75-year-old female, who was brought into the hospital with alt ered mental condition. She is a very poor historian, unable to get any history from her. I evaluate d her yesterday in the emergency room; however, could not get any history, but reviewing the records, it seems like she has a history of dementia, bipolar disorder, and schizoaffective disorder. I eval uated her again today by bedside and could not get any information from her. She appears to be confu sed and declines having any chest pain and unable to know if she has any recent cardiac history. Past Medical History: Bipolar disorder, schizoaffective disorder, dementia, COPD, history of DVT, hy pertension, hypothyroidism, hyperlipidemia, chronic renal disease. Medications: Refer to reconciliation sheet for detailed list. Allergies: NO KNOWN DRUG ALLERGIES. Past Surgical History: Hysterectomy and bilateral knee replacement. Family History: No premature coronary artery disease or cancer. Social History: She does not smoke or drink. Does not use any drugs. Review of Systems: All systems reviewed and they were negative except for mentioned in HPI. Physical Examination: Vital Signs: Reviewed and were stable. Head and Neck: Pupils are equal, reactive to light. Intact eye movements. No JVD. No cervical lym phadenopathy. Neck is supple. Thyroid is not enlarged. Lungs: Clear to auscultation bilaterally. No rhonchi, rales, or crackles. No accessory muscle use. Heart: Irregular. No extra sounds. Abdomen: Soft, nontender. Bowel sounds positive. No organomegaly. No masses or hernia. No rigidi ty or rebound. Extremities: No clubbing, cyanosis. Intact pulses. Skin: No rash. Neuro: Alert, awake. No acute focal deficits appreciated. Lymph Nodes: No cervical or axillary lymphadenopathy. Investigations: Her hemoglobin is 10.2. Troponin is 1191, down from 1919. Creatinine on arrival wa s 1.92 and now it is 1.62. Urinalysis showed significant UTI. Assessment And Recommendations: Elevated troponin. No acute EKG changes. Unable to tell if the pat ient is having chest pain. Troponin is trending down. Agree with IV heparin and aspirin and please obtain an echocardiogram to evaluate for any wall motion abnormality and I will attempt to contact fa roz member to get a detailed acute history about her cardiac status. Also, I will recommend to do a Lexiscan nuclear stress test. She has chronic kidney disease and advanced dementia. Maybe it is th e best option at this point to evaluate the presence of significant ischemia or not. If stress test does not show significant ischemia, then I will recommend medical management. For interim if her blo od pressure allows, we will place her on coronary vasodilators like nitrates and continue heparin unt il the stress test is done and I will follow the patient with you. Thank you for the consult. /MIGUEL ÁNGEL Voice ID: [id number] Report ID: [id number]
[2021-08-17] MEDS: MORPHINE 2 MG/ML SYR IV PRN ×2 (18:20→22:33)
[2021-08-18] MEDS: MORPHINE 2 MG/ML SYR IV PRN ×3 (02:23→20:53)
--- NOTE | 2021-08-18 02:32 | P.PN ---
Subjective Date of Service: 08/17/21 Subjective: Demented Patient is otherwise doing well. She is still confused. We will continue with gentle hydration. We are trying they do pharmacologic stress test in a.m. to assess cardiac status. If patient's testing is unremarkable then and I anticipate discharge tomorrow. Review of Systems 10-point ROS is otherwise unremarkable Physical Examination - Vital Signs Temperature: 96.8 F Blood Pressure: 122/58 Pulse: 57 Respirations: 17 Pulse Ox (%): 93 - Physical Exam General: Alert, In no apparent distress, Oriented x2, Demented HEENT: Atraumatic, PERRLA, EOMI Neck: Supple, JVD not distended Respiratory: Diminished Cardiovascular: Regular rate/rhythm, Normal S1 S2 Gastrointestinal: Normal bowel sounds, Soft and benign, Non-distended, No tenderness Musculoskeletal: No clubbing, No swelling, No tenderness Integumentary: No rashes Neurological: Normal tone, Sensation intact, Cranial nerves 3-12 intact, Normal affect, Dementia Lymphatics: No axilla or inguinal lymphadenopathy - Studies Medications List Reviewed: Yes Assessment & Plan - Problems (Diagnosis) (1) AMBAR (acute kidney injury) Current Visit: No Status: Acute (2) Acute encephalopathy Current Visit: No Status: Acute (3) Depressive disorder Onset Date: 10/22/14 Current Visit: No Status: Acute (4) Hypoxia Onset Date: 12/10/14 Current Visit: No Status: Acute (5) 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 Continue with gentle hydration 2. Continue with IV antibiotics 3. Pain control 4. Laxative 5. Stress test on Wednesday 6. Continue trending troponins per Cardiology recommendation 7. GI and DVT prophylaxis Discharge Plan: Home Plan to discharge in: Greater than 2 days - Advance Directives Does patient have a Living Will: No Does patient have a Durable POA for Healthcare: No - Code Status/Comfort Care Code Status: Full Code Critical Care: No Time Spent Managing PTS Care (In Minutes): 35
[2021-08-18 06:09] LABS: Potassium 4.2 mmol/L (3.5-5.1)
--- NOTE | 2021-08-18 06:11 | P.PN ---
Date of Service: 08/18/21 Subjective: No acute events overnight, patient reports dry mouth while waiting for cardiac catheterization, states left ear continues to ache since yesterday morning ROS: 10 point ROS as noted above, otherwise negative Physical exam GEN: Alert, oriented x2, demented HEENT: Normal conjunctiva, sclera anicteric CV: Regular rate and rhythm, no edema Pulm: Nonlabored respirations on room air ABD: Soft, nontender, nondistended Integumentary: No rashes Neuro: Normal speech, normal affect, +dementia Problem List AMBAR on CKD 3 Acute encephalopathy, likely metabolic Depressive disorder Acute hypoxemic respiratory failure, secondary to COPD, possibly NSTEMI Senile dementia with depression and behavioral disturbance Bipolar disorder Hypothyroidism N.p.o. for stress test today Echocardiogram ordered Cardiology following Can DC IV fluids once taking p.o. Initial blood culture growing gram-negative rods now, urine: Pansensitive E. coli Infectious disease consulted Will likely need 7 days IV antibiotics following negative blood cultures Continue IV Rocephin for now Patient reports some left ear discomfort but she weeks, denies drainage, no change in hearing. Will obtain otoscope for further evaluation Code: Full Dispo: Anticipate DC in 2 days, likely SNF
[2021-08-18] MEDS ORDERED: REGADENOSON 0.4 MG/5 ML SYR IV ONE (08:29)
[2021-08-18] MEDS: ASPIRIN EC 81 MG TAB PO SCH (09:00)
[2021-08-18] MEDS ORDERED: CEFTRIAXONE 1000 MG/VIAL ONE (09:09)
[2021-08-18] MEDS ORDERED: NA CHLORIDE 0.9% 50 ML ONE (09:10)
[2021-08-18] MEDS: CEFTRIAXONE 1,000 MG in NA CHLORIDE 0.9% 50 ML IVPB SCH ×2 (09:11→20:38)
--- NOTE | 2021-08-18 11:56 | P.CNS ---
Date of Consult: 08/18/21 Chief Complaint: AMS/UTI/NSTEMI History of Present Illness: The patient is a 75-year-old female who presented to the hospital secondary to altered mental status. Patient was found to have a UTI, urine culture growing E. coli. Blood cultures positive for gram-negative rods, likely E. coli speciation still pending. Repeat blood cultures obtained on 08/17 also pending. Patient Per[place] placed on Rocephin. During patient interview today patient is less altered. She states that prior to her hospital admission she was having dysuria, lower abdominal/flank plain, and had a foul odor and abnormal dark yellow color to her urine. She states that she gets UTIs frequently and was h ospitalized for a UTI a few years ago. Denies any history of kidney infectious disease has been consulted to manage the patient's urosepsis. Patient currently denies nausea/vomiting/diarrhea/shortness of breath/chest pain. Allergies No Known Allergies Allergy (Unverified 10/22/19 09:42) Home Medications: Aspirin 1 tab PO DAILY 10/18/19 Divalproex ER [Depakote *ER] 3 tab PO BID 10/18/19 Donepezil HCl 10 mg PO BID 10/18/19 Duloxetine HCl 60 mg PO DAILY 10/18/19 Fluticasone/Vilanterol [Breo Ellipta 200-25 Mcg INH] 1 puff IN DAILY 10/18/19 Folic Acid 1 tab PO DAILY 10/18/19 Gabapentin 800 mg PO TID 10/18/19 Hydrocodone 5/APAP 325 [[place] 5/325*] 1 tab PO Q6H PRN 10/18/19 Levothyroxine Sodium 25 mcg PO 0630 10/18/19 Loratadine [Claritin*] 1 tab PO DAILY PRN 10/18/19 Memantine HCl 10 mg PO BID 10/18/19 Metoprolol Succinate 25 mg PO BID 10/18/19 OLANZapine [Zyprexa*] 2.5 mg PO BID 10/18/19 Ondansetron [Ondansetron Odt] 4 mg PO Q12H PRN 10/18/19 Topiramate 100 mg PO BID 10/18/19 Vit A,C & E/Lutein/Minerals [Healthy Eyes Tablet] 1 tab PO DAILY 10/18/19 flaxseed oiL [Flaxseed Oil] 1 cap PO DAILY 10/18/19 Ascorbic Acid [Vitamin C*] 500 mg PO Q12H #90 tablet 02/22/20 Calcitrol [Rocaltrol*] 0.5 mcg PO DAILY #30 cap 02/22/20 Cefdinir [Cefdinir*] 300 mg PO BID #14 cap 02/22/20 Cholecalciferol (Vitamin D3) [Vitamin D 5,000 IU Cap*] 5,000 unit PO DAILY #30 cap 02/22/20 - Past Medical/Surgical History Diabetic: No -: Bipolar disorder -: Schizoaffective disorder -: COPD -: History of DVT-cannot describe further/in neck -: Hypertension -: Hypothyroidism -: Hyperlipidemia -: Dementia -: Chronic pain with neuropathy -: Chronic renal disease -: Complete hysterectomy -: sb knee replacement Psychosocial/ Personal History: Patient currently lives at home with her , son this. Reports that she does have a nurse that comes to visit her but reports that she does not have home health. - Family History Mother Medical History: Heart disease, Lung disease Notes: COPD Father Medical History: Heart disease, Diabetes Notes: quadruple bypass - Social History Smoking Status: Unknown if ever smoked Alcohol use: No CD- Drugs: No Caffeine use: Yes Place of Residence: Home Review of Systems 10-point ROS is otherwise unremarkable Physical Examination Temp Pulse Resp BP Pulse Ox 98 F 80 18 160/70 H 99 08/18/21 08:00 08/18/21 08:00 08/18/21 08:00 08/18/21 08:00 08/18/21 08:00 General: Oriented x3 HEENT: Atraumatic, Normocephalic Neck: Supple, 2+ carotid pulse no bruit Respiratory: Clear to auscultation bilaterally, Normal air movement Cardiovascular: Normal pulses, Regular rate/rhythm Gastrointestinal: Normal bowel sounds, Soft and benign Musculoskeletal: No clubbing, No swelling, No contractures Integumentary: No rashes, No breakdown, No significant lesion Urinary: Steele catheter External genitalia: No lesions Conclusions/Impression: Antibiotics Rocephin: 08/16current Assessment/plan Urosepsis -Urine culture growing E. coli, pansensitive Blood cultures growing gram-negative rods, awaiting susceptibility/speciation -Repeat blood cultures obtained on 08/17 pending. -We will treat with IV antibiotics for 7 days following negative blood culture report -Continue monotherapy with IV Rocephin. Patient will likely need mid or PICC line. Left ear infection -Patient states that she has had left ear otalgia for the past few weeks. Denies drainage or changes in hearing. -Continue Rocephin Medical management per primary team Plan of care discussed with Dr. Savage Thank you for consultation.
--- NOTE | 2021-08-18 15:29 | RAD REPORT ---
EXAM DESCRIPTION: NM - Rest Stress Cardiac Imaging - 08/18/2021 2:56 pm CLINICAL HISTORY: CHEST PAIN Chest pain. COMPARISON: No comparisons TECHNIQUE: The patient was administered approximately 10mCi of Tc 99m Sestamibi prior to resting SPE CT imaging of the heart. The patient was then administered approximately 30 mCi of Tc 99m Sestamibi f ollowing exercise or pharmacologic stress. Multiplanar SPECT images were reviewed. FINDINGS: Exam is limited as the patient arms were by her side during the study. Cardiac gating could not be accurately performed. Grossly, stress-induced ischemia is not evident. The study, however, is quite limited. Volumes could not be accurately obtained due to lack of gating. IMPRESSION: Quite a limited study is submitted without mismatched gross perfusion defects seen.
[2021-08-18 17:43] LABS: Absolute Lymphocytes (CBC) 0.7 K/uL (0.7-4.9); Hematocrit 29.1 % (36.0-45.0); Lymphocytes % 13.6 % (15.3-44.8); RBC Red Blood Cell Count 2.98 M/uL (3.86-4.86)
[2021-08-18 17:52] LABS: Potassium 4.3 mmol/L (3.5-5.1)
[2021-08-18] MEDS: ENOXAPARIN 30 MG/0.3 ML SQ SCH (18:21)
[2021-08-19] MEDS: MORPHINE 2 MG/ML SYR IV PRN ×2 (04:10→08:55)
--- NOTE | 2021-08-19 06:17 | P.PN ---
Date of Service: 08/19/21 Subjective: no acute events overnight Continues with left ear pain, L jaw pain ROS: 10 point ROS as noted above, otherwise negative Physical exam GEN: Alert, oriented x2, demented HEENT: Normal conjunctiva, sclera anicteric. L TM no erythema, no effusion. 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 coli Infectious disease consulted Midline ordered, will need 7 days IV antibiotics negative blood cultures Continue IV Rocephin for now Patient reports some left ear discomfort but she weeks, denies drainage, no change in hearing. Left tympanic membrane appears normal, no evidence of otitis media or externa We will obtain CT face/neck to further evaluate. Appears to have some slight swelling of the left lower face, rule out parotiditis Code: Full Dispo: Anticipate DC in 1-2 days, likely SNF
[2021-08-19 06:29] LABS: Absolute Lymphocytes (CBC) 1.1 K/uL (0.7-4.9); Hematocrit 27.6 % (36.0-45.0); Lymphocytes % 26.7 % (15.3-44.8); MPV 8.1 fL (7.6-11.3)
[2021-08-19 06:41] LABS: Magnesium 2.1 mg/dL (1.8-2.4); Potassium 4.3 mmol/L (3.5-5.1)
--- NOTE | 2021-08-19 06:53 | TREADPHA ---
DX: CHEST PAIN Date of Study: 08/18/2021 Ht: 5' 4 " Wt: 250 lb 0.067 oz Consulting Physician: MINOO MEDICATIONS: ASPIRIN, LOVENOX HISTORY: 75 YEAR FEMALE WITH COMPLAINTS OF CHEST PAIN. HISTORY OF HYPERTENSION, HYPERLIPEMIA, CORONARY ARTERY DISEASE, STROKE, NON SMOKER, NON DRINKER. PHYSICIAL EXAMINATION: RESTING B.P.: 153/111 RESTING H.R.: 94 RESTING EKG: WITHIN NORMAL LIMITS PROTOCOL: LEXISCAN EXERCISE TIME: 3:30 B.P. AT PEAK STRESS: 138/80 IMPRESSION: LEXISCAN INJECTED, FOLLOWED BY CARDIOLITE PER PROTOCOL. SEE NUCLEAR MEDICINE REPORT. NO SUPRAVENTRICULAR OR VENTRICULAR TACHYCARDIA. NO PREMATURE ATRIAL COMPLEXES OR PREMATURE VENTRICULAR COMPLEXES NOTED. PATIENT REPORTS NO CHEST PAIN. NO EKG CHANGES OF ISCHEMIA WITH LEXISCAN.
[2021-08-19] MEDS: ASPIRIN EC 81 MG TAB PO SCH (09:52)
[2021-08-19] MEDS: CEFTRIAXONE 1,000 MG in NA CHLORIDE 0.9% 50 ML IVPB SCH (09:52)
--- NOTE | 2021-08-19 10:18 | RAD REPORT ---
EXAM DESCRIPTION: CT - Sinus Wo Cont - 08/19/2021 9:48 am CLINICAL HISTORY: Facial pain, left ear and jaw pain for several weeks COMPARISON: CT head 08/16/2021 TECHNIQUE: Axial 3 mm thick images of the paranasal sinuses were obtained. Coronal reformatted image s were reviewed. All CT scans are performed using dose optimization technique as appropriate and may include automated exposure control or mA/KV adjustment according to patient size. FINDINGS: Mucosal thickening is present in the right maxillary sinus with a small air-fluid level. T here is thickening and sclerotic change to the right maxillary sinus milan. Paranasal sinuses are oth erwise clear. No soft tissue masses are identified. Globes and orbital contents are normal. Mastoid air cells are c lear. Middle ears are normally opacified. No temporal bone abnormality seen. Mandibular condyles are normally positioned in each glenoid. No asymmetric or significant degenerativ e change at either TM joint. Patient has normal variant hyperostosis frontalis interna variant. IMPRESSION: Acute and chronic right maxillary sinusitis changes. No abnormality found to explain left-sided jaw and facial pain.
--- NOTE | 2021-08-19 10:23 | RAD REPORT ---
EXAM DESCRIPTION: CT - Soft Tissue Neck Wo Contr - 08/19/2021 9:48 am CLINICAL HISTORY: L jaw/ear pain extends to neck COMPARISON: Head C Spine Mpr Wo Con dated 06/14/2020; C Spine Wo Con dated 04/21/2019; Soft Tissue N amanda W/Contr dated 10/18/2019 TECHNIQUE: Axial 3 millimeter thick images of the neck soft tissues obtained without IV contrast. Ax ial 1.5 mm reconstruction images were generated along with 2 mm thick sagittal and coronal reconstruc tion views. All CT scans are performed using dose optimization technique as appropriate and may include automated exposure control or mA/KV adjustment according to patient size. FINDINGS: Intracranial portion the examination is unremarkable. Patient has hyperostosis frontalis i nterna. Mastoid air cells and middle ears are clear. Right maxillary sinus acute and chronic sinusiti s findings. Mandibular condyles are normally positioned with no significant or asymmetric degenerative pattern. No pharyngeal mucosal mass or asymmetry. No tonsil or tongue base abnormality. The soft palate is unr emarkable. No epiglottis abnormality. Laryngeal structures within normal range as well. Patient has rim calcified thyroid nodules on the left that are not clearly different from June 23 study. No abnormal mass or lymphadenopathy in the neck soft tissues. Asymmetric atrophy or fatty infiltratio n pattern seen in each parotid gland similar to comparison. Normal submandibular glands are seen. The re is no abnormal lymphadenopathy in the neck. No suspicious mass lesion. Cervical spine degenerative changes are present. There is multilevel bony foraminal encroachment mostly from facet joint hypertr ophy. IMPRESSION: No lymphadenopathy, mass or other suspicious finding. No abnormality seen to explain lef t-sided ear, trauma and neck pain. Nonacute findings detailed in the body of the report.
--- NOTE | 2021-08-19 11:22 | P.PN ---
Subjective Date of Service: 08/19/21 Chief Complaint: AMS/UTI/NSTEMI Patient seen and examined at bedside, denies any acute complaints. Review of Systems 10-point ROS is otherwise unremarkable Physical Examination - Vital Signs Temperature: 97.1 F Blood Pressure: 159/76 Pulse: 75 Respirations: 18 Pulse Ox (%): 100 - Studies Laboratory Last Values WBC 15.20 K/uL (4.3-10.9) H 08/16/21 11:40 RBC 3.80 M/uL (3.86-4.86) L 08/16/21 11:40 Hgb 12.6 g/dL (12.0-15.0) 08/16/21 11:40 Hct 38.1 % (36.0-45.0) 08/16/21 11:40 MCV 100.3 fL (80-100) H 08/16/21 11:40 MCH 33.2 pg (27.0-35.0) 08/16/21 11:40 MCHC 33.1 g/dL (32.0-36.0) 08/16/21 11:40 RDW 13.4 % (12.1-15.2) 08/16/21 11:40 Plt Count 130 K/uL (152-406) L 08/16/21 11:40 MPV 9.2 fL (7.6-11.3) 08/16/21 11:40 Neutrophils % 77.1 % (41.7-73.7) H 08/16/21 11:40 Lymphocytes % 10.2 % (15.3-44.8) L 08/16/21 11:40 Monocytes % 12.1 % (3.3-12.3) 08/16/21 11:40 Eosinophils % 0.2 % (0-4.4) 08/16/21 11:40 Basophils % 0.4 % (0-1.3) 08/16/21 11:40 Absolute Neutrophils 11.8 K/uL (1.8-8.0) H 08/16/21 11:40 Segmented Neutrophils 79 % (40-80) 08/16/21 11:40 Absolute Lymphocytes 1.5 K/uL (0.7-4.9) 08/16/21 11:40 Lymphocytes 10 % (15-42) L 08/16/21 11:40 Monocytes 11 % (0-10) H 08/16/21 11:40 Absolute Monocytes 1.8 K/uL (0.1-1.3) H 08/16/21 11:40 Absolute Eosinophils 0.0 K/uL (0-0.5) 08/16/21 11:40 Absolute Basophils 0.1 K/uL (0-0.5) 08/16/21 11:40 Platelet Estimate Adeq 08/16/21 11:40 Morphology Comment Not seen (NOT SEEN) 08/16/21 11:40 PT 11.5 SECONDS (9.5-12.5) 08/16/21 11:40 INR 1.00 08/16/21 11:40 APTT 24.0 SECONDS (24.3-36.9) L 08/16/21 11:40 Sodium 136 mmol/L (136-145) 08/16/21 11:40 Potassium 4.6 mmol/L (3.5-5.1) 08/16/21 11:40 Chloride 105 mmol/L (98-107) 08/16/21 11:40 Carbon Dioxide 24 mmol/L (21-32) 08/16/21 11:40 BUN 30 mg/dL (7-18) H 08/16/21 11:40 Creatinine 1.95 mg/dL (0.55-1.3) H 08/16/21 11:40 Estimated GFR 25 mL/min (=/>90) L 08/16/21 11:40 Glucose 93 mg/dL (74-106) 08/16/21 11:40 Lactic Acid 1.6 mmol/L (0.4-2.0) 08/16/21 11:40 Calcium 9.7 mg/dL (8.5-10.1) 08/16/21 11:40 Magnesium 2.3 mg/dL (1.8-2.4) 08/16/21 11:40 Total Bilirubin 0.4 mg/dL (0.2-1.0) 08/16/21 11:40 Direct Bilirubin 0.2 mg/dL (0-0.2) 08/16/21 11:40 AST 20 U/L (15-37) 08/16/21 11:40 ALT 14 U/L (12-78) 08/16/21 11:40 Alkaline Phosphatase 93 U/L (45-117) 08/16/21 11:40 Troponin I High Sens 1919.30 pg/mL (<58.9) H* 08/16/21 11:40 NT-Pro-B Natriuret Pep 3921 pg/mL (<125) H 08/16/21 11:40 Serum Total Protein 7.5 g/dL (6.4-8.2) 08/16/21 11:40 Albumin 3.0 g/dL (3.4-5.0) L 08/16/21 11:40 Globulin 4.5 g/dL (2.3-3.5) H 08/16/21 11:40 Albumin/Globulin Ratio 0.7 (1.1-1.8) L 08/16/21 11:40 Procalcitonin 0.21 ng/mL (<0.050) H 08/16/21 11:40 Urine pH 6.5 (5.0-7.0) 08/16/21 10:51 Ur Specific [place] 1.025 (1.005-1.030) 08/16/21 10:51 Glucose (UA)(Auto) Negative (Negative) 08/16/21 10:51 Urine Ketones Trace (Negative) H 08/16/21 10:51 Urine Blood 1+ (Negative) H 08/16/21 10:51 Urine Nitrite Positive (Negative) H 08/16/21 10:51 Ur Leukocyte Esterase 3+ (Negative) H 08/16/21 10:51 Urine Total Protein 2+ (Negative) H 08/16/21 10:51 Influenza Type A RNA Negative (NEGATIVE) 08/16/21 11:00 Influenza Type B RNA Negative (NEGATIVE) 08/16/21 11:00 SARS-CoV-2 RNA (RT-PCR) Negative (NEGATIVE) 08/16/21 11:00 Microbiology Data (last 24 hrs): 08/16/21 11:40 Blood - Blood Gram Stain - Final 08/16/21 10:50 Clean Catch Urine [place] Count - Final >100,000 CFU/ML. 08/16/21 10:50 Clean Catch Urine - Final Escherichia Coli Medications List Reviewed: Yes Assessment And Plan - Plan Physical exam: General: Oriented x3 HEENT: Atraumatic, Normocephalic Neck: Supple, 2+ carotid pulse no bruit Respiratory: Clear to auscultation bilaterally, Normal air movement Cardiovascular: Normal pulses, Regular rate/rhythm Gastrointestinal: Normal bowel sounds, Soft and benign Musculoskeletal: No clubbing, No swelling, No contractures Integumentary: No rashes, No breakdown, No significant lesion Urinary: Steele catheter External genitalia: No lesions Conclusions/Impression: Antibiotics Rocephin: 08/16current Assessment/plan Urosepsis -Urine culture growing E. coli, pansensitive Blood cultures growing E. coli, pansensitive -Repeat blood cultures obtained on 08/17 show no growth at 24 hours. -We will treat with IV antibiotics for 7 days following negative blood culture report~tentative end date of 08/23 -Continue monotherapy with IV Rocephin. Patient will likely need mid or PICC line. Left ear infection -Patient states that she has had left ear otalgia for the past few weeks. Denies drainage or changes in hearing. -Continue Rocephin Medical management per primary team Plan of care discussed with Dr. Savage Thank you for consultation.
[2021-08-19] MEDS: ACETAMINOPHEN 500 MG TAB PO PRN ×2 (13:57→21:08)
[2021-08-19] MEDS: ENOXAPARIN 30 MG/0.3 ML SQ SCH (16:49)
[2021-08-20] MEDS: MORPHINE 2 MG/ML SYR IV PRN ×2 (00:28→08:14)
[2021-08-20 06:00] LABS: Absolute Lymphocytes (CBC) 1.3 K/uL (0.7-4.9); Hematocrit 27.2 % (36.0-45.0); Lymphocytes % 34.8 % (15.3-44.8); MPV 7.6 fL (7.6-11.3); RBC Red Blood Cell Count 2.74 M/uL (3.86-4.86)
[2021-08-20 06:17] LABS: Potassium 4.2 mmol/L (3.5-5.1)
--- NOTE | 2021-08-20 06:21 | P.PN ---
Date of Service: 08/20/21 Subjective: ROS: 10 point ROS as noted above, otherwise negative Physical exam GEN: Alert, oriented x2, demented HEENT: Normal conjunctiva, sclera anicteric. L TM no erythema, no effusion. 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 coli Infectious disease consulted Midline ordered, will need 7 days IV antibiotics negative blood cultures Continue IV Rocephin for now Patient reports some left ear discomfort but she weeks, denies drainage, no change in hearing. Left tympanic membrane appears normal, no evidence of otitis media or externa We will obtain CT face/neck to further evaluate. Appears to have some slight swelling of the left lower face, rule out parotiditis Code: Full Dispo: Anticipate DC in 1-2 days, likely SNF
[2021-08-20] MEDS ORDERED: CEFTRIAXONE 2000 MG/VIAL ONE (08:14)
[2021-08-20] MEDS: ASPIRIN EC 81 MG TAB PO SCH (08:15)
[2021-08-20] MEDS ORDERED: NA CHLORIDE 0.9% 50 ML ONE (08:15)
[2021-08-20] MEDS ORDERED: CEFTRIAXONE 2,000 MG in NA CHLORIDE 0.9% 50 ML IV SCH (09:00)
[2021-08-20] MEDS ORDERED: MEMANTINE HCL 10 MG TABLET PO SCH ×2 (09:15→21:00)
[2021-08-20] MEDS ORDERED: ARIPiprazole 5 MG TAB PO SCH (09:30)
[2021-08-20] MEDS ORDERED: TOPIRAMATE 100 MG TAB PO SCH (10:00)
[2021-08-20] MEDS ORDERED: DIVALPROEX ER 250 MG TAB PO SCH (10:00)
--- NOTE | 2021-08-20 11:09 | P.PN ---
Subjective Date of Service: 08/20/21 Chief Complaint: AMS/UTI/NSTEMI Patient seen and examined at bedside, still complaining of left sided ear/matilde/facial pain. Ct neck and sinus negative for any aucte findings. Review of Systems 10-point ROS is otherwise unremarkable Physical Examination - Vital Signs Temperature: 96.8 F Blood Pressure: 147/74 Pulse: 68 Respirations: 17 Pulse Ox (%): 99 - Studies Laboratory Last Values WBC 15.20 K/uL (4.3-10.9) H 08/16/21 11:40 RBC 3.80 M/uL (3.86-4.86) L 08/16/21 11:40 Hgb 12.6 g/dL (12.0-15.0) 08/16/21 11:40 Hct 38.1 % (36.0-45.0) 08/16/21 11:40 MCV 100.3 fL (80-100) H 08/16/21 11:40 MCH 33.2 pg (27.0-35.0) 08/16/21 11:40 MCHC 33.1 g/dL (32.0-36.0) 08/16/21 11:40 RDW 13.4 % (12.1-15.2) 08/16/21 11:40 Plt Count 130 K/uL (152-406) L 08/16/21 11:40 MPV 9.2 fL (7.6-11.3) 08/16/21 11:40 Neutrophils % 77.1 % (41.7-73.7) H 08/16/21 11:40 Lymphocytes % 10.2 % (15.3-44.8) L 08/16/21 11:40 Monocytes % 12.1 % (3.3-12.3) 08/16/21 11:40 Eosinophils % 0.2 % (0-4.4) 08/16/21 11:40 Basophils % 0.4 % (0-1.3) 08/16/21 11:40 Absolute Neutrophils 11.8 K/uL (1.8-8.0) H 08/16/21 11:40 Segmented Neutrophils 79 % (40-80) 08/16/21 11:40 Absolute Lymphocytes 1.5 K/uL (0.7-4.9) 08/16/21 11:40 Lymphocytes 10 % (15-42) L 08/16/21 11:40 Monocytes 11 % (0-10) H 08/16/21 11:40 Absolute Monocytes 1.8 K/uL (0.1-1.3) H 08/16/21 11:40 Absolute Eosinophils 0.0 K/uL (0-0.5) 08/16/21 11:40 Absolute Basophils 0.1 K/uL (0-0.5) 08/16/21 11:40 Platelet Estimate Adeq 08/16/21 11:40 Morphology Comment Not seen (NOT SEEN) 08/16/21 11:40 PT 11.5 SECONDS (9.5-12.5) 08/16/21 11:40 INR 1.00 08/16/21 11:40 APTT 24.0 SECONDS (24.3-36.9) L 08/16/21 11:40 Sodium 136 mmol/L (136-145) 08/16/21 11:40 Potassium 4.6 mmol/L (3.5-5.1) 08/16/21 11:40 Chloride 105 mmol/L (98-107) 08/16/21 11:40 Carbon Dioxide 24 mmol/L (21-32) 08/16/21 11:40 BUN 30 mg/dL (7-18) H 08/16/21 11:40 Creatinine 1.95 mg/dL (0.55-1.3) H 08/16/21 11:40 Estimated GFR 25 mL/min (=/>90) L 08/16/21 11:40 Glucose 93 mg/dL (74-106) 08/16/21 11:40 Lactic Acid 1.6 mmol/L (0.4-2.0) 08/16/21 11:40 Calcium 9.7 mg/dL (8.5-10.1) 08/16/21 11:40 Magnesium 2.3 mg/dL (1.8-2.4) 08/16/21 11:40 Total Bilirubin 0.4 mg/dL (0.2-1.0) 08/16/21 11:40 Direct Bilirubin 0.2 mg/dL (0-0.2) 08/16/21 11:40 AST 20 U/L (15-37) 08/16/21 11:40 ALT 14 U/L (12-78) 08/16/21 11:40 Alkaline Phosphatase 93 U/L (45-117) 08/16/21 11:40 Troponin I High Sens 1919.30 pg/mL (<58.9) H* 08/16/21 11:40 NT-Pro-B Natriuret Pep 3921 pg/mL (<125) H 08/16/21 11:40 Serum Total Protein 7.5 g/dL (6.4-8.2) 08/16/21 11:40 Albumin 3.0 g/dL (3.4-5.0) L 08/16/21 11:40 Globulin 4.5 g/dL (2.3-3.5) H 08/16/21 11:40 Albumin/Globulin Ratio 0.7 (1.1-1.8) L 08/16/21 11:40 Procalcitonin 0.21 ng/mL (<0.050) H 08/16/21 11:40 Urine pH 6.5 (5.0-7.0) 08/16/21 10:51 Ur Specific [place] 1.025 (1.005-1.030) 08/16/21 10:51 Glucose (UA)(Auto) Negative (Negative) 08/16/21 10:51 Urine Ketones Trace (Negative) H 08/16/21 10:51 Urine Blood 1+ (Negative) H 08/16/21 10:51 Urine Nitrite Positive (Negative) H 08/16/21 10:51 Ur Leukocyte Esterase 3+ (Negative) H 08/16/21 10:51 Urine Total Protein 2+ (Negative) H 08/16/21 10:51 Influenza Type A RNA Negative (NEGATIVE) 08/16/21 11:00 Influenza Type B RNA Negative (NEGATIVE) 08/16/21 11:00 SARS-CoV-2 RNA (RT-PCR) Negative (NEGATIVE) 08/16/21 11:00 Microbiology Data (last 24 hrs): 08/16/21 11:40 Blood - Blood Gram Stain - Final Medications List Reviewed: Yes Assessment And Plan - Plan Physical exam: General: Oriented x3 HEENT: Atraumatic, Normocephalic Neck: Supple, 2+ carotid pulse no bruit Respiratory: Clear to auscultation bilaterally, Normal air movement Cardiovascular: Normal pulses, Regular rate/rhythm Gastrointestinal: Normal bowel sounds, Soft and benign Musculoskeletal: No clubbing, No swelling, No contractures Integumentary: No rashes, No breakdown, No significant lesion Urinary: Steele catheter External genitalia: No lesions Conclusions/Impression: Antibiotics Rocephin: 08/16current Assessment/plan Urosepsis -Urine culture growing E. coli, pansensitive Blood cultures growing E. coli, pansensitive -Repeat blood cultures obtained on 08/17 show no growth at 24 hours. -We will treat with IV antibiotics for 7 days following negative blood culture r eport~tentative end date of 08/23 -Continue monotherapy with IV Rocephin. Right arm mid line placed. Left ear infection? -Patient states that she has had left ear otalgia for the past few weeks. Associated symptoms include left side jaw/facial pain. Denies drainage or changes in hearing. CT soft tissue neck and sinus negative for any acute findings. -Continue Rocephin Medical management per primary team Plan of care discussed with Dr. Savage Thank you for consultation.
--- NOTE | 2021-08-20 13:37 | P.DS ---
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 Patient was found have a urinary tract infection. Patient also had significantly elevated troponin level. Spoke to Cardiology and because her mentation is so poor and not really having any chest pain, they wanted us to manage conservatively at this time. Troponins elevated on arrival. Plan to treat with IV antibiotics and gentle hydration. Will monitor labs closely. Cardiology will also plan to do stress test on Wednesday. At this time, patient be admitted for further treatment. Hospital Course: Patient was found to have UTI with e.coli bacteremia. She improved with IV antibiotics. ID was consulted and recommended 7 days of IV rocephin from negative blood cultures (08/17). A midline was placed for antibiotic administration. AMBAR and AMS improved throughout her hospitalization. She was noted to have elevated troponins /NSTEMI. Cardiology was consulted and patient had a negative echo/stress test. No further interventions or changes in medications were recommended. Suspect NSTEMI secondary to demand ischemia. Patient did report some L facial/ear pain that was going on for a few days. Her tympanic membrane was normal on exam, CT face/neck was performed and no acute process identified. She was restarted on her home medications with some improvement. Possibly from missing some of her medications. Patient was stable for discharge to SNF. Vital Signs/Physical Exam: Physical exam GEN: Alert, oriented x2, demented HEENT: Normal conjunctiva, sclera anicteric. L TM no erythema, no effusion CV: Regular rate and rhythm, no edema Pulm: Nonlabored respirations on room air ABD: Soft, nontender, nondistended Integumentary: No rashes Neuro: Normal speech, normal affect, +dementia Temp Pulse Resp BP Pulse Ox 96.8 F 68 17 147/74 H 99 08/20/21 11:09 08/20/21 11:09 08/20/21 11:08/20/21 11:08/20/21 11:09 Laboratory Data at Discharge: WBC 3.60 K/uL (4.3-10.9) L 08/20/21 05:35 Hgb 9.0 g/dL (12.0-15.0) L 08/20/21 05:35 Hct 27.2 % (36.0-45.0) L 08/20/21 05:35 Plt Count 96 K/uL (152-406) L 08/20/21 05:35 PT 11.5 SECONDS (9.5-12.5) 08/16/21 11:40 INR 1.00 08/16/21 11:40 APTT 29.3 SECONDS (24.3-36.9) 08/17/21 13:51 Sodium 144 mmol/L (136-145) 08/20/21 05:35 Potassium 4.2 mmol/L (3.5-5.1) 08/20/21 05:35 BUN 19 mg/dL (7-18) H 08/20/21 05:35 Creatinine 1.13 mg/dL (0.55-1.3) 08/20/21 05:35 Glucose 90 mg/dL (74-106) 08/20/21 05:35 Phosphorus 3.4 mg/dL (2.5-4.9) 08/17/21 06:49 Magnesium 2.1 mg/dL (1.8-2.4) 08/19/21 05:59 Total Bilirubin 0.2 mg/dL (0.2-1.0) 08/17/21 06:49 AST 14 U/L (15-37) L 08/17/21 06:49 ALT 11 U/L (12-78) L 08/17/21 06:49 Alkaline Phosphatase 72 U/L (45-117) 08/17/21 06:49 Home Medications: Divalproex ER [Depakote *ER] 3 tab PO BID 10/18/19 Donepezil HCl 10 mg PO BID 10/18/19 Hydrocodone 5/APAP 325 [Golden 5/325*] 1 tab PO DAILY 10/18/19 Levothyroxine Sodium 25 mcg PO 0630 10/18/19 Memantine HCl 10 mg PO BID 10/18/19 Ondansetron [Ondansetron Odt] 4 mg PO Q12H PRN 10/18/19 Topiramate 100 mg PO BID 10/18/19 Ascorbic Acid [Vitamin C*] 500 mg PO Q12H #90 tablet 02/22/20 Calcitrol [Rocaltrol*] 0.5 mcg PO DAILY #30 cap 02/22/20 ARIPiprazole [Abilify*] 5 mg PO DAILY 08/19/21 Aspirin 81 mg PO DAILY 08/19/21 Atorvastatin Calcium [Lipitor*] 20 mg PO DAILY 08/19/21 Cyclobenzaprine [Flexeril*] 10 mg PO BID 08/19/21 Docusate [Colace Cap*] 100 mg PO DAILY 08/19/21 Hydralazine [Apresoline*] 50 mg PO TID 08/19/21 Meloxicam [Mobic*] 7.5 mg PO DAILY 08/19/21 Pantoprazole [Protonix Tab*] 40 mg PO DAILY 08/19/21 Propranolol [Inderal*] 40 mg PO DAILY 08/19/21 Trazodone [Desyrel*] 50 mg PO BEDTIME 08/19/21 Physician Discharge Instructions: Patient was found to have UTI with e.coli bacteremia. She improved with IV antibiotics. ID was consulted and recommended 7 days of IV rocephin from negative blood cultures (08/17). A midline was placed for antibiotic administration. AMBAR and AMS improved throughout her hospitalization. She was noted to have elevated troponins /NSTEMI. Cardiology was consulted and patient had a negative echo/stress test. No further interventions or changes in medications were recommended. Suspect NSTEMI secondary to demand ischemia. Patient did report some L facial/ear pain that was going on for a few days. Her tympanic membrane was normal on exam, CT face/neck was performed and no acute process identified. She was restarted on her home medications with some improvement. Possibly from missing some of her medications. Patient was stable for discharge to SNF. Diet: soft Activity: Fall precautions Followup: NONE,NONE [Primary Care Provider] - Time spent managing pt's care (in minutes): 45
[2021-08-20 14:10] VITALS: BP 116/65; TEMP 96.9
[2021-08-20] MEDS ORDERED: HOME MED 1 EA UNK (Donepezil Hcl [Donepezil Hcl] 10 MG Tablet) PO SCH (21:00)
[2021-08-20] MEDS ORDERED: CYCLOBENZAPRINE 10 MG TAB PO SCH (21:00)
[2021-08-21] MEDS ORDERED: LEVOTHYROXINE SOD 0.025 MG TAB PO SCH (06:30)
[2021-08-21] MEDS ORDERED: ATORVASTATIN 20 MG TAB PO SCH (09:00)
[2021-08-21] MEDS ORDERED: PANTOPRAZOLE 40MG TABLET PO SCH (09:00)
== END 2021-08-20 15:50 | DRG 689 ==
LOC: ER 10:34 → ERHOLD 13:08 → 2ND 16:36
PROVIDERS: ADMIT Hospitalist; ATTEND Hospitalist
DX: N39.0 Urinary tract infection, site not specified (principal); J96.01 Acute respiratory failure with hypoxia; I21.A1 Myocardial infarction type 2; N17.9 Acute kidney failure, unspecified; G93.40 Encephalopathy, unspecified; F03.91 Unspecified dementia, unspecified severity, with behavioral disturbance; R78.81 Bacteremia; G20 Parkinson's disease; E78.5 Hyperlipidemia, unspecified; I12.9 Hypertensive chronic kidney disease with stage 1 through stage 4 chronic kidney disease, or unspecified chronic kidney disease; N18.30 Chronic kidney disease, stage 3 unspecified; F31.9 Bipolar disorder, unspecified; E03.9 Hypothyroidism, unspecified; H66.92 Otitis media, unspecified, left ear; J44.9 Chronic obstructive pulmonary disease, unspecified; B96.20 Unspecified Escherichia coli [E. coli] as the cause of diseases classified elsewhere; R77.8 Other specified abnormalities of plasma proteins; Z86.73 Personal history of transient ischemic attack (TIA), and cerebral infarction without residual deficits; Z99.3 Dependence on wheelchair; Z88.0 Allergy status to penicillin; Z88.5 Allergy status to narcotic agent; Z86.718 Personal history of other venous thrombosis and embolism; Z79.82 Long term (current) use of aspirin; Z79.890 Hormone replacement therapy; Z79.899 Other long term (current) drug therapy; Z96.653 Presence of artificial knee joint, bilateral; Z20.822 Contact with and (suspected) exposure to COVID-19
CPT/HCPCS: 0240U; 36415; 70450; 70486; 70490; 71045; 78452; 80048; 80053; 80076; 81003; 83605; 83735; 83880; 84100; 84145; 84484; 85025; 85610; 85730; 87040; 87077; 87086; 87088; 87186; 87205; 93005; 93017; 97116; 97161; 97530; 99285; A9500; J0696; J1644; J1650; J2270; J2785; J7030; J7050; U0003

== ENCOUNTER 2021-12-05 16:13 | Inpatient (IN) | payer OTHER, BC ==
--- OUTSIDE RECORDS SUMMARY | 2021-12-05 16:20 | XMS REPORT | Continuity of Care Document ---
:1945 Author Organization [facility] t Address [address] [place] [address] Care Team Providers Name Role Phone AustinGodfrey pace Jr. Primary Care Physician Chauncey Alegre Attending Clinician Unavailable MARGY BETANCOURT Attending Clinician Unavailable [id number] Attending Clinician Unavailable Misael Attending Clinician Unavailable Chauncey Slaughter MD Attending Clinician Doctor Unassigned, Name Attending Clinician Unavailable Sanjay Lindquist Attending Clinician Unavailable Farooq Canela Attending Clinician Unavailable Franchesca Attending Clinician Unavailable Chauncey LINDQUIST Attending Clinician Unavailable Sánchez Solano Attending Clinician Unavailable Herson Rondon Attending Clinician Unavailable MARGY BETANCOURT Admitting Clinician Unavailable [id number] Admitting Clinician Unavailable Misael Admitting Clinician Unavailable Physician, Primary or Family Admitting Clinician Unavailолег Sorensen Admitting Clinician Unavailable KNOW Admitting Clinician Unavailable JATINDER Admitting Clinician Unavailable Payers Payer Name Policy Type Policy Number Effective Date Expiration Date S ryanne [facility] [id number] BCTX BCTI [id number] Problems Condition Condition Condition Status Onset Resolution Last Treating Co mments Source Name Details Category Date Date Treatment Clinician Date UTI UTI Disease Active 2015-07 Univers (urinary (urinary 1-23 ity of tract tract 00:00: [place] infection) infection) 00 Me dical Branch Knee joint Knee joint Disease Active 2015-07 U nivers replacemen replacemen 0-13 it y of t status t status 00:00: [place] 00 Medical Branch Morbid Morbid Disease Active 2015-07 Univers obesity obesity 0-12 ity of 00:00: [place] [id number] Medical [place] Pain Pain Disease Active 2015-07 Univers 0-12 ity of 00:00: [place] [address] Medical Branch History of History of Disease Active U nivers DVT (deep DVT (deep ity of vein vein [place] thrombosis thrombosis Me dical ) ) Branch Hypertensi Hypertensi Disease Active U nivers on on ity of [facility] Anemia Anemia Disease Active Univers ity of [facility] Arthritis Arthritis Disease Active Uni vers ity of [facility] Chronic Chronic Disease Active Univers kidney kidney ity of disease disease [facility] Allergies, Adverse Reactions, Alerts Allergy Allergy Status Severity Reaction(s) Onset Inactive Treating Comm ents Source Name Type Date Date Clinician No Known DA Active U 2020-1 [facility] Allergie 0-04 Clear s 00:00: [place] 00 [facility] No Known DA Active U 2020-1 [facility] Allergie 0-04 Clear s 00:00: [place] 00 [facility] No Known DA Active U 2020-0 [facility] Allergie 2-20 [facility] [place] No Known DA Active U 2020-0 [facility] Allergie 2-20 [place] [facility] 00:[facility]: [facility] 00 [place] Social History Social Habit Start Date Stop Date Quantity Comments Source Exposure to 2021-11-03 2021-11-13 Not sure [facility] SARS-CoV-2 00:00:00 08:18:00 [facility] (event) Branch Alcohol intake 2021-11-13 2021-11-13 Current University of 00:00:00 00:00:00 non-drinker of [facility] alcohol Branch (finding) Tobacco Comment 2014-11-08 2014-11-08 denies smoking Unive rsity of 00:00:00 00:00:00 [facility] Sex [birth year] At [birth year] Universit y of 00:00:00 00:00:00 [facility] Smoking Status Start Date Stop Date Source Never smoker [facility] Medical Branch Medications Ordered Filled Start Stop Current Ordering Indication Dosage Frequency Signature Comments Components Source Medication Medication Date Date Medication? Clinician (SIG) Name Name Chalo Isabel 2019- 2020- No Na Alegre 1 tablet Com mon 03-17 Spirit 00:00: 00:00 - [facility]I 00 :00 [facility] Santyl Santyl 2019-0 2020- No Na Alegre 1 Commo n 01-07 applicatio Spirit 00:00: 00:00 n nickel - CHI 00 :00 thickness [facility] Zofran Zofran 2019- Yes Na Alegre 1 tablet Co mmon 2-14 Spirit 00:00: - CHI 00 [facility] Comp Air Comp Air 2018- Yes Na Alegre as Co mmon Compressor Compressor 2-13 directed Spirit Nebulizer Nebulizer 00:00: - C HI 00 [facility] Levothyroxi Levothyroxi 2018- Yes Na Alegre 1 tablet Common ne Sodium ne Sodium 0-24 in the Spi rit 00:00: morning on - CHI 00 an empty stomach [facility] Imitrex Imitrex 2019-0 Yes Na Alegre 1 tablet Common 930 as needed Spirit 00:00: - CHI 00 [facility] Flonase Flonase 2019-0 Yes Na Alegre 1 spray in Common 6-06 each Spirit 00:00: nostril - CHI 00 [facility] Claritin Claritin 2019-0 Yes Na Alegre 1 tablet Common 6-06 Spirit 00:00: - CHI 00 [facility] FOLIC 2015- Yes 1{tbl} Take 1 Univers ACID/MULTIV 1-30 tablet by ity of IT-MIN/LUTE 16:28: mouth [place] IN (CENTRUM 08 daily. Medica l SILVER Branch ORAL) MULTIVITAMI 2015-07 Yes 1{tbl} Take 1 Un nena N ORAL 1-30 tablet by ity of 16:28: mouth [place] 08 daily. Medical Branch mv,iron,min 2015-07 Yes 1{capsu Take 1 U nivers -folic 1-30 le} capsule by ity of acid-biotin 16:28: mouth [place] (HAIR, SKIN 08 daily. Medica l AND Branch NAILS-ARGAN OIL) 66.7-1,666. 7 mcg Cap cholecalcif 2015-07 Yes 1000U Take 1,000 Univers jameson, 1-30 Units by ity of vitamin D3, 16:28: mouth 2 Daniel as 1,000 unit 08 (two) Medical tablet times Branch daily. fexofenadin 2015-07 Yes 180mg Take 180 U nivers e (GUILLERMINA 1-30 mg by ity of ALLERGY) 16:28: mouth [place] 180 mg 08 daily. Medical tablet Branch FOLIC 2015-07 Yes 1{tbl} Take 1 Univers ACID/MULTIV 1-30 tablet by ity of IT-MIN/LUTE 16:28: mouth [place] IN (CENTRUM 08 daily. Medica l SILVER Branch ORAL) MULTIVITAMI 2015-07 Yes 1{tbl} Take 1 Un nena N ORAL 1-30 tablet by ity of 16:28: mouth [place] 08 daily. Medical Branch mv,iron,min 2015-07 Yes 1{capsu Take 1 U nivers -folic 1-30 le} capsule by ity of acid-biotin 16:28: mouth [place] (HAIR, SKIN 08 daily. Medica l AND Branch NAILS-ARGAN OIL) 66.7-1,666. 7 mcg Cap cholecalcif 2015-07 Yes 1000U Take 1,000 Univers jameson, 1-30 Units by ity of vitamin D3, 16:28: mouth 2 Daniel as 1,000 unit 08 (two) Medical tablet times Branch daily. fexofenadin 2015-07 Yes 180mg Take 180 U nivers e (GUILLERMINA 1-30 mg by ity of ALLERGY) 16:28: mouth [place] 180 mg 08 daily. Medical [...] Medi tori ing tablet Branch folic acid 2015-07 Yes 800ug Take 1 Univ ers (FOLVITE) [...] ity of 25 mg 00:00: mouth at [place] tablet 00 bedtime. Medical Branch tolterodine 2015-07 Yes 2mg Take 1 Univ ers (DETROL) 2 1-30 tablet by ity of mg tablet 00:00: mouth 2 [place] 00 (two) Medical times Branch daily. acetaminoph 2015-07 Yes 650mg Take 2 Uni [...] Medi tori ing tablet Branch folic acid 2015-07 Yes 800ug Take 1 Univ ers (FOLVITE) [...] ity of 25 mg 00:00: mouth at [place] tablet 00 bedtime. Medical Branch tolterodine 2015-07 Yes 2mg Take 1 Univ ers (DETROL) 2 1-30 tablet by ity of mg tablet 00:00: mouth 2 [place] 00 (two) Medical times Branch daily. Divalproex Divalproex Yes Na Alegre 3 tablets Common Sodium Sodium [facility] Lisinopril Lisinopril Yes Na Alegre 1 tablet Common [facility] Carvedilol Carvedilol Yes Na Alegre 1 tablet Common [facility] Simethicone Simethicone Yes Na Alegre 1 tablet Common after Spirit meals and - CHI at bedtime St as needed [facility] Furosemide Furosemide Yes Na Alegre TAKE 1 Common TABLET BY [facility] MOUTH - [facility] EVERY DAY [facility] Duloxetine Duloxetine Yes Na Alegre 1 capsule Common HCl HCl [facility] Benadryl Benadryl Yes Na Alegre 1 tablet Common Allergy Allergy as needed Spir [facility] Metoprolol Metoprolol Yes Na Alegre TAKE 1 Common Succinate Succinate TABLET BY [facility] ER ER MOUTH - CHI TWICE St DAILY AT [facility] 6AM AND Medical 6PM Center Topiramate Topiramate Yes Na Alegre TAKE 1 Common TABLET BY [facility] MOUTH - CHI TWICE St DAILY [facility] Ipratropium Ipratropium Yes Na Alegre 3 ml Common -Albuterol -Albuterol [facility] Calcium Calcium Yes Na Alegre 1 tab Commo n [facility] Carbamazepi Carbamazepi Yes Na Alegre 1 tablet Common ne ne [facility] BuPROPion BuPROPion Yes Na Alegre 1 tablet Common HCl ER (XL) HCl ER (XL) in the [facility] Gabapentin Gabapentin Yes Na Alegre 1 tablet Common [facility] Levothyroxi Levothyroxi Yes Na Alegre 1 tablet Common ne Sodium ne Sodium on an Spir it empty - CHI stomach in [facility] Atorvastati Atorvastati Yes Na Alegre 1 tablet Common n Calcium n Calcium Spiri t [facility] Diclofenac Diclofenac Yes Na Alegre 1 tablet Common Sodium Sodium with food [facility] or milk [facility] Donepezil Donepezil Yes Na Alegre 1 tablet Common HCl HCl at bedtime [facility] Protonix Protonix Yes Na Alegre 1 tablet Common [facility] Ondansetron Ondansetron Yes Na Alegre 1 tablet Common HCl HCl [facility] Oxybutynin Oxybutynin Yes Na Alegre 1 tablet Common [facility]lor[facility] Folic Yes Na Alegre 1 tablet Common Acid-Vit Acid-Vit Spirit B6-Vit B12 B6-Vit B12 - C HI [facility] Memantine Memantine Yes Na Alegre 1 tablet Common HCl HCl [facility] Trazodone Trazodone Yes Na Alegre not Co mmon HCl HCl defined [facility] Imodium A-D Imodium A-D Yes Na Alegre 1 tablet Common as needed [facility] Melatonin Melatonin Yes Na Alegre 1 tablet Common at bedtime [facility] as needed - CHI with food [facility] Vitamin D Vitamin D Yes Na Alegre 1 tablet Common [facility] Zantac Zantac Yes Na Alegre 1 tablet Comm on at bedtime [facility] Vital Signs Vital Name Observation Time Observation Value Comments Source Body weight 2021-11-13 13:24:00 97.977 kg [facility] BMI 2021-11-13 13:24:00 30.13 kg/m2 [facility] Body height 2021-11-13 13:24:00 180.3 cm [facility] Procedures Procedure Date / Time Performed Performing Clinician Sour e PHYSICIAN ORDERS 2021-11-13 05:01:00 Doctor Unassigned, No [facility] [id number] 2021-02-15 00:00:00 ENCPL [id number] 2021-02-15 00:00:00 ENCPL [id number] 2021-02-15 00:00:00 ENCPL [id number] 2021-02-15 00:00:00 ENCPL [id number] 2021-02-15 00:00:00 ENCPL [id number] 2021-02-15 00:00:00 ENCPL [id number] 2020-04-22 00:00:00 ENCPL [id number] 2020-04-22 00:00:00 ENCPL [id number] 2020-04-22 00:00:00 ENCPL [id number] 2020-04-22 00:00:00 ENCPL [id number] 2020-04-22 00:00:00 ENCPL [id number] 2020-04-22 00:00:00 ENCPL [id number] 2020-04-22 00:00:00 ENCPL [id number] 2020-04-22 00:00:00 ENCPL [id number] 2020-04-22 00:00:00 ENCPL [id number] 2020-04-22 00:00:00 ENCPL [id number] 2020-04-22 00:00:00 ENCPL [id number] 2020-04-22 00:00:00 ENCPL [id number] 2020-04-22 00:00:00 ENCPL [id number] 2020-04-22 00:00:00 ENCPL [id number] 2020-04-19 00:00:00 ENCPL [id number] 2020-04-19 00:00:00 ENCPL [id number] 2020-04-19 00:00:00 ENCPL [id number] 2020-04-19 00:00:00 ENCPL [id number] 2020-04-19 00:00:00 ENCPL [id number] 2020-04-19 00:00:00 ENCPL [id number] 2020-04-19 00:00:00 ENCPL [id number] 2020-04-19 00:00:00 ENCPL [id number] 2020-04-19 00:00:00 ENCPL [id number] 2020-04-19 00:00:00 ENCPL [id number] 2020-04-19 00:00:00 ENCPL [id number] 2020-04-19 00:00:00 ENCPL [id number] 2020-04-19 00:00:00 ENCPL [id number] 2020-04-19 00:00:00 ENCPL [id number] 2020-04-19 00:00:00 ENCPL [id number] 2020-04-10 00:00:00 YANETH.01 [facility] [id number] 2020-04-07 00:00:00 BROOK.03 [facility] [id number] 2020-04-07 00:00:00 CORAN.03 [facility] Encounters Start End Encounter Admission Attending Care Care Encounter Source Date/Time Date/Time Type Type Clinicians Facility Department ID 2021-11-10 Outpatient Codey, Na STLMLC STLMLC [id number] 2 Common 08:48:02 [facility] 2021-11-04 Outpatient Codey Na STLMLC STLMLC [id number] 2 Common 15:10:00 [facility] 2021-11-03 Outpatient Alegre, Na STLMLC STLMLC [id number] 2 Common 09:18:01 [facility] 2021-08-28 Outpatient 3 SERAFIN, ENCPL CVA ENCPL 08:35:14 MARGY 0224 2021-07-31 Outpatient 3 [id number] ENCPL REF ENCPL 12:37:26 0802 2021-07-31 Outpatient 3 [id number] ENCPL REF [id number] ENCPL 11:03:22 1124 2021-07-31 Outpatient 3 [id number] ENCPL REF [id number] ENCPL 10:46:27 1012 2021-07-31 Outpatient 3 [id number] ENCPL REF [id number] ENCPL 10:45:42 1009 2021-07-31 Outpatient 3 [id number] ENCPL REF [id number] ENCPL 10:42:01 0930 2021-07-31 Outpatient 3 [id number] ENCPL REF [id number] ENCPL 10:41:35 0929 2021-07-30 Outpatient Alegre, Na STLMLC STLMLC [id number] 2 Common 14:29:39 [id number] [facility] 2021-07-30 Outpatient Alegre, Na STLMLC STLMLC [id number] 2 Common 14:29:06 [id number] [facility] 2021-07-30 Outpatient Alegre, Na STLMLC STLMLC [id number] 2 Common 13:55:23 [id number] [facility] 2021-07-30 Outpatient Alegre, Na STLMLC STLMLC [id number] 2 Common 13:54:44 [id number] [facility] 2021-07-30 Outpatient Alegre, Na STLMLC STLMLC [id number] 2 Common 13:52:28 [id number] [facility] 2021-07-30 Outpatient Alegre, Na STLMLC STLMLC [id number] 2 Common 13:24:20 [id number] [facility] 2021-07-30 Outpatient Alegre, Na STLMLC STLMLC [id number] 2 Common 13:20:59 [id number] [facility] 2021-07-30 Outpatient Alegre, Na STLMLC STLMLC [id number] 2 Common 13:20:20 [id number] [facility] 2021-07-30 Outpatient Alegre, Na STLMLC STLMLC [id number] 2 Common 13:19:53 [id number] [facility] 2021-07-30 Outpatient Alegre, Na STLMLC STLMLC [id number] 2 Common 13:02:26 [id number] [facility] 2021-07-30 Outpatient Alegre, Na STLMLC STLMLC [id number] 2 Common 13:01:57 [id number] [facility] 2021-07-30 Outpatient Alegre, Na STLMLC STLMLC [id number] 2 Common 12:52:27 [id number] [facility] 2021-07-30 Outpatient Alegre, Na STLMLC STLMLC [id number] 2 Common 12:14:12 [id number] [facility] 2021-07-30 Outpatient Alegre, Na STLMLC STLMLC [id number] 2 Common 12:00:44 [id number] [facility] 2021-07-30 Outpatient Alegre, Na STLMLC STLMLC [id number] 2 Common 11:58:07 [id number] [facility] 2021-07-30 Outpatient Alegre, Na STLMLC STLMLC [id number] 2 Common 11:57:28 [id number] [facility] 2021-07-30 Outpatient Alegre, Na STLMLC STLMLC [id number] 2 Common 11:48:36 [id number] [facility] 2021-07-30 Outpatient Alegre, Na STLMLC STLMLC [id number] 2 Common 11:48:10 [id number] [facility] 2021-07-30 Outpatient Alegre, Na STLMLC STLMLC [id number] 2 Common 11:28:48 [id number] [facility] 2021-07-30 Outpatient Alegre, Na STLMLC STLMLC [id number] 2 Common 11:28:22 [id number] [facility] 2020-04-07 Inpatient HCAPM CARRILLO [id number] [facility] 13:56:[id number] [facility] 2019-08-24 Inpatient EM Shay Douglas HCATB ELIZABETH [id number] [facility] 18:16:00 [id number] [facility] are [place] 2021-11-13 2021-11-13 Office NEHAL Slaughter [id number] Univers 08:30:00 08:56:54 Visit [facility] [id number] it y of [place] [id number] Daniel as SAUL?BLEA [phone] Pa dical [address] MEDICAL OFFICE BUILDING 2021-11-13 2021-11-13 Orders Doctor GENOVEAV [id number] Univers 00:00:00 00:00:00 Only Unassigned, SHONDA [id number] ity of [place] [facility] [id number] Daniel as [phone] [address] 2021-10-27 2021-10-27 ambulatory STLMLC STLMLC [id number] Common 00:00:00 00:00:00 [facility] 2021-10-23 2021-10-23 ambulatory STLMLC STLMLC [id number] Common 00:00:00 00:00:00 [facility] 2021-09-12 2021-09-12 ambulatory STLMLC STLMLC [id number] Common 00:00:00 00:00:00 [facility] 2021-09-11 2021-09-11 ambulatory STLMLC STLMLC [id number] Common 00:00:00 00:00:00 [facility] 2021-08-30 2021-09-10 Inpatient 3 SERAFIN, ENCPL OTH [id number] ENCPL 15:16:00 11:00:00 MARGY Saavedra 2021-07-28 2021-07-28 ambulatory STLMLC STLMLC [id number] Common 00:00:00 00:00:00 [facility] 2021-06-12 2021-06-12 ambulatory STLMLC STLMLC [id number] Common 00:00:00 00:00:00 [facility] 2021-05-22 2021-05-22 ambulatory STLMLC STLMLC [id number] Common 00:00:00 00:00:00 [facility] 2021-05-19 2021-05-19 ambulatory STLMLC STLMLC [id number] Common 00:00:00 00:00:00 [facility] 2021-04-04 2021-04-04 Outpatient STLMLC STLMLC [id number] Common 00:00:00 00:00:00 [facility] 2021-03-26 2021-03-26 Outpatient STLMLC STLMLC [id number] Common 00:00:00 00:00:00 [facility] 2021-03-12 2021-03-12 Outpatient STLMLC STLMLC [id number] Common 00:00:00 00:00:00 [facility] 2021-02-14 2021-02-14 Outpatient Ameena, HCAPM LABO [id number] [facility] 14:44:00 14:44:00 Devika [id number] [facility] 2021-02-14 2021-02-14 Outpatient Ameena, HCAPM LABO [id number] [facility] 14:44:00 14:44:00 Devika [id number] [facility] 2021-02-13 2021-02-13 Outpatient Hilton, HCAPM RADI LA552 [id number] [facility] 16:14:00 16:14:00 Nel [id number] [facility] 2021-02-13 2021-02-13 Outpatient Ameena, HCAPM LABO [id number] [facility] 13:32:00 13:32:00 Devika [id number] [facility] 2021-02-13 2021-02-13 Outpatient Ameena, HCAPM LABO [id number] [facility] 13:32:00 13:32:00 Devika [id number] [facility] 2021-02-12 2021-02-12 Outpatient Ameena, HCACL LABO [id number] [facility] 19:12:00 19:12:00 Devika [id number] [facility] 2021-02-12 2021-02-12 Outpatient Ameena, HCAPM LABO [id number] [facility] 11:17:00 11:17:00 Devika [id number] [facility] 2021-02-12 2021-02-12 Outpatient Ameena, HCAPM LABO [id number] [facility] 11:17:00 11:17:00 Devika [id number] [facility] 2021-02-11 2021-02-11 Outpatient Nicole Sorensen HCAPM RADI [id number] [facility] 22:28:00 22:28:00 [id number] [facility] 2021-02-05 2021-02-05 Outpatient Nicole Sorensen HCAPM RADI [id number] [facility] 13:47:00 13:47:00 [id number] [facility] 2021-02-04 2021-02-04 Outpatient STLMLC STLMLC [id number] Common 00:00:00 00:00:00 [facility] 2021-01-08 2021-01-08 Outpatient STLMLC STLMLC [id number] Common 00:00:00 00:00:00 [facility] 2021-01-01 2021-01-01 Outpatient STLMLC STLMLC [id number] Common 00:00:00 00:00:00 [facility] 2020-12-18 2020-12-18 Outpatient STLMLC STLMLC [id number] Common 00:00:00 00:00:00 [facility] 2020-10-15 2020-10-15 Outpatient STLMLC STLMLC [id number] Common 00:00:00 00:00:00 [facility] 2020-07-12 2020-07-12 Outpatient STLMLC STLMLC [id number] Common 00:00:00 00:00:00 [facility] 2020-06-11 2020-06-11 Outpatient AMEENA, HCAPM LABO [id number] [facility] 19:25:00 19:25:00 DEVIKA [facility] 2020-06-11 2020-06-11 Outpatient AMEENA, HCAPM LABO [id number] [facility] 19:25:00 19:25:00 DEVIKA [facility] 2020-06-10 2020-06-10 Outpatient AMEENA, HCAPM LABO [id number] 21-20 [facility] 10:43:00 10:43:00 DEVIKA [facility] 2020-06-10 2020-06-10 Outpatient AMEENA, HCAPM LABO [id number] [facility] 10:43:00 10:43:00 DEVIKA [facility] 2020-06-09 2020-06-09 Outpatient AMEENA, HCAPM LABO [id number] [facility] 13:58:00 13:58:00 DEVIKA [facility] 2020-05-16 2020-05-16 Orders Doctor TOMAS [id number] 00:00:00 00:00:00 Only Unassigned, SHONDA [id number] [facility] [id number] 2020-05-11 2020-05-11 Outpatient STLMLC STLMLC [id number] Common 00:00:00 00:00:00 [facility] 2020-05-09 2020-05-09 Outpatient STLMLC STLMLC [id number] Common 00:00:00 00:00:00 [facility] 2020-05-06 2020-05-06 Outpatient STLMLC STLMLC [id number] Common 00:00:00 00:00:00 [facility] 2020-04-26 2020-04-26 Outpatient AMEENA, HCAPM LABO [id number] [facility] 07:57:00 07:57:00 DEVIKA [id number] [facility] 2020-04-22 2020-04-22 Outpatient SERAFIN, HCAPM LABO [id number] [facility] 07:07:00 07:07:00 MARGY [id number] [facility] 2020-04-20 2020-04-20 Outpatient Xiomara, HCAPM LABO [id number] [facility] 16:40:00 16:40:00 Emelia [id number] [facility] 2020-04-20 2020-04-20 Outpatient Xiomara, HCAPM LABO [id number] [facility] 16:40:00 16:40:00 Emelia [id number] [facility] 2020-04-19 2020-04-19 Outpatient Xiomara, HCAPM LABO [id number] [facility] 12:15:00 12:15:00 Emelia 53084 [facility] 2020-04-08 2020-04-08 Outpatient Nela, HCACL LABO [id number] [facility] 00:10:00 00:10:00 Zurdo 04227 [facility] 2020-03-28 2020-03-28 Outpatient STLMLC STLMLC [id number] Common 00:00:00 00:00:00 [facility] 2020-03-17 2020-03-17 [facility] [id number] Common 15:04:00 15:04:[address] [place] [address] [facility] 2020-03-08 2020-03-08 [facility] [id number] Common 16:56:00 16:56:[address] [facility] 2020-02-09 2020-02-09 [facility] [id number] Common 16:59:00 16:59:[address] [facility] 2020-02-05 2020-02-05 [facility] [id number] Common 17:16:00 17:16:[address] [facility] 2020-01-23 2020-01-23 Out[facility] [id number] Common 10:32:00 10:32:[address] [address] [facility] 2020-01-15 2020-01-15 [facility] [id number] Common 09:59:00 09:59:[address] [facility] 2020-01-10 2020-01-10 [facility] [id number] Common 14:25:00 14:25:[address] [address] [facility] 2020-01-08 2020-01-08 [facility] [id number] Common 14:20:00 14:20:[address] [facility] 2020-01-07 2020-01-07 [facility] [id number] Common 19:54:00 19:54:00 [address] [facility] [address] [facility] 2020-01-04 2020-01-04 [facility] [id number] Common 13:37:00 13:37:[address] [facility] 2019-09-13 2019-09-13 [facility] [id number] Common 09:14:00 09:14:[address] [facility] 2019-07-01 2019-07-01 [facility] [id number] Common 15:38:00 15:38:[address] [facility] 2019-06-27 2019-06-27 [facility] [id number] Common 10:00:00 10:00:[address] [place] [address] [facility] 2019-06-21 2019-06-21 [facility] [id number] Common 14:45:00 14:45:[address] [facility] 2019-06-16 2019-06-16 [facility] [id number] Common 15:42:00 15:42:[address] [facility] 2019-06-14 2019-06-14 [facility] [id number] Common 10:40:00 10:40:[address] [facility] 2019-06-06 2019-06-06 [facility] [id number] Common 11:00:00 11:00:[address] [place] [address] [facility] 2019-06-05 2019-06-05 [facility] [id number] Common 16:47:00 16:47:[address] [facility] 2019-05-12 2019-05-12 [facility] [id number] Common 15:40:00 15:40:[address] [facility] [facility] 2019-04-27 2019-04-27 [facility] [id number] Common 16:10:00 16:10:[address] [facility] 2019-04-27 2019-04-27 [facility] 27 [id number] Common 11:20:00 11:20:[address] [facility] 2019-04-03 2019-04-03 [facility] 27 [id number] Common 12:04:00 12:04:[address] [facility] 2019-03-28 2019-03-28 [facility] 27 [id number] Common 13:40:00 13:40:[address] [facility] 2019-03-21 2019-03-21 [facility] 27 [id number] Common 15:40:00 15:40:[address] [facility] 2019-03-14 2019-03-14 [facility] 27 [id number] Common 13:13:00 13:13:[address] [facility] 2019-03-13 2019-03-13 [facility] 27 [id number] Common 14:00:00 14:00:[address] Family [facility] 2018-12-08 2018-12-08 Outpatient Anna Castillot 25 [id number] Common 15:00:00 15:00:00 [facility] Results Test Description Test Time Test [...] CA) 9.6 MG/DL 8.5-10.1 N BASIC METABOLIC [id number] 14:03:00 Test Item Value Reference Range Interpretation [...] CA) 9.0 MG/DL 8.5-10.1 N CBC W/AUTO [id number] 13:54:00 Test Item Value Reference Range Interpretation [...] = MDIFF) UA RFLX MICR CULT IF [id number] 11:59:00 Test Item Value Reference Range Interpretation [...] UACULT) Criteria UA RFLX MICR CULT IF [id number] 11:55:00 Test Item Value Reference Range Interpretation [...] code = UACULT) - CT HEAD/BRAIN W/O [id number] 23:15:00 [facility] : 1945 Sex: F Name: SHANTEL LAURENT [facility] : 8Age/S: 75 / F [address] [facility] [place] Unit #: [id number] Loc: [place] [address] Phys: Nicole Sorensen MD Acct: [id number] Dis Date: Status: REG REF PHONE#: [phone] Exam Date: 02/11/20212249 FAX #: Reason:CVA, COPD, TIA EXAMS: CPT: [id number] CT HEAD/BRAIN W/O CONT 57904 DICTATION LOCATION: 8 HISTORY: Female, 75 years of age with [...] Mila(R) CTDI: DLP: Trnscb Date/Time: 02/11/2021 (2314) t.CLW Orig Print D/T: S: 02/11/2021 (2317) PAGE 1 Signed Report- MRI BRAIN W/O [id number] 15:12:00 [facility] 1945 Sex: F FAX: Nicole Cortes MD Camps: PM St: REG Name: SHANTEL LAURENT [facility] : 1945 Age/S: 75/F [address] [address] [place] Unit #: [id number] Loc: [place] [address] Phys: Nicole Sorensen MD Acct: [id number] Dis Date: Status: REG REF PHONE #: [phone] Exam Date: 02/05/2021 1449 FAX #: Reason: CVA EXAMS: CPT: [id number] MRI BRAIN W/O CONTRAST 11940 B2 - MRI BRAIN W/O CONTRAST HISTORY: [...] Technologist: Morenita Orta, RT(R)(MR) Transcribed Date/Time/By: 02/05/2021 (612) :KingVB7 Orig Print D/T: S: 02/05/2021 (9598) PAGE 1 Signed ReportCOVID 19 INHOUSE [id number] 19:52:00 Test Item Value Reference Range Interpretation Comments COVID 19 INHOUSE AG NEGATIVE Negative Per isadora factdorar, (test code = negative result s should [id number]) be treated aspr esumptive and, if inconsi [...] nicalsigns and symptoms co nsistent with COVID-19. [id number] 10:59:00 Test Item Value Reference Range Interpretation Comments AMMONIA (test code = AMM) 39 mcMOL/L 11-32 H CBC W/AUTO [id number] 14:34:00 Test Item Value Reference Range Interpretation [...] CRITERIA (test code = MDIFF) COMPREHENSIVE METABOLIC [id number] 14:33:00 Test Item Value Reference Range Interpretation [...] 45-117 N code = ALKP) CBC W/AUTO [id number] 08:08:00 Test Item Value Reference Range Interpretation [...] NO DIFF/SCN CRITERIA = MDIFF) CBC W/AUTO [id number] 07:20:00 Test Item Value Reference Range Interpretation [...] NO DIFF/SCN CRITERIA = MDIFF) CBC W/AUTO [id number] 06:15:00 Test Item Value Reference Range Interpretation [...] NO DIFF/SCN CRITERIA = MDIFF) CBC W/AUTO [id number] 16:46:00 Test Item Value Reference Range Interpretation [...] NO DIFF/SCN CRITERIA = MDIFF) CBC W/AUTO [id number] 12:23:00 Test Item Value Reference Range Interpretation [...] (test code NO DIFF/SCN CRITERIA = MDIFF) [id number] 15:11:00 Test Item Value Reference Range Interpretation Comments TRANSFERRRIN (test code 193 mg/dL 192-364 Perf ormed At: BN = TRANSF) [facility] [id number] ra Carlitos ZAMORA Ph:[phone] GLUCOSE BEDSIDE [id number] 13:01:00 Test Item Value Reference Range Interpretation Comments GLUCOSE BEDSIDE TESTING (test code 101 mg/dL 70-110 N = GLUBED) GLUCOSE BEDSIDE [id number] 08:35:00 Test Item Value Reference Range Interpretation Comments GLUCOSE BEDSIDE TESTING (test code 101 mg/dL 70-110 N = GLUBED) GLUCOSE BEDSIDE [id number] 19:42:00 Test Item Value Reference Range Interpretation Comments GLUCOSE BEDSIDE TESTING (test code = 93 mg/dL 70-110 N GLUBED) GLUCOSE BEDSIDE [id number] 16:13:00 Test Item Value Reference Range Interpretation Comments GLUCOSE BEDSIDE TESTING (test code = 96 mg/dL 70-110 N GLUBED) GLUCOSE BEDSIDE [id number] 12:55:00 Test Item Value Reference Range Interpretation Comments GLUCOSE BEDSIDE TESTING (test code 104 mg/dL 70-110 N = GLUBED) CBC W/AUTO [id number] 12:42:00 Test Item Value Reference Range Interpretation [...] 35 % calc 12-57 N FESAT) VITAMIN [id number] 08:58:00 Test Item Value Reference Range Interpretation Comments VITAMIN B12 (test code = VITB12) 479 PG/ML 183-986 N FOLIC [id number] 08:58:00 Test Item Value Reference Range Interpretation Comments FOLIC ACID (test code = FOL) 7.00 NG/ML 3.10-17.50 N [id number] 08:58:00 Test Item Value Reference Range Interpretation Comments FERRITIN (test code = TIO) 154.1 NG/ML 3.0-105.0 H GLUCOSE BEDSIDE [id number] 08:22:00 Test Item Value Reference Range Interpretation Comments GLUCOSE BEDSIDE TESTING (test code 107 mg/dL 70-110 N = GLUBED) BASIC METABOLIC [id number] 06:11:00 Test Item Value Reference Range Interpretation [...] CA) 8.8 MG/DL 8.5-10.1 N GLUCOSE BEDSIDE [id number] 20:03:00 Test Item Value Reference Range Interpretation Comments GLUCOSE BEDSIDE TESTING (test code 124 mg/dL 70-110 H = GLUBED) CBC W/AUTO [id number] 08:57:00 Test Item Value Reference Range Interpretation [...] NT WITH AUTO DIFFERENTI AL. CBC W/AUTO [id number] 08:57:00 Test Item Value Reference Range Interpretation [...] CONSISTA NT WITH AUTO DIFFERENTI AL. RBC [id number] 08:57:00 Test Item Value Reference Range Interpretation Comments PLATELET ESTIMATE DECREASED THOUSAND ADEQUATE PLAT ELET COUNT (test code = REVIEWED AND PLTEST) VERIFIED. PLATELET MORPHOLOGY NORMAL (test code = PLTMORPH) CBC W/AUTO [id number] 08:57:00 Test Item Value Reference Range Interpretation [...] NT WITH AUTO DIFFERENTI AL. GLUCOSE BEDSIDE [id number] 07:43:00 Test Item Value Reference Range Interpretation Comments GLUCOSE BEDSIDE TESTING (test code = 97 mg/dL 70-110 N GLUBED) BASIC METABOLIC [id number] 07:02:00 Test Item Value Reference Range Interpretation [...] code = CA) 7.8 MG/DL 8.5-10.1 L [id number] 07:02:00 Test Item Value Reference Range Interpretation Comments MAGNESIUM (test code = MAG) 1.5 MG/DL 1.8-2.4 L CBC W/AUTO [id number] 06:50:00 Test Item Value Reference Range Interpretation [...] code = DIFF/SCN CRITERIA MDIFF) GLUCOSE BEDSIDE [id number] 20:58:00 Test Item Value Reference Range Interpretation Comments GLUCOSE BEDSIDE TESTING (test code = 90 mg/dL 70-110 N GLUBED) GLUCOSE BEDSIDE [id number] 18:52:00 Test Item Value Reference Range Interpretation Comments GLUCOSE BEDSIDE TESTING (test code = 92 mg/dL 70-110 N GLUBED) BASIC METABOLIC [id number] 17:20:00 Test Item Value Reference Range Interpretation [...] = CA) 9.2 MG/DL 8.5-10.1 N CORTISOL [id number] 15:12:00 Test Item Value Reference Range Interpretation Comments CORTISOL AM (test code 9.8 ug/dL 6.2-19.4 Perfo rmed At: HD = CORTAM) [facility] [id number] stacie Grossman MD Ph:[phone] GLUCOSE BEDSIDE [id number] 14:56:00 Test Item Value Reference Range Interpretation Comments GLUCOSE BEDSIDE TESTING (test code 100 mg/dL 70-110 N = GLUBED) THYROID STIMULATING [id number] 13:24:00 Test Item Value Reference Range Interpretation Comments THYROID STIMULATING HORMONE 6.680 mcIU/ML 0.340-4.820 H (test code = TSH) - CT ABD PELVIS [id number] 11:35:00 Name: SHANTEL LAURENT [facility] : 1945 Age/S: 74 / F [address] [facility] Unit #: [id number] Loc: [place] [address] Phys: Ursula Do MD Acct: [id number] Dis Date: Status: ADM IN PHONE #: [phone] Exam Date: 04/11/2020 1113 FAX #: Reason: abdominal pain EXAMS: CPT: [id number] CT ABD PELVIS W/CONT 01783 HISTORY: abdominal pain TECHNIQUE: Helical imaging of [...] 1 Signed Report (CONTINUED) Name: SHANTEL LAURENT [place] : 1945 Age/S: 74 / F [address] [facility] Unit #: [id number] Loc: [place] [address] Phys: Ursula Do MD Acct: [id number] Dis Date: Status: ADM IN PHONE #: [phone] Exam Date: 04/11/2020 1117 FAX #:Reason: abdominal pain EXAMS: CPT: [id number] CT ABD PELVIS W/CONT 55928 <Continued> No significant bone lesions. IMPRESSION: 1. [...] Zurdo Rondon MD; Ursula Do MD Technologist:Shahla Vaughn RT(R)(CT) CTDI: DLP: Trnscb Date/Time: 04/11/2020 (9755) [email or web address].NB16 Orig Print D/T: S: 04/11/2020 (7084) PAGE 2 Signed ReportGLUCOSE BEDSIDE [id number] 08:00:00 Test Item Value Reference Range Interpretation Comments GLUCOSE BEDSIDE TESTING (test code 152 mg/dL 70-110 H = GLUBED) CBC W/AUTO [id number] 06:43:00 Test Item Value Reference Range Interpretation [...] code NO DIFF/SCN CRITERIA = MDIFF) RBC [id number] 06:43:00 Test Item Value Reference Range Interpretation Comments PLATELET ESTIMATE (test SLIGHTLY DECREASED ADEQUATE code = PLTEST) THOUSAND PLATELET MORPHOLOGY NORMAL (test code = PLTMORPH) CBC W/AUTO [id number] 06:42:00 Test Item Value Reference Range Interpretation [...] NO DIFF/SCN CRITERIA = MDIFF) CBC W/AUTO [id number] 06:42:00 Test Item Value Reference Range Interpretation [...] NO DIFF/SCN CRITERIA = MDIFF) GLUCOSE BEDSIDE [id number] 06:33:00 Test Item Value Reference Range Interpretation Comments GLUCOSE BEDSIDE TESTING (test code 154 mg/dL 70-110 H = GLUBED) BASIC METABOLIC [id number] 06:18:00 Test Item Value Reference Range Interpretation [...] MG/DL 8.5-10.1 L - XR CHEST 1 [id number] 21:13:00 Name: SHANTEL LAURENT [place] : 1945 Age/S: 74 / F [address] [facility] Unit #: [id number] Loc: [place] [address] Phys: Ursula Do MD Acct: [id number] Dis Date: Status: ADM IN PHONE #: [phone] Exam Date: 04/10/20202106 FAX #: Reason: PICC LINE PLACEMENT EXAMS: CPT: [id number] XR CHEST 1 V 70630 Fluoro Time: DAP (Gy m2): Air Kerma [...] PAGE 1 Signed Report Name: SHANTEL LAURENT [place] : 1945 Age/S: 74 / F [address] [facility] Unit #: [id number] Loc: [place] [id number] Phys: Ursula Do MD Acct: [id number] Dis Date: Status: ADM IN PHONE #: [phone] Exam Date: 04/10/20202106 FAX #: Reason: PICC LINE PLACEMENT EXAMS: CPT: [id number] XR CHEST 1 V 58844 Fluoro Time: DAP (Gy m2): Air Kerma (mGy): <Continued> Technologist: Joelle So RT(R)(CT) Trnscb Date/Time: 04/10/2020 (2112) [email or web address].[email or web address] Orig Print D/T: S: 04/10/2020 (2115) PAGE 2 Signed ReportGLUCOSE BEDSIDE [id number] 20:19:00 Test Item Value Reference Range Interpretation Comments GLUCOSE BEDSIDE TESTING (test code = 76 mg/dL 70-110 N GLUBED) GLUCOSE BEDSIDE [id number] 16:22:00 Test Item Value Reference Range Interpretation Comments GLUCOSE BEDSIDE TESTING (test code = 82 mg/dL 70-110 N GLUBED) CBC W/AUTO [id number] 07:47:00 Test Item Value Reference Range Interpretation [...] NO DIFF/SCN CRITERIA = MDIFF) BASIC METABOLIC [id number] 06:50:00 Test Item Value Reference Range Interpretation [...] CA) 8.8 MG/DL 8.5-10.1 N GLUCOSE BEDSIDE [id number] 00:23:00 Test Item Value Reference Range Interpretation Comments GLUCOSE BEDSIDE TESTING (test code = 88 mg/dL 70-110 N GLUBED) GLUCOSE BEDSIDE [id number] 22:47:00 Test Item Value Reference Range Interpretation Comments GLUCOSE BEDSIDE TESTING (test code = 50 mg/dL 70-110 L GLUBED) GLUCOSE BEDSIDE [id number] 20:50:00 Test Item Value Reference Range Interpretation Comments GLUCOSE BEDSIDE TESTING (test code = 62 mg/dL 70-110 L GLUBED) BASIC METABOLIC [id number] 19:19:00 Test Item Value Reference Range Interpretation [...] CA) 9.5 MG/DL 8.5-10.1 N BASIC METABOLIC [id number] 15:26:00 Test Item Value Reference Range Interpretation [...] CA) 9.0 MG/DL 8.5-10.1 N GLUCOSE BEDSIDE [id number] 12:06:00 Test Item Value Reference Range Interpretation Comments GLUCOSE BEDSIDE TESTING (test code = 81 mg/dL 70-110 N GLUBED) GLUCOSE BEDSIDE [id number] 12:06:00 Test Item Value Reference Range Interpretation Comments GLUCOSE BEDSIDE TESTING (test code = 54 mg/dL 70-110 L GLUBED) GLUCOSE BEDSIDE [id number] 08:14:00 Test Item Value Reference Range Interpretation Comments GLUCOSE BEDSIDE TESTING (test code = 46 mg/dL 70-110 L GLUBED) GLUCOSE BEDSIDE [id number] 08:14:00 Test Item Value Reference Range Interpretation Comments GLUCOSE BEDSIDE TESTING (test code = 34 mg/dL 70-110 LL GLUBED) CBC W/AUTO [id number] 06:08:00 Test Item Value Reference Range Interpretation [...] code NO DIFF/SCN CRITERIA = MDIFF) RBC [id number] 06:08:00 Test Item Value Reference Range Interpretation Comments PLATELET ESTIMATE DECREASED ADEQUATE PLATELET C OUNT (test code = THOUSAND VERIFIED BY PLTEST) EXAMINATION OF PERIPHERAL BLOODSMEAR.MANU AL PLT ESTIMATE 92,000-115,000 PLATELET NORMAL MORPHOLOGY (test code = PLTMORPH) CBC W/AUTO [id number] 06:07:00 Test Item Value Reference Range Interpretation [...] NO DIFF/SCN CRITERIA = MDIFF) CBC W/AUTO [id number] 06:07:00 Test Item Value Reference Range Interpretation [...] NO DIFF/SCN CRITERIA = MDIFF) BASIC METABOLIC [id number] 06:06:00 Test Item Value Reference Range Interpretation [...] CA) 9.4 MG/DL 8.5-10.1 N CBC W/AUTO [id number] 05:48:00 Test Item Value Reference Range Interpretation [...] DIFF/SCN CRITERIA MDIFF) - MRI BRAIN W/O [id number] 19:59:00 FAX: Zurdo Perales MD [phone] Camps: St: ADM Name: SHANTEL LAURENT [facility] : 1945 Age/S: 74/F [address] [address] [place] Unit #: [id number] Loc: L.ICU0 [place] [address] Phys: Zurdo Rondon MD Acct: [id number] Dis Date: Status: ADM IN PHONE #: [phone] Exam Date: 04/08/2020 1282 FAX #: Reason: ISCHEMIC STROKE EXAMS: CPT: [id number] MRI BRAIN W/O CONTRAST 11426 LOCATION CODE H 31 MRI BRAIN WITHOUT [...] Signed Report (CONTINUED) FAX: Zurdo Perales MD [phone] Camps: PM St: ADM------- Name: SHANTEL LAURENT [facility] : 1945 Age/S: 74/F [address] [address] Unit #: [id number] Loc: L.ICU0 [place] [address] Phys:Zurdo Rondon MD Acct: [id number] Dis Date: Status: ADM IN PHONE #: [phone] Exam Date: 04/08/2020 1730 FAX #: Reason: ISCHEMIC STROKE EXAMS: CPT: [id number] MRI BRAIN W/O CONTRAST 54735 <Continued> at 1958 Reported and signed by: Karey Oconnor MD CC: Zurdo Rondon MD Technologist: RT Rajat(R)(MR) Transcribed Date/Time/By: 04/08/2020 (1958) :KingEFM1 Orig PrintD/T: S: 04/08/2020 (2001) PAGE 2 Signed Report- XR SHOULDER 2+V [id number] 16:42:00 Name: SHANTEL LAURENT [place] : 1945 Age/S: 74 / F [address] [address] [place] Unit #: [id number] Loc: [place] [address] Phys: Zurdo Rondon MD Acct: [id number] Dis Date: Status: ADM IN PHONE #: [phone] Exam Date: 04/08/2020 1630 FAX #: Reason: left shou lder pain EXAMS: CPT: [id number] XR SHOULDER 2+[place] [address] Fluoro Time: DAP (Gy m2): Air Kerma [...] MD PAGE1 Signed Report Name: SHANTEL LAURENT [place] : 1945 Age/S: 74 / F [address] [place] [address] Unit #: [id number] Loc: [place] [address] Phys: Zurdo Rondon MD Acct: [id number] Dis Date: Status: ADM IN PHONE #: [phone] Exam Date: 04/08/2020 1630 FAX #: Reason: left shoulder pain EXAMS: CPT: [id number] XR SHOULDER 2+[place] [address] Fluoro Time: DAP (Gy m2): Air Kerma (mGy): <Continued> Technologist: Kimmie Curtis RT(R)(CT) Trnscb Date/Time: 04/08/2020 (1642) Ansley.PXC Orig Print D/T: S: 04/08/2020 (0969) PAGE 2 Signed [id number] 06:02:00 Test Item Value Reference Range Interpretation [...] method. Completed by Nursing: [facility] METABOLIC [id number] 05:37:00 Test Item Value Reference Range Interpretation [...] Ratio 1.48-3.22 Avg L Comment: FASTING IN [id number] 05:37:00 Test Item Value Reference Range Interpretation Comments GLYCOSYLATED HEMOGLOBIN (HA1C) 5.0 % A1C 0.0-5.7 N (test code = GLYHGB) ESTIMATED AVERAGE GLUCOSE (test 97 MG/DLest code = EAG) CBC W/AUTO [id number] 05:23:00 Test Item Value Reference Range Interpretation [...] (test code NO DIFF/SCN CRITERIA = MDIFF) [id number] 21:26:00 Test Item Value Reference Range Interpretation [...] nella yby method. Completed by Nursing: NOVITAMIN [id number] 19:04:00 Test Item Value Reference Range Interpretation Comments VITAMIN B12 (test code = VITB12) 376 PG/ML 183-986 N FOLIC [id number] 19:04:00 Test Item Value Reference Range Interpretation Comments FOLIC ACID (test code = FOL) 6.20 NG/ML 3.10-17.50 N THYROID STIMULATING [id number] 19:04:00 Test Item Value Reference Range Interpretation Comments THYROID STIMULATING HORMONE 3.100 mcIU/ML 0.340-4.820 N (test code = TSH) CARBAMAZEPINE (TEGRETOL)2020-04-07 19:04:00 Test Item Value Reference Range Interpretation Comments CARBAMAZEPINE (TEGRETOL) (test < 0.5 mcG/ML 4.0-12.0 L code = CARB) VALPROIC ACID (DEPAKENE)2020-04-07 19:04:00 Test Item Value Reference Range Interpretation Comments VALPROIC ACID (DEPAKENE) (test 53.7 mcG/ML 50.0-100.0 N code = VALP) VITAMIN [id number] 18:35:00 Test Item Value Reference Range Interpretation Comments VITAMIN B12 (test code = VITB12) 376 PG/ML 183-986 N FOLIC [id number] 18:35:00 Test Item Value Reference Range Interpretation Comments FOLIC ACID (test code = FOL) 6.20 NG/ML 3.10-17.50 N THYROID STIMULATING [id number] 18:35:00 Test Item Value Reference Range Interpretation Comments THYROID STIMULATING HORMONE 3.100 mcIU/ML 0.340-4.820 N (test code = TSH) CARBAMAZEPINE (TEGRETOL)2020-04-07 18:35:00 Test Item Value Reference Range Interpretation Comments CARBAMAZEPINE (TEGRETOL) (test code = mcG/ML 4.0-12.0 CARB) VALPROIC ACID (DEPAKENE)2020-04-07 18:35:00 Test Item Value Reference Range Interpretation Comments VALPROIC ACID (DEPAKENE) (test code = mcG/ML 50.0-100.0 VALP) [id number] 18:17:00 Test Item Value Reference Range Interpretation [...] method. Completed by Nursing: NOCOVID 19 INHOUSE [id number] 16:14:00 Test Item Value Reference Range Interpretation Comments COVID 19 INHOUSE AG NEGATIVE Negative Per manu facturer, (test code = negative result s should BHKHP14UPIH) be treated aspr esumptive and, if inconsi [...] symptoms co nsistent with COVID-19. GLUCOSE BEDSIDE [id number] 16:06:00 Test Item Value Reference Range Interpretation Comments GLUCOSE BEDSIDE TESTING (test code = 79 mg/dL 70-110 N GLUBED) UA RFLX MICR CULT IF [id number] 15:35:00 Test Item Value Reference Range Interpretation [...] RiskForSepsis-no oth srcUA RFLX MICR CULT IF [id number] 15:28:00 Test Item Value Reference Range Interpretation [...] UACULT) Indication for culture: RiskForSepsis-no oth srcPROTHROMBIN [id number] 14:58:00 Test Item Value Reference Range Interpretation Comments PT PATIENT (test code = PTP) 11.2 SECONDS 9.3-12.9 N INTERNATIONAL NORMAL RATIO 0.99 INR Unit 0.8-1.2 N (test code = INR) THROMBOPLASTIN TIME [id number] 14:58:00 Test Item Value Reference Range Interpretation Comments THROMBOPLASTIN TIME PARTIAL 21.3 SECONDS 26-35 L (test code = PTT) BASIC METABOLIC [id number] 14:46:00 Test Item Value Reference Range Interpretation [...] 9.1 MG/DL 8.5-10.1 N Completed by Nursing: [id number]-[id number] 14:46:00 Test Item Value Reference Range Interpretation [...] method. Completed by Nursing: NO- CT ANGIO [id number] 14:46:00 Name: SHANTEL LAURENT : 1945 Age/S: 74 / F [address] [address] [place] Unit #: [id number] Loc: [place] [address] Phys: Jc Garcia MD Acct: [id number] Dis Date: Status: PRE ER PHONE #: [phone] Exam Date: 04/07/2020 1430 FAX #: Reason: ams, slurred speech EXAMS: CPT: [id number] CT ANGIO NECK [address] EXAM: - CTANGIO HEAD, - CT ANGIO [...] LAURENT : 1945 Age/S: 74 / F [address] [address] [place] Unit #: [id number] Loc: [place] [address] Phys: Jc Garcia MD Acct: [id number] Dis Date: Status: PRE ER PHONE #: [phone] Exam Date: 04/07/2020 1430FAX #: Reason: ams, slurred speech EXAMS: CPT: [id number] CT ANGIO NECK [address] <Continued> The RIGHT posterior cerebral artery, superior [...] (1446) KingKW9 Orig Print D/T: S: 04/07/2020 (3617) PAGE 2 Signed Report- CT ANGIO [id number] 14:46:00 Name: SHANTEL LAURENT : 1945 Age/S: 74 / F [address] [address] [place] Unit #: [id number] Loc: [place] [address] Phys: Jc Garcia MD Acct: [id number] Dis Date: Status: PRE ER PHONE #: [phone] Exam Date: 04/07/2020 1425 FAX #: Reason: ams, slurred speech EXAMS: CPT: [id number] CT ANGIO HEAD [address] EXAM: - CTANGIO HEAD, - CT ANGIO [...] LAURENT : 1945 Age/S: 74 / F [address] [address] [place] Unit #: [id number] Loc: [place] [address] Phys: Jc Garcia MD Acct: [id number] Dis Date: Status: PRE ER PHONE #: [phone] Exam Date: 04/07/2020 1425FAX #: Reason: ams, slurred speech EXAMS: CPT: [id number] CT ANGIO HEAD [address] <Continued> The RIGHT posterior cerebral artery, superior [...] Alina Marcum M.D. CC: Jc Miller Technologist:Kimmie Curtis RT(R)(CT) CTDI: DLP: Trnscb Date/Time: 04/07/2020 (3662) KingKW9 Orig Print D/T: S: 04/07/2020 (9475) PAGE 2 Signed Report- XR CHEST 1 [id number] 14:37:00 Name: SHANTEL LAURENT [place] : 1945 Age/S: 74 / F [address] [address] [place] Unit #: [id number] Loc: [place] [address] Phys: Jc Garcia MD Acct: [id number] Dis Date: Status: PRE ER PHONE #: [phone] Exam Date: 04/07/2020 1432 FAX #: Reason: Code Stroke EXAMS: CPT: [id number] XR CHEST 1 V 41715 Fluoro Time: DAP (Gy m2): Air Kerma [...] of pneumothorax.. Not fully included in the jnqax-pr-nnul, there appears to be cortical irregularity about the left humeral head, which may represent fracture; age indeterminate. An IVC filter is partially seen in the upper abdomen. IMPRESSION 1. Low lung volumes and bronchovascular crowding. Otherwise, No radiographic evidence of acute cardiopulmonary process. 2.Not fully included in the pmrer-jt-llka, there appears to be cortical irregularity about the left humeral head, which may represent fracture; age indeterminate. Correlate with point tenderness on physical exam. Additional dedicated radiographs of the left shoulder and/or humerus may be obtained if it is clinically warranted. at 1437 Reported and signed by: Alina Marcum M.D. CC: Jc Garcia MD PAGE 1 Signed Report Name: SHANTEL LAURENT [place] : 1945 Age/S: 74 / [id number] [place] Unit #: [id number] Loc: [place] [address] Phys: Jc Garcia MD Acct: [id number] Date: Status: PRE ER PHONE #: [phone] Exam Date: 04/07/2020 1432 FAX #: Reason: Code Stroke EXAMS: CPT: [id number] XR CHEST 1 V 59719 Fluoro Time: DAP (Gy m2): Air Kerma (mGy): <Continued> Technologist: Courtney Roland, RT(R) Trnscb Date/Time: 04/07/2020 (1437) [id number] Orig PrintD/T: S: 04/07/2020 (2870) PAGE 2 Signed ReportCBC W/O [id number] 14:23:00 Test Item Value Reference Range Interpretation [...] 7.0-10.5 N MPV) - CT HEAD/BRAIN W/O [id number] 14:23:00 Name: SHANTEL LAURENT [place] : 1945 Age/S: 74 / F [id number] [place] Unit #: [id number] Loc: [place] [address] Phys: Jc Garcia MD Acct: [id number] Dis Date: Status: PRE ER PHONE #: [phone] Exam Date: 04/07/20203 FAX #: Reason: Code Str shailesh EXAMS: CPT: [id number] CT HEAD/BRAIN W/O CONT 35296 EXAM: - CTHEAD/BRAIN W/O CONT HISTORY: Code [...] 1 Signed Report (CONTINUED) Name[facility] [place] : 1945 Age/S: 74 / F [id number] [place] Unit #: [id number] Loc: [place] [address] Phys: Jc Garcia MD Acct: [id number] Dis Date: Status: PRE ER PHONE #: [phone] Exam Date: 04/07/2020 1413 FAX #: Reason: Code Stroke EXAMS: CPT: [id number] CT HEAD/BRAIN W/O CONT 40014 <Continued> at 1423 Reported and signed by: Alina Marcum M.D. CC: Jc Garcia MD Technologist:Kimmie Curtis, RT(R)(CT) CTDI: DLP: Trnscb Date/Time: 04/07/2020 (1425) t.NOÉR.KW9/t.NOÉR.KW9 Orig Print D/T: S: 04/07/2020 (9665) PAGE 2 Signed ReportSARS-COV2/RT-PCR ([facility]) 2019-10-19 13:24:00 Test Item Value Reference Range Interpretation Comments SARS-COV2/RT-PCR (test Not Detected Not Detected, Negative code = 1174126) SARS-COV-2 PERFORMING LAB [facility] (test code = 9440641) Negative results do not preclude SARS-CoV-2 infection [...] of the Act.Fact Sheet for Healthcare Pro viders:https://www.[employer]/Documents/Xpert%20Xpress%20SARS%20CoV-2/Fact%20Sh eets/368-2732%81VCKF-LMC-0%20HEALTHCARE%20PROVIDERS%20FACT%20SHEET.pdfFact Sheet for Healthcare Patients:https://www.[employer]/Documents/Xpert%20Xpress%20SARS%20CoV-2/Fact%20Sheets/3023801%20SARS-COV -2%20PATIENT%20FACT%20SHEET.pdfPerforming Laboratory:[facility].[place], [place] [address]UHARKUPD ACID (DEPAKENE)2019-08-31 07:37:00 Test Item Value Reference Range Interpretation Comments VALPROIC ACID (DEPAKENE) (test 45.7 ug/mL 50.0-100.0 L code = VALP) HGBA1C - GLYCOSYLATED [id number] 14:38:00 Test Item Value Reference Range Interpretation Comments GLYCOSYLATED HEMOGLOBIN (HA1C) (test 4.7 % 4.0-6.0 N code = GLYHGB) URINALYSIS [id number] 13:31:00 Test Item Value Reference Range Interpretation [...] = BACU) 3+ /HPF NEGATIVE A URINALYSIS [id number] 13:20:00 Test Item Value Reference Range Interpretation [...] code = BACU) /HPF NEGATIVE BASIC METABOLIC [id number] 12:49:00 Test Item Value Reference Range Interpretation [...] 9.2 mg/dL 8.6-10.4 N CA) BASIC METABOLIC [id number] 12:43:00 Test Item Value Reference Range Interpretation [...] code = mg/dL 8.6-10.4 CA) CBC W/AUTO [id number] 12:02:00 Test Item Value Reference Range Interpretation [...] AVG 11.04~~~~~~~~~~ ~~~~~~~~ ~~~~~~~~~~~~~~~ ~~~~~~~~ ~~~~~~~~~~~~~~~ ~~~~Yudith onjessi Cholestero l Education (NCEP ) Guidelines:~~~~ ~~~~~~~~ ~~~~~~~~~~~~~~~ ~~~~~~~~ ~~~~~~~~~~~~~~~ ~~~~~~~~ ~~ HDL Cholesterol<4 0mg/dL: HDL Cholesterol (Major risk factor for CHD)>60mg/dL: H DL Cholesterol (Ne gative risk factor for CHD)40-59mg/dL: Borderline Risk LD L Cholesterol<1 00mg/dL: Desirable LDL-C [id number] 0-159mg/ dL: Borderline High Risk LDL-C [id number] 0-189mg/ dL: High risk L DL-C concentration H DL-LDL Cholesterol is affected by a number of factors suchas smoking, age and sex.~~~~~~~~~~~ ~~~~~~~~ ~~~~~~~~~~~~~~~ ~~~~~~~~ ~~~~~~~~~~~~~~~ ~~~ THYROID STIMULATING [id number] 12:09:00 Test Item Value Reference Range Interpretation Comments THYROID STIMULATING HORMONE (test 8.41 mIU/mL 0.38-5.60 H code = TSH)
--- NOTE | 2021-12-05 17:22 | RAD REPORT ---
EXAM DESCRIPTION: CT - Head Brain Wo Cont - 12/05/2021 5:16 pm CLINICAL HISTORY: Mental status change, unknown cause COMPARISON: Sinus Wo Cont dated 08/19/2021; Head Brain Wo Cont dated 08/16/2021 TECHNIQUE: All CT scans are performed using dose optimization technique as appropriate and may inclu de automated exposure control or mA/KV adjustment according to patient size. FINDINGS: No intracranial hemorrhage, hydrocephalus or extra-axial fluid collection.Mild generalized brain atrophy is present with mild periventricular and deep white matter chronic microvascular ische phil changes.No areas of brain edema or evidence of midline shift. Chronic right maxillary sinusitis. The calvarium is intact. IMPRESSION: No acute intracranial abnormality.
[2021-12-05] MEDS ORDERED: AMPICILLIN/SULBACTAM 3GM/VIAL ONE (17:31)
[2021-12-05] MEDS ORDERED: SILVER SULFADIAZINE 1% 25 GM TOP ONE (17:32)
[2021-12-05] MEDS ORDERED: NA CHLORIDE 0.9% 100 ML ONE (17:32)
[2021-12-05] MEDS ORDERED: LIDOCAINE VISCOUS 2% SOLN 15 ML UDC ONE (17:32)
--- NOTE | 2021-12-05 17:38 | RAD REPORT ---
EXAM DESCRIPTION: RAD - Chest Single View - 12/05/2021 5:26 pm CLINICAL HISTORY: COUGH Chest pain. COMPARISON: Chest Single View dated 08/16/2021; Chest Single View dated 05/16/2020; Chest Single View dated 02/20/2020; Chest Single View dated 10/18/2019 FINDINGS: Portable technique limits examination quality. The lungs are grossly clear. The heart is normal in size. No displaced fractures. IMPRESSION: No acute intrathoracic process suspected.
[2021-12-05 17:49] LABS: Urine Blood Trace-intact (Negative); Urine Glucose Negative (Negative); Urine Protein 2+ (Negative); Urine pH 5.5 (5.0-7.0)
[2021-12-05 18:00] LABS: Absolute Lymphocytes (CBC) 1.5 K/uL (0.7-4.9); Hematocrit 37.5 % (36.0-45.0); Lymphocytes % 18.7 % (15.3-44.8); MPV 9.9 fL (7.6-11.3); RBC Red Blood Cell Count 3.77 M/uL (3.86-4.86)
[2021-12-05] MEDS ORDERED: Meropenem 1000 MG/VIAL IV ONE (18:02)
[2021-12-05] MEDS ORDERED: NA CHLORIDE 0.9% 500 ML ONE (18:03)
[2021-12-05 18:43] LABS: Protime INR 1.13
[2021-12-05 19:02] LABS: Albumin 2.6 g/dL (3.4-5.0); Bilirubin Direct 0.1 mg/dL (0-0.2); Bilirubin Total 0.3 mg/dL (0.2-1.0); Magnesium 2.2 mg/dL (1.8-2.4); Potassium 4.1 mmol/L (3.5-5.1); Protein, Total 7.1 g/dL (6.4-8.2)
[2021-12-05 19:03] LABS: Troponin High Sensitivity 495.6 pg/mL (<58.9)
[2021-12-05 19:14] LABS: Valproic Acid (Depakene) Level 41.7 ug/mL (50-100)
--- NOTE | 2021-12-05 19:23 | EDPHYS ---
Physician Documentation [facility] Name: Macrina Mason Age: 76 yrs Sex: Female : 1945 Arrival Date: 12/05/2021 Time: 16:15 Bed 8 Private MD: GEORGE Physician Kameron Phipps HPI: 12/05 17:24 This 76 yrs old Female presents to ER via EMS with complaints of General joelle Weakness. 17:24 This 76 yrs old Female presents to ER via EMS with complaints of General joelle Weakness. 17:24 This 76 yrs old Female presents to ER via EMS with complaints of General joelle Weakness. 17:24 pt weak and altered, ems states at baseline, hx of pakinson disease. The patient joelle presents with trouble concentrating. Onset: The symptoms/episode began/occurred just prior to arrival. Possible causes: unknown. Associated signs and symptoms: The patient has no apparent associated signs or symptoms. Onset: The symptoms/episode began/occurred today. Patient's baseline: Neuro: alert but confused. Severity of symptoms: At their worst the symptoms were mild in the emergency department the symptoms have resolved. It is unknown whether or not the patient has had similar symptoms in the past. Historical: - Allergies: 16:17 PENICILLINS; bp 16:17 tramadol; bp - PMHx: 16:17 ADD/ADHD; allergies; Alzheimers; Back pain; Bipolar disorder; CHF; chronic kidney bp disease; convulsions; COPD; CVA; DVT; DYSPHAGIA; Hyperlipidemia; Parkinsons; Schizophrenia; TIA; UTI; - Immunization history:: Adult Immunizations up to date. - Social history:: Smoking status: Patient denies any tobacco usage or history of. - Family history:: not pertinent. ROS: 17:24 Constitutional: Negative for fever, chills, and weight loss, Eyes: Negative for injury, joelle pain, redness, and discharge, ENT: Negative for injury, pain, and discharge, Neck: Negative for injury, pain, and swelling, Cardiovascular: Negative for chest pain, palpitations, and edema, Respiratory: Negative for shortness of breath, cough, wheezing, and pleuritic chest pain, Abdomen/GI: Negative for abdominal pain, nausea, vomiting, diarrhea, and constipation, Back: Negative for injury and pain, : Negative for injury, bleeding, discharge, and swelling, MS/Extremity: Negative for injury and deformity, Psych: Negative for depression, anxiety, suicide ideation, homicidal ideation, and hallucinations, Allergy/Immunology: Negative for hives, rash, and allergies, Endocrine: Negative for neck swelling, polydipsia, polyuria, polyphagia, and marked weight changes. 17:24 Skin: Positive for pallor. 17:24 Neuro: Positive for weakness. Exam: 17:24 Constitutional: This is a well developed, well nourished patient who is awake, alert, joelle and in no acute distress. Head/Face: Normocephalic, atraumatic. Eyes: Pupils equal round and reactive to light, extra-ocular motions intact. Lids and lashes normal. Conjunctiva and sclera are non-icteric and not injected. Cornea within normal limits. Periorbital areas with no swelling, redness, or edema. ENT: Nares patent. No nasal discharge, no septal abnormalities noted. Tympanic membranes are normal and external auditory canals are clear. Oropharynx with no redness, swelling, or masses, exudates, or evidence of obstruction, uvula midline. Mucous membranes moist. Neck: Trachea midline, no thyromegaly or masses palpated, and no cervical lymphadenopathy. Supple, full range of motion without nuchal rigidity, or vertebral point tenderness. No Meningismus. Chest/axilla: Normal chest wall appearance and motion. Nontender with no deformity. No lesions are appreciated. Cardiovascular: Regular rate and rhythm with a normal S1 and S2. No gallops, murmurs, or rubs. Normal PMI, no JVD. No pulse deficits. Respiratory: Lungs have equal breath sounds bilaterally, clear to auscultation and percussion. No rales, rhonchi or wheezes noted. No increased work of breathing, no retractions or nasal flaring. Abdomen/GI: Soft, non-tender, with normal bowel sounds. No distension or tympany. No guarding or rebound. No evidence of tenderness throughout. Back: No spinal tenderness. No costovertebral tenderness. Full range of motion. Female : Normal external genitalia. MS/ Extremity: Pulses equal, no cyanosis. Neurovascular intact. Full, normal range of motion. Psych: Awake, alert, with orientation to person, place and time. Behavior, mood, and affect are within normal limits. 17:24 Skin: Appearance: Color: pale, Temperature: normal temperature, Moisture: normal moisture, petechiae, not noted, ecchymosis, not noted, flushing, not noted. 17:24 Neuro: Orientation: to person, place, situation, Not oriented to time, Mentation: slow to respond, Memory: immediate memory is intact, remote memory is impaired, recent memory is intact, Sensation: no obvious gross deficits, appropriate no acute changes, Gait: not tested. Deep tendon reflexes are 1 (trace) + in the bilateral brachioradialis, bicep, tricep and patellar and Achilles tendons, seizure activity, is not displayed by the patient. 18:09 ECG was reviewed by the Attending Physician. joelle Vital Signs: 16:15 BP 119 / 85; Pulse 87; Resp 17; Temp 97.9; Pulse Ox 97% ; bp 17:32 BP 124 / 63; Pulse 78; Resp 16; Pulse Ox 98% ; bp 18:41 BP 133 / 70; Pulse 77; Resp 16; Pulse Ox 99% ; bp 19:00 BP 127 / 59; Pulse 70; Resp 16; Pulse Ox 95% on R/A; jb4 20:00 BP 122 / 99; Pulse 77; Resp 18; Pulse Ox 96% on R/A; jb4 20:09 Weight 81.65 kg (R); jb4 MDM: 16:18 Patient medically screened. joelle 17:32 Differential Diagnosis altered mental status. Differential Diagnosis: CVA, electrolyte joelle abnormality, hypoglycemia, pneumonia, volume depletion. Data reviewed: vital signs, nurses notes, lab test result(s), EKG, radiologic studies, CT scan. 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 Test interpretation: by ED physician or midlevel provider: ECG, plain radiologic studies. Counseling: I had a detailed discussion with the patient and/or guardian regarding: the historical points, exam findings, and any diagnostic results supporting the discharge/admit diagnosis, lab results, radiology results. 12/05 16:55 Order name: Basic Metabolic Panel; Complete Time: 19:18 [facility] 12/05 16:55 Order name: CBC with Diff; Complete Time: 18:07 [facility] 12/05 16:55 Order name: LFT's; Complete Time: 19:18 [facility] 12/05 16:55 Order name: Magnesium; Complete Time: 19:18 [facility] 12/05 16:55 Order name: NT PRO-BNP; Complete Time: 19:18 [facility] 12/05 16:55 Order name: PT-INR; Complete Time: 18:48 [facility] 12/05 16:55 Order name: Troponin HS; Complete Time: 19:18 [facility] 12/05 16:55 Order name: XRAY Chest (1 view); Complete Time: 17:54 [facility] 12/05 16:55 Order name: Lipase; Complete Time: 19:18 [facility] 12/05 16:55 Order name: Depakote; Complete Time: 19:18 [facility] 12/05 17:00 Order name: CT Head Brain wo Cont; Complete Time: 17:54 [facility] 12/05 17:49 Order name: Urine Dipstick-Ancillary; Complete Time: 17:53 [facility] 12/05 17:51 Order name: Urine Culture [facility] 12/05 18:07 Order name: SARS-COV-2 RT PCR (Document "Date of Onset" if Symptomatic); Complete Time: [facility] 21:04 12/05 16:20 Order name: Wound Care; Complete Time: 16:45 [facility] 12/05 16:55 Order name: EKG; Complete Time: 16:56 [facility] 12/05 16:55 Order name: Cardiac monitoring; Complete Time: 18:05 [facility] 12/05 16:55 Order name: EKG - Nurse/Tech; Complete Time: 18:05 [facility] 12/05 16:55 Order name: IV Saline Lock; Complete Time: 17:33 [facility] 12/05 16:55 Order name: Labs collected and sent; Complete Time: 17:33 [facility] 12/05 16:55 Order name: O2 Per Protocol; Complete Time: 16:58 [facility] 12/05 16:55 Order name: O2 Sat Monitoring; Complete Time: 16:58 [facility] 12/05 19:18 Order name: CT Abd/Pelvis - Without Contrast [facility] 12/05 19:23 Order name: Abdomen ; Complete Time: 21:00 [facility] 12/05 16:55 Order name: Urine Dipstick-Ancillary (obtain specimen); Complete Time: 18:06 [facility] 12/05 18:05 Order name: Labs - recollect needed: recollect coag and chemistries/ hemolyzed; eb Complete Time: 18:33 EC:09 Rate is 77 beats/min. Rhythm is regular. QRS [place] is Normal. AR interval is normal. QRS joelle interval is normal. QT interval is normal. No Q waves. T waves are Normal. No ST changes noted. Clinical impression: NSR w/ Non-specific ST/T Changes, LVH, and No evidence of ischemia. Interpreted by me. Reviewed by me. Administered Medications: 17:20 Drug: NS 0.9% 500 ml Route: IV; Rate: bolus; Site: right forearm; bp 22:15 Follow up: Response: No adverse reaction; IV Status: Completed infusion; IV Intake: tw5 500ml 17:55 Drug: Meropenem 1 grams Route: IV; Rate: per protocol; Site: right forearm; bp 22:15 Follow up: IV Status: Completed infusion; IV Intake: 100ml tw5 19:23 CANCELLED (Duplicate Order): Lovenox (enoxaparin) 1 mg/kg Sub-Q once joelle 20:29 Drug: ProTONIX (pantoprazole) 40 mg Route: IVP; Site: right antecubital; jb4 22:15 Follow up: Response: No adverse reaction tw5 20:29 Drug: Lovenox (enoxaparin) 70 mg Route: Sub-Q; Site: left lower abdomen; jb4 22:15 Follow up: Response: No adverse reaction tw5 20:30 Drug: NS 0.9% 1000 ml Route: IV; Rate: 125 ml/hr; Site: right antecubital; jb4 22:15 Follow up: IV Status: Infusion continued upon admission tw5 Disposition Summary: 12/05/21 19:22 Hospitalization Ordered Hospitalization Status: Inpatient Admission joelle Provider: Kristina Garcia cha Condition: Fair joelle Problem: new joelle Symptoms: have improved joelle Bed/Room Type: Standard joelle Location: Intensive Care Unit(12/05/21 21:23) bb Room Assignment: 1-(12/05/21 21:23) bb Diagnosis - Dehydration joelle - Weakness joelle - Altered mental status, unspecified joelle - UTI/ Urinary tract infection, site not specified joelle - Parkinson's disease joelle - Abnormal levels of other serum enzymes - Troponin joelle Forms: - Medication Reconciliation Form joelle - SBAR form joelle Signatures: Dispatcher [employer] EDKameron Ventura MD MD cha Ballard, Brenda, RN RN Mars Navas RN RN jb4 Henrique Angel RN RN bp Botello, Elizabeth eb Brown Angela, PA PA sb3 Anabella Ling tw5 Corrections: (The following items were deleted from the chart) Lovenox (enoxaparin) 1 mg/kg Sub-Q once ordered. critical [facility] hospital : Telemetry/MedSurg (Inpatient) [facility] : [facility]
--- NOTE | 2021-12-05 19:23 | ER ---
Nurse's Notes [facility] Name: Macrina Mason Age: 76 yrs Sex: Female : 1945 Arrival Date: 12/05/2021 Time: 16:15 Bed 8 Private MD: Diagnosis: Dehydration;Weakness;Altered mental status, unspecified;UTI/ Urinary tract infection, site not specified;Parkinson's disease;Abnormal levels of other serum enzymes-Troponin Presentation: 12/05 16:15 Chief complaint: EMS states: WOUND CARE CALLED 911 STATING PT MORE ALTERED THAN USUAL, bp BUT PT IS AT BASELINE. Coronavirus screen: At this time, the client does not indicate any symptoms associated with coronavirus-19. Ebola Screen: No symptoms or risks identified at this time. Initial Sepsis Screen: Does the patient meet any 2 criteria? No. Patient's initial sepsis screen is negative. Does the patient have a suspected source of infection? No. Patient's initial sepsis screen is negative. Risk Assessment: Do you want to hurt yourself or someone else? Patient reports no desire to harm self or others. Onset of symptoms is unknown. Care prior to arrival: Glucose check: 157. 16:15 Method Of Arrival: EMS: [facility] bp 16:15 Acuity: [facility] 4 bp Triage Assessment: 16:17 General: Appears in no apparent distress. comfortable, Behavior is calm, cooperative. bp Pain: Denies pain. EENT: No deficits noted. Neuro: Level of Consciousness is alert, obeys commands, lethargic, Oriented to person, place, situation. Cardiovascular: Rhythm is sinus rhythm. Respiratory: No deficits noted. GI: No signs and/or symptoms were reported involving the gastrointestinal system. : No signs and/or symptoms were reported regarding the genitourinary system. Derm: No deficits noted. Musculoskeletal: No deficits noted. Historical: - Allergies: 16:17 PENICILLINS; bp 16:17 tramadol; bp - PMHx: 16:17 ADD/ADHD; allergies; Alzheimers; Back pain; Bipolar disorder; CHF; chronic kidney bp disease; convulsions; COPD; CVA; DVT; DYSPHAGIA; Hyperlipidemia; Parkinsons; Schizophrenia; TIA; UTI; - Immunization history:: Adult Immunizations up to date. - Social history:: Smoking status: Patient denies any tobacco usage or history of. - Family history:: not pertinent. Screenin:19 Abuse screen: Denies threats or abuse. Denies injuries from another. Nutritional bp screening: No deficits noted. Tuberculosis screening: No symptoms or risk factors identified. Fall Risk None identified. Assessment: 16:19 General: SEE TRIAGE NOTE. bp 17:31 Reassessment: No changes from previously documented assessment. Patient and/or family bp updated on plan of care and expected duration. Pain level reassessed. PT RETURNED FROM CT. 18:41 Reassessment: No changes from previously documented assessment. Patient and/or family bp updated on plan of care and expected duration. Pain level reassessed. LABS RESENT. 19:05 Reassessment: Patient and/or family updated on plan of care and expected duration. Pain jb4 level reassessed. Pt is alert and oriented x1. Respirations are even and unlabored with no s/s of pain or distress noted. Vital Signs: 16:15 BP 119 / 85; Pulse 87; Resp 17; Temp 97.9; Pulse Ox 97% ; bp 17:32 BP 124 / 63; Pulse 78; Resp 16; Pulse Ox 98% ; bp 18:41 BP 133 / 70; Pulse 77; Resp 16; Pulse Ox 99% ; bp 19:00 BP 127 / 59; Pulse 70; Resp 16; Pulse Ox 95% on R/A; jb4 20:00 BP 122 / 99; Pulse 77; Resp 18; Pulse Ox 96% on R/A; jb4 20:09 Weight 81.65 kg (R); jb4 ED Course: 16:15 Patient arrived in ED. eb 16:15 Henrique Angel, RN is Primary Nurse. bp 16:17 Triage completed. bp 16:17 Arm band placed on. bp 16:18 Kameron Phipps MD is Attending Physician. joelle 16:19 Patient has correct armband on for positive identification. Bed in low position. Call bp light in reach. Side rails up X2. 17:18 CT Head Brain wo Cont In Process Unspecified. EDMS 17:27 XRAY Chest (1 view) In Process Unspecified. EDMS 17:31 Inserted saline lock: 22 gauge in right forearm, using aseptic technique. Blood bp collected. 17:48 Urine collected: straight cath specimen, cloudy, Amount Returned: 200mL. tm3 17:58 EKG done, by ED staff. tm3 19:19 Kristina Garcia MD is Hospitalizing Provider. joelle 19:39 Abdomen In Process Unspecified. EDMS 22:14 No provider procedures requiring assistance completed. Patient admitted, IV remains in tw5 place. Administered Medications: 17:20 Drug: NS 0.9% 500 ml Route: IV; Rate: bolus; Site: right forearm; bp 22:15 Follow up: Response: No adverse reaction; IV Status: Completed infusion; IV Intake: tw5 500ml 17:55 Drug: Meropenem 1 grams Route: IV; Rate: per protocol; Site: right forearm; bp 22:15 Follow up: IV Status: Completed infusion; IV Intake: 100ml tw5 19:23 CANCELLED (Duplicate Order): Lovenox (enoxaparin) 1 mg/kg Sub-Q once joelle 20:29 Drug: ProTONIX (pantoprazole) 40 mg Route: IVP; Site: right antecubital; jb4 22:15 Follow up: Response: No adverse reaction tw5 20:29 Drug: Lovenox (enoxaparin) 70 mg Route: Sub-Q; Site: left lower abdomen; jb4 22:15 Follow up: Response: No adverse reaction tw5 20:30 Drug: NS 0.9% 1000 ml Route: IV; Rate: 125 ml/hr; Site: right antecubital; jb4 22:15 Follow up: IV Status: Infusion continued upon admission tw5 Medication: 17:31 VIS not applicable for this client. bp Intake: 22:15 IV: 100ml; Total: 100ml. tw5 22:15 IV: 500ml; Total: 600ml. tw5 Outcome: 19:22 Decision to Hospitalize by Provider. joelle 22:14 Admitted to ICU accompanied by nurse, via stretcher, room 1, Report called to report tw5 called to Catrina 22:14 Condition: stable 22:14 Instructed on the need for admit. 22:18 Patient left the ED. tw5 Signatures: Dispatcher [employer] EDMS Praveen Jung tm3 Kameron Phipps MD MD cha Bryson, James, RN RN jb4 Henrique Angel, [place] RN Lesly Valenzuela Tiffany tw5
--- NOTE | 2021-12-05 19:45 | RAD REPORT ---
EXAM DESCRIPTION: CT - Abdomen Pelvis Wo Contrast - 12/05/2021 7:37 pm CLINICAL HISTORY: Abdominal pain. stone COMPARISON: Stone Protocol dated 08/09/2019 TECHNIQUE: CT imaging of the abdomen and pelvis was performed without contrast. Solid organ, bowel a nd vascular assessment is limited due to lack of IV and oral contrast. All CT scans are performed using dose optimization technique as appropriate and may include automated exposure control or mA/KV adjustment according to patient size. FINDINGS: The lower lung serna are clear. The liver, spleen, pancreas, adrenal glands and right kidney are within normal limits for a limited n on-contrast examination.IVC filter is in place. Small calculi are seen in the left kidney. No bowel obstruction, free air, free fluid or abscess. The appendix is normal. Mild lumbosacral degenerative changes. IMPRESSION: Left-sided renal calculi are present without hydronephrosis. A limited non-contrast examination was performed as detailed.
[2021-12-05] MEDS ORDERED: PANTOPRAZOLE 40 MG INJ ONE (20:03)
[2021-12-05] MEDS ORDERED: NA CHLORIDE 0.9% 1,000 ML ONE (20:03)
[2021-12-05] MEDS ORDERED: ENOXAPARIN 80 MG/0.8 ML SQ ONE (20:28)
--- NOTE | 2021-12-05 21:52 | P.HP ---
Certification for Inpatient Patient admitted to: Inpatient With expected LOS: <2 Midnights Patient will require the following post-hospital care: None Practitioner: I am a practitioner with admitting privileges, knowledge of patient current condition, hospital course, and medical plan of care. Services: Services provided to patient in accordance with Admission requirements found in Title 42 Section 412.3 of the Code of Federal Regulations <Angela Weston - Last Filed: 12/06/21 02:25> Patient History Date of Service: 12/05/21 Reason for admission: AMS, Elevated Trop, UTI History of Present Illness: Patient is a 75-year-old female with PMH of HTN, dementia, CHF, CKD, COPD, CVA, and HLD who presented to the ED after wound care called 911 stating that she was acting more altered than usual. Patient appeared at her baseline mentation upon arrival (oriented x 2). History is limited as patient is demented and poor historian. Workup revealed troponin HS 495, BNP 1685, Cr 1.69, and urine positive for UTI. She was given 70 mg lovenox, 40 protonix, 1L, and meropenem. Patient presented to the ED with a very similar story, UTI/AMS/elevated troponin about 3 months ago. Cardiology then recommended conservative management since patient's mentation is poor and is not having chest pain. She had a stress test completed that revealed "limited study is submitted without mismatched gross perfusion defects seen." Will admit patient for further evaluation and treatment. Home medications list reviewed: Yes - Past Medical/Surgical History Diabetic: No -: Bipolar disorder -: Schizoaffective disorder -: COPD -: Chronic renal disease -: Hypertension -: Hypothyroidism -: Hyperlipidemia -: Dementia -: Complete hysterectomy -: sb knee replacement Psychosocial/ Personal History: Patient currently lives at SNF. - Family History Mother -: Heart disease, Lung disease Notes: COPD Father -: Heart disease, Diabetes Notes: quadruple bypass - Social History Smoking Status: Never smoker Alcohol use: No CD- Drugs: No Caffeine use: Yes Place of Residence: [place] <Angela Weston - Last Filed: 12/06/21 02:25> Date of Service: 12/05/21 <Kristina Garcia - Last Filed: 12/08/21 01:15> Allergies No Known Allergies Allergy (Unverified 10/22/19 09:42) Home Medications: Donepezil HCl 10 mg PO BID 10/18/19 Hydrocodone 5/APAP 325 [[place] 5/325*] 1 tab PO Q12HR PRN 10/18/19 Levothyroxine Sodium 25 mcg PO 0630 10/18/19 Memantine HCl 10 mg PO BID 10/18/19 Ondansetron [Ondansetron Odt] 4 mg PO Q12H PRN 10/18/19 Topiramate 100 mg PO BID 10/18/19 Ascorbic Acid [Vitamin C*] 500 mg PO Q12H #90 tablet 02/22/20 Calcitrol [Rocaltrol*] 0.5 mcg PO DAILY #30 cap 02/22/20 ARIPiprazole [Abilify*] 5 mg PO DAILY 08/19/21 Aspirin 81 mg PO DAILY 08/19/21 Atorvastatin Calcium [Lipitor*] 20 mg PO DAILY 08/19/21 Cyclobenzaprine [Flexeril*] 10 mg PO BID PRN 08/19/21 Docusate [Colace Cap*] 100 mg PO BID 08/19/21 Hydralazine [Apresoline*] 50 mg PO TID 08/19/21 Meloxicam [Mobic*] 7.5 mg PO DAILY 08/19/21 Pantoprazole [Protonix Tab*] 40 mg PO DAILY 08/19/21 Propranolol [Inderal*] 40 mg PO DAILY 08/19/21 Trazodone [Desyrel*] 50 mg PO BEDTIME 08/19/21 Divalproex Sodium [Depakote Sprinkle] 250 mg PO BID 12/06/21 Duloxetine HCl [Drizalma Sprinkle] 60 mg PO ONCE 12/06/21 Review of Systems is unable to be obtained <Angela Weston - Last Filed: 12/06/21 02:25> Physical Examination - Physical Exam General: Alert, In no apparent distress, Oriented x2 HEENT: Atraumatic, PERRLA, EOMI, Sclerae nonicteric Neck: Supple, 2+ carotid pulse no bruit, No LAD, Without JVD or thyroid abnormality Respiratory: Clear to auscultation bilaterally, Normal air movement Cardiovascular: Regular rate/rhythm, Normal S1 S2 Gastrointestinal: Normal bowel sounds, No tenderness Musculoskeletal: No tenderness Integumentary: No rashes Neurological: Normal speech, Normal strength at 5/5 x4 extr, Normal tone, Normal affect - Studies Laboratory Data (last 24 hrs) 12/05/21 18:30: PT 12.5, INR 1.13 12/05/21 18:30: Sodium 141, Potassium 4.1, BUN 68 H, Creatinine 1.69 H, Glucose 100, Magnesium 2.2, Total Bilirubin 0.3, AST 26, ALT 12, Alkaline Phosphatase 106, Lipase 180 12/05/21 17:30: WBC 8.0, Hgb 12.2, Hct 37.5, Plt Count 168 <Angela Weston - Last Filed: 12/06/21 02:25> Assessment and Plan - Problems (Diagnosis) (1) Elevated troponin Current Visit: Yes Status: Acute (2) UTI (urinary tract infection) Current Visit: Yes Status: Acute Qualifiers: Urinary tract infection type: acute cystitis Hematuria presence: without hematuria Qualified Code(s): N30.00 - Acute cystitis without hematuria (3) AMBAR (acute kidney injury) Current Visit: Yes Status: Acute (4) CKD (chronic kidney disease) stage 3, GFR 30-59 ml/min Current Visit: Yes Status: Chronic Qualifiers: Chronic kidney disease stage 3 subtype: stage 3b (GFR 30-44) Qualified Code(s): N18.32 - Chronic kidney disease, stage 3b (5) COPD (chronic obstructive pulmonary disease) Current Visit: Yes Status: Chronic Qualifiers: COPD type: unspecified COPD Qualified Code(s): J44.9 - Chronic obstructive pulmonary disease, unspecified (6) Dementia Current Visit: Yes Status: Chronic Qualifiers: Dementia type: unspecified type Dementia behavioral disturbance: without behavioral disturbance Qualified Code(s): F03.90 - Unspecified dementia without behavioral disturbance (7) Hypothyroidism Current Visit: Yes Status: Chronic Qualifiers: Hypothyroidism type: unspecified Qualified Code(s): E03.9 - Hypothyroidism, unspecified - Plan -Patient was admitted to ICU per ED recommendation but I think patient is stable enough for medsurg. Consider downgrading. -Patient is not having chest pain and EKG WNL. Trop has been elevated on prior admissions. -Cardiology has previously recommended conservative management. Consulted. Trend troponin and check serial cardiac enzymes. -Monitor on telemetry -Last urine culture grew ecoli, owens sensitive. Will start patient on rocephin -Gentle IV hydration -Reconcile and continue home medications -Lovenox for VTE ppx -Full Code Discharge Plan: Home Plan to discharge in: Greater than 2 days - Advance Directives Does patient have a Living Will: No Does patient have a Durable POA for Healthcare: No - Code Status/Comfort Care Code Status Assessed: Yes (Full) Critical Care: No Time Spent Managing Pts Care (In Minutes): 70 <Angela Weston - Last Filed: 12/06/21 02:25> Date of Service: 12/05/21 Subjective: HPI as mentioned above Physical Examination: Vitals: Afebrile vital signs are stable Physical exam: Cardiovascular: Within normal limits. Lungs: Within normal limits Abdomen: Within normal limits Neuro: Awake, alert, oriented to person place and time Assessment: 1. Acute kidney injury 2. Elevated troponin Plan: 1. Continue with current plan of care as mentioned above <Kristina Garcia - Last Filed: 12/08/21 01:15>
[2021-12-05 22:57] VITALS: BMI 33.2
[2021-12-05] MEDS: NA CHLORIDE 0.9% 1,000 ML IV SCH (23:05)
[2021-12-05] MEDS ORDERED: ONDANSETRON 4 MG/2 ML VIAL IV PRN (23:05)
[2021-12-06 04:36] LABS: CKMB Creatine Kinase MB 5.8 ng/mL (1.0-3.6)
[2021-12-06 05:18] LABS: Absolute Lymphocytes (CBC) 1.1 K/uL (0.7-4.9); Hematocrit 32.7 % (36.0-45.0); Lymphocytes % 17.1 % (15.3-44.8); MPV 9.2 fL (7.6-11.3)
[2021-12-06 05:31] LABS: Urine Appearance Clear (Clear); Urine Bilirubin Negative (Negative); Urine Blood Negative (Negative); Urine Color Yellow (Yellow); Urine Glucose Negative (Negative); Urine Protein 1+ (Negative); Urine Urobilinogen 0.2 mg/dL (0.2-1.0); Urine pH 5.5 (5.0-7.0)
[2021-12-06 05:31] LABS: Albumin 2.3 g/dL (3.4-5.0); Bilirubin Total 0.3 mg/dL (0.2-1.0); Potassium 3.8 mmol/L (3.5-5.1); Protein, Total 6.2 g/dL (6.4-8.2); Thyroid Stimulating Hormone 1.88 uIU/mL (0.360-3.740)
[2021-12-06 05:32] LABS: Urine Microscopic Reflex ORDER UMIC
[2021-12-06 05:50] LABS: Calcium Oxalate Crystals- Ur MANY (NONE SEEN); Urine Bacteria >50 /HPF (<20); Urine Mucus 1+ /HPF (NONE SEEN); Urine RBC <5 /HPF (NONE SEEN)
[2021-12-06] MEDS: CEFTRIAXONE 1,000 MG in NA CHLORIDE 0.9% 50 ML IVPB SCH (08:33)
[2021-12-06] MEDS ORDERED: Meropenem 1,000 MG in NA CHLORIDE 0.9% 100 ML IV SCH (09:00)
[2021-12-06] MEDS: NA CHLORIDE 0.9% 1,000 ML IV SCH ×2 (11:46→23:35)
--- NOTE | 2021-12-06 17:24 | CON ---
Date of Consultation: 12/06/2021 Reason For Consultation: Elevated troponin. History Of Present Illness: A -hcia-ofw female with history of dementia, hypertension, CHF , CKD, COPD, CVA, hyperlipidemia, presented after altered mental status, found to have urinary tract infection. Troponin was checked and was elevated. The patient is not a very good historian, but she declines having chest pain. Past Medical History: As outlined above in HPI. Medications: Refer to reconciliation sheet for detailed list. Allergies: NO KNOWN DRUG ALLERGIES. Family History: No premature coronary artery disease or cancer. Social History: Does not smoke or drink. Does not use any drugs. Review of Systems: All systems reviewed and they were negative except for what mentioned in HPI. Physical Examination: Vital Signs: Reviewed. Head and Neck: Pupils are equal, reactive to light. Intact eye movements. No JVD. No cervical lym phadenopathy. Neck: Supple. Thyroid is not enlarged. Lungs: Clear to auscultation bilaterally. No rhonchi, rales, or crackles. No accessory muscle use. Heart: Regular. No extra sounds. Abdomen: Soft, nontender. Bowel sounds positive. No organomegaly. No masses or hernia. No rigidi ty or rebound. Extremities: No clubbing or cyanosis. Intact pulses. Skin: No rash noted. Neurologic: Alert, awake, oriented x3. No acute focal deficits appreciated. Lymph Nodes: No cervical or axillary lymphadenopathy. Investigations: Troponin 495 down to 381. Assessment And Recommendations: Elevated troponin. The patient at any hospitalization she gets elev ated troponin suggestive of demand ischemia; however, underlying significant coronary artery disease needs to be evaluated. I recommend a coronary angiogram on her if it was not done in time recently a nd we will discuss this option with family further in the next 24 hours and make a further plan. Otnaveen hutchinson, obtain echocardiogram more feasible and I will follow the patient with you. Thank you for the consult. /MIGUEL ÁNGEL Voice ID: [id number] Report ID: [id number]
[2021-12-06] MEDS: ENOXAPARIN 100 MG/ML SYR SQ SCH (20:40)
[2021-12-07] MEDS: ACETAMINOPHEN 500 MG TAB PO PRN ×3 (07:35→20:12)
[2021-12-07] MEDS: CEFTRIAXONE 1,000 MG in NA CHLORIDE 0.9% 50 ML IVPB SCH (07:36)
[2021-12-07 08:40] LABS: Absolute Lymphocytes (CBC) 0.8 K/uL (0.7-4.9); Lymphocytes % 21.4 % (15.3-44.8); MPV 8.8 fL (7.6-11.3); RBC Red Blood Cell Count 2.81 M/uL (3.86-4.86)
[2021-12-07 09:09] LABS: AST/SGOT 19 U/L (15-37); Albumin 1.8 g/dL (3.4-5.0); Alkaline Phosphatase 78 U/L (45-117); BUN Blood Urea Nitrogen 43 mg/dL (7-18); Bicarbonate 23 mmol/L (21-32); Bilirubin Total 0.2 mg/dL (0.2-1.0); Glomerular Filtration Rate 60 ml/min (=/>90); Glucose Level 81 mg/dL (74-106); Potassium 3.2 mmol/L (3.5-5.1); Protein, Total 5.9 g/dL (6.4-8.2); Sodium Level 149 mmol/L (136-145)
[2021-12-07 09:19] LABS: ALT/SGPT < 10 U/L (12-78)
[2021-12-07] MEDS: NA CHLORIDE 0.9% 1,000 ML IV SCH ×2 (13:20→15:05)
--- NOTE | 2021-12-07 14:55 | PN ---
Date of Progress Note: 12/07/2021 Subjective: Seen by bedside, doing clinically well. No further chest pain. Review of Systems: No chest pain, shortness of breath, orthopnea, cough. No nausea, vomiting, diarrhea. No dysuria, po lyuria, or urinary urgency. No skin rash. All other systems reviewed and they are negative. Physical Examination: Vital Signs: Reviewed. Head and Neck: Pupils are equal, reactive to light. Intact eye movements. No JVD. No cervical lym phadenopathy. Neck is supple. Thyroid is not enlarged. Lungs: Clear to auscultation bilaterally. No rhonchi, rales, or crackles. No accessory muscle use. Heart: Regular rate and rhythm. No extra sounds. Abdomen: Soft, nontender. Bowel sounds positive. No organomegaly. No masses or hernia. No rigidi ty or rebound. Extremities: No clubbing or cyanosis. Intact pulses. Skin: No rash. Neurologic: Alert, awake, oriented x3. No acute focal deficits appreciated. Investigations: Her last troponin was 384. Creatinine 0.99. Assessment And Recommendations: Non-ST elevation myocardial infarction with elevated troponin. Keep n.p.o. past midnight. We will plan for coronary angiogram tomorrow morning. Please start the patie nt on baby aspirin 81 mg daily and continue Lovenox therapeutic dosing. Last dose to be this evening and to hold it after that for coronary angiogram tomorrow. SR/MODL Voice ID: [id number] Report ID: [id number]
[2021-12-07] MEDS: ENOXAPARIN 100 MG/ML SYR SQ SCH (20:11)
--- NOTE | 2021-12-08 01:18 | P.PN ---
Subjective Date of Service: 12/06/21 Subjective: Improving, Working w/ PT Review of Systems 10-point ROS is otherwise unremarkable Physical Examination - Vital Signs Temperature: 96.8 F Blood Pressure: 109/60 Pulse: 59 Respirations: 19 Pulse Ox (%): 97 - Physical Exam General: Alert, In no apparent distress, Oriented x3 HEENT: Atraumatic, PERRLA, EOMI Neck: Supple, JVD not distended Respiratory: Clear to auscultation bilaterally, Normal air movement Cardiovascular: Regular rate/rhythm, Normal S1 S2 Gastrointestinal: Normal bowel sounds, No tenderness Musculoskeletal: No tenderness Integumentary: No rashes Neurological: Normal speech, Normal tone, Normal affect Lymphatics: No axilla or inguinal lymphadenopathy - Studies Medications List Reviewed: Yes Assessment & Plan - Problems (Diagnosis) (1) Elevated troponin Current Visit: Yes Status: Acute (2) NSTEMI (non-ST elevated myocardial infarction) Current Visit: Yes Status: Acute (3) UTI (urinary tract infection) Current Visit: Yes Status: Acute Qualifiers: Urinary tract infection type: acute cystitis Hematuria presence: without hematuria Qualified Code(s): N30.00 - Acute cystitis without hematuria (4) CKD (chronic kidney disease) stage 3, GFR 30-59 ml/min Current Visit: Yes Status: Chronic Qualifiers: Chronic kidney disease stage 3 subtype: stage 3b (GFR 30-44) Qualified Code(s): N18.32 - Chronic kidney disease, stage 3b (5) COPD (chronic obstructive pulmonary disease) Current Visit: Yes Status: Chronic Qualifiers: COPD type: unspecified COPD Qualified Code(s): J44.9 - Chronic obstructive pulmonary disease, unspecified (6) Dementia Current Visit: Yes Status: Chronic Qualifiers: Dementia type: unspecified type Dementia behavioral disturbance: without behavioral disturbance Qualified Code(s): F03.90 - Unspecified dementia without behavioral disturbance (7) Hypothyroidism Current Visit: Yes Status: Chronic Qualifiers: Hypothyroidism type: unspecified Qualified Code(s): E03.9 - Hypothyroidism, unspecified - Plan Plan: 1. Continue antibiotics 2. Physical therapy evaluation 3. Cardiology consultation; possible cardiac cath on Wednesday morning 4. Out of bed and ambulate 5. Continue Steele catheter; may remove in a.m. 6. Continue with strict blood pressure and blood sugar control 7. GI DVT prophylaxis Discharge Plan: Home Plan to discharge in: Greater than 2 days - Advance Directives Does patient have a Living Will: No Does patient have a Durable POA for Healthcare: No - Code Status/Comfort Care Code Status Assessed: Yes Code Status: Full Code Critical Care: No Time Spent Managing PTS Care (In Minutes): 35
--- NOTE | 2021-12-08 01:19 | P.PN ---
Date of Service: 12/07/21 Subjective Patient is doing well with no new complaints Review of Systems 10-point ROS is otherwise unremarkable Physical Examination - Vital Signs Reviewed - Physical Exam General: Alert, In no apparent distress, Oriented x3 Respiratory: Clear to auscultation bilaterally, Normal air movement Cardiovascular: Regular rate/rhythm, Normal S1 S2 Gastrointestinal: Normal bowel sounds, No tenderness Neurological: Normal speech, Normal tone, Normal affect Assessment & Plan - Problems (Diagnosis) (1) Elevated troponin Current Visit: Yes Status: Acute (2) NSTEMI (non-ST elevated myocardial infarction) Current Visit: Yes Status: Acute (3) UTI (urinary tract infection) Current Visit: Yes Status: Acute Qualifiers: Urinary tract infection type: acute cystitis Hematuria presence: without hematuria Qualified Code(s): N30.00 - Acute cystitis without hematuria (4) CKD (chronic kidney disease) stage 3, GFR 30-59 ml/min Current Visit: Yes Status: Chronic Qualifiers: Chronic kidney disease stage 3 subtype: stage 3b (GFR 30-44) Qualified Code(s): N18.32 - Chronic kidney disease, stage 3b (5) COPD (chronic obstructive pulmonary disease) Current Visit: Yes Status: Chronic Qualifiers: COPD type: unspecified COPD Qualified Code(s): J44.9 - Chronic obstructive pulmonary disease, unspecified (6) Dementia Current Visit: Yes Status: Chronic Qualifiers: Dementia type: unspecified type Dementia behavioral disturbance: without behavioral disturbance Qualified Code(s): F03.90 - Unspecified dementia without behavioral disturbance (7) Hypothyroidism Current Visit: Yes Status: Chronic Qualifiers: Hypothyroidism type: unspecified Qualified Code(s): E03.9 - Hypothyroidism, unspecified - Plan Continue with plan of care as mentioned below: 1. Continue antibiotics 2. Physical therapy evaluation 3. Cardiology consultation; possible cardiac cath on Wednesday morning 4. Out of bed and ambulate 5. Continue Steele catheter; may remove in a.m. 6. Continue with strict blood pressure and blood sugar control 7. GI DVT prophylaxis Discharge Plan: Home Plan to discharge in: Greater than 2 days - Advance Directives Does patient have a Living Will: No Does patient have a Durable POA for Healthcare: No - Code Status/Comfort Care Code Status Assessed: Yes Code Status: Full Code Critical Care: No Time Spent Managing PTS Care (In Minutes): 35
[2021-12-08] MEDS: D5W 1,000 ML IV SCH ×2 (01:37→15:20)
[2021-12-08 03:56] LABS: Absolute Lymphocytes (CBC) 1.4 K/uL (0.7-4.9); Hematocrit 24.9 % (36.0-45.0); MPV 8.8 fL (7.6-11.3)
[2021-12-08 04:09] LABS: Albumin 1.9 g/dL (3.4-5.0); Bilirubin Total 0.2 mg/dL (0.2-1.0); Potassium 3.2 mmol/L (3.5-5.1); Protein, Total 5.2 g/dL (6.4-8.2)
[2021-12-08] MEDS ORDERED: NA CHLORIDE 0.9% 500 ML ONE (07:27)
[2021-12-08] MEDS: CEFTRIAXONE 1,000 MG in NA CHLORIDE 0.9% 50 ML IVPB SCH (08:39)
[2021-12-08] MEDS ORDERED: MIDAZOLAM HCL 2 MG/2 ML INJ ONE (08:44)
[2021-12-08] MEDS ORDERED: FENTANYL CITR 100 MCG/2 ML ONE (08:44)
[2021-12-08] MEDS ORDERED: ATROPINE SULF 1 MG/10 ML SYR IV ONE (08:44)
[2021-12-08] MEDS ORDERED: NITROGLYCERIN 100 MCG/ML SYR (for cath lab use only) IV ONE (08:45)
[2021-12-08] MEDS ORDERED: NA CHLORIDE 0.9% 0 ML ONE (08:45)
[2021-12-08 10:26] VITALS: O2SAT 100
--- NOTE | 2021-12-08 12:29 | P.DS ---
Admission Date: 12/05/21 Discharge Date: 12/08/21 Disposition: ROUTINE DISCHARGE Discharge Condition: GOOD Reason for Admission: AMS, Elevated Trop, UTI Brief History of Present Illness: Patient is a 75-year-old female with PMH of HTN, dementia, CHF, CKD, COPD, CVA, and HLD who presented to the ED after wound care called 911 stating that she was acting more altered than usual. Patient appeared at her baseline mentation upon arrival (oriented x 2). History is limited as patient is demented and poor historian. Workup revealed troponin HS 495, BNP 1685, Cr 1.69, and urine positive for UTI. She was given 70 mg lovenox, 40 protonix, 1L, and meropenem. Patient presented to the ED with a very similar story, UTI/AMS/elevated troponin about 3 months ago. Cardiology then recommended conservative management since patient's mentation is poor and is not having chest pain. She had a stress test completed that revealed "limited study is submitted without mismatched gross perfusion defects seen." Will admit patient for further evaluation and treatment. Hospital Course: She was started on ACS protocol and also was worked up and treated for possible UTI. her UA was significantly nonconcerning however she had left heart cath today. Cardiology evaluated patient and saw no significant lesion on cardiac cath. She will continue with medical management and outpatient follow-up with fuels sales representative on outpt as scheduled. Vital Signs/Physical Exam: Temp Pulse Resp BP Pulse Ox 96.8 F 56 16 139/98 H 95 12/08/21 10:12 12/08/21 10:12 12/08/21 10:12 12/08/21 10:12 12/08/21 04:00 General: Alert, Oriented x3, Cachectic HEENT: Normocephalic Neck: Supple Respiratory: Normal air movement Cardiovascular: Regular rate/rhythm, Normal S1 S2 Gastrointestinal: Soft and benign Musculoskeletal: No swelling Neurological: Normal speech, Normal strength at 5/5 x4 extr Laboratory Data at Discharge: WBC 3.9 K/uL (4.3-10.9) L 12/08/21 03:09 Hgb 8.7 g/dL (12.0-15.0) L 12/08/21 03:09 Hct 24.9 % (36.0-45.0) L 12/08/21 03:09 Plt Count 119 K/uL (152-406) L 12/08/21 03:09 PT 12.5 SECONDS (9.5-12.5) 12/05/21 18:30 INR 1.13 12/05/21 18:30 Sodium 143 mmol/L (136-145) 12/08/21 03:09 Potassium 3.2 mmol/L (3.5-5.1) L 12/08/21 03:09 BUN 30 mg/dL (7-18) H 12/08/21 03:09 Creatinine 0.77 mg/dL (0.55-1.3) 12/08/21 03:09 Glucose 97 mg/dL (74-106) 12/08/21 03:09 Magnesium 2.0 mg/dL (1.8-2.4) 12/06/21 04:52 Total Bilirubin 0.2 mg/dL (0.2-1.0) 12/08/21 03:09 AST 28 U/L (15-37) 12/08/21 03:09 ALT 16 U/L (12-78) 12/08/21 03:09 Alkaline Phosphatase 80 U/L (45-117) 12/08/21 03:09 Triglycerides 87 mg/dL (<150) 12/06/21 04:52 Cholesterol 118 mg/dL (<200) 12/06/21 04:52 HDL Cholesterol 52 mg/dL (40-60) 12/06/21 04:52 Cholesterol/HDL Ratio 2.27 12/06/21 04:52 Lipase 180 U/L (73-393) 12/05/21 18:30 Home Medications: Donepezil HCl 10 mg PO BID 10/18/19 Hydrocodone 5/APAP 325 [[place] 5/325*] 1 tab PO Q12HR PRN 10/18/19 Levothyroxine Sodium 25 mcg PO 0630 10/18/19 Memantine HCl 10 mg PO BID 10/18/19 Ondansetron [Ondansetron Odt] 4 mg PO Q12H PRN 10/18/19 Topiramate 100 mg PO BID 10/18/19 Ascorbic Acid [Vitamin C*] 500 mg PO Q12H #90 tablet 02/22/20 Calcitrol [Rocaltrol*] 0.5 mcg PO DAILY #30 cap 02/22/20 ARIPiprazole [Abilify*] 5 mg PO DAILY 08/19/21 Aspirin 81 mg PO DAILY 08/19/21 Atorvastatin Calcium [Lipitor*] 20 mg PO DAILY 08/19/21 Cyclobenzaprine [Flexeril*] 10 mg PO BID PRN 08/19/21 Docusate [Colace Cap*] 100 mg PO BID 08/19/21 Hydralazine [Apresoline*] 50 mg PO TID 08/19/21 Meloxicam [Mobic*] 7.5 mg PO DAILY 08/19/21 Pantoprazole [Protonix Tab*] 40 mg PO DAILY 08/19/21 Propranolol [Inderal*] 40 mg PO DAILY 08/19/21 Trazodone [Desyrel*] 50 mg PO BEDTIME 08/19/21 Divalproex Sodium [Depakote Sprinkle] 250 mg PO BID 12/06/21 Duloxetine HCl [Drizalma Sprinkle] 60 mg PO ONCE 12/06/21 Diet: Regular Followup: Deedee Lyle MD [Primary Care Provider] -
--- NOTE | 2021-12-08 13:10 | OP ---
Surgeon: Cuba Sotelo MD Fish Cutting Machine Operator: Ms. Hanh Costello. Admitted to Dr. Garcia on 12/05/2021. She was seen by Dr. Najera for non-STEMI and scheduled for a hea rt catheterization today 12/08/2021 as an inpatient. Procedure In Detail: She was brought to the cardiac cath lab manager, prepped and draped in routine sterile fashion. Given Versed and fentanyl for sedation. She underwent left heart catheterization and common femora l artery angiogram. A 6-Kinyarwanda sheath was introduced in the right common femoral artery successfully using the Seldinger technique and 10 cc of Xylocaine. Angiography there was normal. Angio-Seal was used to close the case. Celina catheter left and right were used to do the diagnostic catheterizat ion. She was right dominant. Her blood vessels were extremely tortuous on the left system, circumfl ex and LAD, especially distally, but there were no focal stenoses, no atherosclerosis, no plaquing. The patient tolerated the procedure well. There were no complications. Blood loss was 5 cc. Total conscious sedation was 30 minutes. Postoperative Diagnoses: Elevated troponin, normal common femoral artery angiogram, normal heart cat heterization. Plan: Plan for medical therapy. Can go home today after 2 hours of bedrest. Follow up in 2 weeks. SU/MIGUEL ÁNGEL Voice ID: [id number] Report ID: [id number]
--- NOTE | 2021-12-08 13:25 | EKG ---
Test Date: 2021-12-05 Test Time: 17:53:18 Narcotics And/Or Vice Detective: TM MEASUREMENT RESULTS: Intervals: Rate: 77 CT: 174 QRSD: 114 QT: 416 QTc: 470 [place]: P: 5 CT: 174 QRS: -61 T: 82 INTERPRETIVE STATEMENTS: Normal sinus rhythm Left anterior fascicular block Minimal voltage criteria for LVH, may be normal variant Abnormal ECG Compared to ECG 08/16/2021 10:41:13 Left ventricular hypertrophy now present Electronically Signed On 12-08-21 13:22:44 CDT by Westley Najera
[2021-12-08 20:07] VITALS: BP 138/63; TEMP 97.6
[2021-12-08] MEDS: ENOXAPARIN 100 MG/ML SYR SQ SCH (22:08)
== END 2021-12-08 22:00 | DRG 280 ==
LOC: ER 16:13 → ERHOLD 21:44 → 3RD-ICU 22:13 → 4TH 12-06 14:00
PROVIDERS: ADMIT Hospitalist; ATTEND Hospitalist
PROC: B2011ZZ Plain Radiography of Multiple Coronary Arteries using Low Osmolar Contrast (ICD-10-PCS; principal; 2021-12-08)
DX: I21.4 Non-ST elevation (NSTEMI) myocardial infarction (principal); G92.8 Other toxic encephalopathy; N30.00 Acute cystitis without hematuria; I13.0 Hypertensive heart and chronic kidney disease with heart failure and stage 1 through stage 4 chronic kidney disease, or unspecified chronic kidney disease; N18.32 Chronic kidney disease, stage 3b; I50.9 Heart failure, unspecified; E03.9 Hypothyroidism, unspecified; J44.9 Chronic obstructive pulmonary disease, unspecified; F03.90 Unspecified dementia, unspecified severity, without behavioral disturbance, psychotic disturbance, mood disturbance, and anxiety; E78.5 Hyperlipidemia, unspecified; Z86.73 Personal history of transient ischemic attack (TIA), and cerebral infarction without residual deficits; Z20.822 Contact with and (suspected) exposure to COVID-19; Z96.653 Presence of artificial knee joint, bilateral
CPT/HCPCS: 36415; 70450; 71045; 74176; 80048; 80053; 80061; 80076; 80164; 81003; 81015; 82550; 82553; 82947; 83690; 83735; 83880; 84443; 84484; 85025; 85610; 87077; 87086; 87088; 87186; 93005; 93454; 96361; 96365; 96366; 96372; 96375; 99285; C1760; C1893; C9113; G0269; J0295; J0583; J1650; J2185; J2250; J3010; J7030; J7040; Q9966; U0003

== ENCOUNTER 2022-02-14 08:49 | Inpatient (IN) | payer OTHER, BC ==
--- OUTSIDE RECORDS SUMMARY | 2022-02-14 08:58 | XMS REPORT | Continuity of Care Document ---
:1945 Author Organization [facility] t Address [address] [place] [address] Care Team Providers Name Role Phone Racquel CesarRadhaRafael Primary Care Physician Nina Alegre Attending Clinician Unavailable MARGY BETANCOURT NATASHA Attending Clinician Unavailable [id number] Attending Clinician Unavailable Shay Douglas Attending Clinician Unavailable Krishna Slaughter MD Attending Clinician Doctor Unassigned, [place] Attending Clinician Unavailable Devika Lindquist Attending Clinician Unavailable Nel Canela Attending Clinician Unavailable Nicole Sorensen Attending Clinician Unavailable DEVIKA LINDQUIST Attending Clinician Unavailable Emelia Solano Attending Clinician Unavailable Zurdo Rondon Attending Clinician Unavailable MARGY BETANCOURT NATASHA Admitting Clinician Unavailable [id number] Admitting Clinician Unavailable Shay Douglas Admitting Clinician Unavailable Physician, No Primary or Family Admitting Clinician Unavaila Nicole Horan Admitting Clinician Unavailable KNOW, DOES_NOT Admitting Clinician Unavailable DEVIKA TOBIAS Admitting Clinician Unavailable Payers Payer Name Policy Type Policy Number Effective Date Expiration Date Nomi CALLE [id number] Problems Condition Condition Condition Status Onset Resolution Last Treating Co mments Source Name Details Category Date Date Treatment Clinician Date UTI UTI Disease Active 2015-07 Univers (urinary (urinary 1-23 ity of tract tract 00:00: [place] infection) infection) 00 Me dical Branch Knee joint Knee joint Disease Active 2015-07 U nivers replacemen replacemen 0-13 it y of t status t status 00:00: [place] [address] Medical Branch Morbid Morbid Disease Active 2015-07 Univers obesity obesity 0-12 ity of 00:00: [place] [address] Medical Branch Pain Pain Disease Active 2015-07 Univers 0-12 ity of 00:00: [place] [address] Medical Branch History of History of Disease Active U nivers DVT (deep DVT (deep ity of vein vein [place] thrombosis thrombosis Me dical ) ) Branch Hypertensi Hypertensi Disease Active U nivers on on ity of [facility] Anemia Anemia Disease Active Univers ity of [facility] Arthritis Arthritis Disease Active Uni [facility] Chronic Chronic Disease Active Univers kidney kidney ity of disease disease [facility] Allergies, Adverse Reactions, Alerts Allergy Allergy Status Severity Reaction(s) Onset Inactive Treating Comm ents Source Name Type Date Date Clinician No Known DA Active U 2020-1 [facility]ie [facility]-04 Clear s 00:00: [place] 00 [facility] No Known DA Active U 2020-1 [facility] Allergie 0-04 Clear s 00:00: [place] 00 [facility] No Known DA Active U 2020-0 [facility] Allergie 2-20 [place] [facility] [place] No Known DA Active U 2020-0 [facility] Allergie 2-20 [place] 00:[facility]: [facility] 00 [place] Social History Social Habit Start Date Stop Date Quantity Comments Source Exposure to 2021-11-03 2021-11-13 Not sure [facility] SARS-CoV-2 00:00:00 08:18:00 [facility] (event) Branch Alcohol intake 2021-11-13 2021-11-13 Current University of 00:00:00 00:00:00 non-drinker of [facility] alcohol Branch (finding) Tobacco Comment 2014-11-08 2014-11-08 denies smoking Unive rsity of 00:00:00 00:00:00 [facility] Sex Ass[birth year] At [birth year] Universit y of 00:00:00 00:00:00 [facility] Smoking Status Start Date Stop Date Source Never smoker [facility] Medications Ordered Filled Start Stop Current Ordering Indication Dosage Frequency Signature Comments Components Source Medication Medication Date Date Medication? Clinician (SIG) Name Name Cipro Cipro 2020- No Na Alegre 1 tablet Com mon 03-17 Spirit 00:00: 00:00 - [facility] 00 :00 [facility] Santyl Santyl 2020- No Na Alegre 1 Commo n 01-07 applicatio Spirit 00:00: 00:00 n nickel - [facility]I 00 :00 thickness [facility] Zofran Zofran 2019- Yes Na Alegre 1 tablet Co mmon 2-14 Spirit 00:00: - CHI [facility] Comp Air Comp Air 2019- Yes Na Alegre as Co mmon Compressor Compressor 2-13 directed Spirit Nebulizer Nebulizer 00:00: - C HI 00 [facility] Levothyroxi Levothyroxi 2018- Yes Na Alegre 1 tablet Common ne Sodium ne Sodium 0-24 in the Spi rit 00:00: morning on - CHI 00 an empty stomach [facility] Imitrex Imitrex 2019-0 Yes Na Alegre 1 tablet Common 9-30 as needed Spirit 00:00: - CHI [facility] Flonase Flonase 2019-0 Yes Na Alegre 1 spray in Common 6-06 each Spirit 00:00: nostril - CHI [facility] Claritin Claritin 2019-0 Yes Na Alegre 1 tablet Common 6 Spirit 00:00: - [facility]I 00 [facility] FOLIC 2015- Yes 1{tbl} Take 1 Univers [...] 180 mg 08 daily. Medical tablet Branch lactulose 2015-07 Yes 15mL Take 15 mL [...] fluticasone 2015-07 Yes 2{spray Use 2 Un nnea 50 1-30 } Sprays in ity of [...] Medical Branch triamcinolo 2015-07 Yes Apply to Un nena ne 1-30 area(s) 2 ity of acetonide [...] Medical Branch triamcinolo 2015-07 Yes Apply to Un nena ne 1-30 area(s) 2 ity of acetonide [...] 00 needed for Medical Constipati Branch on. Divalproex Divalproex Yes Na Alegre 3 tablets Common Sodium Sodium [facility] Lisinopril Lisinopril Yes Na Alegre 1 tablet Common [facility] Carvedilol Carvedilol Yes Na Alegre 1 tablet Common [facility] Simethicone Simethicone Yes Na Alegre [address] [facility] meals and - CHI at bedtime as needed [facility] Furosemide Furosemide Yes Na Alegre TAKE [address] [facility] MOUTH - CHI EVERY DAY [facility] Duloxetine Duloxetine Yes Na Alegre 1 capsule Common HCl HCl [facility] Benadryl Benadryl Yes Na Alegre 1 tablet Common Allergy Allergy as needed Spir it [facility] Metoprolol Metoprolol Yes Na Alegre TAKE 1 Common Succinate Succinate TABLET BY [facility] ER ER MOUTH - CHI TWICE St DAILY AT [facility] 6AM AND Medical 6PM Center Topiramate Topiramate Yes Na Alegre TAKE [address] [facility] MOUTH - CHI TWICE St DAILY [facility] Ipratropium Ipratropium Yes Na Alegre 3 ml Common -Albuterol -Albuterol Spi [facility] Calcium Calcium Yes Na Alegre 1 tab Commo n [facility] Carbamazepi Carbamazepi Yes Na Alegre 1 tablet Common ne ne [facility] BuPROPion BuPROPion Yes Na Alegre 1 tablet Common HCl ER (XL) HCl ER (XL) in [facility] Gabapentin Gabapentin Yes Na Alegre 1 tablet Common [facility] Levothyroxi Levothyroxi Yes Na Alegre 1 tablet Common ne Sodium ne Sodium on an Spir it empty - CHI stomach in [facility] Atorvastati Atorvastati Yes Na Alegre 1 tablet Common n Calcium n Calcium Spiri [facility] Diclofenac Diclofenac Yes Na Alegre 1 tablet Common Sodium Sodium with food [facility] or milk [facility] Donepezil Donepezil Yes Na Alegre 1 tablet Common HCl HCl at bedtime [facility] Protonix Protonix Yes Na Alegre 1 tablet Common [facility] Ondansetron Ondansetron Yes Na Alegre 1 tablet Common HCl HCl [facility] Oxybutynin Oxybutynin Yes Na Alegre 1 tablet Common Chloride ER [facility] Folic Yes Na Alegre 1 tablet Common Acid-Vit Acid-Vit [facility] B6-Vit B12 B6-Vit B12 - [facility] Memantine Memantine Yes Na Alegre 1 tablet Common HCl HCl [facility] Trazodone Trazodone Yes Na Alegre not Co mmon HCl HCl defined [facility] Imodium A-D Imodium A-D Yes Na Alegre 1 tablet Common as needed [facility] Melatonin Melatonin Yes Na Alegre 1 tablet Common at bedtime [facility] as needed - [facility] with food [facility] Vitamin D Vitamin D Yes Na Alegre 1 tablet Common [facility] Zantac Zantac Yes Na Alegre 1 tablet Comm on at bedtime [facility] Vital Signs Vital Name Observation Time Observation Value Comments Source Body height 2021-11-13 13:24:00 [facility]3 [facility] Body weight 2021-11-13 13:24:00 97.977 [facility] BMI 2021-11-13 13:24:00 30.13 kg/m2 [facility] Procedures Procedure Date / Time Performed Performing Clinician Sour e PHYSICIAN ORDERS 2021-11-13 05:01:00 Doctor Unassigned, No Unive [facility] [id number] 2021-02-15 00:00:00 ENCPL [id number] 2021-02-15 00:00:00 ENCPL [id number] 2021-02-15 00:00:00 ENCPL [id number] 2021-02-15 00:00:00 ENCPL [id number] 2021-02-15 00:00:00 ENCPL [id number] 2021-02-15 00:00:00 ENCPL [id number] 2020-04-22 00:00:00 ENCPL [id number] 2020-04-22 00:00:00 ENCPL [id number] 2020-04-22 00:00:00 ENCPL [id number] 2020-04-22 00:00:00 ENCPL [id number] 2020-04-22 00:00:00 ENCPL [id number] 2020-04-22 00:00:00 ENCPL [id number] 2020-04-22 00:00:00 ENCPL [id number] 2020-04-22 00:00:00 ENCPL [id number] 2020-04-22 00:00:00 ENCPL [id number] 2020-04-22 00:00:00 ENCPL [id number] 2020-04-22 00:00:00 ENCPL [id number] 2020-04-22 00:00:00 ENCPL [id number] 2020-04-22 00:00:00 ENCPL [id number] 2020-04-22 00:00:00 ENCPL [id number] 2020-04-19 00:00:00 ENCPL [id number] 2020-04-19 00:00:00 ENCPL [id number] 2020-04-19 00:00:00 ENCPL [id number] 2020-04-19 00:00:00 ENCPL [id number] 2020-04-19 00:00:00 ENCPL [id number] 2020-04-19 00:00:00 ENCPL [id number] 2020-04-19 00:00:00 ENCPL [id number] 2020-04-19 00:00:00 ENCPL [id number] 2020-04-19 00:00:00 ENCPL [id number] 2020-04-19 00:00:00 ENCPL [id number] 2020-04-19 00:00:00 ENCPL [id number] 2020-04-19 00:00:00 ENCPL [id number] 2020-04-19 00:00:00 ENCPL [id number] 2020-04-19 00:00:00 ENCPL [id number] 2020-04-19 00:00:00 ENCPL [id number] 2020-04-10 00:00:00 BOKSY.01 [facility] [id number] 2020-04-07 00:00:00 CORAN.03 [facility] [id number] 2020-04-07 00:00:00 CORAN.03 [facility] Encounters Start End Encounter Admission Attending Care Care Encounter Source Date/Time Date/Time Type Type Clinicians Facility Department ID 2021-11-10 Outpatient Alegre, Na STLMLC STLMLC [id number] Common 08:48:02 [facility] 2021-11-04 Outpatient Alegre, Na STLMLC STLMLC [id number] 2 Common 15:10:00 [facility] 2021-11-03 Outpatient Alegre, Na STLMLC STLMLC [id number] 2 Common 09:18:01 [facility] 2021-08-28 Outpatient 3 SERAFIN, ENCPL CVA ENCPL 08:35:14 MARGY 0224 2021-07-31 Outpatient 3 [id number] ENCPL REF ENCPL 12:37:26 0802 2021-07-31 Outpatient 3 [id number] ENCPL REF [id number] ENCPL 11:03:22 1124 2021-07-31 Outpatient 3 [id number] ENCPL REF [id number] ENCPL 10:46:27 1012 2021-07-31 Outpatient 3 [id number] ENCPL REF [id number] ENCPL 10:45:42 1009 2021-07-31 Outpatient 3 [id number] ENCPL REF [id number] ENCPL 10:42:01 0930 2021-07-31 Outpatient 3 [id number] ENCPL REF [id number] ENCPL 10:41:35 0929 2021-07-30 Outpatient Alegre, Na STLMLC STLMLC [id number] 2 Common 14:29:39 [facility] 2021-07-30 Outpatient Alegre, Na STLMLC STLMLC [id number] 2 Common 14:29:06 [facility] 2021-07-30 Outpatient Alegre, Na STLMLC STLMLC [id number] 2 Common 13:55:23 [id number] [facility] 2021-07-30 Outpatient Alegre, Na STLMLC STLMLC [id number] 2 Common 13:54:44 [id number] [facility] 2021-07-30 Outpatient Alegre, Na STLMLC STLMLC [id number] 2 Common 13:52:28 71731 [facility] 2021-07-30 Outpatient Alegre, Na STLMLC STLMLC [id number] 2 Common 13:24:20 71383 [facility] 2021-07-30 Outpatient Alegre, Na STLMLC STLMLC [id number] 2 Common 13:20:59 [id number] [facility] 2021-07-30 Outpatient Laegre, Na STLMLC STLMLC [id number] 2 Common 13:20:20 60599 [facility] 2021-07-30 Outpatient Alegre, Na STLMLC STLMLC [id number] 2 Common 13:19:53 80467 [facility] 2021-07-30 Outpatient Alegre, Na STLMLC STLMLC [id number] 2 Common 13:02:26 25690 [facility] 2021-07-30 Outpatient Alegre, Na STLMLC STLMLC [id number] 2 Common 13:01:57 04413 [facility] 2021-07-30 Outpatient Alegre, Na STLMLC STLMLC [id number] 2 Common 12:52:27 52024 [facility] 2021-07-30 Outpatient Alegre, Na STLMLC STLMLC [id number] 2 Common 12:14:12 57949 [facility] 2021-07-30 Outpatient Alegre, Na STLMLC STLMLC [id number] 2 Common 12:00:44 59954 [facility] 2021-07-30 Outpatient Alegre, Na STLMLC STLMLC [id number] 2 Common 11:58:07 [id number] [facility] 2021-07-30 Outpatient Alegre, Na STLMLC STLMLC [id number] 2 Common 11:57:28 97438 [facility] 2021-07-30 Outpatient Alegre, Na STLMLC STLMLC [id number] 2 Common 11:48:36 53798 [facility] 2021-07-30 Outpatient Alegre, Na STLMLC STLMLC [id number] 2 Common 11:48:10 10897 [facility] 2021-07-30 Outpatient Alegre, Na STLMLC STLMLC [id number] 2 Common 11:28:48 74427 [facility] 2021-07-30 Outpatient Alegre, Na STLMLC STLMLC [id number] 2 Common 11:28:22 19386 [facility] 2020-04-07 Inpatient HCAPM CARRILLO [id number] [facility] 13:56:00 93680 [facility] 2019-08-24 Inpatient EM Misael Shay HCATB ELIZABETH [id number] [facility] 18:16:00 [id number] [facility] [place] 2021-12-24 2021-12-24 ambulatory STLMLC STLMLC [id number] Common 00:00:00 00:00:00 [facility] 2021-12-24 2021-12-24 ambulatory STLMLC STLMLC [id number] Common 00:00:00 00:00:00 [facility] 2021-12-22 2021-12-22 ambulatory STLMLC STLMLC [id number] Common 00:00:00 00:00:00 [facility] 2021-12-09 2021-12-09 ambulatory STLMLC STLMLC [id number] Common 00:00:00 00:00:00 [facility] 2021-11-13 2021-11-13 Office NEHAL Slaughter [id number] Univers 08:30:00 08:56:54 Visit [facility] [id number] it y of EMILIANO [id number] Daniel as SUAL?BLEA [id number] [address] MEDICAL OFFICE BUILDING 2021-11-13 2021-11-13 Orders Doctor GENOVEVA [id number] Univers 00:00:00 00:00:00 Only Unassigned, SHONDA [id number] ity of [place] [facility] [id number] Daniel as [phone] [address] 2021-10-27 2021-10-27 ambulatory STLMLC STLMLC [id number] Common 00:00:00 00:00:00 [facility] 2021-10-23 2021-10-23 ambulatory STLMLC STLMLC [id number] Common 00:00:00 00:00:00 [facility] 2021-09-12 2021-09-12 ambulatory STLMLC STLMLC [id number] Common 00:00:00 00:00:00 [facility] 2021-09-11 2021-09-11 ambulatory STLMLC STLMLC [id number] Common 00:00:00 00:00:00 [facility] 2021-08-30 2021-09-10 Inpatient 3 SERAFIN, ENCPL OTH [id number] ENCPL 15:16:00 11:00:00 MARGY Geovanny6 2021-07-28 2021-07-28 ambulatory STLMLC STLMLC [id number] Common 00:00:00 00:00:00 [facility] 2021-06-12 2021-06-12 ambulatory STLMLC STLMLC [id number] Common 00:00:00 00:00:00 [facility] 2021-05-22 2021-05-22 ambulatory STLMLC STLMLC [id number] Common 00:00:00 00:00:00 [facility] 2021-05-19 2021-05-19 ambulatory STLMLC STLMLC [id number] Common 00:00:00 00:00:00 [facility] 2021-04-04 2021-04-04 Outpatient STLMLC STLMLC [id number] Common 00:00:00 00:00:00 [facility] 2021-03-26 2021-03-26 Outpatient STLMLC STLMLC [id number] Common 00:00:00 00:00:00 [facility] 2021-03-12 2021-03-12 Outpatient STLMLC STLMLC [id number] Common 00:00:00 00:00:00 [facility] 2021-02-14 2021-02-14 Outpatient Ameena, HCAPM LABO [id number] [facility] 14:44:00 14:44:00 Devika [id number] [facility] 2021-02-14 2021-02-14 Outpatient Ameena, HCAPM LABO [id number] [facility] 14:44:00 14:44:00 Devika [id number] [facility] 2021-02-13 2021-02-13 Outpatient Canela, HCAPM RADI [id number] [facility] 16:14:00 16:14:00 Nel [id number] [facility] 2021-02-13 2021-02-13 Outpatient Ameena, HCAPM LABO [id number] [facility] 13:32:00 13:32:00 Devika [id number] [facility] 2021-02-13 2021-02-13 Outpatient Ameena, HCAPM LABO [id number] [facility] 13:32:00 13:32:00 Devika [id number] [facility] 2021-02-12 2021-02-12 Outpatient Ameena, HCACL LABO [id number] 04-20 [facility] 19:12:00 19:12:00 Devika [id number] [facility] 2021-02-12 2021-02-12 Outpatient Ameena, HCAPM LABO [id number] [facility] 11:17:00 11:17:00 Devika [id number] [facility] 2021-02-12 2021-02-12 Outpatient Ameena, HCAPM LABO [id number] [facility] 11:17:00 11:17:00 Devika [id number] [facility] 2021-02-11 2021-02-11 Outpatient Nicole Sorensen HCAPM RADI [id number] [facility] 22:28:00 22:28:00 [id number] [facility] 2021-02-05 2021-02-05 Outpatient Nicole Sorensen HCAPM RADI [id number] [facility] 13:47:00 13:47:00 [id number] [facility] 2021-02-04 2021-02-04 Outpatient STLMLC STLMLC [id number] Common 00:00:00 00:00:00 [facility] 2021-01-08 2021-01-08 Outpatient STLMLC STLMLC [id number] Common 00:00:00 00:00:00 [facility] 2021-01-01 2021-01-01 Outpatient STLMLC STLMLC [id number] Common 00:00:00 00:00:00 [facility] 2020-12-18 2020-12-18 Outpatient STLMLC STLMLC [id number] Common 00:00:00 00:00:00 [facility] 2020-10-15 2020-10-15 Outpatient STLMLC STLMLC [id number] Common 00:00:00 00:00:00 [facility] 2020-07-12 2020-07-12 Outpatient STLMLC STLMLC [id number] Common 00:00:00 00:00:00 [facility] 2020-06-11 2020-06-11 Outpatient AMEENA, HCAPM LABO [id number] [facility] 19:25:00 19:25:00 DEVIKA [id number] [facility] 2020-06-11 2020-06-11 Outpatient AMEENA, HCAPM LABO [id number] [facility] 19:25:00 19:25:00 DEVIKA [id number] [facility] 2020-06-10 2020-06-10 Outpatient AMEENA, HCAPM LABO [id number] [facility] 10:43:00 10:43:00 DEVIKA [id number] [facility] 2020-06-10 2020-06-10 Outpatient AMEENA, HCAPM LABO [id number] [facility] 10:43:00 10:43:00 DEVIKA [id number] [facility] 2020-06-09 2020-06-09 Outpatient AMEENA, HCAPM LABO [id number] [facility] 13:58:00 13:58:00 DEVIKA [facility] 2020-05-16 2020-05-16 Orders Doctor TOMAS [id number] 00:00:00 00:00:00 Only Unassigned, [id number] [facility] [id number] 2020-05-11 2020-05-11 Outpatient STLMLC STLMLC [id number] Common 00:00:00 00:00:00 [facility] 2020-05-09 2020-05-09 Outpatient STLMLC STLMLC [id number] Common 00:00:00 00:00:00 [facility] 2020-05-06 2020-05-06 Outpatient STLMLC STLMLC [id number] Common 00:00:00 00:00:00 [facility] 2020-04-26 2020-04-26 Outpatient AMEENA, HCAPM LABO [id number] [facility] 07:57:00 07:57:00 DEVIKA [id number] [facility] 2020-04-22 2020-04-22 Outpatient SERAFIN, HCAPM LABO [id number] [facility] 07:07:00 07:07:00 MARGY [id number] [facility] 2020-04-20 2020-04-20 Outpatient Ajtye, HCAPM LABO [id number] [facility] 16:40:00 16:40:00 Emelia [id number] [facility] 2020-04-20 2020-04-20 Outpatient Ajala, HCAPM LABO [id number] [facility] 16:40:00 16:40:00 Emelia [id number] [facility] 2020-04-19 2020-04-19 Outpatient Ajala, HCAPM LABO [id number] [facility] 12:15:00 12:15:00 Emelia [id number] [facility] 2020-04-08 2020-04-08 Outpatient Nela, HCACL LABO [id number] [facility] 00:10:00 00:10:00 Zurdo 15051 [facility] 2020-03-28 2020-03-28 Outpatient STLMLC STLMLC [id number] Common 00:00:00 00:00:00 [facility] 2020-03-17 2020-03-17 [facility] [id number] Common 15:04:00 15:04:[address] [facility] 2020-03-08 2020-03-08 Out[facility] [id number] Common 16:56:00 16:56:[address] [facility] 2020-02-09 2020-02-09 [facility] [id number] Common 16:59:00 16:59:[address] [facility] 2020-02-05 2020-02-05 [facility] [id number] Common 17:16:00 17:16:[address] [facility] 2020-01-23 2020-01-23 [facility] [id number] Common 10:32:00 10:32:[address] [facility] 2020-01-15 2020-01-15 [facility] [id number] Common 09:59:00 09:59:[address] [facility] 2020-01-10 2020-01-10 [facility] [id number] Common 14:25:00 14:25:[address] [facility] 2020-01-08 2020-01-08 [facility] [id number] Common 14:20:00 14:20:[address] [facility] 2020-01-07 2020-01-07 [facility] [id number] Common 19:54:00 19:54:[address] [facility] 2020-01-04 2020-01-04 [facility] [id number] Common 13:37:00 13:37:[address] [facility] 2019-09-13 2019-09-13 [facility] [id number] Common 09:14:00 09:14:[address] [facility] 2019-07-01 2019-07-01 [facility] [id number] Common 15:38:00 15:38:[address] [facility] 2019-06-27 2019-06-27 [facility] [id number] Common 10:00:00 10:00:[address] [facility] 2019-06-21 2019-06-21 [facility] [id number] Common 14:45:00 14:45:[address] [facility] 2019-06-16 2019-06-16 [facility] [id number] Common 15:42:00 15:42:[address] [facility] 2019-06-14 2019-06-14 [facility] [id number] Common 10:40:00 10:40:[address] [facility] 2019-06-06 2019-06-06 [facility] [id number] Common 11:00:00 11:00:[address] [facility] 2019-06-05 2019-06-05 [facility] [id number] Common 16:47:00 16:47:[address] [facility] 2019-05-12 2019-05-12 Out[facility] [id number] Common 15:40:00 15:40:[address] [facility] 2019-04-27 2019-04-27 [facility] [id number] Common 16:10:00 16:10:[address] [facility] 2019-04-27 2019-04-27 [facility] [id number] Common 11:20:00 11:20:[address] [facility] 2019-04-03 2019-04-03 [facility] [id number] Common 12:04:00 12:04:[address] [facility] 2019-03-28 2019-03-28 [facility] [id number] Common 13:40:00 13:40:[address] [facility] [facility] 2019-03-21 2019-03-21 [facility] 27 [id number] Common 15:40:00 15:40:[address] [facility] 2019-03-14 2019-03-14 [facility] 27 [id number] Common 13:13:00 13:13:[address] [facility] 2019-03-13 2019-03-13 [facility] 27 [id number] Common 14:00:00 14:00:[address] [facility] 2018-12-08 2018-12-08 Outpatient Anna [facility] 25 [id number] Common 15:00:00 15:00:00 [facility] Results Test Description Test Time [...] CA) 9.6 MG/DL 8.5-10.1 N BASIC METABOLIC [id number] 14:03:00 Test Item Value Reference Range Interpretation [...] CA) 9.0 MG/DL 8.5-10.1 N CBC W/AUTO [id number] 13:54:00 Test Item Value Reference Range Interpretation [...] = MDIFF) UA RFLX MICR CULT IF [id number] 11:59:00 Test Item Value Reference Range Interpretation [...] UACULT) Criteria UA RFLX MICR CULT IF [id number] 11:55:00 Test Item Value Reference Range Interpretation [...] code = UACULT) - CT HEAD/BRAIN W/O [id number] 23:15:00 [facility] 1945 Sex: F Name: MACRINA LAURENT [facility] : 1945 Age/S: 75 / F [address] Unit #: [id number] Loc: [place] [address] Phys: Nicole Sorensen MD Acct: [id number] Dis Date: Status: REG REF PHONE #: [phone] Exam Date: 02/11/2021 2258 FAX #: Reason: CVA, COPD, TIA EXAMS: CPT: [id number] CT HEAD/BRA IN W/O CONT 58224 DICTATION LOCATION: 8 HISTORY: Female, 75 years [...] mA and/or kV according to the patient size;and/or use of iterative reconstruction technique. FINDINGS: Images are moderately degraded by patient motion. There is no acute intra-axial or extra-axial hemorrhage, mass, mass effect or midline shift. No acute loss of the cortical slaughter/white junctions is seen. There is diffuse parenchymal atrophy consistent with patient age. Mild periventricular hypodensities are consistent with chronic small vessel ischemic disease. No calvarial fracture is seen. There is chronic mucosal thickening and periostealreaction in right maxillary sinus, unchanged. Other sinuses and mastoids are clear. IMPRESSION: 1. No acute calvarial fracture, intracranial hemorrhage, infarct, or mass. 2. Age-related atrophy and chronic small vessel ischemic injuries. 3. Chronic right maxillary sinusitis. at 2315 Reported and signed by: Sierra Ramos MD CC: Nicole Sorensen MD Technologist:Mars So, RT(R) CTDI: DLP: Trnscb Date/Time: 02/11/2021 (912) PrimoW Orig Print D/T: S: 02/11/2021 (1502) PAGE 1 Signed Report- MRI BRAIN W/O [id number] 15:12:00 [facility] 1945 Sex: F FAX:Nicole Cortes MD Camps: St: REG Name: LAURENT,MACRINA Hairston [facility] : 1945 Age/S: 75/F [address] Unit #: [id number] Loc: [place] [address] Phys: Nicole Sorensen MD Acct: [id number] Dis Date: Status: REG REF PHONE #: [phone] Exam Date: 02/05/2021 2448 FAX #: Reason: CVA EXAMS: CPT: [id number] BRAIN W/O CONTRAST 24357 B2 - MRI BRAIN W/O CONTRAST HISTORY: CVA TECHNIQUE: Multiplanar multisequence MR images of the brain were obtained without intravenous contrast. COMPARISON: 04/08/2020 FINDINGS: Scattered hyperintense foci in the frontal and parietal white matter on FLAIR and T2- weighted images. There is no mass, mass effect or abnormal extra-axial fluid collection. Diffusion-weighted images show no hyperacute, acute or early subacute infarction. The ventricles are normal in size, shape, and position. There are normal signal voids in the larger intracranial vessels. Moderate mucosal thickening with aerated secretions in the right maxillary sinus. The paranasal sinuses and mastoid air cells are otherwise predominantly clear. The marrow signal pattern is within normal limits. IMPRESSION: Mild white matter microvascular disease. No significant intracranial abnormalities. Findings compatible with acute sinusitis in the appropriate clinical setting. at 1512 Reported and signed by: Herbie Graves M.D. CC: Nicole Sorensen MD Technologist: Morenita Orta, RT(R)(MR) Transcribed Date/Time/By: 02/05/2021 (709) :[email or web address].[email or web address] Orig Print D/T: S: 02/05/2021 (7717) PAGE 1 Signed ReportCOVID 19 INHOUSE [id number] 19:52:00 Test Item Value Reference Range Interpretation Comments COVID 19 INHOUSE AG NEGATIVE Negative Per manu facturer, (test code = negative result s should [id number]) be treated aspr esumptive and, if inconsi stent with clinical signs andsymptoms or necessary for patient man agement, should betested with an alternative mol ecular assay. Negative resultsdo not preclude SA RS-CoV-2 infection and s hould not be usedas the s ole basis for patient man agement decisions. Nega tive results should be considered in t he context of apatient's r ecent exposures, hist ory, presence of cli nicalsigns and symptoms co nsistent with COVID-19. [id number] 10:59:00 Test Item Value Reference Range Interpretation Comments AMMONIA (test code = AMM) 39 mcMOL/L 11-32 H CBC W/AUTO [id number] 14:34:00 Test Item Value Reference Range Interpretation [...] CRITERIA (test code = MDIFF) COMPREHENSIVE METABOLIC [id number] 14:33:00 Test Item Value Reference Range Interpretation [...] 45-117 N code = ALKP) CBC W/AUTO [id number] 08:08:00 Test Item Value Reference Range Interpretation [...] NO DIFF/SCN CRITERIA = MDIFF) CBC W/AUTO [id number] 07:20:00 Test Item Value Reference Range Interpretation [...] NO DIFF/SCN CRITERIA = MDIFF) CBC W/AUTO [id number] 06:15:00 Test Item Value Reference Range Interpretation [...] NO DIFF/SCN CRITERIA = MDIFF) CBC W/AUTO [id number] 16:46:00 Test Item Value Reference Range Interpretation [...] NO DIFF/SCN CRITERIA = MDIFF) CBC W/AUTO [id number] 12:23:00 Test Item Value Reference Range Interpretation [...] (test code NO DIFF/SCN CRITERIA = MDIFF) [id number] 15:11:00 Test Item Value Reference Range Interpretation Comments TRANSFERRRIN (test code 193 mg/dL 192-364 Perf ormed At: BN = TRANSF) [facility] [id number] ra Carlitos ZAMORA Ph:[phone] GLUCOSE BEDSIDE [id number] 13:01:00 Test Item Value Reference Range Interpretation Comments GLUCOSE BEDSIDE TESTING (test code 101 mg/dL 70-110 N = GLUBED) GLUCOSE BEDSIDE [id number] 08:35:00 Test Item Value Reference Range Interpretation Comments GLUCOSE BEDSIDE TESTING (test code 101 mg/dL 70-110 N = GLUBED) GLUCOSE BEDSIDE [id number] 19:42:00 Test Item Value Reference Range Interpretation Comments GLUCOSE BEDSIDE TESTING (test code = 93 mg/dL 70-110 N GLUBED) GLUCOSE BEDSIDE [id number] 16:13:00 Test Item Value Reference Range Interpretation Comments GLUCOSE BEDSIDE TESTING (test code = 96 mg/dL 70-110 N GLUBED) GLUCOSE BEDSIDE [id number] 12:55:00 Test Item Value Reference Range Interpretation Comments GLUCOSE BEDSIDE TESTING (test code 104 mg/dL 70-110 N = GLUBED) CBC W/AUTO [id number] 12:42:00 Test Item Value Reference Range Interpretation [...] 35 % calc 12-57 N FESAT) VITAMIN [id number] 08:58:00 Test Item Value Reference Range Interpretation Comments VITAMIN B12 (test code = VITB12) 479 PG/ML 183-986 N FOLIC [id number] 08:58:00 Test Item Value Reference Range Interpretation Comments FOLIC ACID (test code = FOL) 7.00 NG/ML 3.10-17.50 N [id number] 08:58:00 Test Item Value Reference Range Interpretation Comments FERRITIN (test code = TIO) 154.1 NG/ML 3.0-105.0 H GLUCOSE BEDSIDE [id number] 08:22:00 Test Item Value Reference Range Interpretation Comments GLUCOSE BEDSIDE TESTING (test code 107 mg/dL 70-110 N = GLUBED) BASIC METABOLIC [id number] 06:11:00 Test Item Value Reference Range Interpretation [...] CA) 8.8 MG/DL 8.5-10.1 N GLUCOSE BEDSIDE [id number] 20:03:00 Test Item Value Reference Range Interpretation Comments GLUCOSE BEDSIDE TESTING (test code 124 mg/dL 70-110 H = GLUBED) CBC W/AUTO [id number] 08:57:00 Test Item Value Reference Range Interpretation [...] NT WITH AUTO DIFFERENTI AL. CBC W/AUTO [id number] 08:57:00 Test Item Value Reference Range Interpretation [...] CONSISTA NT WITH AUTO DIFFERENTI AL. RBC [id number] 08:57:00 Test Item Value Reference Range Interpretation Comments PLATELET ESTIMATE DECREASED THOUSAND ADEQUATE PLAT ELET COUNT (test code = REVIEWED AND PLTEST) VERIFIED. PLATELET MORPHOLOGY NORMAL (test code = PLTMORPH) CBC W/AUTO [id number] 08:57:00 Test Item Value Reference Range Interpretation [...] NT WITH AUTO DIFFERENTI AL. GLUCOSE BEDSIDE [id number] 07:43:00 Test Item Value Reference Range Interpretation Comments GLUCOSE BEDSIDE TESTING (test code = 97 mg/dL 70-110 N GLUBED) BASIC METABOLIC [id number] 07:02:00 Test Item Value Reference Range Interpretation [...] code = CA) 7.8 MG/DL 8.5-10.1 L [id number] 07:02:00 Test Item Value Reference Range Interpretation Comments MAGNESIUM (test code = MAG) 1.5 MG/DL 1.8-2.4 L CBC W/AUTO [id number] 06:50:00 Test Item Value Reference Range Interpretation [...] code = DIFF/SCN CRITERIA MDIFF) GLUCOSE BEDSIDE [id number] 20:58:00 Test Item Value Reference Range Interpretation Comments GLUCOSE BEDSIDE TESTING (test code = 90 mg/dL 70-110 N GLUBED) GLUCOSE BEDSIDE [id number] 18:52:00 Test Item Value Reference Range Interpretation Comments GLUCOSE BEDSIDE TESTING (test code = 92 mg/dL 70-110 N GLUBED) BASIC METABOLIC [id number] 17:20:00 Test Item Value Reference Range Interpretation [...] = CA) 9.2 MG/DL 8.5-10.1 N CORTISOL [id number] 15:12:00 Test Item Value Reference Range Interpretation Comments CORTISOL AM (test code 9.8 ug/dL 6.2-19.4 Perfo rmed At: HD = CORTAM) [facility] [address] [id number] stacie Grossman MD Ph:[phone] GLUCOSE BEDSIDE [id number] 14:56:00 Test Item Value Reference Range Interpretation Comments GLUCOSE BEDSIDE TESTING (test code 100 mg/dL 70-110 N = GLUBED) THYROID STIMULATING [id number] 13:24:00 Test Item Value Reference Range Interpretation Comments THYROID STIMULATING HORMONE 6.680 mcIU/ML 0.340-4.820 H (test code = TSH) - CT ABD PELVIS [id number] 11:35:00 Name: MACRINA LAURENT [facility] : 1945 Age/S: 74 / F [address] Unit #: [id number] Loc: [place] [address] Phys: Ursula Do MD Acct: [id number] Dis Date: Status: ADM IN PHONE #: [phone] Exam Date: 04/11/2020 1116 FAX #: Reason: abdominal pain EXAMS: CPT: [id number] CT ABDPELVIS W/CONT 14803 HISTORY: abdominal pain TECHNIQUE: Helical imaging of the abdomen and pelvis is performed with intravenous contrast. Approximately 100 mL of intravenous contrast was administered. Oral contrast is administered. Sagittal and coronal reconstructions reviewed. CT DLP dose: 991 mGy-cm.Iterative dose reduction technique was utilized. Location: C3 [...] stranding seen around each kidney. No renal norureteral calculi. The urinary bladder is unremarkable. There is minimal oral contrast in the stomach. No significant contrast seen in the remaining bowel. Stomach and duodenum appear unremarkable. The visualized small bowel is unremarkable without evidence of bowel thickening or obstruction. The colonis unremarkable. The uterus is absent. No adnexal masses are visible. No retroperitoneal lymphadenopathy is present. The diffusely atherosclerotic aorta is of normal caliber. The IVC is patent. An IVC filter appears in place. Majority of the struts have penetrated beyond the wall of the IVC. The portal vein is patent. No evidence of ascites. Abdominal wall is intact. PAGE 1 Signed Report (CONTINUED) Name: MACRINA LAURENT : 1945 Age/S: 74 / F [address] [address] Unit #: [id number]: Leanne Bravo [address] Phys: Ursula Do MD Acct: [id number] Dis Date: Status: ADM IN PHONE #: [phone] Exam Date: 04/11/2020 1115 FAX #: Reason: abdominal pain EXAMS: CPT: [id number] CT ABD PELVIS W/CONT 72869 <Continued> No significant bone lesions. IMPRESSION: 1. There is a 2 cm low-density cyst arising from the upper pole left [...] (1135) t.SDR.NB16 Orig Print D/T: S: 04/11/2020 (1138) PAGE 2 Signed ReportGLUCOSE BEDSIDE [id number] 08:00:00 Test Item Value Reference Range Interpretation Comments GLUCOSE BEDSIDE TESTING (test code 152 mg/dL 70-110 H = GLUBED) CBC W/AUTO [id number] 06:43:00 Test Item Value Reference Range Interpretation [...] code NO DIFF/SCN CRITERIA = MDIFF) RBC [id number] 06:43:00 Test Item Value Reference Range Interpretation Comments PLATELET ESTIMATE (test SLIGHTLY DECREASED ADEQUATE code = PLTEST) THOUSAND PLATELET MORPHOLOGY NORMAL (test code = PLTMORPH) CBC W/AUTO [id number] 06:42:00 Test Item Value Reference Range Interpretation [...] NO DIFF/SCN CRITERIA = MDIFF) CBC W/AUTO [id number] 06:42:00 Test Item Value Reference Range Interpretation [...] NO DIFF/SCN CRITERIA = MDIFF) GLUCOSE BEDSIDE [id number] 06:33:00 Test Item Value Reference Range Interpretation Comments GLUCOSE BEDSIDE TESTING (test code 154 mg/dL 70-110 H = GLUBED) BASIC METABOLIC [id number] 06:18:00 Test Item Value Reference Range Interpretation [...] MG/DL 8.5-10.1 L - XR CHEST 1 [id number] 21:13:00 Name: MACRINA LAURENT [place] : 1945 Age/S: 74 / F [address] [address] Unit #: [id number] Loc: [place] [address] Phys: Ursula Do MD Acct: [id number] Dis Date: Status: ADM IN PHONE #: [phone] Exam Date: 04/10/20202106 FAX #: Reason: PICC LINE PLACEMENT EXAMS: CPT: [id number] XRCHEST 1 V 48661 Fluoro Time: DAP (Gy m2): Air Kerma [...] Do MD PAGE 1 Signed Report Name: MACRINA LAURENT [place] : 1945 Age/S: 74 / F [address] [address] Unit #: [id number] Loc: [place] [address] Phys: Ursula Do MD Acct: [id number] Dis Date: Status: ADM IN PHONE #: [phone] Exam Date: 04/10/20202106 FAX #: Reason: PICC LINE PLACEMENT EXAMS: CPT: [id number] XR CHEST 1 V 68837 Fluoro Time: DAP (Gy m2): Air Kerma (mGy): <Continued> Technologist: Joelle So RT(R)(CT) Trnscb Date/Time: 04/10/2020 (2112) tBRADYRRadhaEFM1 Orig Print D/T: S: 04/10/2020 (2115) PAGE 2 Signed ReportGLUCOSE BEDSIDE [id number] 20:19:00 Test Item Value Reference Range Interpretation Comments GLUCOSE BEDSIDE TESTING (test code = 76 mg/dL 70-110 N GLUBED) GLUCOSE BEDSIDE [id number] 16:22:00 Test Item Value Reference Range Interpretation Comments GLUCOSE BEDSIDE TESTING (test code = 82 mg/dL 70-110 N GLUBED) CBC W/AUTO [id number] 07:47:00 Test Item Value Reference Range Interpretation [...] NO DIFF/SCN CRITERIA = MDIFF) BASIC METABOLIC [id number] 06:50:00 Test Item Value Reference Range Interpretation [...] CA) 8.8 MG/DL 8.5-10.1 N GLUCOSE BEDSIDE [id number] 00:23:00 Test Item Value Reference Range Interpretation Comments GLUCOSE BEDSIDE TESTING (test code = 88 mg/dL 70-110 N GLUBED) GLUCOSE BEDSIDE [id number] 22:47:00 Test Item Value Reference Range Interpretation Comments GLUCOSE BEDSIDE TESTING (test code = 50 mg/dL 70-110 L GLUBED) GLUCOSE BEDSIDE [id number] 20:50:00 Test Item Value Reference Range Interpretation Comments GLUCOSE BEDSIDE TESTING (test code = 62 mg/dL 70-110 L GLUBED) BASIC METABOLIC [id number] 19:19:00 Test Item Value Reference Range Interpretation [...] CA) 9.5 MG/DL 8.5-10.1 N BASIC METABOLIC [id number] 15:26:00 Test Item Value Reference Range Interpretation [...] CA) 9.0 MG/DL 8.5-10.1 N GLUCOSE BEDSIDE [id number] 12:06:00 Test Item Value Reference Range Interpretation Comments GLUCOSE BEDSIDE TESTING (test code = 81 mg/dL 70-110 N GLUBED) GLUCOSE BEDSIDE [id number] 12:06:00 Test Item Value Reference Range Interpretation Comments GLUCOSE BEDSIDE TESTING (test code = 54 mg/dL 70-110 L GLUBED) GLUCOSE BEDSIDE [id number] 08:14:00 Test Item Value Reference Range Interpretation Comments GLUCOSE BEDSIDE TESTING (test code = 46 mg/dL 70-110 L GLUBED) GLUCOSE BEDSIDE [id number] 08:14:00 Test Item Value Reference Range Interpretation Comments GLUCOSE BEDSIDE TESTING (test code = 34 mg/dL 70-110 LL GLUBED) CBC W/AUTO [id number] 06:08:00 Test Item Value Reference Range Interpretation [...] code NO DIFF/SCN CRITERIA = MDIFF) RBC [id number] 06:08:00 Test Item Value Reference Range Interpretation Comments PLATELET ESTIMATE DECREASED ADEQUATE PLATELET C OUNT (test code = THOUSAND VERIFIED BY PLTEST) EXAMINATION OF PERIPHERAL BLOODSMEAR.MANU AL PLT ESTIMATE 92,000-115,000 PLATELET NORMAL MORPHOLOGY (test code = PLTMORPH) CBC W/AUTO [id number] 06:07:00 Test Item Value Reference Range Interpretation [...] NO DIFF/SCN CRITERIA = MDIFF) CBC W/AUTO [id number] 06:07:00 Test Item Value Reference Range Interpretation [...] NO DIFF/SCN CRITERIA = MDIFF) BASIC METABOLIC [id number] 06:06:00 Test Item Value Reference Range Interpretation [...] CA) 9.4 MG/DL 8.5-10.1 N CBC W/AUTO [id number] 05:48:00 Test Item Value Reference Range Interpretation [...] DIFF/SCN CRITERIA MDIFF) - MRI BRAIN W/O [id number] 19:59:00 FAX: Zurdo Perales MD [phone] Camps: PM St: ADM Name: MACRINA LAURENT [place] : 1945 Age/S: 74/F [address] [address] Unit #: [id number] Loc: L.ICU0 [place] [address] Phys: Zurdo Rondon MD Acct: [id number] Dis Date: Status: ADM IN PHONE #: [phone] Exam Date: 04/08/2020 1731 FAX #: Reason: ISCHEMIC STROKE EXAMS: CPT: [id number] MRI BRAIN W/O CONTRAST 35329 LOCATION CODE H 31 MRI BRAIN WITHOUT CONTRAST HISTORY: Ischemic stroke COMPARISON: CT brain from prior day TECHNIQUE: Axial GRE, axial T2, axial T1, axial T2 FLAIR, coronal T2, sagittal T1, axial DWI with ADC map, coronal DWI. No contrast given FINDINGS: There is no diffusion restriction to suggest acute ischemia. Diffuse periventricular white matter foci of increased T2/FLAIR signal changes are compatible with chronic microangiopathy.The ventricles and subarachnoid spaces are normal without evidence of hydrocephalus, shift of midline, or mass effect present. No evidence of subarachnoid hemorrhage, intracerebral hematoma, or extra-axial fluid collections are present. Osseous structures, surrounding soft tissues, sella turcica, posterior fossa and brainstem, IAC's and mastoids are normal in signal intensity. Normal signal void in the carotid and basilar arteries along with superior sagittal sinus is present. Optic chiasm, pituitary stalk, and cavernous sinus regions appear within normal limits. IMPRESSION: 1. No evidence of acuteischemia or infarct. 2. Moderate diffuse periventricular white matter chronic microvascular changes.PAGE 1 Signed Report (CONTINUED) FAX: Zurdo Perales MD [phone] Camps: PM St: ADM Name: MACRINA LAURENT [place] : 1945 Age/S: 74/F [address] [address] Unit #: [id number] Loc: L.ICU0 [place] [address] Phys: Zurdo Rondon MD Acct: [id number] Dis Date: Status: ADM IN PHONE #: [phone] Exam Date: 1 1730 FAX #: Reason: ISCHEMIC STROKE EXAMS: CPT: [id number] MRI BRAIN W/O CONTRAST 55880 <Continued> at 1958 Reported and signed by: Karey Oconnor MD CC: Zurdo Rondon MD Technologist: RT Rajat(R)(MR) Transcribed Date/Time/By: 04/08/2020 (1958) :KingEFM1 Orig Print D/T: S: 04/08/2020 (2001) PAGE 2 Signed Report- XR SHOULDER 2+V [id number] 16:42:00 Name: MACRINA LAURENT [place] : 1945 Age/S: 74 / F [address] [facility] Unit #: [id number] Loc: [place] [address] Phys: Zurdo Rondon MD Acct: [id number] Dis Date: Status: ADM IN PHONE#: [phone] Exam Date: 04/08/2020 1630 FAX #: Reason: left shoulder pain EXAMS: CPT: [id number] XR SHOULDER 2+[place] [address] Fluoro Time: DAP (Gy m2): Air Kerma [...] soft tissues are intact. IMPRESSION: Old injury ofthe left humeral head and neck with residual deformity. Electronically Signed by Sapna Cartwright 04/08/2020 at 1642 Reported and signed by: Soraida Sorensen M.D. CC: Zurdo Rondon MD PAGE 1 Signed Report Name: MACRINA LAURENT [place] : 1945 Age/S: 74 / F [address] [address] Unit #: [id number] Loc: [place] [address] Phys: Zurdo Rondon MD Acct: [id number] Dis Date: Status: ADM IN PHONE #: [phone] Exam Date: 04/08/2020 1630 FAX #: Reason: left shoulder pain EXAMS: CPT: [id number] XR SHOULDER 2+[place] [address] Fluoro Time: DAP (Gy m2): Air Kerma (mGy): <Continued> Technologist: Kimmie Curtis RT(R)(CT) Trnscb Date/Time: 04/08/2020 (1641) tBRADYR.PXC Orig Print D/T: S: 04/08/2020 (9535) PAGE 2 Signed [id number] 06:02:00 Test Item Value Reference Range Interpretation [...] may nella yby method. Completed by Nursing: BASI METABOLIC [id number] 05:37:00 Test Item Value Reference Range Interpretation [...] Ratio 1.48-3.22 Avg L Comment: FASTING IN [id number] 05:37:00 Test Item Value Reference Range Interpretation Comments GLYCOSYLATED HEMOGLOBIN (HA1C) 5.0 % A1C 0.0-5.7 N (test code = GLYHGB) ESTIMATED AVERAGE GLUCOSE (test 97 MG/DLest code = EAG) CBC W/AUTO [id number] 05:23:00 Test Item Value Reference Range Interpretation [...] (test code NO DIFF/SCN CRITERIA = MDIFF) [id number] 21:26:00 Test Item Value Reference Range Interpretation [...] nella yby method. Completed by Nursing: NOVITAMIN [id number] 19:04:00 Test Item Value Reference Range Interpretation Comments VITAMIN B12 (test code = VITB12) 376 PG/ML 183-986 N FOLIC [id number] 19:04:00 Test Item Value Reference Range Interpretation Comments FOLIC ACID (test code = FOL) 6.20 NG/ML 3.10-17.50 N THYROID STIMULATING [id number] 19:04:00 Test Item Value Reference Range Interpretation Comments THYROID STIMULATING HORMONE 3.100 mcIU/ML 0.340-4.820 N (test code = TSH) CARBAMAZEPINE (TEGRETOL)2020-04-07 19:04:00 Test Item Value Reference Range Interpretation Comments CARBAMAZEPINE (TEGRETOL) (test < 0.5 mcG/ML 4.0-12.0 L code = CARB) VALPROIC ACID (DEPAKENE)2020-04-07 19:04:00 Test Item Value Reference Range Interpretation Comments VALPROIC ACID (DEPAKENE) (test 53.7 mcG/ML 50.0-100.0 N code = VALP) VITAMIN [id number] 18:35:00 Test Item Value Reference Range Interpretation Comments VITAMIN B12 (test code = VITB12) 376 PG/ML 183-986 N FOLIC [id number] 18:35:00 Test Item Value Reference Range Interpretation Comments FOLIC ACID (test code = FOL) 6.20 NG/ML 3.10-17.50 N THYROID STIMULATING [id number] 18:35:00 Test Item Value Reference Range Interpretation Comments THYROID STIMULATING HORMONE 3.100 mcIU/ML 0.340-4.820 N (test code = TSH) CARBAMAZEPINE (TEGRETOL)2020-04-07 18:35:00 Test Item Value Reference Range Interpretation Comments CARBAMAZEPINE (TEGRETOL) (test code = mcG/ML 4.0-12.0 CARB) VALPROIC ACID (DEPAKENE)2020-04-07 18:35:00 Test Item Value Reference Range Interpretation Comments VALPROIC ACID (DEPAKENE) (test code = mcG/ML 50.0-100.0 VALP) [id number] 18:17:00 Test Item Value Reference Range Interpretation [...] method. Completed by Nursing: NOCOVID 19 INHOUSE [id number] 16:14:00 Test Item Value Reference Range Interpretation Comments COVID 19 INHOUSE AG NEGATIVE Negative Per manu facturer, (test code = negative result s should [id number]) be treated aspr esumptive and, if inconsi stent with clinical signs andsymptoms or necessary for patient man agement, should betested with an alternative mol ecular assay. Negative resultsdo not preclude SA RS-CoV-2 infection and s hould not be usedas the s ole basis for patient man agement decisions. Nega tive results should be considered in t he context of apatient's r ecent exposures, hist ory, presence of cli nicalsigns and symptoms co nsistent with COVID-19. GLUCOSE BEDSIDE [id number] 16:06:00 Test Item Value Reference Range Interpretation Comments GLUCOSE BEDSIDE TESTING (test code = 79 mg/dL 70-110 N GLUBED) UA RFLX MICR CULT IF [id number] 15:35:00 Test Item Value Reference Range Interpretation [...] RiskForSepsis-no oth srcUA RFLX MICR CULT IF INDICATED 2020-04-07 15:28:00 Test Item Value Reference Range Interpretation [...] UACULT) Indication for culture: RiskForSepsis-no oth srcPROTHROMBIN [id number] 14:58:00 Test Item Value Reference Range Interpretation Comments PT PATIENT (test code = PTP) 11.2 SECONDS 9.3-12.9 N INTERNATIONAL NORMAL RATIO 0.99 INR Unit 0.8-1.2 N (test code = INR) THROMBOPLASTIN TIME [id number] 14:58:00 Test Item Value Reference Range Interpretation Comments THROMBOPLASTIN TIME PARTIAL 21.3 SECONDS 26-35 L (test code = PTT) BASIC METABOLIC [id number] 14:46:00 Test Item Value Reference Range Interpretation [...] 9.1 MG/DL 8.5-10.1 N Completed by Nursing: [id number] 14:46:00 Test Item Value Reference Range Interpretation [...] method. Completed by Nursing: NO- CT ANGIO [id number] 14:46:00 Name: MACRINA LAURENTland : 1945 Age/S: 74 / F [address] Unit #: [id number] Loc: [place] [address] Phys: Jc Garcia MD Acct: [id number] Dis Date: Status: PRE ER PHONE #: [phone] Exam Date: 04/07/2020 1430 FAX #: Reason: ams, slurred speech EXAMS: CPT: [id number] ANGIO NECK 22483 EXAM: - CT ANGIO HEAD, - CT ANGIO NECK Location: C3 HISTORY: 74 years old Female with ams, slurred speech TECHNIQUE: Axial slices were obtained through the head and neck during bolus administration of IV contrast timed to [...] Circulation: Mild scattered atherosclerotic calcifications are noted aboutthe cavernous internal carotid arteries. The RIGHT anterior circulation including the right internalcarotid artery, middle cerebral artery, and anterior cerebral artery demonstrates no abnormality. The LEFT anterior circulation including the left internal carotid artery, middle cerebral artery, and anterior cerebral artery demonstrates no abnormality. The anterior communicating artery is unremarkable. No posterior communicating arteries are identified. ? Vertebrobasilar Circulation: The basilar artery is unremarkable. PAGE 1 Signed Report (CONTINUED) Name: MACRINA LAURENTland : 1945 Age/S: 74 / F [address] Unit #: [id number] Loc: [place] [address] Phys: Jc Garcia Acct: [id number] Dis Date: Status: PRE ER PHONE #: [phone] Exam Date: 04/07/2020 1430 FAX#: Reason: ams, slurred speech EXAMS: CPT: [id number] CT ANGIO NECK [address] <Continued> The RIGHT posterior cerebral artery, superior cerebellar artery, and posterior inferior cerebellar artery demonstrate no abnormality. The LEFT posterior cerebral artery, superior cerebellar artery, and posterior inferior cerebellar artery demonstrate no abnormality. ? Nonvascular findings: The visualized duralsinuses and intradural venous system are unremarkable. No evidence of intracranial mass, mass effect, or abnormal enhancement. The skull base, calvaria, orbits, and overlying soft tissues are intact. The visualized soft tissues of the neck demonstrate an enlarged multinodular thyroid goiter with bilateral thyroid nodules including a dominant low density 1.9 cm nodule and associated calcification in the left lobe of the thyroid gland (image 110, series 2). Superior mediastinum are within normal limits. Visualized lung apices demonstrate bilateral groundglass airspace opacities with intralobular septal thickening suspicious for pulmonary edema. There is a 3 mm right upper lobe pulmonary nodule seen(image 60, series 2), of doubtful clinical significance. Marked, degenerative changes of spine. No os seous abnormality is identified. IMPRESSION: No evidence of [...] Marcum M.D. CC: Jc Garcia MD Technologist:RT Jesse(Lul)(CT)CTDI: DLP: Trnscb Date/Time: 04/07/2020 (1446) [email or web address].[email or web address] Orig Print D/T: S: 04/07/2020 (2688) PAGE 2Signed Report- CT ANGIO [id number] 14:46:00 Name: MACRINA LAURENT [facility] : 1945 Age/S: 74 / F [address] Unit #: [id number] Loc: [place] [address] Phys: Jc Garcia MD Acct: [id number] Dis Date: Status: PRE ER PHONE #: [phone] Exam Date: 04/07/2020 7123 FAX #: Reason: ams, slurred speech EXAMS: CPT: [id number] ANGIO HEAD [address]64 EXAM: - CT ANGIO HEAD, - CT ANGIO NECK Location: C3 HISTORY: 74 years old Female with ams, slurred speech TECHNIQUE: Axial slices were obtained through the head and neck during bolus administration of IV contrast timed to maximally opacify the carotid arteries. Images were reviewed on a 3D workstation using MPR, MIP, and volume rendered techniques. COMPARISON: None FINDINGS: Aorti c Arch: Normal three-vessel anatomic configuration of the [...] Circulation: Mild scattered atherosclerotic calcifications are noted aboutthe cavernous internal carotid arteries. The RIGHT anterior circulation including the right internal carotid artery, middle cerebral artery, and anterior cerebral artery demonstrates no abnormality. The LEFT anterior circulation including the left internal carotid artery, middle cerebral artery, and anterior cerebral artery demonstrates no abnormality. The anterior communicating artery is unremarkable. No posterior communicating arteries are identified. ? Vertebrobasilar Circulation: The basilar artery is unremarkable. PAGE 1 Signed Report (CONTINUED) Name: MACRINA LAURNETland : 1945 Age/S: 74 / F [address] [address] Unit #: [id number] Loc: [place] [address] Phys: Gavin Garciajamie TURCIOS Acct: [id number] Dis Date: Status: PRE ER PHONE #: [phone] Exam Date: 04/07/2020 8555 FAX#: Reason: ams, slurred speech EXAMS: CPT: [id number] CT ANGIO HEAD [address] <Continued> The RIGHT posterior cerebral artery, superior cerebellar artery, and posterior inferior cerebellar artery demonstrate no abnormality. The LEFT posterior cerebral artery, superior cerebellar artery, and posterior inferior cerebellar artery demonstrate no abnormality. ? Nonvascular findings: The visualized duralsinuses and intradural venous system are unremarkable. No evidence of intracranial mass, mass effect, or abnormal enhancement. The skull base, calvaria, orbits, and overlying soft tissues are intact. The visualized soft tissues of the neck demonstrate an enlarged multinodular thyroid goiter with bilateral thyroid nodules including a dominant low density 1.9 cm nodule and associated calcification in the left lobe of the thyroid gland (image 110, series 2). Superior mediastinum are within normal limits. Visualized lung apices demonstrate bilateral groundglass airspace opacities with intralobular septal thickening suspicious for pulmonary edema. There is a 3 mm right upper lobe pulmonary nodule seen(image 60, series 2), of doubtful clinical significance. Marked, degenerative changes of spine. No os seous abnormality is identified. IMPRESSION: No evidence of [...] Marcum M.D. CC: Jc Garcia MD Technologist:RT Jesse(R)(CT)CTDI: DLP: Trnscb Date/Time: 04/07/2020 (8472) [email or web address] Orig Print D/T: S: 04/07/2020 (0053) PAGE 2Signed Report- XR CHEST 1 [id number] 14:37:00 Name: MACRINA LAURENT [place] : 1945 Age/S: 74 / F [address] Unit #: [id number] Loc: [place] [address] Phys: Jc Garcia MD Acct: [id number] Dis Date: Status: PRE ER PHONE #: [phone] Exam Date: 04/07/2020 1432 FAX #: Reason: Code Stroke EXAMS: CPT: [id number] XR CHEST 1 V 37937 Fluoro Time: DAP (Gy m2): Air Kerma [...] of pneumothorax.. Not fully included in the ifeqb-iw-vkxu, there appears to be cortical irregularity about the left humeral head, which may represent fracture; age indeterminate. An IVC filter is partially seen in the upper abdomen. IMPRESSION 1. Low lung volumes and bronchovascular crowding. Otherwise, No radiographic evidence of acute cardiopulmonary process. 2. Not fully included in the mwvbt-dx-ulcz, there appears to be cortical irregularity about the left humeral head, which may represent fracture; age indeterminate. Correlate with point tenderness on physical exam. Additional dedicated radiographs of the left shoulder and/or humerus may be obtained if it is clinically warranted. at 1434 Reported and signed by: Alina Marcum M.D.CC: Jc Garcia MD PAGE 1 Signed Report Name: MACRINA LAURENT [place] : 1945 Age/S: 74 / F [address] Unit #: [id number] Loc: [place] [address] Phys: Jc Garcia MD Acct: [id number] Dis Date: Status: PRE ER PHONE #: [phone] Exam Date: 04/07/2020 1432 FAX #: Reason: Code Stroke EXAMS: CPT: [id number] XR CHEST 1 V 19904 Fluoro Time: DAP (Gy m2): Air Kerma (mGy): & lt;Continued> Technologist: Courtney Roland RT(R) Trnscb Date/Time: 04/07/2020 (1437) [email or web address] Orig Print D/T: S: 04/07/2020 (0802) PAGE 2 Signed ReportCBC W/O [id number] 14:23:00 Test Item Value Reference Range Interpretation [...] 7.0-10.5 N MPV) - CT HEAD/BRAIN W/O [id number] 14:23:00 Name: MACRINA LAURENTland : 1945 Age/S: 74 / F [address] Unit #: [id number] Loc: [place] [address] Phys: Jc Garcia MD Acct: [id number] Dis Date: Status: PRE ER PHONE #: [phone] Exam Date: 04/07/2020 1413 FAX #: Reason: Code Stroke EXAMS: CPT: [id number] CT HEAD/BRAIN W/O CONT 32864 EXAM: - CT HEAD/BRAIN W/O CONT HISTORY: Code Stroke C3 TECHNIQUE: Axial tomograms through the brain were obtained without intravenous contrast. Coronal and sagittal reformatted images are provided. One or more of the following dose reduction techniques were used: Automated exposure control, adjustment of the mA and/or kV according to patient size, and/or utilization of iterative reconstruction technique. COMPARISON: None available time of interpretation. FINDINGS: There is nointracranial hemorrhage, mass, or mass effect. No midline [...] PM PAGE 1 Signed Report (CONTINUED) Name: MACRINA LAURENT : 1945 Age/S: 74 / F [address] [address] Unit #: [id number] Loc: [place] [address] Phys: Jc Garcia MD Acct: [id number] Dis Date: Status: PRE ER PHONE #: [phone] Exam Date: 04/07/2020 1413 FAX #: Reason: Code Stroke EXAMS: CPT: [id number] CT HEAD/BRAIN W/O CONT 40665<Continued> at 1423 Reported and signed by: Alina Marcum M.D. CC: Jc Garcia MD Technologist:RT Jesse(R)(CT) CTDI: DLP: Trnscb Date/Time: 04/07/2020 (1423) t.[email or web address]/t.[email or web address] Orig Print D/T: S: 04/07/2020 (2862) PAGE 2 Signed ReportSARS-COV2/RT-PCR ([facility])2019-10-19 13:24:00 Test Item Value Reference Range Interpretation Comments SARS-COV2/RT-PCR (test Not Detected Not Detected, Negative code = 4278549) SARS-COV-2 PERFORMING LAB [facility] (test code = 0966090) Negative results do not preclude SARS-CoV-2 infection [...] of the Act.Fact Sheet for Healthcare Pro viders:https://www.[employer]/Documents/Xpert%20Xpress%20SARS%20CoV-2/Fact%20Sh eets/302-3802%95HEMU-MAG-9%20HEALTHCARE%20PROVIDERS%20FACT%20SHEET.pdfFact Sheet for Healthcare Patients:https://www.[employer]/Documents/Xpert%20Xpress%20SARS%20CoV-2/Fact%20Sheets/302-3801%20SARS-COV -2%20PATIENT%20FACT%20SHEET.pdfPerforming Laboratory:[facility] [place], [place] [address]dayana [place], [place] [address]YNXTMZCW ACID (DEPAKENE)2019-08-31 07:37:00 Test Item Value Reference Range Interpretation Comments VALPROIC ACID (DEPAKENE) (test 45.7 ug/mL 50.0-100.0 L code = VALP) HGBA1C - GLYCOSYLATED [id number] 14:38:00 Test Item Value Reference Range Interpretation Comments GLYCOSYLATED HEMOGLOBIN (HA1C) (test 4.7 % 4.0-6.0 N code = GLYHGB) URINALYSIS [id number] 13:31:00 Test Item Value Reference Range Interpretation [...] = BACU) 3+ /HPF NEGATIVE A URINALYSIS [id number] 13:20:00 Test Item Value Reference Range Interpretation [...] code = BACU) /HPF NEGATIVE BASIC METABOLIC [id number] 12:49:00 Test Item Value Reference Range Interpretation [...] 9.2 mg/dL 8.6-10.4 N CA) BASIC METABOLIC [id number] 12:43:00 Test Item Value Reference Range Interpretation [...] code = mg/dL 8.6-10.4 CA) CBC W/AUTO [id number] 12:02:00 Test Item Value Reference Range Interpretation [...] code = LDLC) CORONARY RISK FACTOR 4.22 CHOL/H DL RISK MALE: (test code = RISK) 1/2 AVG 3 .43 FEMALE: 1/2 AVG 3.27 A VG 4.97 AVG 4.44 2X AVG 9.55 2X AVG 7.05 3X AVG 23.39 3X AVG 11.04~~~~~~~~~~ ~~~~~~~~ ~~~~~~~~~~~~~~~ ~~~~~~~~ ~~~~~~~~~~~~~~~ ~~~~Yudith onal Cholestero l Education (NCEP ) Guidelines:~~~~ ~~~~~~~~ ~~~~~~~~~~~~~~~ ~~~~~~~~ ~~~~~~~~~~~~~~~ ~~~~~~~~ ~~ HDL Cholesterol<4 0mg/dL: HDL Cholesterol (Major risk factor for CHD)>60mg/dL: H DL Cholesterol (Ne gative risk factor for CHD)40-59mg/dL: Borderline Risk LDL Cholesterol<1 00mg/dL: Desirable LDL-C [id number] 0-159mg/ dL: Borderline High Risk LDL-C [id number] 0-189mg/ dL: High risk L DL-C concentration H DL-LDL Cholesterol is affected by a number of factors suchas smoking, age and sex.~~~~~~~~~~~ ~~~~~~~~ ~~~~~~~~~~~~~~~ ~~~~~~~~ ~~~~~~~~~~~~~~~ ~~~ THYROID STIMULATING [id number] 12:09:00 Test Item Value Reference Range Interpretation Comments THYROID STIMULATING HORMONE (test 8.41 mIU/mL 0.38-5.60 H code = TSH)
--- NOTE | 2022-02-14 10:31 | RAD REPORT ---
EXAM DESCRIPTION: CT - Head Brain Wo Cont - 02/14/2022 9:55 am CLINICAL HISTORY: Alteration of awareness/confusion COMPARISON: December 2021 TECHNIQUE: Computed axial tomography of the head was obtained. IV contrast was not requested. All CT scans are performed using dose optimization technique as appropriate and may include automated exposure control or mA/KV adjustment according to patient size. FINDINGS: An intracranial bleed is not seen . The ventricles are normal in caliber. No extra-axial fluid collection is noted. Mild low-density areas within periventricular, deep and subcortical white matter likely represent isc hemic changes secondary to small vessel disease. Fluid within the sinuses/ mastoids is not seen. IMPRESSION: No acute intracranial abnormality is seen. If patient's symptoms persist MRI of the bra in would be recommended.
--- NOTE | 2022-02-14 11:00 | RAD REPORT ---
EXAM DESCRIPTION: Zack Single View02/14/2022 9:32 am CLINICAL HISTORY: cough COMPARISON: December 2021 FINDINGS: The lungs appear clear of acute infiltrate. The heart is normal size IMPRESSION: No acute abnormalities displayed
[2022-02-14] MEDS ORDERED: FAMOTIDINE 20 MG/2 ML VIAL IV ONE (11:09)
[2022-02-14] MEDS ORDERED: NA CHLORIDE 0.9% 1,000 ML ONE (11:09)
[2022-02-14 11:14] LABS: SARS-CoV-2 Antigen Rapid Res Negative (Negative)
[2022-02-14 11:46] LABS: Absolute Lymphocytes (CBC) 1.1 K/uL (0.7-4.9); Hematocrit 28.3 % (36.0-45.0); Lymphocytes % 9.2 % (15.3-44.8); MCV 96.8 fL (80-100); MPV 10.4 fL (7.6-11.3); RBC Red Blood Cell Count 2.93 M/uL (3.86-4.86)
[2022-02-14 11:57] LABS: Protime INR 1.12
[2022-02-14 12:17] LABS: ALT/SGPT 14 U/L (12-78); Albumin 2.4 g/dL (3.4-5.0); Alkaline Phosphatase 94 U/L (45-117); BUN Blood Urea Nitrogen 95 mg/dL (7-18); Bicarbonate 30 mmol/L (21-32); Bilirubin Total 0.3 mg/dL (0.2-1.0); Glomerular Filtration Rate 20 ml/min (=/>90); Glucose Level 107 mg/dL (74-106); Lipase 53 U/L (73-393); NT PRO-BNP 2358 pg/mL (<125); Protein, Total 6.5 g/dL (6.4-8.2); Sodium Level 141 mmol/L (136-145)
[2022-02-14 12:19] LABS: AST/SGOT 20 U/L (15-37); Bilirubin Direct < 0.1 mg/dL (0-0.2); Magnesium 1.9 mg/dL (1.8-2.4); Potassium 3.4 mmol/L (3.5-5.1)
[2022-02-14 12:20] LABS: Troponin High Sensitivity 174.9 pg/mL (<58.9)
--- NOTE | 2022-02-14 13:27 | EDPHYS ---
Physician Documentation [facility] [place], [place] Name: Macrina Mason Age: 76 yrs Sex: Female : 1945 Arrival Date: 02/14/2022 Time: 08:51 Bed 2 Private MD: ED Physician Kameron Phipps HPI: 02/14 09:16 This 76 yrs old Female presents to ER via EMS with complaints of Altered [facility] Mental Status. 09:16 The patient presents with decreased responsiveness. Onset: The symptoms/episode jmm began/occurred yesterday. Possible causes: unknown. Associated signs and symptoms: Pertinent negatives: shortness of breath. This is a 76 year old female with a history of schizophrenia, parkinsons, hlp that presents to the ED with decreased responsiveness per long term. Patient choked on a pill yesterday when it began. Similar episodes have occurred in the past per family. . Historical: - Allergies: 08:55 PENICILLINS; jh6 08:55 tramadol; jh6 - Home Meds: 08:55 gabapentin 800 mg Oral tab 1 tab 3 times per day [Active]; aspirin 325 mg Oral tab 1 jh6 tab once daily [Active]; - PMHx: 08:55 UTI; Schizophrenia; convulsions; Parkinsons; TIA; Hyperlipidemia; DYSPHAGIA; DVT; CVA; jh6 chronic kidney disease; ADD/ADHD; COPD; allergies; Alzheimers; Back pain; Bipolar disorder; CHF; - Immunization history:: Adult Immunizations up to date. - Social history:: Smoking status: unknown. ROS: 09:16 Unable to obtain ROS due to baseline dementia. m Exam: 09:16 Head/Face: atraumatic. Eyes: EOMI, no conjunctival erythema appreciated ENT: Moist jmm Mucus Membranes Neck: Trachea midline, Supple Chest/axilla: Normal chest wall appearance and motion. Cardiovascular: Regular rate and rhythm. No edema appreciated Respiratory: Normal respirations, no respiratory distress appreciated Abdomen/GI: Non distended Back: Normal ROM Skin: General appearance color normal 09:16 Constitutional: The patient appears awake, non-toxic. 09:16 Musculoskeletal/extremity: 09:16 Skin: Appearance: Color: normal in color. 09:16 Neuro: Orientation: Not oriented to person, place, time. 09:16 Psych: Behavior/mood is calm. Vital Signs: 08:52 BP 100 / 46; Pulse 92; Resp 20; Temp 98.0(TE); Pulse Ox 94% ; Weight 104.33 kg; Height jh6 5 ft. 6 in. (167.64 cm); Pain 0/10; 10:00 BP 94 / 40; Pulse 75; Resp 18; Pulse Ox 95% on R/A; Pain 0/10; jh6 11:00 BP 99 / 48; Pulse 73; Resp 17; Pulse Ox 96% on R/A; Pain 0/10; jh6 12:00 BP 103 / 43; Pulse 71; Resp 17; Pulse Ox 96% on R/A; Pain 0/10; jh6 13:00 BP 110 / 52; Pulse 72; Resp 18; Pulse Ox 97% ; Pain 0/10; jh6 14:00 BP 122 / 53; Pulse 81; Resp 15 S; Pulse Ox 99% on R/A; jg9 08:52 Body Mass Index 37.12 (104.33 kg, 167.64 cm) 6 MDM: 09:16 Patient medically screened. [facility] 09:17 Patient medically screened. [facility] 13:25 Data reviewed: vital signs, nurses notes. Counseling: I had a detailed discussion with bakari the patient and/or guardian regarding: radiology results. ED course: I discussed the patient with Dr. Urbina whom accepted the patient to his service. . 02/14 09:21 Order name: Basic Metabolic Panel; Complete Time: 12:34 [facility] 02/14 09:21 Order name: CBC with Diff; Complete Time: 12:18 [facility] 02/14 09:21 Order name: LFT's; Complete Time: 12:34 [facility] 02/14 09:21 Order name: Magnesium; Complete Time: 12:34 [facility] 02/14 09:21 Order name: NT PRO-BNP; Complete Time: 12:34 [facility] 02/14 09:21 Order name: PT-INR; Complete Time: 12:18 [facility] 02/14 09:21 Order name: Troponin HS; Complete Time: 12:34 [facility] 02/14 09:21 Order name: Lipase; Complete Time: 12:34 [facility] 02/14 09:21 Order name: Blood Culture Adult (2) joelle 02/14 09:21 Order name: Lactate; Complete Time: 12:18 [facility] 02/14 09:21 Order name: Urine Culture [facility] 02/14 09:21 Order name: SARS RAPID; Complete Time: 11:36 [facility] 02/14 09:21 Order name: Flu; Complete Time: 11:36 [facility] 02/14 14:00 Order name: Urine Dipstick-Ancillary; Complete Time: 14:01 EDLA 02/14 09:21 Order name: XRAY Chest (1 view); Complete Time: 11:13 [facility] 02/14 09:21 Order name: EKG; Complete Time: 09:24 [facility] 02/14 09:21 Order name: Cardiac monitoring; Complete Time: 13:39 [facility] 02/14 09:21 Order name: EKG - Nurse/Tech; Complete Time: 13:39 [facility] 02/14 09:21 Order name: IV Saline Lock; Complete Time: 13:39 [facility] 02/14 09:21 Order name: Labs collected and sent; Complete Time: 13:39 [facility] 02/14 09:21 Order name: O2 Per Protocol; Complete Time: 13:39 [facility] 02/14 09:21 Order name: O2 Sat Monitoring; Complete Time: 13:39 [facility] 02/14 09:21 Order name: CT Head Brain wo Cont [facility] 02/14 09:21 Order name: Steele; Complete Time: 13:39 [facility] 02/14 09:28 Order name: Head Brain Wo Cont; Complete Time: 10:32 [facility]LA 02/14 18:21 Order name: Troponin High Sensitivity; Complete Time: 18:24 EDLA 02/14 11:43 Order name: Labs - recollect needed: Blood Culture, red top not filled to 2mls. dh3 Phlebotomy notified; Complete Time: 13:39 Administered Medications: 11:30 Drug: NS 0.9% 1000 ml Route: IV; Rate: 1 bolus; Site: right hand; [facility] 11:30 Drug: Pepcid (famotidine) 20 mg Route: IVP; Site: right hand; [facility] 14:15 Drug: Rocephin (cefTRIAXone) 1 grams Route: IV; Rate: calculated rate; Site: right [facility] wrist; 16:34 Follow up: Response: No adverse reaction; IV Status: Completed infusion [facility] Disposition: 18:56 Co-signature as Attending Physician, Kameron Phipps MD I agree with the assessment and [facility] plan of care. Disposition Summary: 02/14/22 13:26 Hospitalization Ordered Hospitalization Status: Observation cal Provider: Baidoo, Kev jmm Location: Telemetry/MedSurg (observation) jmm Condition: Stable jmm Problem: new jmm Symptoms: are unchanged jmm Bed/Room Type: Standard [facility] Room Assignment: 232(02/14/22 16:10) dw Diagnosis - Dehydration jmm - Hypercalcemia jmm - Altered mental status, unspecified jmm Forms: - Medication Reconciliation Form jmm - SBAR form jmm Signatures: Dispatcher [employer] Magui Villalpando RN RN Kameron Cain MD MD cha Mickail, Joel, PA PA Irlanda Wilkinson 3 Madison Gonzalez RN RN jh6 Corrections: (The following items were deleted from the chart) 16:10 13:26 jmm dw
--- NOTE | 2022-02-14 13:27 | ER ---
Nurse's Notes [facility] Name: Macrina Mason Age: 76 yrs Sex: Female : 1945 Arrival Date: 02/14/2022 Time: 08:51 Bed 2 Private MD: Diagnosis: Dehydration;Hypercalcemia;Altered mental status, unspecified Presentation: 02/14 08:52 Chief complaint: EMS states: [facility] called for AMS that was increased from yesterday. pt jh6 choked on pilled yesterday and this am has been less responsive. family stated that pt gets this way when she has a UTI. Coronavirus screen: Vaccine status: Patient reports receiving the 2nd dose of the covid vaccine. Client denies travel out of the [place] in the last 14 days. Ebola Screen: Patient negative for fever greater than or equal to 101.5 degrees Fahrenheit, and additional compatible Ebola Virus Disease symptoms Patient denies exposure to infectious person. Patient denies travel to an Ebola-affected area in the 21 days before illness onset. Initial Sepsis Screen: Does the patient meet any 2 criteria? Altered Mental Status. Yes Does the patient have a suspected source of infection? No. Patient's initial sepsis screen is negative. Risk Assessment: Do you want to hurt yourself or someone else? Patient reports no desire to harm self or others. Onset of symptoms was February 13, 2022. 08:52 Method Of Arrival: EMS: [facility] 08:52 Acuity: [place] 3 [facility] Triage Assessment: 08:57 General: Appears in no apparent distress. Behavior is calm, cooperative, drowsy. [facility] Historical: - Allergies: 08:55 PENICILLINS; [facility] 08:55 tramadol; [facility] - Home Meds: 08:55 gabapentin 800 mg Oral tab 1 tab 3 times per day [Active]; aspirin 325 mg Oral tab 1 [facility] tab once daily [Active]; - PMHx: 08:55 UTI; Schizophrenia; convulsions; Parkinsons; TIA; Hyperlipidemia; DYSPHAGIA; DVT; CVA; [facility] chronic kidney disease; ADD/ADHD; COPD; allergies; Alzheimers; Back pain; Bipolar disorder; CHF; - Immunization history:: Adult Immunizations up to date. - Social history:: Smoking status: unknown. Screenin:00 Abuse screen: Denies threats or abuse. Denies injuries from another. Nutritional [facility] screening: No deficits noted. Tuberculosis screening: No symptoms or risk factors identified. Fall Risk Secondary diagnosis (15 points) dementia, IV access (20 points). Ambulatory Aid- None/Bed Rest/Nurse Assist (0 pts). Assessment: 09:10 General: Appears in no apparent distress. comfortable, Behavior is calm, cooperative, 6 sent for increased ams by long-term. family believes that pt might have uti. . 11:35 General: lab at bedside attempting to draw blood cultures. Pt a very hard stick and lab 6 reported that red top for blood cultures was not full enough. . 11:35 General: Appears in no apparent distress. obese, Behavior is calm, cooperative, pt will jh6 open eyes when asked and will follow simple commands but is drowsy and returns to sleep easily . Pain: Denies pain. Neuro: Level of Consciousness is confused, lethargic, Oriented to none Speech is slurred. 14:00 Reassessment: No changes from previously documented assessment. Patient and/or family j9 updated on plan of care and expected duration. Pain level reassessed. 16:00 Reassessment: No changes from previously documented assessment. Patient and/or family 6 updated on plan of care and expected duration. Pain level reassessed. pt sleeping NAD. 17:02 General: attempted to call report for second time to second floor. [facility] Vital Signs: 08:52 BP 100 / 46; Pulse 92; Resp 20; Temp 98.0(TE); Pulse Ox 94% ; Weight 104.33 kg; Height [facility] 5 ft. 6 in. (167.64 cm); Pain 0/10; 10:00 BP 94 / 40; Pulse 75; Resp 18; Pulse Ox 95% on R/A; Pain 0/10; jh6 11:00 BP 99 / 48; Pulse 73; Resp 17; Pulse Ox 96% on R/A; Pain 0/10; 6 12:00 BP 103 / 43; Pulse 71; Resp 17; Pulse Ox 96% on R/A; Pain 0/10; 6 13:00 BP 110 / 52; Pulse 72; Resp 18; Pulse Ox 97% ; Pain 0/10; 6 14:00 BP 122 / 53; Pulse 81; Resp 15 S; Pulse Ox 99% on R/A; jg9 08:52 Body Mass Index 37.12 (104.33 kg, 167.64 cm) jh6 ED Course: 08:51 Patient arrived in ED. 08:52 Madison Gonzalez, RN is Primary Nurse. jh6 08:55 Triage completed. jh6 08:58 Arm band placed on right wrist. Patient placed in the treatment room, on a stretcher, jh6 on cardiac monitor technician, on pulse oximetry. 09:00 Bed in low position. Call light in reach. Side rails up X2. jh6 09:16 Kameron Phipps MD is Attending Physician. joelle 09:22 Tomasz Nelson PA is PHCP. jmm 09:34 XRAY Chest (1 view) In Process Unspecified. EDMS 09:57 Head Brain Wo Cont In Process Unspecified. EDMS 11:20 Inserted saline lock: 22 gauge in right wrist, using aseptic technique. Blood collected.6 13:22 Steele cath inserted, using sterile technique, 16 Fr., by ne, balloon inflated, to 6 gravity drainage, urine specimen collected. 13:25 Kev Urbina is Hospitalizing Provider. [facility] Administered Medications: 11:30 Drug: NS 0.9% 1000 ml Route: IV; Rate: 1 bolus; Site: right hand; jh6 11:30 Drug: Pepcid (famotidine) 20 mg Route: IVP; Site: right hand; 6 14:15 Drug: Rocephin (cefTRIAXone) 1 grams Route: IV; Rate: calculated rate; Site: right 6 wrist; 16:34 Follow up: Response: No adverse reaction; IV Status: Completed infusion 6 Medication: 09:00 VIS not applicable for this client. 6 Outcome: 13:26 Decision to Hospitalize by Provider. [facility] 18:24 Patient left the ED. 6 Signatures: Dispatcher [employer] EDMS Kameron Phipps MD MD cha Mickail, Joel, PA PA jm Amaya Mckeon RN RN ss Hastedt, Jennifer, BENTON BHARDWAJ jh6 Madison Allen, BENTON BHARDWAJ jg9 Corrections: (The following items were deleted from the chart) 13:23 11:45 Inserted saline lock: 22 gauge in right wrist, using aseptic technique. Blood 6 collected. 6
[2022-02-14 14:00] LABS: Urine Blood Trace-intact (Negative); Urine Glucose Negative (Negative); Urine Protein 1+ (Negative); Urine pH 5.5 (5.0-7.0)
[2022-02-14] MEDS ORDERED: CEFTRIAXONE 1000 MG/VIAL ONE (14:18)
--- NOTE | 2022-02-14 16:05 | P.HP ---
Patient History Date of Service: 02/14/22 Reason for admission: Altered mental status History of Present Illness: 76-year-old woman with a history of advanced dementia was transferred from the long term to the emergency department because patient has been less interactive with a concern for altered mental status. She had previous admissions for UTI. No reported fever or diarrhea or nausea or vomiting. UA done in the emergency department demonstrated UTI. Patient with AMBAR likely secondary to dehydration. She has advanced dementia and AMS, and not able to provide history. She has mild leukocytosis. Chest x-ray and head CT shows no acute disease. Patient is hospitalized for further management. Allergies No Known Allergies Allergy (Unverified 10/22/19 09:42) Home Medications: Donepezil HCl 10 mg PO BID 10/18/19 Hydrocodone 5/APAP 325 [[place] 5/325*] 1 tab PO Q12HR PRN 10/18/19 Levothyroxine Sodium 25 mcg PO 0630 10/18/19 Memantine HCl 10 mg PO BID 10/18/19 Ondansetron [Ondansetron Odt] 4 mg PO Q12H PRN 10/18/19 Topiramate 100 mg PO BID 10/18/19 Ascorbic Acid [Vitamin C*] 500 mg PO Q12H #90 tablet 02/22/20 Calcitrol [Rocaltrol*] 0.5 mcg PO DAILY #30 cap 02/22/20 ARIPiprazole [Abilify*] 5 mg PO DAILY 08/19/21 Aspirin 81 mg PO DAILY 08/19/21 Atorvastatin Calcium [Lipitor*] 20 mg PO DAILY 08/19/21 Cyclobenzaprine [Flexeril*] 10 mg PO BID PRN 08/19/21 Docusate [Colace Cap*] 100 mg PO BID 08/19/21 Hydralazine [Apresoline*] 50 mg PO TID 08/19/21 Meloxicam [Mobic*] 7.5 mg PO DAILY 08/19/21 Pantoprazole [Protonix Tab*] 40 mg PO DAILY 08/19/21 Propranolol [Inderal*] 40 mg PO DAILY 08/19/21 Trazodone [Desyrel*] 50 mg PO BEDTIME 08/19/21 Divalproex Sodium [Depakote Sprinkle] 250 mg PO BID 12/06/21 Duloxetine HCl [Drizalma Sprinkle] 60 mg PO ONCE 12/06/21 - Past Medical/Surgical History Diabetic: No -: Bipolar disorder -: Schizoaffective disorder -: COPD -: Chronic renal disease -: Hypertension -: Hypothyroidism -: Hyperlipidemia -: Dementia -: Chronic pain with neuropathy -: Chronic renal disease -: Complete hysterectomy -: sb knee replacement Psychosocial/ Personal History: Patient currently lives at [facility]. - Family History Mother -: Heart disease, Lung disease Notes: COPD Father -: Heart disease, Diabetes Notes: quadruple bypass - Social History Alcohol use: No CD- Drugs: No Caffeine use: Yes Review of Systems is unable to be obtained (Due to AMS and dementia) Physical Examination - Physical Exam General: In no apparent distress, Confused HEENT: Atraumatic, PERRLA, Mucous membr. moist/pink, EOMI, Sclerae nonicteric Neck: Supple, JVD not distended Respiratory: Clear to auscultation bilaterally, Normal air movement Cardiovascular: Regular rate/rhythm, Normal S1 S2, Edema (Trace bilateral lower extremity pedal edema) Capillary refill: <2 Seconds Gastrointestinal: Normal bowel sounds, Soft and benign, Non-distended, No tenderness Musculoskeletal: No swelling, No tenderness, No warmth Integumentary: No rashes, No erythema, No cyanosis Neurological: Other (She moves all extremities spontaneously, no focal motor deficit.) Lymphatics: No axilla or inguinal lymphadenopathy - Studies Laboratory Data (last 24 hrs) 02/14/22 10:26: PT 12.4, INR 1.12 02/14/22 10:26: WBC 12.1 H, Hgb 9.4 L, Hct 28.3 L, Plt Count 114 L 02/14/22 10:26: Sodium 141, Potassium 3.4 L, BUN 95 H, Creatinine 2.43 H, Glucose 107 H, Magnesium 1.9, Total Bilirubin 0.3, AST 20, ALT 14, Alkaline Phosphatase 94, Lipase 53 L Microbiology Data (last 24 hrs): 02/14/22 10:50 Nasopharnyx Influenza Type A Antigen Screen - Final 02/14/22 10:50 Nasopharnyx Influenza Type B Antigen Screen - Final Assessment and Plan - Problems (Diagnosis) (1) Acute cystitis without hematuria Current Visit: Yes Status: Acute (2) History of ESBL E. 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 Hydrate with IV normal saline Monitor renal function for improvement. Start IV meropenem given history of ESBL E. coli. Follow urine culture and blood cultures. Monitor for agitation. Keep n.p.o. for now. Patient with chronic troponin elevation. Elevated troponin likely secondary to demand ischemia. Continue to trend troponin. - Advance Directives Does patient have a Living Will: No Does patient have a Durable POA for Healthcare: No
[2022-02-14] MEDS ORDERED: ONDANSETRON 4 MG/2 ML VIAL IV PRN (16:38)
[2022-02-14] MEDS ORDERED: ACETAMINOPHEN 650MG/RECT SUPP PR PRN (16:38)
[2022-02-14] MEDS: Meropenem 1,000 MG in NA CHLORIDE 0.9% 100 ML IV SCH (20:12)
[2022-02-14] MEDS: D5 0.9 NS 1,000 ML IV SCH (20:12)
[2022-02-14] MEDS: HEPARIN 5000 UNIT/ML 1 ML VIAL SQ SCH (20:13)
[2022-02-15] MEDS: HEPARIN 5000 UNIT/ML 1 ML VIAL SQ SCH ×2 (01:00→10:51)
[2022-02-15 02:15] VITALS: BMI 37.1
[2022-02-15] MEDS: D5 0.9 NS 1,000 ML IV SCH ×3 (02:38→17:58)
[2022-02-15 06:27] LABS: Absolute Lymphocytes (CBC) 0.8 K/uL (0.7-4.9); Hematocrit 27.4 % (36.0-45.0); Lymphocytes % 7.5 % (15.3-44.8); MCV 96.1 fL (80-100); MPV 10.1 fL (7.6-11.3); RBC Red Blood Cell Count 2.85 M/uL (3.86-4.86)
[2022-02-15 06:45] LABS: Magnesium 2.1 mg/dL (1.8-2.4); Phosphorus 2.1 mg/dL (2.5-4.9)
[2022-02-15 06:48] LABS: Potassium 2.9 mmol/L (3.5-5.1)
[2022-02-15] MEDS: KCL 20 MEQ/100 mL IVPB 20 MEQ/100 ML BAG IV SCH ×3 (07:00→13:37)
[2022-02-15] MEDS ORDERED: POTASSIUM PHOS IN 0.9 % NACL 15 MMOL/250 ML BAG IV ONE (08:15)
[2022-02-15 09:27] LABS: Blood Morphology Comment NOT SEEN (NOT SEEN); Platelet Estimate ADEQ; White Blood Cell Scan OK (OK)
[2022-02-15] MEDS: Meropenem 1,000 MG in NA CHLORIDE 0.9% 100 ML IV SCH ×2 (10:50→21:04)
--- NOTE | 2022-02-15 13:58 | P.PN ---
Subjective Date of Service: 02/15/22 Chief Complaint: Altered mental status Patient is more awake and interactive today. She has advanced dementia and cannot provide any history. No agitation reported. Physical Examination - Vital Signs Temperature: 96.9 F Blood Pressure: 130/60 Pulse: 82 Respirations: 12 Pulse Ox (%): 98 - Studies Microbiology Data (last 24 hrs): 02/14/22 12:24 Blood - Blood Anaerobic Blood Culture - Final 02/14/22 14:53 Blood - Blood Anaerobic Blood Culture - Final 02/14/22 10:50 Nasopharnyx Influenza Type A Antigen Screen - Final 02/14/22 10:50 Nasopharnyx Influenza Type B Antigen Screen - Final Assessment And Plan - Current Problems (Diagnosis) (1) Acute cystitis without hematuria Current Visit: Yes Status: Acute (2) History of ESBL E. 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 moist/pink, Sclerae nonicteric Neck: Supple, JVD not distended Respiratory: Clear to auscultation bilaterally, Normal air movement Cardiovascular: Regular rate/rhythm, Normal S1 S2, Trace bilateral lower extremity pedal edema. Gastrointestinal: Normal bowel sounds, Soft and benign, Non-distended, No tenderness Musculoskeletal: No swelling, No tenderness. Integumentary: No rashes, No erythema, No cyanosis Neurological: No focal motor deficit Lymphatics: No axilla or inguinal lymphadenopathy Renal function has not responded to IV fluid yet. Continue IV fluid Continue to monitor BMP. Correct hypokalemia. Urine culture is growing gram-negative rods/mixed growth Continue IV meropenem given history of ESBL E. coli. Follow urine culture and blood cultures. Monitor for agitation. Resume feeding Patient with chronic troponin elevation. Elevated troponin likely secondary to demand ischemia. Troponin trended flat. No ACS.
[2022-02-15] MEDS: ARIPiprazole 5 MG TAB PO SCH (13:59)
[2022-02-15] MEDS: HYDRALAZINE HCL 25 MG TABLET PO SCH ×2 (14:00→21:00)
[2022-02-15] MEDS: PROPRANOLOL HCL 40 MG TAB PO SCH (14:00)
[2022-02-15] MEDS ORDERED: KCL 20 MEQ/100 mL IVPB 20 MEQ/100 ML BAG IV SCH (15:00)
[2022-02-15] MEDS: [UNRECOGNIZED DRUG - OTHER] TOP SCH ×2 (17:00→21:00)
[2022-02-15] MEDS: FLUOCINONIDE TOP SCH ×2 (17:00→21:00)
[2022-02-15] MEDS: DONEPEZIL HCL 5 MG TAB PO SCH (21:00)
[2022-02-15] MEDS: ARGININE PO SCH (21:00)
[2022-02-15] MEDS: TOPIRAMATE 100 MG TAB PO SCH (21:00)
[2022-02-15] MEDS: DIVALPROEX NA 125 MG CAP PO SCH (21:00)
[2022-02-15] MEDS: HOME MED 1 EA UNK (Protein Supplement [Promod] 946 ML Liquid) PO SCH (21:00)
[2022-02-15] MEDS ORDERED: HOME MED 1 EA UNK (Donepezil Hcl [Donepezil Hcl] 10 MG Tablet) PO SCH (21:00)
[2022-02-15] MEDS: ASCORBIC ACID 500 MG TABLET PO SCH (21:00)
[2022-02-15] MEDS: VITE AC PO SCH (21:00)
[2022-02-15] MEDS: MEMANTINE HCL 10 MG TABLET PO SCH (21:00)
[2022-02-15] MEDS: TRAZODONE 50 MG TABLET PO SCH (21:00)
[2022-02-15] MEDS: DOCUSATE NA 100 MG CAP PO SCH (21:00)
[2022-02-15] MEDS: ASCORBATE SOD PO SCH (21:00)
[2022-02-16] MEDS: D5 0.9 NS 1,000 ML IV SCH (03:05)
[2022-02-16] MEDS: LEVOTHYROXINE SOD 0.025 MG TAB PO SCH (06:11)
[2022-02-16 06:16] LABS: Phosphorus 2.1 mg/dL (2.5-4.9); Potassium 3.9 mmol/L (3.5-5.1)
[2022-02-16 06:23] LABS: Absolute Lymphocytes (CBC) 0.9 K/uL (0.7-4.9); Lymphocytes % 18.2 % (15.3-44.8); MCV 95.8 fL (80-100); MPV 9.6 fL (7.6-11.3); RBC Red Blood Cell Count 2.93 M/uL (3.86-4.86)
[2022-02-16] MEDS ORDERED: POTASSIUM PHOS IN 0.9 % NACL 15 MMOL/250 ML BAG IV ONE (07:00)
[2022-02-16 08:21] LABS: Blood Morphology Comment NOTED (NOT SEEN); Platelet Estimate DECR; White Blood Cell Scan OK (OK)
[2022-02-16] MEDS: ATORVASTATIN 20 MG TAB PO SCH (09:00)
[2022-02-16] MEDS: HYDRALAZINE HCL 25 MG TABLET PO SCH ×3 (09:00→21:00)
[2022-02-16] MEDS: MEMANTINE HCL 10 MG TABLET PO SCH ×2 (09:00→21:00)
[2022-02-16] MEDS: VITE AC PO SCH ×2 (09:00→21:00)
[2022-02-16] MEDS: ASCORBATE SOD PO SCH ×2 (09:00→21:00)
[2022-02-16] MEDS: ASPIRIN 81 MG CHEWABLE TABLET PO SCH (09:00)
[2022-02-16] MEDS: TOPIRAMATE 100 MG TAB PO SCH ×2 (09:00→21:00)
[2022-02-16] MEDS ORDERED: CALCITROL 0.25 MCG CAP PO SCH (09:00)
[2022-02-16] MEDS: ARIPiprazole 5 MG TAB PO SCH (09:00)
[2022-02-16] MEDS: PANTOPRAZOLE 40MG TABLET PO SCH (09:00)
[2022-02-16] MEDS: ASCORBIC ACID 500 MG TABLET PO SCH ×2 (09:00→21:00)
[2022-02-16] MEDS: ARGININE PO SCH ×2 (09:00→21:00)
[2022-02-16] MEDS: PROPRANOLOL HCL 40 MG TAB PO SCH (09:00)
[2022-02-16] MEDS: MULTIVIT W/ MINERAL TAB PO SCH (09:00)
[2022-02-16] MEDS: DIVALPROEX NA 125 MG CAP PO SCH ×2 (09:00→21:00)
[2022-02-16] MEDS: HOME MED 1 EA UNK (Protein Supplement [Promod] 946 ML Liquid) PO SCH ×2 (09:00→21:00)
[2022-02-16] MEDS: FLUOCINONIDE TOP SCH ×4 (09:00→21:00)
[2022-02-16] MEDS: DOCUSATE NA 100 MG CAP PO SCH ×2 (09:00→21:00)
[2022-02-16] MEDS ORDERED: HOME MED 1 EA UNK (Multivitamin With Minerals [Multivitamins With Minerals] Tablet) PO SCH (09:00)
[2022-02-16] MEDS: [UNRECOGNIZED DRUG - OTHER] TOP SCH ×4 (09:00→21:00)
[2022-02-16] MEDS: Meropenem 1,000 MG in NA CHLORIDE 0.9% 100 ML IV SCH ×2 (10:46→21:37)
[2022-02-16] MEDS: D5.45NS W/KCL 20MEQ 20 MEQ/1,000 ML BAG IV SCH ×2 (10:57→19:00)
--- NOTE | 2022-02-16 14:12 | P.PN ---
Subjective Date of Service: 02/16/22 Chief Complaint: Altered mental status Patient is awake and responds verbally No agitation reported. Nursing staff reported difficulty swallowing and stopped feeding yesterday. Physical Examination - Vital Signs Temperature: 98.1 F Blood Pressure: 122/55 Pulse: 88 Respirations: 18 Pulse Ox (%): 99 - Studies Microbiology Data (last 24 hrs): 02/14/22 13:10 Catheterized Urine [place] Count - Final >100,000 CFU/ML. 02/14/22 13:10 Catheterized Urine - Final Escherichia Coli 02/14/22 14:53 Blood - Blood Anaerobic Blood Culture - Final 02/14/22 12:24 Blood - Blood Anaerobic Blood Culture - Final Assessment And Plan - Current Problems (Diagnosis) (1) Acute cystitis without hematuria Current Visit: Yes Status: Acute (2) History of ESBL E. 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 Sclerae nonicteric Neck: Supple, JVD not distended Respiratory: Clear to auscultation bilaterally, Normal air movement Cardiovascular: Regular rate/rhythm, Normal S1 S2, Trace bilateral lower extremity pedal edema. Gastrointestinal: Normal bowel sounds, Soft and benign, Non-distended, No tenderness Musculoskeletal: No swelling, No tenderness. Integumentary: No rashes, No erythema, No cyanosis Neurological: No focal motor deficit Renal function is improving slowly. Patient is hypernatremic and hyperchloremic today. IV normal saline switched to D5 half-normal saline. Continue to monitor BMP. Replete potassium as needed. Nephrology consult. Urine culture is growing E. coli sensitive to Rocephin. Switch antibiotics from meropenem to IV Rocephin. Blood culture shows no growth Monitor for agitation. Speech therapy consult for dysphagia. Bedside swallow evaluation. Patient with chronic troponin elevation. Elevated troponin likely secondary to demand ischemia. Troponin trended flat. No ACS.
[2022-02-16 15:37] VITALS: O2SAT 99
--- NOTE | 2022-02-16 15:38 | P.CNS ---
Date of Consult: 02/16/22 Reason for Consult: AMBAR Requesting Physician: phoenix benito Chief Complaint: Altered mental status History of Present Illness: 76-year-old woman with a history of advanced dementia was transferred from the residential to the emergency department because patient has been less interactive with a concern for altered mental status. She had previous admissions for UTI. No reported fever or diarrhea or nausea or vomiting. UA done in the emergency department demonstrated UTI. Patient with AMBAR likely secondary to dehydration. She has advanced dementia and AMS, and not able to provide history. She has mild leukocytosis. Chest x-ray and head CT shows no acute disease. Patient is hospitalized for further management. 09:16 This 76 yrs old Female presents to ER via EMS with complaints of Altered jmm Mental Status. 09:16 The patient presents with decreased responsiveness. Onset: The symptoms/episode jmm began/occurred yesterday. Possible causes: unknown. Associated signs and symptoms: Pertinent negatives: shortness of breath. This is a 76 year old female with a history of schizophrenia, parkinsons, hlp that presents to the ED with decreased responsiveness per residential. Patient choked on a pill yesterday when it began. Similar episodes have occurred in the past per family. . Allergies No Known Allergies Allergy (Verified 02/15/22 07:58) Home medications list reviewed: Yes Home Medications: Donepezil HCl 10 mg PO BEDTIME 10/18/19 Levothyroxine Sodium 25 mcg PO 0630 10/18/19 Memantine HCl 10 mg PO BID 10/18/19 Ondansetron [Ondansetron Odt] 4 mg PO Q8H PRN 10/18/19 Topiramate 100 mg PO BID 10/18/19 Calcitrol [Rocaltrol*] 0.5 mcg PO DAILY #30 cap 02/22/20 ARIPiprazole [Abilify*] 5 mg PO DAILY 08/19/21 Aspirin 81 mg PO DAILY 08/19/21 Atorvastatin Calcium [Lipitor*] 20 mg PO DAILY 08/19/21 Docusate [Colace Cap*] 100 mg PO BID 08/19/21 Hydralazine [Apresoline*] 50 mg PO TID 08/19/21 Meloxicam [Mobic*] 15 mg PO DAILY 08/19/21 Pantoprazole [Protonix Tab*] 40 mg PO DAILY 08/19/21 Propranolol [Inderal*] 40 mg PO DAILY 08/19/21 Trazodone [Desyrel*] 50 mg PO BEDTIME 08/19/21 Divalproex Sodium [Depakote Sprinkle] 250 mg PO BID 12/06/21 Duloxetine HCl [Drizalma Sprinkle] 60 mg PO ONCE 12/06/21 Acetaminophen [Tylenol] 650 mg PO Q6HP PRN 02/15/22 Arginine/Ascorbate Sod/Karla AC [Arginaid Powder] 1 each PO BID 02/15/22 Ascorbic Acid [Vitamin C*] 500 mg PO BID 02/15/22 Codeine/APAP [Tylenol W/Codeine #3 tab] 1 tab PO Q6HP PRN 02/15/22 Fluocinonide/Emollient Base [Fluocinonide-E 0.05% Cream] 1 % TOP QID 02/15/22 Multivitamin with Minerals [Multivitamins with Minerals] 1 tab PO DAILY 02/15/22 Protein Supplement [Promod] 30 ml PO BID 02/15/22 - Past Medical/Surgical History Diabetic: No -: Bipolar disorder -: Schizoaffective disorder -: COPD -: Chronic renal disease -: Hypertension -: Hypothyroidism -: Hyperlipidemia -: Dementia -: Chronic pain with neuropathy -: CKD (Dr. Fernando) -: Complete hysterectomy -: sb knee replacement Psychosocial/ Personal History: Patient currently lives at [facility]. - Family History Mother Medical History: Heart disease, Lung disease Notes: COPD Father Medical History: Heart disease, Diabetes Notes: quadruple bypass - Social History Smoking Status: Unknown if ever smoked Alcohol use: No CD- Drugs: No Caffeine use: Yes Place of Residence: [facility] Review of Systems 10-point ROS is otherwise unremarkable General: Weakness, Malaise Physical Examination Temp Pulse Resp BP Pulse Ox 98.1 F 88 18 122/55 L 99 02/16/22 14:12 02/16/22 14:12 02/16/22 14:12 02/16/22 14:12 02/16/22 14:12 General: In no apparent distress, Cooperative HEENT: Atraumatic Neck: Supple Respiratory: Normal air movement Cardiovascular: No edema, Regular rate/rhythm Gastrointestinal: Soft and benign, Non-distended Musculoskeletal: No clubbing, No contractures Integumentary: No rashes, No cyanosis Neurological: Abnormal speech Blood work reviewed in the chart. Imagings Data: EXAM DESCRIPTION: Zack Single View02/14/2022 9:32 am CLINICAL HISTORY: cough COMPARISON: December 2021 FINDINGS: The lungs appear clear of acute infiltrate. The heart is normal size IMPRESSION: No acute abnormalities displayed Conclusions/Impression: AMBAR likely due to hypovolemia Proteinuria -No NSAIDs -Change IVF to D5W Hypernatremia -Change IVF to D5W Hypokalemia -Replete prn Hypercalcemia -Hold Calcitriol -Continue IVF HypoPO4 -Replete prn -Encourage nutrition Moderate malnutrition with anorexia -Encourage nutrition Anemia in chronic illness Thrombocytopenia -Monitor H&H Thank you kindly for the referral.
[2022-02-16 17:40] LABS: Potassium 4.2 mmol/L (3.5-5.1)
[2022-02-16] MEDS: TRAZODONE 50 MG TABLET PO SCH (21:00)
[2022-02-16] MEDS: DONEPEZIL HCL 5 MG TAB PO SCH (21:00)
[2022-02-16] MEDS: D5W 1,000 ML IV SCH (21:37)
[2022-02-17 05:58] LABS: Absolute Lymphocytes (CBC) 0.7 K/uL (0.7-4.9); Hematocrit 22.4 % (36.0-45.0); Lymphocytes % 24.5 % (15.3-44.8); MCV 94.8 fL (80-100); MPV 8.6 fL (7.6-11.3); RBC Red Blood Cell Count 2.36 M/uL (3.86-4.86)
[2022-02-17] MEDS: D5W 1,000 ML IV SCH ×3 (06:00→20:50)
[2022-02-17] MEDS: LEVOTHYROXINE SOD 0.025 MG TAB PO SCH (06:03)
[2022-02-17 06:17] LABS: Magnesium 1.6 mg/dL (1.8-2.4); Phosphorus 2.4 mg/dL (2.5-4.9); Uric Acid 8.3 mg/dL (2.6-6.0)
--- NOTE | 2022-02-17 06:23 | P.PN ---
Date of Service: 02/17/22 Subjective: feeling better this morning had some difficulty swallowing yesterday more alert /oriented today thirsty ROS: 10 point ROS as noted above, otherwise negative Physical exam GEN: Alert, oriented x2, NAD HEENT: Normal conjunctiva, sclera anicteric CV: Regular rate and rhythm, trace bilateral pedal edema Pulm: Nonlabored respirations on room air ABD: Soft, nontender, nondistended Integumentary: No rashes Neuro: Normal speech, normal affect Problem List Acute cystitis without hematuria History of ESBL E. 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 coli, sensitivities reviewed Blood cultures without growth last fever 02/15 continues with hypernatremia, hyperchloremia Nephrology consulted IVF changed to d5w yesterday, continue speech therapy for dysphagia today doing better, advanced diet chronic troponin elevation, most likely secondary to demand ischemia VTE: heparin subq Code: full Dispo: [facility], ~2 days Time Spent Managing Pts Care (In Minutes): 35
[2022-02-17] MEDS ORDERED: MAGNESIUM SULFATE 1 gm IVPB 1 GM/100 ML BAG IV ONE (07:00)
[2022-02-17 07:01] LABS: Specific Gravity 1.015 (1.005-1.030); Urine Bilirubin Negative (Negative); Urine Blood 2+ (Negative); Urine Color Yellow (Yellow); Urine Glucose Negative (Negative); Urine Protein 1+ (Negative); Urine Urobilinogen 0.2 mg/dL (0.2-1.0)
[2022-02-17 07:02] LABS: Urine Clarity Cloudy (Clear)
[2022-02-17 07:08] LABS: UR PROTEIN 72.7 mg/dL (<11.9); Urine Protein/Creatinine Ratio 2.14 ratio (<0.15)
[2022-02-17 07:40] LABS: Urine Bacteria >50 /HPF (<20)
[2022-02-17 07:41] LABS: Urine Mucus 2+ /HPF (None Seen)
[2022-02-17] MEDS: VITE AC PO SCH ×2 (09:00→21:00)
[2022-02-17] MEDS ORDERED: POTASSIUM PHOS IN 0.9 % NACL 15 MMOL/250 ML BAG IV ONE (09:00)
[2022-02-17] MEDS: ARGININE PO SCH ×2 (09:00→21:00)
[2022-02-17] MEDS: ASCORBATE SOD PO SCH ×2 (09:00→21:00)
[2022-02-17] MEDS: FLUOCINONIDE TOP SCH ×4 (09:00→21:00)
[2022-02-17] MEDS: HOME MED 1 EA UNK (Protein Supplement [Promod] 946 ML Liquid) PO SCH ×2 (09:00→21:00)
[2022-02-17] MEDS: [UNRECOGNIZED DRUG - OTHER] TOP SCH ×4 (09:00→21:00)
[2022-02-17] MEDS: DIVALPROEX NA 125 MG CAP PO SCH ×2 (10:27→20:51)
[2022-02-17] MEDS: PROPRANOLOL HCL 40 MG TAB PO SCH (10:28)
[2022-02-17] MEDS: PANTOPRAZOLE 40MG TABLET PO SCH (10:28)
[2022-02-17] MEDS: ATORVASTATIN 20 MG TAB PO SCH (10:28)
[2022-02-17] MEDS: MULTIVIT W/ MINERAL TAB PO SCH (10:28)
[2022-02-17] MEDS: HYDRALAZINE HCL 25 MG TABLET PO SCH ×3 (10:29→20:52)
[2022-02-17] MEDS: ASPIRIN 81 MG CHEWABLE TABLET PO SCH (10:29)
[2022-02-17] MEDS: ASCORBIC ACID 500 MG TABLET PO SCH ×2 (10:29→20:52)
[2022-02-17] MEDS: MEMANTINE HCL 10 MG TABLET PO SCH ×2 (10:29→20:52)
[2022-02-17] MEDS: ARIPiprazole 5 MG TAB PO SCH (10:29)
[2022-02-17] MEDS: Meropenem 1,000 MG in NA CHLORIDE 0.9% 100 ML IV SCH ×2 (10:30→21:14)
[2022-02-17] MEDS: DOCUSATE NA 100 MG CAP PO SCH ×2 (10:30→20:52)
[2022-02-17] MEDS: CODEINE 30MG/APAP 300MG TAB PO PRN (10:35)
[2022-02-17] MEDS: TOPIRAMATE 100 MG TAB PO SCH ×2 (10:35→20:51)
[2022-02-17 10:55] LABS: Hematocrit 26.3 % (36.0-45.0); MCV 95.3 fL (80-100); MPV 8.5 fL (7.6-11.3); RBC Red Blood Cell Count 2.76 M/uL (3.86-4.86)
--- NOTE | 2022-02-17 19:42 | P.PN ---
Date of Service: 02/17/22 Vital Signs Temp Pulse Resp BP Pulse Ox 97.8 F 65 16 118/59 L 97 02/17/22 16:00 02/17/22 16:00 02/17/22 16:00 02/17/22 16:00 02/17/22 16:00 Medications Acetaminophen (Acetaminophen 650mg/Rect Supp) 650 mg FL Q6HP PRN PRN Reason: TEMP > 100' F Last Admin: 02/15/22 02:20 Dose: 650 mg Acetaminophen/Codeine Phosphate (Codeine 30mg/Apap 300mg Tab) 1 tab PO Q6HP PRN PRN Reason: PAIN Last Admin: 02/17/22 10:35 Dose: 1 tab Aripiprazole (Aripiprazole 5 Mg Tab) 5 mg PO DAILY [facility] Last Admin: 02/17/22 10:29 Dose: 5 mg Ascorbic Acid (Ascorbic Acid 500 Mg Tablet) 500 mg PO BID [facility] Last Admin: 02/17/22 10:29 Dose: 500 mg Aspirin (Aspirin 81 Mg Chewable Tablet) 81 mg PO DAILY [facility] Last Admin: 02/17/22 10:29 Dose: 81 mg Atorvastatin Calcium (Atorvastatin 20 Mg Tab) 20 mg PO DAILY [facility] Last Admin: 02/17/22 10:28 Dose: 20 mg Divalproex Sodium (Divalproex Na 125 Mg Cap) 250 mg PO BID [facility] Last Admin: 02/17/22 10:27 Dose: 250 mg Docusate Sodium (Docusate Na 100 Mg Cap) 100 mg PO BID [facility] Last Admin: 02/17/22 10:30 Dose: 100 mg Donepezil HCl (Donepezil Hcl 5 Mg Tab) 10 mg PO BEDTIME [facility] Last Admin: 02/16/22 21:00 Dose: Not Given Heparin Sodium (Porcine) (Heparin 5000 Unit/Ml 1 Ml Vial) 5,000 unit SQ Q8HR [facility] Last Admin: 02/15/22 10:51 Dose: 5,000 unit Home Med (Arginine/Ascorbate Sod/Karla Ac [Arginaid Powder]) 1 each PO BID [facility] Last Admin: 02/17/22 09:00 Dose: Not Given Home Med (Fluocinonide/Emollient Base [Fluocinonide-E 0.05% Cream]) 1 % TOP QID [facility] Last Admin: 02/17/22 17:00 Dose: Not Given Home Med (Protein Supplement [Promod]) 30 ml PO BID [facility] Last Admin: 02/17/22 09:00 Dose: Not Given Hydralazine HCl (Hydralazine Hcl 25 Mg Tablet) 50 mg PO TID [facility] Last Admin: 02/17/22 14:30 Dose: 50 mg Meropenem 1,000 mg/ Sodium (Chloride) 100 mls @ 200 mls/hr IV Q12HR [facility] Last Admin: 02/17/22 10:30 Dose: 100 mls Dextrose/Water (Dextrose In Water (1-Liter)) 1,000 mls @ 100 mls/hr IV .Q10H [facility] Last Admin: 02/17/22 16:00 Dose: Not Given Levothyroxine Sodium (Levothyroxine Sod 0.025 Mg Tab) 0.025 mg PO 0630 [facility] Last Admin: 02/17/22 06:03 Dose: Not Given Memantine (Memantine Hcl 10 Mg Tablet) 10 mg PO BID [facility] Last Admin: 02/17/22 10:29 Dose: 10 mg Multivitamins/Minerals (Multivit W/ Mineral Tab) 1 tab PO DAILY [facility] Last Admin: 02/17/22 10:28 Dose: 1 tab Ondansetron HCl (Ondansetron 4 Mg/2 Ml Vial) 4 mg IV Q6HP PRN PRN Reason: NAUSEA / VOMITING Last Admin: 02/17/22 14:33 Dose: 4 mg Pantoprazole Sodium (Pantoprazole 40mg Tablet) 40 mg PO DAILY [facility]; Protocol Last Admin: 02/17/22 10:28 Dose: 40 mg Propranolol HCl (Propranolol Hcl 40 Mg Tab) 40 mg PO DAILY [facility] Last Admin: 02/17/22 10:28 Dose: 40 mg Sodium Chloride (Flush Normal Saline 10 Ml) 10 ml IV BID [facility] Last Admin: 02/17/22 09:00 Dose: Not Given Topiramate (Topiramate 100 Mg Tab) 100 mg PO BID [facility] Last Admin: 02/17/22 10:35 Dose: 100 mg Trazodone HCl (Trazodone 50 Mg Tablet) 50 mg PO BEDTIME [facility] Last Admin: 02/16/22 21:00 Dose: Not Given Microbiology Results 02/14/22 13:10 Catheterized Urine Brunson Count - Final >100,000 CFU/ML. 02/14/22 13:10 Catheterized Urine - Final Escherichia Coli 02/14/22 14:53 Blood - Blood Aerobic Blood Culture - Preliminary No growth in 24 hours. 02/14/22 14:53 Blood - Blood Anaerobic Blood Culture - Final 02/14/22 12:24 Blood - Blood Aerobic Blood Culture - Preliminary No growth in 24 hours. 02/14/22 12:24 Blood - Blood Anaerobic Blood Culture - Final 02/14/22 10:50 Nasopharnyx Influenza Type A Antigen Screen - Final 02/14/22 10:50 Nasopharnyx Influenza Type B Antigen Screen - Final Assessment/ Plan: Nephrology No dyspnea No chest pain No acute events overnight Vitals, medications, blood work and imaging reviewed in the chart General: In no apparent distress, Cooperative HEENT: Atraumatic Neck: Supple Respiratory: Normal air movement Cardiovascular: No edema, Regular rate/rhythm Gastrointestinal: Soft and benign, Non-distended Musculoskeletal: No clubbing, No contractures Integumentary: No rashes, No cyanosis Neurological: Abnormal speech Blood work reviewed in the chart. Imagings Data: EXAM DESCRIPTION: Zack Single View02/14/2022 9:32 am CLINICAL HISTORY: cough COMPARISON: December 2021 FINDINGS: The lungs appear clear of acute infiltrate. The heart is normal size IMPRESSION: No acute abnormalities displayed Conclusions/Impression: AMBAR likely due to hypovolemia Proteinuria -No NSAIDs -Continue IVF to D5W Hypernatremia -Continue IVF to D5W Hypokalemia -Replete prn Hypercalcemia -Hold Calcitriol -Continue IVF HypoPO4 -Replete prn -Encourage nutrition Moderate malnutrition with anorexia -Encourage nutrition Anemia in chronic illness Pancytopenia -Monitor CBC Acute infective cystitis with toxic metabolic encephalopathy -Continue Meropenem
[2022-02-17] MEDS: DONEPEZIL HCL 5 MG TAB PO SCH (20:51)
[2022-02-17] MEDS: TRAZODONE 50 MG TABLET PO SCH (20:52)
--- NOTE | 2022-02-18 06:18 | P.PN ---
Date of Service: 02/18/22 Subjective: no acute events overnight reports feeling "ok" not eating much no abdominal tenderness, no nausea/vomiting ROS: 10 point ROS as noted above, otherwise negative Physical exam GEN: Alert, oriented x2, NAD HEENT: Normal conjunctiva, sclera anicteric CV: Regular rate and rhythm, trace bilateral pedal edema Pulm: Nonlabored respirations on room air ABD: Soft, nontender, nondistended Neuro: Normal speech, normal affect Problem List Acute cystitis without hematuria History of ESBL E. 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 coli, sensitivities reviewed Blood cultures without growth last fever 02/15 continues with hypernatremia, hyperchloremia Nephrology consulted IVF changed to d5w yesterday, dc today; hypernatremia resolved speech therapy for dysphagia doing better, advanced diet continue PT chronic troponin elevation, most likely secondary to demand ischemia VTE: heparin subq Code: full Dispo: back to assisted, ~1-2 days Time Spent Managing Pts Care (In Minutes): 35
[2022-02-18] MEDS: LEVOTHYROXINE SOD 0.025 MG TAB PO SCH (06:23)
[2022-02-18] MEDS: D5W 1,000 ML IV SCH (06:24)
[2022-02-18 06:33] LABS: Albumin 1.8 g/dL (3.4-5.0); Bilirubin Total 0.3 mg/dL (0.2-1.0); Magnesium 1.5 mg/dL (1.8-2.4); Potassium 4.2 mmol/L (3.5-5.1); Protein, Total 4.9 g/dL (6.4-8.2)
[2022-02-18] MEDS: ARGININE PO SCH ×2 (09:00→21:00)
[2022-02-18] MEDS: FLUOCINONIDE TOP SCH ×3 (09:00→21:00)
[2022-02-18] MEDS: ASCORBATE SOD PO SCH ×2 (09:00→21:00)
[2022-02-18] MEDS: VITE AC PO SCH ×2 (09:00→21:00)
[2022-02-18] MEDS: HOME MED 1 EA UNK (Protein Supplement [Promod] 946 ML Liquid) PO SCH ×2 (09:00→21:00)
[2022-02-18] MEDS: [UNRECOGNIZED DRUG - OTHER] TOP SCH ×3 (09:00→21:00)
[2022-02-18] MEDS ORDERED: Magnesium Sulfate 2gm IVPB 2 G/50 ML BAG IV ONE (10:10)
--- NOTE | 2022-02-18 10:18 | P.PN ---
Date of Service: 02/18/22 Nephrology note: (S) Pt awake and responsive but remains confused, there is a breakfast tray infront of her but appears untouched although pt states she is taking in some fluids. No other acute complaints. (o) Vitals, medications, blood work and imaging reviewed in the chart General: In no apparent distress, Cooperative HEENT: Atraumatic Neck: Supple Respiratory: Normal air movement Cardiovascular: No edema, Regular rate/rhythm Gastrointestinal: Soft and benign, Non-distended Musculoskeletal: No clubbing, No contractures, shins are mildly tender to pal pation Integumentary: No rashes, No cyanosis Neurological: Awake, tracks movement, responds to questions but not oriented to place or time. Non focal Conclusions/Impression: 1. Stage II AMBAR 2nd to volume depletion, relative hypotension and NSAIDs (Mobic listed among home meds) -Cr level has trended lower, cont to monitor closely 2. Hypernatremia -Resolved, will d/c D5W IVF and encourage/monitor PO intake 3. Acute infective cystitis with Ecoli toxic metabolic encephalopathy -Repeat UA still with pyuria and microscopic hematuria, pt has completed several days of Meropenem, will defer to primary team to consider switching to PO fluoroquinolone and extending course. Will d/c mayberry. If pt has recurrent UTIs, tract imaging should be done to assess for any nidus for infection. 4. Chronic HTN -BP on the lower end at times, cont to hold Hydralazine, avoid relative hypotension Cas Castaneda MD, [facility]
[2022-02-18] MEDS: Meropenem 1,000 MG in NA CHLORIDE 0.9% 100 ML IV SCH (10:30)
[2022-02-18] MEDS: ASCORBIC ACID 500 MG TABLET PO SCH ×2 (10:53→22:57)
[2022-02-18] MEDS: ATORVASTATIN 20 MG TAB PO SCH (10:53)
[2022-02-18] MEDS: ASPIRIN 81 MG CHEWABLE TABLET PO SCH (10:53)
[2022-02-18] MEDS: ARIPiprazole 5 MG TAB PO SCH (10:53)
[2022-02-18] MEDS: MULTIVIT W/ MINERAL TAB PO SCH (10:53)
[2022-02-18] MEDS: PANTOPRAZOLE 40MG TABLET PO SCH (10:54)
[2022-02-18] MEDS: PROPRANOLOL HCL 40 MG TAB PO SCH (10:54)
[2022-02-18] MEDS: TOPIRAMATE 100 MG TAB PO SCH ×2 (10:54→22:57)
[2022-02-18] MEDS: DOCUSATE NA 100 MG CAP PO SCH ×2 (10:55→22:57)
[2022-02-18] MEDS: DIVALPROEX NA 125 MG CAP PO SCH ×2 (10:55→22:57)
[2022-02-18] MEDS: MEMANTINE HCL 10 MG TABLET PO SCH ×2 (10:56→22:57)
[2022-02-18] MEDS ORDERED: levoFLOXacin 750 MG TAB PO SCH (13:00)
[2022-02-18] MEDS: CODEINE 30MG/APAP 300MG TAB PO PRN (18:25)
[2022-02-18] MEDS: TRAZODONE 50 MG TABLET PO SCH (22:57)
[2022-02-18] MEDS: DONEPEZIL HCL 5 MG TAB PO SCH (22:57)
[2022-02-18] MEDS: JUVEN PACKET PO SCH (22:58)
[2022-02-18] MEDS: ENSURE ENLIVE 237 ML CAN PO SCH (22:58)
[2022-02-19 05:46] LABS: MCV 94.3 fL (80-100); MPV 8.6 fL (7.6-11.3); RBC Red Blood Cell Count 2.65 M/uL (3.86-4.86)
[2022-02-19 05:49] LABS: Magnesium 1.7 mg/dL (1.8-2.4); Potassium 4.2 mmol/L (3.5-5.1)
[2022-02-19] MEDS: LEVOTHYROXINE SOD 0.025 MG TAB PO SCH (06:07)
[2022-02-19] MEDS: HOME MED 1 EA UNK (Protein Supplement [Promod] 946 ML Liquid) PO SCH ×2 (09:00→20:59)
[2022-02-19] MEDS: VITE AC PO SCH ×2 (09:00→20:58)
[2022-02-19] MEDS: ARGININE PO SCH ×2 (09:00→20:58)
[2022-02-19] MEDS: [UNRECOGNIZED DRUG - OTHER] TOP SCH ×2 (09:00→20:58)
[2022-02-19] MEDS: ASCORBATE SOD PO SCH ×2 (09:00→20:58)
[2022-02-19] MEDS: FLUOCINONIDE TOP SCH ×2 (09:00→20:58)
[2022-02-19] MEDS ORDERED: MAGNESIUM SULFATE 1 gm IVPB 1 GM/100 ML BAG IV ONE (09:00)
[2022-02-19] MEDS: DIVALPROEX NA 125 MG CAP PO SCH ×2 (10:11→20:58)
[2022-02-19] MEDS: ARIPiprazole 5 MG TAB PO SCH (10:12)
[2022-02-19] MEDS: DOCUSATE NA 100 MG CAP PO SCH ×2 (10:12→20:58)
[2022-02-19] MEDS: TOPIRAMATE 100 MG TAB PO SCH ×2 (10:12→20:58)
[2022-02-19] MEDS: ASPIRIN 81 MG CHEWABLE TABLET PO SCH (10:12)
[2022-02-19] MEDS: PROPRANOLOL HCL 40 MG TAB PO SCH (10:12)
[2022-02-19] MEDS: MEMANTINE HCL 10 MG TABLET PO SCH ×2 (10:12→20:58)
[2022-02-19] MEDS: ASCORBIC ACID 500 MG TABLET PO SCH ×2 (10:13→20:58)
[2022-02-19] MEDS: MULTIVIT W/ MINERAL TAB PO SCH (10:13)
[2022-02-19] MEDS: PANTOPRAZOLE 40MG TABLET PO SCH (10:13)
[2022-02-19] MEDS: ENSURE ENLIVE 237 ML CAN PO SCH ×2 (10:17→20:59)
[2022-02-19] MEDS: JUVEN PACKET PO SCH ×2 (10:17→20:59)
[2022-02-19] MEDS: ATORVASTATIN 20 MG TAB PO SCH (10:23)
--- NOTE | 2022-02-19 11:57 | P.PN ---
Date of Service: 02/19/22 Nephrology note: (S) Pt seen resting comfortably, no acute complaints. Mayberry removed. Case discussed with Dr. Stevens, plan for discharge back to [place] (o) Vitals, medications, blood work and imaging reviewed in the chart General: In no apparent distress, Cooperative HEENT: Atraumatic Neck: Supple Respiratory: Normal air movement Cardiovascular: No edema, Regular rate/rhythm Gastrointestinal: Soft and benign, Non-distended Musculoskeletal: No clubbing, No contractures, shins are mildly tender to palpation Integumentary: No rashes, No cyanosis Neurological: Awake, tracks movement, responds to questions but not oriented to place or time. Non focal Conclusions/Impression: 1. Stage II AMBAR 2nd to volume depletion, relative hypotension and NSAIDs (Mobic listed among home meds) -Cr level has trended lower and plateaued, f/u as an OP. Avoid NSAIDs. 2. Hypernatremia -Resolved, did d/c D5W IVF and encourage/monitor PO intake 3. Acute infective cystitis with Ecoli toxic metabolic encephalopathy -Repeat UA still with pyuria and microscopic hematuria, pt has completed several days of Meropenem, will defer to primary team to consider switching to PO fluoroquinolone and extending course. Did d/c mayberry. If pt has recurrent UTIs, tract imaging should be done to assess for any nidus for infection. 4. Chronic HTN -BP prev on the lower end at times, cont to hold Hydralazine on discharge to avoid relative hypotension Cas Castaneda MD, [facility]
--- NOTE | 2022-02-19 18:17 | P.DS ---
Admission Date: 02/14/22 Discharge Date: 02/19/22 Disposition: TRANSFER TO HALF-WAY Discharge Condition: GOOD Reason for Admission: Altered mental status Consultations: Nephrology - Dr. Fernando, Dr. Castaneda Brief History of Present Illness: 76-year-old woman with a history of advanced dementia was transferred from the residential to the emergency department because patient has been less interactive with a concern for altered mental status. She had previous admissions for UTI. No reported fever or diarrhea or nausea or vomiting. UA done in the emergency department demonstrated UTI. Patient with AMBAR likely secondary to dehydration. She has advanced dementia and AMS, and not able to provide history. She has mild leukocytosis. Chest x-ray and head CT shows no acute disease. Patient is hospitalized for further management. Hospital Course: Problem List Acute cystitis without hematuria History of ESBL E. 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 She had improvement of her mentation and renal function back to her baseline with treatment. Urine grew E.coli, blood cultures were negative. She remained afebrile. Initially she had some difficulty swallowing, and was evaluated by speech therapy. This significantly improved as her mentation improved and her UTI was treated. Recommended to continue with pureed diet, follow up with speech therapy and advance as tolerated/recommended. Patient is discharged with 10 days of antibiotics. continue prior home medications. Deemed stable for discharge back to her residential. Patient reported generalized weakness and had decreased mobility secondary to her altered mentation / infection. Recommend continue physical therapy Physical exam GEN: Alert, oriented x2, NAD HEENT: Normal conjunctiva, sclera anicteric CV: Regular rate and rhythm, trace bilateral pedal edema Pulm: Nonlabored respirations on room air ABD: Soft, nontender, nondistended Neuro: Normal speech, normal affect, generalized weakness Vital Signs/Physical Exam: Temp Pulse Resp BP Pulse Ox 97.3 F 85 18 145/65 H 97 02/19/22 16:00 02/19/22 16:00 02/19/22 16:00 02/19/22 16:00 02/19/22 16:00 Laboratory Data at Discharge: WBC 4.00 K/uL (4.3-10.9) L D 02/19/22 05:20 Hgb 8.6 g/dL (12.0-15.0) L 02/19/22 05:20 Hct 25.0 % (36.0-45.0) L 02/19/22 05:20 Plt Count 87 K/uL (152-406) L 02/19/22 05:20 PT 12.4 SECONDS (9.5-12.5) 02/14/22 10:26 INR 1.12 02/14/22 10:26 Sodium 139 mmol/L (136-145) 02/19/22 05:20 Potassium 4.2 mmol/L (3.5-5.1) 02/19/22 05:20 BUN 29 mg/dL (7-18) H 02/19/22 05:20 Creatinine 1.59 mg/dL (0.55-1.3) H 02/19/22 05:20 Glucose 91 mg/dL (74-106) 02/19/22 05:20 Uric Acid 8.3 mg/dL (2.6-6.0) H 02/17/22 05:20 Phosphorus 2.4 mg/dL (2.5-4.9) L 02/17/22 05:20 Magnesium 1.7 mg/dL (1.8-2.4) L 02/19/22 05:20 Total Bilirubin 0.3 mg/dL (0.2-1.0) 02/18/22 05:58 AST 53 U/L (15-37) H 02/18/22 05:58 ALT 26 U/L (12-78) 02/18/22 05:58 Alkaline Phosphatase 75 U/L (45-117) 02/18/22 05:58 Lipase 53 U/L (73-393) L 02/14/22 10:26 Home Medications: Donepezil HCl 10 mg PO BEDTIME 10/18/19 Levothyroxine Sodium 25 mcg PO 0630 10/18/19 Memantine HCl 10 mg PO BID 10/18/19 Ondansetron [Ondansetron Odt] 4 mg PO Q8H PRN 10/18/19 Topiramate 100 mg PO BID 10/18/19 Calcitrol [Rocaltrol*] 0.5 mcg PO DAILY #30 cap 02/22/20 ARIPiprazole [Abilify*] 5 mg PO DAILY 08/19/21 Aspirin 81 mg PO DAILY 08/19/21 Atorvastatin Calcium [Lipitor*] 20 mg PO DAILY 08/19/21 Docusate [Colace Cap*] 100 mg PO BID 08/19/21 Hydralazine [Apresoline*] 50 mg PO TID 08/19/21 Meloxicam [Mobic*] 15 mg PO DAILY 08/19/21 Pantoprazole [Protonix Tab*] 40 mg PO DAILY 08/19/21 Propranolol [Inderal*] 40 mg PO DAILY 08/19/21 Trazodone [Desyrel*] 50 mg PO BEDTIME 08/19/21 Divalproex Sodium [Depakote Sprinkle] 250 mg PO BID 12/06/21 Duloxetine HCl [Drizalma Sprinkle] 60 mg PO ONCE 12/06/21 Acetaminophen [Tylenol] 650 mg PO Q6HP PRN 02/15/22 Arginine/Ascorbate Sod/Karla AC [Arginaid Powder] 1 each PO BID 02/15/22 Ascorbic Acid [Vitamin C*] 500 mg PO BID 02/15/22 Codeine/APAP [Tylenol #3*] 1 tab PO Q6HP PRN 02/15/22 Fluocinonide/Emollient Base [Fluocinonide-E 0.05% Cream] 1 % TOP QID 02/15/22 Multivitamin with Minerals [Multivitamins with Minerals] 1 tab PO DAILY 02/15/22 Protein Supplement [Promod] 30 ml PO BID 02/15/22 levoFLOXacin [Levaquin*] 500 mg PO Q48H 10 Days #5 tab 02/19/22 Physician Discharge Instructions: Patient was found to have confusion and mild acute renal failure secondary to dehydration and UTI. She had improvement of her mentation and renal function back to her baseline with treatment. Urine grew E.coli, blood cultures were negative. She remained afebrile. Initially she had some difficulty swallowing, and was evaluated by speech therapy. This significantly improved as her mentation improved and her UTI was treated. Recommended to continue with pureed diet, follow up with speech therapy and advance as tolerated/recommended. Patient is discharged with 10 days of antibiotics. continue prior home medications. Deemed stable for discharge back to her residential. Patient reported generalized weakness and had decreased mobility secondary to her altered mentation / infection. Recommend continue physical therapy Diet: pureed Followup: Srinivasa Enriquez, DO [Primary Care Provider] - Time spent managing pt's care (in minutes): 45
[2022-02-19] MEDS: TRAZODONE 50 MG TABLET PO SCH (20:58)
[2022-02-19] MEDS: DONEPEZIL HCL 5 MG TAB PO SCH (20:58)
[2022-02-20] MEDS: LEVOTHYROXINE SOD 0.025 MG TAB PO SCH (06:06)
[2022-02-20 06:18] VITALS: BP 114/48; TEMP 97.4
[2022-02-20] MEDS ORDERED: levoFLOXacin 500 MG TAB PO SCH (09:00)
--- NOTE | 2022-02-20 22:59 | P.PN ---
Date of Service: 02/20/22 Subjective: no acute events overnight stable dc held secondary to lack of transportation from facility ROS: 10 point ROS as noted above, otherwise negative Physical exam GEN: Alert, oriented x2, NAD HEENT: Normal conjunctiva, sclera anicteric CV: Regular rate and rhythm, trace bilateral pedal edema Pulm: Nonlabored respirations on room air ABD: Soft, nontender, nondistended Neuro: Normal speech, normal affect Problem List Acute cystitis without hematuria History of ESBL E. 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 coli, sensitivities reviewed Blood cultures without growth last fever 02/15 Nephrology consulted speech therapy for dysphagia doing better, advanced diet continue PT chronic troponin elevation, most likely secondary to demand ischemia VTE: heparin subq Code: full Dispo: [facility] today Time Spent Managing Pts Care (In Minutes): 35
== END 2022-02-20 08:08 | DRG 689 ==
LOC: ER 08:49 → ERHOLD 15:59 → 2ND 17:42
PROVIDERS: ADMIT Internal Medicine; ATTEND Hospitalist
DX: N30.00 Acute cystitis without hematuria (principal); G92.8 Other toxic encephalopathy; F03.91 Unspecified dementia, unspecified severity, with behavioral disturbance; N17.9 Acute kidney failure, unspecified; E87.0 Hyperosmolality and hypernatremia; E44.0 Moderate protein-calorie malnutrition; I12.9 Hypertensive chronic kidney disease with stage 1 through stage 4 chronic kidney disease, or unspecified chronic kidney disease; N18.9 Chronic kidney disease, unspecified; E86.0 Dehydration; G20 Parkinson's disease; J44.9 Chronic obstructive pulmonary disease, unspecified; E03.9 Hypothyroidism, unspecified; E87.8 Other disorders of electrolyte and fluid balance, not elsewhere classified; E83.52 Hypercalcemia; E83.39 Other disorders of phosphorus metabolism; D69.6 Thrombocytopenia, unspecified; E87.6 Hypokalemia; E78.5 Hyperlipidemia, unspecified; D64.9 Anemia, unspecified; B96.20 Unspecified Escherichia coli [E. coli] as the cause of diseases classified elsewhere; R77.8 Other specified abnormalities of plasma proteins; R13.10 Dysphagia, unspecified; Z88.0 Allergy status to penicillin; Z88.5 Allergy status to narcotic agent; Z79.899 Other long term (current) drug therapy; Z68.37 Body mass index [BMI] 37.0-37.9, adult; Z79.82 Long term (current) use of aspirin; Z86.73 Personal history of transient ischemic attack (TIA), and cerebral infarction without residual deficits; Z86.718 Personal history of other venous thrombosis and embolism; Z79.890 Hormone replacement therapy; Z90.710 Acquired absence of both cervix and uterus; Z96.653 Presence of artificial knee joint, bilateral; Z20.822 Contact with and (suspected) exposure to COVID-19
CPT/HCPCS: 36415; 51702; 70450; 71045; 80048; 80053; 80076; 81001; 81003; 82570; 82947; 83605; 83690; 83735; 83880; 84100; 84132; 84156; 84484; 84550; 85025; 85027; 85610; 87040; 87077; 87086; 87088; 87186; 87804; 87811; 92610; 94760; 96365; 96366; 96375; 99284; J1644; J2185; J2405; J3475; J3480; J7030; J7042; U0003

== ENCOUNTER 2022-02-21 10:16 | Emergency (ER) | payer OTHER, BC ==
--- OUTSIDE RECORDS SUMMARY | 2022-02-21 10:24 | XMS REPORT | Continuity of Care Document ---
:1945 Author Organization [facility] t Address [address] [place] [address] Care Team Providers Name Role Phone Racquel CesarRadhaRafael Godfrey Primary Care Physician Nina Alegre Attending Clinician Unavailable MARGY BETANCOURT NATASHA Attending Clinician Unavailable [id number] Attending Clinician Unavailable Shay Douglas Attending Clinician Unavailable Krishna Slaughter MD Attending Clinician Doctor Unassigned, [place] Attending Clinician Unavailable Devika Lindquist Attending Clinician Unavailable Nel Canela Attending Clinician Unavailable Nicole Sorensen Attending Clinician Unavailable DEVIKA LINDQUIST Attending Clinician Unavailable Emelia Solano Attending Clinician Unavailable Zurdo Rondon Attending Clinician Unavailable MARGY BETANCOURT NATASHA Admitting Clinician Unavailable [id number] Admitting Clinician Unavailable Shay Douglas Admitting Clinician Unavailable Physician, No Primary or Family Admitting Clinician Unavaila Nicole Horan Admitting Clinician Unavailable KNOW, DOES_NOT Admitting Clinician Unavailable DEVIKA TOBIAS Admitting Clinician Unavailable Payers Payer Name Policy Type Policy Number Effective Date Expiration Date Nomi CALLE MCR [id number] BCTX BCTI [id number] Problems Condition Condition Condition Status Onset Resolution Last Treating Co mments Source Name Details Category Date Date Treatment Clinician Date UTI UTI Disease Active 2015-07 Univers (urinary (urinary 1-23 ity of tract tract 00:00: [place] infection) infection) 00 Me dical Branch Knee joint Knee joint Disease Active 2015-07 U nivers replacemen replacemen 0-13 it y of t status t status 00:00: [place] 00 Medical Branch Morbid Morbid Disease Active 2015-07 Univers obesity obesity 0-12 ity of 00:00: [place] 00 Medical Branch Pain Pain Disease Active 2015-07 Univers 0-12 ity of 00:00: [place] [id number] Medical Branch History of History of Disease Active U nivers DVT (deep DVT (deep ity of vein vein [place] thrombosis thrombosis Me dical ) ) Branch Hypertensi Hypertensi Disease Active U nivers on on [facility] Anemia Anemia Disease Active [facility] it[facility] Arthritis Arthritis Disease Active Uni vers it[facility] Chronic Chronic Disease Active Univers kidney kidney ity of disease disease [facility] Allergies, Adverse Reactions, Alerts Allergy Allergy Status Severity Reaction(s) Onset Inactive Treating Comm ents Source Name Type Date Date Clinician No Known DA Active U 2020-1 [facility] Allergie 0-04 Clear s 00:00: [place] 00 [facility] No Known DA Active U 2020-1 [facility] Allergie 0-04 Clear s 00:00: [place] 00 [facility] No Known DA Active U 2020-0 [facility] Allergie 2-20 [place] [facility] No Known DA Active U 2020-0 [facility] Allergie 2-20 [place] [facility] 00:[facility]: [facility] 00 [facility] [place] Social History Social Habit Start Date Stop Date Quantity Comments Source Exposure to 2021-11-03 2021-11-13 Not sure [facility] SARS-CoV-2 00:00:00 08:18:00 [facility] (event) Branch Alcohol intake 2021-11-13 2021-11-13 Current University of 00:00:00 00:00:00 non-drinker of [place] Medi tori alcohol Branch (finding) Tobacco Comment 2014-11-08 2014-11-08 denies smoking Unive rsity of 00:00:00 00:00:00 [facility] Sex Ass[birth year] At [birth year] Universit y of 00:00:00 00:00:00 [facility] Smoking Status Start Date Stop Date Source Never smoker [facility] Branch Medications Ordered Filled Start Stop Current Ordering Indication Dosage Frequency Signature Comments Components Source Medication Medication Date Date Medication? Clinician (SIG) Name Name Cipro Cipro 2020- No Na Alegre 1 tablet Com mon 03-17 Spirit 00:00: 00:00 - [facility] 00 :00 [facility] Santyl Santyl 2020- No Na Alegre 1 Commo n 01-07 applicatio Spirit 00:00: 00:00 n nickel - [facility] 00 :[address] [facility] Zofran Zofran 2019- Yes Na Alegre 1 tablet Co mmon 2-14 Spirit 00:00: - [facility] 00 [facility] Comp Air Comp Air 2019- Yes Na Alegre as Co mmon Compressor Compressor 2-13 directed Spirit Nebulizer Nebulizer 00:00: - C HI 00 [facility] Levothyroxi Levothyroxi 2019- Yes Na Alegre 1 tablet Common ne Sodium ne Sodium 0-24 in the Spi rit 00:00: morning on - [facility]I 00 an empty stomach [facility] Imitrex Imitrex 2019-0 Yes Na Alegre 1 tablet Common 9-30 as needed Spirit 00:00: - [facility] Flonase Flonase 2019-0 Yes Na Alegre 1 spray in Common 6-06 each Spirit 00:00: nostril - [facility] 00 [facility] Claritin Claritin 2019-0 Yes Na Alegre 1 tablet Common 6- Spirit 00:00: - [facility] 00 [facility] FOLIC 2015- Yes 1{tbl} Take 1 Univers ACID/MULTIV 1-30 tablet by ity of IT-MIN/LUTE 16:28: mouth [place] IN (CENTRUM 08 daily. Medica l SILVER Branch ORAL) MULTIVITAMI 2015- Yes 1{tbl} Take 1 Un nena N [...] 180 mg 08 daily. Medical tablet Branch ferrous 2015-07 Yes 325mg Take 1 Univers [...] Na Alegre 3 tablets Common Sodium Sodium [facility] Lisinopril Lisinopril Yes Na Alegre 1 tablet Common [facility] Carvedilol Carvedilol Yes Na Alegre 1 tablet Common [facility] Simethicone Simethicone Yes Na Alegre 1 tablet Common after Spirit meals and - CHI at bedtime as needed [facility] Furosemide Furosemide Yes Na Alegre TAKE 1 Common TABLET BY [facility] MOUTH - CHI EVERY DAY [facility] Duloxetine Duloxetine Yes Na Alegre 1 capsule Common HCl HCl [facility] Benadryl Benadryl Yes Na Alegre 1 tablet Common Allergy Allergy as needed Spir [facility] Metoprolol Metoprolol Yes Na Alegre TAKE 1 Common Succinate Succinate TABLET BY [facility] ER ER MOUTH - CHI TWICE St DAILY AT [facility] 6AM AND Medical 6PM Center Topiramate Topiramate Yes Na Alegre TAKE 1 Common TABLET BY Spirit MOUTH - CHI TWICE St DAILY [facility] Ipratropium Ipratropium Yes Na Alegre 3 ml Common -Albuterol -Albuterol Spi [facility] Calcium Calcium Yes Na Alegre 1 tab Commo n [facility] Carbamazepi Carbamazepi Yes Na Alegre 1 tablet Common ne ne [facility] BuPROPion BuPROPion Yes Na Alegre 1 tablet Common HCl ER (XL) HCl ER (XL) in [facility] Gabapentin Gabapentin Yes Na Alegre 1 tablet Common [facility] Levothyroxi Levothyroxi Yes Na Alegre 1 tablet Common ne Sodium ne Sodium on an Spir it empty - CHI stomach in [facility] Atorvastati Atorvastati Yes Na Alegre 1 tablet Common n Calcium n Calcium Spiri [facility] Diclofenac Diclofenac Yes Na Alegre 1 tablet Common Sodium Sodium with food [facility] or milk [facility] Donepezil Donepezil Yes Na Alegre 1 tablet Common HCl HCl at bedtime [facility] Protonix Protonix Yes Na Alegre 1 tablet Common [facility] Ondansetron Ondansetron Yes Na Alegre 1 tablet Common HCl HCl [facility] Oxybutynin Oxybutynin Yes Na Alegre 1 tablet Common Chloride ER [facility]loride [facility] F[facility] Folic Yes Na Alegre 1 tablet Common Acid-Vit Acid-Vit [facility] B6-Vit B12 B6-Vit B12 - C [facility] Memantine Memantine Yes Na Alegre 1 tablet Common HCl HCl [facility] Trazodone Trazodone Yes Na Alegre not Co mmon HCl HCl defined [facility] Imodium A-D Imodium A-D Yes Na Alegre 1 tablet Common as needed [facility] Melatonin Melatonin Yes Na Alegre 1 tablet Common at bedtime [facility] as needed - [facility] with food [facility] Vitamin D Vitamin D Yes Na Alegre 1 tablet Common [facility] Zantac Zantac Yes Na Alegre 1 tablet Comm on at bedtime [facility] Vital Signs Vital Name Observation Time Observation Value Comments Source Body height 2021-11-13 13:24:00 180.3 cm [facility] Body weight 2021-11-13 13:24:00 97.977 kg [facility] BMI 2021-11-13 13:24:00 30.13 kg/m2 [facility] Procedures Procedure Date / Time Performed Performing Clinician Sour e PHYSICIAN ORDERS 2021-11-13 05:01:00 Doctor Unassigned, No [facility] [id number] 2021-02-15 00:00:00 ENCPL [id number] 2021-02-15 00:00:00 ENCPL [id number] 2021-02-15 00:00:00 ENCPL [id number] 2021-02-15 00:00:00 ENCPL [id number] 2021-02-15 00:00:00 ENCPL [id number] 2021-02-15 00:00:00 ENCPL [id number] 2020-04-22 00:00:00 ENCPL [id number] 2020-04-22 00:00:00 ENCPL [id number] 2020-04-22 00:00:00 ENCPL [id number] 2020-04-22 00:00:00 ENCPL [id number] 2020-04-22 00:00:00 ENCPL [id number] 2020-04-22 00:00:00 ENCPL [id number] 2020-04-22 00:00:00 ENCPL [id number] 2020-04-22 00:00:00 ENCPL [id number] 2020-04-22 00:00:00 ENCPL [id number] 2020-04-22 00:00:00 ENCPL [id number] 2020-04-22 00:00:00 ENCPL [id number] 2020-04-22 00:00:00 ENCPL [id number] 2020-04-22 00:00:00 ENCPL [id number] 2020-04-22 00:00:00 ENCPL [id number] 2020-04-19 00:00:00 ENCPL [id number] 2020-04-19 00:00:00 ENCPL [id number] 2020-04-19 00:00:00 ENCPL [id number] 2020-04-19 00:00:00 ENCPL [id number] 2020-04-19 00:00:00 ENCPL [id number] 2020-04-19 00:00:00 ENCPL [id number] 2020-04-19 00:00:00 ENCPL [id number] 2020-04-19 00:00:00 ENCPL [id number] 2020-04-19 00:00:00 ENCPL [id number] 2020-04-19 00:00:00 ENCPL [id number] 2020-04-19 00:00:00 ENCPL [id number] 2020-04-19 00:00:00 ENCPL [id number] 2020-04-19 00:00:00 ENCPL [id number] 2020-04-19 00:00:00 ENCPL [id number] 2020-04-19 00:00:00 ENCPL [id number] 2020-04-10 00:00:00 BOKSY.01 [facility] [id number] 2020-04-07 00:00:00 CORAN.03 [facility] [id number] 2020-04-07 00:00:00 CORAN.03 [facility] Encounters Start End Encounter Admission Attending Care Care Encounter Source Date/Time Date/Time Type Type Clinicians Facility Department ID 2021-11-10 Outpatient Alegre, Na STLMLC STLMLC [id number] Common 08:48:02 [facility] 2021-11-04 Outpatient Alegre, Na STLMLC STLMLC [id number] 2 Common 15:10:00 [facility] 2021-11-03 Outpatient Alegre, Na STLMLC STLMLC [id number] Common 09:18:01 [facility] 2021-08-28 Outpatient 3 SERAFIN, ENCPL CVA ENCPL 08:35:14 MARGY 0224 2021-07-31 Outpatient 3 [id number] ENCPL REF ENCPL 12:37:26 0802 2021-07-31 Outpatient 3 [id number] ENCPL REF [id number] ENCPL 11:03:22 1124 2021-07-31 Outpatient 3 [id number] ENCPL REF [id number] ENCPL 10:46:27 1012 2021-07-31 Outpatient 3 [id number] ENCPL REF [id number] ENCPL 10:45:42 1009 2021-07-31 Outpatient 3 [id number] ENCPL REF [id number] ENCPL 10:42:01 0930 2021-07-31 Outpatient 3 [id number] ENCPL REF [id number] ENCPL 10:41:35 0929 2021-07-30 Outpatient Alegre, Na STLMLC STLMLC [id number] 2 Common 14:29:39 [facility] 2021-07-30 Outpatient Alegre, Na STLMLC STLMLC [id number] 2 Common 14:29:06 [facility] 2021-07-30 Outpatient Alegre, Na STLMLC STLMLC [id number] 2 Common 13:55:23 [id number] [facility] 2021-07-30 Outpatient Alegre, Na STLMLC STLMLC [id number] 2 Common 13:54:44 [id number] [facility] 2021-07-30 Outpatient Alegre, Na STLMLC STLMLC [id number] 2 Common 13:52:28 [id number] [facility] 2021-07-30 Outpatient Alegre, Na STLMLC STLMLC [id number] 2 Common 13:24:20 [id number] [facility] 2021-07-30 Outpatient Alegre, Na STLMLC STLMLC [id number] Common 13:20:59 [id number] [facility] 2021-07-30 Outpatient Alegre, Na STLMLC STLMLC [id number] 2 Common 13:20:20 [id number] [facility] 2021-07-30 Outpatient Alegre, Na STLMLC STLMLC [id number] 2 Common 13:19:53 [id number] [facility] 2021-07-30 Outpatient Alegre, Na STLMLC STLMLC [id number] 2 Common 13:02:26 17992 [facility] 2021-07-30 Outpatient Alegre, Na STLMLC STLMLC [id number] 2 Common 13:01:57 [id number] [facility] 2021-07-30 Outpatient Alegre, Na STLMLC STLMLC [id number] 2 Common 12:52:27 [id number] [facility] 2021-07-30 Outpatient Alegre, Na STLMLC STLMLC [id number] 2 Common 12:14:12 13923 [facility] 2021-07-30 Outpatient Alegre, Na STLMLC STLMLC [id number] 2 Common 12:00:44 [id number] [facility] 2021-07-30 Outpatient Alegre, Na STLMLC STLMLC [id number] 2 Common 11:58:07 [id number] [facility] 2021-07-30 Outpatient Alegre, Na STLMLC STLMLC [id number] 2 Common 11:57:28 06554 [facility] 2021-07-30 Outpatient Alegre, Na STLMLC STLMLC [id number] 2 Common 11:48:36 [id number] [facility] 2021-07-30 Outpatient Alegre, Na STLMLC STLMLC [id number] 2 Common 11:48:10 [id number] [facility] 2021-07-30 Outpatient Alegre, Na STLMLC STLMLC [id number] 2 Common 11:28:48 14994 [facility] 2021-07-30 Outpatient Alegre, Na STLMLC STLMLC [id number] 2 Common 11:28:22 [id number] [facility] 2020-04-07 Inpatient HCAPM CARRILLO [id number] [facility] 13:56:00 [id number] [facility] 2019-08-24 Inpatient EM Misael Shay HCATB ELIZABETH [id number] [facility] 18:16:00 [id number] [facility] are Vincent 2021-12-24 2021-12-24 ambulatory STLMLC STLMLC [id number] Common 00:00:00 00:00:00 [facility] 2021-12-24 2021-12-24 ambulatory STLMLC STLMLC [id number] Common 00:00:00 00:00:00 [facility] 2021-12-22 2021-12-22 ambulatory STLMLC STLMLC [id number] Common 00:00:00 00:00:00 [facility] 2021-12-09 2021-12-09 ambulatory STLMLC STLMLC [id number] Common 00:00:00 00:00:00 [facility] 2021-11-13 2021-11-13 Office NEHAL Slaughter [id number] Univers 08:30:00 08:56:54 Visit [facility] [id number] it y of EMILIAN[place] [id number] Daniel as SAUL?BLEA [id number] Me estevez [address] MEDICAL OFFICE BUILDING 2021-11-13 2021-11-13 Orders Doctor GENOVEVA [id number] Univers 00:00:00 00:00:00 Only Unassigned, SHONDA [id number] [facility] [place] [facility] [id number] Daniel as [phone] [address] 2021-10-27 2021-10-27 ambulatory STLMLC STLMLC [id number] Common 00:00:00 00:00:00 [facility] 2021-10-23 2021-10-23 ambulatory STLMLC STLMLC [id number] Common 00:00:00 00:00:00 [facility] 2021-09-12 2021-09-12 ambulatory STLMLC STLMLC [id number] Common 00:00:00 00:00:00 [facility] 2021-09-11 2021-09-11 ambulatory STLMLC STLMLC [id number] Common 00:00:00 00:00:00 [facility] 2021-08-30 2021-09-10 Inpatient 3 SERAFIN, ENCPL OTH [id number] ENCPL 15:16:00 11:00:00 MARGY Geovanny6 2021-07-28 2021-07-28 ambulatory STLMLC STLMLC [id number] Common 00:00:00 00:00:00 [facility] 2021-06-12 2021-06-12 ambulatory STLMLC STLMLC [id number] Common 00:00:00 00:00:00 [facility] 2021-05-22 2021-05-22 ambulatory STLMLC STLMLC [id number] Common 00:00:00 00:00:00 [facility] 2021-05-19 2021-05-19 ambulatory STLMLC STLMLC [id number] Common 00:00:00 00:00:00 [facility] 2021-04-04 2021-04-04 Outpatient STLMLC STLMLC [id number] Common 00:00:00 00:00:00 [facility] 2021-03-26 2021-03-26 Outpatient STLMLC STLMLC [id number] Common 00:00:00 00:00:00 [facility] 2021-03-12 2021-03-12 Outpatient STLMLC STLMLC [id number] Common 00:00:00 00:00:00 [facility] 2021-02-14 2021-02-14 Outpatient Ameena, HCAPM LABO [id number] [facility] 14:44:00 14:44:00 Devika [id number] [facility] 2021-02-14 2021-02-14 Outpatient Ameena, HCAPM LABO [id number] [facility] 14:44:00 14:44:00 Devika [id number] [facility] 2021-02-13 2021-02-13 Outpatient Hilton, HCAPM RADI [id number] [facility] 16:14:00 16:14:00 Nel [id number] [facility] 2021-02-13 2021-02-13 Outpatient Ameena, HCAPM LABO [id number] [facility] 13:32:00 13:32:00 Devika [id number] [facility] 2021-02-13 2021-02-13 Outpatient Ameena, HCAPM LABO [id number] [facility] 13:32:00 13:32:00 Devika [id number] [facility] 2021-02-12 2021-02-12 Outpatient Ameena, HCACL LABO [id number] [facility] 19:12:00 19:12:00 Devika [id number] [facility] 2021-02-12 2021-02-12 Outpatient Ameena, HCAPM LABO [id number] [facility] 11:17:00 11:17:00 Devika [id number] [facility] 2021-02-12 2021-02-12 Outpatient Ameena, HCAPM LABO [id number] [facility] 11:17:00 11:17:00 Devika [id number] [facility] 2021-02-11 2021-02-11 Outpatient Nicole Sorensen HCAPM RADI [id number] [facility] 22:28:00 22:28:00 [id number] [facility] 2021-02-05 2021-02-05 Outpatient Nicole Sorensen HCAPM RADI [id number] [facility] 13:47:00 13:47:00 [id number] [facility] 2021-02-04 2021-02-04 Outpatient STLMLC STLMLC [id number] Common 00:00:00 00:00:00 [facility] 2021-01-08 2021-01-08 Outpatient STLMLC STLMLC [id number] Common 00:00:00 00:00:00 [facility] 2021-01-01 2021-01-01 Outpatient STLMLC STLMLC [id number] Common 00:00:00 00:00:00 [facility] 2020-12-18 2020-12-18 Outpatient STLMLC STLMLC [id number] Common 00:00:00 00:00:00 [facility] 2020-10-15 2020-10-15 Outpatient STLMLC STLMLC [id number] Common 00:00:00 00:00:00 [facility] 2020-07-12 2020-07-12 Outpatient STLMLC STLMLC [id number] Common 00:00:00 00:00:00 [facility] 2020-06-11 2020-06-11 Outpatient AMEENA, HCAPM LABO [id number] [facility] 19:25:00 19:25:00 DEVIKA [id number] [facility] 2020-06-11 2020-06-11 Outpatient AMEENA, HCAPM LABO [id number] [facility] 19:25:00 19:25:00 DEVIKA [id number] [facility] 2020-06-10 2020-06-10 Outpatient AMEENA, HCAPM LABO [id number] [facility] 10:43:00 10:43:00 DEVIKA [id number] [facility] 2020-06-10 2020-06-10 Outpatient AMEENA, HCAPM LABO [id number] [facility] 10:43:00 10:43:00 DEVIKA [id number] [facility] 2020-06-09 2020-06-09 Outpatient AMEENA, HCAPM LABO [id number] [facility] 13:58:00 13:58:00 DEVIKA [facility] 2020-05-16 2020-05-16 Orders Doctor TOMAS [id number] 00:00:00 00:00:00 Only Unassigned, SHONDA [id number] [place] [facility] [id number] 2020-05-11 2020-05-11 Outpatient STLMLC STLMLC [id number] Common 00:00:00 00:00:00 [facility] 2020-05-09 2020-05-09 Outpatient STLMLC STLMLC [id number] Common 00:00:00 00:00:00 [facility] 2020-05-06 2020-05-06 Outpatient STLMLC STLMLC [id number] Common 00:00:00 00:00:00 [facility] 2020-04-26 2020-04-26 Outpatient AMEENA, HCAPM LABO [id number] [facility] 07:57:00 07:57:00 DEVIKA [id number] [facility] 2020-04-22 2020-04-22 Outpatient SERAFIN, HCAPM LABO [id number] [facility] 07:07:00 07:07:00 MARGY [id number] [facility] 2020-04-20 2020-04-20 Outpatient Ajtye, HCAPM LABO [id number] [facility] 16:40:00 16:40:00 Emelia [id number] [facility] 2020-04-20 2020-04-20 Outpatient Ajala, HCAPM LABO [id number] [facility] 16:40:00 16:40:00 Emelia [id number] [facility] 2020-04-19 2020-04-19 Outpatient Ajala, HCAPM LABO [id number] [facility] 12:15:00 12:15:00 Emelia [id number] [facility] 2020-04-08 2020-04-08 Outpatient Nela, HCACL LABO [id number] [facility] 00:10:00 00:10:00 Zurdo [id number] [facility] 2020-03-28 2020-03-28 Outpatient STLMLC STLMLC [id number] Common 00:00:00 00:00:00 [facility] 2020-03-17 2020-03-17 [facility] [id number] Common 15:04:00 15:04:[address] [facility] 2020-03-08 2020-03-08 [facility] [id number] Common 16:56:00 16:56:[address] [facility] 2020-02-09 2020-02-09 [facility] [id number] Common 16:59:00 16:59:[address] [facility] 2020-02-05 2020-02-05 [facility] [id number] Common 17:16:00 17:16:[address] [place] [address] [facility] 2020-01-23 2020-01-23 Out[facility] [id number] Common 10:32:00 10:32:[address] [place] [address] [facility] 2020-01-15 2020-01-15 [facility] [id number] Common 09:59:00 09:59:[address] [facility] 2020-01-10 2020-01-10 [facility] [id number] Common 14:25:00 14:25:[address] [facility] 2020-01-08 2020-01-08 Out[facility] [id number] Common 14:20:00 14:20:00 [address] [place] [address] [facility] 2020-01-07 2020-01-07 Out[facility] [id number] Common 19:54:00 19:54:[address] [facility] 2020-01-04 2020-01-04 [facility] [id number] Common 13:37:00 13:37:[address] [facility] 2019-09-13 2019-09-13 Out[facility] [id number] Common 09:14:00 09:14:00 [address] [facility] 2019-07-01 2019-07-01 Out[facility] [id number] Common 15:38:00 15:38:[address] [facility] 2019-06-27 2019-06-27 [facility] [id number] Common 10:00:00 10:00:00 [address] [place] [address] [facility] 2019-06-21 2019-06-21 Out[facility] [id number] Common 14:45:00 14:45:[address] [facility] 2019-06-16 2019-06-16 [facility] [id number] Common 15:42:00 15:42:[address] [address] [facility] 2019-06-14 2019-06-14 Out[facility] [id number] Common 10:40:00 10:40:00 [address] [place] [address] [facility] 2019-06-06 2019-06-06 [facility] [id number] Common 11:00:00 11:00:00 [address] [place] [address] [facility] 2019-06-05 2019-06-05 Out[facility] [id number] Common 16:47:00 16:47:00 [address] [place] [address] [facility] 2019-05-12 2019-05-12 Out[facility] [id number] Common 15:40:00 15:40:00 [address] [place] [address] [facility] 2019-04-27 2019-04-27 Out[facility] [id number] Common 16:10:00 16:10:[address] [place] [facility] 2019-04-27 2019-04-27 [facility] [id number] Common 11:20:00 11:20:00 [address] [place] [address] [facility] 2019-04-03 2019-04-03 [facility] [id number] Common 12:04:00 12:04:00 [address] [place] [address] [facility] 2019-03-28 2019-03-28 [facility]patient [facility] [id number] Common 13:40:00 13:40:00 [address] [place] [address] [facility] 2019-03-21 2019-03-21 [facility] [id number] Common 15:40:00 15:40:00 [address] [place] [address] [facility] 2019-03-14 2019-03-14 [facility] [id number] Common 13:13:00 13:13:[address] [address] [facility] 2019-03-13 2019-03-13 Outpatient [facility] [address] [id number] Common 14:00:00 14:00:[address] [facility] 2018-12-08 2018-12-08 Outpatient Anna Castillot 25 [address] Common 15:00:00 15:00:00 t [facility] Results Test Description Test Time Test [...] CA) 9.6 MG/DL 8.5-10.1 N BASIC METABOLIC [id number] 14:03:00 Test Item Value Reference Range Interpretation [...] CA) 9.0 MG/DL 8.5-10.1 N CBC W/AUTO [id number] 13:54:00 Test Item Value Reference Range Interpretation [...] = MDIFF) UA RFLX MICR CULT IF [id number] 11:59:00 Test Item Value Reference Range Interpretation [...] UACULT) Criteria UA RFLX MICR CULT IF [id number] 11:55:00 Test Item Value Reference Range Interpretation [...] code = UACULT) - CT HEAD/BRAIN W/O [id number] 23:15:00 [facility] 1945 Sex: F Name: MACRINA LAURENT [facility] : 1945 Age/S: 75 / F [address] Unit #: [id number] Loc: [place] [address] Phys: Nicole Sorensen MD Acct: [id number] Dis Date: Status: REG REF PHONE #: [phone] Exam Date: 02/11/2021 2250 FAX #: Reason: CVA, COPD, TIA EXAMS: CPT: [id number] CT HEAD/BRA IN W/O CONT 81432 DICTATION LOCATION: 8 HISTORY: Female, 75 years [...] So, RT(R) CTDI: DLP: Trnscb Date/Time: 02/11/2021 (2314) Bree Orig Print D/T: S: 02/11/2021 (698) PAGE 1 Signed Report- MRI BRAIN W/O [id number] 15:12:00 [facility] : 1945 Sex: F FAX:Nicole Cortes MD Camps: St: REG Name: LAURENT,MACRINA Hairston [facility] : 1945 Age/S: 75/F [address] Unit #: [id number] Loc: [place] [address] Phys: Nicole Sorensen MD Acct: [id number] Dis Date: Status: REG REF PHONE #: [phone] Exam Date: 02/05/2021 1442 FAX #: Reason: CVA EXAMS: CPT: [id number] BRAIN W/O CONTRAST 01787 B2 - MRI BRAIN W/O CONTRAST HISTORY: [...] Technologist: Morenita Orta, RT(R)(MR) Transcribed Date/Time/By: 02/05/2021 (734) :Ansley.VB7 Orig Print D/T: S: 02/05/2021 (6115) PAGE 1 Signed ReportCOVID 19 INHOUSE [id number] 19:52:00 Test Item Value Reference Range Interpretation Comments COVID 19 INHOUSE AG NEGATIVE Negative Per manu facturer, (test code = negative result s should [id number]) be treated aspr esumptive and, if inconsi [...] nicalsigns and symptoms co nsistent with COVID-19. [id number] 10:59:00 Test Item Value Reference Range Interpretation Comments AMMONIA (test code = AMM) 39 mcMOL/L 11-32 H CBC W/AUTO [id number] 14:34:00 Test Item Value Reference Range Interpretation [...] CRITERIA (test code = MDIFF) COMPREHENSIVE METABOLIC [id number] 14:33:00 Test Item Value Reference Range Interpretation [...] 45-117 N code = ALKP) CBC W/AUTO [id number] 08:08:00 Test Item Value Reference Range Interpretation [...] NO DIFF/SCN CRITERIA = MDIFF) CBC W/AUTO [id number] 07:20:00 Test Item Value Reference Range Interpretation [...] NO DIFF/SCN CRITERIA = MDIFF) CBC W/AUTO [id number] 06:15:00 Test Item Value Reference Range Interpretation [...] NO DIFF/SCN CRITERIA = MDIFF) CBC W/AUTO [id number] 16:46:00 Test Item Value Reference Range Interpretation [...] NO DIFF/SCN CRITERIA = MDIFF) CBC W/AUTO [id number] 12:23:00 Test Item Value Reference Range Interpretation [...] (test code NO DIFF/SCN CRITERIA = MDIFF) [id number] 15:11:00 Test Item Value Reference Range Interpretation Comments TRANSFERRRIN (test code 193 mg/dL 192-364 Perf ormed At: BN = TRANSF) [facility] [id number] ra Carlitos ZAMORA Ph:[phone] GLUCOSE BEDSIDE [id number] 13:01:00 Test Item Value Reference Range Interpretation Comments GLUCOSE BEDSIDE TESTING (test code 101 mg/dL 70-110 N = GLUBED) GLUCOSE BEDSIDE [id number] 08:35:00 Test Item Value Reference Range Interpretation Comments GLUCOSE BEDSIDE TESTING (test code 101 mg/dL 70-110 N = GLUBED) GLUCOSE BEDSIDE [id number] 19:42:00 Test Item Value Reference Range Interpretation Comments GLUCOSE BEDSIDE TESTING (test code = 93 mg/dL 70-110 N GLUBED) GLUCOSE BEDSIDE [id number] 16:13:00 Test Item Value Reference Range Interpretation Comments GLUCOSE BEDSIDE TESTING (test code = 96 mg/dL 70-110 N GLUBED) GLUCOSE BEDSIDE [id number] 12:55:00 Test Item Value Reference Range Interpretation Comments GLUCOSE BEDSIDE TESTING (test code 104 mg/dL 70-110 N = GLUBED) CBC W/AUTO [id number] 12:42:00 Test Item Value Reference Range Interpretation [...] 35 % calc 12-57 N FESAT) VITAMIN [id number] 08:58:00 Test Item Value Reference Range Interpretation Comments VITAMIN B12 (test code = VITB12) 479 PG/ML 183-986 N FOLIC [id number] 08:58:00 Test Item Value Reference Range Interpretation Comments FOLIC ACID (test code = FOL) 7.00 NG/ML 3.10-17.50 N [id number] 08:58:00 Test Item Value Reference Range Interpretation Comments FERRITIN (test code = TIO) 154.1 NG/ML 3.0-105.0 H GLUCOSE BEDSIDE [id number] 08:22:00 Test Item Value Reference Range Interpretation Comments GLUCOSE BEDSIDE TESTING (test code 107 mg/dL 70-110 N = GLUBED) BASIC METABOLIC [id number] 06:11:00 Test Item Value Reference Range Interpretation [...] CA) 8.8 MG/DL 8.5-10.1 N GLUCOSE BEDSIDE [id number] 20:03:00 Test Item Value Reference Range Interpretation Comments GLUCOSE BEDSIDE TESTING (test code 124 mg/dL 70-110 H = GLUBED) CBC W/AUTO [id number] 08:57:00 Test Item Value Reference Range Interpretation [...] NT WITH AUTO DIFFERENTI AL. CBC W/AUTO [id number] 08:57:00 Test Item Value Reference Range Interpretation [...] CONSISTA NT WITH AUTO DIFFERENTI AL. RBC [id number] 08:57:00 Test Item Value Reference Range Interpretation Comments PLATELET ESTIMATE DECREASED THOUSAND ADEQUATE PLAT ELET COUNT (test code = REVIEWED AND PLTEST) VERIFIED. PLATELET MORPHOLOGY NORMAL (test code = PLTMORPH) CBC W/AUTO [id number] 08:57:00 Test Item Value Reference Range Interpretation [...] NT WITH AUTO DIFFERENTI AL. GLUCOSE BEDSIDE [id number] 07:43:00 Test Item Value Reference Range Interpretation Comments GLUCOSE BEDSIDE TESTING (test code = 97 mg/dL 70-110 N GLUBED) BASIC METABOLIC [id number] 07:02:00 Test Item Value Reference Range Interpretation [...] code = CA) 7.8 MG/DL 8.5-10.1 L [id number] 07:02:00 Test Item Value Reference Range Interpretation Comments MAGNESIUM (test code = MAG) 1.5 MG/DL 1.8-2.4 L CBC W/AUTO [id number] 06:50:00 Test Item Value Reference Range Interpretation [...] code = DIFF/SCN CRITERIA MDIFF) GLUCOSE BEDSIDE [id number] 20:58:00 Test Item Value Reference Range Interpretation Comments GLUCOSE BEDSIDE TESTING (test code = 90 mg/dL 70-110 N GLUBED) GLUCOSE BEDSIDE [id number] 18:52:00 Test Item Value Reference Range Interpretation Comments GLUCOSE BEDSIDE TESTING (test code = 92 mg/dL 70-110 N GLUBED) BASIC METABOLIC [id number] 17:20:00 Test Item Value Reference Range Interpretation [...] = CA) 9.2 MG/DL 8.5-10.1 N CORTISOL [id number] 15:12:00 Test Item Value Reference Range Interpretation Comments CORTISOL AM (test code 9.8 ug/dL 6.2-19.4 Perfo rmed At: HD = CORTAM) [facility] [place] [place], [place] [id number] stacie Grossman MD Ph:[phone] GLUCOSE BEDSIDE [id number] 14:56:00 Test Item Value Reference Range Interpretation Comments GLUCOSE BEDSIDE TESTING (test code 100 mg/dL 70-110 N = GLUBED) THYROID STIMULATING [id number] 13:24:00 Test Item Value Reference Range Interpretation Comments THYROID STIMULATING HORMONE 6.680 mcIU/ML 0.340-4.820 H (test code = TSH) - CT ABD PELVIS [id number] 11:35:00 Name: MACRINA LAURENT [place] : 1945 Age/S: 74 / F [address] Unit #: [id number] Loc: [place] [address] Phys: Ursula Do MD Acct: [id number] Dis Date: Status: ADM IN PHONE #: [phone] Exam Date: 04/11/2020 1110 FAX #: Reason: abdominal pain EXAMS: CPT: [id number] CT ABDPELVIS W/CONT 80236 HISTORY: abdominal pain TECHNIQUE: Helical imaging of [...] LAURENT : 1945 Age/S: 74 / F [address] Unit #: [id number]: Leanne Bravo [address] Phys: Ursula Do MD Acct: [id number] Dis Date: Status: ADM IN PHONE #: [phone] Exam Date: 04/11/2020 1115 FAX #: Reason: abdominal pain EXAMS: CPT: [id number] CT ABD PELVIS W/CONT 47266 <Continued> No significant bone lesions. IMPRESSION: 1. [...] 04/11/2020 (1138) PAGE 2 Signed ReportGLUCOSE BEDSIDE [id number] 08:00:00 Test Item Value Reference Range Interpretation Comments GLUCOSE BEDSIDE TESTING (test code 152 mg/dL 70-110 H = GLUBED) CBC W/AUTO [id number] 06:43:00 Test Item Value Reference Range Interpretation [...] code NO DIFF/SCN CRITERIA = MDIFF) RBC [id number] 06:43:00 Test Item Value Reference Range Interpretation Comments PLATELET ESTIMATE (test SLIGHTLY DECREASED ADEQUATE code = PLTEST) THOUSAND PLATELET MORPHOLOGY NORMAL (test code = PLTMORPH) CBC W/AUTO [id number] 06:42:00 Test Item Value Reference Range Interpretation [...] NO DIFF/SCN CRITERIA = MDIFF) CBC W/AUTO [id number] 06:42:00 Test Item Value Reference Range Interpretation [...] NO DIFF/SCN CRITERIA = MDIFF) GLUCOSE BEDSIDE [id number] 06:33:00 Test Item Value Reference Range Interpretation Comments GLUCOSE BEDSIDE TESTING (test code 154 mg/dL 70-110 H = GLUBED) BASIC METABOLIC [id number] 06:18:00 Test Item Value Reference Range Interpretation [...] MG/DL 8.5-10.1 L - XR CHEST 1 [id number] 21:13:00 Name: MACRINA LAURENT [place] : 1945 Age/S: 74 / F [address] Unit #: [id number] Loc: [place] [address] Phys: Ursula Do MD Acct: [id number] Dis Date: Status: ADM IN PHONE #: [phone] Exam Date: 04/10/20202106 FAX #: Reason: PICC LINE PLACEMENT EXAMS: CPT: [id number] XRCHEST 1 V 54555 Fluoro Time: DAP (Gy m2): Air Kerma [...] PAGE 1 Signed Report Name: MACRINA LAURENT [place] : 1945 Age/S: 74 / F [address] Unit #: [id number] Loc: [place] [address] Phys: Ursula Do MD Acct: [id number] Dis Date: Status: ADM IN PHONE #: [phone] Exam Date: 04/10/20202106 FAX #: Reason: PICC LINE PLACEMENT EXAMS: CPT: [id number] XR CHEST 1 V 58051 Fluoro Time: DAP (Gy m2): Air Kerma (mGy): <Continued> Technologist: Joelle So RT(R)(CT) Trnscb Date/Time: 04/10/2020 (2112) tHENRYEFM1 Orig Print D/T: S: 04/10/2020 (2115) PAGE 2 Signed ReportGLUCOSE BEDSIDE [id number] 20:19:00 Test Item Value Reference Range Interpretation Comments GLUCOSE BEDSIDE TESTING (test code = 76 mg/dL 70-110 N GLUBED) GLUCOSE BEDSIDE [id number] 16:22:00 Test Item Value Reference Range Interpretation Comments GLUCOSE BEDSIDE TESTING (test code = 82 mg/dL 70-110 N GLUBED) CBC W/AUTO [id number] 07:47:00 Test Item Value Reference Range Interpretation [...] NO DIFF/SCN CRITERIA = MDIFF) BASIC METABOLIC [id number] 06:50:00 Test Item Value Reference Range Interpretation [...] CA) 8.8 MG/DL 8.5-10.1 N GLUCOSE BEDSIDE [id number] 00:23:00 Test Item Value Reference Range Interpretation Comments GLUCOSE BEDSIDE TESTING (test code = 88 mg/dL 70-110 N GLUBED) GLUCOSE BEDSIDE [id number] 22:47:00 Test Item Value Reference Range Interpretation Comments GLUCOSE BEDSIDE TESTING (test code = 50 mg/dL 70-110 L GLUBED) GLUCOSE BEDSIDE [id number] 20:50:00 Test Item Value Reference Range Interpretation Comments GLUCOSE BEDSIDE TESTING (test code = 62 mg/dL 70-110 L GLUBED) BASIC METABOLIC [id number] 19:19:00 Test Item Value Reference Range Interpretation [...] CA) 9.5 MG/DL 8.5-10.1 N BASIC METABOLIC [id number] 15:26:00 Test Item Value Reference Range Interpretation [...] CA) 9.0 MG/DL 8.5-10.1 N GLUCOSE BEDSIDE [id number] 12:06:00 Test Item Value Reference Range Interpretation Comments GLUCOSE BEDSIDE TESTING (test code = 81 mg/dL 70-110 N GLUBED) GLUCOSE BEDSIDE [id number] 12:06:00 Test Item Value Reference Range Interpretation Comments GLUCOSE BEDSIDE TESTING (test code = 54 mg/dL 70-110 L GLUBED) GLUCOSE BEDSIDE [id number] 08:14:00 Test Item Value Reference Range Interpretation Comments GLUCOSE BEDSIDE TESTING (test code = 46 mg/dL 70-110 L GLUBED) GLUCOSE BEDSIDE [id number] 08:14:00 Test Item Value Reference Range Interpretation Comments GLUCOSE BEDSIDE TESTING (test code = 34 mg/dL 70-110 LL GLUBED) CBC W/AUTO [id number] 06:08:00 Test Item Value Reference Range Interpretation [...] code NO DIFF/SCN CRITERIA = MDIFF) RBC [id number] 06:08:00 Test Item Value Reference Range Interpretation Comments PLATELET ESTIMATE DECREASED ADEQUATE PLATELET C OUNT (test code = THOUSAND VERIFIED BY PLTEST) EXAMINATION OF PERIPHERAL BLOODSMEAR.MANU AL PLT ESTIMATE 92,000-115,000 PLATELET NORMAL MORPHOLOGY (test code = PLTMORPH) CBC W/AUTO [id number] 06:07:00 Test Item Value Reference Range Interpretation [...] NO DIFF/SCN CRITERIA = MDIFF) CBC W/AUTO [id number] 06:07:00 Test Item Value Reference Range Interpretation [...] NO DIFF/SCN CRITERIA = MDIFF) BASIC METABOLIC [id number] 06:06:00 Test Item Value Reference Range Interpretation [...] CA) 9.4 MG/DL 8.5-10.1 N CBC W/AUTO [id number] 05:48:00 Test Item Value Reference Range Interpretation [...] DIFF/SCN CRITERIA MDIFF) - MRI BRAIN W/O [id number] 19:59:00 FAX: Zurdo Perales MD [phone] Camps: PM St: ADM Name: MACRINA LAURENT [place] : 1945 Age/S: 74/F [address] Unit #: [id number] Loc: L.ICU0 [place] [address] Phys: Zurdo Rondon MD Acct: [id number] Dis Date: Status: ADM IN PHONE #: [phone] Exam Date: 04/08/2020 5447 FAX #: Reason: ISCHEMIC STROKE EXAMS: CPT: [id number] MRI BRAIN W/O CONTRAST 18584 LOCATION CODE H 31 MRI BRAIN WITHOUT [...] Signed Report (CONTINUED) FAX: Zurdo Perales MD [phone] Camps: PM St: ADM Name: MACRINA LAURENT [place] : 1945 Age/S: 74/F [address] Unit #: [id number] Loc: L.ICU0 [place] [address] Phys: Zurdo Rondno MD Acct: [id number] Dis Date: Status: ADM IN PHONE #: [phone] Exam Date: 1 1730 FAX #: Reason: ISCHEMIC STROKE EXAMS: CPT: [id number] MRI BRAIN W/O CONTRAST 64397 <Continued> at 1958 Reported and signed by: Karey Oconnor MD CC: Zurdo Rondon MD Technologist: RT Rajat(R)(MR) Transcribed Date/Time/By: 04/08/2020 (1958) :KingEFM1 Orig Print D/T: S: 04/08/2020 (2001) PAGE 2 Signed Report- XR SHOULDER 2+V [id number] 16:42:00 Name: MACRINA LAURENT [place] : 1945 Age/S: 74 / F [address] [facility] Unit #: [id number] Loc: [place] [address] Phys: Zurdo Rondon MD Acct: [id number] Dis Date: Status: ADM IN PHONE#: [phone] Exam Date: 04/08/2020 1630 FAX #: Reason: left shoulder pain EXAMS: CPT: [id number] XR SHOULDER 2+[place] [address] Fluoro Time: DAP (Gy m2): Air Kerma [...] PAGE 1 Signed Report Name: MACRINA LAURENT [place] : 1945 Age/S: 74 / F [address] Unit #: [id number] Loc: [place] [address] Phys: Zurdo Rondon MD Acct: [id number] Dis Date: Status: ADM IN PHONE #: [phone] Exam Date: 04/08/2020 1630 FAX #: Reason: left shoulder pain EXAMS: CPT: [id number] XR SHOULDER 2+[place] [address] Fluoro Time: DAP (Gy m2): Air Kerma (mGy): <Continued> Technologist: Kimmie Curtis RT(R)(CT) Trnscb Date/Time: 04/08/2020 (1641) [email or web address].[email or web address] Orig Print D/T: S: 04/08/2020 (6832) PAGE 2 Signed [id number] 06:02:00 Test Item Value Reference Range Interpretation [...] may nella yby method. Completed by Nursing: [facility] METABOLIC [id number] 05:37:00 Test Item Value Reference Range Interpretation [...] Ratio 1.48-3.22 Avg L Comment: FASTING IN [id number] 05:37:00 Test Item Value Reference Range Interpretation Comments GLYCOSYLATED HEMOGLOBIN (HA1C) 5.0 % A1C 0.0-5.7 N (test code = GLYHGB) ESTIMATED AVERAGE GLUCOSE (test 97 MG/DLest code = EAG) CBC W/AUTO [id number] 05:23:00 Test Item Value Reference Range Interpretation [...] (test code NO DIFF/SCN CRITERIA = MDIFF) [id number] 21:26:00 Test Item Value Reference Range Interpretation [...] nella yby method. Completed by Nursing: NOVITAMIN [id number] 19:04:00 Test Item Value Reference Range Interpretation Comments VITAMIN B12 (test code = VITB12) 376 PG/ML 183-986 N FOLIC [id number] 19:04:00 Test Item Value Reference Range Interpretation Comments FOLIC ACID (test code = FOL) 6.20 NG/ML 3.10-17.50 N THYROID STIMULATING [id number] 19:04:00 Test Item Value Reference Range Interpretation Comments THYROID STIMULATING HORMONE 3.100 mcIU/ML 0.340-4.820 N (test code = TSH) CARBAMAZEPINE (TEGRETOL)2020-04-07 19:04:00 Test Item Value Reference Range Interpretation Comments CARBAMAZEPINE (TEGRETOL) (test < 0.5 mcG/ML 4.0-12.0 L code = CARB) VALPROIC ACID (DEPAKENE)2020-04-07 19:04:00 Test Item Value Reference Range Interpretation Comments VALPROIC ACID (DEPAKENE) (test 53.7 mcG/ML 50.0-100.0 N code = VALP) VITAMIN [id number] 18:35:00 Test Item Value Reference Range Interpretation Comments VITAMIN B12 (test code = VITB12) 376 PG/ML 183-986 N FOLIC [id number] 18:35:00 Test Item Value Reference Range Interpretation Comments FOLIC ACID (test code = FOL) 6.20 NG/ML 3.10-17.50 N THYROID STIMULATING [id number] 18:35:00 Test Item Value Reference Range Interpretation Comments THYROID STIMULATING HORMONE 3.100 mcIU/ML 0.340-4.820 N (test code = TSH) CARBAMAZEPINE (TEGRETOL)2020-04-07 18:35:00 Test Item Value Reference Range Interpretation Comments CARBAMAZEPINE (TEGRETOL) (test code = mcG/ML 4.0-12.0 CARB) VALPROIC ACID (DEPAKENE)2020-04-07 18:35:00 Test Item Value Reference Range Interpretation Comments VALPROIC ACID (DEPAKENE) (test code = mcG/ML 50.0-100.0 VALP) [id number] 18:17:00 Test Item Value Reference Range Interpretation [...] method. Completed by Nursing: NOCOVID 19 INHOUSE [id number] 16:14:00 Test Item Value Reference Range Interpretation Comments COVID 19 INHOUSE AG NEGATIVE Negative Per manu facturer, (test code = negative result s should VOJWN35WTKW) be treated aspr esumptive and, if inconsi [...] symptoms co nsistent with COVID-19. GLUCOSE BEDSIDE [id number] 16:06:00 Test Item Value Reference Range Interpretation Comments GLUCOSE BEDSIDE TESTING (test code = 79 mg/dL 70-110 N GLUBED) UA RFLX MICR CULT IF [id number] 15:35:00 Test Item Value Reference Range Interpretation [...] UACULT) Indication for culture: RiskForSepsis-no oth srcPROTHROMBIN [id number] 14:58:00 Test Item Value Reference Range Interpretation Comments PT PATIENT (test code = PTP) 11.2 SECONDS 9.3-12.9 N INTERNATIONAL NORMAL RATIO 0.99 INR Unit 0.8-1.2 N (test code = INR) THROMBOPLASTIN TIME [id number] 14:58:00 Test Item Value Reference Range Interpretation Comments THROMBOPLASTIN TIME PARTIAL 21.3 SECONDS 26-35 L (test code = PTT) BASIC METABOLIC [id number] 14:46:00 Test Item Value Reference Range Interpretation [...] 9.1 MG/DL 8.5-10.1 N Completed by Nursing: [id number] 14:46:00 Test Item Value Reference Range Interpretation [...] method. Completed by Nursing: NO- CT ANGIO [id number] 14:46:00 Name: [place]INA [place] : 1945 Age/S: 74 / F [address] Unit #: [id number] Loc: [place] [address] Phys: Jc Garcia MD Acct: [id number] Dis Date: Status: PRE ER PHONE #: [phone] Exam Date: 04/07/2020 1430 FAX #: Reason: ams, slurred speech EXAMS: CPT: [id number] ANGIO NECK 36925 EXAM: - CT ANGIO HEAD, - CT [...] 1 Signed Report (CONTINUED) Name: [facility] [place] : 1945 Age/S: 74 / F [address] [address] Unit #: [id number] Loc: [place] [address] Phys: Jc Garcia Acct: [id number] Dis Date: Status: PRE ER PHONE #: [phone] Exam Date: 04/07/2020 8350 FAX#: Reason: ams, slurred speech EXAMS: CPT: [id number] CT ANGIO NECK 14754 <Continued> The RIGHT posterior cerebral artery, superior [...] (1446) Ansley.KW9 Orig Print D/T: S: 04/07/2020 (6661) PAGE 2Signed Report- CT ANGIO [id number] 14:46:00 Name: MACRINA LAURENT [facility] : 1945 Age/S: 74 / F [address] [address] Unit #: [id number] Loc: [place] [address] Phys: Jc Garcia MD Acct: [id number] Dis Date: Status: PRE ER PHONE #: [phone] Exam Date: 04/07/2020 1188 FAX #: Reason: ams, slurred speech EXAMS: CPT: [id number] ANGIO HEAD 10850 EXAM: - CT ANGIO HEAD, - CT [...] 1 Signed Report (CONTINUED) Name: MACRINA LAURENT [place] : 1945 Age/S: 74 / F [address] [address] Unit #: [id number] Loc: [place] [address] Phys: Jc Garcia TAM Acct: [id number] Dis Date: Status: PRE ER PHONE #: [phone] Exam Date: 04/07/2020 1353 FAX#: Reason: ams, slurred speech EXAMS: CPT: [id number] CT ANGIO HEAD [address] <Continued> The RIGHT posterior cerebral artery, superior [...] MD Technologist:RT Jesse(R)(CT)CTDI: DLP: Trnscb Date/Time: 04/07/2020 (3281) t.BRIDGET.KW9 Orig Print D/T: S: 04/07/2020 (4129) PAGE 2Signed Report- XR CHEST 1 [id number] 14:37:00 Name: MACRINA LAURENT [place] : 1945 Age/S: 74 / F [address] [address] Unit #: [id number] Loc: [place] [address] Phys: Jc Garcia MD Acct: [id number] Dis Date: Status: PRE ER PHONE #: [phone] Exam Date: 04/07/2020 1432 FAX #: Reason: Code Stroke EXAMS: CPT: [id number] XR CHEST 1 V 47486 Fluoro Time: DAP (Gy m2): Air Kerma [...] of pneumothorax.. Not fully included in the cfwlo-na-ylsg, there appears to be cortical irregularity about the left humeral head, which may represent fracture; age indeterminate. An IVC filter is partially seen in the upper abdomen. IMPRESSION 1. Low lung volumes and bronchovascular crowding. Otherwise, No radiographic evidence of acute cardiopulmonary process. 2. Not fully included in the elxdw-jl-yijk, there appears to be cortical irregularity about the left humeral head, which may represent fracture; age indeterminate. Correlate with point tenderness on physical exam. Additional dedicated radiographs of the left shoulder and/or humerus may be obtained if it is clinically warranted. at 1437 Reported and signed by: Alina Marcum M.D.CC: Jc Garcia MD PAGE 1 Signed Report Name: MACRINA LAURENT [place] : 1945 Age/S: 74 / F [address] [address] Unit #: [id number] Loc: [place] [address] Phys: Jc Garcia MD Acct: [id number] Dis Date: Status: PRE ER PHONE #: [phone] Exam Date: 04/07/2020 1432 FAX #: Reason: Code Stroke EXAMS: CPT: [id number] XR CHEST 1 V 97848 Fluoro Time: DAP (Gy m2): Air Kerma (mGy): & lt;Continued> Technologist: Courtney Roland RT(R) Trnscb Date/Time: 04/07/2020 (1437) tHENRYKW9 Orig Print D/T: S: 04/07/2020 (2819) PAGE 2 Signed ReportCBC W/O [id number] 14:23:00 Test Item Value Reference Range Interpretation [...] 7.0-10.5 N MPV) - CT HEAD/BRAIN W/O [id number] 14:23:00 Name: MACRINA LAURENT [place] : 1945 Age/S: 74 / F [id number] Unit #: [id number] Loc: [place] [address] Phys: Jc Garcia MD Acct: [id number] Dis Date: Status: PRE ER PHONE #: [phone] Exam Date: 04/07/2020 1413 FAX #: Reason: Code Stroke EXAMS: CPT: [id number] CT HEAD/BRAIN W/O CONT 15481 EXAM: - CT HEAD/BRAIN W/O CONT HISTORY: [...] PAGE 1 Signed Report (CONTINUED) Name: MACRINA LAURETN : 1945 Age/S: 74 / F [address] [address] Unit #: [id number] Loc: [place] [address] Phys: Jc Garcia MD Acct: [id number] Dis Date: Status: PRE ER PHONE #: [phone] Exam Date: 04/07/2020 1413 FAX #: Reason: Code Stroke EXAMS: CPT: [id number] CT HEAD/BRAIN W/O CONT 84591<Continued> at 1423 Reported and signed by: Alnia Marcum M.D. CC: Jc Garcia MD Technologist:RT Jesse(R)(CT) CTDI: DLP: Trnscb Date/Time: 04/07/2020 (1423) t.SDR.KW9/t.SDR.KW9 Orig Print D/T: S: 04/07/2020 (0666) PAGE 2 Signed ReportSARS-COV2/RT-PCR ([facility])2019-10-19 13:24:00 Test Item Value Reference Range Interpretation Comments SARS-COV2/RT-PCR (test Not Detected Not Detected, Negative code = 8152314) SARS-COV-2 PERFORMING LAB [facility] (test code = 5403974) Negative results do not preclude SARS-CoV-2 infection [...] of the Act.Fact Sheet for Healthcare Pro viders:https://[email or web address]/Xpert%20Xpress%20SARS%20CoV-2/Fact%20Sh eets/302-3802%81TPDU-REF-5%20HEALTHCARE%20PROVIDERS%20FACT%20SHEET.pdfFact Sheet for Healthcare Patients:[email or web address]-[email or web address]/Fact%[email or web address]-COV -2%20PATIENT%20FACT%20SHEET.pdfPerforming Laboratory:[facility] [place], [place] [address]MWQSEZVB ACID (DEPAKENE)2019-08-31 07:37:00 Test Item Value Reference Range Interpretation Comments VALPROIC ACID (DEPAKENE) (test 45.7 ug/mL 50.0-100.0 L code = VALP) HGBA1C - GLYCOSYLATED [id number] 14:38:00 Test Item Value Reference Range Interpretation Comments GLYCOSYLATED HEMOGLOBIN (HA1C) (test 4.7 % 4.0-6.0 N code = GLYHGB) URINALYSIS [id number] 13:31:00 Test Item Value Reference Range Interpretation [...] = BACU) 3+ /HPF NEGATIVE A URINALYSIS [id number] 13:20:00 Test Item Value Reference Range Interpretation [...] code = BACU) /HPF NEGATIVE BASIC METABOLIC [id number] 12:49:00 Test Item Value Reference Range Interpretation [...] 9.2 mg/dL 8.6-10.4 N CA) BASIC METABOLIC [id number] 12:43:00 Test Item Value Reference Range Interpretation [...] code = mg/dL 8.6-10.4 CA) CBC W/AUTO [id number] 12:02:00 Test Item Value Reference Range Interpretation [...] Borderline Risk LDL Cholesterol<1 00mg/dL: Desirable LDL-C [id number] 0-159mg/ dL: Borderline High Risk LDL-C [id number] 0-189mg/ dL: High risk L DL-C concentration H DL-LDL Cholesterol is affected by a number of factors suchas smoking, age and sex.~~~~~~~~~~~ ~~~~~~~~ ~~~~~~~~~~~~~~~ ~~~~~~~~ ~~~~~~~~~~~~~~~ ~~~ THYROID STIMULATING [id number] 12:09:00 Test Item Value Reference Range Interpretation Comments THYROID STIMULATING HORMONE (test 8.41 mIU/mL 0.38-5.60 H code = TSH)
--- NOTE | 2022-02-21 11:08 | RAD REPORT ---
EXAM DESCRIPTION: CT - CTHCSPWOC - 02/21/2022 10:59 am CLINICAL HISTORY: fall out of bed, head trauma, asymmetric pupils COMPARISON: Head C Spine Mpr Wo Con dated 06/14/2020 TECHNIQUE: Axial 5 mm thick images of the head were obtained. Axial 2 mm thick images of the cervic al spine were obtained with sagittal and coronal reconstruction images generated and reviewed. All CT scans are performed using dose optimization technique as appropriate and may include automated exposure control or mA/KV adjustment according to patient size. FINDINGS: No intracranial hemorrhage, mass, edema or acute intracranial finding. No suspicion for ac knik infarction. No cortical edema or sulcal effacement. Mild atrophy changes are present matching com parison. Ventricles are in proportion. Chronic ischemic change in the cerebral white matter also seen as mild stable. Mastoid air cells and paranasal sinuses are clear. No globe or orbit abnormality see n. No acute bone finding. Patient has normal variant hyperostosis frontalis interna. Cervical body height and alignment are normal. No disk space narrowing. No fracture or acute bony abn ormality. Prominent facet joint degenerative changes are present. Bony foraminal stenosis is present, mild at C3-4 and on the right at C4-5. More advanced foraminal stenosis present on the left at C4-5. Mild foraminal stenosis at C5-6. Central canal detail is inherently limited. No paraspinal mass or hematoma. Thyroid nodularity is present incompletely evaluated on this study. T hyroid nodules have been previously seen and are not grossly different. This can be followed as clini uzma findings warrant. IMPRESSION: Negative CT head examination for acute or significant finding. Atrophy and chronic ische phil change [address] cervical spine examination for acute or significant finding. Degenerative changes are st able. Multiple left-sided thyroid nodules are present only partially imaged. No gross change from compariso n. These can be followed as an outpatient as clinical findings warrant.
--- NOTE | 2022-02-21 12:37 | EDPHYS ---
Physician Documentation [facility] Name: Macrina Mason Age: 76 yrs Sex: Female : 1945 Arrival Date: 02/21/2022 Time: 10:44 Bed 16 Private MD: ED Physician Autumn Canas HPI: 02/21 12:31 This 76 yrs old Female presents to ER via EMS with complaints of Fall Injury. sd2 12:31 76-year-old female presents via EMS with chief complaint of fall with head injury. She sd2 reports that she felt nauseous and leaned over the side of the bed to throw up and then leaned too far falling out of the bed and hitting her head. She denies any loss of consciousness and remembers the entire event. She does not currently take any blood thinners but is on aspirin daily. EMS does report asymmetric pupils but the patient does have a history of stroke and they are unsure if this is chronic or not. The patient denies any significant head pain aside from the site of her hematoma to her forehead. She denies any neck or back pain. She denies any arm pain, chest pain or abdominal pain.. Historical: - PMHx: 10:57 Alzheimer's disease; COPD; CHF; Bipolar disorder; Hyperlipidemia; Parkinsons; em6 - Immunization history:: Adult Immunizations up to date. - Social history:: Smoking status: unknown. ROS: 12:31 Constitutional: Negative for fever, chills, and weight loss, Eyes: Negative for injury, sd2 pain, redness, and discharge, Neck: Negative for injury, pain, and swelling, Cardiovascular: Negative for chest pain, palpitations, and edema, Respiratory: Negative for shortness of breath, cough, wheezing. Abdomen/GI: Negative for abdominal pain, nausea, vomiting, diarrhea. MS/Extremity: Negative for injury and deformity, Skin: Negative for injury, rash, and discoloration, Neuro: Negative for headache, numbness and tingling. 12:31 Abdomen/GI: Negative for abdominal pain, vomiting, diarrhea. Positive for nausea. sd2 Exam: 12:31 Constitutional: This is a well developed, well nourished patient who is awake, alert, sd2 and in no acute distress. Head/Face: Normocephalic, L sided forehead hematoma noted Eyes: EOMI, normal conjunctiva bilaterally, pupils are asymmetric but equally reactive with the L pupil at 3 mm and the R pupil at 5 mm Chest/axilla: Normal chest wall appearance and motion. Nontender with no deformity. Cardiovascular: Regular rate and rhythm with a normal S1 and S2. No gallops, murmurs, or rubs. 2+ distal pulses. Respiratory: Lungs have equal breath sounds bilaterally, clear to auscultation and percussion. No rales, rhonchi or wheezes noted. No increased work of breathing, no retractions or nasal flaring. Abdomen/GI: Soft, non-tender, with normal bowel sounds. No guarding or rebound. No evidence of tenderness throughout. Skin: Warm, dry with normal turgor. Normal color with no rashes, no lesions, and no evidence of cellulitis. Scattered areas of ecchymosis noted to all extremities, appears old. MS/ Extremity: Pulses equal, no cyanosis. Neurovascular intact. Full, normal range of motion.No midline spinal tenderness, stepoffs or deformities. Psych: Awake and alert. Behavior, mood, and affect are within normal limits. Vital Signs: 11:06 BP 124 / 60; Pulse 72; Resp 14; Temp 97.9; Pulse Ox 100% on R/A; em6 12:18 BP 119 / 61; Pulse 82; Resp 16; Pulse Ox 100% on R/A; bm7 13:36 BP 124 / 78; Pulse 78; Resp 16; Pulse Ox 100% on R/A; Pain 0/10; bm7 MDM: 10:49 Patient medically screened. sd2 12:34 Differential diagnosis: abrasion, closed head injury, contusion, fracture, ICH, among sd2 others. Data reviewed: vital signs, nurses notes, radiologic studies. Medical screen evaluation completed. EMTALA emergency medical condition absent. ED course: Imaging reviewed with no acute traumatic findings noted. Pt resting comfortably with no other areas of pain. Suspect asymmetric pupils are chronic 2/2 patient's history. Pt with no current complaints and would like to be discharged back to her facility. Pt verbalizes understanding of discharge plan and strict return precautions at this time. She will [facility] where she will continue to be monitored closely and return for any further issues.. 02/21 10:49 Order name: CT Head C Spine sd2 02/21 10:53 Order name: Head C Spine Mpr Wo Con; Complete Time: 12:08 EDMS Administered Medications: No medications were administered Disposition Summary: 02/21/22 12:36 Discharge Ordered Location: Intermediate sd2 Problem: new sd2 Symptoms: have improved sd2 Condition: Stable sd2 Diagnosis - Closed Head injury sd2 - Forehead hematoma sd2 Followup: sd2 - With: Private Physician - When: 2 - 3 days - Reason: Recheck today's complaints, Continuance of care, Re-evaluation by your physician Followup: sd2 - With: Emergency Department - When: As needed - Reason: Discharge Instructions: - Discharge Summary Sheet sd2 - Head Injury, Adult sd2 - Hematoma sd2 Forms: - Medication Reconciliation Form sd2 - Thank You Letter sd2 - SBAR form eb - Antibiotic Education sd2 - Prescription Opioid Use sd2 Signatures: Dispatcher [employer] EDMS Vania Valdes RN RN bm7 Autumn Canas MD MD sd2 Katie Zhong RN RN em6 Corrections: (The following items were deleted from the chart) 11:01 10:57 PMHx: Schizophrenia; em6 em6 11: 10:57 PMHx: DVT; em6 em6 11: 10:57 PMHx: allergies; em6 em6 11: 10:57 PMHx: Back pain; em6 em6 11:01 10:57 PMHx: UTI; em6 em6 11:01 10:57 PMHx: ADD/ADHD; em6 em6 11: 10:57 PMHx: DYSPHAGIA; em6 em6 11: 10:57 PMHx: CVA; em6 em6 11:01 10:57 PMHx: Alzheimers; em6 em6 11:01 10:57 PMHx: chronic kidney disease; em6 em6 11: 10:57 PMHx: TIA; em6 em6 11: 10:57 PMHx: convulsions; em6 em6 12:34 12:31 Constitutional: This is a well developed, well nourished patient who is awake, sd2 alert, and in no acute distress. Head/Face: Normocephalic, L sided forehead hematoma noted Eyes: EOMI, normal conjunctiva bilaterally, pupils are asymmetric but equally reactive with the L pupil at 3 mm and the R pupil at 5 mm Chest/axilla: Normal chest wall appearance and motion. Nontender with no deformity. Cardiovascular: Regular rate and rhythm with a normal S1 and S2. No gallops, murmurs, or rubs. 2+ distal pulses. Respiratory: Lungs have equal breath sounds bilaterally, clear to auscultation and percussion. No rales, rhonchi or wheezes noted. No increased work of breathing, no retractions or nasal flaring. Abdomen/GI: Soft, non-tender, with normal bowel sounds. No guarding or rebound. No evidence of tenderness throughout. Skin: Warm, dry with normal turgor. Normal color with no rashes, no lesions, and no evidence of cellulitis. Scattered areas of ecchymosis noted to all extremities, appears old. MS/ Extremity: Pulses equal, no cyanosis. Neurovascular intact. Full, normal range of motion.No midline spinal tenderness, stepoffs or deformities. Psych: Awake, alert, with orientation to person, place and time. Behavior, mood, and affect are within normal limits. sd2
--- NOTE | 2022-02-21 12:37 | ER ---
Nurse's Notes [facility] Name: Macrina Mason Age: 76 yrs Sex: Female : 1945 Arrival Date: 02/21/2022 Time: 10:44 Bed 16 Private MD: Diagnosis: Closed Head injury;Forehead hematoma Presentation: 02/21 10:52 Chief complaint: EMS states: patient was feeling nauseous and tried to get up to vomit em6 and fell from bed. she hit her head, but states not losing conscious. left pupil is sluggish and a 1. Right is 3 and reactive. she is from [facility]. Coronavirus screen: At this time, the client does not indicate any symptoms associated with coronavirus-19. Ebola Screen: Patient negative for fever greater than or equal to 101.5 degrees Fahrenheit, and additional compatible Ebola Virus Disease symptoms. Initial Sepsis Screen: Does the patient meet any 2 criteria?. Risk Assessment: Do you want to hurt yourself or someone else? Patient reports no desire to harm self or others. Onset of symptoms was February 21, 2022. 10:52 Method Of Arrival: EMS: [facility] em6 11:07 Initial Sepsis Screen: Does the patient meet any 2 criteria? No. Patient's initial em6 sepsis screen is negative. Does the patient have a suspected source of infection? No. Patient's initial sepsis screen is negative. 11:07 Acuity: [place] 3 em6 Triage Assessment: 10:56 General: Appears in no apparent distress. comfortable, Behavior is calm, cooperative. em6 Pain: Denies pain. EENT:. Historical: - PMHx: 10:57 Alzheimer's disease; COPD; CHF; Bipolar disorder; Hyperlipidemia; Parkinsons; em6 - Immunization history:: Adult Immunizations up to date. - Social history:: Smoking status: unknown. Screenin:56 Abuse screen: Denies threats or abuse. Nutritional screening: No deficits noted. em6 Tuberculosis screening: No symptoms or risk factors identified. Fall Risk Fall in past 12 months (25 points). No secondary diagnosis (0 pts). Mental Status- Oriented to own ability (0 pts). Total Sandoval Fall Scale indicates No Risk (0-24 pts). Assessment: 12:18 Reassessment: Patient and/or family updated on plan of care and expected duration. Pain bm7 level reassessed. Patient is alert, oriented x 3, equal unlabored respirations, skin warm/dry/pink. 13:42 General: Appears in no apparent distress. comfortable, Behavior is calm, cooperative. bm7 Pain: Denies pain. Neuro: Level of Consciousness is awake, alert, obeys commands, Oriented to person, place, Slag Worker are weak bilaterally Full function Weakness Gait is unsteady. Cardiovascular: No deficits noted. Respiratory: No deficits noted. GI: No deficits noted. No signs and/or symptoms were reported involving the gastrointestinal system. : No deficits noted. No signs and/or symptoms were reported regarding the genitourinary system. EENT: No deficits noted. No signs and/or symptoms were reported regarding the EENT system. Derm: No signs and/or symptoms reported regarding the dermatologic system. Musculoskeletal: No deficits noted. No signs and/or symptoms reported regarding the musculoskeletal system. Vital Signs: 11:06 BP 124 / 60; Pulse 72; Resp 14; Temp 97.9; Pulse Ox 100% on R/A; em6 12:18 BP 119 / 61; Pulse 82; Resp 16; Pulse Ox 100% on R/A; bm7 13:36 BP 124 / 78; Pulse 78; Resp 16; Pulse Ox 100% on R/A; Pain 0/10; bm7 ED Course: 10:44 Patient arrived in ED. eb 10:49 Autumn Canas MD is Attending Physician. sd2 11:00 Head C Spine Mpr Wo Con In Process Unspecified. EDMS 11:08 Triage completed. em6 13:35 Vania Valdes, [place] is Primary Nurse. bm7 13:35 CT Head C Spine Sent. bm7 13:38 Report given to Jeanette Germain LVN \Brayan\ Brynn. bm7 13:42 No apparent distress. Resting quietly. transfer transportation to receiving facility. bm7 13:42 No provider procedures requiring assistance completed. bm7 13:42 Patient has correct armband on for positive identification. Placed in gown. Bed in low bm7 position. Call light in reach. Side rails up X2. Client placed on continuous cardiac and pulse oximetry monitoring. NIBP monitoring applied. Noise minimized. Warm blanket given. Head of bed Elevated. Assisted to bedside commode. Cleaned of incontinence. Linen changed. 14:06 Patient did not have IV access during this emergency room visit. bm7 14:07 Arm band placed on right wrist. bm7 Administered Medications: No medications were administered Medication: 13:38 VIS not applicable for this client. bm7 Outcome: 12:36 Discharge ordered by . sd2 14:06 [facility]. Report called to Jeanette Germain LVN bm7 14:06 Condition: improved 14:06 Discharge instructions given to patient, jail, EMS, Instructed on discharge instructions, Demonstrated understanding of instructions. 14:07 Patient left the ED. bm7 Signatures: Dispatcher [employer] EDMS Lesly Trevino Brittany RN RN bm7 Autumn Canas MD MD sd2 Katie Zhong RN RN em6 Corrections: (The following items were deleted from the chart) 11:01 10:57 PMHx: Schizophrenia; em6 em6 11: 10:57 PMHx: DVT; em6 em6 11: 10:57 PMHx: allergies; em6 em6 11:01 10:57 PMHx: Back pain; em6 em6 11:01 10:57 PMHx: UTI; em6 em6 11:01 10:57 PMHx: ADD/ADHD; em6 em6 11:01 10:57 PMHx: DYSPHAGIA; em6 em6 11:01 10:57 PMHx: CVA; em6 em6 11:01 10:57 PMHx: Alzheimers; em6 em6 11: 10:57 PMHx: chronic kidney disease; em6 em6 11: 10:57 PMHx: TIA; em6 em6 11:01 10:57 PMHx: convulsions; em6 em6
[2022-02-21 14:31] VITALS: TEMP 97.9; O2SAT 100
[2022-02-21 14:37] VITALS: BP 124/78
== END 2022-02-21 14:07 ==
LOC: ER 10:16
DX: S00.83XA Contusion of other part of head, initial encounter (principal); S09.90XA Unspecified injury of head, initial encounter; G30.9 Alzheimer's disease, unspecified; F02.80 Dementia in other diseases classified elsewhere, unspecified severity, without behavioral disturbance, psychotic disturbance, mood disturbance, and anxiety; G20 Parkinson's disease; Z86.73 Personal history of transient ischemic attack (TIA), and cerebral infarction without residual deficits; Z79.82 Long term (current) use of aspirin
CPT/HCPCS: 70450; 72125; 99284

== ENCOUNTER 2022-03-08 06:52 | Inpatient (IN) | payer OTHER, BC ==
--- OUTSIDE RECORDS SUMMARY | 2022-03-08 06:59 | XMS REPORT | Continuity of Care Document ---
:1945 Author Organization [facility] t Address [address] [place] [address] Care Team Providers Name Role Phone Racquel CesarRadhaRafael Godfrey Primary Care Physician Nina Alegre Attending Clinician Unavailable MARGY BETANCOURT NATASHA Attending Clinician Unavailable [id number] Attending Clinician Unavailable Shay Douglas Attending Clinician Unavailable Krishna Slaughter MD Attending Clinician Doctor Unassigned, [place] Attending Clinician Unavailable Devika Lindquist Attending Clinician Unavailable Nel Canela Attending Clinician Unavailable Nicole Sorensen Attending Clinician Unavailable DEVIKA LINDQUIST Attending Clinician Unavailable Emelia Solano Attending Clinician Unavailable Zurdo Rondon Attending Clinician Unavailable MARGY BETANCOURT NATASHA Admitting Clinician Unavailable [id number] Admitting Clinician Unavailable Shay Douglas Admitting Clinician Unavailable Physician, No Primary or Family Admitting Clinician Unavaila Nicole Horan Admitting Clinician Unavailable KNOW, DOES_NOT Admitting Clinician Unavailable DEVIKA TOBIAS Admitting Clinician Unavailable Payers Payer Name Policy Type Policy Number Effective Date Expiration Date Nomi CALLE MCR [id number] BCTX BCTI [id number] Problems Condition Condition Condition Status Onset Resolution Last Treating Co mments Source Name Details Category Date Date Treatment Clinician Date UTI UTI Disease Active 2015-07 Univers (urinary (urinary 1-23 ity of tract tract 00:00: [place] infection) infection) 00 Me dical Branch Knee joint Knee joint Disease Active 2015-07 U nivers replacemen replacemen 0-13 it y of t status t status 00:00: [place] [id number] Medical Branch Morbid Morbid Disease Active 2015-07 Univers obesity obesity 0-12 ity of 00:00: [place] [id number] Medical Branch Pain Pain Disease Active 2015-07 Univers 0-12 ity of 00:00: [place] [id number] Medical Branch Chronic Chronic Disease Active Univers kidney kidney ity of disease disease [facility] History of History of Disease Active U nivers DVT (deep DVT (deep ity of vein vein [place] thrombosis thrombosis Nm dical ) ) Branch Hypertensi Hypertensi Disease Active U nivers on on ity of [facility] Anemia Anemia Disease Active Univers ity of [facility] Arthritis Arthritis Disease Active Uni vers ity [facility] Allergies, Adverse Reactions, Alerts Allergy Allergy Status Severity Reaction(s) Onset Inactive Treating Comm ents Source Name Type Date Date Clinician No Known DA Active U 2019-1 [facility]ie 0-04 Clear s 00:00: [place] 00 [facility] No Known DA Active U 2020-1 [facility] Allergie 0-04 Clear s 00:00: [place] 00 [facility] No Known DA Active U 2020-0 [facility] Allergie 2-20 [place] [facility] [place] No Known DA Active U 2020-0 [facility] Allergie 2-20 [place] 00:[facility]: [facility] 00 [place] Social History Social Habit Start Date Stop Date Quantity Comments Source Exposure to 2021-11-03 2021-11-13 Not sure [facility] SARS-CoV-2 00:00:00 08:18:00 [facility] (event) Branch Alcohol intake 2021-11-13 2021-11-13 Current University of 00:00:00 00:00:00 non-drinker of [place] Medi tori alcohol Branch (finding) Tobacco Comment 2014-11-08 2014-11-08 denies smoking Unive rsity of 00:00:00 00:00:00 [facility] Branch Sex Assigned At [birth year] [facility] 00:00:00 00:00:00 [facility] Center Smoking Status Start Date Stop Date Source Never smoker [facility] Branch Medications Ordered Filled Start Stop Current Ordering Indication Dosage Frequency Signature Comments Components Source Medication Medication Date Date Medication? Clinician (SIG) Name Name Cipro Cipro 2020- No Na Alegre 1 tablet Com mon 03-17 Spirit 00:00: 00:00 - [facility] 00 :00 [facility] Santyl Santyl 2020- No Na Alegre 1 Commo n 01-07 applicatio Spirit 00:00: 00:00 n nickel - [facility]I 00 :00 thickness [facility] Zofran Zofran 2019- Yes Na Alegre 1 tablet Co mmon 2-14 Spirit 00:00: - [facility] Comp Air Comp Air 2019- Yes Na Alegre as Co mmon Compressor Compressor 2-13 directed Spirit Nebulizer Nebulizer 00:00: - C HI 00 [facility] Levothyroxi Levothyroxi 2019- Yes Na Alegre 1 tablet Common ne Sodium ne Sodium 0-24 in the Spi rit 00:00: morning on - [facility]I 00 an empty stomach [facility] Imitrex Imitrex 2019-0 Yes Na Alegre 1 tablet Common 9-30 as needed Spirit 00:00: - [facility]I [facility] Flonase Flonase 2019-0 Yes Na Alegre 1 spray in Common 6-06 each Spirit 00:00: nostril - [facility]I [facility] Claritin Claritin 2019-0 Yes Na Alegre 1 tablet Common 6- Spirit 00:00: - [facility] 00 [facility] FOLIC 2015- Yes 1{tbl} Take 1 [...] rash amitriptyli 2015-07 Yes 25mg Take 1 [facility] ers ne (ELAVIL) 1-30 tablet by ity of 25 mg 00:00: mouth at [place] tablet 00 bedtime. Medical Branch tolterodine 2015-07 Yes 2mg Take 1 [facility] ers (DETROL) 2 1-30 tablet by ity of mg tablet 00:00: mouth 2 [place] 00 (two) Medical times Branch daily. Divalproex Divalproex Yes Na Alegre 3 tablets Common Sodium Sodium [facility] Lisinopril Lisinopril Yes Na Alegre 1 tablet Common [facility] Carvedilol Carvedilol Yes Na Alegre 1 tablet Common [facility] Simethicone Simethicone Yes Na Alegre 1 tablet Common after Spirit meals and - CHI at bedtime as needed [facility] Furosemide Furosemide Yes Na Alegre TAKE 1 Common TABLET BY [facility] MOUTH - CHI EVERY DAY [facility] Duloxetine Duloxetine Yes Na Alegre 1 capsule Common HCl HCl [facility] Benadryl Benadryl Yes Na Alegre 1 tablet Common Allergy Allergy as needed Spir it [facility] Metoprolol Metoprolol Yes Na Alegre TAKE 1 Common Succinate Succinate TABLET BY Spirit ER ER MOUTH - CHI TWICE St DAILY AT [facility] 6AM AND Medical 6PM Center Topiramate Topiramate Yes Na Alegre TAKE 1 Common TABLET BY Spirit MOUTH - CHI TWICE St DAILY [facility] Ipratropium Ipratropium Yes Na Alegre 3 ml Common -Albuterol -Albuterol Spi [facility] Calcium Calcium Yes Na Alegre 1 tab Commo n [facility] Carbamazepi Carbamazepi Yes Na Alegre 1 tablet Common ne ne [facility] BuPROPion BuPROPion Yes Na Alegre 1 tablet Common HCl ER (XL) HCl ER (XL) in [facility] Gabapentin Gabapentin Yes Na Alegre 1 tablet Common [facility] Levothyroxi Levothyroxi Yes Na Alegre 1 tablet Common ne Sodium ne Sodium on an Spir it empty - CHI stomach in [facility] Atorvastati Atorvastati Yes Na Alegre 1 tablet Common n Calcium n Calcium Spiri [facility] Diclofenac Diclofenac Yes Na Alegre 1 tablet Common Sodium Sodium with food [facility] or milk [facility] Donepezil Donepezil Yes Na Alegre 1 tablet Common HCl HCl at bedtime [facility] Protonix Protonix Yes Na Alerge 1 tablet Common [facility] Ondansetron Ondansetron Yes Na Alegre 1 tablet Common HCl HCl [facility] Oxybutynin Oxybutynin Yes Na Alegre 1 tablet Common Chloride ER [facility]lor[facility] Folic Folic Yes Na Alegre 1 tablet Common Acid-Vit Acid-Vit [facility] B6-Vit B12 B6-Vit B12 - C [facility] Memantine Memantine Yes Na Alegre 1 tablet Common HCl HCl [facility] Trazodone Trazodone Yes Na Alegre not Co mmon HCl HCl defined [facility] Imodium A-D Imodium A-D Yes Na Alegre 1 tablet Common as needed [facility] Melatonin Melatonin Yes Na Alegre 1 tablet Common at bedtime [facility] as needed - [facility] with food [facility] Vitamin D Vitamin D Yes Na Alegre 1 tablet Common [facility] Zantac Zantac Yes Na Alegre 1 tablet Comm on at bedtime [facility] Vital Signs Vital Name Observation Time Observation Value Comments Source Body height 2021-11-13 13:24:00 180.3 cm [facility] Body weight 2021-11-13 13:24:00 97.977 kg [facility] BMI 2021-11-13 13:24:00 30.13 kg/m2 [facility] Procedures Procedure Date / Time Performed Performing Clinician Sour e PHYSICIAN ORDERS 2021-11-13 05:01:00 Doctor Unassigned, No Unive [facility] [id number] 2021-02-15 00:00:00 ENCPL [id number] 2021-02-15 00:00:00 ENCPL [id number] 2021-02-15 00:00:00 ENCPL [id number] 2021-02-15 00:00:00 ENCPL [id number] 2021-02-15 00:00:00 ENCPL [id number] 2021-02-15 00:00:00 ENCPL [id number] 2020-04-22 00:00:00 ENCPL [id number] 2020-04-22 00:00:00 ENCPL [id number] 2020-04-22 00:00:00 ENCPL [id number] 2020-04-22 00:00:00 ENCPL [id number] 2020-04-22 00:00:00 ENCPL [id number] 2020-04-22 00:00:00 ENCPL [id number] 2020-04-22 00:00:00 ENCPL [id number] 2020-04-22 00:00:00 ENCPL [id number] 2020-04-22 00:00:00 ENCPL [id number] 2020-04-22 00:00:00 ENCPL [id number] 2020-04-22 00:00:00 ENCPL [id number] 2020-04-22 00:00:00 ENCPL [id number] 2020-04-22 00:00:00 ENCPL [id number] 2020-04-22 00:00:00 ENCPL [id number] 2020-04-19 00:00:00 ENCPL [id number] 2020-04-19 00:00:00 ENCPL [id number] 2020-04-19 00:00:00 ENCPL [id number] 2020-04-19 00:00:00 ENCPL [id number] 2020-04-19 00:00:00 ENCPL [id number] 2020-04-19 00:00:00 ENCPL [id number] 2020-04-19 00:00:00 ENCPL [id number] 2020-04-19 00:00:00 ENCPL [id number] 2020-04-19 00:00:00 ENCPL [id number] 2020-04-19 00:00:00 ENCPL [id number] 2020-04-19 00:00:00 ENCPL [id number] 2020-04-19 00:00:00 ENCPL [id number] 2020-04-19 00:00:00 ENCPL [id number] 2020-04-19 00:00:00 ENCPL [id number] 2020-04-19 00:00:00 ENCPL [id number] 2020-04-10 00:00:00 BOKSY.01 [facility] [id number] 2020-04-07 00:00:00 CORAN.03 [facility] [id number] 2020-04-07 00:00:00 CORAN.03 [facility] Encounters Start End Encounter Admission Attending Care Care Encounter Source Date/Time Date/Time Type Type Clinicians Facility Department ID 2021-11-10 Outpatient Alegre, Na STLMLC STLMLC [id number] 2 Common 08:48:02 [facility] 2021-11-04 Outpatient Alegre, Na STLMLC STLMLC [id number] 2 Common 15:10:00 [facility] 2021-11-03 Outpatient Alegre, Na STLMLC STLMLC [id number] 2 Common 09:18:01 [facility] 2021-08-28 Outpatient 3 SERAFIN, ENCPL CVA ENCPL 08:35:14 MARGY 0224 2021-07-31 Outpatient 3 [id number] ENCPL REF ENCPL 12:37:26 0802 2021-07-31 Outpatient 3 [id number] ENCPL REF [id number] ENCPL 11:03:22 1124 2021-07-31 Outpatient 3 [id number] ENCPL REF [id number] ENCPL 10:46:27 1012 2021-07-31 Outpatient 3 [id number] ENCPL REF [id number] ENCPL 10:45:42 1009 2021-07-31 Outpatient 3 [id number] ENCPL REF [id number] ENCPL 10:42:01 0930 2021-07-31 Outpatient 3 [id number] ENCPL REF [id number] ENCPL 10:41:35 0929 2021-07-30 Outpatient Alegre, Na STLMLC STLMLC [id number] 2 Common 14:29:39 [facility] 2021-07-30 Outpatient Alegre, Na STLMLC STLMLC [id number] 2 Common 14:29:06 [facility] 2021-07-30 Outpatient Alegre, Na STLMLC STLMLC [id number] 2 Common 13:55:23 [id number] [facility] 2021-07-30 Outpatient Alegre, Na STLMLC STLMLC [id number] 2 Common 13:54:44 [id number] [facility] 2021-07-30 Outpatient Alegre, Na STLMLC STLMLC [id number] 2 Common 13:52:28 17335 [facility] 2021-07-30 Outpatient Alegre, Na STLMLC STLMLC [id number] 2 Common 13:24:20 [id number] [facility] 2021-07-30 Outpatient Alegre, Na STLMLC STLMLC [id number] 2 Common 13:20:59 [id number] [facility] 2021-07-30 Outpatient Alegre, Na STLMLC STLMLC [id number] 2 Common 13:20:20 [id number] [facility] 2021-07-30 Outpatient Alegre, Na STLMLC STLMLC [id number] 2 Common 13:19:53 [id number] [facility] 2021-07-30 Outpatient Alegre, Na STLMLC STLMLC [id number] 2 Common 13:02:26 [id number] [facility] 2021-07-30 Outpatient Alegre, Na STLMLC STLMLC [id number] 2 Common 13:01:57 [id number] [facility] 2021-07-30 Outpatient Alegre, Na STLMLC STLMLC [id number] 2 Common 12:52:27 [id number] [facility] 2021-07-30 Outpatient Alegre, Na STLMLC STLMLC [id number] 2 Common 12:14:12 00238 [facility] 2021-07-30 Outpatient Alegre, Na STLMLC STLMLC [id number] 2 Common 12:00:44 13503 [facility] 2021-07-30 Outpatient Alegre, Na STLMLC STLMLC [id number] 2 Common 11:58:07 43030 [facility] 2021-07-30 Outpatient Alegre, Na STLMLC STLMLC [id number] 2 Common 11:57:28 [id number] [facility] 2021-07-30 Outpatient Alegre, Na STLMLC STLMLC [id number] 2 Common 11:48:36 [id number] [facility] 2021-07-30 Outpatient Alegre, Na STLMLC STLMLC [id number] 2 Common 11:48:10 15162 [facility] 2021-07-30 Outpatient Alegre, Na STLMLC STLMLC [id number] 2 Common 11:28:48 [id number] [facility] 2021-07-30 Outpatient Alegre, Na STLMLC STLMLC [id number] 2 Common 11:28:22 [id number] [facility] 2020-04-07 Inpatient HCAPM CARRILLO [id number] [facility] 13:56:[address] [facility] 2019-08-24 Inpatient EM Misael Shay HCATB ELIZABETH [id number] [facility] 18:16:00 [id number] [facility] [place] 2021-12-24 2021-12-24 ambulatory STLMLC STLMLC [id number] Common 00:00:00 00:00:00 [facility] 2021-12-24 2021-12-24 ambulatory STLMLC STLMLC [id number] Common 00:00:00 00:00:00 [facility] 2021-12-22 2021-12-22 ambulatory STLMLC STLMLC [id number] Common 00:00:00 00:00:00 [facility] 2021-12-09 2021-12-09 ambulatory STLMLC STLMLC [id number] Common 00:00:00 00:00:00 [facility] 2021-11-13 2021-11-13 Office NEHAL Slaughter [id number] Univers 08:30:00 08:56:54 Visit [facility] [id number] it y of EMILIANO [id number] Daniel as SAUL?BLEA [phone] Me este[place] [address] MEDICAL OFFICE BUILDING 2021-11-13 2021-11-13 Orders Doctor GENOVEVA [id number] Univers 00:00:00 00:00:00 Only Unassigned, SHONDA [id number] [facility] [id number] Daniel as [phone] [address] 2021-10-27 2021-10-27 ambulatory STLMLC STLMLC [id number] Common 00:00:00 00:00:00 [facility] 2021-10-23 2021-10-23 ambulatory STLMLC STLMLC [id number] Common 00:00:00 00:00:00 [facility] 2021-09-12 2021-09-12 ambulatory STLMLC STLMLC [id number] Common 00:00:00 00:00:00 [facility] 2021-09-11 2021-09-11 ambulatory STLMLC STLMLC [id number] Common 00:00:00 00:00:00 [facility] 2021-08-30 2021-09-10 Inpatient 3 SERAFIN, ENCPL OTH [id number] ENCPL 15:16:00 11:00:00 MARGY Geovanny6 2021-07-28 2021-07-28 ambulatory STLMLC STLMLC [id number] Common 00:00:00 00:00:00 [facility] 2021-06-12 2021-06-12 ambulatory STLMLC STLMLC [id number] Common 00:00:00 00:00:00 [facility] 2021-05-22 2021-05-22 ambulatory STLMLC STLMLC [id number] Common 00:00:00 00:00:00 [facility] 2021-05-19 2021-05-19 ambulatory STLMLC STLMLC [id number] Common 00:00:00 00:00:00 [facility] 2021-04-04 2021-04-04 Outpatient STLMLC STLMLC [id number] Common 00:00:00 00:00:00 [facility] 2021-03-26 2021-03-26 Outpatient STLMLC STLMLC [id number] Common 00:00:00 00:00:00 [facility] 2021-03-12 2021-03-12 Outpatient STLMLC STLMLC [id number] Common 00:00:00 00:00:00 [facility] 2021-02-14 2021-02-14 Outpatient Ameena, HCAPM LABO [id number] [facility] 14:44:00 14:44:00 Devika [id number] [facility] 2021-02-14 2021-02-14 Outpatient Ameena, HCAPM LABO [id number] [facility] 14:44:00 14:44:00 Devika [id number] [facility] 2021-02-13 2021-02-13 Outpatient Hilton, HCAPM RADI LA552 04-20 [facility] 16:14:00 16:14:00 Nel [id number] [facility] 2021-02-13 2021-02-13 Outpatient Ameena, HCAPM LABO [id number] [facility] 13:32:00 13:32:00 Devika [id number] [facility] 2021-02-13 2021-02-13 Outpatient Ameena, HCAPM LABO [id number] [facility] 13:32:00 13:32:00 Devika [id number] [facility] 2021-02-12 2021-02-12 Outpatient Ameena, HCACL LABO [id number] [facility] 19:12:00 19:12:00 Devika [id number] [facility] 2021-02-12 2021-02-12 Outpatient Ameena, HCAPM LABO [id number] [facility] 11:17:00 11:17:00 Devika [id number] [facility] 2021-02-12 2021-02-12 Outpatient Ameena, HCAPM LABO [id number] [facility] 11:17:00 11:17:00 Devika [id number] [facility] 2021-02-11 2021-02-11 Outpatient Nicole Sorensen HCAPM RADI [id number] [facility] 22:28:00 22:28:00 [id number] [facility] 2021-02-05 2021-02-05 Outpatient Nicole Sorensen HCAPM RADI [id number] [facility] 13:47:00 13:47:00 [id number] [facility] 2021-02-04 2021-02-04 Outpatient STLMLC STLMLC [id number] Common 00:00:00 00:00:00 [facility] 2021-01-08 2021-01-08 Outpatient STLMLC STLMLC [id number] Common 00:00:00 00:00:00 [facility] 2021-01-01 2021-01-01 Outpatient STLMLC STLMLC [id number] Common 00:00:00 00:00:00 [facility] 2020-12-18 2020-12-18 Outpatient STLMLC STLMLC [id number] Common 00:00:00 00:00:00 [facility] 2020-10-15 2020-10-15 Outpatient STLMLC STLMLC [id number] Common 00:00:00 00:00:00 [facility] 2020-07-12 2020-07-12 Outpatient STLMLC STLMLC [id number] Common 00:00:00 00:00:00 [facility] 2020-06-11 2020-06-11 Outpatient AMEENA, HCAPM LABO [id number] [facility] 19:25:00 19:25:00 DEVIKA [id number] [facility] 2020-06-11 2020-06-11 Outpatient AMEENA, HCAPM LABO [id number] [facility] 19:25:00 19:25:00 DEVIKA [id number] [facility] 2020-06-10 2020-06-10 Outpatient AMEENA, HCAPM LABO LA484 [id number] [facility] 10:43:00 10:43:00 DEVIKA [id number] [facility] 2020-06-10 2020-06-10 Outpatient AMEENA, HCAPM LABO [id number] [facility] 10:43:00 10:43:00 DEVIKA [id number] [facility] 2020-06-09 2020-06-09 Outpatient AMEENA, HCAPM LABO [id number] 21-20 [facility] 13:58:00 13:58:00 DEVIKA [facility] 2020-05-16 2020-05-16 Orders Doctor TOMAS [id number] 00:00:00 00:00:00 Only Unassigned, SHON[facility] [id number] [facility] [id number] 2020-05-11 2020-05-11 Outpatient STLMLC STLMLC [id number] Common 00:00:00 00:00:00 [facility] 2020-05-09 2020-05-09 Outpatient STLMLC STLMLC [id number] Common 00:00:00 00:00:00 [facility] 2020-05-06 2020-05-06 Outpatient STLMLC STLMLC [id number] Common 00:00:00 00:00:00 [facility] 2020-04-26 2020-04-26 Outpatient AMEENA, HCAPM LABO [id number] [facility] 07:57:00 07:57:00 DEVIKA [id number] [facility] 2020-04-22 2020-04-22 Outpatient SERAFIN, HCAPM LABO [id number] [facility] 07:07:00 07:07:00 MARGY [id number] [facility] 2020-04-20 2020-04-20 Outpatient Ajtye, HCAPM LABO [id number] [facility] 16:40:00 16:40:00 Emelia [id number] [facility] 2020-04-20 2020-04-20 Outpatient Ajala, HCAPM LABO [id number] [facility] 16:40:00 16:40:00 Emelia [id number] [facility] 2020-04-19 2020-04-19 Outpatient Ajala, HCAPM LABO [id number] [facility] 12:15:00 12:15:00 Emelia [id number] [facility] 2020-04-08 2020-04-08 Outpatient Nela, HCACL LABO [id number] [facility] 00:10:00 00:10:00 Zurdo [id number] [facility] 2020-03-28 2020-03-28 Outpatient STLMLC STLMLC [id number] Common 00:00:00 00:00:00 [facility] 2020-03-17 2020-03-17 [facility] [id number] Common 15:04:00 15:04:00 [place] [address] [facility] 2020-03-08 2020-03-08 [facility] [id number] Common 16:56:00 16:56:00 [place] [address] [facility] 2020-02-09 2020-02-09 [facility] [id number] Common 16:59:00 16:59:00 [place] [address] [facility] 2020-02-05 2020-02-05 [facility] [id number] Common 17:16:00 17:16:00 [place] [address] [facility] 2020-01-23 2020-01-23 Out[facility] [id number] Common 10:32:00 10:32:00 [place] [address] [facility] 2020-01-15 2020-01-15 [facility] [id number] Common 09:59:00 09:59:00 [place] [address] [facility] 2020-01-10 2020-01-10 [facility] [id number] Common 14:25:00 14:25:00 [place] [address] [facility] 2020-01-08 2020-01-08 [facility] [id number] Common 14:20:00 14:20:00 [place] [address] [facility] 2020-01-07 2020-01-07 [facility] [id number] Common 19:54:00 19:54:[address] [facility] 2020-01-04 2020-01-04 [facility] [id number] Common 13:37:00 13:37:00 [place] [address] [facility] 2019-09-13 2019-09-13 [facility] [id number] Common 09:14:00 09:14:00 [place] [address] [facility] 2019-07-01 2019-07-01 Out[facility] [id number] Common 15:38:00 15:38:00 [place] [address] [facility] 2019-06-27 2019-06-27 [facility] [id number] Common 10:00:00 10:00:00 [place] [address] [facility] 2019-06-21 2019-06-21 Out[facility] [id number] Common 14:45:00 14:45:00 [place] [address] [facility] 2019-06-16 2019-06-16 [facility] [id number] Common 15:42:00 15:42:00 [place] [address] [facility] 2019-06-14 2019-06-14 Out[facility] [id number] Common 10:40:00 10:40:00 [place] [address] [facility] 2019-06-06 2019-06-06 [facility] [id number] Common 11:00:00 11:00:00 [place] [address] [facility] 2019-06-05 2019-06-05 Out[facility] [id number] Common 16:47:00 16:47:00 [place] [address] [facility] 2019-05-12 2019-05-12 Out[facility] [id number] Common 15:40:00 15:40:00 [place] [address] [facility] 2019-04-27 2019-04-27 [facility] [id number] Common 16:10:00 16:10:00 [place] [address] [facility] 2019-04-27 2019-04-27 [facility] [id number] Common 11:20:00 11:20:00 [place] [address] [facility] 2019-04-03 2019-04-03 [facility] [id number] Common 12:04:00 12:04:00 [place] [address] [facility] 2019-03-28 2019-03-28 Outpatient [facility] [id number] Common 13:40:00 13:40:00 [place] [address] [facility] 2019-03-21 2019-03-21 [facility] [id number] Common 15:40:00 15:40:00 [place] [address] [facility] 2019-03-14 2019-03-14 [facility] [id number] Common 13:13:00 13:13:00 [place] [address] [facility] 2019-03-13 2019-03-13 [facility] [id number] Common 14:00:00 14:00:00 [place] [address] [facility] 2018-12-08 2018-12-08 Outpatient Anna Castillot [id number] Common 15:00:00 15:00:00 [facility] Results Test Description Test Time Test [...] CA) 9.6 MG/DL 8.5-10.1 N BASIC METABOLIC [id number] 14:03:00 Test Item Value Reference Range Interpretation [...] CA) 9.0 MG/DL 8.5-10.1 N CBC W/AUTO [id number] 13:54:00 Test Item Value Reference Range Interpretation [...] = MDIFF) UA RFLX MICR CULT IF [id number] 11:59:00 Test Item Value Reference Range Interpretation [...] UACULT) Criteria UA RFLX MICR CULT IF [id number] 11:55:00 Test Item Value Reference Range Interpretation [...] code = UACULT) - CT HEAD/BRAIN W/O [id number] 23:15:00 [facility] : 1945 Sex: F Name: MACRINA LAURENT [facility] : 1945 Age/S: 75 / F [address] Unit #: [id number] Loc: [place] [address] Phys: Nicole Sorensen MD Acct: [id number] Dis Date: Status: REG REF PHONE #: [phone] Exam Date: 02/11/2021 2253 FAX #: Reason: CVA, COPD, TIA EXAMS: CPT: [id number] CT HEAD/BRAI N W/O CONT 45734 DICTATION LOCATION: 8 HISTORY: Female, 75 years of age with CVA, COPD, TIA EXAM:CT BRAIN WITHOUT IV CONTRAST COMPARISON: MRI brain [...] (2314) Bree Orig Print D/T: S: 02/11/2021 (952) PAGE 1 Signed Report- MRI BRAIN W/O [id number] 15:12:00 [facility] : 1945 Sex: F FAX:Nicole Cortes MD Camps: St: REG Name: LAURENT,MACRINA Hairston [facility] : 1945 Age/S: 75/F [address] Unit #: [id number] Loc: [place] [address] Phys: Nicole Sorensen MD Acct: [id number] Dis Date: Status:REG REF PHONE #: [phone] Exam Date: 02/05/2021 1442 FAX #: Reason: CVA EXAMS: CPT: [id number] MRI BRAIN W/O CONTRAST 86180 B2 - MRI BRAIN W/O CONTRAST HISTORY: CVA TECHNIQUE: Multiplanar multisequence MR images of the brain were obtained without intravenous contrast. COMPARISON: 04/08/2020 FINDINGS: Scattered hyperintense foci in the frontal and parietal white matter on FLAIR and T2-weighted images. There is no mass, mass effect or abnormal extra-axial fluid collection. Diffusion-weighted images show no hyperacute, acute or early subacute infarction. The ventricles are normal in size, shape, and position. There are normal signal voids in the larger intracranial vessels. Moderate mucosal thicke ata with aerated secretions in the right maxillary [...] Technologist: Morenita Orta, RT(R)(MR) Transcribed Date/Time/By: 02/05/2021 (781) :[email or web address] Orig Print D/T: S: 02/05/2021 (7618) PAGE 1 Signed ReportCOVID 19 INHOUSE [id number] 19:52:00 Test Item Value Reference Range Interpretation Comments COVID 19 INHOUSE AG NEGATIVE Negative Per manu facturer, (test code = negative result s should [id number]) be treated aspr esumptive and, if inconsi [...] nicalsigns and symptoms co nsistent with COVID-19. [id number] 10:59:00 Test Item Value Reference Range Interpretation Comments AMMONIA (test code = AMM) 39 mcMOL/L 11-32 H CBC W/AUTO [id number] 14:34:00 Test Item Value Reference Range Interpretation [...] CRITERIA (test code = MDIFF) COMPREHENSIVE METABOLIC [id number] 14:33:00 Test Item Value Reference Range Interpretation [...] 45-117 N code = ALKP) CBC W/AUTO [id number] 08:08:00 Test Item Value Reference Range Interpretation [...] NO DIFF/SCN CRITERIA = MDIFF) CBC W/AUTO [id number] 07:20:00 Test Item Value Reference Range Interpretation [...] NO DIFF/SCN CRITERIA = MDIFF) CBC W/AUTO [id number] 06:15:00 Test Item Value Reference Range Interpretation [...] NO DIFF/SCN CRITERIA = MDIFF) CBC W/AUTO [id number] 16:46:00 Test Item Value Reference Range Interpretation [...] NO DIFF/SCN CRITERIA = MDIFF) CBC W/AUTO [id number] 12:23:00 Test Item Value Reference Range Interpretation [...] (test code NO DIFF/SCN CRITERIA = MDIFF) [id number] 15:11:00 Test Item Value Reference Range Interpretation Comments TRANSFERRRIN (test code 193 mg/dL 192-364 Perf ormed At: BN = TRANSF) [facility] [id number] ra [place] ZAMORA Ph:[phone] GLUCOSE BEDSIDE [id number] 13:01:00 Test Item Value Reference Range Interpretation Comments GLUCOSE BEDSIDE TESTING (test code 101 mg/dL 70-110 N = GLUBED) GLUCOSE BEDSIDE [id number] 08:35:00 Test Item Value Reference Range Interpretation Comments GLUCOSE BEDSIDE TESTING (test code 101 mg/dL 70-110 N = GLUBED) GLUCOSE BEDSIDE [id number] 19:42:00 Test Item Value Reference Range Interpretation Comments GLUCOSE BEDSIDE TESTING (test code = 93 mg/dL 70-110 N GLUBED) GLUCOSE BEDSIDE [id number] 16:13:00 Test Item Value Reference Range Interpretation Comments GLUCOSE BEDSIDE TESTING (test code = 96 mg/dL 70-110 N GLUBED) GLUCOSE BEDSIDE [id number] 12:55:00 Test Item Value Reference Range Interpretation Comments GLUCOSE BEDSIDE TESTING (test code 104 mg/dL 70-110 N = GLUBED) CBC W/AUTO [id number] 12:42:00 Test Item Value Reference Range Interpretation [...] 35 % calc 12-57 N FESAT) VITAMIN [id number] 08:58:00 Test Item Value Reference Range Interpretation Comments VITAMIN B12 (test code = VITB12) 479 PG/ML 183-986 N FOLIC [id number] 08:58:00 Test Item Value Reference Range Interpretation Comments FOLIC ACID (test code = FOL) 7.00 NG/ML 3.10-17.50 N [id number] 08:58:00 Test Item Value Reference Range Interpretation Comments FERRITIN (test code = TIO) 154.1 NG/ML 3.0-105.0 H GLUCOSE BEDSIDE [id number] 08:22:00 Test Item Value Reference Range Interpretation Comments GLUCOSE BEDSIDE TESTING (test code 107 mg/dL 70-110 N = GLUBED) BASIC METABOLIC [id number] 06:11:00 Test Item Value Reference Range Interpretation [...] CA) 8.8 MG/DL 8.5-10.1 N GLUCOSE BEDSIDE [id number] 20:03:00 Test Item Value Reference Range Interpretation Comments GLUCOSE BEDSIDE TESTING (test code 124 mg/dL 70-110 H = GLUBED) CBC W/AUTO [id number] 08:57:00 Test Item Value Reference Range Interpretation [...] NT WITH AUTO DIFFERENTI AL. CBC W/AUTO [id number] 08:57:00 Test Item Value Reference Range Interpretation [...] CONSISTA NT WITH AUTO DIFFERENTI AL. RBC [id number] 08:57:00 Test Item Value Reference Range Interpretation Comments PLATELET ESTIMATE DECREASED THOUSAND ADEQUATE PLAT ELET COUNT (test code = REVIEWED AND PLTEST) VERIFIED. PLATELET MORPHOLOGY NORMAL (test code = PLTMORPH) CBC W/AUTO [id number] 08:57:00 Test Item Value Reference Range Interpretation [...] NT WITH AUTO DIFFERENTI AL. GLUCOSE BEDSIDE [id number] 07:43:00 Test Item Value Reference Range Interpretation Comments GLUCOSE BEDSIDE TESTING (test code = 97 mg/dL 70-110 N GLUBED) BASIC METABOLIC [id number] 07:02:00 Test Item Value Reference Range Interpretation [...] code = CA) 7.8 MG/DL 8.5-10.1 L [id number] 07:02:00 Test Item Value Reference Range Interpretation Comments MAGNESIUM (test code = MAG) 1.5 MG/DL 1.8-2.4 L CBC W/AUTO [id number] 06:50:00 Test Item Value Reference Range Interpretation [...] code = DIFF/SCN CRITERIA MDIFF) GLUCOSE BEDSIDE [id number] 20:58:00 Test Item Value Reference Range Interpretation Comments GLUCOSE BEDSIDE TESTING (test code = 90 mg/dL 70-110 N GLUBED) GLUCOSE BEDSIDE [id number] 18:52:00 Test Item Value Reference Range Interpretation Comments GLUCOSE BEDSIDE TESTING (test code = 92 mg/dL 70-110 N GLUBED) BASIC METABOLIC [id number] 17:20:00 Test Item Value Reference Range Interpretation [...] = CA) 9.2 MG/DL 8.5-10.1 N CORTISOL [id number] 15:12:00 Test Item Value Reference Range Interpretation Comments CORTISOL AM (test code 9.8 ug/dL 6.2-19.4 Perfo rmed At: HD = CORTAM) [facility] [id number] stacie Grossman MD Ph:[phone] GLUCOSE BEDSIDE [id number] 14:56:00 Test Item Value Reference Range Interpretation Comments GLUCOSE BEDSIDE TESTING (test code 100 mg/dL 70-110 N = GLUBED) THYROID STIMULATING [id number] 13:24:00 Test Item Value Reference Range Interpretation Comments THYROID STIMULATING HORMONE 6.680 mcIU/ML 0.340-4.820 H (test code = TSH) - CT ABD PELVIS [id number] 11:35:00 Name: [place] : 1945 Age/S: 74 / F [address] [address] Unit #: [id number] Loc: [place] [address] Phys: Ursula Do MD Acct: [id number] Dis Date: Status: ADM IN PHONE #: [phone] Exam Date: 04/11/2020 1119 FAX #: Reason: abdominal pain EXAMS: CPT: [id number] CT ABD PELVIS W/CONT 55837 HISTORY: abdominal pain TECHNIQUE: Helical imaging of [...] cm low-density cyst arising from the left upperkidney. No hydronephrosis is seen. Mild perinephric stranding seen around each kidney. No renal nor ureteral calculi. The urinary bladder is unremarkable. There is minimal oral contrast in the stomach.No significant contrast seen in the remaining bowel. [...] beyond the wall of the IVC. The portalvein is patent. No evidence of ascites. Abdominal wall is intact. PAGE 1 Signed Report (CONTINUED) Name: MACRINA LAURENT : 1945 Age/S: 74 / F [address] [address] Unit #: [id number] Loc: [place] [address] Phys: Ursula Do MD Acct: [id number] Dis Date: Status: ADM IN PHONE #: [phone] Exam Date: 04/11/2020 1115 FAX #: Reason: abdominal pain EXAMS: CPT: [id number] CT ABD PELVIS W/CONT 49028 <Continued> No significant bone lesions. IMPRESSION: 1. [...] Trnscb Date/Time: 04/11/2020 (1135) t.[email or web address].NB16 Orig Print D/T:S: 04/11/2020 (1138) PAGE 2 Signed ReportGLUCOSE BEDSIDE [id number] 08:00:00 Test Item Value Reference Range Interpretation Comments GLUCOSE BEDSIDE TESTING (test code 152 mg/dL 70-110 H = GLUBED) CBC W/AUTO [id number] 06:43:00 Test Item Value Reference Range Interpretation [...] code NO DIFF/SCN CRITERIA = MDIFF) RBC [id number] 06:43:00 Test Item Value Reference Range Interpretation Comments PLATELET ESTIMATE (test SLIGHTLY DECREASED ADEQUATE code = PLTEST) THOUSAND PLATELET MORPHOLOGY NORMAL (test code = PLTMORPH) CBC W/AUTO [id number] 06:42:00 Test Item Value Reference Range Interpretation [...] NO DIFF/SCN CRITERIA = MDIFF) CBC W/AUTO [id number] 06:42:00 Test Item Value Reference Range Interpretation [...] NO DIFF/SCN CRITERIA = MDIFF) GLUCOSE BEDSIDE [id number] 06:33:00 Test Item Value Reference Range Interpretation Comments GLUCOSE BEDSIDE TESTING (test code 154 mg/dL 70-110 H = GLUBED) BASIC METABOLIC [id number] 06:18:00 Test Item Value Reference Range Interpretation [...] MG/DL 8.5-10.1 L - XR CHEST 1 [id number] 21:13:00 Name: MACRINA LAURENT [place] : 1945 Age/S: 74 / F [address] [address] Unit #: [id number] Loc: [place] [address] Phys: Ursula Do MD Acct: [id number] Dis Date: Status: ADM IN PHONE #: [phone] Exam Date: 04/10/20202106 FAX #: Reason: PICC LINE PLACEMENT EXAMS: CPT: [id number] XR CHEST 1 V 82193 Fluoro Time: DAP (Gy m2): Air Kerma [...] PAGE 1 Signed Report Name: MACRINA LAURENT [place] : 1945 Age/S: 74 / F [address] [address] Unit #: [id number] Loc: [place] [address] Phys: Ursula Do MD Acct: [id number] Dis Date: Status: ADM IN PHONE #: [phone] ExamDate: 04/10/20202106 FAX #: Reason: PICC LINE PLACEMENT EXAMS: CPT: [id number] XR CHEST 1 V 17738 Fluoro Time: DAP (Gy m2): Air Kerma (mGy): <Continued> Technologist: Joelle So RT(R)(CT) Trnscb Date/Time: 04/10/2020 (2112) [email or web address] Orig Print D/T: S: 04/10/2020 (2115) PAGE 2 Signed ReportGLUCOSE BEDSIDE [id number] 20:19:00 Test Item Value Reference Range Interpretation Comments GLUCOSE BEDSIDE TESTING (test code = 76 mg/dL 70-110 N GLUBED) GLUCOSE BEDSIDE [id number] 16:22:00 Test Item Value Reference Range Interpretation Comments GLUCOSE BEDSIDE TESTING (test code = 82 mg/dL 70-110 N GLUBED) CBC W/AUTO [id number] 07:47:00 Test Item Value Reference Range Interpretation [...] NO DIFF/SCN CRITERIA = MDIFF) BASIC METABOLIC [id number] 06:50:00 Test Item Value Reference Range Interpretation [...] CA) 8.8 MG/DL 8.5-10.1 N GLUCOSE BEDSIDE [id number] 00:23:00 Test Item Value Reference Range Interpretation Comments GLUCOSE BEDSIDE TESTING (test code = 88 mg/dL 70-110 N GLUBED) GLUCOSE BEDSIDE [id number] 22:47:00 Test Item Value Reference Range Interpretation Comments GLUCOSE BEDSIDE TESTING (test code = 50 mg/dL 70-110 L GLUBED) GLUCOSE BEDSIDE [id number] 20:50:00 Test Item Value Reference Range Interpretation Comments GLUCOSE BEDSIDE TESTING (test code = 62 mg/dL 70-110 L GLUBED) BASIC METABOLIC [id number] 19:19:00 Test Item Value Reference Range Interpretation [...] CA) 9.5 MG/DL 8.5-10.1 N BASIC METABOLIC [id number] 15:26:00 Test Item Value Reference Range Interpretation [...] CA) 9.0 MG/DL 8.5-10.1 N GLUCOSE BEDSIDE [id number] 12:06:00 Test Item Value Reference Range Interpretation Comments GLUCOSE BEDSIDE TESTING (test code = 81 mg/dL 70-110 N GLUBED) GLUCOSE BEDSIDE [id number] 12:06:00 Test Item Value Reference Range Interpretation Comments GLUCOSE BEDSIDE TESTING (test code = 54 mg/dL 70-110 L GLUBED) GLUCOSE BEDSIDE [id number] 08:14:00 Test Item Value Reference Range Interpretation Comments GLUCOSE BEDSIDE TESTING (test code = 46 mg/dL 70-110 L GLUBED) GLUCOSE BEDSIDE [id number] 08:14:00 Test Item Value Reference Range Interpretation Comments GLUCOSE BEDSIDE TESTING (test code = 34 mg/dL 70-110 LL GLUBED) CBC W/AUTO [id number] 06:08:00 Test Item Value Reference Range Interpretation [...] code NO DIFF/SCN CRITERIA = MDIFF) RBC [id number] 06:08:00 Test Item Value Reference Range Interpretation Comments PLATELET ESTIMATE DECREASED ADEQUATE PLATELET C OUNT (test code = THOUSAND VERIFIED BY PLTEST) EXAMINATION OF PERIPHERAL BLOODSMEAR.MANU AL PLT ESTIMATE 92,000-115,000 PLATELET NORMAL MORPHOLOGY (test code = PLTMORPH) CBC W/AUTO [id number] 06:07:00 Test Item Value Reference Range Interpretation [...] NO DIFF/SCN CRITERIA = MDIFF) CBC W/AUTO [id number] 06:07:00 Test Item Value Reference Range Interpretation [...] NO DIFF/SCN CRITERIA = MDIFF) BASIC METABOLIC [id number] 06:06:00 Test Item Value Reference Range Interpretation [...] CA) 9.4 MG/DL 8.5-10.1 N CBC W/AUTO [id number] 05:48:00 Test Item Value Reference Range Interpretation [...] DIFF/SCN CRITERIA MDIFF) - MRI BRAIN W/O [id number] 19:59:00 FAX: Zurdo Perales MD [phone] Camps: PM St: ADM Name: MACRINA LAURENT [place] : 1945 Age/S: 74/F [address] [address] Unit #: [id number] Loc: L.ICU0 [place] [address] Phys: Zurdo Rondon MD Acct: [id number] Dis Date: Status: ADM IN PHONE #: [phone] Exam Date: 04/08/2020 7735 FAX #: Reason: ISCHEMIC STROKE EXAMS: CPT: [id number] MRI BRAIN W/O CONTRAST 14365 LOCATION CODE H 31 MRI BRAIN WITHOUT CONTRAST HISTORY: Ischemic stroke COMPARISON: CT brain from prior day TECHNIQUE: Axial GRE, axialT2, axial T1, axial T2 FLAIR, coronal T2, [...] normal in signal intensity. Normal signal void inthe carotid and basilar arteries along with superior sagittal sinus is present. Optic chiasm, pituitary stalk, and cavernous sinus regions appear within normal limits. IMPRESSION: 1. No evidence of acute ischemia or infarct. 2. Moderate diffuse periventricular white matter chronic microvascular changes. PAGE 1 Signed Report (CONTINUED) FAX: Zurdo Perales MD [phone] Camps: PM St: ADM-------- Name: MACRINA LAURENT [place] : 1945 Age/S: 74/F [address] [address] Unit #: [id number] Loc: L.ICU0 [place] [address] Phys: Zurdo Rondon MD Acct: [id number] Dis Date: Status: ADM IN PHONE #: [phone] Exam Date: 04/08/2020 1730 FAX #: Reason: ISCHEMIC STROKE EXAMS: CPT: [id number] MRI BRAIN W/O CONTRAST 02506 <Continued> at 1958 Reported and signed by: Karey Oconnor MD CC: Zurdo Rondon MD Technologist: RT Rajat(R)(MR) Transcribed Date/Time/By: 04/08/2020 (1958) :[email or web address] Orig Print D/T: S: 04/08/2020 (2001) PAGE 2 Signed Report- XR SHOULDER 2+V [id number] 16:42:00 Name: MACRINA LAURENT [place] : 1945 Age/S: 74 / F [address] [facility] Unit #: [id number] Loc: [place] [address] Phys: Zurdo Rondon MD Acct: [id number] Dis Date: Status: ADM IN PHONE#: [phone] Exam Date: 04/08/2020 1630 FAX #: Reason: left shoulder pain EXAMS: CPT: [id number] XR SHOULDER 2+[place] [address] Fluoro Time: [...] MD PAGE 1 Signed Report Name: [place] : 1945 Age/S: 74 / F [address] [address] Unit #: [id number] Loc: [place] [address] Phys: Zurdo Rondon MD Acct: [id number] Dis Date: Status: ADM IN PHONE #: [phone] Exam Date: 04/08/2020 1630 FAX #: Reason: left shoulder pain EXAMS: CPT: [id number] XR SHOULDER 2+[place] [address] Fluoro Time: DAP (Gy m2): Air Kerma (mGy): <Continued> Technologist: Kimmie Curtis RT(R)(CT) Trnscb Date/Time: 04/08/2020 (1641) [id number] Orig Print D/T: S: 04/08/2020 (6815) PAGE 2 Signed [id number] 06:02:00 Test Item Value Reference Range Interpretation [...] may nella yby method. Completed by Nursing: [facility] [id number] 05:37:00 Test Item Value Reference Range Interpretation [...] Ratio 1.48-3.22 Avg L Comment: FASTING IN [id number] 05:37:00 Test Item Value Reference Range Interpretation Comments GLYCOSYLATED HEMOGLOBIN (HA1C) 5.0 % A1C 0.0-5.7 N (test code = GLYHGB) ESTIMATED AVERAGE GLUCOSE (test 97 MG/DLest code = EAG) CBC W/AUTO [id number] 05:23:00 Test Item Value Reference Range Interpretation [...] (test code NO DIFF/SCN CRITERIA = MDIFF) [id number] 21:26:00 Test Item Value Reference Range Interpretation [...] nella yby method. Completed by Nursing: NOVITAMIN [id number] 19:04:00 Test Item Value Reference Range Interpretation Comments VITAMIN B12 (test code = VITB12) 376 PG/ML 183-986 N FOLIC [id number] 19:04:00 Test Item Value Reference Range Interpretation Comments FOLIC ACID (test code = FOL) 6.20 NG/ML 3.10-17.50 N THYROID STIMULATING [id number] 19:04:00 Test Item Value Reference Range Interpretation Comments THYROID STIMULATING HORMONE 3.100 mcIU/ML 0.340-4.820 N (test code = TSH) CARBAMAZEPINE (TEGRETOL)2020-04-07 19:04:00 Test Item Value Reference Range Interpretation Comments CARBAMAZEPINE (TEGRETOL) (test < 0.5 mcG/ML 4.0-12.0 L code = CARB) VALPROIC ACID (DEPAKENE)2020-04-07 19:04:00 Test Item Value Reference Range Interpretation Comments VALPROIC ACID (DEPAKENE) (test 53.7 mcG/ML 50.0-100.0 N code = VALP) VITAMIN [id number] 18:35:00 Test Item Value Reference Range Interpretation Comments VITAMIN B12 (test code = VITB12) 376 PG/ML 183-986 N FOLIC [id number] 18:35:00 Test Item Value Reference Range Interpretation Comments FOLIC ACID (test code = FOL) 6.20 NG/ML 3.10-17.50 N THYROID STIMULATING [id number] 18:35:00 Test Item Value Reference Range Interpretation Comments THYROID STIMULATING HORMONE 3.100 mcIU/ML 0.340-4.820 N (test code = TSH) CARBAMAZEPINE (TEGRETOL)2020-04-07 18:35:00 Test Item Value Reference Range Interpretation Comments CARBAMAZEPINE (TEGRETOL) (test code = mcG/ML 4.0-12.0 CARB) VALPROIC ACID (DEPAKENE)2020-04-07 18:35:00 Test Item Value Reference Range Interpretation Comments VALPROIC ACID (DEPAKENE) (test code = mcG/ML 50.0-100.0 VALP) [id number] 18:17:00 Test Item Value Reference Range Interpretation [...] method. Completed by Nursing: NOCOVID 19 INHOUSE [id number] 16:14:00 Test Item Value Reference Range Interpretation Comments COVID 19 INHOUSE AG NEGATIVE Negative Per manu facturer, (test code = negative result s should [id number]) be treated aspr esumptive and, if inconsi [...] symptoms co nsistent with COVID-19. GLUCOSE BEDSIDE [id number] 16:06:00 Test Item Value Reference Range Interpretation Comments GLUCOSE BEDSIDE TESTING (test code = 79 mg/dL 70-110 N GLUBED) UA RFLX MICR CULT IF [id number] 15:35:00 Test Item Value Reference Range Interpretation [...] UACULT) Indication for culture: RiskForSepsis-no oth srcPROTHROMBIN [id number] 14:58:00 Test Item Value Reference Range Interpretation Comments PT PATIENT (test code = PTP) 11.2 SECONDS 9.3-12.9 N INTERNATIONAL NORMAL RATIO 0.99 INR Unit 0.8-1.2 N (test code = INR) THROMBOPLASTIN TIME [id number] 14:58:00 Test Item Value Reference Range Interpretation Comments THROMBOPLASTIN TIME PARTIAL 21.3 SECONDS 26-35 L (test code = PTT) BASIC METABOLIC [id number] 14:46:00 Test Item Value Reference Range Interpretation [...] 9.1 MG/DL 8.5-10.1 N Completed by Nursing: [id number] 14:46:00 Test Item Value Reference Range Interpretation [...] method. Completed by Nursing: NO- CT ANGIO [id number] 14:46:00 Name: MACRINA LAURENT : 1945 Age/S: 74 / F [address] [address] Unit #: [id number] Loc: [place] [address] Phys: Jc Garcia MD Acct: [id number] Dis Date: Status: PRE ER PHONE #: [phone] Exam Date: 04/07/2020 1430 FAX #: Reason: ams, slurred speech EXAMS: CPT: [id number] ANGIO NECK 85010 EXAM: - CT ANGIO HEAD, - CT ANGIO NECK Location: C3 HISTORY: 74 years old Femalewith ams, slurred speech TECHNIQUE: Axial slices were obtained through the head and neck during bolus administration of IV contrast timed to maximally opacify the carotid arteries. Images were reviewedon a 3D workstation using MPR, MIP, and [...] carotid artery are patent and demonstrate no abn ormality. ? Extracranial Vertebral Arterial System: The RIGHT vertebral artery demonstrates no abnormality. The LEFT vertebral artery demonstrates no abnormality. The vertebral arteries are codominant.? Intracranial Anterior Circulation: Mild scattered atherosclerotic calcifications are noted about the cavernous internal carotid arteries. The RIGHT anterior circulation including the right internal carotid artery, middle cerebral artery, and anterior cerebral artery demonstrates no abnormality. The LEFT anterior circulation including the left internal carotid artery, middle cerebral artery, and anterior cerebral artery demonstrates no abnormality. The anterior communicating artery is unremarkable.No posterior communicating arteries are identified. ? Vertebrobasilar Circulation: The basilar artery is unremarkable. PAGE 1 Signed Report (CONTINUED) Name: MACRINA LAURENT [place] : [birth year]Age/S: 74 / F [address] [address] Unit #: [id number] Loc: [place] [address] Phys: Jc Garcia [facility]: [id number] Dis Date: Status: PRE ER PHONE #: [phone] Exam Date: 04/07/2020 3450 FAX #: Reason: ams, slurred speech EXAMS: CPT: [id number] CT ANGIO NECK [address]8946 <Continued> The RIGHT posterior cerebral artery, superior [...] significance. Marked, degenerative changes of spine. No osseo us abnormality is identified. IMPRESSION: No evidence of abrupt vessel cut off, vascular occlusion, aneurysm or dissection in the visualized vessels of the head or neck. Incidentally noted multinodular thyroid goiter. Findings may be further assessed with correlation with TFTs and/or nonemergent thyroid ultrasound for further evaluation. Visualized lung apices demonstrate findings of mild pulmonaryedema. There is a nonspecific 3 mm right upper lobe pulmonary nodule, of doubtful clinical significance. at 1446 Reported and signed by: Alina Marcum M.D. CC: Jc Garcia MD Technologist:RT Jesse(Lul)(CT)CTDI: DLP: Trnscb Date/Time: 04/07/2020 (1446) Ansley.[email or web address] Orig Print D/T: S: 04/07/2020 (2130) PAGE 2Signed Report- CT ANGIO [id number] 14:46:00 Name: MACRINA LAURENT [facility] : 1945 Age/S: 74 / F [address] [address] Unit #: [id number] Loc: [place] [address] Phys: Jc Garcia MD Acct: [id number] Dis Date: Status: PRE ER PHONE #: [phone] Exam Date: 04/07/2020 1423 FAX #: Reason: ams, slurred speech EXAMS: CPT: [id number] ANGIO HEAD 85842 EXAM: - CT ANGIO HEAD, - CT ANGIO NECK Location: C3 HISTORY: 74 years old Femalewith ams, slurred speech TECHNIQUE: Axial slices were obtained through the head and neck during bolus administration of IV contrast timed to maximally opacify the carotid arteries. Images were reviewedon a 3D workstation using MPR, MIP, and [...] demonstrates no abnormality. The vertebral arteries are codominant.? Intracranial Anterior Circulation: Mild scattered atherosclerotic calcifications are noted about the cavernous internal carotid arteries. The RIGHT anterior circulation including the right internal carotid artery, middle cerebral artery, and anterior cerebral artery demonstrates no abnormality. The LEFT anterior circulation including the left internal carotid artery, middle cerebral artery, and anterior cerebral artery demonstrates no abnormality. The anterior communicating artery is unremarkable.No posterior communicating arteries are identified. ? Vertebrobasilar Circulation: The basilar artery is unremarkable. PAGE 1 Signed Report (CONTINUED) Name: MACRINA LAURENT [place] : 8Age/S: 74 / [address] Unit #: [id number] Loc: [place] [address] [id number] Dis Date: Status: PRE ER PHONE #: [phone] Exam Date: 04/07/2020 0812 FAX #: Reason: ams, slurred speech EXAMS: CPT: [id number] CT ANGIO HEAD [address]646 <Continued> The RIGHT posterior cerebral artery, superior [...] significance. Marked, degenerative changes of spine. No osseo us abnormality is identified. IMPRESSION: No evidence of abrupt vessel cut off, vascular occlusion, aneurysm or dissection in the visualized vessels of the head or neck. Incidentally noted multinodular thyroid goiter. Findings may be further assessed with correlation with TFTs and/or nonemergent thyroid ultrasound for further evaluation. Visualized lung apices demonstrate findings of mild pulmonaryedema. There is a nonspecific 3 mm right upper lobe pulmonary nodule, of doubtful clinical significance. at 1446 Reported and signed by: Alina Marcum M.D. CC: Jc Garcia MD Technologist:RT Jesse(R)(CT)CTDI: DLP: Trnscb Date/Time: 04/07/2020 (0403) t.NOÉR.KW9 Orig Print D/T: S: 04/07/2020 (8111) PAGE 2Signed Report- XR CHEST 1 [id number] 14:37:00 Name: MACRINA LAURENT [place] : 1945 Age/S: 74 / F [address] Unit #: [id number] Loc: [place] [address] Phys: Jc Garcia MD Acct: [id number] Dis Date: Status: PRE ER PHONE #: [phone] Exam Date: 04/07/2020 2358 FAX #: Reason: Code Stroke EXAMS: CPT: [id number] XR CHEST 1 V 20043 Fluoro Time: DAP (Gy m2): Air Kerma (mGy): EXAM: - XR CHEST 1 V Location code:C3 HISTORY: Stroke COMPARISON: None available time of interpretation. FINDINGS: Frontal view of the chest is submitted. Heart size within normal limits. Low lung volumes with mild to moderate bronchovascular crowding. The lungs are clear of focal consolidation. No effusion or evidence of pneumothorax.. Not fullyincluded in the cdjfs-fz-pwfl, there appears to be cortical irregularity about the left humeral head, which may represent fracture; age indeterminate. An IVC filter is partially seen in the upper abdomen. IMPRESSION 1. Low lung volumes and bronchovascular crowding. Otherwise, No radiographic evidence of acute cardiopulmonary process. 2. Not fully included in the pmrpf-jb-plgn, there appears to be cortical irregularity about the left humeral head, which may represent fracture; age indeterminate. Correlate with point tenderness on physical exam. Additional dedicated radiographs of the left shoulder and/or humerus may be obtained if it is clinically warranted. at 1437 Reported and signed by: Alina Marcum M.D. CC: Jc Garcia MD PAGE 1 Signed Report Name: MACRINA LAURENT [place] : 1945 Age/S: 74 / F [address] Unit #: [id number] Loc: [place] [address] Phys: Jc Garcia MD Acct: [id number] Dis Date: Status: PRE ER PHONE #: [phone] Exam Date: 04/07/2020 1432 FAX #: Reason: Code Stroke EXAMS: CPT: [id number] XR CHEST 1 V 51668 Fluoro Time: DAP (Gy m2): Air Kerma (mGy): <C ontinued> Technologist: Courtney Roland RT(R) Trnscb Date/Time: 04/07/2020 (1437) KingKW9 Orig Print D/T: S: 04/07/2020 (6834) PAGE 2 Signed ReportCBC W/O [id number] 14:23:00 Test Item Value Reference Range Interpretation [...] 7.0-10.5 N MPV) - CT HEAD/BRAIN W/O [id number] 14:23:00 Name: [place] : 1945 Age/S: 74 / F [address] Unit #: [id number] Loc: [place] [address] Phys: Jc Garcia MD Acct: [id number] Dis Date: Status: PRE ER PHONE #: [phone] Exam Date: 04/07/2020 1413 FAX #: Reason: Code Stroke EXAMS: CPT: [id number] CT HEAD/BRAIN W/O CONT 29338 EXAM: - CT HEAD/BRAIN W/O CONT HISTORY: [...] available time of interpretation. FINDINGS: There is no [...] sinuses are relatively clear. The soft tissues areunremarkable. IMPRESSION: No acute intracranial abnormality with no evidence of intracranial mass effect, hemorrhage or acute infarction. 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 Dr. Marcum called these findings to Jc Garcia MD on 04/07/2020 2:20 PM PAGE 1 Signed Report (CONTINUED) Name: MACRINA LAURENT : 1945 Age/S: 74 / F [address] Unit #: [id number] Loc: [place] [address] Phys: Jc Garcia MD Acct: [id number] Dis Date: Status: PRE ER PHONE #: [phone] Exam Date: 04/07/2020 1413 FAX #: Reason: Code Stroke EXAMS: CPT: [id number] CT HEAD/BRAIN W/O CONT 40401 <Continued> at 1423 Reported and signed by: Alina Marcum M.D. CC: Jc Garcia MD Technologist:RT Jesse(R)(CT) CTDI: DLP: Trnscb Date/Time: 04/07/2020 (1423) t.SDR.KW9/t.SDR.KW9 Orig Print D/T: S: 04/07/2020 (0779) PAGE 2 Signed ReportSARS-COV2/RT-PCR ([facility])2019-10-19 13:24:00 Test Item Value Reference Range Interpretation Comments SARS-COV2/RT-PCR (test Not Detected Not Detected, Negative code = 7121497) SARS-COV-2 PERFORMING LAB [facility] (test code = 3034681) Negative results do not preclude SARS-CoV-2 infection [...] of the Act.Fact Sheet for Healthcare Pro viders:https://www.iMusician/Documents/Xpert%20Xpress%20SARS%20CoV-2/Fact%20Sh eets/302-3802%47SLFR-QVQ-3%20HEALTHCARE%20PROVIDERS%20FACT%20SHEET.pdfFact Sheet for Healthcare Patients:https://www.Metaversum/Documents/Xpert%20Xpress%20SARS%20CoV-2/Fact%20Sheets/302-3801%20SARS-COV -2%20PATIENT%20FACT%20SHEET.pdfPerforming Laboratory:[facility], [place] [address]WEBMTRPJ ACID (DEPAKENE)2019-08-31 07:37:00 Test Item Value Reference Range Interpretation Comments VALPROIC ACID (DEPAKENE) (test 45.7 ug/mL 50.0-100.0 L code = VALP) HGBA1C - GLYCOSYLATED [id number] 14:38:00 Test Item Value Reference Range Interpretation Comments GLYCOSYLATED HEMOGLOBIN (HA1C) (test 4.7 % 4.0-6.0 N code = GLYHGB) URINALYSIS [id number] 13:31:00 Test Item Value Reference Range Interpretation [...] = BACU) 3+ /HPF NEGATIVE A URINALYSIS [id number] 13:20:00 Test Item Value Reference Range Interpretation [...] code = BACU) /HPF NEGATIVE BASIC METABOLIC [id number] 12:49:00 Test Item Value Reference Range Interpretation [...] 9.2 mg/dL 8.6-10.4 N CA) BASIC METABOLIC [id number] 12:43:00 Test Item Value Reference Range Interpretation [...] code = mg/dL 8.6-10.4 CA) CBC W/AUTO [id number] 12:02:00 Test Item Value Reference Range Interpretation [...] AVG 3 .43 FEMALE: 1/2 AVG 3.27 AV G 4.97 AVG 4.44 2X AVG 9.55 2X AVG 7.05 3X AVG 23.39 3X AVG 11.04~~~~~~~~~~ ~~~~~~~~ ~~~~~~~~~~~~~~~ ~~~~~~~~ ~~~~~~~~~~~~~~~ ~~~~Yudith onal Cholestero l Education (NCEP ) Guidelines:~~~~ ~~~~~~~~ ~~~~~~~~~~~~~~~ ~~~~~~~~ ~~~~~~~~~~~~~~~ ~~~~~~~~ ~~ HDL Cholesterol<4 0mg/dL: HDL Cholesterol (Major risk factor for CHD)>60mg/dL: H DL Cholesterol (Ne gative risk factor for CHD)40-59mg/dL: Borderline Risk LDL Cholesterol<1 00mg/dL: Desirable LDL-C [id number] 0-159mg/ dL: Borderline High Risk LDL-C extysioobtsak78 0-189mg/ dL: High risk L DL-C concentration H DL-LDL Cholesterol is affected by a number of factors suchas smoking, age and sex.~~~~~~~~~~~ ~~~~~~~~ ~~~~~~~~~~~~~~~ ~~~~~~~~ ~~~~~~~~~~~~~~~ ~~~ THYROID STIMULATING [id number] 12:09:00 Test Item Value Reference Range Interpretation Comments THYROID STIMULATING HORMONE (test 8.41 mIU/mL 0.38-5.60 H code = TSH)
[2022-03-08] MEDS ORDERED: RSI MEDICATION KIT IV ONE (07:15)
[2022-03-08] MEDS ORDERED: MIDAZOLAM HCL 2 MG/2 ML INJ ONE (07:30)
[2022-03-08] MEDS ORDERED: NA CHLORIDE 0.9% 2,000 ML ONE (07:36)
[2022-03-08 07:39] LABS: Absolute Lymphocytes (CBC) 0.6 K/uL (0.7-4.9); Hematocrit 28.5 % (36.0-45.0); Lymphocytes % 6.8 % (15.3-44.8); MCV 97.3 fL (80-100); MPV 8.2 fL (7.6-11.3); RBC Red Blood Cell Count 2.92 M/uL (3.86-4.86)
[2022-03-08 07:48] LABS: Protime INR 1.2
[2022-03-08] MEDS ORDERED: NA CHLORIDE 0.9% 1,000 ML ONE (07:50)
[2022-03-08] MEDS ORDERED: NOREPINEPHRINE BITARTRATE/D5W 4 MG/250 ML BAG IV ONE ×2 (07:56→10:19)
--- NOTE | 2022-03-08 07:56 | EDPHYS ---
Physician Documentation [facility] Name: Macrina Mason Age: 76 yrs Sex: Female : 1945 Arrival Date: 03/08/2022 Time: 06:54 Bed 3 Private MD: ED Physician Kevyn Carrillo HPI: 03/08 08:13 This 76 yrs old Female presents to ER via EMS with complaints of Unresponsive. kdr 08:13 Patient [facility] staff. There was no information provided as to any issues leading up to this event this morning.. Onset: The symptoms/episode began/occurred this morning. Severity of symptoms: At their worst the symptoms were incapacitating in the emergency department the symptoms are unchanged. It is unknown whether or not the patient has had similar symptoms in the past. It is unknown whether or not the patient has recently seen a physician. Historical: - Allergies: 07:20 No Known Allergies; ke1 - PMHx: 07:20 Alzheimer's disease; Bipolar disorder; COPD; CHF; Parkinsons; Hyperlipidemia; ke1 - Immunization history:: Adult Immunizations unknown. - Social history:: Smoking status: unknown. ROS: 08:13 Constitutional: Unable to obtain secondary to altered mental status kdr 08:13 Unable to obtain ROS due to altered mental status. Exam: 08:13 Constitutional: This is a well developed, well nourished patient who is poorly kdr responsive and in mild to moderate distress Head/Face: Normocephalic, atraumatic. Eyes: Pupils equal round and reactive to light, extra-ocular motions intact. Lids and lashes normal. Conjunctiva and sclera are non-icteric and not injected. Cornea within normal limits. Periorbital areas with no swelling, redness, or edema. 08:21 Neck: Trachea midline, no thyromegaly or masses palpated, and no cervical kdr lymphadenopathy. Supple, full range of motion without nuchal rigidity, or vertebral point tenderness. No Meningismus. Chest/axilla: Normal chest wall appearance and motion. Nontender with no deformity. No lesions are appreciated. Cardiovascular: Regular rate and rhythm with a normal S1 and S2. No gallops, murmurs, or rubs. Normal PMI, no JVD. No pulse deficits. 08:21 Respiratory: Patient is on a ventilator, Respirations: Breath sounds: bronchial sounds, that are moderate, are scattered, are heard diffusely, stridor, is not appreciated, + upper airway congestion. wheezing: inspiratory that is mild, is heard diffusely. 08:55 ECG was reviewed by the Attending Physician. kdr Vital Signs: 06:47 BP 114 / 64; Pulse 145; Resp 18; Temp 98.6; Pulse Ox 96% on Non-rebreather mask; ke1 07:38 Weight 90.72 kg (R); jd3 07:45 BP 53 / 3; Pulse 111; jd3 07:50 BP 119 / 60; Pulse 123; Resp 14; Pulse Ox 99% on ETT ambu; jd3 08:20 BP 113 / 72; Pulse 79; Resp 14; Pulse Ox 99% on ETT vent; jd3 08:44 BP 103 / 47; Pulse 63; Resp 14; Temp 99.0(C); Pulse Ox 97% on ETT vent; jd3 09:00 BP 100 / 93; Pulse 74; Resp 14; Temp 98.7(C); Pulse Ox 98% on ETT vent; jd3 09:15 BP 117 / 70; Pulse 75; Resp 14; Temp 98.6(C); Pulse Ox 95% on ETT vent; jd3 09:30 BP 102 / 55; Pulse 79; Resp 14; Pulse Ox 89% on ETT vent; jd3 09:45 BP 89 / 59; Pulse 77; Resp 14; Pulse Ox 96% on ETT vent; jd3 10:00 BP 86 / 60; Pulse 92; Resp 15; Pulse Ox 96% on ETT vent; jd3 10:15 BP 87 / 73; Pulse 70; Resp 14; Pulse Ox 93% on ETT vent; jd3 10:30 BP 105 / 86; Pulse 68; Resp 14; Pulse Ox 94% on ETT vent; jd3 10:45 BP 93 / 59; Pulse 72; Resp 14; Pulse Ox 99% on ETT vent; jd3 11:00 BP 87 / 67; Pulse 85; Resp 17; Temp 98.2; Pulse Ox 100% on ETT vent; jd3 09:30 RT paged for low O2. vent conections checked and pt suctioned. jd3 09:45 RT at bedside adjusting vent settings jd3 Procedures: 08:01 Intubation: Ventilated with 100% NRB prior to procedure. Intubated orally using # 4 joelle Harini blade with 7.5 mm ETT. was successful on first attempt. Ventilated with Ambu bag. Tube secured with ETT gonzalez at right side of mouth measured 23 cm at lip. Placement verified by CXR, CO2 detector with (+) color change, auscultating bilateral breath sounds, O2 saturation after procedure was 98 %. Patient tolerated well. Central Line: the site was prepped with Betadine, in sterile fashion, a triple lumen catheter was inserted, in the right in 2 attempts. placement was verified, by blood return, the site was dressed with Tegaderm, using sterile technique, the patient tolerated the procedure, well. MDM: 07:56 Patient medically screened. kdr 08:23 Data reviewed: vital signs, nurses notes, lab test result(s), EKG, radiologic studies. kdr Counseling: I had a detailed discussion with the patient and/or guardian regarding: the historical points, exam findings, and any diagnostic results supporting the discharge/admit diagnosis, lab results, radiology results, the need for further work-up and treatment in the hospital. 03/08 07:12 Order name: Blood Culture Adult (2) 03/08 07:12 Order name: CBC with Diff; Complete Time: 08:34 iw 03/08 07:12 Order name: CMP; Complete Time: 08:57 iw 03/08 07:12 Order name: Lactate; Complete Time: 08:34 iw 03/08 07:12 Order name: Protime (+inr); Complete Time: 08:34 iw 03/08 07:12 Order name: Ptt, Activated; Complete Time: 08:34 iw 03/08 07:12 Order name: Urine Culture 03/08 07:12 Order name: Urine Microscopic Only; Complete Time: 08:57 03/08 07:16 Order name: glucometer results - FOR PT WITH NO ID; Complete Time: 08:57 iw 03/08 08:02 Order name: Urine Dipstick-Ancillary; Complete Time: 08:34 EDMS 03/08 08:04 Order name: Basic Metabolic Panel joelle 03/08 08:04 Order name: LFT's joelle 03/08 08:04 Order name: Magnesium joelle 03/08 08:04 Order name: NT PRO-BNP [facility] 03/08 07:12 Order name: Accucheck; Complete Time: 07:29 03/08 07:12 Order name: Cardiac monitoring; Complete Time: 08:20 03/08 07:12 Order name: EKG - Nurse/Tech; Complete Time: 08:44 03/08 07:37 Order name: CXR XRAY; Complete Time: 11:11 03/08 08:04 Order name: Troponin HS [facility] 03/08 08:04 Order name: EKG; Complete Time: 08:05 [facility] 03/08 08:04 Order name: Lipase [facility] 03/08 08:04 Order name: ABG; Complete Time: 11:11 [facility] 03/08 08:04 Order name: SARS-COV-2 RT PCR (Document "Date of Onset" if Symptomatic); Complete Time: [facility] 11:03/08 08:04 Order name: Influenza Screen (a \\T\\ B); Complete Time: 11:11 [facility] 03/08 07:12 Order name: IV Saline Lock - Large Bore; Complete Time: 08:20 03/08 07:12 Order name: Labs collected and sent; Complete Time: 08:20 03/08 07:12 Order name: O2 Per Protocol; Complete Time: 08:20 03/08 07:12 Order name: O2 Sat Monitoring; Complete Time: 08:20 03/08 07:12 Order name: Urine Dipstick-Ancillary (obtain specimen); Complete Time: 08:57 03/08 08:04 Order name: IV Saline Lock; Complete Time: 08:20 [facility] 03/08 08:04 Order name: Central Line Kit; Complete Time: 08:20 [facility] EC:55 Rate is 61 beats/min. Rhythm is regular, Sinus arrythmia with No ectopy. QRS [place] is kdr Normal. CT interval is normal. QRS interval is normal. QT interval is normal. Clinical impression: NSR w/ Non-specific ST/T Changes and Sinus arrythmia. Administered Medications: 07:30 Drug: NS 0.9% (30 ml/kg) 30 ml/kg Route: IV; Rate: bolus; Site: right femoral; jd3 09:00 Follow up: Response: No adverse reaction; IV Status: Completed infusion; IV Intake: jd3 2700ml 07:30 Drug: Midazolam 4 mg Route: IVP; Site: right femoral; jd3 08:30 Follow up: Response: No adverse reaction jd3 07:30 Drug: Etomidate 20 mg Route: IVP; Site: right femoral; jd3 08:30 Follow up: Response: No adverse reaction jd3 07:45 Drug: Levophed (norepinephrine) 0.1 mcg/kg/min Route: IV; Rate: calculated rate; Site: [facility] right femoral; 11:59 Follow up: Response: No adverse reaction; IV Status: Infusion continued upon admission jd3 08:25 Drug: Pepcid (famotidine) 40 mg Route: IVP; Site: right wrist; jd3 09:25 Follow up: Response: No adverse reaction jd3 08:27 Drug: Zosyn (piperacillin-tazobactam) 3.375 grams Route: IVPB; Infused Over: 60 mins; jd3 Site: right wrist; 09:27 Follow up: Response: No adverse reaction; IV Status: Completed infusion jd3 Disposition Summary: 03/08/22 07:56 Hospitalization Ordered Hospitalization Status: Inpatient Admission kdr Location: Intensive Care Unit kdr Condition: Critical kdr Problem: new kdr Symptoms: have improved kdr Bed/Room Type: Standard kdr Provider: Salas Lares(03/08/22 10:05) kdr Room Assignment: 2-(03/08/22 11:09) dg Diagnosis - Altered mental status, unspecified kdr - Hypotension, unspecified kdr Forms: - Medication Reconciliation Form kdr - SBAR form kdr Signatures: Dispatcher [employer] EDKameron Ventura MD MD cha Rittger, Kevin, MD MD kdr Williams, Irene, RN RN iw Davies, Jonathon, RN RN jd3 Botello, Elizabeth eb Ebrottie, Kouassi, RN RN ke1 Corrections: (The following items were deleted from the chart) 08:24 07:56 Salas Lares kdr kdr 10:05 08:24 Casye Stevens kdr kdr 10:47 07:56 kdr eb 11:09 10:47 4- eb dg
--- NOTE | 2022-03-08 07:56 | ER ---
Nurse's Notes [facility] Name: Macrina Mason Age: 76 yrs Sex: Female : 1945 Arrival Date: 03/08/2022 Time: 06:54 Bed 3 Private MD: Diagnosis: Altered mental status, unspecified;Hypotension, unspecified Presentation: 03/08 06:47 Chief complaint: EMS states: Patient found unresponsive by staff [facility]. Coronavirus screen:. Ebola Screen: No symptoms or risks identified at this time. Initial Sepsis Screen: Does the patient meet any 2 criteria? No. Patient's initial sepsis screen is negative. Does the patient have a suspected source of infection? No. Patient's initial sepsis screen is negative. Risk Assessment: Do you want to hurt yourself or someone else? Patient reports no desire to harm self or others. Onset of symptoms was March 08, 2022 at 06:15. 06:47 Method Of Arrival: EMS: [facility] 06:47 Acuity: [facility] Triage Assessment: 06:47 General: Appears distressed, Behavior is unresponsive. Pain: Unable to use pain scale. ke1 Patient is unresponsive. Neuro: Level of Consciousness is unresponsive. Respiratory: Airway is patent Trachea midline Respiratory effort is On NRBM. Respiratory: Breath sounds with crackles bilaterally. Historical: - Allergies: 07:20 No Known Allergies; ke1 - PMHx: 07:20 Alzheimer's disease; Bipolar disorder; COPD; CHF; Parkinsons; Hyperlipidemia; [facility] - Immunization history:: Adult Immunizations unknown. - Social history:: Smoking status: unknown. Screenin:22 Abuse screen: Denies threats or abuse. Nutritional screening: No deficits noted. [facility] Tuberculosis screening: No symptoms or risk factors identified. 08:46 Fall Risk Gait- Impaired (20 pts.). Mental Status- Overestimates/Forgets Limitations jd3 (15 pts.). Total Sandoval Fall Scale indicates Low Risk Score (25-44 pts). Fall prevention measures have been instituted. Side Rails Up X 2 Placed close to Nursing Station Frequent Obs/Assesments occuring. Assessment: 07:10 General: Appears distressed, Behavior is listless. Pain: Unable to use pain scale. jd3 Patient is disoriented. Neuro: Esposito Agitation-Sedation Scale (RASS): -1 Drowsy Level of Consciousness is awake, confused, lethargic, Oriented to none. Cardiovascular: Heart tones present Rhythm is sinus tachycardia. Respiratory: Respiratory effort is labored, gasping, shallow, Respiratory pattern is symmetrical, tachypnea Breath sounds are diminished bilaterally. Breath sounds with wheezes bilaterally. the patient has severe shortness of breath. GI: No signs and/or symptoms were reported involving the gastrointestinal system. : No signs and/or symptoms were reported regarding the genitourinary system. EENT: No signs and/or symptoms were reported regarding the EENT system. Derm: Skin is intact, Skin is dry, Skin is pale, Skin temperature is cool. Musculoskeletal: No signs and/or symptoms reported regarding the musculoskeletal system. 07:28 Reassessment: see triage. ke1 07:50 Reassessment: Patient and/or family updated on plan of care and expected duration. Pain jd3 level reassessed. General: Appears comfortable, Behavior is calm. Pain: Unable to use pain scale. Patient is intubated. Neuro: Esposito Agitation-Sedation Scale (RASS): -3 Moderate Sedation Level of Consciousness is intubated. Cardiovascular: Rhythm is regular. Respiratory: Airway via oral intubation Respiratory effort is unlabored, Respiratory pattern is regular, symmetrical, Breath sounds are diminished bilaterally. Breath sounds with wheezes bilaterally. 08:15 Reassessment: No changes from previously documented assessment. Patient and/or family jd3 updated on plan of care and expected duration. Pain level reassessed. 08:30 Reassessment: No changes from previously documented assessment. Patient and/or family jd3 updated on plan of care and expected duration. Pain level reassessed. 08:45 Reassessment: No changes from previously documented assessment. Patient and/or family jd3 updated on plan of care and expected duration. Pain level reassessed. 09:00 Reassessment: No changes from previously documented assessment. Patient and/or family jd3 updated on plan of care and expected duration. Pain level reassessed. 09:15 Reassessment: No changes from previously documented assessment. Patient and/or family jd3 updated on plan of care and expected duration. Pain level reassessed. 09:30 Reassessment: No changes from previously documented assessment. Patient and/or family jd3 updated on plan of care and expected duration. Pain level reassessed. 09:45 Reassessment: No changes from previously documented assessment. Patient and/or family jd3 updated on plan of care and expected duration. Pain level reassessed. 10:00 Reassessment: No changes from previously documented assessment. Patient and/or family jd3 updated on plan of care and expected duration. Pain level reassessed. 10:30 Reassessment: No changes from previously documented assessment. Patient and/or family jd3 updated on plan of care and expected duration. Pain level reassessed. 10:45 Reassessment: No changes from previously documented assessment. Patient and/or family jd3 updated on plan of care and expected duration. Pain level reassessed. 11:26 Reassessment: No changes from previously documented assessment. Patient and/or family jd3 updated on plan of care and expected duration. Pain level reassessed. report given to Jamia BHARDWAJ. 11:30 Reassessment: No changes from previously documented assessment. Patient and/or family jd3 updated on plan of care and expected duration. Pain level reassessed. pt to ICU with primary nurse and RT. 11:30 Reassessment: pt's belongings given to family (Caridad). jd3 Vital Signs: 06:47 BP 114 / 64; Pulse 145; Resp 18; Temp 98.6; Pulse Ox 96% on Non-rebreather mask; ke1 07:38 Weight 90.72 kg (R); jd3 07:45 BP 53 / 3; Pulse 111; jd3 07:50 BP 119 / 60; Pulse 123; Resp 14; Pulse Ox 99% on ETT ambu; jd3 08:20 BP 113 / 72; Pulse 79; Resp 14; Pulse Ox 99% on ETT vent; jd3 08:44 BP 103 / 47; Pulse 63; Resp 14; Temp 99.0(C); Pulse Ox 97% on ETT vent; jd3 09:00 BP 100 / 93; Pulse 74; Resp 14; Temp 98.7(C); Pulse Ox 98% on ETT vent; jd3 09:15 BP 117 / 70; Pulse 75; Resp 14; Temp 98.6(C); Pulse Ox 95% on ETT vent; jd3 09:30 BP 102 / 55; Pulse 79; Resp 14; Pulse Ox 89% on ETT vent; jd3 09:45 BP 89 / 59; Pulse 77; Resp 14; Pulse Ox 96% on ETT vent; jd3 10:00 BP 86 / 60; Pulse 92; Resp 15; Pulse Ox 96% on ETT vent; jd3 10:15 BP 87 / 73; Pulse 70; Resp 14; Pulse Ox 93% on ETT vent; jd3 10:30 BP 105 / 86; Pulse 68; Resp 14; Pulse Ox 94% on ETT vent; jd3 10:45 BP 93 / 59; Pulse 72; Resp 14; Pulse Ox 99% on ETT vent; jd3 11:00 BP 87 / 67; Pulse 85; Resp 17; Temp 98.2; Pulse Ox 100% on ETT vent; jd3 09:30 RT paged for low O2. vent conections checked and pt suctioned. jd3 09:45 RT at bedside adjusting vent settings jd3 ED Course: 06:54 Patient arrived in ED. eb 06:54 Michael Gordon RN is Primary Nurse. jd3 06:56 Inserted saline lock: 22 gauge in right forearm, using aseptic technique. by kane gimenez ke1 nurse. 07:05 Primary Nurse role handed off by Michael Gordon, [place] jd3 07:06 Rolando Shipman RN is Primary Nurse. jd3 07:09 Kevyn Carrillo MD is Attending Physician. kdr 07:19 Triage completed. ke1 07:20 Assisted provider with central line placement. Set up central line tray. Triple lumen jd3 line placed in right femoral. Line placed by Kameron Phipps MD Placement verified by blood return, Dressed with Tape, Tegaderm, Blood was collected. Patient tolerated well. 07:26 Arm band placed on. ke1 07:30 Assisted provider with intubation using 7.5 mm ETT via oral route. ET tube secured at jd3 23cm at the lips. Set up intubation tray. Intubated by Kameron Phipps MD Placement verified by CO2 detector w/ + color change, auscultating bilateral breath sounds, CXR, Patient tolerated well. 07:45 Speci-cath kit inserted, using sterile technique, 16 Fr., specimen obtained. returned jd3 clear yellow urine. Patient tolerated well. 07:52 Salas Lares MD is Hospitalizing Provider. kdr 08:19 NGT: inserted 18 Fr. other via oral route verified placement of air over stomach, jd3 verified return of gastric contents, Placement verified by X-ray, to intermittent suction. Patient tolerated well. 08:24 Casey Stevens MD is Hospitalizing Provider. kdr 08:36 CXR XRAY In Process Unspecified. EDMS 08:45 Patient has correct armband on for positive identification. Bed in low position. Call jd3 light in reach. Side rails up X2. Valuables at bedside. including 1 ring.. Client placed on continuous cardiac and pulse oximetry monitoring. NIBP monitoring applied. engine monitor on. Pulse ox on. NIBP on. 10:05 Salas Lares MD is Hospitalizing Provider. kdr 11:26 Patient admitted, IV remains in place. jd3 Administered Medications: 07:30 Drug: NS 0.9% (30 ml/kg) 30 ml/kg Route: IV; Rate: bolus; Site: right femoral; jd3 09:00 Follow up: Response: No adverse reaction; IV Status: Completed infusion; IV Intake: jd3 2700ml 07:30 Drug: Midazolam 4 mg Route: IVP; Site: right femoral; jd3 08:30 Follow up: Response: No adverse reaction jd3 07:30 Drug: Etomidate 20 mg Route: IVP; Site: right femoral; jd3 08:30 Follow up: Response: No adverse reaction jd3 07:45 Drug: Levophed (norepinephrine) 0.1 mcg/kg/min Route: IV; Rate: calculated rate; Site: jd3 right femoral; 11:59 Follow up: Response: No adverse reaction; IV Status: Infusion continued upon admission jd3 08:25 Drug: Pepcid (famotidine) 40 mg Route: IVP; Site: right wrist; jd3 09:25 Follow up: Response: No adverse reaction jd3 08:27 Drug: Zosyn (piperacillin-tazobactam) 3.375 grams Route: IVPB; Infused Over: 60 mins; jd3 Site: right wrist; 09:27 Follow up: Response: No adverse reaction; IV Status: Completed infusion jd3 Medication: 08:46 VIS not applicable for this client. jd3 Intake: 09:00 IV: 2700ml; Total: 2700ml. jd3 Outcome: 07:56 Decision to Hospitalize by Provider. kdr 11:26 Admitted to ICU accompanied by nurse, family with patient, via stretcher, room ICU 2, j with oxygen, on monitor, with chart, Report called to Jamia BHARDWAJ 11:26 Condition: stable 11:26 Instructed on the need for admit. 11:51 Patient left the ED. eb Signatures: Dispatcher [employer] EDMS Kevyn Carrillo MD MD [facility] Rolando Shipman RN RN Lesly Medrano Kouassi, RN RN ke1 Corrections: (The following items were deleted from the chart) 07:20 06:47 Acuity: [place] 4 ke1 ke1 07:22 07:20 General: Appears distressed, Behavior is unresponsive. 1 ke1 07:38 07:20 General: Appears distressed, Behavior is unresponsive. 1 ke1 07:39 07:20 Pain: Unable to use pain scale. Patient is unresponsive. 1 ke1 07:39 07:20 General: Appears distressed, Behavior is unresponsive. 1 1 07:39 07:23 Neuro: Level of Consciousness is unresponsive, [facility] ke1 07:39 07:23 Respiratory: Airway is patent Trachea midline Respiratory effort is On NRBM ke1 ke1 07:39 07:25 Respiratory: Breath sounds with crackles bilaterally. 1 ke1 09:06 08:20 BP 100 / 93; Pulse 74bpm; Resp 14bpm; Pulse Ox 98% ET / Ventilator; Temp 98.7F jd3 Catheter; jd3 09:16 07:15 Michael Gordon RN is Primary Nurse. [place] [id number] 09:16 09:15 Primary Nurse role handed off by Michael Gordon RN alma j 09:16 09:15 Rolando Shipman, [place] is Primary Nurse. jd3 jd3 10:22 10:00 BP 87 / 73; Pulse 70bpm; Resp 14bpm; Pulse Ox 93% ET / Ventilator; jd3 jd3 11:57 11:50 Response: No adverse reaction jd3 jd3 12:11 12:01 Reassessment: No changes from previously documented assessment. Patient and/or jd3 family updated on plan of care and expected duration. Pain level reassessed. pt to ICU with primary nurse and RT jd3
[2022-03-08 08:02] LABS: Urine Blood Trace-intact (Negative); Urine Glucose Negative (Negative); Urine Protein 1+ (Negative)
[2022-03-08 08:32] LABS: Calcium Oxalate Crystals- Ur Few /HPF (None Seen); Urine Bacteria <20 /HPF (<20); Urine Mucus Slight /HPF (None Seen)
[2022-03-08] MEDS ORDERED: PIPERACIL/TAZO 3.375 GM VIAL IV ONE (08:33)
[2022-03-08] MEDS ORDERED: NA CHLORIDE 0.9% 100 ML ONE (08:33)
[2022-03-08] MEDS ORDERED: FAMOTIDINE 20 MG/2 ML VIAL IV ONE ×2 (08:33→09:29)
[2022-03-08 08:40] LABS: Albumin 2.1 g/dL (3.4-5.0); Bilirubin Total 0.4 mg/dL (0.2-1.0); Potassium 4.7 mmol/L (3.5-5.1); Protein, Total 6.2 g/dL (6.4-8.2)
[2022-03-08 08:58] LABS: Arterial Blood Carboxyhemoglob 1.4 % (0-1.5); Blood Gas Oxyhemoglobin 94.6 % (94-97); Blood O2 Saturation 97.1 % (92-98.5)
--- NOTE | 2022-03-08 09:28 | RAD REPORT ---
EXAM DESCRIPTION: Zack Single View03/08/2022 8:34 am CLINICAL HISTORY: Unresponsive COMPARISON: February 14, 2022 FINDINGS: Endotracheal tube has its tip 1 centimeter above the top of the aortic arch and well above the bong Nasogastric tube coiled within the gastric fundus. Right upper lobe mildly hazy Left lung appears clear. Heart is normal size. Old left humeral fracture IMPRESSION: Right upper lobe is mildly hazy which may indicate aspiration pneumonitis
[2022-03-08] MEDS ORDERED: ACETAMINOPHEN 650MG/RECT SUPP PR PRN (09:43)
[2022-03-08] MEDS ORDERED: ONDANSETRON 4 MG/2 ML VIAL IV PRN (09:43)
--- NOTE | 2022-03-08 09:50 | P.HP ---
Certification for Inpatient Patient admitted to: Inpatient With expected LOS: >2 Midnights Patient will require the following post-hospital care: None Practitioner: I am a practitioner with admitting privileges, knowledge of patient current condition, hospital course, and medical plan of care. Services: Services provided to patient in accordance with Admission requirements found in Title 42 Section 412.3 of the Code of Federal Regulations <ArturodariusBrett Godfrey - Last Filed: 03/08/22 13:25> Patient History Date of Service: 03/08/22 Reason for admission: AMS History of Present Illness: Patient is a 76-year-old female with a past medical history significant for dementia, hypothyroidism, HLD, GERD, bipolar disorder, COPD, CKD, chronic pain syndrome, hypertension, schizophrenia who presents with complaint of altered mental status. Patient is a [facility] a [facility]. Patient currently intubated and unable to provide any history. Per nursing staff patient was noted to be unresponsive and difficult to arouse in the nursing facility. When patient became responsive she was noted to be confused and had respiratory distress. No other signs and symptoms reported. Symptoms are aggravated or relieved by nothing. Patient was brought to the hospital for medical evaluation. - Past Medical/Surgical History Diabetic: No -: Bipolar disorder -: Schizoaffective disorder -: COPD -: Chronic renal disease -: Hypertension -: Hypothyroidism -: Hyperlipidemia -: Dementia -: Chronic pain with neuropathy -: CKD (Dr. Fernando) -: Complete hysterectomy -: sb knee replacement Psychosocial/ Personal History: Patient currently lives at SNF. - Family History Mother -: Heart disease, Lung disease Notes: COPD Father -: Heart disease, Diabetes Notes: quadruple bypass - Social History Alcohol use: No CD- Drugs: No Caffeine use: Yes Place of Residence: Detention <Brett Son - Last Filed: 03/08/22 13:25> Date of Service: 03/08/22 <Salas Lares - Last Filed: 03/08/22 21:23> Allergies No Known Allergies Allergy (Verified 02/15/22 07:58) Home Medications: Donepezil HCl 10 mg PO BEDTIME 10/18/19 Levothyroxine Sodium 25 mcg PO 0630 10/18/19 Memantine HCl 10 mg PO BID 10/18/19 Ondansetron [Ondansetron Odt] 4 mg PO Q8H PRN 10/18/19 Topiramate 100 mg PO BID 10/18/19 Calcitrol [Rocaltrol*] 0.5 mcg PO DAILY #30 cap 02/22/20 ARIPiprazole [Abilify*] 5 mg PO DAILY 08/19/21 Aspirin 81 mg PO DAILY 08/19/21 Atorvastatin Calcium [Lipitor*] 20 mg PO DAILY 08/19/21 Docusate [Colace Cap*] 100 mg PO BID 08/19/21 Hydralazine [Apresoline*] 50 mg PO TID 08/19/21 Meloxicam [Mobic*] 15 mg PO DAILY 08/19/21 Propranolol [Inderal*] 40 mg PO DAILY 08/19/21 Trazodone [Desyrel*] 50 mg PO BEDTIME 08/19/21 Divalproex Sodium [Depakote Sprinkle] 250 mg PO BID 12/06/21 Duloxetine HCl [Drizalma Sprinkle] 60 mg PO ONCE 12/06/21 Acetaminophen [Tylenol] 650 mg PO Q6HP PRN 02/15/22 Arginine/Ascorbate Sod/Karla AC [Arginaid Powder] 1 each PO BID 02/15/22 Ascorbic Acid [Vitamin C*] 500 mg PO BID 02/15/22 Codeine/APAP [Tylenol #3*] 1 tab PO Q6HP PRN 02/15/22 Fluocinonide/Emollient Base [Fluocinonide-E 0.05% Cream] 1 % TOP DAILY 02/15/22 Multivitamin with Minerals [Multivitamins with Minerals] 1 tab PO DAILY 02/15/22 Protein Supplement [Promod] 30 ml PO BID 02/15/22 Collagenase [Santyl Ointment*] 1 appl TOP DAILY 03/08/22 Famotidine [Pepcid] 20 mg PO DAILY 03/08/22 Gabapentin 300 mg PO TID 03/08/22 Review of Systems is unable to be obtained (Patient was intubated. Unable to assess.) <Brett Son E - Last Filed: 03/08/22 13:25> Physical Examination - Physical Exam General: Demented, Confused, Other (Unable to assess.) HEENT: Atraumatic, Normocephalic Neck: Supple, JVD not distended Respiratory: Diminished Cardiovascular: No edema Capillary refill: <2 Seconds Gastrointestinal: Normal bowel sounds, Soft and benign Musculoskeletal: No clubbing, No swelling, No contractures Integumentary: Pressure ulcer Neurological: Dementia Lymphatics: No axilla or inguinal lymphadenopathy - Studies Laboratory Data (last 24 hrs) 03/08/22 07:26: PT 13.3 H, INR 1.20, APTT 34.2 03/08/22 07:26: Sodium 146 H, Potassium 4.7, BUN 71 H, Creatinine 2.05 H, Glucose 97, Total Bilirubin 0.4, AST 14 L, ALT 14, Alkaline Phosphatase 130 H 03/08/22 07:26: WBC 8.20, Hgb 9.3 L, Hct 28.5 L, Plt Count 194 Microbiology Data (last 24 hrs): 03/08/22 08:26 Nasopharnyx Influenza Type A Antigen Screen - Final 03/08/22 08:26 Nasopharnyx Influenza Type B Antigen Screen - Final <Brett Son - Last Filed: 03/08/22 13:25> - Studies Laboratory Data (last 24 hrs) 03/08/22 07:26: PT 13.3 H, INR 1.20, APTT 34.2 03/08/22 07:26: Sodium 146 H, Potassium 4.7, BUN 71 H, Creatinine 2.05 H, Glucose 97, Total Bilirubin 0.4, AST 14 L, ALT 14, Alkaline Phosphatase 130 H 03/08/22 07:26: WBC 8.20, Hgb 9.3 L, Hct 28.5 L, Plt Count 194 Microbiology Data (last 24 hrs): 03/08/22 08:26 Nasopharnyx Influenza Type A Antigen Screen - Final 03/08/22 08:26 Nasopharnyx Influenza Type B Antigen Screen - Final <Salas Lares - Last Filed: 03/08/22 21:23> Assessment and Plan - Plan -- Acute respiratory failure with hypoxia. Continue mechanical ventilation. Continue neb treatment with albuterol\Atrovent, steroids and antibiotics. --Aspiration pneumonia. Noted on imaging. Continue antibiotics and current treatment regimen. --Hypotension. Patient became hypotensive after intubation. SBP in the 100s. Continue norepinephrine drip. We will continue to monitor blood pressure levels. -- AMBAR on CKD 3B. Nephrology consulted. Avoid nephrotoxins and NSAIDs. Further management per helpdesk administrator. --Dementia. With superimposed delirium. Continue supportive care. --Hypercalcemia. We will hold off on Calcitrol. Further management per helpdesk administrator. -- Hyperatremia. Further management per helpdesk administrator. --UTI POA. Continue antibiotics. Urine cultures pending. -- Acute on chronic COPD exacerbation. Continue current treatment regimen. --Anemia of chronic disease. H&H stable. We will continue to monitor hemoglobin and transfuse if less than 7.0. -- Hypothyroidism. Continue Synthroid when appropriate. --GERD. Continue Protonix IV. --Bipolar 1 disorder\schizophrenia. Continue home medications when appropriate -- Chronic pain syndrome. We will manage pain with current pain medication regimen. --Hyperlipidemia. Continue home medication when appropriate. --DVT prophylaxis with heparin subQ Discharge Plan: Detention Plan to discharge in: Greater than 2 days - Advance Directives Does patient have a Living Will: No Does patient have a Durable POA for Healthcare: No Physician Review: Patient Assessed, Agree with Above Assessment and Plan Critical Care: Yes <Brett Son - Last Filed: 03/08/22 13:25> Physician Review: Patient Assessed, Agree with Above Assessment and Plan Physician Review Additional Text: I was notified of Mrs. Mason' admission at 12:05 PM, when I was called by the ICU nurse for hypotension. I went to bedside to evaluate and she was tachycardic to the 150s and hyp otensive around 100s/60s on norepinephrine. I spoke with grand-daughter (Ms. Randall), who was at bedside to establish what had happened. She relayed to be that she lives in a penitentiary and has been becoming less responsive. The penitentiary sent her into the emergency department for further evaluation. Upon presentation to the emergency department, she was found to be hypotensive and not protecting her airway. She was intubated in the emergency department. Per discussion, with Ms. Randall. She states that she is unsure if her grandmother is a DNR/DNI, but she will go visit her grandfather (Ms. Marcina Mason' ) to gather more data regarding this. Around 14:30, Ms. Randall returned with her uncle. They stated that they believe that she has a medical power of ironer, Ms. Roman, who would like her to be Full Code. However, on the other hand, her stated that he wished to make her a DNR/DNI as she had mentioned this several times in the past. We scheduled a meeting for 18:30 with multiple family members to discuss this topic further. Around 18:30, a goalsofcare discussion was held with multiple family members including Mr. Alberto Mason (), Mr. Jessie Tellez (daughter), Mr. Chele Roper (son), Ms. Catrina Mason ([id number]), Ms. Tonia Palacios (grand-daughter), and Mr. Teo Velazquez (son-in-law). Also present for this discussion was Mainor Turcios NP. We discussed her hospital course in detail and that her prognosis is extremely guarded at this time. There was initially a disagreement between Ms. Roman and her Mr. Dominguez; however, after further evaluation, it appears that she was a DURABLE POWER OF CHIEF TECHNICAL OFFICER and legal document she provided explicitly stated that she had no medical decision making capacity over Ms. Mason. After a extensive conversation lasting about an hour, they decided that she has not explicitly stated that she would wish to be DNR/DNI if there is a chance of recovery within a few days. They state that they believe the best course of action would be to allow her to be treated for 72 hours and reassess her medical condition on 03/11/2022. At that time, they will decide whether or not withdrawing care and pursuing hospice services is most consistent with her wishes. I reevaluated her following this discussion, and she was intermittently hypotensive despite the use of norepinephrine at 0.5 mcg/kg/min. Given the fact that she has significant tachycardia with atrial fibrillation rapid ventricular response and given the fact that she has acute kidney injury and NSTEMI, I initially recommended adding a second vasopressor to help with both of these issues. While attempting to reach Dr. Stewart, I initially ordered vasopressin, which was never given. Her high dose of norepinephrine was concerning to me as this would have an increased beta1/2 effect on her heart and results in her converting into a refractory tachycardia. The initial thought was that adding vasopressin early would help reduce the need for high doses of norepinephrine, and reduce the side effects of potential tachyarrhythmia and profound vasoconstriction, particularly in the setting of her NSTEMI and AMBAR. I was able to reach Dr. Stewart, who recommended higher doses of norepinephrine per pharmacy protocol. Per his recommendations, I have discontinued vasopressin and continued norepinephrine per the pharmacy's protocol. Further more, I discussed code status with the family. For now, they would like to keep her full code. They will readdress the topic on 03/11/2022. ADDENDUM TO DIAGNOSES: # Suspected Septic Shock likely secondary to Presumed Multi-Drug Resistant UTI, Aspiration Pneumonia, or Infected Sacral Wound # Acute Kidney Injury Severe sepsis is suspected due to concern for tissue hypoperfusion/organ dysfunction based on acute respiratory failure requiring intubation, hypotension (SBP < 90, MAP < 65), SBP decrease > 40 mmHg from baseline, creatinine >2.0 mg/dL (without ESRD). Septic shock is suspected due to SBP < 90 mmHg , MAP <65, decreased blood pressure by 40 mmHg after bolus, requiring vasopressor support. - Pulmonary/Critical Care Medicine consulted - recommendations appreciated - Sepsis order set was initiated - Initial Lactate was 1.4, trend - Blood cultures drawn before antibiotics were given - Broad spectrum antibiotics started: Piperacillin-Tazobactam -> switched to Vancomycin + Meropenem given history of MDR organisms - In regards to fluids: - 30 mL/kg of IV fluids was given based on patient's actual body weight - Sepsis reassessment completed at 12:30 PM on 03/08/2022 # Non-ST Segment Elevation Myocardial Infarction # Paroxysmal Atrial Fibrillation with Rapid Ventricular Response - Cardiology consulted and spoke with Dr. Sotelo - recommendations appreciated - STAT EKG without STEMI criteria - Troponin trend: 3466.1 -> 5417.7 - Ordered STAT TTE - Ordered aspirin and enoxaparin 1 mg/kg STAT - Plan to start heparin drip 12 hours after enoxaparin Time Spent managing this patient's critically ill condition: 75 minutes Time Spent Managing Pts Care (In Minutes): 75 <Salas Lares - Last Filed: 03/08/22 21:23>
[2022-03-08] MEDS: NOREPINEPHRINE 8 MG in D5W 250 ML IV SCH ×4 (12:00→23:10)
[2022-03-08] MEDS ORDERED: AMIODARONE HCL 150 MG in D5W 100 ML IV STA (12:10)
[2022-03-08] MEDS ORDERED: AMIODARONE HCL 900 MG in Dextrose 5%-Water 482 ML IV SCH (13:00)
[2022-03-08] MEDS ORDERED: SUCCINYLCHOLINE 20 MG/ML (10 ML) IV ONE (13:17)
[2022-03-08] MEDS ORDERED: ETOMIDATE 20 MG/10 ML VIAL IV ONE (13:17)
[2022-03-08] MEDS ORDERED: SODIUM CHLORIDE 0.9% 10ML INJ IV PRN (13:21)
[2022-03-08 13:29] VITALS: O2SAT 100
[2022-03-08 13:34] VITALS: BMI 31.6
[2022-03-08] MEDS: Meropenem 500 MG in NA CHLORIDE 0.9% 100 ML IV SCH ×2 (13:41→20:48)
[2022-03-08] MEDS ORDERED: VANCOMYCIN 1.75 GM in NA CHLORIDE 0.9% 500 ML IVPB SCH (14:00)
[2022-03-08] MEDS: IPRATROPIUM BROM 0.5MG/2.5ML NEB SCH ×2 (14:00→20:00)
[2022-03-08 14:15] LABS: Protime INR 1.29
[2022-03-08 14:32] LABS: Albumin 1.7 g/dL (3.4-5.0); Bilirubin Direct 0.2 mg/dL (0-0.2); Bilirubin Total 0.5 mg/dL (0.2-1.0); Magnesium 1.8 mg/dL (1.8-2.4); Potassium 4.1 mmol/L (3.5-5.1); Protein, Total 5.4 g/dL (6.4-8.2)
[2022-03-08 14:38] LABS: Troponin High Sensitivity 3466.1 pg/mL (<58.9)
[2022-03-08 14:41] LABS: Phosphorus 2.9 mg/dL (2.5-4.9); Thyroid Stimulating Hormone 1.09 uIU/mL (0.360-3.740)
--- NOTE | 2022-03-08 15:46 | CON ---
Date of Consultation: 03/08/2022 Reason For Consultation: Acute renal failure and hypercalcemia. History Of Present Illness: Ms. Mason is a 76-year-old female, who is a resident of group home. She was brought in because of unresponsiveness and altered mental status. She was intubated in the emergency room and was brought into the ICU for treatment of respiratory failure, aspiration pneumoni a, and sepsis. The patient is currently on Levophed and Nephrology is being consulted for further ma nagement of acute renal failure. Her past medical history is significant for history of dementia, sc hizophrenia with bipolar disorder, hypothyroidism, hyperlipidemia, GERD, COPD, and chronic pain syndr ome. She was residing in a group home and further history is unable to be obtained. Home Medications: Included donepezil, levothyroxine, memantine, Topamax, calcitriol, Abilify, aspiri n, atorvastatin, hydralazine, meloxicam, pantoprazole, trazodone, and Depakote. Past Medical History: Significant for history of CKD, being followed by Dr. Fernando, bipolar disorde r, schizoaffective disorder, COPD, history of hypothyroidism, hyperlipidemia, and bilateral knee repl acement and complete hysterectomy. Social History: Lives at SNF. Family History: Unable to be obtained. Review of Systems: Unable to be obtained. Physical Examination: Vital Signs: At this time are showing temperature of 98.2, pulse rate of 104, respiratory rate of 14 , and blood pressure is 100/65. General: She is currently on Levophed drip. She is intubated. She is not sedated. She seems to be responding to verbal commands. HEENT: Atraumatic head. Lungs: Auscultation of lungs with bilateral equal air entry with diminished breath sounds at bases. Heart: Auscultation of heart revealed slight tachycardia, seems to be sinus. Abdomen: Soft and nontender. Extremities: Showed no evidence of edema. However, she has multiple bruising noted under her skin a nd bilateral lower extremities. She has a femoral triple-lumen catheter for central venous access an d she is currently on 60% FiO2 with 5 of PEEP. Laboratory Data: At this time are showing a BUN of 66, creatinine of 2.08, calcium was 12 currently down to 10.3, sodium of 144, potassium of 4.1, and chloride of 115, BUN of 56. Albumin was very low at 1.7. Troponin was elevated to 3466. ProBNP was also elevated. CBC showing hemoglobin of 9.3, he matocrit of 28.5, and platelet count of 194. Her urine culture is pending. Her Steele catheter seems to have cloudy dark urine. Current Medications: Include Levophed drip, amiodarone 1 time dose was given, Solu-Medrol 40 mg ever y 8 hours, vancomycin every 36 hours 1.75 g. She is also on meropenem 500 mg every 12 hours, pantopr azole for GI prophylaxis. Impression: 1.Acute renal failure superimposed on chronic renal insufficiency, likely secondary to underlying NS AID use. The patient was noted to be on meloxicam at the group home upon review of her home medica tions. We will discontinue that and start her on gentle IV fluids. At this time, she seems to be in acute tubular necrosis from hypotension and possibly urinary tract infection. 2.Respiratory failure, likely secondary to aspiration pneumonia. Her chest x-ray showing right uppe r lobe with hazy opacity indicating possible aspiration pneumonitis. She is currently being treated with vancomycin and meropenem. She is on a ventilator, planned per ICU team. 3.Hypercalcemia. The patient was on calcitriol at the group home, which we will obviously discont inue at this time. Continue hydration and monitor. 4.Possible urinary tract infection. Await urine cultures. Cover with broad-spectrum antibiotics. 5.Underlying dementia with schizophrenia and bipolar disorder. Medications to be resumed when extub ated. 6.Severe debility and weakness. Plan: The patient's condition is guarded, especially with her advanced age and underlying comorbidit ies. I will get her started on gentle IV hydration, monitor her volume status closely, wean down pre ssors as tolerated, and continue stress dose steroids for now. Antibiotics are being dosed appropria tely. We will follow up closely, avoid further hypotension and nephrotoxins. Thank you very much for this consultation. Please not hesitate to call us with any questions or conc erns. VV/MODL Voice ID: [id number] Report ID: [id number]
[2022-03-08] MEDS ORDERED: ASPIRIN 300 MG/SUPP PR ONE (16:05)
[2022-03-08] MEDS ORDERED: ENOXAPARIN 100 MG/ML SYR SQ SCH ×2 (16:30)
[2022-03-08] MEDS ORDERED: Meropenem 500 MG in NA CHLORIDE 0.9% 100 ML IV SCH (17:00)
[2022-03-08] MEDS ORDERED: METHYLPREDNISOLONE 40 MG INJ IV SCH (17:00)
[2022-03-08] MEDS ORDERED: PIPER TAZO 3.375 GM in NA CHLORIDE 0.9% 100 ML IV SCH (17:00)
[2022-03-08] MEDS ORDERED: ASPIRIN 81 MG CHEWABLE TABLET PO ONE (17:10)
[2022-03-08] MEDS: NACHLORIDE 0.45% 1,000 ML IV SCH (17:12)
[2022-03-08] MEDS ORDERED: VASOPRESSIN 80 UNIT in NA CHLORIDE 0.9% 250 ML IV PRN (19:47)
[2022-03-08] MEDS ORDERED: NA CHLORIDE 0.9% 250 ML ONE (19:58)
--- NOTE | 2022-03-08 20:32 | RAD REPORT ---
EXAM DESCRIPTION: US - Renal Ultrasound-Complete - 03/08/2022 8:20 pm CLINICAL HISTORY: Acute renal failure COMPARISON: December 2021 cat scan FINDINGS: The right kidney measures 9 cm with a normal echotexture. The left kidney was not visualized secondary to a combination of overlying bowel gas and lack of patti ent cooperation. Hydronephrosis is not seen. Steele catheter is present within a collapsed bladder IMPRESSION: Unremarkable right renal ultrasound Left kidney was not seen
[2022-03-08] MEDS ORDERED: HEPARIN 5000 UNIT/ML 1 ML VIAL SQ SCH (21:00)
--- NOTE | 2022-03-08 21:21 | P.PN ---
Date of Service: 03/08/22 Called patient Alberto to discuss code status, he wishes to change her code status to DNR at this time, he is OK with continuation of current treatments including vasopressors, antibiotics, ventilator support but if her heart were to stop he would not like for her to be further resuscitated. Code status adjusted in EMR to DNR.
--- NOTE | 2022-03-08 21:24 | P.PN ---
Date of Service: 03/08/22 (Critical Care Note) I was notified of Mrs. Mason' admission at 12:05 PM, when I was called by the ICU nurse for hypotension. I went to bedside to evaluate and she was tachycardic to the 150s and hypotensive around 100s/60s on norepinephrine. I spoke with grand-daughter (Ms. Randall), who was at bedside to establish what had happened. She relayed to be that she lives in a penitentiary and has been becoming less responsive. The penitentiary sent her into the emergency department for further evaluation. Upon presentation to the emergency department, she was found to be hypotensive and not protecting her airway. She was intubated in the emergency department. Per discussion, with Ms. Randall. She states that she is unsure if her grandmother is a DNR/DNI, but she will go visit her grandfather (Ms. Macrina Mason' ) to gather more data regarding this. Around 14:30, Ms. Randall returned with her uncle. They stated that they believe that she has a medical power of assistant prosecuting attorney, Ms. Roman, who would like her to be Full Code. However, on the other hand, her stated that he wished to make her a DNR/DNI as she had mentioned this several times in the past. We scheduled a meeting for 18:30 with multiple family members to discuss this topic further. Around 18:30, a goalsofcare discussion was held with multiple family members including Mr. Alberto Mason (), Mr. Jessie Mason-Caroline (daughter), Mr. Chele Roper (son), Ms. Catrina Mason ([id number]), Ms. Tonia Palacios (grand-daughter), and Mr. Teo Velazquez (son-in-law). Also present for this discussion was Mainor Turcios NP. We discussed her hospital course in detail and that her prognosis is extremely guarded at this time. There was initially a disagreement between Ms. Roman and her Mr. Dominguez; however, after further evaluation, it appears that she was a DURABLE POWER OF HUMIDIFIER OPERATOR and legal document she provided explicitly stated that she had no medical decision making capacity over Ms. Mason. After a extensive conversation lasting about an hour, they decided that she has not explicitly stated that she would wish to be DNR/DNI if there is a chance of recovery within a few days. They state that they believe the best course of action would be to allow her to be treated for 72 hours and reassess her medical condition on 03/11/2022. At that time, they will decide whether or not withdrawing care and pursuing hospice services is most consistent with her wishes. I reevaluated her following this discussion, and she was intermittently hypotensive despite the use of norepinephrine at 0.5 mcg/kg/min. Given the fact that she has significant tachycardia with atrial fibrillation rapid ventricular response and given the fact that she has acute kidney injury and NSTEMI, I initially recommended adding a second vasopressor to help with both of these issues. While attempting to reach Dr. Stewart, I initially ordered vasopressin, which was never given. Her high dose of norepinephrine was concerning to me as this would have an increased beta1/2 effect on her heart and results in her converting into a refractory tachycardia. The initial thought was that adding vasopressin early would help reduce the need for high doses of norepinephrine, and reduce the side effects of potential tachyarrhythmia and profound vasoconstriction, particularly in the setting of her NSTEMI and AMBAR. I was able to reach Dr. Stewart, who recommended higher doses of norepinephrine per pharmacy protocol. Per his recommendations, I have discontinued vasopressin and continued norepinephrine per the pharmacy's protocol. Further more, I discussed code status with the family. For now, they would like to keep her full code. They will readdress the topic on 03/11/2022. ADDENDUM TO DIAGNOSES: # Suspected Septic Shock likely secondary to Presumed Multi-Drug Resistant UTI, Aspiration Pneumonia, or Infected Sacral Wound # Acute Kidney Injury Severe sepsis is suspected due to concern for tissue hypoperfusion/organ dysfunction based on acute respiratory failure requiring intubation, hypotension (SBP < 90, MAP < 65), SBP decrease > 40 mmHg from baseline, creatinine >2.0 mg/dL (without ESRD). Septic shock is suspected due to SBP < 90 mmHg , MAP <65, decreased blood pressure by 40 mmHg after bolus, requiring vasopressor support. - Pulmonary/Critical Care Medicine consulted - recommendations appreciated - Sepsis order set was initiated - Initial Lactate was 1.4, trend - Blood cultures drawn before antibiotics were given - Broad spectrum antibiotics started: Piperacillin-Tazobactam -> switched to Vancomycin + Meropenem given history of MDR organisms - In regards to fluids: - 30 mL/kg of IV fluids was given based on patient's actual body weight - Sepsis reassessment completed at 12:30 PM on 03/08/2022 # Non-ST Segment Elevation Myocardial Infarction # Paroxysmal Atrial Fibrillation with Rapid Ventricular Response - Cardiology consulted and spoke with Dr. Sotelo - recommendations appreciated - STAT EKG without STEMI criteria - Troponin trend: 3466.1 -> 5417.7 - Ordered STAT TTE - Ordered aspirin and enoxaparin 1 mg/kg STAT - Plan to start heparin drip 12 hours after enoxaparin Time Spent managing this patient's critically ill condition: 75 minutes Time Spent Managing Pts Care (In Minutes): 75 This time does not include procedures
[2022-03-09 00:57] LABS: Albumin 1.5 g/dL (3.4-5.0); Bilirubin Total 0.4 mg/dL (0.2-1.0); Potassium 4.6 mmol/L (3.5-5.1); Protein, Total 5.5 g/dL (6.4-8.2)
[2022-03-09 01:02] LABS: Troponin High Sensitivity 6784.5 pg/mL (<58.9)
[2022-03-09 01:08] LABS: Absolute Lymphocytes (CBC) 1.3 K/uL (0.7-4.9); Hematocrit 25.6 % (36.0-45.0); Lymphocytes % 8.3 % (15.3-44.8); MCV 98.2 fL (80-100); MPV 8.6 fL (7.6-11.3)
[2022-03-09] MEDS: NOREPINEPHRINE 8 MG in D5W 250 ML IV SCH ×2 (01:47→04:42)
[2022-03-09] MEDS: IPRATROPIUM BROM 0.5MG/2.5ML NEB SCH ×3 (01:50→14:00)
[2022-03-09] MEDS ORDERED: ACETAMINOPHEN 650MG/RECT SUPP PR ONE (02:34)
[2022-03-09 03:49] LABS: Calcium Oxalate Crystals- Ur Many /HPF (None Seen); Specific Gravity 1.013 (1.005-1.030); Urine Bacteria >50 /HPF (<20); Urine Bilirubin NEGATIVE (Negative); Urine Blood 1+ (Negative); Urine Clarity Extremely Turbid (Clear); Urine Color Orange (Yellow); Urine Glucose NEGATIVE (Negative); Urine Protein 2+ (Negative); Urine RBC >50 /HPF (None Seen); Urine Urobilinogen Normal (Normal); Urine WBC Clump Many /HPF (None Seen); Urine pH 5.5 (5.0-7.0)
[2022-03-09] MEDS: NACHLORIDE 0.45% 1,000 ML IV SCH ×2 (04:08→12:17)
[2022-03-09] MEDS ORDERED: NOREPINEPHRINE 4 MG/4 ML VIAL ONE (04:10)
[2022-03-09] MEDS ORDERED: NA CHLORIDE 0.9% 0 ML ONE (04:11)
[2022-03-09] MEDS ORDERED: D5W 250 ML IV ONE (04:14)
[2022-03-09 05:02] LABS: Absolute Lymphocytes (CBC) 1.8 K/uL (0.7-4.9); Hematocrit 25.4 % (36.0-45.0); Lymphocytes % 8.5 % (15.3-44.8); MCV 98.2 fL (80-100); RBC Red Blood Cell Count 2.59 M/uL (3.86-4.86)
[2022-03-09 05:04] LABS: Protime INR 1.58
[2022-03-09 05:19] LABS: Albumin 1.5 g/dL (3.4-5.0); Bilirubin Total 0.4 mg/dL (0.2-1.0); Potassium 4.8 mmol/L (3.5-5.1); Protein, Total 5.4 g/dL (6.4-8.2)
[2022-03-09 05:56] LABS: Blood Morphology Comment NOT SEEN (NOT SEEN); Platelet Estimate ADEQ
[2022-03-09] MEDS ORDERED: HEPARIN/D5W 25,000 UNIT/500 ML BAG IV SCH (06:00)
[2022-03-09] MEDS: NOREPINEPHRINE 16 MG in Dextrose 5%-Water 500 ML IV SCH ×3 (07:45→13:20)
[2022-03-09] MEDS ORDERED: PANTOPRAZOLE 40 MG INJ IVP SCH (09:00)
--- NOTE | 2022-03-09 09:07 | P.PN ---
Subjective Date of Service: 03/09/22 Chief Complaint: AMS Physical Examination - Vital Signs Temperature: 100.2 F Blood Pressure: 91/68 Pulse: 112 Respirations: 13 Pulse Ox (%): 100 - Studies Microbiology Data (last 24 hrs): 03/08/22 08:26 Nasopharnyx Influenza Type A Antigen Screen - Final 03/08/22 08:26 Nasopharnyx Influenza Type B Antigen Screen - Final Assessment And Plan Physician Review: Patient Assessed, Agree with Above Assessment and Plan
[2022-03-09] MEDS ORDERED: HYDROCORTISONE SUC 100 MG INJ IV ONE (09:38)
[2022-03-09] MEDS ORDERED: NA CHLORIDE 0.9% 1,000 ML IV ONE (09:39)
[2022-03-09] MEDS ORDERED: VASOPRESSIN 80 UNIT in NA CHLORIDE 0.9% 250 ML IV PRN (09:48)
--- NOTE | 2022-03-09 09:55 | P.CNS ---
Date of Consult: 03/09/22 Reason for Consult: Septic shock respiratory failure Chief Complaint: Respiratory failure refractory septic shock History of Present Illness: Patient is 76 years of age multiple medical problems [facility] resident currently on a ventilator refractory shock very high doses of Levophed alert and somewhat responsive renal failure Allergies No Known Allergies Allergy (Verified 02/15/22 07:58) Home Medications: Donepezil HCl 10 mg PO BEDTIME 10/18/19 Levothyroxine Sodium 25 mcg PO 0630 10/18/19 Memantine HCl 10 mg PO BID 10/18/19 Ondansetron [Ondansetron Odt] 4 mg PO Q8H PRN 10/18/19 Topiramate 100 mg PO BID 10/18/19 Calcitrol [Rocaltrol*] 0.5 mcg PO DAILY #30 cap 02/22/20 ARIPiprazole [Abilify*] 5 mg PO DAILY 08/19/21 Aspirin 81 mg PO DAILY 08/19/21 Atorvastatin Calcium [Lipitor*] 20 mg PO DAILY 08/19/21 Docusate [Colace Cap*] 100 mg PO BID 08/19/21 Hydralazine [Apresoline*] 50 mg PO TID 08/19/21 Meloxicam [Mobic*] 15 mg PO DAILY 08/19/21 Propranolol [Inderal*] 40 mg PO DAILY 08/19/21 Trazodone [Desyrel*] 50 mg PO BEDTIME 08/19/21 Divalproex Sodium [Depakote Sprinkle] 250 mg PO BID 12/06/21 Duloxetine HCl [Drizalma Sprinkle] 60 mg PO ONCE 12/06/21 Acetaminophen [Tylenol] 650 mg PO Q6HP PRN 02/15/22 Arginine/Ascorbate Sod/Karla AC [Arginaid Powder] 1 each PO BID 02/15/22 Ascorbic Acid [Vitamin C*] 500 mg PO BID 02/15/22 Codeine/APAP [Tylenol #3*] 1 tab PO Q6HP PRN 02/15/22 Fluocinonide/Emollient Base [Fluocinonide-E 0.05% Cream] 1 % TOP DAILY 02/15/22 Multivitamin with Minerals [Multivitamins with Minerals] 1 tab PO DAILY 02/15/22 Protein Supplement [Promod] 30 ml PO BID 02/15/22 Collagenase [Santyl Ointment*] 1 appl TOP DAILY 03/08/22 Famotidine [Pepcid] 20 mg PO DAILY 03/08/22 Gabapentin 300 mg PO TID 03/08/22 - Past Medical/Surgical History Diabetic: No -: Bipolar disorder -: Schizoaffective disorder -: COPD -: Chronic renal disease -: Hypertension -: Hypothyroidism -: Hyperlipidemia -: Dementia -: Chronic pain with neuropathy -: CKD (Dr. Fernando) -: Complete hysterectomy -: sb knee replacement Psychosocial/ Personal History: Patient currently lives at [facility]. - Family History Mother Medical History: Heart disease, Lung disease Notes: COPD Father Medical History: Heart disease, Diabetes Notes: quadruple bypass - Social History Smoking Status: Unknown if ever smoked Alcohol use: No CD- Drugs: No Caffeine use: Yes Place of Residence: Assisted Review of Systems is unable to be obtained Physical Examination Temp Pulse Resp BP Pulse Ox 100.2 F 112 H 13 91/68 100 03/09/22 09:07 03/09/22 09:07 03/09/22 09:07 03/09/22 09:07 03/09/22 09:07 General: Alert Respiratory: Clear to auscultation bilaterally, Diminished Cardiovascular: Normal S1 S2, Edema Gastrointestinal: Hypoactive - Problems (1) Refractory shock Current Visit: Yes Status: Acute Plan: Patient is 76 years of age multiple medical problems poor baseline functioning eluding COPD schizophrenia decubitus ulcers etc. patient is currently on a ventilator refractory shock on high doses of Levophed we will add corticosteroids. Boluses of fluids if needed add vasopressin chest x-ray is clear endotracheal tube satisfactory labs reviewed troponins elevated most likely from demand ischemia DC heparin risk for bleeding patient's prognosis is poor she is DNR renal function is worse continue with supportive therapy is on broad-spectrum antibiotics cultures are so far negative currently on 50% FiO2
[2022-03-09] MEDS: Meropenem 500 MG in NA CHLORIDE 0.9% 100 ML IV SCH (10:32)
--- NOTE | 2022-03-09 11:32 | EKG ---
Test Date: 2022-03-08 Test Time: 12:10:02 Calender Supervisor: NINA MEASUREMENT RESULTS: Intervals: Rate: 146 AR: QRSD: 110 QT: 320 QTc: 498 [place]: P: AR: QRS: -51 T: 95 INTERPRETIVE STATEMENTS: Supraventricular tachycardia Left axis deviation Low voltage QRS Septal infarct, age undetermined Abnormal ECG Compared to ECG 12/05/2021 17:53:18 Left-axis deviation now present Low QRS voltage now present Myocardial infarct finding now present Sinus rhythm no longer present Left anterior fascicular block no longer present Left ventricular hypertrophy no longer present Electronically Signed On 03-09-22 11:31:02 CDT by Cuba Sotelo
--- NOTE | 2022-03-09 11:32 | EKG ---
Test Date: 2022-03-08 Test Time: 08:41:36 Maintenance Repairer: ARMANDO MEASUREMENT RESULTS: Intervals: Rate: 61 DE: 116 QRSD: 94 QT: 374 QTc: 376 [place]: P: -38 DE: 116 QRS: -31 T: -79 INTERPRETIVE STATEMENTS: junctional rhythm Low voltage QRS Cannot rule out Anterior infarct, age undetermined ST & T wave abnormality, consider inferior ischemia Abnormal ECG Electronically Signed On 03-09-22 11:31:59 CDT by Cuba Sotelo
[2022-03-09] MEDS ORDERED: AMIODARONE HCL 150 MG in D5W 100 ML IV SCH (11:50)
[2022-03-09] MEDS ORDERED: AMIODARONE HCL 900 MG in Dextrose 5%-Water 482 ML IV SCH ×4 (12:00)
[2022-03-09] MEDS ORDERED: NA CHLORIDE 0.9% 1,000 ML IV SCH (13:00)
--- NOTE | 2022-03-09 13:10 | PN ---
Date of Progress Note: 03/09/2022 Subjective: The patient was seen and examined at bedside. She remains intubated. She is very oligu kong and not responding to IV fluids. She remains on Levophed and vasopressin is also being added for pressor support. Her vent settings have remained stable at this time and her family is at bedside. Physical Examination: Vital Signs: Showing temperature of 100.2, pulse rate of 109, respiratory rate of 13, blood pressure 109/81 on 2 pressors. HEENT: Atraumatic head. She is intubated. She is able to open her eyes, but she is not responding appropriately. Lungs: Auscultation of the lungs reveal bilateral equal air entry. Abdomen: Soft and nontender. Extremities: Showed no evidence of edema. Steele catheter with very minimal urine noted. Laboratory Data: Showing creatinine worsening to 2.34, sodium of 135 and potassium of 4.8. LFT was within normal limits. Troponin has been significantly elevated to 6784. Albumin was low at 1.5 and CBC showing worsening leukocytosis of 28.8, hemoglobin of 8.2, hematocrit of 25.1, and platelet count of 265. Current Medications: Have been reviewed in detail. Impression: 1.Acute renal failure secondary to ATN, oligoanuric ATN at this time. The patient is not a candidat e for dialysis given her advanced age and comorbidities. I have discussed this with her daughter at bedside who is a medical power of inspector integrated circuits. She agrees not to do dialysis at this time given her poo r prognosis. 2.Respiratory failure, likely secondary to aspiration pneumonia. The patient is currently on broad- spectrum antibiotics and is also on the ventilator. The patient is being managed by Pulmonary. 3.Septic shock secondary to possibly from infection. She remains on 2 pressors, which will be tried to be weaned down as tolerated. We will go ahead and get her started on normal saline and monitor h er closely. 4.Elevated troponin, likely secondary to non-ST segment elevation myocardial infarction from stress. Continue to monitor with conservative management at this time. 5.Anemia secondary to chronic disease. Continue to monitor CBC and transfuse p.r.n. 6.Hypercalcemia has resolved. VV/MODL Voice ID: [id number] Report ID: [id number]
[2022-03-09 13:24] VITALS: TEMP 99.5
[2022-03-09 13:28] VITALS: BP 61/17
--- NOTE | 2022-03-09 15:25 | P.DS ---
Admission Date: 03/08/22 Discharge Date: 03/09/22 Discharge Condition: Reason for Admission: Respiratory failure refractory septic shock Brief History of Present Illness: Patient is a 76-year-old female with a past medical history significant for dementia, hypothyroidism, HLD, GERD, bipolar disorder, COPD, CKD, chronic pain syndrome, hypertension, schizophrenia who presents with complaint of altered mental status. Patient is a resident of a group home. Patient currently intubated and unable to provide any history. Per nursing staff patient was noted to be unresponsive and difficult to arouse in the nursing facility. When patient became responsive she was noted to be confused and had respiratory distress. No other signs and symptoms reported. Symptoms are aggravated or relieved by nothing. Patient was brought to the hospital for medical evaluation. Hospital Course: Patient was admitted to the ICU for management of severe sepsis with shock and was started on broad-spectrum antibiotics and vasopressors. She was found to have significant sepsis warranting escalation of vasopressors and significantly her blood pressure continue to trend down. CODE STATUS and advance care discussed with family members and subsequently agreed to change her code status to DNR. Patient is DNR based on his clinical determination and her wish prior to present incident. He was deemed able to make decision based on his relationship with the patient. Over the course of her hospital, stay she had escalating need for adjustment of vasopressors and she was put on 2 pressors at maximum dose without significant improvement. She subsequently had cardiopulmonary arrest from severe sepsis with shock and she was pronounced at 3:03 PM today. family members and ICU attending informed. Vital Signs/Physical Exam: Temp Pulse Resp BP Pulse Ox 99.5 F 51 22 H 61/17 L 100 03/09/22 12:00 03/09/22 13:15 03/09/22 13:15 03/09/22 13:15 03/09/22 13:15 General: Other (No pupillary reflex or heart tones reported.) Laboratory Data at Discharge: WBC 20.80 K/uL (4.3-10.9) H* D 03/09/22 04:25 Hgb 8.2 g/dL (12.0-15.0) L 03/09/22 04:25 Hct 25.4 % (36.0-45.0) L 03/09/22 04:25 Plt Count Cancelled 03/09/22 04:30 PT 17.5 SECONDS (9.5-12.5) H 03/09/22 04:25 INR 1.58 03/09/22 04:25 APTT Cancelled 03/09/22 10:00 Sodium 135 mmol/L (136-145) L 03/09/22 04:25 Potassium 4.8 mmol/L (3.5-5.1) 03/09/22 04:25 BUN 67 mg/dL (7-18) H 03/09/22 04:25 Creatinine 2.34 mg/dL (0.55-1.3) H 03/09/22 04:25 Glucose 233 mg/dL (74-106) H 03/09/22 04:25 Phosphorus 2.9 mg/dL (2.5-4.9) 03/08/22 13:56 Magnesium 1.8 mg/dL (1.8-2.4) 03/08/22 13:56 Total Bilirubin 0.4 mg/dL (0.2-1.0) 03/09/22 04:25 AST 30 U/L (15-37) 03/09/22 04:25 ALT 12 U/L (12-78) 03/09/22 04:25 Alkaline Phosphatase 105 U/L (45-117) 03/09/22 04:25 Lipase 30 U/L (73-393) L 03/08/22 13:56 Home Medications: Donepezil HCl 10 mg PO BEDTIME 10/18/19 Levothyroxine Sodium 25 mcg PO 0630 10/18/19 Memantine HCl 10 mg PO BID 10/18/19 Ondansetron [Ondansetron Odt] 4 mg PO Q8H PRN 10/18/19 Topiramate 100 mg PO BID 10/18/19 Calcitrol [Rocaltrol*] 0.5 mcg PO DAILY #30 cap 02/22/20 ARIPiprazole [Abilify*] 5 mg PO DAILY 08/19/21 Aspirin 81 mg PO DAILY 08/19/21 Atorvastatin Calcium [Lipitor*] 20 mg PO DAILY 08/19/21 Docusate [Colace Cap*] 100 mg PO BID 08/19/21 Hydralazine [Apresoline*] 50 mg PO TID 08/19/21 Meloxicam [Mobic*] 15 mg PO DAILY 08/19/21 Propranolol [Inderal*] 40 mg PO DAILY 08/19/21 Trazodone [Desyrel*] 50 mg PO BEDTIME 08/19/21 Divalproex Sodium [Depakote Sprinkle] 250 mg PO BID 12/06/21 Duloxetine HCl [Drizalma Sprinkle] 60 mg PO ONCE 12/06/21 Acetaminophen [Tylenol] 650 mg PO Q6HP PRN 02/15/22 Arginine/Ascorbate Sod/Karla AC [Arginaid Powder] 1 each PO BID 02/15/22 Ascorbic Acid [Vitamin C*] 500 mg PO BID 02/15/22 Codeine/APAP [Tylenol #3*] 1 tab PO Q6HP PRN 02/15/22 Fluocinonide/Emollient Base [Fluocinonide-E 0.05% Cream] 1 % TOP DAILY 02/15/22 Multivitamin with Minerals [Multivitamins with Minerals] 1 tab PO DAILY 02/15/22 Protein Supplement [Promod] 30 ml PO BID 02/15/22 Collagenase [Santyl Ointment*] 1 appl TOP DAILY 03/08/22 Famotidine [Pepcid] 20 mg PO DAILY 03/08/22 Gabapentin 300 mg PO TID 03/08/22 Followup: NONE,NONE [Primary Care Provider] -
--- NOTE | 2022-03-09 16:07 | CON ---
Date of Consultation: 03/09/2022 Reason For Consultation: Altered mental status, elevated troponin, and renal failure. History Of Present Illness: Ms. Mason is a patient with the history of Alzheimer's, bipolar disord er, COPD, chronic diastolic congestive heart failure, parkinsonism, and dyslipidemia. Came in with a ltered mental status, respiratory failure, intubated. She was febrile, tachycardic, sinus tach. Cre atinine was 7.34. Her white count 20,000, hemoglobin of 8.2. She had UTI. Troponin was 6700. BNP was 17,779. No history reported, cardiac-armendariz. It is of note that I just did a heart catheterizatio n of Ms. Mason in December of 2021, and she had perfectly normal coronaries. Past Medical History: As stated above. Allergies: NONE. Review of Systems: Positive for being a DNR. Social History: Negative. Medications: Presently include aspirin, inhalers, heparin drip, Levophed, antibiotics, and steroids. Physical Examination: General: She is intubated. HEENT: Negative. Vital Signs: Stable. Temperature 100.2, sinus tachycardia of 112. HEENT: Negative. Neck: Supple with no bruit. Chest: Clear. Cardiac: Revealed tachycardia. No murmurs, gallops, or rubs. Abdomen: Benign. Extremities: Revealed no clubbing, cyanosis, or edema. Diagnostic Data: As stated earlier. Impression And Plan: 1.Elevated troponin and BNP secondary to sepsis and renal failure and anemia with demand ischemia. Normal heart catheterization in December of 2021. Another echocardiogram is pending, and I agree with th at. 2.Sepsis, hypotension, respiratory failure, intubated. 3.History of bipolar disorder. 4.History of Alzheimer's. 5.Do Not Resuscitate status. 6.History of chronic obstructive pulmonary disease. 7.History of parkinsonism. 8.Dyslipidemia. 9.History of chronic diastolic congestive heart failure. I agree with her present regimen. Echocardiogram is pending. I will continue to follow her. SU/MIGUEL ÁNGEL Voice ID: [id number] Report ID: [id number]
[2022-03-10] MEDS ORDERED: AMIODARONE HCL 900 MG in Dextrose 5%-Water 482 ML IV SCH (12:00)
--- NOTE | 2022-03-10 14:35 | EKG ---
Test Date: 2022-03-08 Test Time: 23:26:31 Deputy Sheriff Chief: RT-O MEASUREMENT RESULTS: Intervals: Rate: 105 TN: 192 QRSD: 128 QT: 326 QTc: 430 [place]: P: 72 TN: 192 QRS: -50 T: 98 INTERPRETIVE STATEMENTS: Sinus tachycardia Left axis deviation Nonspecific intraventricular block Cannot rule out Anterior infarct, age undetermined Abnormal ECG Compared to ECG 03/08/2022 12:10:02 Supraventricular tachycardia no longer present Myocardial infarct finding still present Electronically Signed On 03-10-22 14:31:34 CDT by Westley Najera
--- NOTE | 2022-03-11 12:51 | EKG ---
Test Date: 2022-03-08 Test Time: 16:25:03 Zone Maintenance Technician: ST MEASUREMENT RESULTS: Intervals: Rate: 113 [place]: QRSD: 102 QT: 338 QTc: 463 [place]: P: ND: QRS: -26 T: 47 INTERPRETIVE STATEMENTS: Accelerated Junctional rhythm Low voltage QRS Septal infarct, age undetermined Abnormal ECG Compared to ECG 03/08/2022 12:10:02 Accelerated junctional rhythm now present Supraventricular tachycardia no longer present Left-axis deviation no longer present Myocardial infarct finding still present Electronically Signed On 03-11-22 12:49:55 CDT by Westley Najera
== END 2022-03-09 17:12 | disposition expired | DRG 871 ==
LOC: ER 06:52 → ERHOLD 09:35 → 3RD-ICU 11:20
PROVIDERS: ADMIT Internal Medicine; ATTEND Internal Medicine
PROC: 06HY33Z Insertion of Infusion Device into Lower Vein, Percutaneous Approach (ICD-10-PCS; principal; 2022-03-08)
PROC: 3E033XZ Introduction of Vasopressor into Peripheral Vein, Percutaneous Approach (ICD-10-PCS; 2022-03-08)
PROC: 0BH17EZ Insertion of Endotracheal Airway into Trachea, Via Natural or Artificial Opening (ICD-10-PCS; 2022-03-08)
PROC: 5A1945Z Respiratory Ventilation, 24-96 Consecutive Hours (ICD-10-PCS; 2022-03-08)
DX: A41.9 Sepsis, unspecified organism (principal); R65.21 Severe sepsis with septic shock; J96.01 Acute respiratory failure with hypoxia; N17.0 Acute kidney failure with tubular necrosis; J69.0 Pneumonitis due to inhalation of food and vomit; I21.4 Non-ST elevation (NSTEMI) myocardial infarction; N39.0 Urinary tract infection, site not specified; E87.0 Hyperosmolality and hypernatremia; J44.1 Chronic obstructive pulmonary disease with (acute) exacerbation; I13.0 Hypertensive heart and chronic kidney disease with heart failure and stage 1 through stage 4 chronic kidney disease, or unspecified chronic kidney disease; I50.32 Chronic diastolic (congestive) heart failure; Z16.24 Resistance to multiple antibiotics; E78.5 Hyperlipidemia, unspecified; E03.9 Hypothyroidism, unspecified; F31.9 Bipolar disorder, unspecified; G89.4 Chronic pain syndrome; N18.32 Chronic kidney disease, stage 3b; E83.52 Hypercalcemia; D63.8 Anemia in other chronic diseases classified elsewhere; F03.90 Unspecified dementia, unspecified severity, without behavioral disturbance, psychotic disturbance, mood disturbance, and anxiety; F20.9 Schizophrenia, unspecified; R53.81 Other malaise; R53.1 Weakness; R57.8 Other shock; I46.9 Cardiac arrest, cause unspecified; G20 Parkinson's disease; I48.0 Paroxysmal atrial fibrillation; K21.9 Gastro-esophageal reflux disease without esophagitis; L89.152 Pressure ulcer of sacral region, stage 2; B96.4 Proteus (mirabilis) (morganii) as the cause of diseases classified elsewhere; Z66 Do not resuscitate; Z96.653 Presence of artificial knee joint, bilateral; Z20.822 Contact with and (suspected) exposure to COVID-19
CPT/HCPCS: 31500; 36415; 71045; 76770; 80048; 80053; 80076; 81001; 81003; 81015; 82805; 82947; 83605; 83690; 83735; 83880; 84100; 84439; 84443; 84484; 85025; 85610; 85730; 87040; 87070; 87077; 87086; 87088; 87186; 87205; 87804; 93005; 94002; 94003; 94640; 99291; C9113; J0282; J0330; J1644; J1650; J1720; J2250; J2543; J2920; J3370; J7030; J7040; J7050; J7060; U0003